=== PATIENT | female | born 1970 | race Caucasian/White ===

== ENCOUNTER 2016-05-24 16:47 | Emergency (ER) | payer MEDICAID ==
[~2016-05-24] VITALS: Ht 167.6 cm; Wt 131.5 kg
[~2016-05-24 16:47] MED LIST: ACHD5005 PO; AMBIEN PO; AMIT25TA9 PO; AMITRIPTYLINE PO; AMLO5TAB5 PO; ANXIETY MED; ATIVAN; AZIT-21 PO; BENZ100C18 PO; CELEXA PO; CEPH-38 PO; CEPH-507 PO; CEPH500C PO; CEPH500T PO; CITA10TA70 PO; CLIN300C3 PO; CLN150C PO; CLON0.5T60 PO; CLON1TAB36 PO; CYCL10TA45 PO; CYCL10TA9 PO; DICY20TA57 PO; DOXY100C2 PO; ESCI20TA2 PO; FLUC200T45 PO; FLUO20CA25 PO; FURO-124 PO; GABA600T2 PO; GNT.3OO351 OS; GUAI100L73; GUAI118L10 PO; HORMONE; HYDR-229 PO; HYDR-2890 PO; HYDR-3061 PO; HYDR-34; HYDR-34 PO; HYDR-3714 PO; HYDR-3720 PO; HYDR-3816 PO; HYDR-757 PO; HYDR118S10 PO; HYDR1CAP2 PO; HYDR1TAB PO; HYDR1TAB8 OP; HYOS0.1283 SL; IBUP-1780; KETO75CA PO; MELO7.5T PO; METR500T PO; MINO50CA2 PO; MIRT15TA6 PO; MPR22T TP; MUSCLE RELAXANT; NAPR-243 PO; NAPR220T66; NAPR550T PO; NF-ESOM40C PO; OLN5T PO; ONDA4TAB8 PO; ONDAN4ODT PO; OXYC-12; OXYC-12 PO; PARO20TA4 PO; POTA-51 PO; PRD20T PO; PROZA; QUET25TA33 PO; SULF-222 PO; SULF1TAB23 PO; SULF1TAB34; SULF1TAB35; SULF1TAB35 PO; SULF1TAB38 PO; SULF1TAB7 PO; TIZA4TAB55 PO; TRAM50TA2; TRAM50TA2 PO; TRAZ-144 PO; TRAZ150T42; TRAZODONE; TRM50T PO; [UNRECOGNIZED DRUG - OTHER]
[2016-05-24] MEDS ORDERED: TRIM/SULFAMETH 160/800 (SEPTRA DS) TAB PO STA (18:07)
[2016-05-24] MEDS ORDERED: RX-MUPIROCIN (BACTROBAN) 2% OINT 22 GM TUBE TOP STA (18:07)
[2016-05-24] MEDS ORDERED: LIDOCAINE/EPI 1%-1:100,000 (XYLOCAINE) 20ML INJ STA (18:12)
--- NOTE | 2016-05-24 18:18 | ED Integumentary General ---
General Chief Complaint: Skin/Wound Problems Stated Complaint: R HAND SPLINTER/REDNESS Nursing Triage Note: Pt reports she was reaching in her garbage disposal to get something and some tiny pieces of metal got stuck in her hand. There is an area on the dorsal side of pts hand that is reddened. She states she believes she still has a piece of metal stuck in it. Source: patient Exam Limitations: no limitations (ARLENE MCDONALD MD) History of Present Illness Time seen by provider: 17:50 Initial Comments Here with complaint of right hand dorsum pain at the webspace between the in the index finger. She was digging something out of the garbage disposal and states that she got metal in her hand. She reports taking 2 pieces of metal out already but the wound is getting worse. This occurred over the last few days. There is local area redness and pain. Timing/Duration: getting worse, other Severity: moderate Location: hands Possible Cause: other (foreign body) Associated Symptoms: change in skin texture edema swelling/mass/lumps ( ARLENE MCDONALD MD) Allergies and Home Medications Allergies Coded Allergies: Penicillins (Unverified Allergy, Mild, 03/26/08) dimenhydrinate (Verified Allergy, Mild, 07/17/12) morphine (Unverified Allergy, Mild, RASH, 08/29/08) prochlorperazine (Unverified Allergy, Mild, 07/23/09) oxycodone (Unverified Allergy, Unknown, 05/14/10) Uncoded Allergies: ANTI-EMETICS (Allergy, Mild, 03/26/08) ANTI-NAUSEA MEDICATIONS EXCEPT DRAMAMINE (Allergy, Mild, MAKE HER HAVE ANXIETY ATTACKS, 08/29/08) ANTIEMETICS (Allergy, Mild, 12/09/08) NAUSEA MEDS (Allergy, Mild, 12/01/08) Home Medications Amlodipine Besylate 5 Mg Tablet 5 MG PO DAILY (Reported) Cephalexin 500 Mg Capsule #15 500 MG PO TID Prescribed by: TAE CUNHA on 09/17/151851 Cephalexin 500 Mg Tablet #20 500 MG PO QID Prescribed by: ARLENE MCDONALD on 02/02/162004 Cephalexin Monohydrate 500 Mg Capsule #21 1 EACH PO TID Prescribed by: TAE CUNHA on 10/20/142012 Clindamycin Hcl 300 Mg Capsule #40 1 EACH PO Q6HR Prescribed by: SOMMER DU on 10/30/142144 Furosemide 40 Mg Tablet #6 40 MG PO BID Prescribed by: SOMMER DU on 08/01/152316 Gabapentin 600 Mg Tablet #90 600 MG PO TID (Reported) Hyoscyamine Sulfate 0.125 Mg Tab.subl #15 1-2 TAB SL Q4H Prescribed by: MARTHA CHASE on 02/25/15 232 Ibuprofen 800 Mg Tablet #90 (Reported) Naproxen Sodium 550 Mg Tablet #10 550 MG PO BID PRN PRN PAIN Prescribed by: WILLIE STEPHENSON on 12/20/141826 Paroxetine Hcl 20 Mg Tablet #30 20 MG PO DAILY (Reported) Potassium Chloride 20 Meq Tablet.er #3 20 MEQ PO DAILY Prescribed by: SOMMER DU on 08/01/152316 Sulfamethoxazole/Trimethoprim 1 Each Tablet #14 1 EACH PO BID Prescribed by: ARLENE MCDONALD on 02/12/161822 Sulfamethoxazole/Trimethoprim 1 Each Tablet #14 1 EACH PO BID Prescribed by: ARLENE MCDONALD on 05/24/16 182 Tizanidine Hcl 4 Mg Tablet #90 4 MG PO TID (Reported) Trazodone Hcl 50 Mg Tablet 50 MG PO HS (Reported) Trazodone Hcl 150 Mg Tablet #30 (Reported) Constitutional: see HPINo chills, No fever Respiratory: no symptoms reported Cardiovascular: no symptoms reported Skin: see HPI change in color lesions (ARLENE MCDONALD MD) Past Xyjskvr-Frqvha-Rbnyhx Hx Patient Social History Alcohol Use: Denies Use Recreational Drug Use: No Smoking Status: Current Everyday Smoker Type Used: Cigarettes Recent Foreign Travel: No Contact w/Someone Who Travel: No Recent Infectious Disease Expo: No Recent Hopitalizations: Yes (SEE PREV SURGERIES) Physical Abuse Screen: No Sexual Abuse: No (ARLENE MCDONALD MD) Immunizations Up To Date Tetanus Booster (TDap): Less than 5yrs Date of Pneumonia Vaccine: Jul 26, 2012 Date of Influenza Vaccine: Feb 13, 2014 (ARLENE MCDONALD MD) Seasonal Allergies Seasonal Allergies: No (ARLENE MCDONALD MD) Surgeries HX Surgeries: Yes (LUNG SURGERY FOR EMPYEMA, LEFT OVARIAN CYST REMOVAL) Surgeries: Appendectomy, Section, Hysterectomy, Oophorectomy, Tonsillectomy (ARLENE MCDONALD MD) Respiratory Hx Respiratory Disorders: Yes Respiratory Disorders: Asthma (ARLENE MCDONALD MD) Cardiovascular Hx Cardiac Disorders: Yes Cardiac Disorders: Hypertension (ARLENE MCDONALD MD) Neurological Hx Neurological Disorders: No (ARLENE MCDONALD MD) Reproductive System Hx Reproductive Disorders: Yes (MULTIPLE OVARIAN CYSTS. 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 (ARLENE MCDONALD MD) Genitourinary Hx Genitourinary Disorders: No (ARLENE MCDONALD MD) Gastrointestinal Hx Gastrointestinal Disorders: Yes Gastrointestinal Disorders: Gastroesophageal Reflux, Irritable Bowel (ARLENE MCDONALD MD) Musculoskeletal Hx Musculoskeletal Disorders: Yes Musculoskeletal Disorders: Degenerate Disk Disease, Chronic Back Pain (ARLENE MCDONALD MD) Endocrine Hx Endocrine Disorders: No (ARLENE MCDONALD MD) HEENT HX ENT Disorders: Yes (WEARS GLASSES) (ARLENE MCDONALD MD) Cancer Hx Cancer: No (ARLENE MCDONALD MD) Psychosocial Hx Psychiatric Problems: Yes Behavioral Health Disorders: Sleep Difficulties, Depression (ARLENE MCDONALD MD) Integumentary HX Skin/Integumentary Disorder: Yes (ABSCESSES, MULTIPLE WOUND INFECTIONS, STAPH) (ARLENE MCDONALD MD) Blood Transfusions Hx Blood Disorders: No (ARLENE MCDONALD MD) Reviewed Nursing Assessment Reviewed/Agree w Nursing PMH: Yes (ARLENE MCDONALD MD) Family Medical History Significant Family History: No Pertinent Family Hx Family Medial History: Diabetes mellitus 19 MOTHER Headache disorder G8 SISTER Myocardial infarction 19 MOTHER STROKE 19 MOTHER (ARLENE MCDONALD MD) Family Medial History: Diabetes mellitus 19 MOTHER Headache disorder G8 SISTER Myocardial infarction 19 MOTHER STROKE 19 MOTHER (SOMMER DU) Physical Exam Vital Signs Vital Sign - Last 12Hours 05/24/16 17:43 Temp 98.9 Pulse 115 Resp 20 B/P 138/76 Pulse Ox 96 O2 Delivery Room Air (SOMMER DU) Vital Signs Capillary Refill : Less Than 3 Seconds (ARLENE MCDONALD MD) General Appearance: WD/WN no apparent distress Cardiovascular: regular rate, rhythm no murmur Respiratory: lungs clear normal breath sounds Extremities: normal range of motion swelling (right hand dorsum at with thumb and first finger) Skin: warm/dry Skin Problem Location: upper extremities (right hand) Skin Problem Character: erythema, lesion, swelling, tenderness, warm (ARLENE MCDONALD MD) I&D : Site: rt hand Blade Size: 11 I & D Procedure: betadine prep sterile drapes applied sterile dressing applied Progress 2x0.5 cm elliptical incision made to completely excise wound and foreign body. Small sharp metallic foreign body removed w/o difficulty. Skin edges reapproximated with 4-0 Ethilon suture. Blood loss minimal. Patient tolerated the procedure well. (SOMMER DU) Laceration Repair : Suture Size: 4-0 (ARLENE MCDONALD MD) Progress/Results/Core Measures Results/Orders My Orders Orders-SOMMER DU Hand, Right, 2 Views (05/24/16 19:42) (SOMMER DU) Vital Signs/I&O Vital Sign - Last 12Hours 05/24/16 05/24/16 05/24/16 17:43 19:28 20:03 Temp 98.9 98.9 98.9 Pulse 115 102 Resp 20 20 B/P 138/76 Pulse Ox 96 96 O2 Delivery Room Air (SOMMER DU) Blood Pressure Mean: 96 Progress Note : Progress Note Seen and evaluated. X-ray right hand. Foreign body noted. Incision and drainage as well as foreign body evaluation by Sommer ROSALES. Bactrim DS one tab by mouth. Mupirocin ointment over wound and Band-Aid. Discharged home with return precautions. Patient verbalize understanding instructions and agreement with plan. (ARLENE MCDONALD MD) Diagnostic Imaging Diagonstic Imaging: Xray Plain Films/CT/US/NM/MRI: hand Comments VIA [facility]. [place], [place] NAME: PAULA SALAZAR MED REC#: [id number] PT STATUS: REG ER : 1970 PHYSICIAN: ARLENE MCDONALD MD ADMIT DATE: 05/24/16/ER Draft Date of Exam:05/24/16 HAND, RIGHT, 3 VIEWS INDICATION: Metallic foreign body COMPARISON: None FINDINGS: Three views of the right hand demonstrate a metallic foreign body adjacent to the first metacarpal. There is no bony involvement. No soft tissue gas. IMPRESSION: Metallic foreign body. Dictated on workstation # [id number] Dict: 05/24/16 1809 Trans: 05/24/16 1816 JACKSON [id number] Interpreted by: STEPHANIE RICK Electronically signed by: (ARLENE MCDONALD MD) Diagonstic Imaging: Xray Plain Films/CT/US/NM/MRI: hand (post FB removal) Comments IMPRESSION: The small foreign body in the soft tissues of the first metacarpal seen previously has been removed. There is no acute abnormality identified. Dictated by: Dictated on workstation # [id number] Reviewed: Reviewed by Me (radiology report reviewed) (SOMMER DU) Departure Communication Progress Notes Diagnostic findings discussed with the patient. Proceed with discharge to home. (SOMMER DU) Impression Impression: Primary Impression: Foreign body of skin of hand Qualified Code: S60.551A - Superficial foreign body of right hand, 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 Additional Impression: Cellulitis of hand, right Disposition: HOME, SELF-CARE Condition: Improved Departure-Patient Inst. Decision time for Depature: 18:20 (ARLENE MCDONALD MD) Referrals: [facility] (PCP/Family) Primary Care Physician Patient Instructions: Cellulitis (Skin Infection), Child (DC) Add. Discharge Instructions: All discharge instructions reviewed with patient and/or family. Voiced understanding. Take medications as directed. Use antibiotic ointment over wound twice daily for the next week. Cover wound with a Band-Aid. Follow-up with your Dr. in a few days for recheck. Return for worse pain, swelling, red streaks up the hand or arm, fever or other concerns as needed. Scripts Sulfamethoxazole/Trimethoprim (Sulfamethoxazole-Tmp Ds Tablet)1 Each Tablet1 Each PO BID #14 TAB Prov:ARLENE MCDONALD MD 05/24/16 Images Extremities-Upper 1 - Erythema and swelling (ARLENE MCDONALD MD) ARELNE MCDONALD MD May 24, 2016 18:18 SOMMER DU May 24, 2016 19:02
[2016-05-24] MEDS ORDERED: SULF-222 PO (18:22)
[2016-05-24 20:03] VITALS: BP 128/72
--- NOTE | 2016-05-24 20:11 | Diagnostic Imaging Report ---
Right hand. INDICATION: Foreign body. 2 views were obtained. FINDINGS: The exam performed earlier today noted a small metallic foreign body in the soft tissues adjacent to the first metacarpal. Reportedly, in the interval since exam, the metallic foreign body has been removed. On this exam, there is no sign of a radiopaque foreign body. There is no fracture or acute bony abnormality identified and the overall appearance of the hand is otherwise unchanged. IMPRESSION: The small foreign body in the soft tissues of the first metacarpal seen previously has been removed. There is no acute abnormality identified. Dictated by: Dictated on workstation # [id number]
[2016-07-22] MEDS ORDERED: SULF1TAB35 PO (20:15)
== END 2016-05-24 20:03 | disposition home or self-care (01) ==
LOC: EDUNIT# 16:47 → ER 16:48
DX: S60.551A Superficial foreign body of right hand, 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 (principal); L03.113 Cellulitis of right upper limb; W22.8XXA Striking against or struck by other objects, 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; Y92.010 Kitchen of single-family (private) house as the place of occurrence of the external cause; Y93.E9 Activity, other interior property and clothing maintenance; Y99.8 Other external cause status
CPT/HCPCS: 73120; 73130

== ENCOUNTER 2016-06-07 22:57 | Observation (INO) | payer MEDICAID ==
[~2016-06-07] VITALS: Ht 167.6 cm; Wt 137.4 kg
[2016-06-07] MEDS ORDERED: LACTATED RINGERS 1,000 ML IV ONE (23:07)
[2016-06-07] MEDS ORDERED: LORazepam INJ 2 MG/ML (ATIVAN) VIAL ONE (23:15)
[2016-06-07 23:19] LABS: BASOPHILS # (AUTO) 0.1 10^3/uL (0.0-0.1); BASOPHILS % (AUTO) 1 % (0-10); EOSINOPHILS # (AUTO) 0.3 10^3/uL (0.0-0.3); EOSINOPHILS % (AUTO) 2 % (0-10); LYMPHOCYTES # (AUTO) 4.2 X 10^3 (1.0-4.0); LYMPHOCYTES % (AUTO) 31 % (12-44); MEAN CORPUSCULAR HEMOGLOBIN 25 PG (25-34); MEAN CORPUSCULAR HGB CONC 31 G/DL (32-36); MEAN CORPUSCULAR VOLUME 81 FL (80-99); MEAN PLATELET VOLUME 10.8 FL (7.4-10.4); MONOCYTES # (AUTO) 1.5 X 10^3 (0.0-1.0); MONOCYTES % (AUTO) 11 % (0-12); NEUTROPHILS # (AUTO) 7.3 X 10^3 (1.8-7.8); NEUTROPHILS % (AUTO) 54 % (42-75); PLATELET COUNT 370 10^3/uL (130-400); RED BLOOD COUNT 5.18 10^6/uL (4.35-5.85); RED CELL DISTRIBUTION WIDTH 18.7 % (10.0-14.5); WHITE BLOOD COUNT 13.5 10^3/uL (4.3-11.0)
[2016-06-07] MEDS ORDERED: LORazepam INJ 2 MG/ML (ATIVAN) VIAL IVP ONE (23:30)
[2016-06-07 23:39] LABS: ALANINE AMINOTRANSFERASE 26 U/L (0-55); ALBUMIN 4.4 G/DL (3.2-4.5); ANION GAP 20 MMOL/L (5-14); ASPARTATE AMINO TRANSFERASE 23 U/L (5-34); BILIRUBIN,TOTAL 0.2 MG/DL (0.1-1.0); BLOOD UREA NITROGEN 12 MG/DL (7-18); BUN/CREATININE RATIO 11; CALCIUM 9.6 MG/DL (8.5-10.1); CARBON DIOXIDE 16 MMOL/L (21-32); CHLORIDE 102 MMOL/L (98-107); CREATINE KINASE 95 U/L (29-168); CREATININE SERUM 1.09 MG/DL (0.60-1.30); GFR ESTIMATED 55; GLUCOSE 110 MG/DL (70-105); MAGNESIUM 2.1 MG/DL (1.8-2.4); POTASSIUM 3.7 MMOL/L (3.6-5.0); SALICYLATE < 5.0 MG/DL (5.0-20.0); SODIUM 138 MMOL/L (135-145); TOTAL PROTEIN 7.7 G/DL (6.4-8.2)
[2016-06-07 23:50] LABS: BILIRUBIN,URINE NEGATIVE (NEGATIVE); KETONES,URINE NEGATIVE (NEGATIVE); LEUKOCYTE ESTERASE ,URINE NEGATIVE (NEGATIVE); NITRITE,URINE NEGATIVE (NEGATIVE); PH,URINE 6 (5-9); PROTEIN,URINE NEGATIVE (NEGATIVE); UROBILINOGEN,URINE NORMAL (NORMAL)
[2016-06-07 23:51] LABS: SQUAMOUS EPITHELIAL CELL,UR RARE /HPF
--- NOTE | 2016-06-07 23:54 | ED General ---
General Chief Complaint: Neuro-Stroke Like Symptoms Stated Complaint: DIZZINESS Nursing Triage Note: PT TO ED ROOM 6 PER EMS AT 2305 WITH C/O DIZZINESS, FALLS. PT HAD APPROX 20 SECOND SEIZURE ONCE ON THE ED BED. VSS. DR CHASE AT BEDSIDE. Nursing Sepsis Screen: No Definite Risk Source of Information: EMS, Old Records (ALL PMH IS FROM OLD RECORDS, PT IS UNABLE TO TALK AT THIS TIME) Exam Limitations: Other (PT UNABLE TO GIVE ANY INFORMATION) History of Present Illness Time Seen by Provider: 22:59 Initial Comments PT ARRIVES VIA EMS FROM HOME PER EMS, PT WENT TO THE KITCHEN AND "BLACKED OUT" ( NOT WITNESSED), THEN GOT UP AND WENT TO THE BATHROOM AND "BLACKED OUT" AGAIN "FOR A COUPLE OF SECONDS" ( AGAIN NOT WITNESSED, BUT THIS IS WHAT PT TOLD EMS STAFF) THEN APPARENTLY PT HAD A POSSIBLE SEIZURE WITNESSED BY DAUGHTER, UNKNOWN DURATION. NO HISTORY OF SYNCOPE OR SEIZURES NO APPARENT INJURIES FROM THESE EPISODES PT HAS BEEN "SHAKING AND STUTTERING" FOR THE LAST 2 DAYS PT WAS STARTED ON A NEW MUSCLE RELAXANT "3 DAYS AGO" PER PT--EMS BRINGS IN A BOTTLE OF ORPHENADRINE 100 MG ER DATED 05/25/16 FOR #56 IS EMPTY ( 30 PILLS UNACCOUNTED FOR) , WHICH IS PT'S NEW MEDICATION FOR CHRONIC BACK PAIN OTHER BOTTLES BROUGHT IN WITH PT SHOW 8 SEROQUEL AND 5 NORTRIPTYLINE UNACCOUNTED FOR WELL PT HAS A BOTTLE OF CLONIDINE FOR #90 TO BE TAKEN TID, WRITTEN ON 06/02/16--ONLY 7 PILLS LEFT IN BOTTLE ( 72 PILLS UNACCOUNTED FOR) EMPTY BOTTLE OF CLONAZEPAM #30 WRITTEN ON 05/05/17--NO NEW BOTTLE HAS BEEN BROUGHT IN WITH PT, SO HAS BEEN OUT OF IT FOR AT LEAST 2 DAYS NO OTHER INFORMATION IS AVAILABLE. 14 Y.O. DAUGHTER ARRIVES WITH PT BUT CANNOT OFFER ANY OTHER RELEVANT INFORMATION 2300--PT HAVING FULL TONIC-CLONIC SEIZURE, LASTING 20 SECONDS PT IS POST ICTAL WITH SNOROUS BREATHING. O2/NC AT 2L PLACED ON PT. NO CYANOSIS OR HYPOXIA NOTED. 2309--PT AWAKE, BUT IS POST ICTAL, IS NOT TALKING OR ANSWERING QUESTIONS, AND IS NOT FOLLOWING COMMANDS, APPEARS CONFUSED. GENERALIZED TREMULOUSNESS RESUMES, BUT PT REMAINS AWAKE. PCP: [facility], FULLERETTE LONNIE MADL Allergies and Home Medications Allergies Coded Allergies: Penicillins (Unverified Allergy, Mild, 03/26/08) dimenhydrinate (Verified Allergy, Mild, 07/17/12) morphine (Unverified Allergy, Mild, RASH, 08/29/08) prochlorperazine (Unverified Allergy, Mild, 07/23/09) oxycodone (Unverified Allergy, Unknown, 05/14/10) Uncoded Allergies: ANTI-EMETICS (Allergy, Mild, 03/26/08) ANTI-NAUSEA MEDICATIONS EXCEPT DRAMAMINE (Allergy, Mild, MAKE HER HAVE ANXIETY ATTACKS, 08/29/08) ANTIEMETICS (Allergy, Mild, 12/09/08) NAUSEA MEDS (Allergy, Mild, 12/01/08) Home Medications Amlodipine Besylate 5 Mg Tablet 5 MG PO DAILY (Reported) Cetirizine HCl 10 Mg Tab.chew 10 MG PO DAILY (Reported) Clonazepam 1 Mg Tablet 1 MG PO DAILY (Reported) Clonidine HCl 0.1 Mg Tablet 0.1 MG PO TID (Reported) Gabapentin 600 Mg Tablet #90 600 MG PO TID (Reported) Hydrochlorothiazide 25 Mg Tablet 25 MG PO DAILY (Reported) Lovastatin 20 Mg Tablet 20 MG PO DAILY (Reported) Meloxicam 15 Mg Tablet 15 MG PO DAILY (Reported) Nortriptyline HCl 50 Mg Capsule 50 MG PO DAILY (Reported) Omeprazole 40 Mg Capsule.dr 40 MG PO DAILY (Reported) Orphenadrine Citrate 100 Mg Tablet.er 100 MG PO BID (Reported) Paroxetine HCl 40 Mg Tablet 40 MG PO DAILY (Reported) Quetiapine Fumarate 100 Mg Tablet 100 MG PO BID (Reported) Quetiapine Fumarate 300 Mg Tablet 300 MG PO HS (Reported) Constitutional: see HPI (PT UNABLE TO GIVE ANY INFORMATION) Psychiatric/Neurological: See HPI Past Roswmqc-Fidvor-Gkrxjf Hx Patient Social History Type Used: Cigarettes Recent Foreign Travel: No Contact w/Someone Who Travel: No Recent Infectious Disease Expo: No Recent Hopitalizations: No Immunizations Up To Date Tetanus Booster (TDap): Less than 5yrs Date of Pneumonia Vaccine: Jul 26, 2012 Date of Influenza Vaccine: Feb 13, 2014 Seasonal Allergies Seasonal Allergies: No Surgeries HX Surgeries: Yes (LUNG SURGERY FOR EMPYEMA, LEFT OVARIAN CYST REMOVAL; HYST/ BSO) Surgeries: Appendectomy, Section, Hysterectomy, Oophorectomy, Tonsillectomy Respiratory Hx Respiratory Disorders: Yes (EMPYEMA--S/P LUNG SURGERY FOR REMOVAL) Respiratory Disorders: Asthma Cardiovascular Hx Cardiac Disorders: Yes Cardiac Disorders: Hypertension Neurological Hx Neurological Disorders: No Reproductive System Hx Reproductive Disorders: Yes (MULTIPLE OVARIAN CYSTS. 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 Genitourinary Hx Genitourinary Disorders: No Gastrointestinal Hx Gastrointestinal Disorders: Yes Gastrointestinal Disorders: Gastroesophageal Reflux, Irritable Bowel Musculoskeletal Hx Musculoskeletal Disorders: Yes Musculoskeletal Disorders: Degenerate Disk Disease, Chronic Back Pain Endocrine Hx Endocrine Disorders: Yes (MORBID OBESTIY) HEENT HX ENT Disorders: Yes (WEARS GLASSES) Cancer Hx Cancer: No Psychosocial Hx Psychiatric Problems: Yes Behavioral Health Disorders: Sleep Difficulties, Anxiety, Depression Integumentary HX Skin/Integumentary Disorder: Yes (ABSCESSES, MULTIPLE WOUND INFECTIONS, STAPH) Blood Transfusions Hx Blood Disorders: No Family Medical History Significant Family History: No Pertinent Family Hx Family Medial History: Diabetes mellitus 19 MOTHER Headache disorder G8 SISTER Myocardial infarction 19 MOTHER STROKE 19 MOTHER Physical Exam Vital Signs Vital Sign - Last 12Hours 06/07/16 06/07/16 23:05 23:35 Pulse 67 Resp 18 Pulse Ox 96 O2 Delivery Nasal Cannula O2 Flow Rate 2 Capillary Refill : Less Than 3 Seconds General Appearance: Obese (MORBIDLY) Other (GENERALIZED TREMORS, BUT PT ABLE TO ASSIST IN TRANSFERRING FROM EMS CART TO ER CART, AND PT ABLE TO ADJUST SELF ON ER CART ON HER OWN. PT'S HEAD IS COMPLETELY SHAVED. ) HEENT: PERRL/EOMI Respiratory: Normal Breath Sounds No Accessory Muscle Use No Respiratory Distress Cardiovascular: Regular Rate, Rhythm No Murmur Gastrointestinal: Soft Extremity: No Pedal Edema Neurologic/Psychiatric: Other (GENERALIZED TONIC-CLONIC SEIZURE SOON PT ARRIVES WITH TYPICAL POST ICTAL SYMPTOMS/COURSE) Skin: Normal Color Warm/Dry Laceration Repair : Suture Size: 4-0 Progress/Results/Core Measures Results/Orders Lab Results Laboratory Tests Test 06/07/16 23:10 06/07/16 23:20 Range/Units Acetaminophen Level < 10 L 10-30 UG/ML Alanine Aminotransferase (ALT/SGPT) 26 0-55 U/L Albumin 4.4 3.2-4.5 G/DL Alkaline Phosphatase 141 H 40-136 U/L Anion Gap 20 H 5-14 MMOL/L Aspartate Amino Transf (AST/SGOT) 23 5-34 U/L BUN/Creatinine Ratio 11 Basophils # (Auto) 0.1 0.0-0.1 10^3/uL Basophils (%) (Auto) 1 0-10 % Blood Urea Nitrogen 12 7-18 MG/DL Calcium Level 9.6 8.5-10.1 MG/DL Carbon Dioxide Level 16 L 21-32 MMOL/L Chloride Level 102 98-107 MMOL/L Creatine Kinase MB 0.7 <6.6 NG/ML Creatinine 1.09 0.60-1.30 MG/DL Eosinophils # (Auto) 0.3 0.0-0.3 10^3/uL Eosinophils (%) (Auto) 2 0-10 % Estimat Glomerular Filtration Rate 55 Glucose Level 110 H 70-105 MG/DL Hematocrit 42 35-52 % Hemoglobin 12.8 11.5-16.0 G/DL Lymphocytes # (Auto) 4.2 H 1.0-4.0 X 10^3 Lymphocytes (%) (Auto) 31 12-44 % Magnesium Level 2.1 1.8-2.4 MG/DL Mean Corpuscular Hemoglobin 25 25-34 PG Mean Corpuscular Hemoglobin Concent 31 L 32-36 G/DL Mean Corpuscular Volume 81 80-99 FL Mean Platelet Volume 10.8 H 7.4-10.4 FL Monocytes # (Auto) 1.5 H 0.0-1.0 X 10^3 Monocytes (%) (Auto) 11 0-12 % Neutrophils # (Auto) 7.3 1.8-7.8 X 10^3 Neutrophils (%) (Auto) 54 42-75 % Platelet Count 370 130-400 10^3/uL Potassium Level 3.7 3.6-5.0 MMOL/L Red Blood Count 5.18 4.35-5.85 10^6/uL Red Cell Distribution Width 18.7 H 10.0-14.5 % Salicylates Level < 5.0 L 5.0-20.0 MG/DL Serum Alcohol < 10 <10 MG/DL Serum Test, Qualitative NEGATIVE NEGATIVE Sodium Level 138 135-145 MMOL/L TSH [place] Testing 3.07 0.35-4.94 UIU/ML Total Bilirubin 0.2 0.1-1.0 MG/DL Total Creatine Kinase 95 29-168 U/L Total Protein 7.7 6.4-8.2 G/DL Troponin I < 0.30 <0.30 NG/ML White Blood Count 13.5 H 4.3-11.0 10^3/uL Ur Tricyclic Antidepressants Screen POSITIVE H NEGATIVE Urine Amphetamines Screen NEGATIVE NEGATIVE Urine Bacteria NEGATIVE /HPF Urine Barbiturates Screen NEGATIVE NEGATIVE Urine Benzodiazepines Screen NEGATIVE NEGATIVE Urine Bilirubin NEGATIVE NEGATIVE Urine Cannabinoids Screen NEGATIVE NEGATIVE Urine Casts NONE /LPF Urine Clarity CLEAR Urine Cocaine Screen NEGATIVE NEGATIVE Urine Color YELLOW Urine Crystals NONE /LPF Urine Culture Indicated NO Urine Glucose (UA) NEGATIVE NEGATIVE Urine Ketones NEGATIVE NEGATIVE Urine Leukocyte Esterase NEGATIVE NEGATIVE Urine Methadone Screen NEGATIVE NEGATIVE Urine Methamphetamines Screen NEGATIVE NEGATIVE Urine Mucus NEGATIVE /LPF Urine Nitrite NEGATIVE NEGATIVE Urine Opiates Screen NEGATIVE NEGATIVE Urine Oxycodone Screen NEGATIVE NEGATIVE Urine Phencyclidine Screen NEGATIVE NEGATIVE Urine Propoxyphene Screen NEGATIVE NEGATIVE Urine Protein NEGATIVE NEGATIVE Urine RBC NONE /HPF Urine RBC (Auto) NEGATIVE NEGATIVE Urine Specific [place] 1.010 L 1.016-1.022 Urine Squamous Epithelial Cells RARE /HPF Urine Urobilinogen NORMAL NORMAL MG/DL Urine WBC NONE /HPF Urine pH 6 5-9 My Orders Orders-MARTHA CHASE DO Saline Lock/Iv-Start (06/07/16 23:07) Ekg Tracing (06/07/16 23:07) Catheter(Urinary) Insert & Ass 03,15 (06/07/16 23:07) O2 (06/07/16 23:07) Monitor-Rhythm Ecg Trace Only (06/07/16 23:07) Ct Head Wo (06/07/16 23:07) Acetaminophen (06/07/16 23:07) Alcohol (06/07/16 23:07) Cbc With Automated Diff (06/07/16 23:07) Comprehensive Metabolic Panel (06/07/16 23:07) Creatine Kinase (06/07/16 23:07) Creatine Kinase Mb (06/07/16 23:07) Drug Screen Stat (Urine) (06/07/16 23:07) Hcg,Qualitative Serum (06/07/16 23:07) Magnesium (06/07/16 23:07) Thyroid Analyzer (06/07/16 23:07) Troponin I (06/07/16 23:07) Ua Culture If Indicated (06/07/16 23:07) Chest 1 View, Ap/Pa Only (06/07/16 23:07) Saline Lock/Iv-Start (06/07/16 23:07) Lactated Ringers (Lr 1000 Ml Iv Solution (06/07/16 23:07) Salicylate (06/07/16 23:07) Lorazepam Injection (Ativan Injection) (06/07/16 23:30) Lorazepam Injection (Ativan Injection) (06/07/16 23:15) Medications Given in ED Current Medications Medications Dose Ordered Sig/Jesus Route Start Time Stop Time Status Last Admin Dose Admin Lactated Ringer's 1,000 ml @ 0 mls/hr Q0M ONCE IV 06/07/16 23:07 06/07/16 23:10 DC 06/07/16 23:27 999 MLS/HR Lorazepam 2 mg ONCE ONCE IVP 06/07/16 23:30 06/07/16 23:31 DC 06/07/16 23:27 2 MG Vital Signs/I&O Vital Sign - Last 12Hours 06/07/16 06/07/16 23:05 23:35 Pulse 67 Resp 18 B/P Pulse Ox 96 96 O2 Delivery Nasal Cannula Nasal Cannula O2 Flow Rate 2 2 Progress Note : Progress Note 2310--PT AWAKE BUT IS POST ICTAL--NOT TALKING OR ANSWERING QUESTIONS, AND NOT FOLLOWING COMMANDS, AND APPEARS TO BE CONFUSED. PT WITH GENERALIZED TREMULOUSNESS--GIVEN ATIVAN 2 MG 2357--PT NOW AWAKE AND TALKING APPROPRIATELY AND FOLLOWING COMMANDS. ONLY C/O CHRONIC LOWER BACK PAIN ECG Initial ECG Impression Time: 23:12 Initial ECG Rate: 110 Initial ECG Rhythm: S.Tach Initial ECG Impression: Nonspecific Changes Initial ECG Comparisson: Unchanged Diagnostic Imaging Comments CXR--NO ACUTE PROCESS, PENDING RADIOLOGIST REVIEW CT HEAD--NO ACUTE PROCESS, PER [facility] VIA FAX @ [phone] Reviewed: Reviewed by Me Departure Communication Progress Notes 0026--SPOKE WITH DR. Basilio SIMONS, ACCEPTS PT FOR ADMIT. Impression Impression: Primary Impression: New onset seizure Additional Impression: SUSPECTED DRUG OVERDOSE Disposition: ADMITTED INPATIENT Condition: Improved Decision to Admit Reason: Admit from ER (General) Decision to Admit/Date: Jun 08, 2016 Time/Decision to Admit Time: 00:30 Departure-Patient Inst. Ref[place]: [facility] [place] Primary Care Physician MARTHA CHASE DO Jun 07, 2016 23:54
[2016-06-07 23:57] LABS: ACETAMINOPHEN < 10 UG/ML (10-30); ALCOHOL < 10 MG/DL (<10)
[2016-06-07 23:59] LABS: TROPONIN I < 0.30 NG/ML (<0.30)
[2016-06-08] VITALS (12 sets, daily range): BP systolic 129–152; BP diastolic 71–92
[2016-06-08] MEDS ORDERED: ORPH100T PO (00:02)
[2016-06-08] MEDS ORDERED: CLON0.1T PO (00:02)
[2016-06-08] MEDS ORDERED: OMEP40CA36 PO (00:02)
[2016-06-08] MEDS ORDERED: HYDR25TA4 PO (00:02)
[2016-06-08] MEDS ORDERED: QUET300T44 PO (00:02)
[2016-06-08] MEDS ORDERED: QUET100T69 PO (00:02)
[2016-06-08] MEDS ORDERED: LOVA20TA2 PO (00:02)
[2016-06-08] MEDS ORDERED: CETI10TA23 PO (00:02)
[2016-06-08] MEDS ORDERED: CLON1TAB3 PO (00:02)
[2016-06-08] MEDS ORDERED: MELO15TA39 PO (00:02)
[2016-06-08] MEDS ORDERED: PARO40TA3 PO (00:02)
[2016-06-08] MEDS ORDERED: NORT50CA PO (00:02)
[2016-06-08] MEDS ORDERED: LORazepam INJ 2 MG/ML (ATIVAN) VIAL IVP PRN (03:15)
[2016-06-08] MEDS: LACTATED RINGERS 1,000 ML IV SCH ×2 (03:15→09:55)
[2016-06-08 04:26] LABS: BASOPHILS # (AUTO) 0.1 10^3/uL (0.0-0.1); BASOPHILS % (AUTO) 1 % (0-10); EOSINOPHILS # (AUTO) 0.2 10^3/uL (0.0-0.3); EOSINOPHILS % (AUTO) 2 % (0-10); LYMPHOCYTES # (AUTO) 2.4 X 10^3 (1.0-4.0); LYMPHOCYTES % (AUTO) 26 % (12-44); MEAN CORPUSCULAR HEMOGLOBIN 25 PG (25-34); MEAN CORPUSCULAR HGB CONC 31 G/DL (32-36); MEAN CORPUSCULAR VOLUME 80 FL (80-99); MEAN PLATELET VOLUME 11.5 FL (7.4-10.4); MONOCYTES # (AUTO) 0.9 X 10^3 (0.0-1.0); MONOCYTES % (AUTO) 9 % (0-12); NEUTROPHILS # (AUTO) 5.7 X 10^3 (1.8-7.8); NEUTROPHILS % (AUTO) 62 % (42-75); PLATELET COUNT 309 10^3/uL (130-400); RED CELL DISTRIBUTION WIDTH 18.7 % (10.0-14.5); WHITE BLOOD COUNT 9.3 10^3/uL (4.3-11.0)
[2016-06-08] MEDS ORDERED: CATHETER FLUSH 10 ML SYR IV PRN (04:45)
[2016-06-08 04:49] LABS: ANION GAP 12 MMOL/L (5-14); BLOOD UREA NITROGEN 11 MG/DL (7-18); BUN/CREATININE RATIO 13; CALCIUM 9.1 MG/DL (8.5-10.1); CARBON DIOXIDE 21 MMOL/L (21-32); CHLORIDE 106 MMOL/L (98-107); CREATININE SERUM 0.86 MG/DL (0.60-1.30); GFR ESTIMATED > 60; GLUCOSE 104 MG/DL (70-105); PHOSPHORUS 3.8 MG/DL (2.3-4.7); POTASSIUM 3.8 MMOL/L (3.6-5.0); SODIUM 139 MMOL/L (135-145)
[2016-06-08] MEDS ORDERED: POTASSIUM CL 10MEQ/50ML IVPB 50 ML IV SCH (06:00)
[2016-06-08] MEDS ORDERED: CATHETER FLUSH 10 ML SYR IV SCH (06:00)
[2016-06-08] MEDS ORDERED: MAGNESIUM 1 GM/100 ML IVPB 100 ML IV SCH (06:00)
[2016-06-08] MEDS ORDERED: KCL 20 MEQ TAB (K-DUR) PO SCH (06:00)
--- NOTE | 2016-06-08 06:36 | Diagnostic Imaging Report ---
PROCEDURE: CT head without contrast. TECHNIQUE: Multiple contiguous axial images were obtained through the brain without the use of intravenous contrast. INDICATION: Seizure. COMPARISON: CT head without contrast 09/17/2015. FINDINGS: No intracranial hemorrhage, mass effect, hydrocephalus or extra-axial fluid collections. No CT evidence of acute infarction. Osseous structures are intact. The orbits and paranasal sinuses are unremarkable. IMPRESSION: No acute intracranial CT findings. Dictated by: Dictated on workstation # [id number]
--- NOTE | 2016-06-08 06:38 | Diagnostic Imaging Report ---
EXAM: CHEST 1 VIEW, AP/PA ONLY INDICATION: Seizure. COMPARISON: Chest radiographs 08/01/2015. FINDINGS: Normal heart size and pulmonary vascularity. Nonspecific small nodular opacities in the right lateral lung have progressed since the prior exam. No pleural effusion or pneumothorax. Osseous structures are unremarkable. IMPRESSION: Mildly increasing nodular opacities in the right lateral lung could represent an acute infectious or inflammatory process. Dictated by: Dictated on workstation # [id number]
[2016-06-08] MEDS ORDERED: CETI10TA17 PO (09:32)
[2016-06-08] MEDS ORDERED: ALBU2.5V4 NEB (09:39)
[2016-06-08] MEDS ORDERED: TIOT18CA2 INH (09:39)
[2016-06-08] MEDS ORDERED: ASPI1TAB22 PO (09:39)
--- NOTE | 2016-06-08 13:12 | Discharge Instructions ---
Discharge [facility] Discharge Medications New, Converted or Re-Newed RX: Other Continued Medications: Albuterol Sulfate (Albuterol Sulfate) 2.5 Mg/3 Ml Vial.neb 2.5 MG NEB TID PRN SHORTNESS OF BREATH EA Amlodipine Besylate (Norvasc) 5 Mg Tablet 5 MG PO HS TAB Cetirizine HCl (Cetirizine HCl) 10 Mg Tablet 10 MG PO DAILY TAB Clonidine HCl (Clonidine HCl) 0.1 Mg Tablet 0.1 MG PO TID TAB Hydrochlorothiazide (Hydrochlorothiazide) 25 Mg Tablet 25 MG PO DAILY PRN SWELLING TAB Lovastatin (Lovastatin) 20 Mg Tablet 20 MG PO HS TAB Meloxicam (Meloxicam) 15 Mg Tablet 15 MG PO HS TAB Omeprazole (Omeprazole) 40 Mg Capsule.dr 40 MG PO HS CAP Paroxetine HCl (Paroxetine HCl) 40 Mg Tablet 40 MG PO HS TAB Quetiapine Fumarate (Quetiapine Fumarate) 300 Mg Tablet 300 MG PO HS TAB Tiotropium [place] (Spiriva) 1 Inh Aerp 1 CAP INH DAILY EA Discontinued Medications: Aspirin/Acetaminophen/Caffeine (Excedrin Migraine Caplet) 1 Each Tablet 2 TAB PO DAILY PRN MIGRAINE TAB Clonazepam (Clonazepam) 1 Mg Tablet 1 MG PO DAILY TAB Gabapentin (Neurontin) 600 Mg Tablet 600 MG PO TID TAB Nortriptyline HCl (Nortriptyline HCl) 50 Mg Capsule 50 MG PO HS CAP Orphenadrine Citrate (Orphenadrine Citrate) 100 Mg Tablet.er 100 MG PO BID TAB Quetiapine Fumarate (Quetiapine Fumarate) 100 Mg Tablet 100 MG PO BID PRN ANXIETY TAB Patient Instructions Goal/Follow Up Appt: DR JOHNSON JUN 09 AT 10AM LONNIE WIGGINS APRN JUN 15 AT 0800 Patient Instructions: PLEASE REVIEW YOUR NEW MEDICATION LIST. YOUR SEIZURES WERE LIKELY CAUSED BY TAKING MEDICATIONS TOO MUCH OR AT THE WRONG TIMES. YOU NEED TO BUY A PILL KEEPER TO HELP KNOW WHEN TO TAKE YOUR MEDS. YOU WILL SEE DR JOHNSON TOMORROW, AND SHE WILL THEN HELP YOU GET TO YOUR REGULAR TELEPSYCH PROVIDER. Return to The Hospital For: INCREASED SEIZURES, LETHARGY Activity & Diet Discharge Diet: Low Sodium Diet Activity as Tolerated: Yes Copy Copies To 1: MARILUZ PARRA APRN, MD Jun 08, 2016 1:12 pm
[2016-06-08] MEDS ORDERED: FLU TRIvalent (5 YOA+) 2016-17 (AFLURIA) 0.5 ML IM ONE (15:30)
--- NOTE | 2016-06-14 19:16 | Short Stay Summary ---
HPI History of Present Illness: Cande was admitted to hospital after presenting with multiple seizures the night of admission. THere is a discrepancy as to whether she is taking too many of her meds or not enough. Her daughter found multiple bottles with missing pills in them. However, this morning, Cande says that maybe a nephew took some of her pills but that otherwise she takes them appropriately. Cande tells me today that she has not had seizures before. She did not hurt herself or hit her head when she had the seizure. She did have tonic clonic movement with them. She did not remember urinating or stooling during molly seizure. No recent illnesses. Follows with [facility] for PCP and psych meds. Of note, she has recently shaved her head, but she attributes that to having recently "fried" her hair while tyring to highlight it. Source: patient Exam Limitations: no limitations Date seen by provider: Jun 08, 2016 Attending Physician Mariluz Armenta MD PCP [facility] [place] Consult Date of Admission Jun 08, 2016 at 02:15 Home Medications Home Medications Reviewed patient Home Medication Reconciliation Form Allergies Coded Allergies: Penicillins (Unverified Allergy, Mild, 03/26/08) dimenhydrinate (Verified Allergy, Mild, 07/17/12) morphine (Unverified Allergy, Mild, RASH, 08/29/08) prochlorperazine (Unverified Allergy, Mild, 07/23/09) oxycodone (Unverified Allergy, Unknown, 05/14/10) Uncoded Allergies: ANTI-EMETICS (Allergy, Mild, 03/26/08) ANTI-NAUSEA MEDICATIONS EXCEPT DRAMAMINE (Allergy, Mild, MAKE HER HAVE ANXIETY ATTACKS, 08/29/08) ANTIEMETICS (Allergy, Mild, 12/09/08) NAUSEA MEDS (Allergy, Mild, 12/01/08) WHD-Suemfh-Tspepo Hx Patient Social History Alcohol Use: Denies Use Recreational Drug Use: No Smoking Status: Current Everyday Smoker Type Used: Cigarettes Recent Foreign Travel: No Contact w/other who traveled: No Recent Hopitalizations: No Recent Infectious Disease Expo: No Physical Abuse Screen: No Sexual Abuse: No Immunizations Up To Date Tetanus Booster (TDap): Less than 5yrs Date of Pneumonia Vaccine: Jul 26, 2012 Date of Influenza Vaccine: Feb 13, 2014 Family Medical History Significant Family History: No Pertinent Family Hx Family History: Diabetes mellitus 19 MOTHER Headache disorder G8 SISTER Myocardial infarction 19 MOTHER STROKE 19 MOTHER Review of Systems ([facility]) Constitutional: no symptoms reported All Other Systems Reviewed Negative Unless Noted: Yes (Negative excepted noted.) Physical Exam-([facility]) Physical Exam Vital Signs Capillary Refill : Less Than 3 Seconds General Appearance: WD/WN no apparent distress obese HEENT: PERRL/EOMI normal ENT inspection pharynx normal Neck: non-tender full range of motion supple normal inspection Respiratory: chest non-tender lungs clear normal breath sounds no respiratory distress no accessory muscle use Cardiovascular: regular rate, rhythm no edema no gallop no JVD no murmur Gastrointestinal: normal bowel sounds non tender soft no organomegaly Back: normal inspection Extremities: normal range of motion non-tender normal inspection no pedal edema no calf tenderness normal capillary refill Neurologic/Psychiatric: physical therapy aide II-XII nml as tested no motor/sensory deficits alert normal mood/affect oriented x 3 Skin: normal color warm/dry Short Stay Diagnosis Discharge Diagnosis-Short Stay Admission Diagnosis SEIZURE ACTIVITY MORBID OBESITY MEDICATION NONCOMPLIANCE (SUSPECTED)) Final Discharge Diagnosis SEE ABOVE Conclusion Plan Simone was loaded on ativan in hospital and had no further seizures while in house. She was discharged the following morning after observation revealed a stable course with normal mentation and no further seizures. I do anticipate that med compliance and/or her psychiatric issues are at play here, so I will have her follow up with Dr Johnson tomorrow. She will follow up with her PCP later this week as well. Cande is agreeable to that as well. Clinical Quality Measures DVT/VTE Risk/Contraindication: Risk Factor Score Per Nursin RFS Level Per Nursing on Admit: 2=Moderate Copy Copies To 1: LEN JOHNSON MD Copies To 2: MARILUZ PARRA APRN, MD Jun 14, 2016 19:16
[2016-07-22] MEDS ORDERED: SULF1TAB35 PO (20:15)
== END 2016-06-08 13:09 | disposition home or self-care (01) ==
LOC: EDUNIT# 22:57 → ER 22:58 → ICU 06-08 00:30 → UNDOADMIN 06-08 00:30 → ICU 06-08 02:15 → INTOOBSV 06-08 02:15 → UNDODISIN 06-08 15:00
PROVIDERS: ADMIT Pediatrics; ATTEND Pediatrics
DX: G40.409 Other generalized epilepsy and epileptic syndromes, not intractable, without status epilepticus (principal); F17.210 Nicotine dependence, cigarettes, uncomplicated; I10 Essential (primary) hypertension; J45.909 Unspecified asthma, uncomplicated; K21.9 Gastro-esophageal reflux disease without esophagitis; F32.9 Major depressive disorder, single episode, unspecified; F41.9 Anxiety disorder, unspecified; M54.5 Low back pain
CPT/HCPCS: 36415; 51702; 70450; 71010; 80048; 80053; 80306; 80320; 80329; 81000; 82550; 82553; 83735; 84100; 84443; 84484; 84703; 85025; 93005; 93041; 96374; G0378

== ENCOUNTER 2016-06-11 18:54 | Emergency (ER) | payer MEDICAID ==
[~2016-06-11] VITALS: Ht 167.6 cm; Wt 139.9 kg
[~2016-06-11 18:54] MED LIST changes: +ALBU2.5V4 NEB; +ASPI1TAB22 PO; +CETI10TA17 PO; +CETI10TA23 PO; +CLON0.1T PO; +CLON1TAB3 PO; +HYDR25TA4 PO; +LOVA20TA2 PO; +MELO15TA39 PO; +NORT50CA PO; +OMEP40CA36 PO; +ORPH100T PO; +PARO40TA3 PO; +QUET100T69 PO; +QUET300T44 PO; +TIOT18CA2 INH
[2016-06-11] MEDS ORDERED: NS IV 1000 ML 1,000 ML IV ONE (19:03)
[2016-06-11 19:14] LABS: BASOPHILS # (AUTO) 0.1 10^3/uL (0.0-0.1); BASOPHILS % (AUTO) 1 % (0-10); EOSINOPHILS # (AUTO) 0.2 10^3/uL (0.0-0.3); EOSINOPHILS % (AUTO) 2 % (0-10); LYMPHOCYTES # (AUTO) 2.2 X 10^3 (1.0-4.0); LYMPHOCYTES % (AUTO) 19 % (12-44); MEAN CORPUSCULAR HEMOGLOBIN 25 PG (25-34); MEAN CORPUSCULAR HGB CONC 31 G/DL (32-36); MEAN CORPUSCULAR VOLUME 81 FL (80-99); MEAN PLATELET VOLUME 10.6 FL (7.4-10.4); MONOCYTES # (AUTO) 1.1 X 10^3 (0.0-1.0); MONOCYTES % (AUTO) 10 % (0-12); NEUTROPHILS # (AUTO) 7.9 X 10^3 (1.8-7.8); NEUTROPHILS % (AUTO) 69 % (42-75); PLATELET COUNT 308 10^3/uL (130-400); RED BLOOD COUNT 4.74 10^6/uL (4.35-5.85); RED CELL DISTRIBUTION WIDTH 18.6 % (10.0-14.5); WHITE BLOOD COUNT 11.5 10^3/uL (4.3-11.0)
[2016-06-11] MEDS ORDERED: KETOROLAC 30 MG/ML VIAL IVP ONE (19:15)
[2016-06-11] MEDS ORDERED: ONDANSETRON 4 MG/2 ML (SDV) Z0FRAN IVP ONE (19:15)
[2016-06-11 19:33] LABS: BILIRUBIN,URINE NEGATIVE (NEGATIVE); KETONES,URINE NEGATIVE (NEGATIVE); LEUKOCYTE ESTERASE ,URINE NEGATIVE (NEGATIVE); NITRITE,URINE NEGATIVE (NEGATIVE); PH,URINE 6 (5-9); PROTEIN,URINE NEGATIVE (NEGATIVE); UROBILINOGEN,URINE NORMAL (NORMAL)
[2016-06-11 19:35] LABS: ALANINE AMINOTRANSFERASE 37 U/L (0-55); ALBUMIN 3.8 G/DL (3.2-4.5); ANION GAP 11 MMOL/L (5-14); ASPARTATE AMINO TRANSFERASE 30 U/L (5-34); BILIRUBIN,TOTAL 0.2 MG/DL (0.1-1.0); BLOOD UREA NITROGEN 8 MG/DL (7-18); BUN/CREATININE RATIO 11; CALCIUM 8.9 MG/DL (8.5-10.1); CARBON DIOXIDE 22 MMOL/L (21-32); CHLORIDE 107 MMOL/L (98-107); CREATININE SERUM 0.76 MG/DL (0.60-1.30); GFR ESTIMATED > 60; GLUCOSE 105 MG/DL (70-105); MAGNESIUM 1.7 MG/DL (1.8-2.4); POTASSIUM 3.8 MMOL/L (3.6-5.0); SODIUM 140 MMOL/L (135-145); TOTAL PROTEIN 6.8 G/DL (6.4-8.2)
[2016-06-11 19:36] LABS: ALCOHOL < 10 MG/DL (<10)
[2016-06-11 19:48] LABS: WBC,URINE RARE /HPF
--- NOTE | 2016-06-11 19:48 | Diagnostic Imaging Report ---
INDICATION: Seizure Portable chest 7:38 PM Heart size and pulmonary vascularity are normal. Lungs are clear. There are no effusions or pneumothoraces. IMPRESSION: Negative chest Dictated by: Dictated on workstation # [id number]
--- NOTE | 2016-06-11 19:56 | ED Neurological Problem ---
General Chief Complaint: Neurological Problems Stated Complaint: SEIZURE Nursing Triage Note: patient reports getting a headache while watching a movie. patient reports having about a 30 second seizure per daughter. patient is a&ox3 on arrival Nursing Sepsis Screen: No Definite Risk Source: patient, EMS, old records Exam Limitations: no limitations History of Present Illness Time seen by provider: 19:00 Initial Comments This patient presents to the emergency room via EMS after having a tonic-clonic seizure at home. She was reportedly watching television on a recliner or sofa when she developed a headache. She then proceeded to have a 30 second seizure as reported to EMS by the patient's 15-year-old daughter. The daughter activated EMS. Patient remained seated the entire time. There was no fall or injury. She continues to have headache. She was briefly postictal for EMS but is now alert and oriented. She was recently discharged from the hospital on June 08 after being observed for new onset seizure. Records were reviewed. This is her third seizure since that time. It is noted that she discontinued benzodiazepines just prior to the first seizure. She refilled her clonazepam today and took one dose shortly before the seizure. Gabapentin was also recently discontinued but she started taking it again a couple days ago. She had recent cough 2 months but it is now resolved. She reports recent increased stress in her life. Allergies and Home Medications Allergies Coded Allergies: Penicillins (Unverified Allergy, Mild, 03/26/08) dimenhydrinate (Verified Allergy, Mild, 07/17/12) morphine (Unverified Allergy, Mild, RASH, 08/29/08) prochlorperazine (Unverified Allergy, Mild, 07/23/09) oxycodone (Unverified Allergy, Unknown, 05/14/10) Uncoded Allergies: ANTI-EMETICS (Allergy, Mild, 03/26/08) ANTI-NAUSEA MEDICATIONS EXCEPT DRAMAMINE (Allergy, Mild, MAKE HER HAVE ANXIETY ATTACKS, 08/29/08) ANTIEMETICS (Allergy, Mild, 12/09/08) NAUSEA MEDS (Allergy, Mild, 12/01/08) Home Medications Albuterol Sulfate 2.5 Mg/3 Ml Vial.neb 2.5 MG NEB TID PRN PRN SHORTNESS OF BREATH (Reported) Amlodipine Besylate 5 Mg Tablet 5 MG PO HS (Reported) Cetirizine HCl 10 Mg Tablet 10 MG PO DAILY (Reported) Clonidine HCl 0.1 Mg Tablet 0.1 MG PO TID (Reported) Hydrochlorothiazide 25 Mg Tablet 25 MG PO DAILY PRN PRN SWELLING (Reported) Lovastatin 20 Mg Tablet 20 MG PO HS (Reported) Meloxicam 15 Mg Tablet 15 MG PO HS (Reported) Omeprazole 40 Mg Capsule.dr 40 MG PO HS (Reported) Paroxetine HCl 40 Mg Tablet 40 MG PO HS (Reported) Quetiapine Fumarate 300 Mg Tablet 300 MG PO HS (Reported) Tiotropium [place] 1 Inh Aerp 1 CAP INH DAILY (Reported) Constitutional: no symptoms reported Eyes: No Symptoms Reported Ears, Nose, Mouth, Throat: no symptoms reported Respiratory: see HPI Cardiovascular: no symptoms reported Gastrointestinal: no symptoms reported Genitourinary: no symptoms reported : No Musculoskeletal: no symptoms reported Skin: no symptoms reported Psychiatric/Neurological: See HPI Endocrine: No Symptoms Reported Hematologic/Lymphatic: No Symptoms Reported Past Oyaqkoe-Ldshwf-Pbygqz Hx Patient Social History Alcohol Use: Denies Use Recreational Drug Use: No Smoking Status: Current Everyday Smoker Type Used: Cigarettes Recent Foreign Travel: No Contact w/Someone Who Travel: No Recent Infectious Disease Expo: No Recent Hopitalizations: No Physical Abuse Screen: No Sexual Abuse: No Immunizations Up To Date Tetanus Booster (TDap): Less than 5yrs Date of Pneumonia Vaccine: Jul 26, 2012 Date of Influenza Vaccine: Feb 13, 2014 Seasonal Allergies Seasonal Allergies: No Surgeries HX Surgeries: Yes (LUNG SURGERY FOR EMPYEMA, LEFT OVARIAN CYST REMOVAL; HYST/ BSO) Surgeries: Appendectomy, Section, Hysterectomy, Oophorectomy, Tonsillectomy Respiratory Hx Respiratory Disorders: Yes (EMPYEMA--S/P LUNG SURGERY FOR REMOVAL) Respiratory Disorders: Asthma Cardiovascular Hx Cardiac Disorders: Yes Cardiac Disorders: Hypertension Neurological Hx Neurological Disorders: No Reproductive System Hx Reproductive Disorders: Yes (MULTIPLE OVARIAN CYSTS. 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 [employer] History: Hysterectomy Genitourinary Hx Genitourinary Disorders: No Gastrointestinal Hx Gastrointestinal Disorders: Yes Gastrointestinal Disorders: Gastroesophageal Reflux, Irritable Bowel Musculoskeletal Hx Musculoskeletal Disorders: Yes Musculoskeletal Disorders: Degenerate Disk Disease, Chronic Back Pain Endocrine Hx Endocrine Disorders: Yes (MORBID OBESTIY) HEENT HX ENT Disorders: Yes (WEARS GLASSES) Cancer Hx Cancer: No Psychosocial Hx Psychiatric Problems: Yes Behavioral Health Disorders: Sleep Difficulties, Anxiety, Depression Integumentary HX Skin/Integumentary Disorder: Yes (ABSCESSES, MULTIPLE WOUND INFECTIONS, STAPH) Blood Transfusions Hx Blood Disorders: No Family Medical History Significant Family History: No Pertinent Family Hx Family Medial History: Diabetes mellitus 19 MOTHER Headache disorder G8 SISTER Myocardial infarction 19 MOTHER STROKE 19 MOTHER Physical Exam Vital Signs Vital Sign - Last 12Hours 06/11/16 18:56 Temp 98.3 Pulse 106 Resp 18 B/P 129/107 Pulse Ox 95 O2 Delivery Room Air Capillary Refill : Less Than 3 Seconds General Appearance: WD/WN moderate distress obese HEENT: PERRL/EOMI normal ENT inspection Neck: normal inspection Respiratory: lungs clear normal breath sounds no respiratory distress no accessory muscle use Cardiovascular: regular rate, rhythm no edema no murmur Gastrointestinal: normal bowel sounds non tender soft Extremities: normal inspection no pedal edema Neurologic/Psychiatric: health aid II-XII nml as tested no motor/sensory deficits alert normal mood/affect oriented x 3 Crainal Nerves: normal hearing normal speech PERRL Motor/Sensory: no motor deficit no sensory deficit Skin: normal color warm/dry Stroke Stroke Thrombolytic Exclusion History of CVA: No Severe Hypertension: No GI or Bleed: No Subarachnoid Hemorrhage: No Intracranial Neoplasm/Aneurysm: No Puncture of Non-Compressible V: No Recent CPR: No Diabetic Hemorrhagic Retinopat: No Organ Biopsy: No Recent Obstetric Delivery: No Significant Hepatic Dysfunctio: No NIH Stoke Scale >22: No Improving Symptoms: No Laceration Repair : Suture Size: 4-0 Progress/Results/Core Measures Results/Orders Lab Results Laboratory Tests Test 06/11/16 19:00 06/11/16 19:15 Range/Units Alanine Aminotransferase (ALT/SGPT) 37 0-55 U/L Albumin 3.8 3.2-4.5 G/DL Alkaline Phosphatase 125 40-136 U/L Anion Gap 11 5-14 MMOL/L Aspartate Amino Transf (AST/SGOT) 30 5-34 U/L BUN/Creatinine Ratio 11 Basophils # (Auto) 0.1 0.0-0.1 10^3/uL Basophils (%) (Auto) 1 0-10 % Blood Urea Nitrogen 8 7-18 MG/DL Calcium Level 8.9 8.5-10.1 MG/DL Carbon Dioxide Level 22 21-32 MMOL/L Chloride Level 107 98-107 MMOL/L Creatinine 0.76 0.60-1.30 MG/DL Eosinophils # (Auto) 0.2 0.0-0.3 10^3/uL Eosinophils (%) (Auto) 2 0-10 % Estimat Glomerular Filtration Rate > 60 Glucose Level 105 70-105 MG/DL Hematocrit 38 35-52 % Hemoglobin 11.7 11.5-16.0 G/DL Lymphocytes # (Auto) 2.2 1.0-4.0 X 10^3 Lymphocytes (%) (Auto) 19 12-44 % Magnesium Level 1.7 L 1.8-2.4 MG/DL Mean Corpuscular Hemoglobin 25 25-34 PG Mean Corpuscular Hemoglobin Concent 31 L 32-36 G/DL Mean Corpuscular Volume 81 80-99 FL Mean Platelet Volume 10.6 H 7.4-10.4 FL Monocytes # (Auto) 1.1 H 0.0-1.0 X 10^3 Monocytes (%) (Auto) 10 0-12 % Neutrophils # (Auto) 7.9 H 1.8-7.8 X 10^3 Neutrophils (%) (Auto) 69 42-75 % Platelet Count 308 130-400 10^3/uL Potassium Level 3.8 3.6-5.0 MMOL/L Red Blood Count 4.74 4.35-5.85 10^6/uL Red Cell Distribution Width 18.6 H 10.0-14.5 % Serum Alcohol < 10 <10 MG/DL Sodium Level 140 135-145 MMOL/L Total Bilirubin 0.2 0.1-1.0 MG/DL Total Protein 6.8 6.4-8.2 G/DL White Blood Count 11.5 H 4.3-11.0 10^3/uL Ur Tricyclic Antidepressants Screen POSITIVE H NEGATIVE Urine Amphetamines Screen NEGATIVE NEGATIVE Urine Bacteria TRACE /HPF Urine Barbiturates Screen NEGATIVE NEGATIVE Urine Benzodiazepines Screen NEGATIVE NEGATIVE Urine Bilirubin NEGATIVE NEGATIVE Urine Cannabinoids Screen NEGATIVE NEGATIVE Urine Casts NONE /LPF Urine Clarity CLEAR Urine Cocaine Screen NEGATIVE NEGATIVE Urine Color YELLOW Urine Crystals NONE /LPF Urine Culture Indicated NO Urine Glucose (UA) NEGATIVE NEGATIVE Urine Ketones NEGATIVE NEGATIVE Urine Leukocyte Esterase NEGATIVE NEGATIVE Urine Methadone Screen NEGATIVE NEGATIVE Urine Methamphetamines Screen NEGATIVE NEGATIVE Urine Mucus NEGATIVE /LPF Urine Nitrite NEGATIVE NEGATIVE Urine Opiates Screen POSITIVE H NEGATIVE Urine Oxycodone Screen NEGATIVE NEGATIVE Urine Phencyclidine Screen NEGATIVE NEGATIVE Urine Propoxyphene Screen NEGATIVE NEGATIVE Urine Protein NEGATIVE NEGATIVE Urine RBC NONE /HPF Urine RBC (Auto) NEGATIVE NEGATIVE Urine Specific [place] 1.015 L 1.016-1.022 Urine Squamous Epithelial Cells 5-10 /HPF Urine Urobilinogen NORMAL NORMAL MG/DL Urine WBC RARE /HPF Urine pH 6 5-9 My Orders Orders-JERROD NUGENT MD Alcohol (06/11/16 19:03) Cbc With Automated Diff (06/11/16 19:03) Comprehensive Metabolic Panel (06/11/16 19:03) Drug Screen Stat (Urine) (06/11/16 19:03) Magnesium (06/11/16 19:03) Ua Culture If Indicated (06/11/16 19:03) Saline Lock/Iv-Start (06/11/16 19:03) Ns Iv 1000 Ml (Sodium Chloride 0.9%) (06/11/16 19:03) Chest 1 View, Ap/Pa Only (06/11/16 19:03) Ketorolac Injection (Toradol Injection) (06/11/16 19:15) Levetiracetam Injection (Keppra Injectio (06/11/16 21:00) Ondansetron Injection (Zofran Injectio (06/11/16 19:15) Monitor-Rhythm Ecg Trace Only (06/11/16 19:06) Fentanyl Injection (Sublimaze Injection (06/11/16 20:15) Medications Given in ED Current Medications Medications Dose Ordered Sig/Jesus Route Start Time Stop Time Status Last Admin Dose Admin Fentanyl Citrate 50 mcg ONCE ONCE IVP 06/11/16 20:15 06/11/16 20:16 DC 06/11/16 20:14 50 MCG Ketorolac Tromethamine 30 mg 30 mg ONCE ONCE IVP 06/11/16 19:15 06/11/16 19:16 DC 06/11/16 19:23 30 MG Levetiracetam/ Sodium Chloride 55 ml @ 220 mls/hr BID ONCE IV 06/11/16 21:00 06/11/16 21:14 DC 06/11/16 19:24 220 MLS/HR Ondansetron HCl 4 mg ONCE ONCE IVP 06/11/16 19:15 06/11/16 19:16 DC 06/11/16 19:23 4 MG Sodium Chloride 1,000 ml @ 0 mls/hr Q0M ONCE IV 06/11/16 19:03 06/11/16 19:06 DC 06/11/16 19:24 0 MLS/HR Vital Signs/I&O Vital Sign - Last 12Hours 06/11/16 06/11/16 18:56 21:37 Temp 98.3 Pulse 106 93 Resp 18 14 B/P 129/107 Pulse Ox 95 99 O2 Delivery Room Air Intake and Output 06/12/16 00:00 Intake Total 1000 ml Balance 1000 ml Blood Pressure Mean: 114 Progress Note : Time: 21:31 Progress Note Workup was relatively unremarkable. Headache was treated effectively with Toradol and fentanyl. IV fluids were also administered along with 500 mg of IV Keppra. Patient was alert and oriented at time of dismissal. I discussed the case with Dr. Ge. Consensus is that her seizures are likely secondary to abrupt withdrawal of benzodiazepines based on timing. She was instructed to continue her clonazepam as prescribed starting with taking her second daily dose upon returning home. She is to follow-up in the clinic. Admission was not felt necessary with resumption of clonazepam. Diagnostic Imaging Diagonstic Imaging: Xray Plain Films/CT/US/NM/MRI: chest Comments Chest x-ray viewed by me and report reviewed. Compared with prior. See report below: NAME: PAULA SALAZAR [facility] REC#: [id number] PT STATUS: REG ER : 1970 PHYSICIAN: JERROD NUGENT MD ADMIT DATE: 06/11/16/ER Signed Date of Exam: 06/11/16 CHEST 1 VIEW, AP/PA ONLY INDICATION: Seizure Portable chest 7:38 PM Heart size and pulmonary vascularity are normal. Lungs are clear. There are no effusions or pneumothoraces. IMPRESSION: Negative chest Dictated by: Dictated on workstation # [id number] Dict: 06/11/161944 Trans: 06/11/161947 JACKSON [id number] Interpreted by: ARLENE SANTIAGO Electronically signed by:ALRENE SANTIAGO 06/11/161950 Departure Impression Impression: Primary Impression: Seizure Additional Impressions: Acute headache Qualified Code: R51 - Headache Benzodiazepine withdrawal with complication Disposition: 01 HOME, SELF-CARE Condition: Improved Departure-Patient Inst. Decision time for Depature: 21:00 Referrals: [facility] (PCP/Family) Primary Care Physician Patient Instructions: Seizures Add. Discharge Instructions: Resume taking clonazepam twice daily as prescribed. Take today's second dose when you return home. You may take ibuprofen up to 800 mg every 8 hours as needed for headache. Add Tylenol (acetaminophen) up to 1000 mg every 6 hours as needed for additional pain relief. Drink plenty of clear liquids. Reduce unnecessary stress. Get plenty of sleep. Contact [facility] tomorrow to schedule follow-up appointment. Continue taking gabapentin (Neurontin) as previously prescribed. You may not drive for at least 6 months after having a seizure. Avoid situations in which you may become injured or injure others should you have another seizure. This includes use of heights such as ladders, operating machinery, swimming, etc. All discharge instructions reviewed with patient and/or family. Voiced understanding. Copy Copies To 1: BEAR GE JOSHUA T MD Jun 11, 2016 19:56
[2016-06-11] MEDS ORDERED: fentaNYL INJECTION 100 MCG/2 ML AMP IVP ONE (20:15)
[2016-06-11] MEDS ORDERED: LEVETIRACETAM INJECTION 500 MG in NORMAL SALINE (BAXTER MINI) 50 ML IV ONE (21:00)
[2016-06-11 21:37] VITALS: BP 147/91
[2016-07-22] MEDS ORDERED: SULF1TAB35 PO (20:15)
== END 2016-06-11 21:39 | disposition home or self-care (01) ==
LOC: EDUNIT# 18:54 → ER 18:55
DX: G40.909 Epilepsy, unspecified, not intractable, without status epilepticus (principal); R51 Headache; F17.210 Nicotine dependence, cigarettes, uncomplicated; Z79.899 Other long term (current) drug therapy
CPT/HCPCS: 36415; 71010; 80053; 80306; 80320; 81000; 83735; 85025; 96361; 96365; 96375

== ENCOUNTER 2016-06-21 17:23 | Emergency (ER) | payer MEDICAID ==
[~2016-06-21] VITALS: Ht 167.6 cm; Wt 136.1 kg
[2016-06-21] MEDS ORDERED: NS IV 1000 ML 1,000 ML IV SCH (17:45)
--- NOTE | 2016-06-21 17:45 | ED Neurological Problem ---
General Chief Complaint: Neurological Problems Stated Complaint: UNRESPONSIVE Source: family, EMS Exam Limitations: no limitations History of Present Illness Time seen by provider: 17:42 Initial Comments Brought to ER by EMS from [facility] accompanied by her daughter. Reportedly, according to the daughter, patient went into the bathroom and had been in there for quite some time. Daughter knocked on the door twice without any response so she asked customer service to unlock the door. Upon opening the door she found her mother to be lying unresponsive on the floor. Patient has reportedly had seizures 2 within the past few week. She states she was told to stop taking her gabapentin and muscle relaxer. Patient is alert and oriented upon arrival to ER with GCS 15. She did not lose control of bowel or bladder or bite her tongue during this period of unresponsiveness. Timing/Duration: 1 week Severity: moderate Associated Symptoms: seizures Allergies and Home Medications Allergies Coded Allergies: Penicillins (Unverified Allergy, Mild, 03/26/08) dimenhydrinate (Verified Allergy, Mild, 07/17/12) morphine (Unverified Allergy, Mild, RASH, 08/29/08) prochlorperazine (Unverified Allergy, Mild, 07/23/09) oxycodone (Unverified Allergy, Unknown, 05/14/10) Uncoded Allergies: ANTI-EMETICS (Allergy, Mild, 03/26/08) ANTI-NAUSEA MEDICATIONS EXCEPT DRAMAMINE (Allergy, Mild, MAKE HER HAVE ANXIETY ATTACKS, 08/29/08) ANTIEMETICS (Allergy, Mild, 12/09/08) NAUSEA MEDS (Allergy, Mild, 12/01/08) Home Medications Albuterol Sulfate 2.5 Mg/3 Ml Vial.neb 2.5 MG NEB TID PRN PRN SHORTNESS OF BREATH (Reported) Amlodipine Besylate 5 Mg Tablet 5 MG PO HS (Reported) Cetirizine HCl 10 Mg Tablet 10 MG PO DAILY (Reported) Clonidine HCl 0.1 Mg Tablet 0.1 MG PO TID (Reported) Hydrochlorothiazide 25 Mg Tablet 25 MG PO DAILY PRN PRN SWELLING (Reported) Lovastatin 20 Mg Tablet 20 MG PO HS (Reported) Meloxicam 15 Mg Tablet 15 MG PO HS (Reported) Omeprazole 40 Mg Capsule.dr 40 MG PO HS (Reported) Paroxetine HCl 40 Mg Tablet 40 MG PO HS (Reported) Quetiapine Fumarate 300 Mg Tablet 300 MG PO HS (Reported) Tiotropium [place] 1 Inh Aerp 1 CAP INH DAILY (Reported) Constitutional: see HPI Eyes: No Symptoms Reported Ears, Nose, Mouth, Throat: no symptoms reported Respiratory: no symptoms reported Cardiovascular: no symptoms reported Genitourinary: no symptoms reported Musculoskeletal: no symptoms reported Skin: no symptoms reported Psychiatric/Neurological: See HPI Endocrine: No Symptoms Reported Hematologic/Lymphatic: No Symptoms Reported Past Qyuvkew-Fkwbgk-Lgxppe Hx Patient Social History Type Used: Cigarettes Recent Hopitalizations: No Immunizations Up To Date Tetanus Booster (TDap): Less than 5yrs Date of Pneumonia Vaccine: Jul 26, 2012 Date of Influenza Vaccine: Feb 13, 2014 Seasonal Allergies Seasonal Allergies: No Surgeries HX Surgeries: Yes (LUNG SURGERY FOR EMPYEMA, LEFT OVARIAN CYST REMOVAL; HYST/ BSO) Surgeries: Appendectomy, Section, Hysterectomy, Oophorectomy, Tonsillectomy Respiratory Hx Respiratory Disorders: Yes (EMPYEMA--S/P LUNG SURGERY FOR REMOVAL) Respiratory Disorders: Asthma Cardiovascular Hx Cardiac Disorders: Yes Cardiac Disorders: Hypertension Neurological Hx Neurological Disorders: No Reproductive System Hx Reproductive Disorders: Yes (MULTIPLE OVARIAN CYSTS. 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 Genitourinary Hx Genitourinary Disorders: No Gastrointestinal Hx Gastrointestinal Disorders: Yes Gastrointestinal Disorders: Gastroesophageal Reflux, Irritable Bowel Musculoskeletal Hx Musculoskeletal Disorders: Yes Musculoskeletal Disorders: Degenerate Disk Disease, Chronic Back Pain Endocrine Hx Endocrine Disorders: Yes (MORBID OBESTIY) HEENT HX ENT Disorders: Yes (WEARS GLASSES) Cancer Hx Cancer: No Psychosocial Hx Psychiatric Problems: Yes Behavioral Health Disorders: Sleep Difficulties, Anxiety, Depression Integumentary HX Skin/Integumentary Disorder: Yes (ABSCESSES, MULTIPLE WOUND INFECTIONS, STAPH) Blood Transfusions Hx Blood Disorders: No Family Medical History Significant Family History: No Pertinent Family Hx Family Medial History: Diabetes mellitus 19 MOTHER Headache disorder G8 SISTER Myocardial infarction 19 MOTHER STROKE 19 MOTHER Physical Exam Vital Signs Vital Sign - Last 12Hours 06/21/16 17:42 Temp 98.9 Pulse 106 Resp 18 B/P 136/81 Pulse Ox 97 O2 Delivery Room Air Capillary Refill : General Appearance: WD/WN no apparent distress obese other (Shaved her head recently since she was last a visitor in ER a few weeks ago) HEENT: PERRL/EOMI normal ENT inspection Neck: non-tender full range of motion Respiratory: no respiratory distress no accessory muscle use Cardiovascular: regular rate, rhythm no murmur Gastrointestinal: normal bowel sounds non tender soft Neurologic/Psychiatric: alert normal mood/affect oriented x 3 Crainal Nerves: normal hearing normal speech Skin: normal color warm/dry Stroke Stroke Thrombolytic Exclusion History of CVA: No Severe Hypertension: No GI or Bleed: No Subarachnoid Hemorrhage: No Intracranial Neoplasm/Aneurysm: No Puncture of Non-Compressible V: No Recent CPR: No Diabetic Hemorrhagic Retinopat: No Organ Biopsy: No Recent Obstetric Delivery: No Significant Hepatic Dysfunctio: No NIH Stoke Scale >22: No Improving Symptoms: No Laceration Repair : Suture Size: 4-0 Progress/Results/Core Measures Results/Orders Lab Results Laboratory Tests Test 06/21/16 17:39 06/21/16 18:16 Range/Units Acetaminophen Level < 10 L 10-30 UG/ML Alanine Aminotransferase (ALT/SGPT) 30 0-55 U/L Albumin 3.8 3.2-4.5 G/DL Alkaline Phosphatase 126 40-136 U/L Anion Gap 11 5-14 MMOL/L Aspartate Amino Transf (AST/SGOT) 19 5-34 U/L BUN/Creatinine Ratio 10 Basophils # (Auto) 0.1 0.0-0.1 10^3/uL Basophils (%) (Auto) 1 0-10 % Blood Urea Nitrogen 8 7-18 MG/DL Calcium Level 9.0 8.5-10.1 MG/DL Carbon Dioxide Level 23 21-32 MMOL/L Chloride Level 105 98-107 MMOL/L Creatinine 0.77 0.60-1.30 MG/DL Eosinophils # (Auto) 0.3 0.0-0.3 10^3/uL Eosinophils (%) (Auto) 3 0-10 % Estimat Glomerular Filtration Rate > 60 Glucose Level 88 70-105 MG/DL Hematocrit 38 35-52 % Hemoglobin 11.4 L 11.5-16.0 G/DL Lymphocytes # (Auto) 2.1 1.0-4.0 X 10^3 Lymphocytes (%) (Auto) 22 12-44 % Mean Corpuscular Hemoglobin 25 25-34 PG Mean Corpuscular Hemoglobin Concent 30 L 32-36 G/DL Mean Corpuscular Volume 81 80-99 FL Mean Platelet Volume 10.6 H 7.4-10.4 FL Monocytes # (Auto) 1.0 0.0-1.0 X 10^3 Monocytes (%) (Auto) 11 0-12 % Neutrophils # (Auto) 6.1 1.8-7.8 X 10^3 Neutrophils (%) (Auto) 63 42-75 % Platelet Count 270 130-400 10^3/uL Potassium Level 3.7 3.6-5.0 MMOL/L Red Blood Count 4.65 4.35-5.85 10^6/uL Red Cell Distribution Width 18.8 H 10.0-14.5 % Salicylates Level < 5.0 L 5.0-20.0 MG/DL Serum Alcohol < 10 <10 MG/DL Sodium Level 139 135-145 MMOL/L Total Bilirubin 0.3 0.1-1.0 MG/DL Total Protein 6.9 6.4-8.2 G/DL White Blood Count 9.7 4.3-11.0 10^3/uL Ur Tricyclic Antidepressants Screen POSITIVE H NEGATIVE Urine Amphetamines Screen NEGATIVE NEGATIVE Urine Bacteria NEGATIVE /HPF Urine Barbiturates Screen NEGATIVE NEGATIVE Urine Benzodiazepines Screen NEGATIVE NEGATIVE Urine Bilirubin NEGATIVE NEGATIVE Urine Cannabinoids Screen NEGATIVE NEGATIVE Urine Casts NONE /LPF Urine Clarity CLEAR Urine Cocaine Screen NEGATIVE NEGATIVE Urine Color YELLOW Urine Crystals NONE /LPF Urine Culture Indicated NO Urine Glucose (UA) NEGATIVE NEGATIVE Urine Ketones NEGATIVE NEGATIVE Urine Leukocyte Esterase NEGATIVE NEGATIVE Urine Methadone Screen NEGATIVE NEGATIVE Urine Methamphetamines Screen NEGATIVE NEGATIVE Urine Mucus NEGATIVE /LPF Urine Nitrite NEGATIVE NEGATIVE Urine Opiates Screen NEGATIVE NEGATIVE Urine Oxycodone Screen NEGATIVE NEGATIVE Urine Phencyclidine Screen NEGATIVE NEGATIVE Urine Propoxyphene Screen NEGATIVE NEGATIVE Urine Protein NEGATIVE NEGATIVE Urine RBC NONE /HPF Urine RBC (Auto) NEGATIVE NEGATIVE Urine Specific [place] 1.010 L 1.016-1.022 Urine Squamous Epithelial Cells 0-2 /HPF Urine Urobilinogen NORMAL NORMAL MG/DL Urine WBC NONE /HPF Urine pH 6.5 5-9 My Orders Orders-TAE CUNHA TYPE INSPECTOR Cbc With Automated Diff (06/21/16 17:31) Comprehensive Metabolic Panel (06/21/16 17:31) Alcohol (06/21/16 17:31) Salicylate (06/21/16 17:31) Acetaminophen (06/21/16 17:31) Chest 1 View, Ap/Pa Only (06/21/16 17:31) Saline Lock/Iv-Start (06/21/16 17:31) Ua Culture If Indicated (06/21/16 17:31) Drug Screen Stat (Urine) (06/21/16 17:31) Ns Iv 1000 Ml (Sodium Chloride 0.9%) (06/21/16 17:45) Ketorolac Injection (Toradol Injection) (06/21/16 19:00) Fentanyl Injection (Sublimaze Injection (06/21/16 19:15) Ct Head Wo (06/21/16 19:24) Medications Given in ED Current Medications Medications Dose Ordered Sig/Jesus Route Start Time Stop Time Status Last Admin Dose Admin Fentanyl Citrate 50 mcg ONCE ONCE IVP 06/21/16 19:15 06/21/16 19:16 DC 06/21/16 19:08 50 MCG Ketorolac Tromethamine 30 mg ONCE ONCE IVP 06/21/16 19:00 06/21/16 19:01 DC 06/21/16 19:09 30 MG Vital Signs/I&O Vital Sign - Last 12Hours 06/21/16 06/21/16 17:42 21:09 Temp 98.9 98.9 Pulse 106 106 Resp 18 18 B/P 136/81 Pulse Ox 97 97 O2 Delivery Room Air Departure Impression Impression: Primary Impression: Transient alteration of awareness Disposition: 01 HOME, SELF-CARE Condition: Stable Departure-Patient Inst. Decision time for Depature: 18:48 Referrals: [facility] (PCP/Family) Primary Care Physician Patient Instructions: NO INSTRUCTIONS GIVEN Add. Discharge Instructions: follow-up with your regular doctor as well as your psychiatrist as soon as possible. All discharge instructions reviewed with patient and/or family. Voiced understanding. TAE CUNHA APRN Jun 21, 2016 17:45
[2016-06-21 18:01] LABS: BASOPHILS # (AUTO) 0.1 10^3/uL (0.0-0.1); BASOPHILS % (AUTO) 1 % (0-10); EOSINOPHILS # (AUTO) 0.3 10^3/uL (0.0-0.3); EOSINOPHILS % (AUTO) 3 % (0-10); LYMPHOCYTES # (AUTO) 2.1 X 10^3 (1.0-4.0); LYMPHOCYTES % (AUTO) 22 % (12-44); MEAN CORPUSCULAR HEMOGLOBIN 25 PG (25-34); MEAN CORPUSCULAR HGB CONC 30 G/DL (32-36); MEAN CORPUSCULAR VOLUME 81 FL (80-99); MEAN PLATELET VOLUME 10.6 FL (7.4-10.4); MONOCYTES % (AUTO) 11 % (0-12); NEUTROPHILS # (AUTO) 6.1 X 10^3 (1.8-7.8); NEUTROPHILS % (AUTO) 63 % (42-75); PLATELET COUNT 270 10^3/uL (130-400); RED BLOOD COUNT 4.65 10^6/uL (4.35-5.85); RED CELL DISTRIBUTION WIDTH 18.8 % (10.0-14.5); WHITE BLOOD COUNT 9.7 10^3/uL (4.3-11.0)
[2016-06-21 18:22] LABS: BILIRUBIN,URINE NEGATIVE (NEGATIVE); KETONES,URINE NEGATIVE (NEGATIVE); LEUKOCYTE ESTERASE ,URINE NEGATIVE (NEGATIVE); NITRITE,URINE NEGATIVE (NEGATIVE); PH,URINE 6.5 (5-9); PROTEIN,URINE NEGATIVE (NEGATIVE); UROBILINOGEN,URINE NORMAL (NORMAL)
[2016-06-21 18:24] LABS: ALANINE AMINOTRANSFERASE 30 U/L (0-55); ALBUMIN 3.8 G/DL (3.2-4.5); ANION GAP 11 MMOL/L (5-14); ASPARTATE AMINO TRANSFERASE 19 U/L (5-34); BILIRUBIN,TOTAL 0.3 MG/DL (0.1-1.0); BLOOD UREA NITROGEN 8 MG/DL (7-18); BUN/CREATININE RATIO 10; CARBON DIOXIDE 23 MMOL/L (21-32); CHLORIDE 105 MMOL/L (98-107); CREATININE SERUM 0.77 MG/DL (0.60-1.30); GFR ESTIMATED > 60; GLUCOSE 88 MG/DL (70-105); POTASSIUM 3.7 MMOL/L (3.6-5.0); SALICYLATE < 5.0 MG/DL (5.0-20.0); SODIUM 139 MMOL/L (135-145); TOTAL PROTEIN 6.9 G/DL (6.4-8.2)
[2016-06-21 18:25] LABS: ACETAMINOPHEN < 10 UG/ML (10-30); ALCOHOL < 10 MG/DL (<10)
[2016-06-21 18:32] LABS: SQUAMOUS EPITHELIAL CELL,UR 0-2 /HPF
[2016-06-21] MEDS ORDERED: KETOROLAC 30 MG/ML VIAL IVP ONE (19:00)
[2016-06-21] MEDS ORDERED: fentaNYL INJECTION 100 MCG/2 ML AMP IVP ONE (19:15)
--- NOTE | 2016-06-21 19:15 | Diagnostic Imaging Report ---
INDICATION: Dizzy. COMPARISON: 06/11/2016. FINDINGS: Single view of the chest demonstrates clear lungs bilaterally. The heart size is normal. There is no pneumothorax. Osseous structures are normal. IMPRESSION: Negative chest. Dictated by: Dictated on workstation # [id number]
--- NOTE | 2016-06-21 19:59 | Diagnostic Imaging Report ---
PROCEDURE: CT head without contrast. TECHNIQUE: Multiple contiguous axial images were obtained through the brain without the use of intravenous contrast. INDICATION: Light sensitivity, history of seizures, headache COMPARISON STUDY: CT of the head from June 07. FINDINGS: Noncontrast CT scan of the head demonstrates no mass effect, midline shift, hemorrhage, or extra-axial fluid collections. The arreola-white matter differentiation is normal. Bone windows appear normal. No fluid is seen in the visualized portions of the paranasal sinuses or mastoid air cells. IMPRESSION: Normal CT scan of the head. Dictated by: Dictated on workstation # [id number]
[2016-06-21 21:09] VITALS: BP 136/81
[2016-07-22] MEDS ORDERED: SULF1TAB35 PO (20:15)
== END 2016-06-21 20:20 | disposition home or self-care (01) ==
LOC: EDUNIT# 17:23 → ER 17:24
DX: R40.4 Transient alteration of awareness (principal); I10 Essential (primary) hypertension; E66.01 Morbid (severe) obesity due to excess calories; Z79.899 Other long term (current) drug therapy
CPT/HCPCS: 36415; 70450; 71010; 80053; 80306; 80320; 80329; 81000; 85025; 96361; 96374; 96375

== ENCOUNTER 2016-07-02 14:31 | Emergency (ER) | payer MEDICAID ==
[~2016-07-02] VITALS: Ht 167.6 cm; Wt 136.2 kg
[2016-07-02] MEDS ORDERED: RX-MUPIROCIN (BACTROBAN) 2% OINT 22 GM TUBE TOP STA (14:46)
[2016-07-02] MEDS ORDERED: HYDROcodone/APAP 7.5 MG/325 MG (LORTAB, LORCET PLUS) TABLET PO STA (14:46)
[2016-07-02] MEDS ORDERED: TRIM/SULFAMETH 160/800 (SEPTRA DS) TAB PO STA (14:46)
--- NOTE | 2016-07-02 14:59 | ED Upper Extremity ---
General Chief Complaint: Upper Extremity Stated Complaint: POSS RIGHT HAND INFECTION Nursing Triage Note: Stated she had a piece of metal in hand and it was dug out. Hit it on wall and now it is draining and hurts. base of rt thumb. Nursing Sepsis Screen: No Definite Risk Source: patient Exam Limitations: no limitations History of Present Illness Time seen by provider: 14:39 Initial Comments Here with report of infection to the area of the hand where she had a piece of metal removed. Complains of new drainage from the wound. She has had this drained previously. Denies nausea or vomiting. Does complain of swelling and pain. Onset: yesterday Severity: moderate Method of Injury: other Modifying Factors: Improves With Immobilization, Worse With Movement Allergies and Home Medications Allergies Coded Allergies: Penicillins (Unverified Allergy, Mild, 07/02/16) dimenhydrinate (Verified Allergy, Mild, 07/17/12) morphine (Unverified Allergy, Mild, RASH, 08/29/08) prochlorperazine (Unverified Allergy, Mild, 07/23/09) oxycodone (Unverified Allergy, Unknown, 05/14/10) Uncoded Allergies: ANTI-EMETICS (Allergy, Mild, 03/26/08) ANTI-NAUSEA MEDICATIONS EXCEPT DRAMAMINE (Allergy, Mild, MAKE HER HAVE ANXIETY ATTACKS, 08/29/08) ANTIEMETICS (Allergy, Mild, 12/09/08) NAUSEA MEDS (Allergy, Mild, 12/01/08) Home Medications Albuterol Sulfate 2.5 Mg/3 Ml Vial.neb 2.5 MG NEB TID PRN PRN SHORTNESS OF BREATH (Reported) Amlodipine Besylate 5 Mg Tablet 5 MG PO HS (Reported) Cetirizine HCl 10 Mg Tablet 10 MG PO DAILY (Reported) Clonidine HCl 0.1 Mg Tablet 0.1 MG PO TID (Reported) Hydrochlorothiazide 25 Mg Tablet 25 MG PO DAILY PRN PRN SWELLING (Reported) Lovastatin 20 Mg Tablet 20 MG PO HS (Reported) Meloxicam 15 Mg Tablet 15 MG PO HS (Reported) Omeprazole 40 Mg Capsule.dr 40 MG PO HS (Reported) Paroxetine HCl 40 Mg Tablet 40 MG PO HS (Reported) Quetiapine Fumarate 300 Mg Tablet 300 MG PO HS (Reported) Tiotropium [place] 1 Inh Aerp 1 CAP INH DAILY (Reported) Constitutional: see HPINo chills, No fever Respiratory: no symptoms reported Cardiovascular: no symptoms reported Gastrointestinal: No abdominal pain, No nausea, No vomiting Skin: see HPI change in color lesions Past Hyzdrqa-Mjipjt-Uijdbq Hx Patient Social History Alcohol Use: Denies Use Recreational Drug Use: No Smoking Status: Current Everyday Smoker Type Used: Cigarettes 2nd Hand Smoke Exposure: No Recent Foreign Travel: No Contact w/Someone Who Travel: No Recent Infectious Disease Expo: No Recent Hopitalizations: No Immunizations Up To Date Tetanus Booster (TDap): Less than 5yrs Date of Pneumonia Vaccine: Jul 26, 2012 Date of Influenza Vaccine: Feb 13, 2014 Seasonal Allergies Seasonal Allergies: No Surgeries HX Surgeries: Yes (LUNG SURGERY FOR EMPYEMA, LEFT OVARIAN CYST REMOVAL; HYST/ BSO) Surgeries: Appendectomy, Section, Hysterectomy, Oophorectomy, Tonsillectomy Respiratory Hx Respiratory Disorders: Yes (EMPYEMA--S/P LUNG SURGERY FOR REMOVAL) Respiratory Disorders: Asthma Cardiovascular Hx Cardiac Disorders: Yes Cardiac Disorders: Hypertension Neurological Hx Neurological Disorders: No Reproductive System Hx Reproductive Disorders: Yes (MULTIPLE OVARIAN CYSTS. 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 Genitourinary Hx Genitourinary Disorders: No Gastrointestinal Hx Gastrointestinal Disorders: Yes Gastrointestinal Disorders: Gastroesophageal Reflux, Irritable Bowel Musculoskeletal Hx Musculoskeletal Disorders: Yes Musculoskeletal Disorders: Degenerate Disk Disease, Chronic Back Pain Endocrine Hx Endocrine Disorders: Yes (MORBID OBESTIY) HEENT HX ENT Disorders: Yes (WEARS GLASSES) Cancer Hx Cancer: No Psychosocial Hx Psychiatric Problems: Yes Behavioral Health Disorders: Sleep Difficulties, Anxiety, Depression Integumentary HX Skin/Integumentary Disorder: Yes (ABSCESSES, MULTIPLE WOUND INFECTIONS, STAPH) Blood Transfusions Hx Blood Disorders: No Reviewed Nursing Assessment Reviewed/Agree w Nursing PMH: Yes Family Medical History Significant Family History: No Pertinent Family Hx Family Medial History: Diabetes mellitus 19 MOTHER Headache disorder G8 SISTER Myocardial infarction 19 MOTHER STROKE 19 MOTHER Physical Exam Vital Signs Vital Sign - Last 12Hours 07/02/16 14:42 Temp 98.0 Pulse 90 Resp 18 B/P 112/74 Pulse Ox 93 Capillary Refill : Less Than 3 Seconds General Appearance: WD/WN no apparent distress HEENT: PERRL/EOMI pharynx normal Neck: full range of motion supple Cardiovascular: regular rate, rhythm no murmur Respiratory: lungs clear normal breath sounds Hand: Right, soft tissue tenderness, stiffness, swelling (all findings to the area of concern surrounding previous I&D site. There is surrounding erythema and induration.) Neurologic/Psychiatric: alert oriented x 3 Skin: warm/dry other (3 x 3 cm area of induration surrounding 1 x 1 cm area of wound to the dorsum of the right hand and the thumb web space. Small amount of purulent drainage expressed from wound.) Laceration Repair : Suture Size: 4-0 Progress/Results/Core Measures Results/Orders My Orders Orders-ARLENE MCDONALD MD Rx-Mupirocin 2% Oint (Rx-Bactroban) (07/02/16 14:46) Hydrocodone/Apap 7.5/325 Tab (Lortab 7. (07/02/16 14:46) Bactrim Ds Po (07/02/16 14:46) Wound Culture (07/02/16 14:46) Vital Signs/I&O Vital Sign - Last 12Hours 07/02/16 14:42 Temp 98.0 Pulse 90 Resp 18 B/P 112/74 Pulse Ox 93 Blood Pressure Mean: 87 Progress Note : Progress Note Seen and evaluated. Mupirocin ointment to wound. Bactrim DS one tab by mouth. Hydrocodone 7.5 mg by mouth given. Discharged home with return precautions. Patient verbalize understanding instructions and agreement with plan. Wound culture taken. Departure Impression Impression: Primary Impression: Cellulitis of right hand Disposition: HOME, SELF-CARE Condition: Improved Departure-Patient Inst. Decision time for Depature: 15:01 Referrals: [facility] (PCP/Family) Primary Care Physician Patient Instructions: Cellulitis (Skin Infection), Adult (DC) Add. Discharge Instructions: All discharge instructions reviewed with patient and/or family. Voiced understanding. Use antibiotic ointment over wound 2 or 3 times a day cover with Band-Aid. Take medications as directed. Follow-up with your DrJanet in 2-3 days for recheck. Return for worse pain, fever, vomiting, weakness, breathing problems, red streaks up the arm or other concerns as needed. Scripts Sulfamethoxazole/Trimethoprim (Sulfamethoxazole-Tmp Ds Tablet)1 Each Tablet1 Each PO BID #20 TAB Prov:ARLENE MCDONALD MD 07/02/16 Hydrocodone/Acetaminophen (Hydrocodon -Acetaminophen 5-325)1 Each Tablet1-2 Each PO Q6H PRN PAIN #12 TAB Prov:ARLENE MCDONALD MD 07/02/16 ARLENE MCDONALD MD Jul 02, 2016 14:59
[2016-07-02] MEDS ORDERED: SULF-222 PO (15:04)
[2016-07-02] MEDS ORDERED: HYDR-3812 PO (15:04)
[2016-07-02 15:22] VITALS: BP 115/70
[2016-07-22] MEDS ORDERED: SULF1TAB35 PO (20:15)
== END 2016-07-02 15:16 | disposition home or self-care (01) ==
LOC: EDUNIT# 14:31 → ER 14:34
DX: L03.114 Cellulitis of left upper limb (principal); E66.01 Morbid (severe) obesity due to excess calories; F17.210 Nicotine dependence, cigarettes, uncomplicated; Z79.899 Other long term (current) drug therapy
CPT/HCPCS: 87070; 87077; 87186; 87205; 99283

== ENCOUNTER 2016-07-07 15:30 | Emergency (ER) | payer MEDICAID ==
[~2016-07-07] VITALS: Ht 167.6 cm; Wt 136.2 kg
[~2016-07-07 15:30] MED LIST changes: +HYDR-3812 PO
[2016-07-07] MEDS ORDERED: HYDROcodone/APAP 7.5 MG/325 MG (LORTAB, LORCET PLUS) TABLET PO STA (16:10)
--- NOTE | 2016-07-07 16:12 | ED Integumentary General ---
General Chief Complaint: Skin/Wound Problems Stated Complaint: INFECTION Nursing Triage Note: PT REPORTS INFECTION TO R HAND. SHE WAS SEEN AND TX IN THIS ED ON 07/02/16. SHE REPORTS TAKING BACTRIM PRESCRIBED. PT REPORTS SHE NOW HAS STREAKING GOING UP HER HAND. Source: patient Exam Limitations: no limitations History of Present Illness Time seen by provider: 16:02 Initial Comments 46-year-old he will patient presents to the emergency department complains of an infection of the right hand. Patient was seen in the emergency department on 07/02/16 and prescribed Bactrim for cellulitis of the right hand. Patient reports she is now having streaking going up the right hand/forearm. Denies fevers. Patient states she has appointment scheduled with Mariel Vazquez APRN tomorrow at [facility] for recheck. Timing/Duration: week, getting worse Location: hands (rt hand) Possible Cause: no cause identified Modifying Factors: worse with other (worse with palpation) Allergies and Home Medications Allergies Coded Allergies: Penicillins (Unverified Allergy, Mild, 07/02/16) dimenhydrinate (Verified Allergy, Mild, 07/17/12) morphine (Unverified Allergy, Mild, RASH, 08/29/08) prochlorperazine (Unverified Allergy, Mild, 07/23/09) oxycodone (Unverified Allergy, Unknown, 05/14/10) Uncoded Allergies: ANTI-EMETICS (Allergy, Mild, 03/26/08) ANTI-NAUSEA MEDICATIONS EXCEPT DRAMAMINE (Allergy, Mild, MAKE HER HAVE ANXIETY ATTACKS, 08/29/08) ANTIEMETICS (Allergy, Mild, 12/09/08) NAUSEA MEDS (Allergy, Mild, 12/01/08) Home Medications Albuterol Sulfate 2.5 Mg/3 Ml Vial.neb 2.5 MG NEB TID PRN PRN SHORTNESS OF BREATH (Reported) Amlodipine Besylate 5 Mg Tablet 5 MG PO HS (Reported) Cetirizine HCl 10 Mg Tablet 10 MG PO DAILY (Reported) Clonidine HCl 0.1 Mg Tablet 0.1 MG PO TID (Reported) Hydrochlorothiazide 25 Mg Tablet 25 MG PO DAILY PRN PRN SWELLING (Reported) Hydrocodone/Acetaminophen 1 Each Tablet #12 1-2 EACH PO Q6H PRN PRN PAIN Prescribed by: ARLENE MCDONALD on 07/02/16 1504 Lovastatin 20 Mg Tablet 20 MG PO HS (Reported) Meloxicam 15 Mg Tablet 15 MG PO HS (Reported) Omeprazole 40 Mg Capsule.dr 40 MG PO HS (Reported) Paroxetine HCl 40 Mg Tablet 40 MG PO HS (Reported) Quetiapine Fumarate 300 Mg Tablet 300 MG PO HS (Reported) Sulfamethoxazole/Trimethoprim 1 Each Tablet #20 1 EACH PO BID Prescribed by: ARLENE MCDONALD on 07/02/16 1504 Tiotropium [place] 1 Inh Aerp 1 CAP INH DAILY (Reported) Constitutional: No chills, No fever, No malaise Respiratory: no symptoms reported Cardiovascular: no symptoms reported Musculoskeletal: see HPI joint pain (rt hand) Skin: see HPI change in color (erythema of the right hand with streaking up the rt forearm) Psychiatric/Neurological: No Symptoms Reported All Other Systems Reviewed Negative Unless Noted: Yes (Negative excepted noted.) Past Kejnqdr-Skefop-Nqfrym Hx Patient Social History Alcohol Use: Denies Use Recreational Drug Use: No Smoking Status: Current Everyday Smoker Type Used: Cigarettes 2nd Hand Smoke Exposure: No Recent Foreign Travel: No Contact w/Someone Who Travel: No Recent Infectious Disease Expo: No Recent Hopitalizations: No Immunizations Up To Date Tetanus Booster (TDap): Less than 5yrs Date of Pneumonia Vaccine: Jul 26, 2012 Date of Influenza Vaccine: Feb 13, 2014 Seasonal Allergies Seasonal Allergies: No Surgeries HX Surgeries: Yes (LUNG SURGERY FOR EMPYEMA, LEFT OVARIAN CYST REMOVAL; HYST/ BSO) Surgeries: Appendectomy, Section, Hysterectomy, Oophorectomy, Tonsillectomy Respiratory Hx Respiratory Disorders: Yes (EMPYEMA--S/P LUNG SURGERY FOR REMOVAL) Respiratory Disorders: Asthma Cardiovascular Hx Cardiac Disorders: Yes Cardiac Disorders: Hypertension Neurological Hx Neurological Disorders: No Reproductive System Hx Reproductive Disorders: Yes (MULTIPLE OVARIAN CYSTS. 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 Genitourinary Hx Genitourinary Disorders: No Gastrointestinal Hx Gastrointestinal Disorders: Yes Gastrointestinal Disorders: Gastroesophageal Reflux, Irritable Bowel Musculoskeletal Hx Musculoskeletal Disorders: Yes Musculoskeletal Disorders: Degenerate Disk Disease, Chronic Back Pain Endocrine Hx Endocrine Disorders: Yes (MORBID OBESTIY) HEENT HX ENT Disorders: Yes (WEARS GLASSES) Cancer Hx Cancer: No Psychosocial Hx Psychiatric Problems: Yes Behavioral Health Disorders: Sleep Difficulties, Anxiety, Depression Integumentary HX Skin/Integumentary Disorder: Yes (ABSCESSES, MULTIPLE WOUND INFECTIONS, STAPH) Blood Transfusions Hx Blood Disorders: No Reviewed Nursing Assessment Reviewed/Agree w Nursing PMH: Yes Family Medical History Significant Family History: No Pertinent Family Hx Family Medial History: Diabetes mellitus 19 MOTHER Headache disorder G8 SISTER Myocardial infarction 19 MOTHER STROKE 19 MOTHER Physical Exam Vital Signs Vital Sign - Last 12Hours 07/07/16 15:35 Temp 99.0 Pulse 85 Resp 16 B/P 120/82 Pulse Ox 97 O2 Delivery Room Air Capillary Refill : Less Than 3 Seconds General Appearance: WD/WN no apparent distress other (patient sitting on the side of the bed playing games on her phone.) Cardiovascular: normal peripheral pulses regular rate, rhythm no murmur Respiratory: lungs clear normal breath sounds no respiratory distress Extremities: normal capillary refill other (erythema, warmth, swelling and tenderness of the right thenar region with streaking up the forearm to the elbow. scab noted over the posterior 1st metacarpal w/o active drainage.) Neurologic/Psychiatric: no motor/sensory deficits alert normal mood/affect oriented x 3 Skin: warm/dryNo cyanosis, No cool, No ecchymosis, No mottled, No pallor, other (erythema, warmth, swelling and tenderness of the right thenar region with streaking up the forearm to the elbow. scab noted over the posterior 1st metacarpal w/o active drainage.) Skin Problem Location: upper extremities (rt hand/forearm) Skin Problem Character: erythema, swelling, tenderness, warm, other Laceration Repair : Suture Size: 4-0 Progress/Results/Core Measures Results/Orders Lab Results Laboratory Tests Test 07/07/16 16:25 Range/Units Basophils # (Auto) 0.1 0.0-0.1 10^3/uL Basophils (%) (Auto) 1 0-10 % Eosinophils # (Auto) 0.4 H 0.0-0.3 10^3/uL Eosinophils (%) (Auto) 4 0-10 % Hematocrit 38 35-52 % Hemoglobin 11.5 11.5-16.0 G/DL Lymphocytes # (Auto) 2.2 1.0-4.0 X 10^3 Lymphocytes (%) (Auto) 25 12-44 % Mean Corpuscular Hemoglobin 25 25-34 PG Mean Corpuscular Hemoglobin Concent 31 L 32-36 G/DL Mean Corpuscular Volume 80 80-99 FL Mean Platelet Volume 10.1 7.4-10.4 FL Monocytes # (Auto) 1.0 0.0-1.0 X 10^3 Monocytes (%) (Auto) 11 0-12 % Neutrophils # (Auto) 5.1 1.8-7.8 X 10^3 Neutrophils (%) (Auto) 58 42-75 % Platelet Count 307 130-400 10^3/uL Red Blood Count 4.70 4.35-5.85 10^6/uL Red Cell Distribution Width 19.1 H 10.0-14.5 % White Blood Count 8.8 4.3-11.0 10^3/uL My Orders Orders-SOMMER DU Cbc With Automated Diff (07/07/16 16:10) Hs C Reactive Protein (07/07/16 16:10) Ceftriaxone Injection (Rocephin Injectio (07/07/16 16:15) Hydrocodone/Apap 7.5/325 Tab (Lortab 7. (07/07/16 16:10) Lidocaine 1% Injection (Xylocaine 1% Inj (07/07/16 16:15) Medications Given in ED Current Medications Medications Dose Ordered Sig/Jesus Route Start Time Stop Time Status Last Admin Dose Admin Ceftriaxone Sodium 1,000 mg ONCE ONCE IM 07/07/16 16:15 07/07/16 16:16 DC 07/07/16 16:42 1,000 MG Lidocaine HCl 2.1 ml ONCE ONCE INJ 07/07/16 16:15 07/07/16 16:16 DC 07/07/16 16:42 2.1 ML Vital Signs/I&O Vital Sign - Last 12Hours 07/07/16 15:35 Temp 99.0 Pulse 85 Resp 16 B/P 120/82 Pulse Ox 97 O2 Delivery Room Air Blood Pressure Mean: 95 Departure Communication Progress Notes Culture results from the ED visit on 07/02/16 reviewed with findings of 4 bacteria including E Coli, leclercia adecarboxylata, enterococcus faecalis, and strep anginosus. All bacteria except leclercia are resistent to bactrim. All laboratory findings as well as microbiology results from the previous culture discussed with the patient. Plan for discharge to home with oral Omnicef and erythromycin. Patient was given 1 dose of Rocephin IM in the emergency department. Patient to follow-up tomorrow as previously scheduled with [facility]. All return precautions were discussed with the patient as described in the discharge instructions of this report. Patient voices understanding and agrees with the treatment plan. Impression Impression: Primary Impression: Cellulitis of right hand Disposition: HOME, SELF-CARE Condition: Improved Departure-Patient Inst. Decision time for Depature: 16:51 Referrals: [facility] (PCP/Family) Primary Care Physician Patient Instructions: Cellulitis (Skin Infection), Adult (DC) Add. Discharge Instructions: All discharge instructions reviewed with patient and/or family. Voiced understanding. Medications as instructed. Ibuprofen 800 mg by mouth every 8 hours as needed for pain. Follow-up with Mariel Vazquez at [facility] tomorrow as previously scheduled. Elevate the right upper extremity above the level of the heart as much as possible. Shower with antibacterial soap. Return to the emergency department for worsened redness, pain, drainage, fever, or any other concerns. Scripts Hydrocodone/Acetaminophen (Hydrocodon -Acetaminophen 5-325)1 Each Tablet1 Each PO Q4H PRN PAIN #10 TAB Ref 0 Prov:SOMMER DU 07/07/16 Erythromycin Base (Erythromycin)500 Mg [id number] Mg PO BID #20 TAB Ref 0 Prov:SOMMER DU 07/07/16 Cefdinir 300 Mg [id number] Mg PO BID #20 CAP Ref 0 Prov:SOMMER DU 07/07/16 SOMMER DU Jul 07, 2016 16:12
[2016-07-07] MEDS ORDERED: cefTRIAXone 1 GM (ROCEPHIN) VIAL IM ONE (16:15)
[2016-07-07] MEDS ORDERED: LIDOCAINE 1% INJ 20 ML (XYLOCAINE) VIAL INJ ONE (16:15)
[2016-07-07 16:31] LABS: BASOPHILS # (AUTO) 0.1 10^3/uL (0.0-0.1); BASOPHILS % (AUTO) 1 % (0-10); EOSINOPHILS # (AUTO) 0.4 10^3/uL (0.0-0.3); EOSINOPHILS % (AUTO) 4 % (0-10); LYMPHOCYTES # (AUTO) 2.2 X 10^3 (1.0-4.0); LYMPHOCYTES % (AUTO) 25 % (12-44); MEAN CORPUSCULAR HEMOGLOBIN 25 PG (25-34); MEAN CORPUSCULAR HGB CONC 31 G/DL (32-36); MEAN CORPUSCULAR VOLUME 80 FL (80-99); MEAN PLATELET VOLUME 10.1 FL (7.4-10.4); MONOCYTES % (AUTO) 11 % (0-12); NEUTROPHILS # (AUTO) 5.1 X 10^3 (1.8-7.8); NEUTROPHILS % (AUTO) 58 % (42-75); PLATELET COUNT 307 10^3/uL (130-400); RED CELL DISTRIBUTION WIDTH 19.1 % (10.0-14.5); WHITE BLOOD COUNT 8.8 10^3/uL (4.3-11.0)
[2016-07-07] MEDS ORDERED: HYDR-3812 PO (16:55)
[2016-07-07] MEDS ORDERED: CEFD300C3 PO (16:55)
[2016-07-07] MEDS ORDERED: ERYT-96 PO (16:55)
[2016-07-07 17:08] VITALS: BP 120/82
[2016-07-22] MEDS ORDERED: SULF1TAB35 PO (20:15)
== END 2016-07-07 17:09 | disposition home or self-care (01) ==
LOC: EDUNIT# 15:30 → ER 15:31
DX: L03.113 Cellulitis of right upper limb (principal); I10 Essential (primary) hypertension; E66.01 Morbid (severe) obesity due to excess calories; F17.210 Nicotine dependence, cigarettes, uncomplicated; Z79.899 Other long term (current) drug therapy
CPT/HCPCS: 36415; 85025; 86141; 96372; 99281

== ENCOUNTER 2016-07-12 10:17 | Day surgery (SDC) | payer MEDICAID ==
[~2016-07-12] VITALS: Ht 167.6 cm; Wt 136.2 kg
[~2016-07-12 10:17] MED LIST changes: +CEFD300C3 PO; +ERYT-96 PO
--- NOTE | 2016-07-12 11:18 | ED Upper Extremity ---
General Chief Complaint: Upper Extremity Stated Complaint: INFECTION IN RIGHT HAND Source: patient Exam Limitations: no limitations (TAE QUINONES APRN) History of Present Illness Time seen by provider: 11:16 Initial Comments Sent to ER from wound care with reports of wound to the dorsal aspect of the base of the thumb on the right. This began a few weeks after she reached into her garbage disposal in her sink and externally got a metal shaving into this location in her hand. She removed 2 of the metal shavings on her own at home and had to come here to have the other removed. She was placed on Bactrim empirically. She returned a few days later with redness and swelling. The wound was cultured and grew several different organisms. She reports chills but no measured fevers. She has pain with active and passive flexion and extension of the thumb. Onset: just prior to arrival Pain/Injury Location: right thumb Method of Injury: other Modifying Factors: Worse With Movement (TAE QUINONES APRN) Allergies and Home Medications Allergies Coded Allergies: Penicillins (Unverified Allergy, Mild, 07/02/16) dimenhydrinate (Verified Allergy, Mild, 07/17/12) morphine (Unverified Allergy, Mild, RASH, 08/29/08) prochlorperazine (Unverified Allergy, Mild, 07/23/09) oxycodone (Unverified Allergy, Unknown, 05/14/10) Uncoded Allergies: ANTI-EMETICS (Allergy, Mild, 03/26/08) ANTI-NAUSEA MEDICATIONS EXCEPT DRAMAMINE (Allergy, Mild, MAKE HER HAVE ANXIETY ATTACKS, 08/29/08) ANTIEMETICS (Allergy, Mild, 12/09/08) NAUSEA MEDS (Allergy, Mild, 12/01/08) Home Medications Albuterol Sulfate 2.5 Mg/3 Ml Vial.neb 2.5 MG NEB TID PRN PRN SHORTNESS OF BREATH (Reported) Amlodipine Besylate 5 Mg Tablet 5 MG PO HS (Reported) Cefdinir 300 Mg Capsule #20 300 MG PO BID Prescribed by: SOMMER DU on 07/07/16 3620 Cetirizine HCl 10 Mg Tablet 10 MG PO DAILY (Reported) Clonidine HCl 0.1 Mg Tablet 0.1 MG PO TID (Reported) Erythromycin Base 500 Mg Tablet #20 500 MG PO BID Prescribed by: SOMMER DU on 07/07/16 1655 Hydrochlorothiazide 25 Mg Tablet 25 MG PO DAILY PRN PRN SWELLING (Reported) Hydrocodone/Acetaminophen 1 Each Tablet #12 1-2 EACH PO Q6H PRN PRN PAIN Prescribed by: ARLENE MCDONALD on 07/02/16 1504 Hydrocodone/Acetaminophen 1 Each Tablet #10 1 EACH PO Q4H PRN PRN PAIN Prescribed by: SOMMER DU on 07/07/16 1655 Lovastatin 20 Mg Tablet 20 MG PO HS (Reported) Meloxicam 15 Mg Tablet 15 MG PO HS (Reported) Omeprazole 40 Mg Capsule.dr 40 MG PO HS (Reported) Paroxetine HCl 40 Mg Tablet 40 MG PO HS (Reported) Quetiapine Fumarate 300 Mg Tablet 300 MG PO HS (Reported) Sulfamethoxazole/Trimethoprim 1 Each Tablet #20 1 EACH PO BID Prescribed by: ARLENE MCDONALD on 07/02/16 1504 Tiotropium [place] 1 Inh Aerp 1 CAP INH DAILY (Reported) Constitutional: see HPI EENTM: see HPI Respiratory: no symptoms reported Cardiovascular: no symptoms reported Genitourinary: no symptoms reported Musculoskeletal: see HPI Skin: no symptoms reported Psychiatric/Neurological: No Symptoms Reported (TAE QUINONES APRN) Past Imyepjk-Gsirmo-Qycroi Hx Patient Social History Type Used: Cigarettes 2nd Hand Smoke Exposure: No Recent Foreign Travel: No Contact w/Someone Who Travel: No Recent Hopitalizations: No (TAE QUINONES APRN) Immunizations Up To Date Tetanus Booster (TDap): Less than 5yrs Date of Pneumonia Vaccine: Jul 26, 2012 Date of Influenza Vaccine: Feb 13, 2014 (TAE QUINONES APRN) Seasonal Allergies Seasonal Allergies: No (TAE QUINONES APRN) Surgeries HX Surgeries: Yes (LUNG SURGERY FOR EMPYEMA, LEFT OVARIAN CYST REMOVAL; HYST/ BSO) Surgeries: Appendectomy, Section, Hysterectomy, Oophorectomy, Tonsillectomy (TAE QUINONES APRN) Respiratory Hx Respiratory Disorders: Yes (EMPYEMA--S/P LUNG SURGERY FOR REMOVAL) Respiratory Disorders: Asthma (TAE QUINONES APRN) Cardiovascular Hx Cardiac Disorders: Yes Cardiac Disorders: Hypertension (TAE QUINONES APRN) Neurological Hx Neurological Disorders: No (TAE QUINONES APRN) Reproductive System Hx Reproductive Disorders: Yes (MULTIPLE OVARIAN CYSTS. 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 (TAE QUINONES APRN) Genitourinary Hx Genitourinary Disorders: No (TAE QUINONES APRN) Gastrointestinal Hx Gastrointestinal Disorders: Yes Gastrointestinal Disorders: Gastroesophageal Reflux, Irritable Bowel (TAE QUINONES APRN) Musculoskeletal Hx Musculoskeletal Disorders: Yes Musculoskeletal Disorders: Degenerate Disk Disease, Chronic Back Pain (TAE QUINONES APRN) Endocrine Hx Endocrine Disorders: Yes (MORBID OBESTIY) (TAE QUINONES APRN) HEENT HX ENT Disorders: Yes (WEARS GLASSES) (TAE QUINONES APRN) Cancer Hx Cancer: No (TAE QUINONES APRN) Psychosocial Hx Psychiatric Problems: Yes Behavioral Health Disorders: Sleep Difficulties, Anxiety, Depression (TAE QUINONES APRN) Integumentary HX Skin/Integumentary Disorder: Yes (ABSCESSES, MULTIPLE WOUND INFECTIONS, STAPH) (TAE QUINONES APRN) Blood Transfusions Hx Blood Disorders: No (TAE QUINONES APRN) Family Medical History Significant Family History: No Pertinent Family Hx Family Medial History: Diabetes mellitus 19 MOTHER Headache disorder G8 SISTER Myocardial infarction 19 MOTHER STROKE 19 MOTHER (TAE QUINONES APRN) Family Medial History: Diabetes mellitus 19 MOTHER Headache disorder G8 SISTER Myocardial infarction 19 MOTHER STROKE 19 MOTHER (ARLENE MCDONALD MD) Physical Exam Vital Signs Vital Sign - Last 12Hours 07/12/16 11:15 Temp 97.7 Pulse 65 Resp 18 B/P 144/69 Pulse Ox 97 O2 Delivery Room Air (ARLENE MCDONALD MD) Vital Signs Capillary Refill : (TAE QUINONES APRN) General Appearance: WD/WN no apparent distress HEENT: PERRL/EOMI normal ENT inspection Neck: non-tender full range of motion Respiratory: no respiratory distress no accessory muscle use Gastrointestinal: non tender soft Shoulder: normal inspection non-tender Elbow/Forearm: normal inspection, Right Wrist: Yes normal inspection, Yes non-tender Hand: Right, infection, limited ROM, soft tissue tenderness, stiffness, swelling Neurologic/Psychiatric: alert normal mood/affect oriented x 3 Skin: normal color warm/dry (TAE QUINONES APRN) Cardiovascular: regular rate, rhythm no murmur (ARLENE MCDONALD MD) Laceration Repair : Suture Size: 4-0 (TAE QUINONES APRN) Progress/Results/Core Measures Results/Orders Lab Results Laboratory Tests Test 07/12/16 11:34 Range/Units Alanine Aminotransferase (ALT/SGPT) 47 0-55 U/L Albumin 3.6 3.2-4.5 G/DL Alkaline Phosphatase 162 H 40-136 U/L Anion Gap 12 5-14 MMOL/L Aspartate Amino Transf (AST/SGOT) 36 H 5-34 U/L BUN/Creatinine Ratio 14 Basophils # (Auto) 0.1 0.0-0.1 10^3/uL Basophils (%) (Auto) 1 0-10 % Blood Urea Nitrogen 12 7-18 MG/DL Calcium Level 8.9 8.5-10.1 MG/DL Carbon Dioxide Level 21 21-32 MMOL/L Chloride Level 104 98-107 MMOL/L Creatinine 0.85 0.60-1.30 MG/DL Eosinophils # (Auto) 0.5 H 0.0-0.3 10^3/uL Eosinophils (%) (Auto) 6 0-10 % Estimat Glomerular Filtration Rate > 60 Glucose Level 112 H 70-105 MG/DL Hematocrit 38 35-52 % Hemoglobin 11.5 11.5-16.0 G/DL Lymphocytes # (Auto) 2.1 1.0-4.0 X 10^3 Lymphocytes (%) (Auto) 26 12-44 % Mean Corpuscular Hemoglobin 24 L 25-34 PG Mean Corpuscular Hemoglobin Concent 30 L 32-36 G/DL Mean Corpuscular Volume 80 80-99 FL Mean Platelet Volume 10.8 H 7.4-10.4 FL Monocytes # (Auto) 0.8 0.0-1.0 X 10^3 Monocytes (%) (Auto) 9 0-12 % Neutrophils # (Auto) 4.7 1.8-7.8 X 10^3 Neutrophils (%) (Auto) 58 42-75 % Platelet Count 326 130-400 10^3/uL Potassium Level 4.1 3.6-5.0 MMOL/L Red Blood Count 4.73 4.35-5.85 10^6/uL Red Cell Distribution Width 19.2 H 10.0-14.5 % Sodium Level 137 135-145 MMOL/L Total Bilirubin 0.2 0.1-1.0 MG/DL Total Protein 7.0 6.4-8.2 G/DL White Blood Count 8.2 4.3-11.0 10^3/uL (ARLENE MCDONALD MD) Medications Given in ED Current Medications Medications Dose Ordered Sig/Jesus Route Start Time Stop Time Status Last Admin Dose Admin Ketorolac Tromethamine 30 mg ONCE ONCE IVP 07/12/16 11:30 07/12/16 11:31 DC 07/12/16 11:49 30 MG (ARLENE MCDONALD MD) Medications Given in ED Current Medications Medications Dose Ordered Sig/Jesus Route Start Time Stop Time Status Last Admin Dose Admin Ketorolac Tromethamine 30 mg ONCE ONCE IVP 07/12/16 11:30 07/12/16 11:31 DC 07/12/16 11:49 30 MG (TAE QUINONES APRN) Vital Signs/I&O Vital Sign - Last 12Hours 07/12/16 11:15 Temp 97.7 Pulse 65 Resp 18 B/P 144/69 Pulse Ox 97 O2 Delivery Room Air (ARLENE MCDONALD MD) Progress Note : Progress Note I have seen and evaluated the patient. I have discussed the case with Tae Quinones APRN. I reviewed reviewed and agree with the plan of care. Patient has increasing wound with purulent drainage from wound and history of red streaks up the arm. She states that is a little bit improved but still has pain radiating from the thumb up the arm to above the level of the elbow. She has pain with active and passive range of motion of the thumb. I have discussed the case with Dr. Evans and she agrees to admission, inpatient status. Patient does require IV antibiotics due to multidrug resistant organisms with one organism only susceptible to IV antibiotics. This is discussed with the patient who agrees with plan. (ARLENE MCDONALD MD) Departure Communication Time/Spoke to Admitting Phy: 12:[address] Evans. We will admit the patient with orthopedics consult Time/Spoke to Consulting Physi: 12:07 Communication/Consulting Discussed with Dr. Fierro. He will consult. Progress Notes Rocephin and vancomycin has been chosen for IV therapy based on culture results obtained on 07/02/16. Patient is not septic. Please see the culture and sensitivity report from 07/02/16. Based on sensitivity with one organism only susceptible to IV antibiotics, failure to improve with oral antibiotics, patient needs admission. (TAE QUINONES APRN) Impression Impression: Primary Impression: Infectious tenosynovitis Additional Impression: Cellulitis of right hand Disposition: ADMITTED INPATIENT Condition: Stable Decision to Admit Reason: Admit from ER (General) Decision to Admit/Date: Jul 12, 2016 Time/Decision to Admit Time: 12:07 (TAE QUINONES APRN) Departure-Patient Inst. Referrals: [facility] (PCP/Family) Primary Care Physician TAE QUINONES APRN Jul 12, 2016 11:18 ARLENE MCDONALD MD Jul 12, 2016 12:16
[2016-07-12] MEDS ORDERED: KETOROLAC 30 MG/ML VIAL IVP ONE (11:30)
[2016-07-12] MEDS ORDERED: VANCOMYCIN INJECTION 1,500 MG in NS IV 500 ML 500 ML IV SCH (11:30)
[2016-07-12 11:41] LABS: BASOPHILS # (AUTO) 0.1 10^3/uL (0.0-0.1); BASOPHILS % (AUTO) 1 % (0-10); EOSINOPHILS # (AUTO) 0.5 10^3/uL (0.0-0.3); EOSINOPHILS % (AUTO) 6 % (0-10); LYMPHOCYTES # (AUTO) 2.1 X 10^3 (1.0-4.0); LYMPHOCYTES % (AUTO) 26 % (12-44); MEAN CORPUSCULAR HEMOGLOBIN 24 PG (25-34); MEAN CORPUSCULAR HGB CONC 30 G/DL (32-36); MEAN CORPUSCULAR VOLUME 80 FL (80-99); MEAN PLATELET VOLUME 10.8 FL (7.4-10.4); MONOCYTES # (AUTO) 0.8 X 10^3 (0.0-1.0); MONOCYTES % (AUTO) 9 % (0-12); NEUTROPHILS # (AUTO) 4.7 X 10^3 (1.8-7.8); NEUTROPHILS % (AUTO) 58 % (42-75); PLATELET COUNT 326 10^3/uL (130-400); RED BLOOD COUNT 4.73 10^6/uL (4.35-5.85); RED CELL DISTRIBUTION WIDTH 19.2 % (10.0-14.5); WHITE BLOOD COUNT 8.2 10^3/uL (4.3-11.0)
[2016-07-12] MEDS ORDERED: ORPHENADRINE 60 MG/2 ML (NORFLEX) AMP IM ONE (12:00)
[2016-07-12 12:03] LABS: ALANINE AMINOTRANSFERASE 47 U/L (0-55); ALBUMIN 3.6 G/DL (3.2-4.5); ANION GAP 12 MMOL/L (5-14); ASPARTATE AMINO TRANSFERASE 36 U/L (5-34); BILIRUBIN,TOTAL 0.2 MG/DL (0.1-1.0); BLOOD UREA NITROGEN 12 MG/DL (7-18); BUN/CREATININE RATIO 14; CALCIUM 8.9 MG/DL (8.5-10.1); CARBON DIOXIDE 21 MMOL/L (21-32); CHLORIDE 104 MMOL/L (98-107); CREATININE SERUM 0.85 MG/DL (0.60-1.30); GFR ESTIMATED > 60; GLUCOSE 112 MG/DL (70-105); POTASSIUM 4.1 MMOL/L (3.6-5.0); SODIUM 137 MMOL/L (135-145)
[2016-07-12] MEDS ORDERED: CATHETER FLUSH 10 ML SYR IV PRN (13:30)
[2016-07-12] MEDS ORDERED: FLU TRIvalent (5 YOA+) 2016-17 (AFLURIA) 0.5 ML IM ONE (13:45)
[2016-07-12] MEDS: CATHETER FLUSH 10 ML SYR IV SCH ×2 (15:36→22:00)
[2016-07-12] MEDS: cefTRIAXone 1 GM/NS 50 ML IVPB IV SCH ×2 (15:37)
[2016-07-12 16:23] VITALS: BP 99/64
[2016-07-12] MEDS ORDERED: ORPH100T PO (17:17)
[2016-07-12] MEDS ORDERED: QUET100T69 PO (17:17)
[2016-07-12] MEDS ORDERED: AMLO5TAB2 PO (17:17)
[2016-07-12] MEDS ORDERED: ACET1TAB43 PO (17:17)
[2016-07-12] MEDS ORDERED: ERYT-96 PO (17:17)
[2016-07-12] MEDS ORDERED: GABA600T2 PO (17:17)
[2016-07-12] MEDS ORDERED: CLON0.5T3 PO (17:17)
[2016-07-12] MEDS ORDERED: CEFD300C3 PO (17:17)
[2016-07-12] MEDS ORDERED: NORT50CA PO (17:18)
[2016-07-12] MEDS ORDERED: ORPHENADRINE 60 MG/2 ML (NORFLEX) AMP IM PRN (18:00)
[2016-07-12] MEDS: KETOROLAC 30 MG/ML VIAL IVP PRN (18:18)
--- NOTE | 2016-07-12 18:20 | Consultation ---
History of Present Illness History of Present Illness Patient Consulted On(alexi/time) 07/12/16 17:42 Date of Admission History of Present Illness History of Present Illness Presents with wound to the dorsal aspect of the base of the thumb on the right. According to her chart, her symptoms began a few weeks after she reached into her garbage disposal in her sink and externally got a metal shaving into this location in her hand. She removed 2 of the metal shavings on her own at home and came to the ED to have the other removed. She was placed on Bactrim empirically. She returned a few days later with redness and swelling. The wound was cultured and grew several different organisms. She reports chills but no fevers. She has pain with active and passive flexion and extension of the thumb. Her active flexion is limited. Onset: just prior to arrival Pain/Injury Location: right thumb Method of Injury: other Modifying Factors: Worse With Movement Allergies and Home Medications Allergies Coded Allergies: Penicillins (Unverified Allergy, Mild, 07/02/16) dimenhydrinate (Verified Allergy, Mild, 07/17/12) morphine (Unverified Allergy, Mild, RASH, 08/29/08) prochlorperazine (Unverified Allergy, Mild, 07/23/09) oxycodone (Unverified Allergy, Unknown, 05/14/10) Uncoded Allergies: ANTI-EMETICS (Allergy, Mild, 03/26/08) ANTI-NAUSEA MEDICATIONS EXCEPT DRAMAMINE (Allergy, Mild, MAKE HER HAVE ANXIETY ATTACKS, 08/29/08) ANTIEMETICS (Allergy, Mild, 12/09/08) NAUSEA MEDS (Allergy, Mild, 12/01/08) Home Medications Acetaminophen with Codeine 1 Each Tablet 1 TAB PO TID PRN PRN PAIN (Reported) Albuterol Sulfate 2.5 Mg/3 Ml Vial.neb 2.5 MG NEB TID PRN PRN SHORTNESS OF BREATH (Reported) Amlodipine Besylate 5 Mg Tablet 5 MG PO HS (Reported) Amlodipine Besylate 5 Mg Tablet 5 MG PO DAILY (Reported) Cefdinir 300 Mg Capsule 300 MG PO BID (Reported) FILLED 07/07/16 #20 FOR A 10 DAY THERAPY Cetirizine HCl 10 Mg Tablet 10 MG PO DAILY (Reported) Clonazepam 0.5 Mg Tablet 0.5 MG PO BID (Reported) Clonidine HCl 0.1 Mg Tablet 0.1 MG PO TID (Reported) Erythromycin Base 500 Mg Tablet 500 MG PO Q12H (Reported) FILLED 07/07/16 #20 FOR A 10 DAY THERAPY Gabapentin 600 Mg Tablet 600 MG PO BID (Reported) Hydrochlorothiazide 25 Mg Tablet 25 MG PO DAILY (Reported) Lovastatin 20 Mg Tablet 20 MG PO HS (Reported) Meloxicam 15 Mg Tablet 15 MG PO HS (Reported) Nortriptyline HCl 50 Mg Capsule 50 MG PO DAILY (Reported) Omeprazole 40 Mg Capsule.dr 40 MG PO HS (Reported) Orphenadrine Citrate 100 Mg Tablet.er 100 MG PO BID PRN PRN MUSCLE SPASMS ( Reported) Paroxetine HCl 40 Mg Tablet 40 MG PO HS (Reported) Quetiapine Fumarate 300 Mg Tablet 300 MG PO HS (Reported) Quetiapine Fumarate 100 Mg Tablet 100 MG PO BID PRN PRN MOOD (Reported) Past Ksayjgc-[id number]-Jnokqm Hx Patient Social History Alcohol Use: Denies Use Recreational Drug Use: No Smoking Status: Current Everyday Smoker Type Used: Cigarettes 2nd Hand Smoke Exposure: No Recent Foreign Travel: No Contact w/Someone Who Travel: No Recent Infectious Disease Expo: No Recent Hopitalizations: No Physical Abuse Screen: No Sexual Abuse: No Immunizations Up To Date Tetanus Booster (TDap): Less than 5yrs Date of Pneumonia Vaccine: Jul 26, 2012 Date of Influenza Vaccine: Feb 13, 2014 Seasonal Allergies Seasonal Allergies: No Surgeries HX Surgeries: Yes (LUNG SURGERY FOR EMPYEMA, LEFT OVARIAN CYST REMOVAL; HYST/ BSO) Surgeries: Appendectomy, Section, Hysterectomy, Oophorectomy, Tonsillectomy Respiratory Hx Respiratory Disorders: Yes (EMPYEMA--S/P LUNG SURGERY FOR REMOVAL) Respiratory Disorders: Asthma Cardiovascular Hx Cardiac Disorders: Yes Cardiac Disorders: Hypertension Neurological Hx Neurological Disorders: No Reproductive System : No Hx Reproductive Disorders: Yes (MULTIPLE OVARIAN CYSTS. 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 [employer] WORK[employer] History: Hysterectomy Genitourinary Hx Genitourinary Disorders: No Gastrointestinal Hx Gastrointestinal Disorders: Yes Gastrointestinal Disorders: Gastroesophageal Reflux, Irritable Bowel Musculoskeletal Hx Musculoskeletal Disorders: Yes Musculoskeletal Disorders: Degenerate Disk Disease, Chronic Back Pain Endocrine Hx Endocrine Disorders: Yes (MORBID OBESTIY) HEENT HX ENT Disorders: Yes (WEARS GLASSES) Hearing Impairment: Denies Cancer Hx Cancer: No Psychosocial Hx Psychiatric Problems: Yes Behavioral Health Disorders: Sleep Difficulties, Anxiety, Depression Integumentary HX Skin/Integumentary Disorder: Yes (ABSCESSES, MULTIPLE WOUND INFECTIONS, STAPH) Blood Transfusions Hx Blood Disorders: No Family Medical History Significant Family History: No Pertinent Family Hx Family Medial History: Diabetes mellitus 19 MOTHER Headache disorder G8 SISTER Myocardial infarction 19 MOTHER STROKE 19 MOTHER Physical Exam-General Problems Physical Exam Vital Signs Vital Sign - Last 12Hours 07/12/16 11:15 Temp 97.7 Pulse 65 Resp 18 B/P 144/69 Pulse Ox 97 O2 Delivery Room Air Capillary Refill : Less Than 3 Seconds Assessment/Plan Assessment/Plan Admission Diagnosis/Plan Plans: I&D Right Thumb Plan discussed with patient. She understands surgical risks and possible outcomes. Dx: Infectious Tenosynovitis Clinical Quality Measures DVT/VTE Risk/Contraindication: Risk Factor Score Per Nursin RFS Level Per Nursing on Admit: 3=High TABATHA COLLINS APRN Jul 12, 2016 18:19
[2016-07-12 19:59] VITALS: BP 122/80
[2016-07-12] MEDS: VANCOMYCIN 1500 MG/NS 500 ML IVPB IV SCH ×2 (20:47)
[2016-07-12] MEDS ORDERED: QUEtiapine 100 MG (SEROquel) TAB IMMEDIATE RELEASE PO SCH (21:00)
[2016-07-12 23:38] LABS: BILIRUBIN,URINE NEGATIVE (NEGATIVE); KETONES,URINE NEGATIVE (NEGATIVE); LEUKOCYTE ESTERASE ,URINE NEGATIVE (NEGATIVE); NITRITE,URINE NEGATIVE (NEGATIVE); PH,URINE 6 (5-9); PROTEIN,URINE NEGATIVE (NEGATIVE); UROBILINOGEN,URINE NORMAL (NORMAL)
[2016-07-12 23:50] LABS: SQUAMOUS EPITHELIAL CELL,UR 0-2 /HPF
[2016-07-13] VITALS (8 sets, daily range): BP systolic 119–143; BP diastolic 58–83
[2016-07-13] MEDS: KETOROLAC 30 MG/ML VIAL IVP PRN ×4 (00:28→18:37)
[2016-07-13] MEDS: VANCOMYCIN 1500 MG/NS 500 ML IVPB IV SCH ×2 (04:23)
[2016-07-13] MEDS: CATHETER FLUSH 10 ML SYR IV SCH ×3 (06:00→17:11)
[2016-07-13] MEDS: clonazePAM 1 MG (KlonoPIN) TAB PO SCH ×2 (08:31→13:58)
[2016-07-13] MEDS: cefTRIAXone 1 GM/NS 50 ML IVPB IV SCH ×2 (08:31)
[2016-07-13] MEDS ORDERED: MIDAZOLAM 2 MG/2 ML (VERSED) VIAL ONE (10:38)
[2016-07-13] MEDS ORDERED: fentaNYL INJECTION 100 MCG/2 ML AMP ONE ×2 (10:38→11:18)
[2016-07-13] MEDS ORDERED: proPOfol 200 MG/20 ML (DIPRIVAN) VIAL IV ONE (10:38)
[2016-07-13] MEDS ORDERED: TROUGH ORDER-PHARMACY XX NR (11:00)
[2016-07-13] MEDS ORDERED: GENTAMICIN 40 MG/ML 2 ML INJ SDV ONE (11:04)
[2016-07-13] MEDS ORDERED: SEVOFLURANE (ULTANE) 15 ML INHAL SOLN ONE (11:35)
[2016-07-13] MEDS ORDERED: LACTATED RINGERS 1,000 ML IV ONE (11:35)
--- NOTE | 2016-07-13 12:06 | Procedure Note ---
Procedure Note Vital Signs Vital Signs Date Time Temp Pulse Resp B/P Pulse Ox O2 Delivery O2 Flow Rate FiO2 07/13/16 23:07 81 20 126/67 96 2.00 07/13/16 21:00 Room Air 07/13/16 20:00 97.5 Procedure Note Post Op note I and D right wrist, no tendon or bone involvement Culture taken Closed loosely over drains May discharge today or tomorrow, or when OK with Dr. Evans If patient still in house on she will need a dressing change and drain removal , if she is discharged she will need She will need to be seen in my office, probably [facility], for drain removal Call me if with any questions MAGALYS HEBERT DO Jul 13, 2016 12:06
[2016-07-13] MEDS ORDERED: HYDROmorphone (DILAUDID) 2 MG/ML VIAL ONE (12:07)
[2016-07-13] MEDS ORDERED: LACTATED RINGERS 1,000 ML IV PRN (12:10)
--- NOTE | 2016-07-13 12:10 | History & Physicial (CHS) ---
HPI History of Present Illness: Ms Callejas 1 month ago was reaching into her garbage disposal when she got several pieces of metal stuck in her hand. She came to ER that day and they removed a piece of metal, cleaned wound and placed the patient on antibiotics. Patient states that since then the wound has got worse. She was seen at [facility] and placed on another round of antibiotics and then was sent to see Dr Valera in wound care. At that time Dr Valera consulted a Ortho hand surgeon and they recommended that that patient be started on IV antibiotics and likely will need surgical clean out. Patient states that the pain has been getting worse over night. The redness in her arm has improved. She is planned for the OR today for I&D. Source: patient, RN/MD Exam Limitations: no limitations Date seen by provider: Jul 13, 2016 Attending Physician Lina Evans MD [place] [facility] [place] Date of Admission Jul 12, 2016 at 12:25 Home Medications Home Medications Reviewed patient Home Medication Reconciliation Form Allergies Coded Allergies: Penicillins (Unverified Allergy, Mild, 07/02/16) dimenhydrinate (Verified Allergy, Mild, 07/17/12) morphine (Unverified Allergy, Mild, RASH, 08/29/08) prochlorperazine (Unverified Allergy, Mild, 07/23/09) oxycodone (Unverified Allergy, Unknown, 05/14/10) Uncoded Allergies: ANTI-EMETICS (Allergy, Mild, 03/26/08) ANTI-NAUSEA MEDICATIONS EXCEPT DRAMAMINE (Allergy, Mild, MAKE HER HAVE ANXIETY ATTACKS, 08/29/08) ANTIEMETICS (Allergy, Mild, 12/09/08) NAUSEA MEDS (Allergy, Mild, 12/01/08) TGB-Qjrmuv-Fhbfsi Hx Patient Social History Alcohol Use: Denies Use Recreational Drug Use: No Smoking Status: Current Everyday Smoker Type Used: Cigarettes 2nd Hand Smoke Exposure: No Recent Foreign Travel: No Contact w/other who traveled: No Recent Hopitalizations: No Recent Infectious Disease Expo: No Physical Abuse Screen: No Sexual Abuse: No Immunizations Up To Date Tetanus Booster (TDap): Less than 5yrs Date of Pneumonia Vaccine: Jul 26, 2012 Date of Influenza Vaccine: Feb 13, 2014 Family Medical History Significant Family History: No Pertinent Family Hx Family History: Diabetes mellitus 19 MOTHER Headache disorder G8 SISTER Myocardial infarction 19 MOTHER STROKE 19 MOTHER Review of Systems (CHC) Constitutional: no symptoms reportedNo chills, No fever EENTM: no symptoms reported Respiratory: no symptoms reportedNo cough, No dyspnea on exertion, No short of breath Cardiovascular: no symptoms reportedNo chest pain, No palpitations Gastrointestinal: no symptoms reportedNo abdominal pain, No nausea, No vomiting Genitourinary: no symptoms reportedNo dysuria, No frequency, No hematuria : No Musculoskeletal: joint pain (Right Wrist) joint swelling Skin: other (Wound on R wrist otherwise no complaints) Psychiatric/Neurological: No Symptoms Reported Numbness (Right hand) Weakness (Right hand) Reviewed Test Results Reviewed Test Results Lab Laboratory Tests Test 07/12/16 11:34 07/12/16 23:30 07/13/16 13:45 Range/Units Alanine Aminotransferase (ALT/SGPT) 47 0-55 U/L Albumin 3.6 3.2-4.5 G/DL Alkaline Phosphatase 162 H 40-136 U/L Anion Gap 12 5-14 MMOL/L Aspartate Amino Transf (AST/SGOT) 36 H 5-34 U/L BUN/Creatinine Ratio 14 Basophils # (Auto) 0.1 0.0-0.1 10^3/uL Basophils (%) (Auto) 1 0-10 % Blood Urea Nitrogen 12 7-18 MG/DL Calcium Level 8.9 8.5-10.1 MG/DL Carbon Dioxide Level 21 21-32 MMOL/L Chloride Level 104 98-107 MMOL/L Creatinine 0.85 0.60-1.30 MG/DL Eosinophils # (Auto) 0.5 H 0.0-0.3 10^3/uL Eosinophils (%) (Auto) 6 0-10 % Estimat Glomerular Filtration Rate > 60 Glucose Level 112 H 70-105 MG/DL Hematocrit 38 35-52 % Hemoglobin 11.5 11.5-16.0 G/DL Lymphocytes # (Auto) 2.1 1.0-4.0 X 10^3 Lymphocytes (%) (Auto) 26 12-44 % Mean Corpuscular Hemoglobin 24 L 25-34 PG Mean Corpuscular Hemoglobin Concent 30 L 32-36 G/DL Mean Corpuscular Volume 80 80-99 FL Mean Platelet Volume 10.8 H 7.4-10.4 FL Monocytes # (Auto) 0.8 0.0-1.0 X 10^3 Monocytes (%) (Auto) 9 0-12 % Neutrophils # (Auto) 4.7 1.8-7.8 X 10^3 Neutrophils (%) (Auto) 58 42-75 % Platelet Count 326 130-400 10^3/uL Potassium Level 4.1 3.6-5.0 MMOL/L Red Blood Count 4.73 4.35-5.85 10^6/uL Red Cell Distribution Width 19.2 H 10.0-14.5 % Sodium Level 137 135-145 MMOL/L Total Bilirubin 0.2 0.1-1.0 MG/DL Total Protein 7.0 6.4-8.2 G/DL White Blood Count 8.2 4.3-11.0 10^3/uL Urine Bacteria NEGATIVE /HPF Urine Bilirubin NEGATIVE NEGATIVE Urine Casts NONE /LPF Urine Clarity CLEAR Urine Color YELLOW Urine Crystals NONE /LPF Urine Culture Indicated NO Urine Glucose (UA) NEGATIVE NEGATIVE Urine Ketones NEGATIVE NEGATIVE Urine Leukocyte Esterase NEGATIVE NEGATIVE Urine Mucus NEGATIVE /LPF Urine Nitrite NEGATIVE NEGATIVE Urine Protein NEGATIVE NEGATIVE Urine RBC NONE /HPF Urine RBC (Auto) NEGATIVE NEGATIVE Urine Specific Crystal 1.015 L 1.016-1.022 Urine Squamous Epithelial Cells 0-2 /HPF Urine Urobilinogen NORMAL NORMAL MG/DL Urine WBC NONE /HPF Urine pH 6 5-9 Vancomycin Level Trough 23.2 H 10.0-20.0 UG/ML Physical Exam-([facility]) Physical Exam Vital Signs VS - Last 72 Hours, by Label 07/12/16 07/12/16 07/12/16 07/12/16 11:15 13:10 14:11 16:23 Temp 97.7 97.8 98.1 Pulse 65 70 66 Resp 18 18 18 B/P 144/69 99/64 Pulse Ox 97 97 90 O2 Delivery Room Air Room Air Room Air 07/12/16 07/12/16 07/13/16 07/13/16 19:59 21:00 00:00 04:00 Temp 97.0 95.9 97.3 Pulse 64 64 63 Resp 20 20 18 B/P 122/80 127/64 136/67 Pulse Ox 98 97 93 O2 Delivery Room Air Room Air Room Air Room Air 07/13/16 07/13/16 07/13/16 07/13/16 08:00 12:55 13:45 16:00 Temp 97.1 97.4 97.0 97.4 Pulse 70 74 69 83 Resp 18 20 20 18 B/P 143/79 126/67 119/83 128/58 Pulse Ox 96 98 96 93 O2 Delivery Room Air Nasal Cannula Room Air Nasal Cannula O2 Flow Rate 2.00 2.00 Capillary Refill : Less Than 3 Seconds General Appearance: WD/WN no apparent distress HEENT: PERRL/EOMI normal ENT inspection TMs normal pharynx normal Neck: non-tender full range of motion supple normal inspection Respiratory: chest non-tender lungs clear normal breath sounds no respiratory distress no accessory muscle use Cardiovascular: regular rate, rhythm no edema no gallop no JVD no murmur Gastrointestinal: normal bowel sounds non tender soft no organomegaly no pulsatile mass Extremities: no pedal edema no calf tenderness other (Swelling present in R wrist and hand, minimal streaking present just above wrist, no palpable LN, + purulent drainage, Pain with active and passive ROM of thumb, cap refill decreased in Right hand compared to left) Neurologic/Psychiatric: fumigator and sterilizer II-XII nml as tested alert normal mood/affect oriented x 3 Lymphatic: no adenopathy Assessment/Plan Assessment/Plan Plan 46 yo that presented to ED after being evaluated in wound care for Purulent Tenosynovitis of Right thumb Plan Tenosynovitis of R thumb - Start patient on IV antibiotics, awaiting sensitivities - Ortho consulted and will likely take patient to OR for cleanout - PO pain control FEN: NPO prior to surgery Dispo: Admit to Med/Surg Diagnosis/Problems: Clinical Quality Measures DVT/VTE Risk/Contraindication: Risk Factor Score Per Nursin RFS Level Per Nursing on Admit: 3=High Copy Copies To 1: George MOLINA HOLLY R MD Jul 13, 2016 12:10
[2016-07-13] MEDS: HYDROmorphone (DILAUDID) 2 MG/ML VIAL IV PRN ×2 (12:12→12:25)
[2016-07-13] MEDS ORDERED: ONDANSETRON 4 MG/2 ML (SDV) Z0FRAN ONE (12:20)
[2016-07-13] MEDS ORDERED: ONDANSETRON 4 MG/2 ML (SDV) Z0FRAN IV ONE (12:30)
[2016-07-13] MEDS ORDERED: APAP 300 MG/CODEINE 30 MG (TYLENOL #3) TAB PO PRN (16:00)
[2016-07-13] MEDS ORDERED: ACETAMINOPHEN 500 MG TAB (TYLENOL) PO PRN (16:15)
[2016-07-13] MEDS ORDERED: VANCOMYCIN 1500 MG/NS 500 ML IVPB IV SCH ×2 (17:00)
--- NOTE | 2016-07-13 18:57 | Discharge Instructions ---
Discharge [facility] Discharge Medications New, Converted or Re-Newed RX: Other (No new scripts) Continued Medications: Acetaminophen with Codeine (Acetaminophen-Cod #3 Tablet) 1 Each Tablet 1 TAB PO TID PRN PAIN Albuterol Sulfate (Albuterol Sulfate) 2.5 Mg/3 Ml Vial.neb 2.5 MG NEB TID PRN SHORTNESS OF BREATH EA Amlodipine Besylate (Norvasc) 5 Mg Tablet 5 MG PO HS TAB Amlodipine Besylate (Amlodipine Besylate) 5 Mg Tablet 5 MG PO DAILY Cefdinir (Cefdinir) 300 Mg Capsule 300 MG PO BID FILLED 07/07/16 #20 FOR A 10 DAY THERAPY CAP Cetirizine HCl (Cetirizine HCl) 10 Mg Tablet 10 MG PO DAILY TAB Clonazepam (Clonazepam) 0.5 Mg Tablet 0.5 MG PO BID Clonidine HCl (Clonidine HCl) 0.1 Mg Tablet 0.1 MG PO TID TAB Erythromycin Base (Erythromycin) 500 Mg Tablet 500 MG PO Q12H FILLED 07/07/16 #20 FOR A 10 DAY THERAPY TAB Gabapentin (Gabapentin) 600 Mg Tablet 600 MG PO BID Hydrochlorothiazide (Hydrochlorothiazide) 25 Mg Tablet 25 MG PO DAILY TAB Lovastatin (Lovastatin) 20 Mg Tablet 20 MG PO HS TAB Meloxicam (Meloxicam) 15 Mg Tablet 15 MG PO HS TAB Nortriptyline HCl (Nortriptyline HCl) 50 Mg Capsule 50 MG PO DAILY Omeprazole (Omeprazole) 40 Mg Capsule.dr 40 MG PO HS CAP Orphenadrine Citrate (Orphenadrine Citrate) 100 Mg Tablet.er 100 MG PO BID PRN MUSCLE SPASMS Paroxetine HCl (Paroxetine HCl) 40 Mg Tablet 40 MG PO HS TAB Quetiapine Fumarate (Quetiapine Fumarate) 300 Mg Tablet 300 MG PO HS TAB Quetiapine Fumarate (Quetiapine Fumarate) 100 Mg Tablet 100 MG PO BID PRN MOOD Patient Instructions Goal/Follow Up Appt: [facility] Marisela will call you tomorrow with your appt Patient Instructions: Please monitor the wound Do not remove drain until you are seen in the surgeons office Return to The Hospital For: Fever or chills Severe increase in pain Increase in drainage Activity & Diet Discharge Diet: Cardiac Diet Activity as Tolerated: Yes Copy Copies To 1: George MOLINA HOLLY R MD Jul 13, 2016 18:57
--- NOTE | 2016-07-13 19:10 | Discharge Summary ---
Diagnosis/Chief Complaint Date of Admission Jul 12, 2016 at 12:25 Date of Discharge 07/13/16 Admission Diagnosis Admission Diagnosis Tenosynovitis of R thumb Uncontrolled right hand pain Discharge Diagnosis See above Chief Complaint/HPI Chief Complaint/HPI Ms Callejas 1 month ago was reaching into her garbage disposal when she got several pieces of metal stuck in her hand. She came to ER that day and they removed a piece of metal, cleaned wound and placed the patient on antibiotics. Patient states that since then the wound has got worse. She was seen at [facility] and placed on another round of antibiotics and then was sent to see Dr Valera in wound care. At that time Dr Valera consulted a Ortho hand surgeon and they recommended that that patient be started on IV antibiotics and likely will need surgical clean out. Patient states that the pain has been getting worse over night. The redness in her arm has improved. She is planned for the OR today for I&D. Discharge Summary-Simple/Stand Procedures I&D by Ortho 07/13/16 Consultations Ortho Discharge Physical Examination Allergies: Coded Allergies: Penicillins (Unverified Allergy, Mild, 07/02/16) dimenhydrinate (Verified Allergy, Mild, 07/17/12) morphine (Unverified Allergy, Mild, RASH, 08/29/08) prochlorperazine (Unverified Allergy, Mild, 07/23/09) oxycodone (Unverified Allergy, Unknown, 05/14/10) Uncoded Allergies: ANTI-EMETICS (Allergy, Mild, 03/26/08) ANTI-NAUSEA MEDICATIONS EXCEPT DRAMAMINE (Allergy, Mild, MAKE HER HAVE ANXIETY ATTACKS, 08/29/08) ANTIEMETICS (Allergy, Mild, 12/09/08) NAUSEA MEDS (Allergy, Mild, 12/01/08) Vitals & I&Os Vital Sign - Last 12Hours Date Time Temp Pulse Resp B/P Pulse Ox O2 Delivery O2 Flow Rate FiO2 07/13/16 16:00 97.4 83 18 128/58 93 Nasal Cannula 2.00 Intake and Output 07/13/16 00:00 Intake Total 2460 ml Output Total 550 ml Balance 1910 ml General Appearance: Alert, Oriented X3, Cooperative, No Acute Distress HEENT: Atraumatic, PERRLA, EOMI, Mucous Memb Moist/[place] Respiratory: Clear to Auscultation, Normal Air Movement Cardiovascular: Regular Rate, Normal S1, Normal S2, No Murmurs Abdominal: Normal Bowel Sounds, Soft, No Tenderness, No Hepatosplenomegaly, No Masses Extremities: Other (Right extremity bandaged with drain in place) Neuro: Normal Gait, Normal Speech, Strength at 5/5 X4 Ext, Cranial Nerves 3-12 NL Psych/Mental Status: Mental Status NL, Mood NL Hospital Course See final discharge diagnosis. Other pending tests - Patient needs to follow up with Ortho for drain removal Discussion & Recommendations 46 yo F that was admitted for tenosynovitis of the right hand and thumb. Patient was placed on IV antibiotics while admitted. She was seen by Ortho and taken to OR for I&D with washout. Drain was placed. Patient placed on PO antibiotics after reviewing sensitivities and will need close followup with Ortho. Discharge Condition at discharge Stable Instructions to patient/family Please see electonic discharge instructions given to patient. Discharge Medications Reviewed and agree with Discharge Medication list on patient's Discharge Instruction sheet Clinical Quality Measures DVT/VTE Risk/Contraindication: Risk Factor Score Per Nursin RFS Level Per Nursing on Admit: 3=High AL JEAN BAPTISTE MD Jul 13, 2016 19:10
[2016-07-14] MEDS ORDERED: TROUGH ORDER-PHARMACY XX NR (16:00)
--- NOTE | 2016-07-15 10:13 | OPERATIVE REPORT ---
PROCEDURE PHYSICIAN: MAGALYS HEBERT DATE OF PROCEDURE: PREOPERATIVE DIAGNOSIS: Infected right hand POSTOPERATIVE DIAGNOSIS: Cellulitis right wrist. PROCEDURE: I&D right wrist TEACHING FELLOW: Anisha Worthington NP The patient suffered an injury to her right hand between the 1st and 2nd metacarpal several weeks ago, when she put her hand in the garbage disposal. She has been on antibiotics and has continued to drain. She was found to have infection and at this point she has been admitted for IV antibiotics. On the date of surgery it was debrided. There was no involvement of the extensor tendons to the thumb. There was a moderate degree of devitalized hypertrophy. Granulation tissue was debrided and cultures were taken. PROCEDURE: The patient was given general anesthetic, tourniquet inflated to 250 mmHg. INDICATIONS The open area was extended both proximally and distally. Dissection was carried down to the soft tissues. Devitalized tissue was sharply debrided. Bleeding was controlled with cautery. The extensor tendon was not involved. New cultures were taken. The area was irrigated with saline and gentamicin. The tourniquet was again deflated prior to closure, bleeding was controlled with cautery. A Rolette drain was placed and incision closed with 4-0 nylon suture. The patient was taken back to her room in stable condition. I will try to get hold of Dr. Evans. From my standpoint, she can be discharged at any time. They will need to continue antibiotics as an outpatient for at least sometime until this resolves and new cultures are returned. If she is still in the hospital, the drains can be removed in 48 hours. If she is discharged, we can do this as an outpatient at either the [facility] or the [facility]. Job ID: [id number] Dictated Date: 07/13/2016 11:55:10 [employer] Date: 07/14/2016 10:58:51 / amrik BRANTLEY
[2016-07-22] MEDS ORDERED: SULF1TAB35 PO (20:15)
== END 2016-07-13 21:38 | disposition home or self-care (01) ==
LOC: EDUNIT# 10:17 → ER 10:18 → 4TH 12:25 → UNDOADMIN 12:25 → SDC 12:25 → UNDODISIN 07-13 21:38 → SDC 07-13 21:38
PROVIDERS: ATTEND Orthopaedic Surgery
DX: M65.141 Other infective (teno)synovitis, right hand (principal); I10 Essential (primary) hypertension; L03.113 Cellulitis of right upper limb; J45.909 Unspecified asthma, uncomplicated; F17.210 Nicotine dependence, cigarettes, uncomplicated; K21.9 Gastro-esophageal reflux disease without esophagitis; F32.9 Major depressive disorder, single episode, unspecified; F41.9 Anxiety disorder, unspecified
CPT/HCPCS: 36415; 80053; 80202; 81000; 85025; 87070; 87075; 87077; 87081; 87186; 87205; 96365; 96372; 96375

== ENCOUNTER 2016-07-17 19:32 | Emergency (ER) | payer MEDICAID ==
[~2016-07-17] VITALS: Ht 167.6 cm; Wt 136.2 kg
[~2016-07-17 19:32] MED LIST changes: +ACET1TAB43 PO; +AMLO5TAB2 PO; +CLON0.5T3 PO
[2016-07-17 20:12] LABS: BASOPHILS # (AUTO) 0.1 10^3/uL (0.0-0.1); BASOPHILS % (AUTO) 1 % (0-10); EOSINOPHILS # (AUTO) 0.4 10^3/uL (0.0-0.3); EOSINOPHILS % (AUTO) 5 % (0-10); LYMPHOCYTES # (AUTO) 2.1 X 10^3 (1.0-4.0); LYMPHOCYTES % (AUTO) 23 % (12-44); MEAN CORPUSCULAR HEMOGLOBIN 24 PG (25-34); MEAN CORPUSCULAR HGB CONC 30 G/DL (32-36); MEAN CORPUSCULAR VOLUME 80 FL (80-99); MEAN PLATELET VOLUME 9.8 FL (7.4-10.4); MONOCYTES # (AUTO) 0.9 X 10^3 (0.0-1.0); MONOCYTES % (AUTO) 10 % (0-12); NEUTROPHILS # (AUTO) 5.8 X 10^3 (1.8-7.8); NEUTROPHILS % (AUTO) 62 % (42-75); PLATELET COUNT 315 10^3/uL (130-400); RED BLOOD COUNT 4.73 10^6/uL (4.35-5.85); RED CELL DISTRIBUTION WIDTH 19.1 % (10.0-14.5); WHITE BLOOD COUNT 9.4 10^3/uL (4.3-11.0)
[2016-07-17 20:34] LABS: ALANINE AMINOTRANSFERASE 25 U/L (0-55); ALBUMIN 3.9 G/DL (3.2-4.5); ANION GAP 12 MMOL/L (5-14); ASPARTATE AMINO TRANSFERASE 22 U/L (5-34); BILIRUBIN,TOTAL 0.3 MG/DL (0.1-1.0); BLOOD UREA NITROGEN 10 MG/DL (7-18); BUN/CREATININE RATIO 11; CALCIUM 9.6 MG/DL (8.5-10.1); CARBON DIOXIDE 21 MMOL/L (21-32); CHLORIDE 110 MMOL/L (98-107); GFR ESTIMATED > 60; GLUCOSE 119 MG/DL (70-105); POTASSIUM 3.9 MMOL/L (3.6-5.0); SALICYLATE < 5.0 MG/DL (5.0-20.0); SODIUM 143 MMOL/L (135-145); TOTAL PROTEIN 7.3 G/DL (6.4-8.2)
[2016-07-17] MEDS ORDERED: IBUPROFEN 800 MG (MOTRIN) TAB PO STA (20:34)
[2016-07-17 20:37] LABS: ACETAMINOPHEN < 10 UG/ML (10-30); ALCOHOL < 10 MG/DL (<10)
[2016-07-17] MEDS ORDERED: LIDOCAINE JELLY 2% (XYLOCAINE) 5 ML TUBE TOP ONE (22:15)
[2016-07-17 22:31] LABS: INR 1.1 (0.8-1.4); PROTHROMBIN TIME PATIENT 13.5 SEC (12.2-14.7)
--- NOTE | 2016-07-17 22:33 | Diagnostic Imaging Report ---
EXAM: Chest pa/lat (2 view). INDICATION: Weakness. Chronic wheezing. Multiple falls. COMPARISON: Chest radiograph from 06/21/2016. FINDINGS: Normal heart size and pulmonary vascularity. Bronchial wall thickening. No focal pulmonary opacity, pleural effusion or pneumothorax. Mild degenerative changes in the thoracic spine. IMPRESSION: Bronchial wall thickening consistent with small airway inflammation. Remainder negative. Dictated by: Dictated on workstation # [id number]
--- NOTE | 2016-07-17 22:49 | ED General ---
General Chief Complaint: Neurological Problems Stated Complaint: OD Nursing Triage Note: Pt to ED via [facility]. Pt reporting she feels as if her lower extremities are weaker than normal and she states she has had several falls recently. Pt also reports feeling as if her "whole body is twitching". Pt reports her daughter initially called EMS because she was concerned that the pt took too much hydrocodone. Pt reports taking #2 7.5mg hydrocodone at noon today. Source of Information: Patient, EMS Exam Limitations: Other (see HPI) History of Present Illness Initial Comments 46-year-old female patient presents to the emergency department with complaints of muscle twitching and drowsiness today. Initially patient's daughter had reported to EMS that the patient possibly overdosed. Patient is alert and oriented at the time of exam and states she did not overdose. Reports taking 2 hydrocodone as prescribed by her physician earlier this evening. Patient had surgery on the right hand by Dr. Hebert on 07/12/16 for abscess and cellulitis. Patient reports feeling lightheaded at times. Denies vertigo, chest pain, shortness of air, seizure, vomiting, abdominal pain. Denies slurred speech, blurry vision, one-sided facial weakness, or one sided limb weakness. Patient reports overall feeling tired. Does c/o cough and congestion. This encounter is patient's second encounter in the emergency department at [facility] since May 24, 2016. Patient has had 106 encounters at [facility] since 04/08/2006 for a multitude of complaints. Timing/Duration: 2-3 Days, Constant Modifying Factors: worse with Other (denies modifying factors) Allergies and Home Medications Allergies Coded Allergies: Penicillins (Unverified Allergy, Mild, 07/02/16) dimenhydrinate (Verified Allergy, Mild, 07/17/12) morphine (Unverified Allergy, Mild, RASH, 08/29/08) prochlorperazine (Unverified Allergy, Mild, 07/23/09) oxycodone (Unverified Allergy, Unknown, 05/14/10) Uncoded Allergies: ANTI-EMETICS (Allergy, Mild, 03/26/08) ANTI-NAUSEA MEDICATIONS EXCEPT DRAMAMINE (Allergy, Mild, MAKE HER HAVE ANXIETY ATTACKS, 08/29/08) ANTIEMETICS (Allergy, Mild, 12/09/08) NAUSEA MEDS (Allergy, Mild, 12/01/08) Home Medications Albuterol Sulfate 6.7 Gm Hfa.aer.ad, 2 PUFF INH Q4H PRN for SHORTNESS OF BREATH, (Reported) Amlodipine Besylate 5 Mg Tablet, 5 MG PO DAILY, (Reported) Baclofen 20 Mg Tablet, 20 MG PO BID, (Reported) Cetirizine HCl 10 Mg Tablet, 10 MG PO DAILY PRN for ALLERGIES, (Reported) Clonazepam 0.5 Mg Tablet, 0.5 MG PO BID PRN for ANXIETY, (Reported) Clonidine HCl 0.1 Mg Tablet, 0.1 MG PO TID, (Reported) Hydrochlorothiazide 25 Mg Tablet, 25 MG PO DAILY PRN for SWELLING, (Reported) Hydrocodone/Acetaminophen 1 Each Tablet, 1 TAB PO TID PRN for PAIN, (Reported) Levofloxacin 750 Mg Tablet, 750 MG PO DAILY, #14 Prescribed by: SHAHNAZ ARAIZA on 07/26/16 1149 Lovastatin 20 Mg Tablet, 20 MG PO DAILY, (Reported) Meloxicam 15 Mg Tablet, 15 MG PO DAILY, (Reported) Metronidazole 500 Mg Tablet, 500 MG PO Q8H, #42 Ref 0 Prescribed by: SHAHNAZ ARAIZA on 07/26/16 1149 Omeprazole 40 Mg Capsule.dr, 40 MG PO DAILY PRN for HEARTBURN, (Reported) Paroxetine HCl 40 Mg Tablet, 40 MG PO HS, (Reported) Constitutional: No chills, No diaphoresis, dizziness, No fever, malaise, weakness EENTM: no symptoms reported Respiratory: cough, No dyspnea on exertion, No hemoptysis, No orthopnea, phlegm , No short of breath, No stridor, No wheezing Cardiovascular: No chest pain, No palpitations, No syncope Gastrointestinal: no symptoms reported Genitourinary: no symptoms reported Musculoskeletal: see HPI, joint pain (right hand at surgical site), muscle twitching Skin: other (right hand surgical site improving erythema) Psychiatric/Neurological: See HPI, Denies Headache, Denies Numbness, Denies Paresthesia, Denies Seizure, Denies Weakness (denies one-sided weakness) All Other Systems Reviewed Negative Unless Noted: Yes (Negative excepted noted.) Past Yhojolr-Mdyryu-Tapzyj Hx Patient Social History Type Used: Cigarettes 2nd Hand Smoke Exposure: No Recent Hopitalizations: No Immunizations Up To Date Tetanus Booster (TDap): Less than 5yrs Date of Pneumonia Vaccine: Jul 26, 2012 Date of Influenza Vaccine: Feb 13, 2014 Seasonal Allergies Seasonal Allergies: No Surgeries HX Surgeries: Yes (LUNG SURGERY FOR EMPYEMA, LEFT OVARIAN CYST REMOVAL; HYST/ BSO) Surgeries: Appendectomy, Section, Hysterectomy, Oophorectomy, Tonsillectomy Respiratory Hx Respiratory Disorders: Yes (EMPYEMA--S/P LUNG SURGERY FOR REMOVAL) Respiratory Disorders: Asthma Cardiovascular Hx Cardiac Disorders: Yes Cardiac Disorders: Hypertension Neurological Hx Neurological Disorders: No Reproductive System Hx Reproductive Disorders: Yes (MULTIPLE OVARIAN CYSTS. 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 Genitourinary Hx Genitourinary Disorders: No Gastrointestinal Hx Gastrointestinal Disorders: Yes Gastrointestinal Disorders: Gastroesophageal Reflux, Irritable Bowel Musculoskeletal Hx Musculoskeletal Disorders: Yes Musculoskeletal Disorders: Degenerate Disk Disease, Chronic Back Pain Endocrine Hx Endocrine Disorders: Yes (MORBID OBESTIY) HEENT HX ENT Disorders: Yes (WEARS GLASSES) Hearing Impairment: Denies Cancer Hx Cancer: No Psychosocial Hx Psychiatric Problems: Yes Behavioral Health Disorders: Sleep Difficulties, Anxiety, Depression Integumentary HX Skin/Integumentary Disorder: Yes (ABSCESSES, MULTIPLE WOUND INFECTIONS, STAPH) Blood Transfusions Hx Blood Disorders: No Reviewed Nursing Assessment Reviewed/Agree w Nursing PMH: Yes Family Medical History Significant Family History: No Pertinent Family Hx Family Medial History: Diabetes mellitus 19 MOTHER Headache disorder G8 SISTER Myocardial infarction 19 MOTHER STROKE 19 MOTHER Physical Exam Vital Signs Capillary Refill : General Appearance: No Apparent Distress, WD/WN Eyes: Bilateral Eye EOMI, Bilateral Eye Normal Inspection, Bilateral Eye PERRL HEENT: PERRL/EOMI, TMs Normal, Normal ENT Inspection, Pharynx Normal Neck: Full Range of Motion, Normal Inspection, Non Tender, Supple Respiratory: Lungs Clear, Normal Breath Sounds, No Respiratory Distress Cardiovascular: Regular Rate, Rhythm, No Murmur, Normal Peripheral Pulses Gastrointestinal: Non Tender, Soft, No Distended Back: Normal Inspection Extremity: Normal Capillary Refill, No Calf Tenderness, No Pedal Edema, Other ( right hand shows improved erythema and swelling. No active drainage noted. Soft tissue tenderness noted surrounding the right hand surgical site.) Neurologic/Psychiatric: Alert, Oriented x3, No Motor/Sensory Deficits, Normal Mood/Affect, armature tester II-XII Norm as Tested, Other (evidence of pronator drift. Negative Romberg. Normal finger to nose. Patient is able to move about the bed without difficulty. Noted to be on her phone multiple times throughout the exam. (Staff reports patient is very groggy when the car in the room with the patient, however patient is noted to be completely alert and oriented when this examiner is in the room).) Skin: Normal Color, Warm/Dry Laceration Repair : Suture Size: 4-0 Progress/Results/Core Measures Results/Orders Lab Results Micro Results My Orders Medications Given in ED ECG Initial ECG Impression Date: Jul 17, 2016 Initial ECG Impression Time: 19:39 Initial ECG Rate: 94 Initial ECG Rhythm: Normal Sinus Initial ECG Intervals: Normal Initial ECG Impression: Normal Initial ECG Comparisson: Unchanged Comment NSR. no STEMI or arrhythmia. ECG reviewed with Dr. Ng. Diagnostic Imaging Diagonstic Imaging: Xray Plain Films/CT/US/NM/MRI: chest Comments FINDINGS: Normal heart size and pulmonary vascularity. Bronchial wall thickening. No focal pulmonary opacity, pleural effusion or pneumothorax. Mild degenerative changes in the thoracic spine. IMPRESSION: Bronchial wall thickening consistent with small airway inflammation. Remainder negative. Dictated by: Dictated on workstation # [id number] Reviewed: Reviewed by Me (radiology report reviewed by me. ) Departure Communication Progress Notes Patient seen and evaluated. Patient throughout the visit and was noted to complain of bruising of the arms and legs, requests lidocaine for her right hand wound, and to complain of multiple areas of joint pain. Patient request Ronnie wrap to be applied to the joints. Ronnie wrap applied to the right hand, bilateral elbows, and bilateral knees at the request of patient. Patient is very manipulative. Patient also noted to have shut the monitor off which resulted in loss of all vital signs taken throughout the visit. Patient has been alert and oriented throughout the entire exam. All laboratory and diagnostic findings were discussed with the patient. Proceed with discharge to home. Patient case discussed with Dr. Poe, he agrees with the plan of care. Impression Impression: Primary Impression: Acute viral bronchitis Additional Impressions: Postoperative state Adverse drug effect Disposition: 01 HOME, SELF-CARE Condition: Improved Departure-Patient Inst. Decision time for Depature: 23:12 Referrals: [facility] (PCP/Family) Primary Care Physician MAGALYS HEBERT DO Patient Instructions: Viral Upper Respiratory Infection, Adult (DC) Add. Discharge Instructions: All discharge instructions reviewed with patient and/or family. Voiced understanding. Medications as instructed. Continue usual home medications. Use inhalers as instructed by your family practitioner. Ibuprofen [id number] as directed for pain. Continue pain medications as prescribed by your physician. Follow-up with Dr. Hebert as an outpatient as previously scheduled. Follow-up with [facility] for recheck this week as previously scheduled. Make sure to discuss medications that may be causing the muscle twitching and being off balance (ex: Gabapentin, Seroquel, clonazepam, nortriptyline, Norflex). Return to the emergency department for fever, erythema of the wound, increased drainage, shortness of air, chest pain, vomiting, decreased urination, changes in behavior, headache, changes in vision, slurred speech, or any other concerns. SOMMER DU Jul 17, 2016 22:49
[2016-07-17] MEDS ORDERED: PRD20T PO (23:12)
[2016-07-17 23:18] LABS: BILIRUBIN,URINE NEGATIVE (NEGATIVE); KETONES,URINE NEGATIVE (NEGATIVE); LEUKOCYTE ESTERASE ,URINE 2+ (NEGATIVE); NITRITE,URINE NEGATIVE (NEGATIVE); PH,URINE 8 (5-9); PROTEIN,URINE 1+ (NEGATIVE); UROBILINOGEN,URINE NORMAL (NORMAL)
[2016-07-17 23:26] LABS: SQUAMOUS EPITHELIAL CELL,UR 25-50 /HPF
[2016-07-17 23:44] VITALS: BP 160/94
[2016-07-22] MEDS ORDERED: SULF1TAB35 PO (20:15)
== END 2016-07-17 23:44 | disposition home or self-care (01) ==
LOC: ER 19:32 → EDUNIT# 19:32 → ER 23:44
DX: R40.0 Somnolence (principal); T40.2X5A Adverse effect of other opioids, 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; J20.8 Acute bronchitis due to other specified organisms; E66.01 Morbid (severe) obesity due to excess calories; Z98.890 Other specified postprocedural states; Z79.899 Other long term (current) drug therapy
CPT/HCPCS: 36415; 71020; 80053; 80306; 80320; 80329; 81000; 84443; 85025; 85610; 85730; 87804; 93005; 93041

== ENCOUNTER 2016-07-23 14:11 | Outpatient (RCR) | payer MEDICAID ==
[2016-07-23] MEDS ORDERED: BACL20TA PO (20:15)
[2016-07-23] MEDS ORDERED: CLON0.5T PO (20:15)
[2016-07-23] MEDS ORDERED: NAPR500T3 PO (20:15)
[2016-07-23] MEDS ORDERED: CETI10CA PO (20:15)
[2016-07-24] MEDS ORDERED: CLON0.1T14 PO (12:35)
[2016-07-26] MEDS ORDERED: MELO15TA39 PO (09:08)
[2016-07-26] MEDS ORDERED: CLON0.5T3 PO (09:08)
[2016-07-26] MEDS ORDERED: OMEP40CA36 PO (09:08)
[2016-07-26] MEDS ORDERED: CETI10TA17 PO (09:08)
[2016-07-26] MEDS ORDERED: HYDR25TA4 PO (09:08)
[2016-07-26] MEDS ORDERED: LOVA20TA2 PO (09:08)
[2016-07-26] MEDS ORDERED: FLUC150T2 PO (09:08)
[2016-07-26] MEDS ORDERED: RT-ALBUINH INH (09:08)
[2016-07-26] MEDS ORDERED: HYDR-3816 PO (09:08)
[2016-07-26] MEDS ORDERED: LEVO750T39 PO (11:49)
[2016-07-26] MEDS ORDERED: METR500T PO (11:49)
== END 2016-07-30 16:00 | disposition home or self-care (01) ==
LOC: WOUNDCARE 14:11
PROVIDERS: ATTEND Surgery
DX: L03.113 Cellulitis of right upper limb (principal); L02.511 Cutaneous abscess of right hand
CPT/HCPCS: 99212; 99213

== ENCOUNTER 2016-07-23 14:51 | Inpatient (IN) | payer MEDICAID ==
[~2016-07-23] VITALS: Ht 167.6 cm; Wt 134.3 kg
[2016-07-23] MEDS ORDERED: NS IV 1000 ML 1,000 ML IV ONE (15:00)
--- NOTE | 2016-07-23 15:58 | ED Integumentary General ---
General Chief Complaint: Skin/Wound Problems Stated Complaint: INFECTION RIGHT HAND Source: patient Exam Limitations: no limitations History of Present Illness Time seen by provider: 15:35 Initial Comments Here with increasing redness, swelling and pain to the right hand where she has a surgical wound after debridement on 07/13/16. She had a drain placed at that time and reports that it was taken out a couple days later. She states that she is not on antibiotics and has not been on antibiotics since leaving the hospital. She states that there was no prescriptions. She states that the doctors never told her that she needed to be on antibiotics. She did not complete the antibiotics that were prescribed on 07/07/16. She also was seen in clinic at [facility] 2 days ago and restarted on Bactrim. Wound is worsened. She saw Dr. Valera at wound care today who recommended further evaluation to the ER. He did call and expressed concerns related to the wound. Patient reports that the wound is weeping purulent drainage. Denies fevers currently. Does report red streaks up the arm to the area of the elbow Timing/Duration: getting worse, other (2 days ago) Severity: moderate Location: hands, extremities Associated Symptoms: edemaNo rash Allergies and Home Medications Allergies Coded Allergies: Penicillins (Unverified Allergy, Mild, 07/02/16) dimenhydrinate (Verified Allergy, Mild, 07/17/12) morphine (Unverified Allergy, Mild, RASH, 08/29/08) prochlorperazine (Unverified Allergy, Mild, 07/23/09) oxycodone (Unverified Allergy, Unknown, 05/14/10) Uncoded Allergies: ANTI-EMETICS (Allergy, Mild, 03/26/08) ANTI-NAUSEA MEDICATIONS EXCEPT DRAMAMINE (Allergy, Mild, MAKE HER HAVE ANXIETY ATTACKS, 08/29/08) ANTIEMETICS (Allergy, Mild, 12/09/08) NAUSEA MEDS (Allergy, Mild, 12/01/08) Home Medications Acetaminophen with Codeine 1 Each Tablet 1 TAB PO TID PRN PRN PAIN (Reported) Albuterol Sulfate 2.5 Mg/3 Ml Vial.neb 2.5 MG NEB TID PRN PRN SHORTNESS OF BREATH (Reported) Amlodipine Besylate 5 Mg Tablet 5 MG PO HS (Reported) Amlodipine Besylate 5 Mg Tablet 5 MG PO DAILY (Reported) Cefdinir 300 Mg Capsule 300 MG PO BID (Reported) FILLED 07/07/16 #20 FOR A 10 DAY THERAPY Cetirizine HCl 10 Mg Tablet 10 MG PO DAILY (Reported) Clonazepam 0.5 Mg Tablet 0.5 MG PO BID (Reported) Clonidine HCl 0.1 Mg Tablet 0.1 MG PO TID (Reported) Erythromycin Base 500 Mg Tablet 500 MG PO Q12H (Reported) FILLED 07/07/16 #20 FOR A 10 DAY THERAPY Gabapentin 600 Mg Tablet 600 MG PO BID (Reported) Hydrochlorothiazide 25 Mg Tablet 25 MG PO DAILY (Reported) Lovastatin 20 Mg Tablet 20 MG PO HS (Reported) Meloxicam 15 Mg Tablet 15 MG PO HS (Reported) Nortriptyline HCl 50 Mg Capsule 50 MG PO DAILY (Reported) Omeprazole 40 Mg Capsule.dr 40 MG PO HS (Reported) Orphenadrine Citrate 100 Mg Tablet.er 100 MG PO BID PRN PRN MUSCLE SPASMS ( Reported) Paroxetine HCl 40 Mg Tablet 40 MG PO HS (Reported) Prednisone 20 Mg Tab #4 40 MG PO DAILY Prescribed by: SOMMER DU on 07/17/162 Quetiapine Fumarate 300 Mg Tablet 300 MG PO HS (Reported) Quetiapine Fumarate 100 Mg Tablet 100 MG PO BID PRN PRN MOOD (Reported) Constitutional: see HPINo fever EENTM: no symptoms reported Respiratory: see HPI cough (mild nonproductive) Cardiovascular: no symptoms reported Gastrointestinal: no symptoms reported Genitourinary: no symptoms reported Musculoskeletal: see HPI Skin: see HPI change in color lesions All Other Systems Reviewed Negative Unless Noted: Yes Past Ewrrwad-Ofnelz-Eocqoz Hx Patient Social History Alcohol Use: Denies Use Recreational Drug Use: No Smoking Status: Current Everyday Smoker Type Used: Cigarettes 2nd Hand Smoke Exposure: No Recent Foreign Travel: No Contact w/Someone Who Travel: No Recent Hopitalizations: No Immunizations Up To Date Tetanus Booster (TDap): Less than 5yrs Date of Pneumonia Vaccine: Jul 26, 2012 Date of Influenza Vaccine: Feb 13, 2014 Seasonal Allergies Seasonal Allergies: No Surgeries HX Surgeries: Yes (LUNG SURGERY FOR EMPYEMA, LEFT OVARIAN CYST REMOVAL; HYST/ BSO) Surgeries: Appendectomy, Section, Hysterectomy, Oophorectomy, Tonsillectomy Respiratory Hx Respiratory Disorders: Yes (EMPYEMA--S/P LUNG SURGERY FOR REMOVAL) Respiratory Disorders: Asthma Cardiovascular Hx Cardiac Disorders: Yes Cardiac Disorders: Hypertension Neurological Hx Neurological Disorders: No Reproductive System Hx Reproductive Disorders: Yes (MULTIPLE OVARIAN CYSTS. 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 Genitourinary Hx Genitourinary Disorders: No Gastrointestinal Hx Gastrointestinal Disorders: Yes Gastrointestinal Disorders: Gastroesophageal Reflux, Irritable Bowel Musculoskeletal Hx Musculoskeletal Disorders: Yes Musculoskeletal Disorders: Degenerate Disk Disease, Chronic Back Pain Endocrine Hx Endocrine Disorders: Yes (MORBID OBESTIY) HEENT HX ENT Disorders: Yes (WEARS GLASSES) Hearing Impairment: Denies Cancer Hx Cancer: No Psychosocial Hx Psychiatric Problems: Yes Behavioral Health Disorders: Sleep Difficulties, Anxiety, Depression Integumentary HX Skin/Integumentary Disorder: Yes (ABSCESSES, MULTIPLE WOUND INFECTIONS, STAPH) Blood Transfusions Hx Blood Disorders: No Reviewed Nursing Assessment Reviewed/Agree w Nursing PMH: Yes Family Medical History Family Medial History: Diabetes mellitus 19 MOTHER Headache disorder G8 SISTER Myocardial infarction 19 MOTHER STROKE 19 MOTHER Physical Exam Vital Signs Vital Sign - Last 12Hours 07/23/16 15:46 Temp 98.6 Pulse 84 Resp 16 B/P 164/86 Pulse Ox 98 Capillary Refill : General Appearance: WD/WN no apparent distress HEENT: PERRL/EOMI pharynx normal Neck: full range of motion supple Cardiovascular: regular rate, rhythm no murmur Respiratory: lungs clear normal breath sounds Gastrointestinal: non tender soft Back: normal inspection no CVA tenderness no vertebral tenderness Extremities: non-tender normal inspection Neurologic/Psychiatric: alert oriented x 3 Skin: normal color warm/dry Laceration Repair : Suture Size: 4-0 Progress/Results/Core Measures Results/Orders Lab Results Laboratory Tests Test 07/23/16 16:35 07/23/16 16:50 Range/Units Alanine Aminotransferase (ALT/SGPT) 19 0-55 U/L Albumin 3.7 3.2-4.5 G/DL Alkaline Phosphatase 116 40-136 U/L Anion Gap 9 5-14 MMOL/L Aspartate Amino Transf (AST/SGOT) 20 5-34 U/L BUN/Creatinine Ratio 16 Basophils # (Auto) 0.1 0.0-0.1 10^3/uL Basophils (%) (Auto) 2 0-10 % Blood Urea Nitrogen 12 7-18 MG/DL C-Reactive Protein High Sensitivity 2.50 H 0.00-0.50 MG/DL Calcium Level 9.4 8.5-10.1 MG/DL Carbon Dioxide Level 23 21-32 MMOL/L Chloride Level 110 H 98-107 MMOL/L Creatinine 0.74 0.60-1.30 MG/DL Eosinophils # (Auto) 0.4 H 0.0-0.3 10^3/uL Eosinophils (%) (Auto) 5 0-10 % Estimat Glomerular Filtration Rate > 60 Glucose Level 122 H 70-105 MG/DL Hematocrit 38 35-52 % Hemoglobin 11.3 L 11.5-16.0 G/DL Lymphocytes # (Auto) 1.7 1.0-4.0 X 10^3 Lymphocytes (%) (Auto) 21 12-44 % Mean Corpuscular Hemoglobin 24 L 25-34 PG Mean Corpuscular Hemoglobin Concent 30 L 32-36 G/DL Mean Corpuscular Volume 80 80-99 FL Mean Platelet Volume 10.2 7.4-10.4 FL Monocytes # (Auto) 0.9 0.0-1.0 X 10^3 Monocytes (%) (Auto) 11 0-12 % Neutrophils # (Auto) 4.8 1.8-7.8 X 10^3 Neutrophils (%) (Auto) 61 42-75 % Platelet Count 317 130-400 10^3/uL Potassium Level 3.6 3.6-5.0 MMOL/L Red Blood Count 4.69 4.35-5.85 10^6/uL Red Cell Distribution Width 19.1 H 10.0-14.5 % Smear Scan YES Sodium Level 142 135-145 MMOL/L Total Bilirubin 0.3 0.1-1.0 MG/DL Total Protein 7.3 6.4-8.2 G/DL White Blood Count 7.9 4.3-11.0 10^3/uL Lactic Acid Level 0.59 0.50-2.00 MMOL/L My Orders Orders-ARLENE MCDONALD MD Cbc With Automated Diff (07/23/16 15:00) Comprehensive Metabolic Panel (07/23/16 15:00) Hs C Reactive Protein (07/23/16 15:00) Blood Culture (07/23/16 15:00) Saline Lock/Iv-Start (07/23/16 15:00) Ns Iv 1000 Ml (Sodium Chloride 0.9%) (07/23/16 15:00) Lactic Acid Analyzer (07/23/16 15:00) Fentanyl Injection (Sublimaze Injection (07/23/16 17:34) Levofloxacin 750 Mg/150 Ml Iv (Levaquin (07/23/16 17:34) Medications Given in ED Current Medications Medications Dose Ordered Sig/Jesus Route Start Time Stop Time Status Last Admin Dose Admin Sodium Chloride 1,000 ml @ 0 mls/hr Q0M ONCE IV 07/23/16 15:00 07/23/16 15:04 DC 07/23/16 16:39 1,000 MLS/HR Vital Signs/I&O Vital Sign - Last 12Hours 07/23/16 15:46 Temp 98.6 Pulse 84 Resp 16 B/P 164/86 Pulse Ox 98 Progress Note : Progress Note Seen and evaluated. IV, labs and normal saline 1 L bolus. Blood cultures and lactic acid ordered. Monitor patient. I did discuss the case with Dr. Estes. She did review the clinic history. Patient has had a variety called to the clinic as well as of visit. She does see that there was a prescription for Bactrim. Patient had no other contact related to wound except for when patient reports that the wound opened and sutures ripped open after she fell out of bed. We will evaluate for severe infection. Monitor patient. 1726: I did discuss the case with Dr. Miles, on-call for [facility]. Patient's labs reviewed. She does have the red streaks up the arm and the wound that is draining purulent material. There is definitely concerns that she is untreated and this is worsening. Due to patient's history of cultures and known pathogens with resistance, we will place patient on IV Levaquin and Flagyl to cover known pathogens. Consult Dr. Carlton for wound care management. Fentanyl 50 g IV given. Wet-to-dry dressing placed after wound flushed. Admit inpatient status. Departure Communication Time/Spoke to Admitting Phy: 17:26 Impression Impression: Primary Impression: Cellulitis of right hand Disposition: ADMITTED INPATIENT Condition: Stable Decision to Admit Reason: Admit from ER (General) Decision to Admit/Date: Jul 23, 2016 Time/Decision to Admit Time: 17:26 Departure-Patient Inst. Referrals: [facility] (PCP/Family) Primary Care Physician ARLENE MCDONALD MD Jul 23, 2016 15:58
[2016-07-23 16:53] LABS: BASOPHILS # (AUTO) 0.1 10^3/uL (0.0-0.1); BASOPHILS % (AUTO) 2 % (0-10); EOSINOPHILS # (AUTO) 0.4 10^3/uL (0.0-0.3); EOSINOPHILS % (AUTO) 5 % (0-10); LYMPHOCYTES # (AUTO) 1.7 X 10^3 (1.0-4.0); LYMPHOCYTES % (AUTO) 21 % (12-44); MEAN CORPUSCULAR HEMOGLOBIN 24 PG (25-34); MEAN CORPUSCULAR HGB CONC 30 G/DL (32-36); MEAN CORPUSCULAR VOLUME 80 FL (80-99); MEAN PLATELET VOLUME 10.2 FL (7.4-10.4); MONOCYTES # (AUTO) 0.9 X 10^3 (0.0-1.0); MONOCYTES % (AUTO) 11 % (0-12); NEUTROPHILS # (AUTO) 4.8 X 10^3 (1.8-7.8); NEUTROPHILS % (AUTO) 61 % (42-75); PLATELET COUNT 317 10^3/uL (130-400); RED BLOOD COUNT 4.69 10^6/uL (4.35-5.85); RED CELL DISTRIBUTION WIDTH 19.1 % (10.0-14.5); WHITE BLOOD COUNT 7.9 10^3/uL (4.3-11.0)
[2016-07-23 17:08] LABS: ALANINE AMINOTRANSFERASE 19 U/L (0-55); ALBUMIN 3.7 G/DL (3.2-4.5); ANION GAP 9 MMOL/L (5-14); ASPARTATE AMINO TRANSFERASE 20 U/L (5-34); BILIRUBIN,TOTAL 0.3 MG/DL (0.1-1.0); BLOOD UREA NITROGEN 12 MG/DL (7-18); BUN/CREATININE RATIO 16; CALCIUM 9.4 MG/DL (8.5-10.1); CARBON DIOXIDE 23 MMOL/L (21-32); CHLORIDE 110 MMOL/L (98-107); CREATININE SERUM 0.74 MG/DL (0.60-1.30); GFR ESTIMATED > 60; GLUCOSE 122 MG/DL (70-105); POTASSIUM 3.6 MMOL/L (3.6-5.0); SODIUM 142 MMOL/L (135-145); TOTAL PROTEIN 7.3 G/DL (6.4-8.2)
[2016-07-23] MEDS ORDERED: fentaNYL INJECTION 100 MCG/2 ML AMP IVP STA (17:34)
[2016-07-23] MEDS ORDERED: LEVOFLOXACIN 750 MG/150 ML IV 150 ML IV STA (17:34)
[2016-07-23 19:15] VITALS: BP 148/97
[2016-07-23] MEDS ORDERED: CATHETER FLUSH 10 ML SYR IV PRN ×2 (20:00)
[2016-07-23] MEDS ORDERED: CLON0.5T PO (20:15)
[2016-07-23] MEDS ORDERED: NAPR500T3 PO (20:15)
[2016-07-23] MEDS ORDERED: BACL20TA PO (20:15)
[2016-07-23] MEDS ORDERED: CETI10CA PO (20:15)
[2016-07-23] MEDS ORDERED: NON-FORMULARY MEDICATION 1 EA EA (Baclofen 20 MG) PO SCH (21:00)
[2016-07-23] MEDS ORDERED: NON-FORMULARY MEDICATION 1 EA EA (Paroxetine HCl 40 MG) PO SCH (21:00)
[2016-07-23] MEDS: BACLOFEN 10 MG (LIORESAL) TAB PO SCH (21:05)
[2016-07-23] MEDS: HYDROcodone/APAP 5 MG/325 MG (LORTAB) TAB PO PRN (21:05)
[2016-07-23] MEDS: clonazePAM 0.5 MG (KlonoPIN) TAB PO SCH (21:05)
[2016-07-23] MEDS: PARoxetine 20 MG (PAXIL) TAB PO SCH (21:05)
[2016-07-23] MEDS ORDERED: CATHETER FLUSH 10 ML SYR IV SCH (22:00)
[2016-07-23] MEDS: CATHETER FLUSH 10 ML SYR IV SCH (22:39)
[2016-07-23] MEDS: metroNIDAZOLE 500MG/100ML IVPB 100 ML IV SCH (22:40)
[2016-07-23] MEDS ORDERED: RT-ALBUTEROL SULF 2.5 MG/3 ML PRE-MIX VIAL INH PRN (23:00)
[2016-07-24] VITALS (7 sets, daily range): BP systolic 139–180; BP diastolic 76–96
[2016-07-24] MEDS: metroNIDAZOLE 500MG/100ML IVPB 100 ML IV SCH ×3 (05:10→20:42)
[2016-07-24] MEDS: CATHETER FLUSH 10 ML SYR IV SCH ×3 (05:11→20:42)
[2016-07-24] MEDS: HYDROcodone/APAP 5 MG/325 MG (LORTAB) TAB PO PRN ×3 (05:11→18:55)
[2016-07-24 05:23] LABS: BASOPHILS # (AUTO) 0.1 10^3/uL (0.0-0.1); BASOPHILS % (AUTO) 2 % (0-10); EOSINOPHILS # (AUTO) 0.4 10^3/uL (0.0-0.3); EOSINOPHILS % (AUTO) 7 % (0-10); LYMPHOCYTES # (AUTO) 2.4 X 10^3 (1.0-4.0); LYMPHOCYTES % (AUTO) 38 % (12-44); MEAN CORPUSCULAR HEMOGLOBIN 24 PG (25-34); MEAN CORPUSCULAR HGB CONC 30 G/DL (32-36); MEAN CORPUSCULAR VOLUME 81 FL (80-99); MEAN PLATELET VOLUME 10.2 FL (7.4-10.4); MONOCYTES # (AUTO) 0.9 X 10^3 (0.0-1.0); MONOCYTES % (AUTO) 15 % (0-12); NEUTROPHILS # (AUTO) 2.5 X 10^3 (1.8-7.8); NEUTROPHILS % (AUTO) 39 % (42-75); PLATELET COUNT 273 10^3/uL (130-400); RED CELL DISTRIBUTION WIDTH 18.8 % (10.0-14.5); WHITE BLOOD COUNT 6.3 10^3/uL (4.3-11.0)
[2016-07-24 05:42] LABS: ANION GAP 12 MMOL/L (5-14); BLOOD UREA NITROGEN 10 MG/DL (7-18); BUN/CREATININE RATIO 15; CARBON DIOXIDE 20 MMOL/L (21-32); CHLORIDE 108 MMOL/L (98-107); CREATININE SERUM 0.67 MG/DL (0.60-1.30); GFR ESTIMATED > 60; GLUCOSE 89 MG/DL (70-105); POTASSIUM 3.5 MMOL/L (3.6-5.0); SODIUM 140 MMOL/L (135-145)
--- NOTE | 2016-07-24 06:23 | History & Physicial (CHS) ---
HPI History of Present Illness: 46-year-old female presents to the emergency department with increasing redness and swelling to the right hand. Patient had undergone surgical wound debridement July 13, 2016 and apparently had a drain placed at that time. She apparently has not been on antibiotics since leaving the hospital. On further history she did not complete antibiotics that were given to her the week prior to her surgical debridement. She was started on Bactrim July 21, 2016 through [facility]. Apparently the wound has been draining and she has noted red streaks up the arm around the elbow. Source: patient Exam Limitations: clinical condition Date seen by provider: Jul 24, 2016 Attending Physician Stephanie Arroyo MD PCP [place] Date of Admission Jul 23, 2016 at 18:29 Home Medications Home Medications Reviewed patient Home Medication Reconciliation Form Allergies Coded Allergies: Penicillins (Unverified Allergy, Mild, 07/02/16) dimenhydrinate (Verified Allergy, Mild, 07/17/12) morphine (Unverified Allergy, Mild, RASH, 08/29/08) prochlorperazine (Unverified Allergy, Mild, 07/23/09) oxycodone (Unverified Allergy, Unknown, 05/14/10) Uncoded Allergies: ANTI-EMETICS (Allergy, Mild, 03/26/08) ANTI-NAUSEA MEDICATIONS EXCEPT DRAMAMINE (Allergy, Mild, MAKE HER HAVE ANXIETY ATTACKS, 08/29/08) ANTIEMETICS (Allergy, Mild, 12/09/08) NAUSEA MEDS (Allergy, Mild, 12/01/08) DLX-Rflceo-Aqfnbu Hx Patient Social History Alcohol Use: Denies Use Recreational Drug Use: No Smoking Status: Current Everyday Smoker Type Used: Cigarettes 2nd Hand Smoke Exposure: No Recent Foreign Travel: No Contact w/other who traveled: No Recent Hopitalizations: No Recent Infectious Disease Expo: No Physical Abuse Screen: No Sexual Abuse: No Immunizations Up To Date Tetanus Booster (TDap): Less than 5yrs Date of Pneumonia Vaccine: Jul 26, 2012 Date of Influenza Vaccine: Feb 13, 2014 Family Medical History Family History: Diabetes mellitus 19 MOTHER Headache disorder G8 SISTER Myocardial infarction 19 MOTHER STROKE 19 MOTHER Review of Systems (CHC) Constitutional: see HPI Physical Exam-(CHC) Physical Exam Vital Signs VS - Last 72 Hours, by Label 3/1007/23/16 07/23/16 07/23/16 15:46 17:58 19:00 19:15 Temp 98.6 98.6 98.6 97.4 Pulse 84 82 89 Resp 16 16 20 B/P 164/86 148/97 Pulse Ox 98 98 96 O2 Delivery Room Air 07/23/16 07/24/16 07/24/16 07/24/16 22:55 00:00 04:00 06:39 Temp 96.2 96.3 Pulse 80 75 Resp 20 18 B/P 162/96 163/96 Pulse Ox 96 94 97 93 O2 Delivery Room Air Room Air Capillary Refill : Less Than 3 Seconds General Appearance: no apparent distress Eyes: Bilateral Eye Normal Inspection HEENT: pharynx normal Neck: non-tender supple Respiratory: lungs clear Cardiovascular: regular rate, rhythm Gastrointestinal: soft Rectal: deferred Extremities: swelling (Noted at the forearm on the right with localized erythema on long the flexor aspect) other (Currently patient has full wraparound the hand.) Assessment/Plan Assessment/Plan Admission Dx 1. Cellulitis of the right hand with lymphangitis Plan 1. Cellulitis of the right hand with lymphangitis -Patient was admitted during the late afternoon of July 23, 2016 -Patient was started on IV Levaquin 750 mg daily as well as Flagyl 500 mg intravenous 3 times a day daily -For pain control she was given Toradol and for breakthrough pain hydrocodone. -Dr. Carlton is also consulted for wound management. Diagnosis/Problems: Clinical Quality Measures DVT/VTE Risk/Contraindication: Risk Factor Score Per Nursin RFS Level Per Nursing on Admit: 3=High STEPHANIE ARROYO MD Jul 24, 2016 06:23
[2016-07-24] MEDS ORDERED: FLU TRIvalent (5 YOA+) 2016-17 (AFLURIA) 0.5 ML IM ONE (07:30)
[2016-07-24] MEDS: amLODIPine 2.5MG (NORVASC) TAB PO SCH (08:28)
[2016-07-24] MEDS: clonazePAM 0.5 MG (KlonoPIN) TAB PO SCH ×2 (08:29→20:42)
[2016-07-24] MEDS: BACLOFEN 10 MG (LIORESAL) TAB PO SCH ×2 (08:29→20:42)
[2016-07-24] MEDS ORDERED: CLON0.1T14 PO (12:35)
[2016-07-24] MEDS: cloNIDine 0.1 MG (CATAPRES) TAB PO SCH ×2 (13:27→20:42)
[2016-07-24] MEDS: KETOROLAC 30 MG/ML VIAL IV PRN ×2 (15:56→22:08)
--- NOTE | 2016-07-24 16:00 | Wound Care Progress Note ---
Subjective Subjective Subjective/Events-last exam 46 year old female with a 2 week history of infectious complications related to R hand infection caused by stool organisms, E. coli, Enterobacter cloacae, and Bacteroides species. Following previous admission and drainage of R hand abscess, the patient failed to to take prescribed antibiotic, and ended up with lymphangitis requiring admission for lymphangitis. The patient is cautioned again about the need for appropriate antibiotics to prevent problems with use of her hand or even loss of the hand if she continues to fail to follow physician recommendations. Indeed at this time she demonstrated limited ROM of R thumb. I have discussed case with Dr. Miles and Dr. Evans. Would recommend continued IV antibiotics until 07/26/16, and then change-over to oral agents at discharge. This plan was also discussed with the patient. PMH: Morbid obesity, chronic bronchitis. SH: Smokes, has a child. FH: History of stroke, diabetes. Review of Systems General: No Chills HEENT: No Head Aches Pulmonary: No Dyspnea Cardiovascular: No: Chest Pain Gastrointestinal: : Nausea Musculoskeletal: : arm pain Objective Exam Last Set of Vital Signs Vital Signs Date Time Temp Pulse Resp B/P Pulse Ox O2 Delivery O2 Flow Rate FiO2 07/24/16 08:00 96.7 76 20 166/95 93 Room Air Capillary Refill : Less Than 3 Seconds I&O Bad tableGeneral: Alert, No Acute Distress HEENT: Atraumatic Lungs: Normal Air Movement Heart: Regular Rate Abdomen: Soft Skin: Other (Marked improvement of cellulitis; resolution of lymphangitis. Wound with slough.) Results Lab Laboratory Tests 07/23/16 16:35: Alanine Aminotransferase (ALT/SGPT) 19, Albumin 3.7, Alkaline Phosphatase 116, Anion Gap 9, Aspartate Amino Transf (AST/SGOT) 20, BUN/Creatinine Ratio 16, Basophils # (Auto) 0.1, Basophils (%) (Auto) 2, Blood Urea Nitrogen 12, C- Reactive Protein High Sensitivity 2.50H, Calcium Level 9.4, Carbon Dioxide Level 23, Chloride Level 110H, Creatinine 0.74, Eosinophils # (Auto) 0.4H, Eosinophils (%) (Auto) 5, Estimat Glomerular Filtration Rate > 60, Glucose Level 122H, Hematocrit 38, Hemoglobin 11.3L, Lymphocytes # (Auto) 1.7, Lymphocytes (%) (Auto) 21, Mean Corpuscular Hemoglobin 24L, Mean Corpuscular Hemoglobin Concent 30L, Mean Corpuscular Volume 80, Mean Platelet Volume 10.2, Monocytes # (Auto) 0.9, Monocytes (%) (Auto) 11, Neutrophils # (Auto) 4.8, Neutrophils (%) (Auto) 61, Platelet Count 317, Potassium Level 3.6, Red Blood Count 4.69, Red Cell Distribution Width 19.1H, Smear Scan YES, Sodium Level 142 , Total Bilirubin 0.3, Total Protein 7.3, White Blood Count 7.9 07/23/16 16:50: Lactic Acid Level 0.59 07/24/16 05:12: Anion Gap 12, BUN/Creatinine Ratio 15, Basophils # (Auto) 0.1, Basophils (%) ( Auto) 2, Blood Urea Nitrogen 10, Calcium Level 9.0, Carbon Dioxide Level 20L, Chloride Level 108H, Creatinine 0.67, Eosinophils # (Auto) 0.4H, Eosinophils (% ) (Auto) 7, Estimat Glomerular Filtration Rate > 60, Glucose Level 89, Hematocrit 37, Hemoglobin 11.0L, Lymphocytes # (Auto) 2.4, Lymphocytes (%) (Auto ) 38, Mean Corpuscular Hemoglobin 24L, Mean Corpuscular Hemoglobin Concent 30L, Mean Corpuscular Volume 81, Mean Platelet Volume 10.2, Monocytes # (Auto) 0.9, Monocytes (%) (Auto) 15H, Neutrophils # (Auto) 2.5, Neutrophils (%) (Auto) 39L, Platelet Count 273, Potassium Level 3.5L, Red Blood Count 4.60, Red Cell Distribution Width 18.8H, Sodium Level 140, White Blood Count 6.3 Assessment/Plan Assessment/Plan Assessment/Plan 1. Lymphangitis, R arm, improved on IV antibiotics. 2. Cellulitis R hand, improved. 3. Infected wound R hand with stool organisms. 4. History of failure to take prescribed antibiotics. Plan: In view of previous failure of patient to take prescribed antibiotics, will continue IV antibiotics for 48 hours. PAPITO JACOBS MD Jul 24, 2016 16:00
[2016-07-24] MEDS: LEVOFLOXACIN 750 MG/150 ML IV 150 ML IV SCH (17:14)
[2016-07-24] MEDS: PARoxetine 20 MG (PAXIL) TAB PO SCH (20:42)
[2016-07-25] VITALS: BP 135/0
[2016-07-25] MEDS: HYDROcodone/APAP 5 MG/325 MG (LORTAB) TAB PO PRN ×3 (03:14→21:30)
[2016-07-25] MEDS: metroNIDAZOLE 500MG/100ML IVPB 100 ML IV SCH ×3 (05:42→21:30)
[2016-07-25] MEDS: CATHETER FLUSH 10 ML SYR IV SCH ×3 (05:42→21:31)
[2016-07-25] MEDS: clonazePAM 0.5 MG (KlonoPIN) TAB PO SCH ×2 (07:32→21:30)
[2016-07-25] MEDS: BACLOFEN 10 MG (LIORESAL) TAB PO SCH ×2 (07:33→21:30)
--- NOTE | 2016-07-25 07:57 | Progress Note (SOAP) ---
Subjective Subjective/Events-last exam patient voices no concerns today. She had questions if she could go home. I informed her that she needs to stay in for antibiotics to get control of her infection. Patient does report the streaking on her right arm has gone down as well as swelling. Objective Exam Last Set of Vital Signs Vital Signs Date Time Temp Pulse Resp B/P Pulse Ox O2 Delivery O2 Flow Rate FiO2 07/25/16 00:00 96.8 96 17 135/0 94 Room Air Capillary Refill : Less Than 3 Seconds I&O Intake and Output 07/25/16 00:00 Intake Total 1800 ml Output Total 2050 ml Balance -250 ml Intake Oral 1600 ml IV Total 200 ml Output Urine Total 2050 ml # Bowel Movements 2 General: No Acute Distress Lungs: Clear to Auscultation Heart: Regular Rate Extremities: Other (patient indeed does have decreased swelling and less erythema to the flexor aspect of the right forearm) Results/Procedures Lab Microbiology 07/23/16 Blood Culture - Preliminary, Resulted No growth Assessment/Plan Assessment/Plan Admission Dx 1. Cellulitis of the right hand with lymphangitis Plan 1. Cellulitis of the right hand with lymphangitis -Patient was admitted during the late afternoon of July 23, 2016 -Patient was started on IV Levaquin 750 mg daily as well as Flagyl 500 mg intravenous 3 times a day daily -For pain control she was given Toradol and for breakthrough pain hydrocodone. -Dr. Carlton is also consulted for wound management. 07/25 patient is day number 2 of IV Levaquin and Flagyl. -continue current management Diagnosis/Problems: Clinical Quality Measures DVT/VTE Risk/Contraindication: Risk Factor Score Per Nursin RFS Level Per Nursing on Admit: 3=High STEPHANIE ARROYO MD Jul 25, 2016 07:57
[2016-07-25 08:00] VITALS: BP 156/94
[2016-07-25] MEDS: amLODIPine 2.5MG (NORVASC) TAB PO SCH (09:08)
[2016-07-25] MEDS: cloNIDine 0.1 MG (CATAPRES) TAB PO SCH ×2 (09:08→21:30)
[2016-07-25] MEDS: KETOROLAC 30 MG/ML VIAL IV PRN ×2 (09:09→18:06)
[2016-07-25] MEDS: LEVOFLOXACIN 750 MG/150 ML IV 150 ML IV SCH (10:31)
[2016-07-25 16:00] VITALS: BP 143/84
[2016-07-25] MEDS: PARoxetine 20 MG (PAXIL) TAB PO SCH (21:30)
[2016-07-26] VITALS: BP 145/89
[2016-07-26] MEDS: CATHETER FLUSH 10 ML SYR IV SCH (05:19)
[2016-07-26] MEDS: metroNIDAZOLE 500MG/100ML IVPB 100 ML IV SCH (05:20)
[2016-07-26] MEDS: HYDROcodone/APAP 5 MG/325 MG (LORTAB) TAB PO PRN ×2 (05:25→12:36)
[2016-07-26 08:00] VITALS: BP 143/78
[2016-07-26] MEDS: BACLOFEN 10 MG (LIORESAL) TAB PO SCH (08:41)
[2016-07-26] MEDS: clonazePAM 0.5 MG (KlonoPIN) TAB PO SCH (08:41)
[2016-07-26] MEDS: amLODIPine 2.5MG (NORVASC) TAB PO SCH (08:41)
[2016-07-26] MEDS: cloNIDine 0.1 MG (CATAPRES) TAB PO SCH (08:41)
[2016-07-26] MEDS: LEVOFLOXACIN 750 MG/150 ML IV 150 ML IV SCH (08:42)
[2016-07-26] MEDS: KETOROLAC 30 MG/ML VIAL IV PRN (08:42)
[2016-07-26] MEDS ORDERED: CLON0.5T3 PO (09:08)
[2016-07-26] MEDS ORDERED: HYDR25TA4 PO (09:08)
[2016-07-26] MEDS ORDERED: LOVA20TA2 PO (09:08)
[2016-07-26] MEDS ORDERED: CETI10TA17 PO (09:08)
[2016-07-26] MEDS ORDERED: FLUC150T2 PO (09:08)
[2016-07-26] MEDS ORDERED: HYDR-3816 PO (09:08)
[2016-07-26] MEDS ORDERED: OMEP40CA36 PO (09:08)
[2016-07-26] MEDS ORDERED: RT-ALBUINH INH (09:08)
[2016-07-26] MEDS ORDERED: MELO15TA39 PO (09:08)
[2016-07-26] MEDS ORDERED: LEVO750T39 PO (11:49)
[2016-07-26] MEDS ORDERED: METR500T PO (11:49)
--- NOTE | 2016-07-26 11:52 | Discharge Instructions ---
Discharge [facility] Discharge Medications New, Converted or Re-Newed RX: Transmitted to Pharmacy New Medications: Levofloxacin (Levofloxacin) 750 Mg Tablet 750 MG PO DAILY #14 TAB Metronidazole (Flagyl) 500 Mg Tablet 500 MG PO Q8H #42 Ref 0 TAB Continued Medications: Albuterol Sulfate (Proventil Hfa) 6.7 Gm Hfa.aer.ad 2 PUFF INH Q4H PRN SHORTNESS OF BREATH INHALER Amlodipine Besylate (Norvasc) 5 Mg Tablet 5 MG PO DAILY TAB Baclofen (Baclofen) 20 Mg Tablet 20 MG PO BID TAB Cetirizine HCl (Cetirizine HCl) 10 Mg Tablet 10 MG PO DAILY PRN ALLERGIES TAB Clonazepam (Clonazepam) 0.5 Mg Tablet 0.5 MG PO BID PRN ANXIETY TAB Clonidine HCl (Catapres) 0.1 Mg Tablet 0.1 MG PO TID TAB Hydrochlorothiazide (Hydrochlorothiazide) 25 Mg Tablet 25 MG PO DAILY PRN SWELLING TAB Hydrocodone/Acetaminophen (Hydrocodon-Acetaminoph 7.5-325) 1 Each Tablet 1 TAB PO TID PRN PAIN TAB Lovastatin (Lovastatin) 20 Mg Tablet 20 MG PO DAILY TAB Meloxicam (Meloxicam) 15 Mg Tablet 15 MG PO DAILY TAB Omeprazole (Omeprazole) 40 Mg Capsule.dr 40 MG PO DAILY PRN HEARTBURN CAP Paroxetine HCl (Paroxetine HCl) 40 Mg Tablet 40 MG PO HS TAB Discontinued Medications: Fluconazole (Fluconazole) 150 Mg Tablet 150 MG PO UD FILLED 2 TABS 07-22-17 1ST DOSE 17 THEN REPEAT IN 72 HOURS TAB Naproxen (Naproxen) 500 Mg Tablet 500 MG PO BID PRN PAIN TAB Sulfamethoxazole/Trimethoprim (Bactrim Ds Tablet) 1 Each Tablet 2 TAB PO BID 10 DAY THERAPY FILLED 07-22-17 Days 10 TAB Patient Instructions Goal/Follow Up Appt: Follow up with Wound care on 07/27 at 10:30 Follow up with Johanna Vazquez on 07/29 at 2:20 pm. Follow up with Orthopedic Surgery as instructed at last visit. Return to The Hospital For: Fever, increasing wound drainage, inability to keep down antibiotics Activity & Diet Activity as Tolerated: No (right hand activity per Orthopedic Surgery recommendations) Copy Copies To 1: FOUZIA Parrish BETHANY N MD Jul 26, 2016 11:52 am
--- NOTE | 2016-07-26 11:53 | Discharge Summary ---
Diagnosis/Chief Complaint Date of Admission Jul 23, 2016 at 6:29 pm Date of Discharge Jul 26, 2016 Admission Diagnosis Admission Diagnosis 1. Cellulitis of the right hand with lymphangitis Discharge Diagnosis 1. Cellulitis of the right hand with lymphangitis- cultures from 07/02 with strep anginosus, enterococcus faecalis, leclercia adecarboxylata- all sensitive to pcn and E coli resistant to pcn and bactrim, but sensitive to cipro; culture ; cultures from 07/12 with E coli two types, one sensitive to pcn the other resistant and enterococcus faecium sensitive to pcn and scan strep group D; cultures from 07/13 with Enterobacter cloacae sensitive to bactrim, cefepime, cipro and E coli resistant to pcn and bactrim, still sensitive to cipro. -Patient was admitted during the late afternoon of July 23, 2016 -Patient was started on IV Levaquin 750 mg daily as well as Flagyl 500 mg intravenous 3 times a day daily -For pain control she was given Toradol and for breakthrough pain hydrocodone. -Dr. Carlton is also consulted for wound management and recommended IV abx through the weekend with d/c on oral 07/26, she has follow-up with Dr. Carlton tomorrow and with Johanna Vazquez on 07/29, she was given levofloxacin and flagyl 14 day supply. She requested pain medication, and it was noted that she had been prescribed 42 tabs of hydrocodone (with instructions to take TID prn) on 07/15, so she should still have enough to get to her next appointment Chief Complaint/HPI Chief Complaint/HPI 46-year-old female presents to the emergency department with increasing redness and swelling to the right hand. Patient had undergone surgical wound debridement July 13, 2016 and apparently had a drain placed at that time. She apparently has not been on antibiotics since leaving the hospital. On further history she did not complete antibiotics that were given to her the week prior to her surgical debridement. She was started on Bactrim July 21, 2016 through [facility]. Apparently the wound has been draining and she has noted red streaks up the arm around the elbow. Discharge Summary-Simple/Stand Consultations Discharge Physical Examination Allergies: Coded Allergies: Penicillins (Unverified Allergy, Mild, 07/02/16) dimenhydrinate (Verified Allergy, Mild, 07/17/12) morphine (Unverified Allergy, Mild, RASH, 08/29/08) prochlorperazine (Unverified Allergy, Mild, 07/23/09) oxycodone (Unverified Allergy, Unknown, 05/14/10) Uncoded Allergies: ANTI-EMETICS (Allergy, Mild, 03/26/08) ANTI-NAUSEA MEDICATIONS EXCEPT DRAMAMINE (Allergy, Mild, MAKE HER HAVE ANXIETY ATTACKS, 08/29/08) ANTIEMETICS (Allergy, Mild, 12/09/08) NAUSEA MEDS (Allergy, Mild, 12/01/08) Vitals & I&Os Vital Sign - Last 12Hours Date Time Temp Pulse Resp B/P Pulse Ox O2 Delivery O2 Flow Rate FiO2 07/26/16 08:00 97.2 81 24 143/78 94 Room Air Intake and Output 07/26/16 00:00 Intake Total 500 ml Balance 500 ml General Appearance: Alert, No Acute Distress Extremities: Other (Hand dressed with no drinage or bleeding noted on bandage) Psych/Mental Status: Mental Status NL Hospital Course See final discharge diagnosis. Discharge Instructions to patient/family Please see electonic discharge instructions given to patient. Discharge Medications Reviewed and agree with Discharge Medication list on patient's Discharge Instruction sheet Clinical Quality Measures DVT/VTE Risk/Contraindication: Risk Factor Score Per Nursin RFS Level Per Nursing on Admit: 3=High Copy Copies To 1: FOUZIA Parrish BETHANY N MD Jul 26, 2016 11:53 am
[2016-07-26 13:59] VITALS: BP 143/78
== END 2016-07-26 14:01 | disposition home or self-care (01) | DRG 603 ==
LOC: EDUNIT# 14:51 → ER 14:52 → 4TH 18:29
PROVIDERS: ADMIT Family Medicine; ATTEND Family Medicine
DX: L03.114 Cellulitis of left upper limb (principal); F17.210 Nicotine dependence, cigarettes, uncomplicated; Z91.14 Patient's other noncompliance with medication regimen; F41.9 Anxiety disorder, unspecified; F32.9 Major depressive disorder, single episode, unspecified
CPT/HCPCS: 36415; 80048; 80053; 83605; 85025; 86141; 87040; 96361; 96365; 96375

== ENCOUNTER 2016-10-05 19:28 | Emergency (ER) | payer MEDICAID ==
[~2016-10-05] VITALS: Ht 167.6 cm; Wt 127.0 kg
[~2016-10-05 19:28] MED LIST changes: +BACL20TA PO; +CETI10CA PO; +CLON0.1T14 PO; +CLON0.5T PO; +FLUC150T2 PO; +LEVO750T39 PO; +NAPR500T3 PO; +RT-ALBUINH INH
[2016-10-05] MEDS ORDERED: HYDR-757 PO (20:40)
--- NOTE | 2016-10-05 20:41 | ED Integumentary General ---
General Chief Complaint: Skin/Wound Problems Stated Complaint: ABSESS ON HIP Nursing Triage Note: PT TO ED W/ C/O POSS ABSCESS TO RT HIP ONSET AFTER HAVING A SHOT OF TORADOL AT [facility] X2 WKS AGO. Source: patient Exam Limitations: no limitations History of Present Illness Time seen by provider: 20:37 Initial Comments To ER with complaints of a possible abscess to the right hip after Toradol injection to this location 2 weeks ago at [facility]. No fevers or chills. Timing/Duration: other (2 weeks ago) Severity: moderate Associated Symptoms: denies symptoms Allergies and Home Medications Allergies Coded Allergies: Penicillins (Unverified Allergy, Mild, 07/02/16) dimenhydrinate (Verified Allergy, Mild, 07/17/12) morphine (Unverified Allergy, Mild, RASH, 08/29/08) prochlorperazine (Unverified Allergy, Mild, 07/23/09) oxycodone (Unverified Allergy, Unknown, 05/14/10) Uncoded Allergies: ANTI-EMETICS (Allergy, Mild, 03/26/08) ANTI-NAUSEA MEDICATIONS EXCEPT DRAMAMINE (Allergy, Mild, MAKE HER HAVE ANXIETY ATTACKS, 08/29/08) ANTIEMETICS (Allergy, Mild, 12/09/08) NAUSEA MEDS (Allergy, Mild, 12/01/08) Home Medications Albuterol Sulfate 6.7 Gm Hfa.aer.ad, 2 PUFF INH Q4H PRN for SHORTNESS OF BREATH, (Reported) Amlodipine Besylate 5 Mg Tablet, 5 MG PO DAILY, (Reported) Baclofen 20 Mg Tablet, 20 MG PO BID, (Reported) Cetirizine HCl 10 Mg Tablet, 10 MG PO DAILY PRN for ALLERGIES, (Reported) Clonazepam 0.5 Mg Tablet, 0.5 MG PO BID PRN for ANXIETY, (Reported) Clonidine HCl 0.1 Mg Tablet, 0.1 MG PO TID, (Reported) Hydrochlorothiazide 25 Mg Tablet, 25 MG PO DAILY PRN for SWELLING, (Reported) Hydrocodone/Acetaminophen 1 Each Tablet, 1 TAB PO TID PRN for PAIN, (Reported) Levofloxacin 750 Mg Tablet, 750 MG PO DAILY, #14 Prescribed by: SHAHNAZ ARAIZA on 07/26/16 1149 Lovastatin 20 Mg Tablet, 20 MG PO DAILY, (Reported) Meloxicam 15 Mg Tablet, 15 MG PO DAILY, (Reported) Metronidazole 500 Mg Tablet, 500 MG PO Q8H, #42 Ref 0 Prescribed by: SHAHNAZ ARAIZA on 07/26/16 1149 Omeprazole 40 Mg Capsule.dr, 40 MG PO DAILY PRN for HEARTBURN, (Reported) Paroxetine HCl 40 Mg Tablet, 40 MG PO HS, (Reported) Constitutional: see HPI EENTM: see HPI Respiratory: no symptoms reported Cardiovascular: no symptoms reported Genitourinary: no symptoms reported Musculoskeletal: no symptoms reported Skin: see HPI Psychiatric/Neurological: No Symptoms Reported Endocrine: No Symptoms Reported Past Xejjinv-Ibjvcv-Hpkrlz Hx Patient Social History Alcohol Use: Denies Use Recreational Drug Use: No Smoking Status: Current Everyday Smoker Type Used: Cigarettes 2nd Hand Smoke Exposure: No Recent Foreign Travel: No Contact w/Someone Who Travel: No Recent Infectious Disease Expo: No Recent Hopitalizations: No Immunizations Up To Date Tetanus Booster (TDap): Less than 5yrs Date of Pneumonia Vaccine: Jul 26, 2012 Date of Influenza Vaccine: Feb 13, 2014 Seasonal Allergies Seasonal Allergies: No Surgeries HX Surgeries: Yes (LUNG SURGERY FOR EMPYEMA, LEFT OVARIAN CYST REMOVAL; HYST/ BSO) Surgeries: Appendectomy, Section, Hysterectomy, Oophorectomy, Tonsillectomy Respiratory Hx Respiratory Disorders: Yes (EMPYEMA--S/P LUNG SURGERY FOR REMOVAL) Respiratory Disorders: Asthma Cardiovascular Hx Cardiac Disorders: Yes Cardiac Disorders: Hypertension Neurological Hx Neurological Disorders: No Reproductive System Hx Reproductive Disorders: Yes (MULTIPLE OVARIAN CYSTS. 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 Genitourinary Hx Genitourinary Disorders: No Gastrointestinal Hx Gastrointestinal Disorders: Yes Gastrointestinal Disorders: Gastroesophageal Reflux, Irritable Bowel Musculoskeletal Hx Musculoskeletal Disorders: Yes Musculoskeletal Disorders: Degenerate Disk Disease, Chronic Back Pain Endocrine Hx Endocrine Disorders: Yes (MORBID OBESTIY) HEENT HX ENT Disorders: Yes (WEARS GLASSES) Hearing Impairment: Denies Cancer Hx Cancer: No Psychosocial Hx Psychiatric Problems: Yes Behavioral Health Disorders: Sleep Difficulties, Anxiety, Depression Integumentary HX Skin/Integumentary Disorder: Yes (ABSCESSES, MULTIPLE WOUND INFECTIONS, STAPH) Blood Transfusions Hx Blood Disorders: No Family Medical History Family Medial History: Diabetes mellitus 19 MOTHER Headache disorder G8 SISTER Myocardial infarction 19 MOTHER STROKE 19 MOTHER Physical Exam Vital Signs Vital Sign - Last 12Hours 10/05/16 19:33 Temp 97.6 Pulse 73 Resp 20 B/P (MAP) 141/76 Pulse Ox 93 O2 Delivery Room Air Capillary Refill : Less Than 3 Seconds General Appearance: WD/WN, no apparent distress HEENT: PERRL/EOMI, normal ENT inspection Neck: non-tender, full range of motion Respiratory: no respiratory distress, no accessory muscle use Gastrointestinal: non tender, soft Neurologic/Psychiatric: alert, normal mood/affect, oriented x 3 Skin: normal color, warm/dry Skin Problem Location: lower extremities Skin Problem Character: erythema, other (quarter sized area of erythema to the right intergluteal region which could be from an injection as it is in the appropriate location. There is no fluctuance to suggest abscess. This is only indurated and a small area and there is no surrounding cellulitis.) Laceration Repair : Suture Size: 4-0 Progress/Results/Core Measures Results/Orders My Orders Orders - TAE CUNHA APRN Prednisone Tablet (Deltasone Tablet) (10/05/16 20:45) Hydrocodone/Apap 5/325 Tablet (Lortab 5 (10/05/16 20:45) Sulfamethoxazole/Trimet Ds Tab (Bactrim (10/05/16 20:45) Vital Signs/I&O Vital Sign - Last 12Hours 10/05/16 19:33 Temp 97.6 Pulse 73 Resp 20 B/P (MAP) 141/76 Pulse Ox 93 O2 Delivery Room Air Blood Pressure Mean: 97 Departure Impression Impression: Primary Impression: induration of soft tissue Disposition: 01 HOME, SELF-CARE Condition: Stable Departure-Patient Inst. Decision time for Depature: 20:38 Referrals: LONNIE WIGGINS (PCP) Primary Care Physician [facility] (Family) Primary Care Physician Patient Instructions: NO INSTRUCTIONS GIVEN Add. Discharge Instructions: 1. Return to ER for any fevers 2. Follow-up with your doctor next week 3. Warm compresses to this area All discharge instructions reviewed with patient and/or family. Voiced understanding. Scripts Hydrocodone/Acetaminophen ([place] 5-325 Tablet) 1 Each Tablet 1 EACH PO Q4H, #10 TAB Prov: TAE CUNHA APRN 10/05/16 TAE CUNHA APRN October 05, 2016 20:41
[2016-10-05] MEDS ORDERED: predniSONE 20 MG TAB PO ONE (20:45)
[2016-10-05] MEDS ORDERED: TRIM/SULFAMETH 160/800 (SEPTRA DS) TAB PO ONE (20:45)
[2016-10-05] MEDS ORDERED: HYDROcodone/APAP 5 MG/325 MG (LORTAB) TAB PO ONE (20:45)
[2016-10-05 20:52] VITALS: BP 141/76
== END 2016-10-05 20:52 | disposition home or self-care (01) ==
LOC: EDUNIT# 19:28 → ER 19:30
DX: M79.9 Soft tissue disorder, unspecified (principal); I10 Essential (primary) hypertension; E66.01 Morbid (severe) obesity due to excess calories; F17.210 Nicotine dependence, cigarettes, uncomplicated; Z79.899 Other long term (current) drug therapy
CPT/HCPCS: 99281

== ENCOUNTER 2016-12-06 17:12 | Inpatient (IN) | payer MEDICAID ==
[~2016-12-06] VITALS: Ht 167.6 cm; Wt 124.7 kg
[~2016-12-06 17:12] MED LIST changes: +ASPI-789 PO; -ASPI1TAB22 PO; +NAPR-1070 PO; -NAPR500T3 PO; +NAPR500T4 PO; -NAPR550T PO
--- NOTE | 2016-12-06 18:32 | ED Upper Extremity ---
General Chief Complaint: Upper Extremity Stated Complaint: R ARM SWELLING/REDNESS Nursing Triage Note: Pt c/o right elbow pain starting yesterday. redness, swelling, tenderness, warmth noted. Nursing Sepsis Screen: No Definite Risk Source: patient Exam Limitations: no limitations History of Present Illness Time seen by provider: 18:26 Initial Comments patient presents to ER by private conveyance with a chief complaint of 3 weeks progressively worsening right elbow swelling. She does not member falling or injuring her right arm or overusing it. She says there is no bite zamora from a bug and she has not had any drainage from her arm. She says it hurts to extend her arm all the way out area this is never happened before. She says she has full use of her hand however.she has not taken anything for the pain and has not gone to see her doctor. She states she's having a little nausea but no vomiting. Allergies and Home Medications Allergies Coded Allergies: Penicillins (Unverified Allergy, Mild, 07/02/16) dimenhydrinate (Verified Allergy, Mild, 07/17/12) morphine (Unverified Allergy, Mild, RASH, 08/29/08) prochlorperazine (Unverified Allergy, Mild, 07/23/09) oxycodone (Unverified Allergy, Unknown, 05/14/10) Uncoded Allergies: ANTI-EMETICS (Allergy, Mild, 03/26/08) ANTI-NAUSEA MEDICATIONS EXCEPT DRAMAMINE (Allergy, Mild, MAKE HER HAVE ANXIETY ATTACKS, 08/29/08) ANTIEMETICS (Allergy, Mild, 12/09/08) NAUSEA MEDS (Allergy, Mild, 12/01/08) Home Medications Albuterol Sulfate 6.7 Gm Hfa.aer.ad, 2 PUFF INH Q4H PRN for SHORTNESS OF BREATH, (Reported) Amlodipine Besylate 5 Mg Tablet, 5 MG PO DAILY, (Reported) Baclofen 20 Mg Tablet, 20 MG PO BID, (Reported) Cetirizine HCl 10 Mg Tablet, 10 MG PO DAILY PRN for ALLERGIES, (Reported) Clonazepam 0.5 Mg Tablet, 0.5 MG PO BID PRN for ANXIETY, (Reported) Clonidine HCl 0.1 Mg Tablet, 0.1 MG PO TID, (Reported) Hydrochlorothiazide 25 Mg Tablet, 25 MG PO DAILY PRN for SWELLING, (Reported) Hydrocodone/Acetaminophen 1 Each Tablet, 1 TAB PO TID PRN for PAIN, (Reported) Lovastatin 20 Mg Tablet, 20 MG PO DAILY, (Reported) Meloxicam 15 Mg Tablet, 15 MG PO DAILY, (Reported) Omeprazole 40 Mg Capsule.dr, 40 MG PO DAILY PRN for HEARTBURN, (Reported) Paroxetine HCl 40 Mg Tablet, 40 MG PO HS, (Reported) Constitutional: No chills, No fever, No malaise Respiratory: No cough, No short of breath Cardiovascular: No chest pain, No palpitations Gastrointestinal: No constipation, No diarrhea, nausea, No vomiting Genitourinary: No discharge, No dysuria : No Musculoskeletal: see HPI, No back pain, joint pain Skin: rash, other (swelling and pain) Psychiatric/Neurological: Denies Headache, Denies Numbness Past Mohlaqg-Gdohec-Khqjla Hx Patient Social History Alcohol Use: Denies Use Recreational Drug Use: No Smoking Status: Current Everyday Smoker Type Used: Cigarettes 2nd Hand Smoke Exposure: No Recent Foreign Travel: No Contact w/Someone Who Travel: No Recent Infectious Disease Expo: No Recent Hopitalizations: No Immunizations Up To Date Tetanus Booster (TDap): Less than 5yrs Date of Pneumonia Vaccine: Jul 26, 2012 Date of Influenza Vaccine: Feb 13, 2014 Seasonal Allergies Seasonal Allergies: No Surgeries HX Surgeries: Yes (LUNG SURGERY FOR EMPYEMA, LEFT OVARIAN CYST REMOVAL; HYST/ BSO) Surgeries: Appendectomy, Section, Hysterectomy, Oophorectomy, Tonsillectomy Respiratory Hx Respiratory Disorders: Yes (EMPYEMA--S/P LUNG SURGERY FOR REMOVAL) Respiratory Disorders: Asthma Cardiovascular Hx Cardiac Disorders: Yes Cardiac Disorders: Hypertension Neurological Hx Neurological Disorders: No Reproductive System Hx Reproductive Disorders: Yes (MULTIPLE OVARIAN CYSTS. 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 Genitourinary Hx Genitourinary Disorders: No Gastrointestinal Hx Gastrointestinal Disorders: Yes Gastrointestinal Disorders: Gastroesophageal Reflux, Irritable Bowel Musculoskeletal Hx Musculoskeletal Disorders: Yes Musculoskeletal Disorders: Degenerate Disk Disease, Chronic Back Pain Endocrine Hx Endocrine Disorders: Yes (MORBID OBESTIY) HEENT HX ENT Disorders: Yes (WEARS GLASSES) Hearing Impairment: Denies Cancer Hx Cancer: No Psychosocial Hx Psychiatric Problems: Yes Behavioral Health Disorders: Sleep Difficulties, Anxiety, Depression Integumentary HX Skin/Integumentary Disorder: Yes (ABSCESSES, MULTIPLE WOUND INFECTIONS, STAPH) Blood Transfusions Hx Blood Disorders: No Family Medical History Family Medial History: Diabetes mellitus 19 MOTHER Headache disorder G8 SISTER Myocardial infarction 19 MOTHER STROKE 19 MOTHER Physical Exam Vital Signs Vital Sign - Last 12Hours 12/06/16 18:10 Temp 98.8 Pulse 82 Resp 18 B/P (MAP) 141/86 Capillary Refill : Less Than 3 Seconds General Appearance: mild distress, No WD/WN HEENT: PERRL/EOMI, pharynx normal Cardiovascular: normal peripheral pulses, regular rate, rhythm Respiratory: lungs clear, normal breath sounds Shoulder: normal inspection, no evidence of injury Elbow/Forearm: Right, limited ROM (difficulty extending secondary to pain), pain, soft tissue tenderness, swelling Wrist: Yes normal inspection, Yes non-tender, Yes no evidence of injury Hand: normal inspection, no evidence of injury, normal ROM Neurologic/Tendon: normal sensation, normal motor functions, normal tendon functions, responds to pain Neurologic/Psychiatric: no motor/sensory deficits, alert, oriented x 3 Skin: other (erythema and edema over right elbow) Laceration Repair : Suture Size: 4-0 Progress/Results/Core Measures Results/Orders Lab Results Laboratory Tests Test 12/06/16 20:05 Range/Units White Blood Count 10.3 4.3-11.0 10^3/uL Red Blood Count 4.56 4.35-5.85 10^6/uL Hemoglobin 10.2 L 11.5-16.0 G/DL Hematocrit 35 35-52 % Mean Corpuscular Volume 77 L 80-99 FL Mean Corpuscular Hemoglobin 22 L 25-34 PG Mean Corpuscular Hemoglobin Concent 29 L 32-36 G/DL Red Cell Distribution Width 18.9 H 10.0-14.5 % Platelet Count 279 130-400 10^3/uL Mean Platelet Volume 10.9 H 7.4-10.4 FL Neutrophils (%) (Auto) 56 42-75 % Lymphocytes (%) (Auto) 26 12-44 % Monocytes (%) (Auto) 13 H 0-12 % Eosinophils (%) (Auto) 4 0-10 % Basophils (%) (Auto) 1 0-10 % Neutrophils # (Auto) 5.8 1.8-7.8 X 10^3 Lymphocytes # (Auto) 2.7 1.0-4.0 X 10^3 Monocytes # (Auto) 1.3 H 0.0-1.0 X 10^3 Eosinophils # (Auto) 0.5 H 0.0-0.3 10^3/uL Basophils # (Auto) 0.1 0.0-0.1 10^3/uL Prothrombin Time 13.9 12.2-14.7 SEC INR Comment 1.1 0.8-1.4 Activated Partial Thromboplast Time 27 24-35 SEC Sodium Level 136 135-145 MMOL/L Potassium Level 3.8 3.6-5.0 MMOL/L Chloride Level 105 98-107 MMOL/L Carbon Dioxide Level 24 21-32 MMOL/L Anion Gap 7 5-14 MMOL/L Blood Urea Nitrogen 8 7-18 MG/DL Creatinine 0.74 0.60-1.30 MG/DL Estimat Glomerular Filtration Rate > 60 BUN/Creatinine Ratio 11 Glucose Level 88 70-105 MG/DL Lactic Acid Level 0.69 0.50-2.00 MMOL/L Calcium Level 8.5 8.5-10.1 MG/DL Magnesium Level 1.5 L 1.8-2.4 MG/DL Total Bilirubin 0.3 0.1-1.0 MG/DL Aspartate Amino Transf (AST/SGOT) 17 5-34 U/L Alanine Aminotransferase (ALT/SGPT) 19 0-55 U/L Alkaline Phosphatase 88 40-136 U/L Total Creatine Kinase 68 29-168 U/L Total Protein 6.0 L 6.4-8.2 GM/DL Albumin 3.3 3.2-4.5 GM/DL My Orders Orders - MARCELLA FARRELL Forearm, Right, 2 Views (12/06/16 18:33) Elbow, Right, 3 Views (12/06/16 18:33) Acetaminophen Tablet (Tylenol Tablet) (12/06/16 18:33) Ketorolac Injection (Toradol Injection) (12/06/16 18:33) Ondansetron Injection (Zofran Injectio (12/06/16 18:45) Fentanyl Injection (Sublimaze Injection (12/06/16 19:34) Cbc With Automated Diff (12/06/16 19:34) Comprehensive Metabolic Panel (12/06/16 19:34) Creatine Kinase (12/06/16 19:34) Magnesium (12/06/16 19:34) Saline Lock/Iv-Start (12/06/16 19:34) Ns Iv 1000 Ml (Sodium Chloride 0.9%) (12/06/16 19:34) Lactic Acid Analyzer (12/06/16 19:34) Blood Culture (12/06/16 19:34) Sputum Culture (12/06/16 19:34) Ua Culture If Indicated (12/06/16 19:34) Protime With Inr (12/06/16 19:34) Partial Thromboplastin Time (12/06/16 19:34) Chest 1 View, Ap/Pa Only (12/06/16 19:34) O2 (12/06/16 19:34) Saline Lock/Iv-Start (12/06/16 19:34) Vital Signs Adult Sepsis Patie Q1HR (12/06/16 19:34) Vancomycin Injection (Vancomycin Injecti (12/06/16 19:45) Remove Rings In Anticipation O (12/06/16 19:34) Ondansetron Injection (Zofran Injectio (12/06/16 20:00) Ceftriaxone Injection (Rocephin Injectio (12/06/16 21:00) Medications Given in ED Current Medications Medications Dose Ordered Sig/Jesus Route Start Time Stop Time Status Last Admin Dose Admin Ondansetron HCl 4 mg ONCE ONCE IM 12/06/16 18:45 12/06/16 18:46 DC 12/06/16 19:04 4 MG Ondansetron HCl 4 mg ONCE ONCE IVP 12/06/16 20:00 12/06/16 20:01 DC 12/06/16 20:10 4 MG Sodium Chloride 1,000 ml @ 0 mls/hr Q0M ONCE IV 12/06/16 19:34 12/06/16 19:42 DC 12/06/16 20:10 1,000 MLS/HR Vital Signs/I&O Vital Sign - Last 12Hours 12/06/16 18:10 Temp 98.8 Pulse 82 Resp 18 B/P (MAP) 141/86 Blood Pressure Mean: 104 Progress Note #1: Time: 18:52 Progress Note bedside ultrasound does not show any loculations or collections of fluid that might be consistent with an abscess. She says she has been having a lot of pictures and her new home. Tennis elbow is possible as well as potential for cellulitis. We will cover with antibiotics and give her a modest amount of pain meds. After consulting the [facility], she receives several small dose opiate prescriptions most of which are from local ER or her PCP. we'll also dose her with NSAIDs and encourage her to continue this practice as well as other conservative care and the off chance this is more an effusion from her joint. Progress Note #2: Time: 19:33 Progress Note Left voicemail for the general surgeon. We'll go ahead and get some labs to include a CK and blood cultures. We'll also initiate her on some antibiotics. The patient states she is adamant against staying here on an inpatient status. We'll try and further characterize whether or not the possibility of necrotizing fasciitis with lab. Patient also denies that she uses IV drugs or had any needles in her arm for blood transfusions donations or lab draws recently. She says she did scrape her arm open at the [facility] about 2-3 weeks ago. Diagnostic Imaging Diagonstic Imaging: Xray Plain Films/CT/US/NM/MRI: forearm (right), elbow (right) Comments VIA [facility]. [place], [place] NAME: PAULA SALAZAR [facility] REC#: [id number] PT STATUS: REG ER : 1970 PHYSICIAN: MARCELLA FARRELL MD ADMIT DATE: 12/06/16/ER Draft Date of Exam:12/06/16 ELBOW, RIGHT, 3 VIEWS INDICATION: Elbow pain, redness and warmth since yesterday. EXAMINATION: Right elbow dated 12/06/2016 FINDINGS: Three views of the elbow There is marked soft tissue abnormality about the elbow both and subcutaneous soft tissues and underlying musculature suspected as well. Foci of air is seen posterior to the proximal ulna on the lateral view. Other tiny punctate foci of air more distally difficult to exclude. No fractures identified, no joint effusion. IMPRESSION: 1. Findings described above most consistent with infectious process about the soft tissues. An underlying small abscess difficult to exclude given the focus of air. Otherwise, if there is no puncture wound and underlying necrotizing fasciitis cannot be excluded and further imaging may be warranted. Dictated on workstation # [id number] Dict: 12/06/161904 Trans: 12/06/161907 [facility] [id number] Interpreted by: DAISY CASANOVA MD Electronically signed by: [facility] [place], [place] NAME: PAULA SALAZAR [facility] REC#: [id number] PT STATUS: REG ER : 1970 PHYSICIAN: MARCELLA FARRELL MD ADMIT DATE: 12/06/16/ER Draft Date of Exam:12/06/16 FOREARM, RIGHT, 2 VIEWS INDICATION: Elbow pain, redness and warmth. EXAMINATION: Right Forearm dated 12/06/2016. FINDINGS: Two views of the forearm demonstrate soft tissue prominence about the proximal forearm with lucencies posterior to the proximal ulna, which could represent a puncture wound. Vague tiny punctate other lucencies extending more distally along the posterior forearm are noted and could represent areas of heterogeneous soft tissue findings versus small amount of foci of air in the soft tissues. No radiopaque foreign bodies are appreciated. An underlying abscess containing air is not excluded on plain films given the history. The underlying osseous structures are intact. There is no significant joint effusion or fractures. IMPRESSION: 1. Lucencies described above with surrounding soft tissue abnormality suspicious for an infectious etiology given history versus a puncture wound and secondary subcutaneous air. Clinical exclusion of a process such as necrotizing fasciitis or underlying abscess is recommended. Dictated on workstation # [id number] Dict: 12/06/161901 Trans: 12/06/161913 [id number] Interpreted by: DAISY CASANOVA MD Electronically signed by: Reviewed: Reviewed by Me Departure Communication Time/Spoke to Admitting Phy: 21:[address] Howard. She be willing to admit the patient and consult Dr. Andrew in the morning. Make sure the patient has Zofran and pain meds. Should get a drug screen. Discussed the case and workup so far. Impression Impression: Primary Impression: Right elbow pain Additional Impressions: Cellulitis Qualified Codes: L03.113 - Cellulitis of right upper limb Necrotizing cellulitis Disposition: ADMITTED INPATIENT (obs) Condition: Improved Decision to Admit Reason: Admit from ER (General) Decision to Admit/Date: Dec 06, 2016 Time/Decision to Admit Time: 21:16 Departure-Patient Inst. Referrals: [facility] [place] (PCP/Family) Primary Care Physician Copy Copies To 1: BEAR YOUNG DO Copies To 2: CHRISTEL ANDREW TITUS J Dec 06, 2016 18:32
[2016-12-06] MEDS ORDERED: KETOROLAC 30 MG/ML VIAL IM STA (18:33)
[2016-12-06] MEDS ORDERED: ACETAMINOPHEN 500 MG TAB (TYLENOL) PO STA (18:33)
[2016-12-06] MEDS ORDERED: ONDANSETRON 4 MG/2 ML (SDV) Z0FRAN IM ONE (18:45)
--- NOTE | 2016-12-06 19:09 | Diagnostic Imaging Report ---
INDICATION: Elbow pain, redness and warmth since yesterday. EXAMINATION: Right elbow dated 12/06/2016 FINDINGS: Three views of the elbow There is marked soft tissue abnormality about the elbow both and subcutaneous soft tissues and underlying musculature suspected as well. Foci of air is seen posterior to the proximal ulna on the lateral view. Other tiny punctate foci of air more distally difficult to exclude. No fractures identified, no joint effusion. IMPRESSION: 1. Findings described above most consistent with infectious process about the soft tissues. An underlying small abscess difficult to exclude given the focus of air. Otherwise, if there is no puncture wound and underlying necrotizing fasciitis cannot be excluded and further imaging may be warranted. Dictated by: Dictated on workstation # [id number]
--- NOTE | 2016-12-06 19:15 | Diagnostic Imaging Report ---
INDICATION: Elbow pain, redness and warmth. EXAMINATION: Right Forearm dated 12/06/2016. FINDINGS: Two views of the forearm demonstrate soft tissue prominence about the proximal forearm with lucencies posterior to the proximal ulna, which could represent a puncture wound. Vague tiny punctate other lucencies extending more distally along the posterior forearm are noted and could represent areas of heterogeneous soft tissue findings versus small amount of foci of air in the soft tissues. No radiopaque foreign bodies are appreciated. An underlying abscess containing air is not excluded on plain films given the history. The underlying osseous structures are intact. There is no significant joint effusion or fractures. IMPRESSION: 1. Lucencies described above with surrounding soft tissue abnormality suspicious for an infectious etiology given history versus a puncture wound and secondary subcutaneous air. Clinical exclusion of a process such as necrotizing fasciitis or underlying abscess is recommended. Dictated by: Dictated on workstation # [id number]
[2016-12-06] MEDS ORDERED: NS IV 1000 ML 1,000 ML IV ONE (19:34)
[2016-12-06] MEDS ORDERED: fentaNYL INJECTION 100 MCG/2 ML AMP IVP STA (19:34)
[2016-12-06] MEDS ORDERED: VANCOMYCIN INJECTION 1,000 MG in NS (IVPB) 250 ML IV ONE (19:45)
[2016-12-06] MEDS ORDERED: ONDANSETRON 4 MG/2 ML (SDV) Z0FRAN IVP ONE (20:00)
--- NOTE | 2016-12-06 20:09 | Diagnostic Imaging Report ---
INDICATION: Sepsis. Compared 07/17/2016 FINDINGS: The heart size upper limits but stable from prior. No overt vascular congestion. Some minimal likely scarring or trace atelectasis right perihilar but no evidence for pneumonia. No convincing evidence for pleural effusion. No failure pattern. IMPRESSION: No acute appearing abnormality Dictated by: Dictated on workstation # [id number]
[2016-12-06 20:22] LABS: BASOPHILS # (AUTO) 0.1 10^3/uL (0.0-0.1); BASOPHILS % (AUTO) 1 % (0-10); EOSINOPHILS # (AUTO) 0.5 10^3/uL (0.0-0.3); EOSINOPHILS % (AUTO) 4 % (0-10); LYMPHOCYTES # (AUTO) 2.7 X 10^3 (1.0-4.0); LYMPHOCYTES % (AUTO) 26 % (12-44); MEAN CORPUSCULAR HEMOGLOBIN 22 PG (25-34); MEAN CORPUSCULAR HGB CONC 29 G/DL (32-36); MEAN CORPUSCULAR VOLUME 77 FL (80-99); MEAN PLATELET VOLUME 10.9 FL (7.4-10.4); MONOCYTES # (AUTO) 1.3 X 10^3 (0.0-1.0); MONOCYTES % (AUTO) 13 % (0-12); NEUTROPHILS # (AUTO) 5.8 X 10^3 (1.8-7.8); NEUTROPHILS % (AUTO) 56 % (42-75); PLATELET COUNT 279 10^3/uL (130-400); RED BLOOD COUNT 4.56 10^6/uL (4.35-5.85); RED CELL DISTRIBUTION WIDTH 18.9 % (10.0-14.5); WHITE BLOOD COUNT 10.3 10^3/uL (4.3-11.0)
[2016-12-06 20:35] LABS: INR 1.1 (0.8-1.4); PROTHROMBIN TIME PATIENT 13.9 SEC (12.2-14.7)
[2016-12-06 20:43] LABS: ALANINE AMINOTRANSFERASE 19 U/L (0-55); ALBUMIN 3.3 GM/DL (3.2-4.5); ANION GAP 7 MMOL/L (5-14); ASPARTATE AMINO TRANSFERASE 17 U/L (5-34); BILIRUBIN,TOTAL 0.3 MG/DL (0.1-1.0); BLOOD UREA NITROGEN 8 MG/DL (7-18); BUN/CREATININE RATIO 11; CALCIUM 8.5 MG/DL (8.5-10.1); CARBON DIOXIDE 24 MMOL/L (21-32); CHLORIDE 105 MMOL/L (98-107); CREATINE KINASE 68 U/L (29-168); CREATININE SERUM 0.74 MG/DL (0.60-1.30); GFR ESTIMATED > 60; GLUCOSE 88 MG/DL (70-105); MAGNESIUM 1.5 MG/DL (1.8-2.4); POTASSIUM 3.8 MMOL/L (3.6-5.0); SODIUM 136 MMOL/L (135-145)
[2016-12-06] MEDS ORDERED: cefTRIAXone INJECTION 2,000 MG in NS (IVPB) 50 ML IV ONE (21:00)
[2016-12-06 21:24] LABS: BILIRUBIN,URINE NEGATIVE (NEGATIVE); KETONES,URINE NEGATIVE (NEGATIVE); LEUKOCYTE ESTERASE ,URINE NEGATIVE (NEGATIVE); NITRITE,URINE NEGATIVE (NEGATIVE); PH,URINE 6 (5-9); PROTEIN,URINE NEGATIVE (NEGATIVE); UROBILINOGEN,URINE NORMAL (NORMAL)
[2016-12-06 21:34] LABS: SQUAMOUS EPITHELIAL CELL,UR 0-2 /HPF; WBC,URINE 0-2 /HPF
[2016-12-06 22:40] VITALS: BP 105/69
[2016-12-06] MEDS ORDERED: CATHETER FLUSH 10 ML SYR IV PRN (23:00)
[2016-12-06] MEDS ORDERED: ACETAMINOPHEN 500 MG TAB (TYLENOL) PO PRN (23:00)
[2016-12-07 00:15] VITALS: BP 153/64
[2016-12-07] MEDS: fentaNYL INJECTION 100 MCG/2 ML AMP IV PRN ×9 (02:47→23:59)
[2016-12-07] MEDS: ONDANSETRON 4 MG/2 ML (SDV) Z0FRAN IV PRN ×4 (02:50→23:59)
[2016-12-07 04:00] VITALS: BP 99/64
[2016-12-07 05:04] LABS: BASOPHILS # (AUTO) 0.1 10^3/uL (0.0-0.1); BASOPHILS % (AUTO) 1 % (0-10); EOSINOPHILS # (AUTO) 0.4 10^3/uL (0.0-0.3); EOSINOPHILS % (AUTO) 4 % (0-10); LYMPHOCYTES # (AUTO) 1.7 X 10^3 (1.0-4.0); LYMPHOCYTES % (AUTO) 19 % (12-44); MEAN CORPUSCULAR HEMOGLOBIN 23 PG (25-34); MEAN CORPUSCULAR HGB CONC 29 G/DL (32-36); MEAN CORPUSCULAR VOLUME 77 FL (80-99); MEAN PLATELET VOLUME 11.7 FL (7.4-10.4); MONOCYTES # (AUTO) 1.1 X 10^3 (0.0-1.0); MONOCYTES % (AUTO) 13 % (0-12); NEUTROPHILS # (AUTO) 5.6 X 10^3 (1.8-7.8); NEUTROPHILS % (AUTO) 63 % (42-75); PLATELET COUNT 278 10^3/uL (130-400); RED BLOOD COUNT 4.39 10^6/uL (4.35-5.85); RED CELL DISTRIBUTION WIDTH 19.3 % (10.0-14.5); WHITE BLOOD COUNT 8.9 10^3/uL (4.3-11.0)
[2016-12-07] MEDS: CATHETER FLUSH 10 ML SYR IV SCH ×3 (05:36→22:10)
[2016-12-07 05:41] LABS: ANION GAP 10 MMOL/L (5-14); BLOOD UREA NITROGEN 8 MG/DL (7-18); BUN/CREATININE RATIO 10; CALCIUM 8.4 MG/DL (8.5-10.1); CARBON DIOXIDE 22 MMOL/L (21-32); CHLORIDE 109 MMOL/L (98-107); CREATININE SERUM 0.77 MG/DL (0.60-1.30); GFR ESTIMATED > 60; GLUCOSE 103 MG/DL (70-105); POTASSIUM 3.6 MMOL/L (3.6-5.0); SODIUM 141 MMOL/L (135-145)
[2016-12-07 08:00] VITALS: BP 107/68
[2016-12-07] MEDS ORDERED: VANCOMYCIN INJECTION 0.1 MG in NS (IVPB) 250 ML IV SCH (08:15)
--- NOTE | 2016-12-07 08:16 | Consultation ---
History of Present Illness History of Present Illness Patient Consulted On(alexi/time) 12/07/16 08:10 Date Seen by Provider: Dec 07, 2016 Time Seen by Provider: 08:10 Reason for Visit: R elbow cellulitis History of Present Illness 46 yr old WF with severe R elbow pain that started two days ago [place]. She denies any trauma to the elbow and she denies any ETOH abuse at the time. she denies fevers or chills and she is hemodynamically sable. she has no obvious breaks in the skin. the pain is worse over a one centimeter raised area over the dorsal ulna, although she is tender diffusely. she has no other sites of pain. she has no history of similar episodes. she is agitated and threatening to leave AMA. she did get broad spectrum abx in the ER. Allergies and Home Medications Allergies Coded Allergies: Penicillins (Unverified Allergy, Mild, 07/02/16) dimenhydrinate (Verified Allergy, Mild, 07/17/12) morphine (Unverified Allergy, Mild, RASH, 08/29/08) prochlorperazine (Unverified Allergy, Mild, 07/23/09) oxycodone (Unverified Allergy, Unknown, 05/14/10) Uncoded Allergies: ANTI-EMETICS (Allergy, Mild, 03/26/08) ANTI-NAUSEA MEDICATIONS EXCEPT DRAMAMINE (Allergy, Mild, MAKE HER HAVE ANXIETY ATTACKS, 08/29/08) ANTIEMETICS (Allergy, Mild, 12/09/08) NAUSEA MEDS (Allergy, Mild, 12/01/08) Home Medications Albuterol Sulfate 6.7 Gm Hfa.aer.ad, 2 PUFF INH Q4H PRN for SHORTNESS OF BREATH, (Reported) Amlodipine Besylate 5 Mg Tablet, 5 MG PO DAILY, (Reported) Baclofen 20 Mg Tablet, 20 MG PO BID, (Reported) Cetirizine HCl 10 Mg Tablet, 10 MG PO DAILY PRN for ALLERGIES, (Reported) Clonazepam 0.5 Mg Tablet, 0.5 MG PO BID PRN for ANXIETY, (Reported) Clonidine HCl 0.1 Mg Tablet, 0.1 MG PO TID, (Reported) Hydrochlorothiazide 25 Mg Tablet, 25 MG PO DAILY PRN for SWELLING, (Reported) Hydrocodone/Acetaminophen 1 Each Tablet, 1 TAB PO TID PRN for PAIN, (Reported) Lovastatin 20 Mg Tablet, 20 MG PO DAILY, (Reported) Meloxicam 15 Mg Tablet, 15 MG PO DAILY, (Reported) Omeprazole 40 Mg Capsule.dr, 40 MG PO DAILY PRN for HEARTBURN, (Reported) Paroxetine HCl 40 Mg Tablet, 40 MG PO HS, (Reported) Past Yhufqim-Ekrmoo-Ywhfbc Hx Patient Social History Alcohol Use: Denies Use Recreational Drug Use: No Smoking Status: Current Everyday Smoker Type Used: Cigarettes 2nd Hand Smoke Exposure: No Recent Foreign Travel: No Contact w/Someone Who Travel: No Recent Infectious Disease Expo: No Recent Hopitalizations: No Physical Abuse Screen: No Sexual Abuse: No Immunizations Up To Date Tetanus Booster (TDap): Less than 5yrs Date of Pneumonia Vaccine: Jul 26, 2012 Date of Influenza Vaccine: Feb 13, 2014 Seasonal Allergies Seasonal Allergies: No Surgeries HX Surgeries: Yes (LUNG SURGERY FOR EMPYEMA, LEFT OVARIAN CYST REMOVAL; HYST/ BSO) Surgeries: Appendectomy, Section, Hysterectomy, Oophorectomy, Tonsillectomy Respiratory Hx Respiratory Disorders: Yes (EMPYEMA--S/P LUNG SURGERY FOR REMOVAL) Respiratory Disorders: Asthma Cardiovascular Hx Cardiac Disorders: Yes Cardiac Disorders: Hypertension Neurological Hx Neurological Disorders: No Reproductive System Hx Reproductive Disorders: Yes (MULTIPLE OVARIAN CYSTS. 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 Genitourinary Hx Genitourinary Disorders: No Gastrointestinal Hx Gastrointestinal Disorders: Yes Gastrointestinal Disorders: Gastroesophageal Reflux, Irritable Bowel Musculoskeletal Hx Musculoskeletal Disorders: Yes Musculoskeletal Disorders: Degenerate Disk Disease, Chronic Back Pain Endocrine Hx Endocrine Disorders: Yes (MORBID OBESTIY) HEENT HX ENT Disorders: Yes (WEARS GLASSES) Hearing Impairment: Denies Cancer Hx Cancer: No Psychosocial Hx Psychiatric Problems: Yes Behavioral Health Disorders: Sleep Difficulties, Anxiety, Depression Integumentary HX Skin/Integumentary Disorder: Yes (ABSCESSES, MULTIPLE WOUND INFECTIONS, STAPH) Blood Transfusions Hx Blood Disorders: No Family Medical History Family Medial History: Diabetes mellitus 19 MOTHER Headache disorder G8 SISTER Myocardial infarction 19 MOTHER STROKE 19 MOTHER Physical Exam-General Problems Physical Exam Vital Signs Vital Sign - Last 12Hours 12/06/16 12/06/16 12/06/16 18:10 22:27 22:40 Temp 98.8 Pulse 82 Resp 18 B/P (MAP) 141/86 Pulse Ox 93 O2 Delivery Room Air Capillary Refill : Less Than 3 Seconds Extremities: other (R elbow: full passive ROM, limited active ROM due to pain, warm to touch, erythematous, small one centimeter PMI over dorsal ulna, no apparent lacertation, no drainage, no subcutanous crackles with palpation appreciated, 2/4 radial/ulnar pulses, NVSI with BCR all digits) Assessment/Plan Assessment/Plan Admission Diagnosis/Plan ASSESSMENT: R elbow cellulitis PLAN: vanco/rocephin monitor for improvement MRI R elbow to r/o fluid collection pain control follow labs, ESR/CRP Clinical Quality Measures DVT/VTE Risk/Contraindication: Risk Factor Score Per Nursin RFS Level Per Nursing on Admit: 4+=Very High CHRISTEL KELLOGG DO Dec 07, 2016 08:15
[2016-12-07] MEDS: cefTRIAXone INJECTION 2,000 MG in NS (IVPB) 50 ML IV SCH (08:55)
[2016-12-07] MEDS: VANCOMYCIN 1250 MG/NS 250 ML IVPB IV SCH ×6 (09:40→22:10)
[2016-12-07] MEDS ORDERED: GABA600T2 PO (09:49)
[2016-12-07] MEDS ORDERED: TRAZ100T92 PO (09:49)
[2016-12-07] MEDS ORDERED: TIZA4TAB3 PO (09:49)
[2016-12-07] MEDS ORDERED: HYDR-3781 PO (09:49)
[2016-12-07] MEDS ORDERED: ASPI-789 PO (09:49)
[2016-12-07] MEDS ORDERED: NAPR500T4 PO (09:49)
[2016-12-07] MEDS ORDERED: PANTOPRAZOLE 40 MG (PROTONIX) TAB PO PRN (10:00)
[2016-12-07] MEDS ORDERED: NON-FORMULARY MEDICATION 1 EA EA (Aspirin/Acetaminophen/Caffeine (Excedrin Migraine Caplet PO PRN (10:00)
[2016-12-07] MEDS ORDERED: LORazepam INJ 2 MG/ML (ATIVAN) VIAL IVP ONE (10:30)
[2016-12-07] MEDS ORDERED: RT-ALBUTEROL SULF 2.5 MG/3 ML PRE-MIX VIAL IH PRN (10:30)
--- NOTE | 2016-12-07 10:33 | History & Physical-Hospitalist ---
HPI History of Present Illness: HPI/Chief Complaint CC: Right elbow cellulitis versus septic joint versus necrotizing fascitis HPI: This is a 46-year-old white female clinic patient a [facility] with a past medical history of seizure disorder and anxiety the presents to the emergency room with right elbow pain. She was assessed and workup included x-rays and labs revealing images consistent with gas in the tissue possible necrotizing fasciitis but she had a normal white count was afebrile and orthopedic surgery was consulted. She was assessed to have cellulitis versus septic joint so MRI be completed an empiric IV antibiotics will be maintained during the workup process. She is not forthcoming with details as she wants to get here as soon as possible because her insurance will not pay for this. Source: patient Exam Limitations: no limitations Date Seen 12/07/16 Time Seen by Provider: 09:45 Attending Physician Bridgette Howard DO PCP [facility] Referring Physician Date of Admission Dec 06, 2016 at 21:53 Home Medications & Allergies Home Medications Reviewed patient Home Medication Reconciliation Form Allergies Allergies Coded Allergies Penicillins (Unverified Allergy, Mild, 07/02/16) dimenhydrinate (Verified Allergy, Mild, 07/17/12) morphine (Unverified Allergy, Mild, RASH, 08/29/08) prochlorperazine (Unverified Allergy, Mild, 07/23/09) oxycodone (Unverified Allergy, Unknown, 05/14/10) Uncoded Allergies ANTI-EMETICS ( Allergy, Mild, 03/26/08) ANTI-NAUSEA MEDICATIONS EXCEPT DRAMAMINE ( Allergy, Mild, MAKE HER HAVE ANXIETY ATTACKS, 08/29/08) ANTIEMETICS ( Allergy, Mild, 12/09/08) NAUSEA MEDS ( Allergy, Mild, 12/01/08) Past [id number]-[id number]-[id number] Hx Patient Social History Marrital Status: single Employed/Student: unemployed Alcohol Use: Denies Use Recreational Drug Use: No Smoking Status: Current Everyday Smoker Type Used: Cigarettes 2nd Hand Smoke Exposure: No Physical Abuse Screen: No Sexual Abuse: No Recent Foreign Travel: No Contact w/other who traveled: No Recent Hopitalizations: No Recent Infectious Disease Expo: No Immunizations Up To Date Tetanus Booster (TDap): Less than 5yrs Date of Pneumonia Vaccine: Jul 26, 2012 Date of Influenza Vaccine: Feb 13, 2014 Seasonal Allergies Seasonal Allergies: No Surgeries HX Surgeries: Yes (LUNG SURGERY FOR EMPYEMA, LEFT OVARIAN CYST REMOVAL; HYST/ BSO) Surgeries: Appendectomy, Section, Hysterectomy, Oophorectomy, Tonsillectomy Respiratory Hx Respiratory Disorders: Yes (EMPYEMA--S/P LUNG SURGERY FOR REMOVAL) Respiratory Disorders: Pneumonia Cardiovascular Hx Cardiovascular Disorders: Yes Cardiac Disorders: Hypertension Neurological Hx Neurological Disorders: Yes Neurological Disorders: Seizure Disorder Reproductive System Hx Reproductive Disorders: Yes (MULTIPLE OVARIAN CYSTS. 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 Genitourinary Hx Genitourinary Disorders: No Gastrointestinal Hx Gastrointestinal Disorders: Yes Gastrointestinal Disorders: Gastroesophageal Reflux, Irritable Bowel Musculoskeletal Hx Musculoskeletal Disorders: Yes Musculoskeletal Disorders: Degenerate Disk Disease, Chronic Back Pain Endocrine Hx Endocrine Disorders: Yes (MORBID OBESTIY) HEENT HX ENT Disorders: Yes (WEARS GLASSES) Hearing Impairment: Denies Cancer Hx Cancer: No Psychosocial Hx Psychiatric Problems: Yes Behavioral Health Disorders: Sleep Difficulties, Anxiety, Depression Integumentary HX Skin/Integumentary Disorder: Yes (ABSCESSES, MULTIPLE WOUND INFECTIONS, STAPH) Blood Transfusions Hx Blood Disorders: No Family Medical History Family Hx: Diabetes mellitus 19 MOTHER Headache disorder G8 SISTER Myocardial infarction 19 MOTHER STROKE 19 MOTHER Review of Systems Constitutional: see HPI, fever EENTM: no symptoms reported Respiratory: no symptoms reported Cardiovascular: no symptoms reported Gastrointestinal: no symptoms reported Genitourinary: no symptoms reported Musculoskeletal: joint pain (right elbow) Skin: no symptoms reported Psychiatric/Neurological: No Symptoms Reported All Other Systems Reviewed Negative Unless Noted: Yes Physical Exam Physical Exam Vital Signs Vital Sign - Last 12Hours 12/06/16 12/06/16 12/06/16 18:10 22:27 22:40 Temp 98.8 Pulse 82 Resp 18 B/P (MAP) 141/86 Pulse Ox 93 O2 Delivery Room Air Capillary Refill : Less Than 3 Seconds General Appearance: No Apparent Distress, WD/WN Eyes: Bilateral Eye Normal Inspection, Bilateral Eye PERRL HEENT: PERRL/EOMI, Normal ENT Inspection, Pharynx Normal Neck: Full Range of Motion, Normal Inspection, Non Tender, Supple, Carotid Bruit Respiratory: Chest Non Tender, Lungs Clear, Normal Breath Sounds, No Accessory Muscle Use, No Respiratory Distress Cardiovascular: Regular Rate, Rhythm, No Edema, No Gallop, No JVD, No Murmur, Normal Peripheral Pulses Gastrointestinal: Normal Bowel Sounds, No Organomegaly, No Pulsatile Mass, Non Tender, Soft Back: Normal Inspection, No CVA Tenderness, No Vertebral Tenderness Extremity: Normal Capillary Refill, Normal Inspection, Normal Range of Motion ( right elbow w/mild erythema and ttp no fluctuance), Non Tender, No Calf Tenderness, No Pedal Edema Neurologic/Psychiatric: Alert, Oriented x3, No Motor/Sensory Deficits, Normal Mood/Affect Skin: Normal Color, Warm/Dry Lymphatic: No Adenopathy Results Results/Procedures Lab Laboratory Tests 12/06/16 20:05 12/07/16 04:36 Assessment/Plan Admission Diagnosis Assessment: Acute right elbow cellulitis versus septic arthritis versus necrotizing fasciitis Seizure disorder Anxiety Assessment and Plan Plan: IV antibiotics empirically Appreciate orthopedic surgery consultation Reconciled all home meds Ativan pre-op for MRI Evaluate MRIs and disposition as soon as possible since she is frightened of the hospital bill if insurance does not pay for this Clinical Quality Measures DVT/VTE Risk/Contraindication: Risk Factor Score Per Nursin RFS Level Per Nursing on Admit: 4+=Very High BRIDGETTE HOWARD DO Dec 07, 2016 10:33
[2016-12-07 12:00] VITALS: BP 131/81
[2016-12-07] MEDS: cloNIDine 0.1 MG (CATAPRES) TAB PO SCH ×2 (13:21→20:45)
--- NOTE | 2016-12-07 15:30 | Progress Note-Standard ---
Standard Progress Note Progress Notes/Assess & Plan Date Seen by Provider: Dec 07, 2016 Time Seen by Provider: 15:27 Progress/Assessment & Plan Patient not evaluated again but I did follow up on ESR/CRP, which are both only minimally elevated. Per nurse, patient is comfortable and seems to be clinically improving. she was unwilling to sit still for the MRI and it was aborted. I would like to observe her overnight and continue the abx to monitor for clinical improvement. A diagnosis of necretizing fasccitis is unlikely. Final Diagnosis R elbow cellulitis CHRISTEL KELLOGG DO Dec 07, 2016 15:30
[2016-12-07 15:40] VITALS: BP 131/78
[2016-12-07 20:00] VITALS: BP 127/74
[2016-12-07] MEDS: hydrOXYzine (VISTARIL) 25 MG CAP PO SCH (20:44)
[2016-12-07] MEDS: traZODone 100 MG (DESYREL) TAB PO SCH (20:44)
[2016-12-07] MEDS: GABAPENTIN 600 MG (NEURONTIN) TAB PO SCH (20:45)
[2016-12-07] MEDS: clonazePAM 0.5 MG (KlonoPIN) TAB PO SCH (20:45)
[2016-12-07] MEDS: PARoxetine 20 MG (PAXIL) TAB PO SCH (20:45)
[2016-12-08] VITALS: BP 136/78
[2016-12-08] MEDS: fentaNYL INJECTION 100 MCG/2 ML AMP IV PRN ×6 (02:08→18:35)
[2016-12-08 04:00] VITALS: BP 110/71
[2016-12-08] MEDS ORDERED: TROUGH ORDER-PHARMACY XX ONE (05:00)
[2016-12-08] MEDS: VANCOMYCIN 1250 MG/NS 250 ML IVPB IV SCH ×2 (06:06)
[2016-12-08] MEDS: CATHETER FLUSH 10 ML SYR IV SCH ×3 (06:06→22:30)
[2016-12-08 08:45] VITALS: BP 131/62
[2016-12-08] MEDS: cloNIDine 0.1 MG (CATAPRES) TAB PO SCH ×3 (08:53→21:37)
[2016-12-08] MEDS: LORATADINE (CLARITIN) 10 MG TAB PO SCH (08:53)
[2016-12-08] MEDS: GABAPENTIN 600 MG (NEURONTIN) TAB PO SCH ×2 (08:53→21:38)
[2016-12-08] MEDS: amLODIPine 5 MG (NORVASC) TAB PO SCH (08:53)
[2016-12-08] MEDS: clonazePAM 0.5 MG (KlonoPIN) TAB PO SCH ×2 (08:53→21:38)
[2016-12-08] MEDS: cefTRIAXone INJECTION 2,000 MG in NS (IVPB) 50 ML IV SCH (08:54)
[2016-12-08] MEDS: hydrOXYzine (VISTARIL) 25 MG CAP PO SCH ×2 (08:59→21:38)
--- NOTE | 2016-12-08 10:38 | Discharge Summary-Hospitalist ---
Diagnosis/Chief Complaint Date of Admission Dec 06, 2016 at 21:53 Date of Discharge Admission Diagnosis Assessment: Acute right elbow cellulitis versus septic arthritis versus necrotizing fasciitis Seizure disorder Anxiety Discharge Diagnosis Plan: IV antibiotics empirically Appreciate orthopedic surgery consultation Reconciled all home meds Ativan pre-op for MRI Evaluate MRIs and disposition as soon as possible since she is frightened of the hospital bill if insurance does not pay for this Reason Hospital Visit/Course CC: Right elbow cellulitis versus septic joint versus necrotizing fascitis HPI: This is a 46-year-old white female clinic patient a [facility] with a past medical history of seizure disorder and anxiety the presents to the emergency room with right elbow pain. She was assessed and workup included x-rays and labs revealing images consistent with gas in the tissue possible necrotizing fasciitis but she had a normal white count was afebrile and orthopedic surgery was consulted. She was assessed to have cellulitis versus septic joint so MRI be completed an empiric IV antibiotics will be maintained during the workup process. She is not forthcoming with details as she wants to get here as soon as possible because her insurance will not pay for this. Notes from 12/08/16 drawing operator: Dr. Andrew does not believe that the pt has necrotizing fasciitis, it is probably a stick joint Icing and compression dressing were tried last night. Pt doesn't tolerate it well Pt is on Rocephin Pt has a hx of medication abuse Patient Interview: Pt was informed that she could DC today on oral abx Pt confirms having pain meds every 2 hours and most of her pain is around right elbow Physical exam stable. Sitting up is labored Pt states that it would be easier for her to do ice/compression dressings at home Pt confirms seeing Mariel at [facility] Pt denies having pain meds at home I informed the pt that I will talk to the orthopedic surgeon prior to DC Pt asked if she still needed MRI. I informed her that I will need to talk to the surgeon first. Plan: Close follow up at [facility] Confer with Dr. Andrew prior to DC Ambulate Scribed by Marisela Cuellar under the direct supervision of Dr. Howard. Discharge Summary Discharge Physical Examination Allergies: Coded Allergies: Penicillins (Unverified Allergy, Mild, 07/02/16) dimenhydrinate (Verified Allergy, Mild, 07/17/12) morphine (Unverified Allergy, Mild, RASH, 08/29/08) prochlorperazine (Unverified Allergy, Mild, 07/23/09) oxycodone (Unverified Allergy, Unknown, 05/14/10) Uncoded Allergies: ANTI-EMETICS (Allergy, Mild, 03/26/08) ANTI-NAUSEA MEDICATIONS EXCEPT DRAMAMINE (Allergy, Mild, MAKE HER HAVE ANXIETY ATTACKS, 08/29/08) ANTIEMETICS (Allergy, Mild, 12/09/08) NAUSEA MEDS (Allergy, Mild, 12/01/08) Vitals & I&Os Vital Signs Date Time Temp Pulse Resp B/P (MAP) Pulse Ox O2 Delivery O2 Flow Rate FiO2 12/08/16 15:44 97.5 81 18 89/59 97 Room Air Hospital Course Labs (last 24 hrs) Laboratory Tests 12/08/16 05:00: White Blood Count 12.2H, Red Blood Count 4.50, Hemoglobin 10.2L, Hematocrit 35, Mean Corpuscular Volume 78L, Mean Corpuscular Hemoglobin 23L, Mean Corpuscular Hemoglobin Concent 29L, Red Cell Distribution Width 19.3H, Platelet Count 287, Mean Platelet Volume 12.4H, Neutrophils (%) (Auto) 65, Lymphocytes (%) (Auto) 21 , Monocytes (%) (Auto) 11, Eosinophils (%) (Auto) 2, Basophils (%) (Auto) 1, Neutrophils # (Auto) 7.9H, Lymphocytes # (Auto) 2.6, Monocytes # (Auto) 1.4H, Eosinophils # (Auto) 0.3, Basophils # (Auto) 0.1, Sodium Level 136, Potassium Level 3.5L, Chloride Level 103, Carbon Dioxide Level 27, Anion Gap 6, Blood Urea Nitrogen 6L, Creatinine 0.80, Estimat Glomerular Filtration Rate > 60, BUN/ Creatinine Ratio 8, Glucose Level 132H, Calcium Level 8.8, Total Bilirubin 0.3, Aspartate Amino Transf (AST/SGOT) 16, Alanine Aminotransferase (ALT/SGPT) 17, Alkaline Phosphatase 103, Total Protein 5.9L, Albumin 3.2, Vancomycin Level Trough 19.7 Microbiology 12/06/16 Blood Culture - Preliminary, Resulted No growth Pending Labs Discharge Home Medications: Active Scripts Active Bactrim Ds Tablet (Sulfamethoxazole/Trimethoprim) 1 Each Tablet 1 Each PO BID Cefdinir 300 Mg Capsule 300 Mg PO BID Hydrocodon-Acetaminophn 10-325 (Hydrocodone/Acetaminophen) 1 Each Tablet 1 Ea PO Q4H PRN Reported Excedrin Migraine Caplet (Aspirin/Acetaminophen/Caffeine) 1 Each Tablet 2 Tab PO DAILY PRN Gabapentin 600 Mg Tablet 600 Mg PO BID Tizanidine HCl 4 Mg Tablet 4 Mg PO TID Naproxen 500 Mg Tablet 500 Mg PO BID PRN Trazodone HCl 100 Mg Tablet 200 Mg PO HS TAKES 2 (100MG) TABLETS Hydroxyzine Pamoate 25 Mg Capsule 25 Mg PO BID Proventil Hfa (Albuterol Sulfate) 6.7 Gm Hfa.aer.ad 2 Puff INH Q4H PRN Omeprazole 40 Mg Capsule.dr 40 Mg PO DAILY PRN Cetirizine HCl 10 Mg Tablet 10 Mg PO DAILY Clonazepam 0.5 Mg Tablet 0.5 Mg PO BID Catapres (Clonidine HCl) 0.1 Mg Tablet 0.1 Mg PO TID Paroxetine HCl 40 Mg Tablet 40 Mg PO HS Norvasc (Amlodipine Besylate) 5 Mg Tablet 5 Mg PO DAILY Instructions to patient/family Please see electonic discharge instructions given to patient. Clinical Quality Measures DVT/VTE Risk/Contraindication: Risk Factor Score Per Nursin RFS Level Per Nursing on Admit: 4+=Very High LEWIS HOWARD DO Dec 08, 2016 10:38
[2016-12-08 11:07] LABS: BASOPHILS # (AUTO) 0.1 10^3/uL (0.0-0.1); BASOPHILS % (AUTO) 1 % (0-10); EOSINOPHILS # (AUTO) 0.3 10^3/uL (0.0-0.3); EOSINOPHILS % (AUTO) 2 % (0-10); LYMPHOCYTES # (AUTO) 2.6 X 10^3 (1.0-4.0); LYMPHOCYTES % (AUTO) 21 % (12-44); MEAN CORPUSCULAR HEMOGLOBIN 23 PG (25-34); MEAN CORPUSCULAR HGB CONC 29 G/DL (32-36); MEAN CORPUSCULAR VOLUME 78 FL (80-99); MEAN PLATELET VOLUME 12.4 FL (7.4-10.4); MONOCYTES # (AUTO) 1.4 X 10^3 (0.0-1.0); MONOCYTES % (AUTO) 11 % (0-12); NEUTROPHILS # (AUTO) 7.9 X 10^3 (1.8-7.8); NEUTROPHILS % (AUTO) 65 % (42-75); PLATELET COUNT 287 10^3/uL (130-400); RED CELL DISTRIBUTION WIDTH 19.3 % (10.0-14.5); WHITE BLOOD COUNT 12.2 10^3/uL (4.3-11.0)
[2016-12-08 11:19] LABS: ALANINE AMINOTRANSFERASE 17 U/L (0-55); ALBUMIN 3.2 GM/DL (3.2-4.5); ANION GAP 6 MMOL/L (5-14); ASPARTATE AMINO TRANSFERASE 16 U/L (5-34); BILIRUBIN,TOTAL 0.3 MG/DL (0.1-1.0); BLOOD UREA NITROGEN 6 MG/DL (7-18); BUN/CREATININE RATIO 8; CALCIUM 8.8 MG/DL (8.5-10.1); CARBON DIOXIDE 27 MMOL/L (21-32); CHLORIDE 103 MMOL/L (98-107); GFR ESTIMATED > 60; GLUCOSE 132 MG/DL (70-105); POTASSIUM 3.5 MMOL/L (3.6-5.0); SODIUM 136 MMOL/L (135-145); TOTAL PROTEIN 5.9 GM/DL (6.4-8.2)
[2016-12-08] MEDS ORDERED: NS 100 ML (IVPB) BAG IV ONE (11:45)
[2016-12-08] MEDS ORDERED: IOHEXOL 350 MG/ML 100 ML (OMNIPAQUE 350) VIAL IV ONE (11:45)
[2016-12-08 12:00] VITALS: BP 131/62
[2016-12-08] MEDS: HYDROcodone/APAP 10 MG/325 MG (LORTAB) TAB PO PRN ×3 (12:52→23:15)
[2016-12-08] MEDS ORDERED: CEFD300C3 PO (12:58)
[2016-12-08] MEDS ORDERED: HYDR-3820 PO (12:58)
[2016-12-08] MEDS ORDERED: SULF1TAB35 PO (12:58)
[2016-12-08] MEDS: VANCOMYCIN 1 GM/NS 250 ML IVPB IV SCH ×4 (14:32→22:30)
[2016-12-08 15:44] VITALS: BP 89/59
--- NOTE | 2016-12-08 15:52 | Diagnostic Imaging Report ---
PROCEDURE: CT right upper extremity with contrast. TECHNIQUE: Axial images were obtained through the right upper extremity after intravenous contrast and reformatted into coronal and sagittal oblique planes. INDICATION: Severe right arm pain. CONTRAST: 100 mL of Omnipaque 350 was administered intravenously. FINDINGS: There is subcutaneous air seen along the dorsal aspect of the forearm proximal aspect. The gas bubbles appear to be near the interface between the muscular layer and the deep subcutaneous fat. Unfortunately, anatomic evaluation in more detail is difficult on this exam due to significant beam hardening artifact secondary to the size of the patient and scanning the arm beside the patient's body. There is no obvious fluid collection; however, there is subcutaneous edema and swelling noted in the mid forearm. No definite evidence of intramuscular abscess. The osseous structures demonstrate no fracture or dislocation. No foreign body is seen. IMPRESSION: There is soft tissue swelling in the mid forearm and significant subcutaneous edema. In the dorsal proximal aspect of the forearm, there are gas bubbles near the interface between the subcutaneous fat and the muscular layer. This is concerning for gas-forming infection or the possibility of necrotizing fasciitis. Correlate clinically. The findings were discussed with Dr. Ivette Howard at the time of dictation. Dictated by: Dictated on workstation # [id number]
--- NOTE | 2016-12-08 16:34 | Progress Note-Hospitalist ---
Progress Note HPI/CC on Admission CC: Right elbow cellulitis versus septic joint versus necrotizing fascitis HPI: This is a 46-year-old white female clinic patient a [facility] with a past medical history of seizure disorder and anxiety the presents to the emergency room with right elbow pain. She was assessed and workup included x-rays and labs revealing images consistent with gas in the tissue possible necrotizing fasciitis but she had a normal white count was afebrile and orthopedic surgery was consulted. She was assessed to have cellulitis versus septic joint so MRI be completed an empiric IV antibiotics will be maintained during the workup process. She is not forthcoming with details as she wants to get here as soon as possible because her insurance will not pay for this. Notes from 12/08/16 director global development: Dr. Andrew does not believe that the pt has necrotizing fasciitis, it is probably a stick joint Icing and compression dressing were tried last night. Pt doesn't tolerate it well Pt is on Rocephin Pt has a hx of medication abuse Patient Interview: Pt was informed that she could DC today on oral abx Pt confirms having pain meds every 2 hours and most of her pain is around right elbow Physical exam stable. Sitting up is labored Pt states that it would be easier for her to do ice/compression dressings at home Pt confirms seeing Mariel at [facility] Pt denies having pain meds at home I informed the pt that I will talk to the orthopedic surgeon prior to DC Pt asked if she still needed MRI. I informed her that I will need to talk to the surgeon first. Plan: Close follow up at [facility] Confer with Dr. Andrew prior to DC Ambulate Scribed by Marisela Cuellar under the direct supervision of Dr. Howard. Progress Notes/Assess & Plan Date Seen 12/08/16 Time Seen by Provider: 10:00 Admission Dx/Process Assessment: Acute right elbow cellulitis versus septic arthritis versus necrotizing fasciitis Seizure disorder Anxiety Diagonsis/Assessment & Plan Notes from 12/08/16 director global development: Dr. Andrew does not believe that the pt has necrotizing fasciitis, it is probably a sick tissue Icing and compression dressing were tried last night. Pt doesn't tolerate it well Pt is on Rocephin Pt has a hx of medication abuse Patient Interview: Pt was informed that she could DC today on oral abx Pt confirms having pain meds every 2 hours and most of her pain is around right elbow Physical exam stable. Sitting up is labored Pt states that it would be easier for her to do ice/compression dressings at home Pt confirms seeing Mariel at [facility] Pt denies having pain meds at home I informed the pt that I will talk to the orthopedic surgeon prior to DC Pt asked if she still needed MRI. I informed her that I will need to talk to the surgeon first. TM 99, VSS, Pleasant flat affect RRR, CTAB Right elbow with edema and erythema and decreased ROM no fluctuance Laboratory Tests 12/08/16 05:00 Assessment: Acute right elbow cellulitis versus septic arthritis versus necrotizing fasciitis with gas on CT scan with IV contrast Seizure disorder Anxiety Smoker Low grade fever and Leukocytosis Plan: Conferred with Dr. Andrew and we have placed NPO and added Clindamycin to abx regimen for anaerobic coverage and will need surgical intervention Ambulate Scribed by Marisela Cuellar under the direct supervision of Dr. Howard. LEWIS HOWARD DO Dec 08, 2016 16:34
[2016-12-08] MEDS: CLINDAMYCIN INJECTION 600 MG in NS (IVPB) 50 ML IV SCH (16:50)
--- NOTE | 2016-12-08 18:37 | Progress Note (SOAP) ---
Subjective Date Seen by Provider: Dec 08, 2016 Time Seen by Provider: 18:31 Subjective/Events-last exam YEMI. Pain is increased and swelling has increased into the proximal forearm. she has had a low grade fever. she has been on vancomycin/rocephin/and clindamycin. Vitals and labs are stable. she was made NPO today. i have spoken with dr hoang about the case. CT does show some gas at along the fascia. Dr. Hoang has recommended an exploration of the soft tissue with tissue biopsy despite the lack of fluid collection. i have discussed this with the patient and she is agreeable. she denies numbness or tingling. she denies any other joint pain. Objective Exam Vital Signs Date Time Temp Pulse Resp B/P (MAP) Pulse Ox O2 Delivery O2 Flow Rate FiO2 12/08/16 15:44 97.5 81 18 89/59 97 Room Air 12/08/16 12:00 101.8 102 20 131/62 93 Room Air 12/08/16 08:45 99.3 102 20 131/62 Room Air 12/08/16 04:00 99.9 84 24 110/71 90 Room Air 12/08/16 00:00 99.3 92 22 136/78 94 Room Air 12/07/16 20:45 Room Air 12/07/16 20:00 99.5 89 20 127/74 93 Room Air I & O 12/08/16 07:00 Intake Total 3585.0 ml Output Total 1100 ml Balance 2485.0 ml Capillary Refill : Less Than 3 Seconds General Appearance: No Apparent Distress Extremity: Other (RUE: warmth and erythema present, significant soft tissue swelling extending into the proximal forearm, painful to light palpation circumfrentially along the elbow, 2/4 radial/ulnar pulses, skin is intact, forearm compartments soft) Results Lab Laboratory Tests 12/08/16 05:00: White Blood Count 12.2H, Red Blood Count 4.50, Hemoglobin 10.2L, Hematocrit 35, Mean Corpuscular Volume 78L, Mean Corpuscular Hemoglobin 23L, Mean Corpuscular Hemoglobin Concent 29L, Red Cell Distribution Width 19.3H, Platelet Count 287, Mean Platelet Volume 12.4H, Neutrophils (%) (Auto) 65, Lymphocytes (%) (Auto) 21 , Monocytes (%) (Auto) 11, Eosinophils (%) (Auto) 2, Basophils (%) (Auto) 1, Neutrophils # (Auto) 7.9H, Lymphocytes # (Auto) 2.6, Monocytes # (Auto) 1.4H, Eosinophils # (Auto) 0.3, Basophils # (Auto) 0.1, Sodium Level 136, Potassium Level 3.5L, Chloride Level 103, Carbon Dioxide Level 27, Anion Gap 6, Blood Urea Nitrogen 6L, Creatinine 0.80, Estimat Glomerular Filtration Rate > 60, BUN/ Creatinine Ratio 8, Glucose Level 132H, Calcium Level 8.8, Total Bilirubin 0.3, Aspartate Amino Transf (AST/SGOT) 16, Alanine Aminotransferase (ALT/SGPT) 17, Alkaline Phosphatase 103, Total Protein 5.9L, Albumin 3.2, Vancomycin Level Trough 19.7 Microbiology 12/06/16 Blood Culture - Preliminary, Resulted No growth Assessment/Plan Assessment/Plan Assess & Plan/Chief Complaint ASSESSMENT: R elbow cellulitis PLAN: to OR this evening for I&D and exploration of wound and culture acquisition vanco/rocephin/clindamycin: per ID monitor closely for improvement pain control follow labs, ESR/CRP Clinical Quality Measures DVT/VTE Risk/Contraindication: Risk Factor Score Per Nursin RFS Level Per Nursing on Admit: 4+=Very High CHRISTEL KELLOGG DO Dec 08, 2016 18:37
[2016-12-08] MEDS ORDERED: SEVOFLURANE (ULTANE) 15 ML INHAL SOLN ONE ×3 (19:55→21:33)
[2016-12-08] MEDS ORDERED: SUCCINYLCHOLINE INJ 100 MG/5 ML SYR ONE (19:55)
[2016-12-08] MEDS ORDERED: ONDANSETRON 4 MG/2 ML (SDV) Z0FRAN ONE (19:55)
[2016-12-08] MEDS ORDERED: LACTATED RINGERS 1,000 ML IV ONE (19:55)
[2016-12-08] MEDS ORDERED: proPOfol 200 MG/20 ML (DIPRIVAN) VIAL IV ONE (19:55)
[2016-12-08] MEDS ORDERED: LIDOCAINE PF 2% 5 ML (XYLOCAINE) VIAL ONE (19:55)
[2016-12-08] MEDS ORDERED: MIDAZOLAM 2 MG/2 ML (VERSED) VIAL ONE (19:56)
[2016-12-08] MEDS ORDERED: fentaNYL INJECTION 100 MCG/2 ML AMP ONE (19:56)
[2016-12-08] MEDS ORDERED: VANCOMYCIN 1000 MG/VIAL ONE (20:00)
[2016-12-08] MEDS: LACTATED RINGERS 1,000 ML IV SCH (20:47)
[2016-12-08] MEDS: traZODone 100 MG (DESYREL) TAB PO SCH (21:37)
[2016-12-08] MEDS: PARoxetine 20 MG (PAXIL) TAB PO SCH (21:38)
[2016-12-09] VITALS: BP 121/57
[2016-12-09] MEDS: CLINDAMYCIN INJECTION 600 MG in NS (IVPB) 50 ML IV SCH ×4 (00:55→23:49)
[2016-12-09] MEDS: fentaNYL INJECTION 100 MCG/2 ML AMP IV PRN ×4 (02:17→21:11)
[2016-12-09 04:40] VITALS: BP 134/72
[2016-12-09] MEDS: HYDROcodone/APAP 10 MG/325 MG (LORTAB) TAB PO PRN ×5 (04:41→23:50)
[2016-12-09] MEDS ORDERED: TROUGH ORDER-PHARMACY XX ONE (05:00)
--- NOTE | 2016-12-09 05:01 | Progress Note (SOAP) ---
Subjective Time Seen by Provider: 04:57 Subjective/Events-last exam POD #1 s/p right elbow abscess I&D Complains of pain at this time Review of Systems Gastrointestinal: No: Nausea Musculoskeletal: arm pain Neurological: No: Numbness, Weakness Objective Exam Vital Signs Date Time Temp Pulse Resp B/P (MAP) Pulse Ox O2 Delivery O2 Flow Rate FiO2 12/09/16 04:40 97.8 105 18 134/72 98 Room Air 12/09/16 00:05 96 Nasal Cannula 2.00 12/09/16 00:00 98.6 99 18 121/57 88 Room Air 12/08/16 20:30 Room Air 12/08/16 15:44 97.5 81 18 89/59 97 Room Air 12/08/16 12:00 101.8 102 20 131/62 93 Room Air 12/08/16 08:45 99.3 102 20 131/62 Room Air I & O 12/09/16 07:00 Intake Total 3070.5 ml Output Total 1200 ml Balance 1870.5 ml Capillary Refill : Less Than 3 Seconds General Appearance: No Apparent Distress Respiratory: No Respiratory Distress Cardiovascular: Normal Peripheral Pulses Peripheral Pulses: 2+ Radial Pulses (R) Extremity: Other (Swelling of right upper extremity. No ascending lymphadenitis. No crepitus. Ronnie wrap in place. RUE motor and sensation intact, NVI) Neurologic/Psychiatric: Alert, Oriented x3 Results Lab Laboratory Tests 12/08/16 05:00: White Blood Count 12.2H, Red Blood Count 4.50, Hemoglobin 10.2L, Hematocrit 35, Mean Corpuscular Volume 78L, Mean Corpuscular Hemoglobin 23L, Mean Corpuscular Hemoglobin Concent 29L, Red Cell Distribution Width 19.3H, Platelet Count 287, Mean Platelet Volume 12.4H, Neutrophils (%) (Auto) 65, Lymphocytes (%) (Auto) 21 , Monocytes (%) (Auto) 11, Eosinophils (%) (Auto) 2, Basophils (%) (Auto) 1, Neutrophils # (Auto) 7.9H, Lymphocytes # (Auto) 2.6, Monocytes # (Auto) 1.4H, Eosinophils # (Auto) 0.3, Basophils # (Auto) 0.1, Sodium Level 136, Potassium Level 3.5L, Chloride Level 103, Carbon Dioxide Level 27, Anion Gap 6, Blood Urea Nitrogen 6L, Creatinine 0.80, Estimat Glomerular Filtration Rate > 60, BUN/ Creatinine Ratio 8, Glucose Level 132H, Calcium Level 8.8, Total Bilirubin 0.3, Aspartate Amino Transf (AST/SGOT) 16, Alanine Aminotransferase (ALT/SGPT) 17, Alkaline Phosphatase 103, Total Protein 5.9L, Albumin 3.2, Vancomycin Level Trough 19.7 Microbiology 12/06/16 Blood Culture - Preliminary, Resulted No growth Assessment/Plan Assessment/Plan Assess & Plan/Chief Complaint Right elbow abscess S/P I&D Await surgical culture results Clinical Quality Measures DVT/VTE Risk/Contraindication: Risk Factor Score Per Nursin RFS Level Per Nursing on Admit: 4+=Very High TOMA YING Dec 09, 2016 05:01
[2016-12-09] MEDS: VANCOMYCIN 1 GM/NS 250 ML IVPB IV SCH ×6 (06:07→21:15)
[2016-12-09] MEDS: CATHETER FLUSH 10 ML SYR IV SCH ×3 (06:07→21:10)
[2016-12-09] MEDS: ONDANSETRON 4 MG/2 ML (SDV) Z0FRAN IV PRN ×3 (06:29→20:24)
[2016-12-09] MEDS: LACTATED RINGERS 1,000 ML IV SCH ×2 (06:46→17:39)
[2016-12-09 08:00] VITALS: BP 137/77
--- NOTE | 2016-12-09 08:25 | Anesthesia-General Post-Op ---
General Patient Condition Mental Status/LOC: Same as Preop Cardiovascular: Satisfactory Nausea/Vomiting: Absent Respiratory: Satisfactory Pain: Controlled Complications: Absent Post Op Complications Complications None Follow Up Care/Instructions Patient Instructions None needed. Anesthesia/Patient Condition Patient Condition Patient is doing well, no complaints, stable vital signs, no apparent adverse anesthesia problems. No complications reported per nursing. JESSE AL CRNA Dec 09, 2016 08:25
[2016-12-09] MEDS: NAPROXEN 250 MG (NAPROSYN) TABLET PO PRN ×2 (08:48→15:05)
[2016-12-09] MEDS: GABAPENTIN 600 MG (NEURONTIN) TAB PO SCH ×2 (08:48→20:24)
[2016-12-09] MEDS: LORATADINE (CLARITIN) 10 MG TAB PO SCH (08:48)
[2016-12-09] MEDS: cloNIDine 0.1 MG (CATAPRES) TAB PO SCH ×3 (08:49→20:26)
[2016-12-09] MEDS: amLODIPine 5 MG (NORVASC) TAB PO SCH (08:49)
[2016-12-09] MEDS: clonazePAM 0.5 MG (KlonoPIN) TAB PO SCH ×2 (08:49→20:25)
[2016-12-09] MEDS: hydrOXYzine (VISTARIL) 25 MG CAP PO SCH ×2 (08:49→20:25)
[2016-12-09] MEDS ORDERED: LOPERAMIDE 2 MG (IMODIUM) CAP PO PRN (10:00)
[2016-12-09] MEDS: cefTRIAXone INJECTION 2,000 MG in NS (IVPB) 50 ML IV SCH (10:05)
[2016-12-09 10:29] LABS: BASOPHILS # (AUTO) 0.1 10^3/uL (0.0-0.1); BASOPHILS % (AUTO) 1 % (0-10); EOSINOPHILS # (AUTO) 0.4 10^3/uL (0.0-0.3); EOSINOPHILS % (AUTO) 3 % (0-10); LYMPHOCYTES # (AUTO) 2.5 X 10^3 (1.0-4.0); LYMPHOCYTES % (AUTO) 20 % (12-44); MEAN CORPUSCULAR HEMOGLOBIN 23 PG (25-34); MEAN CORPUSCULAR HGB CONC 29 G/DL (32-36); MEAN CORPUSCULAR VOLUME 78 FL (80-99); MEAN PLATELET VOLUME 10.1 FL (7.4-10.4); MONOCYTES # (AUTO) 1.6 X 10^3 (0.0-1.0); MONOCYTES % (AUTO) 13 % (0-12); NEUTROPHILS % (AUTO) 63 % (42-75); PLATELET COUNT 286 10^3/uL (130-400); RED BLOOD COUNT 4.05 10^6/uL (4.35-5.85); RED CELL DISTRIBUTION WIDTH 18.7 % (10.0-14.5); WHITE BLOOD COUNT 12.7 10^3/uL (4.3-11.0)
--- NOTE | 2016-12-09 10:33 | Progress Note-Hospitalist ---
Progress Note HPI/CC on Admission CC: Right elbow cellulitis versus septic joint versus necrotizing fascitis HPI: This is a 46-year-old white female clinic patient a [facility] with a past medical history of seizure disorder and anxiety the presents to the emergency room with right elbow pain. She was assessed and workup included x-rays and labs revealing images consistent with gas in the tissue possible necrotizing fasciitis but she had a normal white count was afebrile and orthopedic surgery was consulted. She was assessed to have cellulitis versus septic joint so MRI be completed an empiric IV antibiotics will be maintained during the workup process. She is not forthcoming with details as she wants to get here as soon as possible because her insurance will not pay for this. Notes from 12/08/16 assistant distribution manager: Dr. Andrew does not believe that the pt has necrotizing fasciitis, it is probably a stick joint Icing and compression dressing were tried last night. Pt doesn't tolerate it well Pt is on Rocephin Pt has a hx of medication abuse Patient Interview: Pt was informed that she could DC today on oral abx Pt confirms having pain meds every 2 hours and most of her pain is around right elbow Physical exam stable. Sitting up is labored Pt states that it would be easier for her to do ice/compression dressings at home Pt confirms seeing Mariel at [facility] Pt denies having pain meds at home I informed the pt that I will talk to the orthopedic surgeon prior to DC Pt asked if she still needed MRI. I informed her that I will need to talk to the surgeon first. Plan: Close follow up at [facility] Confer with Dr. Andrew prior to DC Ambulate Scribed by Marisela Cuellar under the direct supervision of Dr. Howard. Progress Notes/Assess & Plan Date Seen 12/09/16 Time Seen by Provider: 09:45 Admission Dx/Process Assessment: Acute right elbow cellulitis versus septic arthritis versus necrotizing fasciitis Seizure disorder Anxiety Diagonsis/Assessment & Plan assistant distribution manager: Surgery yesterday was quick, in and out Pt is on three abx until cultures come back Pt is cooperating today, much better than yesterday Pt is doing well on Fentanyl even though she may not like it since we decreased the dose and frequency Patient Interview: Pt looks much better today and would like to DC, but I informed her that I need the results of the tests back before that. At the latest, she could get out on Tuesday. Pt is worried that she will not be able to order picker her daughter on 12/14. I informed her that gas means there could be an infection and indicates that she would be better off being monitored for a few more days. She may just need to go home on abx pills because she stayed an appropriate amount of time. Physical exam stable Pt has not had a BM. Pt is okay with BM meds, but is worried about having diarrhea due to having 'explosive' BMs the last few weeks TM 101.8 yesterday afternoon VSS, Pleasant flat affect, improved RRR, CTAB Right elbow with dressing intact Laboratory Tests 12/09/16 10:20 Assessment: Acute right elbow cellulitis with gas on CT scan with IV contrast s/p I&D with cultures obtained Seizure disorder Anxiety Smoker Low grade fever and Leukocytosis improved today Plan: Appreciate Dr. Andrew's surgical assistance but maintained Rocephin and Vanc including the added Clindamycin to abx regimen until cultures completed from yesterday Ambulate Prune juice then anti-diarrheal if needed Continue abx and pain meds Scribed by Marisela Cuellar under the direct supervision of Dr. Howard. LEWIS HOWARD DO Dec 09, 2016 10:33
[2016-12-09 10:57] LABS: ALANINE AMINOTRANSFERASE 15 U/L (0-55); ANION GAP 11 MMOL/L (5-14); ASPARTATE AMINO TRANSFERASE 15 U/L (5-34); BILIRUBIN,TOTAL 0.5 MG/DL (0.1-1.0); BLOOD UREA NITROGEN 6 MG/DL (7-18); BUN/CREATININE RATIO 8; CALCIUM 8.3 MG/DL (8.5-10.1); CARBON DIOXIDE 22 MMOL/L (21-32); CHLORIDE 104 MMOL/L (98-107); CREATININE SERUM 0.74 MG/DL (0.60-1.30); GFR ESTIMATED > 60; GLUCOSE 128 MG/DL (70-105); POTASSIUM 3.5 MMOL/L (3.6-5.0); SODIUM 137 MMOL/L (135-145); TOTAL PROTEIN 5.8 GM/DL (6.4-8.2)
[2016-12-09 11:01] LABS: ERYTHROCYTE SEDIMENTATION RATE 38 MM/HR (0-20)
[2016-12-09 12:00] VITALS: BP 136/77
[2016-12-09 16:21] VITALS: BP 99/58
[2016-12-09] MEDS: LACTOBACILLUS Acidoph/Bulgar (LACTINEX/FLORANEX) TAB PO SCH (18:24)
[2016-12-09 20:00] VITALS: BP 93/61
[2016-12-09] MEDS: traZODone 100 MG (DESYREL) TAB PO SCH (20:25)
[2016-12-09] MEDS: PARoxetine 20 MG (PAXIL) TAB PO SCH (20:25)
[2016-12-10] VITALS: BP 107/58
[2016-12-10] MEDS: HYDROcodone/APAP 10 MG/325 MG (LORTAB) TAB PO PRN ×4 (05:54→19:53)
[2016-12-10] MEDS: LACTOBACILLUS Acidoph/Bulgar (LACTINEX/FLORANEX) TAB PO SCH ×3 (05:54→15:38)
[2016-12-10] MEDS: VANCOMYCIN 1 GM/NS 250 ML IVPB IV SCH ×6 (05:54→21:12)
[2016-12-10] MEDS: CATHETER FLUSH 10 ML SYR IV SCH ×3 (05:55→21:11)
[2016-12-10 06:39] LABS: BASOPHILS % (AUTO) 1 % (0-10); EOSINOPHILS # (AUTO) 0.5 10^3/uL (0.0-0.3); EOSINOPHILS % (AUTO) 7 % (0-10); LYMPHOCYTES # (AUTO) 1.3 X 10^3 (1.0-4.0); LYMPHOCYTES % (AUTO) 17 % (12-44); MEAN CORPUSCULAR HEMOGLOBIN 23 PG (25-34); MEAN CORPUSCULAR HGB CONC 29 G/DL (32-36); MEAN CORPUSCULAR VOLUME 78 FL (80-99); MEAN PLATELET VOLUME 9.9 FL (7.4-10.4); MONOCYTES # (AUTO) 1.1 X 10^3 (0.0-1.0); MONOCYTES % (AUTO) 15 % (0-12); NEUTROPHILS # (AUTO) 4.6 X 10^3 (1.8-7.8); NEUTROPHILS % (AUTO) 61 % (42-75); PLATELET COUNT 291 10^3/uL (130-400); RED BLOOD COUNT 4.41 10^6/uL (4.35-5.85); RED CELL DISTRIBUTION WIDTH 19.3 % (10.0-14.5); WHITE BLOOD COUNT 7.6 10^3/uL (4.3-11.0)
[2016-12-10 06:40] LABS: BASOPHILS # (AUTO) 0.1 10^3/uL (0.0-0.1)
[2016-12-10] MEDS: fentaNYL INJECTION 100 MCG/2 ML AMP IV PRN ×2 (06:49→21:09)
--- NOTE | 2016-12-10 06:50 | Progress Note (SOAP) ---
Subjective Date Seen by Provider: Dec 10, 2016 Time Seen by Provider: 06:47 Subjective/Events-last exam YEMI. Awake and seemingly comfortable. Vitals stable. Per patient, pain is unchanged and she now has pain and swelling into the R hand. Denies fevers, numbness or tingling. Denies any other site of pain. Objective Exam Vital Signs Date Time Temp Pulse Resp B/P (MAP) Pulse Ox O2 Delivery O2 Flow Rate FiO2 12/10/16 00:00 95.8 63 14 107/58 95 Nasal Cannula 2.00 12/09/16 20:00 96.1 72 20 93/61 91 Room Air 12/09/16 16:21 96.4 72 16 99/58 90 Room Air 12/09/16 12:00 97.2 86 20 136/77 93 Room Air 12/09/16 08:00 97.5 89 16 137/77 99 Room Air I & O 12/10/16 07:00 Intake Total 2080 ml Output Total 2200 ml Balance -120 ml Capillary Refill : Less Than 3 Seconds General Appearance: No Apparent Distress Extremity: Other (RUE: PAIGE compression wrap in place, R hand swelling, erythema into distal arm, BCR all digits) Results Lab Laboratory Tests 12/09/16 10:20: White Blood Count 12.7H, Red Blood Count 4.05L, Hemoglobin 9.2L, Hematocrit 32L , Mean Corpuscular Volume 78L, Mean Corpuscular Hemoglobin 23L, Mean Corpuscular Hemoglobin Concent 29L, Red Cell Distribution Width 18.7H, Platelet Count 286, Mean Platelet Volume 10.1, Neutrophils (%) (Auto) 63, Lymphocytes (% ) (Auto) 20, Monocytes (%) (Auto) 13H, Eosinophils (%) (Auto) 3, Basophils (%) ( Auto) 1, Neutrophils # (Auto) 8.0H, Lymphocytes # (Auto) 2.5, Monocytes # (Auto ) 1.6H, Eosinophils # (Auto) 0.4H, Basophils # (Auto) 0.1, Erythrocyte Sedimentation Rate 38H, Sodium Level 137, Potassium Level 3.5L, Chloride Level 104, Carbon Dioxide Level 22, Anion Gap 11, Blood Urea Nitrogen 6L, Creatinine 0.74, Estimat Glomerular Filtration Rate > 60, BUN/Creatinine Ratio 8, Glucose Level 128H, Calcium Level 8.3L, Total Bilirubin 0.5, Aspartate Amino Transf (AST /SGOT) 15, Alanine Aminotransferase (ALT/SGPT) 15, Alkaline Phosphatase 103, C- Reactive Protein High Sensitivity 9.80H, Total Protein 5.8L, Albumin 3.0L 12/09/16 23:48: Glucometer 141H 12/10/16 06:33: White Blood Count 7.6, Red Blood Count 4.41, Hemoglobin 10.0L, Hematocrit 35, Mean Corpuscular Volume 78L, Mean Corpuscular Hemoglobin 23L, Mean Corpuscular Hemoglobin Concent 29L, Red Cell Distribution Width 19.3H, Platelet Count 291, Mean Platelet Volume 9.9, Neutrophils (%) (Auto) 61, Lymphocytes (%) (Auto) 17, Monocytes (%) (Auto) 15H, Eosinophils (%) (Auto) 7, Basophils (%) (Auto) 1, Neutrophils # (Auto) 4.6, Lymphocytes # (Auto) 1.3, Monocytes # (Auto) 1.1H, Eosinophils # (Auto) 0.5H, Basophils # (Auto) 0.1 Microbiology 12/06/16 Blood Culture - Preliminary, Resulted No growth 12/08/16 Gram Stain - Final, Resulted 12/08/16 Anaerobic Culture, Resulted Pending 12/08/16 Surgical Culture - Preliminary, Resulted Probable E.coli Probable Enterococcus Species Assessment/Plan Assessment/Plan Assess & Plan/Chief Complaint ASSESSMENT: R elbow cellulitis PLAN: culture indicates e coli as source of infection will d/w ID abx choice monitor closely for improvement pain control follow labs, ESR/CRP Clinical Quality Measures DVT/VTE Risk/Contraindication: Risk Factor Score Per Nursin RFS Level Per Nursing on Admit: 4+=Very High CHRISTEL KELLOGG DO Dec 10, 2016 06:50
[2016-12-10] MEDS: ONDANSETRON 4 MG/2 ML (SDV) Z0FRAN IV PRN ×3 (06:55→19:55)
[2016-12-10 06:57] LABS: ALANINE AMINOTRANSFERASE 16 U/L (0-55); ANION GAP 8 MMOL/L (5-14); ASPARTATE AMINO TRANSFERASE 17 U/L (5-34); BILIRUBIN,TOTAL 0.4 MG/DL (0.1-1.0); BLOOD UREA NITROGEN 8 MG/DL (7-18); BUN/CREATININE RATIO 11; CALCIUM 8.4 MG/DL (8.5-10.1); CARBON DIOXIDE 27 MMOL/L (21-32); CHLORIDE 106 MMOL/L (98-107); CREATININE SERUM 0.72 MG/DL (0.60-1.30); GFR ESTIMATED > 60; GLUCOSE 113 MG/DL (70-105); POTASSIUM 3.5 MMOL/L (3.6-5.0); SODIUM 141 MMOL/L (135-145)
[2016-12-10 07:53] VITALS: BP 142/65
[2016-12-10] MEDS: LORATADINE (CLARITIN) 10 MG TAB PO SCH (08:13)
[2016-12-10] MEDS: amLODIPine 5 MG (NORVASC) TAB PO SCH (08:13)
[2016-12-10] MEDS: hydrOXYzine (VISTARIL) 25 MG CAP PO SCH ×2 (08:13→21:10)
[2016-12-10] MEDS: cloNIDine 0.1 MG (CATAPRES) TAB PO SCH ×3 (08:13→21:11)
[2016-12-10] MEDS: GABAPENTIN 600 MG (NEURONTIN) TAB PO SCH ×2 (08:13→21:10)
[2016-12-10] MEDS: clonazePAM 0.5 MG (KlonoPIN) TAB PO SCH ×2 (08:13→21:10)
[2016-12-10] MEDS: CLINDAMYCIN INJECTION 600 MG in NS (IVPB) 50 ML IV SCH ×2 (08:14→15:37)
[2016-12-10] MEDS: cefTRIAXone INJECTION 2,000 MG in NS (IVPB) 50 ML IV SCH (08:51)
--- NOTE | 2016-12-10 09:20 | Progress Note-Hospitalist ---
Progress Note HPI/CC on Admission CC: Right elbow cellulitis versus septic joint versus necrotizing fascitis HPI: This is a 46-year-old white female clinic patient a [facility] with a past medical history of seizure disorder and anxiety the presents to the emergency room with right elbow pain. She was assessed and workup included x-rays and labs revealing images consistent with gas in the tissue possible necrotizing fasciitis but she had a normal white count was afebrile and orthopedic surgery was consulted. She was assessed to have cellulitis versus septic joint so MRI be completed an empiric IV antibiotics will be maintained during the workup process. She is not forthcoming with details as she wants to get here as soon as possible because her insurance will not pay for this. Notes from 12/08/16 industrial safety and health technician: Dr. Andrew does not believe that the pt has necrotizing fasciitis, it is probably a stick joint Icing and compression dressing were tried last night. Pt doesn't tolerate it well Pt is on Rocephin Pt has a hx of medication abuse Patient Interview: Pt was informed that she could DC today on oral abx Pt confirms having pain meds every 2 hours and most of her pain is around right elbow Physical exam stable. Sitting up is labored Pt states that it would be easier for her to do ice/compression dressings at home Pt confirms seeing Mariel at [facility] Pt denies having pain meds at home I informed the pt that I will talk to the orthopedic surgeon prior to DC Pt asked if she still needed MRI. I informed her that I will need to talk to the surgeon first. Plan: Close follow up at [facility] Confer with Dr. Andrew prior to DC Ambulate Scribed by Marisela Cuellar under the direct supervision of Dr. Howard. Progress Notes/Assess & Plan Date Seen 12/10/16 Time Seen by Provider: 09:00 Admission Dx/Process Assessment: Acute right elbow cellulitis versus septic arthritis versus necrotizing fasciitis Seizure disorder Anxiety Diagonsis/Assessment & Plan Pt now reports right hand pain and swelling but likely this is due to edema from upstream in elbow region from infection and surgery now in the hand Will check xray to be sure there is no gas in that tissue and considering wbc count is nl and no fever I will then consult OT for hand exercises considering she is not moving the hand at all. Still going downstairs every 30 minutes to smoke Has vaginal yeast infection and requesting Diflucan Has had infection in her right hand before so this is a recurrent issue Reviewed Cx and noted Dr Andrew will confer with ID about abx selection TM 99.5 isolated, VSS, Pleasant flat affect, improved RRR, CTAB Right elbow with dressing intact Right hand edema and decreased ROM due to edema Laboratory Tests 12/09/16 10:20 12/10/16 06:33 Assessment: Acute right elbow cellulitis with gas on CT scan with IV contrast s/p I&D with cultures obtained and e coli and enterococcus noted Right hand edema and pain checking xray for gas production Seizure disorder Anxiety Smoker Low grade fever and Leukocytosis improved today Hypokalemia Vaginal yeast infection Plan: Appreciate Dr. Andrew's surgical assistance but maintained Rocephin and Vanc including the added Clindamycin to abx regimen until he confers with ID as planned in his note Ambulate Manuel Continue abx and pain meds Very difficult to manage since she smokes so much going downstairs and the fact that this issue is a very complex soft tissue infection with h/o of similar episode in the past LEWIS HOWARD DO Dec 10, 2016 09:19
[2016-12-10] MEDS ORDERED: KCL 20 MEQ TAB (K-DUR) PO NR (09:30)
[2016-12-10] MEDS: fluCOnazole (DIFLUCAN) 100 MG TAB PO SCH (10:31)
--- NOTE | 2016-12-10 10:51 | Diagnostic Imaging Report ---
Three views of the right hand. INDICATION: Right hand pain. FINDINGS: There is no fracture, dislocation or radiopaque foreign body. Joint alignment is satisfactory. There is a no significant arthritic changes seen. IMPRESSION: Unremarkable exam. Dictated by: Dictated on workstation # [id number]
[2016-12-10] MEDS: LEVOFLOXACIN 750 MG/150 ML IV 150 ML IV SCH (11:14)
[2016-12-10 16:00] VITALS: BP 120/72
--- NOTE | 2016-12-10 16:58 | Occupational Therapy Eval ---
OT Evaluation-General/PLF Medical Diagnosis Admission Date Dec 09, 2016 at 09:07 Medical Diagnosis: cellulitis R elbow Onset Date: Dec 06, 2016 Therapy Diagnosis Therapy Diagnosis: edema, decr functional use R UE Height/Weight Height (Feet): 5 Height (Inches): 6.00 Weight (Pounds): 275 Weight (Ounces): 0.0 Precautions Precautions/Isolations: Standard Precautions Safety Interventions: Reorient-PRN Referral Physician: Anita Referral Reason: Evaluation/Treatment Medical History Pertinent Medical History: GERD, HTN, Smoking (current) Additional Medical History Lung surgery - empyema, asthma, IBS, DJD, chronic back apin, morbid obesity, sleep difficulties, anxiety, depression, seizure disorder Current History Admitted with three week history of swelling in R elbow. I and D on 12-08, with cultures. Developed severe edema of R hand and inability to use arm Reviewed History: Yes Social History Home: Apartment Current Living Status: Alone Entry Into Home: Level Entry ADL-Prior Level of Function ADL PLOF Comments Pt reported that she has been able to care for herself. 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 Unknown OT Current Status Subjective Pt seen in nasreen, up in bed, agreeable to OT. pain not rated but pt had very little tolerance to touching her R arm. Appearance Alert, cooperative Current Glasses/Contacts: Yes Hearing Aids: No Dentures/Partials: No Hand Dominance: Left Upper Extremity ROM Almost no active range in R hand due to significant dorsal and volar edema. Little active elbow range due to pain and suleman wrap/dressings Upper Extremity Coordination Significantly impaired R UE Upper Extremity Strength Not tested Edema: Significant edema R hand and also some above elbow dressing R UE ADL-Treatment Functional [place] Measure 0=Not Assessed/NA 4=Minimal Assistance 1=Total Assistance 5=Supervision or Setup 2=Maximal Assistance 6=Modified [place] 3=Moderate Assistance 7=Complete IndependenceIRFPAI Quality Coding Scale 6 Independent with activity with or without an assistive device 5 Patient requires set up or clean up by helper. Patient completes activity by themselves 4 Supervision or touching assist (CGA). Gary provide cues , steadying assist 3 The helper provides less than half the effort to complete the activity 2 The helper provides more than half the effort to complete the activity 1 Dependent. The helper does all the effort to complete an activity 7 Patient refused to complete or attempt activity 9 The patient did not perform the activity before the current illness or injury 88 Not attempted due to Medical conditions or safety concerns Other Treatments Pt education 4 step approach to decreasing edema - elevation, compression, movement and massage. Pt was fitted with isotoner glove and Tubigrip compression dressing from palm to elbow, then suleman wrap over forearm to above elbow. R UE elevated on three pillows, with pt educ to keep arm at the level of her heart or above. Pt was able to initiate gross grasp of her R hand and also to minimally squeeze yellow foam block (gentle resistance). Before compression was applied, pt education on gentle retrograde self massage of R hand. Return demo. Pt also instructed to continue massage over compression garments, with return demo. Pt instruction that she can discontinue using these devices when her edema is gone. $ steps written on white board in her room and shared with her nurse. pt also encouraged to use R hand as much as she can for self care and other activities. Pt left up in bed, all needs met. Education OT Patient Education: Home exercise program, Modified ADL techniques, Purpose of tx/functional activities, Reviewed precautions, Use of adapted equipment Teaching Recipient: Patient Teaching Methods: Demonstration, Discussion Response to Teaching: Verbalize Understanding, Return Demonstration, Reinforcement Needed OT Short Term Goals Short Term Goals 1=Demonstrate adherence to instructed precautions during ADL tasks. 2=Patient will verbalize/demonstrate understanding of assistive devices/ modifications for ADL. 3=Patient will improve strength/tolerance for activity to enable patient to perform ADL's. OT Mcc Goals Mcc Goals Time Frame: Dec 17, 2016 Pt will have decreased edema in R UE to allow her to manage her basic ADLs 1=Demonstrate adherence to instructed precautions during ADL tasks. 2=Patient will verbalize/demonstrate understanding of assistive devices/ modifications for ADL. 3=Patient will improve strength/tolerance for activity to enable patient to perform ADL's. OT Education/Plan Problem List/Assessment Assessment: Edema, Restricted Funct UE ROM Pt would benefit from skilled OT to decrease edema in R UE and increase functional use of UE, to allow her to safely return home to care for herself Discharge Recommendations Plan/Recommendations: Continue POC Therapy D/C Recommendations: Occupational Therapy Outpatient (if needed) Treatment Plan/Plan of Care Treatment,Training & Education: Yes Patient would benefit from OT for education, treatment and training to promote independence in ADL's, mobility, safety and/or upper extremity function for ADL' s. Plan of Care: OTHER (edema management) Treatment Duration: Dec 17, 2016 Frequency: Daily ([id number] times a week) Estimated Hrs Per Day: .5 hour per day Agreement: Yes Rehab Potential: Good Time/GCodes Start Time: 11:15 Stop Time: 12:05 Total Time Billed (hr/min): 50 Billed Treatment Time visit, 10 minutes evaluation low intensity, 40 minutes ADL JEANA RAI OT Dec 10, 2016 16:58
--- NOTE | 2016-12-10 17:16 | Occ Therapy Progress Note ---
Therapy Progress Note 1330 to 1335 Checked on patient and she was pleased to show how her edema was going down. R UE was elevated on pillows. She could touch her thumb to her index and middle fingers and was able to work to touch her ring finger. Pt encouraged to continue to follow the 4 steps to decrease her edema. JEANA RAI OT Dec 10, 2016 17:16
[2016-12-10] MEDS: PARoxetine 20 MG (PAXIL) TAB PO SCH (21:10)
[2016-12-10] MEDS: traZODone 100 MG (DESYREL) TAB PO SCH (21:11)
[2016-12-11] VITALS: BP 145/70
[2016-12-11] MEDS: CLINDAMYCIN INJECTION 600 MG in NS (IVPB) 50 ML IV SCH ×3 (00:08→15:38)
[2016-12-11] MEDS: HYDROcodone/APAP 10 MG/325 MG (LORTAB) TAB PO PRN ×4 (00:09→19:43)
[2016-12-11] MEDS: NAPROXEN 250 MG (NAPROSYN) TABLET PO PRN ×3 (02:08→23:58)
[2016-12-11] MEDS: LACTOBACILLUS Acidoph/Bulgar (LACTINEX/FLORANEX) TAB PO SCH ×3 (05:38→15:36)
[2016-12-11] MEDS: CATHETER FLUSH 10 ML SYR IV SCH ×3 (05:38→21:05)
[2016-12-11] MEDS: VANCOMYCIN 1 GM/NS 250 ML IVPB IV SCH ×6 (05:40→21:49)
[2016-12-11 05:42] LABS: BASOPHILS # (AUTO) 0.1 10^3/uL (0.0-0.1); BASOPHILS % (AUTO) 1 % (0-10); EOSINOPHILS # (AUTO) 0.5 10^3/uL (0.0-0.3); EOSINOPHILS % (AUTO) 6 % (0-10); LYMPHOCYTES # (AUTO) 1.7 X 10^3 (1.0-4.0); LYMPHOCYTES % (AUTO) 22 % (12-44); MEAN CORPUSCULAR HEMOGLOBIN 22 PG (25-34); MEAN CORPUSCULAR HGB CONC 29 G/DL (32-36); MEAN CORPUSCULAR VOLUME 77 FL (80-99); MEAN PLATELET VOLUME 10.6 FL (7.4-10.4); MONOCYTES # (AUTO) 1.1 X 10^3 (0.0-1.0); MONOCYTES % (AUTO) 15 % (0-12); NEUTROPHILS # (AUTO) 4.3 X 10^3 (1.8-7.8); NEUTROPHILS % (AUTO) 57 % (42-75); PLATELET COUNT 309 10^3/uL (130-400); RED BLOOD COUNT 4.33 10^6/uL (4.35-5.85); RED CELL DISTRIBUTION WIDTH 19.3 % (10.0-14.5); WHITE BLOOD COUNT 7.6 10^3/uL (4.3-11.0)
[2016-12-11 05:59] LABS: ALANINE AMINOTRANSFERASE 16 U/L (0-55); ANION GAP 12 MMOL/L (5-14); ASPARTATE AMINO TRANSFERASE 15 U/L (5-34); BILIRUBIN,TOTAL 0.2 MG/DL (0.1-1.0); BLOOD UREA NITROGEN 7 MG/DL (7-18); BUN/CREATININE RATIO 10; CALCIUM 8.6 MG/DL (8.5-10.1); CARBON DIOXIDE 21 MMOL/L (21-32); CHLORIDE 108 MMOL/L (98-107); CREATININE SERUM 0.71 MG/DL (0.60-1.30); GFR ESTIMATED > 60; GLUCOSE 93 MG/DL (70-105); POTASSIUM 3.8 MMOL/L (3.6-5.0); SODIUM 141 MMOL/L (135-145); TOTAL PROTEIN 6.1 GM/DL (6.4-8.2)
[2016-12-11 08:00] VITALS: BP 109/71
[2016-12-11] MEDS: GABAPENTIN 600 MG (NEURONTIN) TAB PO SCH ×2 (08:11→21:05)
[2016-12-11] MEDS: clonazePAM 0.5 MG (KlonoPIN) TAB PO SCH ×2 (08:11→21:04)
[2016-12-11] MEDS: cloNIDine 0.1 MG (CATAPRES) TAB PO SCH ×3 (08:11→21:05)
[2016-12-11] MEDS: amLODIPine 5 MG (NORVASC) TAB PO SCH (08:11)
[2016-12-11] MEDS: fluCOnazole (DIFLUCAN) 100 MG TAB PO SCH (08:11)
[2016-12-11] MEDS: LORATADINE (CLARITIN) 10 MG TAB PO SCH (08:11)
[2016-12-11] MEDS: fentaNYL INJECTION 100 MCG/2 ML AMP IV PRN ×3 (08:16→21:05)
[2016-12-11] MEDS: hydrOXYzine (VISTARIL) 25 MG CAP PO SCH ×2 (08:16→21:04)
--- NOTE | 2016-12-11 08:28 | Progress Note (SOAP) ---
Subjective Subjective/Events-last exam Patient voices no major concerns today. She would like to go home soon. She still is undergoing occupational therapy. She does report she is having some pain off and on is still requiring hydrocodone. Review of Systems Date Seen by Provider: Dec 11, 2016 Time Seen by Provider: 08:10 Objective Exam Last Set of Vital Signs Vital Signs Date Time Temp Pulse Resp B/P (MAP) Pulse Ox O2 Delivery O2 Flow Rate FiO2 12/11/16 00:00 96.6 83 18 145/70 91 Room Air 12/10/16 00:00 2.00 Capillary Refill : Less Than 3 Seconds I&O Intake and Output 12/11/16 00:00 Intake Total 3542 ml Balance 3542 ml Intake Oral 2888 ml IV Total 654 ml # Voids 15 # Bowel Movements 1 General: No Acute Distress Neck: Supple Lungs: Clear to Auscultation Heart: Regular Rate Extremities: Other (Mild swelling noted of the right upper extremity. The dressing was removed and [place] is in place. There still appears to be some drainage. She is able to wiggle fingers without pain.) Results/Procedures Lab Laboratory Tests 12/11/16 05:26: White Blood Count 7.6, Red Blood Count 4.33L, Hemoglobin 9.6L, Hematocrit 34L, Mean Corpuscular Volume 77L, Mean Corpuscular Hemoglobin 22L, Mean Corpuscular Hemoglobin Concent 29L, Red Cell Distribution Width 19.3H, Platelet Count 309, Mean Platelet Volume 10.6H, Neutrophils (%) (Auto) 57, Lymphocytes (%) (Auto) 22 , Monocytes (%) (Auto) 15H, Eosinophils (%) (Auto) 6, Basophils (%) (Auto) 1, Neutrophils # (Auto) 4.3, Lymphocytes # (Auto) 1.7, Monocytes # (Auto) 1.1H, Eosinophils # (Auto) 0.5H, Basophils # (Auto) 0.1, Sodium Level 141, Potassium Level 3.8, Chloride Level 108H, Carbon Dioxide Level 21, Anion Gap 12, Blood Urea Nitrogen 7, Creatinine 0.71, Estimat Glomerular Filtration Rate > 60, BUN/ Creatinine Ratio 10, Glucose Level 93, Calcium Level 8.6, Total Bilirubin 0.2, Aspartate Amino Transf (AST/SGOT) 15, Alanine Aminotransferase (ALT/SGPT) 16, Alkaline Phosphatase 181H, Total Protein 6.1L, Albumin 3.0L Microbiology 12/06/16 Blood Culture - Preliminary, Resulted No growth 12/08/16 MRSA Screen - Final, Complete MRSA not isolated 12/08/16 Gram Stain - Final, Resulted 12/08/16 Anaerobic Culture - Preliminary, Resulted Prob Anaerobic Gram Neg Bruce 12/08/16 Surgical Culture - Preliminary, Resulted Escherichia Coli Gram Negative Bruce Enterococcus Species See Comments Assessment/Plan Assessment/Plan Admission Dx 1. Cellulitis of left elbow and forearm 2. Seizure disorder--stable 3. Anxiety disorder --stable Plan 1. Cellulitis of the right elbow -Patient currently on clindamycin, levofloxacin, ceftriaxone and vancomycin -The culture results indicate that she had most likely a Bacteroides fragilis, Escherichia coli and enterococcus. -Based upon the sensitivities the clindamycin could be discontinued to narrow her therapy. -Orthopedics also on case and managing her surgery site 2. Seizure disorder stable 3. Anxiety disorder Diagnosis/Problems: Clinical Quality Measures DVT/VTE Risk/Contraindication: Risk Factor Score Per Nursin RFS Level Per Nursing on Admit: 4+=Very High STEPHANIE ARROYO MD Dec 11, 2016 08:28
[2016-12-11] MEDS: cefTRIAXone INJECTION 2,000 MG in NS (IVPB) 50 ML IV SCH (08:44)
--- NOTE | 2016-12-11 08:55 | Occ Therapy Progress Note ---
Therapy Progress Note [id number] Completed follow up visit with pt. Pt in bed with right UE elevated on pillows. Pt states she thinks the swelling has gone down some. Pt is able to make a fist and extend fingers. Pt is also able to touch thumb to index, middle , and ring fingers. Able to initiate movement to touch thumb to small finger, but unable to complete at this time. Pt is able to state four steps to decrease edema. Pt states she has been following the four steps and has been completing gentle hand ROM. Pt states she hopes to go home soon. Has no questions or concerns at this time. Pt in bed with needs met and RN present in room after session. 1, visit LAKIA ZAMAN OT Dec 11, 2016 08:55
[2016-12-11] MEDS: LEVOFLOXACIN 750 MG/150 ML IV 150 ML IV SCH (09:19)
[2016-12-11 16:00] VITALS: BP 120/71
[2016-12-11] MEDS: traZODone 100 MG (DESYREL) TAB PO SCH (21:04)
[2016-12-11] MEDS: PARoxetine 20 MG (PAXIL) TAB PO SCH (21:04)
[2016-12-11] MEDS: ONDANSETRON 4 MG/2 ML (SDV) Z0FRAN IV PRN (22:44)
[2016-12-12] VITALS: BP 106/67
[2016-12-12] MEDS: HYDROcodone/APAP 10 MG/325 MG (LORTAB) TAB PO PRN ×2 (00:59→08:28)
[2016-12-12] MEDS: fentaNYL INJECTION 100 MCG/2 ML AMP IV PRN (04:42)
[2016-12-12] MEDS: CATHETER FLUSH 10 ML SYR IV SCH (05:39)
[2016-12-12] MEDS: LACTOBACILLUS Acidoph/Bulgar (LACTINEX/FLORANEX) TAB PO SCH (05:39)
[2016-12-12] MEDS: VANCOMYCIN 1 GM/NS 250 ML IVPB IV SCH ×2 (05:40)
[2016-12-12] MEDS: CLINDAMYCIN INJECTION 600 MG in NS (IVPB) 50 ML IV SCH ×3 (07:51)
[2016-12-12 08:00] VITALS: BP_SYST 111; BP_SYST 130; BP_DIAS 65; BP_DIAS 77
[2016-12-12] MEDS: GABAPENTIN 600 MG (NEURONTIN) TAB PO SCH (08:15)
[2016-12-12] MEDS: hydrOXYzine (VISTARIL) 25 MG CAP PO SCH (08:15)
[2016-12-12] MEDS: LORATADINE (CLARITIN) 10 MG TAB PO SCH (08:15)
[2016-12-12] MEDS: fluCOnazole (DIFLUCAN) 100 MG TAB PO SCH (08:16)
[2016-12-12] MEDS: amLODIPine 5 MG (NORVASC) TAB PO SCH (08:16)
[2016-12-12] MEDS: cloNIDine 0.1 MG (CATAPRES) TAB PO SCH (08:16)
[2016-12-12] MEDS: clonazePAM 0.5 MG (KlonoPIN) TAB PO SCH (08:16)
[2016-12-12] MEDS: cefTRIAXone INJECTION 2,000 MG in NS (IVPB) 50 ML IV SCH (08:21)
--- NOTE | 2016-12-12 08:47 | Progress Note (SOAP) ---
Subjective Subjective/Events-last exam Patient reports no new complaints. She continues to still have her right forearm wrapped. Yesterday drainage was noted minimal. Review of Systems Date Seen by Provider: Dec 12, 2016 Time Seen by Provider: 08:30 Objective Exam Last Set of Vital Signs Vital Signs Date Time Temp Pulse Resp B/P (MAP) Pulse Ox O2 Delivery O2 Flow Rate FiO2 12/12/16 08:00 98.7 89 20 130/77 98 Room Air 12/10/16 00:00 2.00 Capillary Refill : Less Than 3 Seconds I&O Intake and Output 12/12/16 00:00 Intake Total 3296 ml Balance 3296 ml Intake Oral 2492 ml IV Total 804 ml # Voids 12 General: No Acute Distress Lungs: Clear to Auscultation Heart: Regular Rate Extremities: Other (The dressing was not removed today as it was visualized yesterday.) Results/Procedures Lab Microbiology 12/06/16 Blood Culture - Preliminary, Resulted No growth 12/08/16 MRSA Screen - Final, Complete MRSA not isolated 12/08/16 Gram Stain - Final, Resulted 12/08/16 Anaerobic Culture - Preliminary, Resulted Bacteroides Fragilis Group 12/08/16 Surgical Culture - Preliminary, Resulted Escherichia Coli Enterobacter Cloacae Enterococcus Faecium See Comments Assessment/Plan Assessment/Plan Admission Dx 1. Cellulitis of left elbow and forearm 2. Seizure disorder--stable 3. Anxiety disorder --stable Plan 1. Cellulitis of the right elbow -Patient currently on clindamycin, levofloxacin, ceftriaxone and vancomycin -The culture results indicate that she had most likely a Bacteroides fragilis, Escherichia coli and enterococcus. -Based upon the sensitivities the clindamycin could be discontinued to narrow her therapy. -Orthopedics also on case and managing her surgery site 12/12 continue to narrow antibiotic therapy. -Final culture results revealed B fragilis, Escherichia coli as well as Enterobacter are all covered by Levaquin. The Enterobacter is covered by vancomycin. To narrow therapy the Rocephin and clindamycin were discontinued today. 2. Seizure disorder stable 3. Anxiety disorder Diagnosis/Problems: Clinical Quality Measures DVT/VTE Risk/Contraindication: Risk Factor Score Per Nursin RFS Level Per Nursing on Admit: 4+=Very High STEPHANIE ARROYO MD Dec 12, 2016 08:47
[2016-12-12] MEDS: LEVOFLOXACIN 750 MG/150 ML IV 150 ML IV SCH (08:49)
[2016-12-12] MEDS ORDERED: LEVO750T9 PO (09:34)
[2016-12-12] MEDS ORDERED: HYDR-3820 PO (09:34)
[2016-12-12] MEDS ORDERED: [UNRECOGNIZED DRUG - CODE] PO (09:34)
--- NOTE | 2016-12-12 09:49 | Discharge Summary ---
Diagnosis/Chief Complaint Date of Admission Dec 09, 2016 at 09:07 Date of Discharge 12-12-16 Admission Diagnosis Admission Diagnosis cellulitis left elbow Discharge Diagnosis same Reason Hospital Visit left elbow pain/cellulitis Discharge Summary Hospital Course Hospital Course Cande was admitted to the hospital for cellulits left elbow possibley necrotizing fasciitis. She was treated with broad spectrum antibotics and her elbow was Irrigated and debrided, cultures and sensitivities obtained and antibiotics narrowed. With broad spectrum coverage she clinically improved and her WBC returned to 7. Labs Laboratory Tests 12/09/16 10:20: White Blood Count 12.7H, Red Blood Count 4.05L, Hemoglobin 9.2L, Hematocrit 32L , Mean Corpuscular Volume 78L, Mean Corpuscular Hemoglobin 23L, Mean Corpuscular Hemoglobin Concent 29L, Red Cell Distribution Width 18.7H, Monocytes (%) (Auto) 13H, Neutrophils # (Auto) 8.0H, Monocytes # (Auto) 1.6H, Eosinophils # (Auto) 0.4H, Erythrocyte Sedimentation Rate 38H, Potassium Level 3.5L, Blood Urea Nitrogen 6L, Glucose Level 128H, Calcium Level 8.3L, C- Reactive Protein High Sensitivity 9.80H, Total Protein 5.8L, Albumin 3.0L 12/09/16 23:48: Glucometer 141H 12/10/16 06:33: Hemoglobin 10.0L, Mean Corpuscular Volume 78L, Mean Corpuscular Hemoglobin 23L, Mean Corpuscular Hemoglobin Concent 29L, Red Cell Distribution Width 19.3H, Monocytes (%) (Auto) 15H, Monocytes # (Auto) 1.1H, Eosinophils # (Auto) 0.5H, Erythrocyte Sedimentation Rate 57H, Potassium Level 3.5L, Glucose Level 113H, Calcium Level 8.4L, C-Reactive Protein High Sensitivity 10.84H, Total Protein 6.0L, Albumin 3.0L, Alkaline Phosphatase 149H 12/11/16 05:26: Red Blood Count 4.33L, Hemoglobin 9.6L, Hematocrit 34L, Mean Corpuscular Volume 77L, Mean Corpuscular Hemoglobin 22L, Mean Corpuscular Hemoglobin Concent 29L, Red Cell Distribution Width 19.3H, Monocytes (%) (Auto) 15H, Monocytes # (Auto) 1.1H, Eosinophils # (Auto) 0.5H, Total Protein 6.1L, Albumin 3.0L, Alkaline Phosphatase 181H, Mean Platelet Volume 10.6H, Chloride Level 108H Procedures None. Discharge Physical Examination Allergies: Coded Allergies: Penicillins (Unverified Allergy, Mild, 07/02/16) dimenhydrinate (Verified Allergy, Mild, 07/17/12) morphine (Unverified Allergy, Mild, RASH, 08/29/08) prochlorperazine (Unverified Allergy, Mild, 07/23/09) oxycodone (Unverified Allergy, Unknown, 05/14/10) Uncoded Allergies: ANTI-EMETICS (Allergy, Mild, 03/26/08) ANTI-NAUSEA MEDICATIONS EXCEPT DRAMAMINE (Allergy, Mild, MAKE HER HAVE ANXIETY ATTACKS, 08/29/08) ANTIEMETICS (Allergy, Mild, 12/09/08) NAUSEA MEDS (Allergy, Mild, 12/01/08) Vitals & I&Os Vital Signs Date Time Temp Pulse Resp B/P (MAP) Pulse Ox O2 Delivery O2 Flow Rate FiO2 12/12/16 08:00 98.7 89 20 130/77 98 Room Air 12/10/16 00:00 2.00 General Appearance: Alert, Oriented X3 Cardiovascular: Regular Rate Extremities: Other (left arm somewhat swollen and tender, incision covered, drain in place) Skin: No Rashes, No Breakdown Neuro: Normal Gait, Normal Speech Discussion & Recommendations I spoke with Dr Miles and have reviwed labs, cultures, and sensitives and he is agreeable to her discharge on oral antibiotics. Patient has clinically improved and will be dismissed with oral levaquin and erythromycin. She has been counseled on these medications erythromycin will replace vancomycin due to availability and cost to patient. her drain is in place. She will make appt with PCP SUZANNE and will call our office to make follow up appt she is to keep incision covered clean and dry She is to seek emergent medical care for increased swelling fever chills or drainage Discharge Home Medications Reviewed and agree with Discharge Medication list on patient's Discharge Instruction sheet Condition at Discharge stable Instructions to Patient/Family Please see electonic discharge instructions given to patient. Clinical Quality Measures DVT/VTE Risk/Contraindication: Risk Factor Score Per Nursin RFS Level Per Nursing on Admit: 4+=Very High JERROD RICE 30, 2017 09:49
[2016-12-12 11:00] VITALS: BP 130/77
--- NOTE | 2016-12-15 09:20 | OPERATIVE REPORT ---
DATE OF SERVICE: DATE OF PROCEDURE: 12/08/2016 SURGEON: Elio Andrew DO KILN TRANSFER OPERATOR; BOBBY High This is a medically necessary procedure. An health education assistant is necessary for retraction of vital neurovascular structures. Without an health education assistant, the procedure would not be possible. PREOPERATIVE DIAGNOSES: Right elbow and arm, soft tissue infection. POSTOPERATIVE DIAGNOSES: Right elbow and arm, soft tissue infection. PROCEDURE PERFORMED: Irrigation and debridement of right proximal ulna. COMPLICATIONS: None. SPECIMENS: Aerobic, anaerobic, fungal, AFB culture swabs as well as tissue specimen for tissue pathology. DRAIN PLACED: A Sofie. ANESTHESIA: General endotracheal. HISTORY OF PRESENT ILLNESS: The patient is a very pleasant 46-year-old female who presented 3 days ago with right elbow pain after she went swimming. She denies alcohol use, IV drug abuse, any kind of trauma and she is unsure what started this, however, she began to develop increasing pain with restricted range of motion and she was admitted to Dr. Howard's service with orthopedics consulted to rule out cellulitis versus necrotizing fasciitis versus septic arthritis. The patient was unwilling to sit still long enough for an MRI and a CT scan and x-ray did demonstrate air along the fascial boundary. I did consult with Dr. Jones over the telephone who did not see the patient, but after I reported the case to her, including the labs, she recommended that I do an irrigation and debridement and obtain a tissue sample. She did not recommend going into the joint because her ESR and CRP were not elevated. OPERATION: The patient was identified by name on wrist band in the preoperative hold area. The operative site was signed, consent was signed, SCDs were placed. Antibiotics were held. She was taken to the operating room, placed in general endotracheal anesthesia in the supine position with the arms abducted to ____ degrees. She was prepped and draped in the usual sterile fashion. No tourniquet was used. I did make an approximately 5 cm incision over the proximal dorsal ulna which was where the gas was located on the CT scan. This was also the area of the most pain, according to the patient. I tissue and as I approached the layer of the fascia, I did encounter aminata pus approximately 2 mL. There was not a lot of it and I was able to get cultures and I did take a tissue sample to send to the lab for pathology. I irrigated copiously with 3 liters of antibiotic enhanced irrigation and I did search for any other small areas of purulence. I did find 1 other, so there were a total of 2 small areas of purulent fluid collection. When I was finished, I placed 1 g of vancomycin powder throughout the wound and I closed the wound in my usual layered fashion utilizing 0 Vicryl. Please note that I placed a 1/4 inch Sofie drain deep within the wound and closed around it. I used eusebio to hold the skin edges together due to the tension of this particular wounds. I placed 4 x 4s, ABD and an Ronnie wrap with light compression. I took the patient in a supine position to the PACU where she awoke without incident. She tolerated the procedure well. PLAN: At this time, is to continue IV antibiotics as directed and recommended by Dr. Jones. This included vancomycin, Rocephin and clindamycin. I will follow the results of the biopsy and the culture, we will tailor the antibiotics accordingly and monitor her for clinical response. I will follow her ESR and CRP, inflammatory labs and her white blood cell count. Repeat I and D is not excluded at this point. Job ID: [id number] DocumentID: [id number] Dictated Date: 12/09/2016 13:52:45 Reinsurance Claim Analyst Date: 12/14/2016 13:06:01 Dictated By: ELIO ANDREW DO
== END 2016-12-12 11:00 | disposition home or self-care (01) | DRG 603 ==
LOC: EDUNIT# 17:12 → ER 17:14 → UNDOADMOB 21:53 → 4TH 21:53 → OBSVTOIN 12-09 09:07 → INTOOBSV 12-09 09:07
PROVIDERS: ADMIT Internal Medicine; ATTEND Internal Medicine
PROC: 0JBD0ZX Excision of Right Upper Arm Subcutaneous Tissue and Fascia, Open Approach, Diagnostic (ICD-10-PCS; 2016-12-08)
PROC: 0J9D00Z Drainage of Right Upper Arm Subcutaneous Tissue and Fascia with Drainage Device, Open Approach (ICD-10-PCS; principal; 2016-12-08 20:47)
DX: L03.113 Cellulitis of right upper limb (principal); G40.909 Epilepsy, unspecified, not intractable, without status epilepticus; F41.9 Anxiety disorder, unspecified; I10 Essential (primary) hypertension; K21.9 Gastro-esophageal reflux disease without esophagitis; E66.01 Morbid (severe) obesity due to excess calories; Z68.41 Body mass index [BMI] 40.0-44.9, adult; B37.3 Candidiasis of vulva and vagina; E87.6 Hypokalemia; F17.210 Nicotine dependence, cigarettes, uncomplicated
CPT/HCPCS: 36415; 71010; 73080; 73090; 73130; 73201; 80048; 80053; 80202; 80306; 81000; 82550; 82962; 83605; 83735; 85025; 85610; 85652; 85730; 86141; 87040; 87070; 87075; 87077; 87081; 87116; 87186; 87205; 96361; 96365; 96372; 96375; G0378

== ENCOUNTER 2017-01-24 18:59 | Inpatient (IN) | payer MEDICAID ==
[~2017-01-24] VITALS: Ht 167.6 cm; Wt 116.7 kg
[~2017-01-24 18:59] MED LIST changes: -ASPI-789 PO; +ASPI1TAB22 PO; +HYDR-3781 PO; +HYDR-3820 PO; +LEVO750T9 PO; -NAPR-1070 PO; +NAPR500T3 PO; -NAPR500T4 PO; +NAPR550T PO; +TIZA4TAB3 PO; +TRAZ100T92 PO; +[UNRECOGNIZED DRUG - CODE] PO
[2017-01-24] MEDS ORDERED: NS IV 1000 ML 1,000 ML IV ONE (19:34)
[2017-01-24] MEDS ORDERED: KETOROLAC 30 MG/ML VIAL IVP ONE (19:45)
[2017-01-24] MEDS ORDERED: ONDANSETRON 4 MG/2 ML (SDV) Z0FRAN IVP ONE (19:45)
[2017-01-24] MEDS ORDERED: CLINDAMYCIN INJECTION 900 MG in NS (IVPB) 50 ML IV ONE (19:45)
[2017-01-24] MEDS ORDERED: fentaNYL INJECTION 100 MCG/2 ML AMP IVP ONE ×2 (19:45→21:45)
[2017-01-24] MEDS ORDERED: LEVOFLOXACIN 750 MG/150 ML IV 150 ML IV ONE (20:00)
[2017-01-24 20:08] LABS: BASOPHILS # (AUTO) 0.1 10^3/uL (0.0-0.1); BASOPHILS % (AUTO) 1 % (0-10); EOSINOPHILS # (AUTO) 0.2 10^3/uL (0.0-0.3); EOSINOPHILS % (AUTO) 2 % (0-10); LYMPHOCYTES # (AUTO) 2.2 X 10^3 (1.0-4.0); LYMPHOCYTES % (AUTO) 18 % (12-44); MEAN CORPUSCULAR HEMOGLOBIN 22 PG (25-34); MEAN CORPUSCULAR HGB CONC 30 G/DL (32-36); MEAN CORPUSCULAR VOLUME 73 FL (80-99); MEAN PLATELET VOLUME 10.5 FL (7.4-10.4); MONOCYTES # (AUTO) 1.3 X 10^3 (0.0-1.0); MONOCYTES % (AUTO) 11 % (0-12); NEUTROPHILS # (AUTO) 8.6 X 10^3 (1.8-7.8); NEUTROPHILS % (AUTO) 69 % (42-75); PLATELET COUNT 328 10^3/uL (130-400); WHITE BLOOD COUNT 12.4 10^3/uL (4.3-11.0)
[2017-01-24 20:18] LABS: PROTHROMBIN TIME PATIENT 13.7 SEC (12.2-14.7)
[2017-01-24 20:26] LABS: ALANINE AMINOTRANSFERASE 18 U/L (0-55); ALBUMIN 3.5 GM/DL (3.2-4.5); ANION GAP 9 MMOL/L (5-14); ASPARTATE AMINO TRANSFERASE 18 U/L (5-34); BILIRUBIN,TOTAL 0.5 MG/DL (0.1-1.0); BLOOD UREA NITROGEN 10 MG/DL (7-18); BUN/CREATININE RATIO 12; CALCIUM 9.2 MG/DL (8.5-10.1); CARBON DIOXIDE 24 MMOL/L (21-32); CHLORIDE 102 MMOL/L (98-107); CREATININE SERUM 0.83 MG/DL (0.60-1.30); GFR ESTIMATED > 60; GLUCOSE 97 MG/DL (70-105); POTASSIUM 4.2 MMOL/L (3.6-5.0); SODIUM 135 MMOL/L (135-145); TOTAL PROTEIN 7.1 GM/DL (6.4-8.2)
[2017-01-24] MEDS ORDERED: NS 100 ML (IVPB) BAG IV ONE (20:45)
[2017-01-24] MEDS ORDERED: IOHEXOL 350 MG/ML 100 ML (OMNIPAQUE 350) VIAL IV ONE (20:45)
--- NOTE | 2017-01-24 21:29 | ED General ---
General Chief Complaint: Skin/Wound Problems Stated Complaint: R ARM POSS INFECTION Nursing Triage Note: C/O infection around laceration repair site since yesterday Nursing Sepsis Screen: No Definite Risk Source of Information: Patient, Old Records Exam Limitations: No Limitations History of Present Illness Time Seen by Provider: 19:27 Initial Comments This patient presents with a severely edematous, erythematous, and tender right upper extremity. She has been having problems with these issues since early December. She has had recurrent episodes of cellulitis and tenosynovitis of the right upper extremity requiring multiple surgeries. Her last surgery was performed by Dr. Andrew on December 09 and involved irrigation and debridement of the right ulna. Symptoms have now become severe. Patient has systemic symptoms including nausea, lightheadedness, and anxious feeling. She reports temperature of 102 at home. She is afebrile at present. She reports being on Cipro previously and is currently on Bactrim. Culture sensitivities from her prior surgery were reviewed. She had polymicrobial growth. Allergies and Home Medications Allergies Coded Allergies: Penicillins (Unverified Allergy, Mild, 07/02/16) dimenhydrinate (Verified Allergy, Mild, 07/17/12) morphine (Unverified Allergy, Mild, RASH, 08/29/08) prochlorperazine (Unverified Allergy, Mild, 07/23/09) oxycodone (Unverified Allergy, Unknown, 05/14/10) Uncoded Allergies: ANTI-EMETICS (Allergy, Mild, 03/26/08) ANTI-NAUSEA MEDICATIONS EXCEPT DRAMAMINE (Allergy, Mild, MAKE HER HAVE ANXIETY ATTACKS, 08/29/08) ANTIEMETICS (Allergy, Mild, 12/09/08) NAUSEA MEDS (Allergy, Mild, 12/01/08) Home Medications Albuterol Sulfate 6.7 Gm Hfa.aer.ad, 2 PUFF INH Q4H PRN for SHORTNESS OF BREATH, (Reported) Amlodipine Besylate 5 Mg Tablet, 5 MG PO DAILY, (Reported) Aspirin/Acetaminophen/Caffeine 1 Each Tablet, 2 TAB PO DAILY PRN for MIGRAINE, ( Reported) Cetirizine HCl 10 Mg Tablet, 10 MG PO DAILY, (Reported) Clonazepam 0.5 Mg Tablet, 0.5 MG PO BID, (Reported) Clonidine HCl 0.1 Mg Tablet, 0.1 MG PO TID, (Reported) Erythromycin Base 500 Mg Tablet.dr, 500 MG PO Q6H, #28 Ref 0 Prescribed by: JERROD RICE on 12/12/1634 Gabapentin 600 Mg Tablet, 600 MG PO BID, (Reported) Hydrocodone/Acetaminophen 1 Each Tablet, 1 EA PO Q4H PRN for PAIN-MODERATE, #60 Prescribed by: JERROD RICE on 12/12/1634 Hydroxyzine Pamoate 25 Mg Capsule, 25 MG PO BID, (Reported) Levofloxacin 750 Mg Tablet, 750 MG PO DAILY, #7 Ref 0 Prescribed by: JERROD RICE on 12/12/1634 Naproxen 500 Mg Tablet, 500 MG PO BID PRN for PAIN-MILD, (Reported) Omeprazole 40 Mg Capsule.dr, 40 MG PO DAILY PRN for HEARTBURN, (Reported) Paroxetine HCl 40 Mg Tablet, 40 MG PO HS, (Reported) Tizanidine HCl 4 Mg Tablet, 4 MG PO TID, (Reported) Trazodone HCl 100 Mg Tablet, 200 MG PO HS, (Reported) TAKES 2 (100MG) TABLETS Constitutional: see HPI EENTM: no symptoms reported Respiratory: no symptoms reported Cardiovascular: see HPI Gastrointestinal: see HPI Genitourinary: no symptoms reported : No Musculoskeletal: see HPI Skin: see HPI Psychiatric/Neurological: No Symptoms Reported Hematologic/Lymphatic: No Symptoms Reported Immunological/Allergic: no symptoms reported Past Qsyrzcg-Vsjujo-Htdeyh Hx Patient Social History Alcohol Use: Denies Use Recreational Drug Use: No Type Used: Cigarettes 2nd Hand Smoke Exposure: No Recent Foreign Travel: No Contact w/Someone Who Travel: No Recent Infectious Disease Expo: No Recent Hopitalizations: No Physical Abuse: No Sexual Abuse: No Immunizations Up To Date Tetanus Booster (TDap): Less than 5yrs Date of Pneumonia Vaccine: Jul 26, 2012 Date of Influenza Vaccine: Feb 13, 2014 Seasonal Allergies Seasonal Allergies: No Surgeries History of Surgeries: Yes (LUNG SURGERY FOR EMPYEMA, LEFT OVARIAN CYST REMOVAL ; HYST/BSO) Surgeries: Appendectomy, Section, Hysterectomy, Oophorectomy ( multiple surgeries for debridement of right upper extremity), Tonsillectomy Respiratory History of Respiratory Disorde: Yes (EMPYEMA--S/P LUNG SURGERY FOR REMOVAL) Respiratory Disorders: Asthma Currently Using CPAP: No Currently Using BIPAP: No Cardiovascular History of Cardiac Disorders: Yes Cardiac Disorders: Hypertension Neurological History of Neurological Disord: Yes Neurological Disorders: Seizure Disorder Reproductive System Hx Reproductive Disorders: Yes (MULTIPLE OVARIAN CYSTS. 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 Genitourinary History of Genitourinary Disor: No Gastrointestinal History of Gastrointestinal Di: Yes Gastrointestinal Disorders: Gastroesophageal Reflux, Irritable Bowel Musculoskeletal History of Musculoskeletal Dis: Yes Musculoskeletal Disorders: Degenerate Disk Disease, Chronic Back Pain Endocrine History of Endocrine Disorders: Yes (MORBID OBESTIY) HEENT History of HEENT Disorders: No Hearing Impairment: Denies Cancer History of Cancer: No Psychosocial History of Psychiatric Problem: Yes Behavioral Health Disorders: Sleep Difficulties, Anxiety, Depression Suicide Risk Score: 0 Integumentary History of Skin or Integumenta: Yes (ABSCESSES, MULTIPLE WOUND INFECTIONS, STAPH) Blood Transfusions History of Blood Disorders: No Family Medical History Significant Family History: No Pertinent Family Hx Family Medial History: Diabetes mellitus 19 MOTHER Headache disorder G8 SISTER Myocardial infarction 19 MOTHER STROKE 19 MOTHER Physical Exam-Suspected Sepsis Physical Exam Vital Signs Vital Sign - Last 12Hours 01/24/17 19:17 Temp 98.4 Pulse 80 Resp 18 B/P (MAP) 114/77 Pulse Ox 98 Capillary Refill : Less Than 3 Seconds Blood Pressure Mean: 89 General Appearance: WD/WN, Mild Distress HEENT: PERRL/EOMI, Normal ENT Inspection Neck: Normal Inspection Respiratory: Lungs Clear, Normal Breath Sounds, No Accessory Muscle Use, No Respiratory Distress Cardiovascular: Regular Rate, Rhythm, No Edema, No Murmur, Normal Peripheral Pulses (right radial pulse intact) Gastrointestinal: Normal Bowel Sounds, Non Tender, Soft Extremity: Other (right upper extremity has marketed erythema, swelling, and tenderness particularly on the proximal forearm and distal upper arm. Range of motion is significantly decreased. Sensation and capillary refill intact distally. Radial pulse intact) Neurologic/Psychiatric: Alert, Oriented x3, No Motor/Sensory Deficits, Normal Mood/Affect, seat builder II-XII Norm as Tested Skin: warm/dry, other (erythema and swelling associated with cellulitis of the right upper extremity. See above) Lymphatic: No Adenopathy, No Axilla Node Tender (R) Focused Exam Evaluation Reason for ruling out sepsis: No SIRS criteria Lactate Level Laboratory Tests 01/24/17 19:55: Lactic Acid Level 0.72 Time of Focused Exam: 21:42 Respiratory: Lungs Clear, Normal Breath Sounds, No Accessory Muscle Use, No Respiratory Distress Cardiovascular: Regular Rate, Rhythm, No Murmur, Normal Peripheral Pulses Capillary Refill: Less Than 3 Seconds Skin: warm/dry, other (erythema of the affected areas on the right upper extremity is already improving after initiation of Levaquin) Lactic Acid Level Laboratory Tests Test 01/24/17 19:55 Lactic Acid Level 0.72 MMOL/L (0.50-2.00) Laceration Repair : Suture Size: 4-0 Progress/Results/Core Measures Suspected Sepsis Recent Fever Within 48 Hours: No Infection Criteria Present: None New/Unexplained Altered Menta: No Sepsis Screen: No Definite Risk Sepsis Diagnosis: SIRS Temperature:98.4 Pulse: 80 Respiratory Rate: 18 Laboratory Tests 01/24/17 19:55: White Blood Count 12.4H Blood Pressure 114 /77 Mean: 89 Laboratory Tests 01/24/17 19:55: Lactic Acid Level 0.72 Laboratory Tests 01/24/17 19:55: Creatinine 0.83, INR Comment 1.0, Platelet Count 328, Total Bilirubin 0.5 Results/Orders Lab Results Laboratory Tests Test 01/24/17 19:55 Range/Units White Blood Count 12.4 H 4.3-11.0 10^3/uL Red Blood Count 4.90 4.35-5.85 10^6/uL Hemoglobin 10.7 L 11.5-16.0 G/DL Hematocrit 36 35-52 % Mean Corpuscular Volume 73 L 80-99 FL Mean Corpuscular Hemoglobin 22 L 25-34 PG Mean Corpuscular Hemoglobin Concent 30 L 32-36 G/DL Red Cell Distribution Width 19.0 H 10.0-14.5 % Platelet Count 328 130-400 10^3/uL Mean Platelet Volume 10.5 H 7.4-10.4 FL Neutrophils (%) (Auto) 69 42-75 % Lymphocytes (%) (Auto) 18 12-44 % Monocytes (%) (Auto) 11 0-12 % Eosinophils (%) (Auto) 2 0-10 % Basophils (%) (Auto) 1 0-10 % Neutrophils # (Auto) 8.6 H 1.8-7.8 X 10^3 Lymphocytes # (Auto) 2.2 1.0-4.0 X 10^3 Monocytes # (Auto) 1.3 H 0.0-1.0 X 10^3 Eosinophils # (Auto) 0.2 0.0-0.3 10^3/uL Basophils # (Auto) 0.1 0.0-0.1 10^3/uL Prothrombin Time 13.7 12.2-14.7 SEC INR Comment 1.0 0.8-1.4 Activated Partial Thromboplast Time 28 24-35 SEC Sodium Level 135 135-145 MMOL/L Potassium Level 4.2 3.6-5.0 MMOL/L Chloride Level 102 98-107 MMOL/L Carbon Dioxide Level 24 21-32 MMOL/L Anion Gap 9 5-14 MMOL/L Blood Urea Nitrogen 10 7-18 MG/DL Creatinine 0.83 0.60-1.30 MG/DL Estimat Glomerular Filtration Rate > 60 BUN/Creatinine Ratio 12 Glucose Level 97 70-105 MG/DL Lactic Acid Level 0.72 0.50-2.00 MMOL/L Calcium Level 9.2 8.5-10.1 MG/DL Total Bilirubin 0.5 0.1-1.0 MG/DL Aspartate Amino Transf (AST/SGOT) 18 5-34 U/L Alanine Aminotransferase (ALT/SGPT) 18 0-55 U/L Alkaline Phosphatase 122 40-136 U/L Total Protein 7.1 6.4-8.2 GM/DL Albumin 3.5 3.2-4.5 GM/DL My Orders Orders - JERROD NUGENT MD Cbc With Automated Diff (01/24/17 19:34) Comprehensive Metabolic Panel (01/24/17 19:34) Lactic Acid Analyzer (01/24/17 19:34) Blood Culture (01/24/17:34) Protime With Inr (01/24/17 19:34) Partial Thromboplastin Time (01/24/17:34) Saline Lock/Iv-Start (01/24/17 19:34) Saline Lock/Iv-Start (01/24/17 19:34) Vital Signs Adult Sepsis Patie Q1HR (01/24/17 19:34) Remove Rings In Anticipation O (01/24/17 19:34) Ketorolac Injection (Toradol Injection) (01/24/17 19:45) Ns Iv 1000 Ml (Sodium Chloride 0.9%) (01/24/17 19:34) Fentanyl Injection (Sublimaze Injection (01/24/17 19:45) Ondansetron Injection (Zofran Injectio (01/24/17 19:45) Clindamycin Injection (Cleocin Injection (01/24/17 19:45) Levofloxacin 750 Mg/150 Ml Iv (Levaquin (01/24/17 20:00) Ct Extremity Upper Right W (01/24/17 20:29) Iohexol Injection (Omnipaque 350 Mg/Ml 1 (01/24/17 20:45) Ns (Ivpb) (Sodium Chloride 0.9% Ivpb Bag (01/24/17 20:45) Vancomycin Injection (Vancomycin Injecti (01/24/17 21:30) Fentanyl Injection (Sublimaze Injection (01/24/17 21:45) Lorazepam Injection (Ativan Injection) (01/24/17 21:45) Medications Given in ED Current Medications Medications Dose Ordered Sig/Jesus Route Start Time Stop Time Status Last Admin Dose Admin Fentanyl Citrate 75 mcg ONCE ONCE IVP 01/24/17 19:45 01/24/17 19:46 DC 01/24/17 20:01 75 MCG Iohexol 100 ml ONCE ONCE IV 01/24/17 20:45 01/24/17 21:05 DC 01/24/17 20:50 100 ML Ketorolac Tromethamine 30 mg ONCE ONCE IVP 01/24/17 19:45 01/24/17 19:46 DC 01/24/17 20:01 30 MG Levofloxacin/ Dextrose 150 ml @ 100 mls/hr ONCE ONCE IV 01/24/17 20:00 01/24/17 21:29 DC 01/24/17 20:24 100 MLS/HR Ondansetron HCl 4 mg ONCE ONCE IVP 01/24/17 19:45 01/24/17 19:46 DC 01/24/17 20:00 4 MG Sodium Chloride 100 ml ONCE ONCE IV 01/24/17 20:45 01/24/17 21:05 DC 01/24/17 20:51 100 ML Sodium Chloride 1,000 ml @ 0 mls/hr Q0M ONCE IV 01/24/17 19:34 01/24/17 19:38 DC 01/24/17 20:01 0 MLS/HR Vital Signs/I&O Vital Sign - Last 12Hours 01/24/17 19:17 Temp 98.4 Pulse 80 Resp 18 B/P (MAP) 114/77 Pulse Ox 98 Intake and Output 01/25/17 00:00 Intake Total 1000 ml Balance 1000 ml Capillary Refill : Less Than 3 Seconds Blood Pressure Mean: 89 Progress Note #1: Time: 21:20 Progress Note Septic workup was pursued after initial evaluation. Based on prior cultures, Levaquin was selected as the initial antibiotic. This will be followed by vancomycin. Pain was treated with Toradol and fentanyl. Nausea was treated with Zofran. IV fluids were initiated. CT of the right upper extremity was ordered after creatinine was reviewed. Report is pending but there appears to be gas formation in the right forearm along the ulna. Orthopedics will be consulted after report is available. Progress Note #2: Time: 22:16 Progress Note Case was discussed with Dr. Berry. He agrees with treatment of the cellulitis with antibiotics based on prior culture results. He will see the patient in the morning. Patient complained of rebounding pain and anxiety. She has not had her Klonopin today. Ativan and fentanyl were ordered but patient was asleep when nurse assess the patient. Meds have not yet been given. Levaquin is still running with vancomycin ordered to follow. Diagnostic Imaging Diagonstic Imaging: CT Plain Films/CT/US/NM/MRI: other (right upper extremity) Comments CT of the right upper extremity with contrast viewed by me and report reviewed. See report below: NAME: PAULA SALAZAR [facility] REC#: [id number] PT STATUS: REG ER : 1970 PHYSICIAN: JERROD NUGENT MD ADMIT DATE: 01/24/17/ER Draft Date of Exam:01/24/17 CT EXTREMITY UPPER RIGHT W PROCEDURE: CT right upper extremity with contrast. TECHNIQUE: Axial images were obtained through the right upper extremity after intravenous contrast and reformatted into coronal and sagittal oblique planes. INDICATION: History of recent arm surgery. Infection status post arm surgery. COMPARISON: 12/08/2016 FINDINGS: Again identified is focal soft tissue emphysema involving the dorsum of the proximal forearm, laterally. Soft tissue emphysema is essentially interposed between the subcutaneous soft tissues and underlying musculature. There is associated soft tissue edema and thickening posteriorly as well. There is some image degradation secondary to beam hardening artifact from associated osseous and soft tissue attenuation. This does also result in suboptimal evaluation of the bony structures for underlying erosive lesions. However, no distinct osseous erosive process is identified. No osteoblastic lesion is seen. There is no acute fracture or dislocation. Joint spaces are maintained. No unexpected radiopaque foreign bodies are identified. Right hemithorax is clear. Note is made of few prominent lymph nodes in the right axillary region. IMPRESSION: 1. Persistent versus recurrent soft tissue edema and emphysema of the posterior right forearm. Findings raise concern for cellulitis and potential gas-forming infection. Necrotizing fasciitis cannot be excluded. 2. No osteolytic process is identified. Please note, however, that osteomyelitis cannot be excluded based on CT alone. If there is concern for osteomyelitis, MRI is recommended. 3. Few prominent right axillary lymph nodes; possibly reactive. Dictated on workstation # [id number] Dict: 01/24/172124 Trans: 01/24/172134 [facility] [id number] Interpreted by: KLEBER SINGH MD Departure Communication (Admissions) Time/Spoke to Admitting Phy: 21:55 Communication Case reviewed with Dr. Evans to agrees to admission with IV antibiotic therapy as ordered. Time/Spoke to Consulting Phy: 21:53 Communication/Consulting Case reviewed with Dr. Berry who agrees to consultation. He plans to see her in the morning. He is agreeable with Levaquin and vancomycin based on prior cultures. He requests patient be admitted to the primary care service. Impression Impression: Primary Impression: Cellulitis of right upper extremity Disposition: ADMITTED INPATIENT Condition: Improved Admissions Decision to Admit Reason: Admit from ER (General) Decision to Admit/Date: Jan 24, 2017 Time/Decision to Admit Time: 19:30 Departure-Patient Inst. Referrals: [facility] (PCP/Family) Primary Care Physician JERROD NUGENT MD Jan 24, 2017 21:29
[2017-01-24] MEDS ORDERED: VANCOMYCIN INJECTION 1,000 MG in NS (IVPB) 250 ML IV ONE (21:30)
--- NOTE | 2017-01-24 21:36 | Diagnostic Imaging Report ---
PROCEDURE: CT right upper extremity with contrast. TECHNIQUE: Axial images were obtained through the right upper extremity after intravenous contrast and reformatted into coronal and sagittal oblique planes. INDICATION: History of recent arm surgery. Infection status post arm surgery. COMPARISON: 12/08/2016 FINDINGS: Again identified is focal soft tissue emphysema involving the dorsum of the proximal forearm, laterally. Soft tissue emphysema is essentially interposed between the subcutaneous soft tissues and underlying musculature. There is associated soft tissue edema and thickening posteriorly as well. There is some image degradation secondary to beam hardening artifact from associated osseous and soft tissue attenuation. This does also result in suboptimal evaluation of the bony structures for underlying erosive lesions. However, no distinct osseous erosive process is identified. No osteoblastic lesion is seen. There is no acute fracture or dislocation. Joint spaces are maintained. No unexpected radiopaque foreign bodies are identified. Right hemithorax is clear. Note is made of few prominent lymph nodes in the right axillary region. IMPRESSION: 1. Persistent versus recurrent soft tissue edema and emphysema of the posterior right forearm. Findings raise concern for cellulitis and potential gas-forming infection. Necrotizing fasciitis cannot be excluded. 2. No osteolytic process is identified. Please note, however, that osteomyelitis cannot be excluded based on CT alone. If there is concern for osteomyelitis, MRI is recommended. 3. Few prominent right axillary lymph nodes; possibly reactive. Dictated by: Dictated on workstation # [id number]
[2017-01-24] MEDS ORDERED: LORazepam INJ 2 MG/ML (ATIVAN) VIAL IVP ONE (21:45)
[2017-01-24 23:00] VITALS: BP 113/82
[2017-01-24] MEDS ORDERED: ONDANSETRON 4 MG/2 ML (SDV) Z0FRAN IV PRN (23:00)
[2017-01-24] MEDS: fentaNYL INJECTION 100 MCG/2 ML AMP IV PRN (23:26)
[2017-01-24] MEDS: NS IV 1000 ML 1,000 ML IV SCH (23:27)
[2017-01-25] VITALS (7 sets, daily range): BP systolic 106–120; BP diastolic 63–81
[2017-01-25] MEDS: fentaNYL INJECTION 100 MCG/2 ML AMP IV PRN ×5 (03:13→14:19)
[2017-01-25 05:41] LABS: BASOPHILS # (AUTO) 0.1 10^3/uL (0.0-0.1); BASOPHILS % (AUTO) 1 % (0-10); EOSINOPHILS # (AUTO) 0.2 10^3/uL (0.0-0.3); EOSINOPHILS % (AUTO) 2 % (0-10); LYMPHOCYTES # (AUTO) 1.4 X 10^3 (1.0-4.0); LYMPHOCYTES % (AUTO) 12 % (12-44); MEAN CORPUSCULAR HEMOGLOBIN 22 PG (25-34); MEAN CORPUSCULAR HGB CONC 29 G/DL (32-36); MEAN CORPUSCULAR VOLUME 74 FL (80-99); MEAN PLATELET VOLUME 10.9 FL (7.4-10.4); MONOCYTES # (AUTO) 1.5 X 10^3 (0.0-1.0); MONOCYTES % (AUTO) 13 % (0-12); NEUTROPHILS # (AUTO) 8.9 X 10^3 (1.8-7.8); NEUTROPHILS % (AUTO) 74 % (42-75); PLATELET COUNT 286 10^3/uL (130-400); RED BLOOD COUNT 4.66 10^6/uL (4.35-5.85); RED CELL DISTRIBUTION WIDTH 19.1 % (10.0-14.5); WHITE BLOOD COUNT 12.2 10^3/uL (4.3-11.0)
[2017-01-25 06:01] LABS: ANION GAP 10 MMOL/L (5-14); BLOOD UREA NITROGEN 10 MG/DL (7-18); BUN/CREATININE RATIO 13; CALCIUM 8.5 MG/DL (8.5-10.1); CARBON DIOXIDE 18 MMOL/L (21-32); CHLORIDE 109 MMOL/L (98-107); GFR ESTIMATED > 60; GLUCOSE 98 MG/DL (70-105); POTASSIUM 4.2 MMOL/L (3.6-5.0); SODIUM 137 MMOL/L (135-145)
--- NOTE | 2017-01-25 06:35 | Consultation ---
History of Present Illness History of Present Illness Patient Consulted On(alexi/time) 01/25/17 06:29 Date Seen by Provider: Jan 25, 2017 Time Seen by Provider: 06:30 Reason for Visit: Cellulitis right arm History of Present Illness 47 y/o white female with several month history of cellulitis of right upper extremity, was admitted overnight with a recurrence of her cellulitis. She states her body "rejected the stitches" which is why this has come back. She has a history of cutting herself on that arm. Allergies and Home Medications Allergies Coded Allergies: Penicillins (Unverified Allergy, Mild, 07/02/16) dimenhydrinate (Verified Allergy, Mild, 07/17/12) morphine (Unverified Allergy, Mild, RASH, 08/29/08) prochlorperazine (Unverified Allergy, Mild, 07/23/09) oxycodone (Unverified Allergy, Unknown, 05/14/10) Uncoded Allergies: ANTI-EMETICS (Allergy, Mild, 03/26/08) ANTI-NAUSEA MEDICATIONS EXCEPT DRAMAMINE (Allergy, Mild, MAKE HER HAVE ANXIETY ATTACKS, 08/29/08) ANTIEMETICS (Allergy, Mild, 12/09/08) NAUSEA MEDS (Allergy, Mild, 12/01/08) Home Medications Albuterol Sulfate 6.7 Gm Hfa.aer.ad, 2 PUFF INH Q4H PRN for SHORTNESS OF BREATH, (Reported) Amlodipine Besylate 5 Mg Tablet, 5 MG PO DAILY, (Reported) Aspirin/Acetaminophen/Caffeine 1 Each Tablet, 2 TAB PO DAILY PRN for MIGRAINE, ( Reported) Cetirizine HCl 10 Mg Tablet, 10 MG PO DAILY, (Reported) Clonazepam 0.5 Mg Tablet, 0.5 MG PO BID, (Reported) Clonidine HCl 0.1 Mg Tablet, 0.1 MG PO TID, (Reported) Erythromycin Base 500 Mg Tablet.dr, 500 MG PO Q6H, #28 Ref 0 Prescribed by: JERROD RICE on 12/12/16933 Gabapentin 600 Mg Tablet, 600 MG PO BID, (Reported) Hydrocodone/Acetaminophen 1 Each Tablet, 1 EA PO Q4H PRN for PAIN-MODERATE, #60 Prescribed by: JERROD RICE on 12/12/16933 Hydroxyzine Pamoate 25 Mg Capsule, 25 MG PO BID, (Reported) Levofloxacin 750 Mg Tablet, 750 MG PO DAILY, #7 Ref 0 Prescribed by: JERROD RICE on 12/12/16 0934 Naproxen 500 Mg Tablet, 500 MG PO BID PRN for PAIN-MILD, (Reported) Omeprazole 40 Mg Capsule.dr, 40 MG PO DAILY PRN for HEARTBURN, (Reported) Paroxetine HCl 40 Mg Tablet, 40 MG PO HS, (Reported) Tizanidine HCl 4 Mg Tablet, 4 MG PO TID, (Reported) Trazodone HCl 100 Mg Tablet, 200 MG PO HS, (Reported) TAKES 2 (100MG) TABLETS Past Wpzvydj-Kiiams-Qehvhp Hx Patient Social History Alcohol Use: Denies Use Recreational Drug Use: No Smoking Status: Current Everyday Smoker Type Used: Cigarettes 2nd Hand Smoke Exposure: No Recent Foreign Travel: No Contact w/Someone Who Travel: No Recent Infectious Disease Expo: No Recent Hopitalizations: Yes (the end of december ) Physical Abuse: No Sexual Abuse: No Immunizations Up To Date Tetanus Booster (TDap): Less than 5yrs PED Vaccines UTD: Yes Date of Pneumonia Vaccine: Jul 26, 2012 Date of Influenza Vaccine: Feb 13, 2014 Seasonal Allergies Seasonal Allergies: Yes Surgeries History of Surgeries: Yes (LUNG SURGERY FOR EMPYEMA, LEFT OVARIAN CYST REMOVAL ; HYST/BSO) Surgeries: Appendectomy, Section, Hysterectomy, Oophorectomy ( multiple surgeries for debridement of right upper extremity), Tonsillectomy Respiratory History of Respiratory Disorde: Yes (EMPYEMA--S/P LUNG SURGERY FOR REMOVAL) Respiratory Disorders: Asthma Currently Using CPAP: No Currently Using BIPAP: No Cardiovascular History of Cardiac Disorders: Yes Cardiac Disorders: Hypertension Neurological History of Neurological Disord: Yes Neurological Disorders: Seizure Disorder Reproductive System : No Hx Reproductive Disorders: Yes (MULTIPLE OVARIAN CYSTS. 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 [employer] History: Hysterectomy Genitourinary History of Genitourinary Disor: No Gastrointestinal History of Gastrointestinal Di: Yes Gastrointestinal Disorders: Gastroesophageal Reflux, Irritable Bowel Musculoskeletal History of Musculoskeletal Dis: Yes Musculoskeletal Disorders: Degenerate Disk Disease, Chronic Back Pain Endocrine History of Endocrine Disorders: Yes (MORBID OBESTIY) HEENT History of HEENT Disorders: No Loss of Vision: Denies Hearing Impairment: Denies Cancer History of Cancer: No Psychosocial History of Psychiatric Problem: Yes Behavioral Health Disorders: Sleep Difficulties, Anxiety, Depression Suicide Risk Score: 0 Integumentary History of Skin or Integumenta: Yes (hx of ABSCESSES, MULTIPLE WOUND INFECTIONS , STAPH) Blood Transfusions History of Blood Disorders: No Family Medical History Significant Family History: No Pertinent Family Hx Family Medial History: Diabetes mellitus 19 MOTHER Headache disorder G8 SISTER Myocardial infarction 19 MOTHER STROKE 19 MOTHER Review of Systems-General Constitutional: weakness EENTM: see HPI Respiratory: no symptoms reported Cardiovascular: no symptoms reported Gastrointestinal: no symptoms reported Genitourinary: no symptoms reported Musculoskeletal: joint pain, muscle pain Skin: lesions Psychiatric/Neurological: No Symptoms Reported Physical Exam-General Problems Physical Exam Vital Signs Vital Sign - Last 12Hours 01/24/17 01/24/17 19:17 23:00 Temp 98.4 Pulse 80 Resp 18 B/P (MAP) 114/77 Pulse Ox 98 O2 Delivery Room Air Capillary Refill : Less Than 3 Seconds General Appearance: mild distress Respiratory: normal breath sounds, no respiratory distress, no accessory muscle use Cardiovascular: regular rate, rhythm Peripheral Pulses: 2+ Radial Pulses (R), 2+ Radial Pulses (L) Gastrointestinal: soft Extremities: other (Markedly improved erythema to right arm, relative to where marking were overnight, only minimal edema at this point. well healed incision on posterior aspect, with no drainage.) Assessment/Plan Assessment/Plan Admission Diagnosis/Plan Recurrent Right arm cellulitis, markedly improved overnight, but no go reason for persistent recurrences. She likely needs Infectious disease referral either as transfer or as outpatient if symptoms persists There appears to be no pressing orthopaedic need at this point and will sign off , but why she keeps having cellulitis may need further specialist input like ID Clinical Quality Measures DVT/VTE Risk/Contraindication: Risk Factor Score Per Nursin RFS Level Per Nursing on Admit: 4+=Very High ROSALINA BELLA MD Jan 25, 2017 6:35 am
[2017-01-25] MEDS: KETOROLAC 30 MG/ML VIAL IV PRN ×2 (06:51→15:26)
[2017-01-25] MEDS ORDERED: VANCOMYCIN 1,750 MG/NS 500 ML IVPB IV SCH ×2 (07:00)
[2017-01-25] MEDS: NS IV 1000 ML 1,000 ML IV SCH (08:14)
[2017-01-25] MEDS ORDERED: SULF-222 PO (10:11)
[2017-01-25] MEDS ORDERED: AMLO5TAB2 PO (10:13)
[2017-01-25] MEDS ORDERED: PANTOPRAZOLE 40 MG (PROTONIX) TAB PO PRN (11:00)
[2017-01-25] MEDS ORDERED: RT-ALBUTEROL SULF 2.5 MG/3 ML PRE-MIX VIAL IH PRN (11:00)
--- NOTE | 2017-01-25 11:10 | Short Stay Summary ---
HPI History of Present Illness: Patient presented to ED last night with an extremely edematous, erythematous, tender, painful right upper extremity, mostly from her elbow to her forearm. She has been having issues with this for the last ~5 months, with recurrent episodes of cellulitis and tenosynovitis which has required multiple surgical interventions. Her most recent surgery was performed on 12/09/[address] Andrew when she had I&D of right ulna. Pt reports that her symptoms have become more severe over the last several days; in addition to the symptoms in her right arm, she also has nausea, lightheadedness and increased anxiety. She reports that at home she has had a fever as high as 102 degrees Fahrenheit. She was on a 10 day course of Bactrim DS on presentation to the ED, although there is high suspicion that she was not taking her antibiotics. She has also previously been on Cipro. She has wound culture results from 12/08/16 which show polymycrobial growth including e coli, enterobacter, and enterococcus. Sensitivities were reviewed and it demonstrated that she does NOT have VRE. She was placed on the medical floor and started on IV antibiotics, and a consult to orthopedics was placed. Source: patient, old records Exam Limitations: no limitations Date seen by provider: Jan 25, 2017 Time Seen by Provider: 09:45 Attending Physician Lina Evans MD [place] [facility] [place] Consult Dr. Sherman Berry Date of Admission Jan 24, 2017 at 22:00 Home Medications Home Medications Reviewed patient Home Medication Reconciliation Form Allergies Coded Allergies: Penicillins (Unverified Allergy, Mild, 07/02/16) dimenhydrinate (Verified Allergy, Mild, 07/17/12) morphine (Unverified Allergy, Mild, RASH, 08/29/08) prochlorperazine (Unverified Allergy, Mild, 07/23/09) oxycodone (Unverified Allergy, Unknown, 05/14/10) Uncoded Allergies: ANTI-EMETICS (Allergy, Mild, 03/26/08) ANTI-NAUSEA MEDICATIONS EXCEPT DRAMAMINE (Allergy, Mild, MAKE HER HAVE ANXIETY ATTACKS, 08/29/08) ANTIEMETICS (Allergy, Mild, 12/09/08) NAUSEA MEDS (Allergy, Mild, 12/01/08) PVS-Oylvdx-Nwezao Hx Patient Social History Marrital Status: single Employed/Student: retired Alcohol Use: Denies Use Recreational Drug Use: No Smoking Status: Current Everyday Smoker Type Used: Cigarettes 2nd Hand Smoke Exposure: No Recent Foreign Travel: No Contact w/other who traveled: No Recent Hopitalizations: Yes (the end of december ) Recent Infectious Disease Expo: No Physical Abuse Screen: No Sexual Abuse: No Immunizations Up To Date Tetanus Booster (TDap): Less than 5yrs Date of Pneumonia Vaccine: Jul 26, 2012 Date of Influenza Vaccine: Feb 13, 2014 Past Medical History Anxiety HTN Headaches Chronic, slow healing wounds Constipation Morbid Obesity, BMI 41.5 Tobacco Abuse Chronic Pain Pulmonary Venous Congestion History of Seizures History of TIA Seasonal Allergies GERD Cellulitis Family Medical History Significant Family History: No Pertinent Family Hx Family History: Diabetes mellitus 19 MOTHER Headache disorder G8 SISTER Myocardial infarction 19 MOTHER STROKE 19 MOTHER Review of Systems ([facility]) Constitutional: chills, diaphoresis, dizziness, fever, malaise, weakness EENTM: No ear discharge, No ear pain, No eye pain, No vision loss, No epistaxis Respiratory: No cough, No hemoptysis Cardiovascular: No chest pain, edema Gastrointestinal: constipation, No jaundice, nausea Genitourinary: no symptoms reported : No Musculoskeletal: joint pain, joint swelling, muscle pain Skin: see HPI, change in color Psychiatric/Neurological: Anxiety, Headache Reviewed Test Results Reviewed Test Results Lab Laboratory Tests 01/24/17 19:55: Lactic Acid Level 0.72 Laboratory Tests 01/24/17 19:55 01/25/17 05:13 01/25/17 05:[address] Right UE: IMPRESSION: 1. Persistent versus recurrent soft tissue edema and emphysema of the posterior right forearm. Findings raise concern for cellulitis and potential gas-forming infection. Necrotizing fasciitis cannot be excluded. 2. No osteolytic process is identified. Please note, however, that osteomyelitis cannot be excluded based on CT alone. If there is concern for osteomyelitis, MRI is recommended. 3. Few prominent right axillary lymph nodes; possibly reactive. Final radiology report pending at the time of this documentation Physical Exam-([facility]) Physical Exam Vital Signs VS - Last 72 Hours, by Label 01/24/17 01/24/17 01/24/17 01/25/17 19:17 22:32 23:00 00:00 Temp 98.4 98.9 98.8 97.7 Pulse 80 84 87 91 Resp 18 B/P (MAP) 114/77 113/82 110/68 Pulse Ox 98 99 97 95 O2 Delivery Room Air Room Air 01/25/17 01/25/17 01/25/17 01/25/17 01:00 02:00 04:00 07:47 Temp 97.6 97.4 100.7 99.9 Pulse 84 89 85 81 Resp 18 20 B/P (MAP) 106/63 120/81 109/71 109/67 Pulse Ox 90 93 93 96 O2 Delivery Room Air Room Air Room Air Room Air Capillary Refill : Less Than 3 Seconds General Appearance: mild distress HEENT: No scleral icterus (L), No photophobia Neck: non-tender, supple, normal inspection Respiratory: no respiratory distress, no accessory muscle use, wheezing ( diffuse intermittent wheezes bilaterally) Cardiovascular: normal peripheral pulses, regular rate, rhythm, other (+ murmur ) Gastrointestinal: normal bowel sounds, non tender, soft, no organomegaly, No distended, No guarding Rectal: deferred Extremities: other (right extremity with swelling from elbow to fingers, very tender, mild erythema with no erythema noted outside of marked borders ) Neurologic/Psychiatric: handkerchief cutter II-XII nml as tested, alert, oriented x 3, depressed affect Skin: normal color, warm/dry Short Stay Diagnosis Discharge Diagnosis-Short Stay Admission Diagnosis Cellulitis Final Discharge Diagnosis Cellulitis, Medical non-compliance Conclusion Plan Orthopedics was consulted and they did not feel that there was any bone involvement based on CT scan done 01/24. The patient was admitted to the floor and started on levaquin and vancomycin. Her previous cultures were reviewed for sensitivities. The patient reports that the redness has improved this morning, but she continues to have a burning pain from her elbow down to her fingers on the right side. She also reports that without her home dose of clonazepam, her anxiety is really bothering her, and she would like to restart her home meds. Given that pt has had multiple admissions for RUE cellulitis and appears to be non-compliant with her home antibiotics, now with possible gas under her soft tissue in her forearm per CT, it is felt that the best course of action at this time is to transfer her to a higher level of care with infectious disease available if needed. The patient reports that she is agreeable to this. Dr. Mixon at [facility] was contacted and agrees to accept the patient for transfer. We will transfer her via EMS, as the patient continues to require a high level of care due to her infection and possibility of osteomyelitis. Problem List (1) Cellulitis of right upper extremity Status: Acute (2) Chronic wound of extremity Status: Acute (3) Pain Status: Chronic (4) Anxiety Status: Chronic (5) Nausea Status: Acute (6) Dizziness Status: Acute (7) Constipation Qualifiers: Qualified Codes: K59.00 - Constipation, unspecified Status: Chronic Clinical Quality Measures DVT/VTE Risk/Contraindication: Risk Factor Score Per Nursin RFS Level Per Nursing on Admit: 4+=Very High CHASE RENDON DO Jan 25, 2017 11:09
[2017-01-25] MEDS ORDERED: LEVOFLOXACIN 750 MG/D5W 150 ML PRE-MIX IV SCH (20:00)
[2017-01-25] MEDS ORDERED: clonazePAM 0.5 MG (KlonoPIN) TAB PO SCH (21:00)
[2017-01-25] MEDS ORDERED: hydrOXYzine (VISTARIL) 25 MG CAP PO SCH (21:00)
[2017-01-25] MEDS ORDERED: traZODone 100 MG (DESYREL) TAB PO SCH (21:00)
[2017-01-25] MEDS ORDERED: GABAPENTIN 600 MG (NEURONTIN) TAB PO SCH (21:00)
[2017-01-25] MEDS ORDERED: PARoxetine 20 MG (PAXIL) TAB PO SCH (21:00)
[2017-01-25] MEDS ORDERED: VANCOMYCIN 500 MG/NS 100 ML IVPB IV SCH ×2 (21:30)
[2017-01-26] MEDS ORDERED: TROUGH ORDER-PHARMACY XX NR (06:00)
[2017-01-26] MEDS ORDERED: LORATADINE (CLARITIN) 10 MG TAB PO SCH (09:00)
[2017-01-26] MEDS ORDERED: amLODIPine 5 MG (NORVASC) TAB PO SCH (09:00)
== END 2017-01-25 16:55 | disposition short-term general hospital (02) | DRG 603 ==
LOC: EDUNIT# 18:59 → ER 19:00 → 4TH 22:00
PROVIDERS: ADMIT Family Medicine; ATTEND Family Medicine
DX: L03.113 Cellulitis of right upper limb (principal); G40.909 Epilepsy, unspecified, not intractable, without status epilepticus; F41.9 Anxiety disorder, unspecified; E66.01 Morbid (severe) obesity due to excess calories; Z68.41 Body mass index [BMI] 40.0-44.9, adult; I10 Essential (primary) hypertension; K21.9 Gastro-esophageal reflux disease without esophagitis; F32.9 Major depressive disorder, single episode, unspecified; F17.210 Nicotine dependence, cigarettes, uncomplicated; Z91.19 Patient's noncompliance with other medical treatment and regimen
CPT/HCPCS: 36415; 73201; 80048; 80053; 80306; 83605; 85025; 85610; 85730; 87040

== ENCOUNTER 2017-02-05 13:23 | Emergency (ER) | payer MEDICAID ==
[~2017-02-05] VITALS: Ht 175.3 cm; Wt 113.4 kg
[~2017-02-05 13:23] MED LIST changes: +ASPI-789 PO; -ASPI1TAB22 PO; +NAPR-1070 PO; -NAPR500T3 PO; +NAPR500T4 PO; -NAPR550T PO
--- OUTSIDE RECORDS SUMMARY | 2017-02-05 13:31 | XMS REPORT ---
Author Author LONNIE WIGGINS [facility] Address [address] [place] [address] Care Team Providers Care Draughtsman Name Role Phone LONNIE WIGGINS Unavailable PROBLEMS Type Condition ICD9-CM Code [id number] Code Onset Dates Condition Status SNOMED Code Problem Edema R60.9 Active 776741588 Problem History of abnormal mammogram Z87.898 Active 357408050 Problem Generalized anxiety disorder F41.1 Active 95899584 Problem Violation of controlled substance agreement Z91.14 Active 799485579 Problem Right sided sciatica M54.31 Active 15861848 Problem Post-traumatic stress disorder, unspecified F43.10 Active 59045728 Problem Slow transit constipation K59.01 Active 57744809 Problem New onset seizure R56.9 Active 50291343 Problem 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 Active 219479599 Problem Essential (primary) hypertension I10 Active 42293022 Problem Self mutilating behavior Z72.89 Active 743263485 Problem GERD (gastroesophageal reflux disease) K21.9 Active 411698251 Problem Heartburn R12 Active 41556063 Problem Neuropathy, idiopathic G60.9 Active 39528578 Problem Essential hypertension I10 Active 56052718 ALLERGIES Substance Reaction Event Type Date Status Compazine anger Drug Allergy Jun, Active Rocephin thick tongue Drug Allergy Jun, Active Phenergan shortness of breath Drug Allergy Jun, Active Penicillin V Potassium Unknown Drug Allergy Jun, Active Morphine Sulfate hives Drug Allergy Jun, Active mushrooms Unknown Non Drug Allergy Jun, Active SOCIAL HISTORY No smoking Hx information available PLAN OF CARE Activity Details Follow Up 2 months Reason:fu neurology VITAL SIGNS Height 66 in 2016-06-17 Weight 305.6 lbs 2016-06-17 Temperature 98.0 degrees Fahrenheit 2016-06-17 Heart Rate 90 bpm 2016-06-17 Respiratory Rate 22 2016-06-17 BMI 49.32 kg/m2 2016-06-17 Blood pressure systolic 130 mmHg 2016-06-17 Blood pressure diastolic 88 mmHg 2016-06-17 MEDICATIONS Medication Instructions Dosage Frequency Start Date End Date Duration Status Meloxicam 15 MG TAKE ONE TABLET BY MOUTH ONCE DAILY 30 Active Hydrochlorothiazide 25 MG Orally Once a day 1 tablet 24h 30 Active Norvasc 5 MG Orally Once a day 1 tablet 24h Active Albuterol Sulfate HFA 108 (90 Base) MCG/ACT Inhalation every 4 hrs 2 puffs as needed 4h Active Clonidine HCl 0.1 MG TAKE ONE TABLET BY MOUTH THREE TIMES DAILY 30 Active Seroquel 300 MG Orally Once a day 1 tablet at bedtime 24h 26 Feb, 2016 Active Gabapentin 600 MG oral 2 times a day 1 tablet 12h 30 Active Omeprazole 40 MG Orally Once a day 1 capsule 24h 30 Active Lovastatin 20 mg Orally Once a day 1 tablet with a meal 24h 30 Active Cetirizine HCl 10 mg Orally Once a day 1 tablet 24h 30 Active Spiriva HandiHaler 18 MCG Inhalation Once a day as directed 24h Apr, Active Doxycycline Hyclate 100 mg Orally every 12 hrs 1 capsule 12h Jun, Jun, 07 days Active Albuterol Sulfate (2.5 MG/3ML) 0.083% Inhalation Three times a day 3 ml 8h 1 months Active Paxil 40 mg Orally Once a day 1 tablet in the morning 24h Apr, 30 days Active PredniSONE 20 mg Orally Once a day 1 tablet 24h Jun, Jun, 05 days Active RESULTS No Results PROCEDURES Procedure Date Ordered Related Diagnosis Body Site Office Visit, Est Pt., Level 5 Jun 17, 2016 IMMUNIZATIONS No Known Immunizations
--- OUTSIDE RECORDS SUMMARY | 2017-02-05 13:31 | XMS REPORT ---
Author Author MARILUZ SIMONS [facility] Address [address] [place] [address] Care Team Providers Care Manager Of Recruiting Name Role Phone MARILUZ SIMONS Unavailable PROBLEMS Type Condition ICD9-CM Code [id number] Code Onset Dates Condition Status SNOMED Code Problem Edema R60.9 Active 908799624 Problem History of abnormal mammogram Z87.898 Active 652414837 Problem Generalized anxiety disorder F41.1 Active 54201675 Problem Violation of controlled substance agreement Z91.14 Active 222358448 Problem Right sided sciatica M54.31 Active 81231616 Problem Post-traumatic stress disorder, unspecified F43.10 Active 86397049 Problem Slow transit constipation K59.01 Active 10270765 Problem New onset seizure R56.9 Active 89675474 Problem 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 Active 850243472 Problem Essential (primary) hypertension I10 Active 91164902 Problem Self mutilating behavior Z72.89 Active 811428384 Problem GERD (gastroesophageal reflux disease) K21.9 Active 663136988 Problem Heartburn R12 Active 13689759 Problem Neuropathy, idiopathic G60.9 Active 37309603 Problem Essential hypertension I10 Active 41658744 ALLERGIES Substance Reaction Event Type Date Status Compazine anger Drug Allergy Apr, Active Rocephin thick tongue Drug Allergy Apr, Active Phenergan shortness of breath Drug Allergy Apr, Active Penicillin V Potassium Unknown Drug Allergy Apr, Active Morphine Sulfate hives Drug Allergy Apr, Active mushrooms Unknown Non Drug Allergy Apr, Active SOCIAL HISTORY No smoking Hx information available PLAN OF CARE Activity Details Follow Up with PCP as scheduled Reason: VITAL SIGNS Height 66 in 2016-05-05 Weight 309 lbs 2016-05-05 Temperature 98.2 degrees Fahrenheit 2016-05-05 Heart Rate 92 bpm 2016-05-05 Respiratory Rate 24 2016-05-05 Oximetry on room air:97 % 2016-05-05 BMI 49.87 kg/m2 2016-05-05 Blood pressure systolic 140 mmHg 2016-05-05 Blood pressure diastolic 90 mmHg 2016-05-05 MEDICATIONS Medication Instructions Dosage Frequency Start Date End Date Duration Status Albuterol Sulfate (2.5 MG/3ML) 0.083% Inhalation Three times a day 3 ml 8h 1 months Active Omeprazole 40 MG Orally Once a day 1 capsule 24h 30 Active Gabapentin 600 MG oral three times a day 1 tablet 8h 30 Active Seroquel 300 MG Orally Once a day 1 tablet at bedtime 24h Feb, 30 day(s) Active Lovastatin 20 mg Orally Once a day 1 tablet with a meal 24h 30 Active Nortriptyline HCl 50 MG Orally Once a day 1 capsule 24h 30 days Active Meloxicam 15 MG TAKE ONE TABLET BY MOUTH ONCE DAILY 30 Active Clonazepam 1 MG Orally once a day 1 tablet 24h Feb, 30 days Active Spiriva HandiHaler 18 MCG Inhalation Once a day as directed 24h Apr, Active Cetirizine HCl 10 mg Orally Once a day 1 tablet 24h 30 Active Paxil 40 MG Orally Once a day 1 tablet in the morning 24h Apr, 30 days Active Seroquel 100 MG Orally as needed twice a day 1 tablet 12h Feb, 30 day(s) Active Losartan Potassium 50 MG Orally Once a day 1 tablet 24h 30 Active Clonidine HCl 0.1 MG TAKE ONE TABLET BY MOUTH THREE TIMES DAILY 30 Active Tizanidine HCl 4 MG TAKE ONE TABLET BY MOUTH THREE TIMES DAILY NEEDED 30 Active Symbicort 160-4.5 MCG/ACT Inhalation Twice a day 2 puffs 12h Nov, Active Hydrochlorothiazide 25 MG Orally Once a day 1 tablet 24h 30 Active Albuterol Sulfate HFA 108 (90 Base) MCG/ACT Inhalation every 4 hrs 2 puffs as needed 4h Active Norvasc 5 MG Orally Once a day 1 tablet 24h Active RESULTS No Results PROCEDURES Procedure Date Ordered Related Diagnosis Body Site NEBULIZER TREATMENT 2016-05-05 N/A MEASURE BLOOD OXYGEN LEVEL May 05, 2016 Office Visit, Est Pt., Level 4 May 05, 2016 NEB/MDI RX INITIAL May 05, 2016 IMMUNIZATIONS No Known Immunizations
--- OUTSIDE RECORDS SUMMARY | 2017-02-05 13:32 | XMS REPORT ---
Author Author MARILUZ SIMONS [facility] Address [address] [place] [address] Care Team Providers Care Popped Corn Oven Attendant Name Role Phone MARILUZ SIMONS Unavailable PROBLEMS Type Condition ICD9-CM Code [id number] Code Onset Dates Condition Status SNOMED Code Problem Edema R60.9 Active 767443916 Problem History of abnormal mammogram Z87.898 Active 535552873 Problem Generalized anxiety disorder F41.1 Active 83810647 Problem Violation of controlled substance agreement Z91.14 Active 959147130 Problem Right sided sciatica M54.31 Active 91999552 Problem Post-traumatic stress disorder, unspecified F43.10 Active 83539472 Problem Slow transit constipation K59.01 Active 47571359 Problem New onset seizure R56.9 Active 42611336 Problem 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 Active 917501552 Problem Essential (primary) hypertension I10 Active 45197977 Problem Self mutilating behavior Z72.89 Active 324258015 Problem GERD (gastroesophageal reflux disease) K21.9 Active 385738653 Problem Heartburn R12 Active 60131347 Problem Neuropathy, idiopathic G60.9 Active 41408210 Problem Essential hypertension I10 Active 60811259 ALLERGIES Unknown Allergies SOCIAL HISTORY No smoking Hx information available PLAN OF CARE VITAL SIGNS MEDICATIONS Medication Instructions Dosage Frequency Start Date End Date Duration Status Meloxicam 15 MG TAKE ONE TABLET BY MOUTH ONCE DAILY 30 Active Norvasc 5 MG Orally Once a day 1 tablet 24h Active Albuterol Sulfate HFA 108 (90 Base) MCG/ACT Inhalation every 4 hrs 2 puffs as needed 4h Active Omeprazole 40 MG Orally Once a day 1 capsule 24h 30 Active Albuterol Sulfate (2.5 MG/3ML) 0.083% Inhalation Three times a day 3 ml 8h 1 months Active Paxil 40 mg Orally Once a day 1 tablet in the morning 24h Apr, 30 days Active Lovastatin 20 mg Orally Once a day 1 tablet with a meal 24h 30 Active Clonidine HCl 0.1 MG TAKE ONE TABLET BY MOUTH THREE TIMES DAILY 30 Active Hydrochlorothiazide 25 MG Orally Once a day 1 tablet 24h 30 Active Seroquel 300 MG Orally Once a day 1 tablet at bedtime 24h Feb, Active Spiriva HandiHaler 18 MCG Inhalation Once a day as directed 24h Apr, Active Cetirizine HCl 10 mg Orally Once a day 1 tablet 24h 30 Active RESULTS No Results PROCEDURES No Known procedures IMMUNIZATIONS No Known Immunizations
--- OUTSIDE RECORDS SUMMARY | 2017-02-05 13:33 | XMS REPORT ---
Author Author LONNIE WIGGINS [facility] Address [address] [place] [address] Care Team Providers Care Tso Name Role Phone LONNIE WIGGINS Unavailable PROBLEMS Type Condition ICD9-CM Code [id number] Code Onset Dates Condition Status SNOMED Code Problem Edema R60.9 Active 024033790 Problem History of abnormal mammogram Z87.898 Active 823743963 Problem Generalized anxiety disorder F41.1 Active 03814743 Problem Violation of controlled substance agreement Z91.14 Active 015576863 Problem Right sided sciatica M54.31 Active 22421096 Problem Post-traumatic stress disorder, unspecified F43.10 Active 45423180 Problem Slow transit constipation K59.01 Active 27716369 Problem New onset seizure R56.9 Active 40222674 Problem 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 Active 074920814 Problem Essential (primary) hypertension I10 Active 51187082 Problem Self mutilating behavior Z72.89 Active 574125882 Problem GERD (gastroesophageal reflux disease) K21.9 Active 922256885 Problem Heartburn R12 Active 90721034 Problem Neuropathy, idiopathic G60.9 Active 59994071 Problem Essential hypertension I10 Active 81808089 ALLERGIES No Information SOCIAL HISTORY Never Assessed PLAN OF CARE VITAL SIGNS MEDICATIONS Unknown Medications RESULTS No Results PROCEDURES No Known procedures IMMUNIZATIONS No Known Immunizations MEDICAL (GENERAL) HISTORY Type Description Date Medical History hypertension Medical History Headache syndrome Medical History Depression Medical History borderline personality disorder Medical History dysthymic disorder Medical History gastroesophageal reflux disease (GERD) Medical History Anxiety disorder Medical History polyneuropathy left leg Medical History allergic rhinitis Medical History PTSD Medical History sciatica Medical History degenerative disease lumbosacral spine Medical History herniated disc & buldging disc(s) Medical History osteoarthritis Medical History heart attack Medical History pneumonia Medical History asthma Medical History Major depressive disorder, recurrent episode, moderate Surgical History right lung scraping empyema -lateral aspect 1995 Surgical History appendectomy 1995 Surgical History EGD by Dr Parker, hiatal hernia and duodentitis 11/06/2012 Surgical History hysterectomy 03/2008 Surgical History oopherectomy/salpingectomy 1991 Surgical History Seizures possibly related to overdose/mistaking medications 2016 Surgical History right hand debridment 07/16/2016 Surgical History Right arm cellulitus 11/2016 Hospitalization History staph infection 08/2014 Hospitalization History Rt hand post op infection-[facility] 07/25/16 Hospitalization History cellulitus Right elbow-[facility] 12/09/16
--- OUTSIDE RECORDS SUMMARY | 2017-02-05 13:34 | XMS REPORT ---
Author Author LONNIE WIGGINS [facility] Address [address] [place] [address] Care Team Providers Care Form Setter Name Role Phone LONNIE WIGGINS Unavailable PROBLEMS Type Condition ICD9-CM Code [id number] Code Onset Dates Condition Status SNOMED Code Problem Edema R60.9 Active 091006247 Problem History of abnormal mammogram Z87.898 Active 747418502 Problem Generalized anxiety disorder F41.1 Active 27890848 Problem Violation of controlled substance agreement Z91.14 Active 708787409 Problem Right sided sciatica M54.31 Active 17624346 Problem Post-traumatic stress disorder, unspecified F43.10 Active 71012849 Problem Slow transit constipation K59.01 Active 16153060 Problem New onset seizure R56.9 Active 70148002 Problem 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
--- OUTSIDE RECORDS SUMMARY | 2017-02-05 13:36 | XMS REPORT ---
Author Author LONNIE WIGGINS [facility] Address [address] [place] [address] Care Team Providers Care Shoe Planner Name Role Phone LONNIE WIGGINS Unavailable PROBLEMS Type Condition ICD9-CM Code [id number] Code Onset Dates Condition Status SNOMED Code Problem Edema R60.9 Active 171985814 Problem History of abnormal mammogram Z87.898 Active 495540657 Problem Generalized anxiety disorder F41.1 Active 71654167 Problem Violation of controlled substance agreement Z91.14 Active 360396931 Problem Right sided sciatica M54.31 Active 43371308 Problem Post-traumatic stress disorder, unspecified F43.10 Active 02483603 Problem Slow transit constipation K59.01 Active 14781541 Problem New onset seizure R56.9 Active 79369348 Problem 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
--- OUTSIDE RECORDS SUMMARY | 2017-02-05 13:39 | XMS REPORT ---
Author Author LONNIE WIGGINS [facility] Address [address] [place] [address] Care Team Providers Care Retail Sales Associate Seasonal Name Role Phone LONNIE WIGGINS Unavailable PROBLEMS Type Condition ICD9-CM Code QWF13-ZF Code Onset Dates Condition Status SNOMED Code Problem Edema R60.9 Active 859213994 Problem History of abnormal mammogram Z87.898 Active 376069412 Problem Generalized anxiety disorder F41.1 Active 92404839 Problem Violation of controlled substance agreement Z91.14 Active 643399823 Problem Right sided sciatica M54.31 Active 19275944 Problem Post-traumatic stress disorder, unspecified F43.10 Active 87650427 Problem Slow transit constipation K59.01 Active 86055022 Problem New onset seizure R56.9 Active 04823226 Problem 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
--- OUTSIDE RECORDS SUMMARY | 2017-02-05 13:41 | XMS REPORT ---
Author Author JELLY ELMORE Organization [facility] Address Unknown Care Team Providers Care Acute Care Clinical Nurse Specialist Name Role Phone CATARINAJELLY Unavailable PROBLEMS Type Condition ICD9-CM Code [id number] Code Onset Dates Condition Status SNOMED Code Problem Slow transit constipation K59.01 Active 61066147 Problem Post-traumatic stress disorder, unspecified F43.10 Active 23877132 Problem Acute bronchiolitis due to other specified organisms J21.8 Active 713566890 Problem Right sided sciatica M54.31 Active 71195530 Problem Essential (primary) hypertension I10 Active 42191109 Problem New onset seizure R56.9 Active 89619320 Problem Bilateral low back pain without sciatica M54.5 Active 552663846 Problem Chronic pain G89.29 Active 19551789 Problem Bronchiolitis J21.9 Active 9082145 Problem Low back pain M54.5 Active 912134274 Problem Skin infection L08.9 Active 342254353 Problem 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 Active 065419928 Problem Essential hypertension I10 Active 73929980 Problem Chronic cough R05 Active 70437145 Problem Self mutilating behavior Z72.89 Active 789323549 Problem Heartburn R12 Active 53370540 Problem Other seasonal allergic rhinitis J30.2 Active 929235386 Problem Bronchitis J40 Active 33874831 Problem GERD (gastroesophageal reflux disease) K21.9 Active 189846820 Problem Edema R60.9 Active 233129826 Problem Edema of both legs R60.0 Active 232999781 Problem Neuropathy, idiopathic G60.9 Active 14378219 Problem Generalized anxiety disorder F41.1 Active 70272690 Problem History of abnormal mammogram Z87.898 Active 929330043 ALLERGIES Unknown Allergies SOCIAL HISTORY No smoking Hx information available PLAN OF CARE VITAL SIGNS MEDICATIONS Medication Instructions Dosage Frequency Start Date End Date Duration Status Clonazepam 1 MG Orally once a day 1 tablet 24h Feb, 30 days Active RESULTS No Results PROCEDURES No Known procedures IMMUNIZATIONS No Known Immunizations
--- OUTSIDE RECORDS SUMMARY | 2017-02-05 13:41 | XMS REPORT ---
Author Author JELLY Winn Organization [facility] Address Unknown Care Team Providers Care Brownfield Redevelopment Specialist Name Role Phone JELLY Winn Unavailable PROBLEMS Type Condition ICD9-CM Code CLJ67-EM Code Onset Dates Condition Status SNOMED Code Problem Edema R60.9 Active 650862319 Problem History of abnormal mammogram Z87.898 Active 708378735 Problem Generalized anxiety disorder F41.1 Active 64129947 Problem Violation of controlled substance agreement Z91.14 Active 940870244 Problem Right sided sciatica M54.31 Active 68819370 Problem Post-traumatic stress disorder, unspecified F43.10 Active 15761883 Problem Slow transit constipation K59.01 Active 12634861 Problem New onset seizure R56.9 Active 53786861 Problem 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
--- OUTSIDE RECORDS SUMMARY | 2017-02-05 13:42 | XMS REPORT ---
Author Author LEN JOHNSON Organization [facility] Address [address] [place] [address] Care Team Providers Care Transfer Man Name Role Phone ELIZABETH, LEN Unavailable PROBLEMS Type Condition ICD9-CM Code [id number] Code Onset Dates Condition Status SNOMED Code Problem Edema R60.9 Active 121178151 Problem History of abnormal mammogram Z87.898 Active 555747649 Problem Generalized anxiety disorder F41.1 Active 82782034 Problem Violation of controlled substance agreement Z91.14 Active 821291323 Problem Right sided sciatica M54.31 Active 18173501 Problem Post-traumatic stress disorder, unspecified F43.10 Active 38475740 Problem Slow transit constipation K59.01 Active 69827883 Problem New onset seizure R56.9 Active 56606563 Problem 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 Active 836122658 Problem Essential (primary) hypertension I10 Active 46743093 Problem Self mutilating behavior Z72.89 Active 002782530 Problem GERD (gastroesophageal reflux disease) K21.9 Active 213350044 Problem Heartburn R12 Active 29196588 Problem Neuropathy, idiopathic G60.9 Active 92183568 Problem Essential hypertension I10 Active 41325031 ALLERGIES Substance Reaction Event Type Date Status Compazine anger Drug Allergy May, Active Rocephin thick tongue Drug Allergy May, Active Phenergan shortness of breath Drug Allergy May, Active Penicillin V Potassium Unknown Drug Allergy May, Active Morphine Sulfate hives Drug Allergy May, Active mushrooms Unknown Non Drug Allergy May, Active SOCIAL HISTORY No smoking Hx information available PLAN OF CARE Activity Details Follow Up 4 Weeks Reason: VITAL SIGNS Height 66 in 2016-06-11 Weight 309.3 lbs 2016-06-11 Heart Rate 128 bpm 2016-06-11 Respiratory Rate 30 2016-06-11 BMI 49.92 kg/m2 2016-06-11 Blood pressure systolic 129 mmHg 2016-06-11 Blood pressure diastolic 81 mmHg 2016-06-11 MEDICATIONS Medication Instructions Dosage Frequency Start Date End Date Duration Status Hydrochlorothiazide 25 MG Orally Once a day 1 tablet 24h 30 Active Symbicort 160-4.5 MCG/ACT Inhalation Twice a day 2 puffs 12h Nov, Active Paxil 40 mg Orally Once a day 1 tablet in the morning 24h 16 Apr, 2015 30 days Active Spiriva HandiHaler 18 MCG Inhalation Once a day as directed 24h Apr, Active Clonidine HCl 0.1 MG TAKE ONE TABLET BY MOUTH THREE TIMES DAILY 30 Active Orphenadrine Citrate ER 100 MG Orally twice a day 1 tablet 12h May, 7 Jun, 2016 28 days Active Albuterol Sulfate HFA 108 (90 Base) MCG/ACT Inhalation every 4 hrs 2 puffs as needed 4h Active Clonazepam 0.5 MG Orally Twice a day 1 tablet in the AM and 1 tab in the evening 12h Feb, 30 days Active Gabapentin 600 MG TAKE ONE TABLET BY MOUTH THREE TIMES DAILY 30 Active Sulfamethoxazole-Trimethoprim 800-160 MG 7 Active Seroquel 300 MG Orally Once a day 1 tablet at bedtime 24h Feb, Active Cheratussin AC 100-10 MG/5ML Orally every 8 hrs prn severe cough 5 ml Mar, Active Losartan Potassium 50 MG Orally Once a day 1 tablet 24h 30 Active Lovastatin 20 mg Orally Once a day 1 tablet with a meal 24h 30 Active Cetirizine HCl 10 mg Orally Once a day 1 tablet 24h 30 Active Albuterol Sulfate (2.5 MG/3ML) 0.083% Inhalation Three times a day 3 ml 8h 1 months Active Omeprazole 40 MG Orally Once a day 1 capsule 24h 30 Active Norvasc 5 MG Orally Once a day 1 tablet 24h Active Meloxicam 15 MG TAKE ONE TABLET BY MOUTH ONCE DAILY 30 Active Seroquel 100 mg Orally as needed twice a day 1 tablet 12h Feb, 30 days Active RESULTS No Results PROCEDURES Procedure Date Ordered Related Diagnosis Body Site MH Office Visit, Est Pt., Level 3 Jun 11, 2016 IMMUNIZATIONS No Known Immunizations
--- OUTSIDE RECORDS SUMMARY | 2017-02-05 13:45 | XMS REPORT ---
Author Author LONNIE WIGGINS [facility] Address [address] [place] [address] Care Team Providers Care Development Scientist Name Role Phone LONNIE WIGGINS Unavailable PROBLEMS Type Condition ICD9-CM Code [id number] Code Onset Dates Condition Status SNOMED Code Problem Edema R60.9 Active 088330292 Problem History of abnormal mammogram Z87.898 Active 193187787 Problem Generalized anxiety disorder F41.1 Active 55710534 Problem Violation of controlled substance agreement Z91.14 Active 791475742 Problem Right sided sciatica M54.31 Active 42300432 Problem Post-traumatic stress disorder, unspecified F43.10 Active 35119449 Problem Slow transit constipation K59.01 Active 56424180 Problem New onset seizure R56.9 Active 06170346 Problem 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 Active 896307062 Problem Essential (primary) hypertension I10 Active 31869522 Problem Self mutilating behavior Z72.89 Active 600607731 Problem GERD (gastroesophageal reflux disease) K21.9 Active 912305322 Problem Heartburn R12 Active 74417992 Problem Neuropathy, idiopathic G60.9 Active 66815684 Problem Essential hypertension I10 Active 84314631 ALLERGIES Substance Reaction Event Type Date Status [...] PLAN OF CARE Activity Details Follow Up nurse visit 10 days 4 weeks Reason:back pain VITAL SIGNS Height 66 in 2016-05-25 Weight 313.4 lbs 2016-05-25 Temperature 97.2 degrees Fahrenheit 2016-05-25 Heart Rate 90 bpm 2016-05-25 Respiratory Rate 24 2016-05-25 Oximetry on room air:98 % 2016-05-25 BMI 50.58 kg/m2 2016-05-25 Blood pressure systolic 128 mmHg 2016-05-25 Blood pressure diastolic 74 mmHg 2016-05-25 MEDICATIONS Medication Instructions Dosage Frequency Start Date End Date Duration Status Meloxicam 15 MG TAKE ONE TABLET BY MOUTH ONCE DAILY 30 Active Cheratussin AC 100-10 MG/5ML Orally every 8 hrs prn severe cough 5 ml Mar, Active Seroquel 100 MG Orally as needed twice a day 1 tablet 12h Feb, 30 day(s) Active Seroquel 300 MG Orally Once a day 1 tablet at bedtime 24h Feb, 30 day(s) Active Norvasc 5 MG Orally Once a day 1 tablet 24h Active Albuterol Sulfate (2.5 MG/3ML) 0.083% Inhalation Three times a day 3 ml 8h 1 months Active Hydrochlorothiazide 25 MG Orally Once a day 1 tablet 24h 30 Active Losartan Potassium 50 MG Orally Once a day 1 tablet 24h 30 Active Clonazepam 1 MG Orally once a day 1 tablet 24h Feb, 30 days Active Orphenadrine Citrate ER 100 MG Orally twice a day 1 tablet 12h May, Jun, 28 days Active Gabapentin 600 MG TAKE ONE TABLET BY MOUTH THREE TIMES DAILY 30 Active Clonidine HCl 0.1 MG TAKE ONE TABLET BY MOUTH THREE TIMES DAILY 30 Active Paxil 40 MG Orally Once a day 1 tablet in the morning 24h Apr, 30 days Active Nortriptyline HCl 50 MG Orally Once a day 1 capsule 24h 30 days Active Albuterol Sulfate HFA 108 (90 Base) MCG/ACT Inhalation every 4 hrs 2 puffs as needed 4h Active Sulfamethoxazole-Trimethoprim 800-160 MG 7 Active Cetirizine HCl 10 mg Orally Once a day 1 tablet 24h 30 Active Omeprazole 40 MG Orally Once a day 1 capsule 24h 30 Active Spiriva HandiHaler 18 MCG Inhalation Once a day as directed 24h Apr, Active PredniSONE 20 mg Orally Once a day 2 tab daily x 4 days then 1 daily x 4 days then 1/2 daily x 4 days 24h May, May, 12 days Active Symbicort 160-4.5 MCG/ACT Inhalation Twice a day 2 puffs 12h Nov, Active Lovastatin 20 mg Orally Once a day 1 tablet with a meal 24h 30 Active RESULTS No Results PROCEDURES Procedure Date Ordered Related Diagnosis Body Site MEASURE BLOOD OXYGEN LEVEL May 25, 2016 Office Visit, Est Pt., Level 4 May 25, 2016 THER/PROPH/DIAG INJ, SC/IM May 25, 2016 TORADOL (IM) 60 MG/2ML (UP TO 15 MG) May 25, 2016 IMMUNIZATIONS Vaccine Route Administration Date Status TORADOL (IM) 60 MG/2ML (UP TO 15 MG) ID Intradermal May 25, 2016 Administered
[2017-02-05 15:15] VITALS: BP 108/76
--- NOTE | 2017-03-18 17:39 | ED General ---
General Chief Complaint: General Problems/Pain Stated Complaint: OXYGEN AND BP LOW Nursing Triage Note: PT SENT HERE FROM [facility] DUE TO LOW BP. Nursing Sepsis Screen: No Definite Risk Source of Information: Patient, Other ([facility] infusion nurses) Exam Limitations: No Limitations History of Present Illness Time Seen by Provider: 17:34 Initial Comments [id number] white female presented to the emergency department on 02/05/17 at 1520 hours with a history of having had a hypotensive episode while in infusion therapy. The patient denies any significant symptoms with this episode. On arrival to the emergency department the patient was found to be awake and alert her vital signs temperature blood pressure 110/75, heart rate of 88, her sat was 95 percent on room air with respiratory rate is 16. As the patient was asymptomatic she was returned to infusion therapy. Allergies and Home Medications Allergies Coded Allergies: Penicillins (Unverified Allergy, Mild, 07/02/16) dimenhydrinate (Verified Allergy, Mild, 07/17/12) morphine (Unverified Allergy, Mild, RASH, 08/29/08) prochlorperazine (Unverified Allergy, Mild, 07/23/09) oxycodone (Unverified Allergy, Unknown, 05/14/10) Uncoded Allergies: ANTI-EMETICS (Allergy, Mild, 03/26/08) ANTI-NAUSEA MEDICATIONS EXCEPT DRAMAMINE (Allergy, Mild, MAKE HER HAVE ANXIETY ATTACKS, 08/29/08) ANTIEMETICS (Allergy, Mild, 12/09/08) NAUSEA MEDS (Allergy, Mild, 12/01/08) Home Medications Albuterol Sulfate 6.7 Gm Hfa.aer.ad, 2 PUFF INH Q4H PRN for SHORTNESS OF BREATH, (Reported) Amlodipine Besylate 5 Mg Tablet, 5 MG PO DAILY, (Reported) LAST FILLED #30 11-30-16 Aspirin/Acetaminophen/Caffeine 1 Each Tablet, 2 TAB PO DAILY PRN for MIGRAINE, ( Reported) Cetirizine HCl 10 Mg Tablet, 10 MG PO DAILY, (Reported) Clonazepam 0.5 Mg Tablet, 0.5 MG PO BID, (Reported) Clonidine HCl 0.1 Mg Tablet, 0.1 MG PO TID, (Reported) Gabapentin 600 Mg Tablet, 600 MG PO BID, (Reported) Hydroxyzine Pamoate 25 Mg Capsule, 25 MG PO BID, (Reported) Naproxen 500 Mg Tablet, 500 MG PO BID PRN for PAIN-MILD, (Reported) Omeprazole 40 Mg Capsule.dr, 40 MG PO DAILY PRN for HEARTBURN, (Reported) Ondansetron 8 Mg Tab.rapdis, 8 MG PO Q6H PRN for NAUSEA/VOMITING-1ST LINE, #10 Ref 0 Prescribed by: SOMMER DU on 02/09/17 1332 Paroxetine HCl 40 Mg Tablet, 40 MG PO HS, (Reported) Tizanidine HCl 4 Mg Tablet, 4 MG PO TID, (Reported) Trazodone HCl 100 Mg Tablet, 200 MG PO HS, (Reported) TAKES 2 (100MG) TABLETS Constitutional: No chills, No fever EENTM: no symptoms reported Respiratory: no symptoms reported Cardiovascular: no symptoms reported Gastrointestinal: no symptoms reported Genitourinary: no symptoms reported Musculoskeletal: no symptoms reported Skin: no symptoms reported Psychiatric/Neurological: No Symptoms Reported Hematologic/Lymphatic: No Symptoms Reported Past Onlxufg-Mdzuju-Dlplbe Hx Patient Social History Type Used: Cigarettes 2nd Hand Smoke Exposure: No Recent Foreign Travel: No Contact w/Someone Who Travel: No Recent Infectious Disease Expo: No Recent Hopitalizations: Yes (the end of december ) Immunizations Up To Date Tetanus Booster (TDap): Less than 5yrs PED Vaccines UTD: Yes Date of Pneumonia Vaccine: Jul 26, 2012 Date of Influenza Vaccine: Feb 13, 2014 Seasonal Allergies Seasonal Allergies: Yes Surgeries History of Surgeries: Yes (LUNG SURGERY FOR EMPYEMA, LEFT OVARIAN CYST REMOVAL ; HYST/BSO) Surgeries: Appendectomy, Section, Hysterectomy, Oophorectomy, Tonsillectomy Respiratory History of Respiratory Disorde: Yes (EMPYEMA--S/P LUNG SURGERY FOR REMOVAL) Respiratory Disorders: Asthma Currently Using CPAP: No Currently Using BIPAP: No Cardiovascular History of Cardiac Disorders: Yes Cardiac Disorders: Hypertension Neurological History of Neurological Disord: Yes Neurological Disorders: Seizure Disorder Reproductive System Hx Reproductive Disorders: Yes (MULTIPLE OVARIAN CYSTS. 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 Genitourinary History of Genitourinary Disor: No Gastrointestinal History of Gastrointestinal Di: Yes Gastrointestinal Disorders: Gastroesophageal Reflux, Irritable Bowel Musculoskeletal History of Musculoskeletal Dis: Yes Musculoskeletal Disorders: Degenerate Disk Disease, Chronic Back Pain Endocrine History of Endocrine Disorders: Yes (MORBID OBESTIY) HEENT History of HEENT Disorders: No Loss of Vision: Denies Hearing Impairment: Denies Cancer History of Cancer: No Psychosocial History of Psychiatric Problem: Yes Behavioral Health Disorders: Sleep Difficulties, Anxiety, Depression Integumentary History of Skin or Integumenta: Yes (hx of ABSCESSES, MULTIPLE WOUND INFECTIONS , STAPH) Blood Transfusions History of Blood Disorders: No Reviewed Nursing Assessment Reviewed/Agree w Nursing PMH: Yes Family Medical History Significant Family History: No Pertinent Family Hx Family Medial History: Diabetes mellitus 19 MOTHER Headache disorder G8 SISTER Myocardial infarction 19 MOTHER STROKE 19 MOTHER Physical Exam Vital Signs Capillary Refill : Less Than 3 Seconds General Appearance: No Apparent Distress, WD/WN Eyes: Bilateral Eye Normal Inspection HEENT: Normal ENT Inspection Neck: Normal Inspection Respiratory: Lungs Clear Cardiovascular: Regular Rate, Rhythm Gastrointestinal: Normal Bowel Sounds Extremity: Normal Inspection Neurologic/Psychiatric: Alert, No Motor/Sensory Deficits Skin: Normal Color, Warm/Dry Laceration Repair : Suture Size: 4-0 Progress/Results/Core Measures Results/Orders Blood Pressure Mean: 87 Progress Note : Time: 17:37 Progress Note Patient's vital signs are stable and the patient was awake and alert. She was asymptomatic from her apparent brief episode of hypotension. Patient was returned infusion therapy in stable condition. The dictation and creation this chart was done on 03/18/17 based on information available in the patient's chart from the nurses. Departure Impression Impression: Primary Impression: Hypotension, unspecified Qualified Codes: I95.9 - Hypotension, unspecified Disposition: ER SNF Condition: Stable Departure-Patient Inst. Decision time for Depature: 17:44 Referrals: [facility] (PCP) Primary Care Physician Add. Discharge Instructions: Come back for any problems or questions. All discharge instructions reviewed with patient and/or family. Voiced understanding. JORDAN THACKER MD Mar 18, 2017 17:39
== END 2017-02-05 15:26 ==
LOC: EDUNIT# 13:23 → ER 13:25
DX: R09.02 Hypoxemia (principal); R03.1 Nonspecific low blood-pressure reading
CPT/HCPCS: 99281

== ENCOUNTER 2017-02-09 11:08 | Emergency (ER) | payer MEDICAID ==
[~2017-02-09] VITALS: Ht 160 cm; Wt 90.7 kg
[2017-02-09] MEDS ORDERED: WATER (STERILE) FOR INJECTION 20 ML ONE (11:20)
--- OUTSIDE RECORDS SUMMARY | 2017-02-09 11:22 | XMS REPORT ---
Author Author LONNIE WIGGINS [facility] Address [address] [place] [address] Care Team Providers Care Graphic Design Assistant Name Role Phone LONNIE WIGGINS Unavailable PROBLEMS Type Condition ICD9-CM Code AEH78-QA Code Onset Dates Condition Status SNOMED Code Problem Edema R60.9 Active 575611507 Problem History of abnormal mammogram Z87.898 Active 367357324 Problem Generalized anxiety disorder F41.1 Active 34569376 Problem Violation of controlled substance agreement Z91.14 Active 200793991 Problem Right sided sciatica M54.31 Active 86946691 Problem Post-traumatic stress disorder, unspecified F43.10 Active 33771922 Problem Slow transit constipation K59.01 Active 14679232 Problem New onset seizure R56.9 Active 65597538 Problem 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
--- OUTSIDE RECORDS SUMMARY | 2017-02-09 11:24 | XMS REPORT ---
Author Author LONNIE WIGGINS [facility] Address [address] [place] [address] Care Team Providers Care Sawmill Equipment Operator Name Role Phone LONNIE WIGGINS Unavailable PROBLEMS Type Condition ICD9-CM Code EAD72-QE Code Onset Dates Condition Status SNOMED Code Problem Edema R60.9 Active 055116225 Problem History of abnormal mammogram Z87.898 Active 572218717 Problem Generalized anxiety disorder F41.1 Active 86215796 Problem Violation of controlled substance agreement Z91.14 Active 700431925 Problem Right sided sciatica M54.31 Active 48843336 Problem Post-traumatic stress disorder, unspecified F43.10 Active 66838889 Problem Slow transit constipation K59.01 Active 25027599 Problem New onset seizure R56.9 Active 50988466 Problem 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 Active 081396101 Problem Essential (primary) hypertension I10 Active 10455578 Problem Self mutilating behavior Z72.89 Active 877832696 Problem GERD (gastroesophageal reflux disease) K21.9 Active 431710394 Problem Heartburn R12 Active 28961676 Problem Neuropathy, idiopathic G60.9 Active 50808631 Problem Essential hypertension I10 Active 77574861 ALLERGIES No Information SOCIAL HISTORY Never Assessed PLAN OF CARE VITAL SIGNS MEDICATIONS Medication Instructions Dosage Frequency Start Date End Date Duration Status Gabapentin 600 MG 1 tablet 12h 30 Active RESULTS No Results PROCEDURES No [...] 08/2014 Hospitalization History Rt hand post op infection-[facility] 07/25/16 Hospitalization History cellulitus Right elbow-[facility] 12/09/16
[2017-02-09] MEDS ORDERED: ZIPRASIDONE 20 MG INJ (GEODON) VIAL IM ONE (11:30)
--- NOTE | 2017-02-09 12:12 | ED Psychosocial ---
General Chief Complaint: Psych/Social Disorder Stated Complaint: PANIC ATTACK Nursing Triage Note: ARRIVED VIA EMS FROM HOME. CRYING, HYPERVENTALATING, ET STATES SHE CAN NOT BREATHE. STATES SHE WOKE UP THIS AM. RECIEVES DAILY IV ANTIBIOTICS AT THIS HOSPITAL FOR AN INFECTION IN HER ARM. Source: patient Exam Limitations: no limitations History of Present Illness Time seen by provider: 12:12 Initial Comments 47-year-old female patient presents to the emergency department via [facility] from home. Patient is crying and hysterical. Patient is noted to be hyperventilating. Patient was given 1 dose of Geodon with improvement in symptoms. On this examiner entering the room patient is lying on her left side covered up with a blanket from home. Patient is awake, but initially refuses to answer questions or follow instructions. I asked Cande to roll onto her back so that I could examine her. After repeating the instruction patient sighs and rolls onto her back. When asked if she is feeling better after the medicine, she states "No, not really." Patient is currently receiving IV antibiotics at [facility] for an infection in the right forearm. Patient states she did not take her Klonopin today at home for her anxiety and states "I just didn't feel like it." Patient has had previous ED visits with similar complaints of anxiety and patient reporting not taking her home anxiolytic medications. Patient denies suicidal or homicidal ideation. Now reports 1 wk of yellow watery diarrhea and has had "too may stools today to count." Also c/o N/V with the antibiotic. Timing/Duration: this morning, other (improved with geodon) Associated Symptoms: anxiety Allergies and Home Medications Allergies Coded Allergies: Penicillins (Unverified Allergy, Mild, 07/02/16) dimenhydrinate (Verified Allergy, Mild, 07/17/12) morphine (Unverified Allergy, Mild, RASH, 08/29/08) prochlorperazine (Unverified Allergy, Mild, 07/23/09) oxycodone (Unverified Allergy, Unknown, 05/14/10) Uncoded Allergies: ANTI-EMETICS (Allergy, Mild, 03/26/08) ANTI-NAUSEA MEDICATIONS EXCEPT DRAMAMINE (Allergy, Mild, MAKE HER HAVE ANXIETY ATTACKS, 08/29/08) ANTIEMETICS (Allergy, Mild, 12/09/08) NAUSEA MEDS (Allergy, Mild, 12/01/08) Home Medications Albuterol Sulfate 6.7 Gm Hfa.aer.ad, 2 PUFF INH Q4H PRN for SHORTNESS OF BREATH, (Reported) Amlodipine Besylate 5 Mg Tablet, 5 MG PO DAILY, (Reported) LAST FILLED #30 11-30-16 Aspirin/Acetaminophen/Caffeine 1 Each Tablet, 2 TAB PO DAILY PRN for MIGRAINE, ( Reported) Cetirizine HCl 10 Mg Tablet, 10 MG PO DAILY, (Reported) Clonazepam 0.5 Mg Tablet, 0.5 MG PO BID, (Reported) Clonidine HCl 0.1 Mg Tablet, 0.1 MG PO TID, (Reported) Gabapentin 600 Mg Tablet, 600 MG PO BID, (Reported) Hydroxyzine Pamoate 25 Mg Capsule, 25 MG PO BID, (Reported) Naproxen 500 Mg Tablet, 500 MG PO BID PRN for PAIN-MILD, (Reported) Omeprazole 40 Mg Capsule.dr, 40 MG PO DAILY PRN for HEARTBURN, (Reported) Ondansetron 8 Mg Tab.rapdis, 8 MG PO Q6H PRN for NAUSEA/VOMITING-1ST LINE, #10 Ref 0 Prescribed by: SOMMER DU on 02/09/17 1332 Paroxetine HCl 40 Mg Tablet, 40 MG PO HS, (Reported) Tizanidine HCl 4 Mg Tablet, 4 MG PO TID, (Reported) Trazodone HCl 100 Mg Tablet, 200 MG PO HS, (Reported) TAKES 2 (100MG) TABLETS Constitutional: No chills, No dizziness, No fever, No malaise EENTM: no symptoms reported Respiratory: No cough, No dyspnea on exertion, No orthopnea, No phlegm, short of breath ((pt initially hyperventilating and reporting that she couldn't breath )) Cardiovascular: No chest pain, No palpitations, No syncope Gastrointestinal: see HPI, abdominal pain (generalized abdominal cramping.), No constipation, diarrhea, loss of appetite, nausea, vomiting Genitourinary: No decreased output, No dysuria, No frequency, No hematuria Musculoskeletal: no symptoms reported Skin: no symptoms reported Psychiatric/Neurological: See HPI, Anxiety, Denies Headache, Denies Numbness, Denies Paresthesia, Denies Seizure, Denies Tingling, Denies Weakness All Other Systems Reviewed Negative Unless Noted: Yes (Negative excepted noted.) Past Gykazti-Bqskzr-Dhhxxw Hx Patient Social History Recreational Drug Use: No Type Used: Cigarettes 2nd Hand Smoke Exposure: No Recent Foreign Travel: No Contact w/Someone Who Travel: No Recent Infectious Disease Expo: No Recent Hopitalizations: Yes (january 2017 cellulitis rt arm) Immunizations Up To Date Tetanus Booster (TDap): Less than 5yrs PED Vaccines UTD: Yes Date of Pneumonia Vaccine: Jul 26, 2012 Date of Influenza Vaccine: Feb 13, 2014 Seasonal Allergies Seasonal Allergies: Yes Surgeries History of Surgeries: Yes ( arm surgery x 2 this month, ) Surgeries: Appendectomy, Section, Hysterectomy, Oophorectomy, Tonsillectomy Respiratory History of Respiratory Disorde: Yes (EMPYEMA--S/P LUNG SURGERY FOR REMOVAL) Respiratory Disorders: Asthma Currently Using CPAP: No Currently Using BIPAP: No Cardiovascular History of Cardiac Disorders: Yes Cardiac Disorders: Hypertension Neurological History of Neurological Disord: Yes Neurological Disorders: Seizure Disorder Reproductive System Hx Reproductive Disorders: Yes (MULTIPLE OVARIAN CYSTS. 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 Genitourinary History of Genitourinary Disor: No Gastrointestinal History of Gastrointestinal Di: Yes Gastrointestinal Disorders: Gastroesophageal Reflux, Irritable Bowel Musculoskeletal History of Musculoskeletal Dis: Yes Musculoskeletal Disorders: Degenerate Disk Disease, Chronic Back Pain Endocrine History of Endocrine Disorders: Yes (MORBID OBESTIY) HEENT History of HEENT Disorders: No Loss of Vision: Denies Hearing Impairment: Denies Cancer History of Cancer: No Psychosocial History of Psychiatric Problem: Yes Behavioral Health Disorders: Sleep Difficulties, Anxiety, Depression Integumentary History of Skin or Integumenta: Yes (hx of ABSCESSES, MULTIPLE WOUND INFECTIONS , STAPH) Blood Transfusions History of Blood Disorders: No Reviewed Nursing Assessment Reviewed/Agree w Nursing PMH: Yes Family Medical History Significant Family History: No Pertinent Family Hx Family Medial History: Diabetes mellitus 19 MOTHER Headache disorder G8 SISTER Myocardial infarction 19 MOTHER STROKE 19 MOTHER Physical Exam Vital Signs Vital Sign - Last 12Hours 02/09/17 11:10 Temp 98.0 Pulse 59 Resp 22 B/P (MAP) 130/108 Pulse Ox 99 Capillary Refill : Less Than 3 Seconds General Appearance: WD/WN, no apparent distress, obese HEENT: PERRL/EOMI, pharynx normal Neck: non-tender, supple, normal inspection Respiratory: lungs clear, normal breath sounds, no respiratory distress, no accessory muscle use Cardiovascular: normal peripheral pulses, regular rate, rhythm, no murmur Peripheral Pulses: 2+ Dorsalis Pedis (R), 2+ Left Dors-Pedis (L), 2+ Radial Pulses (R), 2+ Radial Pulses (L) Gastrointestinal: normal bowel sounds, soft, no organomegaly, No distended, No guarding, No rebound, tenderness (mild generalized tenderness.) Extremities: normal capillary refill Neurologic/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: 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 Minimal serous drainage noted on the wound dressing.) Laceration Repair : Suture Size: 4-0 Progress/Results/Core Measures Results/Orders Lab Results Laboratory Tests Test 02/09/17 12:50 02/09/17 12:55 Range/Units White Blood Count 6.5 4.3-11.0 10^3/uL Red Blood Count 4.33 L 4.35-5.85 10^6/uL Hemoglobin 8.9 L 11.5-16.0 G/DL Hematocrit 31 L 35-52 % Mean Corpuscular Volume 72 L 80-99 FL Mean Corpuscular Hemoglobin 21 L 25-34 PG Mean Corpuscular Hemoglobin Concent 29 L 32-36 G/DL Red Cell Distribution Width 18.3 H 10.0-14.5 % Platelet Count 327 130-400 10^3/uL Mean Platelet Volume 10.0 7.4-10.4 FL Neutrophils (%) (Auto) 67 42-75 % Lymphocytes (%) (Auto) 20 12-44 % Monocytes (%) (Auto) 10 0-12 % Eosinophils (%) (Auto) 1 0-10 % Basophils (%) (Auto) 1 0-10 % Neutrophils # (Auto) 4.4 1.8-7.8 X 10^3 Lymphocytes # (Auto) 1.3 1.0-4.0 X 10^3 Monocytes # (Auto) 0.7 0.0-1.0 X 10^3 Eosinophils # (Auto) 0.1 0.0-0.3 10^3/uL Basophils # (Auto) 0.1 0.0-0.1 10^3/uL Sodium Level 141 135-145 MMOL/L Potassium Level 3.5 L 3.6-5.0 MMOL/L Chloride Level 111 H 98-107 MMOL/L Carbon Dioxide Level 22 21-32 MMOL/L Anion Gap 8 5-14 MMOL/L Blood Urea Nitrogen 6 L 7-18 MG/DL Creatinine 0.65 0.60-1.30 MG/DL Estimat Glomerular Filtration Rate > 60 BUN/Creatinine Ratio 9 Glucose Level 112 H 70-105 MG/DL Calcium Level 8.7 8.5-10.1 MG/DL Total Bilirubin 0.5 0.1-1.0 MG/DL Aspartate Amino Transf (AST/SGOT) 13 5-34 U/L Alanine Aminotransferase (ALT/SGPT) 10 0-55 U/L Alkaline Phosphatase 87 40-136 U/L Total Protein 6.4 6.4-8.2 GM/DL Albumin 3.2 3.2-4.5 GM/DL Urine Color YELLOW Urine Clarity CLEAR Urine pH 7 5-9 Urine Specific [place] 1.005 L 1.016-1.022 Urine Protein NEGATIVE NEGATIVE Urine Glucose (UA) NEGATIVE NEGATIVE Urine Ketones NEGATIVE NEGATIVE Urine Nitrite NEGATIVE NEGATIVE Urine Bilirubin NEGATIVE NEGATIVE Urine Urobilinogen NORMAL NORMAL MG/DL Urine Leukocyte Esterase NEGATIVE NEGATIVE Urine RBC (Auto) NEGATIVE NEGATIVE Urine RBC NONE /HPF Urine WBC NONE /HPF Urine Squamous Epithelial Cells RARE /HPF Urine Crystals NONE /LPF Urine Bacteria NEGATIVE /HPF Urine Casts NONE /LPF Urine Mucus NEGATIVE /LPF Urine Culture Indicated NO My Orders Orders - SOMMER DU Cbc With Automated Diff (02/09/17 12:30) Comprehensive Metabolic Panel (02/09/17 12:30) Ua Culture If Indicated (02/09/17 12:30) Ondansetron Injection (Zofran Injectio (02/09/17 12:30) Ns Iv 1000 Ml (Sodium Chloride 0.9%) (02/09/17 12:30) Medications Given in ED Current Medications Medications Dose Ordered Sig/Jesus Route Start Time Stop Time Status Last Admin Dose Admin Ondansetron HCl 4 mg ONCE ONCE IVP 02/09/17 12:30 02/09/17 12:32 DC 02/09/17 12:50 4 MG Sodium Chloride 1,000 ml @ 0 mls/hr Q0M ONCE IV 02/09/17 12:30 02/09/17 12:32 DC 02/09/17 12:50 1,000 MLS/HR Sterile Water 20 ml @ ud STK-MED ONCE .ROUTE 02/09/17 11:20 02/09/17 11:28 DC 02/09/17 11:32 1.2 MLS/HR Ziprasidone 20 mg ONCE ONCE IM 02/09/17 11:30 02/09/17 11:31 DC 02/09/17 11:32 20 MG Vital Signs/I&O Vital Sign - Last 12Hours 02/09/17 11:10 Temp 98.0 Pulse 59 Resp 22 B/P (MAP) 130/108 Pulse Ox 99 Blood Pressure Mean: 115 Departure Communication (Admissions) Progress Notes Patient seen and evaluated. Patient was given 20 mg of Geodon and 4 mg of Zofran in the emergency department with improvement in symptoms. I discussed all laboratory findings with the patient. Plan for discharge to home with follow-up as an outpatient at [facility] in the next 1-2 days. She is to call today for appointment time. Patient was given a order for outpatient stool cultures and she'll follow-up with her PCP for the results. Impression Impression: Primary Impression: Anxiety attack Additional Impression: Nausea, vomiting, and diarrhea Disposition: HOME, SELF-CARE Condition: Improved Departure-Patient Inst. Decision time for Depature: 13:31 Referrals: [facility] [place] ([place]/Family) Primary Care Physician Patient Instructions: Antibiotic-Associated Diarrhea (DC), Anxiety, Adult (DC) Add. Discharge Instructions: All discharge instructions reviewed with patient and/or family. Voiced understanding. Medications as instructed. Take medications as prescribed by your family practitioner including your Klonopin. Clear liquid diet until symptoms improve, then increase diet slowly to a low-fat , bland diet. Follow-up with your family practitioner tomorrow or Michael for recheck and discussion of possibly needing to change IV antibiotics. Call today for appointment time. Return to the emergency department for worsened symptoms or any other concerns. Scripts Ondansetron (Ondansetron Odt) 8 Mg Tab.rapdis 8 MG PO Q6H Y for NAUSEA/VOMITING-1ST LINE, #10 TAB 0 Refills Prov: SOMMER DU 02/09/17 SOMMER DU Feb 09, 2017 12:12
[2017-02-09] MEDS ORDERED: NS IV 1000 ML 1,000 ML IV ONE (12:30)
[2017-02-09] MEDS ORDERED: ONDANSETRON 4 MG/2 ML (SDV) Z0FRAN IVP ONE (12:30)
[2017-02-09 13:00] LABS: BASOPHILS # (AUTO) 0.1 10^3/uL (0.0-0.1); BASOPHILS % (AUTO) 1 % (0-10); EOSINOPHILS # (AUTO) 0.1 10^3/uL (0.0-0.3); EOSINOPHILS % (AUTO) 1 % (0-10); LYMPHOCYTES # (AUTO) 1.3 X 10^3 (1.0-4.0); LYMPHOCYTES % (AUTO) 20 % (12-44); MEAN CORPUSCULAR HEMOGLOBIN 21 PG (25-34); MEAN CORPUSCULAR HGB CONC 29 G/DL (32-36); MEAN CORPUSCULAR VOLUME 72 FL (80-99); MONOCYTES # (AUTO) 0.7 X 10^3 (0.0-1.0); MONOCYTES % (AUTO) 10 % (0-12); NEUTROPHILS # (AUTO) 4.4 X 10^3 (1.8-7.8); NEUTROPHILS % (AUTO) 67 % (42-75); PLATELET COUNT 327 10^3/uL (130-400); RED BLOOD COUNT 4.33 10^6/uL (4.35-5.85); RED CELL DISTRIBUTION WIDTH 18.3 % (10.0-14.5); WHITE BLOOD COUNT 6.5 10^3/uL (4.3-11.0)
[2017-02-09 13:01] LABS: BILIRUBIN,URINE NEGATIVE (NEGATIVE); KETONES,URINE NEGATIVE (NEGATIVE); LEUKOCYTE ESTERASE ,URINE NEGATIVE (NEGATIVE); NITRITE,URINE NEGATIVE (NEGATIVE); PH,URINE 7 (5-9); PROTEIN,URINE NEGATIVE (NEGATIVE); UROBILINOGEN,URINE NORMAL (NORMAL)
[2017-02-09 13:09] LABS: SQUAMOUS EPITHELIAL CELL,UR RARE /HPF
[2017-02-09 13:18] LABS: ALANINE AMINOTRANSFERASE 10 U/L (0-55); ALBUMIN 3.2 GM/DL (3.2-4.5); ANION GAP 8 MMOL/L (5-14); ASPARTATE AMINO TRANSFERASE 13 U/L (5-34); BILIRUBIN,TOTAL 0.5 MG/DL (0.1-1.0); BLOOD UREA NITROGEN 6 MG/DL (7-18); BUN/CREATININE RATIO 9; CALCIUM 8.7 MG/DL (8.5-10.1); CARBON DIOXIDE 22 MMOL/L (21-32); CHLORIDE 111 MMOL/L (98-107); CREATININE SERUM 0.65 MG/DL (0.60-1.30); GFR ESTIMATED > 60; GLUCOSE 112 MG/DL (70-105); POTASSIUM 3.5 MMOL/L (3.6-5.0); SODIUM 141 MMOL/L (135-145); TOTAL PROTEIN 6.4 GM/DL (6.4-8.2)
[2017-02-09] MEDS ORDERED: ONDA8TAB13 PO (13:32)
[2017-02-09 13:51] VITALS: BP 156/76
== END 2017-02-09 13:51 | disposition home or self-care (01) ==
LOC: EDUNIT# 11:08 → ER 11:09
DX: F41.0 Panic disorder [episodic paroxysmal anxiety] (principal); R11.2 Nausea with vomiting, unspecified; R19.7 Diarrhea, unspecified; F32.9 Major depressive disorder, single episode, unspecified; E66.9 Obesity, unspecified; M47.9 Spondylosis, unspecified; K21.9 Gastro-esophageal reflux disease without esophagitis; J45.909 Unspecified asthma, uncomplicated; I10 Essential (primary) hypertension; G40.909 Epilepsy, unspecified, not intractable, without status epilepticus; Z90.710 Acquired absence of both cervix and uterus; Z90.49 Acquired absence of other specified parts of digestive tract; Z87.59 Personal history of other complications of pregnancy, childbirth and the puerperium; Z90.89 Acquired absence of other organs; Z87.42 Personal history of other diseases of the female genital tract; Z68.35 Body mass index [BMI] 35.0-35.9, adult
CPT/HCPCS: 36415; 80053; 81000; 85025; 87045; 87046; 87324; 87449; 96361; 96372; 96374; 99284

== ENCOUNTER 2017-02-11 11:35 | Outpatient (RCR) | payer MEDICAID ==
[2017-02-05 16:06] VITALS: BP 88/60
[2017-02-05] MEDS: DAPTOmycin 500 MG/NS 50 ML IVPB IV SCH ×2 (16:13)
[2017-02-05 16:47] VITALS: BP 88/60
[2017-02-08] MEDS: CATHETER FLUSH 10 ML SYR IV PRN ×2 (11:40→12:07)
[2017-02-08] MEDS: DAPTOmycin 500 MG/NS 50 ML IVPB IV SCH ×2 (11:40)
[2017-02-08 12:36] VITALS: BP 164/85
[2017-02-09] MEDS: DAPTOmycin 500 MG/NS 50 ML IVPB IV SCH ×2 (14:10)
[2017-02-09 14:40] VITALS: BP 158/74
[2017-02-10 11:30] VITALS: BP 161/99
[2017-02-10] MEDS: DAPTOmycin 500 MG/NS 50 ML IVPB IV SCH ×2 (11:45)
[2017-02-10] MEDS: CATHETER FLUSH 10 ML SYR IV PRN (11:46)
[2017-02-10 12:28] VITALS: BP 161/99
[~2017-02-11] VITALS: Ht 167.6 cm; Wt 116.6 kg
[~2017-02-11 11:35] MED LIST changes: -ASPI-789 PO; +ASPI1TAB22 PO; -NAPR-1070 PO; +NAPR500T3 PO; -NAPR500T4 PO; +NAPR550T PO; +ONDA8TAB13 PO
[2017-02-11] MEDS: DAPTOmycin 500 MG/NS 50 ML IVPB IV SCH ×2 (11:51)
[2017-02-11] MEDS: CATHETER FLUSH 10 ML SYR IV PRN ×2 (11:51→12:20)
[2017-02-11 12:21] VITALS: BP 161/84
[2017-02-12 12:00] VITALS: BP 170/88
[2017-02-12] MEDS: CATHETER FLUSH 10 ML SYR IV PRN (12:27)
[2017-02-12] MEDS: DAPTOmycin 500 MG/NS 50 ML IVPB IV SCH ×2 (12:27)
== END 2017-02-12 | disposition home or self-care (01) ==
LOC: 4TH RCR 11:35
PROVIDERS: ATTEND Family Medicine
DX: L03.313 Cellulitis of chest wall (principal)
CPT/HCPCS: 96365; 99211

== ENCOUNTER 2017-02-14 12:19 | Outpatient (RCR) | payer SELFPAY ==
[2017-02-13] MEDS: CATHETER FLUSH 10 ML SYR IV PRN ×2 (09:44→10:18)
[2017-02-13] MEDS: DAPTOmycin 500 MG/NS 50 ML IVPB IV SCH ×2 (09:45)
[2017-02-13 10:20] VITALS: BP 174/87
[~2017-02-14] VITALS: Ht 167.6 cm; Wt 116.6 kg
[~2017-02-14 12:19] MED LIST changes: +ASPI-789 PO; -ASPI1TAB22 PO; -HYDR-3812 PO; +NAPR-1070 PO; -NAPR500T3 PO; +NAPR500T4 PO; -NAPR550T PO
[2017-02-14] MEDS: CATHETER FLUSH 10 ML SYR IV PRN (12:30)
[2017-02-14] MEDS: DAPTOmycin 500 MG/NS 50 ML IVPB IV SCH ×2 (12:30)
[2017-02-14 12:43] VITALS: BP 174/92
== END 2017-05-14 | disposition home or self-care (01) ==
LOC: SDC 12:19
PROVIDERS: ATTEND Family Medicine
DX: L03.313 Cellulitis of chest wall (principal)
CPT/HCPCS: 96365

== ENCOUNTER 2017-06-20 15:55 | Emergency (ER) | payer SELFPAY ==
[~2017-06-20] VITALS: Ht 167.6 cm; Wt 99.8 kg
--- OUTSIDE RECORDS SUMMARY | 2017-06-20 16:08 | XMS REPORT ---
Author Author LONNIE WIGGINS [facility] Address [address] [place] [address] Care Team Providers Care Provider Engagement Executive Name Role Phone LONNIE WIGGINS Unavailable PROBLEMS Type Condition ICD9-CM Code [id number] Code Onset Dates Condition Status SNOMED Code Problem Edema R60.9 Active 899933487 Problem History of abnormal mammogram Z87.898 Active 019759882 Problem Generalized anxiety disorder F41.1 Active 18162275 Problem Violation of controlled substance agreement Z91.14 Active 316032967 Problem Right sided sciatica M54.31 Active 10464494 Problem Post-traumatic stress disorder, unspecified F43.10 Active 92481874 Problem Slow transit constipation K59.01 Active 79611005 Problem New onset seizure R56.9 Active 83485162 Problem 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 Active 756529066 Problem Essential (primary) hypertension I10 Active 67340877 Problem Self mutilating behavior Z72.89 Active 414681810 Problem GERD (gastroesophageal reflux disease) K21.9 Active 547145230 Problem Heartburn R12 Active 30788425 Problem Neuropathy, idiopathic G60.9 Active 75644734 Problem Essential hypertension I10 Active 68866417 ALLERGIES Substance Reaction Event Type Date Status Compazine anger Drug Allergy Jul, Active Rocephin thick tongue Drug Allergy Jul, Active Phenergan shortness of breath Drug Allergy Jul, Active Penicillin V Potassium Unknown Drug Allergy Jul, Active Morphine Sulfate hives Drug Allergy Jul, Active mushrooms Unknown Non Drug Allergy Jul, Active SOCIAL HISTORY Never Assessed PLAN OF CARE Activity Details Follow Up as needed or regular follow up Reason: VITAL SIGNS Height 66 in 2016-07-29 Weight 300.5 lbs 2016-07-29 Temperature 97.6 degrees Fahrenheit 2016-07-29 Heart Rate 90 bpm 2016-07-29 Respiratory Rate 20 2016-07-29 BMI 48.50 kg/m2 2016-07-29 Blood pressure systolic 134 mmHg 2016-07-29 Blood pressure diastolic 89 mmHg 2016-07-29 MEDICATIONS Medication Instructions Dosage Frequency Start Date End Date Duration Status Baclofen 20 mg Orally 2 times a day 1 tablet with food or milk 12h Jul, Jul, 28 days Active Hydrochlorothiazide 25 MG Orally Once a day 1 tablet 24h 30 Active Paxil 40 mg Orally Once a day 1 tablet in the morning 24h Apr, 30 days Active Clonazepam 0.5 MG Orally Twice a day 1 tablet in the AM and 1 tab in the evening 12h 26 Feb, 2016 30 days Active Clonidine HCl 0.1 MG TAKE ONE TABLET BY MOUTH THREE TIMES DAILY 30 Active Amlodipine Besylate 5 MG TAKE ONE TABLET BY MOUTH DAILY 30 Active Naproxen 500 MG Orally every 12 hrs 1 tablet as needed 12h 30 days Active Albuterol Sulfate HFA 108 (90 Base) MCG/ACT Inhalation every 4 hrs 2 puffs as needed 4h Active Flagyl 500 MG Orally every 8 hrs 1 tablet 8h Jul, Jul, Active Omeprazole 40 MG Orally Once a day 1 capsule 24h 30 Active Cetirizine HCl 10 mg Orally Once a day 1 tablet 24h 30 Active Lovastatin 20 mg Orally Once a day 1 tablet with a meal 24h 30 Active Levofloxacin 750 MG Orally Once a day 1 tablet 24h Jul, Jul, Active Naproxen 500 MG Orally every 12 hrs 1 tablet as needed 12h Active RESULTS No Results PROCEDURES No Known [...] 08/2014 Hospitalization History Rt hand post op infection-[facility] 07/25/16 Hospitalization History cellulitus Right elbow-[facility] 12/09/16
--- OUTSIDE RECORDS SUMMARY | 2017-06-20 16:09 | XMS REPORT ---
Author Author LONNIE WIGGINS [facility] Address [address] [place] [address] Care Team Providers Care Traffic Worker Name Role Phone LONNIE WIGGINS Unavailable PROBLEMS Type Condition ICD9-CM Code CXV94-CD Code Onset Dates Condition Status SNOMED Code Problem Edema R60.9 Active 564969618 Problem History of abnormal mammogram Z87.898 Active 233176170 Problem Generalized anxiety disorder F41.1 Active 81609228 Problem Violation of controlled substance agreement Z91.14 Active 433310950 Problem Right sided sciatica M54.31 Active 18751244 Problem Post-traumatic stress disorder, unspecified F43.10 Active 03226127 Problem Slow transit constipation K59.01 Active 87619527 Problem New onset seizure R56.9 Active 65071054 Problem 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 Active 195691887 Problem Essential (primary) hypertension I10 Active 56757340 Problem Self mutilating behavior Z72.89 Active 004855469 Problem GERD (gastroesophageal reflux disease) K21.9 Active 975086086 Problem Heartburn R12 Active 32035994 Problem Neuropathy, idiopathic G60.9 Active 57686269 Problem Essential hypertension I10 Active 10766770 ALLERGIES Substance Reaction Event Type Date Status Compazine anger Drug Allergy Jun, Active Rocephin thick tongue Drug Allergy Jun, Active Phenergan shortness of breath Drug Allergy Jun, Active Penicillin V Potassium Unknown Drug Allergy Jun, Active Morphine Sulfate hives Drug Allergy Jun, Active mushrooms Unknown Non Drug Allergy Jun, Active SOCIAL HISTORY Never Assessed PLAN OF CARE Activity Details Follow Up wound care Reason: VITAL SIGNS Height 66 in 2016-07-08 Weight 310.5 lbs 2016-07-08 Temperature 99.1 degrees Fahrenheit 2016-07-08 Heart Rate 96 bpm 2016-07-08 Respiratory Rate 24 2016-07-08 BMI 50.11 kg/m2 2016-07-08 Blood pressure systolic 130 mmHg 2016-07-08 Blood pressure diastolic 78 mmHg 2016-07-08 MEDICATIONS Medication Instructions Dosage Frequency Start Date End Date Duration Status Norvasc 5 MG Orally Once a day 1 tablet 24h Active Cetirizine HCl 10 mg Orally Once a day 1 tablet 24h 30 Active Albuterol Sulfate (2.5 MG/3ML) 0.083% Inhalation Three times a day 3 ml 8h 1 months Active Meloxicam 15 MG TAKE ONE TABLET BY MOUTH ONCE DAILY 30 Active Clonidine HCl 0.1 MG TAKE ONE TABLET BY MOUTH THREE TIMES DAILY 30 Active Seroquel 300 MG Orally Once a day 1 tablet at bedtime 24h Feb, Active Gabapentin 600 MG 1 tablet 12h 30 Active Omeprazole 40 MG Orally Once a day 1 capsule 24h 30 Active Mobic 15 MG Orally Once a day 1 tablet 24h 30 Active Orphenadrine Citrate ER 100 mg Orally twice a day 1 tablet 12h Jun, Jul, 28 days Active Tylenol/Codeine #3 300-30 MG Orally 3 times a day prn 1 tablet as needed Jun, Jul, 10 days Active Lovastatin 20 mg Orally Once a day 1 tablet with a meal 24h 30 Active Albuterol Sulfate HFA 108 (90 Base) MCG/ACT Inhalation every 4 hrs 2 puffs as needed 4h Active Paxil 40 mg Orally Once a day 1 tablet in the morning 24h Apr, 30 days Active Hydrochlorothiazide 25 MG Orally Once [...] 08/2014 Hospitalization History Rt hand post op infection-[facility] 07/25/16 Hospitalization History cellulitus Right elbow-[facility] 12/09/16
--- OUTSIDE RECORDS SUMMARY | 2017-06-20 16:09 | XMS REPORT ---
Author Author LONNIE WIGGINS [facility] Address [address] [place] [address] Care Team Providers Care Chute Builder Name Role Phone LONNIE WIGGINS Unavailable PROBLEMS Type Condition ICD9-CM Code TTL05-MW Code Onset Dates Condition Status SNOMED Code Problem Edema R60.9 Active 613163917 Problem History of abnormal mammogram Z87.898 Active 931289486 Problem Generalized anxiety disorder F41.1 Active 56405174 Problem Violation of controlled substance agreement Z91.14 Active 619230088 Problem Right sided sciatica M54.31 Active 72687645 Problem Post-traumatic stress disorder, unspecified F43.10 Active 26199339 Problem Slow transit constipation K59.01 Active 60017932 Problem New onset seizure R56.9 Active 86123083 Problem 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
--- OUTSIDE RECORDS SUMMARY | 2017-06-20 16:12 | XMS REPORT ---
Author Author LONNIE WIGGINS [facility] Address [address] [place] [address] Care Team Providers Care Micro Paleontologist Name Role Phone LONNIE WIGGINS Unavailable PROBLEMS Type Condition ICD9-CM Code EMF18-WO Code Onset Dates Condition Status SNOMED Code Problem Edema R60.9 Active 258985718 Problem History of abnormal mammogram Z87.898 Active 417241801 Problem Generalized anxiety disorder F41.1 Active 46291900 Problem Violation of controlled substance agreement Z91.14 Active 056198586 Problem Right sided sciatica M54.31 Active 71203224 Problem Post-traumatic stress disorder, unspecified F43.10 Active 53048644 Problem Slow transit constipation K59.01 Active 88600880 Problem New onset seizure R56.9 Active 12474049 Problem 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 07/25/16 Hospitalization History cellulitus Right elbow-[facility] 12/09/16
--- OUTSIDE RECORDS SUMMARY | 2017-06-20 16:12 | XMS REPORT ---
Author Author LONNIE WIGGINS [facility] Address [address] [place] [address] Care Team Providers Care Elevator Erector Helper Name Role Phone LONNIE WIGGINS Unavailable PROBLEMS Type Condition ICD9-CM Code RWS27-GU Code Onset Dates Condition Status SNOMED Code Problem Edema R60.9 Active 061734993 Problem History of abnormal mammogram Z87.898 Active 295973180 Problem Generalized anxiety disorder F41.1 Active 26716604 Problem Violation of controlled substance agreement Z91.14 Active 284295963 Problem Right sided sciatica M54.31 Active 59816512 Problem Post-traumatic stress disorder, unspecified F43.10 Active 82791453 Problem Slow transit constipation K59.01 Active 85458297 Problem New onset seizure R56.9 Active 40320069 Problem 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 Active 198930961 Problem Essential (primary) hypertension I10 Active 03732881 Problem Self mutilating behavior Z72.89 Active 258363641 Problem GERD (gastroesophageal reflux disease) K21.9 Active 438485324 Problem Heartburn R12 Active 21564217 Problem Neuropathy, idiopathic G60.9 Active 56806535 Problem Essential hypertension I10 Active 45771436 ALLERGIES No Information SOCIAL HISTORY Never Assessed PLAN OF CARE VITAL SIGNS MEDICATIONS No Known Medications RESULTS No Results PROCEDURES No Known [...] 08/2014 Hospitalization History Rt hand post op infection-[facility] 07/25/16 Hospitalization History cellulitus Right elbow-[facility] 12/09/16
--- OUTSIDE RECORDS SUMMARY | 2017-06-20 16:12 | XMS REPORT ---
Author Author LONNIE WIGGINS [facility] Address [address] [place] [address] Care Team Providers Care Air Cargo Specialist Supervisor Name Role Phone LONNIE WIGGINS Unavailable PROBLEMS Type Condition ICD9-CM Code ZQA01-FI Code Onset Dates Condition Status SNOMED Code Problem Edema R60.9 Active 346892665 Problem History of abnormal mammogram Z87.898 Active 574710656 Problem Generalized anxiety disorder F41.1 Active 27228081 Problem Violation of controlled substance agreement Z91.14 Active 980235772 Problem Right sided sciatica M54.31 Active 47710240 Problem Post-traumatic stress disorder, unspecified F43.10 Active 97539757 Problem Slow transit constipation K59.01 Active 57842646 Problem New onset seizure R56.9 Active 57770887 Problem 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 Active 342271606 Problem Essential (primary) hypertension I10 Active 77343922 Problem Self mutilating behavior Z72.89 Active 948254195 Problem GERD (gastroesophageal reflux disease) K21.9 Active 035449669 Problem Heartburn R12 Active 63667898 Problem Neuropathy, idiopathic G60.9 Active 75920656 Problem Essential hypertension I10 Active 43290279 ALLERGIES No Information SOCIAL HISTORY Never Assessed PLAN OF CARE VITAL SIGNS MEDICATIONS Medication Instructions Dosage Frequency Start Date End Date Duration Status Hydrocodone-Acetaminophen 7.5-325 MG Orally 3 times a day 1 tablet as needed 8h Jul, Jul, 14 days Active RESULTS No Results PROCEDURES No [...] 08/2014 Hospitalization History Rt hand post op infection-[facility] 07/25/16 Hospitalization History cellulitus Right elbow-[facility] 12/09/16
--- OUTSIDE RECORDS SUMMARY | 2017-06-20 16:12 | XMS REPORT ---
Author Author LONNIE WIGGINS [facility] Address [address] [place] [address] Care Team Providers Care Heart Doctor Name Role Phone LONNIE WIGGINS Unavailable PROBLEMS Type Condition ICD9-CM Code VYO62-AS Code Onset Dates Condition Status SNOMED Code Problem Edema R60.9 Active 864043702 Problem History of abnormal mammogram Z87.898 Active 535273101 Problem Generalized anxiety disorder F41.1 Active 69871194 Problem Violation of controlled substance agreement Z91.14 Active 848974065 Problem Right sided sciatica M54.31 Active 19026037 Problem Post-traumatic stress disorder, unspecified F43.10 Active 74809681 Problem Slow transit constipation K59.01 Active 16081151 Problem New onset seizure R56.9 Active 95475330 Problem 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
--- OUTSIDE RECORDS SUMMARY | 2017-06-20 16:12 | XMS REPORT ---
Author Author LONNIE WIGGINS [facility] Address [address] [place] [address] Care Team Providers Care Learning Operations Specialist Name Role Phone LONNIE WIGGINS Unavailable PROBLEMS Type Condition ICD9-CM Code YWK56-OU Code Onset Dates Condition Status SNOMED Code Problem Edema R60.9 Active 191829732 Problem History of abnormal mammogram Z87.898 Active 134512711 Problem Generalized anxiety disorder F41.1 Active 70698957 Problem Violation of controlled substance agreement Z91.14 Active 445232694 Problem Right sided sciatica M54.31 Active 52285707 Problem Post-traumatic stress disorder, unspecified F43.10 Active 11805093 Problem Slow transit constipation K59.01 Active 50610431 Problem New onset seizure R56.9 Active 29342571 Problem 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
--- OUTSIDE RECORDS SUMMARY | 2017-06-20 16:14 | XMS REPORT ---
Author Author JOSE G SHAHNAZ [facility] Address [address] [place] [address] Care Team Providers Care Eyeletter Name Role Phone SHAHNAZ ARAIZA Unavailable PROBLEMS Type Condition ICD9-CM Code XWV09-VF Code Onset Dates Condition Status SNOMED Code Problem Edema R60.9 Active 760577891 Problem History of abnormal mammogram Z87.898 Active 905730319 Problem Generalized anxiety disorder F41.1 Active 77301689 Problem Violation of controlled substance agreement Z91.14 Active 208075176 Problem Right sided sciatica M54.31 Active 36820537 Problem Post-traumatic stress disorder, unspecified F43.10 Active 73975866 Problem Slow transit constipation K59.01 Active 76358670 Problem New onset seizure R56.9 Active 30340594 Problem 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 Active 656478132 Problem Essential (primary) hypertension I10 Active 50665562 Problem Self mutilating behavior Z72.89 Active 571757985 Problem GERD (gastroesophageal reflux disease) K21.9 Active 360904265 Problem Heartburn R12 Active 54925193 Problem Neuropathy, idiopathic G60.9 Active 95740581 Problem Essential hypertension I10 Active 16561113 ALLERGIES No Information SOCIAL HISTORY Never Assessed PLAN OF CARE VITAL SIGNS MEDICATIONS Medication Instructions Dosage Frequency Start Date End Date Duration Status Norvasc 5 MG Orally Once a day 1 tablet 24h Active Paxil 40 mg Orally Once a day 1 tablet in the morning 24h 16 Apr, 2015 30 days Active Cetirizine HCl 10 mg Orally Once a day 1 tablet 24h 30 Active Lovastatin 20 mg Orally Once a day 1 tablet with a meal 24h 30 Active Clonazepam 0.5 MG Orally Twice a day 1 tablet in the AM and 1 tab in the evening 12h 26 Feb, 2016 30 days Active Levofloxacin 750 MG Orally Once a day 1 tablet 24h 14 Jul, 2016 Jul, Active Hydrochlorothiazide 25 MG Orally Once a day 1 tablet 24h 30 Active Baclofen 20 mg Orally 2 times a day 1 tablet with food or milk 12h Jul, Jul, 28 days Active Hydrocodone-Acetaminophen 7.5-325 MG Orally 3 times a day 1 tablet as needed 8h Jul, Jul, 14 days Active Mobic 15 MG Orally Once a day 1 tablet 24h 30 Active Flagyl 500 MG Orally every 8 hrs 1 tablet 8h Jul, Jul, Active Albuterol Sulfate HFA 108 (90 Base) MCG/ACT Inhalation every 4 hrs 2 puffs as needed 4h Active Clonidine HCl 0.1 MG TAKE ONE TABLET BY MOUTH THREE TIMES DAILY 30 Active Omeprazole 40 MG Orally Once a day 1 capsule 24h 30 Active RESULTS No Results PROCEDURES [...] 08/2014 Hospitalization History Rt hand post op infection-[facility] 07/25/16 Hospitalization History cellulitus Right elbow-[facility] 12/09/16
--- OUTSIDE RECORDS SUMMARY | 2017-06-20 16:15 | XMS REPORT ---
Author Author MARIA DE JESUS MEDEROS Organization [facility] Address [address] [place] [address] Care Team Providers Care Carpenter Assembler Name Role Phone MARIA DE JESUS MEDEROS Unavailable PROBLEMS Type Condition ICD9-CM Code VWS49-BT Code Onset Dates Condition Status SNOMED Code Problem Edema R60.9 Active 841990112 Problem History of abnormal mammogram Z87.898 Active 503538731 Problem Generalized anxiety disorder F41.1 Active 25163519 Problem Violation of controlled substance agreement Z91.14 Active 401644755 Problem Right sided sciatica M54.31 Active 28049775 Problem Post-traumatic stress disorder, unspecified F43.10 Active 19595985 Problem Slow transit constipation K59.01 Active 94965707 Problem New onset seizure R56.9 Active 97626326 Problem 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 Active 215271278 Problem Essential (primary) hypertension I10 Active 04314183 Problem Self mutilating behavior Z72.89 Active 990151465 Problem GERD (gastroesophageal reflux disease) K21.9 Active 444995973 Problem Heartburn R12 Active 77787667 Problem Neuropathy, idiopathic G60.9 Active 20840317 Problem Essential hypertension I10 Active 26135758 ALLERGIES Substance Reaction Event Type Date Status Compazine anger Drug Allergy Jul, Active Rocephin thick tongue Drug Allergy Jul, Active Phenergan shortness of breath Drug Allergy Jul, Active Penicillin V Potassium Unknown Drug Allergy Jul, Active Morphine Sulfate hives Drug Allergy Jul, Active mushrooms Unknown Non Drug Allergy Jul, Active SOCIAL HISTORY Never Assessed PLAN OF CARE Activity Details Follow Up prn Reason: VITAL SIGNS Height 66 in 2016-07-22 Weight 297.4 lbs 2016-07-22 Temperature 97.4 degrees Fahrenheit 2016-07-22 Heart Rate 94 bpm 2016-07-22 Respiratory Rate 20 2016-07-22 BMI 48.00 kg/m2 2016-07-22 Blood pressure systolic 128 mmHg 2016-07-22 Blood pressure diastolic 76 mmHg 2016-07-22 MEDICATIONS Medication Instructions Dosage Frequency Start Date End Date Duration Status Norvasc 5 MG Orally Once a day 1 tablet 24h Active Gabapentin 600 MG 1 tablet 12h 30 Active Cetirizine HCl 10 mg Orally Once a day 1 tablet 24h 30 Active Albuterol Sulfate HFA 108 (90 Base) MCG/ACT Inhalation every 4 hrs 2 puffs as needed 4h Active Paxil 40 mg Orally Once a day 1 tablet in the morning 24h Apr, 30 days Active Hydrocodone-Acetaminophen 7.5-325 MG Orally 3 times a day 1 tablet as needed 8h Jul, Jul, 14 days Active Naproxen 500 MG Orally every 12 hrs 1 tablet as needed 12h Jul, Aug, 30 days Active Clonidine HCl 0.1 MG TAKE ONE TABLET BY MOUTH THREE TIMES DAILY 30 Active Baclofen 20 mg Orally 2 times a day 1 tablet with food or milk 12h Jul, Jul, 28 days Active Clonazepam 0.5 MG Orally Twice a day 1 tablet in the AM and 1 tab in the evening 12h Feb, 30 days Active Bactrim DS 800-160 MG Orally Twice a day 2 tablet 12h Jul,Jul 10 day(s) Active Lovastatin 20 mg Orally Once a day 1 tablet with a meal 24h 30 Active Albuterol Sulfate (2.5 MG/3ML) 0.083% Inhalation Three times a day 3 ml 8h 1 months Active Mobic 15 MG Orally Once a day 1 tablet 24h 30 Active Meloxicam 15 MG TAKE ONE TABLET BY MOUTH ONCE DAILY 30 Active Diflucan 150 MG Orally Once a day 1 tablet now and repeat in 72 hours 24h Jul, Jul, 3 days Active RESULTS No Results PROCEDURES No [...] Hospitalization History Rt hand post op infection-[facility] 07/25/16 Hospitalization History cellulitus Right elbow-[facility] 12/09/16
--- OUTSIDE RECORDS SUMMARY | 2017-06-20 16:19 | XMS REPORT ---
Author Author LONNIE WIGGINS [facility] Address [address] [place] [address] Care Team Providers Care Volunteer Manager Name Role Phone LONNIE WIGGINS Unavailable PROBLEMS Type Condition ICD9-CM Code UDA54-LJ Code Onset Dates Condition Status SNOMED Code Problem History of abnormal mammogram Z87.898 Active 519950627 Problem Post-traumatic stress disorder, unspecified F43.10 Active 99234295 Problem Slow transit constipation K59.01 Active 77760072 Problem Intractable migraine with aura without status migrainosus G43.119 Active 573471810 Problem Pain of right forearm M79.631 Active 379681660 Problem New onset seizure R56.9 Active 61291777 Problem 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 Active 026923138 Problem Violation of controlled substance agreement Z91.14 Active 432374621 Problem Right sided sciatica M54.31 Active 79022565 Problem GERD (gastroesophageal reflux disease) K21.9 Active 458272882 Problem Neuropathy, idiopathic G60.9 Active 53017662 Problem Heartburn R12 Active 64454957 Problem Essential hypertension I10 Active 43886249 Problem Essential (primary) hypertension I10 Active 47744451 Problem Edema R60.9 Active 974810024 Problem Self mutilating behavior Z72.89 Active 055250652 Problem Generalized anxiety disorder F41.1 Active 35295672 ALLERGIES Substance Reaction Event Type Date Status Compazine anger Drug Allergy September, Active Rocephin thick tongue Drug Allergy September, Active Phenergan shortness of breath Drug Allergy September, Active Penicillin V Potassium Unknown Drug Allergy September, Active Morphine Sulfate hives Drug Allergy September, Active mushrooms Unknown Non Drug Allergy September, Active SOCIAL HISTORY Never Assessed PLAN OF CARE Activity Details Follow Up if not improving Reason: VITAL SIGNS Height 66 in 2016-09-23 Weight 288.5 lbs 2016-09-23 Temperature 97.2 degrees Fahrenheit 2016-09-23 Heart Rate 92 bpm 2016-09-23 Respiratory Rate 20 2016-09-23 BMI 46.56 kg/m2 2016-09-23 Blood pressure systolic 118 mmHg 2016-09-23 Blood pressure diastolic 78 mmHg 2016-09-23 MEDICATIONS Medication Instructions Dosage Frequency Start Date End Date Duration Status Cetirizine HCl 10 mg Orally Once a day 1 tablet 24h 30 Active Paxil 40 mg Orally Once a day 1 tablet in the morning 24h Aug, 30 day(s) Active Hydrochlorothiazide 25 MG Orally Once a day 1 tablet 24h 30 Active Clonazepam 0.5 MG Orally Twice a day 1 tablet in the AM and 1 tab in the evening 12h 26 Feb, 2016 30 days Active PredniSONE 20 mg Orally Once a day 2 tablets 24h September, September, 07 days Active Naproxen 500 MG Orally every 12 hrs 1 tablet as needed 12h 30 Active Gabapentin 600 MG TAKE ONE TABLET BY MOUTH TWICE DAILY Active Albuterol Sulfate HFA 108 (90 Base) MCG/ACT Inhalation every 4 hrs 2 puffs as needed 4h Active HydrOXYzine Pamoate 25 MG Orally as needed twice a day 1 capsule as needed 12h 03 Aug, 2016 30 day(s) Active Zanaflex 4 MG Orally Three times a day 1 tablet as needed 8h 28 Active Tramadol HCl 50 mg Orally 3 times a day prn 1 tablet as needed September, September, 07 days Active Amlodipine Besylate 5 MG TAKE ONE TABLET BY MOUTH DAILY 30 Active Omeprazole 40 MG Orally Once a day 1 capsule 24h 30 Active Clonidine HCl 0.1 MG TAKE ONE TABLET BY MOUTH THREE TIMES DAILY 30 Active RESULTS No Results PROCEDURES Procedure Date Ordered Result Body Site TORADOL (IM) 15 MG/ML (UP TO 15 MG) September 23, 2016 THER/PROPH/DIAG INJ, SC/IM September 23, 2016 IMMUNIZATIONS Vaccine Route Administration Date Status TORADOL (IM) 15 MG/ML (UP TO 15 MG) IM Intramuscular September 23, 2016 Administered MEDICAL (GENERAL) HISTORY Type Description Date Medical [...] 08/2014 Hospitalization History Rt hand post op infection-[facility] 07/25/16 Hospitalization History cellulitus Right elbow-[facility] 12/09/16
--- OUTSIDE RECORDS SUMMARY | 2017-06-20 16:24 | XMS REPORT ---
Author Author JELLY Winn Organization [facility] Address Unknown Care Team Providers Care Outreach Representative Name Role Phone JELLY Winn Unavailable PROBLEMS Type Condition ICD9-CM Code [id number] Code Onset Dates Condition Status SNOMED Code Problem Edema R60.9 Active 118726631 Problem History of abnormal mammogram Z87.898 Active 816558315 Problem Generalized anxiety disorder F41.1 Active 23056394 Problem Violation of controlled substance agreement Z91.14 Active 079364656 Problem Right sided sciatica M54.31 Active 89982996 Problem Post-traumatic stress disorder, unspecified F43.10 Active 21438849 Problem Slow transit constipation K59.01 Active 51427466 Problem New onset seizure R56.9 Active 98857364 Problem 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 Active 899112908 Problem Essential (primary) hypertension I10 Active 57475759 Problem Self mutilating behavior Z72.89 Active 561209353 Problem GERD (gastroesophageal reflux disease) K21.9 Active 584740435 Problem Heartburn R12 Active 83947008 Problem Neuropathy, idiopathic G60.9 Active 76742857 Problem Essential hypertension I10 Active [id number] ALLERGIES No Information SOCIAL HISTORY Never Assessed PLAN OF CARE VITAL SIGNS MEDICATIONS Medication Instructions Dosage Frequency Start Date End Date Duration Status Clonazepam 0.5 MG Orally Twice a day 1 tablet in the AM and 1 tab in the evening 12h 26 Feb, 2016 30 days Active RESULTS No Results PROCEDURES [...] 08/2014 Hospitalization History Rt hand post op infection-[facility] 07/25/16 Hospitalization History cellulitus Right elbow-[facility] 12/09/16
--- OUTSIDE RECORDS SUMMARY | 2017-06-20 16:25 | XMS REPORT ---
Author Author LONNIE WIGGINS [facility] Address [address] [place] [address] Care Team Providers Care Income Tax Adjuster Name Role Phone LONNIE WIGGINS Unavailable PROBLEMS Type Condition ICD9-CM Code EKS67-IP Code Onset Dates Condition Status SNOMED Code Problem History of abnormal mammogram Z87.898 Active 883570635 Problem Post-traumatic stress disorder, unspecified F43.10 Active 73961878 Problem Slow transit constipation K59.01 Active 00624008 Problem Intractable migraine with aura without status migrainosus G43.119 Active 356409723 Problem Pain of right forearm M79.631 Active 671935260 Problem New onset seizure R56.9 Active 62280273 Problem 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 Active 118470766 Problem Violation of controlled substance agreement Z91.14 Active 967033045 Problem Right sided sciatica M54.31 Active 61343762 Problem GERD (gastroesophageal reflux disease) K21.9 Active 841076340 Problem Neuropathy, idiopathic G60.9 Active 29743649 Problem Heartburn R12 Active 05609136 Problem Essential hypertension I10 Active 06138894 Problem Essential (primary) hypertension I10 Active 72745541 Problem Edema R60.9 Active 163669539 Problem Self mutilating behavior Z72.89 Active 104638960 Problem Generalized anxiety disorder F41.1 Active 60696711 ALLERGIES No Information SOCIAL HISTORY Never Assessed PLAN OF CARE VITAL SIGNS MEDICATIONS Medication Instructions Dosage Frequency Start Date End Date Duration Status Gabapentin 600 MG Orally 2 times a day TAKE ONE TABLET BY MOUTH TWICE DAILY 12h 30 days Active Zanaflex 4 MG Orally Three times a day 1 tablet as needed 8h 28 Active RESULTS No Results PROCEDURES No Known [...] 08/2014 Hospitalization History Rt hand post op infection-[facility] 07/25/16 Hospitalization History cellulitus Right elbow-[facility] 12/09/16
--- OUTSIDE RECORDS SUMMARY | 2017-06-20 16:26 | XMS REPORT ---
Author Author LONNIE WIGGINS [facility] Address [address] [place] [address] Care Team Providers Care Housekeeper Child Care Name Role Phone LONNIE WIGGINS Unavailable PROBLEMS Type Condition ICD9-CM Code RZA62-FC Code Onset Dates Condition Status SNOMED Code Problem Edema R60.9 Active 107892641 Problem History of abnormal mammogram Z87.898 Active 108331316 Problem Generalized anxiety disorder F41.1 Active 02459598 Problem Violation of controlled substance agreement Z91.14 Active 276255489 Problem Right sided sciatica M54.31 Active 29802875 Problem Post-traumatic stress disorder, unspecified F43.10 Active 70549192 Problem Slow transit constipation K59.01 Active 13427923 Problem New onset seizure R56.9 Active 26336958 Problem 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 07/25/16 Hospitalization History cellulitus Right elbow-[facility] 12/09/16
--- OUTSIDE RECORDS SUMMARY | 2017-06-20 16:26 | XMS REPORT ---
Author Author LONNIE WIGGINS [facility] Address [address] [place] [address] Care Team Providers Care Oncology Research Rn Name Role Phone LONNIE WIGGINS Unavailable PROBLEMS Type Condition ICD9-CM Code WGZ43-TV Code Onset Dates Condition Status SNOMED Code Problem Edema R60.9 Active 208998655 Problem History of abnormal mammogram Z87.898 Active 119331099 Problem Generalized anxiety disorder F41.1 Active 38274183 Problem Violation of controlled substance agreement Z91.14 Active 217140122 Problem Right sided sciatica M54.31 Active 16885605 Problem Post-traumatic stress disorder, unspecified F43.10 Active 01800536 Problem Slow transit constipation K59.01 Active 95655846 Problem New onset seizure R56.9 Active 79853905 Problem 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 Active 950589035 Problem Essential (primary) hypertension I10 Active 34084588 Problem Self mutilating behavior Z72.89 Active 893274799 Problem GERD (gastroesophageal reflux disease) K21.9 Active 245958653 Problem Heartburn R12 Active 51734283 Problem Neuropathy, idiopathic G60.9 Active 82856083 Problem Essential hypertension I10 Active 75635820 ALLERGIES No Information SOCIAL HISTORY Never Assessed [...] 08/2014 Hospitalization History Rt hand post op infection-[facility] 07/25/16 Hospitalization History cellulitus Right elbow-[facility] 12/09/16
--- OUTSIDE RECORDS SUMMARY | 2017-06-20 16:28 | XMS REPORT ---
Author Author LONNIE WIGGINS [facility] Address [address] [place] [address] Care Team Providers Care Building Construction Ironworker Name Role Phone LONNIE WIGGINS Unavailable PROBLEMS Type Condition ICD9-CM Code JRX11-DM Code Onset Dates Condition Status SNOMED Code Problem Edema R60.9 Active 513746949 Problem History of abnormal mammogram Z87.898 Active 382337879 Problem Generalized anxiety disorder F41.1 Active 45125892 Problem Violation of controlled substance agreement Z91.14 Active 527886530 Problem Right sided sciatica M54.31 Active 28436885 Problem Post-traumatic stress disorder, unspecified F43.10 Active 15324888 Problem Slow transit constipation K59.01 Active 29072740 Problem New onset seizure R56.9 Active 44889832 Problem 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 Active 901143998 Problem Essential (primary) hypertension I10 Active 36516164 Problem Self mutilating behavior Z72.89 Active 504803513 Problem GERD (gastroesophageal reflux disease) K21.9 Active 046501169 Problem Heartburn R12 Active 98842703 Problem Neuropathy, idiopathic G60.9 Active 74727566 Problem Essential hypertension I10 Active 25109419 ALLERGIES No Information SOCIAL HISTORY Never Assessed PLAN OF CARE VITAL SIGNS MEDICATIONS Medication Instructions Dosage Frequency Start Date End Date Duration Status Baclofen 20 mg Orally 2 times a day 1 tablet with food or milk 12h Jul, Jul, 28 days Active RESULTS No Results PROCEDURES No [...] 08/2014 Hospitalization History Rt hand post op infection-[facility] 07/25/16 Hospitalization History cellulitus Right elbow-[facility] 12/09/16
--- OUTSIDE RECORDS SUMMARY | 2017-06-20 16:29 | XMS REPORT ---
Author Author MARIA DE JESUS MEDEROS Organization [facility] Address [address] [place] [address] Care Team Providers Care Graphic Art Designer Name Role Phone MARIA DE JESUS MEDEROS Unavailable PROBLEMS Type Condition ICD9-CM Code MAC17-DK Code Onset Dates Condition Status SNOMED Code Problem Edema R60.9 Active 224712549 Problem History of abnormal mammogram Z87.898 Active 597862516 Problem Generalized anxiety disorder F41.1 Active 61706648 Problem Violation of controlled substance agreement Z91.14 Active 591847587 Problem Right sided sciatica M54.31 Active 83275280 Problem Post-traumatic stress disorder, unspecified F43.10 Active 09382184 Problem Slow transit constipation K59.01 Active 84932273 Problem New onset seizure R56.9 Active 53518086 Problem 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
[2017-06-20] MEDS ORDERED: ACETAMINOPHEN 500 MG TAB (TYLENOL) PO PRN (18:00)
[2017-06-20 18:06] LABS: CLARITY,URINE CLEAR; COLOR,URINE YELLOW; GLUCOSE, URINE (UA) NEGATIVE (NEGATIVE); KETONES,URINE NEGATIVE (NEGATIVE); LEUKOCYTE ESTERASE ,URINE NEGATIVE (NEGATIVE); NITRITE,URINE NEGATIVE (NEGATIVE); PH,URINE 5 (5-9); PROTEIN,URINE 1+ (NEGATIVE); UROBILINOGEN,URINE 1 MG/DL (NORMAL)
[2017-06-20] MEDS ORDERED: KETOROLAC 30 MG/ML VIAL IVP STA (18:08)
[2017-06-20] MEDS ORDERED: NS IV 1000 ML 1,000 ML IV ONE (18:08)
[2017-06-20] MEDS ORDERED: ONDANSETRON 4 MG/2 ML (SDV) Z0FRAN IVP ONE (18:15)
--- NOTE | 2017-06-20 18:17 | Diagnostic Imaging Report ---
INDICATION: Swelling, pain and MRSA infection. Portable AP upright view of the chest is obtained. Comparison is made to study of 12/06/2016. FINDINGS: There is mild cardiomegaly. Pulmonary vascularity is within normal limits. There is no pneumothorax or consolidation. IMPRESSION: No acute abnormality or significant change is detected. Dictated by: Dictated on workstation # [id number]
--- NOTE | 2017-06-20 18:18 | ED General ---
General Chief Complaint: Upper Extremity Stated Complaint: INFECTION IN R ARM Nursing Triage Note: PATIENT STATES THAT SHE HAS MRSA IN HER ARM. SHE HAS HAD 3 PREVIOUS SURGERIES FOR THIS. SWELLING AND PAIN BEGAN ON TUESDAY. Nursing Sepsis Screen: No Definite Risk Source of Information: Patient Exam Limitations: No Limitations History of Present Illness Date Seen by Provider: Jun 20, 2017 Time Seen by Provider: 17:46 Initial Comments 47-year-old female patient presents to the emergency department complaints of possible MRSA infection of the right forearm. Patient has had 3 previous surgeries for similar symptoms. Onset of current symptoms was on 06/24/16. Patient also complains of a white productive cough, congestion, wheezing, chronic nausea, and malaise beginning one week ago. She is not sure if she has had fevers. Timing/Duration: Getting Worse, Other (onset 06/24/16) Modifying Factors: worse with Other (right forearm pain worse with palpation) Allergies and Home Medications Allergies Coded Allergies: Penicillins (Unverified Allergy, Mild, 07/02/16) dimenhydrinate (Verified Allergy, Mild, 07/17/12) morphine (Unverified Allergy, Mild, RASH, 08/29/08) prochlorperazine (Unverified Allergy, Mild, 07/23/09) oxycodone (Unverified Allergy, Unknown, 05/14/10) Uncoded Allergies: ANTI-EMETICS (Allergy, Mild, 03/26/08) ANTI-NAUSEA MEDICATIONS EXCEPT DRAMAMINE (Allergy, Mild, MAKE HER HAVE ANXIETY ATTACKS, 08/29/08) ANTIEMETICS (Allergy, Mild, 12/09/08) NAUSEA MEDS (Allergy, Mild, 12/01/08) Home Medications Albuterol Sulfate 6.7 Gm Hfa.aer.ad, 2 PUFF INH Q4H PRN for SHORTNESS OF BREATH, (Reported) Albuterol Sulfate 6.7 Gm Hfa.aer.ad, 2 PUFF IH Q6H PRN for SHORTNESS OF BREATH, #1 Ref 0 Prescribed by: SOMMER DU on 06/20/172109 Amlodipine Besylate 5 Mg Tablet, 5 MG PO DAILY, (Reported) LAST FILLED #30 11-30-16 Aspirin/Acetaminophen/Caffeine 1 Each Tablet, 2 TAB PO DAILY PRN for MIGRAINE, ( Reported) Azithromycin 250 Mg Tablet, 250 MG PO UD, #6 Ref 0 TAKE 2 TABLETS TODAY, THEN TAKE 1 TABLET DAILY FOR 4 MORE DAYS Prescribed by: SOMMER DU on 06/20/172109 Cetirizine HCl 10 Mg Tablet, 10 MG PO DAILY, (Reported) Clonazepam 0.5 Mg Tablet, 0.5 MG PO BID, (Reported) Clonidine HCl 0.1 Mg Tablet, 0.1 MG PO TID, (Reported) Gabapentin 600 Mg Tablet, 600 MG PO BID, (Reported) Hydroxyzine Pamoate 25 Mg Capsule, 25 MG PO BID, (Reported) Naproxen 500 Mg Tablet, 500 MG PO BID PRN for PAIN-MILD, (Reported) Omeprazole 40 Mg Capsule.dr, 40 MG PO DAILY PRN for HEARTBURN, (Reported) Ondansetron 8 Mg Tab.rapdis, 8 MG PO Q6H PRN for NAUSEA/VOMITING-1ST LINE, #10 Ref 0 Prescribed by: SOMMER DU on 02/09/17 1332 Ondansetron 8 Mg Tab.rapdis, 8 MG PO Q6H PRN for NAUSEA/VOMITING-1ST LINE, #10 Ref 0 Prescribed by: SOMMER DU on 06/20/172109 Paroxetine HCl 40 Mg Tablet, 40 MG PO HS, (Reported) Sulfamethoxazole/Trimethoprim 1 Each Tablet, 1 EACH PO BID, #20 Ref 0 Prescribed by: SOMMER DU on 06/20/172109 Tizanidine HCl 4 Mg Tablet, 4 MG PO TID, (Reported) Tramadol HCl 50 Mg Tablet, 50 MG PO Q6H PRN for pain, #10 Ref 0 Prescribed by: SOMMER DU on 06/20/172109 Trazodone HCl 100 Mg Tablet, 200 MG PO HS, (Reported) TAKES 2 (100MG) TABLETS Constitutional: see HPI, chills, malaise EENTM: no symptoms reported Respiratory: see HPI, cough, No dyspnea on exertion, phlegm, No short of breath , wheezing Cardiovascular: no symptoms reported Gastrointestinal: No abdominal pain, No constipation, No diarrhea, No loss of appetite ((patient states she has been drinking only diet soda)), nausea, No vomiting Genitourinary: no symptoms reported Musculoskeletal: see HPI, joint pain (rt forearm), joint swelling (rt forearm) Skin: change in color (erythema rt forearm) Psychiatric/Neurological: No Symptoms Reported All Other Systems Reviewed Negative Unless Noted: Yes (Negative excepted noted.) Past Astoagk-Cxuzjx-Erfyhp Hx Patient Social History Alcohol Use: Denies Use Recreational Drug Use: No Type Used: Cigarettes 2nd Hand Smoke Exposure: No Recent Foreign Travel: No Contact w/Someone Who Travel: No Recent Infectious Disease Expo: No Recent Hopitalizations: Yes (january 2017 cellulitis rt arm) Immunizations Up To Date Tetanus Booster (TDap): Less than 5yrs PED Vaccines UTD: Yes Date of Pneumonia Vaccine: Jul 26, 2012 Date of Influenza Vaccine: Feb 13, 2014 Seasonal Allergies Seasonal Allergies: Yes Surgeries History of Surgeries: Yes ( arm surgery x 2 this month, ) Surgeries: Appendectomy, Section, Hysterectomy, Oophorectomy, Tonsillectomy Respiratory History of Respiratory Disorde: Yes (EMPYEMA--S/P LUNG SURGERY FOR REMOVAL) Respiratory Disorders: Asthma Currently Using CPAP: No Currently Using BIPAP: No Cardiovascular History of Cardiac Disorders: Yes Cardiac Disorders: Hypertension Neurological History of Neurological Disord: Yes Neurological Disorders: Seizure Disorder Reproductive System Hx Reproductive Disorders: Yes (MULTIPLE OVARIAN CYSTS. 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 History: Hysterectomy Genitourinary History of Genitourinary Disor: No Gastrointestinal History of Gastrointestinal Di: Yes Gastrointestinal Disorders: Gastroesophageal Reflux, Irritable Bowel Musculoskeletal History of Musculoskeletal Dis: Yes Musculoskeletal Disorders: Degenerate Disk Disease, Chronic Back Pain Endocrine History of Endocrine Disorders: Yes (MORBID OBESTIY) HEENT History of HEENT Disorders: No Loss of Vision: Denies Hearing Impairment: Denies Cancer History of Cancer: No Psychosocial History of Psychiatric Problem: Yes Behavioral Health Disorders: Sleep Difficulties, Anxiety, Depression Integumentary History of Skin or Integumenta: Yes (hx of ABSCESSES, MULTIPLE WOUND INFECTIONS , STAPH) Blood Transfusions History of Blood Disorders: No Reviewed Nursing Assessment Reviewed/Agree w Nursing PMH: Yes Family Medical History Significant Family History: No Pertinent Family Hx Family Medial History: Diabetes mellitus 19 MOTHER Headache disorder G8 SISTER Myocardial infarction 19 MOTHER STROKE 19 MOTHER Physical Exam Vital Signs Vital Sign - Last 12Hours 06/20/17 17:26 Temp 99.7 Pulse 102 Resp 20 B/P (MAP) 138/81 (100) Pulse Ox 94 O2 Delivery Room Air Capillary Refill : Less Than 3 Seconds General Appearance: No Apparent Distress, WD/WN HEENT: PERRL/EOMI, Pharynx Normal Neck: Normal Inspection, Non Tender, Supple Respiratory: No Accessory Muscle Use, No Respiratory Distress, Expiration, Wheezing Cardiovascular: No Edema, No Murmur, Normal Peripheral Pulses, Tachycardia Gastrointestinal: Normal Bowel Sounds, No Organomegaly, Non Tender, Soft Back: Normal Inspection Extremity: Normal Capillary Refill, Normal Range of Motion, Other (erythema, swelling, and tenderness of the proximal 2/3 of the rt forearm and rt elbow. no open wound noted. Exaggerated pain response to palpation of the right forearm.) Neurologic/Psychiatric: Alert, Oriented x3, No Motor/Sensory Deficits, Normal Mood/Affect Skin: Normal Color, Warm/Dry, Other (erythema, swelling, and tenderness of the proximal 2/3 of the rt forearm and rt elbow. no open wound noted. Exaggerated pain response to palpation of the right forearm.) Focused Exam Evaluation Lactate Level Laboratory Tests 06/20/17 20:30: Lactic Acid Level 0.52 Lactic Acid Level Laceration Repair : Suture Size: 4-0 Progress/Results/Core Measures Suspected Sepsis Recent Fever Within 48 Hours: No Infection Criteria Present: Suspected New Infection New/Unexplained Altered Menta: No Sepsis Screen: No Definite Risk Sepsis Diagnosis: SIRS Temperature:99.7 Pulse: 102 Respiratory Rate: 20 Laboratory Tests 06/20/17 18:35: White Blood Count 15.4H Blood Pressure 138 /81 Mean: 100 Laboratory Tests 06/20/17 20:30: Lactic Acid Level 0.52 Laboratory Tests 06/20/17 18:35: INR Comment 1.1, Platelet Count 299 06/20/17 20:30: Creatinine 0.63, Total Bilirubin 0.3 Results/Orders Lab Results Laboratory Tests Test 06/20/17 17:59 06/20/17 18:35 06/20/17 20:30 Range/Units Urine Color YELLOW Urine Clarity CLEAR Urine pH 5 5-9 Urine Specific [place] 1.020 1.016-1.022 Urine Protein 1+ H NEGATIVE Urine Glucose (UA) NEGATIVE NEGATIVE Urine Ketones NEGATIVE NEGATIVE Urine Nitrite NEGATIVE NEGATIVE Urine Bilirubin 1+ H NEGATIVE Urine Urobilinogen 1 NORMAL MG/DL Urine Leukocyte Esterase NEGATIVE NEGATIVE Urine RBC (Auto) NEGATIVE NEGATIVE Urine RBC NONE /HPF Urine WBC NONE /HPF Urine Squamous Epithelial Cells 10-25 H /HPF Urine Crystals NONE /LPF Urine Bacteria NEGATIVE /HPF Urine Casts NONE /LPF Urine Mucus NEGATIVE /LPF Urine Culture Indicated NO White Blood Count 15.4 H 4.3-11.0 10^3/uL Red Blood Count 4.97 4.35-5.85 10^6/uL Hemoglobin 10.8 L 11.5-16.0 G/DL Hematocrit 36 35-52 % Mean Corpuscular Volume 72 L 80-99 FL Mean Corpuscular Hemoglobin 22 L 25-34 PG Mean Corpuscular Hemoglobin Concent 30 L 32-36 G/DL Red Cell Distribution Width 18.7 H 10.0-14.5 % Platelet Count 299 130-400 10^3/uL Mean Platelet Volume 10.9 H 7.4-10.4 FL Neutrophils (%) (Auto) 73 42-75 % Lymphocytes (%) (Auto) 13 12-44 % Monocytes (%) (Auto) 12 0-12 % Eosinophils (%) (Auto) 1 0-10 % Basophils (%) (Auto) 1 0-10 % Neutrophils # (Auto) 11.3 H 1.8-7.8 X 10^3 Lymphocytes # (Auto) 1.9 1.0-4.0 X 10^3 Monocytes # (Auto) 1.9 H 0.0-1.0 X 10^3 Eosinophils # (Auto) 0.2 0.0-0.3 10^3/uL Basophils # (Auto) 0.1 0.0-0.1 10^3/uL Neutrophils % (Manual) 78 % Lymphocytes % (Manual) 16 % Monocytes % (Manual) 6 % Eosinophils % (Manual) 0 % Basophils % (Manual) 0 % Band Neutrophils 0 % Microcytosis SLIGHT Prothrombin Time 14.0 12.2-14.7 SEC INR Comment 1.1 0.8-1.4 Activated Partial Thromboplast Time 28 24-35 SEC Sodium Level 139 135-145 MMOL/L Potassium Level 4.1 3.6-5.0 MMOL/L Chloride Level 110 H 98-107 MMOL/L Carbon Dioxide Level 19 L 21-32 MMOL/L Anion Gap 10 5-14 MMOL/L Blood Urea Nitrogen 12 7-18 MG/DL Creatinine 0.63 0.60-1.30 MG/DL Estimat Glomerular Filtration Rate > 60 BUN/Creatinine Ratio 19 Glucose Level 76 70-105 MG/DL Lactic Acid Level 0.52 0.50-2.00 MMOL/L Calcium Level 8.2 L 8.5-10.1 MG/DL Total Bilirubin 0.3 0.1-1.0 MG/DL Aspartate Amino Transf (AST/SGOT) 30 5-34 U/L Alanine Aminotransferase (ALT/SGPT) 19 0-55 U/L Alkaline Phosphatase 117 40-136 U/L Total Protein 6.2 L 6.4-8.2 GM/DL Albumin 3.1 L 3.2-4.5 GM/DL Micro Results Microbiology 06/20/17 Blood Culture - Preliminary, Resulted No growth 06/20/17 Blood Culture - Preliminary, Resulted No growth 06/20/17 Influenza Types A,B Antigen (ELLA) - Final, Complete My Orders Orders - SOMMER DU Cbc With Automated Diff (06/20/17 17:54) Comprehensive Metabolic Panel (06/20/17 17:54) Lactic Acid Analyzer (06/20/17 17:54) Blood Culture (06/20/17 17:54) Ua Culture If Indicated (06/20/17 17:54) Protime With Inr (06/20/17 17:54) Partial Thromboplastin Time (06/20/17 17:54) Chest 1 View, Ap/Pa Only (06/20/17 17:54) Acetaminophen Tablet (Tylenol Tablet) (06/20/17 18:00) Saline Lock/Iv-Start (06/20/17 17:54) Vital Signs Adult Sepsis Patie Q1H (06/20/17 17:54) Remove Rings In Anticipation O (06/20/17 17:54) Influenza A And B Antigens (06/20/17 18:01) Ketorolac Injection (Toradol Injection) (06/20/17 18:08) Ondansetron Injection (Zofran Injectio (06/20/17 18:15) Ns Iv 1000 Ml (Sodium Chloride 0.9%) (06/20/17 18:08) Manual Differential (06/20/17 18:35) Rx-Trimeth/Sulfameth Ds Tab (Rx-Bactrim/ (06/20/17 21:27) Tramadol Tablet (Ultram Tablet) (06/20/17 21:27) Iv Infusion <= First Hr Ed (06/20/17 ) Medications Given in ED Vital Signs/I&O Capillary Refill : Less Than 3 Seconds Blood Pressure Mean: 100 Diagnostic Imaging Diagonstic Imaging: Xray Plain Films/CT/US/NM/MRI: chest Comments FINDINGS: There is mild cardiomegaly. Pulmonary vascularity is within normal limits. There is no pneumothorax or consolidation. IMPRESSION: No acute abnormality or significant change is detected. Dictated by: Dictated on workstation # [id number] Reviewed: Reviewed by Me (radiology report reviewed by me) Departure Communication (Admissions) Progress Notes Patient seen and evaluated. Labs, chest x-ray, and wound culture ordered. This examiner notified by nursing staff the patient was refusing the IV. Patient reports to this examiner that she is wanting a PICC line placed at this time. I discussed with the patient that we do not have the capability nor availability to have a PICC line placed in the emergency department at this time of night. Patient now agreeable to IV placement. Patient case discussed with Dr. Eli Armenta including history, vital signs, laboratory findings, diagnostic study findings, and exam findings. Patient is noted to have a normal lactic acid. Patient demanding to be discharged to home. This was discussed with Dr. Armenta. Dr. Armenta request patient to follow-up in the clinic in next 1-2 days for recheck and have patient call tomorrow for appointment time. Plan for discharge discussed with the patient. Patient verbalizes understanding and agrees with the treatment plan. Impression Impression: Primary Impression: Cellulitis of right forearm Additional Impression: Bronchitis, acute Qualified Codes: J20.9 - Acute bronchitis, unspecified Disposition: 01 HOME, SELF-CARE Condition: Improved Departure-Patient Inst. Decision time for Depature: 21:06 Referrals: [facility] (PCP/Family) Primary Care Physician Patient Instructions: Acute Bronchitis, Adult (DC), Cellulitis (Skin Infection) , Adult (DC) Add. Discharge Instructions: All discharge instructions reviewed with patient and/or family. Voiced understanding. Medications as instructed. Elevate the right arm on pillows above the level of the heart. Shower with antibacterial soap. Follow-up with [facility] tomorrow as an outpatient for recheck, call first thing in the morning for appointment time. Return to the emergency department for worsened pain, redness, fever, drainage, shortness of air, or any other concerns. Scripts Azithromycin (Zithromax) 250 Mg Tablet 250 MG PO UD, #6 TAB 0 Refills TAKE 2 TABLETS TODAY, THEN TAKE 1 TABLET DAILY FOR 4 MORE DAYS Prov: SOMMER DU 06/20/17 Albuterol Sulfate (Proventil Hfa) 6.7 Gm Hfa.aer.ad 2 PUFF IH Q6H Y for SHORTNESS OF BREATH, #1 EACH 0 Refills Prov: SOMMER DU 06/20/17 Ondansetron (Ondansetron Odt) 8 Mg Tab.rapdis 8 MG PO Q6H Y for NAUSEA/VOMITING-1ST LINE, #10 TAB 0 Refills Prov: SOMMER DU 06/20/17 Tramadol HCl (Tramadol HCl) 50 Mg Tablet 50 MG PO Q6H Y for pain, #10 TAB 0 Refills Prov: SOMMER DU 06/20/17 Sulfamethoxazole/Trimethoprim (Bactrim Ds Tablet) 1 Each Tablet 1 EACH PO BID, #20 TAB 0 Refills Prov: SOMMER DU 06/20/17 SOMMER DU Jun 20, 2017 18:18
[2017-06-20 18:21] LABS: BACTERIA,URINE NEGATIVE /HPF; BILIRUBIN,URINE 1+ (NEGATIVE)
[2017-06-20 18:48] LABS: BASOPHILS # (AUTO) 0.1 10^3/uL (0.0-0.1); BASOPHILS % (AUTO) 1 % (0-10); EOSINOPHILS # (AUTO) 0.2 10^3/uL (0.0-0.3); EOSINOPHILS % (AUTO) 1 % (0-10); HEMATOCRIT 36 % (35-52); HEMOGLOBIN 10.8 G/DL (11.5-16.0); LYMPHOCYTES # (AUTO) 1.9 X 10^3 (1.0-4.0); LYMPHOCYTES % (AUTO) 13 % (12-44); MEAN CORPUSCULAR HEMOGLOBIN 22 PG (25-34); MEAN CORPUSCULAR HGB CONC 30 G/DL (32-36); MEAN CORPUSCULAR VOLUME 72 FL (80-99); MEAN PLATELET VOLUME 10.9 FL (7.4-10.4); MONOCYTES # (AUTO) 1.9 X 10^3 (0.0-1.0); MONOCYTES % (AUTO) 12 % (0-12); NEUTROPHILS # (AUTO) 11.3 X 10^3 (1.8-7.8); NEUTROPHILS % (AUTO) 73 % (42-75); PLATELET COUNT 299 10^3/uL (130-400); RED BLOOD COUNT 4.97 10^6/uL (4.35-5.85); RED CELL DISTRIBUTION WIDTH 18.7 % (10.0-14.5); WHITE BLOOD COUNT 15.4 10^3/uL (4.3-11.0)
[2017-06-20 18:59] LABS: INR 1.1 (0.8-1.4)
[2017-06-20 19:05] LABS: BAND NEUTROPHILS 0 %; BASOPHILS % (MANUAL) 0 %; EOSINOPHILS % (MANUAL) 0 %; LYMPHOCYTES % (MANUAL) 16 %; MICROCYTOSIS SLIGHT; MONOCYTES % (MANUAL) 6 %; NEUTROPHILS % (MANUAL) 78 %
[2017-06-20] MEDS ORDERED: cefTRIAXone INJECTION 1,000 MG in NS (IVPB) 50 ML IV ONE (20:30)
[2017-06-20 20:58] LABS: ALANINE AMINOTRANSFERASE 19 U/L (0-55); ALBUMIN 3.1 GM/DL (3.2-4.5); ALKALINE PHOSPHATASE 117 U/L (40-136); BILIRUBIN,TOTAL 0.3 MG/DL (0.1-1.0); BUN/CREATININE RATIO 19; CALCIUM 8.2 MG/DL (8.5-10.1); CARBON DIOXIDE 19 MMOL/L (21-32); CHLORIDE 110 MMOL/L (98-107); CREATININE SERUM 0.63 MG/DL (0.60-1.30); GFR ESTIMATED > 60; GLUCOSE 76 MG/DL (70-105); POTASSIUM 4.1 MMOL/L (3.6-5.0); SODIUM 139 MMOL/L (135-145); TOTAL PROTEIN 6.2 GM/DL (6.4-8.2)
[2017-06-20] MEDS ORDERED: SULF1TAB35 PO (21:10)
[2017-06-20] MEDS ORDERED: RT-ALBUINH IH (21:10)
[2017-06-20] MEDS ORDERED: ONDA8TAB13 PO (21:10)
[2017-06-20] MEDS ORDERED: AZIT250T PO (21:10)
[2017-06-20] MEDS ORDERED: TRAM50TA2 PO (21:10)
[2017-06-20] MEDS ORDERED: RX-TRIMETH/SULFA. 160-800 MG (BACTRIM DS) TAB PPK#2 PO STA (21:27)
[2017-06-20 21:53] VITALS: BP 138/81
== END 2017-06-20 21:52 | disposition home or self-care (01) ==
LOC: EDUNIT# 15:55 → ER 15:57
DX: L03.113 Cellulitis of right upper limb (principal); J20.9 Acute bronchitis, unspecified; J45.909 Unspecified asthma, uncomplicated; K21.9 Gastro-esophageal reflux disease without esophagitis; E66.01 Morbid (severe) obesity due to excess calories; F41.9 Anxiety disorder, unspecified; F32.9 Major depressive disorder, single episode, unspecified; Z82.49 Family history of ischemic heart disease and other diseases of the circulatory system; Z88.0 Allergy status to penicillin; Z88.5 Allergy status to narcotic agent; Z88.8 Allergy status to other drugs, medicaments and biological substances; Z87.19 Personal history of other diseases of the digestive system; Z79.82 Long term (current) use of aspirin; Z90.49 Acquired absence of other specified parts of digestive tract; Z87.59 Personal history of other complications of pregnancy, childbirth and the puerperium; Z90.710 Acquired absence of both cervix and uterus; Z90.89 Acquired absence of other organs
CPT/HCPCS: 36415; 71045; 80053; 81000; 83605; 85007; 85027; 85610; 85730; 87040; 87804; 96361; 96365; 96375

== ENCOUNTER 2017-07-01 21:47 | Emergency (ER) | payer SELFPAY ==
[~2017-07-01] VITALS: Ht 167.6 cm; Wt 99.8 kg
[~2017-07-01 21:47] MED LIST changes: +AZIT250T PO; +RT-ALBUINH IH
--- NOTE | 2017-07-01 22:15 | ED Integumentary General ---
General Chief Complaint: Skin/Wound Problems Stated Complaint: R ARM INFECTION Nursing Triage Note: has had hx of MRSA to rt arm. states that last week has had increased reddness to rt fa and pain. did see and was set up with wound care on tuesday and is on bactrum. moaning and breathing hard. Source: patient, old records History of Present Illness Date Seen by Provider: Jul 01, 2017 Time Seen by Provider: 21:53 Initial Comments PT ARRIVES WITH FEMALE FRIEND WHO IS ALSO BEING SEEN FOR UNRELATED PROBLEM C/O INFECTION IN RIGHT ELBOW/FOREARM--ONGOING PROBLEM FOR MANY MONTHS, WORSE FOR THE LAST WEEK STATES SHE HAS HAD 3 SURGERIES ON IT, THE LAST 2 BEING LAST DECEMBER AND ENDED UP WITH A WOUND VAC. PT STATES SHE HAS HAD FEVER OF 102 SINCE YESTERDAY HAS HAD MULTIPLE EPISODES OF MRSA/ABSCESSES/CELLULITIS PT WAS SEEN IN THIS ER 06/20/17 FOR SAME AND WAS SEEN BY RENU WIGGINS AT [facility] ON 06/22/17. STATES SHE WAS REFERRED TO WOUND CARE CLINIC IN [facility]-- FIRST APPOINTMENT IS Tuesday07/04/17 HAS BEEN ON BACTRIM, WITH HER LAST DOSE TOMORROW TOOK TRAMADOL X 1 TODAY WITHOUT RELIEF, OTHERWISE HAS NOT TAKEN ANYTHING ELSE FOR SYMPTOMS STATES SHE "CAN'T MOVE HER ARM" DUE TO PAIN, BUT DOES NOT ACTUALLY HAVE ANY MOTOR OR SENSORY DEFICITS PT WITH MULTITUDE OF VISITS HERE. AND MANY FOR CELLULITIS/ABSCESSES, ETC, IN ADDITION TO A MULTITUDE OF VARIOUS PAIN COMPLAINTS AND ALWAYS WANTS NARCOTIC PAIN MEDICATIONS PT WANTING PAIN MEDICATION LITERALLY SOON SHE ARRIVES. PT HAS CULTURED OUT MRSA IN WOUNDS IN THE PAST, BUT MOST RECENT CULTURES FROM THIS SAME SITE GREW OUT ONLY FECAL ORGANISMS--E.COLI, ENTEROBACTER, ENTEROCOCCUS HAS BEEN HIGHLY SUSPECTED THAT PT DOES NOT TAKE HER ANTIBIOTICS PT ALWAYS WANTS PAIN MEDICATIONS--SEE LIST OF MULTIPLE "ALLERGIES TO PAIN AND NAUSEA MEDICATIONS" WITH LAST ADMIT 01/2017, PT ENDED UP BEING TRANSFERRED TO [facility] FOR INFECTIOUS DISEASE CO-MANAGEMENT. PT HAS NOT FOLLOWED UP WITH INFECTIOUS DISEASE PCP: [facility] ,RENU WIGGINS Allergies and Home Medications Allergies Coded Allergies: Penicillins (Unverified Allergy, Mild, 07/01/17) dimenhydrinate (Verified Allergy, Mild, 07/01/17) morphine (Unverified Allergy, Mild, RASH, 07/01/17) prochlorperazine (Unverified Allergy, Mild, 07/01/17) oxycodone (Unverified Allergy, Unknown, 07/01/17) Uncoded Allergies: ANTI-EMETICS (Allergy, Mild, 03/26/08) ANTI-NAUSEA MEDICATIONS EXCEPT DRAMAMINE (Allergy, Mild, MAKE HER HAVE ANXIETY ATTACKS, 08/29/08) ANTIEMETICS (Allergy, Mild, 12/09/08) NAUSEA MEDS (Allergy, Mild, 12/01/08) Home Medications Albuterol Sulfate 6.7 Gm Hfa.aer.ad, 2 PUFF INH Q4H PRN for SHORTNESS OF BREATH, (Reported) Albuterol Sulfate 6.7 Gm Hfa.aer.ad, 2 PUFF IH Q6H PRN for SHORTNESS OF BREATH, #1 Ref 0 Prescribed by: SOMMER DU on 06/20/172109 Amlodipine Besylate 5 Mg Tablet, 5 MG PO DAILY, (Reported) LAST FILLED #30 11-30-16 Aspirin/Acetaminophen/Caffeine 1 Each Tablet, 2 TAB PO DAILY PRN for MIGRAINE, ( Reported) Azithromycin 250 Mg Tablet, 250 MG PO UD, #6 Ref 0 TAKE 2 TABLETS TODAY, THEN TAKE 1 TABLET DAILY FOR 4 MORE DAYS Prescribed by: SOMMER DU on 06/20/172109 Cetirizine HCl 10 Mg Tablet, 10 MG PO DAILY, (Reported) Clonazepam 0.5 Mg Tablet, 0.5 MG PO BID, (Reported) Clonidine HCl 0.1 Mg Tablet, 0.1 MG PO TID, (Reported) Gabapentin 600 Mg Tablet, 600 MG PO BID, (Reported) Hydroxyzine Pamoate 25 Mg Capsule, 25 MG PO BID, (Reported) Naproxen 500 Mg Tablet, 500 MG PO BID PRN for PAIN-MILD, (Reported) Omeprazole 40 Mg Capsule.dr, 40 MG PO DAILY PRN for HEARTBURN, (Reported) Ondansetron 8 Mg Tab.rapdis, 8 MG PO Q6H PRN for NAUSEA/VOMITING-1ST LINE, #10 Ref 0 Prescribed by: SOMMER DU on 02/09/17 1332 Ondansetron 8 Mg Tab.rapdis, 8 MG PO Q6H PRN for NAUSEA/VOMITING-1ST LINE, #10 Ref 0 Prescribed by: SOMMER DU on 06/20/172109 Paroxetine HCl 40 Mg Tablet, 40 MG PO HS, (Reported) Sulfamethoxazole/Trimethoprim 1 Each Tablet, 1 EACH PO BID, #20 Ref 0 Prescribed by: SOMMER DU on 06/20/172109 Tizanidine HCl 4 Mg Tablet, 4 MG PO TID, (Reported) Tramadol HCl 50 Mg Tablet, 50 MG PO Q6H PRN for pain, #10 Ref 0 Prescribed by: SOMMER DU on 06/20/172109 Trazodone HCl 100 Mg Tablet, 200 MG PO HS, (Reported) TAKES 2 (100MG) TABLETS Constitutional: see HPI, fever Past Swztfqg-Rabmoj-Eikouq Hx Patient Social History Alcohol Use: Denies Use Recreational Drug Use: No Smoking Status: Current Everyday Smoker Type Used: Cigarettes 2nd Hand Smoke Exposure: No Recent Foreign Travel: No Contact w/Someone Who Travel: No Recent Infectious Disease Expo: No Recent Hopitalizations: No (january 2017 cellulitis rt arm) Physical Abuse: No Sexual Abuse: No Mistreated: No Fear: No Immunizations Up To Date Tetanus Booster (TDap): Less than 5yrs PED Vaccines UTD: Yes Date of Pneumonia Vaccine: Jul 26, 2012 Date of Influenza Vaccine: Feb 13, 2014 Seasonal Allergies Seasonal Allergies: Yes Surgeries History of Surgeries: Yes (MULTIPLE DEBRIDEMENTS, I&D'S FOR ABSCESSES/ CELLULITIS/TENOSYNOVITIS. ) Surgeries: Appendectomy, Section, Hysterectomy, Oophorectomy, Orthopedic, Tonsillectomy Respiratory History of Respiratory Disorde: Yes (EMPYEMA--S/P LUNG SURGERY FOR REMOVAL) Respiratory Disorders: Asthma Currently Using CPAP: No Currently Using BIPAP: No Cardiovascular History of Cardiac Disorders: Yes Cardiac Disorders: Hypertension Neurological History of Neurological Disord: Yes Neurological Disorders: Seizure Disorder Reproductive System Hx Reproductive Disorders: Yes (MULTIPLE OVARIAN CYSTS. 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 DECK HAND History: Hysterectomy Genitourinary History of Genitourinary Disor: No Gastrointestinal History of Gastrointestinal Di: Yes Gastrointestinal Disorders: Gastroesophageal Reflux, Irritable Bowel Musculoskeletal History of Musculoskeletal Dis: Yes Musculoskeletal Disorders: Degenerate Disk Disease, Chronic Back Pain Endocrine History of Endocrine Disorders: Yes (MORBID OBESTIY) HEENT History of HEENT Disorders: No Loss of Vision: Denies Hearing Impairment: Denies Cancer History of Cancer: No Psychosocial History of Psychiatric Problem: Yes Behavioral Health Disorders: Sleep Difficulties, Anxiety, Depression Suicide Risk Score: 0 Integumentary History of Skin or Integumenta: Yes (hx of ABSCESSES, MULTIPLE WOUND INFECTIONS , STAPH) Blood Transfusions History of Blood Disorders: No Family Medical History Significant Family History: No Pertinent Family Hx Family Medial History: Diabetes mellitus 19 MOTHER Headache disorder G8 SISTER Myocardial infarction 19 MOTHER STROKE 19 MOTHER Physical Exam Vital Signs Vital Signs - First Documented 07/01/17 21:55 Temp 99.1 Pulse 83 Resp 18 B/P (MAP) 132/84 (100) Pulse Ox 100 Capillary Refill : Less Than 3 Seconds General Appearance: other (EXTREMELY DRAMATIC, WAILING LOUDLY, "SOBBING"- BUT NO TEARS. "HYPERVENTILATING" ( WHICH IS AT WILL) THIS BEHAVIOR WAS NOT OCCURING WHEN SHE ARRIVED AND WAS IN WAITING ROOM, AND DID NOT START UNTIL SHE WAS IN ROOM WITH STAFF. ALL THIS BEHAVIOR STOPS WHEN DISTRACTED OR TALKING. MARKEDLY EXAGGERATED PAIN RESPONSE. REEKS OF CIGARETTES) Skin: tattoos/piercings (EXTENSIVE TATTOOS AND PIERCINGS. ) Laceration Repair : Suture Size: 4-0 Progress/Results/Core Measures Results/Orders Lab Results Laboratory Tests Test 07/01/17 22:09 07/01/17 22:50 Range/Units White Blood Count 15.0 H 4.3-11.0 10^3/uL Red Blood Count 4.77 4.35-5.85 10^6/uL Hemoglobin 10.2 L 11.5-16.0 G/DL Hematocrit 34 L 35-52 % Mean Corpuscular Volume 71 L 80-99 FL Mean Corpuscular Hemoglobin 21 L 25-34 PG Mean Corpuscular Hemoglobin Concent 30 L 32-36 G/DL Red Cell Distribution Width 18.4 H 10.0-14.5 % Platelet Count 352 130-400 10^3/uL Mean Platelet Volume 9.7 7.4-10.4 FL Neutrophils (%) (Auto) 74 42-75 % Lymphocytes (%) (Auto) 13 12-44 % Monocytes (%) (Auto) 11 0-12 % Eosinophils (%) (Auto) 2 0-10 % Basophils (%) (Auto) 1 0-10 % Neutrophils # (Auto) 11.0 H 1.8-7.8 X 10^3 Lymphocytes # (Auto) 2.0 1.0-4.0 X 10^3 Monocytes # (Auto) 1.7 H 0.0-1.0 X 10^3 Eosinophils # (Auto) 0.3 0.0-0.3 10^3/uL Basophils # (Auto) 0.1 0.0-0.1 10^3/uL Neutrophils % (Manual) 81 % Lymphocytes % (Manual) 15 % Monocytes % (Manual) 4 % Eosinophils % (Manual) 0 % Basophils % (Manual) 0 % Band Neutrophils 0 % Hypochromasia SLIGHT Microcytosis SLIGHT Spherocytes SLIGHT Elliptocytes SLIGHT Erythrocyte Sedimentation Rate 37 H 0-20 MM/HR Urine Color YELLOW Urine Clarity CLEAR Urine pH 6.5 5-9 Urine Specific [place] 1.015 L 1.016-1.022 Urine Protein NEGATIVE NEGATIVE Urine Glucose (UA) NEGATIVE NEGATIVE Urine Ketones NEGATIVE NEGATIVE Urine Nitrite NEGATIVE NEGATIVE Urine Bilirubin NEGATIVE NEGATIVE Urine Urobilinogen NORMAL NORMAL MG/DL Urine Leukocyte Esterase 1+ H NEGATIVE Urine RBC (Auto) NEGATIVE NEGATIVE Urine RBC NONE /HPF Urine WBC RARE /HPF Urine Squamous Epithelial Cells 10-25 H /HPF Urine Crystals NONE /LPF Urine Bacteria TRACE /HPF Urine Casts NONE /LPF Urine Mucus NEGATIVE /LPF Urine Culture Indicated NO Sodium Level 139 135-145 MMOL/L Potassium Level 3.9 3.6-5.0 MMOL/L Chloride Level 106 98-107 MMOL/L Carbon Dioxide Level 22 21-32 MMOL/L Anion Gap 11 5-14 MMOL/L Blood Urea Nitrogen 10 7-18 MG/DL Creatinine 0.74 0.60-1.30 MG/DL Estimat Glomerular Filtration Rate > 60 BUN/Creatinine Ratio 14 Glucose Level 102 70-105 MG/DL Calcium Level 8.8 8.5-10.1 MG/DL Total Bilirubin 0.3 0.1-1.0 MG/DL Aspartate Amino Transf (AST/SGOT) 35 H 5-34 U/L Alanine Aminotransferase (ALT/SGPT) 29 0-55 U/L Alkaline Phosphatase 136 40-136 U/L C-Reactive Protein High Sensitivity 4.43 H 0.00-0.50 MG/DL Total Protein 6.9 6.4-8.2 GM/DL Albumin 3.4 3.2-4.5 GM/DL Urine Opiates Screen NEGATIVE NEGATIVE Urine Oxycodone Screen NEGATIVE NEGATIVE Urine Methadone Screen NEGATIVE NEGATIVE Urine Propoxyphene Screen NEGATIVE NEGATIVE Urine Barbiturates Screen NEGATIVE NEGATIVE Ur Tricyclic Antidepressants Screen NEGATIVE NEGATIVE Urine Phencyclidine Screen NEGATIVE NEGATIVE Urine Amphetamines Screen NEGATIVE NEGATIVE Urine Methamphetamines Screen NEGATIVE NEGATIVE Urine Benzodiazepines Screen NEGATIVE NEGATIVE Urine Cocaine Screen NEGATIVE NEGATIVE Urine Cannabinoids Screen NEGATIVE NEGATIVE Lactic Acid Level 0.73 0.50-2.00 MMOL/L My Orders Orders - MARTHA CHASE DO Saline Lock/Iv-Start (07/01/17 22:01) Cbc With Automated Diff (07/01/17 22:01) Comprehensive Metabolic Panel (07/01/17 22:01) Hs C Reactive Protein (07/01/17 22:01) Erythrocyte Sedimentation Rate (07/01/17 22:01) Drug Screen Stat (Urine) (07/01/17 22:01) Ua Culture If Indicated (07/01/17 22:01) Ct Extremity Upper Right Wo (07/01/17 22:02) Manual Differential (07/01/17 22:09) Ketorolac Injection (Toradol Injection) (07/01/17 22:45) Levofloxacin 750 Mg/150 Ml Iv (Levaquin (07/01/17 22:45) Lactic Acid Analyzer (07/01/17 22:44) Blood Culture (07/01/17 22:44) Lorazepam Injection (Ativan Injection) (07/01/17 23:20) Saline Lock/Iv-Start (07/01/17 23:45) Ns Iv 1000 Ml (Sodium Chloride 0.9%) (07/01/17 23:45) Vancomycin Injection (Vancomycin Injecti (07/01/17 23:45) Wound Culture (07/01/17 23:45) Lorazepam Injection (Ativan Injection) (07/01/17 23:45) Lorazepam Injection (Ativan Injection) (07/02/17 00:15) Fentanyl Injection (Sublimaze Injection (07/02/17 00:15) Lorazepam Injection (Ativan Injection) (07/02/17 00:30) Ns (Ivpb) (Sodium Chloride 0.9%) (07/02/17 00:27) Vancomycin Injection (Vancomycin Injecti (07/02/17 00:27) Medications Given in ED Current Medications Medications Dose Ordered Sig/Jesus Route Start Time Stop Time Status Last Admin Dose Admin Fentanyl Citrate 50 mcg ONCE ONCE IVP 07/02/17 00:15 07/02/17 00:16 UNV 07/02/17 00:15 50 MCG Ketorolac Tromethamine 30 mg ONCE ONCE IVP 07/01/17 22:45 07/01/17 22:46 UNV 07/01/17 23:03 30 MG Levofloxacin/ Dextrose 150 ml @ 100 mls/hr ONCE ONCE IV 07/01/17 22:45 07/02/17 00:14 UNV 07/01/17 23:03 100 MLS/HR Lorazepam 1 mg ONCE ONCE IVP 07/01/17 23:45 07/01/17 23:46 UNV 07/01/17 23:24 1 MG Lorazepam 1 mg ONCE ONCE IVP 07/02/17 00:30 07/02/17 00:31 UNV 07/02/17 00:15 1 MG Sodium Chloride 1,000 ml @ 0 mls/hr Q0M ONCE IV 07/01/17 23:45 07/01/17 23:46 UNV 07/02/17 00:38 1,000 MLS/HR Vancomycin HCl 1000 mg/Sodium Chloride 250 ml @ 250 mls/hr ONCE ONCE IV 07/01/17 23:45 07/02/17 00:44 UNV 07/02/17 00:38 250 MLS/HR Vital Signs/I&O Vital Sign - Last 12Hours 07/01/17 21:55 Temp 99.1 Pulse 83 Resp 18 B/P (MAP) 132/84 (100) Pulse Ox 100 Blood Pressure Mean: 100 Progress Note : Progress Note BECOMING BELLIGERENT AND CONTINUES TO WAIL AND SCREAM VERY LOUDLY THROUGHOUT MOST OF ER STAY --AGAIN ALL THIS BEHAVIOR ABRUPTLY STOPS WHEN DISTRACTED OR WHEN STAFF ARE NOT PRESENT. ALL THIS STOPS IMMEDIATELY SOON SHE IS TOLD SHE WOULD BE GETTING PAIN MEDICATION--PRIOR TO EVEN RECEIVING IT. AND DOES NOT APPEAR TO BE IN ANY DISCOMFORT WHATSOEVER. ALSO GIVEN ATIVAN WHICH CALMED PT WELL PT AMBULATES TO AND FROM BATHROOM WITHOUT ANY DIFFICULTY OR WAILING. NO FURTHER WAILING FOR REMAINDER OF ER STAY,AND SLEPT SOUNDLY. MARKED DELAY IN TRANSPORT DUE TO EMS AVAILABILITY Diagnostic Imaging Comments CT RIGHT UPPER EXTREMITY--CELLULITIS OF PROXIMAL FOREARM WITH INTERFASCIAL AND INTRAMUSCULAR INVOLVEMENT. SMALL POCKET OF INTRAMUSCULAR GAS 7 X 16 MM IN SIZE, SUGGESTIVE OF GAS-FORMING ORGANISM. PER [facility] VIA FAX @ [id number] Reviewed: Reviewed by Me Departure Communication (Admissions) Progress Notes 2324--PT REQUESTS TO BE TRANSFERRED TO [facility]. PAGING DR. GREEN, HOSPITALIST. 2329--SPOKE WITH DR. GREEN, HE WILL ACCEPT IF SURGEON AGREES. PAGING SURGEON POWER TRANSMISSION ENGINEER 2337--SPOKE WITH DR. LYONS, HE WILL SEE PT IN CONSULT. DR. GREEN ACCEPTS PT FOR TRANSFER. Impression Impression: Primary Impression: Cellulitis of right forearm Additional Impressions: CHRONIC/RECURRENT CELLULITIS RIGHT FOREARM. Hx MRSA infection HX OF FECAL ORGANISMS IN WOUND- E.COLI, ENTEROBACTER, ENTEROCOCCUS Disposition: XF [facility]-TRM HOSP Condition: Stable Departure-Patient Inst. Referrals: [facility] (PCP/Family) Primary Care Physician MARTHA CHASE DO Jul 01, 2017 22:14
[2017-07-01 22:20] LABS: BASOPHILS # (AUTO) 0.1 10^3/uL (0.0-0.1); BASOPHILS % (AUTO) 1 % (0-10); BILIRUBIN,URINE NEGATIVE (NEGATIVE); CLARITY,URINE CLEAR; COLOR,URINE YELLOW; EOSINOPHILS # (AUTO) 0.3 10^3/uL (0.0-0.3); EOSINOPHILS % (AUTO) 2 % (0-10); GLUCOSE, URINE (UA) NEGATIVE (NEGATIVE); HEMATOCRIT 34 % (35-52); HEMOGLOBIN 10.2 G/DL (11.5-16.0); KETONES,URINE NEGATIVE (NEGATIVE); LEUKOCYTE ESTERASE ,URINE 1+ (NEGATIVE); LYMPHOCYTES % (AUTO) 13 % (12-44); MEAN CORPUSCULAR HEMOGLOBIN 21 PG (25-34); MEAN CORPUSCULAR HGB CONC 30 G/DL (32-36); MEAN CORPUSCULAR VOLUME 71 FL (80-99); MEAN PLATELET VOLUME 9.7 FL (7.4-10.4); MONOCYTES # (AUTO) 1.7 X 10^3 (0.0-1.0); MONOCYTES % (AUTO) 11 % (0-12); NEUTROPHILS % (AUTO) 74 % (42-75); NITRITE,URINE NEGATIVE (NEGATIVE); PH,URINE 6.5 (5-9); PLATELET COUNT 352 10^3/uL (130-400); PROTEIN,URINE NEGATIVE (NEGATIVE); RED BLOOD COUNT 4.77 10^6/uL (4.35-5.85); RED CELL DISTRIBUTION WIDTH 18.4 % (10.0-14.5); UROBILINOGEN,URINE NORMAL (NORMAL)
[2017-07-01 22:29] LABS: BACTERIA,URINE TRACE /HPF; WBC,URINE RARE /HPF
[2017-07-01 22:32] LABS: AMPHETAMINE SCREEN, URINE NEGATIVE (NEGATIVE); BARBITURATE SCREEN URINE NEGATIVE (NEGATIVE); BENZODIAZEPINES SCREEN URINE NEGATIVE (NEGATIVE); CANNABINOID SCREEN, URINE NEGATIVE (NEGATIVE); COCAINE SCREEN URINE NEGATIVE (NEGATIVE); METHADONE STAT NEGATIVE (NEGATIVE); METHAMPHETAMINE SCREEN URINE S NEGATIVE (NEGATIVE); OPIATE SCREEN URINE NEGATIVE (NEGATIVE); OXYCODONE STAT NEGATIVE (NEGATIVE); PROPOXYPHENE STAT NEGATIVE (NEGATIVE); TRICYCLIC ANTIDEPRESSANTS SCRE NEGATIVE (NEGATIVE)
[2017-07-01 22:36] LABS: BAND NEUTROPHILS 0 %; BASOPHILS % (MANUAL) 0 %; EOSINOPHILS % (MANUAL) 0 %; HYPOCHROMASIA SLIGHT; LYMPHOCYTES % (MANUAL) 15 %; MICROCYTOSIS SLIGHT; MONOCYTES % (MANUAL) 4 %; NEUTROPHILS % (MANUAL) 81 %
[2017-07-01 22:37] LABS: ELLIPT/OVALOCYTES SLIGHT; SPHEROCYTES SLIGHT
[2017-07-01 22:40] LABS: ALANINE AMINOTRANSFERASE 29 U/L (0-55); ALBUMIN 3.4 GM/DL (3.2-4.5); ALKALINE PHOSPHATASE 136 U/L (40-136); BILIRUBIN,TOTAL 0.3 MG/DL (0.1-1.0); BUN/CREATININE RATIO 14; CALCIUM 8.8 MG/DL (8.5-10.1); CARBON DIOXIDE 22 MMOL/L (21-32); CHLORIDE 106 MMOL/L (98-107); CREATININE SERUM 0.74 MG/DL (0.60-1.30); GFR ESTIMATED > 60; GLUCOSE 102 MG/DL (70-105); POTASSIUM 3.9 MMOL/L (3.6-5.0); SODIUM 139 MMOL/L (135-145); TOTAL PROTEIN 6.9 GM/DL (6.4-8.2)
[2017-07-01 22:42] LABS: ERYTHROCYTE SEDIMENTATION RATE 37 MM/HR (0-20)
[2017-07-01] MEDS ORDERED: LEVOFLOXACIN 750 MG/150 ML IV 150 ML IV ONE (22:45)
[2017-07-01] MEDS ORDERED: KETOROLAC 30 MG/ML VIAL IVP ONE (22:45)
[2017-07-01] MEDS ORDERED: LORazepam INJ 2 MG/ML (ATIVAN) VIAL ONE (23:20)
[2017-07-01] MEDS ORDERED: VANCOMYCIN INJECTION 1,000 MG in NS (IVPB) 250 ML IV ONE (23:45)
[2017-07-01] MEDS ORDERED: NS IV 1000 ML 1,000 ML IV ONE (23:45)
[2017-07-01] MEDS ORDERED: LORazepam INJ 2 MG/ML (ATIVAN) VIAL IVP ONE (23:45)
[2017-07-02] MEDS ORDERED: LORazepam INJ 2 MG/ML (ATIVAN) VIAL IVP ONE ×2 (00:15→00:30)
[2017-07-02] MEDS ORDERED: fentaNYL INJECTION 100 MCG/2 ML AMP IVP ONE (00:15)
[2017-07-02] MEDS ORDERED: NS (IVPB) 250 ML ONE (00:27)
[2017-07-02] MEDS ORDERED: VANCOMYCIN 1000 MG/VIAL ONE (00:27)
[2017-07-02] MEDS ORDERED: fentaNYL INJECTION 100 MCG/2 ML AMP IVP STA (02:10)
[2017-07-02 02:45] VITALS: BP 153/78
--- NOTE | 2017-07-02 06:23 | Diagnostic Imaging Report ---
PROCEDURE: CT right upper extremity without contrast. TECHNIQUE: Multiple contiguous axial images were obtained through the right upper extremity without the use of intravenous contrast. Sagittal and coronal reformations were then performed. Indication: Followup right arm pain and swelling. Comparison: 12/08/2016. Discussion: No fracture or dislocation identified. No osseous destruction identified to suggest osteomyelitis by CT. 0.7 x 1.6 cm pocket of intramuscular gas is noted along the extensor musculature of the proximal right forearm. Mild subcutaneous and interfascial and intramuscular edema is also noted within this region. There is no discrete drainable fluid collection identified. The presence of gas suggests a gas-forming organism in the absence of known penetrating trauma or recent debridement. Overall, the inflammatory changes and amount of gas have decreased from the prior exam. Impression: 1. Small focus of intramuscular gas noted within the proximal right forearm, with no osseous destruction identified. Surrounding inflammatory changes are decreased as compared to the prior exam. Findings are consistent with cellulitis with intramuscular and interfascial involvement. Due to the soft tissue gas present, cannot exclude a gas-forming organism. 2. Agree with preliminary report. Dictated by: Dictated on workstation # [id number]
== END 2017-07-02 02:45 | disposition short-term general hospital (02) ==
LOC: EDUNIT# 21:47 → ER 21:48
DX: L03.113 Cellulitis of right upper limb (principal); J43.9 Emphysema, unspecified; I10 Essential (primary) hypertension; G40.909 Epilepsy, unspecified, not intractable, without status epilepticus; K21.9 Gastro-esophageal reflux disease without esophagitis; E66.01 Morbid (severe) obesity due to excess calories; F41.9 Anxiety disorder, unspecified; F32.9 Major depressive disorder, single episode, unspecified; F17.210 Nicotine dependence, cigarettes, uncomplicated; Z90.710 Acquired absence of both cervix and uterus; Z82.49 Family history of ischemic heart disease and other diseases of the circulatory system; Z68.35 Body mass index [BMI] 35.0-35.9, adult; Z90.89 Acquired absence of other organs; Z87.19 Personal history of other diseases of the digestive system; Z87.59 Personal history of other complications of pregnancy, childbirth and the puerperium; Z88.0 Allergy status to penicillin; Z88.5 Allergy status to narcotic agent; Z88.8 Allergy status to other drugs, medicaments and biological substances; Z88.6 Allergy status to analgesic agent; Z79.82 Long term (current) use of aspirin; Z86.14 Personal history of Methicillin resistant Staphylococcus aureus infection
CPT/HCPCS: 36415; 73200; 80053; 80306; 81000; 83605; 85007; 85027; 85652; 86141; 87040; 87070; 87077; 87186; 87205

== ENCOUNTER 2017-07-23 17:57 | Emergency (ER) | payer SELFPAY ==
[~2017-07-23] VITALS: Ht 167.6 cm; Wt 99.8 kg
[~2017-07-23 17:57] MED LIST changes: +NAPR-915 PO; -NAPR500T4 PO
[2017-07-23] MEDS ORDERED: oxyCODONE/APAP 5/325MG (PERCOCET 5) TABLET PO STA (19:34)
[2017-07-23] MEDS ORDERED: OXYC-471 PO (19:47)
[2017-07-23] MEDS ORDERED: DOXY100T2 PO (19:47)
--- NOTE | 2017-07-23 19:47 | ED Upper Extremity ---
General Chief Complaint: Upper Extremity Stated Complaint: R ARM PAIN AFTER SURGERY Nursing Triage Note: Patient advises she was seen at [facility] several weeks ago secondary to an infection in her right arm. She advises yesterday she began experiencing green and yellow drainage as well as bleeding from the site. Nursing Sepsis Screen: No Definite Risk History of Present Illness Date Seen by Provider: Jul 23, 2017 Time Seen by Provider: 19:30 Initial Comments He 7-year-old female Patient has healing wound to her forearm. She had a deep wound that required surgical intervention at [facility] in [place], [place]. She has been doing dressing changes at home and she is noticed more bleeding from the wound site. She has no follow-up that she is aware of with the surgeon. She was unable to continue with wound care at [facility] due to transportation and financial issues. She has been on Bactrim for antibiotic coverage since discharge from the hospital. Onset: other Severity: moderate Pain/Injury Location: right forearm Allergies and Home Medications Allergies Coded Allergies: Penicillins (Unverified Allergy, Mild, 07/01/17) dimenhydrinate (Verified Allergy, Mild, 07/01/17) morphine (Unverified Allergy, Mild, RASH, 07/01/17) prochlorperazine (Unverified Allergy, Mild, 07/01/17) oxycodone (Unverified Allergy, Unknown, 07/01/17) Uncoded Allergies: ANTI-EMETICS (Allergy, Mild, 03/26/08) ANTI-NAUSEA MEDICATIONS EXCEPT DRAMAMINE (Allergy, Mild, MAKE HER HAVE ANXIETY ATTACKS, 08/29/08) ANTIEMETICS (Allergy, Mild, 12/09/08) NAUSEA MEDS (Allergy, Mild, 12/01/08) Home Medications Albuterol Sulfate 6.7 Gm Hfa.aer.ad, 2 PUFF INH Q4H PRN for SHORTNESS OF BREATH, (Reported) Albuterol Sulfate 6.7 Gm Hfa.aer.ad, 2 PUFF IH Q6H PRN for SHORTNESS OF BREATH Prescribed by: SOMMER DU on 06/20/172109 Amlodipine Besylate 5 Mg Tablet, 5 MG PO DAILY, (Reported) LAST FILLED #30 11-30-16 Aspirin/Acetaminophen/Caffeine 1 Each Tablet, 2 TAB PO DAILY PRN for MIGRAINE, ( Reported) Azithromycin 250 Mg Tablet, 250 MG PO UD TAKE 2 TABLETS TODAY, THEN TAKE 1 TABLET DAILY FOR 4 MORE DAYS Prescribed by: SOMMER DU on 06/20/172109 Cetirizine HCl 10 Mg Tablet, 10 MG PO DAILY, (Reported) Clonazepam 0.5 Mg Tablet, 0.5 MG PO BID, (Reported) Clonidine HCl 0.1 Mg Tablet, 0.1 MG PO TID, (Reported) Doxycycline Hyclate 100 Mg Tablet, 100 MG PO BID Prescribed by: BRENNON GUAJARDO on 07/23/171946 Gabapentin 600 Mg Tablet, 600 MG PO BID, (Reported) Hydroxyzine Pamoate 25 Mg Capsule, 25 MG PO BID, (Reported) Naproxen 500 Mg Tablet, 500 MG PO BID PRN for PAIN-MILD, (Reported) Omeprazole 40 Mg Capsule.dr, 40 MG PO DAILY PRN for HEARTBURN, (Reported) Ondansetron 8 Mg Tab.rapdis, 8 MG PO Q6H PRN for NAUSEA/VOMITING-1ST LINE Prescribed by: SOMMER DU on 02/09/17 1332 Ondansetron 8 Mg Tab.rapdis, 8 MG PO Q6H PRN for NAUSEA/VOMITING-1ST LINE Prescribed by: SOMMER DU on 06/20/172109 Oxycodone HCl/Acetaminophen 1 Each Tablet, 1 EACH PO Q6H Prescribed by: BRENNON GUAJARDO on 07/23/171946 Paroxetine HCl 40 Mg Tablet, 40 MG PO HS, (Reported) Sulfamethoxazole/Trimethoprim 1 Each Tablet, 1 EACH PO BID Prescribed by: SOMMER DU on 06/20/172109 Tizanidine HCl 4 Mg Tablet, 4 MG PO TID, (Reported) Tramadol HCl 50 Mg Tablet, 50 MG PO Q6H PRN for pain Prescribed by: SOMMER DU on 06/20/172109 Trazodone HCl 100 Mg Tablet, 200 MG PO HS, (Reported) TAKES 2 (100MG) TABLETS Patient Home Medication List Home Medication List Reviewed: Yes Constitutional: no symptoms reported, see HPI Musculoskeletal: see HPI, other (wound right forearm) Past Memxzlx-Ssbrhx-Kdycro Hx Patient Social History Alcohol Use: Denies Use Recreational Drug Use: No Type Used: Cigarettes 2nd Hand Smoke Exposure: No Recent Foreign Travel: No Contact w/Someone Who Travel: No Recent Infectious Disease Expo: No Recent Hopitalizations: No (january 2017 cellulitis rt arm) Physical Abuse: No Sexual Abuse: No Immunizations Up To Date Tetanus Booster (TDap): Less than 5yrs PED Vaccines UTD: Yes Date of Pneumonia Vaccine: Jul 26, 2012 Date of Influenza Vaccine: Feb 13, 2014 Seasonal Allergies Seasonal Allergies: Yes Surgeries History of Surgeries: Yes (MULTIPLE DEBRIDEMENTS, I&D'S FOR ABSCESSES/ CELLULITIS/TENOSYNOVITIS. ) Surgeries: Appendectomy, Section, Hysterectomy, Oophorectomy, Orthopedic, Tonsillectomy Respiratory History of Respiratory Disorde: Yes (EMPYEMA--S/P LUNG SURGERY FOR REMOVAL) Respiratory Disorders: Asthma Currently Using CPAP: No Currently Using BIPAP: No Cardiovascular History of Cardiac Disorders: Yes Cardiac Disorders: Hypertension Neurological History of Neurological Disord: Yes Neurological Disorders: Seizure Disorder Reproductive System Hx Reproductive Disorders: Yes (MULTIPLE OVARIAN CYSTS. 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 Genitourinary History of Genitourinary Disor: No Gastrointestinal History of Gastrointestinal Di: Yes Gastrointestinal Disorders: Gastroesophageal Reflux, Irritable Bowel Musculoskeletal History of Musculoskeletal Dis: Yes Musculoskeletal Disorders: Degenerate Disk Disease, Chronic Back Pain Endocrine History of Endocrine Disorders: Yes (MORBID OBESTIY) HEENT History of HEENT Disorders: No Loss of Vision: Denies Hearing Impairment: Denies Cancer History of Cancer: No Psychosocial History of Psychiatric Problem: Yes Behavioral Health Disorders: Sleep Difficulties, Anxiety, Depression Suicide Risk Score: 0 Integumentary History of Skin or Integumenta: Yes (hx of ABSCESSES, MULTIPLE WOUND INFECTIONS , STAPH) Blood Transfusions History of Blood Disorders: No Reviewed Nursing Assessment Reviewed/Agree w Nursing PMH: Yes Family Medical History Significant Family History: No Pertinent Family Hx Family Medial History: Diabetes mellitus 19 MOTHER Headache disorder G8 SISTER Myocardial infarction 19 MOTHER STROKE 19 MOTHER Physical Exam Vital Signs Vital Signs - First Documented 07/23/17 18:25 Temp 98.0 Pulse 76 Resp 14 B/P (MAP) 121/86 (98) Pulse Ox 97 O2 Delivery Room Air Capillary Refill : Less Than 3 Seconds General Appearance: WD/WN, no apparent distress Neck: non-tender, full range of motion, supple, normal inspection, No lymphadenopathy (R), No lymphadenopathy (L) Cardiovascular: normal peripheral pulses, regular rate, rhythm, no murmur Respiratory: chest non-tender, lungs clear, normal breath sounds Gastrointestinal: normal bowel sounds, non tender, soft Skin: normal color, warm/dry, other (healing open wound to right forearm, 9.5 cm on ulnar side. No active drainage, erythema, or warmth. Patient reports it's exquisitely tender. Wound base is pink with very early stage of granulation noted) Laceration Repair : Suture Size: 4-0 Progress/Results/Core Measures Results/Orders My Orders Orders - BRENNON GUAJARDO Oxycodone/Apap 5/325mg Tablet (Percocet (07/23/17 19:34) Doxycycline Hyclate Tablet (Vibramycin T (07/23/17 19:50) Medications Given in ED Current Medications Medications Dose Ordered Sig/Jesus Route Start Time Stop Time Status Last Admin Dose Admin Doxycycline Hyclate 100 mg ONCE ONCE PO 07/23/17 19:50 07/23/17 19:51 DC 07/23/17 19:58 100 MG Vital Signs/I&O Vital Sign - Last 12Hours 07/23/17 07/23/17 18:25 19:58 Temp 98.0 98.0 Pulse 76 76 Resp 14 14 B/P (MAP) 121/86 (98) 121/86 (98) Pulse Ox 97 97 O2 Delivery Room Air Blood Pressure Mean: 98 Progress Note : Time: 19:30 Progress Note Initial evaluation completed, patient complaining of pain oxycodone/APAP 5/325 mg one for pain. Wound irrigated with 500 ML's of sterile saline and Hibiclens. Patient tolerated well. Sterile dressing applied. 1944 doxycycline 100 mg orally, discharge instructions and return precautions reviewed with patient. All questions answered. 1999 message left with via [facility] to contact patient for consult, they're to contact her niece Paulina Cleveland, at [phone], patient does not have a phone. Departure Impression Impression: Primary Impression: Open wound of right forearm Qualified Codes: S51.801A - Unspecified open wound of right forearm, 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 Disposition: HOME, SELF-CARE Condition: Improved Departure-Patient Inst. Decision time for Depature: 19:40 Referrals: [facility] [place] Primary Care Physician Patient Instructions: Wound Care (DC) Add. Discharge Instructions: Continue wound care as directed by surgeon at [facility]. Will consult wound care at via [facility] and have them contact you on Tuesday. Take antibiotics as prescribed. Use ibuprofen 600 mg every 8 hours for additional pain. Follow-up with your primary care provider as needed. Return to emergency department for new problems or concerns. All discharge instructions reviewed with patient and/or family. Voiced understanding. Scripts Oxycodone HCl/Acetaminophen (Oxycodone-Acetaminophen 5-325) 1 Each Tablet 1 EACH PO Q6H, #10 TAB 0 Refills Prov: BRENNON GUAJARDO 07/23/17 Doxycycline Hyclate (Doxycycline Hyclate) 100 Mg Tablet 100 MG PO BID, #20 TAB 0 Refills Prov: BRENNON GUAJARDO 07/23/17 Copy Copies To 1: PAPITO JACOBS MD, AMY ARNP Jul 23, 2017 19:47
[2017-07-23] MEDS ORDERED: DOXYCYCLINE 100 MG (VIBRAMYCIN) TABLET PO ONE (19:50)
[2017-07-23 19:58] VITALS: BP 121/86
== END 2017-07-23 19:58 | disposition home or self-care (01) ==
LOC: EDUNIT# 17:57 → ER 17:59
DX: T81.89XA Other complications of procedures, not elsewhere classified, 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 (principal); F41.9 Anxiety disorder, unspecified; F32.9 Major depressive disorder, single episode, unspecified; G47.9 Sleep disorder, unspecified; E66.01 Morbid (severe) obesity due to excess calories; K21.9 Gastro-esophageal reflux disease without esophagitis; I10 Essential (primary) hypertension; G40.909 Epilepsy, unspecified, not intractable, without status epilepticus; J45.909 Unspecified asthma, uncomplicated; Z90.49 Acquired absence of other specified parts of digestive tract; Z90.89 Acquired absence of other organs; Z90.710 Acquired absence of both cervix and uterus; Z79.82 Long term (current) use of aspirin; Z87.42 Personal history of other diseases of the female genital tract; Z86.19 Personal history of other infectious and parasitic diseases; Z88.0 Allergy status to penicillin; Z88.5 Allergy status to narcotic agent; Z88.8 Allergy status to other drugs, medicaments and biological substances; Z68.35 Body mass index [BMI] 35.0-35.9, adult
CPT/HCPCS: 99283

== ENCOUNTER 2018-02-27 01:08 | Emergency (ER) | payer SELFPAY ==
[~2018-02-27] VITALS: Ht 167.6 cm; Wt 104.3 kg
[~2018-02-27 01:08] MED LIST changes: -AMLO5TAB2 PO; +AMLO5TAB7 PO; +CLON0.5T13 PO; -CLON0.5T3 PO; +CLON1TAB13 PO; -CLON1TAB3 PO; +DOXY100T2 PO; +HYDR-4226 PO; +OXYC-471 PO; +TRAZ-190 PO; -TRAZ100T92 PO
[2018-02-27] MEDS ORDERED: FAMOTIDINE 20 MG (PEPCID) TABLET PO STA (01:17)
[2018-02-27] MEDS ORDERED: LIDOCAINE 2% VISCOUS 15 ML UDC PO ONE (01:30)
[2018-02-27] MEDS ORDERED: KETOROLAC 30 MG/ML VIAL IVP ONE (01:30)
[2018-02-27] MEDS ORDERED: ANTACID SUSP 30 ML UDC (MYLANTA) PO ONE (01:30)
--- NOTE | 2018-02-27 01:30 | ED Chest Pain ---
General Stated Complaint: CP Source: patient, EMS Exam Limitations: no limitations History of Present Illness Date Seen by Provider: Feb 27, 2018 Time Seen by Provider: 01:09 Initial Comments Patient presents to ER by EMS. She was sitting in her home doing nothing particularly strenuous when she started having some chest pain within 45 minutes of calling EMS. She feels the pain substernal nonradiating without nausea fever chills but she has had some cough and had several sick contacts around her. The pain is worse when she pushes on her chest, deep inspires or coughs. Her cough has been productive. She does smoke cigarettes. She denies a history of COPD or asthma or wheezing. She does not use inhalers. EMS reports good vital signs. She does not have any primary history of coronary artery disease or family history of early-onset prior to the age of 60 primary and only with coronary artery disease. She does not have any hypertension, diabetes , thyroidism, cholesterolemia. She says in the past she had high blood pressure but it went away when she lost weight. 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 Allergies and Home Medications Allergies Coded Allergies: Penicillins (Unverified Allergy, Mild, 07/01/17) dimenhydrinate (Verified Allergy, Mild, 07/01/17) morphine (Unverified Allergy, Mild, RASH, 07/01/17) prochlorperazine (Unverified Allergy, Mild, 07/01/17) oxycodone (Unverified Allergy, Unknown, 07/01/17) Uncoded Allergies: ANTI-EMETICS (Allergy, Mild, 03/26/08) ANTI-NAUSEA MEDICATIONS EXCEPT DRAMAMINE (Allergy, Mild, MAKE HER HAVE ANXIETY ATTACKS, 08/29/08) ANTIEMETICS (Allergy, Mild, 12/09/08) NAUSEA MEDS (Allergy, Mild, 12/01/08) Home Medications Albuterol Sulfate 6.7 Gm Hfa.aer.ad, 2 PUFF INH Q4H PRN for SHORTNESS OF BREATH, (Reported) Albuterol Sulfate 6.7 Gm Hfa.aer.ad, 2 PUFF IH Q6H PRN for SHORTNESS OF BREATH Prescribed by: SOMMER DU on 06/20/172109 Amlodipine Besylate 5 Mg Tablet, 5 MG PO DAILY, (Reported) LAST FILLED #30 11-30-16 Aspirin/Acetaminophen/Caffeine 1 Each Tablet, 2 TAB PO DAILY PRN for MIGRAINE, ( Reported) Azithromycin 250 Mg Tablet, 250 MG PO UD TAKE 2 TABLETS TODAY, THEN TAKE 1 TABLET DAILY FOR 4 MORE DAYS Prescribed by: SOMMER DU on 06/20/172109 Cetirizine HCl 10 Mg Tablet, 10 MG PO DAILY, (Reported) Clonazepam 0.5 Mg Tablet, 0.5 MG PO BID, (Reported) Clonidine HCl 0.1 Mg Tablet, 0.1 MG PO TID, (Reported) Doxycycline Hyclate 100 Mg Tablet, 100 MG PO BID Prescribed by: BRENNON GUAJARDO on 07/23/171946 Gabapentin 600 Mg Tablet, 600 MG PO BID, (Reported) Hydroxyzine Pamoate 25 Mg Capsule, 25 MG PO BID, (Reported) Naproxen 500 Mg Tablet, 500 MG PO BID PRN for PAIN-MILD, (Reported) Omeprazole 40 Mg Capsule.dr, 40 MG PO DAILY PRN for HEARTBURN, (Reported) Ondansetron 8 Mg Tab.rapdis, 8 MG PO Q6H PRN for NAUSEA/VOMITING-1ST LINE Prescribed by: SOMMER DU on 02/09/17 1332 Ondansetron 8 Mg Tab.rapdis, 8 MG PO Q6H PRN for NAUSEA/VOMITING-1ST LINE Prescribed by: SOMMER DU on 06/20/172109 Oxycodone HCl/Acetaminophen 1 Each Tablet, 1 EACH PO Q6H Prescribed by: BRENNON GUAJARDO on 07/23/171946 Paroxetine HCl 40 Mg Tablet, 40 MG PO HS, (Reported) Sulfamethoxazole/Trimethoprim 1 Each Tablet, 1 EACH PO BID Prescribed by: SOMMER DU on 06/20/172109 Tizanidine HCl 4 Mg Tablet, 4 MG PO TID, (Reported) Tramadol HCl 50 Mg Tablet, 50 MG PO Q6H PRN for pain Prescribed by: SOMMER DU on 06/20/172109 Trazodone HCl 100 Mg Tablet, 200 MG PO HS, (Reported) TAKES 2 (100MG) TABLETS Patient Home Medication List Home Medication List Reviewed: Yes Review of Systems Review of Systems Constitutional: No chills, No diaphoresis, No fever, No malaise EENTM: No Blurred Vision, No Double Vision Respiratory: Cough; Denies Shortness of Air, Denies Wheezing Cardiovascular: See HPI, Chest Pain; Denies Edema, Denies Syncope Gastrointestinal: Denies Abdomen Distended, Denies Abdominal Pain, Denies Constipated, Denies Diarrhea, Denies Nausea Genitourinary: Denies Burning, Denies Discharge Musculoskeletal: No back pain, No joint pain Skin: No pruritus, No rash Past Ajhlxei-Bhdphj-Mofvck Hx Patient Social History Alcohol Use: Denies Use Recreational Drug Use: No Smoking Status: Current Everyday Smoker Type Used: Cigarettes 2nd Hand Smoke Exposure: No Recent Foreign Travel: No Contact w/Someone Who Travel: No Recent Hopitalizations: No (january 2017 cellulitis rt arm) Immunizations Up To Date Tetanus Booster (TDap): Less than 5yrs PED Vaccines UTD: Yes Date of Pneumonia Vaccine: Jul 26, 2012 Date of Influenza Vaccine: Feb 13, 2014 Seasonal Allergies Seasonal Allergies: Yes Past Medical History Surgeries: Yes (MULTIPLE DEBRIDEMENTS, I&D'S FOR ABSCESSES/CELLULITIS/ TENOSYNOVITIS. ) Appendectomy, Section, Hysterectomy, Oophorectomy, Orthopedic, Tonsillectomy Respiratory: Yes (EMPYEMA--S/P LUNG SURGERY FOR REMOVAL) Asthma Currently Using CPAP: No Currently Using BIPAP: No Cardiac: Yes Hypertension Neurological: Yes Seizure Disorder Reproductive Disorders: Yes (MULTIPLE OVARIAN CYSTS. 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 Sexually Transmitted Disease: Yes (HPV, GONORRHEA) HIV/AIDS: No Genitourinary: No Gastrointestinal: Yes Gastroesophageal Reflux, Irritable Bowel Musculoskeletal: Yes Degenerate Disk Disease, Chronic Back Pain Endocrine: Yes (MORBID OBESTIY) HEENT: No Loss of Vision: Denies Hearing Impairment: Denies Cancer: No Psychosocial: Yes Sleep Difficulties, Anxiety, Depression Integumentary: Yes (hx of ABSCESSES, MULTIPLE WOUND INFECTIONS, STAPH) Blood Disorders: No Family Medical History Diabetes mellitus 19 MOTHER Headache disorder G8 SISTER Myocardial infarction 19 MOTHER STROKE 19 MOTHER No Pertinent Family Hx Physical Exam Vital Signs Capillary Refill : Height, Weight, BMI Height: 5'6.00" Weight: 220lbs. 0oz. 99.058713cs; 41.5 BMI Method:Stated General Appearance: Anxious, Obese HEENT: PERRL/EOMI, TMs Normal, Normal ENT Inspection, Pharynx Normal, Moist Mucous Membranes Neck: Full Range of Motion, Normal Inspection, Non Tender, Supple Respiratory: Lungs Clear, Normal Breath Sounds, No Accessory Muscle Use, No Respiratory Distress, Other (chest is exquisitely tender to palpation over the sternum) Cardiovascular: Regular Rate, Rhythm, Normal Peripheral Pulses Gastrointestinal: Normal Bowel Sounds, No Organomegaly, Non Tender, Soft Extremity: Normal Capillary Refill, No Pedal Edema Neurologic/Psychiatric: Alert, Oriented x3, No Motor/Sensory Deficits Skin: Normal Color, Warm/Dry Procedures/Interventions Suture Size: 4-0 Progress/Results/Core Measures Results/Orders Lab Results Laboratory Tests Test 02/27/18 02:34 Range/Units White Blood Count 9.3 4.3-11.0 10^3/uL Red Blood Count 4.46 4.35-5.85 10^6/uL Hemoglobin 9.8 L 11.5-16.0 G/DL Hematocrit 32 L 35-52 % Mean Corpuscular Volume 71 L 80-99 FL Mean Corpuscular Hemoglobin 22 L 25-34 PG Mean Corpuscular Hemoglobin Concent 31 L 32-36 G/DL Red Cell Distribution Width 18.4 H 10.0-14.5 % Platelet Count 318 130-400 10^3/uL Mean Platelet Volume 10.2 7.4-10.4 FL Neutrophils (%) (Auto) 54 42-75 % Lymphocytes (%) (Auto) 31 12-44 % Monocytes (%) (Auto) 10 0-12 % Eosinophils (%) (Auto) 4 0-10 % Basophils (%) (Auto) 2 0-10 % Neutrophils # (Auto) 5.0 1.8-7.8 X 10^3 Lymphocytes # (Auto) 2.9 1.0-4.0 X 10^3 Monocytes # (Auto) 1.0 0.0-1.0 X 10^3 Eosinophils # (Auto) 0.4 H 0.0-0.3 10^3/uL Basophils # (Auto) 0.1 0.0-0.1 10^3/uL Prothrombin Time 13.7 12.2-14.7 SEC INR Comment 1.1 0.8-1.4 Activated Partial Thromboplast Time 26 24-35 SEC Sodium Level 140 135-145 MMOL/L Potassium Level 4.1 3.6-5.0 MMOL/L Chloride Level 108 H 98-107 MMOL/L Carbon Dioxide Level 20 L 21-32 MMOL/L Anion Gap 12 5-14 MMOL/L Blood Urea Nitrogen 9 7-18 MG/DL Creatinine 0.81 0.60-1.30 MG/DL Estimat Glomerular Filtration Rate > 60 BUN/Creatinine Ratio 11 Glucose Level 89 70-105 MG/DL Calcium Level 9.2 8.5-10.1 MG/DL Corrected Calcium 9.4 8.5-10.1 MG/DL Magnesium Level 2.1 1.8-2.4 MG/DL Total Bilirubin 0.3 0.1-1.0 MG/DL Aspartate Amino Transf (AST/SGOT) 19 5-34 U/L Alanine Aminotransferase (ALT/SGPT) 16 0-55 U/L Alkaline Phosphatase 91 40-136 U/L Myoglobin 26.4 10.0-92.0 NG/ML Troponin I < 0.30 <0.30 NG/ML Total Protein 6.7 6.4-8.2 GM/DL Albumin 3.7 3.2-4.5 GM/DL Lipase 35 8-78 U/L Smear Scan YES Micro Results Microbiology 02/27/18 Influenza Types A,B Antigen (ELLA) - Final, Complete My Orders Orders - MARCELLA FARRELL Cbc With Automated Diff (02/27/18:17) Magnesium (02/27/18:17) Ekg Tracing (02/27/18:17) Cardiac Profile 1 (02/27/18:17) Comprehensive Metabolic Panel (02/27/18:17) Myoglobin Serum (02/27/18:17) Protime With Inr (02/27/18:17) Partial Thromboplastin Time (02/27/18:17) O2 (02/27/18:17) Monitor-Rhythm Ecg Trace Only (02/27/18:17) Lipid Panel (02/28/18 06:00) Saline Lock/Iv-Start (02/27/18:17) Lipase (02/27/18:17) Chest Pa/Lat (2 View) (02/27/18:17) Ketorolac Injection (Toradol Injection) (02/27/18 01:30) Lidocaine 2% Viscous 15 Ml (Xylocaine Vi (02/27/18 01:30) Famotidine Tablet (Pepcid Tablet) (02/27/18 01:17) Antacid Suspension (Mylanta Suspension (02/27/18 01:30) Influenza A And B Antigens (02/27/18 01:30) Medications Given in ED Current Medications Medications Dose Ordered Sig/Jesus Route Start Time Stop Time Status Last Admin Dose Admin Al Hydrox/Mg Hydrox/Simethicone 30 ml ONCE ONCE PO 02/27/18 01:30 02/27/18 01:31 DC 02/27/18 01:40 30 ML Ketorolac Tromethamine 30 mg ONCE ONCE IVP 02/27/18 01:30 02/27/18 01:31 DC 02/27/18 01:40 30 MG Lidocaine HCl 15 ml ONCE ONCE PO 02/27/18 01:30 02/27/18 01:31 DC 02/27/18 01:40 15 ML Progress Progress Note #1: Time: 02:31 Progress Note Chest pain appears to be chest wall related. She has no coronary risk factors. We'll get a troponin anyways but she had no response to nitroglycerin. She was already given aspirin by EMS. We are going to give her a GI cocktail and some Toradol see if these things helped her pain. We'll get an influenza swab since she's been using Tylenol possible she's masked a fever. Progress Note #2: Time: 03:21 Progress Note First troponin was lost for the second troponin is collected well after 3 hours from the onset of her pain and is still undetectable. Her symptoms are most consistent with costochondritis and she is responded favorably to the Toradol. We'll go ahead and set her up with some prednisone and NSAIDs outpatient. Initial ECG Impression Date: Feb 27, 2018 Initial ECG Impression Time: 01:18 Initial ECG Rate: 79 Initial ECG Rhythm: Normal Sinus Initial ECG Intervals: QT (477) Initial ECG Impression: Normal, Nonspecific Changes Initial ECG Comparisson: Unchanged Comment Normal sinus rhythm without evidence of ST elevation or depression. Diagnostic Imaging Diagonstic Imaging: Xray Plain Films/CT/US/NM/MRI: chest Comments No acute cardiopulmonary processes noted. Reviewed: Reviewed by Me Departure Impression Primary Impression: Costochondral chest pain Disposition: HOME, SELF-CARE Condition: Improved Departure-Patient Inst. Decision time for Depature: 03:22 Referrals: [facility] (PCP/Family) Primary Care Physician Patient Instructions: Costochondritis (DC) Add. Discharge Instructions: Heating pads, cough medicines, Tylenol 1000 mg every 8 hours and an NSAID such as ibuprofen 800 mg every 8 hours or Aleve 2 capsules twice a day. 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 Stop smoking as this will also make the swelling and pain worse in your chest. If you're not feeling relief by 5-7 days you should follow up with your primary care doctor. Scripts Prednisone (Prednisone) 20 Mg Tab 20 MG PO BID for 5 Days, #10 TAB 0 Refills Prov: MARCELLA FARRELL 02/27/18 MARCELLA FARRELL Feb 27, 2018 01:30
[2018-02-27 02:53] LABS: BASOPHILS # (AUTO) 0.1 10^3/uL (0.0-0.1); BASOPHILS % (AUTO) 2 % (0-10); EOSINOPHILS # (AUTO) 0.4 10^3/uL (0.0-0.3); EOSINOPHILS % (AUTO) 4 % (0-10); HEMATOCRIT 32 % (35-52); HEMOGLOBIN 9.8 G/DL (11.5-16.0); LYMPHOCYTES # (AUTO) 2.9 X 10^3 (1.0-4.0); LYMPHOCYTES % (AUTO) 31 % (12-44); MEAN CORPUSCULAR HEMOGLOBIN 22 PG (25-34); MEAN CORPUSCULAR HGB CONC 31 G/DL (32-36); MEAN CORPUSCULAR VOLUME 71 FL (80-99); MEAN PLATELET VOLUME 10.2 FL (7.4-10.4); MONOCYTES % (AUTO) 10 % (0-12); NEUTROPHILS % (AUTO) 54 % (42-75); PLATELET COUNT 318 10^3/uL (130-400); RED BLOOD COUNT 4.46 10^6/uL (4.35-5.85); RED CELL DISTRIBUTION WIDTH 18.4 % (10.0-14.5); WHITE BLOOD COUNT 9.3 10^3/uL (4.3-11.0)
[2018-02-27 02:54] LABS: SMEAR SCAN COMMENT YES
[2018-02-27 03:01] LABS: INR 1.1 (0.8-1.4); PROTHROMBIN TIME PATIENT 13.7 SEC (12.2-14.7)
[2018-02-27 03:07] LABS: ALANINE AMINOTRANSFERASE 16 U/L (0-55); ALBUMIN 3.7 GM/DL (3.2-4.5); ALKALINE PHOSPHATASE 91 U/L (40-136); BILIRUBIN,TOTAL 0.3 MG/DL (0.1-1.0); BUN/CREATININE RATIO 11; CALCIUM 9.2 MG/DL (8.5-10.1); CARBON DIOXIDE 20 MMOL/L (21-32); CHLORIDE 108 MMOL/L (98-107); CREATININE SERUM 0.81 MG/DL (0.60-1.30); GFR ESTIMATED > 60; GLUCOSE 89 MG/DL (70-105); LIPASE 35 U/L (8-78); MAGNESIUM 2.1 MG/DL (1.8-2.4); POTASSIUM 4.1 MMOL/L (3.6-5.0); SODIUM 140 MMOL/L (135-145); TOTAL PROTEIN 6.7 GM/DL (6.4-8.2)
[2018-02-27 03:14] LABS: MYOGLOBIN SERUM 26.4 NG/ML (10.0-92.0)
[2018-02-27] MEDS ORDERED: PRD20T PO (03:24)
[2018-02-27] MEDS ORDERED: predniSONE 20 MG TAB PO ONE (03:30)
[2018-02-27 03:35] VITALS: BP 118/78
--- NOTE | 2018-02-27 05:54 | Diagnostic Imaging Report ---
INDICATION: Cough and congestion. COMPARISON: None FINDINGS: Frontal and lateral radiographic views of the chest were obtained and show normal cardiac silhouette and pulmonary vasculature. Evaluation of lung bui demonstrates coarse appearance of the interstitium. There are some patchy opacities within the lateral right lung base partially obscuring the right hemidiaphragm. No large effusion or pneumothorax is seen. Bony structures show no acute abnormalities. IMPRESSION: 1. Patchy infiltrate and/or atelectasis within the lateral right lung base. Dictated by: Dictated on workstation # [id number]
== END 2018-02-27 03:35 | disposition home or self-care (01) ==
LOC: EDUNIT# 01:08 → ER 01:09
DX: R07.1 Chest pain on breathing (principal); J45.909 Unspecified asthma, uncomplicated; I10 Essential (primary) hypertension; G40.909 Epilepsy, unspecified, not intractable, without status epilepticus; K21.9 Gastro-esophageal reflux disease without esophagitis; E66.01 Morbid (severe) obesity due to excess calories; F41.9 Anxiety disorder, unspecified; F32.9 Major depressive disorder, single episode, unspecified; F17.210 Nicotine dependence, cigarettes, uncomplicated; Z82.49 Family history of ischemic heart disease and other diseases of the circulatory system; Z88.0 Allergy status to penicillin; Z68.41 Body mass index [BMI] 40.0-44.9, adult; Z87.19 Personal history of other diseases of the digestive system; Z87.448 Personal history of other diseases of urinary system; Z98.890 Other specified postprocedural states; Z90.710 Acquired absence of both cervix and uterus; Z90.89 Acquired absence of other organs; Z88.5 Allergy status to narcotic agent; Z88.8 Allergy status to other drugs, medicaments and biological substances; Z79.51 Long term (current) use of inhaled steroids; Z79.82 Long term (current) use of aspirin
CPT/HCPCS: 36415; 71046; 80053; 83690; 83735; 83874; 84484; 85025; 85610; 85730; 87804; 93005; 93041; 96374

== ENCOUNTER 2018-03-05 16:15 | Emergency (ER) | payer SELFPAY ==
[~2018-03-05] VITALS: Ht 167.6 cm; Wt 113.4 kg
[2018-03-05] MEDS ORDERED: KETOROLAC 60 MG/2 ML VIAL IM STA (16:57)
--- NOTE | 2018-03-05 16:59 | ED Lower Extremity ---
General Chief Complaint: Lower Extremity Stated Complaint: R HIP PAIN Nursing Triage Note: Patient complains of right hip pain x 2 weeks that has gotten progressively worse. EMS advised that the patient was walking home today when she felt like her leg was going to give out so she laid down on the sidewalk. Nursing Sepsis Screen: No Definite Risk History of Present Illness Date Seen by Provider: Mar 05, 2018 Time Seen by Provider: 16:50 Initial Comments 48-year-old female presents via EMS for right hip pain. She states for the last 2 weeks she has been having low back and right sided lateral leg pain. She was shopping today pushing a cart, when her right leg gave out and she lowered herself to the ground. She denies any injury at that time but her leg pain became so severe she was able to ambulate and leave without assistance. She has long-standing history of degenerative disc disease in her lumbar spine. She denies using a walker cane or crutches for ambulation. She was seen here approximately 2 weeks ago for costochondritis and prescribed Tylenol and ibuprofen for her pain, she has not taken either of these due to cost issues. Onset: just prior to arrival Pain/Injury Location: right hip Method of Injury: unknown Modifying Factors: Improves With Rest Allergies and Home Medications Allergies Coded Allergies: Penicillins (Unverified Allergy, Mild, 07/01/17) dimenhydrinate (Verified Allergy, Mild, 07/01/17) morphine (Unverified Allergy, Mild, RASH, 07/01/17) prochlorperazine (Unverified Allergy, Mild, 07/01/17) oxycodone (Unverified Allergy, Unknown, 07/01/17) Uncoded Allergies: ANTI-EMETICS (Allergy, Mild, 03/26/08) ANTI-NAUSEA MEDICATIONS EXCEPT DRAMAMINE (Allergy, Mild, MAKE HER HAVE ANXIETY ATTACKS, 08/29/08) ANTIEMETICS (Allergy, Mild, 12/09/08) NAUSEA MEDS (Allergy, Mild, 12/01/08) Home Medications Albuterol Sulfate 6.7 Gm Hfa.aer.ad, 2 PUFF INH Q4H PRN for SHORTNESS OF BREATH, (Reported) Albuterol Sulfate 6.7 Gm Hfa.aer.ad, 2 PUFF IH Q6H PRN for SHORTNESS OF BREATH Prescribed by: SOMMER DU on 06/20/172109 Amlodipine Besylate 5 Mg Tablet, 5 MG PO DAILY, (Reported) LAST FILLED #30 11-30-16 Aspirin/Acetaminophen/Caffeine 1 Each Tablet, 2 TAB PO DAILY PRN for MIGRAINE, ( Reported) Azithromycin 250 Mg Tablet, 250 MG PO UD TAKE 2 TABLETS TODAY, THEN TAKE 1 TABLET DAILY FOR 4 MORE DAYS Prescribed by: SOMMER DU on 06/20/172109 Cetirizine HCl 10 Mg Tablet, 10 MG PO DAILY, (Reported) Clonazepam 0.5 Mg Tablet, 0.5 MG PO BID, (Reported) Clonidine HCl 0.1 Mg Tablet, 0.1 MG PO TID, (Reported) Cyclobenzaprine HCl 10 Mg Tablet, 10 MG PO Q8H PRN for SPASMS Prescribed by: BRENNON GUAJARDO on 03/05/181911 Doxycycline Hyclate 100 Mg Tablet, 100 MG PO BID Prescribed by: BRENNON GUAJARDO on 07/23/171946 Gabapentin 600 Mg Tablet, 600 MG PO BID, (Reported) Hydrocodone Bit/Acetaminophen 1 Tab Tab, 1-2 EACH PO Q6H PRN for PAIN-MODERATE Prescribed by: BRENNON GUAJARDO on 03/05/181911 Hydroxyzine Pamoate 25 Mg Capsule, 25 MG PO BID, (Reported) Naproxen 500 Mg Tablet, 500 MG PO BID PRN for PAIN-MILD, (Reported) Omeprazole 40 Mg Capsule.dr, 40 MG PO DAILY PRN for HEARTBURN, (Reported) Ondansetron 8 Mg Tab.rapdis, 8 MG PO Q6H PRN for NAUSEA/VOMITING-1ST LINE Prescribed by: SOMMER DU on 02/09/17 1332 Ondansetron 8 Mg Tab.rapdis, 8 MG PO Q6H PRN for NAUSEA/VOMITING-1ST LINE Prescribed by: SOMMER DU on 06/20/172109 Oxycodone HCl/Acetaminophen 1 Each Tablet, 1 EACH PO Q6H Prescribed by: BRENNON GUAJARDO on 07/23/171946 Paroxetine HCl 40 Mg Tablet, 40 MG PO HS, (Reported) Prednisone 20 Mg Tab, 20 MG PO BID Prescribed by: MARCELLA FARRELL on 02/27/18 0324 Sulfamethoxazole/Trimethoprim 1 Each Tablet, 1 EACH PO BID Prescribed by: SOMMER DU on 06/20/172109 Tizanidine HCl 4 Mg Tablet, 4 MG PO TID, (Reported) Tramadol HCl 50 Mg Tablet, 50 MG PO Q6H PRN for pain Prescribed by: SOMMER DU on 06/20/172109 Trazodone HCl 100 Mg Tablet, 200 MG PO HS, (Reported) TAKES 2 (100MG) TABLETS Patient Home Medication List Home Medication List Reviewed: Yes Review of Systems Constitutional: no symptoms reported, see HPI Musculoskeletal: see HPI, back pain, joint pain (right hip) Past Aardugp-Pnnfnw-Bjcnac Hx Past Med/Social Hx: Reviewed Nursing Past Med/Soc Hx Patient Social History Alcohol Use: Denies Use Recreational Drug Use: Yes Drug of Choice: THC Smoking Status: Current Everyday Smoker Type Used: Cigarettes 2nd Hand Smoke Exposure: No Recent Foreign Travel: No Contact w/Someone Who Travel: No Recent Infectious Disease Expo: No Recent Hopitalizations: No (january 2017 cellulitis rt arm) Immunizations Up To Date Tetanus Booster (TDap): Less than 5yrs PED Vaccines UTD: Yes Date of Pneumonia Vaccine: Jul 26, 2012 Date of Influenza Vaccine: Feb 13, 2014 Seasonal Allergies Seasonal Allergies: Yes Past Medical History Surgeries: Yes (MULTIPLE DEBRIDEMENTS, I&D'S FOR ABSCESSES/CELLULITIS/ TENOSYNOVITIS. ) Appendectomy, Section, Hysterectomy, Oophorectomy, Orthopedic, Tonsillectomy Respiratory: Yes (EMPYEMA--S/P LUNG SURGERY FOR REMOVAL) Asthma Currently Using CPAP: No Currently Using BIPAP: No Cardiac: Yes Hypertension Neurological: Yes Seizure Disorder Reproductive Disorders: Yes (MULTIPLE OVARIAN CYSTS. 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 Sexually Transmitted Disease: Yes (HPV, GONORRHEA) HIV/AIDS: No Genitourinary: No Gastrointestinal: Yes Gastroesophageal Reflux, Irritable Bowel Musculoskeletal: Yes Degenerate Disk Disease, Chronic Back Pain Endocrine: Yes (MORBID OBESTIY) HEENT: No Loss of Vision: Denies Hearing Impairment: Denies Cancer: No Psychosocial: Yes Sleep Difficulties, Anxiety, Depression Integumentary: Yes (hx of ABSCESSES, MULTIPLE WOUND INFECTIONS, STAPH) Blood Disorders: No Family Medical History Diabetes mellitus 19 MOTHER Headache disorder G8 SISTER Myocardial infarction 19 MOTHER STROKE 19 MOTHER No Pertinent Family Hx Physical Exam Vital Signs Vital Signs - First Documented 03/05/18 16:22 Temp 98.1 Pulse 86 Resp 12 B/P (MAP) 117/55 (75) Pulse Ox 98 O2 Delivery Room Air Capillary Refill : Less Than 3 Seconds Height, Weight, BMI Height: 5'6.00" Weight: 250lbs. 0oz. 113.564763of; 41.5 BMI Method:Estimated General Appearance: WD/WN, no apparent distress Neck: non-tender, full range of motion, supple, normal inspection Cardiovascular: normal peripheral pulses, regular rate, rhythm Respiratory: chest non-tender, lungs clear Gastrointestinal: normal bowel sounds, non tender, soft Hips: left hip non-tender; bilateral hip normal inspection, bilateral hip normal range of motion, bilateral hip no evidence of injury; right hip pain, right hip soft tissue tenderness (greater trochanter and lateral thigh) Neurologic/Psychiatric: no motor/sensory deficits, alert, normal mood/affect, oriented x 3 Skin: normal color, warm/dry Power V/V L5-S1. Neurovascular status intact bilateral lower extremities. Patient has exquisite tenderness to palpation in the right lower lumbar spine, gluteus and greater trochanter. No ecchymosis, swelling or contusion noted. She has a negative straight leg raising sign. Ambulates with an antalgic gait favoring the right leg. Procedures/Interventions Suture Size: 4-0 Progress/Results/Core Measures Results/Orders My Orders Orders - BRENNON GUAJARDO Pelvis With Right Hip 2-3views (03/05/18 16:30) Ketorolac Injection (Toradol Injection) (03/05/18 16:57) Hydrocodone/Apap 7.5/325 Tab (Lortab 7. (03/05/18 18:10) Cyclobenzaprine Tablet (Flexeril Tablet) (03/05/18 18:11) Rx-Hydrocodone/Apap 5-325 Mg (Rx-Vicodin (03/05/18 19:15) Rx-Cyclobenzaprine Tablet (Rx-Flexeril T (03/05/18 19:09) Medications Given in ED Current Medications Medications Dose Ordered Sig/Jesus Route Start Time Stop Time Status Last Admin Dose Admin Acetaminophen/ Hydrocodone Bitart 1 ea Q6H PRN PO 03/05/18 19:15 03/05/18 19:23 DC 03/05/18 19:19 1 EA Vital Signs/I&O 03/05/18 03/05/18 16:22 19:19 Temp 98.1 Pulse 86 62 Resp 12 14 B/P (MAP) 117/55 (75) 117/55 (75) Pulse Ox 98 98 O2 Delivery Room Air Room Air Blood Pressure Mean: 75 Progress Progress Note : Time: 16:50 Progress Note Initial evaluation completed, recommended x-ray of the pelvis and right hip then reevaluation. 1715 Toradol 60 mg IM for pain. Ice pack to right hip for pain. 174 patient aggressive to staff, throwing ice pack and demanding additional pain medicine. Thrashing in bed and yelling. Calmed patient to discuss her findings, she is still rating her pain at a 10/10. Will try cyclobenzaprine 10 mg and hydrocodone/APAP 5/325 mg for pain and muscle spasms 1829 Patient apologetic for her behavior previously. Pain under control. Waling in room with no complaints. Discharge instructions and return precautions reviewed with the patient. All questions answered. Diagnostic Imaging Diagonstic Imaging: Xray Plain Films/CT/US/NM/MRI: pelvis, hip Comments NAME: PAULA SALAZAR MED REC#: [id number] PHYSICIAN: BRENNON GUAJARDO CC: JERRY YANCEY MD; BRENNON GUAJARDO Page 1 of 1 RADIOLOGY REPORT VIA [facility], [facility]. [place], [place] CC: JERRY YANCEY MD; BRENNON GUAJARDO Page 1 of 1 RADIOLOGY REPORT NAME: PAULA SALAZAR MED REC#: [id number] PT STATUS: REG ER : 1970 PHYSICIAN: BRENNON GUAJARDO ADMIT DATE: 03/05/18/ER Signed Date of Exam: 03/05/18 PELVIS WITH RIGHT HIP 2-3VIEWS INDICATION: Right hip pain. COMPARISON: 03/14/2015. TECHNIQUE: Three radiographs of the pelvis and right hip dated March 05, 2018. FINDINGS: No acute fracture or dislocation. No destructive osseous process. The sacroiliac joints are intact. Pubic symphysis is intact. Minimal degenerative changes of the bilateral hips. The right femoral head maintains its normal shape and contour. Ovoid calcific densities are identified superior to the right greater trochanter. IMPRESSION: 1. No acute osseous abnormality with mild scattered degenerative changes. 2. Ovoid calcification superior to the right greater trochanter. This may relate to a calcified granuloma within the right gluteal region. Given location, loose body is felt unlikely.? Dictated by: Dictated on workstation # [id number] Dict: 03/05/18 1647 Trans: 03/05/181712 Interpreted by: JERRY YANCEY MD Electronically signed by: JERRY YANCEY MD 03/05/181712 Departure Impression Primary Impression: Sciatica, right side Disposition: 01 HOME, SELF-CARE Condition: Improved Departure-Patient Inst. Decision time for Depature: 18:30 Referrals: [facility] [place] Primary Care Physician Patient Instructions: Sciatica (DC) Add. Discharge Instructions: Take Aleve 2 tablets twice daily with food. Use the cyclobenzaprine as directed for muscle spasms. Use the hydrocodone/APAP for severe pain. All up with your primary care provider as needed for symptoms if they are not improving. Return to emergency department for acute, new health care problems. All discharge instructions reviewed with patient and/or family. Voiced understanding. Scripts Cyclobenzaprine HCl (Cyclobenzaprine HCl) 10 Mg Tablet 10 MG PO Q8H PRN for SPASMS, #12 TAB 0 Refills Prov: BRENNON GUAJARDO 03/05/18 Hydrocodone Bit/Acetaminophen (Hydrocodone/Acetaminophen 5/325mg Tablet) 1 Tab Tab 1-2 EACH PO Q6H PRN for PAIN-MODERATE MDD 10, #12 TAB Prov: BRENNON GUAJARDO 03/05/18 BRENNON GUAJARDO Mar 05, 2018 16:59
[2018-03-05] MEDS ORDERED: HYDROcodone/APAP 7.5 MG/325 MG (LORTAB, LORCET PLUS) TABLET PO STA (18:10)
[2018-03-05] MEDS ORDERED: CYCLOBENZAPRINE 10 MG (FLEXERIL) TAB PO STA (18:11)
[2018-03-05] MEDS ORDERED: RX-CYCLOBENZAPRINE 10 MG (FLEXERIL) TAB PPK#3 PO STA (19:09)
[2018-03-05] MEDS ORDERED: CYCL10TA9 PO (19:12)
[2018-03-05] MEDS ORDERED: ACHD5005 PO (19:12)
[2018-03-05] MEDS ORDERED: RX-HYDROCODONE/APAP 5/325 MG #4 TAB PK PO PRN (19:15)
[2018-03-05 19:19] VITALS: BP 117/55
== END 2018-03-05 19:23 | disposition home or self-care (01) ==
LOC: EDUNIT# 16:15 → ER 16:16
DX: M54.41 Lumbago with sciatica, right side (principal); J45.909 Unspecified asthma, uncomplicated; I10 Essential (primary) hypertension; K21.9 Gastro-esophageal reflux disease without esophagitis; E66.01 Morbid (severe) obesity due to excess calories; F41.9 Anxiety disorder, unspecified; F32.9 Major depressive disorder, single episode, unspecified; G40.909 Epilepsy, unspecified, not intractable, without status epilepticus; F12.10 Cannabis abuse, uncomplicated; F17.210 Nicotine dependence, cigarettes, uncomplicated; Z87.448 Personal history of other diseases of urinary system; Z82.49 Family history of ischemic heart disease and other diseases of the circulatory system; Z68.41 Body mass index [BMI] 40.0-44.9, adult; Z87.19 Personal history of other diseases of the digestive system; Z90.710 Acquired absence of both cervix and uterus; Z98.890 Other specified postprocedural states; Z90.89 Acquired absence of other organs; Z88.0 Allergy status to penicillin; Z88.5 Allergy status to narcotic agent; Z88.8 Allergy status to other drugs, medicaments and biological substances; Z79.51 Long term (current) use of inhaled steroids; Z79.82 Long term (current) use of aspirin; Z79.52 Long term (current) use of systemic steroids

== ENCOUNTER 2018-05-08 02:29 | Emergency (ER) | payer SELFPAY ==
[~2018-05-08] VITALS: Ht 167.6 cm; Wt 104.3 kg
--- NOTE | 2018-05-08 02:44 | ED Fall/Injury ---
General Chief Complaint: Trauma-Non Activation Stated Complaint: FALL Source: patient, EMS Exam Limitations: no limitations History of Present Illness Date Seen by Provider: May 08, 2018 Time Seen by Provider: 02:31 Initial Comments Patient presents to ER by EMS with chief complaint that she had a fall just prior to arrival. She has abrasions on her knees and lower extremities and a large hematoma and pain in her left femur. She was able to bear weight on that left leg on the cot for EMS. She's was letting her dog out to the bathroom and it took off running and the leash got bound up in her legs and tripped her down about 6 or 7 stairs. She denies striking her head or upper extremities. She did not lose consciousness or have any nausea vomiting but she has been sick for the past week or 2 with some stomach bug and having some nausea. She was given 100 mcg of fentanyl en route by EMS which she said took her pain down from about a 7 to a 3 out of 10. She is not on blood thinners or aspirin. Patient is status post hysterectomy. Allergies and Home Medications Allergies Coded Allergies: Penicillins (Unverified Allergy, Mild, 07/01/17) dimenhydrinate (Verified Allergy, Mild, 07/01/17) morphine (Unverified Allergy, Mild, RASH, 07/01/17) prochlorperazine (Unverified Allergy, Mild, 07/01/17) oxycodone (Unverified Allergy, Unknown, 07/01/17) Uncoded Allergies: ANTI-EMETICS (Allergy, Mild, 03/26/08) ANTI-NAUSEA MEDICATIONS EXCEPT DRAMAMINE (Allergy, Mild, MAKE HER HAVE ANXIETY ATTACKS, 08/29/08) ANTIEMETICS (Allergy, Mild, 12/09/08) NAUSEA MEDS (Allergy, Mild, 12/01/08) Home Medications Albuterol Sulfate 6.7 Gm Hfa.aer.ad, 2 PUFF INH Q4H PRN for SHORTNESS OF BREATH, (Reported) Albuterol Sulfate 6.7 Gm Hfa.aer.ad, 2 PUFF IH Q6H PRN for SHORTNESS OF BREATH Prescribed by: SOMMER DU on 06/20/172109 Amlodipine Besylate 5 Mg Tablet, 5 MG PO DAILY, (Reported) LAST FILLED #30 11-30-16 Aspirin/Acetaminophen/Caffeine 1 Each Tablet, 2 TAB PO DAILY PRN for MIGRAINE, ( Reported) Azithromycin 250 Mg Tablet, 250 MG PO UD TAKE 2 TABLETS TODAY, THEN TAKE 1 TABLET DAILY FOR 4 MORE DAYS Prescribed by: SOMMER DU on 06/20/172109 Cetirizine HCl 10 Mg Tablet, 10 MG PO DAILY, (Reported) Clonazepam 0.5 Mg Tablet, 0.5 MG PO BID, (Reported) Clonidine HCl 0.1 Mg Tablet, 0.1 MG PO TID, (Reported) Cyclobenzaprine HCl 10 Mg Tablet, 10 MG PO Q8H PRN for SPASMS Prescribed by: BRENNON GUAJARDO on 03/05/181911 Doxycycline Hyclate 100 Mg Tablet, 100 MG PO BID Prescribed by: BRENNON GUAJARDO on 07/23/171946 Gabapentin 600 Mg Tablet, 600 MG PO BID, (Reported) Hydrocodone Bit/Acetaminophen 1 Tab Tab, 1-2 EACH PO Q6H PRN for PAIN-MODERATE Prescribed by: BRENNON GUAJARDO on 03/05/181911 Hydroxyzine Pamoate 25 Mg Capsule, 25 MG PO BID, (Reported) Naproxen 500 Mg Tablet, 500 MG PO BID PRN for PAIN-MILD, (Reported) Omeprazole 40 Mg Capsule.dr, 40 MG PO DAILY PRN for HEARTBURN, (Reported) Ondansetron 8 Mg Tab.rapdis, 8 MG PO Q6H PRN for NAUSEA/VOMITING-1ST LINE Prescribed by: SOMMER DU on 02/09/17 1332 Ondansetron 8 Mg Tab.rapdis, 8 MG PO Q6H PRN for NAUSEA/VOMITING-1ST LINE Prescribed by: SOMMER DU on 06/20/172109 Oxycodone HCl/Acetaminophen 1 Each Tablet, 1 EACH PO Q6H Prescribed by: BRENNON GUAJARDO on 07/23/171946 Paroxetine HCl 40 Mg Tablet, 40 MG PO HS, (Reported) Prednisone 20 Mg Tab, 20 MG PO BID Prescribed by: MARCELLA FARRELL on 02/27/18323 Sulfamethoxazole/Trimethoprim 1 Each Tablet, 1 EACH PO BID Prescribed by: SOMMER DU on 06/20/172109 Tizanidine HCl 4 Mg Tablet, 4 MG PO TID, (Reported) Tramadol HCl 50 Mg Tablet, 50 MG PO Q6H PRN for pain Prescribed by: SOMMER DU on 06/20/172109 Trazodone HCl 100 Mg Tablet, 200 MG PO HS, (Reported) TAKES 2 (100MG) TABLETS Patient Home Medication List Home Medication List Reviewed: Yes Review of Systems Review of Systems Constitutional: No chills, No diaphoresis Eyes: Denies Blindness, Denies Blurred Vision, Denies Pain, Denies Photophobia Ears, Nose, Mouth, Throat: denies ear pain, denies ear discharge Respiratory: No cough, No dyspnea on exertion Cardiovascular: No chest pain, No palpitations Gastrointestinal: No abdominal pain, No constipation, No diarrhea Genitourinary: No discharge, No dysuria Musculoskeletal: No back pain, No joint pain Skin: other (abrasions on lower extremities) Past Vlmsomz-Wpqskd-Kyikvu Hx Patient Social History Alcohol Use: Denies Use Recreational Drug Use: Yes Drug of Choice: THC Smoking Status: Current Everyday Smoker Type Used: Cigarettes 2nd Hand Smoke Exposure: No Recent Foreign Travel: No Contact w/Someone Who Travel: No Recent Hopitalizations: No (january 2017 cellulitis rt arm) Immunizations Up To Date Tetanus Booster (TDap): Less than 5yrs PED Vaccines UTD: Yes Date of Pneumonia Vaccine: Jul 26, 2012 Date of Influenza Vaccine: Feb 13, 2014 Seasonal Allergies Seasonal Allergies: Yes Past Medical History Surgeries: Yes (MULTIPLE DEBRIDEMENTS, I&D'S FOR ABSCESSES/CELLULITIS/ TENOSYNOVITIS. ) Appendectomy, Section, Hysterectomy, Oophorectomy, Orthopedic, Tonsillectomy Respiratory: Yes (EMPYEMA--S/P LUNG SURGERY FOR REMOVAL) Asthma Currently Using CPAP: No Currently Using BIPAP: No Cardiac: Yes Hypertension Neurological: Yes Seizure Disorder Reproductive Disorders: Yes (MULTIPLE OVARIAN CYSTS. 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 Sexually Transmitted Disease: Yes (HPV, GONORRHEA) HIV/AIDS: No Genitourinary: No Gastrointestinal: Yes Gastroesophageal Reflux, Irritable Bowel Musculoskeletal: Yes Degenerate Disk Disease, Chronic Back Pain Endocrine: Yes (MORBID OBESTIY) HEENT: No Loss of Vision: Denies Hearing Impairment: Denies Cancer: No Psychosocial: Yes Sleep Difficulties, Anxiety, Depression Integumentary: Yes (hx of ABSCESSES, MULTIPLE WOUND INFECTIONS, STAPH) Blood Disorders: No Family Medical History Diabetes mellitus 19 MOTHER Headache disorder G8 SISTER Myocardial infarction 19 MOTHER STROKE 19 MOTHER No Pertinent Family Hx Physical Exam Vital Signs Vital Signs - First Documented 05/08/18 02:31 Temp 99.1 Pulse 85 Resp 22 B/P (MAP) 137/75 (95) Pulse Ox 98 O2 Delivery Room Air Capillary Refill : Height, Weight, BMI Height: 5'6.00" Weight: 250lbs. 0oz. 113.429702ux; 41.5 BMI Method:Estimated General Appearance: WD/WN, mild distress HEENT: PERRL/EOMI, normal ENT inspection, TMs normal, pharynx normal, other ( atraumatic head) Neck: non-tender, full range of motion, supple, normal inspection Cardiovascular: normal peripheral pulses, regular rate, rhythm Respiratory: chest non-tender, no respiratory distress, no accessory muscle use Peripheral Pulses: 2+ Dorsalis Pedis (R), 2+ Left Dors-Pedis (L), 2+ Radial Pulses (R), 2+ Radial Pulses (L) Extremities: normal capillary refill, other (a large 10 cm Susana, over the anterior lateral left thigh. Range of motion is intact) Skin: other (superficial abrasions on the knees as well as anterior shins and a few tiny ones on the feet less than once worsening liter each. Hemostatic.) Dulce Coma Score Best Eye Response: (4) Open Spontaneously Best Verbal Response: (5) Oriented Best Motor Response: (6) Obeys Commands Dulce Total: 15 Procedures/Interventions Suture Size: 4-0 Progress/Results/Core Measures Results/Orders Lab Results Laboratory Tests Test 05/08/18 03:20 Range/Units White Blood Count 9.8 4.3-11.0 10^3/uL Red Blood Count 5.00 4.35-5.85 10^6/uL Hemoglobin 10.5 L 11.5-16.0 G/DL Hematocrit 35 35-52 % Mean Corpuscular Volume 70 L 80-99 FL Mean Corpuscular Hemoglobin 21 L 25-34 PG Mean Corpuscular Hemoglobin Concent 30 L 32-36 G/DL Red Cell Distribution Width 19.5 H 10.0-14.5 % Platelet Count 284 130-400 10^3/uL Mean Platelet Volume 10.5 H 7.4-10.4 FL Neutrophils (%) (Auto) 64 42-75 % Lymphocytes (%) (Auto) 23 12-44 % Monocytes (%) (Auto) 11 0-12 % Eosinophils (%) (Auto) 2 0-10 % Basophils (%) (Auto) 1 0-10 % Neutrophils # (Auto) 6.3 1.8-7.8 X 10^3 Lymphocytes # (Auto) 2.3 1.0-4.0 X 10^3 Monocytes # (Auto) 1.1 H 0.0-1.0 X 10^3 Eosinophils # (Auto) 0.2 0.0-0.3 10^3/uL Basophils # (Auto) 0.1 0.0-0.1 10^3/uL Sodium Level 138 135-145 MMOL/L Potassium Level 4.5 3.6-5.0 MMOL/L Chloride Level 108 H 98-107 MMOL/L Carbon Dioxide Level 21 21-32 MMOL/L Anion Gap 9 5-14 MMOL/L Blood Urea Nitrogen 17 7-18 MG/DL Creatinine 0.71 0.60-1.30 MG/DL Estimat Glomerular Filtration Rate > 60 BUN/Creatinine Ratio 24 Glucose Level 94 70-105 MG/DL Calcium Level 8.4 L 8.5-10.1 MG/DL Corrected Calcium 9.0 8.5-10.1 MG/DL Total Bilirubin 0.2 0.1-1.0 MG/DL Aspartate Amino Transf (AST/SGOT) 19 5-34 U/L Alanine Aminotransferase (ALT/SGPT) 19 0-55 U/L Alkaline Phosphatase 82 40-136 U/L Total Protein 5.9 L 6.4-8.2 GM/DL Albumin 3.3 3.2-4.5 GM/DL My Orders Orders - MARCELLA FARRELL Ondansetron Oral Dissolve Tab (Zofran (05/08/18 02:45) Femur, Left, 2 Views (05/08/18 02:36) Knee, Left, 3 Views (05/08/18 02:36) Knee, Right, 3 Views (05/08/18 02:36) Hip, Left, 2 Views (05/08/18 02:36) Fentanyl Injection (Sublimaze Injection (05/08/18 03:00) Fentanyl Injection (Sublimaze Injection (05/08/18 02:51) Cbc With Automated Diff (05/08/18 03:22) Comprehensive Metabolic Panel (05/08/18 03:22) Hydrocodone/Apap 10/325 Tablet (Lortab 1 (05/08/18 04:00) Medications Given in ED Current Medications Medications Dose Ordered Sig/Jesus Route Start Time Stop Time Status Last Admin Dose Admin Fentanyl Citrate 50 mcg ONCE ONCE IVP 05/08/18 03:00 05/08/18 03:01 DC 05/08/18 03:02 50 MCG Ondansetron HCl 4 mg ONCE ONCE PO 05/08/18 02:45 05/08/18 02:46 DC 05/08/18 02:40 4 MG Vital Signs/I&O 05/08/18 02:31 Temp 99.1 Pulse 85 Resp 22 B/P (MAP) 137/75 (95) Pulse Ox 98 O2 Delivery Room Air Progress Progress Note #1: Time: 02:42 Progress Note Wash the hematoma from the list with some ice on it and get some x-rays of her legs. Right now she says her pains under control but she is having a little bit of nausea and wouldn't mind some Zofran. Progress Note #2: Time: 04:03 Progress Note Patient was able to ambulate albeit painfully to the bathroom. She says she has a cane at home she can use. Her hemoglobin is improved from February from 9.8 up to 10.5. We will get her wrapped with a Ronnie bandage and ice pack and have given her some return precautions. She has follow-up on the with her primary care for another reason and he can recheck her leg. Diagnostic Imaging Diagonstic Imaging: Xray Plain Films/CT/US/NM/MRI: femur (left hip) Comments No acute osseous abnormalities of the pelvis, hip or the femur. Reviewed: Reviewed by Me Diagonstic Imaging: Xray Plain Films/CT/US/NM/MRI: knee (bilateral) Comments Bilateral knees without any acute osseous abnormality. Departure Impression Primary Impression: Fall (on) (from) other stairs and steps, 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 Additional Impressions: Multiple abrasions Hematoma and contusion Disposition: HOME, SELF-CARE Condition: Improved Departure-Patient Inst. Decision time for Depature: 04:04 Referrals: [facility] (PCP/Family) Primary Care Physician Patient Instructions: HEMATOMA Add. Discharge Instructions: Put the ice on at least 20 minutes every 4 hours for the next 3 days. You can also alternate this with heat. Wear the Ronnie compression bandage over your thigh and keep your thigh elevated above the level of your heart when possible. Use a cane or walker for ambulation around her house. Use Tylenol and Naprosyn for pain. If you're still cannot stand the pain and maintained function then you may take one tablet of the hydrocodone every 4-6 hours as needed for pain. If you have intractable pain, numbness, loss of sensation in your foot or lower leg or it is cold to the touch and you should immediately return to the nearest ER for reevaluation. Otherwise keep your follow-up appointment with primary care. It will probably take several weeks for this hematoma to resorb on its own. All discharge instructions reviewed with patient and/or family. Voiced understanding. Scripts Hydrocodone Bit/Acetaminophen (Hydrocodone/Acetaminophen 5/325mg Tablet) 1 Tab Tab 1 EACH PO Q4-6HR PRN for PAIN-MODERATE MDD 10 for 7 Days, #16 TAB 0 Refills Prov: MARCELLA FARRELL 05/08/18 Copy Copies To 1: BEAR YOUNG DO MARCELLA FARRELL May 08, 2018 02:44
[2018-05-08] MEDS ORDERED: ONDANSETRON 4 MG (ZOFRAN) ORAL DISSOLVE TAB PO ONE (02:45)
[2018-05-08] MEDS ORDERED: fentaNYL INJECTION 100 MCG/2 ML AMP ONE (02:51)
[2018-05-08] MEDS ORDERED: fentaNYL INJECTION 100 MCG/2 ML AMP IVP ONE (03:00)
[2018-05-08 03:28] LABS: BASOPHILS # (AUTO) 0.1 10^3/uL (0.0-0.1); BASOPHILS % (AUTO) 1 % (0-10); EOSINOPHILS # (AUTO) 0.2 10^3/uL (0.0-0.3); EOSINOPHILS % (AUTO) 2 % (0-10); HEMATOCRIT 35 % (35-52); HEMOGLOBIN 10.5 G/DL (11.5-16.0); LYMPHOCYTES # (AUTO) 2.3 X 10^3 (1.0-4.0); LYMPHOCYTES % (AUTO) 23 % (12-44); MEAN CORPUSCULAR HEMOGLOBIN 21 PG (25-34); MEAN CORPUSCULAR HGB CONC 30 G/DL (32-36); MEAN CORPUSCULAR VOLUME 70 FL (80-99); MEAN PLATELET VOLUME 10.5 FL (7.4-10.4); MONOCYTES # (AUTO) 1.1 X 10^3 (0.0-1.0); MONOCYTES % (AUTO) 11 % (0-12); NEUTROPHILS # (AUTO) 6.3 X 10^3 (1.8-7.8); NEUTROPHILS % (AUTO) 64 % (42-75); PLATELET COUNT 284 10^3/uL (130-400); RED CELL DISTRIBUTION WIDTH 19.5 % (10.0-14.5); WHITE BLOOD COUNT 9.8 10^3/uL (4.3-11.0)
[2018-05-08 03:57] LABS: ALANINE AMINOTRANSFERASE 19 U/L (0-55); ALBUMIN 3.3 GM/DL (3.2-4.5); ALKALINE PHOSPHATASE 82 U/L (40-136); BILIRUBIN,TOTAL 0.2 MG/DL (0.1-1.0); BUN/CREATININE RATIO 24; CALCIUM 8.4 MG/DL (8.5-10.1); CARBON DIOXIDE 21 MMOL/L (21-32); CHLORIDE 108 MMOL/L (98-107); CREATININE SERUM 0.71 MG/DL (0.60-1.30); GFR ESTIMATED > 60; GLUCOSE 94 MG/DL (70-105); POTASSIUM 4.5 MMOL/L (3.6-5.0); SODIUM 138 MMOL/L (135-145); TOTAL PROTEIN 5.9 GM/DL (6.4-8.2)
[2018-05-08] MEDS ORDERED: HYDROcodone/APAP 10 MG/325 MG (LORTAB) TAB PO ONE (04:00)
[2018-05-08] MEDS ORDERED: ACHD5005 PO (04:08)
[2018-05-08 04:17] VITALS: BP 130/79
--- NOTE | 2018-05-08 08:19 | Diagnostic Imaging Report ---
INDICATION: Fall with left hip pain AP, oblique, and lateral views of the left hip are obtained. No fracture or acute bony abnormality is seen. IMPRESSION: Negative left hip. Dictated by: Dictated on workstation # [id number]
--- NOTE | 2018-05-08 08:20 | Diagnostic Imaging Report ---
INDICATION: Fall with right knee pain AP, oblique, and lateral views of the right knee are obtained. No fracture or acute bony abnormality is seen. IMPRESSION: Negative right knee. Dictated by: Dictated on workstation # [id number]
--- NOTE | 2018-05-08 08:21 | Diagnostic Imaging Report ---
INDICATION: Fall with bruising, hematoma. TECHNIQUE: Frontal and Lateral views of the left femur CORRELATION STUDY: None FINDINGS: Examination of the femur demonstrates no evidence for acute bony abnormality or fracture of the femur. No aminata bony destructive change. Imaging of the hip and knee are unremarkable. Increased density over the soft tissues, suggestive of the known hematoma. No abnormal soft tissue gas collections. IMPRESSION: 1. Negative for acute bony abnormality of the femur. Dictated by: Dictated on workstation # [id number]
--- NOTE | 2018-05-08 08:42 | Diagnostic Imaging Report ---
'INDICATION: Status post fall, bruising to the thigh with large hematoma. TECHNIQUE: 3 views of the left knee CORRELATION STUDY: None FINDINGS: Joint spaces are mildly narrowed. No acute bony abnormality. The articular surfaces are smooth. A projection, single lucency through the patella is noted, but not supported on additional views likely artifactual. She had mild soft tissue edema. No evidence for lipohemarthrosis. IMPRESSION: 1. Negative for acute bony abnormality of the knee. Dictated by: Dictated on workstation # [id number]
== END 2018-05-08 04:17 | disposition home or self-care (01) ==
LOC: EDUNIT# 02:29 → ER 02:32
DX: S80.02XA Contusion of left knee, 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 (principal); S80.01XA Contusion of right knee, 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; S70.12XA Contusion of left thigh, 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; J43.9 Emphysema, unspecified; I10 Essential (primary) hypertension; G40.909 Epilepsy, unspecified, not intractable, without status epilepticus; K21.9 Gastro-esophageal reflux disease without esophagitis; E66.01 Morbid (severe) obesity due to excess calories; F41.9 Anxiety disorder, unspecified; R40.2142 Coma scale, eyes open, spontaneous, at arrival to emergency department; R40.2252 Coma scale, best verbal response, oriented, at arrival to emergency department; R40.2362 Coma scale, best motor response, obeys commands, at arrival to emergency department; F32.9 Major depressive disorder, single episode, unspecified; F12.10 Cannabis abuse, uncomplicated; F17.210 Nicotine dependence, cigarettes, uncomplicated; Z98.890 Other specified postprocedural states; Z87.19 Personal history of other diseases of the digestive system; Z86.19 Personal history of other infectious and parasitic diseases; Z82.49 Family history of ischemic heart disease and other diseases of the circulatory system; Z87.448 Personal history of other diseases of urinary system; Z90.89 Acquired absence of other organs; Z90.49 Acquired absence of other specified parts of digestive tract; Z90.710 Acquired absence of both cervix and uterus; Z88.0 Allergy status to penicillin; Z88.5 Allergy status to narcotic agent; Z88.6 Allergy status to analgesic agent; Z79.51 Long term (current) use of inhaled steroids; Z79.82 Long term (current) use of aspirin; Z79.52 Long term (current) use of systemic steroids; W10.8XXA Fall (on) (from) other stairs and steps, 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
CPT/HCPCS: 36415; 73502; 73552; 73562; 80053; 85025

== ENCOUNTER 2018-07-07 19:28 | Emergency (ER) | payer SELFPAY ==
[~2018-07-07] VITALS: Ht 167.6 cm; Wt 113.4 kg
[~2018-07-07 19:28] MED LIST changes: -AMLO5TAB7 PO; +AMLO5TAB9 PO; +GBPN600T PO
--- NOTE | 2018-07-07 19:39 | ED Lower Extremity ---
General Chief Complaint: Lower Extremity Stated Complaint: LT KNEE PAIN Source: patient Exam Limitations: no limitations History of Present Illness Date Seen by Provider: Jul 07, 2018 Time Seen by Provider: 19:38 Initial Comments 48-year-old female who presents to the emergency room with complaints of left knee pain. She reports that this afternoon she was doing laundry when she stepped on a belt changer that was on the ground causing her to slip and fall onto her left knee. She denies other injuries from the fall. Onset: this afternoon Pain/Injury Location: left knee Method of Injury: fell Modifying Factors: Worse With Movement Allergies and Home Medications Allergies Coded Allergies: Penicillins (Unverified Allergy, Mild, 07/01/17) dimenhydrinate (Verified Allergy, Mild, 07/01/17) prochlorperazine (Unverified Allergy, Mild, 07/01/17) Uncoded Allergies: ANTI-EMETICS (Allergy, Mild, 03/26/08) ANTI-NAUSEA MEDICATIONS EXCEPT DRAMAMINE (Allergy, Mild, MAKE HER HAVE ANXIETY ATTACKS, 08/29/08) ANTIEMETICS (Allergy, Mild, 12/09/08) NAUSEA MEDS (Allergy, Mild, 12/01/08) Home Medications Albuterol Sulfate 6.7 Gm Hfa.aer.ad, 2 PUFF INH Q4H PRN for SHORTNESS OF BREATH, (Reported) Albuterol Sulfate 6.7 Gm Hfa.aer.ad, 2 PUFF IH Q6H PRN for SHORTNESS OF BREATH Prescribed by: SOMMER DU on 06/20/172109 Clonidine HCl 0.1 Mg Tablet, 0.1 MG PO TID, (Reported) Gabapentin 600 Mg Tablet, 600 MG PO BID, (Reported) Hydroxyzine Pamoate 25 Mg Capsule, 25 MG PO BID, (Reported) Naproxen 500 Mg Tablet, 500 MG PO BID PRN for PAIN-MILD, (Reported) Omeprazole 40 Mg Capsule.dr, 40 MG PO DAILY PRN for HEARTBURN, (Reported) Paroxetine HCl 10 Mg Tablet, 10 MG PO DAILY, (Reported) Tizanidine HCl 4 Mg Tablet, 4 MG PO TID, (Reported) Trazodone HCl 100 Mg Tablet, 200 MG PO HS, (Reported) TAKES 2 (100MG) TABLETS Patient Home Medication List Home Medication List Reviewed: Yes Review of Systems Constitutional: no symptoms reported, see HPI Musculoskeletal: see HPI, joint pain (left knee pain) All Other Systems Reviewed Negative Unless Noted: Yes Past Haveffb-Wmypiy-Ieqlwj Hx Past Med/Social Hx: Reviewed Nursing Past Med/Soc Hx Patient Social History Drug of Choice: THC Type Used: Cigarettes 2nd Hand Smoke Exposure: No Recent Foreign Travel: No Contact w/Someone Who Travel: No Recent Hopitalizations: No (january 2017 cellulitis rt arm) Immunizations Up To Date Tetanus Booster (TDap): Less than 5yrs PED Vaccines UTD: Yes Date of Pneumonia Vaccine: Jul 26, 2012 Date of Influenza Vaccine: Feb 13, 2014 Seasonal Allergies Seasonal Allergies: Yes Past Medical History Surgeries: Yes (MULTIPLE DEBRIDEMENTS, I&D'S FOR ABSCESSES/CELLULITIS/ TENOSYNOVITIS. ) Appendectomy, Section, Hysterectomy, Oophorectomy, Orthopedic, Tonsillectomy Respiratory: Yes (EMPYEMA--S/P LUNG SURGERY FOR REMOVAL) Asthma Currently Using CPAP: No Currently Using BIPAP: No Cardiac: Yes Hypertension Neurological: Yes Seizure Disorder Reproductive Disorders: Yes (MULTIPLE OVARIAN CYSTS. 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 Sexually Transmitted Disease: Yes (HPV, GONORRHEA) HIV/AIDS: No Genitourinary: No Gastrointestinal: Yes Gastroesophageal Reflux, Irritable Bowel Musculoskeletal: Yes Degenerate Disk Disease, Chronic Back Pain Endocrine: Yes (MORBID OBESTIY) HEENT: No Loss of Vision: Denies Hearing Impairment: Denies Cancer: No Psychosocial: Yes Sleep Difficulties, Anxiety, Depression Integumentary: Yes (hx of ABSCESSES, MULTIPLE WOUND INFECTIONS, STAPH) Blood Disorders: No Family Medical History Reviewed Nursing Family Hx Diabetes mellitus 19 MOTHER Headache disorder G8 SISTER Myocardial infarction 19 MOTHER STROKE 19 MOTHER No Pertinent Family Hx Physical Exam Vital Signs Vital Signs - First Documented 07/07/18 19:35 Temp 98.2 Pulse 85 Resp 14 B/P (MAP) 156/81 (106) Pulse Ox 97 O2 Delivery Room Air Capillary Refill : Height, Weight, BMI Height: 5'6.00" Weight: 230lbs. 0oz. 104.316979ya; 41.5 BMI Method:Stated General Appearance: WD/WN, no apparent distress Cardiovascular: normal peripheral pulses, regular rate, rhythm, no edema, no gallop, no JVD, no murmur Respiratory: chest non-tender, lungs clear, normal breath sounds, no respiratory distress, no accessory muscle use Knees: left knee normal inspection, left knee normal range of motion (patient has full range of motion but has increased pain with range of motion), left knee deformity Neurologic/Tendon: normal sensation, normal motor functions, normal tendon functions, responds to pain, no evidence tendon injury Neurologic/Psychiatric: alert, normal mood/affect, oriented x 3 Skin: normal color, warm/dry Procedures/Interventions Suture Size: 4-0 Progress/Results/Core Measures Results/Orders My Orders Orders - CAIO DENTON Knee, Left, 3 Views (07/07/18 19:37) Rx-Hydrocodone/Apap 5-325 Mg (Rx-Vicodin (07/07/18 20:45) Medications Given in ED Vital Signs/I&O 07/07/18 07/07/18 19:35 21:02 Temp 98.2 98.2 Pulse 85 85 Resp 14 14 B/P (MAP) 156/81 (106) 156/81 (106) Pulse Ox 97 97 O2 Delivery Room Air Progress Progress Note : Time: 21:03 Progress Note I have seen and evaluated the patient. I've informed her of her imaging studies. She was placed in a knee immobilizer and instructed to follow-up with behavior management specialist. She reports that she has a walker at home to ambulate with. She agrees with plan of care, plans for discharge, return precautions were given. Diagnostic Imaging Diagonstic Imaging: Xray Plain Films/CT/US/NM/MRI: chest Comments [facility] [place], [place] NAME: PAULA SALAZAR Angeli [facility] REC#: [id number] PT STATUS: REG ER : 1970 PHYSICIAN: CAIO DENTON ADMIT DATE: 07/07/18/ER Draft Date of Exam:07/07/18 KNEE, LEFT, 3 VIEWS INDICATION: Fall with trauma to the knee. COMPARISON: None. FINDINGS: 3 views of the left knee joint demonstrate no acute fracture or dislocation. No focal osseous lesions are seen. No significant joint effusion is seen. The surrounding soft tissue structures are unremarkable. There are no radiopaque foreign bodies. IMPRESSION: 1. No acute fractures or dislocations of the left knee joint. Dictated on workstation # [id number] Dict: 07/07/181957 Trans: 07/07/181958 [id number] Interpreted by: KLEBER SINGH MD Electronically signed by: Reviewed: Reviewed by Me Departure Impression Primary Impression: Contusion of knee Disposition: HOME, SELF-CARE Condition: Stable/Unchanged Departure-Patient Inst. Decision time for Depature: 20:45 Referrals: [facility] (PCP/Family) Primary Care Physician ROSALINA BELLA MD,PAPITO Sharpe MD Patient Instructions: Contusion (DC) Add. Discharge Instructions: Take medication as directed. Ice to the sore areas at 20 minute intervals. Tylenol Motrin as directed by the bottle for pain relief. Wear the knee immobilizer as needed for comfort. Follow-up with an orthopedic surgeon within 1 week for recheck. Return back to the emergency room for worsening symptoms or concerns as needed. Follow-up with primary care as needed. All discharge instructions reviewed with patient and/or family. Voiced understanding. CAIO DENTON Jul 07, 2018 19:38
[2018-07-07] MEDS ORDERED: PARO10TA81 PO (19:46)
--- NOTE | 2018-07-07 19:59 | Diagnostic Imaging Report ---
INDICATION: Fall with trauma to the knee. COMPARISON: None. FINDINGS: 3 views of the left knee joint demonstrate no acute fracture or dislocation. No focal osseous lesions are seen. No significant joint effusion is seen. The surrounding soft tissue structures are unremarkable. There are no radiopaque foreign bodies. IMPRESSION: 1. No acute fractures or dislocations of the left knee joint. Dictated by: Dictated on workstation # [id number]
[2018-07-07] MEDS ORDERED: RX-HYDROCODONE/APAP 5/325 MG #4 TAB PK PO PRN (20:45)
--- NOTE | 2018-07-07 20:56 | NUR ---
PATIENT SENT HOME WITH HYDROCONE-APAP 5/325 MG X 4 TABLETS TO TAKE 1 TABLET EVERY 6 HOURS PRN FOR SEVERE PAIN. KNEE IMMOBILIZER PLACED ON LEFT KNEE.
[2018-07-07 21:02] VITALS: BP 156/81
== END 2018-07-07 21:11 | disposition home or self-care (01) ==
LOC: EDUNIT# 19:28 → ER 19:30
DX: S80.02XA Contusion of left knee, 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 (principal); J45.909 Unspecified asthma, uncomplicated; I10 Essential (primary) hypertension; G40.909 Epilepsy, unspecified, not intractable, without status epilepticus; K21.9 Gastro-esophageal reflux disease without esophagitis; K58.9 Irritable bowel syndrome, unspecified; E66.01 Morbid (severe) obesity due to excess calories; F41.9 Anxiety disorder, unspecified; F32.9 Major depressive disorder, single episode, unspecified; Z82.49 Family history of ischemic heart disease and other diseases of the circulatory system; Z68.41 Body mass index [BMI] 40.0-44.9, adult; Z86.19 Personal history of other infectious and parasitic diseases; Z87.448 Personal history of other diseases of urinary system; Z88.0 Allergy status to penicillin; Z88.8 Allergy status to other drugs, medicaments and biological substances; Z79.51 Long term (current) use of inhaled steroids; Z90.49 Acquired absence of other specified parts of digestive tract; Z98.890 Other specified postprocedural states; Z90.710 Acquired absence of both cervix and uterus; Z90.89 Acquired absence of other organs; Z90.2 Acquired absence of lung [part of]; W01.0XXA Fall on same level from slipping, tripping and stumbling without subsequent striking against object, 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
CPT/HCPCS: 73562

== ENCOUNTER 2018-12-29 02:22 | Emergency (ER) | payer SELFPAY ==
[~2018-12-29] VITALS: Ht 167.6 cm; Wt 106.6 kg
[~2018-12-29 02:22] MED LIST changes: +PARO10TA81 PO; -TIZA4TAB3 PO; +TIZA4TAB4 PO
[2018-12-29] MEDS ORDERED: LIDOCAINE/EPI 2% 1:100,00 (XYLOCAINE) 20 ML VIAL INJ ONE (02:45)
[2018-12-29] MEDS ORDERED: TETANUS,DIPTH,PERTUSS P/F (BOOSTRIX) 0.5 ML VIAL IM ONE (02:45)
[2018-12-29] MEDS ORDERED: TRIM/SULFAMETH 160/800 (SEPTRA DS) TAB PO ONE (03:15)
[2018-12-29] MEDS ORDERED: IBUPROFEN 800 MG (MOTRIN) TAB PO ONE (03:15)
[2018-12-29] MEDS ORDERED: SULF1TAB35 PO (03:17)
--- NOTE | 2018-12-29 03:17 | ED Upper Extremity ---
General Chief Complaint: Laceration Stated Complaint: RT ARM LAC Nursing Triage Note: c/o lacceration on right distal arm, states was washing dishes and a glass broke. Nursing Sepsis Screen: No Definite Risk Source: patient History of Present Illness Date Seen by Provider: Dec 29, 2018 Time Seen by Provider: 02:32 Initial Comments PT ARRIVES VIA POV -DROVE SELF HERE C/O LACERATION TO RIGHT FOREARM STATES SHE WAS DOING DISHES AND A GLASS BROKE AND CUT HER RIGHT ARM OCCURRED IMMEDIATELY PRIOR TO ARRIVAL NO PARESTHESIAS OR MOTOR DEFICITS PT IS RIGHT HANDED NO PRIOR INJURY TO THIS ARM LAST TETANUS VACCINE IS UNKNOWN MULTITUDE OF VISITS--MOST FOR PAIN / INJURY RELATED COMPLAINTS OR WOUND INFECTIONS. ALWAYS WANTING PAIN MEDICATION SOON SHE ARRIVES, WHICH SHE DOES AGAIN TODAY SOON SHE ARRIVES, ALTHOUGH SHE DID NOT TAKE ANY PRIOR TO ARRIVAL PCP: [facility] Allergies and Home Medications Allergies Coded Allergies: Penicillins (Unverified Allergy, Mild, 07/01/17) dimenhydrinate (Verified Allergy, Mild, 07/01/17) prochlorperazine (Unverified Allergy, Mild, 07/01/17) Uncoded Allergies: ANTI-EMETICS (Allergy, Mild, 03/26/08) ANTI-NAUSEA MEDICATIONS EXCEPT DRAMAMINE (Allergy, Mild, MAKE HER HAVE ANXIETY ATTACKS, 08/29/08) ANTIEMETICS (Allergy, Mild, 12/09/08) NAUSEA MEDS (Allergy, Mild, 12/01/08) Home Medications Albuterol Sulfate 6.7 Gm Hfa.aer.ad, 2 PUFF INH Q4H PRN for SHORTNESS OF BREATH, (Reported) Albuterol Sulfate 6.7 Gm Hfa.aer.ad, 2 PUFF IH Q6H PRN for SHORTNESS OF BREATH Prescribed by: SOMMER DU on 06/20/172109 Clonidine HCl 0.1 Mg Tablet, 0.1 MG PO TID, (Reported) Gabapentin 600 Mg Tablet, 600 MG PO BID, (Reported) Hydroxyzine Pamoate 25 Mg Capsule, 25 MG PO BID, (Reported) Naproxen 500 Mg Tablet, 500 MG PO BID PRN for PAIN-MILD, (Reported) Omeprazole 40 Mg Capsule.dr, 40 MG PO DAILY PRN for HEARTBURN, (Reported) Paroxetine HCl 10 Mg Tablet, 10 MG PO DAILY, (Reported) Sulfamethoxazole/Trimethoprim 1 Each Tablet, 1 EACH PO BID Prescribed by: MARTHA CHASE on 12/29/18 0317 Tizanidine HCl 4 Mg Tablet, 4 MG PO TID, (Reported) Trazodone HCl 100 Mg Tablet, 200 MG PO HS, (Reported) TAKES 2 (100MG) TABLETS Patient Home Medication List Home Medication List Reviewed: Yes Review of Systems Constitutional: no symptoms reported Musculoskeletal: see HPI Skin: see HPI Psychiatric/Neurological: No Symptoms Reported Past Plebkgv-Jivvxz-Whbmle Hx Patient Social History Alcohol Use: Denies Use Recreational Drug Use: Yes (THC) Drug of Choice: THC Smoking Status: Current Everyday Smoker (1 PPD) Type Used: Cigarettes (1 PPD) 2nd Hand Smoke Exposure: No Recent Foreign Travel: No Contact w/Someone Who Travel: No Recent Infectious Disease Expo: No Recent Hopitalizations: No (january 2017 cellulitis rt arm) Physical Abuse: No Sexual Abuse: No Mistreated: No Fear: No Immunizations Up To Date Tetanus Booster (TDap): Unknown PED Vaccines UTD: Yes Date of Pneumonia Vaccine: Jul 26, 2012 Date of Influenza Vaccine: Apr 15, 2018 Seasonal Allergies Seasonal Allergies: Yes Past Medical History Surgeries: Yes (MULTIPLE DEBRIDEMENTS, I&D'S FOR ABSCESSES/CELLULITIS/TENOSYNOVITIS. SURGERY FOR EMPYEMA; LEFT OVARIAN CYST REMOVAL) Appendectomy, Section, Hysterectomy, Oophorectomy, Orthopedic, Tonsillectomy Respiratory: Yes (EMPYEMA--S/P LUNG SURGERY FOR REMOVAL) Asthma Currently Using CPAP: No Currently Using BIPAP: No Cardiac: Yes Hypertension Neurological: Yes Seizure Disorder : No Reproductive Disorders: Yes (MULTIPLE OVARIAN CYSTS. 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 Sexually Transmitted Disease: Yes (HPV, GONORRHEA) HIV/AIDS: No Genitourinary: No Gastrointestinal: Yes Gastroesophageal Reflux, Irritable Bowel Musculoskeletal: Yes Degenerate Disk Disease, Chronic Back Pain Endocrine: Yes (MORBID OBESITY) HEENT: No Loss of Vision: Denies Hearing Impairment: Denies Cancer: No Psychosocial: Yes Sleep Difficulties, Anxiety, Depression Integumentary: Yes (HX OF ABSCESSES, MULTIPLE WOUND INFECTIONS; MRSA, BUT HAS ALSO GROWN OUT MULTIPLE FECAL ORGANISMS FROM HER LAST WOUND OF HER ARM) Blood Disorders: No Family Medical History Diabetes mellitus 19 MOTHER Headache disorder G8 SISTER Myocardial infarction 19 MOTHER STROKE 19 MOTHER No Pertinent Family Hx Physical Exam Vital Signs Vital Signs - First Documented 12/29/18 02:25 Temp 98.0 Pulse 97 Resp 18 B/P (MAP) 125/85 (98) Pulse Ox 98 Capillary Refill : Less Than 3 Seconds Height, Weight, BMI Height: 5'6.00" Weight: 235lbs. 0oz. 106.996991xs; 41.5 BMI Method:Stated General Appearance: obese, other (REEKS OF CIGARETTES; VERY DRAMATIC, WAILING LOUDLY, "HYPERVENTILATING" ( STOPS THIS BEHAVIOR WHEN DISTRACTED, AT WILL ) PT DID NOT HAVE THIS BEHAVIOR IN THE WAITING ROOM, BEHAVIOR BEGAN WHEN SHE WAS BEING WALKED FROM WAITING ROOM TO AN ER ROOM. MARKEDLY EXAGGERATED PAIN RESPONSE ) Shoulder: normal inspection Elbow/Forearm: Right (LACERATION ABOVE. NO FOREIGN BODY IDENTIFIED. NO MUSCLE OR TENDON INVOLVEMENT, MOTOR / SENSORY / VASCULAR INTACT. ) Wrist: Yes normal inspection Hand: normal inspection Neurologic/Tendon: normal sensation, normal motor functions, normal tendon functions Neurologic/Psychiatric: switchman II-XII nml as tested, no motor/sensory deficits, alert, oriented x 3 Skin: normal color, warm/dry, tattoos/piercings (MULTIPLE ), other (LACERATION NOTED ABOVE) Procedures/Interventions Other Wound Location RIGHT ANTERIOR FOREARM Wound Length (cm): 4.5 Wound's Depth, Shape: irregular, flap, sub Q Irrigated w/ Saline (ccs): 1000 Betadine Prep?: No (BETASEPT) Anesthesia: Lidocaine w/ Epi (2%) Staple Repair: Stapler 35W (#8) Suture: Vicryl Suture Size: 4-0 Layer Closure?: 2 Number Deep Layer Sutures: 4 Sterile Dressing Applied?: Yes Progress #4 SUB Q SUTURES WITH 4-0 VICRYL #8 JACK PLACED TO SKIN Progress/Results/Core Measures Results/Orders My Orders Orders - MARTHA CHASE DO Dipht,Pertuss(Acell),Tet Adult (Boostrix (12/29/18 02:45) Lidocaine/Epi 2% 1:100,000 (Xylocaine/Ep (12/29/18 02:45) Wound Dressing-Ed (12/29/18 03:14) Sulfamethoxazole/Trimet Ds Tab (Bactrim (12/29/18 03:15) Ibuprofen Tablet (Motrin Tablet) (12/29/18 03:15) Medications Given in ED Current Medications Medications Dose Ordered Sig/Jesus Route Start Time Stop Time Status Last Admin Dose Admin Diphtheria/ Tetanus/Acell Pertussis 0.5 ml ONCE ONCE IM 12/29/18 02:45 12/29/18 02:46 DC 12/29/18 02:44 0.5 ML Lidocaine/ Epinephrine 20 ml ONCE ONCE INJ 12/29/18 02:45 12/29/18 02:46 DC 12/29/18 02:44 20 ML Vital Signs/I&O 12/29/18 12/29/18 02:25 03:25 Temp 98.0 98.0 Pulse 97 97 Resp 18 18 B/P (MAP) 125/85 (98) 125/85 (98) Pulse Ox 98 98 Blood Pressure Mean: 98 Departure Impression Primary Impression: Laceration of right forearm Additional Impression: Obdowidicv-qrrynvxil-whwrapp (DPT) vaccination administered at current visit Disposition: HOME, SELF-CARE Condition: Improved Departure-Patient Inst. Referrals: [facility] (PCP/Family) Primary Care Physician Patient Instructions: Laceration Repair With [place] (DC), Diphtheria and Tetanus Toxoids, and Acellular Pertussis Vaccine Add. Discharge Instructions: CLEAN WOUND TWICE A DAY WITH ANTIBACTERIAL SOAP AND WATER, AND APPLY FRESH DRESSING TWICE A DAY JACK OUT IN 10-14 DAYS--RETURN TO ER FOR REMOVAL ICE TO AREA AT 20 MINUTE INTERVALS TYLENOL AND MOTRIN NEEDED FOR PAIN FOLLOW UP WITH YOUR DR NEEDED All discharge instructions reviewed with patient and/or family. Voiced understanding. Scripts Sulfamethoxazole/Trimethoprim (Bactrim Ds Tablet) 1 Each Tablet 1 EACH PO BID, #20 TAB Prov: MARTHA CHASE DO 12/29/18 MARTHA CHASE DO Dec 29, 2018 03:17
[2018-12-29 03:25] VITALS: BP 125/85
== END 2018-12-29 03:31 | disposition home or self-care (01) ==
LOC: EDUNIT# 02:22 → ER 02:24
DX: S51.811A Laceration without foreign body of right forearm, 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 (principal); J43.9 Emphysema, unspecified; J45.909 Unspecified asthma, uncomplicated; I10 Essential (primary) hypertension; G40.909 Epilepsy, unspecified, not intractable, without status epilepticus; K21.9 Gastro-esophageal reflux disease without esophagitis; K58.9 Irritable bowel syndrome, unspecified; E66.01 Morbid (severe) obesity due to excess calories; F41.9 Anxiety disorder, unspecified; F32.9 Major depressive disorder, single episode, unspecified; F17.210 Nicotine dependence, cigarettes, uncomplicated; Z90.710 Acquired absence of both cervix and uterus; Z90.89 Acquired absence of other organs; Z90.49 Acquired absence of other specified parts of digestive tract; Z23 Encounter for immunization; Z88.0 Allergy status to penicillin; Z88.6 Allergy status to analgesic agent; W25.XXXA Contact with sharp glass, 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
CPT/HCPCS: 12002; 90715

== ENCOUNTER 2019-05-22 16:55 | Observation (INO) | payer OTHER ==
[~2019-05-22] VITALS: Ht 167 cm; Wt 114.1 kg
[~2019-05-22 16:55] MED LIST changes: -CLON0.5T13 PO; +CLON0.5T4 PO; +OMEP40CA27 PO; -OMEP40CA36 PO
--- NOTE | 2019-05-22 18:00 | NUR ---
PT MOVED TO ROOM 07
--- NOTE | 2019-05-22 18:04 | ED Integumentary General ---
General Chief Complaint: Skin/Wound Problems Stated Complaint: LEFT LEG WOUND Nursing Triage Note: STATES SHE WAS SENT HERE FROM [facility] FOR THE WOUND ON HER LEFT LOWER LEG THAT HAS BEEN THERE FOR X2 DAYS. History of Present Illness Date Seen by Provider: May 22, 2019 Time Seen by Provider: 17:15 Initial Comments 49-year-old female presents for a wound to her left lower extremity. She was started on 05/18/19 with Bactrim, she returned to [facility] today and there were concerns that the wound has worsened and she was referred here. She denies any fevers, but she does report exquisite pain in the left lower extremity. 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 She does not remember a spider bite or any other trauma to the left lower extremity. She is not diabetic. Her last tetanus shot was in the last 5 years. She also reports the wound has become malodorous, describing it as "a animal on the side of the road." She denies any IV drug use or wound issues. Timing/Duration: getting worse Severity: moderate Location: extremities (left lower) Possible Cause: no cause identified Associated Symptoms: No denies symptoms, No blisters; change in skin texture, edema; No fever, No flushing, No headache, No hives, No jaundice, No malaise, No nasal congestion, No numbness, No pallor, No paresthesia, No petechiae, No rash, No sore throat, No swelling/mass/lumps, No tingling, No other Allergies and Home Medications Allergies Coded Allergies: Penicillins (Unverified Allergy, Mild, 07/01/17) dimenhydrinate (Verified Allergy, Mild, 07/01/17) prochlorperazine (Unverified Allergy, Mild, 07/01/17) Uncoded Allergies: ANTI-EMETICS (Allergy, Mild, 03/26/08) ANTI-NAUSEA MEDICATIONS EXCEPT DRAMAMINE (Allergy, Mild, MAKE HER HAVE ANXIETY ATTACKS, 08/29/08) ANTIEMETICS (Allergy, Mild, 12/09/08) NAUSEA MEDS (Allergy, Mild, 12/01/08) Home Medications Albuterol Sulfate 6.7 Gm Hfa.aer.ad, 2 PUFF INH Q4H PRN for SHORTNESS OF BREATH, (Reported) Albuterol Sulfate 6.7 Gm Hfa.aer.ad, 2 PUFF IH Q6H PRN for SHORTNESS OF BREATH Prescribed by: SOMMER DU on 06/20/172109 Clonidine HCl 0.1 Mg Tablet, 0.1 MG PO TID, (Reported) Gabapentin 600 Mg Tablet, 600 MG PO BID, (Reported) Hydroxyzine Pamoate 25 Mg Capsule, 25 MG PO BID, (Reported) Naproxen 500 Mg Tablet, 500 MG PO BID PRN for PAIN-MILD, (Reported) Omeprazole 40 Mg Capsule.dr, 40 MG PO DAILY PRN for HEARTBURN, (Reported) Paroxetine HCl 10 Mg Tablet, 10 MG PO DAILY, (Reported) Sulfamethoxazole/Trimethoprim 1 Each Tablet, 1 EACH PO BID Prescribed by: MARTHA CHASE on 12/29/18316 Tizanidine HCl 4 Mg Tablet, 4 MG PO TID, (Reported) Trazodone HCl 100 Mg Tablet, 200 MG PO HS, (Reported) TAKES 2 (100MG) TABLETS Patient Home Medication List Home Medication List Reviewed: Yes Review of Systems Review of Systems Constitutional: no symptoms reported, see HPI Skin: see HPI, other (abscess left lower extremity.) All Other Systems Reviewed Negative Unless Noted: Yes Past Ltmvqjo-Lgbmdl-Yxziab Hx Past Med/Social Hx: Reviewed Nursing Past Med/Soc Hx Patient Social History Alcohol Use: Denies Use Recreational Drug Use: No Drug of Choice: THC Smoking Status: Current Everyday Smoker Type Used: Cigarettes 2nd Hand Smoke Exposure: No Recent Foreign Travel: No Contact w/Someone Who Travel: No Recent Infectious Disease Expo: No Recent Hopitalizations: No (january 2017 cellulitis rt arm) Immunizations Up To Date Tetanus Booster (TDap): Unknown PED Vaccines UTD: Yes Date of Pneumonia Vaccine: Jul 26, 2012 Date of Influenza Vaccine: Apr 15, 2018 Seasonal Allergies Seasonal Allergies: Yes Past Medical History Surgeries: Yes Appendectomy, Section, Hysterectomy, Oophorectomy, Orthopedic, Tonsil lectomy Respiratory: Yes (EMPYEMA--S/P LUNG SURGERY FOR REMOVAL) Asthma Currently Using CPAP: No Currently Using BIPAP: No Cardiac: Yes Hypertension Neurological: Yes Seizure Disorder Reproductive Disorders: Yes (MULTIPLE OVARIAN CYSTS. 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 Sexually Transmitted Disease: Yes (HPV, GONORRHEA) HIV/AIDS: No Genitourinary: No Gastrointestinal: Yes Gastroesophageal Reflux, Irritable Bowel Musculoskeletal: Yes Degenerate Disk Disease, Chronic Back Pain Endocrine: Yes (MORBID OBESITY) HEENT: No Loss of Vision: Denies Hearing Impairment: Denies Cancer: No Psychosocial: Yes Sleep Difficulties, Anxiety, Depression Integumentary: Yes Blood Disorders: No Family Medical History Diabetes mellitus 19 MOTHER Headache disorder G8 SISTER Myocardial infarction 19 MOTHER STROKE 19 MOTHER No Pertinent Family Hx Physical Exam Vital Signs Vital Signs - First Documented 05/22/19 17:15 Temp 37.1 Pulse 87 Resp 16 B/P (MAP) 150/70 (96) Pulse Ox 97 O2 Delivery Room Air Capillary Refill : Less Than 3 Seconds General Appearance: WD/WN, mild distress (secondary to pain) HEENT: PERRL/EOMI, normal ENT inspection, TMs normal, pharynx normal Neck: non-tender, full range of motion, supple, normal inspection Cardiovascular: normal peripheral pulses, regular rate, rhythm, no edema Respiratory: chest non-tender, lungs clear, normal breath sounds Gastrointestinal: normal bowel sounds, non tender, soft Extremities: normal range of motion, no pedal edema, no calf tenderness, normal capillary refill Neurologic/Psychiatric: no motor/sensory deficits, alert, normal mood/affect, oriented x 3 Skin: normal color, warm/dry Skin Problem Location: lower extremities (left lower extremity, just distal to the knee on the lateral aspect.) Skin Problem Character: abscess, erythema (measuring 10.5 x 8 cm, outlined with a surgical marker), tenderness, other (significant tenderness, inflammation 4X2 cm, eschar noted at center, serosanguineous drainage is actively leaking from wound. Mild fluctuance, moderate induration, warmth. Generalized swelling Left LE below the knee. Pedal pulses 2+ and symetric. ) Lymphatic: no adenopathy Procedures/Interventions Suture Size: 4-0 Progress/Results/Core Measures Results/Orders My Orders Orders - BRENNON GUAJARDO Cbc With Automated Diff (05/22/19 17:44) Comprehensive Metabolic Panel (05/22/19 17:44) Hs C Reactive Protein (05/22/19 17:44) Ua Culture If Indicated (05/22/19 17:44) Blood Culture (05/22/19 17:44) Wound Culture (05/22/19 17:44) Lactic Acid Analyzer (05/22/19 17:44) Vital Signs/I&O 05/22/19 17:15 Temp 37.1 Pulse 87 Resp 16 B/P (MAP) 150/70 (96) Pulse Ox 97 O2 Delivery Room Air Blood Pressure Mean: 96 Progress Progress Note : Time: 17:15 Progress Note Patient seen and evaluated, will obtain labs and a culture of the wound. [address] Sen and Dr. Estes, agreed for admission. Will start vancomycin 1 gm IV every 24 hours and dapsone 100 mg daily. 1830 fentanyl 25 g IV for pain. Departure Impression Primary Impression: Cellulitis of left lower extremity Additional Impression: Abscess of left lower extremity Disposition: ADMITTED INPATIENT Condition: Stable Admissions Decision to Admit Reason: Admit from ER (General) Decision to Admit/Date: May 22, 2019 Time/Decision to Admit Time: 18:00 Departure-Patient Inst. Referrals: [facility] (PCP/Family) Primary Care Physician BRENNON GUAJARDO May 22, 2019 18:04
[2019-05-22 18:26] LABS: BILIRUBIN,URINE NEGATIVE (NEGATIVE); CLARITY,URINE CLEAR; COLOR,URINE YELLOW; GLUCOSE, URINE (UA) NEGATIVE (NEGATIVE); KETONES,URINE NEGATIVE (NEGATIVE); LEUKOCYTE ESTERASE ,URINE NEGATIVE (NEGATIVE); NITRITE,URINE NEGATIVE (NEGATIVE); PH,URINE 6.5 (5-9); PROTEIN,URINE NEGATIVE (NEGATIVE)
[2019-05-22] MEDS ORDERED: fentaNYL INJECTION 100 MCG/2 ML AMP IVP ONE (18:30)
[2019-05-22 18:34] LABS: BACTERIA,URINE TRACE /HPF
[2019-05-22 18:37] LABS: BASOPHILS # (AUTO) 0.1 10^3/uL (0.0-0.1); BASOPHILS % (AUTO) 1 % (0-10); EOSINOPHILS # (AUTO) 0.2 10^3/uL (0.0-0.3); EOSINOPHILS % (AUTO) 3 % (0-10); HEMATOCRIT 37 % (35-52); HEMOGLOBIN 10.8 G/DL (11.5-16.0); LYMPHOCYTES % (AUTO) 27 % (12-44); MEAN CORPUSCULAR HEMOGLOBIN 23 PG (25-34); MEAN CORPUSCULAR HGB CONC 30 G/DL (32-36); MEAN CORPUSCULAR VOLUME 76 FL (80-99); MEAN PLATELET VOLUME 10.5 FL (7.4-10.4); MONOCYTES % (AUTO) 13 % (0-12); NEUTROPHILS # (AUTO) 4.2 X 10^3 (1.8-7.8); NEUTROPHILS % (AUTO) 56 % (42-75); PLATELET COUNT 285 10^3/uL (130-400); RED CELL DISTRIBUTION WIDTH 20.2 % (10.0-14.5); WHITE BLOOD COUNT 7.5 10^3/uL (4.3-11.0)
[2019-05-22 18:41] LABS: AMPHETAMINE SCREEN, URINE NEGATIVE (NEGATIVE); BENZODIAZEPINES SCREEN URINE NEGATIVE (NEGATIVE); CANNABINOID SCREEN, URINE NEGATIVE (NEGATIVE); COCAINE SCREEN URINE NEGATIVE (NEGATIVE); METHAMPHETAMINE SCREEN URINE S NEGATIVE (NEGATIVE)
[2019-05-22 18:42] LABS: BARBITURATE SCREEN URINE NEGATIVE (NEGATIVE); METHADONE STAT NEGATIVE (NEGATIVE); OPIATE SCREEN URINE POSITIVE (NEGATIVE); OXYCODONE STAT NEGATIVE (NEGATIVE); PROPOXYPHENE STAT NEGATIVE (NEGATIVE); TRICYCLIC ANTIDEPRESSANTS SCRE POSITIVE (NEGATIVE)
[2019-05-22 18:43] LABS: ALANINE AMINOTRANSFERASE 13 U/L (0-55); ALBUMIN 3.5 GM/DL (3.2-4.5); ALKALINE PHOSPHATASE 142 U/L (40-136); BILIRUBIN,TOTAL 0.2 MG/DL (0.1-1.0); BUN/CREATININE RATIO 6; CALCIUM 8.8 MG/DL (8.5-10.1); CARBON DIOXIDE 22 MMOL/L (21-32); GFR ESTIMATED > 60; GLUCOSE 102 MG/DL (70-105); TOTAL PROTEIN 7.3 GM/DL (6.4-8.2)
--- NOTE | 2019-05-22 19:00 | NUR ---
PAULA SALAZAR admitted to room 408-1, with an admitting diagnosis of cellulitis of left lower extremity, abscess to left lower extremity, on 05/22/19 from ED via wheelchair, accompanied by staff. PAULA SALAZAR introduced to surroundings, call light, bed controls, phone, TV, temperature control, lights, meal times, smoking policy, visitor policy, side rail policy, bathrooms and showers. Patient Rights given to patient in the handbook. PAULA SALAZAR verbalizes understanding that [facility] is not responsible for the loss or damage to any personal effects or valuables that are kept in the patients posession during their hospitalization.
[2019-05-22 19:02] VITALS: BP 148/82
[2019-05-22 19:07] VITALS: BP 148/82
[2019-05-22 19:13] LABS: CHLORIDE 106 MMOL/L (98-107); POTASSIUM 3.9 MMOL/L (3.6-5.0); SODIUM 140 MMOL/L (135-145)
--- NOTE | 2019-05-22 19:15 | NUR ---
CR 0.7; CR CL > 80; WT 111.3 KG; VANCO 2000 MG IV BOLUS THEN 1500 MG IV Q12H; TROUGH AFTER 3RD DOSE
[2019-05-22] MEDS ORDERED: ACETAMINOPHEN 325 MG TABLET PO PRN (19:30)
[2019-05-22] MEDS ORDERED: VANCOMYCIN 2000 MG/NS 500 ML IVPB IV NR ×2 (19:30)
[2019-05-22] MEDS ORDERED: CATHETER FLUSH 10 ML SYR IV PRN (19:30)
[2019-05-22] MEDS ORDERED: FLU QUADRIvalent (5+ YOA) 2019-2020 (AFLURIA) 0.5 ML IM ONE (20:00)
[2019-05-22] MEDS: NS IV 1000 ML 1,000 ML IV SCH (21:47)
[2019-05-22] MEDS: DAPSONE 100 MG TABLET PO SCH (21:48)
[2019-05-22] MEDS: fentaNYL INJECTION 100 MCG/2 ML AMP IV PRN (21:48)
[2019-05-22] MEDS: ONDANSETRON 4 MG/2 ML (SDV) Z0FRAN IV PRN (22:02)
[2019-05-23] VITALS (15 sets, daily range): BP systolic 109–169; BP diastolic 69–108
[2019-05-23] MEDS: fentaNYL INJECTION 100 MCG/2 ML AMP IV PRN ×5 (02:18→21:19)
[2019-05-23] MEDS: ONDANSETRON 4 MG/2 ML (SDV) Z0FRAN IV PRN (02:19)
[2019-05-23 04:33] LABS: BASOPHILS # (AUTO) 0.1 10^3/uL (0.0-0.1); BASOPHILS % (AUTO) 2 % (0-10); EOSINOPHILS # (AUTO) 0.2 10^3/uL (0.0-0.3); EOSINOPHILS % (AUTO) 3 % (0-10); HEMATOCRIT 36 % (35-52); HEMOGLOBIN 10.6 G/DL (11.5-16.0); LYMPHOCYTES # (AUTO) 2.3 X 10^3 (1.0-4.0); LYMPHOCYTES % (AUTO) 42 % (12-44); MEAN CORPUSCULAR HEMOGLOBIN 23 PG (25-34); MEAN CORPUSCULAR HGB CONC 30 G/DL (32-36); MEAN CORPUSCULAR VOLUME 77 FL (80-99); MEAN PLATELET VOLUME 10.1 FL (7.4-10.4); MONOCYTES # (AUTO) 0.7 X 10^3 (0.0-1.0); MONOCYTES % (AUTO) 12 % (0-12); NEUTROPHILS # (AUTO) 2.2 X 10^3 (1.8-7.8); NEUTROPHILS % (AUTO) 41 % (42-75); PLATELET COUNT 260 10^3/uL (130-400); RED CELL DISTRIBUTION WIDTH 20.2 % (10.0-14.5); WHITE BLOOD COUNT 5.4 10^3/uL (4.3-11.0)
[2019-05-23 05:00] LABS: ALANINE AMINOTRANSFERASE 10 U/L (0-55); ALBUMIN 3.1 GM/DL (3.2-4.5); ALKALINE PHOSPHATASE 126 U/L (40-136); BILIRUBIN,TOTAL 0.2 MG/DL (0.1-1.0); BUN/CREATININE RATIO 5; CALCIUM 8.6 MG/DL (8.5-10.1); CARBON DIOXIDE 25 MMOL/L (21-32); CHLORIDE 109 MMOL/L (98-107); CREATININE SERUM 0.75 MG/DL (0.60-1.30); GFR ESTIMATED > 60; GLUCOSE 91 MG/DL (70-105); SODIUM 144 MMOL/L (135-145); TOTAL PROTEIN 6.4 GM/DL (6.4-8.2)
[2019-05-23] MEDS: NS IV 1000 ML 1,000 ML IV SCH ×2 (06:11→17:41)
--- NOTE | 2019-05-23 07:00 | NUR ---
PT AT [facility] TRYING TO GO DOWN TO SMOKE A CIGARETTE. SPOKE WITH PT AND INFORMED HER SHE IS NOT ALLOWED TO EXIT THE FLOOR TO SMOKE. PT VERY AGITATED STATING SHE IS 49 YEARS OLD AND SHE CAN DO SHE PLEASES. I TOLD HER IF SHE LEAVES THAT SHE WOULD HAVE TO LEAVE AGAINST MEDICAL ADVICE. PT STATES THAT SHE WOULD LEAVE AGAINST MEDICAL ADVICE THEN. I TOLD PT I WOULD BRING THE PAPERWORK BACK TO HER ROOM. WENT IN TO GO OVER PAPERWORK WITH PT. PT STATES "YOU KNOW I CANT LEAVE". I EDUCATED PT THAT HER LEG WAS VERY INFECTED AND SHE NEEDED THE PROPER CARE. PT STATES "I JUST CANT BELIEVE YOU GUYS DONT HAVE ENOUGH COMPASSION TO JUST LET ME GO OUTSIDE AND SMOKE" I EDUCATED PT THAT IT HAD NOTHING TO DO WITH COMPASSION THAT IT WAS JUST AGAINST OUR POLICY. SPOKE WITH DR. MOHAN AND INFORMED HIM OF ABOVE FINDINGS. HE WANTS US TO SEE IF PHARMACY CAN SUBSTITUTE FOR SOMETHING ELSE. SPOKE WITH PHARMACY AND THE ONLY OTHER OPTIONS WERE NICOTINE GUM AND NICOTINE LOZENGES. SPOKE WITH DR. MOHAN TO OKAY. HE SAID NO TO BOTH OPTIONS BC PT MIGHT POSSIBLY BE GOING TO SURGERY TODAY.
--- NOTE | 2019-05-23 07:12 | Consultation - Surgery ---
MAI JOHNSON,MED STUDENT 05/23/19 0712: History of Present Illness History of Present Illness Patient Consulted On(alexi/time) 05/23/19 07:03 Date Seen by Provider: May 23, 2019 Time Seen by Provider: 06:30 Reason for Visit: Cellultis of Left lower extremity History of Present Illness Patient is a 49y/o female that presented to the ED d/t worsening of wound on left lower extremity. Patient was seen at [facility] on 05/18/2019 to have it Left lower extremity examined because it was erythemic, hot, and painful rated as a 7/10. Doctor at [facility] was unsure if the wound was initially a spider bite. She was given Bactrim but it did not help and wound worsened. Today patient, is still having pain in left lower extremity around wound that is rated as a 10/10. She is curious as to what the plan is because she has been NPO since midnight and does not want to stay in the hospital for long because she has a dog to take care of at home. Allergies and Home Medications Allergies Coded Allergies: Penicillins (Unverified Allergy, Mild, 07/01/17) dimenhydrinate (Verified Allergy, Mild, 07/01/17) prochlorperazine (Unverified Allergy, Mild, 07/01/17) Uncoded Allergies: ANTI-EMETICS (Allergy, Mild, 03/26/08) ANTI-NAUSEA MEDICATIONS EXCEPT DRAMAMINE (Allergy, Mild, MAKE HER HAVE ANXIETY ATTACKS, 08/29/08) ANTIEMETICS (Allergy, Mild, 12/09/08) NAUSEA MEDS (Allergy, Mild, 12/01/08) Home Medications Albuterol Sulfate 6.7 Gm Hfa.aer.ad, 2 PUFF INH Q4H PRN for SHORTNESS OF BREATH, (Reported) Albuterol Sulfate 6.7 Gm Hfa.aer.ad, 2 PUFF IH Q6H PRN for SHORTNESS OF BREATH Prescribed by: SOMMER DU on 06/20/172109 Clonidine HCl 0.1 Mg Tablet, 0.1 MG PO TID, (Reported) Gabapentin 600 Mg Tablet, 600 MG PO BID, (Reported) Hydroxyzine Pamoate 25 Mg Capsule, 25 MG PO BID, (Reported) Naproxen 500 Mg Tablet, 500 MG PO BID PRN for PAIN-MILD, (Reported) Omeprazole 40 Mg Capsule.dr, 40 MG PO DAILY PRN for HEARTBURN, (Reported) Paroxetine HCl 10 Mg Tablet, 10 MG PO DAILY, (Reported) Sulfamethoxazole/Trimethoprim 1 Each Tablet, 1 EACH PO BID Prescribed by: MARTHA CHASE on 12/29/187 Tizanidine HCl 4 Mg Tablet, 4 MG PO TID, (Reported) Trazodone HCl 100 Mg Tablet, 200 MG PO HS, (Reported) TAKES 2 (100MG) TABLETS Past Hvpmzlf-Glcfmg-Gogdms Hx Patient Social History Alcohol Use: Denies Use Recreational Drug Use: No Drug of Choice: THC Smoking Status: Current Everyday Smoker (1ppd for 31yrs ) Type Used: Cigarettes 2nd Hand Smoke Exposure: No Recent Foreign Travel: No Contact w/Someone Who Travel: No Recent Infectious Disease Expo: No Recent Hopitalizations: No (january 2017 cellulitis rt arm) Immunizations Up To Date Tetanus Booster (TDap): Unknown PED Vaccines UTD: Yes Date of Pneumonia Vaccine: May 22, 2015 Date of Influenza Vaccine: Apr 15, 2018 Seasonal Allergies Seasonal Allergies: Yes Surgeries History of Surgeries: Yes Surgeries: Appendectomy, Section, Hysterectomy, Oophorectomy, Orthopedic, Tonsillectomy Respiratory History of Respiratory Disorde: Yes (EMPYEMA--S/P LUNG SURGERY FOR REMOVAL) Respiratory Disorders: Asthma, Chronic Bronchitis Cardiovascular History of Cardiac Disorders: Yes Cardiac Disorders: Hypertension Neurological History of Neurological Disord: Yes Neurological Disorders: Seizure Disorder Reproductive System Hx Reproductive Disorders: Yes (MULTIPLE OVARIAN CYSTS. 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 Genitourinary History of Genitourinary Disor: No Gastrointestinal History of Gastrointestinal Di: Yes Gastrointestinal Disorders: Gastroesophageal Reflux, Irritable Bowel Musculoskeletal History of Musculoskeletal Dis: Yes Musculoskeletal Disorders: Degenerate Disk Disease, Chronic Back Pain Endocrine History of Endocrine Disorders: Yes (MORBID OBESITY) HEENT History of HEENT Disorders: No Loss of Vision: Denies Hearing Impairment: Denies Cancer History of Cancer: No Psychosocial History of Psychiatric Problem: Yes Behavioral Health Disorders: Sleep Difficulties, Anxiety, Depression Integumentary History of Skin or Integumenta: Yes Blood Transfusions History of Blood Disorders: No Family Medical History Significant Family History: No Pertinent Family Hx, DVT/PE, Stroke, Other Conditions/Hx (Chronic low back pain ) Family Medial History: Blood clots G8 BROTHER G8 SISTER Diabetes mellitus 19 MOTHER Headache disorder G8 SISTER Myocardial infarction 19 MOTHER STROKE 19 MOTHER G8 BROTHER Review of Systems-General Constitutional: chills, fever EENTM: No hearing loss, No blurred vision, No double vision, No throat pain, No throat swelling Respiratory: cough (Hx of chronic bronchitis ), phlegm; No short of breath; wheezing Cardiovascular: No chest pain; edema (in left lower extremity ); No Hx of Intervention, No palpitations Gastrointestinal: No abdominal pain, No constipation, No diarrhea, No nausea Genitourinary: No dysuria, No frequency Musculoskeletal: back pain (chronic low back pain ), muscle pain (left lower extremity ), muscle stiffness (Left lower extremity ), muscle twitching (left lower extremity ) Skin: lesions (Currently on Left lower extremity; Hx of other infections that have required surgery ) Psychiatric/Neurological: Anxiety, Depressed Physical Exam-General Problems Physical Exam Vital Signs Vital Signs - First Documented 05/22/19 17:15 Temp 37.1 Pulse 87 Resp 16 B/P (MAP) 150/70 (96) Pulse Ox 97 O2 Delivery Room Air Capillary Refill : Less Than 3 Seconds General Appearance: WD/WN, obese HEENT: PERRL/EOMI; No scleral icterus (R), No scleral icterus (L), No pale conjunctivae (R), No pale conjunctivae (L) Neck: non-tender, full range of motion, supple; No lymphadenopathy (R), No lymphadenopathy (L) Respiratory: chest non-tender, lungs clear, no respiratory distress, no accessory muscle use, wheezing, expiration Cardiovascular: regular rate, rhythm, no murmur, other (Scar on lateral right chest wall form previous chest tube. ) Gastrointestinal: normal bowel sounds, non tender, soft, no organomegaly, no pulsatile mass, other (small scars from previous Laproscopic procedures ) Extremities: calf tenderness (on Left side ), inflammation (On left ), pedal edema (On left side only ), swelling (on left side one ), other (Circular lesion about 4-5cm in diameter with a black central area and erythemic surround border. Is malodorous. ) Neurologic/Psychiatric: alert, normal mood/affect, oriented x 3, motor weakness (dorsiflex of Left foot and hip flex on left where 4/5 for strength upon testing ) Skin: normal color, warm/dry, other (nurmous scars on extremities from previous infections. Lesion on Lateral left lower leg just below the knee. ) Data Review Labs Laboratory Tests 05/22/19 18:03: White Blood Count 7.5, Red Blood Count 4.80, Hemoglobin 10.8L, Hematocrit 37, Mean Corpuscular Volume 76L, Mean Corpuscular Hemoglobin 23L, Mean Corpuscular Hemoglobin Concent 30L, Red Cell Distribution Width 20.2H, Platelet Count 285, Mean Platelet Volume 10.5H, Neutrophils (%) (Auto) 56, Lymphocytes (%) (Auto) 27, Monocytes (%) (Auto) 13H, Eosinophils (%) (Auto) 3, Basophils (%) (Auto) 1, Neutrophils # (Auto) 4.2, Lymphocytes # (Auto) 2.0, Monocytes # (Auto) 1.0, Eosinophils # (Auto) 0.2, Basophils # (Auto) 0.1, Sodium Level 140, Potassium Level 3.9, Chloride Level 106, Carbon Dioxide Level 22, Anion Gap 12, Blood Urea Nitrogen 4L, Creatinine 0.70, Estimat Glomerular Filtration Rate > 60, BUN/Creatinine Ratio 6, Glucose Level 102, Lactic Acid Level 1.13, Calcium Level 8.8, Corrected Calcium 9.2, Total Bilirubin 0.2, Aspartate Amino Transf (AST/SGOT) 21, Alanine Aminotransferase (ALT/SGPT) 13, Alkaline Phosphatase 142H , C-Reactive Protein High Sensitivity 1.36H, Total Protein 7.3, Albumin 3.5 05/22/19 18:15: Urine Color YELLOW, Urine Clarity CLEAR, Urine pH 6.5, Urine Specific [place] <=1.005, Urine Protein NEGATIVE, Urine Glucose (UA) NEGATIVE, Urine Ketones NEGATIVE, Urine Nitrite NEGATIVE, Urine Bilirubin NEGATIVE, Urine Urobilinogen 0.2, Urine Leukocyte Esterase NEGATIVE, Urine RBC (Auto) NEGATIVE, Urine RBC NONE, Urine WBC NONE, Urine Squamous Epithelial Cells 2-5, Urine Crystals NONE, Urine Bacteria TRACE, Urine Casts NONE, Urine Mucus NEGATIVE, Urine Culture Indicated NO, Urine Opiates Screen POSITIVEH, Urine Oxycodone Screen NEGATIVE, Urine Methadone Screen NEGATIVE, Urine Propoxyphene Screen NEGATIVE, Urine Barbiturates Screen NEGATIVE, Ur Tricyclic Antidepressants Screen POSITIVEH, Urine Phencyclidine Screen NEGATIVE, Urine Amphetamines Screen NEGATIVE, Urine Methamphetamines Screen NEGATIVE, Urine Benzodiazepines Screen NEGATIVE, Urine Cocaine Screen NEGATIVE, Urine Cannabinoids Screen NEGATIVE 05/23/19 04:15: White Blood Count 5.4, Red Blood Count 4.63, Hemoglobin 10.6L, Hematocrit 36, Mean Corpuscular Volume 77L, Mean Corpuscular Hemoglobin 23L, Mean Corpuscular Hemoglobin Concent 30L, Red Cell Distribution Width 20.2H, Platelet Count 260, Mean Platelet Volume 10.1, Neutrophils (%) (Auto) 41L, Lymphocytes (%) (Auto) 42, Monocytes (%) (Auto) 12, Eosinophils (%) (Auto) 3, Basophils (%) (Auto) 2, Neutrophils # (Auto) 2.2, Lymphocytes # (Auto) 2.3, Monocytes # (Auto) 0.7, Eosinophils # (Auto) 0.2, Basophils # (Auto) 0.1, Sodium Level 144, Potassium Level 4.0, Chloride Level 109H, Carbon Dioxide Level 25, Anion Gap 10, Blood Urea Nitrogen 4L, Creatinine 0.75, Estimat Glomerular Filtration Rate > 60, BUN/Creatinine Ratio 5, Glucose Level 91, Calcium Level 8.6, Corrected Calcium 9.3, Total Bilirubin 0.2, Aspartate Amino Transf (AST/SGOT) 16, Alanine Aminotransferase (ALT/SGPT) 10, Alkaline Phosphatase 126, Total Protein 6.4, Albumin 3.1L Assessment/Plan Assessment/Plan Assessment/Plan Cellulitis of Left lower extremity - continue IV fluids, vancomycin and dapsone - consider I&D of lesion - culture wound Hx of MRSA - consider isolation Hx of Chronic Bronchitis Clinical Quality Measures DVT/VTE Risk/Contraindication: Risk Factor Score Per Nursin RFS Level Per Nursing on Admit: 3=High ONESIMO MOHAN DO 05/23/19 0846: History of Present Illness History of Present Illness History of Present Illness consult requested by Dr. Estes for left lower ext cellulitis/abscess. patient has had approximately 1 week. Was placed on bactrim and has continued to worsen. Patient states pain severe 10/10. No radiation of pain. Nothing makin g better. Touching or moving extremity makes worse. Denies any fever, sweats chills shortness of breath or chest pain. Allergies and Home Medications Allergies Coded Allergies: Penicillins (Unverified Allergy, Mild, 07/01/17) dimenhydrinate (Verified Allergy, Mild, 07/01/17) prochlorperazine (Unverified Allergy, Mild, 07/01/17) Uncoded Allergies: ANTI-EMETICS (Allergy, Mild, 03/26/08) ANTI-NAUSEA MEDICATIONS EXCEPT DRAMAMINE (Allergy, Mild, MAKE HER HAVE ANXIETY ATTACKS, 08/29/08) ANTIEMETICS (Allergy, Mild, 12/09/08) NAUSEA MEDS (Allergy, Mild, 12/01/08) Home Medications Albuterol Sulfate 6.7 Gm Hfa.aer.ad, 2 PUFF INH Q4H PRN for SHORTNESS OF BREATH, (Reported) Albuterol Sulfate 6.7 Gm Hfa.aer.ad, 2 PUFF IH Q6H PRN for SHORTNESS OF BREATH Prescribed by: SOMMER DU on 06/20/172109 Clonidine HCl 0.1 Mg Tablet, 0.1 MG PO TID, (Reported) Gabapentin 600 Mg Tablet, 600 MG PO BID, (Reported) Hydroxyzine Pamoate 25 Mg Capsule, 25 MG PO BID, (Reported) Naproxen 500 Mg Tablet, 500 MG PO BID PRN for PAIN-MILD, (Reported) Omeprazole 40 Mg Capsule.dr, 40 MG PO DAILY PRN for HEARTBURN, (Reported) Paroxetine HCl 10 Mg Tablet, 10 MG PO DAILY, (Reported) Sulfamethoxazole/Trimethoprim 1 Each Tablet, 1 EACH PO BID Prescribed by: MARTHA CHASE on 12/29/18316 Tizanidine HCl 4 Mg Tablet, 4 MG PO TID, (Reported) Trazodone HCl 100 Mg Tablet, 200 MG PO HS, (Reported) TAKES 2 (100MG) TABLETS Patient Home Medication List Home Medication List Reviewed: Yes Past Ttedrij-Dtjzuf-Zmnhjw Hx Patient Social History Smoking Status: Current Everyday Smoker (1ppd for 31yrs ) Respiratory Respiratory Disorders: Asthma, Chronic Bronchitis Family Medical History Significant Family History: DVT/PE, Stroke, Other Conditions/Hx (Chronic low back pain ) Family Medial History: Blood clots G8 BROTHER G8 SISTER Diabetes mellitus 19 MOTHER Headache disorder G8 SISTER Myocardial infarction 19 MOTHER STROKE 19 MOTHER G8 BROTHER Review of Systems-General Constitutional: No chills, No fever EENTM: No blurred vision, No throat pain Respiratory: no symptoms reported, cough (Hx of chronic bronchitis ) Cardiovascular: No chest pain, No palpitations Gastrointestinal: No abdominal pain, No constipation Musculoskeletal: back pain (chronic low back pain ), muscle pain (left lower extremity ), muscle stiffness (Left lower extremity ) Skin: see HPI, change in color Psychiatric/Neurological: Anxiety, Depressed Physical Exam-General Problems Physical Exam General Appearance: WD/WN, no apparent distress HEENT: PERRL/EOMI, normal ENT inspection Neck: non-tender, full range of motion, supple Respiratory: chest non-tender, no respiratory distress, no accessory muscle use, wheezing Cardiovascular: regular rate, rhythm Gastrointestinal: non tender, soft, no organomegaly Back: no CVA tenderness Extremities: calf tenderness (on Left side celluluis necrotic area of skin and fluctuance) Neurologic/Psychiatric: alert, normal mood/affect, oriented x 3 Skin: other (nurmous scars on extremities from previous infections. cellulitis/abscess with necrotic tissue on Lateral left lower leg just below the knee. ) Lymphatic: no adenopathy Assessment/Plan Assessment/Plan Assessment/Plan cellulitis/abscess left lower extremity hx of mrsa npo iv abx discussed risks and benefits of incisions and drainage all other indicated procedures understands and wishes to proceed. to or today Supervisory-Addendum Brief Verification & Attestation Participated in pt care: history, MDM, physical Personally performed: exam, history, MDM, supervision of care Care discussed with: Medical Student Procedures: n/a Results interpretation: Verified all documentation Verification and Attestation of Medical Student E/M Service A medical student performed and documented this service in my presence. I reviewed and verified all information documented by the medical student and made modifications to such information, when appropriate. I personally performed the physical exam and medical decision making. Onesimo Mohan, May 23, 2019,08:50 MAI JOHNSON,MED STUDENT May 23, 2019 07:12 ONESIMO MOHAN DO May 23, 2019 08:46
[2019-05-23] MEDS ORDERED: VANCOMYCIN 1500 MG/NS 500 ML IVPB IV SCH ×2 (07:30)
[2019-05-23] MEDS ORDERED: LACTATED RINGERS 1,000 ML IV PRN (09:16)
[2019-05-23] MEDS ORDERED: MIDAZOLAM 2 MG/2 ML (VERSED) VIAL ONE (09:49)
[2019-05-23] MEDS ORDERED: ONDANSETRON 4 MG/2 ML (SDV) Z0FRAN ONE (09:49)
[2019-05-23] MEDS ORDERED: fentaNYL INJECTION 100 MCG/2 ML AMP ONE (09:49)
[2019-05-23] MEDS ORDERED: LIDOCAINE PF 2% 5 ML (XYLOCAINE) VIAL ONE (09:49)
[2019-05-23] MEDS ORDERED: proPOfol 200 MG/20 ML (DIPRIVAN) VIAL IV ONE ×2 (09:49→10:12)
[2019-05-23] MEDS ORDERED: SEVOFLURANE (ULTANE) 15 ML INHAL SOLN ONE ×2 (09:50→10:11)
[2019-05-23] MEDS ORDERED: DEXAMETHASONE 10 MG/ML (DECADRON) 1 ML VIAL ONE (10:00)
[2019-05-23] MEDS ORDERED: ONDANSETRON 4 MG/2 ML (SDV) Z0FRAN IVP PRN (10:45)
[2019-05-23] MEDS ORDERED: HYDROmorphone 2 MG/ML VIAL (DILAUDID) IV ONE (10:45)
[2019-05-23] MEDS: morphine INJ 10 MG/ML 1ML (SYR OR VIAL) IVP ONE (11:19)
--- NOTE | 2019-05-23 12:46 | Anesthesia-General Post-Op ---
General Patient Condition Mental Status/LOC: Same as Preop Cardiovascular: Satisfactory Nausea/Vomiting: Absent Respiratory: Satisfactory Pain: Controlled Complications: Absent Post Op Complications Complications None Follow Up Care/Instructions Patient Instructions None needed. Anesthesia/Patient Condition Patient Condition Patient is doing well, no complaints, stable vital signs, no apparent adverse anesthesia problems. No complications reported per nursing. NAYELI THORNTON CRNA May 23, 2019 12:45
[2019-05-23] MEDS ORDERED: CYCL10TA9 PO (13:16)
[2019-05-23] MEDS ORDERED: HYDR-3781 PO (13:16)
[2019-05-23] MEDS ORDERED: BUSP15TA60 PO (13:16)
[2019-05-23] MEDS ORDERED: CLON0.1T PO (13:16)
[2019-05-23] MEDS ORDERED: GABA800T10 PO (13:16)
[2019-05-23] MEDS ORDERED: OXYB5TAB13 PO (13:16)
[2019-05-23] MEDS ORDERED: TRAZ-190 PO (13:16)
[2019-05-23] MEDS ORDERED: HYDR-3812 PO (13:16)
[2019-05-23] MEDS ORDERED: SULF1TAB35 PO (13:16)
[2019-05-23] MEDS ORDERED: PREG100C PO (13:23)
--- NOTE | 2019-05-23 14:38 | NUR ---
"RD ASSESSMENT PMHx: HTN; GERD PT INTERACTION: Pt was semi-awake and pleasant during consult for MST score. Pt states current appetite is pretty good and has been for some time. Note PO intake of 100% x1meal, per chart review. Pt states following a regular diet at home and has no recent issues with chewing/swallowing food. Pt states recent episodes of nausea, but not vomiting. Pt states n orecent issues with constipation/diarrhea and that her last BM was 05/22. Note pt not currently on bowel regimen per chart review. Pt states recent 20# wt loss x6mon. Note 17# wt gain x4mon, per chart review. Given pt PO intake and wt hx, pt does not meet criteria for malnutrition per ASPEN guidelines. ABNORMAL NUTRITION-RELATED LAB VALUES LOW: BUN 4; alb 3.1 HIGH: Cl 109 Est. kcal needs: 0748-6035 kcal | 15-18 kcal/kg Est. Pro needs: 114-136 g Pro | 1.0-1.2 g Pro/kg PES STATEMENT: Inadequate protein intake (NI-5.6.1) related to increased protein needs as evidenced by wounds (left lower extremity) INTERVENTION: Note pt is currently NPO. Would recommend advancing diet to regular diet, when medically able and as tolerated. Upon diet advancement, would recommend adding Ensure HP to meals TID. Provides 160 kcal and 16 g Pro per serving for perceived benefit to wound healing. Will continue to follow and reassess as pt needs and status change. MONITOR/EVALUATE: PO Intake; Plan of Care; Hydration Status; Weight Status; Lab Values Sha Curry, MS, RD, LD"
[2019-05-23] MEDS ORDERED: PARO40TA3 PO (14:50)
[2019-05-23] MEDS ORDERED: DIPH25CA79 PO (14:55)
[2019-05-23] MEDS ORDERED: FAMO20TA3 PO (14:55)
--- NOTE | 2019-05-23 14:58 | NUR ---
HAD A LIST FAXED OVER FROM [facility] AT [facility]. I WENT OVER THIS LIST WITH THE PATIENT AND SHE VERIFIED HOW SHE TAKES THEM. [facility] FILLED: 05-18-2019 BACTRIM DS BID X 10 DAYS #20 05-18-2019 HYDROCODONE 5-325MG 1 TAB Q6H PRN #60 05-17-2019 OXYBUTYNIN 5MG BID #60 (NOT PICKED UP YET, NEW RX) 05-17-2019 CLONIDINE 0.1MG TID #90 05-17-2019 BUSPIRONE 15MG BID #60 05-17-2019 HYDROXYZINE ARNOL 25MG TID PRN #90 04-27-19 CYCLOBENZAPRINE 10MG TID PRN #90 04-26-19 GABAPENTIN 800MG TID #90 04-11-19 TRAZODONE 100MG 2 HS #60 04-11-19 PAROXETINE 40MG DAILY #30 02-15-19 LYRICA 100MG TID #90 (NO LONGER TAKING, CHANGED TO GABAPENTIN) THEY HAVE A SCRIPT ON HOLD FOR OMEPRAZOLE BUT IT HAS NEVER BEEN DISPENSED, SHE STATES SHE DOES NOT TAKE IT DAILY BECAUSE IT INTERFERES WITH ANOTHER PRESCRIPTION MED BUT SHE DOES TAKE PEPCID OTC NEEDED. SHE STATES SHE TAKES BENADRYL AND PEPCID OTC PRN. THE LIST FROM MEDICAL RECORDS ALSO INCLUDES LATUDA WHICH SHE STATES SHE RECEIVED SAMPLES OF BUT DID NOT THINK IT WORKED SO SHE QUIT TAKING IT. ALSO LISTED WAS BUSPIRONE 10MG AND HYDROXYZINE HCL 25MG- THESE TWO HAVE NOT BEEN FILLED SHE HAS FILLED OTHER DOSES OR FORMULATIONS, I DID NOT INCLUDE THESE ON THE MED REC. ALSO LISTED WAS PROAIR INHALER, SHE HAS NOT FILLED THIS RECENTLY AND SHE STATES SHE DOES NOT HAVE ONE ON HAND, I REMOVED IT FROM THE MED REC. GABAPENTIN WAS NOT LISTED HOWEVER WAS FILLED RECENTLY AND SHE STATES SHE DOES TAKE SO I ADDED IT TO THE MED REC.
[2019-05-23] MEDS: ceFAZolin 2 GM/50 ML NS 50 ML IV SCH ×2 (15:00→22:21)
--- NOTE | 2019-05-23 17:42 | History & Physical ---
HPI History of Present Illness: 49 yo female came to ER due to worsening redness and foul smell to sore on leg. She was feeling chills and feverish. She is anxious to go home. She had debridement done this morning. Source: patient Date seen by provider: May 23, 2019 Time Seen by Provider: 14:00 Attending Physician Shahnaz Estes MD PCP Center/[facility] [place],Former[facility], [facility] Consult Date of Admission May 22, 2019 at 18:00 Home Medications Home Medications Reviewed patient Home Medication Reconciliation performed by pharmacy medication reconciliations hydroelectric plant technician and/or nursing. Patients Allergies have been reviewed. Allergies Coded Allergies: Penicillins (Unverified Allergy, Mild, 07/01/17) dimenhydrinate (Verified Allergy, Mild, 07/01/17) prochlorperazine (Unverified Allergy, Mild, 07/01/17) Uncoded Allergies: ANTI-EMETICS (Allergy, Mild, 03/26/08) ANTI-NAUSEA MEDICATIONS EXCEPT DRAMAMINE (Allergy, Mild, MAKE HER HAVE ANXIETY ATTACKS, 08/29/08) ANTIEMETICS (Allergy, Mild, 12/09/08) NAUSEA MEDS (Allergy, Mild, 12/01/08) ICV-Lfqhdd-Aaxmst Hx Patient Social History Alcohol Use: Denies Use Recreational Drug Use: No Drug of Choice: THC Smoking Status: Current Everyday Smoker (1ppd for 31yrs ) Type Used: Cigarettes 2nd Hand Smoke Exposure: No Recent Foreign Travel: No Contact w/other who traveled: No Recent Hopitalizations: No (january 2017 cellulitis rt arm) Recent Infectious Disease Expo: No Immunizations Up To Date Tetanus Booster (TDap): Unknown Date of Pneumonia Vaccine: May 22, 2015 Date of Influenza Vaccine: Apr 15, 2018 Past Medical History Anxiety HTN Headaches Chronic, slow healing wounds Constipation Morbid Obesit Tobacco Abuse Chronic Pain Pulmonary Venous Congestion History of Seizures History of TIA Seasonal Allergies GERD Cellulitis SurgHx: Hysterectomy Salpingectomy/oophorectomy Appendectomy Multiple surgical debridements/I&Ds for skin infections Family Medical History Significant Family History: DVT/PE, Stroke, Other Conditions/Hx (Chronic low back pain ) Review of Systems (CHC) Constitutional: chills, fever EENTM: nose congestion, throat pain Respiratory: cough Gastrointestinal: no symptoms reported Genitourinary: no symptoms reported Skin: see HPI Psychiatric/Neurological: Anxiety Reviewed Test Results Reviewed Test Results Lab Laboratory Tests Test 05/22/19 18:03 05/22/19 18:15 05/23/19 04:15 Range/Units White Blood Count 7.5 5.4 4.3-11.0 10^3/uL Red Blood Count 4.80 4.63 4.35-5.85 10^6/uL Hemoglobin 10.8 L 10.6 L 11.5-16.0 G/DL Hematocrit 37 36 35-52 % Mean Corpuscular Volume 76 L 77 L 80-99 FL Mean Corpuscular Hemoglobin 23 L 23 L 25-34 PG Mean Corpuscular Hemoglobin Concent 30 L 30 L 32-36 G/DL Red Cell Distribution Width 20.2 H 20.2 H 10.0-14.5 % Platelet Count 285 260 130-400 10^3/uL Mean Platelet Volume 10.5 H 10.1 7.4-10.4 FL Neutrophils (%) (Auto) 56 41 L 42-75 % Lymphocytes (%) (Auto) 27 42 12-44 % Monocytes (%) (Auto) 13 H 12 0-12 % Eosinophils (%) (Auto) 3 3 0-10 % Basophils (%) (Auto) 1 2 0-10 % Neutrophils # (Auto) 4.2 2.2 1.8-7.8 X 10^3 Lymphocytes # (Auto) 2.0 2.3 1.0-4.0 X 10^3 Monocytes # (Auto) 1.0 0.7 0.0-1.0 X 10^3 Eosinophils # (Auto) 0.2 0.2 0.0-0.3 10^3/uL Basophils # (Auto) 0.1 0.1 0.0-0.1 10^3/uL Sodium Level 140 144 135-145 MMOL/L Potassium Level 3.9 4.0 3.6-5.0 MMOL/L Chloride Level 106 109 H 98-107 MMOL/L Carbon Dioxide Level 22 25 21-32 MMOL/L Anion Gap 12 10 5-14 MMOL/L Blood Urea Nitrogen 4 L 4 L 7-18 MG/DL Creatinine 0.70 0.75 0.60-1.30 MG/DL Estimat Glomerular Filtration Rate > 60 > 60 BUN/Creatinine Ratio 6 5 Glucose Level 102 91 70-105 MG/DL Lactic Acid Level 1.13 0.50-2.00 MMOL/L Calcium Level 8.8 8.6 8.5-10.1 MG/DL Corrected Calcium 9.2 9.3 8.5-10.1 MG/DL Total Bilirubin 0.2 0.2 0.1-1.0 MG/DL Aspartate Amino Transf (AST/SGOT) 21 16 5-34 U/L Alanine Aminotransferase (ALT/SGPT) 13 10 0-55 U/L Alkaline Phosphatase 142 H 126 40-136 U/L C-Reactive Protein High Sensitivity 1.36 H 0.00-0.50 MG/DL Total Protein 7.3 6.4 6.4-8.2 GM/DL Albumin 3.5 3.1 L 3.2-4.5 GM/DL Urine Color YELLOW Urine Clarity CLEAR Urine pH 6.5 5-9 Urine Specific [place] <=1.005 1.016-1.022 Urine Protein NEGATIVE NEGATIVE Urine Glucose (UA) NEGATIVE NEGATIVE Urine Ketones NEGATIVE NEGATIVE Urine Nitrite NEGATIVE NEGATIVE Urine Bilirubin NEGATIVE NEGATIVE Urine Urobilinogen 0.2 < = 1.0 MG/DL Urine Leukocyte Esterase NEGATIVE NEGATIVE Urine RBC (Auto) NEGATIVE NEGATIVE Urine RBC NONE /HPF Urine WBC NONE /HPF Urine Squamous Epithelial Cells 2-5 /HPF Urine Crystals NONE /LPF Urine Bacteria TRACE /HPF Urine Casts NONE /LPF Urine Mucus NEGATIVE /LPF Urine Culture Indicated NO Urine Opiates Screen POSITIVE H NEGATIVE Urine Oxycodone Screen NEGATIVE NEGATIVE Urine Methadone Screen NEGATIVE NEGATIVE Urine Propoxyphene Screen NEGATIVE NEGATIVE Urine Barbiturates Screen NEGATIVE NEGATIVE Ur Tricyclic Antidepressants Screen POSITIVE H NEGATIVE Urine Phencyclidine Screen NEGATIVE NEGATIVE Urine Amphetamines Screen NEGATIVE NEGATIVE Urine Methamphetamines Screen NEGATIVE NEGATIVE Urine Benzodiazepines Screen NEGATIVE NEGATIVE Urine Cocaine Screen NEGATIVE NEGATIVE Urine Cannabinoids Screen NEGATIVE NEGATIVE Physical Exam-(CHC) Physical Exam Vital Signs VS - Last 72 Hours, by Label 05/22/19 05/22/19 05/22/19 05/22/19 17:15 18:50 19:02 19:07 Temp 37.1 37.1 37.1 37.1 Pulse 87 87 79 79 Resp 16 16 20 20 B/P (MAP) 150/70 (96) 138/72 (96) 148/82 148/82 (104) Pulse Ox 97 97 98 98 O2 Delivery Room Air Room Air Room Air 05/22/19 05/23/19 05/23/198/20 19:15 00:24 03:38 08:00 Temp 36.4 36.3 Pulse 84 72 Resp 20 22 B/P (MAP) 117/75 (89) 120/69 (86) Pulse Ox 96 96 98 O2 Delivery Room Air Room Air Room Air Room Air 05/23/19 05/23/19 05/23/19 05/23/19 08:06 10:37 10:37 10:40 Temp 36.8 36.2 Pulse 70 Resp 20 16 16 B/P (MAP) 109/70 (83) 122/77 (92) 125/79 (94) Pulse Ox 98 94 100 O2 Delivery Room Air OxyMask OxyMask OxyMask O2 Flow Rate 10 10 100 05/23/19 05/23/19 05/23/19 05/23/19 10:50 10:50 11:00 11:00 Resp 16 16 B/P (MAP) 131/85 (100) 136/86 (103) Pulse Ox 100 94 O2 Delivery OxyMask OxyMask OxyMask O2 Flow Rate 10 5 10 05/23/19 05/23/19 05/23/19 05/23/19 11:10 11:10 11:20 11:25 Resp 16 6 B/P (MAP) 143/90 (107) 169/108 (128) Pulse Ox 93 93 O2 Delivery OxyMask OxyMask OxyMask OxyMask O2 Flow Rate 5 5 5 10 05/23/19 05/23/19 05/23/19 05/23/19 11:30 11:40 11:40 11:50 Resp 16 16 B/P (MAP) 115/104 (108) 158/100 (119) Pulse Ox 93 95 O2 Delivery OxyMask OxyMask Nasal Cannula Nasal Cannula O2 Flow Rate 5 5 3 3 05/23/19 05/23/19 05/23/19 05/23/19 11:50 12:00 12:44 16:19 Temp 36.1 36.9 36.8 Pulse 76 73 Resp 16 20 20 B/P (MAP) 158/99 (118) 148/92 (110) 153/72 (99) Pulse Ox 95 98 94 O2 Delivery Nasal Cannula Nasal Cannula Room Air Room Air O2 Flow Rate 3 3 Capillary Refill : Less Than 3 SecondsLess Than 3 Seconds General Appearance: no apparent distress Respiratory: lungs clear, normal breath sounds Cardiovascular: regular rate, rhythm, no murmur Neurologic/Psychiatric: alert, normal mood/affect Skin: other (left lower leg with dressing in place with no drainage) Assessment/Plan Assessment/Plan Admission Status: Observation (1) Cellulitis of left lower extremity Status: Acute Assessment & Plan: Started on vancomycin and dapsone from ER. Failed outpatient Bactrim. Surgery consulted for possible debridement. (2) DVT prophylaxis Assessment & Plan: Enoxaparin Clinical Quality Measures DVT/VTE Risk/Contraindication: Risk Factor Score Per Nursin RFS Level Per Nursing on Admit: 3=High SHAHNAZ ESTES MD May 23, 2019 17:42
[2019-05-23] MEDS: DAPSONE 100 MG TABLET PO SCH (18:47)
[2019-05-23] MEDS ORDERED: RX-HYDROCODONE/APAP 5/325 MG #4 TAB PK PO PRN (20:00)
[2019-05-23] MEDS ORDERED: NON-FORMULARY MEDICATION 1 EA EA (Diphenhydramine HCl (Benadryl) 25 MG) PO PRN (20:00)
[2019-05-23] MEDS ORDERED: FAMOTIDINE 20 MG (PEPCID) TABLET PO PRN (20:00)
[2019-05-23] MEDS ORDERED: hydrOXYzine (VISTARIL/ATARAX) 25 MG capsule/tablet PO PRN (20:00)
[2019-05-23] MEDS ORDERED: CYCLOBENZAPRINE 10 MG (FLEXERIL) TAB PO PRN (20:00)
[2019-05-23] MEDS ORDERED: diphenhydrAMINE 25 MG TAB (BENADRYL) PO PRN (20:30)
[2019-05-23] MEDS: cloNIDine 0.1 MG (CATAPRES) TAB PO SCH (20:32)
[2019-05-23] MEDS: busPIRone 15 MG (BUSPAR) TABLET PO SCH (20:32)
[2019-05-23] MEDS: OXYBUTYNIN (DITROPAN) 5 MG TAB PO SCH (20:32)
[2019-05-23] MEDS: ENOXAPARIN 40 MG/0.4 ML (LOVENOX) SYR SQ SCH (20:32)
[2019-05-23] MEDS ORDERED: NON-FORMULARY MEDICATION 1 EA EA (Gabapentin 800 MG) PO SCH (21:00)
[2019-05-23] MEDS ORDERED: traZODone 100 MG (DESYREL) TAB PO SCH (21:00)
[2019-05-23] MEDS: GABAPENTIN 400 MG (NEURONTIN) CAP PO SCH (21:20)
[2019-05-23] MEDS ORDERED: CEFEPIME 2 GM (MAXIPIME) VIAL ONE (22:14)
[2019-05-23] MEDS ORDERED: NS (IVPB) 50 ML ONE (22:15)
--- NOTE | 2019-05-23 22:15 | NUR ---
Pulled wrong medication. Pulled Cefepime instead of Cefazolin. Returned wrong medication and administered the Cefazolin.
[2019-05-23] MEDS ORDERED: ceFAZolin INJECTION 2,000 MG ONE (22:22)
--- NOTE | 2019-05-23 23:29 | OPERATIVE REPORT ---
DATE OF SERVICE: 05/23/2019 PREOPERATIVE DIAGNOSIS: Cellulitis and abscess, left lower extremity. POSTOPERATIVE DIAGNOSIS: Cellulitis and abscess, left lower extremity with necrotic skin and subcutaneous fat. PROCEDURE: Incision and drainage and sharp debridement 4 x 3.5 x 1 cm of skin and subcutaneous necrotic fat, left lower leg. ESTIMATED BLOOD LOSS: Minimal. COMPLICATIONS: None. INDICATIONS: The patient is a 49-year-old female with a left lower extremity cellulitis abscess with necrotic tissue. She understands risks and benefits of procedure and wished to proceed with procedure. Consent was signed in the chart. DESCRIPTION OF PROCEDURE: The patient was taken to the operating suite. She was prepped and draped in sterile fashion. Surgical pause was performed. A 15 blade scalpel was used to sharply remove necrotic skin and subcutaneous fat down to healthy tissue. Overall, dimensions were 4 x 3.5 x 1 cm. Cautery was used to achieve hemostasis. The wound was then irrigated with copious amounts of irrigation and hemostasis was achieved and the wound was then packed with iodoform gauze and sterile bandage was applied. The patient tolerated procedure well without any complications. She was taken to recovery room in stable condition. Job ID: [id number] DocumentID: [id number] Dictated Date: 05/23/2019 13:12:22 Theatrical Trouper Date: 05/23/2019 23:27:58 Dictated By: ONESIMO MOHAN DO
[2019-05-24] VITALS: BP 152/84
[2019-05-24] MEDS: fentaNYL INJECTION 100 MCG/2 ML AMP IV PRN ×3 (01:50→14:26)
[2019-05-24 04:30] VITALS: BP 162/76
[2019-05-24] MEDS: NS IV 1000 ML 1,000 ML IV SCH ×2 (04:41→13:42)
[2019-05-24] MEDS: HYDROcodone/APAP 5 MG/325 MG (LORTAB) TAB PO PRN ×4 (04:45→11:19)
[2019-05-24] MEDS ORDERED: ceFAZolin INJECTION 2,000 MG ONE (05:00)
[2019-05-24] MEDS ORDERED: NS (IVPB) 50 ML ONE (05:01)
[2019-05-24 05:17] LABS: HEMOGLOBIN 10.3 G/DL (11.5-16.0); MEAN PLATELET VOLUME 10.6 FL (7.4-10.4); RED CELL DISTRIBUTION WIDTH 19.6 % (10.0-14.5); WHITE BLOOD COUNT 7.3 10^3/uL (4.3-11.0)
[2019-05-24] MEDS: ceFAZolin 2 GM/50 ML NS 50 ML IV SCH ×2 (05:28→13:42)
[2019-05-24 05:50] LABS: BUN/CREATININE RATIO 10; CALCIUM 8.6 MG/DL (8.5-10.1); CARBON DIOXIDE 23 MMOL/L (21-32); CHLORIDE 108 MMOL/L (98-107); CREATININE SERUM 0.81 MG/DL (0.60-1.30); GFR ESTIMATED > 60; GLUCOSE 107 MG/DL (70-105); POTASSIUM 4.3 MMOL/L (3.6-5.0); SODIUM 140 MMOL/L (135-145)
[2019-05-24] MEDS ORDERED: TROUGH ORDER-PHARMACY XX NR (06:30)
[2019-05-24 08:00] VITALS: BP 118/67
[2019-05-24] MEDS: OXYBUTYNIN (DITROPAN) 5 MG TAB PO SCH (08:17)
[2019-05-24] MEDS: busPIRone 15 MG (BUSPAR) TABLET PO SCH (08:17)
[2019-05-24] MEDS: GABAPENTIN 400 MG (NEURONTIN) CAP PO SCH ×2 (08:18→13:42)
[2019-05-24] MEDS: ENOXAPARIN 40 MG/0.4 ML (LOVENOX) SYR SQ SCH (08:18)
[2019-05-24] MEDS: cloNIDine 0.1 MG (CATAPRES) TAB PO SCH ×2 (08:39→13:42)
[2019-05-24] MEDS ORDERED: NON-FORMULARY MEDICATION 1 EA EA (Paroxetine HCl 40 MG) PO SCH (09:00)
[2019-05-24] MEDS ORDERED: PARoxetine 20 MG (PAXIL) TAB PO SCH (09:00)
--- NOTE | 2019-05-24 11:00 | Progress Note - Surgery ---
MAI JOHNSON,MED STUDENT 05/24/19 1100: Subjective Date Seen by a Provider: May 24, 2019 Time Seen by a Provider: 10:30 Subjective/Events-last exam Patient seen and examined. Patient says that she is feeling better and that her leg is feeling a little better but that is it beer still runner compounder to touch. Patient denies having any other complaints and says that she is ready to go home. She said that if would like to have a PICC line if she needs IV antibiotics that way she can go home and just come back to the hospital once or twice a day to get the antibiotics; patient said she did this in [place]. Review of Systems General: No Chills, No Night Sweats, No Fatigue; Appetite HEENT: No Head Aches, No Visual Changes Pulmonary: No Dyspnea; Cough; No Pleuritic Chest Pain Cardiovascular: No: Chest Pain, Palpitations, Edema Gastrointestinal: No: Nausea, Vomiting, Abdominal Pain, Diarrhea, Constipation Genitourinary: No Dysuria Musculoskeletal: leg pain (around debrided abscess on lateral left lower leg ) Neurological: No: Weakness, Numbness Focused Exam Lactate Level 05/22/19 18:03: Lactic Acid Level 1.13 Objective Exam Vital Signs Date Time Temp Pulse Resp B/P (MAP) Pulse Ox O2 Delivery O2 Flow Rate FiO2 05/24/19 08:00 36.6 94 20 118/67 (84) 94 Room Air 05/24/19 08:00 98 Room Air 05/24/19 04:30 36.5 83 20 162/76 (104) 98 Room Air 05/24/19 00:00 36.4 78 16 152/84 (106) 96 Room Air 05/23/19 20:19 36.5 82 20 141/73 (95) 92 Room Air 05/23/19 20:00 98 Room Air 05/23/19 16:19 36.8 73 20 153/72 (99) 94 Room Air 05/23/19 12:44 36.9 76 20 148/92 (110) 98 Room Air 05/23/19 12:00 Nasal Cannula 3 05/23/19 11:50 36.1 16 158/99 (118) 95 Nasal Cannula 3 05/23/19 11:50 Nasal Cannula 3 05/23/19 11:40 16 158/100 (119) 95 Nasal Cannula 3 05/23/19 11:40 OxyMask 5 05/23/19 11:30 16 115/104 (108) 93 OxyMask 5 05/23/19 11:25 OxyMask 10 05/23/19 11:20 6 169/108 (128) 93 OxyMask 5 05/23/19 11:10 OxyMask 5 05/23/19 11:10 16 143/90 (107) 93 OxyMask 5 05/23/19 11:00 OxyMask 10 05/23/19 11:00 16 136/86 (103) 94 5 I & O 05/24/19 07:00 Intake Total 3155 ml Balance 3155 ml Capillary Refill : Less Than 3 SecondsLess Than 3 Seconds General Appearance: No Apparent Distress, WD/WN, Obese HEENT: PERRL/EOMI, Moist Mucous Membranes; No Pale Conjunctivae (L), No Pale Conjunctivae (R), No Scleral Icterus (L), No Scleral Icterus (R) Neck: Non Tender, Supple Respiratory: Chest Non Tender, Lungs Clear, No Accessory Muscle Use, No Respiratory Distress, Wheezing Cardiovascular: Regular Rate, Rhythm, No Edema, No Murmur, Normal Peripheral Pulses Gastrointestinal: non tender, soft, no organomegaly Extremity: No Calf Tenderness, No Pedal Edema, Calf Tenderness (only on Lateral left lower leg around abscess and posterior thigh. posterior thigh pain worses with straigthing of leg and dorsiflexion of left foot ) Neurologic/Psychiatric: Alert, Oriented x3, No Motor/Sensory Deficits, Normal Mood/Affect (Debrided abscess on left lower leg ) Skin: Normal Color, Warm/Dry, Other Results Lab Laboratory Tests 05/24/19 04:32: White Blood Count 7.3, Red Blood Count 4.61, Hemoglobin 10.3L, Hematocrit 36, Me an Corpuscular Volume 78L, Mean Corpuscular Hemoglobin 22L, Mean Corpuscular Hemoglobin Concent 29L, Red Cell Distribution Width 19.6H, Platelet Count 307, Mean Platelet Volume 10.6H, Sodium Level 140, Potassium Level 4.3, Chloride Level 108H, Carbon Dioxide Level 23, Anion Gap 9, Blood Urea Nitrogen 8, Creatinine 0.81, Estimat Glomerular Filtration Rate > 60, BUN/Creatinine Ratio 10, Glucose Level 107H, Calcium Level 8.6 Microbiology 05/23/19 Gram Stain - Final, Resulted 05/23/19 Anaerobic Culture, Resulted Pending 05/23/19 Surgical Culture - Preliminary, Resulted Escherichia coli Group B Streptococci Strep Species, Alpha Hemolytic 05/22/19 Blood Culture - Preliminary, Resulted No growth Assessment/Plan Assessment/Plan Assessment/Plan cellulitis/abscess left lower extremity hx of mrsa regular diet iv abx Clinical Quality Measures DVT/VTE Risk/Contraindication: Risk Factor Score Per Nursin RFS Level Per Nursing on Admit: 3=High ONESIMO SEN DO 05/24/191919: Subjective Subjective/Events-last exam Left lower extremity feeling better. Pain minimal. Redness has gone away. Denies n/v fever sweats chills shortness of breath or chest pain. Patient states that she wants to go home now and does not want to stay another day. Objective Exam General Appearance: No Apparent Distress HEENT: PERRL/EOMI Neck: Supple Respiratory: Chest Non Tender, No Accessory Muscle Use, No Respiratory Distress Cardiovascular: Regular Rate, Rhythm Gastrointestinal: non tender, soft, no organomegaly Extremity: Calf Tenderness (only on Lateral left lower leg around open wound, erythema improved. wound clean and dry) Neurologic/Psychiatric: Alert, Oriented x3, No Motor/Sensory Deficits, Normal Mood/Affect Skin: Warm/Dry Lymphatic: No Adenopathy Assessment/Plan Assessment/Plan Assessment/Plan cellullitis/abscess left lower extremity s/p incision and drainage debridement left lower extremity of necrotic tissue, possible spider bite patient understands need for daily wound care she is wanting to go home today instructed if any change needs to be seen at that time. otherwise 1 week. will dc on doxycycline, dapsone, vicodin Final Diagnosis cellullitis/abscess left lower extremity s/p incision and drainage debridement left lower extremity of necrotic tissue, possible spider bite Supervisory-Addendum Brief Verification & Attestation Participated in pt care: history, MDM, physical Personally performed: exam, history, MDM, supervision of care Care discussed with: Medical Student Procedures: n/a Results interpretation: Verified all documentation Verification and Attestation of Medical Student E/M Service A medical student performed and documented this service in my presence. I reviewed and verified all information documented by the medical student and made modifications to such information, when appropriate. I personally performed the physical exam and medical decision making. Onesimo Sen, May 24, 2019,19:20 MAI JOHNSON,MED STUDENT May 24, 2019 11:00 ONESIMO SEN DO May 24, 2019 19:20
--- NOTE | 2019-05-24 11:21 | NUR ---
CM/SS visited with patient to assess for needs upon discharge. The patient was just coming back up from the cafeteria to get a pop. The patient stated that she just wants to get home today and get back to her dog. She reports it is making her anxious. The patient does feel like she wants to leave AMA if the physician states that she needs to stay. The patients Nurse was present in the room and discussed patient education about leaving and not getting her IV antibiotics like she needs. The patient verbalized understanding but states that she wants to get a PIC line and just come in if she has too. CM/SS discussed the role of SS for discharge if Home Health is needed. The patient stated she did not have any needs at this time. Will continue to follow.
[2019-05-24 12:00] VITALS: BP 146/85
--- NOTE | 2019-05-24 12:57 | NUR ---
Initial resolution specialist visit: I told her I recognized her from our visit during a previous admission. She engaged warmly and expressed appreciation for being recognized since our last visit was a few years ago. She said she is trying to make it day to day. I offered compassionate presence and safe place for free expression of thoughts and feelings.
[2019-05-24] MEDS: ONDANSETRON 4 MG/2 ML (SDV) Z0FRAN IV PRN (14:25)
[2019-05-24] MEDS ORDERED: DOXY100T31 PO (16:13)
[2019-05-24] MEDS ORDERED: HYDR-3812 PO (16:13)
--- NOTE | 2019-05-24 16:27 | Discharge Inst-Simple/Standard ---
Discharge Inst-Standard Discharge Medications New, Converted or Re-Newed RX: RX on Chart Patient Instructions/Follow Up Plan of Care/Instructions/FU: 1 week [place] 1 week Turner Gomez. Activity as Tolerated: Yes Discharge Diet: Regular Diet Other Inst to Patient Follow up Appt: Make appointment for 1 week [place] 1 week Turner Gomez. Instructions: May shower no tub bath or soaking. Use incentive spirometer at home as directed. No Smoking Skin/Wound Care: Irrigate and pack with iodoform gauze daily and as needed. It will heal in on its own. Any change or concern be seen at that time. Symptoms to Report: Appetite Changes, Extremity Discoloration, Numbness/Tingling, Swelling Increased, Bleeding Excessive, Eyesight Changes, Pain Increased, Urine Color Change, Constipation(Persistent), Fever over 101 degree F, Pain/Pressure in chest, Urinating Difficulty, Cough Up/Vomit Blood, Heart Beat Irreg/Pounding, Pain/Pressure in jaw, Vaginal Bleeding Increase, Cramps in feet or legs, Lightheadedness, Pain/Pressure in shoulder, Diarrhea(Persistent), Memory Changes Suddenly, Questions/Concerns, Weight gain consecutive days, Dizziness/Fainting, Nausea/Vomiting, Shortness of Breath, Weight gain over 2 pounds If questions or concerns contact your physician Or seek help at emergency department. ONESIMO MOHAN DO May 24, 2019 16:26
[2019-05-24] MEDS ORDERED: DAPS100T3 PO (16:29)
[2019-05-24] MEDS ORDERED: FLU QUADRIvalent (5+ YOA) 2019-2020 (AFLURIA) 0.5 ML IM ONE (16:30)
--- NOTE | 2019-05-24 16:51 | Discharge Summary ---
Discharge Summary Hospital Course Problems/Diagnosis: (1) Cellulitis of left lower extremity Status: Acute Assessment & Plan: Started on vancomycin and dapsone from ER. Failed outpatient Bactrim. Surgery consulted an did debridement. Discharged on doxycycline and dapsone. Culture with E coli, Group B strep and other strep possibly viridans. Hospital Course Date of Admission: May 22, 2019 at 18:00 Admission Diagnosis : Family Physician/Provider: [place] [place] Date of Discharge: 05/24/19 Discharge Diagnosis: See problem list Hospital Course: See problem list Labs and Pending Lab Test: Laboratory Tests 05/24/19 04:32: White Blood Count 7.3, Red Blood Count 4.61, Hemoglobin 10.3L, Hematocrit 36, Mean Corpuscular Volume 78L, Mean Corpuscular Hemoglobin 22L, Mean Corpuscular Hemoglobin Concent 29L, Red Cell Distribution Width 19.6H, Platelet Count 307, Mean Platelet Volume 10.6H, Sodium Level 140, Potassium Level 4.3, Chloride Level 108H, Carbon Dioxide Level 23, Anion Gap 9, Blood Urea Nitrogen 8, Creati nine 0.81, Estimat Glomerular Filtration Rate > 60, BUN/Creatinine Ratio 10, Glucose Level 107H, Calcium Level 8.6 Microbiology 05/23/19 Gram Stain - Final, Resulted 05/23/19 Anaerobic Culture, Resulted Pending 05/23/19 Surgical Culture - Preliminary, Resulted Escherichia coli Group B Streptococci Strep Species, Alpha Hemolytic See Comments 05/22/19 Blood Culture - Preliminary, Resulted No growth Home Meds Active Dapsone 100 Mg Tablet 100 Mg PO DAILY Doxycycline Monohydrate 100 Mg Tablet 100 Mg PO BID Hydrocodone-Acetamin 5-325 mg (Hydrocodone/Acetaminophen) 1 Each Tablet 1 Tab PO Q6H PRN Reported Acid Exit Booth Agent (FAMOTIDINE) (Famotidine) 20 Mg Tablet 20 Mg PO DAILY PRN Benadryl (Diphenhydramine HCl) 25 Mg Capsule 25 Mg PO Q8H PRN Paroxetine HCl 40 Mg Tablet 40 Mg PO DAILY LAST FILLED #30 04-11-19 Oxybutynin Chloride 5 Mg Tablet 5 Mg PO BID Trazodone HCl 100 Mg Tablet 200 Mg PO HS LAST FILLED #60 04-11-19 TAKES 2 (100MG) TABLETS Clonidine HCl 0.1 Mg Tablet 0.1 Mg PO TID Gabapentin 800 Mg Tablet 800 Mg PO TID Buspirone HCl 15 Mg Tablet 15 Mg PO BID Cyclobenzaprine HCl 10 Mg Tablet 10 Mg PO TID PRN Hydroxyzine Pamoate 25 Mg Capsule 25 Mg PO TID PRN Assessment/Pt DC Instructions See above/other d/c instructions. Consulations Consultations Dr. Sen Discharge Physical Examination Allergies: Coded Allergies: Penicillins (Unverified Allergy, Mild, 07/01/17) dimenhydrinate (Verified Allergy, Mild, 07/01/17) prochlorperazine (Unverified Allergy, Mild, 07/01/17) Uncoded Allergies: ANTI-EMETICS (Allergy, Mild, 03/26/08) ANTI-NAUSEA MEDICATIONS EXCEPT DRAMAMINE (Allergy, Mild, MAKE HER HAVE ANXIETY ATTACKS, 08/29/08) ANTIEMETICS (Allergy, Mild, 12/09/08) NAUSEA MEDS (Allergy, Mild, 12/01/08) General Appearance: WD/WN Respiratory: Lungs Clear, Normal Breath Sounds Cardiovascular: Regular Rate, Rhythm, No Murmur Extremity: No Pedal Edema, Other (left lateral calf dressing in place with no drainage) Skin: Normal Color, Warm/Dry Neurologic/Psychiatric: Alert Clinical Quality Measures DVT/VTE Risk/Contraindication: Risk Factor Score Per Nursin RFS Level Per Nursing on Admit: 3=High SHAHNAZ ARAIZA MD May 24, 2019 16:51
== END 2019-05-24 22:50 | disposition home or self-care (01) ==
LOC: EDUNIT# 16:55 → ER 16:57 → 4TH 18:00
PROVIDERS: ADMIT Family Medicine; ATTEND Family Medicine
DX: L03.116 Cellulitis of left lower limb (principal); L02.818 Cutaneous abscess of other sites; M79.89 Other specified soft tissue disorders; E66.01 Morbid (severe) obesity due to excess calories; I10 Essential (primary) hypertension; K21.9 Gastro-esophageal reflux disease without esophagitis; G89.29 Other chronic pain; G40.909 Epilepsy, unspecified, not intractable, without status epilepticus; G47.8 Other sleep disorders; M54.9 Dorsalgia, unspecified; J45.909 Unspecified asthma, uncomplicated; F17.210 Nicotine dependence, cigarettes, uncomplicated; F41.9 Anxiety disorder, unspecified; F32.9 Major depressive disorder, single episode, unspecified; Z88.0 Allergy status to penicillin; Z88.8 Allergy status to other drugs, medicaments and biological substances; Z79.899 Other long term (current) drug therapy; Z90.710 Acquired absence of both cervix and uterus; Z86.73 Personal history of transient ischemic attack (TIA), and cerebral infarction without residual deficits; Z68.41 Body mass index [BMI] 40.0-44.9, adult; Z90.89 Acquired absence of other organs; Z83.3 Family history of diabetes mellitus; Z82.49 Family history of ischemic heart disease and other diseases of the circulatory system; Z82.3 Family history of stroke
CPT/HCPCS: 36415; 80048; 80053; 80306; 81000; 83605; 85025; 85027; 86141; 87040; 87070; 87075; 87076; 87077; 87185; 87186; 87205; 96374; G0378

== ENCOUNTER → 2019-05-30 | Outpatient (CLI) | payer OTHER ==
[~2019-05-30] MED LIST changes: +BUSP15TA60 PO; +DAPS100T3 PO; +DIPH25CA79 PO; +DOXY100T31 PO; +FAMO20TA3 PO; +GABA800T10 PO; +HYDR-3812 PO; +OXYB5TAB13 PO; +PREG100C PO
--- NOTE | 2019-05-30 16:08 | Diagnostic Imaging Report ---
PROCEDURE: US left lower extremity venous. TECHNIQUE: Multiple real-time grayscale images were obtained over the left lower extremity in various projections. Additional duplex Doppler and color Doppler images were also obtained. INDICATION: Left calf and popliteal pain. FINDINGS: There is no evidence of left lower extremity DVT. Left lower extremity deep venous system shows normal compressibility with normal response to augmentation and Valsalva. No fluid collection or mass is seen. IMPRESSION: No evidence of left lower extremity DVT. Dictated by: Dictated on workstation # [id number]
== END ==
LOC: RAD 14:45
PROVIDERS: ATTEND Surgery
DX: M79.662 Pain in left lower leg (principal); M25.562 Pain in left knee

== ENCOUNTER 2019-06-18 14:48 | Outpatient (CLI) | payer OTHER ==
[~2019-06-18] VITALS: Ht 172.7 cm; Wt 110.5 kg
[2019-06-19] MEDS ORDERED: CLIN300C11 PO ×2 (11:51)
[2019-06-19] MEDS ORDERED: ACHD5005 PO ×2 (11:51)
== END 2019-06-18 15:00 | disposition home or self-care (01) ==
LOC: PREOP 14:48
PROVIDERS: ATTEND Surgery
DX: Z01.818 Encounter for other preprocedural examination (principal)

== ENCOUNTER 2019-06-19 09:51 | Day surgery (SDC) | payer OTHER ==
[~2019-06-19] VITALS: Ht 172.7 cm; Wt 110.5 kg
[2019-06-19] VITALS (11 sets, daily range): BP systolic 111–167; BP diastolic 65–104
[2019-06-19] MEDS ORDERED: ceFAZolin 2 GM/50 ML NS 50 ML ONE (10:25)
[2019-06-19] MEDS ORDERED: ceFAZolin 2 GM/50 ML NS 50 ML IV ONE (10:30)
[2019-06-19] MEDS ORDERED: LIDOCAINE PF 2% 5 ML (XYLOCAINE) VIAL ONE (10:31)
[2019-06-19] MEDS ORDERED: SEVOFLURANE (ULTANE) 15 ML INHAL SOLN ONE ×2 (10:31→11:32)
[2019-06-19] MEDS ORDERED: MIDAZOLAM 2 MG/2 ML (VERSED) VIAL ONE (10:31)
[2019-06-19] MEDS ORDERED: fentaNYL INJECTION 100 MCG/2 ML AMP ONE ×2 (10:31→11:33)
[2019-06-19] MEDS ORDERED: ONDANSETRON 4 MG/2 ML (SDV) Z0FRAN ONE (10:42)
[2019-06-19] MEDS ORDERED: LACTATED RINGERS 1,000 ML IV PRN (10:46)
[2019-06-19] MEDS ORDERED: CATHETER FLUSH 10 ML SYR IV PRN (11:00)
--- NOTE | 2019-06-19 11:35 | Progress Note-Pre Operative ---
Pre-Operative Progress Note H&P Reviewed The H&P was reviewed, patient examined and no changes noted. Date Seen by Provider: Jun 19, 2019 Time Seen by Provider: 11:15 Date H&P Reviewed: Jun 19, 2019 Time H&P Reviewed: 11:15 Pre-Operative Diagnosis: LLE abscess ONESIMO MOHAN DO Jun 19, 2019 11:35
--- NOTE | 2019-06-19 11:48 | Progress Note-Post Operative ---
Post-Operative Progess Note Surgeon (s)/Hand Carver (s) Surgeon ONESIMO MOHAN DO Hand Carver: na Pre-Operative Diagnosis LLE abscess Post-Operative Diagnosis same Procedure & Operative Findings Date of Procedure 06/19/19 Procedure Performed/Findings i and d debridement c cautery lle abscess 3x2.8x1.5cm Anesthesia Type gen Estimated Blood Loss Estimated blood loss (mL): min Specimens/Packing Specimens Removed culture ONESIMO MOHAN DO Jun 19, 2019 11:48
[2019-06-19] MEDS ORDERED: CLIN300C11 PO ×2 (11:51)
[2019-06-19] MEDS ORDERED: ACHD5005 PO ×2 (11:51)
--- NOTE | 2019-06-19 11:53 | Discharge Inst-Simple/Standard ---
Discharge Inst-Standard Discharge Medications New, Converted or Re-Newed RX: RX on Chart Patient Instructions/Follow Up Plan of Care/Instructions/FU: See Dr. Sen Nurse tomorrow for wound care change. Dr. Sen 1 week. Will need wound irrigated with saline and then packed with iodoform gauze daily. Cover with 4x4 and then tape. Activity as Tolerated: No Discharge Diet: Regular Diet ONESIMO SEN DO Jun 19, 2019 11:53
[2019-06-19] MEDS ORDERED: morphine INJ 10 MG/ML 1ML (SYR OR VIAL) ONE (11:59)
[2019-06-19] MEDS ORDERED: fentaNYL INJECTION 100 MCG/2 ML AMP IVP ONE (12:00)
[2019-06-19] MEDS ORDERED: morphine INJ 10 MG/ML 1ML (SYR OR VIAL) IVP ONE (12:00)
[2019-06-19] MEDS ORDERED: ONDANSETRON 4 MG/2 ML (SDV) Z0FRAN IVP PRN (12:00)
--- NOTE | 2019-06-19 12:50 | NUR ---
TO AMB SURG FROM PAR PER CART. QUITE DROWSY, ON O2 AT 3L PER NC. C/O LEFT CALF SURGICAL SITE PAIN RATED 7 BUT QUICKLY BACK TO SLEEP. KERLIX WRAPPED DRESSING D/I TO LEFT CALF.
--- NOTE | 2019-06-19 14:00 | NUR ---
AWAKE NOW, RATES LEFT CALF SURGICAL SITE PAIN 5. PO FLUIDS PROVIDED. NO CHANGE IN SITE ASSESSMENT. O2 DC'D
[2019-06-19] MEDS ORDERED: HYDROcodone/APAP 5 MG/325 MG (LORTAB) TAB ONE (14:27)
[2019-06-19] MEDS ORDERED: HYDROcodone/APAP 5 MG/325 MG (LORTAB) TAB PO ONE (14:30)
--- NOTE | 2019-06-19 14:45 | NUR ---
LORTAB 5/325 MG, ONE TAB, GIVEN PO FOR C/O LEFT CALF PAIN RATED 5. HAS HAD LORTAB BEFORE WITHOUT PROBLEM. HAS BEEN UP TO BR WITH ASSIST, VOIDED, THEN BACK TO ROOM FOR DISMISSAL. DRESSING REMAINS D/I TO LEFT LEG.
--- NOTE | 2019-06-19 14:58 | Anesthesia-General Post-Op ---
General Patient Condition Mental Status/LOC: Same as Preop Cardiovascular: Satisfactory Nausea/Vomiting: Absent Respiratory: Satisfactory Pain: Controlled Complications: Absent Post Op Complications Complications None Follow Up Care/Instructions Patient Instructions None needed. Anesthesia/Patient Condition Patient Condition Patient was seen after the procedure and she was doing well, no complaints, stable vital signs, no apparent adverse anesthesia problems. ISIDRA LOMBARDO DO Jun 19, 2019 14:58
--- NOTE | 2019-06-19 17:46 | OPERATIVE REPORT ---
DATE OF SERVICE: 06/19/2019 PREOPERATIVE DIAGNOSIS: Left lower extremity abscess. POSTOPERATIVE DIAGNOSIS: Left lower extremity abscess. PROCEDURE: Incision, drainage and debridement of left lower extremity of the abscess 3 x 2.8 x 1.5 cm using cautery. SURGEON: Onesimo Sen DO ANESTHESIA: General. ESTIMATED BLOOD LOSS: Minimal. COMPLICATIONS: None. INDICATIONS: The patient is a 49-year-old female with abscess to left lower extremity. She had previous abscess of spider bite that had been debrided, but had developed another abscess in this area. She understands risks and benefits of procedure and wished to proceed with procedure. Consent was signed in the chart. DESCRIPTION OF PROCEDURE: The patient was taken to the operating suite, was prepped and draped in sterile fashion. Timeout was performed. A 15 blade scalpel was used to make a small skin incision over the area of the abscess. Purulent material erupted, and culture was obtained and cautery was then used to remove the skin and subcutaneous tissue of the scar tissue and purulent necrotic tissue. Overall, dimensions being 3 x 2.8 x 1.5 cm. Once down to good healthy, clean appearing tissue. Hemostasis was achieved. The wound was irrigated with copious amounts of irrigation and suction. The wound was then packed with iodoform gauze and sterile bandage was then applied. The patient tolerated procedure well without any complications. She was taken to recovery room in stable condition. Job ID: [id number] DocumentID: [id number] Dictated Date: 06/19/2019 13:26:28 Lithographic Etcher Date: 06/19/2019 17:44:49 Dictated By: ONESIMO SEN DO
== END 2019-06-19 14:40 | disposition home or self-care (01) ==
LOC: SDC 09:51
PROVIDERS: ATTEND Surgery
DX: L02.818 Cutaneous abscess of other sites (principal); I10 Essential (primary) hypertension; E78.00 Pure hypercholesterolemia, unspecified; J43.9 Emphysema, unspecified; G62.9 Polyneuropathy, unspecified; K21.9 Gastro-esophageal reflux disease without esophagitis; E66.9 Obesity, unspecified; M19.90 Unspecified osteoarthritis, unspecified site; M47.896 Other spondylosis, lumbar region; M51.36 Other intervertebral disc degeneration, lumbar region; M54.32 Sciatica, left side; F41.9 Anxiety disorder, unspecified; F32.9 Major depressive disorder, single episode, unspecified; F17.210 Nicotine dependence, cigarettes, uncomplicated; Z88.8 Allergy status to other drugs, medicaments and biological substances; Z88.0 Allergy status to penicillin; Z88.5 Allergy status to narcotic agent; Z90.89 Acquired absence of other organs; Z90.710 Acquired absence of both cervix and uterus; Z68.37 Body mass index [BMI] 37.0-37.9, adult; Z86.73 Personal history of transient ischemic attack (TIA), and cerebral infarction without residual deficits; Z79.899 Other long term (current) drug therapy; Z80.9 Family history of malignant neoplasm, unspecified; Z83.3 Family history of diabetes mellitus
CPT/HCPCS: 87070; 87075; 87076; 87077; 87081; 87205

== ENCOUNTER 2019-07-22 03:47 | Inpatient (IN) | payer SELFPAY ==
[~2019-07-22] VITALS: Ht 167.7 cm; Wt 120.6 kg
[2019-07-22] VITALS (36 sets, daily range): BP systolic 72–117; BP diastolic 49–83
[~2019-07-22 03:47] MED LIST changes: +ACHYD1T PO; +CLIN300C11 PO; -HYDR-3812 PO; -HYDR-3820 PO; +QUET100T33 PO; -QUET100T69 PO; -TRAZ-190 PO; +TRAZ-227 PO
[2019-07-22] MEDS ORDERED: morphine INJ 10 MG/ML 1ML (SYR OR VIAL) IV STA (03:53)
[2019-07-22] MEDS ORDERED: ONDANSETRON 4 MG/2 ML (SDV) Z0FRAN IVP ONE (04:00)
--- NOTE | 2019-07-22 04:00 | ED Chest Pain ---
General Chief Complaint: Chest Pain Stated Complaint: CP Source: patient Exam Limitations: no limitations History of Present Illness Date Seen by Provider: Jul 22, 2019 Time Seen by Provider: 03:40 Initial Comments Patient arrives the ER by EMS from home with chief complaint she started experiencing some chest pain nausea vomiting around 2:30, an hour and a half prior to arrival. EMS gave her 4 Zofran mention nitroglycerin paste and brought her pain down from a 9 to a 7. She's was sitting there watching of movie at home not exerting herself when it happened. She's not having any shortness of breath. Her pain starts substernal and radiates towards her left chest and through to her back. It is reproducible to direct palpation. EMS gave 325 mg aspirin on route. She does not have a history of coronary disease, diabetes, hyperlipidemia but she does have hypertension. She says her mom had her first heart attack when she was 65. She is a smoker of cigarettes. She denies any recreational drug use. Allergies and Home Medications Allergies Coded Allergies: Penicillins (Unverified Allergy, Mild, Has had Ancef w/o issue, 07/22/19) dimenhydrinate (Verified Allergy, Mild, 07/22/19) prochlorperazine (Unverified Allergy, Mild, 07/22/19) Uncoded Allergies: ANTI-EMETICS (Allergy, Mild, 03/26/08) ANTI-NAUSEA MEDICATIONS EXCEPT DRAMAMINE (Allergy, Mild, MAKE HER HAVE ANXIETY ATTACKS, 08/29/08) ANTIEMETICS (Allergy, Mild, 12/09/08) NAUSEA MEDS (Allergy, Mild, 12/01/08) Home Medications Buspirone HCl 15 Mg Tablet, 15 MG PO BID, (Reported) Clindamycin HCl 300 Mg Capsule, 600 MG PO TID Prescribed by: ONESIMO MOHAN on 06/19/19 1151 Clonidine HCl 0.1 Mg Tablet, 0.1 MG PO TID, (Reported) Cyclobenzaprine HCl 10 Mg Tablet, 10 MG PO TID PRN for MUSCLE SPASMS, (Reported) Diphenhydramine HCl 25 Mg Capsule, 25 MG PO Q8H PRN for ITCHING, (Reported) Famotidine 20 Mg Tablet, 20 MG PO DAILY PRN for HEARTBURN, (Reported) Gabapentin 800 Mg Tablet, 800 MG PO TID, (Reported) Hydrocodone Bit/Acetaminophen 1 Tab Tab, 1 TAB PO Q4-6HR Prescribed by: ONESIMO MOHAN on 06/19/19 1151 Hydroxyzine Pamoate 25 Mg Capsule, 25 MG PO TID PRN for ANXIETY, (Reported) Oxybutynin Chloride 5 Mg Tablet, 5 MG PO BID, (Reported) Paroxetine HCl 40 Mg Tablet, 40 MG PO DAILY, (Reported) LAST FILLED #30 04-11-19 Trazodone HCl 100 Mg Tablet, 200 MG PO HS, (Reported) LAST FILLED #60 04-11-19 TAKES 2 (100MG) TABLETS Patient Home Medication List Home Medication List Reviewed: Yes Review of Systems Review of Systems Constitutional: No chills, No diaphoresis EENTM: No Blurred Vision, No Double Vision Respiratory: Denies Cough, Denies Shortness of Air Cardiovascular: Chest Pain; Denies Edema, Denies Palpitations Gastrointestinal: See HPI; Denies Abdominal Pain, Denies Constipated, Denies Diarrhea; Nausea, Vomiting Genitourinary: Denies Burning, Denies Discharge Musculoskeletal: back pain, gout Skin: No pruritus, No rash Psychiatric/Neurological: Denies Numbness, Denies Paresthesia All Other Systems Reviewed Negative Unless Noted: Yes Past Hezzyuz-Ufhdfe-Xabbnx Hx Patient Social History Alcohol Use: Denies Use Recreational Drug Use: Yes Drug of Choice: cannabis Smoking Status: Current Everyday Smoker Type Used: Cigarettes 2nd Hand Smoke Exposure: No Recent Hopitalizations: No Immunizations Up To Date Tetanus Booster (TDap): Unknown PED Vaccines UTD: Yes Date of Pneumonia Vaccine: May 22, 2015 Date of Influenza Vaccine: Apr 15, 2018 Seasonal Allergies Seasonal Allergies: Yes Past Medical History Surgeries: Yes (I&D) Appendectomy, Section, Hysterectomy, Oophorectomy, Orthopedic, Tonsillectomy Respiratory: Yes (EMPYEMA--S/P LUNG SURGERY FOR REMOVAL) Asthma, Chronic Bronchitis Currently Using CPAP: No Currently Using BIPAP: No Cardiac: Yes Hypertension Neurological: Yes Seizure Disorder Reproductive Disorders: Yes (MULTIPLE OVARIAN CYSTS. 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 Sexually Transmitted Disease: Yes (HPV, GONORRHEA) HIV/AIDS: No Genitourinary: No Gastrointestinal: Yes Gastroesophageal Reflux, Irritable Bowel Musculoskeletal: Yes Degenerate Disk Disease, Chronic Back Pain Endocrine: Yes (MORBID OBESITY) HEENT: No Loss of Vision: Denies Hearing Impairment: Denies Cancer: No Psychosocial: Yes Sleep Difficulties, Anxiety, Depression Integumentary: Yes (spider bite) Blood Disorders: No Family Medical History Blood clots G8 BROTHER G8 SISTER Diabetes mellitus 19 MOTHER Headache disorder G8 SISTER Myocardial infarction 19 MOTHER STROKE 19 MOTHER G8 BROTHER DVT/PE, Stroke, Other Conditions/Hx Physical Exam Vital Signs Vital Signs - First Documented Capillary Refill : Height, Weight, BMI Height: 5'6.00" Weight: 235lbs. 0oz. 106.908418sg; 37.04 BMI Method:Stated General Appearance: WD/WN, Anxious, Mild Distress HEENT: PERRL/EOMI, Pharynx Normal, Moist Mucous Membranes Neck: Full Range of Motion, Normal Inspection Respiratory: Chest Non Tender (substernal pain reproduced by direct palpation), Lungs Clear, Normal Breath Sounds, No Accessory Muscle Use, No Respiratory Distress Cardiovascular: Regular Rate, Rhythm, No Edema, Normal Peripheral Pulses Gastrointestinal: Normal Bowel Sounds, Non Tender, Soft Extremity: Normal Capillary Refill, Normal Inspection, Non Tender, No Pedal Edema Neurologic/Psychiatric: Alert, Oriented x3, No Motor/Sensory Deficits, Normal Mood/Affect Skin: Normal Color, Warm/Dry Procedures/Interventions Suture Size: 4-0 Progress/Results/Core Measures Results/Orders Lab Results Laboratory Tests Test 07/22/19 03:53 Range/Units White Blood Count 2.2 L 4.3-11.0 10^3/uL Red Blood Count 5.33 4.35-5.85 10^6/uL Hemoglobin 11.5 11.5-16.0 G/DL Hematocrit 40 35-52 % Mean Corpuscular Volume 75 L 80-99 FL Mean Corpuscular Hemoglobin 22 L 25-34 PG Mean Corpuscular Hemoglobin Concent 29 L 32-36 G/DL Red Cell Distribution Width 19.2 H 10.0-14.5 % Platelet Count 241 130-400 10^3/uL Mean Platelet Volume 9.7 7.4-10.4 FL Neutrophils (%) (Auto) 77 H 42-75 % Lymphocytes (%) (Auto) 21 12-44 % Monocytes (%) (Auto) 1 0-12 % Eosinophils (%) (Auto) 1 0-10 % Basophils (%) (Auto) 1 0-10 % Neutrophils # (Auto) 1.7 L 1.8-7.8 X 10^3 Lymphocytes # (Auto) 0.5 L 1.0-4.0 X 10^3 Monocytes # (Auto) 0.0 0.0-1.0 X 10^3 Eosinophils # (Auto) 0.0 0.0-0.3 10^3/uL Basophils # (Auto) 0.0 0.0-0.1 10^3/uL Prothrombin Time 16.5 H 12.2-14.7 SEC INR Comment 1.3 0.8-1.4 Activated Partial Thromboplast Time 30 24-35 SEC D-Dimer > 20.00 *H 0.00-0.49 UG/ML Sodium Level 138 135-145 MMOL/L Potassium Level 3.9 3.6-5.0 MMOL/L Chloride Level 102 98-107 MMOL/L Carbon Dioxide Level 21 21-32 MMOL/L Anion Gap 15 H 5-14 MMOL/L Blood Urea Nitrogen 12 7-18 MG/DL Creatinine 1.07 0.60-1.30 MG/DL Estimat Glomerular Filtration Rate 55 BUN/Creatinine Ratio 11 Glucose Level 106 H 70-105 MG/DL Calcium Level 9.4 8.5-10.1 MG/DL Corrected Calcium 9.7 8.5-10.1 MG/DL Magnesium Level 1.4 L 1.6-2.4 MG/DL Total Bilirubin 0.7 0.1-1.0 MG/DL Aspartate Amino Transf (AST/SGOT) 81 H 5-34 U/L Alanine Aminotransferase (ALT/SGPT) 25 0-55 U/L Alkaline Phosphatase 157 H 40-136 U/L Myoglobin 22.4 10.0-92.0 NG/ML Troponin I < 0.028 <0.028 NG/ML B-Type Natriuretic Peptide < 10.0 <100.0 PG/ML Total Protein 7.4 6.4-8.2 GM/DL Albumin 3.6 3.2-4.5 GM/DL Lipase 46 8-78 U/L My Orders Orders - MARCELLA FARRELL Cbc With Automated Diff (07/22/19 03:53) Magnesium (07/22/19 03:53) Chest 1 View, Ap/Pa Only (07/22/19 03:53) Ekg Tracing (07/22/19 03:53) Comprehensive Metabolic Panel (07/22/19 03:53) Myoglobin Serum (07/22/19 03:53) Protime With Inr (07/22/19 03:53) Partial Thromboplastin Time (07/22/19 03:53) O2 (07/22/19 03:53) Monitor-Rhythm Ecg Trace Only (07/22/19 03:53) Lipid Panel (07/23/19 06:00) Ed Iv/Invasive Line Start (07/22/19 03:53) Lipase (07/22/19 03:53) BNP (07/22/19 03:53) Morphine Injection (Morphine Injection (07/22/19 03:53) Ondansetron Injection (Zofran Injectio (07/22/19 04:00) Ua Culture If Indicated (07/22/19 04:04) Drug Screen Stat (Urine) (07/22/19 04:04) Fibrin Degradation Products (07/22/19 03:53) Troponin I (07/22/19 03:53) Ed Iv/Invasive Line Start (07/22/19 04:38) Ns Iv 1000 Ml (Sodium Chloride 0.9%) (07/22/19 04:38) Ct Angio Chest W (07/22/19 04:38) Metoprolol Succinate (Xl) Tab (Toprol Xl (07/22/19 04:45) Iohexol Injection (Omnipaque 350 Mg/Ml 1 (07/22/19 05:30) Received Contrast (Hold Metformin- Contr (07/22/19 05:30) Ns (Ivpb) (Sodium Chloride 0.9% Ivpb Bag (07/22/19 05:30) Medications Given in ED Current Medications Medications Dose Ordered Sig/Jesus Route Start Time Stop Time Status Last Admin Dose Admin Iohexol 100 ml ONCE ONCE IV 07/22/19 05:30 07/22/19 05:31 DC 07/22/19 05:19 100 ML Ondansetron HCl 8 mg ONCE ONCE IVP 07/22/19 04:00 07/22/19 04:01 DC 07/22/19 04:03 8 MG Sodium Chloride 80 ml ONCE ONCE IV 07/22/19 05:30 07/22/19 05:31 DC 07/22/19 05:19 80 ML Vital Signs/I&O 07/22/19 07/22/19 03:48 03:48 Temp 36.6 Pulse 118 Resp 22 B/P (MAP) 131/106 (114) O2 Delivery Room Air Room Air Progress Progress Note : Time: 03:59 Progress Note Reproducible chest pain that was improved significantly from a 9 to a 7 by nitroglycerin. We'll give her 4 mg of morphine and 8 mg of Zofran to help control her symptoms. We'll also check lab work chest x-ray, lipase, urinalysis etc. We'll get a d-dimer. Initial ECG Impression Date: Jul 22, 2019 Initial ECG Impression Time: 04:00 Initial ECG Rate: 122 Initial ECG Rhythm: S.Tach Initial ECG Intervals: Normal Initial ECG Impression: Normal, Nonspecific Changes Initial ECG Comparisson: Unchanged Comment Sinus tachycardia without ST elevation or depression. Diagnostic Imaging Diagonstic Imaging: Xray Plain Films/CT/US/NM/MRI: chest (1 view) Comments No acute cardiopulmonary processes noted one view chest x-ray. Reviewed: Reviewed by Me Diagonstic Imaging: CT (angiogram) Plain Films/CT/US/NM/MRI: chest Comments Negative for pulmonary embolisms or acute cardiopulmonary processes. Reviewed: Reviewed [place] Study, Reviewed by Me Departure Communication (Admissions) Time/Spoke to Admitting Phy: 06:05 Discussed case lab imaging findings with Dr. Howard and she agrees to observe the patient. She would like to consult general surgery, Dr. Garcia for the nausea and vomiting. Time/Spoke to Consulting Phy: 04:40 Discussed observation stay, aspirin and Toprol 50 mg now and daily. Dr. Amaral agrees to consult on the patient. CT angiogram is not back yet. Impression Primary Impression: Chest pain Qualified Codes: R07.9 - Chest pain, unspecified Disposition: ADMITTED INPATIENT Condition: Stable Admissions Decision to Admit Reason: Admit from ER (General) Decision to Admit/Date: Jul 22, 2019 Time/Decision to Admit Time: 05:00 Departure-Patient Inst. Referrals: [facility] (PCP/Family) Primary Care Physician MARCELLA FARRELL Jul 22, 2019 04:00
[2019-07-22 04:02] LABS: BASOPHILS % (AUTO) 1 % (0-10); EOSINOPHILS % (AUTO) 1 % (0-10); HEMATOCRIT 40 % (35-52); HEMOGLOBIN 11.5 G/DL (11.5-16.0); LYMPHOCYTES # (AUTO) 0.5 X 10^3 (1.0-4.0); LYMPHOCYTES % (AUTO) 21 % (12-44); MEAN CORPUSCULAR HEMOGLOBIN 22 PG (25-34); MEAN CORPUSCULAR HGB CONC 29 G/DL (32-36); MEAN CORPUSCULAR VOLUME 75 FL (80-99); MEAN PLATELET VOLUME 9.7 FL (7.4-10.4); MONOCYTES % (AUTO) 1 % (0-12); NEUTROPHILS # (AUTO) 1.7 X 10^3 (1.8-7.8); NEUTROPHILS % (AUTO) 77 % (42-75); PLATELET COUNT 241 10^3/uL (130-400); RED CELL DISTRIBUTION WIDTH 19.2 % (10.0-14.5); WHITE BLOOD COUNT 2.2 10^3/uL (4.3-11.0)
[2019-07-22 04:24] LABS: ALANINE AMINOTRANSFERASE 25 U/L (0-55); ALBUMIN 3.6 GM/DL (3.2-4.5); ALKALINE PHOSPHATASE 157 U/L (40-136); BILIRUBIN,TOTAL 0.7 MG/DL (0.1-1.0); BUN/CREATININE RATIO 11; CALCIUM 9.4 MG/DL (8.5-10.1); CARBON DIOXIDE 21 MMOL/L (21-32); CHLORIDE 102 MMOL/L (98-107); CREATININE SERUM 1.07 MG/DL (0.60-1.30); GFR ESTIMATED 55; GLUCOSE 106 MG/DL (70-105); LIPASE 46 U/L (8-78); MAGNESIUM 1.4 MG/DL (1.6-2.4); POTASSIUM 3.9 MMOL/L (3.6-5.0); SODIUM 138 MMOL/L (135-145); TOTAL PROTEIN 7.4 GM/DL (6.4-8.2)
[2019-07-22 04:35] LABS: INR 1.3 (0.8-1.4); PARTIAL THROMBOPLASTIN TIME 30 SEC (24-35); PROTHROMBIN TIME PATIENT 16.5 SEC (12.2-14.7)
[2019-07-22 04:36] LABS: FIBRIN DEGRADATION PRODUCTS > 20.00 UG/ML (0.00-0.49)
[2019-07-22] MEDS ORDERED: NS IV 1000 ML 1,000 ML IV SCH ×2 (04:38→10:00)
[2019-07-22] MEDS ORDERED: meTOproloL SUCCINATE 50 MG (TOPROL XL) TAB PO SCH (04:45)
[2019-07-22] MEDS ORDERED: IOHEXOL 350 MG/ML 100 ML (OMNIPAQUE 350) VIAL IV ONE (05:30)
[2019-07-22] MEDS ORDERED: HOLD METFORMIN - RECEIVED CONTRAST 20 ML VIAL IV SCH (05:30)
[2019-07-22] MEDS ORDERED: NS 100 ML (IVPB) BAG IV ONE (05:30)
[2019-07-22] MEDS ORDERED: morphine INJ 10 MG/ML 1ML (SYR OR VIAL) IVP STA (06:15)
[2019-07-22] MEDS ORDERED: ONDANSETRON 4 MG/2 ML (SDV) Z0FRAN IV PRN (07:15)
[2019-07-22] MEDS ORDERED: NS W/KCL 20 MEQ/L 1,000 ML IV SCH (07:15)
[2019-07-22] MEDS ORDERED: hydrOXYzine (VISTARIL/ATARAX) 25 MG capsule/tablet PO PRN (07:15)
[2019-07-22] MEDS ORDERED: PROMETHAZINE INJ 25 MG/ML (PHENERGAN) AMP IV PRN (07:15)
[2019-07-22] MEDS ORDERED: NITROGLYCERIN 0.4 MG SL TABS BTL 25'S SL PRN (07:30)
[2019-07-22] MEDS: NITROGLYCERIN 2% OINT 1 GM UNIT DOSE PACKET TOP SCH ×3 (07:32→22:00)
[2019-07-22] MEDS: morphine INJ 4 MG/ML 1 ML (VIAL/SYRINGE) IV PRN (07:32)
--- NOTE | 2019-07-22 07:57 | Pulmonary Consultation ---
History of Present Illness History of Present Illness Date Seen by Provider: Jul 22, 2019 Time Seen by Provider: 07:52 Date of Admission Allergies and Home Medications Allergies Coded Allergies: Penicillins (Unverified Allergy, Mild, Has had Ancef w/o issue, 07/22/19) dimenhydrinate (Verified Allergy, Mild, 07/22/19) prochlorperazine (Unverified Allergy, Mild, 07/22/19) Uncoded Allergies: ANTI-EMETICS (Allergy, Mild, 03/26/08) ANTI-NAUSEA MEDICATIONS EXCEPT DRAMAMINE (Allergy, Mild, MAKE HER HAVE ANXIETY ATTACKS, 08/29/08) ANTIEMETICS (Allergy, Mild, 12/09/08) NAUSEA MEDS (Allergy, Mild, 12/01/08) Home Medications Buspirone HCl 15 Mg Tablet, 15 MG PO BID, (Reported) Clindamycin HCl 300 Mg Capsule, 600 MG PO TID Prescribed by: ONESIMO MOHAN on 06/19/19 1151 Clonidine HCl 0.1 Mg Tablet, 0.1 MG PO TID, (Reported) Cyclobenzaprine HCl 10 Mg Tablet, 10 MG PO TID PRN for MUSCLE SPASMS, (Reported) Diphenhydramine HCl 25 Mg Capsule, 25 MG PO Q8H PRN for ITCHING, (Reported) Famotidine 20 Mg Tablet, 20 MG PO DAILY PRN for HEARTBURN, (Reported) Gabapentin 800 Mg Tablet, 800 MG PO TID, (Reported) Hydrocodone Bit/Acetaminophen 1 Tab Tab, 1 TAB PO Q4-6HR Prescribed by: ONESIMO MOHAN on 06/19/19 1151 Hydroxyzine Pamoate 25 Mg Capsule, 25 MG PO TID PRN for ANXIETY, (Reported) Oxybutynin Chloride 5 Mg Tablet, 5 MG PO BID, (Reported) Paroxetine HCl 40 Mg Tablet, 40 MG PO DAILY, (Reported) LAST FILLED #30 04-11-19 Trazodone HCl 100 Mg Tablet, 200 MG PO HS, (Reported) LAST FILLED #60 04-11-19 TAKES 2 (100MG) TABLETS Past Dkrpywc-Htuqfw-Kselbn Hx Patient Social History Alcohol Use: Denies Use Recreational Drug Use: Yes Drug of Choice: cannabis Smoking Status: Current Everyday Smoker Type Used: Cigarettes 2nd Hand Smoke Exposure: No Recent Foreign Travel: No Contact w/Someone Who Travel: No Recent Infectious Disease Expo: No Recent Hopitalizations: No Immunizations Up To Date Tetanus Booster (TDap): Less than 5yrs PED Vaccines UTD: Yes Date of Pneumonia Vaccine: May 22, 2015 Date of Influenza Vaccine: Apr 15, 2018 Seasonal Allergies Seasonal Allergies: Yes Past Medical History Surgeries: Yes (I&D) Appendectomy, Section, Hysterectomy, Oophorectomy, Orthopedic, Tonsillectomy Respiratory: Yes (EMPYEMA--S/P LUNG SURGERY FOR REMOVAL) Asthma, Chronic Bronchitis Currently Using CPAP: No Currently Using BIPAP: No Cardiac: Yes Hypertension Neurological: Yes Seizure Disorder : No Reproductive Disorders: Yes (MULTIPLE OVARIAN CYSTS. 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 Sexually Transmitted Disease: Yes (HPV, GONORRHEA) HIV/AIDS: No Genitourinary: No Gastrointestinal: Yes Gastroesophageal Reflux, Irritable Bowel Musculoskeletal: Yes Degenerate Disk Disease, Chronic Back Pain Endocrine: Yes (MORBID OBESITY) HEENT: No Loss of Vision: Denies Hearing Impairment: Denies Cancer: No Psychosocial: Yes Sleep Difficulties, Anxiety, Depression Integumentary: Yes (spider bite) Blood Disorders: No Family Medical History Blood clots G8 BROTHER G8 SISTER Diabetes mellitus 19 MOTHER Headache disorder G8 SISTER Myocardial infarction 19 MOTHER STROKE 19 MOTHER G8 BROTHER DVT/PE, Stroke, Other Conditions/Hx Sepsis Event Evaluation Height, Weight, BMI Height: 5'6.00" Weight: 235lbs. 0oz. 106.577889wa; 40.28 BMI Method:Stated Exam Exam Vital Signs Date Time Temp Pulse Resp B/P (MAP) Pulse Ox O2 Delivery O2 Flow Rate FiO2 07/22/19 06:52 92 Room Air 07/22/19 06:46 36.4 101 18 91/61 92 Room Air 07/22/19 06:39 36.4 101 18 91/61 (71) 92 Room Air 07/22/19 06:35 36.8 112 22 93/56 (114) 92 Room Air 07/22/19 03:48 Room Air 07/22/19 03:48 36.6 118 22 131/106 (114) Room Air I & O 07/22/19 07:00 Intake Total 1000 ml Balance 1000 ml Height & Weight Height: 5'6.00" Weight: 235lbs. 0oz. 106.660354kp; 40.28 BMI Method:Stated General Appearance: WD/WN, Anxious, Mild Distress HEENT: PERRL/EOMI, Pharynx Normal, Moist Mucous Membranes Neck: Full Range of Motion, Normal Inspection Respiratory: Chest Non Tender (substernal pain reproduced by direct palpation), Lungs Clear, Normal Breath Sounds, No Accessory Muscle Use, No Respiratory Distress Cardiovascular: Regular Rate, Rhythm, No Edema, Normal Peripheral Pulses Capillary Refill: Less Than 3 Seconds Extremity: Normal Capillary Refill, Normal Inspection, Non Tender, No Pedal Edema Neurologic/Psychiatric: Alert, Oriented x3, No Motor/Sensory Deficits, Normal Mood/Affect Skin: Normal Color, Warm/Dry Results Lab Laboratory Tests 07/22/19 03:53 Assessment/Plan Assessment/Plan Acute CP with elevated DDimer -CTA is negative for PE or acute infiltrate -Check bilateral dopplers -Start Lovenox theraputic dosing until DVT is r/o Nausea and vomiting -Lipase is normal -Check UDS -Anderson culture -Start vanco and cefepime -check LA and PCT leukopenia r/o sepsis Dehydration -IVF change to LR at 150 and give a liter bolus Tobacco use -Education KAYKAY RIVERA DO Jul 22, 2019 07:57
[2019-07-22] MEDS ORDERED: PHARMACY TO DOSE IV SCH (08:30)
[2019-07-22] MEDS ORDERED: LACTATED RINGERS 1,000 ML IV SCH (08:30)
[2019-07-22] MEDS ORDERED: VANCOMYCIN 2000 MG/NS 500 ML IVPB IV NR ×2 (08:33)
--- NOTE | 2019-07-22 08:35 | NUR ---
Vancomycin - Loading dose of 2gm over 2 hours, then 1gm every 8 hours. Trough on 07/22.
[2019-07-22 08:46] LABS: BILIRUBIN,URINE NEGATIVE (NEGATIVE); CLARITY,URINE SL CLOUDY; COLOR,URINE YELLOW; GLUCOSE, URINE (UA) NEGATIVE (NEGATIVE); KETONES,URINE NEGATIVE (NEGATIVE); LEUKOCYTE ESTERASE ,URINE NEGATIVE (NEGATIVE); NITRITE,URINE NEGATIVE (NEGATIVE); PH,URINE 5.5 (5-9); PROTEIN,URINE NEGATIVE (NEGATIVE)
[2019-07-22 09:03] LABS: AMPHETAMINE SCREEN, URINE NEGATIVE (NEGATIVE); BENZODIAZEPINES SCREEN URINE NEGATIVE (NEGATIVE); CANNABINOID SCREEN, URINE NEGATIVE (NEGATIVE); COCAINE SCREEN URINE NEGATIVE (NEGATIVE); METHAMPHETAMINE SCREEN URINE S NEGATIVE (NEGATIVE)
[2019-07-22 09:04] LABS: BACTERIA,URINE MODERATE /HPF; BARBITURATE SCREEN URINE NEGATIVE (NEGATIVE); METHADONE STAT NEGATIVE (NEGATIVE); OPIATE SCREEN URINE POSITIVE (NEGATIVE); OXYCODONE STAT NEGATIVE (NEGATIVE); PROPOXYPHENE STAT NEGATIVE (NEGATIVE); SQUAMOUS EPITHELIAL CELL,UR 0-2 /HPF; TRICYCLIC ANTIDEPRESSANTS SCRE POSITIVE (NEGATIVE)
--- NOTE | 2019-07-22 09:38 | Diagnostic Imaging Report ---
PROCEDURE: CT angiography of the chest with contrast. TECHNIQUE: Multiple contiguous axial images were obtained through the chest after uneventful bolus administration of intravenous contrast. 3D reconstructed CTA MIP acquisitions were also performed. Auto Exposure Controls were utilized during the CT exam to meet ALARA standards for radiation dose reduction. DATE: July 22, 2019. COMPARISON: Chest radiograph July 22, 2019. CT chest January 15, 2009. INDICATION: 49-year-old female, chest pain. FINDINGS: There is respiratory motion artifact. There are predominantly linear opacities in the right lower lobe likely relating to atelectasis. There is minimal dependent atelectasis in the left lower lobe. There is a focal area of linear opacification in the lingula likely relating to atelectasis. There is no identified pulmonary nodule. There is no lung mass. There is no pneumothorax. There is no pleural effusion. The central airways are patent. There is no identified pulmonary embolus. The main pulmonary artery diameter measures 3.2 cm in diameter which is above upper limits of normal and may be seen with pulmonary artery hypertension. The heart is not enlarged. There is no pericardial effusion. There is a right hilar lymph node on axial image 72 measuring 13 mm in short axis. This is new since 2008. There is a subcentimeter short axis new AP window lymph node. There is no identified abnormally enlarged axillary lymph node specifically meeting CT size criteria for adenopathy. There is fluid in the mid to distal esophagus. There is no gross esophageal distention or apparent esophageal wall thickening. There are atherosclerotic calcifications noted. There is no identified acute bony abnormality. IMPRESSION: CT CHEST. 1. No identified pulmonary embolus or other acute cardiopulmonary abnormality. 2. Atelectasis in the right lower lobe with minimal atelectasis in the left lower lobe and lingula. 3. Abnormally enlarged right hilar lymph node of uncertain exact etiology. 4. Abnormally dilated main pulmonary artery diameter suggesting pulmonary artery hypertension. Fluid in the esophagus without clear esophageal wall thickening or abnormal dilation of the esophagus. Esophagitis and/or gastroesophageal reflux are both considered. Dictated by: Dictated on workstation # [id number]
--- NOTE | 2019-07-22 09:38 | Diagnostic Imaging Report ---
EXAMINATION: Chest radiograph, portable AP view. DATE: 07/22/2019 4:31 AM hours. INDICATION: 49-year-old female, chest pain. COMPARISON: February 27, 2018. FINDINGS: Stable overall appearance of the cardiomediastinal silhouette. There is no identified pneumothorax. There is no large pleural effusion. There is no identified interval focal airspace consolidation. IMPRESSION: No identified acute cardiopulmonary abnormality. Dictated by: Dictated on workstation # [id number]
--- NOTE | 2019-07-22 09:42 | History & Physical-Hospitalist ---
History of Present Illness HPI/Chief Complaint CC: Hypotension with AMS HPI: This is a 49yoWF who presented to the ER with chest pain. CT angiogram was obtained and standard w/u and Dr Garcia was consulted for N/V. Patient arrived to cardiac stepdown but within 2 hours she became more unresponsive and hypotensive so I moved her to the ICU after I assessed her at 0930 started IVF NS [address] Groves's orders were placed to cover for possible sepsis. Dr Garcia has been requested to place central line since it appears that she has septic shock currently. Cefepime and Vanc given for abx coverage and aggressive IVF initiated. Patient cannot provide any hx details to me. CT reveals possible ATX in RLL so this is likely due to PNA causing septic shock. Source: patient Date Seen 07/22/19 Time Seen by a Provider: 09:45 Attending Physician Bridgette Howard DO [facility] Referring Physician Date of Admission Jul 22, 2019 at 05:00 Home Medications & Allergies Home Medications Reviewed patient Home Medication Reconciliation performed by pharmacy medication reconciliations manufacturing maintenance technician and/or nursing. Patients Allergies have been reviewed. Allergies Allergies Coded Allergies Penicillins (Unverified Allergy, Mild, Has had Ancef w/o issue, 07/22/19) dimenhydrinate (Verified Allergy, Mild, 07/22/19) prochlorperazine (Unverified Allergy, Mild, 07/22/19) Uncoded Allergies ANTI-EMETICS ( Allergy, Mild, 03/26/08) ANTI-NAUSEA MEDICATIONS EXCEPT DRAMAMINE ( Allergy, Mild, MAKE HER HAVE ANXIETY ATTACKS, 08/29/08) ANTIEMETICS ( Allergy, Mild, 12/09/08) NAUSEA MEDS ( Allergy, Mild, 12/01/08) Past Xkhoxtz-Uptcqh-Zzfyiy Hx Past Med/Social Hx: Reviewed Nursing Past Med/Soc Hx, Reviewed and Corrections made Patient Social History Marrital Status: single Employed/Student: unemployed Alcohol Use: Denies Use Recreational Drug Use: Yes Drug of Choice: cannabis Smoking Status: Current Everyday Smoker Type Used: Cigarettes 2nd Hand Smoke Exposure: No Recent Foreign Travel: No Contact w/other who traveled: No Recent Hopitalizations: No Recent Infectious Disease Expo: No Immunizations Up To Date Tetanus Booster (TDap): Less than 5yrs Pediatric: Yes Date of Pneumonia Vaccine: May 22, 2015 Date of Influenza Vaccine: Apr 15, 2018 Seasonal Allergies Seasonal Allergies: Yes Past Medical History Surgeries: Appendectomy, Section, Hysterectomy, Oophorectomy, Orthopedic, Tonsillectomy Respiratory: Pneumonia Currently Using CPAP: No Currently Using BIPAP: No Cardiac: Hypertension Neurological: Seizure Disorder : No Reproductive: Yes (MULTIPLE OVARIAN CYSTS. 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 Hysterectomy Gastrointestinal: Gastroesophageal Reflux, Irritable Bowel Musculoskeletal: Degenerate Disk Disease, Chronic Back Pain Loss of Vision: Denies Hearing Impairment: Denies Psychosocial: Sleep Difficulties, Anxiety, Depression History of Blood Disorders: No Family History Blood clots G8 BROTHER G8 SISTER Diabetes mellitus 19 MOTHER Headache disorder G8 SISTER Myocardial infarction 19 MOTHER STROKE 19 MOTHER G8 BROTHER DVT/PE, Stroke, Other Conditions/Hx Review of Systems ROS-Unable to Obtain: shock Constitutional: see HPI Physical Exam Physical Exam Vital Signs Vital Signs - First Documented 07/22/19 07/22/19 06:35 10:15 Pulse Ox 92 O2 Flow Rate 3.00 Capillary Refill : Less Than 3 Seconds Height, Weight, BMI Height: 5'6.00" Weight: 235lbs. 0oz. 106.075102lk; 40.28 BMI Method:Stated General Appearance: Anxious, Chronically ill, Obese, Severe Distress Eyes: Right Eye Normal Inspection, Right Eye PERRL HEENT: PERRL/EOMI, Normal ENT Inspection, Pharynx Normal, Moist Mucous Membranes Neck: Full Range of Motion, Normal Inspection, Non Tender Respiratory: Chest Non Tender, No Accessory Muscle Use, No Respiratory Distress , Decreased Breath Sounds Cardiovascular: No Edema, No Gallop, No JVD, No Murmur, Normal Peripheral Pulses, Tachycardia Gastrointestinal: Normal Bowel Sounds, No Organomegaly, No Pulsatile Mass, Non Tender, Soft Back: Normal Inspection, No CVA Tenderness, No Vertebral Tenderness Extremity: Normal Capillary Refill, Normal Inspection, Normal Range of Motion, Non Tender, No Calf Tenderness, No Pedal Edema Neurologic/Psychiatric: Alert, No Motor/Sensory Deficits, Normal Mood/Affect, Disoriented Skin: Normal Color, Warm/Dry Lymphatic: No Adenopathy Results Results/Procedures Labs Laboratory Tests 07/22/19 03:53 Patient resulted labs reviewed. Assessment/Plan Admission Diagnosis Assessment: Septic shock presumed from RLL PNA on CT scan Elevated lactic acid and procalcitonin due to sepsis bacterial in origin covered empirically Obesity Mental illness OAB Neutropenia Plan: ICU transfer IVF aggressive treatment Central line Pressor therapy if needed Abx Admission Status: Inpatient Order (span 2 midnights) Reason for Inpatient Admission: Septic shock Diagnosis/Problems Diagnosis/Problems (1) Septic shock (2) Hypotension (3) Pneumonia of right lower lobe due to infectious organism (4) Leg wound, left (5) Lactic acid acidosis (6) Elevated procalcitonin (7) GERD (gastroesophageal reflux disease) (8) Neuropathy (9) Hypertension (10) Anxiety Status: Chronic (11) Nausea, vomiting, and diarrhea Status: Acute (12) Hx MRSA infection Status: Acute (13) Neutropenic sepsis Clinical Quality Measures AMI/AHF: ASA po Prior to arrival: Yes (324 MG PER EMS) DVT/VTE Risk/Contraindication: Risk Factor Score Per Nursin RFS Level Per Nursing on Admit: 4+=Very High BRIDGETTE HOWARD DO Jul 22, 2019 09:42
[2019-07-22] MEDS: LACTATED RINGERS 1,000 ML IV SCH ×2 (10:09→16:17)
[2019-07-22] MEDS: CEFEPIME INJECTION 1,000 MG in WATER (STERILE) FOR INJECTION 10 ML IV SCH ×3 (10:10→20:49)
[2019-07-22] MEDS: ENOXAPARIN 300 MG/3 ML (LOVENOX) MULTI-DOSE VIAL SQ SCH ×2 (10:10→20:21)
[2019-07-22] MEDS: meTOproloL SUCCINATE 50 MG (TOPROL XL) TAB PO SCH (10:11)
[2019-07-22] MEDS: GABAPENTIN 400 MG (NEURONTIN) CAP PO SCH ×3 (10:11→21:29)
[2019-07-22] MEDS ORDERED: LACTATED RINGERS IV ONE (10:30)
[2019-07-22] MEDS: ASPIRIN E.C. 81 MG (ECOTRIN) TAB PO SCH (10:49)
--- NOTE | 2019-07-22 12:49 | Consultation - Surgery ---
History of Present Illness History of Present Illness Patient Consulted On(alexi/time) 07/22/19 12:44 Time Seen by Provider: 12:03 History of Present Illness Surgery asked to consult regarding N/V, elevated Lactic Acid and hypotension. HPI per ED: Patient arrives the ER by EMS from home with chief complaint she started experiencing some chest pain nausea vomiting around 2:30, an hour and a half prior to arrival. EMS gave her 4 Zofran mention nitroglycerin paste and brought her pain down from a 9 to a 7. She's was sitting there watching of movie at home not exerting herself when it happened. She's not having any shortness of breath. Her pain starts substernal and radiates towards her left chest and through to her back. It is reproducible to direct palpation. EMS gave 325 mg aspirin on route. She does not have a history of coronary disease, diabetes, hyperlipidemia but she does have hypertension. She says her mom had her first heart attack when she was 65. She is a smoker of cigarettes. She denies any recreational drug use. When I saw pt this afternoon she was somnolent and mainly complained chest pain and of leg infection; supposedly from "spider bite". Pt stated she has been trying to get someone to help her take care of it. Cardiac work-up has been negative so far. CTA Chest failed to demonstrate PE, does have high D-Dimer and denies trauma. Allergies and Home Medications Allergies Coded Allergies: Penicillins (Unverified Allergy, Mild, Has had Ancef w/o issue, 07/22/19) dimenhydrinate (Verified Allergy, Mild, 07/22/19) prochlorperazine (Unverified Allergy, Mild, 07/22/19) Uncoded Allergies: ANTI-EMETICS (Allergy, Mild, 03/26/08) ANTI-NAUSEA MEDICATIONS EXCEPT DRAMAMINE (Allergy, Mild, MAKE HER HAVE ANXIETY ATTACKS, 08/29/08) ANTIEMETICS (Allergy, Mild, 12/09/08) NAUSEA MEDS (Allergy, Mild, 12/01/08) Home Medications Buspirone HCl 15 Mg Tablet, 15 MG PO BID, (Reported) Clindamycin HCl 300 Mg Capsule, 600 MG PO TID Prescribed by: ONESIMO MOHAN on 06/19/19 1151 Clonidine HCl 0.1 Mg Tablet, 0.1 MG PO TID, (Reported) Cyclobenzaprine HCl 10 Mg Tablet, 10 MG PO TID PRN for MUSCLE SPASMS, (Reported) Diphenhydramine HCl 25 Mg Capsule, 25 MG PO Q8H PRN for ITCHING, (Reported) Famotidine 20 Mg Tablet, 20 MG PO DAILY PRN for HEARTBURN, (Reported) Gabapentin 800 Mg Tablet, 800 MG PO TID, (Reported) Hydrocodone Bit/Acetaminophen 1 Tab Tab, 1 TAB PO Q4-6HR Prescribed by: ONESIMO MOHAN on 06/19/19 1151 Hydroxyzine Pamoate 25 Mg Capsule, 25 MG PO TID PRN for ANXIETY, (Reported) Oxybutynin Chloride 5 Mg Tablet, 5 MG PO BID, (Reported) Paroxetine HCl 40 Mg Tablet, 40 MG PO DAILY, (Reported) LAST FILLED #30 04-11-19 Trazodone HCl 100 Mg Tablet, 200 MG PO HS, (Reported) LAST FILLED #60 04-11-19 TAKES 2 (100MG) TABLETS Patient Home Medication List Home Medication List Reviewed: Yes Past Fsrclxo-Grsszx-Vcimoz Hx Patient Social History Alcohol Use: Denies Use Recreational Drug Use: Yes Drug of Choice: cannabis Smoking Status: Current Everyday Smoker Type Used: Cigarettes 2nd Hand Smoke Exposure: No Recent Foreign Travel: No Contact w/Someone Who Travel: No Recent Infectious Disease Expo: No Recent Hopitalizations: No Immunizations Up To Date Tetanus Booster (TDap): Less than 5yrs PED Vaccines UTD: Yes Date of Pneumonia Vaccine: May 22, 2015 Date of Influenza Vaccine: Apr 15, 2018 Seasonal Allergies Seasonal Allergies: Yes Surgeries History of Surgeries: Yes (I&D) Surgeries: Appendectomy, Section, Hysterectomy, Oophorectomy, Orthopedic, Tonsillectomy Respiratory History of Respiratory Disorde: Yes (EMPYEMA--S/P LUNG SURGERY FOR REMOVAL) Respiratory Disorders: Asthma, Chronic Bronchitis Cardiovascular History of Cardiac Disorders: Yes Cardiac Disorders: Hypertension Neurological History of Neurological Disord: Yes Neurological Disorders: Seizure Disorder Reproductive System : No Hx Reproductive Disorders: Yes (MULTIPLE OVARIAN CYSTS. 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 History: Hysterectomy Genitourinary History of Genitourinary Disor: No Gastrointestinal History of Gastrointestinal Di: Yes Gastrointestinal Disorders: Gastroesophageal Reflux, Irritable Bowel Musculoskeletal History of Musculoskeletal Dis: Yes Musculoskeletal Disorders: Degenerate Disk Disease, Chronic Back Pain Endocrine History of Endocrine Disorders: Yes (MORBID OBESITY) HEENT History of HEENT Disorders: No Loss of Vision: Denies Hearing Impairment: Denies Cancer History of Cancer: No Psychosocial History of Psychiatric Problem: Yes Behavioral Health Disorders: Sleep Difficulties, Anxiety, Depression Integumentary History of Skin or Integumenta: Yes (spider bite) Blood Transfusions History of Blood Disorders: No Family Medical History Significant Family History: CAD Over 55 Years Old, DVT/PE, Diabetes, Stroke, Other Conditions/Hx Family Medial History: Blood clots G8 BROTHER G8 SISTER Diabetes mellitus 19 MOTHER Headache disorder G8 SISTER Myocardial infarction 19 MOTHER STROKE 19 MOTHER G8 BROTHER Review of Systems-General Constitutional: No chills; malaise, weakness EENTM: No blurred vision, No double vision, No mouth pain, No mouth swelling, No epistaxis Respiratory: cough; No dyspnea on exertion, No hemoptysis; short of breath Cardiovascular: chest pain; No palpitations, No syncope Gastrointestinal: No abdominal pain, No nausea, No vomiting Genitourinary: No dysuria, No frequency, No hematuria Musculoskeletal: back pain, joint pain, joint swelling, muscle pain, muscle stiffness Skin: No change in color, No change in hair/nails; other (healing lesion left leg) Psychiatric/Neurological: Anxiety, Depressed; Denies Seizure, Denies Tremors Other pt denies any hx of abnormal bleeding or bruising Physical Exam-General Problems Physical Exam Vital Signs Vital Signs - First Documented 07/22/19 07/22/19 06:35 10:15 Pulse Ox 92 O2 Flow Rate 3.00 Capillary Refill : Less Than 3 Seconds General Appearance: no apparent distress, obese Eyes: Bilateral Eye PERRL, Bilateral Eye EOMI HEENT: pharynx normal; No scleral icterus (R), No scleral icterus (L) Neck: supple; No thyromegaly Respiratory: lungs clear, normal breath sounds, no respiratory distress, no accessory muscle use, wheezing (inspiratory) Cardiovascular: regular rate, rhythm, no murmur Gastrointestinal: non tender, soft, no organomegaly, no pulsatile mass Back: no CVA tenderness, no vertebral tenderness Extremities: no pedal edema, no calf tenderness, normal capillary refill Neurologic/Psychiatric: machine fitter II-XII nml as tested, alert, oriented x 3 Skin: normal color, warm/dry, other (3cm scab left lateral calf, mainly scab with no surrounding erythema, no fluctuance and no crepitance) Lymphatic: no adenopathy (neck, axilla or groin) Data Review Labs Laboratory Tests 07/22/19 03:53: White Blood Count 2.2L, Red Blood Count 5.33, Hemoglobin 11.5, Hematocrit 40, Mean Corpuscular Volume 75L, Mean Corpuscular Hemoglobin 22L, Mean Corpuscular Hemoglobin Concent 29L, Red Cell Distribution Width 19.2H, Platelet Count 241, Mean Platelet Volume 9.7, Neutrophils (%) (Auto) 77H, Lymphocytes (%) (Auto) 21, Monocytes (%) (Auto) 1, Eosinophils (%) (Auto) 1, Basophils (%) (Auto) 1, Neutrophils # (Auto) 1.7L, Lymphocytes # (Auto) 0.5L, Monocytes # (Auto) 0.0, Eosinophils # (Auto) 0.0, Basophils # (Auto) 0.0, Prothrombin Time 16.5H, INR Co mment 1.3, Activated Partial Thromboplast Time 30, D-Dimer > 20.00*H, Sodium Level 138, Potassium Level 3.9, Chloride Level 102, Carbon Dioxide Level 21, Anion Gap 15H, Blood Urea Nitrogen 12, Creatinine 1.07, Estimat Glomerular Filtration Rate 55, BUN/Creatinine Ratio 11, Glucose Level 106H, Calcium Level 9.4, Corrected Calcium 9.7, Magnesium Level 1.4L, Total Bilirubin 0.7, Aspartate Amino Transf (AST/SGOT) 81H, Alanine Aminotransferase (ALT/SGPT) 25, Alkaline Phosphatase 157H, Myoglobin 22.4, Troponin I < 0.028, B-Type Natriuretic Peptide < 10.0, Total Protein 7.4, Albumin 3.6, Lipase 46 07/22/19 08:32: Urine Color YELLOW, Urine Clarity SL CLOUDY, Urine pH 5.5, Urine Specific Fouke <=1.005, Urine Protein NEGATIVE, Urine Glucose (UA) NEGATIVE, Urine Ketones NEGATIVE, Urine Nitrite NEGATIVE, Urine Bilirubin NEGATIVE, Urine Urobilinogen 0.2, Urine Leukocyte Esterase NEGATIVE, Urine RBC (Auto) NEGATIVE, Urine RBC NONE, Urine WBC NONE, Urine Squamous Epithelial Cells 0-2, Urine Crystals NONE, Urine Bacteria MODERATEH, Urine Casts NONE, Urine Mucus NEGATIVE, Urine Culture Indicated NO, Urine Opiates Screen POSITIVEH, Urine Oxycodone Screen NEGATIVE, Urine Methadone Screen NEGATIVE, Urine Propoxyphene Screen NEGATIVE, Urine Barbiturates Screen NEGATIVE, Ur Tricyclic Antidepressants Screen POSITIVEH, Urine Phencyclidine Screen NEGATIVE, Urine Amphetamines Screen NEGATIVE, Urine Methamphetamines Screen NEGATIVE, Urine Benzodiazepines Screen NEGATIVE, Urine Cocaine Screen NEGATIVE, Urine Cannabinoids Screen NEGATIVE 07/22/19 09:04: Lactic Acid Level 3.81*H, Procalcitonin 56.15H 07/22/19 11:44: Glucometer 114H 07/22/19 11:45: Lactic Acid Level 4.47*H Assessment/Plan Assessment/Plan Assessment/Plan Chest pain Elevated Lactic Acid Hypotension Chronic Bronchitis Leukopenia Pt on labs and vitals appears very ill, but CTA was negative for PE and did not really show more than some mild atelectasis. CTA of chest got upper portion of abdomen and bowel at least in that area appeared normal and no pancreatitis. It is very unlikely the healing left leg wound is causing her problems, but US is ordered. I also ordered blood cultures and will put in a central line for IV access. Discussed procedure with pt; risks and complications not limited to pain, bleeding, infection, scar and even pneumothorax. Will use US to help place catheter. Clinical Quality Measures AMI/AHF: ASA po Prior to arrival: Yes (324 MG PER EMS) DVT/VTE Risk/Contraindication: Risk Factor Score Per Nursin RFS Level Per Nursing on Admit: 4+=Very High NICK ALAN DO Jul 22, 2019 12:49
[2019-07-22] MEDS: inSUlin ASPART (NovoLOG) 1 UNIT/0.01 ML (CHARGE PER UNIT) SQ SCH ×2 (12:56→18:08)
--- NOTE | 2019-07-22 12:57 | Progress Note-Post Operative ---
Post-Operative Progess Note Surgeon (s)/Braille Duplicating Machine Operator (s) Surgeon NICK ALAN DO Braille Duplicating Machine Operator: none Pre-Operative Diagnosis Venous Insufficiency, Hypotension Post-Operative Diagnosis same Procedure & Operative Findings Date of Procedure 07/22/19 Procedure Performed/Findings Triple Lumen Central line with US guidance Anesthesia Type Local lidocaine Estimated Blood Loss Estimated blood loss (mL): scant Specimens/Packing Specimens Removed none NICK ALAN DO Jul 22, 2019 12:57
--- NOTE | 2019-07-22 13:35 | NUR ---
RECEIVED PT AT 0700. PT WAS COMPLAINING OF CHEST PAIN. GAVE 1 DOSE OF MORPHINE 4MG. PT WAS ABLE TO WALK TO BATHROOM AND VOID PRIOR TO MORPHINE. PT STATED THAT AFTER MORPHINE DOES, THE PAIN HAD IMPROVED. SHORTLY AFTER 0900 PT STARTED BECOMING MORE LETHARGIC AND BP BEGAN TO DROP.SENT MESSAGE TO DR RIVERA AND DR FLORES CAME IN RIGHT AFTER. DR FLORES GAVE THE ORDER TO MOVE PT FROM CSD TO ICU AND CHANGE STATUS TO ICU. DR FLORES ALSO GAVE ORDER TO GIVE [address] RIVERA ALSO MESSAGED AND ORDERED LR 30 ML/KG. DR FLORES CALLED LATER TO CHECK UP, AND ORDERED A CENTRAL LINE TO BE PLACED DUE TO HYPOTENSION. CONTACTED DR ALAN ABOUT CENTRAL LINE. DR ALAN CAME IN AND INSERTED CENTRAL LINE. DR ALAN ALSO STATED THAT XRAY WAS NOT NEEDED FOR CONFIRMATION.
--- NOTE | 2019-07-22 14:13 | Consultation-Cardiology ---
HPI-Cardiology Cardiology Consultation: Date of Consultation 07/22/19 Time Seen by a Provider: 13:50 Date of Admission Attending Physician Bridgette Howard DO Admitting Physician [place] Consulting Physician STACIA GOODSON MD, MA, FACP, FACC, [facility] [place] [facility] HPI: Chief Complaint: Reason for Cardiology consultation: Chest pain HPI 49 yo woman admitted to Dr Howard's service this am with chest pain and nausea and vomiting and gen malaise. In the hospital, she has had decreasing responsiveness and decreasing blood pressure. Currently, somnolent/obtunded and responds in monosyllable and tends to drift off into sleep Cannot provide any details of cp at presentation. Denies cp currently Denies shortness of breath or palp or syncope Does report gen weakness and malaise Does not current report nausea or vomiting or abd pain Review of Systems-Cardiology Review of Systems Constitutional: other (Pt is somnolent and has decrease reponsiveness and is unable to answer questions in detail. ROS, to the extent it could be obtained, is described above under HPI) All Other Systems Reviewed Negative Unless Noted: Yes [id number] Hx Patient Social History Alcohol Use: Denies Use Recreational Drug Use: Yes Drug of Choice: cannabis Smoking Status: Current Everyday Smoker Type Used: Cigarettes 2nd Hand Smoke Exposure: No Recent Foreign Travel: No Recent Infectious Disease Expo: No Hospitalization with Isolation: Denies Immunizations Up To Date Tetanus Booster (TDap): Less than 5yrs Date of Pneumonia Vaccine: May 22, 2015 Date of Influenza Vaccine: Apr 15, 2018 Past Medical History PMH As described under Assessment. Family Medical History Family History: Blood clots G8 BROTHER G8 SISTER Diabetes mellitus 19 MOTHER Headache disorder G8 SISTER Myocardial infarction 19 MOTHER STROKE 19 MOTHER G8 BROTHER Allergies and Home Medications Allergies Coded Allergies: Penicillins (Unverified Allergy, Mild, Has had Ancef w/o issue, 07/22/19) dimenhydrinate (Verified Allergy, Mild, 07/22/19) prochlorperazine (Unverified Allergy, Mild, 07/22/19) Uncoded Allergies: ANTI-EMETICS (Allergy, Mild, 03/26/08) ANTI-NAUSEA MEDICATIONS EXCEPT DRAMAMINE (Allergy, Mild, MAKE HER HAVE ANXIETY ATTACKS, 08/29/08) ANTIEMETICS (Allergy, Mild, 12/09/08) NAUSEA MEDS (Allergy, Mild, 12/01/08) Home Medications Buspirone HCl 15 Mg Tablet, 15 MG PO BID, (Reported) Clindamycin HCl 300 Mg Capsule, 600 MG PO TID Prescribed by: ONESIMO MOHAN on 06/19/19 1151 Clonidine HCl 0.1 Mg Tablet, 0.1 MG PO TID, (Reported) Cyclobenzaprine HCl 10 Mg Tablet, 10 MG PO TID PRN for MUSCLE SPASMS, (Reported) Diphenhydramine HCl 25 Mg Capsule, 25 MG PO Q8H PRN for ITCHING, (Reported) Famotidine 20 Mg Tablet, 20 MG PO DAILY PRN for HEARTBURN, (Reported) Gabapentin 800 Mg Tablet, 800 MG PO TID, (Reported) Hydrocodone Bit/Acetaminophen 1 Tab Tab, 1 TAB PO Q4-6HR Prescribed by: ONESIMO MOHAN on 06/19/19 1151 Hydroxyzine Pamoate 25 Mg Capsule, 25 MG PO TID PRN for ANXIETY, (Reported) Oxybutynin Chloride 5 Mg Tablet, 5 MG PO BID, (Reported) Paroxetine HCl 40 Mg Tablet, 40 MG PO DAILY, (Reported) LAST FILLED #30 04-11-19 Trazodone HCl 100 Mg Tablet, 200 MG PO HS, (Reported) LAST FILLED #60 04-11-19 TAKES 2 (100MG) TABLETS Patient Home Medication List Home Medication List Reviewed: Yes Physical Exam-Cardiology Physical Exam Vital Signs/I&O 07/22/19 07/22/19 07/22/19 07/22/19 03:48 03:48 06:35 06:39 Temp 36.6 36.8 36.4 Pulse 118 112 101 Resp 22 22 18 B/P (MAP) 131/106 (114) 93/56 (114) 91/61 (71) Pulse Ox 92 92 O2 Delivery Room Air Room Air Room Air Room Air 07/22/19 07/22/19 07/22/19 07/22/19 06:46 06:52 07:00 10:15 Temp 36.4 36.4 Pulse 101 101 99 Resp 18 18 B/P (MAP) 91/61 81/61 (68) Pulse Ox 92 92 92 O2 Delivery Room Air Room Air Nasal Cannula O2 Flow Rate 3.00 07/22/19 07/22/19 07/22/1920 10:30 10:45 11:00 11:15 Pulse 98 105 96 95 Resp 16 25 17 17 B/P (MAP) 96/57 (70) 72/60 (64) 82/58 (66) 96/59 (71) Pulse Ox 95 90 90 95 O2 Delivery Nasal Cannula Nasal Cannula Nasal Cannula Nasal Cannula O2 Flow Rate 3.00 3.00 3.00 3.00 07/22/19 07/22/19 07/22/19 07/22/19 11:30 12:00 12:15 12:27 Temp 36.8 Pulse 90 91 96 Resp 14 32 13 B/P (MAP) 87/58 (68) 80/61 (67) 82/59 (67) Pulse Ox 95 95 95 O2 Delivery Nasal Cannula Nasal Cannula Nasal Cannula O2 Flow Rate 3.00 3.00 3.00 07/22/19 12:30 Pulse 94 Resp 17 B/P (MAP) 90/63 (72) Pulse Ox 95 O2 Delivery Nasal Cannula O2 Flow Rate 3.00 Capillary Refill : Less Than 3 Seconds Constitutional: AAO x 3 (slow to answer questions, but does appear oriented to person and place and time), well-developed, well-nourished HEENT: EOMI, hearing is well preserved; No xanthelasmas are seen Neck: No carotid pulses are 2 + bilaterally, No with good upstrokes Respiratory: No accessory muscle use; other (fair to good air entry, diminished at the bases, prolonged exp phase) Cardiovascular: regular rate-rhythm, S1 and S2, systolic murmur (soft SERENA at card base) Gastrointestinal: No tender; soft; No guarding, No rebound, No audible bowel sounds Extremities: No clubbing, No cyanosis, No significant edema Neurologic/Psychiatric: other (seems to move all limbs equally) Skin: warm/dry; No diaphoresis, No pallor, No rash on exposed areas, No ulcerations on exposed areas Data Review Labs Laboratory Tests 07/22/19 03:53: White Blood Count 2.2L, Red Blood Count 5.33, Hemoglobin 11.5, Hematocrit 40, Mean Corpuscular Volume 75L, Mean Corpuscular Hemoglobin 22L, Mean Corpuscular Hemoglobin Concent 29L, Red Cell Distribution Width 19.2H, Platelet Count 241, Mean Platelet Volume 9.7, Neutrophils (%) (Auto) 77H, Lymphocytes (%) (Auto) 21, Monocytes (%) (Auto) 1, Eosinophils (%) (Auto) 1, Basophils (%) (Auto) 1, Neutrophils # (Auto) 1.7L, Lymphocytes # (Auto) 0.5L, Monocytes # (Auto) 0.0, Eosinophils # (Auto) 0.0, Basophils # (Auto) 0.0, Prothrombin Time 16.5H, INR Comment 1.3, Activated Partial Thromboplast Time 30, D-Dimer > 20.00*H, Sodium Level 138, Potassium Level 3.9, Chloride Level 102, Carbon Dioxide Level 21, Anion Gap 15H, Blood Urea Nitrogen 12, Creatinine 1.07, Estimat Glomerular Filtration Rate 55, BUN/Creatinine Ratio 11, Glucose Level 106H, Calcium Level 9.4, Corrected Calcium 9.7, Magnesium Level 1.4L, Total Bilirubin 0.7, Aspartate Amino Transf (AST/SGOT) 81H, Alanine Aminotransferase (ALT/SGPT) 25, Alkaline Phosphatase 157H, Myoglobin 22.4, Troponin I < 0.028, B-Type Natriuretic Peptide < 10.0, Total Protein 7.4, Albumin 3.6, Lipase 46 07/22/19 08:32: Urine Color YELLOW, Urine Clarity SL CLOUDY, Urine pH 5.5, Urine Specific Gravit y <=1.005, Urine Protein NEGATIVE, Urine Glucose (UA) NEGATIVE, Urine Ketones NEGATIVE, Urine Nitrite NEGATIVE, Urine Bilirubin NEGATIVE, Urine Urobilinogen 0.2, Urine Leukocyte Esterase NEGATIVE, Urine RBC (Auto) NEGATIVE, Urine RBC NONE, Urine WBC NONE, Urine Squamous Epithelial Cells 0-2, Urine Crystals NONE, Urine Bacteria MODERATEH, Urine Casts NONE, Urine Mucus NEGATIVE, Urine Culture Indicated NO, Urine Opiates Screen POSITIVEH, Urine Oxycodone Screen NEGATIVE, Urine Methadone Screen NEGATIVE, Urine Propoxyphene Screen NEGATIVE, Urine Barbiturates Screen NEGATIVE, Ur Tricyclic Antidepressants Screen POSITIVEH, Urine Phencyclidine Screen NEGATIVE, Urine Amphetamines Screen NEGATIVE, Urine Methamphetamines Screen NEGATIVE, Urine Benzodiazepines Screen NEGATIVE, Urine Cocaine Screen NEGATIVE, Urine Cannabinoids Screen NEGATIVE 07/22/19 09:04: Lactic Acid Level 3.81*H, Procalcitonin 56.15H 07/22/19 11:44: Glucometer 114H 07/22/19 11:45: Lactic Acid Level 4.47*H Laboratory Tests 07/22/19 03:53 A/P-Cardiology Assessment/Admission Diagnosis Septicemia and septic shock Chest pain w/o any evidence of ACS or CHF Chronic tobacco use Discussion and Recomendations * Septicemia and septic shock are being managed by Hospitalist and ICU services * Echo to eval for structural heart disease and pulm htn * Monitor labs * Will educate on smoking cessation after she has regained normal mentation Clinical Quality Measures AMI/AHF: ASA po Prior to arrival: Yes (324 MG PER EMS) DVT/VTE Risk/Contraindication: Risk Factor Score Per Nursin RFS Level Per Nursing on Admit: 4+=Very High STACIA GOODSON MD FACP [facility] Jul 22, 2019 14:13
[2019-07-22] MEDS ORDERED: VANCOMYCIN INJECTION 0.1 MG in NS (IVPB) 250 ML IV SCH (14:15)
[2019-07-22 14:18] LABS: ABG BASE EXCESS -4.8 MMOL/L (-2.5-2.5); ABG OXYGEN SATURATION 83 % (94-100); ABG PCO2 49 MMHG (35-45); ABG PO2 50 MMHG (79-93); ABG TCO2 22.7 MMOL/L (21.0-31.0)
[2019-07-22 14:20] LABS: ABG PH 7.26 (7.37-7.43); ALLENS TEST YES-POS; INSPIRED O2 3; PATIENT TEMP 36.5; VENTILATOR NO
[2019-07-22] MEDS: RT-ALBUTEROL/IPRATROPIUM 3 ML (DUONEB) VIAL INH SCH ×3 (15:14→21:39)
--- NOTE | 2019-07-22 15:25 | OPERATIVE REPORT ---
DATE OF SERVICE: PREOPERATIVE DIAGNOSES: Venous insufficiency, hypotension. POSTOPERATIVE DIAGNOSES: Venous insufficiency, hypotension. PROCEDURE: Insertion of triple lumen catheter with ultrasound guidance. SURGEON: Mayank Garcia DO. EXHIBIT CARPENTER: None. ANESTHESIA: Local lidocaine. BLOOD LOSS: Scant. FLUIDS: None. SPECIMENS: None. INDICATION FOR PROCEDURE: The patient is a 49-year-old female, who came in with chest pain and lactic acid is increasing. She is hypotensive. She has a leukopenia, looking septic and needed IV access for vasopressor if need be. FINDINGS: The patient had a central line placed right IJ with ultrasound guidance. PROCEDURE NOTE: After informed consent was obtained, the patient was in her bed in the ICU. She was sterilely prepped and draped in a normal fashion. Local lidocaine was used to infiltrate the skin over the right neck. Then, using ultrasound found the internal jugular vein and then watched as we advanced the 18-gauge final needle right into the vein, good flash of blood, removed the syringe, placed a guidewire down the needle using Seldinger technique, it went in easily, removed the needle, made a stab incision at the guidewire, checked with ultrasound and the guidewire was in the IJ and then over the guidewire, I placed a dilator using a Seldinger technique and then removed this and then over the guidewire, placed a catheter using Seldinger technique, it went in easily, removed the guidewire and then placed capsule on the central line and then easily aspirated and flushed all three ports. I sutured this in place with a 3-0 silk suture on a Esau needle. Area was then cleaned and dried and a dressing was placed. The patient tolerated the procedure. Sponge, instrument and needle count were correct at the end of the case. Job ID: [id number] DocumentID: [id number] Dictated Date: 07/22/2019 14:09:16 Research Mechanic Date: 07/22/2019 15:24:22 Dictated By: MAYANK GARCIA DO
[2019-07-22] MEDS ORDERED: VANCOMYCIN 1 GM/NS 250 ML IVPB IV SCH ×2 (16:00)
[2019-07-22] MEDS ORDERED: CEFEPIME 1 GM (MAXIPIME) VIAL ONE ×2 (16:07→20:34)
[2019-07-22] MEDS ORDERED: WATER (STERILE) FOR INJECTION 10 ML ONE ×2 (16:08→20:34)
[2019-07-22 18:13] LABS: ABG BASE EXCESS -2.7 MMOL/L (-2.5-2.5); ABG OXYGEN SATURATION 99 % (94-100); ABG PCO2 45 MMHG (35-45); ABG PO2 118 MMHG (79-93); ABG TCO2 23.9 MMOL/L (21.0-31.0)
[2019-07-22 18:15] LABS: ABG PH 7.32 (7.37-7.43)
[2019-07-22 18:16] LABS: INSPIRED O2 35%; PATIENT TEMP 36.7; VENTILATOR NO
[2019-07-22 18:17] LABS: ALLENS TEST POS
[2019-07-22] MEDS: VANCOMYCIN 1 GM/NS 250 ML IVPB IV SCH ×2 (18:24)
--- NOTE | 2019-07-22 18:35 | NUR ---
LAB CALLED WITH CRITICAL LACTIC ACID AND PH. RELAYED TO DR RIVERA. NO ORDERS RECEIVED AT THIS TIME
[2019-07-23] VITALS (15 sets, daily range): BP systolic 94–125; BP diastolic 57–72
[2019-07-23] MEDS: LACTATED RINGERS 1,000 ML IV SCH ×3 (00:19→10:19)
[2019-07-23] MEDS: inSUlin ASPART (NovoLOG) 1 UNIT/0.01 ML (CHARGE PER UNIT) SQ SCH ×2 (00:19→04:11)
[2019-07-23] MEDS: VANCOMYCIN 1 GM/NS 250 ML IVPB IV SCH ×4 (02:28→10:18)
[2019-07-23] MEDS ORDERED: WATER (STERILE) FOR INJECTION 10 ML ONE (03:29)
[2019-07-23] MEDS ORDERED: CEFEPIME 1 GM (MAXIPIME) VIAL ONE (03:29)
[2019-07-23 03:39] LABS: BASOPHILS # (AUTO) 0.1 10^3/uL (0.0-0.1); BASOPHILS % (AUTO) 0 % (0-10); EOSINOPHILS # (AUTO) 0.1 10^3/uL (0.0-0.3); EOSINOPHILS % (AUTO) 1 % (0-10); HEMATOCRIT 31 % (35-52); LYMPHOCYTES # (AUTO) 2.7 X 10^3 (1.0-4.0); LYMPHOCYTES % (AUTO) 14 % (12-44); MEAN CORPUSCULAR HEMOGLOBIN 22 PG (25-34); MEAN CORPUSCULAR HGB CONC 29 G/DL (32-36); MEAN CORPUSCULAR VOLUME 76 FL (80-99); MEAN PLATELET VOLUME 10.6 FL (7.4-10.4); MONOCYTES # (AUTO) 2.1 X 10^3 (0.0-1.0); MONOCYTES % (AUTO) 11 % (0-12); NEUTROPHILS # (AUTO) 14.2 X 10^3 (1.8-7.8); NEUTROPHILS % (AUTO) 74 % (42-75); PLATELET COUNT 140 10^3/uL (130-400); RED CELL DISTRIBUTION WIDTH 18.6 % (10.0-14.5); WHITE BLOOD COUNT 19.2 10^3/uL (4.3-11.0)
[2019-07-23] MEDS: CEFEPIME INJECTION 1,000 MG in WATER (STERILE) FOR INJECTION 10 ML IV SCH (03:46)
[2019-07-23] MEDS: RT-ALBUTEROL/IPRATROPIUM 3 ML (DUONEB) VIAL INH SCH ×4 (03:53→14:45)
--- NOTE | 2019-07-23 04:01 | Pulmonary Progress Note ---
CARRIE REBOLLEDO MEDICAL STUDENT 07/23/19 0401: Subjective Date Seen by a Provider: Jul 23, 2019 Time Seen by a Provider: 03:56 Subjective/Events-last exam Pt has improved. She is alert this morning, sitting up in bed, and says she does not remember much about yesterday aside from "lots of doctors coming to see" her . She still has some CP but says it has decreased. Denies nausea. She asks when she will be able to go home because she has a dog at home and no one who can come to take care of it. Review of Systems General: No Chills, No Malaise HEENT: No Head Aches, No Dysphasia Pulmonary: No Dyspnea, No Pleuritic Chest Pain Cardiovascular: Chest Pain; No: Edema Gastrointestinal: No: Nausea, Vomiting Genitourinary: No Dysuria, No Frequency Neurological: No: Weakness, Confusion Sepsis Event Evaluation Height, Weight, BMI Height: 5'6.00" Weight: 235lbs. 0oz. 106.597930gf; 40.28 BMI Method:Stated Focused Exam Lactate Level 07/22/19 14:40: Lactic Acid Level 3.16*H 07/22/19 16:50: Lactic Acid Level 2.47*H 07/22/19 19:10: Lactic Acid Level 2.00 Exam Exam Vital Signs Date Time Temp Pulse Resp B/P (MAP) Pulse Ox O2 Delivery O2 Flow Rate FiO2 07/23/19 03:00 90 19 112/60 (77) 96 Nasal Cannula 2.00 07/23/19 02:00 94 26 96/57 (70) 95 Nasal Cannula 2.00 07/23/19 01:00 94 07/23/19 01:00 94 23 102/66 (78) 93 Nasal Cannula 2.00 07/23/19 00:40 90 26 94 Nasal Cannula 2.00 07/23/19 00:15 92 21 97 Room Air 07/23/19 00:00 98 NIV Bilevel 35 07/23/19 00:00 98 NIV Bilevel 35 07/23/19 00:00 92 10 107/59 (75) 100 NIV Bilevel 15.00 25.00 07/22/19 23:15 87 15 96/54 (68) 97 NIV Bilevel 15.00 25.00 07/22/19 22:00 88 14 100/50 (67) 96 NIV Bilevel 15.00 25.00 07/22/19 21:41 87 29 97 NIV Bilevel 15.00 25.00 07/22/19 21:09 86 24 98/49 (65) 98 NIV Bilevel 15.00 30.00 07/22/19 20:00 36.4 07/22/19 20:00 84 15 102/64 (77) 98 NIV Bilevel 15.00 30.00 07/22/19 20:00 NIV Bilevel 35 07/22/19 20:00 NIV Bilevel 35 07/22/19 19:12 85 16 97 NIV Bilevel 15.00 30.00 07/22/19 19:00 85 12 108/77 (87) 98 NIV Bilevel 15.00 35.00 07/22/19 19:00 85 07/22/19 18:55 84 18 99 30.00 07/22/19 18:00 87 15 111/56 (74) 98 NIV Bilevel 15.00 35.00 07/22/19 17:00 92 14 106/65 (79) 98 NIV Bilevel 15.00 35.00 07/22/19 16:00 Nasal Cannula 07/22/19 16:00 96 16 115/83 (94) 97 NIV Bilevel 15.00 35.00 07/22/19 16:00 37.0 07/22/19 16:00 Room Air 07/22/19 15:53 96 16 98 35.00 07/22/19 15:45 98 10 115/83 (94) 99 Vapotherm 40.00 50.00 07/22/19 15:30 99 14 117/70 (86) 99 Vapotherm 40.00 50.00 07/22/19 15:16 99 Vapotherm 40.00 50 07/22/19 15:15 93 12 108/66 (80) 99 Vapotherm 40.00 50.00 07/22/19 15:00 97 13 114/73 (87) 96 Nasal Cannula 3.00 07/22/19 14:45 96 13 108/70 (83) 96 Nasal Cannula 3.00 07/22/19 14:30 96 15 92/64 (73) 94 Nasal Cannula 3.00 07/22/19 14:15 97 13 94/72 (79) 95 Nasal Cannula 3.00 07/22/19 14:00 93 15 100/63 (75) 95 Nasal Cannula 3.00 07/22/19 13:45 96 15 98/62 (74) 95 Nasal Cannula 3.00 07/22/19 13:30 96 15 92/64 (73) 94 Nasal Cannula 3.00 07/22/19 13:15 97 13 94/72 (79) 94 Nasal Cannula 3.00 07/22/19 13:00 97 15 91/63 (72) 93 Nasal Cannula 3.00 07/22/19 13:00 98 07/22/19 12:45 20 90/66 (74) 96 Nasal Cannula 3.00 07/22/19 12:30 94 17 90/63 (72) 95 Nasal Cannula 3.00 07/22/19 12:27 36.8 07/22/19 12:15 96 13 82/59 (67) 95 Nasal Cannula 3.00 07/22/19 12:00 Room Air 07/22/19 12:00 Nasal Cannula 07/22/19 12:00 91 32 80/61 (67) 95 Nasal Cannula 3.00 07/22/19 11:30 90 14 87/58 (68) 95 Nasal Cannula 3.00 07/22/19 11:15 95 17 96/59 (71) 95 Nasal Cannula 3.00 07/22/19 11:00 96 17 82/58 (66) 90 Nasal Cannula 3.00 07/22/19 10:45 105 25 72/60 (64) 90 Nasal Cannula 3.00 07/22/19 10:30 98 16 96/57 (70) 95 Nasal Cannula 3.00 07/22/19 10:15 36.4 99 18 81/61 (68) 92 Nasal Cannula 3.00 07/22/19 08:00 Room Air 07/22/19 08:00 37.4 106 16 88/60 (69) 93 Room Air 07/22/19 07:00 101 07/22/19 06:52 92 Room Air 07/22/19 06:46 36.4 101 18 91/61 92 Room Air 07/22/19 06:39 36.4 101 18 91/61 (71) 92 Room Air 07/22/19 06:35 36.8 112 22 93/56 (114) 92 Room Air I & O 07/23/19 07:00 Intake Total 0 ml Output Total 2650 ml Balance -2650 ml Height & Weight Height: 5'6.00" Weight: 235lbs. 0oz. 106.852869mv; 40.28 BMI Method:Stated General Appearance: No Apparent Distress, WD/WN, Obese HEENT: PERRL/EOMI, Normal ENT Inspection, Pharynx Normal, Moist Mucous Membranes Neck: Full Range of Motion, Normal Inspection, Non Tender, Other (central line in place) Respiratory: Chest Non Tender, Lungs Clear, Normal Breath Sounds, No Accessory Muscle Use, No Respiratory Distress Cardiovascular: Regular Rate, Rhythm, No Edema, No Gallop, No JVD, No Murmur, Normal Peripheral Pulses Capillary Refill: Less Than 3 Seconds Gastrointestinal: normal bowel sounds, non tender, soft, no organomegaly Extremity: Normal Capillary Refill, Normal Inspection, Normal Range of Motion, Non Tender, No Calf Tenderness Neurologic/Psychiatric: Alert, Oriented x3, No Motor/Sensory Deficits Skin: Normal Color, Warm/Dry Lymphatic: No Adenopathy Results Lab Laboratory Tests 07/22/19 03:53 07/23/19 03:30 Assessment/Plan Assessment/Plan Severe Sepsis of unknown origin -Pt can be transferred to floor for ongoing IV abx -AMS and lactate improved after aggressive IVF resuscitation, no pressors required -Pt weaned from BiPAP to 2L via NC and saturations 96% -CT Chest shows RLL atelectasis but no infiltrate -Procalcitonin elevated -UA neg for infection -Blood cultures pending -Started empirically on Cefepime and Vancomycin 07/21 -MRSA swab pending (Pt has hx of MRSA infection) -Influenza A/B pending Chest pain w/ elevated troponin -Consulted cardiology, Echo pending -D-dimer elevated, CTA negative for PE -Doppler US bilateral LE pending r/o DVT -Lovenox therapeutic dosing until DVT is r/o Nausea and vomiting -Resolved today -Lipase is normal -UDS positive for tricyclics and opioids Leukocytosis -WBC now 11.2 Anxiety -Resume home meds Tobacco use -Education KAYKAY RIVERA DO 07/23/19 0509: Subjective Time Seen by a Provider: 05:04 Subjective/Events-last exam Pt is doing better now. Exam Exam General Appearance: No Apparent Distress, WD/WN, Obese HEENT: PERRL/EOMI, Normal ENT Inspection, Pharynx Normal, Moist Mucous Membranes Neck: Full Range of Motion, Normal Inspection, Non Tender Respiratory: Chest Non Tender, Lungs Clear, Normal Breath Sounds, No Accessory Muscle Use, No Respiratory Distress Cardiovascular: Regular Rate, Rhythm, No Edema, No Gallop, No JVD, No Murmur, Normal Peripheral Pulses Gastrointestinal: normal bowel sounds, non tender, soft, no organomegaly Extremity: Normal Capillary Refill, Normal Inspection, Non Tender, No Calf Tenderness Neurologic/Psychiatric: Alert, Oriented x3, No Motor/Sensory Deficits Skin: Normal Color, Warm/Dry Lymphatic: No Adenopathy CARRIE REBOLLEDO MEDICAL STUDENT Jul 23, 2019 04:01 KAYKAY RIVERA DO Jul 23, 2019 05:09
[2019-07-23 04:04] LABS: BUN/CREATININE RATIO 18; CALCIUM 8.5 MG/DL (8.5-10.1); CARBON DIOXIDE 22 MMOL/L (21-32); CHLORIDE 108 MMOL/L (98-107); CHOLESTEROL 99 MG/DL (< 200); CREATININE SERUM 0.96 MG/DL (0.60-1.30); GFR ESTIMATED > 60; GLUCOSE 76 MG/DL (70-105); HDL CHOLESTEROL 25 MG/DL (40-60); MAGNESIUM 1.7 MG/DL (1.6-2.4); PHOSPHORUS 3.3 MG/DL (2.3-4.7); POTASSIUM 4.7 MMOL/L (3.6-5.0); SODIUM 139 MMOL/L (135-145); TRIGLYCERIDES 92 MG/DL (<150); VLDL CHOLESTEROL 18 MG/DL (5-40)
[2019-07-23] MEDS: NITROGLYCERIN 2% OINT 1 GM UNIT DOSE PACKET TOP SCH ×2 (04:11→14:00)
[2019-07-23 04:16] LABS: BAND NEUTROPHILS 7 %; EOSINOPHILS % (MANUAL) 1 %; HYPOCHROMASIA MODERATE; LYMPHOCYTES % (MANUAL) 14 %; MONOCYTES % (MANUAL) 3 %; NEUTROPHILS % (MANUAL) 75 %
[2019-07-23] MEDS: MAGNESIUM 1 GM/100 ML IVPB 100 ML IV SCH ×2 (04:26→06:13)
[2019-07-23] MEDS ORDERED: KCL 20 MEQ TAB (K-DUR) PO SCH (06:00)
[2019-07-23] MEDS ORDERED: MAGNESIUM 1 GM/100 ML IVPB 100 ML IV SCH (06:00)
[2019-07-23] MEDS ORDERED: POTASSIUM CL 10MEQ/50ML IVPB 50 ML IV SCH (06:00)
--- NOTE | 2019-07-23 07:15 | Diagnostic Imaging Report ---
INDICATION: Chest pain. Hypotension. COMPARISON: 07/22/2019 FINDINGS: Single frontal radiographic view of the chest was obtained and shows stable cardiac silhouette and pulmonary vasculature. Lungs remain clear. There is no focal consolidation, large effusion, nor pneumothorax. Right internal jugular central venous catheter is now identified with tip in the SVC. Osseous structures show no new acute abnormalities. IMPRESSION: 1. No new acute cardiopulmonary process. 2. New right internal jugular central venous catheter with tip in the mid SVC. Dictated by: Dictated on workstation # [id number]
[2019-07-23] MEDS ORDERED: CEFEPIME INJECTION 1,000 MG in WATER (STERILE) FOR INJECTION 10 ML IV SCH (09:00)
--- NOTE | 2019-07-23 09:36 | Progress Note - Cardiology ---
Cardiology SOAP Progress Note Subjective: No cp or palp or syncope Gen weakness No focal weakness No n/v/d Objective: I&O/Vital Signs 07/22/19 07/22/19 07/22/19 07/22/19 21:39 21:41 22:00 23:15 Pulse 87 87 88 87 Resp 20 29 14 15 B/P (MAP) 100/50 (67) 96/54 (68) Pulse Ox 98 97 96 97 O2 Delivery NIV Bilevel NIV Bilevel NIV Bilevel O2 Flow Rate 25.00 15.00 15.00 15.00 25.00 25.00 25.00 07/23/19 07/23/19 07/23/19 07/23/19 00:00 00:00 00:00 00:00 Temp 37.3 Pulse 92 Resp 10 B/P (MAP) 107/59 (75) Pulse Ox 100 98 98 O2 Delivery NIV Bilevel NIV Bilevel NIV Bilevel O2 Flow Rate 15.00 25.00 FiO2 35 35 07/23/19 07/23/19 07/23/19 07/23/19 00:15 00:40 01:00 01:00 Pulse 92 90 94 94 Resp 21 26 23 B/P (MAP) 102/66 (78) Pulse Ox 97 94 93 O2 Delivery Room Air Nasal Cannula Nasal Cannula O2 Flow Rate 2.00 2.00 07/23/19 07/23/19 07/23/19 07/23/19 02:00 03:00 03:53 04:00 Pulse 94 90 Resp 19 B/P (MAP) 96/57 (70) 112/60 (77) Pulse Ox 95 96 95 94 O2 Delivery Nasal Cannula Nasal Cannula Room Air Nasal Cannula O2 Flow Rate 2.00 2.00 2.00 07/23/19 07/23/19 07/23/19 07/23/19 04:00 04:00 04:00 05:00 Temp 37.6 Pulse 88 94 Resp 21 B/P (MAP) 94/62 (73) 106/59 (75) Pulse Ox 94 94 94 O2 Delivery Nasal Cannula Nasal Cannula Nasal Cannula O2 Flow Rate 2.00 2.00 2.00 07/23/19 07/23/19 07/23/19 07/23/19 06:00 06:43 07:00 07:00 Pulse 93 96 96 Resp 20 23 B/P (MAP) 109/61 (77) 125/68 (87) Pulse Ox 93 95 94 O2 Delivery Nasal Cannula Room Air Nasal Cannula O2 Flow Rate 2.00 2.00 07/23/19 07/23/19 07/23/19 07/23/19 07:01 07:01 08:00 09:00 Temp 37.6 37.6 Pulse 100 100 Resp 21 25 B/P (MAP) 122/61 (81) 123/70 (87) Pulse Ox 93 100 O2 Delivery Nasal Cannula Nasal Cannula O2 Flow Rate 2.00 2.00 07/23/19 00:00 Intake Total 0 ml Output Total 2250 ml Balance -2250 ml Weight (Pounds): 235 Weight (Ounces): 0 Weight (Calculated Kilograms): 106.682753 Constitutional: AAO x 3 (slow to answer questions, but does appear oriented to person and place and time), well-developed, well-nourished Respiratory: No accessory muscle use; other (fair to good air entry, diminished at the bases, prolonged exp phase) Cardiovascular: regular rate-rhythm, S1 and S2, systolic murmur (soft SERENA at card base) Gastrointestional: No tender; soft; No guarding, No rebound, No audible bowel sounds Extremities: No clubbing, No cyanosis, No significant edema Neurologic/Psychiatric: other (seems to move all limbs equally) Skin: warm/dry; No diaphoresis, No pallor, No rash on exposed areas, No ulcerations on exposed areas Results/Procedures: Labs Laboratory Tests 07/22/19 11:44: Glucometer 114H 07/22/19 11:45: Lactic Acid Level 4.47*H 07/22/19 13:55: Blood Gas Puncture Site RIGHT WR, Blood Gas Patient Temperature 36.5, Arterial Blood pH 7.26*L, Arterial Blood Partial Pressure CO2 49H, Arterial Blood Partial Pressure O2 50L, Arterial Blood HCO3 21L, Arterial Blood Total CO2 22.7, Arterial Blood Oxygen Saturation 83L, Arterial Blood Base Excess -4.8L, Wily Test YES-POS, Blood Gas Ventilator Setting NO, Blood Gas Inspired Oxygen 3 07/22/19 14:40: Lactic Acid Level 3.16*H 07/22/19 16:20: Troponin I 0.107H 07/22/19 16:50: Lactic Acid Level 2.47*H 07/22/19 17:35: Glucometer 120H 07/22/19 17:50: Blood Gas Puncture Site RT WRIST, Blood Gas Patient Temperature 36.7, Arterial Blood pH 7.32*L, Arterial Blood Partial Pressure CO2 45, Arterial Blood Partial Pressure O2 118H, Arterial Blood HCO3 23, Arterial Blood Total CO2 23.9, Arterial Blood Oxygen Saturation 99, Arterial Blood Base Excess -2.7L, Wily Test POS, Blood Gas Ventilator Setting NO, Blood Gas Inspired Oxygen 35% 07/22/19 19:10: Lactic Acid Level 2.00 07/22/19 23:28: Glucometer 97 07/23/19 03:30: White Blood Count 19.2H, Red Blood Count 4.05L, Hemoglobin 9.0#L, Hematocrit 31L , Mean Corpuscular Volume 76L, Mean Corpuscular Hemoglobin 22L, Mean Corpuscular Hemoglobin Concent 29L, Red Cell Distribution Width 18.6H, Platelet Count 140, Mean Platelet Volume 10.6H, Neutrophils (%) (Auto) 74, Lymphocytes (%) (Auto) 14, Monocytes (%) (Auto) 11, Eosinophils (%) (Auto) 1, Basophils (%) (Auto) 0, Neutrophils # (Auto) 14.2H, Lymphocytes # (Auto) 2.7, Monocytes # (Auto) 2.1H, Eosinophils # (Auto) 0.1, Basophils # (Auto) 0.1, Neutrophils % (Manual) 75, Lymphocytes % (Manual) 14, Monocytes % (Manual) 3, Eosinophils % (Manual) 1, Band Neutrophils 7, Hypochromasia MODERATE, Sodium Level 139, Potassium Level 4.7, Chloride Level 108H, Carbon Dioxide Level 22, Anion Gap 9, Blood Urea Nitrogen 17, Creatinine 0.96, Estimat Glomerular Filtration Rate > 60, BUN/Creatinine Ratio 18, Glucose Level 76, Calcium Level 8.5, Phosphorus Level 3.3, Magnesium Level 1.7, Triglycerides Level 92, Cholesterol Level 99, LDL Cholesterol Direct 54, VLDL Cholesterol 18, HDL Cholesterol 25L, Procalcitonin 34.38H Microbiology 07/23/19 Influenza Types A,B Antigen (ELLA) - Final, Complete Laboratory Tests 07/22/19 03:53 07/23/19 03:30 A/P: Assessment: Septicemia and septic shock Minimal troponin elevation due to hypotension (type-2 TN) Chest pain w/o any evidence of ACS or CHF Chronic tobacco use Plan: * Continue treatment of septicemia and shock * Echo * We advised immediate and complete smoking cessation * Monitor labs Clinical Quality Measures AMI/AHF: ASA po Prior to arrival: Yes (324 MG PER EMS) STACIA GOODSON MD FACP [facility] Jul 23, 2019 09:36
[2019-07-23] MEDS: ASPIRIN E.C. 81 MG (ECOTRIN) TAB PO SCH (10:14)
[2019-07-23] MEDS: meTOproloL SUCCINATE 50 MG (TOPROL XL) TAB PO SCH (10:14)
[2019-07-23] MEDS: GABAPENTIN 400 MG (NEURONTIN) CAP PO SCH ×2 (10:14→13:00)
[2019-07-23] MEDS: morphine INJ 4 MG/ML 1 ML (VIAL/SYRINGE) IV PRN (10:41)
--- NOTE | 2019-07-23 10:46 | Diagnostic Imaging Report ---
PROCEDURE: US Venous Lower Ext Carlos. TECHNIQUE: Multiple real-time grayscale images were obtained over the lower extremities in various projections, bilaterally. Additional duplex Doppler and color Doppler images were also obtained. INDICATION: Bilateral lower extremity edema and pain. COMPARISON: 05/30/2019 FINDINGS: The bilateral common femoral vein, femoral vein, deep femoral vein, and popliteal vein are normal in appearance. These vessels show normal compressibility, color flow and doppler augmentation. The visualized deep calf veins demonstrate no distinct intraluminal thrombus. IMPRESSION: 1. No sonographic evidence of deep venous thrombosis in the bilateral lower extremities. Dictated by: Dictated on workstation # [id number]
[2019-07-23] MEDS: ENOXAPARIN 300 MG/3 ML (LOVENOX) MULTI-DOSE VIAL SQ SCH (11:02)
--- NOTE | 2019-07-23 11:25 | Progress Note - Hospitalist ---
CHRISTEL PRESTON,MED STUDENT 07/23/19 1125: Subjective HPI/CC On Admission Date Seen by Provider: Jul 23, 2019 Time Seen by Provider: 09:20 CC: Hypotension with AMS HPI: This is a 49yoWF who presented to the ER with chest pain. CT angiogram was obtained and standard w/u and Dr Garcia was consulted for N/V. Patient arrived to cardiac stepdown but within 2 hours she became more unresponsive and hypotensive so I moved her to the ICU after I assessed her at 0930 started IVF NS [address] Groves's orders were placed to cover for possible sepsis. Dr Garcia has been requested to place central line since it appears that she has septic shock currently. Cefepime and Vanc given for abx coverage and aggressive IVF initiated. Patient cannot provide any hx details to me. CT reveals possible ATX in RLL so this is likely due to PNA causing septic shock. Subjective/Events-last exam Patient is resting in bed and had just woken up at time of exam. She states her breathing is improved this am and denies SOB. Her only complaint this morning is L leg pain which she says is worsened from yesterday. She has a wound of the lateral left leg that has been present since May. Denies chest pain, n/v /abdominal pain. Currently on 2L nc. Loja catheter is in place with good output. Focused Exam Lactate Level 07/22/19 14:40: Lactic Acid Level 3.16*H 07/22/19 16:50: Lactic Acid Level 2.47*H 07/22/19 19:10: Lactic Acid Level 2.00 Objective Exam Vital Signs Vital Signs Date Time Temp Pulse Resp B/P (MAP) Pulse Ox O2 Delivery O2 Flow Rate FiO2 07/23/19 10:00 99 21 124/71 (88) 94 Nasal Cannula 2.00 07/23/19 07:01 37.6 07/23/19 00:00 35 Capillary Refill : Less Than 3 Seconds General Appearance: No Apparent Distress, WD/WN HEENT: No Pale Conjunctivae (L), No Pale Conjunctivae (R), No Scleral Icterus (L), No Scleral Icterus (R) Respiratory: Chest Non Tender, Lungs Clear, No Accessory Muscle Use, No Respiratory Distress Cardiovascular: Regular Rate, Rhythm, No Edema, No Murmur, Normal Peripheral Pulses Gastrointestinal: Normal Bowel Sounds, Non Tender, Soft; No Distended, No Guarding Extremity: Normal Capillary Refill, No Pedal Edema, Other (wound lateral left leg) Skin: Normal Color, Warm/Dry Results/Procedures Lab Laboratory Tests 07/23/19 03:30 Patient resulted labs reviewed. Assessment/Plan Assessment and Plan Assess & Plan/Chief Complaint Severe sepsis -lactic acidosis resolved -procalcitonin elevated -leukocytosis - WBC 19.2 -RLL atelectasis on CT, no pleural effusion -SpO2 93-95% on 2L NC -cultures pending -influenza A & B negative -on cefipime and vancomycin Chest pain -cardiology consulted -elevated D-dimer, CT negative for PE -doppler US study - no evidence of DVT bilaterally -troponins mildy elevated -echo pending HTN - hold home meds GERD IBS Degenerative disc disease Chronic wound L leg Anxiety Depression Hx of STI's (HPV, gonorrhea) Hx of ovarian cysts Tobacco use Clinical Quality Measures AMI/AHF: ASA po Prior to arrival: Yes (324 MG PER EMS) DVT/VTE Risk/Contraindication: Risk Factor Score Per Nursin RFS Level Per Nursing on Admit: 4+=Very High BRIDGETTE FLORES DO 07/23/19 1512: Subjective Subjective/Events-last exam Ultrasound of the lower extremity will be performed today Echocardiogram order BP now 109/69 She is not intubated still a bit groggy Left leg still hurts a lot Procalcitonin down to 30 from 59 White count went from 2.2 to 19,000 Broad spectrum antibiotics maintained Review of Systems General: Fatigue Pulmonary: Dyspnea Cardiovascular: Chest Pain Musculoskeletal: leg pain Objective Exam General Appearance: No Apparent Distress, WD/WN, Chronically ill, Obese Respiratory: Chest Non Tender, Lungs Clear, Normal Breath Sounds, No Accessory Muscle Use, No Respiratory Distress Cardiovascular: Regular Rate, Rhythm, No Edema, No Gallop, No JVD, No Murmur, Normal Peripheral Pulses Neurologic/Psychiatric: Alert, Oriented x3, No Motor/Sensory Deficits, Normal Mood/Affect Supervisory-Addendum Brief Verification & Attestation Participated in pt care: history, MDM, physical Personally performed: exam, history, MDM, supervision of care Care discussed with: Medical Student Procedures: n/a Results interpretation: Verified all documentation Verification and Attestation of Medical Student E/M Service A medical student performed and documented this service in my presence. I reviewed and verified all information documented by the medical student and made modifications to such information, when appropriate. I personally performed the physical exam and medical decision making. Bridgette Flores, Jul 23, 2019,20:04 CHRISTEL PRESTON,MED STUDENT Jul 23, 2019 11:25 BRIDGETTE FLORES DO Jul 23, 2019 15:12
[2019-07-23] MEDS ORDERED: HYDROcodone/APAP 5 MG/325 MG (LORTAB) TAB PO PRN (11:45)
--- NOTE | 2019-07-23 14:34 | Progress Note - Surgery ---
[facility] 07/23/19 1434: Subjective Date Seen by a Provider: Jul 23, 2019 Time Seen by a Provider: 14:20 Subjective/Events-last exam Patient was seen and denies any abdominal pain. She is clear from a surgical stand point and does not need to follow up. Patient was expressing desire to leave AMA to take care of her dog. Focused Exam Lactate Level 07/22/19 14:40: Lactic Acid Level 3.16*H 07/22/19 16:50: Lactic Acid Level 2.47*H 07/22/19 19:10: Lactic Acid Level 2.00 Objective Exam Vital Signs Date Time Temp Pulse Resp B/P (MAP) Pulse Ox O2 Delivery O2 Flow Rate FiO2 07/23/19 13:00 96 07/23/19 12:00 Nasal Cannula 2.00 07/23/19 12:00 95 12 120/68 (85) 93 Nasal Cannula 2.00 07/23/19 12:00 94 Nasal Cannula 2.00 07/23/19 11:49 100 Nasal Cannula 2.00 07/23/19 11:12 37.1 07/23/19 11:00 97 25 121/72 (88) 94 Nasal Cannula 2.00 07/23/19 10:00 99 21 124/71 (88) 94 Nasal Cannula 2.00 07/23/19 09:00 100 25 123/70 (87) 100 Nasal Cannula 2.00 07/23/19 08:00 Nasal Cannula 2.00 07/23/19 08:00 100 21 122/61 (81) 93 Nasal Cannula 2.00 07/23/19 08:00 94 Nasal Cannula 2.00 07/23/19 07:01 37.6 07/23/19 07:01 37.6 07/23/19 07:00 96 07/23/19 07:00 96 23 125/68 (87) 94 Nasal Cannula 2.00 07/23/19 06:43 95 Room Air 07/23/19 06:00 93 20 109/61 (77) 93 Nasal Cannula 2.00 07/23/19 05:00 94 21 106/59 (75) 94 Nasal Cannula 2.00 07/23/19 04:00 37.6 07/23/19 04:00 94 Nasal Cannula 2.00 07/23/19 04:00 88 26 94/62 (73) 94 Nasal Cannula 2.00 07/23/19 04:00 94 Nasal Cannula 2.00 07/23/19 03:53 95 Room Air 07/23/19 03:00 90 19 112/60 (77) 96 Nasal Cannula 2.00 07/23/19 02:00 94 26 96/57 (70) 95 Nasal Cannula 2.00 07/23/19 01:00 94 07/23/19 01:00 94 23 102/66 (78) 93 Nasal Cannula 2.00 07/23/19 00:40 90 26 94 Nasal Cannula 2.00 07/23/19 00:15 92 21 97 Room Air 07/23/19 00:00 98 NIV Bilevel 35 07/23/19 00:00 37.3 07/23/19 00:00 98 NIV Bilevel 35 07/23/19 00:00 92 10 107/59 (75) 100 NIV Bilevel 15.00 25.00 07/22/19 23:15 87 15 96/54 (68) 97 NIV Bilevel 15.00 25.00 07/22/19 22:00 88 14 100/50 (67) 96 NIV Bilevel 15.00 25.00 07/22/19 21:41 87 29 97 NIV Bilevel 15.00 25.00 07/22/19 21:39 87 20 98 25.00 07/22/19 21:09 86 24 98/49 (65) 98 NIV Bilevel 15.00 30.00 07/22/19 20:00 36.4 07/22/19 20:00 84 15 102/64 (77) 98 NIV Bilevel 15.00 30.00 07/22/19 20:00 NIV Bilevel 35 07/22/19 20:00 NIV Bilevel 35 07/22/19 19:12 85 16 97 NIV Bilevel 15.00 30.00 07/22/19 19:00 85 12 108/77 (87) 98 NIV Bilevel 15.00 35.00 07/22/19 19:00 85 07/22/19 18:55 84 18 99 30.00 07/22/19 18:00 87 15 111/56 (74) 98 NIV Bilevel 15.00 35.00 07/22/19 17:00 92 14 106/65 (79) 98 NIV Bilevel 15.00 35.00 07/22/19 16:00 Nasal Cannula 07/22/19 16:00 96 16 115/83 (94) 97 NIV Bilevel 15.00 35.00 07/22/19 16:00 37.0 07/22/19 16:00 Room Air 07/22/19 15:53 96 16 98 35.00 07/22/19 15:45 98 10 115/83 (94) 99 Vapotherm 40.00 50.00 07/22/19 15:30 99 14 117/70 (86) 99 Vapotherm 40.00 50.00 07/22/19 15:16 99 Vapotherm 40.00 50 07/22/19 15:15 93 12 108/66 (80) 99 Vapotherm 40.00 50.00 07/22/19 15:00 97 13 114/73 (87) 96 Nasal Cannula 3.00 07/22/19 14:45 96 13 108/70 (83) 96 Nasal Cannula 3.00 I & O 07/23/19 07:00 Intake Total 1270 ml Output Total 4600 ml Balance -3330 ml Capillary Refill : Less Than 3 Seconds General Appearance: No Apparent Distress, WD/WN HEENT: Moist Mucous Membranes; No Pale Conjunctivae (L), No Pale Conjunctivae (R), No Scleral Icterus (L), No Scleral Icterus (R) Neurologic/Psychiatric: Alert, Oriented x3, No Motor/Sensory Deficits, Normal Mood/Affect, shampooer II-XII Norm as Tested Skin: Normal Color, Warm/Dry Results Lab Laboratory Tests 07/22/19 14:40: Lactic Acid Level 3.16*H 07/22/19 16:20: Troponin I 0.107H 07/22/19 16:50: Lactic Acid Level 2.47*H 07/22/19 17:35: Glucometer 120H 07/22/19 17:50: Blood Gas Puncture Site RT WRIST, Blood Gas Patient Temperature 36.7, Arterial Blood pH 7.32*L, Arterial Blood Partial Pressure CO2 45, Arterial Blood Partial Pressure O2 118H, Arterial Blood HCO3 23, Arterial Blood Total CO2 23.9, Arterial Blood Oxygen Saturation 99, Arterial Blood Base Excess -2.7L, Wily Test POS, Blood Gas Ventilator Setting NO, Blood Gas Inspired Oxygen 35% 07/22/19 19:10: Lactic Acid Level 2.00 07/22/19 23:28: Glucometer 97 07/23/19 03:30: White Blood Count 19.2H, Red Blood Count 4.05L, Hemoglobin 9.0#L, Hematocrit 31L , Mean Corpuscular Volume 76L, Mean Corpuscular Hemoglobin 22L, Mean Corpuscular Hemoglobin Concent 29L, Red Cell Distribution Width 18.6H, Platelet Count 140, Mean Platelet Volume 10.6H, Neutrophils (%) (Auto) 74, Lymphocytes (%) (Auto) 14, Monocytes (%) (Auto) 11, Eosinophils (%) (Auto) 1, Basophils (%) (Auto) 0, Neutrophils # (Auto) 14.2H, Lymphocytes # (Auto) 2.7, Monocytes # (Auto) 2.1H, Eosinophils # (Auto) 0.1, Basophils # (Auto) 0.1, Neutrophils % (Manual) 75, Lymphocytes % (Manual) 14, Monocytes % (Manual) 3, Eosinophils % (Manual) 1, Band Neutrophils 7, Hypochromasia MODERATE, Sodium Level 139, Potassium Level 4.7, Chloride Level 108H, Carbon Dioxide Level 22, Anion Gap 9, Blood Urea Nitrogen 17, Creatinine 0.96, Estimat Glomerular Filtration Rate > 60, BUN/Creatinine Ratio 18, Glucose Level 76, Calcium Level 8.5, Phosphorus Level 3.3, Magnesium Level 1.7, Triglycerides Level 92, Cholesterol Level 99, LDL Cholesterol Direct 54, VLDL Cholesterol 18, HDL Cholesterol 25L, Procalcitonin 34.38H Microbiology 07/23/19 Influenza Types A,B Antigen (ELLA) - Final, Complete Assessment/Plan Assessment/Plan Assessment/Plan Lactic Acid back down to baseline. No further evaluation from surgery. Discharge will be up to patient and medicine. Clinical Quality Measures AMI/AHF: ASA po Prior to arrival: Yes (324 MG PER EMS) DVT/VTE Risk/Contraindication: Risk Factor Score Per Nursin RFS Level Per Nursing on Admit: 4+=Very High NICK ALAN DO 07/23/19 1441: Subjective Time Seen by a Provider: 14:20 Subjective/Events-last exam Pt seen and examined, denies abdominal pain. Wants to go home. Review of Systems Pulmonary: No Dyspnea, No Cough Cardiovascular: Chest Pain Gastrointestinal: No: Nausea, Vomiting, Abdominal Pain Objective Exam General Appearance: No Apparent Distress, WD/WN HEENT: Moist Mucous Membranes Respiratory: Chest Non Tender, Lungs Clear, Normal Breath Sounds, No Accessory Muscle Use, No Respiratory Distress Cardiovascular: Regular Rate, Rhythm, No Murmur Gastrointestinal: non tender, soft, no organomegaly Assessment/Plan Assessment/Plan Assessment/Plan Hypotension, N/V, Abd pain Nothing surgical to do, central line site looks good. D/C per Hospitalist. Supervisory-Addendum Brief Verification & Attestation Participated in pt care: history, MDM, physical Personally performed: exam, history, MDM Care discussed with: Medical Student Procedures: n/a Verification and Attestation of Medical Student E/M Service A medical student performed and documented this service. I then reviewed and verified all information documented by the medical student and made modifications to such information, when appropriate. I personally performed a physical exam, medical decision making and then discussed any differences between the notes and made revisions as necessary to create one note. Nick Alan , 07/23/19 , 14:41 [facility] Jul 23, 2019 14:34 NICK ALAN DO Jul 23, 2019 14:41
--- NOTE | 2019-07-23 15:00 | NUR ---
Pt left AMA. This RN educated pt on risks of leaving, pt insisted that she had to go home and take care of her dog.
[2019-07-23] MEDS ORDERED: TROUGH ORDER-PHARMACY XX NR (17:00)
--- NOTE | 2019-07-23 20:08 | Discharge Summary ---
Discharge Summary Hospital Course Was the Problem List Reviewed?: Yes Problems/Dx: (1) Septic shock (2) Hypotension (3) Pneumonia of right lower lobe due to infectious organism (4) Leg wound, left (5) Lactic acid acidosis (6) Elevated procalcitonin (7) GERD (gastroesophageal reflux disease) (8) Neuropathy (9) Hypertension (10) Anxiety Status: Chronic (11) Nausea, vomiting, and diarrhea Status: Acute (12) Hx MRSA infection Status: Acute (13) Neutropenic sepsis Hospital Course Date of Admission: Jul 22, 2019 at 09:53 Admission Diagnosis : Family Physician/Provider: [facility] Date of Discharge: 07/23/19 Discharge Diagnosis: septic shock, left leg chronic wound, left AMA Hospital Course: Patient was admitted for chest pain and quickly changed to septic shock requiring transfer to ICU with aggressive IVF and IV abx administration. Dr Groves and Dr Garcia consulted and patient was managed in ICU with broad spectrum abx and pain meds. Patient left AMA abruptly without warning before definitive treatment completed. Labs and Pending Lab Test: Laboratory Tests 07/22/19 23:28: Glucometer 97 07/23/19 03:30: White Blood Count 19.2H, Red Blood Count 4.05L, Hemoglobin 9.0#L, Hematocrit 31L , Mean Corpuscular Volume 76L, Mean Corpuscular Hemoglobin 22L, Mean Corpuscular Hemoglobin Concent 29L, Red Cell Distribution Width 18.6H, Platelet Count 140, Mean Platelet Volume 10.6H, Neutrophils (%) (Auto) 74, Lymphocytes (%) (Auto) 14, Monocytes (%) (Auto) 11, Eosinophils (%) (Auto) 1, Basophils (%) (Auto) 0, Neutrophils # (Auto) 14.2H, Lymphocytes # (Auto) 2.7, Monocytes # (Auto) 2.1H, Eosinophils # (Auto) 0.1, Basophils # (Auto) 0.1, Neutrophils % (Manual) 75, Lymphocytes % (Manual) 14, Monocytes % (Manual) 3, Eosinophils % (Manual) 1, Band Neutrophils 7, Hypochromasia MODERATE, Sodium Level 139, Potassium Level 4.7, Chloride Level 108H, Carbon Dioxide Level 22, Anion Gap 9, Blood Urea Nitrogen 17, Creatinine 0.96, Estimat Glomerular Filtration Rate > 60, BUN/Creatinine Ratio 18, Glucose Level 76, Calcium Level 8.5, Phosphorus Level 3.3, Magnesium Level 1.7, Triglycerides Level 92, Cholesterol Level 99, LDL Cholesterol Direct 54, VLDL Cholesterol 18, HDL Cholesterol 25L, Procalcitonin 34.38H Microbiology 07/23/19 Influenza Types A,B Antigen (ELLA) - Final, Complete 07/22/19 Blood Culture - Preliminary, Resulted No growth Home Meds Active Clindamycin HCl 300 Mg Capsule 600 Mg PO TID 10 Days Hydrocodone/Acetaminophen 5/325mg Tablet (Acetaminophen/Hydrocodone Bitart) 1 Tab Tab 1 Tab PO Q4-6HR MDD 10 Reported Acid Electronics Production Supervisor (FAMOTIDINE) (Famotidine) 20 Mg Tablet 20 Mg PO DAILY PRN Benadryl (Diphenhydramine HCl) 25 Mg Capsule 25 Mg PO Q8H PRN Paroxetine HCl 40 Mg Tablet 40 Mg PO DAILY LAST FILLED #30 04-11-19 Oxybutynin Chloride 5 Mg Tablet 5 Mg PO BID Trazodone HCl 100 Mg Tablet 200 Mg PO HS LAST FILLED #60 04-11-19 TAKES 2 (100MG) TABLETS Clonidine HCl 0.1 Mg Tablet 0.1 Mg PO TID Gabapentin 800 Mg Tablet 800 Mg PO TID Buspirone HCl 15 Mg Tablet 15 Mg PO BID Cyclobenzaprine HCl 10 Mg Tablet 10 Mg PO TID PRN Hydroxyzine Pamoate 25 Mg Capsule 25 Mg PO TID PRN Assessment/Pt Instructions Left AMA Discharge Planning: <30 minutes discharge planning Discharge Physical Examination Vital Signs Vital Signs Date Time Temp Pulse Resp B/P (MAP) Pulse Ox O2 Delivery O2 Flow Rate FiO2 07/23/19 14:00 92 19 105/69 (81) 90 Nasal Cannula 2.00 07/23/19 11:12 37.1 07/23/19 00:00 35 General Appearance: No Apparent Distress, WD/WN Allergies: Coded Allergies: Penicillins (Unverified Allergy, Mild, Has had Ancef w/o issue, 07/22/19) dimenhydrinate (Verified Allergy, Mild, 07/22/19) prochlorperazine (Unverified Allergy, Mild, 07/22/19) Uncoded Allergies: ANTI-EMETICS (Allergy, Mild, 03/26/08) ANTI-NAUSEA MEDICATIONS EXCEPT DRAMAMINE (Allergy, Mild, MAKE HER HAVE ANXIETY ATTACKS, 08/29/08) ANTIEMETICS (Allergy, Mild, 12/09/08) NAUSEA MEDS (Allergy, Mild, 12/01/08) Discharge Summary Date of Admission Jul 22, 2019 at 09:53 Date of Discharge Jul 23, 2019 at 15:00 Admission Diagnosis Assessment: Septic shock presumed from RLL PNA on CT scan Elevated lactic acid and procalcitonin due to sepsis bacterial in origin covered empirically Obesity Mental illness OAB Neutropenia Plan: ICU transfer IVF aggressive treatment Central line Pressor therapy if needed Abx Discharge Diagnosis (1) Septic shock (2) Hypotension (3) Pneumonia of right lower lobe due to infectious organism (4) Leg wound, left (5) Lactic acid acidosis (6) Elevated procalcitonin (7) GERD (gastroesophageal reflux disease) (8) Neuropathy (9) Hypertension (10) Anxiety Status: Chronic (11) Nausea, vomiting, and diarrhea Status: Acute (12) Hx MRSA infection Status: Acute (13) Neutropenic sepsis Clinical Quality Measures AMI/AHF: ASA po Prior to arrival: Yes (324 MG PER EMS) DVT/VTE Risk/Contraindication: Risk Factor Score Per Nursin RFS Level Per Nursing on Admit: 4+=Very High LEWIS FLORES DO Jul 23, 2019 20:08
--- OUTSIDE RECORDS SUMMARY | 2019-07-25 06:09 | XMS REPORT ---
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 information no name (no phone) no organization name (no phone) 06-22-2017 Patient encounter no information no name (no phone) no organization name (no phone) 06-15-2017 Patient encounter no information no name (no phone) no organization name (no phone) 05-15-2017 Patient encounter no information SHAHNAZ ARAIZA MD (no [facility] phone) [facility] (no phone) [facility] Patient encounter no information no name (no phone) no organization name 02-14-2017 (no phone) - 05-14-2017 02-13-2017 Patient encounter no information no name (no phone) no organization name (no phone) [facility] Patient encounter no information no name (no phone) no organization name 02-11-2017 (no phone) - 02-12-2017 02-10-2017 Patient encounter no information no name (no phone) no organization name (no phone) 02-09-2017 Patient encounter no information no name (no phone) no organization name (no phone) 02-09-2017 Patient encounter no information no name (no phone) no organization name (no phone) NEGATED Patient encounter no information no name (no phone) no organization name 02-08-2017 (no phone) 07-23-2016 Patient encounter no information no name (no phone) no organization name - (no phone) 07-30-2016 07-12-2016 Patient encounter no information no name (no phone) no organization name - (no phone) 07-13-2016 12-10-2014 Patient encounter no information no name (no phone) no organization name - (no phone) 12-10-2014 07-12-2014 Patient encounter no information no name (no phone) no organization name - (no phone) 07-12-2014 06-24-2014 Patient encounter no information no name (no phone) no organization name - (no phone) 06-25-2014 07-03-2013 Patient encounter no information no name (no phone) no organization name - (no phone) 07-25-2013 06-18-2013 Patient encounter no information no name (no phone) no organization name (no phone) 11-06-2012 Patient encounter no information no name (no phone) no organization name - (no phone) 11-06-2012 11-01-2012 Patient encounter no information no name (no phone) no organization name (no phone) 08-30-2012 Patient encounter no information no name (no phone) no organization name (no phone) 06-19-2019 Patient encounter no information ONESIMO MOHAN DO (no [facility] - procedure phone) [facility] 06-19-2019 (no phone) 06-18-2019 Patient encounter no information ONESIMO MOHAN DO (no [facility] - procedure phone) [facility] 06-18-2019 (no phone) 05-30-2019 Patient encounter no information ONESIMO MOHAN DO (no [facility] procedure phone) [facility] (no phone) 05-22-2019 Patient encounter no information SHAHNAZ ARAIZA MD (no [facility] - procedure phone) [facility] 05-24-2019 (no phone) 05-18-2019 Patient encounter no information no name (no phone) no organization name procedure (no phone) 02-16-2019 Patient encounter no information no name (no phone) no organization name procedure (no phone) 02-15-2019 Patient encounter no information no name (no phone) no organization name procedure (no phone) 12-29-2018 Patient encounter no information no name (no phone) no organization name procedure (no phone) 12-07-2018 Patient encounter no information no name (no phone) no organization name procedure (no phone) 12-07-2018 Patient encounter no information no name (no phone) no organization name procedure (no phone) 11-08-2018 Patient encounter no information no name (no phone) no organization name procedure (no phone) 10-04-2018 Patient encounter no information no name (no phone) no organization name procedure (no phone) 10-04-2018 Patient encounter no information no name (no phone) no organization name procedure (no phone) 07-19-2018 Patient encounter no information no name (no phone) no organization name procedure (no phone) 07-07-2018 Patient encounter no information no name (no phone) no organization name procedure (no phone) 05-10-2018 Patient encounter no information no name (no phone) no organization name procedure (no phone) 05-08-2018 Patient encounter no information no name (no phone) no organization name procedure (no phone) 02-14-2017 Patient encounter no information SHAHNAZ ARAIZA MD (no [facility] - procedure phone) [facility] 05-13-2017 (no phone) 02-11-2017 Patient encounter no information SHAHNAZ ARAIZA MD (no [facility] - procedure phone) [facility] 02-11-2017 (no phone) 02-05-2017 Patient encounter no information no name (no phone) no organization name procedure (no phone) 02-05-2017 Patient encounter no information no name (no phone) no organization name procedure (no phone) 01-24-2017 Patient encounter no information no name (no phone) no organization name - procedure (no phone) 01-25-2017 12-09-2016 Patient encounter no information no name (no phone) no organization name - procedure (no phone) 12-12-2016 11-25-2016 Patient encounter no information no name (no phone) no organization name - procedure (no phone) 11-25-2016 07-23-2016 Patient encounter no information no name (no phone) no organization name - procedure (no phone) 07-26-2016 07-23-2016 Patient encounter no information PAPITO JACOBS MD (no [facility] - procedure phone) [facility] 07-30-2016 (no phone) 07-21-2016 Patient encounter no information no name (no phone) no organization name procedure (no phone) 07-17-2016 Patient encounter no information no name (no phone) no organization name procedure (no phone) 07-12-2016 Patient encounter no information no name (no phone) no organization name procedure (no phone) 07-12-2016 Patient encounter no information MAGALYS HEBERT DO (no [facility] - procedure phone) [facility] 07-13-2016 (no phone) 07-07-2016 Patient encounter no information no name (no phone) no organization name procedure (no phone) 07-02-2016 Patient encounter no information no name (no phone) no organization name procedure (no phone) 06-21-2016 Patient encounter no information no name (no phone) no organization name procedure (no phone) 06-11-2016 Patient encounter no information no name (no phone) no organization name procedure (no phone) 06-08-2016 Patient encounter no information no name (no phone) no organization name - procedure (no phone) 06-08-2016 06-08-2016 Patient encounter no information no name (no phone) no organization name - procedure (no phone) 06-08-2016 05-24-2016 Patient encounter no information no name (no phone) no organization name procedure (no phone) 12-10-2014 Patient encounter no information PAPITO JACOBS MD (no [facility] - procedure phone) [facility] 12-10-2014 (no phone) 07-12-2014 Patient encounter no information PAPITO JACOBS MD (no [facility] - procedure phone) [facility] 07-12-2014 (no phone) 06-24-2014 Patient encounter no information PAPITO JACOBS MD (no [facility] - procedure phone) [facility] 06-25-2014 (no phone) Patient encounter no information no name (no phone) no organ ization name procedure (no phone) 06-24-2019 no information Encounter for other no name (no phon e) no organization name preprocedural (no phone) examination 12-06-2013 VISIT no information no name (no phone) n o organization name (no phone) 11-13-2013 VISIT no information no name (no phone) n o organization name (no phone) no information Pre-operative no name (no phone) no organiza tion name examination, (no phone) unspecified Medical Equipment No Information Payers Normalized Payer Value Private Health Insurance no information History general Narrative - Reported Note Type Note Facility History general Narrative - Reported Type Medical hypertension History Medical Headache syndrome History Medical Depression History Medical borderline personality diso rder History Medical gastroesophageal reflux dis ease (GERD) History Medical Anxiety disorder History Medical polyneuropathy left leg History Medical allergic rhinitis History Medical PTSD with Major Depression History Medical degenerative disease lumbos acral spine History Medical herniated disc & buldging d isc(s) History Medical osteoarthritis History Medical heart attack History Medical asthma History Medical enlarged heart History Medical Cataract of both eyes, unsp ecified cataract type History Surgical right lung scraping empyema -lateral as pect 1995 History Surgical appendectomy 1995 History Surgical EGD by Dr Parker, hiatal hernia and du odentitis 11/06/2012 History Surgical hysterectomy 03/2008 History Surgical oopherectomy/salpingectomy 1991 History Surgical Seizures possibly related to overdose/m istaking medications 2016 History Surgical right hand debridment 07/16/2016 History Surgical Right arm cellulitus 11/2016 History Hospitaliz staph infection 08/2014 ation History Hospitaliz Rt hand post op infection-[facility] 07/25/16 ation History Hospitaliz cellulitus Right elbow-[facility] 12/09/16 ation History [facility] ([id number]) Summary Purpose eClinicalWorks SubmissioneClinicalWorks SubmissioneClinicalWorks SubmissioneClinicalWorks SubmissioneClinicalWorks SubmissioneClinicalWorks SubmissioneClinicalWorks SubmissioneClinicalWorks SubmissioneClinicalWorks SubmissioneClinicalWorks SubmissioneClinicalWorks SubmissioneClinicalWorks SubmissioneClinicalWorks SubmissioneClinicalWorks SubmissioneClinicalWorks SubmissioneClinicalWorks SubmissioneClinicalWorks SubmissioneClinicalWorks SubmissioneClinicalWorks SubmissioneClinicalWorks SubmissioneClinicalWorks SubmissioneClinicalWorks SubmissioneClinicalWorks SubmissioneClinicalWorks SubmissioneClinicalWorks SubmissioneClinicalWorks SubmissioneClinicalWorks SubmissioneClinicalWorks Submission Advance Directives Directive Response Recor ded Date/Time Advance Directives No 6:09pm Health Care Power of Puddler Helper No 02/02/16 6:53pm Organ Donor No 02/02/16 6:53pm Resuscitation Status Full Code 02/12/16 6:09pm Directive Response Recor ded Date/Time Advance Directives No 2:28am Health Care Power of Puddler Helper No 06/08/16 2:28am Organ Donor No 06/08/16 2:28am Resuscitation Status Full Code 06/08/16 2:28am Directive Response Recor ded Date/Time Advance Directives No 6:56pm Health Care Power of Puddler Helper No 06/11/16 6:56pm Organ Donor No 06/11/16 6:56pm Resuscitation Status Full Code 06/11/16 6:56pm Directive Response Recor ded Date/Time Advance Directives No 5:51pm Health Care Power of Puddler Helper No 06/21/16 5:51pm Organ Donor No 06/21/16 5:51pm Resuscitation Status Full Code 06/21/16 5:51pm Directive Response Recor ded Date/Time Advance Directives No 3:35pm Health Care Power of Puddler Helper No 07/07/16 3:35pm Organ Donor No 07/07/16 3:35pm Resuscitation Status Full Code 07/07/16 3:35pm Directive Response Recor ded Date/Time Advance Directives No 1:23pm Health Care Power of Puddler Helper No 07/12/16 1:23pm Organ Donor Yes 07/12/16 1:23pm Resuscitation Status Full Code 07/12/16 1:23pm Directive Response Recor ded Date/Time Advance Directives No 5:34pm Health Care Power of Puddler Helper No 06/15/15 5:34pm Organ Donor No 06/15/15 5:34pm Resuscitation Status Full Code 06/15/15 5:34pm Directive Response Recor ded Date/Time Advance Directives No 3:57pm Health Care Power of Puddler Helper No 09/17/15 5:35pm Organ Donor No 09/17/15 5:35pm Directive Response Recor ded Date/Time Advance Directives No 8:28pm Health Care Power of Puddler Helper No 08/01/15 8:28pm Organ Donor No 08/01/15 8:28pm Resuscitation Status Full Code 08/01/15 8:28pm Directive Response Recor ded Date/Time Advance Directives No 5:35pm Health Care Power of Puddler Helper No 09/17/15 5:35pm Organ Donor No 09/17/15 5:35pm Resuscitation Status Full Code 09/17/15 5:35pm Directive Response Recor ded Date/Time Advance Directives No 7:22pm Health Care Power of Puddler Helper No 10/30/14 7:22pm Organ Donor No 10/30/14 7:22pm Directive Response Recor ded Date/Time Advance Directives No 12:30am Health Care Power of Puddler Helper No 09/07/14 12:30am Organ Donor No 09/07/14 12:30am Resuscitation Status Full Code 09/07/14 12:30am Directive Response Recor ded Date/Time Advance Directives No 9:13pm Health Care Power of Puddler Helper No 04/29/14 9:13pm Organ Donor No 04/29/14 9:13pm Resuscitation Status Full Code 04/29/14 9:13pm Directive Response Recor ded Date/Time Advance Directives No 6:13pm Health Care Power of Puddler Helper No 10/12/14 6:13pm Organ Donor No 10/12/14 6:13pm Resuscitation Status Full Code 10/12/14 6:13pm Directive Response Recor ded Date Advance Directives N 6:05pm Health Care Power of Puddler Helper N 12/03/12 6:05pm Organ Donor N 12/03/12 6 :05pm Directive Response Recor ded Date/Time Advance Directives No 10:53am Health Care Power of Puddler Helper No 06/14/14 10:53am Organ Donor No 06/14/14 10:53am Directive Response Recor ded Date/Time Advance Directives No 10:53am Health Care Power of Puddler Helper No 06/14/14 10:53am Organ Donor No 06/14/14 10:53am Resuscitation Status Full Code 06/14/14 10:53am Directive Response Recor ded Date/Time Advance Directives No 7:22pm Health Care Power of Puddler Helper No 10/30/14 7:22pm Organ Donor No 10/30/14 7:22pm Resuscitation Status Full Code 10/30/14 7:22pm Directive Response Recor ded Date/Time Advance Directives No 8:30pm Health Care Power of Puddler Helper No 02/25/15 8:30pm Organ Donor No 02/25/15 8:30pm Resuscitation Status Full Code 02/25/15 8:30pm Directive Response Recor ded Date Advance Directives N 04/27 1:57am Health Care Power of Puddler Helper N 10/25/12 1:57am Organ Donor N 10/25/12 1 :57am Directive Response Recor ded Date/Time Advance Directives No 5:31pm Health Care Power of Puddler Helper No 12/20/14 5:31pm Organ Donor No 12/20/14 5:31pm Resuscitation Status Full Code 12/20/14 5:31pm Directive Response Recor ded Date/Time Advance Directives No 9:01pm Health Care Power of Puddler Helper No 02/14/15 9:01pm Organ Donor No 02/14/15 9:01pm Resuscitation Status Full Code 02/14/15 9:01pm Directive Response Recor ded Date/Time Advance Directives No 8:35am Health Care Power of Puddler Helper No 04/14/14 8:35am Organ Donor No 04/14/14 8:35am Resuscitation Status Full Code 04/14/14 8:35am Directive Response Recor ded Date Advance Directives N 7:07pm Health Care Power of Puddler Helper N 11/01/12 11:50am Organ Donor N 11/01/12 1 1:50am Directive Response Recor ded Date/Time Advance Directives No 7:23pm Health Care Power of Puddler Helper No 02/14/14 7:23pm Organ Donor No 02/14/14 7:23pm Resuscitation Status Full Code 02/14/14 7:23pm Directive Response Recor ded Date/Time Advance Directives No 3:26pm Health Care Power of Puddler Helper No 04/14/14 8:35am Organ Donor No 04/14/14 8:35am Resuscitation Status Full Code 04/24/14 3:26pm Directive Response Recor ded Date/Time Advance Directives No 6:17pm Health Care Power of Puddler Helper No 12/11/13 6:17pm Organ Donor No 12/11/13 6:17pm Resuscitation Status Full Code 12/11/13 6:17pm Directive Response Recor ded Date Advance Directives N 10:16am Health Care Power of Puddler Helper N 11/06/12 10:16am Organ Donor N 11/06/12 1 0:16am Directive Response Recor ded Date/Time Advance Directives No 5:30pm Health Care Power of Puddler Helper No 08/26/14 5:30pm Organ Donor No 08/26/14 5:30pm Resuscitation Status Full Code 08/26/14 5:30pm Directive Response Recor ded Date/Time Advance Directives No 11:00pm Health Care Power of Puddler Helper No 12/06/16 11:00pm Organ Donor Yes 12/06/16 11:00pm Resuscitation Status Full Code 12/06/16 11:00pm Directive Response Recor ded Date/Time Advance Directives No 11:00pm Health Care Power of Puddler Helper No 01/24/17 11:00pm Organ Donor Yes 01/24/17 11:00pm Resuscitation Status Full Code 01/24/17 11:00pm Directive Response Recor ded Date/Time Advance Directives No 11:00pm Health Care Power of Puddler Helper No 01/24/17 11:00pm Organ Donor Yes 01/24/17 11:00pm Directive Response Recor ded Date/Time Advance Directives No 4:06pm Health Care Power of Puddler Helper No 02/05/17 4:06pm Organ Donor No 02/05/17 4:06pm Directive Response Recor ded Date/Time Advance Directives No 6:25pm Health Care Power of Puddler Helper No 07/23/17 6:25pm Organ Donor No 07/23/17 6:25pm Resuscitation Status Full Code 07/23/17 6:25pm Directive Response Recor ded Date/Time Advance Directives No 5:37pm Health Care Power of Puddler Helper No 06/20/17 5:37pm Organ Donor No 06/20/17 5:37pm Resuscitation Status Full Code 06/20/17 5:37pm Directive Response Recor ded Date/Time Advance Directives No 9:55pm Health Care Power of Puddler Helper No 07/01/17 9:55pm Organ Donor No 07/01/17 9:55pm Resuscitation Status Full Code 07/01/17 9:55pm Directive Response Recor ded Date/Time Advance Directives No 4:22pm Health Care Power of Puddler Helper No 03/05/18 4:22pm Organ Donor No 03/05/18 4:22pm Resuscitation Status Full Code 03/05/18 4:22pm Directive Response Recor ded Date/Time Advance Directives No 4:22pm Health Care Power of Puddler Helper No 03/05/18 4:22pm Organ Donor No 03/05/18 4:22pm Directive Response Recor ded Date/Time Advance Directives No 7:30pm Health Care Power of Puddler Helper No 07/07/18 7:30pm Organ Donor No 07/07/18 7:30pm Resuscitation Status Full Code 07/07/18 7:30pm Directive Response Recor ded Date/Time Advance Directives No 2:25am Health Care Power of Puddler Helper No 12/29/18 2:25am Organ Donor No 12/29/18 2:25am Resuscitation Status Full Code 12/29/18 2:25am Discharge Instructions No hospital discharge instructions. Patient Instructions Physician Instructions New, Converted or Re-Newed RX: Other Goal/Follow Up Appt: DR JOHNSON JUN 09 AT [address] JUN 15 AT 0800 Patient Instructions: PLEASE REVIEW YOUR NEW MEDICATION LIST. YOUR SEIZURES WERE LIKELY CAUSED BY TAKING MEDICATIONS TOO MUCH OR AT THE WRONG TIMES. YOU NEED TO BUY A PILL KEEPER TO HELP KNOW WHEN TO TAKE YOUR MEDS. YOU WILL SEE DR JOHNSON TOMORROW, AND SHE WILL THEN HELP YOU GET TO YOUR REGULAR TELEPSYCH PROVIDER. Return to The Hospital For: INCREASED SEIZURES, LETHARGY Discharge Diet: Low Sodium Diet Activity as Tolerated: Yes Care Plan Patient Instructions:: PLEASE REVIEW YOUR NEW MEDICATION LIST. YOUR SEIZURES WERE LIKELY CAUSEDBY TAKING MEDICATIONS TOO MUCH OR AT THE WRONG TIMES. YOU NEED TO BUY APILL KEEPER TO HELP KNOW WHEN TO TAKE YOUR MEDS. YOU WILL SEE DR BAKER, AND SHE WILL THEN HELP YOU GET TO YOUR REGULAR TELEPSYCH PROVIDER. Goal:: DR JOHNSON JUN [address] AT [address] [place] [address] JUN 15 AT 0800 Patient Instructions Physician Instructions New, Converted or Re-Newed RX: Other Goal/Follow Up Appt: DR JOHNSON JUN 09 AT [address] JUN 15 AT 0800 Patient Instructions: PLEASE REVIEW YOUR NEW MEDICATION LIST. YOUR SEIZURES WERE LIKELY CAUSED BY TAKING MEDICATIONS TOO MUCH OR AT THE WRONG TIMES. YOU NEED TO BUY A PILL KEEPER TO HELP KNOW WHEN TO TAKE YOUR MEDS. YOU WILL SEE DR JOHNSON TOMORRCARLOS, AND SHE WILL THEN HELP YOU GET TO YOUR REGULAR TELEPSYCH PROVIDER. Return to The Hospital For: INCREASED SEIZURES, LETHARGY Discharge Diet: Low Sodium Diet Activity as Tolerated: Yes Care Plan Patient Instructions:: PLEASE REVIEW YOUR NEW MEDICATION LIST. YOUR SEIZURES WERE LIKELY CAUSEDBY TAKING MEDICATIONS TOO MUCH OR AT THE WRONG TIMES. YOU NEED TO BUY APILL KEEPER TO HELP KNOW WHEN TO TAKE YOUR MEDS. YOU WILL SEE DR BAKER, AND SHE WILL THEN HELP YOU GET TO YOUR REGULAR TELEPSYCH PROVIDER. [facility] No hospital discharge instructions.No hospital discharge instructions.No hospital discharge instructions. Patient Instructions Physician Instructions New, Converted or Re-Newed RX: Other (No new scripts) Goal/Follow Up Appt: [facility]ela will call you tomorrow with your appt Patient Instructions: Please monitor the wound Do not remove drain until you are seen in the surgeons office Return to The [facility] For: Fever or chills Severe increase in pain Increase in drainage Discharge Diet: Cardiac Diet Activity as Tolerated: Yes Care Plan Patient Instructions:: Please monitor the woundDo not remove drain until you are seen in the surgeons office Goal:: [facility] Marisela will call you tomorrow with your appt No hospital discharge instructions.No hospital discharge instructions.No hospital discharge instructions.No hospital discharge instructions.No hospital discharge instructions.No hospital discharge instructions.No hospital discharge instructions.No hospital discharge instructions.No hospital discharge instructions.No hospital discharge instructions.No hospital discharge instructions.No hospital discharge instructions.No hospital discharge instructions.No hospital discharge ins tructions.No hospital discharge instructions.No hospital discharge instructions. No hospital discharge instructions.No hospital discharge instructions.No hospita l discharge instructions.No hospital discharge instructions.No hospital discharg e instructions.No hospital discharge instruction information available.No hospit al discharge instruction information available.Current inpatient/outpatient. Dis charge instructions are currently unavailable.No hospital discharge instruction information available.No hospital discharge instruction information available.No hospital discharge instruction information available.No hospital discharge inst ruction information available.No hospital discharge instruction information avai lable.No hospital discharge instruction information available.No hospital discha rge instruction information available.No hospital discharge instruction informat ion available.No hospital discharge instruction information available. Chief Complaint and Reason for Visit Chief Complaint Lower Extremity Reason for Visit [id number] Chief Complaint Trauma-Non Activatio n Reason for Visit [id number] Hematoma and contusion Fall (on) (from) other stairs and steps, 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 Chief Complaint Lower Extremity Reason for Visit Contusion of knee Chief Complaint Laceration Reason for Visit Diphtheria-pertussi s-tetanus (DPT) vaccination administeredat current visit Laceration of right forearm Additional Source Comments This clinical document has been generated using [employer] software that has been certified by the Office of the National Coordinator for Health Information Technology (ONC 15.99.04.3023.Diam.[id number]) and the National Committee for [employer] Analyst (NCQA, as an eMeasure certified technology). FOR RECORDS PERTAINING TO PATIENTS WHO ARE OR HAVE BEEN ENROLLED IN A CHEMICAL D EPENDENCY/SUBSTANCE ABUSE PROGRAM, SOME INFORMATION MAY BE OMITTED. This clinica l summary was aggregated from multiple sources. Caution should be exercised in using it in the provision of clinical care. This summary normalizes information from multiple sources, and as a consequence, information in this document may ma terially change the coding, format and clinical context of patient data. In sarah tion, data may be omitted in some cases. CLINICAL DECISIONS SHOULD BE BASED ON T HE PRIMARY CLINICAL RECORDS. [employer] provides no warranty or guara ntee of the accuracy or completeness of information in this document.The followi information is based on time limited clinical information UNRECOGNIZED CONTENT PROVIDED BELOW FOR UNRECOGNIZED SECTION MEDICAL (GENERAL) HISTORY Type Description Date Medical History hypertension Medical History Headache syndrome Medical History Depression Medical History borderline personali ty disorder Medical History dysthymic disorder Medical History gastroesophageal ref lux disease (GERD) Medical History Anxiety disorder Medical History polyneuropathy left leg Medical History allergic rhinitis Medical History PTSD Medical History sciatica Medical History degenerative disease lumbosacral spine Medical History herniated disc & bul dging disc(s) Medical History osteoarthritis Medical History heart attack Medical History pneumonia Medical History asthma Medical History Major depressive dis order, recurrent episode, moderate Surgical History right lung scraping empyema -lateral aspect 1995 Surgical History appendectomy 1995 Surgical History EGD by Dr Parker, hiatal hernia and duodentitis 11/06/2012 Surgical History hysterectomy 03/2008 Surgical History oopherectomy/salpingectom y 1991 Surgical History Seizures possibly r elated to overdose/mistaking medications 2016 Surgical History right hand debridment 07/16/2016 Surgical History Right arm cellulitus 11/2016 Hospitalization History staph infection 08/2014 Hospitalization History Rt hand post op infection-[facility] 07/25/16 Hospitalization History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
--- OUTSIDE RECORDS SUMMARY | 2019-07-25 06:32 | XMS REPORT ---
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 [facility] [address] [id number] [place] [address] Mar, [facility] [place] [facility] [address] [id number] [place] [address] Mar, [facility] [place] [facility] [address] [id number] [place] [address] Feb, [facility] [place] [facility] [address] [id number] [place] [address] 16 Feb, 2014 [facility] [place] [facility] [address] [id number] [place] [address] 18 Jan, 2014 [facility] [place] [facility] [address] [id number] [place] [address] 18 Jan, 2014 [facility] [place] [facility] [address] [id number] [place] [address] 18 Jan, 2014 [facility] [place] [facility] [address] [id number] [place] [address] 18 Jan, 2014 [facility] [place] [facility] [address] [id number] [place] [address] 12 Jan, 2013 [facility] [place] [facility] [address] [id number] [place] [address] 12 Jan, 2013 [facility] [place] [facility] [address] [facility] [id number] [place] [id number] 09 Jan, 2013 [facility] [place] [facility] [address] [id number] [place] [address] 09 Jan, 2013 [facility] [place] [facility] [address] [id number] [place] [address] Jan, [facility] [place] [facility] [address] [id number] [place] [address] Jan, [facility] [place] [facility] [address] [facility] [id number] [place] [address] Dec, [facility] [place] [facility] [address] [facility] [id number] [place] [address] Dec, [facility] [place] [facility] [address] [id number] [place] [address] Dec, [facility] [place] [facility] [address] [id number] [place] [address] Dec, [facility] [place] [facility] [address] [id number] [place] [address] Dec, [facility] [place] [facility] [address] [id number] [place] [address] Dec, [facility] [place] [facility] [address] [id number] [place] [address] Dec, [facility] [place] [facility] [address] [facility] [id number] [place] [address] Dec, [facility] [place] [facility] [address] [facility] [id number] [place] [address] Dec, [facility] [place] [facility] [address] [facility] [id number] [place] [address] Nov, [facility] [place] [facility] [address] [id number] [place] [address] Nov, [facility] [place] [facility] [address] [facility] [id number] [place] [address] Nov, [facility] [place] [facility] [address] [id number] [place] [address] Nov, [facility] [place] [facility] [address] [facility] [id number] [place] [address] Nov, [facility] [place] [facility] [address] [id number] [place] [address] Nov, [facility] [place] [facility] [address] [id number] [place] [address] Nov, 2013 [facility] [place] [facility] [address] [id number] [place] [address] Nov, 2013 [facility] [place] [facility] [address] [id number] [place] [address] Nov, 2013 [facility] [place] [facility] [address] [id number] [place] [address] Nov, 2013 [facility] [place] [facility] [address] [id number] [place] [address] Nov, 2013 [facility] [place] [facility] [address] [facility] [id number] [place] [address] Nov, 2013 [facility] [place] [facility] [address] [id number] [place] [address] Nov, 2013 [facility] [place] [facility] [address] [id number] [place] [address] Nov, [facility] [place] [facility] [address] [id number] [place] [address] Nov, 2013 [facility] [place] [facility] [address] [id number] [place] [address] Oct, [facility] [place] [facility] [address] [id number] [place] [address] Oct, [facility] [place] [facility] [address] [id number] [place] [address] Oct, [facility] [place] [facility] [address] [id number] [place] [address] Oct, [facility] [place] [facility] [address] [id number] [place] [address] Oct, [facility] [place] [facility] [address] [id number] [place] [address] Oct, [facility] [place] [facility] [address] [id number] [place] [address] Oct, [facility] [place] [facility] [address] [id number] [place] [address] Oct, [facility] [place] [facility] [address] [id number] [place] [address] Oct, [facility] [place] [facility] [address] [facility] [id number] [place] [address] Oct, [facility] [place] [facility] [address] [id number] [place] [address] Oct, [facility] [place] [facility] [address] [id number] [place] [address] Oct, [facility] [place] [facility] [address] [facility] [id number] [place] [address] Oct, [facility] [place] [facility] [address] [id number] [place] [address] Oct, [facility] [place] [facility] [address] [id number] [place] [address] September, [facility] [place] [facility] [address] [id number] [place] [address] September, [facility] [place] [facility] [address] [id number] [place] [address] September, [facility] [place] [facility] [address] [id number] [place] [address] September, [facility] [place] [facility] [address] [id number] [place] [address] September, [facility] [place] [facility] [address] [id number] [place] [address] September, [facility] [place] [facility] [address] [id number] [place] [address] September, [facility] [place] [facility] [address] [facility] [id number] [place] [address] September, [facility] [place] [facility] [address] [id number] [place] [address] September, [facility] [place] [facility] [address] [id number] [place] [address] September, [facility] [place] [facility] [address] [id number] [place] [address] September, [facility] [place] [facility] [address] [facility] [id number] [place] [address] September, [facility] [place] [facility] [address] [facility] [id number] [place] [address] September, [facility] [place] [facility] [address] [id number] [place] [address] Aug, [facility] [place] [facility] [address] [facility] [id number] [place] [address] Aug, [facility] [place] [facility] [address] [facility] [id number] [place] [address] Aug, [facility] [place] [facility] [address] [facility] [id number] [place] [address] Aug, [facility] [place] [facility] [address] [id number] [place] [address] Aug, [facility] [place] [facility] [address] [id number] [place] [address] Aug, [facility] [place] [facility] [address] [id number] [place] [address] Aug, [facility] [place] [facility] [address] [id number] [place] [address] Aug, [facility] [place] [facility] [address] [id number] [place] [address] Aug, [facility] [place] [facility] [address] [id number] [place] [address] Aug, [facility] [place] [facility] [address] [facility] [id number] [place] [address] Jul, [facility] [place] [facility] [address] [id number] [place] [address] Jul, [facility] [place] [facility] [address] [id number] [place] [address] Jul, [facility] [place] [facility] [address] [id number] [place] [address] Jul, [facility] [place] [facility] [address] [id number] [place] [address] Jul, [facility] [place] [facility] [address] [facility] [id number] [place] [address] Jul, [facility] [place] [facility] [address] [id number] [place] [address] Jul, [facility] [place] [facility] [address] [id number] [place] [address] Jul, [facility] [address] [id number] [place] [address] Jun, [facility] [address] [id number] [place] [address] Jun, [facility] [address] [id number] [place] [address] 14 Jun, 2013 [facility] [address] [id number] [place] [address] 14 Jun, 2013 [facility] [address] [id number] [place] [address] Jun, [facility] [address] [id number] [place] [address] Jun, [facility] [address] [id number] [place] [address] 06 Jun, 2013 [facility] [address] [id number] [place] [address] Jun, [facility] [address] [id number] [place] [address] Jun, [facility] [address] [id number] [place] [address] Jun, [facility] [address] [id number] [place] [address] Jun, [facility] [address] [id number] [place] [address] Jun, [facility] [address] [id number] [place] [address] Jun, [facility] [address] [id number] [place] [address] Jun, [facility] [address] [id number] [place] [address] May, [facility] [address] [id number] [place] [address] May, [facility] [address] [id number] [place] [address] May, [facility] [address] [id number] [place] [address] May, [facility] [address] [id number] [place] [address] May, [facility] [address] [id number] [place] [address] May, [facility] [address] [id number] [place] [address] May, [facility] [address] [id number] [place] [address] May, [facility] [address] [id number] [place] [address] May, [facility] [address] [id number] [place] [address] May, [facility] [address] [id number] [place] [address] May, [facility] [address] [id number] [place] [address] May, [facility] [address] [id number] [place] [address] May, [facility] [address] [id number] [place] [address] May, [facility] [address] [id number] [place] [address] May, [facility] [address] [id number] [place] [address] May, [facility] [address] [id number] [place] [address] May, [facility] [address] [id number] [place] [address] May, [facility] [address] [id number] [place] [address] May, [facility] [address] [id number] [place] [address] May, [facility] [address] [id number] [place] [address] Apr, [facility] [address] [id number] [place] [address] Apr, [facility] [address] [id number] [place] [address] Apr, [facility] [address] [id number] [place] [address] Apr, [facility] [address] [id number] [place] [address] Apr, [facility] [address] [id number] [place] [address] Apr, [facility] [address] [id number] [place] [address] 18 Apr, 2013 [facility] [address] [id number] [place] [address] 18 Apr, 2013 [facility] [address] [id number] [place] [address] 17 Apr, 2013 [facility] [address] [id number] [place] [address] Apr, [facility] [address] [id number] [place] [address] Apr, [facility] [address] [id number] [place] [address] Apr, [facility] [address] [id number] [place] [address] Apr, [facility] [address] [id number] [place] [address] Apr, [facility] [address] [id number] [place] [address] Apr, [facility] [address] [id number] [place] [address] Apr, [facility] [address] [id number] [place] [address] Apr, [facility] [address] [id number] [place] [address] Apr, [facility] [address] [id number] [place] [address] Mar, [facility] [address] [id number] [place] [address] Mar, [facility] [address] [id number] [place] [address] Mar, [facility] [address] [id number] [place] [address] 14 Mar, 2013 [facility] [address] [id number] [place] [address] Mar, [facility] [address] [id number] [place] [address] Mar, [facility] [address] [id number] [place] [address] Mar, [facility] [address] [id number] [place] [address] Mar, [facility] [address] [id number] [place] [address] Mar, [facility] [address] [id number] [place] [address] Mar, [facility] [address] [id number] [place] [address] Mar, [facility] [address] [facility] [id number] [facility] [address] Feb, [facility] [address] [facility] [id number] [facility] [place] [address] Feb, [facility] [address] [id number] [facility] [address] Feb, [facility] [address] [facility] [id number] [facility] [place] [address] Feb, [facility] [address] [facility] [id number] [facility] [place] [address] Feb, [facility] [address] [id number] [facility] [address] Dec, [facility] [address] [id number] [place] [address] Dec, [facility] [address] [id number] [place] [address] Dec, [facility] [address] [facility] [id number] [facility] [place] [address] Dec, [facility] [address] [id number] [facility] [address] Nov, [facility] [address] [id number] [place] [address] Nov, [facility] [address] [id number] [place] [address] Nov, [facility] [address] [facility] [id number] [facility] [address] Nov, [facility] [address] [id number] [place] [address] Nov, [facility] [address] [facility] [id number] [facility] [place] [address] Nov, [facility] [address] [id number] [facility] [address] Oct, [facility] [address] [facility] [id number] [place] [address] Oct, [facility] [address] [id number] [place] [address] Oct, [facility] [address] [id number] [place] [address] Oct, [facility] [address] [id number] [place] [address] September, [facility] [address] [id number] [place] [address] September, [facility] [address] [id number] [place] [address] September, [facility] [address] [id number] [place] [address] September, [facility] [address] [id number] [place] [address] September, [facility] [address] [id number] [place] [address] September, [facility] [address] [id number] [place] [address] September, [facility] [address] [id number] [place] [address] September, [facility] [address] [id number] [place] [address] Aug, [facility] [address] [id number] [place] [address] Aug, [facility] [address] [id number] [place] [address] Jul, [facility] [address] [id number] [place] [address] Jun, [facility] [address] [id number] [place] [address] May, [facility] [address] [id number] [place] [address] May, [facility] [address] [id number] [place] [address] May, [facility] [address] [id number] [place] [address] May, [facility] [address] [id number] [place] [address] Apr, [facility] [address] [id number] [place] [address] Apr, [facility] [address] [id number] [place] [address] Apr, [facility] [address] [id number] [place] [address] Apr, [facility] [address] [id number] [place] [address] Apr, [facility] [address] [id number] [place] [address] Apr, [facility] [address] [id number] [place] [address] Apr, [facility] [address] [id number] [place] [address] Apr, [facility] [address] [id number] [place] [address] Apr, [facility] [address] [id number] [place] [address] 30 Mar, 2012 [facility] [address] [id number] [place] [address] 30 Mar, 2012 [facility] [address] [id number] [place] [address] Mar, [facility] [address] [id number] [place] [address] 27 Mar, 2012 [facility] [address] [id number] [place] [address] 16 Mar, 2012 [facility] [address] [id number] [place] [address] 16 Mar, 2012 [facility] [address] [id number] [place] [address] 16 Mar, 2012 [facility] [address] [id number] [place] [address] 16 Mar, 2012 [facility] [address] [id number] [place] [address] 16 Mar, 2012 [facility] [address] [id number] [place] [address] 16 Mar, 2012 [facility] [address] [id number] [place] [address] 14 Mar, 2012 [facility] [address] [id number] [place] [address] 14 Mar, 2012 [facility] [address] [id number] [place] [address] 13 Mar, 2012 [facility] [address] [id number] [place] [address] 13 Mar, 2012 [facility] [address] [id number] [place] [address] 06 Mar, 2012 [facility] [address] [id number] [place] [address] Mar, [facility] [address] [id number] [place] [address] Mar, [facility] [address] [id number] [place] [address] Mar, [facility] [address] [id number] [place] [address] Mar, [facility] [address] [id number] [place] [address] Feb, [facility] [address] [id number] [place] [address] Feb, [facility] [address] [id number] [place] [address] Feb, [facility] [id number] [place] [address] Feb, [facility] [address] [id number] [place] [address] Jan, [facility] [address] [id number] [place] [address] Jan, [facility] [address] [id number] [place] [address] Dec, [facility] [address] [id number] [place] [address] Dec, [facility] [address] [id number] [place] [address] Dec, [facility] [address] [id number] [place] [address] Nov, [facility] [address] [id number] [place] [address] Nov, [facility] [address] [id number] [place] [address] Oct, [facility] [address] [id number] [place] [address] Oct, [facility] [address] [id number] [place] [address] September, [facility] [address] [id number] [place] [address] September, [facility] [address] [id number] [place] [address] September, [facility] [address] [id number] [place] [address] September, [facility] [address] [id number] [place] [address] Aug, [facility] [address] [id number] [place] [address] Jul, [facility] [address] [id number] [place] [address] Jul, [facility] [address] [id number] [place] [address] Jun, [facility] [address] [id number] [place] [address] Jun, [facility] [address] [id number] [place] [address] Jun, [facility] [address] [id number] [place] [address] May, [facility] [address] [id number] [place] [address] May, [facility] [address] [id number] [place] [address] May, [facility] [address] [id number] [place] [address] May, [facility] [address] [id number] [place] [address] Apr, [facility] [address] [id number] [place] [address] Apr, [facility] [address] [id number] [place] [address] Apr, [facility] [address] [id number] [place] [address] Mar, [facility] [address] [id number] [place] [address] Mar, [facility] [address] [id number] [place] [address] Mar, [facility] [address] [id number] [place] [address] Mar, [facility] [address] [id number] [place] [address] Mar, [facility] [address] [id number] [place] [address] Feb, [facility] [address] [id number] [place] [address] 25 Feb, 2011 [facility] [address] [id number] [place] [address] 17 Feb, 2011 [facility] [address] [id number] [place] [address] Feb, [facility] [address] [id number] [place] [address] Feb, [facility] [address] [id number] [place] [address] Feb, [facility] [address] [id number] [place] [address] Feb, [facility] [address] [id number] [place] [address] 28 Apr, 2010 [facility] [address] [id number] [place] [address] 23 Apr, 2010 [facility] [address] [id number] [place] [address] 15 Apr, 2010 [facility] [address] [id number] [place] [address] 15 Apr, 2010 [facility] [address] [id number] [place] [address] 02 Apr, 2010 [facility] [address] [id number] [place] [address] 02 Apr, 2010 [facility] [address] [id number] [place] [address] 18 Mar, 2010 [facility] [address] [id number] [place] [address] 18 Mar, 2010 [facility] [address] [id number] [place] [address] 17 Mar, 2010 [facility] [address] [id number] [place] [address] 16 Mar, 2010 [facility] [address] [id number] [place] [address] 10 Mar, 2010 [facility] [address] [id number] [place] [address] Mar, [facility] [address] [id number] [place] [address] Mar, [facility] [address] [id number] [place] [address] Mar, [facility] [address] [id number] [place] [address] Feb, [facility] [address] [id number] [place] [address] Feb, [facility] [address] [id number] [place] [address] Dec, [facility] [address] [id number] [place] [address] Jun, [facility] [address] [id number] [place] [address] Jun, [facility] [address] [id number] [place] [address] May, [facility] [address] [id number] [place] [address] 26 Feb, 2009 [facility] [address] [id number] [place] [address] 19 Feb, 2009 [facility] [address] [id number] [place] [address] 19 Feb, 2009 [facility] [address] [id number] [place] [address] 15 Feb, 2009 [facility] [address] [id number] [place] [address] 15 Feb, 2009 [facility] [address] [id number] [place] [address] 13 Feb, 2009 [facility] [address] [id number] [place] [address] 13 Feb, 2009 [facility] [address] [id number] [place] [address] Jul, [facility] [address] [facility] [id number] [place] [address] Jun, IMMUNIZATIONS No Known Immunizations SOCIAL HISTORY Never Assessed REASON FOR VISIT PLAN OF CARE VITAL SIGNS MEDICATIONS Unknown Medications RESULTS No Results PROCEDURES No Known procedures INSTRUCTIONS MEDICATIONS ADMINISTERED No Known Medications MEDICAL (GENERAL) HISTORY Type Description Date Medical History hypertension Medical History Headache syndrome Medical History Depression Medical History borderline personality disorder Medical History gastroesophageal reflux disease (GERD) Medical History Anxiety disorder Medical History polyneuropathy left leg Medical History allergic rhinitis Medical History PTSD with Major Depression Medical History degenerative disease lumbosacral spine Medical History herniated disc & buldging disc(s) Medical History osteoarthritis Medical History heart attack Medical History asthma Medical History enlarged heart Medical History Cataract of both eyes, unspecified catar act type Surgical History right lung scraping empyema -lateral asp ect 1995 Surgical History appendectomy 1995 Surgical History EGD by Dr Parker, hiatal hernia and duo dentitis 11/06/2012 Surgical History hysterectomy 03/2008 Surgical History oopherectomy/salpingectomy 1991 Surgical History Seizures possibly related to overdose/mi staking medications 2016 Surgical History right hand debridment 07/16/2016 Surgical History Right arm cellulitus 11/2016 Hospitalization History 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
--- OUTSIDE RECORDS SUMMARY | 2019-07-25 06:32 | XMS REPORT ---
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 [facility] [place] [facility] [address] [id number] [place] [address] Mar, [facility] [place] [facility] [address] [id number] [place] [address] Feb, [facility] [place] [facility] [address] [id number] [place] [address] 16 Feb, 2014 [facility] [place] [facility] [address] [id number] [place] [address] 18 Jan, 2014 [facility] [place] [facility] [address] [id number] [place] [address] 18 Jan, 2014 [facility] [place] [facility] [address] [id number] [place] [address] 18 Jan, 2014 [facility] [place] [facility] [address] [id number] [place] [address] 18 Jan, 2014 [facility] [place] [facility] [address] [id number] [place] [address] 12 Jan, 2013 [facility] [place] [facility] [address] [id number] [place] [address] 12 Jan, 2013 [facility] [place] [facility] [address] [facility] [id number] [place] [id number] 09 Jan, 2013 [facility] [place] [facility] [address] [id number] [place] [address] 09 Jan, 2013 [facility] [place] [facility] [address] [id number] [place] [address] Jan, [facility] [place] [facility] [address] [id number] [facility] [place] [address] Jan, [facility] [place] [facility] [address] [facility] [id number] [place] [address] Dec, [facility] [place] [facility] [address] [facility] [id number] [facility] [place] [address] Dec, [facility] [place] [facility] [address] [id number] [place] [address] Dec, [facility] [place] [facility] [address] [id number] [place] [address] Dec, [facility] [place] [facility] [address] [id number] [place] [address] Dec, [facility] [place] [facility] [address] [id number] [facility] [place] [address] Dec, [facility] [place] [facility] [address] [id number] [facility] [place] [address] Dec, [facility] [place] [facility] [address] [facility] [id number] [facility] [place] [address] Dec, [facility] [place] [facility] [address] [facility] [id number] [facility] [place] [address] Dec, [facility] [place] [facility] [address] [facility] [id number] [place] [address] Nov, [facility] [place] [facility] [address] [id number] [place] [address] Nov, [facility] [place] [facility] [address] [facility] [id number] [facility] [place] [address] Nov, [facility] [place] [facility] [address] [id number] [place] [address] Nov, [facility] [place] [facility] [address] [facility] [id number] [place] [address] Nov, [facility] [place] [facility] [address] [id number] [place] [address] Nov, [facility] [place] [facility] [address] [id number] [place] [address] Nov, 2013 [facility] [place] [facility] [address] [id number] [place] [address] Nov, 2013 [facility] [place] [facility] [address] [id number] [place] [address] Nov, 2013 [facility] [place] [facility] [address] [id number] [place] [address] Nov, 2013 [facility] [place] [facility] [address] [id number] [place] [address] Nov, 2013 [facility] [place] [facility] [address] [facility] [id number] [place] [address] Nov, 2013 [facility] [place] [facility] [address] [id number] [place] [address] Nov, 2013 [facility] [place] [facility] [address] [id number] [place] [address] Nov, [facility] [place] [facility] [address] [id number] [place] [address] Nov, 2013 [facility] [place] [facility] [address] [id number] [place] [address] Oct, [facility] [place] [facility] [address] [id number] [place] [address] Oct, [facility] [place] [facility] [address] [id number] [place] [address] Oct, [facility] [place] [facility] [address] [id number] [place] [address] Oct, [facility] [place] [facility] [address] [id number] [place] [address] Oct, [facility] [place] [facility] [address] [id number] [place] [address] Oct, [facility] [place] [facility] [address] [id number] [place] [address] Oct, [facility] [place] [facility] [address] [id number] [place] [address] Oct, [facility] [place] [facility] [address] [id number] [place] [address] Oct, [facility] [place] [facility] [address] [facility] [id number] [place] [address] Oct, [facility] [place] [facility] [address] [id number] [place] [address] Oct, [facility] [place] [facility] [address] [id number] [place] [address] Oct, [facility] [place] [facility] [address] [facility] [id number] [place] [address] Oct, [facility] [place] [facility] [address] [id number] [place] [address] Oct, [facility] [place] [facility] [address] [id number] [place] [address] September, [facility] [place] [facility] [address] [id number] [place] [address] September, [facility] [place] [facility] [address] [id number] [place] [address] September, [facility] [place] [facility] [address] [id number] [place] [address] September, [facility] [place] [facility] [address] [id number] [place] [address] September, [facility] [place] [facility] [address] [id number] [place] [address] September, [facility] [place] [facility] [address] [id number] [place] [address] September, [facility] [place] [facility] [address] [facility] [id number] [place] [address] September, [facility] [place] [facility] [address] [id number] [place] [address] September, [facility] [place] [facility] [address] [id number] [place] [address] September, [facility] [place] [facility] [address] [id number] [place] [address] September, [facility] [place] [facility] [address] [facility] [id number] [facility] [place] [address] September, [facility] [place] [facility] [address] [facility] [id number] [facility] [place] [address] September, [facility] [place] [facility] [address] [id number] [facility] [place] [address] Aug, [facility] [place] [facility] [address] [facility] [id number] [facility] [place] [address] Aug, [facility] [place] [facility] [address] [facility] [id number] [facility] [place] [address] Aug, [facility] [place] [facility] [address] [facility] [id number] [place] [address] Aug, [facility] [place] [facility] [address] [id number] [place] [address] Aug, [facility] [place] [facility] [address] [id number] [place] [address] Aug, [facility] [place] [facility] [address] [id number] [place] [address] Aug, [facility] [place] [facility] [address] [id number] [place] [address] Aug, [facility] [place] [facility] [address] [id number] [place] [address] Aug, [facility] [place] [facility] [address] [id number] [place] [address] Aug, [facility] [place] [facility] [address] [facility] [id number] [place] [address] Jul, [facility] [place] [facility] [address] [id number] [place] [address] Jul, [facility] [place] [facility] [address] [id number] [place] [address] Jul, [facility] [place] [facility] [address] [id number] [place] [address] Jul, [facility] [place] [facility] [address] [id number] [place] [address] Jul, [facility] [place] [facility] [address] [facility] [id number] [place] [address] Jul, [facility] [place] [facility] [address] [id number] [place] [address] Jul, [facility] [place] [facility] [address] [id number] [place] [address] Jul, [facility] [place] [facility] [address] [id number] [place] [address] Jun, [facility] [place] [facility] [address] [id number] [place] [address] Jun, [facility] [place] [facility] [address] [id number] [place] [address] 14 Jun, 2013 [facility] [place] [facility] [address] [id number] [place] [address] 14 Jun, 2013 [facility] [place] [facility] [address] [id number] [place] [address] Jun, [facility] [place] [facility] [address] [id number] [place] [address] Jun, [facility] [place] [facility] [address] [id number] [place] [address] 06 Jun, 2013 [facility] [place] [facility] [address] [id number] [place] [address] Jun, [facility] [place] [facility] [address] [id number] [place] [address] Jun, [facility] [place] [facility] [address] [id number] [place] [address] Jun, [facility] [place] [facility] [address] [id number] [place] [address] Jun, [facility] [place] [facility] [address] [id number] [place] [address] Jun, [facility] [place] [facility] [address] [id number] [place] [address] Jun, [facility] [place] [facility] [address] [id number] [place] [address] Jun, [facility] [place] [facility] [address] [id number] [place] [address] May, [facility] [place] [facility] [address] [id number] [place] [address] May, [facility] [place] [facility] [address] [id number] [place] [address] May, [facility] [place] [facility] [address] [id number] [place] [address] May, [facility] [place] [facility] [address] [id number] [place] [address] May, [facility] [place] [facility] [address] [id number] [place] [address] May, [facility] [place] [facility] [address] [id number] [place] [address] May, [facility] [place] [facility] [address] [id number] [place] [address] May, [facility] [place] [facility] [address] [id number] [place] [address] May, [facility] [place] [facility] [address] [id number] [place] [address] May, [facility] [place] [facility] [address] [id number] [place] [address] May, [facility] [place] [facility] [address] [id number] [place] [address] May, [facility] [place] [facility] [address] [id number] [place] [address] May, [facility] [place] [facility] [address] [id number] [place] [address] May, [facility] [place] [facility] [address] [id number] [place] [address] May, [facility] [place] [facility] [address] [id number] [place] [address] May, [facility] [place] [facility] [address] [id number] [place] [address] May, [facility] [place] [facility] [address] [id number] [place] [address] May, [facility] [place] [facility] [address] [id number] [place] [address] May, [facility] [place] [facility] [address] [id number] [place] [address] May, [facility] [place] [facility] [address] [id number] [place] [address] Apr, [facility] [place] [facility] [address] [id number] [place] [address] Apr, [facility] [place] [facility] [address] [id number] [place] [address] Apr, [facility] [place] [facility] [address] [id number] [place] [address] Apr, [facility] [place] [facility] [address] [id number] [place] [address] Apr, [facility] [place] [facility] [address] [id number] [place] [address] Apr, [facility] [place] [facility] [address] [id number] [place] [address] 18 Apr, 2013 [facility] [address] [id number] [place] [address] 18 Apr, 2013 [facility] [address] [id number] [place] [address] 17 Apr, 2013 [facility] [address] [id number] [place] [address] Apr, [facility] [address] [id number] [place] [address] Apr, [facility] [address] [id number] [place] [address] Apr, [facility] [address] [id number] [place] [address] Apr, [facility] [address] [id number] [place] [address] Apr, [facility] [address] [id number] [place] [address] Apr, [facility] [address] [id number] [place] [address] Apr, [facility] [address] [id number] [place] [address] Apr, [facility] [address] [id number] [place] [address] Apr, [facility] [address] [id number] [place] [address] Mar, [facility] [address] [id number] [place] [address] Mar, [facility] [address] [id number] [place] [address] Mar, [facility] [address] [id number] [place] [address] 14 Mar, 2013 [facility] [address] [id number] [place] [address] Mar, [facility] [address] [id number] [place] [address] Mar, [facility] [address] [id number] [place] [address] Mar, [facility] [address] [id number] [place] [address] Mar, [facility] [address] [id number] [place] [address] Mar, [facility] [address] [id number] [place] [address] Mar, [facility] [address] [id number] [place] [address] Mar, [facility] [address] [facility] [id number] [facility] [place] [address] Feb, [facility] [address] [facility] [id number] [facility] [place] [address] Feb, [facility] [address] [id number] [facility] [place] [address] Feb, [facility] [address] [facility] [id number] [facility] [place] [address] Feb, [facility] [address] [facility] [id number] [facility] [place] [address] Feb, [facility] [address] [id number] [facility] [place] [address] Dec, [facility] [address] [id number] [place] [address] Dec, [facility] [address] [id number] [place] [address] Dec, [facility] [address] [facility] [id number] [facility] [place] [address] Dec, [facility] [address] [id number] [facility] [place] [address] Nov, [facility] [address] [id number] [place] [address] Nov, [facility] [address] [id number] [place] [address] Nov, [facility] [address] [facility] [id number] [facility] [place] [address] Nov, [facility] [address] [id number] [place] [address] Nov, [facility] [address] [facility] [id number] [facility] [place] [address] Nov, [facility] [address] [id number] [facility] [place] [address] Oct, [facility] [address] [facility] [id number] [facility] [place] [address] Oct, [facility] [address] [id number] [place] [address] Oct, [facility] [address] [id number] [place] [address] Oct, [facility] [address] [id number] [place] [address] September, [facility] [address] [id number] [place] [address] September, [facility] [address] [id number] [place] [address] September, [facility] [address] [id number] [place] [address] September, [facility] [address] [id number] [place] [address] September, [facility] [address] [id number] [place] [address] September, [facility] [address] [id number] [place] [address] September, [facility] [address] [id number] [place] [address] September, [facility] [address] [id number] [place] [address] Aug, [facility] [address] [id number] [place] [address] Aug, [facility] [address] [id number] [place] [address] Jul, [facility] [address] [id number] [place] [address] Jun, [facility] [address] [id number] [place] [address] May, [facility] [address] [id number] [place] [address] May, [facility] [address] [id number] [place] [address] May, [facility] [address] [id number] [place] [address] May, [facility] [address] [id number] [place] [address] Apr, [facility] [address] [id number] [place] [address] Apr, [facility] [address] [id number] [place] [address] Apr, [facility] [address] [id number] [place] [address] Apr, [facility] [address] [id number] [place] [address] Apr, [facility] [address] [id number] [place] [address] Apr, [facility] [address] [id number] [place] [address] Apr, [facility] [address] [id number] [place] [address] Apr, [facility] [address] [id number] [place] [address] Apr, [facility] [address] [id number] [place] [address] 30 Mar, 2012 [facility] [address] [id number] [place] [address] 30 Mar, 2012 [facility] [address] [id number] [place] [address] Mar, [facility] [address] [id number] [place] [address] 27 Mar, 2012 [facility] [address] [id number] [place] [address] 16 Mar, 2012 [facility] [address] [id number] [place] [address] 16 Mar, 2012 [facility] [address] [id number] [place] [address] 16 Mar, 2012 [facility] [address] [id number] [place] [address] 16 Mar, 2012 [facility] [address] [id number] [place] [address] 16 Mar, 2012 [facility] [address] [id number] [place] [address] 16 Mar, 2012 [facility] [address] [id number] [place] [address] 14 Mar, 2012 [facility] [address] [id number] [place] [address] 14 Mar, 2012 [facility] [address] [id number] [place] [address] 13 Mar, 2012 [facility] [address] [id number] [place] [address] 13 Mar, 2012 [facility] [address] [id number] [place] [address] 06 Mar, 2012 [facility] [address] [id number] [place] [address] Mar, [facility] [address] [id number] [place] [address] Mar, [facility] [address] [id number] [place] [address] Mar, [facility] [address] [id number] [place] [address] Mar, [facility] [address] [id number] [place] [address] Feb, [facility] [address] [id number] [place] [address] Feb, [facility] [address] [id number] [place] [address] Feb, [facility] [id number] [place] [address] Feb, [facility] [address] [id number] [place] [address] Jan, [facility] [address] [id number] [place] [address] Jan, [facility] [address] [id number] [place] [address] Dec, [facility] [address] [id number] [place] [address] Dec, [facility] [address] [id number] [place] [address] Dec, [facility] [address] [id number] [place] [address] Nov, [facility] [address] [id number] [place] [address] Nov, [facility] [address] [id number] [place] [address] Oct, [facility] [address] [id number] [place] [address] Oct, [facility] [address] [id number] [place] [address] September, [facility] [address] [id number] [place] [address] September, [facility] [address] [id number] [place] [address] September, [facility] [address] [id number] [place] [address] September, [facility] [address] [id number] [place] [address] Aug, [facility] [address] [id number] [place] [address] Jul, [facility] [address] [id number] [place] [address] Jul, [facility] [address] [id number] [place] [address] Jun, [facility] [address] [id number] [place] [address] Jun, [facility] [address] [id number] [place] [address] Jun, [facility] [address] [id number] [place] [address] May, [facility] [address] [id number] [place] [address] May, [facility] [address] [id number] [place] [address] May, [facility] [address] [id number] [place] [address] May, [facility] [address] [id number] [place] [address] Apr, [facility] [address] [id number] [place] [address] Apr, [facility] [address] [id number] [place] [address] Apr, [facility] [address] [id number] [place] [address] Mar, [facility] [address] [id number] [place] [address] Mar, [facility] [address] [id number] [place] [address] Mar, [facility] [address] [id number] [place] [address] Mar, [facility] [address] [id number] [place] [address] Mar, [facility] [address] [id number] [place] [address] Feb, [facility] [address] [id number] [place] [address] 25 Feb, 2011 [facility] [address] [id number] [place] [address] 17 Feb, 2011 [facility] [address] [id number] [place] [address] Feb, [facility] [address] [id number] [place] [address] Feb, [facility] [address] [id number] [place] [address] Feb, [facility] [address] [id number] [place] [address] Feb, [facility] [address] [id number] [place] [address] 28 Apr, 2010 [facility] [address] [id number] [place] [address] 23 Apr, 2010 [facility] [address] [id number] [place] [address] 15 Apr, 2010 [facility] [address] [id number] [place] [address] 15 Apr, 2010 [facility] [address] [id number] [place] [address] 02 Apr, 2010 [facility] [address] [id number] [place] [address] 02 Apr, 2010 [facility] [address] [id number] [place] [address] 18 Mar, 2010 [facility] [address] [id number] [place] [address] 18 Mar, 2010 [facility] [address] [id number] [place] [address] 17 Mar, 2010 [facility] [address] [id number] [place] [address] 16 Mar, 2010 [facility] [address] [id number] [place] [address] 10 Mar, 2010 [facility] [address] [id number] [place] [address] Mar, [facility] [address] [id number] [place] [address] Mar, [facility] [address] [id number] [place] [address] Mar, [facility] [address] [id number] [place] [address] Feb, [facility] [address] [id number] [place] [address] Feb, [facility] [address] [id number] [place] [address] Dec, [facility] [address] [id number] [place] [address] Jun, [facility] [address] [id number] [place] [address] Jun, [facility] [address] [id number] [place] [address] May, [facility] [address] [id number] [place] [address] 26 Feb, 2009 [facility] [address] [id number] [place] [address] 19 Feb, 2009 [facility] [address] [id number] [place] [address] 19 Feb, 2009 [facility] [address] [id number] [place] [address] 15 Feb, 2009 [facility] [address] [id number] [place] [address] 15 Feb, 2009 [facility] [address] [id number] [place] [address] 13 Feb, 2009 [facility] [address] [id number] [place] [address] 13 Feb, 2009 [facility] [address] [id number] [place] [address] Jul, [facility] [address] [facility] [id number] [place] [address] Jun, IMMUNIZATIONS No Known Immunizations SOCIAL HISTORY Never Assessed REASON FOR VISIT PLAN OF CARE VITAL SIGNS Height 66 in 2013-06-14 Weight 288 lbs 2013-06-14 Temperature 97.4 degrees Fahrenheit 2013-06-14 Heart Rate 94 bpm 2013-06-14 Respiratory Rate 20 2013-06-14 Blood pressure systolic 142 mmHg 2013-06-14 Blood pressure diastolic 92 mmHg 2013-06-14 MEDICATIONS Unknown Medications RESULTS No Results PROCEDURES Procedure Date Ordered Result Body Site COMPLETE CBC W/AUTO DIFF WBC Jun 14, 2013 RBC SED RATE, AUTOMATED Jun 14, 2013 GLYCATED HEMOGLOBIN TEST Jun 14, 2013 GLUCOSE TOLERANCE TEST (GTT) Jun 14, 2013 BLOOD FOLIC ACID SERUM Jun 14, 2013 VITAMIN B-12 Jun 14, 2013 COMPREHEN METABOLIC PANEL Jun 14, 2013 VENIPUNCT, ROUTINE* Jun 14, 2013 INSTRUCTIONS MEDICATIONS ADMINISTERED No Known Medications MEDICAL [...] 08/2014 Hospitalization History Rt hand post op infection-[facility] 7 Hospitalization History cellulitus Right elbow-[facility] 12/09/16
--- OUTSIDE RECORDS SUMMARY | 2019-07-25 06:33 | XMS REPORT ---
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 [facility] [address] [id number] [place] [address] Mar, [facility] [place] [facility] [address] [id number] [place] [address] Mar, [facility] [place] [facility] [address] [id number] [place] [address] Mar, [facility] [place] [facility] [address] [id number] [place] [address] Feb, [facility] [place] [facility] [address] [id number] [place] [address] 16 Feb, 2014 [facility] [place] [facility] [address] [id number] [place] [address] 18 Jan, 2014 [facility] [place] [facility] [address] [id number] [place] [address] 18 Jan, 2014 [facility] [place] [facility] [address] [id number] [place] [address] 18 Jan, 2014 [facility] [place] [facility] [address] [id number] [place] [address] 18 Jan, 2014 [facility] [place] [facility] [address] [id number] [place] [address] 12 Jan, 2013 [facility] [place] [facility] [address] [id number] [place] [address] 12 Jan, 2013 [facility] [place] [facility] [address] [facility] [id number] [place] [id number] 09 Jan, 2013 [facility] [place] [facility] [address] [id number] [place] [address] 09 Jan, 2013 [facility] [place] [facility] [address] [id number] [place] [address] Jan, [facility] [place] [facility] [address] [id number] [facility] [address] Jan, [facility] [place] [facility] [address] [facility] [id number] [place] [address] Dec, [facility] [place] [facility] [address] [facility] [id number] [facility] [place] [address] Dec, [facility] [place] [facility] [address] [id number] [place] [address] Dec, [facility] [place] [facility] [address] [id number] [place] [address] Dec, [facility] [place] [facility] [address] [id number] [place] [address] Dec, [facility] [place] [facility] [address] [id number] [facility] [place] [address] Dec, [facility] [place] [facility] [address] [id number] [facility] [address] Dec, [facility] [place] [facility] [address] [facility] [id number] [facility] [place] [address] Dec, [facility] [place] [facility] [address] [facility] [id number] [facility] [address] Dec, [facility] [place] [facility] [address] [facility] [id number] [place] [address] Nov, [facility] [place] [facility] [address] [id number] [place] [address] Nov, [facility] [place] [facility] [address] [facility] [id number] [facility] [place] [address] Nov, [facility] [place] [facility] [address] [id number] [place] [address] Nov, [facility] [place] [facility] [address] [facility] [id number] [place] [address] Nov, [facility] [place] [facility] [address] [id number] [place] [address] Nov, [facility] [place] [facility] [address] [id number] [place] [address] Nov, 2013 [facility] [place] [facility] [address] [id number] [place] [address] Nov, 2013 [facility] [place] [facility] [address] [id number] [place] [address] Nov, 2013 [facility] [place] [facility] [address] [id number] [place] [address] Nov, 2013 [facility] [place] [facility] [address] [id number] [place] [address] Nov, 2013 [facility] [place] [facility] [address] [facility] [id number] [place] [address] Nov, 2013 [facility] [place] [facility] [address] [id number] [place] [address] Nov, 2013 [facility] [place] [facility] [address] [id number] [place] [address] Nov, [facility] [place] [facility] [address] [id number] [place] [address] Nov, 2013 [facility] [place] [facility] [address] [id number] [place] [address] Oct, [facility] [place] [facility] [address] [id number] [place] [address] Oct, [facility] [place] [facility] [address] [id number] [place] [address] Oct, [facility] [place] [facility] [address] [id number] [place] [address] Oct, [facility] [place] [facility] [address] [id number] [place] [address] Oct, [facility] [place] [facility] [address] [id number] [place] [address] Oct, [facility] [place] [facility] [address] [id number] [place] [address] Oct, [facility] [place] [facility] [address] [id number] [place] [address] Oct, [facility] [place] [facility] [address] [id number] [place] [address] Oct, [facility] [place] [facility] [address] [facility] [id number] [place] [address] Oct, [facility] [place] [facility] [address] [id number] [place] [address] Oct, [facility] [place] [facility] [address] [id number] [place] [address] Oct, [facility] [place] [facility] [address] [facility] [id number] [place] [address] Oct, [facility] [place] [facility] [address] [id number] [place] [address] Oct, [facility] [place] [facility] [address] [id number] [place] [address] September, [facility] [place] [facility] [address] [id number] [place] [address] September, [facility] [place] [facility] [address] [id number] [place] [address] September, [facility] [place] [facility] [address] [id number] [place] [address] September, [facility] [place] [facility] [address] [id number] [place] [address] September, [facility] [place] [facility] [address] [id number] [place] [address] September, [facility] [place] [facility] [address] [id number] [place] [address] September, [facility] [place] [facility] [address] [facility] [id number] [place] [address] September, [facility] [place] [facility] [address] [id number] [place] [address] September, [facility] [place] [facility] [address] [id number] [place] [address] September, [facility] [place] [facility] [address] [id number] [place] [address] September, [facility] [place] [facility] [address] [facility] [id number] [facility] [place] [address] September, [facility] [place] [facility] [address] [facility] [id number] [facility] [address] September, [facility] [place] [facility] [address] [id number] [facility] [place] [address] Aug, [facility] [place] [facility] [address] [facility] [id number] [facility] [address] Aug, [facility] [place] [facility] [address] [facility] [id number] [facility] [place] [address] Aug, [facility] [place] [facility] [address] [facility] [id number] [place] [address] Aug, [facility] [place] [facility] [address] [id number] [place] [address] Aug, [facility] [place] [facility] [address] [id number] [place] [address] Aug, [facility] [place] [facility] [address] [id number] [place] [address] Aug, [facility] [place] [facility] [address] [id number] [place] [address] Aug, [facility] [place] [facility] [address] [id number] [place] [address] Aug, [facility] [place] [facility] [address] [id number] [place] [address] Aug, [facility] [place] [facility] [address] [facility] [id number] [place] [address] Jul, [facility] [place] [facility] [address] [id number] [place] [address] Jul, [facility] [place] [facility] [address] [id number] [place] [address] Jul, [facility] [place] [facility] [address] [id number] [place] [address] Jul, [facility] [place] [facility] [address] [id number] [place] [address] Jul, [facility] [place] [facility] [address] [facility] [id number] [place] [address] Jul, [facility] [place] [facility] [address] [id number] [place] [address] Jul, [facility] [place] [facility] [address] [id number] [place] [address] Jul, [facility] [place] [facility] [address] [id number] [place] [address] Jun, [facility] [place] [facility] [address] [id number] [place] [address] Jun, [facility] [place] [facility] [address] [id number] [place] [address] 14 Jun, 2013 [facility] [place] [facility] [address] [id number] [place] [address] 14 Jun, 2013 [facility] [place] [facility] [address] [id number] [place] [address] Jun, [facility] [place] [facility] [address] [id number] [place] [address] Jun, [facility] [place] [facility] [address] [id number] [place] [address] 06 Jun, 2013 [facility] [place] [facility] [address] [id number] [place] [address] Jun, [facility] [place] [facility] [address] [id number] [place] [address] Jun, [facility] [place] [facility] [address] [id number] [place] [address] Jun, [facility] [place] [facility] [address] [id number] [place] [address] Jun, [facility] [address] [id number] [place] [address] Jun, [facility] [address] [id number] [place] [address] Jun, [facility] [address] [id number] [place] [address] Jun, [facility] [address] [id number] [place] [address] May, [facility] [address] [id number] [place] [address] May, [facility] [address] [id number] [place] [address] May, [facility] [address] [id number] [place] [address] May, [facility] [address] [id number] [place] [address] May, [facility] [address] [id number] [place] [address] May, [facility] [address] [id number] [place] [address] May, [facility] [address] [id number] [place] [address] May, [facility] [address] [id number] [place] [address] May, [facility] [address] [id number] [place] [address] May, [facility] [address] [id number] [place] [address] May, [facility] [address] [id number] [place] [address] May, [facility] [address] [id number] [place] [address] May, [facility] [address] [id number] [place] [address] May, [facility] [address] [id number] [place] [address] May, [facility] [address] [id number] [place] [address] May, [facility] [address] [id number] [place] [address] May, [facility] [address] [id number] [place] [address] May, [facility] [address] [id number] [place] [address] May, [facility] [address] [id number] [place] [address] May, [facility] [address] [id number] [place] [address] Apr, [facility] [address] [id number] [place] [address] Apr, [facility] [address] [id number] [place] [address] Apr, [facility] [address] [id number] [place] [address] Apr, [facility] [address] [id number] [place] [address] Apr, [facility] [address] [id number] [place] [address] Apr, [facility] [address] [id number] [place] [address] 18 Apr, 2013 [facility] [address] [id number] [place] [address] 18 Apr, 2013 [facility] [address] [id number] [place] [address] 17 Apr, 2013 [facility] [address] [id number] [place] [address] Apr, [facility] [address] [id number] [place] [address] Apr, [facility] [address] [id number] [place] [address] Apr, [facility] [address] [id number] [place] [address] Apr, [facility] [address] [id number] [place] [address] Apr, [facility] [address] [id number] [place] [address] Apr, [facility] [address] [id number] [place] [address] Apr, [facility] [address] [id number] [place] [address] Apr, [facility] [address] [id number] [place] [address] Apr, [facility] [address] [id number] [place] [address] Mar, [facility] [address] [id number] [place] [address] Mar, [facility] [address] [id number] [place] [address] Mar, [facility] [address] [id number] [place] [address] 14 Mar, 2013 [facility] [address] [id number] [place] [address] Mar, [facility] [address] [id number] [place] [address] Mar, [facility] [address] [id number] [place] [address] Mar, [facility] [address] [id number] [place] [address] Mar, [facility] [address] [id number] [place] [address] Mar, [facility] [address] [id number] [place] [address] Mar, [facility] [address] [id number] [place] [address] Mar, [facility] [facility] [address] [facility] [id number] [facility] [place] [address] Feb, [facility] [address] [facility] [id number] [facility] [place] [address] Feb, [facility] [address] [id number] [facility] [place] [address] Feb, [facility] [address] [facility] [id number] [facility] [place] [address] Feb, [facility] [address] [facility] [id number] [facility] [place] [address] Feb, [facility] [address] [id number] [facility] [address] Dec, [facility] [address] [id number] [place] [address] Dec, [facility] [address] [id number] [place] [address] Dec, [facility] [address] [facility] [id number] [facility] [place] [address] Dec, [facility] [address] [id number] [facility] [place] [address] Nov, [facility] [address] [id number] [place] [address] Nov, [facility] [address] [id number] [place] [address] Nov, [facility] [address] [facility] [id number] [facility] [place] [address] Nov, [facility] [address] [id number] [place] [address] Nov, [facility] [address] [facility] [id number] [facility] [place] [address] Nov, [facility] [address] [id number] [facility] [address] Oct, [facility] [address] [facility] [id number] [facility] [place] [address] Oct, [facility] [address] [id number] [place] [address] Oct, [facility] [address] [id number] [place] [address] Oct, [facility] [address] [id number] [place] [address] September, [facility] [address] [id number] [place] [address] September, [facility] [address] [id number] [place] [address] September, [facility] [address] [id number] [place] [address] September, [facility] [address] [id number] [place] [address] September, [facility] [address] [id number] [place] [address] September, [facility] [address] [id number] [place] [address] September, [facility] [address] [id number] [place] [address] September, [facility] [address] [id number] [place] [address] Aug, [facility] [address] [id number] [place] [address] Aug, [facility] [address] [id number] [place] [address] Jul, [facility] [address] [id number] [place] [address] Jun, [facility] [address] [id number] [place] [address] May, [facility] [address] [id number] [place] [address] May, [facility] [address] [id number] [place] [address] May, [facility] [address] [id number] [place] [address] May, [facility] [address] [id number] [place] [address] Apr, [facility] [address] [id number] [place] [address] Apr, [facility] [address] [id number] [place] [address] Apr, [facility] [address] [id number] [place] [address] Apr, [facility] [address] [id number] [place] [address] Apr, [facility] [address] [id number] [place] [address] Apr, [facility] [address] [id number] [place] [address] Apr, [facility] [address] [id number] [place] [address] Apr, [facility] [address] [id number] [place] [address] Apr, [facility] [address] [id number] [place] [address] 30 Mar, 2012 [facility] [address] [id number] [place] [address] 30 Mar, 2012 [facility] [address] [id number] [place] [address] Mar, [facility] [address] [id number] [place] [address] 27 Mar, 2012 [facility] [address] [id number] [place] [address] 16 Mar, 2012 [facility] [address] [id number] [place] [address] 16 Mar, 2012 [facility] [address] [id number] [place] [address] 16 Mar, 2012 [facility] [address] [id number] [place] [address] 16 Mar, 2012 [facility] [address] [id number] [place] [address] 16 Mar, 2012 [facility] [address] [id number] [place] [address] 16 Mar, 2012 [facility] [address] [id number] [place] [address] 14 Mar, 2012 [facility] [address] [id number] [place] [address] 14 Mar, 2012 [facility] [address] [id number] [place] [address] 13 Mar, 2012 [facility] [address] [id number] [place] [address] 13 Mar, 2012 [facility] [address] [id number] [place] [address] 06 Mar, 2012 [facility] [address] [id number] [place] [address] Mar, [facility] [address] [id number] [place] [address] Mar, [facility] [address] [id number] [place] [address] Mar, [facility] [address] [id number] [place] [address] Mar, [facility] [address] [id number] [place] [address] Feb, [facility] [address] [id number] [place] [address] Feb, [facility] [address] [id number] [place] [address] Feb, [facility] [address] [id number] [place] [address] Feb, [facility] [address] [id number] [place] [address] Jan, [facility] [address] [id number] [place] [address] Jan, [facility] [address] [id number] [place] [address] Dec, [facility] [address] [id number] [place] [address] Dec, [facility] [address] [id number] [place] [address] Dec, [facility] [address] [id number] [place] [address] Nov, [facility] [address] [id number] [place] [address] Nov, [facility] [address] [id number] [place] [address] Oct, [facility] [address] [id number] [place] [address] Oct, [facility] [address] [id number] [place] [address] September, [facility] [address] [id number] [place] [address] September, [facility] [address] [id number] [place] [address] September, [facility] [address] [id number] [place] [address] September, [facility] [address] [id number] [place] [address] Aug, [facility] [address] [id number] [place] [address] Jul, [facility] [address] [id number] [place] [address] Jul, [facility] [address] [id number] [place] [address] Jun, [facility] [address] [id number] [place] [address] Jun, [facility] [address] [id number] [place] [address] Jun, [facility] [address] [id number] [place] [address] May, [facility] [address] [id number] [place] [address] May, [facility] [address] [id number] [place] [address] May, [facility] [address] [id number] [place] [address] May, [facility] [address] [id number] [place] [address] Apr, [facility] [address] [id number] [place] [address] Apr, [facility] [address] [id number] [place] [address] Apr, [facility] [address] [id number] [place] [address] Mar, [facility] [address] [id number] [place] [address] Mar, [facility] [address] [id number] [place] [address] Mar, [facility] [address] [id number] [place] [address] Mar, [facility] [address] [id number] [place] [address] Mar, [facility] [address] [id number] [place] [address] Feb, [facility] [address] [id number] [place] [address] 25 Feb, 2011 [facility] [address] [id number] [place] [address] 17 Feb, 2011 [facility] [address] [id number] [place] [address] Feb, [facility] [address] [id number] [place] [address] Feb, [facility] [address] [id number] [place] [address] Feb, [facility] [address] [id number] [place] [address] Feb, [facility] [address] [id number] [place] [address] 28 Apr, 2010 [facility] [address] [id number] [place] [address] 23 Apr, 2010 [facility] [address] [id number] [place] [address] 15 Apr, 2010 [facility] [address] [id number] [place] [address] 15 Apr, 2010 [facility] [address] [id number] [place] [address] 02 Apr, 2010 [facility] [address] [id number] [place] [address] 02 Apr, 2010 [facility] [address] [id number] [place] [address] 18 Mar, 2010 [facility] [address] [id number] [place] [address] 18 Mar, 2010 [facility] [address] [id number] [place] [address] 17 Mar, 2010 [facility] [address] [id number] [place] [address] 16 Mar, 2010 [facility] [address] [id number] [place] [address] 10 Mar, 2010 [facility] [address] [id number] [place] [address] Mar, [facility] [address] [id number] [place] [address] Mar, [facility] [address] [id number] [place] [address] Mar, [facility] [address] [id number] [place] [address] Feb, [facility] [address] [id number] [place] [address] Feb, [facility] [address] [id number] [place] [address] Dec, [facility] [address] [id number] [place] [address] Jun, [facility] [address] [id number] [place] [address] Jun, [facility] [address] [id number] [place] [address] May, [facility] [address] [id number] [place] [address] 26 Feb, 2009 [facility] [address] [id number] [place] [address] 19 Feb, 2009 [facility] [address] [id number] [place] [address] 19 Feb, 2009 [facility] [address] [id number] [place] [address] 15 Feb, 2009 [facility] [address] [id number] [place] [address] 15 Feb, 2009 [facility] [address] [id number] [place] [address] 13 Feb, 2009 [facility] [address] [id number] [place] [address] 13 Feb, 2009 [facility] [address] [id number] [place] [address] Jul, [facility] [address] [facility] [id number] [place] [address] Jun, IMMUNIZATIONS No Known Immunizations SOCIAL HISTORY [...] History Rt hand post op infection-[facility] 7 Hospitalization History cellulitus Right elbow-[facility] 12/09/16
--- OUTSIDE RECORDS SUMMARY | 2019-07-25 06:34 | XMS REPORT ---
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 [id number] [place] [address] Mar, [facility] [place] [facility] [address] [id number] [place] [address] Mar, [facility] [place] [facility] [address] [id number] [place] [address] Feb, [facility] [place] [facility] [address] [id number] [place] [address] 16 Feb, 2014 [facility] [place] [facility] [address] [id number] [place] [address] 18 Jan, 2014 [facility] [place] [facility] [address] [id number] [place] [address] 18 Jan, 2014 [facility] [place] [facility] [address] [id number] [place] [address] 18 Jan, 2014 [facility] [place] [facility] [address] [id number] [place] [address] 18 Jan, 2014 [facility] [place] [facility] [address] [id number] [place] [address] 12 Jan, 2013 [facility] [place] [facility] [address] [id number] [place] [address] 12 Jan, 2013 [facility] [place] [facility] [address] [facility] [id number] [place] [id number] 09 Jan, 2013 [facility] [place] [facility] [address] [id number] [place] [address] 09 Jan, 2013 [facility] [place] [facility] [address] [id number] [place] [address] Jan, [facility] [place] [facility] [address] [id number] [place] [address] Jan, [facility] [place] [facility] [address] [facility] [id number] [place] [address] Dec, [facility] [place] [facility] [address] [facility] [id number] [place] [address] Dec, [facility] [place] [facility] [address] [id number] [place] [address] Dec, [facility] [place] [facility] [address] [id number] [place] [address] Dec, [facility] [place] [facility] [address] [id number] [place] [address] Dec, [facility] [place] [facility] [address] [id number] [place] [address] Dec, [facility] [place] [facility] [address] [id number] [place] [address] Dec, [facility] [place] [facility] [address] [facility] [id number] [place] [address] Dec, [facility] [place] [facility] [address] [facility] [id number] [place] [address] Dec, [facility] [place] [facility] [address] [facility] [place] [id number] [place] [address] Nov, [facility] [place] [facility] [address] [id number] [place] [address] Nov, [facility] [place] [facility] [address] [facility] [id number] [place] [address] Nov, [facility] [place] [facility] [address] [id number] [place] [address] Nov, [facility] [place] [facility] [address] [facility] [id number] [place] [address] Nov, [facility] [place] [facility] [address] [id number] [place] [address] Nov, [facility] [place] [facility] [address] [id number] [place] [address] Nov, 2013 [facility] [place] [facility] [address] [id number] [place] [address] Nov, 2013 [facility] [place] [facility] [address] [id number] [place] [address] Nov, 2013 [facility] [place] [facility] [address] [id number] [place] [address] Nov, 2013 [facility] [place] [facility] [address] [id number] [place] [address] Nov, 2013 [facility] [place] [facility] [address] [facility] [place] [id number] [place] [address] Nov, 2013 [facility] [place] [facility] [address] [id number] [place] [address] Nov, 2013 [facility] [place] [facility] [address] [id number] [place] [address] Nov, [facility] [place] [facility] [address] [id number] [place] [address] Nov, 2013 [facility] [place] [facility] [address] [id number] [place] [address] Oct, [facility] [place] [facility] [address] [id number] [place] [address] Oct, [facility] [place] [facility] [address] [id number] [place] [address] Oct, [facility] [place] [facility] [address] [id number] [place] [address] Oct, [facility] [place] [facility] [address] [id number] [place] [address] Oct, [facility] [place] [facility] [address] [id number] [place] [address] Oct, [facility] [place] [facility] [address] [id number] [place] [address] Oct, [facility] [place] [facility] [address] [id number] [place] [address] Oct, [facility] [place] [facility] [address] [id number] [place] [address] Oct, [facility] [place] [facility] [address] [facility] [id number] [place] [address] Oct, [facility] [place] [facility] [address] [id number] [place] [address] Oct, [facility] [place] [facility] [address] [id number] [place] [address] Oct, [facility] [place] [facility] [address] [facility] [id number] [place] [address] Oct, [facility] [place] [facility] [address] [id number] [place] [address] Oct, [facility] [place] [facility] [address] [id number] [place] [address] September, [facility] [place] [facility] [address] [id number] [place] [address] September, [facility] [place] [facility] [address] [id number] [place] [address] September, [facility] [place] [facility] [address] [id number] [place] [address] September, [facility] [place] [facility] [address] [id number] [place] [address] September, [facility] [place] [facility] [address] [id number] [place] [address] September, [facility] [place] [facility] [address] [id number] [place] [address] September, [facility] [place] [facility] [address] [facility] [id number] [place] [address] September, [facility] [place] [facility] [address] [id number] [place] [address] September, [facility] [place] [facility] [address] [id number] [place] [address] September, [facility] [place] [facility] [address] [id number] [place] [address] September, [facility] [place] [facility] [address] [facility] [id number] [place] [address] September, [facility] [place] [facility] [address] [facility] [id number] [place] [address] September, [facility] [place] [facility] [address] [id number] [place] [address] Aug, [facility] [place] [facility] [address] [facility] [id number] [place] [address] Aug, [facility] [place] [facility] [address] [facility] [id number] [place] [address] Aug, [facility] [place] [facility] [address] [facility] [id number] [place] [address] Aug, [facility] [place] [facility] [address] [id number] [place] [address] Aug, [facility] [place] [facility] [address] [id number] [place] [address] Aug, [facility] [place] [facility] [address] [id number] [place] [address] Aug, [facility] [place] [facility] [address] [id number] [place] [address] Aug, [facility] [place] [facility] [address] [id number] [place] [address] Aug, [facility] [place] [facility] [address] [id number] [place] [address] Aug, [facility] [place] [facility] [address] [facility] [id number] [place] [address] Jul, [facility] [place] [facility] [address] [id number] [place] [address] Jul, [facility] [place] [facility] [address] [id number] [place] [address] Jul, [facility] [place] [facility] [address] [id number] [place] [address] Jul, [facility] [place] [facility] [address] [id number] [place] [address] Jul, [facility] [place] [facility] [address] [facility] [id number] [place] [address] Jul, [facility] [place] [facility] [address] [id number] [place] [address] Jul, [facility] [place] [facility] [address] [id number] [place] [address] Jul, [facility] [place] [facility] [address] [id number] [place] [address] Jun, [facility] [place] [facility] [address] [id number] [place] [address] Jun, [facility] [place] [facility] [address] [id number] [place] [address] 14 Jun, 2013 [facility] [place] [facility] [address] [id number] [place] [address] 14 Jun, 2013 [facility] [place] [facility] [address] [id number] [place] [address] Jun, [facility] [place] [facility] [address] [id number] [place] [address] Jun, [facility] [place] [facility] [address] [id number] [place] [address] 06 Jun, 2013 [facility] [place] [facility] [address] [id number] [place] [address] Jun, [facility] [place] [facility] [address] [id number] [place] [address] Jun, [facility] [place] [facility] [address] [id number] [place] [address] Jun, [facility] [place] [facility] [address] [id number] [place] [address] Jun, [facility] [place] [facility] [address] [id number] [place] [address] Jun, [facility] [place] [facility] [address] [id number] [place] [address] Jun, [facility] [place] [facility] [address] [id number] [place] [address] Jun, [facility] [place] [facility] [address] [id number] [place] [address] May, [facility] [place] [facility] [address] [id number] [place] [address] May, [facility] [place] [facility] [address] [id number] [place] [address] May, [facility] [place] [facility] [address] [id number] [place] [address] May, [facility] [place] [facility] [address] [id number] [place] [address] May, [facility] [place] [facility] [address] [id number] [place] [address] May, [facility] [place] [facility] [address] [id number] [place] [address] May, [facility] [place] [facility] [address] [id number] [place] [address] May, [facility] [place] [facility] [address] [id number] [place] [address] May, [facility] [place] [facility] [address] [id number] [place] [address] May, [facility] [place] [facility] [address] [id number] [place] [address] May, [facility] [place] [facility] [address] [id number] [place] [address] May, [facility] [place] [facility] [address] [id number] [place] [address] May, [facility] [place] [facility] [address] [id number] [place] [address] May, [facility] [place] [facility] [address] [id number] [place] [address] May, [facility] [place] [facility] [address] [id number] [place] [address] May, [facility] [place] [facility] [address] [id number] [place] [address] May, [facility] [place] [facility] [address] [id number] [place] [address] May, [facility] [place] [facility] [address] [id number] [place] [address] May, [facility] [address] [id number] [place] [address] May, [facility] [address] [id number] [place] [address] Apr, [facility] [address] [id number] [place] [address] Apr, [facility] [address] [id number] [place] [address] Apr, [facility] [address] [id number] [place] [address] Apr, [facility] [address] [id number] [place] [address] Apr, [facility] [address] [id number] [place] [address] Apr, [facility] [address] [id number] [place] [address] 18 Apr, 2013 [facility] [address] [id number] [place] [address] 18 Apr, 2013 [facility] [address] [id number] [place] [address] 17 Apr, 2013 [facility] [address] [id number] [place] [address] Apr, [facility] [address] [id number] [place] [address] Apr, [facility] [address] [id number] [place] [address] Apr, [facility] [address] [id number] [place] [address] Apr, [facility] [address] [id number] [place] [address] Apr, [facility] [address] [id number] [place] [address] Apr, [facility] [address] [id number] [place] [address] Apr, [facility] [address] [id number] [place] [address] Apr, [facility] [address] [id number] [place] [address] Apr, [facility] [address] [id number] [place] [address] Mar, [facility] [address] [id number] [place] [address] Mar, [facility] [address] [id number] [place] [address] Mar, [facility] [address] [id number] [place] [address] 14 Mar, 2013 [facility] [address] [id number] [place] [address] Mar, [facility] [address] [id number] [place] [address] Mar, [facility] [address] [id number] [place] [address] Mar, [facility] [address] [id number] [place] [address] Mar, [facility] [address] [id number] [place] [address] Mar, [facility] [address] [id number] [place] [address] Mar, [facility] [address] [id number] [place] [address] Mar, [facility] [address] [facility] [id number] [place] [address] Feb, [facility] [address] [facility] [id number] [place] [address] Feb, [facility] [address] [id number] [place] [address] Feb, [facility] [address] [facility] [id number] [place] [address] Feb, [facility] [address] [facility] [id number] [place] [address] Feb, [facility] [address] [id number] [place] [address] Dec, [facility] [address] [id number] [place] [address] Dec, [facility] [address] [id number] [place] [address] Dec, [facility] [address] [facility] [id number] [place] [address] Dec, [facility] [address] [id number] [place] [address] Nov, [facility] [address] [id number] [place] [address] Nov, [facility] [address] [id number] [place] [address] Nov, [facility] [address] [facility] [id number] [place] [address] Nov, [facility] [address] [id number] [place] [address] Nov, [facility] [address] [facility] [place] [id number] [place] [address] Nov, [facility] [address] [id number] [place] [address] Oct, [facility] [address] [facility] [id number] [place] [address] Oct, [facility] [address] [id number] [place] [address] Oct, [facility] [address] [id number] [place] [address] Oct, [facility] [address] [id number] [place] [address] September, [facility] [address] [id number] [place] [address] September, [facility] [address] [id number] [place] [address] September, [facility] [address] [id number] [place] [address] September, [facility] [address] [id number] [place] [address] September, [facility] [address] [id number] [place] [address] September, [facility] [address] [id number] [place] [address] September, [facility] [address] [id number] [place] [address] September, [facility] [address] [id number] [place] [address] Aug, [facility] [address] [id number] [place] [address] Aug, [facility] [address] [id number] [place] [address] Jul, [facility] [address] [id number] [place] [address] Jun, [facility] [address] [id number] [place] [address] May, [facility] [address] [id number] [place] [address] May, [facility] [address] [id number] [place] [address] May, [facility] [address] [id number] [place] [address] May, [facility] [address] [id number] [place] [address] Apr, [facility] [address] [id number] [place] [address] Apr, [facility] [address] [id number] [place] [address] Apr, [facility] [address] [id number] [place] [address] Apr, [facility] [address] [id number] [place] [address] Apr, [facility] [address] [id number] [place] [address] Apr, [facility] [address] [id number] [place] [address] Apr, [facility] [address] [id number] [place] [address] Apr, [facility] [address] [id number] [place] [address] Apr, [facility] [address] [id number] [place] [address] 30 Mar, 2012 [facility] [address] [id number] [place] [address] 30 Mar, 2012 [facility] [address] [id number] [place] [address] Mar, [facility] [address] [id number] [place] [address] 27 Mar, 2012 [facility] [address] [id number] [place] [address] 16 Mar, 2012 [facility] [address] [id number] [place] [address] 16 Mar, 2012 [facility] [address] [id number] [place] [address] 16 Mar, 2012 [facility] [address] [id number] [place] [address] 16 Mar, 2012 [facility] [address] [id number] [place] [address] 16 Mar, 2012 [facility] [address] [id number] [place] [address] 16 Mar, 2012 [facility] [address] [id number] [place] [address] 14 Mar, 2012 [facility] [address] [id number] [place] [address] 14 Mar, 2012 [facility] [address] [id number] [place] [address] 13 Mar, 2012 [facility] [address] [id number] [place] [address] 13 Mar, 2012 [facility] [address] [id number] [place] [address] 06 Mar, 2012 [facility] [address] [id number] [place] [address] Mar, [facility] [address] [id number] [place] [address] Mar, [facility] [address] [id number] [place] [address] Mar, [facility] [address] [id number] [place] [address] Mar, [facility] [address] [id number] [place] [address] Feb, [facility] [address] [id number] [place] [address] Feb, [facility] [address] [id number] [place] [address] Feb, [facility] [id number] [place] [address] Feb, [facility] [address] [id number] [place] [address] Jan, [facility] [address] [id number] [place] [address] Jan, [facility] [address] [id number] [place] [address] Dec, [facility] [address] [id number] [place] [address] Dec, [facility] [address] [id number] [place] [address] Dec, [facility] [address] [id number] [place] [address] Nov, [facility] [address] [id number] [place] [address] Nov, [facility] [address] [id number] [place] [address] Oct, [facility] [address] [id number] [place] [address] Oct, [facility] [address] [id number] [place] [address] September, [facility] [address] [id number] [place] [address] September, [facility] [address] [id number] [place] [address] September, [facility] [address] [id number] [place] [address] September, [facility] [address] [id number] [place] [address] Aug, [facility] [address] [id number] [place] [address] Jul, [facility] [address] [id number] [place] [address] Jul, [facility] [address] [id number] [place] [address] Jun, [facility] [address] [id number] [place] [address] Jun, [facility] [address] [id number] [place] [address] Jun, [facility] [address] [id number] [place] [address] May, [facility] [address] [id number] [place] [address] May, [facility] [address] [id number] [place] [address] May, [facility] [address] [id number] [place] [address] May, [facility] [address] [id number] [place] [address] Apr, [facility] [address] [id number] [place] [address] Apr, [facility] [address] [id number] [place] [address] Apr, [facility] [address] [id number] [place] [address] Mar, [facility] [address] [id number] [place] [address] Mar, [facility] [address] [id number] [place] [address] Mar, [facility] [address] [id number] [place] [address] Mar, [facility] [address] [id number] [place] [address] Mar, [facility] [address] [id number] [place] [address] Feb, [facility] [address] [id number] [place] [address] 25 Feb, 2011 [facility] [address] [id number] [place] [address] 17 Feb, 2011 [facility] [address] [id number] [place] [address] Feb, [facility] [address] [id number] [place] [address] Feb, [facility] [address] [id number] [place] [address] Feb, [facility] [address] [id number] [place] [address] Feb, [facility] [address] [id number] [place] [address] 28 Apr, 2010 [facility] [address] [id number] [place] [address] 23 Apr, 2010 [facility] [address] [id number] [place] [address] 15 Apr, 2010 [facility] [address] [id number] [place] [address] 15 Apr, 2010 [facility] [address] [id number] [place] [address] 02 Apr, 2010 [facility] [address] [id number] [place] [address] 02 Apr, 2010 [facility] [address] [id number] [place] [address] 18 Mar, 2010 [facility] [address] [id number] [place] [address] 18 Mar, 2010 [facility] [address] [id number] [place] [address] 17 Mar, 2010 [facility] [address] [id number] [place] [address] 16 Mar, 2010 [facility] [address] [id number] [place] [address] 10 Mar, 2010 [facility] [address] [id number] [place] [address] Mar, [facility] [address] [id number] [place] [address] Mar, [facility] [address] [id number] [place] [address] Mar, [facility] [address] [id number] [place] [address] Feb, [facility] [address] [id number] [place] [address] Feb, [facility] [address] [id number] [place] [address] Dec, [facility] [address] [id number] [place] [address] Jun, [facility] [address] [id number] [place] [address] Jun, [facility] [address] [id number] [place] [address] May, [facility] [address] [id number] [place] [address] 26 Feb, 2009 [facility] [address] [id number] [place] [address] 19 Feb, 2009 [facility] [address] [id number] [place] [address] 19 Feb, 2009 [facility] [address] [id number] [place] [address] 15 Feb, 2009 [facility] [address] [id number] [place] [address] 15 Feb, 2009 [facility] [address] [id number] [place] [address] 13 Feb, 2009 [facility] [address] [id number] [place] [address] 13 Feb, 2009 [facility] [address] [id number] [place] [address] Jul, [facility] [address] [facility] [id number] [place] [address] Jun, IMMUNIZATIONS No Known Immunizations SOCIAL HISTORY [...] Hospitalization History Rt hand post op infection-[facility] 7 Hospitalization History cellulitus Right elbow-[facility] 12/09/16
--- OUTSIDE RECORDS SUMMARY | 2019-07-25 06:34 | XMS REPORT ---
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 [facility] [place] [facility] [address] [id number] [place] [address] Mar, [facility] [place] [facility] [address] [id number] [place] [address] Mar, [facility] [place] [facility] [address] [id number] [place] [address] Mar, [facility] [place] [facility] [address] [id number] [place] [address] Feb, [facility] [place] [facility] [address] [id number] [place] [address] 16 Feb, 2014 [facility] [place] [facility] [address] [id number] [place] [address] 18 Jan, 2014 [facility] [place] [facility] [address] [id number] [place] [address] 18 Jan, 2014 [facility] [place] [facility] [address] [id number] [place] [address] 18 Jan, 2014 [facility] [place] [facility] [address] [id number] [place] [address] 18 Jan, 2014 [facility] [place] [facility] [address] [id number] [place] [address] 12 Jan, 2013 [facility] [place] [facility] [address] [id number] [place] [address] 12 Jan, 2013 [facility] [place] [facility] [address] [facility] [id number] [place] [id number] 09 Jan, 2013 [facility] [place] [facility] [address] [id number] [place] [address] 09 Jan, 2013 [facility] [place] [facility] [address] [id number] [place] [address] Jan, [facility] [place] [facility] [address] [id number] [facility] [address] Jan, [facility] [place] [facility] [address] [facility] [id number] [place] [address] Dec, [facility] [place] [facility] [address] [facility] [id number] [facility] [address] Dec, [facility] [place] [facility] [address] [id number] [place] [address] Dec, [facility] [place] [facility] [address] [id number] [place] [address] Dec, [facility] [place] [facility] [address] [id number] [place] [address] Dec, [facility] [place] [facility] [address] [id number] [facility] [address] Dec, [facility] [place] [facility] [address] [id number] [facility] [address] Dec, [facility] [place] [facility] [address] [facility] [id number] [facility] [address] Dec, [facility] [place] [facility] [address] [facility] [id number] [facility] [address] Dec, [facility] [place] [facility] [address] [facility] [id number] [place] [address] Nov, [facility] [place] [facility] [address] [id number] [place] [address] Nov, [facility] [place] [facility] [address] [facility] [id number] [facility] [address] Nov, [facility] [place] [facility] [address] [id number] [place] [address] Nov, [facility] [place] [facility] [address] [facility] [id number] [place] [address] Nov, [facility] [place] [facility] [address] [id number] [place] [address] Nov, [facility] [place] [facility] [address] [id number] [place] [address] Nov, 2013 [facility] [place] [facility] [address] [id number] [place] [address] Nov, 2013 [facility] [place] [facility] [address] [id number] [place] [address] Nov, 2013 [facility] [place] [facility] [address] [id number] [place] [address] Nov, 2013 [facility] [place] [facility] [address] [id number] [place] [address] Nov, 2013 [facility] [place] [facility] [address] [facility] [id number] [place] [address] Nov, 2013 [facility] [place] [facility] [address] [id number] [place] [address] Nov, 2013 [facility] [place] [facility] [address] [id number] [place] [address] Nov, [facility] [place] [facility] [address] [id number] [place] [address] Nov, 2013 [facility] [place] [facility] [address] [id number] [place] [address] Oct, [facility] [place] [facility] [address] [id number] [place] [address] Oct, [facility] [place] [facility] [address] [id number] [place] [address] Oct, [facility] [place] [facility] [address] [id number] [place] [address] Oct, [facility] [place] [facility] [address] [id number] [place] [address] Oct, [facility] [place] [facility] [address] [id number] [place] [address] Oct, [facility] [place] [facility] [address] [id number] [place] [address] Oct, [facility] [place] [facility] [address] [id number] [place] [address] Oct, [facility] [place] [facility] [address] [id number] [place] [address] Oct, [facility] [place] [facility] [address] [facility] [id number] [place] [address] Oct, [facility] [place] [facility] [address] [id number] [place] [address] Oct, [facility] [place] [facility] [address] [id number] [place] [address] Oct, [facility] [place] [facility] [address] [facility] [id number] [place] [address] Oct, [facility] [place] [facility] [address] [id number] [place] [address] Oct, [facility] [place] [facility] [address] [id number] [place] [address] September, [facility] [place] [facility] [address] [id number] [place] [address] September, [facility] [place] [facility] [address] [id number] [place] [address] September, [facility] [place] [facility] [address] [id number] [place] [address] September, [facility] [place] [facility] [address] [id number] [place] [address] September, [facility] [place] [facility] [address] [id number] [place] [address] September, [facility] [place] [facility] [address] [id number] [place] [address] September, [facility] [place] [facility] [address] [facility] [id number] [place] [address] September, [facility] [place] [facility] [address] [id number] [place] [address] September, [facility] [place] [facility] [address] [id number] [place] [address] September, [facility] [place] [facility] [address] [id number] [place] [address] September, [facility] [place] [facility] [address] [facility] [id number] [facility] [address] September, [facility] [place] [facility] [address] [facility] [id number] [facility] [address] September, [facility] [place] [facility] [address] [id number] [facility] [address] Aug, [facility] [place] [facility] [address] [facility] [id number] [facility] [address] Aug, [facility] [place] [facility] [address] [facility] [id number] [facility] [address] Aug, [facility] [place] [facility] [address] [facility] [id number] [place] [address] Aug, [facility] [place] [facility] [address] [id number] [place] [address] Aug, [facility] [place] [facility] [address] [id number] [place] [address] Aug, [facility] [place] [facility] [address] [id number] [place] [address] Aug, [facility] [place] [facility] [address] [id number] [place] [address] Aug, [facility] [place] [facility] [address] [id number] [place] [address] Aug, [facility] [place] [facility] [address] [id number] [place] [address] Aug, [facility] [place] [facility] [address] [facility] [id number] [place] [address] Jul, [facility] [place] [facility] [address] [id number] [place] [address] Jul, [facility] [place] [facility] [address] [id number] [place] [address] Jul, [facility] [place] [facility] [address] [id number] [place] [address] Jul, [facility] [place] [facility] [address] [id number] [place] [address] Jul, [facility] [place] [facility] [address] [facility] [id number] [place] [address] Jul, [facility] [place] [facility] [address] [id number] [place] [address] Jul, [facility] [place] [facility] [address] [id number] [place] [address] Jul, [facility] [place] [facility] [address] [id number] [place] [address] Jun, [facility] [place] [facility] [address] [id number] [place] [address] Jun, [facility] [place] [facility] [address] [id number] [place] [address] 14 Jun, 2013 [facility] [place] [facility] [address] [id number] [place] [address] 14 Jun, 2013 [facility] [place] [facility] [address] [id number] [place] [address] Jun, [facility] [place] [facility] [address] [id number] [place] [address] Jun, [facility] [place] [facility] [address] [id number] [place] [address] 06 Jun, 2013 [facility] [place] [facility] [address] [id number] [place] [address] Jun, [facility] [place] [facility] [address] [id number] [place] [address] Jun, [facility] [address] [id number] [place] [address] Jun, [facility] [address] [id number] [place] [address] Jun, [facility] [address] [id number] [place] [address] Jun, [facility] [address] [id number] [place] [address] Jun, [facility] [address] [id number] [place] [address] Jun, [facility] [address] [id number] [place] [address] May, [facility] [address] [id number] [place] [address] May, [facility] [address] [id number] [place] [address] May, [facility] [address] [id number] [place] [address] May, [facility] [address] [id number] [place] [address] May, [facility] [address] [id number] [place] [address] May, [facility] [address] [id number] [place] [address] May, [facility] [address] [id number] [place] [address] May, [facility] [address] [id number] [place] [address] May, [facility] [address] [id number] [place] [address] May, [facility] [address] [id number] [place] [address] May, [facility] [address] [id number] [place] [address] May, [facility] [address] [id number] [place] [address] May, [facility] [address] [id number] [place] [address] May, [facility] [address] [id number] [place] [address] May, [facility] [address] [id number] [place] [address] May, [facility] [address] [id number] [place] [address] May, [facility] [address] [id number] [place] [address] May, [facility] [address] [id number] [place] [address] May, [facility] [address] [id number] [place] [address] May, [facility] [address] [id number] [place] [address] Apr, [facility] [address] [id number] [place] [address] Apr, [facility] [address] [id number] [place] [address] Apr, [facility] [address] [id number] [place] [address] Apr, [facility] [address] [id number] [place] [address] Apr, [facility] [address] [id number] [place] [address] Apr, [facility] [address] [id number] [place] [address] 18 Apr, 2013 [facility] [address] [id number] [place] [address] 18 Apr, 2013 [facility] [address] [id number] [place] [address] 17 Apr, 2013 [facility] [address] [id number] [place] [address] Apr, [facility] [address] [id number] [place] [address] Apr, [facility] [address] [id number] [place] [address] Apr, [facility] [address] [id number] [place] [address] Apr, [facility] [address] [id number] [place] [address] Apr, [facility] [address] [id number] [place] [address] Apr, [facility] [address] [id number] [place] [address] Apr, [facility] [address] [id number] [place] [address] Apr, [facility] [address] [id number] [place] [address] Apr, [facility] [address] [id number] [place] [address] Mar, [facility] [address] [facility] [id number] [place] [address] Mar, [facility] [address] [id number] [place] [address] Mar, [facility] [address] [id number] [place] [address] 14 Mar, 2013 [facility] [address] [id number] [place] [address] Mar, [facility] [address] [id number] [place] [address] Mar, [facility] [address] [id number] [place] [address] Mar, [facility] [address] [id number] [place] [address] Mar, [facility] [address] [id number] [place] [address] Mar, [facility] [address] [id number] [place] [address] Mar, [facility] [address] [id number] [place] [address] Mar, [facility] [address] [facility] [id number] [facility] [place] [address] Feb, [facility] [address] [facility] [id number] [facility] [place] [address] Feb, [facility] [address] [id number] [facility] [place] [address] Feb, [facility] [address] [facility] [id number] [facility] [address] Feb, [facility] [address] [facility] [id number] [facility] [place] [address] Feb, [facility] [address] [id number] [facility] [address] Dec, [facility] [address] [id number] [place] [address] Dec, [facility] [address] [id number] [place] [address] Dec, [facility] [address] [facility] [id number] [facility] [address] Dec, [facility] [address] [id number] [facility] [place] [address] Nov, [facility] [address] [id number] [place] [address] Nov, [facility] [address] [id number] [place] [address] Nov, [facility] [address] [facility] [id number] [facility] [place] [address] Nov, [facility] [address] [id number] [place] [address] Nov, [facility] [address] [facility] [id number] [facility] [address] Nov, [facility] [address] [id number] [facility] [place] [address] Oct, [facility] [address] [facility] [id number] [facility] [address] Oct, [facility] [address] [id number] [place] [address] Oct, [facility] [address] [id number] [place] [address] Oct, [facility] [address] [id number] [place] [address] September, [facility] [address] [id number] [place] [address] September, [facility] [address] [id number] [place] [address] September, [facility] [address] [id number] [place] [address] September, [facility] [address] [id number] [place] [address] September, [facility] [address] [id number] [place] [address] September, [facility] [address] [id number] [place] [address] September, [facility] [address] [id number] [place] [address] September, [facility] [address] [id number] [place] [address] Aug, [facility] [address] [id number] [place] [address] Aug, [facility] [address] [id number] [place] [address] Jul, [facility] [address] [id number] [place] [address] Jun, [facility] [address] [id number] [place] [address] May, [facility] [address] [id number] [place] [address] May, [facility] [address] [id number] [place] [address] May, [facility] [address] [id number] [place] [address] May, [facility] [address] [id number] [place] [address] Apr, [facility] [address] [id number] [place] [address] Apr, [facility] [address] [id number] [place] [address] Apr, [facility] [address] [id number] [place] [address] Apr, [facility] [address] [id number] [place] [address] Apr, [facility] [address] [id number] [place] [address] Apr, [facility] [address] [id number] [place] [address] Apr, [facility] [address] [id number] [place] [address] Apr, [facility] [address] [id number] [place] [address] Apr, [facility] [address] [id number] [place] [address] 30 Mar, 2012 [facility] [address] [id number] [place] [address] 30 Mar, 2012 [facility] [address] [id number] [place] [address] Mar, [facility] [address] [id number] [place] [address] 27 Mar, 2012 [facility] [address] [id number] [place] [address] 16 Mar, 2012 [facility] [address] [id number] [place] [address] 16 Mar, 2012 [facility] [address] [id number] [place] [address] 16 Mar, 2012 [facility] [address] [id number] [place] [address] 16 Mar, 2012 [facility] [address] [id number] [place] [address] 16 Mar, 2012 [facility] [address] [id number] [place] [address] 16 Mar, 2012 [facility] [address] [id number] [place] [address] 14 Mar, 2012 [facility] [address] [id number] [place] [address] 14 Mar, 2012 [facility] [address] [id number] [place] [address] 13 Mar, 2012 [facility] [address] [id number] [place] [address] 13 Mar, 2012 [facility] [address] [id number] [place] [address] 06 Mar, 2012 [facility] [address] [id number] [place] [address] Mar, [facility] [address] [id number] [place] [address] Mar, [facility] [address] [id number] [place] [address] Mar, [facility] [address] [id number] [place] [address] Mar, [facility] [address] [id number] [place] [address] Feb, [facility] [address] [id number] [place] [address] Feb, [facility] [address] [id number] [place] [address] Feb, [facility] [address] [id number] [place] [address] Feb, [facility] [address] [id number] [place] [address] Jan, [facility] [address] [id number] [place] [address] Jan, [facility] [address] [id number] [place] [address] Dec, [facility] [address] [id number] [place] [address] Dec, [facility] [address] [id number] [place] [address] Dec, [facility] [address] [id number] [place] [address] Nov, [facility] [address] [id number] [place] [address] Nov, [facility] [address] [id number] [place] [address] Oct, [facility] [address] [id number] [place] [address] Oct, [facility] [address] [id number] [place] [address] September, [facility] [address] [id number] [place] [address] September, [facility] [address] [id number] [place] [address] September, [facility] [address] [id number] [place] [address] September, [facility] [address] [id number] [place] [address] Aug, [facility] [address] [id number] [place] [address] Jul, [facility] [address] [id number] [place] [address] Jul, [facility] [address] [id number] [place] [address] Jun, [facility] [address] [id number] [place] [address] Jun, [facility] [address] [id number] [place] [address] Jun, [facility] [address] [id number] [place] [address] May, [facility] [address] [id number] [place] [address] May, [facility] [address] [id number] [place] [address] May, [facility] [address] [id number] [place] [address] May, [facility] [address] [id number] [place] [address] Apr, [facility] [address] [id number] [place] [address] Apr, [facility] [address] [id number] [place] [address] Apr, [facility] [address] [id number] [place] [address] Mar, [facility] [address] [id number] [place] [address] Mar, [facility] [address] [id number] [place] [address] Mar, [facility] [address] [id number] [place] [address] Mar, [facility] [address] [id number] [place] [address] Mar, [facility] [address] [id number] [place] [address] Feb, [facility] [address] [id number] [place] [address] 25 Feb, 2011 [facility] [address] [id number] [place] [address] 17 Feb, 2011 [facility] [address] [id number] [place] [address] Feb, [facility] [address] [id number] [place] [address] Feb, [facility] [address] [id number] [place] [address] Feb, [facility] [address] [id number] [place] [address] Feb, [facility] [address] [id number] [place] [address] 28 Apr, 2010 [facility] [address] [id number] [place] [address] 23 Apr, 2010 [facility] [address] [id number] [place] [address] 15 Apr, 2010 [facility] [address] [id number] [place] [address] 15 Apr, 2010 [facility] [address] [id number] [place] [address] 02 Apr, 2010 [facility] [address] [id number] [place] [address] 02 Apr, 2010 [facility] [address] [id number] [place] [address] 18 Mar, 2010 [facility] [address] [id number] [place] [address] 18 Mar, 2010 [facility] [address] [id number] [place] [address] 17 Mar, 2010 [facility] [address] [id number] [place] [address] 16 Mar, 2010 [facility] [address] [id number] [place] [address] 10 Mar, 2010 [facility] [address] [id number] [place] [address] Mar, [facility] [address] [id number] [place] [address] Mar, [facility] [address] [id number] [place] [address] Mar, [facility] [address] [id number] [place] [address] Feb, [facility] [address] [id number] [place] [address] Feb, [facility] [address] [id number] [place] [address] Dec, [facility] [address] [id number] [place] [address] Jun, [facility] [address] [id number] [place] [address] Jun, [facility] [address] [id number] [place] [address] May, [facility] [address] [id number] [place] [address] 26 Feb, 2009 [facility] [address] [id number] [place] [address] 19 Feb, 2009 [facility] [address] [id number] [place] [address] 19 Feb, 2009 [facility] [address] [id number] [place] [address] 15 Feb, 2009 [facility] [address] [id number] [place] [address] 15 Feb, 2009 [facility] [address] [id number] [place] [address] 13 Feb, 2009 [facility] [address] [id number] [place] [address] 13 Feb, 2009 [facility] [address] [id number] [place] [address] Jul, [facility] [address] [facility] [id number] [place] [address] Jun, IMMUNIZATIONS No Known Immunizations SOCIAL HISTORY [...] 08/2014 Hospitalization History Rt hand post op infection-[facility] 7 Hospitalization History cellulitus Right elbow-[facility] 12/09/16
--- OUTSIDE RECORDS SUMMARY | 2019-07-25 06:35 | XMS REPORT ---
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 [place] [facility] [address] [id number] [place] [address] Mar, [facility] [place] [facility] [address] [id number] [place] [address] Feb, [facility] [place] [facility] [address] [id number] [place] [address] 16 Feb, 2014 [facility] [place] [facility] [address] [id number] [place] [address] 18 Jan, 2014 [facility] [place] [facility] [address] [id number] [place] [address] 18 Jan, 2014 [facility] [place] [facility] [address] [id number] [place] [address] 18 Jan, 2014 [facility] [place] [facility] [address] [id number] [place] [address] 18 Jan, 2014 [facility] [place] [facility] [address] [id number] [place] [address] 12 Jan, 2013 [facility] [place] [facility] [address] [id number] [place] [address] 12 Jan, 2013 [facility] [place] [facility] [address] [facility] [id number] [place] [id number] 09 Jan, 2013 [facility] [place] [facility] [address] [id number] [place] [address] 09 Jan, 2013 [facility] [place] [facility] [address] [id number] [place] [address] Jan, [facility] [place] [facility] [address] [id number] [place] [address] Jan, [facility] [place] [facility] [address] [facility] [id number] [place] [address] Dec, [facility] [place] [facility] [address] [facility] [id number] [place] [address] Dec, [facility] [place] [facility] [address] [id number] [place] [address] Dec, [facility] [place] [facility] [address] [id number] [place] [address] Dec, [facility] [place] [facility] [address] [id number] [place] [address] Dec, [facility] [place] [facility] [address] [id number] [place] [address] Dec, [facility] [place] [facility] [address] [id number] [place] [address] Dec, [facility] [place] [facility] [address] [facility] [id number] [place] [address] Dec, [facility] [place] [facility] [address] [facility] [id number] [place] [address] Dec, [facility] [place] [facility] [address] [facility] [id number] [place] [address] Nov, [facility] [place] [facility] [address] [id number] [place] [address] Nov, [facility] [place] [facility] [address] [facility] [id number] [place] [address] Nov, [facility] [place] [facility] [address] [id number] [place] [address] Nov, [facility] [place] [facility] [address] [facility] [id number] [place] [address] Nov, [facility] [place] [facility] [address] [id number] [place] [address] Nov, [facility] [place] [facility] [address] [id number] [place] [address] Nov, 2013 [facility] [place] [facility] [address] [id number] [place] [address] Nov, 2013 [facility] [place] [facility] [address] [id number] [place] [address] Nov, 2013 [facility] [place] [facility] [address] [id number] [place] [address] Nov, 2013 [facility] [place] [facility] [address] [id number] [place] [address] Nov, 2013 [facility] [place] [facility] [address] [facility] [id number] [place] [address] Nov, 2013 [facility] [place] [facility] [address] [id number] [place] [address] Nov, 2013 [facility] [place] [facility] [address] [id number] [place] [address] Nov, [facility] [place] [facility] [address] [id number] [place] [address] Nov, 2013 [facility] [place] [facility] [address] [id number] [place] [address] Oct, [facility] [place] [facility] [address] [id number] [place] [address] Oct, [facility] [place] [facility] [address] [id number] [place] [address] Oct, [facility] [place] [facility] [address] [id number] [place] [address] Oct, [facility] [place] [facility] [address] [id number] [place] [address] Oct, [facility] [place] [facility] [address] [id number] [place] [address] Oct, [facility] [place] [facility] [address] [id number] [place] [address] Oct, [facility] [place] [facility] [address] [id number] [place] [address] Oct, [facility] [place] [facility] [address] [id number] [place] [address] Oct, [facility] [place] [facility] [address] [facility] [id number] [place] [address] Oct, [facility] [place] [facility] [address] [id number] [place] [address] Oct, [facility] [place] [facility] [address] [id number] [place] [address] Oct, [facility] [place] [facility] [address] [facility] [id number] [place] [address] Oct, [facility] [place] [facility] [address] [id number] [place] [address] Oct, [facility] [place] [facility] [address] [id number] [place] [address] September, [facility] [place] [facility] [address] [id number] [place] [address] September, [facility] [place] [facility] [address] [id number] [place] [address] September, [facility] [place] [facility] [address] [id number] [place] [address] September, [facility] [place] [facility] [address] [id number] [place] [address] September, [facility] [place] [facility] [address] [id number] [place] [address] September, [facility] [place] [facility] [address] [id number] [place] [address] September, [facility] [place] [facility] [address] [facility] [id number] [place] [address] September, [facility] [place] [facility] [address] [id number] [place] [address] September, [facility] [place] [facility] [address] [id number] [place] [address] September, [facility] [place] [facility] [address] [id number] [place] [address] September, [facility] [place] [facility] [address] [facility] [id number] [place] [address] September, [facility] [place] [facility] [address] [facility] [id number] [place] [address] September, [facility] [place] [facility] [address] [id number] [place] [address] Aug, [facility] [place] [facility] [address] [facility] [id number] [place] [address] Aug, [facility] [place] [facility] [address] [facility] [id number] [place] [address] Aug, [facility] [place] [facility] [address] [facility] [id number] [place] [address] Aug, [facility] [place] [facility] [address] [id number] [place] [address] Aug, [facility] [place] [facility] [address] [id number] [place] [address] Aug, [facility] [place] [facility] [address] [id number] [place] [address] Aug, [facility] [place] [facility] [address] [id number] [place] [address] Aug, [facility] [place] [facility] [address] [id number] [place] [address] Aug, [facility] [place] [facility] [address] [id number] [place] [address] Aug, [facility] [place] [facility] [address] [facility] [id number] [place] [address] Jul, [facility] [place] [facility] [address] [id number] [place] [address] Jul, [facility] [place] [facility] [address] [id number] [place] [address] Jul, [facility] [place] [facility] [address] [id number] [place] [address] Jul, [facility] [place] [facility] [address] [id number] [place] [address] Jul, [facility] [place] [facility] [address] [facility] [id number] [place] [address] Jul, [facility] [place] [facility] [address] [id number] [place] [address] Jul, [facility] [place] [facility] [address] [id number] [place] [address] Jul, [facility] [place] [facility] [address] [id number] [place] [address] Jun, [facility] [place] [facility] [address] [id number] [place] [address] Jun, [facility] [place] [facility] [address] [id number] [place] [address] 14 Jun, 2013 [facility] [place] [facility] [address] [id number] [place] [address] 14 Jun, 2013 [facility] [place] [facility] [address] [id number] [place] [address] Jun, [facility] [place] [facility] [address] [id number] [place] [address] Jun, [facility] [place] [facility] [address] [id number] [place] [address] 06 Jun, 2013 [facility] [place] [facility] [address] [id number] [place] [address] Jun, [facility] [place] [facility] [address] [id number] [place] [address] Jun, [facility] [place] [facility] [address] [id number] [place] [address] Jun, [facility] [place] [facility] [address] [id number] [place] [address] Jun, [facility] [place] [facility] [address] [id number] [place] [address] Jun, [facility] [place] [facility] [address] [id number] [place] [address] Jun, [facility] [place] [facility] [address] [id number] [place] [address] Jun, [facility] [place] [facility] [address] [id number] [place] [address] May, [facility] [place] [facility] [address] [id number] [place] [address] May, [facility] [place] [facility] [address] [id number] [place] [address] May, [facility] [place] [facility] [address] [id number] [place] [address] May, [facility] [place] [facility] [address] [id number] [place] [address] May, [facility] [place] [facility] [address] [id number] [place] [address] May, [facility] [place] [facility] [address] [id number] [place] [address] May, [facility] [place] [facility] [address] [id number] [place] [address] May, [facility] [place] [facility] [address] [id number] [place] [address] May, [facility] [place] [facility] [address] [id number] [place] [address] May, [facility] [place] [facility] [address] [id number] [place] [address] May, [facility] [address] [id number] [place] [address] May, [facility] [address] [id number] [place] [address] May, [facility] [address] [id number] [place] [address] May, [facility] [address] [id number] [place] [address] May, [facility] [address] [id number] [place] [address] May, [facility] [address] [id number] [place] [address] May, [facility] [address] [id number] [place] [address] May, [facility] [address] [id number] [place] [address] May, [facility] [address] [id number] [place] [address] May, [facility] [address] [id number] [place] [address] Apr, [facility] [address] [id number] [place] [address] Apr, [facility] [address] [id number] [place] [address] Apr, [facility] [address] [id number] [place] [address] Apr, [facility] [address] [id number] [place] [address] Apr, [facility] [address] [id number] [place] [address] Apr, [facility] [address] [id number] [place] [address] 18 Apr, 2013 [facility] [address] [id number] [place] [address] 18 Apr, 2013 [facility] [address] [id number] [place] [address] 17 Apr, 2013 [facility] [address] [id number] [place] [address] Apr, [facility] [address] [id number] [place] [address] Apr, [facility] [address] [id number] [place] [address] Apr, [facility] [address] [id number] [place] [address] Apr, [facility] [address] [id number] [place] [address] Apr, [facility] [address] [id number] [place] [address] Apr, [facility] [address] [id number] [place] [address] Apr, [facility] [address] [id number] [place] [address] Apr, [facility] [address] [id number] [place] [address] Apr, [facility] [address] [id number] [place] [address] Mar, [facility] [address] [id number] [place] [address] Mar, [facility] [address] [id number] [place] [address] Mar, [facility] [address] [id number] [place] [address] 14 Mar, 2013 [facility] [address] [id number] [place] [address] Mar, [facility] [address] [id number] [place] [address] Mar, [facility] [address] [id number] [place] [address] Mar, [facility] [address] [id number] [place] [address] Mar, [facility] [address] [id number] [place] [address] Mar, [facility] [address] [id number] [place] [address] Mar, [facility] [address] [id number] [place] [address] Mar, [facility] [address] [facility] [id number] [place] [address] Feb, [facility] [address] [facility] [id number] [place] [address] Feb, [facility] [address] [id number] [place] [address] Feb, [facility] [address] [facility] [id number] [place] [address] Feb, [facility] [address] [facility] [id number] [place] [address] Feb, [facility] [address] [id number] [place] [address] Dec, [facility] [address] [id number] [place] [address] Dec, [facility] [address] [id number] [place] [address] Dec, [facility] [address] [facility] [id number] [place] [address] Dec, [facility] [address] [id number] [place] [address] Nov, [facility] [address] [id number] [place] [address] Nov, [facility] [address] [id number] [place] [address] Nov, [facility] [address] [facility] [id number] [place] [address] Nov, [facility] [address] [id number] [place] [address] Nov, [facility] [address] [facility] [id number] [place] [address] Nov, [facility] [address] [id number] [facility] [place] [address] Oct, [facility] [address] [facility] [id number] [place] [address] Oct, [facility] [address] [id number] [place] [address] Oct, [facility] [address] [id number] [place] [address] Oct, [facility] [address] [id number] [place] [address] September, [facility] [address] [id number] [place] [address] September, [facility] [address] [id number] [place] [address] September, [facility] [address] [id number] [place] [address] September, [facility] [address] [id number] [place] [address] September, [facility] [address] [id number] [place] [address] September, [facility] [address] [id number] [place] [address] September, [facility] [address] [id number] [place] [address] September, [facility] [address] [id number] [place] [address] Aug, [facility] [address] [id number] [place] [address] Aug, [facility] [address] [id number] [place] [address] Jul, [facility] [address] [id number] [place] [address] Jun, [facility] [address] [id number] [place] [address] May, [facility] [address] [id number] [place] [address] May, [facility] [address] [id number] [place] [address] May, [facility] [address] [id number] [place] [address] May, [facility] [address] [id number] [place] [address] Apr, [facility] [address] [id number] [place] [address] Apr, [facility] [address] [id number] [place] [address] Apr, [facility] [address] [id number] [place] [address] Apr, [facility] [address] [id number] [place] [address] Apr, [facility] [address] [id number] [place] [address] Apr, [facility] [address] [id number] [place] [address] Apr, [facility] [address] [id number] [place] [address] Apr, [facility] [address] [id number] [place] [address] Apr, [facility] [address] [id number] [place] [address] 30 Mar, 2012 [facility] [address] [id number] [place] [address] 30 Mar, 2012 [facility] [address] [id number] [place] [address] Mar, [facility] [address] [id number] [place] [address] 27 Mar, 2012 [facility] [address] [id number] [place] [address] 16 Mar, 2012 [facility] [address] [id number] [place] [address] 16 Mar, 2012 [facility] [address] [id number] [place] [address] 16 Mar, 2012 [facility] [address] [id number] [place] [address] 16 Mar, 2012 [facility] [address] [id number] [place] [address] 16 Mar, 2012 [facility] [address] [id number] [place] [address] 16 Mar, 2012 [facility] [address] [id number] [place] [address] 14 Mar, 2012 [facility] [address] [id number] [place] [address] 14 Mar, 2012 [facility] [address] [id number] [place] [address] 13 Mar, 2012 [facility] [address] [id number] [place] [address] 13 Mar, 2012 [facility] [address] [id number] [place] [address] 06 Mar, 2012 [facility] [address] [id number] [place] [address] Mar, [facility] [address] [id number] [place] [address] Mar, [facility] [address] [id number] [place] [address] Mar, [facility] [address] [id number] [place] [address] Mar, [facility] [address] [id number] [place] [address] Feb, [facility] [address] [id number] [place] [address] Feb, [facility] [address] [id number] [place] [address] Feb, [facility] [address] [id number] [place] [address] Feb, [facility] [address] [id number] [place] [address] Jan, [facility] [address] [id number] [place] [address] Jan, [facility] [address] [id number] [place] [address] Dec, [facility] [address] [id number] [place] [address] Dec, [facility] [address] [id number] [place] [address] Dec, [facility] [address] [id number] [place] [address] Nov, [facility] [address] [id number] [place] [address] Nov, [facility] [address] [id number] [place] [address] Oct, [facility] [address] [id number] [place] [address] Oct, [facility] [address] [id number] [place] [address] September, [facility] [address] [id number] [place] [address] September, [facility] [address] [id number] [place] [address] September, [facility] [address] [id number] [place] [address] September, [facility] [address] [id number] [place] [address] Aug, [facility] [address] [id number] [place] [address] Jul, [facility] [address] [id number] [place] [address] Jul, [facility] [address] [id number] [place] [address] Jun, [facility] [address] [id number] [place] [address] Jun, [facility] [address] [id number] [place] [address] Jun, [facility] [address] [id number] [place] [address] May, [facility] [address] [id number] [place] [address] May, [facility] [address] [id number] [place] [address] May, [facility] [address] [id number] [place] [address] May, [facility] [address] [id number] [place] [address] Apr, [facility] [address] [id number] [place] [address] Apr, [facility] [address] [id number] [place] [address] Apr, [facility] [address] [id number] [place] [address] Mar, [facility] [address] [id number] [place] [address] Mar, [facility] [address] [id number] [place] [address] Mar, [facility] [address] [id number] [place] [address] Mar, [facility] [address] [id number] [place] [address] Mar, [facility] [address] [id number] [place] [address] Feb, [facility] [address] [id number] [place] [address] 25 Feb, 2011 [facility] [address] [id number] [place] [address] 17 Feb, 2011 [facility] [address] [id number] [place] [address] Feb, [facility] [address] [id number] [place] [address] Feb, [facility] [address] [id number] [place] [address] Feb, [facility] [address] [id number] [place] [address] Feb, [facility] [address] [id number] [place] [address] 28 Apr, 2010 [facility] [address] [id number] [place] [address] 23 Apr, 2010 [facility] [address] [id number] [place] [address] 15 Apr, 2010 [facility] [address] [id number] [place] [address] 15 Apr, 2010 [facility] [address] [id number] [place] [address] 02 Apr, 2010 [facility] [address] [id number] [place] [address] 02 Apr, 2010 [facility] [address] [id number] [place] [address] 18 Mar, 2010 [facility] [address] [id number] [place] [address] 18 Mar, 2010 [facility] [address] [id number] [place] [address] 17 Mar, 2010 [facility] [address] [id number] [place] [address] 16 Mar, 2010 [facility] [address] [id number] [place] [address] 10 Mar, 2010 [facility] [address] [id number] [place] [address] Mar, [facility] [address] [id number] [place] [address] Mar, [facility] [address] [id number] [place] [address] Mar, [facility] [address] [id number] [place] [address] Feb, [facility] [address] [id number] [place] [address] Feb, [facility] [address] [id number] [place] [address] Dec, [facility] [address] [id number] [place] [address] Jun, [facility] [address] [id number] [place] [address] Jun, [facility] [address] [id number] [place] [address] May, [facility] [address] [id number] [place] [address] 26 Feb, 2009 [facility] [address] [id number] [place] [address] 19 Feb, 2009 [facility] [address] [id number] [place] [address] 19 Feb, 2009 [facility] [address] [id number] [place] [address] 15 Feb, 2009 [facility] [address] [id number] [place] [address] 15 Feb, 2009 [facility] [address] [id number] [place] [address] 13 Feb, 2009 [facility] [address] [id number] [place] [address] 13 Feb, 2009 [facility] [address] [id number] [place] [address] Jul, [facility] [address] [facility] [id number] [place] [address] Jun, IMMUNIZATIONS No Known Immunizations SOCIAL HISTORY [...] Hospitalization History Rt hand post op infection-[facility] [place] 7 Hospitalization History cellulitus Right elbow-[facility] [place] 12[facility]09/16
--- OUTSIDE RECORDS SUMMARY | 2019-07-25 06:36 | XMS REPORT ---
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 [facility] [address] [id number] [place] [address] Mar, [facility] [place] [facility] [address] [id number] [place] [address] Mar, [facility] [place] [facility] [address] [id number] [place] [address] Mar, [facility] [place] [facility] [address] [id number] [place] [address] Feb, [facility] [place] [facility] [address] [id number] [place] [address] 16 Feb, 2014 [facility] [place] [facility] [address] [id number] [place] [address] 18 Jan, 2014 [facility] [place] [facility] [address] [id number] [place] [address] 18 Jan, 2014 [facility] [place] [facility] [address] [id number] [place] [address] 18 Jan, 2014 [facility] [place] [facility] [address] [id number] [place] [address] 18 Jan, 2014 [facility] [place] [facility] [address] [id number] [place] [address] 12 Jan, 2013 [facility] [place] [facility] [address] [id number] [place] [address] 12 Jan, 2013 [facility] [place] [facility] [address] [facility] [id number] [place] [id number] 09 Jan, 2013 [facility] [place] [facility] [address] [id number] [place] [address] 09 Jan, 2013 [facility] [place] [facility] [address] [id number] [place] [address] Jan, [facility] [place] [facility] [address] [id number] [facility] [address] Jan, [facility] [place] [facility] [address] [facility] [id number] [place] [address] Dec, [facility] [place] [facility] [address] [facility] [id number] [facility] [address] Dec, [facility] [place] [facility] [address] [id number] [place] [address] Dec, [facility] [place] [facility] [address] [id number] [place] [address] Dec, [facility] [place] [facility] [address] [id number] [place] [address] Dec, [facility] [place] [facility] [address] [id number] [facility] [address] Dec, [facility] [place] [facility] [address] [id number] [facility] [address] Dec, [facility] [place] [facility] [address] [facility] [id number] [facility] [address] Dec, [facility] [place] [facility] [address] [facility] [id number] [facility] [address] Dec, [facility] [place] [facility] [address] [facility] [id number] [place] [address] Nov, [facility] [place] [facility] [address] [id number] [place] [address] Nov, [facility] [place] [facility] [address] [facility] [id number] [facility] [address] Nov, [facility] [place] [facility] [address] [id number] [place] [address] Nov, [facility] [place] [facility] [address] [facility] [id number] [place] [address] Nov, [facility] [place] [facility] [address] [id number] [place] [address] Nov, [facility] [place] [facility] [address] [id number] [place] [address] Nov, 2013 [facility] [place] [facility] [address] [id number] [place] [address] Nov, 2013 [facility] [place] [facility] [address] [id number] [place] [address] Nov, 2013 [facility] [place] [facility] [address] [id number] [place] [address] Nov, 2013 [facility] [place] [facility] [address] [id number] [place] [address] Nov, 2013 [facility] [place] [facility] [address] [facility] [id number] [place] [address] Nov, 2013 [facility] [place] [facility] [address] [id number] [place] [address] Nov, 2013 [facility] [place] [facility] [address] [id number] [place] [address] Nov, [facility] [place] [facility] [address] [id number] [place] [address] Nov, 2013 [facility] [place] [facility] [address] [id number] [place] [address] Oct, [facility] [place] [facility] [address] [id number] [place] [address] Oct, [facility] [place] [facility] [address] [id number] [place] [address] Oct, [facility] [place] [facility] [address] [id number] [place] [address] Oct, [facility] [place] [facility] [address] [id number] [place] [address] Oct, [facility] [place] [facility] [address] [id number] [place] [address] Oct, [facility] [place] [facility] [address] [id number] [place] [address] Oct, [facility] [place] [facility] [address] [id number] [place] [address] Oct, [facility] [place] [facility] [address] [id number] [place] [address] Oct, [facility] [place] [facility] [address] [facility] [id number] [place] [address] Oct, [facility] [place] [facility] [address] [id number] [place] [address] Oct, [facility] [place] [facility] [address] [id number] [place] [address] Oct, [facility] [place] [facility] [address] [facility] [id number] [place] [address] Oct, [facility] [place] [facility] [address] [id number] [place] [address] Oct, [facility] [place] [facility] [address] [id number] [place] [address] September, [facility] [place] [facility] [address] [id number] [place] [address] September, [facility] [place] [facility] [address] [id number] [place] [address] September, [facility] [place] [facility] [address] [id number] [place] [address] September, [facility] [place] [facility] [address] [id number] [place] [address] September, [facility] [place] [facility] [address] [id number] [place] [address] September, [facility] [place] [facility] [address] [id number] [place] [address] September, [facility] [place] [facility] [address] [facility] [id number] [place] [address] September, [facility] [place] [facility] [address] [id number] [place] [address] September, [facility] [place] [facility] [address] [id number] [place] [address] September, [facility] [place] [facility] [address] [id number] [place] [address] September, [facility] [place] [facility] [address] [facility] [id number] [facility] [address] September, [facility] [place] [facility] [address] [facility] [id number] [facility] [address] September, [facility] [place] [facility] [address] [id number] [facility] [address] Aug, [facility] [place] [facility] [address] [facility] [id number] [facility] [address] Aug, [facility] [place] [facility] [address] [facility] [id number] [facility] [address] Aug, [facility] [place] [facility] [address] [facility] [id number] [place] [address] Aug, [facility] [place] [facility] [address] [id number] [place] [address] Aug, [facility] [place] [facility] [address] [id number] [place] [address] Aug, [facility] [place] [facility] [address] [id number] [place] [address] Aug, [facility] [place] [facility] [address] [id number] [place] [address] Aug, [facility] [place] [facility] [address] [id number] [place] [address] Aug, [facility] [place] [facility] [address] [id number] [place] [address] Aug, [facility] [place] [facility] [address] [facility] [id number] [place] [address] Jul, [facility] [place] [facility] [address] [id number] [place] [address] Jul, [facility] [place] [facility] [address] [id number] [place] [address] Jul, [facility] [place] [facility] [address] [id number] [place] [address] Jul, [facility] [place] [facility] [address] [id number] [place] [address] Jul, [facility] [place] [facility] [address] [facility] [id number] [place] [address] Jul, [facility] [place] [facility] [address] [id number] [place] [address] Jul, [facility] [place] [facility] [address] [id number] [place] [address] Jul, [facility] [place] [facility] [address] [id number] [place] [address] Jun, [facility] [place] [facility] [address] [id number] [place] [address] Jun, [facility] [place] [facility] [address] [id number] [place] [address] 14 Jun, 2013 [facility] [place] [facility] [address] [id number] [place] [address] 14 Jun, 2013 [facility] [place] [facility] [address] [id number] [place] [address] Jun, [facility] [place] [facility] [address] [id number] [place] [address] Jun, [facility] [place] [facility] [address] [id number] [place] [address] 06 Jun, 2013 [facility] [place] [facility] [address] [id number] [place] [address] Jun, [facility] [place] [facility] [address] [id number] [place] [address] Jun, [facility] [place] [facility] [address] [id number] [place] [address] Jun, [facility] [place] [facility] [address] [id number] [place] [address] Jun, [facility] [place] [facility] [address] [id number] [place] [address] Jun, [facility] [place] [facility] [address] [id number] [place] [address] Jun, [facility] [place] [facility] [address] [id number] [place] [address] Jun, [facility] [place] [facility] [address] [id number] [place] [address] May, [facility] [place] [facility] [address] [id number] [place] [address] May, [facility] [place] [facility] [address] [id number] [place] [address] May, [facility] [place] [facility] [address] [id number] [place] [address] May, [facility] [place] [facility] [address] [id number] [place] [address] May, [facility] [place] [facility] [address] [id number] [place] [address] May, [facility] [place] [facility] [address] [id number] [place] [address] May, [facility] [address] [id number] [place] [address] May, [facility] [address] [id number] [place] [address] May, [facility] [address] [id number] [place] [address] May, [facility] [address] [id number] [place] [address] May, [facility] [address] [id number] [place] [address] May, [facility] [address] [id number] [place] [address] May, [facility] [address] [id number] [place] [address] May, [facility] [address] [id number] [place] [address] May, [facility] [address] [id number] [place] [address] May, [facility] [address] [id number] [place] [address] May, [facility] [address] [id number] [place] [address] May, [facility] [address] [id number] [place] [address] May, [facility] [address] [id number] [place] [address] May, [facility] [address] [id number] [place] [address] Apr, [facility] [address] [id number] [place] [address] Apr, [facility] [address] [id number] [place] [address] Apr, [facility] [address] [id number] [place] [address] Apr, [facility] [address] [id number] [place] [address] Apr, [facility] [address] [id number] [place] [address] Apr, [facility] [address] [id number] [place] [address] 18 Apr, 2013 [facility] [address] [id number] [place] [address] 18 Apr, 2013 [facility] [address] [id number] [place] [address] 17 Apr, 2013 [facility] [address] [id number] [place] [address] Apr, [facility] [address] [id number] [place] [address] Apr, [facility] [address] [id number] [place] [address] Apr, [facility] [address] [id number] [place] [address] Apr, [facility] [address] [id number] [place] [address] Apr, [facility] [address] [id number] [place] [address] Apr, [facility] [address] [id number] [place] [address] Apr, [facility] [address] [id number] [place] [address] Apr, [facility] [address] [id number] [place] [address] Apr, [facility] [address] [id number] [place] [address] Mar, [facility] [address] [id number] [place] [address] Mar, [facility] [address] [id number] [place] [address] Mar, [facility] [address] [id number] [place] [address] 14 Mar, 2013 [facility] [address] [id number] [place] [address] Mar, [facility] [address] [id number] [place] [address] Mar, [facility] [address] [id number] [place] [address] Mar, [facility] [address] [id number] [place] [address] Mar, [facility] [address] [id number] [place] [address] Mar, [facility] [address] [id number] [place] [address] Mar, [facility] [address] [id number] [place] [address] Mar, [facility] [address] [facility] [id number] [facility] [place] [address] Feb, [facility] [address] [facility] [id number] [facility] [place] [address] Feb, [facility] [address] [id number] [facility] [place] [address] Feb, [facility] [address] [facility] [id number] [facility] [place] [address] Feb, [facility] [address] [facility] [id number] [facility] [place] [address] Feb, [facility] [address] [id number] [facility] [place] [address] Dec, [facility] [address] [id number] [place] [address] Dec, [facility] [address] [id number] [place] [address] Dec, [facility] [address] [facility] [id number] [facility] [place] [address] Dec, [facility] [address] [id number] [facility] [place] [address] Nov, [facility] [address] [id number] [place] [address] Nov, [facility] [address] [id number] [place] [address] Nov, [facility] [address] [facility] [id number] [facility] [place] [address] Nov, [facility] [address] [id number] [place] [address] Nov, [facility] [address] [facility] [id number] [facility] [place] [address] Nov, [facility] [address] [id number] [facility] [place] [address] Oct, [facility] [address] [facility] [id number] [facility] [place] [address] Oct, [facility] [address] [id number] [place] [address] Oct, [facility] [address] [id number] [place] [address] Oct, [facility] [address] [id number] [place] [address] September, [facility] [address] [id number] [place] [address] September, [facility] [address] [id number] [place] [address] September, [facility] [address] [id number] [place] [address] September, [facility] [facility] [address] [id number] [place] [address] September, [facility] [address] [id number] [place] [address] September, [facility] [address] [id number] [place] [address] September, [facility] [address] [id number] [place] [address] September, [facility] [address] [id number] [place] [address] Aug, [facility] [address] [id number] [place] [address] Aug, [facility] [address] [id number] [place] [address] Jul, [facility] [address] [id number] [place] [address] Jun, [facility] [address] [id number] [place] [address] May, [facility] [address] [id number] [place] [address] May, [facility] [address] [id number] [place] [address] May, [facility] [address] [id number] [place] [address] May, [facility] [address] [id number] [place] [address] Apr, [facility] [address] [id number] [place] [address] Apr, [facility] [address] [id number] [place] [address] Apr, [facility] [address] [id number] [place] [address] Apr, [facility] [address] [id number] [place] [address] Apr, [facility] [address] [id number] [place] [address] Apr, [facility] [address] [id number] [place] [address] Apr, [facility] [address] [id number] [place] [address] Apr, [facility] [address] [id number] [place] [address] Apr, [facility] [address] [id number] [place] [address] 30 Mar, 2012 [facility] [address] [id number] [place] [address] 30 Mar, 2012 [facility] [address] [id number] [place] [address] Mar, [facility] [address] [id number] [place] [address] 27 Mar, 2012 [facility] [address] [id number] [place] [address] 16 Mar, 2012 [facility] [address] [id number] [place] [address] 16 Mar, 2012 [facility] [address] [id number] [place] [address] 16 Mar, 2012 [facility] [address] [id number] [place] [address] 16 Mar, 2012 [facility] [address] [id number] [place] [address] 16 Mar, 2012 [facility] [address] [id number] [place] [address] 16 Mar, 2012 [facility] [address] [id number] [place] [address] 14 Mar, 2012 [facility] [address] [id number] [place] [address] 14 Mar, 2012 [facility] [address] [id number] [place] [address] 13 Mar, 2012 [facility] [address] [id number] [place] [address] 13 Mar, 2012 [facility] [address] [id number] [place] [address] 06 Mar, 2012 [facility] [address] [id number] [place] [address] Mar, [facility] [address] [id number] [place] [address] Mar, [facility] [address] [id number] [place] [address] Mar, [facility] [address] [id number] [place] [address] Mar, [facility] [address] [id number] [place] [address] Feb, [facility] [address] [id number] [place] [address] Feb, [facility] [address] [id number] [place] [address] Feb, [facility] [id number] [place] [address] Feb, [facility] [address] [id number] [place] [address] Jan, [facility] [address] [id number] [place] [address] Jan, [facility] [address] [id number] [place] [address] Dec, [facility] [address] [id number] [place] [address] Dec, [facility] [address] [id number] [place] [address] Dec, [facility] [address] [id number] [place] [address] Nov, [facility] [address] [id number] [place] [address] Nov, [facility] [address] [id number] [place] [address] Oct, [facility] [address] [id number] [place] [address] Oct, [facility] [address] [id number] [place] [address] September, [facility] [address] [id number] [place] [address] September, [facility] [address] [id number] [place] [address] September, [facility] [address] [id number] [place] [address] September, [facility] [address] [id number] [place] [address] Aug, [facility] [address] [id number] [place] [address] Jul, [facility] [address] [id number] [place] [address] Jul, [facility] [address] [id number] [place] [address] Jun, [facility] [address] [id number] [place] [address] Jun, [facility] [address] [id number] [place] [address] Jun, [facility] [address] [id number] [place] [address] May, [facility] [address] [id number] [place] [address] May, [facility] [address] [id number] [place] [address] May, [facility] [address] [id number] [place] [address] May, [facility] [address] [id number] [place] [address] Apr, [facility] [address] [id number] [place] [address] Apr, [facility] [address] [id number] [place] [address] Apr, [facility] [address] [id number] [place] [address] Mar, [facility] [address] [id number] [place] [address] Mar, [facility] [address] [id number] [place] [address] Mar, [facility] [address] [id number] [place] [address] Mar, [facility] [address] [id number] [place] [address] Mar, [facility] [address] [id number] [place] [address] Feb, [facility] [address] [id number] [place] [address] 25 Feb, 2011 [facility] [address] [id number] [place] [address] 17 Feb, 2011 [facility] [address] [id number] [place] [address] Feb, [facility] [address] [id number] [place] [address] Feb, [facility] [address] [id number] [place] [address] Feb, [facility] [address] [id number] [place] [address] Feb, [facility] [address] [id number] [place] [address] 28 Apr, 2010 [facility] [address] [id number] [place] [address] 23 Apr, 2010 [facility] [address] [id number] [place] [address] 15 Apr, 2010 [facility] [address] [id number] [place] [address] 15 Apr, 2010 [facility] [address] [id number] [place] [address] 02 Apr, 2010 [facility] [address] [id number] [place] [address] 02 Apr, 2010 [facility] [address] [id number] [place] [address] 18 Mar, 2010 [facility] [address] [id number] [place] [address] 18 Mar, 2010 [facility] [address] [id number] [place] [address] 17 Mar, 2010 [facility] [address] [id number] [place] [address] 16 Mar, 2010 [facility] [address] [id number] [place] [address] 10 Mar, 2010 [facility] [address] [id number] [place] [address] Mar, [facility] [address] [id number] [place] [address] Mar, [facility] [address] [id number] [place] [address] Mar, [facility] [address] [id number] [place] [address] Feb, [facility] [address] [id number] [place] [address] Feb, [facility] [address] [id number] [place] [address] Dec, [facility] [address] [id number] [place] [address] Jun, [facility] [address] [id number] [place] [address] Jun, [facility] [address] [id number] [place] [address] May, [facility] [address] [id number] [place] [address] 26 Feb, 2009 [facility] [address] [id number] [place] [address] 19 Feb, 2009 [facility] [address] [id number] [place] [address] 19 Feb, 2009 [facility] [address] [id number] [place] [address] 15 Feb, 2009 [facility] [address] [id number] [place] [address] 15 Feb, 2009 [facility] [address] [id number] [place] [address] 13 Feb, 2009 [facility] [address] [id number] [place] [address] 13 Feb, 2009 [facility] [address] [id number] [place] [address] Jul, [facility] [address] [facility] [id number] [place] [address] Jun, IMMUNIZATIONS No Known Immunizations SOCIAL HISTORY Never Assessed REASON FOR VISIT PLAN OF CARE VITAL SIGNS Height 66 in 2013-07-12 Weight 286.31 lbs 2013-07-12 Temperature 98 degrees Fahrenheit 2013-07-12 Heart Rate 84 bpm 2013-07-12 Respiratory Rate 20 2013-07-12 Blood pressure systolic 128 mmHg 2013-07-12 Blood pressure diastolic 83 mmHg 2013-07-12 MEDICATIONS Unknown Medications RESULTS No Results PROCEDURES [...] Hospitalization History Rt hand post op infection-[facility] 7 Hospitalization History cellulitus Right elbow-[facility] 12/09/16
--- OUTSIDE RECORDS SUMMARY | 2019-07-25 06:36 | XMS REPORT ---
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 [place] [address] Mar, [facility] [place] [facility] [address] [id number] [place] [address] Feb, [facility] [place] [facility] [address] [id number] [place] [address] 16 Feb, 2014 [facility] [place] [facility] [address] [id number] [place] [address] 18 Jan, 2014 [facility] [place] [facility] [address] [id number] [place] [address] 18 Jan, 2014 [facility] [place] [facility] [address] [id number] [place] [address] 18 Jan, 2014 [facility] [place] [facility] [address] [id number] [place] [address] 18 Jan, 2014 [facility] [place] [facility] [address] [id number] [place] [address] 12 Jan, 2013 [facility] [place] [facility] [address] [id number] [place] [address] 12 Jan, 2013 [facility] [place] [facility] [address] [facility] [id number] [place] [id number] 09 Jan, 2013 [facility] [place] [facility] [address] [id number] [place] [address] 09 Jan, 2013 [facility] [place] [facility] [address] [id number] [place] [address] Jan, [facility] [place] [facility] [address] [id number] [place] [address] Jan, [facility] [place] [facility] [address] [facility] [id number] [place] [address] Dec, [facility] [place] [facility] [address] [facility] [id number] [place] [address] Dec, [facility] [place] [facility] [address] [id number] [place] [address] Dec, [facility] [place] [facility] [address] [id number] [place] [address] Dec, [facility] [place] [facility] [address] [id number] [place] [address] Dec, [facility] [place] [facility] [address] [id number] [place] [address] Dec, [facility] [place] [facility] [address] [id number] [place] [address] Dec, [facility] [place] [facility] [address] [facility] [id number] [place] [address] Dec, [facility] [place] [facility] [address] [facility] [id number] [place] [address] Dec, [facility] [place] [facility] [address] [facility] [id number] [place] [address] Nov, [facility] [place] [facility] [address] [id number] [place] [address] Nov, [facility] [place] [facility] [address] [facility] [id number] [place] [address] Nov, [facility] [place] [facility] [address] [id number] [place] [address] Nov, [facility] [place] [facility] [address] [facility] [id number] [place] [address] Nov, [facility] [place] [facility] [address] [id number] [place] [address] Nov, [facility] [place] [facility] [address] [id number] [place] [address] Nov, 2013 [facility] [place] [facility] [address] [id number] [place] [address] Nov, 2013 [facility] [place] [facility] [address] [id number] [place] [address] Nov, 2013 [facility] [place] [facility] [address] [id number] [place] [address] Nov, 2013 [facility] [place] [facility] [address] [id number] [place] [address] Nov, 2013 [facility] [place] [facility] [address] [facility] [id number] [place] [address] Nov, 2013 [facility] [place] [facility] [address] [id number] [place] [address] Nov, 2013 [facility] [place] [facility] [address] [id number] [place] [address] Nov, [facility] [place] [facility] [address] [id number] [place] [address] Nov, 2013 [facility] [place] [facility] [address] [id number] [place] [address] Oct, [facility] [place] [facility] [address] [id number] [place] [address] Oct, [facility] [place] [facility] [address] [id number] [place] [address] Oct, [facility] [place] [facility] [address] [id number] [place] [address] Oct, [facility] [place] [facility] [address] [id number] [place] [address] Oct, [facility] [place] [facility] [address] [id number] [place] [address] Oct, [facility] [place] [facility] [address] [id number] [place] [address] Oct, [facility] [place] [facility] [address] [id number] [place] [address] Oct, [facility] [place] [facility] [address] [id number] [place] [address] Oct, [facility] [place] [facility] [address] [facility] [id number] [place] [address] Oct, [facility] [place] [facility] [address] [id number] [place] [address] Oct, [facility] [place] [facility] [address] [id number] [place] [address] Oct, [facility] [place] [facility] [address] [facility] [id number] [place] [address] Oct, [facility] [place] [facility] [address] [id number] [place] [address] Oct, [facility] [place] [facility] [address] [id number] [place] [address] September, [facility] [place] [facility] [address] [id number] [place] [address] September, [facility] [place] [facility] [address] [id number] [place] [address] September, [facility] [place] [facility] [address] [id number] [place] [address] September, [facility] [place] [facility] [address] [id number] [place] [address] September, [facility] [place] [facility] [address] [id number] [place] [address] September, [facility] [place] [facility] [address] [id number] [place] [address] September, [facility] [place] [facility] [address] [facility] [id number] [place] [address] September, [facility] [place] [facility] [address] [id number] [place] [address] September, [facility] [place] [facility] [address] [id number] [place] [address] September, [facility] [place] [facility] [address] [id number] [place] [address] September, [facility] [place] [facility] [address] [facility] [id number] [place] [address] September, [facility] [place] [facility] [address] [facility] [id number] [place] [address] September, [facility] [place] [facility] [address] [id number] [place] [address] Aug, [facility] [place] [facility] [address] [facility] [id number] [place] [address] Aug, [facility] [place] [facility] [address] [facility] [id number] [place] [address] Aug, [facility] [place] [facility] [address] [facility] [id number] [place] [address] Aug, [facility] [place] [facility] [address] [id number] [place] [address] Aug, [facility] [place] [facility] [address] [id number] [place] [address] Aug, [facility] [place] [facility] [address] [id number] [place] [address] Aug, [facility] [place] [facility] [address] [id number] [place] [address] Aug, [facility] [place] [facility] [address] [id number] [place] [address] Aug, [facility] [place] [facility] [address] [id number] [place] [address] Aug, [facility] [place] [facility] [address] [facility] [id number] [place] [address] Jul, [facility] [place] [facility] [address] [id number] [place] [address] Jul, [facility] [place] [facility] [address] [id number] [place] [address] Jul, [facility] [place] [facility] [address] [id number] [place] [address] Jul, [facility] [place] [facility] [address] [id number] [place] [address] Jul, [facility] [place] [facility] [address] [facility] [id number] [place] [address] Jul, [facility] [place] [facility] [address] [id number] [place] [address] Jul, [facility] [place] [facility] [address] [id number] [place] [address] Jul, [facility] [place] [facility] [address] [id number] [place] [address] Jun, [facility] [place] [facility] [address] [id number] [place] [address] Jun, [facility] [place] [facility] [address] [id number] [place] [address] 14 Jun, 2013 [facility] [place] [facility] [address] [id number] [place] [address] 14 Jun, 2013 [facility] [place] [facility] [address] [id number] [place] [address] Jun, [facility] [place] [facility] [address] [id number] [place] [address] Jun, [facility] [place] [facility] [address] [id number] [place] [address] 06 Jun, 2013 [facility] [place] [facility] [address] [id number] [place] [address] Jun, [facility] [place] [facility] [address] [id number] [place] [address] Jun, [facility] [place] [facility] [address] [id number] [place] [address] Jun, [facility] [place] [facility] [address] [id number] [place] [address] Jun, [facility] [place] [facility] [address] [id number] [place] [address] Jun, [facility] [place] [facility] [address] [id number] [place] [address] Jun, [facility] [place] [facility] [address] [id number] [place] [address] Jun, [facility] [place] [facility] [address] [id number] [place] [address] May, [facility] [place] [facility] [address] [id number] [place] [address] May, [facility] [place] [facility] [address] [id number] [place] [address] May, [facility] [place] [facility] [address] [id number] [place] [address] May, [facility] [place] [facility] [address] [id number] [place] [address] May, [facility] [place] [facility] [address] [id number] [place] [address] May, [facility] [place] [facility] [address] [id number] [place] [address] May, [facility] [place] [facility] [address] [id number] [place] [address] May, [facility] [place] [facility] [address] [id number] [place] [address] May, [facility] [place] [facility] [address] [id number] [place] [address] May, [facility] [place] [facility] [address] [id number] [place] [address] May, [facility] [place] [facility] [address] [id number] [place] [address] May, [facility] [place] [facility] [address] [id number] [place] [address] May, [facility] [place] [facility] [address] [id number] [place] [address] May, [facility] [place] [facility] [address] [id number] [place] [address] May, [facility] [address] [id number] [place] [address] May, [facility] [address] [id number] [place] [address] May, [facility] [address] [id number] [place] [address] May, [facility] [address] [id number] [place] [address] May, [facility] [address] [id number] [place] [address] May, [facility] [address] [id number] [place] [address] Apr, [facility] [address] [id number] [place] [address] Apr, [facility] [address] [id number] [place] [address] Apr, [facility] [address] [id number] [place] [address] Apr, [facility] [address] [id number] [place] [address] Apr, [facility] [address] [id number] [place] [address] Apr, [facility] [address] [id number] [place] [address] 18 Apr, 2013 [facility] [address] [id number] [place] [address] 18 Apr, 2013 [facility] [address] [id number] [place] [address] 17 Apr, 2013 [facility] [address] [id number] [place] [address] Apr, [facility] [address] [id number] [place] [address] Apr, [facility] [address] [id number] [place] [address] Apr, [facility] [address] [id number] [place] [address] Apr, [facility] [address] [id number] [place] [address] Apr, [facility] [address] [id number] [place] [address] Apr, [facility] [address] [id number] [place] [address] Apr, [facility] [address] [id number] [place] [address] Apr, [facility] [address] [id number] [place] [address] Apr, [facility] [address] [id number] [place] [address] Mar, [facility] [address] [id number] [place] [address] Mar, [facility] [address] [id number] [place] [address] Mar, [facility] [address] [id number] [place] [address] 14 Mar, 2013 [facility] [address] [id number] [place] [address] Mar, [facility] [address] [id number] [place] [address] Mar, [facility] [address] [id number] [place] [address] Mar, [facility] [address] [id number] [place] [address] Mar, [facility] [address] [id number] [place] [address] Mar, [facility] [address] [id number] [place] [address] Mar, [facility] [place] [address] [id number] [place] [address] Mar, [facility] [place] [address] [facility] [id number] [place] [address] Feb, [facility] [place] [address] [facility] [id number] [place] [address] Feb, [facility] [place] [address] [id number] [place] [address] Feb, [facility] [place] [address] [facility] [id number] [place] [address] Feb, [facility] [place] [address] [facility] [id number] [place] [address] Feb, [facility] [place] [address] [id number] [place] [address] Dec, [facility] [place] [address] [id number] [place] [address] Dec, [facility] [place] [address] [id number] [place] [address] Dec, [facility] [place] [address] [facility] [id number] [place] [address] Dec, [facility] [place] [address] [id number] [place] [address] Nov, [facility] [place] [address] [id number] [place] [address] Nov, [facility] [place] [address] [id number] [place] [address] Nov, [facility] [place] [address] [facility] [id number] [place] [address] Nov, [facility] [place] [address] [id number] [place] [address] Nov, [facility] [place] [address] [facility] [id number] [place] [address] Nov, [facility] [place] [address] [id number] [place] [address] Oct, [facility] [place] [address] [facility] [id number] [place] [address] Oct, [facility] [place] [address] [id number] [place] [address] Oct, [facility] [place] [address] [id number] [place] [address] Oct, [facility] [address] [id number] [place] [address] September, [facility] [address] [id number] [place] [address] September, [facility] [address] [id number] [place] [address] September, [facility] [address] [id number] [place] [address] September, [facility] [address] [id number] [place] [address] September, [facility] [address] [id number] [place] [address] September, [facility] [address] [id number] [place] [address] September, [facility] [address] [id number] [place] [address] September, [facility] [address] [id number] [place] [address] Aug, [facility] [address] [id number] [place] [address] Aug, [facility] [address] [id number] [place] [address] Jul, [facility] [address] [id number] [place] [address] Jun, [facility] [address] [id number] [place] [address] May, [facility] [address] [id number] [place] [address] May, [facility] [address] [id number] [place] [address] May, [facility] [address] [id number] [place] [address] May, [facility] [address] [id number] [place] [address] Apr, [facility] [address] [id number] [place] [address] Apr, [facility] [address] [id number] [place] [address] Apr, [facility] [address] [id number] [place] [address] Apr, [facility] [address] [id number] [place] [address] Apr, [facility] [address] [id number] [place] [address] Apr, [facility] [address] [id number] [place] [address] Apr, [facility] [address] [id number] [place] [address] Apr, [facility] [address] [id number] [place] [address] Apr, [facility] [address] [id number] [place] [address] 30 Mar, 2012 [facility] [address] [id number] [place] [address] 30 Mar, 2012 [facility] [address] [id number] [place] [address] Mar, [facility] [address] [id number] [place] [address] 27 Mar, 2012 [facility] [address] [id number] [place] [address] 16 Mar, 2012 [facility] [address] [id number] [place] [address] 16 Mar, 2012 [facility] [address] [id number] [place] [address] 16 Mar, 2012 [facility] [address] [id number] [place] [address] 16 Mar, 2012 [facility] [address] [id number] [place] [address] 16 Mar, 2012 [facility] [address] [id number] [place] [address] 16 Mar, 2012 [facility] [address] [id number] [place] [address] 14 Mar, 2012 [facility] [address] [id number] [place] [address] 14 Mar, 2012 [facility] [address] [id number] [place] [address] 13 Mar, 2012 [facility] [address] [id number] [place] [address] 13 Mar, 2012 [facility] [address] [id number] [place] [address] 06 Mar, 2012 [facility] [address] [id number] [place] [address] Mar, [facility] [address] [id number] [place] [address] Mar, [facility] [address] [id number] [place] [address] Mar, [facility] [address] [id number] [place] [address] Mar, [facility] [address] [id number] [place] [address] Feb, [facility] [address] [id number] [place] [address] Feb, [facility] [address] [id number] [place] [address] Feb, [facility] [id number] [place] [address] Feb, [facility] [address] [id number] [place] [address] Jan, [facility] [address] [id number] [place] [address] Jan, [facility] [address] [id number] [place] [address] Dec, [facility] [address] [id number] [place] [address] Dec, [facility] [address] [id number] [place] [address] Dec, [facility] [address] [id number] [place] [address] Nov, [facility] [address] [id number] [place] [address] Nov, [facility] [address] [id number] [place] [address] Oct, [facility] [address] [id number] [place] [address] Oct, [facility] [address] [id number] [place] [address] September, [facility] [address] [id number] [place] [address] September, [facility] [address] [id number] [place] [address] September, [facility] [address] [id number] [place] [address] September, [facility] [address] [id number] [place] [address] Aug, [facility] [address] [id number] [place] [address] Jul, [facility] [address] [id number] [place] [address] Jul, [facility] [address] [id number] [place] [address] Jun, [facility] [address] [id number] [place] [address] Jun, [facility] [address] [id number] [place] [address] Jun, [facility] [address] [id number] [place] [address] May, [facility] [address] [id number] [place] [address] May, [facility] [address] [id number] [place] [address] May, [facility] [address] [id number] [place] [address] May, [facility] [address] [id number] [place] [address] Apr, [facility] [address] [id number] [place] [address] Apr, [facility] [address] [id number] [place] [address] Apr, [facility] [address] [id number] [place] [address] Mar, [facility] [address] [id number] [place] [address] Mar, [facility] [address] [id number] [place] [address] Mar, [facility] [address] [id number] [place] [address] Mar, [facility] [address] [id number] [place] [address] Mar, [facility] [address] [id number] [place] [address] Feb, [facility] [address] [id number] [place] [address] 25 Feb, 2011 [facility] [address] [id number] [place] [address] 17 Feb, 2011 [facility] [address] [id number] [place] [address] Feb, [facility] [address] [id number] [place] [address] Feb, [facility] [address] [id number] [place] [address] Feb, [facility] [address] [id number] [place] [address] Feb, [facility] [address] [id number] [place] [address] 28 Apr, 2010 [facility] [address] [id number] [place] [address] 23 Apr, 2010 [facility] [address] [id number] [place] [address] 15 Apr, 2010 [facility] [address] [id number] [place] [address] 15 Apr, 2010 [facility] [address] [id number] [place] [address] 02 Apr, 2010 [facility] [address] [id number] [place] [address] 02 Apr, 2010 [facility] [address] [id number] [place] [address] 18 Mar, 2010 [facility] [address] [id number] [place] [address] 18 Mar, 2010 [facility] [address] [id number] [place] [address] 17 Mar, 2010 [facility] [address] [id number] [place] [address] 16 Mar, 2010 [facility] [address] [id number] [place] [address] 10 Mar, 2010 [facility] [address] [id number] [place] [address] Mar, [facility] [address] [id number] [place] [address] Mar, [facility] [address] [id number] [place] [address] Mar, [facility] [address] [id number] [place] [address] Feb, [facility] [address] [id number] [place] [address] Feb, [facility] [address] [id number] [place] [address] Dec, [facility] [address] [id number] [place] [address] Jun, [facility] [address] [id number] [place] [address] Jun, [facility] [address] [id number] [place] [address] May, [facility] [address] [id number] [place] [address] 26 Feb, 2009 [facility] [address] [id number] [place] [address] 19 Feb, 2009 [facility] [address] [id number] [place] [address] 19 Feb, 2009 [facility] [address] [id number] [place] [address] 15 Feb, 2009 [facility] [address] [id number] [place] [address] 15 Feb, 2009 [facility] [address] [id number] [place] [address] 13 Feb, 2009 [facility] [address] [id number] [place] [address] 13 Feb, 2009 [facility] [address] [id number] [place] [address] Jul, [facility] [address] [facility] [id number] [place] [address] Jun, IMMUNIZATIONS No Known Immunizations SOCIAL HISTORY [...] 08/2014 Hospitalization History Rt hand post op infection-[facility] 7 Hospitalization History cellulitus Right elbow-[facility] 12/09/16
--- OUTSIDE RECORDS SUMMARY | 2019-07-25 06:37 | XMS REPORT ---
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 [address] [id number] [place] [address] Mar, [facility] [place] [facility] [address] [id number] [place] [address] Mar, [facility] [place] [facility] [address] [id number] [place] [address] Mar, [facility] [place] [facility] [address] [id number] [place] [address] Feb, [facility] [place] [facility] [address] [id number] [place] [address] 16 Feb, 2014 [facility] [place] [facility] [address] [id number] [place] [address] 18 Jan, 2014 [facility] [place] [facility] [address] [id number] [place] [address] 18 Jan, 2014 [facility] [place] [facility] [address] [id number] [place] [address] 18 Jan, 2014 [facility] [place] [facility] [address] [id number] [place] [address] 18 Jan, 2014 [facility] [place] [facility] [address] [id number] [place] [address] 12 Jan, 2013 [facility] [place] [facility] [address] [id number] [place] [address] 12 Jan, 2013 [facility] [place] [facility] [address] [facility] [id number] [place] [id number] 09 Jan, 2013 [facility] [place] [facility] [address] [id number] [place] [address] 09 Jan, 2013 [facility] [place] [facility] [address] [id number] [place] [address] Jan, [facility] [place] [facility] [address] [id number] [facility] [place] [address] Jan, [facility] [place] [facility] [address] [facility] [id number] [place] [address] Dec, [facility] [place] [facility] [address] [facility] [id number] [facility] [place] [address] Dec, [facility] [place] [facility] [address] [id number] [place] [address] Dec, [facility] [place] [facility] [address] [id number] [place] [address] Dec, [facility] [place] [facility] [address] [id number] [place] [address] Dec, [facility] [place] [facility] [address] [id number] [facility] [place] [address] Dec, [facility] [place] [facility] [address] [id number] [facility] [place] [address] Dec, [facility] [place] [facility] [address] [facility] [id number] [facility] [place] [address] Dec, [facility] [place] [facility] [address] [facility] [id number] [facility] [place] [address] Dec, [facility] [place] [facility] [address] [facility] [id number] [place] [address] Nov, [facility] [place] [facility] [address] [id number] [place] [address] Nov, [facility] [place] [facility] [address] [facility] [id number] [facility] [place] [address] Nov, [facility] [place] [facility] [address] [id number] [place] [address] Nov, [facility] [place] [facility] [address] [facility] [id number] [place] [address] Nov, [facility] [place] [facility] [address] [id number] [place] [address] Nov, [facility] [place] [facility] [address] [id number] [place] [address] Nov, 2013 [facility] [place] [facility] [address] [id number] [place] [address] Nov, 2013 [facility] [place] [facility] [address] [id number] [place] [address] Nov, 2013 [facility] [place] [facility] [address] [id number] [place] [address] Nov, 2013 [facility] [place] [facility] [address] [id number] [place] [address] Nov, 2013 [facility] [place] [facility] [address] [facility] [id number] [place] [address] Nov, 2013 [facility] [place] [facility] [address] [id number] [place] [address] Nov, 2013 [facility] [place] [facility] [address] [id number] [place] [address] Nov, [facility] [place] [facility] [address] [id number] [place] [address] Nov, 2013 [facility] [place] [facility] [address] [id number] [place] [address] Oct, [facility] [place] [facility] [address] [id number] [place] [address] Oct, [facility] [place] [facility] [address] [id number] [place] [address] Oct, [facility] [place] [facility] [address] [id number] [place] [address] Oct, [facility] [place] [facility] [address] [id number] [place] [address] Oct, [facility] [place] [facility] [address] [id number] [place] [address] Oct, [facility] [place] [facility] [address] [id number] [place] [address] Oct, [facility] [place] [facility] [address] [id number] [place] [address] Oct, [facility] [place] [facility] [address] [id number] [place] [address] Oct, [facility] [place] [facility] [address] [facility] [id number] [place] [address] Oct, [facility] [place] [facility] [address] [id number] [place] [address] Oct, [facility] [place] [facility] [address] [id number] [place] [address] Oct, [facility] [place] [facility] [address] [facility] [id number] [place] [address] Oct, [facility] [place] [facility] [address] [id number] [place] [address] Oct, [facility] [place] [facility] [address] [id number] [place] [address] September, [facility] [place] [facility] [address] [id number] [place] [address] September, [facility] [place] [facility] [address] [id number] [place] [address] September, [facility] [place] [facility] [address] [id number] [place] [address] September, [facility] [place] [facility] [address] [id number] [place] [address] September, [facility] [place] [facility] [address] [id number] [place] [address] September, [facility] [place] [facility] [address] [id number] [place] [address] September, [facility] [place] [facility] [address] [facility] [id number] [place] [address] September, [facility] [place] [facility] [address] [id number] [place] [address] September, [facility] [place] [facility] [address] [id number] [place] [address] September, [facility] [place] [facility] [address] [id number] [place] [address] September, [facility] [place] [facility] [address] [facility] [id number] [facility] [place] [address] September, [facility] [place] [facility] [address] [facility] [id number] [facility] [place] [address] September, [facility] [place] [facility] [address] [id number] [facility] [place] [address] Aug, [facility] [place] [facility] [address] [facility] [id number] [facility] [place] [address] Aug, [facility] [place] [facility] [address] [facility] [id number] [facility] [place] [address] Aug, [facility] [place] [facility] [address] [facility] [id number] [place] [address] Aug, [facility] [place] [facility] [address] [id number] [place] [address] Aug, [facility] [place] [facility] [address] [id number] [place] [address] Aug, [facility] [place] [facility] [address] [id number] [place] [address] Aug, [facility] [place] [facility] [address] [id number] [place] [address] Aug, [facility] [place] [facility] [address] [id number] [place] [address] Aug, [facility] [place] [facility] [address] [id number] [place] [address] Aug, [facility] [place] [facility] [address] [facility] [id number] [place] [address] Jul, [facility] [place] [facility] [address] [id number] [place] [address] Jul, [facility] [place] [facility] [address] [id number] [place] [address] Jul, [facility] [place] [facility] [address] [id number] [place] [address] Jul, [facility] [place] [facility] [address] [id number] [place] [address] Jul, [facility] [place] [facility] [address] [facility] [id number] [place] [address] Jul, [facility] [place] [facility] [address] [id number] [place] [address] Jul, [facility] [place] [facility] [address] [id number] [place] [address] Jul, [facility] [place] [facility] [address] [id number] [place] [address] Jun, [facility] [place] [facility] [address] [id number] [place] [address] Jun, [facility] [place] [facility] [address] [id number] [place] [address] 14 Jun, 2013 [facility] [place] [facility] [address] [id number] [place] [address] 14 Jun, 2013 [facility] [place] [facility] [address] [id number] [place] [address] Jun, [facility] [place] [facility] [address] [id number] [place] [address] Jun, [facility] [place] [facility] [address] [id number] [place] [address] 06 Jun, 2013 [facility] [place] [facility] [address] [id number] [place] [address] Jun, [facility] [place] [facility] [address] [id number] [place] [address] Jun, [facility] [place] [facility] [address] [id number] [place] [address] Jun, [facility] [place] [facility] [address] [id number] [place] [address] Jun, [facility] [place] [facility] [address] [id number] [place] [address] Jun, [facility] [place] [facility] [address] [id number] [place] [address] Jun, [facility] [place] [facility] [address] [id number] [place] [address] Jun, [facility] [place] [facility] [address] [id number] [place] [address] May, [facility] [place] [facility] [address] [id number] [place] [address] May, [facility] [place] [facility] [address] [id number] [place] [address] May, [facility] [place] [facility] [address] [id number] [place] [address] May, [facility] [place] [facility] [address] [id number] [place] [address] May, [facility] [place] [facility] [address] [id number] [place] [address] May, [facility] [place] [facility] [address] [id number] [place] [address] May, [facility] [place] [facility] [address] [id number] [place] [address] May, [facility] [place] [facility] [address] [id number] [place] [address] May, [facility] [place] [facility] [address] [id number] [place] [address] May, [facility] [place] [facility] [address] [id number] [place] [address] May, [facility] [place] [facility] [address] [id number] [place] [address] May, [facility] [place] [facility] [address] [id number] [place] [address] May, [facility] [place] [facility] [address] [id number] [place] [address] May, [facility] [place] [facility] [address] [id number] [place] [address] May, [facility] [place] [facility] [address] [id number] [place] [address] May, [facility] [place] [address] [id number] [place] [address] May, [facility] [address] [id number] [place] [address] May, [facility] [address] [id number] [place] [address] May, [facility] [address] [id number] [place] [address] May, [facility] [address] [id number] [place] [address] Apr, [facility] [address] [id number] [place] [address] Apr, [facility] [address] [id number] [place] [address] Apr, [facility] [address] [id number] [place] [address] Apr, [facility] [address] [id number] [place] [address] Apr, [facility] [address] [id number] [place] [address] Apr, [facility] [address] [id number] [place] [address] 18 Apr, 2013 [facility] [address] [id number] [place] [address] 18 Apr, 2013 [facility] [address] [id number] [place] [address] 17 Apr, 2013 [facility] [address] [id number] [place] [address] Apr, [facility] [address] [id number] [place] [address] Apr, [facility] [address] [id number] [place] [address] Apr, [facility] [address] [id number] [place] [address] Apr, [facility] [address] [id number] [place] [address] Apr, [facility] [address] [id number] [place] [address] Apr, [facility] [address] [id number] [place] [address] Apr, [facility] [address] [id number] [place] [address] Apr, [facility] [address] [id number] [place] [address] Apr, [facility] [address] [id number] [place] [address] Mar, [facility] [address] [id number] [place] [address] Mar, [facility] [address] [id number] [place] [address] Mar, [facility] [address] [id number] [place] [address] 14 Mar, 2013 [facility] [address] [id number] [place] [address] Mar, [facility] [address] [id number] [place] [address] Mar, [facility] [address] [id number] [place] [address] Mar, [facility] [address] [id number] [place] [address] Mar, [facility] [address] [id number] [place] [address] Mar, [facility] [address] [id number] [place] [address] Mar, [facility] [address] [id number] [place] [address] Mar, [facility] [address] [facility] [id number] [facility] [place] [address] Feb, [facility] [address] [facility] [id number] [facility] [place] [address] Feb, [facility] [address] [id number] [facility] [place] [address] Feb, [facility] [address] [facility] [id number] [facility] [place] [address] Feb, [facility] [address] [facility] [id number] [facility] [place] [address] Feb, [facility] [address] [id number] [facility] [place] [address] Dec, [facility] [address] [id number] [place] [address] Dec, [facility] [address] [id number] [place] [address] Dec, [facility] [address] [facility] [id number] [facility] [place] [address] Dec, [facility] [address] [id number] [facility] [place] [address] Nov, [facility] [address] [id number] [place] [address] Nov, [facility] [address] [id number] [place] [address] Nov, [facility] [address] [facility] [id number] [facility] [place] [address] Nov, [facility] [address] [id number] [place] [address] Nov, [facility] [address] [facility] [id number] [facility] [place] [address] Nov, [facility] [address] [id number] [facility] [place] [address] Oct, [facility] [address] [facility] [id number] [facility] [place] [address] Oct, [facility] [address] [id number] [place] [address] Oct, [facility] [address] [id number] [place] [address] Oct, [facility] [address] [id number] [place] [address] September, [facility] [address] [id number] [place] [address] September, [facility] [address] [id number] [place] [address] September, [facility] [address] [id number] [place] [address] September, [facility] [address] [id number] [place] [address] September, [facility] [address] [id number] [place] [address] September, [facility] [address] [id number] [place] [address] September, [facility] [address] [id number] [place] [address] September, [facility] [address] [id number] [place] [address] Aug, [facility] [address] [id number] [place] [address] Aug, [facility] [address] [id number] [place] [address] Jul, [facility] [address] [id number] [place] [address] Jun, [facility] [address] [id number] [place] [address] May, [facility] [address] [id number] [place] [address] May, [facility] [address] [id number] [place] [address] May, [facility] [address] [id number] [place] [address] May, [facility] [address] [id number] [place] [address] Apr, [facility] [address] [id number] [place] [address] Apr, [facility] [address] [id number] [place] [address] Apr, [facility] [address] [id number] [place] [address] Apr, [facility] [address] [id number] [place] [address] Apr, [facility] [address] [id number] [place] [address] Apr, [facility] [address] [id number] [place] [address] Apr, [facility] [address] [id number] [place] [address] Apr, [facility] [address] [id number] [place] [address] Apr, [facility] [address] [id number] [place] [address] 30 Mar, 2012 [facility] [address] [id number] [place] [address] 30 Mar, 2012 [facility] [address] [id number] [place] [address] Mar, [facility] [address] [id number] [place] [address] 27 Mar, 2012 [facility] [address] [id number] [place] [address] 16 Mar, 2012 [facility] [address] [id number] [place] [address] 16 Mar, 2012 [facility] [address] [id number] [place] [address] 16 Mar, 2012 [facility] [address] [id number] [place] [address] 16 Mar, 2012 [facility] [address] [id number] [place] [address] 16 Mar, 2012 [facility] [address] [id number] [place] [address] 16 Mar, 2012 [facility] [address] [id number] [place] [address] 14 Mar, 2012 [facility] [address] [id number] [place] [address] 14 Mar, 2012 [facility] [address] [id number] [place] [address] 13 Mar, 2012 [facility] [address] [id number] [place] [address] 13 Mar, 2012 [facility] [address] [id number] [place] [address] 06 Mar, 2012 [facility] [address] [id number] [place] [address] Mar, [facility] [address] [id number] [place] [address] Mar, [facility] [address] [id number] [place] [address] Mar, [facility] [address] [id number] [place] [address] Mar, [facility] [address] [id number] [place] [address] Feb, [facility] [address] [id number] [place] [address] Feb, [facility] [address] [id number] [place] [address] Feb, [facility] [id number] [place] [address] Feb, [facility] [address] [id number] [place] [address] Jan, [facility] [address] [id number] [place] [address] Jan, [facility] [address] [id number] [place] [address] Dec, [facility] [address] [id number] [place] [address] Dec, [facility] [address] [id number] [place] [address] Dec, [facility] [address] [id number] [place] [address] Nov, [facility] [address] [id number] [place] [address] Nov, [facility] [address] [id number] [place] [address] Oct, [facility] [address] [id number] [place] [address] Oct, [facility] [address] [id number] [place] [address] September, [facility] [address] [id number] [place] [address] September, [facility] [address] [id number] [place] [address] September, [facility] [address] [id number] [place] [address] September, [facility] [address] [id number] [place] [address] Aug, [facility] [address] [id number] [place] [address] Jul, [facility] [address] [id number] [place] [address] Jul, [facility] [address] [id number] [place] [address] Jun, [facility] [address] [id number] [place] [address] Jun, [facility] [address] [id number] [place] [address] Jun, [facility] [address] [id number] [place] [address] May, [facility] [address] [id number] [place] [address] May, [facility] [address] [id number] [place] [address] May, [facility] [address] [id number] [place] [address] May, [facility] [address] [id number] [place] [address] Apr, [facility] [address] [id number] [place] [address] Apr, [facility] [address] [id number] [place] [address] Apr, [facility] [address] [id number] [place] [address] Mar, [facility] [address] [id number] [place] [address] Mar, [facility] [address] [id number] [place] [address] Mar, [facility] [address] [id number] [place] [address] Mar, [facility] [address] [id number] [place] [address] Mar, [facility] [address] [id number] [place] [address] Feb, [facility] [address] [id number] [place] [address] 25 Feb, 2011 [facility] [address] [id number] [place] [address] 17 Feb, 2011 [facility] [address] [id number] [place] [address] Feb, [facility] [address] [id number] [place] [address] Feb, [facility] [address] [id number] [place] [address] Feb, [facility] [address] [id number] [place] [address] Feb, [facility] [address] [id number] [place] [address] 28 Apr, 2010 [facility] [address] [id number] [place] [address] 23 Apr, 2010 [facility] [address] [id number] [place] [address] 15 Apr, 2010 [facility] [address] [id number] [place] [address] 15 Apr, 2010 [facility] [address] [id number] [place] [address] 02 Apr, 2010 [facility] [address] [id number] [place] [address] 02 Apr, 2010 [facility] [address] [id number] [place] [address] 18 Mar, 2010 [facility] [address] [id number] [place] [address] 18 Mar, 2010 [facility] [address] [id number] [place] [address] 17 Mar, 2010 [facility] [address] [id number] [place] [address] 16 Mar, 2010 [facility] [address] [id number] [place] [address] 10 Mar, 2010 [facility] [address] [id number] [place] [address] Mar, [facility] [address] [id number] [place] [address] Mar, [facility] [address] [id number] [place] [address] Mar, [facility] [address] [id number] [place] [address] Feb, [facility] [address] [id number] [place] [address] Feb, [facility] [address] [id number] [place] [address] Dec, [facility] [address] [id number] [place] [address] Jun, [facility] [address] [id number] [place] [address] Jun, [facility] [address] [id number] [place] [address] May, [facility] [address] [id number] [place] [address] 26 Feb, 2009 [facility] [address] [id number] [place] [address] 19 Feb, 2009 [facility] [address] [id number] [place] [address] 19 Feb, 2009 [facility] [address] [id number] [place] [address] 15 Feb, 2009 [facility] [address] [id number] [place] [address] 15 Feb, 2009 [facility] [address] [id number] [place] [address] 13 Feb, 2009 [facility] [address] [id number] [place] [address] 13 Feb, 2009 [facility] [address] [id number] [place] [address] Jul, [facility] [place] [address] [facility] [id number] [place] [address] Jun, IMMUNIZATIONS No Known Immunizations SOCIAL HISTORY [...] appendectomy [address] Dr aPrker, hiatal hernia and duo dentitis 11/06/2012 Surgical History hysterectomy 03/2008 Surgical History oopherectomy/salpingectomy 1991 Surgical History Seizures possibly related to overdose/mi staking medications 2016 Surgical History right hand debridment 07/16/2016 Surgical History Right arm cellulitus 11/2016 Hospitalization History 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
--- OUTSIDE RECORDS SUMMARY | 2019-07-25 06:38 | XMS REPORT ---
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 [facility] [address] [id number] [place] [address] Mar, [facility] [place] [facility] [address] [id number] [place] [address] Mar, [facility] [place] [facility] [address] [id number] [place] [address] Mar, [facility] [place] [facility] [address] [id number] [place] [address] Feb, [facility] [place] [facility] [address] [id number] [place] [address] 16 Feb, 2014 [facility] [place] [facility] [address] [id number] [place] [address] 18 Jan, 2014 [facility] [place] [facility] [address] [id number] [place] [address] 18 Jan, 2014 [facility] [place] [facility] [address] [id number] [place] [address] 18 Jan, 2014 [facility] [place] [facility] [address] [id number] [place] [address] 18 Jan, 2014 [facility] [place] [facility] [address] [id number] [place] [address] 12 Jan, 2013 [facility] [place] [facility] [address] [id number] [place] [address] 12 Jan, 2013 [facility] [place] [facility] [address] [facility] [id number] [place] [address] 09 Jan, 2013 [facility] [place] [facility] [address] [id number] [place] [address] 09 Jan, 2013 [facility] [place] [facility] [address] [id number] [place] [address] Jan, [facility] [place] [facility] [address] [id number] [facility] [place] [address] Jan, [facility] [place] [facility] [address] [facility] [id number] [place] [address] Dec, [facility] [place] [facility] [address] [facility] [id number] [facility] [place] [address] Dec, [facility] [place] [facility] [address] [id number] [place] [address] Dec, [facility] [place] [facility] [address] [id number] [place] [address] Dec, [facility] [place] [facility] [address] [id number] [place] [address] Dec, [facility] [place] [facility] [address] [id number] [facility] [place] [address] Dec, [facility] [place] [facility] [address] [id number] [facility] [place] [address] Dec, [facility] [place] [facility] [address] [facility] [id number] [facility] [place] [address] Dec, [facility] [place] [facility] [address] [facility] [id number] [facility] [place] [address] Dec, [facility] [place] [facility] [address] [facility] [id number] [place] [address] Nov, [facility] [place] [facility] [address] [id number] [place] [address] Nov, [facility] [place] [facility] [address] [facility] [id number] [facility] [place] [address] Nov, [facility] [place] [facility] [address] [id number] [place] [address] Nov, [facility] [place] [facility] [address] [facility] [id number] [place] [address] Nov, [facility] [place] [facility] [address] [id number] [place] [address] Nov, [facility] [place] [facility] [address] [id number] [place] [address] Nov, 2013 [facility] [place] [facility] [address] [id number] [place] [address] Nov, 2013 [facility] [place] [facility] [address] [id number] [place] [address] Nov, 2013 [facility] [place] [facility] [address] [id number] [place] [address] Nov, 2013 [facility] [place] [facility] [address] [id number] [place] [address] Nov, 2013 [facility] [place] [facility] [address] [facility] [id number] [place] [address] Nov, 2013 [facility] [place] [facility] [address] [id number] [place] [address] Nov, 2013 [facility] [place] [facility] [address] [id number] [place] [address] Nov, [facility] [place] [facility] [address] [id number] [place] [address] Nov, 2013 [facility] [place] [facility] [address] [id number] [place] [address] Oct, [facility] [place] [facility] [address] [id number] [place] [address] Oct, [facility] [place] [facility] [address] [id number] [place] [address] Oct, [facility] [place] [facility] [address] [id number] [place] [address] Oct, [facility] [place] [facility] [address] [id number] [place] [address] Oct, [facility] [place] [facility] [address] [id number] [place] [address] Oct, [facility] [place] [facility] [address] [id number] [place] [address] Oct, [facility] [place] [facility] [address] [id number] [place] [address] Oct, [facility] [place] [facility] [address] [id number] [place] [address] Oct, [facility] [place] [facility] [address] [facility] [id number] [place] [address] Oct, [facility] [place] [facility] [address] [id number] [place] [address] Oct, [facility] [place] [facility] [address] [id number] [place] [address] Oct, [facility] [place] [facility] [address] [facility] [id number] [place] [address] Oct, [facility] [place] [facility] [address] [id number] [place] [address] Oct, [facility] [place] [facility] [address] [id number] [place] [address] September, [facility] [place] [facility] [address] [id number] [place] [address] September, [facility] [place] [facility] [address] [id number] [place] [address] September, [facility] [place] [facility] [address] [id number] [place] [address] September, [facility] [place] [facility] [address] [id number] [place] [address] September, [facility] [place] [facility] [address] [id number] [place] [address] September, [facility] [place] [facility] [address] [id number] [place] [address] September, [facility] [place] [facility] [address] [facility] [id number] [place] [address] September, [facility] [place] [facility] [address] [id number] [place] [address] September, [facility] [place] [facility] [address] [id number] [place] [address] September, [facility] [place] [facility] [address] [id number] [place] [address] September, [facility] [place] [facility] [address] [facility] [id number] [facility] [place] [address] September, [facility] [place] [facility] [address] [facility] [id number] [facility] [place] [address] September, [facility] [place] [facility] [address] [id number] [facility] [place] [address] Aug, [facility] [place] [facility] [address] [facility] [id number] [facility] [place] [address] Aug, [facility] [place] [facility] [address] [facility] [id number] [facility] [place] [address] Aug, [facility] [place] [facility] [address] [facility] [id number] [place] [address] Aug, [facility] [place] [facility] [address] [id number] [place] [address] Aug, [facility] [place] [facility] [address] [id number] [place] [address] Aug, [facility] [place] [facility] [address] [id number] [place] [address] Aug, [facility] [place] [facility] [address] [id number] [place] [address] Aug, [facility] [place] [facility] [address] [id number] [place] [address] Aug, [facility] [place] [facility] [address] [id number] [place] [address] Aug, [facility] [place] [facility] [address] [facility] [id number] [place] [address] Jul, [facility] [place] [facility] [address] [id number] [place] [address] Jul, [facility] [place] [facility] [address] [id number] [place] [address] Jul, [facility] [place] [facility] [address] [id number] [place] [address] Jul, [facility] [place] [facility] [address] [id number] [place] [address] Jul, [facility] [place] [facility] [address] [facility] [id number] [place] [address] Jul, [facility] [place] [facility] [address] [id number] [place] [address] Jul, [facility] [place] [facility] [address] [id number] [place] [address] Jul, [facility] [place] [facility] [address] [id number] [place] [address] Jun, [facility] [place] [facility] [address] [id number] [place] [address] Jun, [facility] [place] [facility] [address] [id number] [place] [address] 14 Jun, 2013 [facility] [place] [facility] [address] [id number] [place] [address] 14 Jun, 2013 [facility] [place] [facility] [address] [id number] [place] [address] Jun, [facility] [place] [facility] [address] [id number] [place] [address] Jun, [facility] [place] [facility] [address] [id number] [place] [address] 06 Jun, 2013 [facility] [place] [facility] [address] [id number] [place] [address] Jun, [facility] [place] [facility] [address] [id number] [place] [address] Jun, [facility] [place] [facility] [address] [id number] [place] [address] Jun, [facility] [place] [facility] [address] [id number] [place] [address] Jun, [facility] [place] [facility] [address] [id number] [place] [address] Jun, [facility] [place] [facility] [address] [id number] [place] [address] Jun, [facility] [place] [facility] [address] [id number] [place] [address] Jun, [facility] [place] [facility] [address] [id number] [place] [address] May, [facility] [place] [facility] [address] [id number] [place] [address] May, [facility] [place] [facility] [address] [id number] [place] [address] May, [facility] [place] [facility] [address] [id number] [place] [address] May, [facility] [place] [facility] [address] [id number] [place] [address] May, [facility] [place] [facility] [address] [id number] [place] [address] May, [facility] [place] [facility] [address] [id number] [place] [address] May, [facility] [place] [facility] [address] [id number] [place] [address] May, [facility] [place] [facility] [address] [id number] [place] [address] May, [facility] [place] [facility] [address] [id number] [place] [address] May, [facility] [place] [facility] [address] [id number] [place] [address] May, [facility] [place] [facility] [address] [id number] [place] [address] May, [facility] [place] [facility] [address] [id number] [place] [address] May, [facility] [address] [id number] [place] [address] May, [facility] [address] [id number] [place] [address] May, [facility] [address] [id number] [place] [address] May, [facility] [address] [id number] [place] [address] May, [facility] [address] [id number] [place] [address] May, [facility] [address] [id number] [place] [address] May, [facility] [address] [id number] [place] [address] May, [facility] [address] [id number] [place] [address] Apr, [facility] [address] [id number] [place] [address] Apr, [facility] [address] [id number] [place] [address] Apr, [facility] [address] [id number] [place] [address] Apr, [facility] [address] [id number] [place] [address] Apr, [facility] [address] [id number] [place] [address] Apr, [facility] [address] [id number] [place] [address] 18 Apr, 2013 [facility] [address] [id number] [place] [address] 18 Apr, 2013 [facility] [address] [id number] [place] [address] 17 Apr, 2013 [facility] [address] [id number] [place] [address] Apr, [facility] [address] [id number] [place] [address] Apr, [facility] [address] [id number] [place] [address] Apr, [facility] [address] [id number] [place] [address] Apr, [facility] [address] [id number] [place] [address] Apr, [facility] [address] [id number] [place] [address] Apr, [facility] [address] [id number] [place] [address] Apr, [facility] [address] [id number] [place] [address] Apr, [facility] [address] [id number] [place] [address] Apr, [facility] [address] [id number] [place] [address] Mar, [facility] [address] [id number] [place] [address] Mar, [facility] [address] [id number] [place] [address] Mar, [facility] [address] [id number] [place] [address] 14 Mar, 2013 [facility] [address] [id number] [place] [address] Mar, [facility] [address] [id number] [place] [address] Mar, [facility] [address] [id number] [place] [address] Mar, [facility] [address] [id number] [place] [address] Mar, [facility] [address] [id number] [place] [address] Mar, [facility] [address] [id number] [place] [address] Mar, [facility] [address] [id number] [place] [address] Mar, [facility] [address] [facility] [id number] [facility] [place] [address] Feb, [facility] [address] [facility] [id number] [facility] [place] [address] Feb, [facility] [address] [id number] [facility] [place] [address] Feb, [facility] [address] [facility] [id number] [facility] [place] [address] Feb, [facility] [address] [facility] [id number] [facility] [place] [address] Feb, [facility] [address] [id number] [facility] [place] [address] Dec, [facility] [address] [id number] [place] [address] Dec, [facility] [address] [id number] [place] [address] Dec, [facility] [address] [facility] [id number] [facility] [place] [address] Dec, [facility] [address] [id number] [facility] [place] [address] Nov, [facility] [address] [id number] [place] [address] Nov, [facility] [address] [id number] [place] [address] Nov, [facility] [address] [facility] [id number] [facility] [place] [address] Nov, [facility] [address] [id number] [place] [address] Nov, [facility] [address] [facility] [id number] [facility] [place] [address] Nov, [facility] [address] [id number] [facility] [place] [address] Oct, [facility] [address] [facility] [id number] [facility] [place] [address] Oct, [facility] [address] [id number] [place] [address] Oct, [facility] [address] [id number] [place] [address] Oct, [facility] [address] [id number] [place] [address] September, [facility] [address] [id number] [place] [address] September, [facility] [address] [id number] [place] [address] September, [facility] [address] [id number] [place] [address] September, [facility] [address] [id number] [place] [address] September, [facility] [address] [id number] [place] [address] September, [facility] [address] [id number] [place] [address] September, [facility] [address] [id number] [place] [address] September, [facility] [address] [id number] [place] [address] Aug, [facility] [address] [id number] [place] [address] Aug, [facility] [address] [id number] [place] [address] Jul, [facility] [address] [id number] [place] [address] Jun, [facility] [address] [id number] [place] [address] May, [facility] [address] [id number] [place] [address] May, [facility] [address] [id number] [place] [address] May, [facility] [address] [id number] [place] [address] May, [facility] [address] [id number] [place] [address] Apr, [facility] [address] [id number] [place] [address] Apr, [facility] [address] [id number] [place] [address] Apr, [facility] [address] [id number] [place] [address] Apr, [facility] [address] [id number] [place] [address] Apr, [facility] [address] [id number] [place] [address] Apr, [facility] [address] [id number] [place] [address] Apr, [facility] [address] [id number] [place] [address] Apr, [facility] [address] [id number] [place] [address] Apr, [facility] [address] [id number] [place] [address] 30 Mar, 2012 [facility] [address] [id number] [place] [address] 30 Mar, 2012 [facility] [address] [id number] [place] [address] Mar, [facility] [address] [id number] [place] [address] 27 Mar, 2012 [facility] [address] [id number] [place] [address] 16 Mar, 2012 [facility] [address] [id number] [place] [address] 16 Mar, 2012 [facility] [address] [id number] [place] [address] 16 Mar, 2012 [facility] [address] [id number] [place] [address] 16 Mar, 2012 [facility] [address] [id number] [place] [address] 16 Mar, 2012 [facility] [address] [id number] [place] [address] 16 Mar, 2012 [facility] [address] [id number] [place] [address] 14 Mar, 2012 [facility] [address] [id number] [place] [address] 14 Mar, 2012 [facility] [address] [id number] [place] [address] 13 Mar, 2012 [facility] [address] [id number] [place] [address] 13 Mar, 2012 [facility] [address] [id number] [place] [address] 06 Mar, 2012 [facility] [address] [id number] [place] [address] Mar, [facility] [address] [id number] [place] [address] Mar, [facility] [address] [id number] [place] [address] Mar, [facility] [address] [id number] [place] [address] Mar, [facility] [address] [id number] [place] [address] Feb, [facility] [address] [id number] [place] [address] Feb, [facility] [address] [id number] [place] [address] Feb, [facility] [id number] [place] [address] Feb, [facility] [address] [id number] [place] [address] Jan, [facility] [address] [id number] [place] [address] Jan, [facility] [address] [id number] [place] [address] Dec, [facility] [address] [id number] [place] [address] Dec, [facility] [address] [id number] [place] [address] Dec, [facility] [address] [id number] [place] [address] Nov, [facility] [address] [id number] [place] [address] Nov, [facility] [address] [id number] [place] [address] Oct, [facility] [address] [id number] [place] [address] Oct, [facility] [address] [id number] [place] [address] September, [facility] [address] [id number] [place] [address] September, [facility] [address] [id number] [place] [address] September, [facility] [address] [id number] [place] [address] September, [facility] [address] [id number] [place] [address] Aug, [facility] [address] [id number] [place] [address] Jul, [facility] [address] [id number] [place] [address] Jul, [facility] [address] [id number] [place] [address] Jun, [facility] [address] [id number] [place] [address] Jun, [facility] [address] [id number] [place] [address] Jun, [facility] [address] [id number] [place] [address] May, [facility] [address] [id number] [place] [address] May, [facility] [address] [id number] [place] [address] May, [facility] [address] [id number] [place] [address] May, [facility] [address] [id number] [place] [address] Apr, [facility] [address] [id number] [place] [address] Apr, [facility] [address] [id number] [place] [address] Apr, [facility] [address] [id number] [place] [address] Mar, [facility] [address] [id number] [place] [address] Mar, [facility] [address] [id number] [place] [address] Mar, [facility] [address] [id number] [place] [address] Mar, [facility] [address] [id number] [place] [address] Mar, [facility] [address] [id number] [place] [address] Feb, [facility] [address] [id number] [place] [address] 25 Feb, 2011 [facility] [address] [id number] [place] [address] 17 Feb, 2011 [facility] [address] [id number] [place] [address] Feb, [facility] [address] [id number] [place] [address] Feb, [facility] [address] [id number] [place] [address] Feb, [facility] [address] [id number] [place] [address] Feb, [facility] [address] [id number] [place] [address] 28 Apr, 2010 [facility] [address] [id number] [place] [address] 23 Apr, 2010 [facility] [address] [id number] [place] [address] 15 Apr, 2010 [facility] [address] [id number] [place] [address] 15 Apr, 2010 [facility] [address] [id number] [place] [address] 02 Apr, 2010 [facility] [address] [id number] [place] [address] 02 Apr, 2010 [facility] [address] [id number] [place] [address] 18 Mar, 2010 [facility] [address] [id number] [place] [address] 18 Mar, 2010 [facility] [address] [id number] [place] [address] 17 Mar, 2010 [facility] [address] [id number] [place] [address] 16 Mar, 2010 [facility] [address] [id number] [place] [address] 10 Mar, 2010 [facility] [address] [id number] [place] [address] Mar, [facility] [address] [id number] [place] [address] Mar, [facility] [address] [id number] [place] [address] Mar, [facility] [address] [id number] [place] [address] Feb, [facility] [address] [id number] [place] [address] Feb, [facility] [address] [id number] [place] [address] Dec, [facility] [address] [id number] [place] [address] Jun, [facility] [address] [id number] [place] [address] Jun, [facility] [address] [id number] [place] [address] May, [facility] [address] [id number] [place] [address] 26 Feb, 2009 [facility] [address] [id number] [place] [address] 19 Feb, 2009 [facility] [address] [id number] [place] [address] 19 Feb, 2009 [facility] [address] [id number] [place] [address] 15 Feb, 2009 [facility] [address] [id number] [place] [address] 15 Feb, 2009 [facility] [address] [id number] [place] [address] 13 Feb, 2009 [facility] [address] [id number] [place] [address] 13 Feb, 2009 [facility] [address] [id number] [place] [address] Jul, [facility] [address] [facility] [id number] [place] [address] Jun, IMMUNIZATIONS No Known Immunizations SOCIAL HISTORY [...] 08/2014 Hospitalization History Rt hand post op infection-[facility] 7 Hospitalization History cellulitus Right elbow-[facility] 12/09/16
--- OUTSIDE RECORDS SUMMARY | 2019-07-25 06:38 | XMS REPORT ---
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 [place] [address] Mar, [facility] [place] [facility] [address] [id number] [place] [address] Mar, [facility] [place] [facility] [address] [id number] [place] [address] Feb, [facility] [place] [facility] [address] [id number] [place] [address] 16 Feb, 2014 [facility] [place] [facility] [address] [id number] [place] [address] 18 Jan, 2014 [facility] [place] [facility] [address] [id number] [place] [address] 18 Jan, 2014 [facility] [place] [facility] [address] [id number] [place] [address] 18 Jan, 2014 [facility] [place] [facility] [address] [id number] [place] [address] 18 Jan, 2014 [facility] [place] [facility] [address] [id number] [place] [address] 12 Jan, 2013 [facility] [place] [facility] [address] [id number] [place] [address] 12 Jan, 2013 [facility] [place] [facility] [address] [facility] [id number] [place] [id number] 09 Jan, 2013 [facility] [place] [facility] [address] [id number] [place] [address] 09 Jan, 2013 [facility] [place] [facility] [address] [id number] [place] [address] Jan, [facility] [place] [facility] [address] [id number] [place] [address] Jan, [facility] [place] [facility] [address] [facility] [id number] [place] [address] Dec, [facility] [place] [facility] [address] [facility] [id number] [place] [address] Dec, [facility] [place] [facility] [address] [id number] [place] [address] Dec, [facility] [place] [facility] [address] [id number] [place] [address] Dec, [facility] [place] [facility] [address] [id number] [place] [address] Dec, [facility] [place] [facility] [address] [id number] [place] [address] Dec, [facility] [place] [facility] [address] [id number] [place] [address] Dec, [facility] [place] [facility] [address] [facility] [id number] [place] [address] Dec, [facility] [place] [facility] [address] [facility] [id number] [place] [address] Dec, [facility] [place] [facility] [address] [facility] [id number] [place] [address] Nov, [facility] [place] [facility] [address] [id number] [place] [address] Nov, [facility] [place] [facility] [address] [facility] [id number] [place] [address] Nov, [facility] [place] [facility] [address] [id number] [place] [address] Nov, [facility] [place] [facility] [address] [facility] [id number] [place] [address] Nov, [facility] [place] [facility] [address] [id number] [place] [address] Nov, [facility] [place] [facility] [address] [id number] [place] [address] Nov, 2013 [facility] [place] [facility] [address] [id number] [place] [address] Nov, 2013 [facility] [place] [facility] [address] [id number] [place] [address] Nov, 2013 [facility] [place] [facility] [address] [id number] [place] [address] Nov, 2013 [facility] [place] [facility] [address] [id number] [place] [address] Nov, 2013 [facility] [place] [facility] [address] [facility] [id number] [place] [address] Nov, 2013 [facility] [place] [facility] [address] [id number] [place] [address] Nov, 2013 [facility] [place] [facility] [address] [id number] [place] [address] Nov, [facility] [place] [facility] [address] [id number] [place] [address] Nov, 2013 [facility] [place] [facility] [address] [id number] [place] [address] Oct, [facility] [place] [facility] [address] [id number] [place] [address] Oct, [facility] [place] [facility] [address] [id number] [place] [address] Oct, [facility] [place] [facility] [address] [id number] [place] [address] Oct, [facility] [place] [facility] [address] [id number] [place] [address] Oct, [facility] [place] [facility] [address] [id number] [place] [address] Oct, [facility] [place] [facility] [address] [id number] [place] [address] Oct, [facility] [place] [facility] [address] [id number] [place] [address] Oct, [facility] [place] [facility] [address] [id number] [place] [address] Oct, [facility] [place] [facility] [address] [facility] [id number] [place] [address] Oct, [facility] [place] [facility] [address] [id number] [place] [address] Oct, [facility] [place] [facility] [address] [id number] [place] [address] Oct, [facility] [place] [facility] [address] [facility] [id number] [place] [address] Oct, [facility] [place] [facility] [address] [id number] [place] [address] Oct, [facility] [place] [facility] [address] [id number] [place] [address] September, [facility] [place] [facility] [address] [id number] [place] [address] September, [facility] [place] [facility] [address] [id number] [place] [address] September, [facility] [place] [facility] [address] [id number] [place] [address] September, [facility] [place] [facility] [address] [id number] [place] [address] September, [facility] [place] [facility] [address] [id number] [place] [address] September, [facility] [place] [facility] [address] [id number] [place] [address] September, [facility] [place] [facility] [address] [facility] [id number] [place] [address] September, [facility] [place] [facility] [address] [id number] [place] [address] September, [facility] [place] [facility] [address] [id number] [place] [address] September, [facility] [place] [facility] [address] [id number] [place] [address] September, [facility] [place] [facility] [address] [facility] [id number] [place] [address] September, [facility] [place] [facility] [address] [facility] [id number] [place] [address] September, [facility] [place] [facility] [address] [id number] [place] [address] Aug, [facility] [place] [facility] [address] [facility] [id number] [place] [address] Aug, [facility] [place] [facility] [address] [facility] [id number] [place] [address] Aug, [facility] [place] [facility] [address] [facility] [id number] [place] [address] Aug, [facility] [place] [facility] [address] [id number] [place] [address] Aug, [facility] [place] [facility] [address] [id number] [place] [address] Aug, [facility] [place] [facility] [address] [id number] [place] [address] Aug, [facility] [place] [facility] [address] [id number] [place] [address] Aug, [facility] [place] [facility] [address] [id number] [place] [address] Aug, [facility] [place] [facility] [address] [id number] [place] [address] Aug, [facility] [place] [facility] [address] [facility] [id number] [place] [address] Jul, [facility] [place] [facility] [address] [id number] [place] [address] Jul, [facility] [place] [facility] [address] [id number] [place] [address] Jul, [facility] [place] [facility] [address] [id number] [place] [address] Jul, [facility] [place] [facility] [address] [id number] [place] [address] Jul, [facility] [place] [facility] [address] [facility] [id number] [place] [address] Jul, [facility] [place] [facility] [address] [id number] [place] [address] Jul, [facility] [place] [facility] [address] [id number] [place] [address] Jul, [facility] [place] [facility] [address] [id number] [place] [address] Jun, [facility] [place] [facility] [address] [id number] [place] [address] Jun, [facility] [place] [facility] [address] [id number] [place] [address] 14 Jun, 2013 [facility] [place] [facility] [address] [id number] [place] [address] 14 Jun, 2013 [facility] [place] [facility] [address] [id number] [place] [address] Jun, [facility] [place] [facility] [address] [id number] [place] [address] Jun, [facility] [place] [facility] [address] [id number] [place] [address] 06 Jun, 2013 [facility] [place] [facility] [address] [id number] [place] [address] Jun, [facility] [place] [facility] [address] [id number] [place] [address] Jun, [facility] [place] [facility] [address] [id number] [place] [address] Jun, [facility] [place] [facility] [address] [id number] [place] [address] Jun, [facility] [place] [facility] [address] [id number] [place] [address] Jun, [facility] [place] [facility] [address] [id number] [place] [address] Jun, [facility] [place] [facility] [address] [id number] [place] [address] Jun, [facility] [place] [facility] [address] [id number] [place] [address] May, [facility] [place] [facility] [address] [id number] [place] [address] May, [facility] [place] [facility] [address] [id number] [place] [address] May, [facility] [place] [facility] [address] [id number] [place] [address] May, [facility] [place] [facility] [address] [id number] [place] [address] May, [facility] [place] [facility] [address] [id number] [place] [address] May, [facility] [address] [id number] [place] [address] May, [facility] [address] [id number] [place] [address] May, [facility] [address] [id number] [place] [address] May, [facility] [address] [id number] [place] [address] May, [facility] [address] [id number] [place] [address] May, [facility] [address] [id number] [place] [address] May, [facility] [address] [id number] [place] [address] May, [facility] [address] [id number] [place] [address] May, [facility] [address] [id number] [place] [address] May, [facility] [address] [id number] [place] [address] May, [facility] [address] [id number] [place] [address] May, [facility] [address] [id number] [place] [address] May, [facility] [address] [id number] [place] [address] May, [facility] [address] [id number] [place] [address] May, [facility] [address] [id number] [place] [address] Apr, [facility] [address] [id number] [place] [address] Apr, [facility] [address] [id number] [place] [address] Apr, [facility] [address] [id number] [place] [address] Apr, [facility] [address] [id number] [place] [address] Apr, [facility] [address] [id number] [place] [address] Apr, [facility] [address] [id number] [place] [address] 18 Apr, 2013 [facility] [address] [id number] [place] [address] 18 Apr, 2013 [facility] [address] [id number] [place] [address] 17 Apr, 2013 [facility] [address] [id number] [place] [address] Apr, [facility] [address] [id number] [place] [address] Apr, [facility] [address] [id number] [place] [address] Apr, [facility] [address] [id number] [place] [address] Apr, [facility] [address] [id number] [place] [address] Apr, [facility] [address] [id number] [place] [address] Apr, [facility] [address] [id number] [place] [address] Apr, [facility] [address] [id number] [place] [address] Apr, [facility] [address] [id number] [place] [address] Apr, [facility] [address] [id number] [place] [address] Mar, [facility] [address] [id number] [place] [address] Mar, [facility] [address] [id number] [place] [address] Mar, [facility] [address] [id number] [place] [address] 14 Mar, 2013 [facility] [address] [id number] [place] [address] Mar, [facility] [address] [id number] [place] [address] Mar, [facility] [address] [id number] [place] [address] Mar, [facility] [address] [id number] [place] [address] Mar, [facility] [address] [id number] [place] [address] Mar, [facility] [address] [id number] [place] [address] Mar, [facility] [address] [id number] [place] [address] Mar, [facility] [address] [facility] [id number] [place] [address] Feb, [facility] [address] [facility] [id number] [place] [address] Feb, [facility] [place] [address] [id number] [place] [address] Feb, [facility] [place] [address] [facility] [id number] [place] [address] Feb, [facility] [address] [facility] [id number] [place] [address] Feb, [facility] [place] [address] [id number] [place] [address] Dec, [facility] [address] [id number] [place] [address] Dec, [facility] [address] [id number] [place] [address] Dec, [facility] [address] [facility] [id number] [place] [address] Dec, [facility] [address] [id number] [place] [address] Nov, [facility] [address] [id number] [place] [address] Nov, [facility] [address] [facility] [id number] [place] [address] Nov, [facility] [address] [facility] [id number] [place] [address] Nov, [facility] [address] [facility] [id number] [place] [address] Nov, [facility] [address] [facility] [id number] [place] [address] Nov, [facility] [address] [facility] [id number] [place] [address] Oct, [facility] [address] [facility] [id number] [place] [address] Oct, [facility] [address] [id number] [place] [address] Oct, [facility] [address] [facility] [id number] [place] [address] Oct, [facility] [address] [facility] [id number] [place] [address] September, [facility] [address] [facility] [id number] [place] [address] September, [facility] [address] [facility] [id number] [place] [address] September, [facility] [address] [facility] [id number] [place] [address] September, [facility] [address] [facility] [id number] [place] [address] September, [facility] [address] [facility] [id number] [place] [address] September, [facility] [address] [facility] [id number] [place] [address] September, [facility] [address] [facility] [id number] [place] [address] September, [facility] [address] [facility] [id number] [place] [address] Aug, [facility] [address] [facility] [id number] [place] [address] Aug, [facility] [address] [facility] [id number] [place] [address] Jul, [facility] [address] [facility] [id number] [place] [address] Jun, [facility] [address] [facility] [id number] [place] [address] May, [facility] [address] [facility] [id number] [place] [address] May, [facility] [address] [facility] [id number] [place] [address] May, [facility] [address] [facility] [id number] [place] [address] May, [facility] [address] [facility] [id number] [place] [address] Apr, [facility] [address] [facility] [id number] [place] [address] Apr, [facility] [address] [facility] [id number] [place] [address] Apr, [facility] [address] [facility] [id number] [place] [address] Apr, [facility] [address] [facility] [id number] [place] [address] Apr, [facility] [address] [facility] [id number] [place] [address] Apr, [facility] [address] [facility] [id number] [place] [address] Apr, [facility] [address] [facility] [id number] [place] [address] Apr, [facility] [address] [facility] [id number] [place] [address] Apr, [facility] [address] [facility] [id number] [place] [address] 30 Mar, 2012 [facility] [address] [facility] [id number] [place] [address] 30 Mar, 2012 [facility] [address] [facility] [id number] [place] [address] Mar, [facility] [address] [facility] [id number] [place] [address] 27 Mar, 2012 [facility] [address] [facility] [id number] [place] [address] 16 Mar, 2012 [facility] [address] [facility] [id number] [place] [address] 16 Mar, 2012 [facility] [address] [facility] [id number] [place] [address] 16 Mar, 2012 [facility] [address] [facility] [id number] [place] [address] 16 Mar, 2012 [facility] [address] [facility] [id number] [place] [address] 16 Mar, 2012 [facility] [address] [facility] [id number] [place] [address] 16 Mar, 2012 [facility] [address] [facility] [id number] [place] [address] 14 Mar, 2012 [facility] [address] [facility] [id number] [place] [address] 14 Mar, 2012 [facility] [address] [facility] [id number] [place] [address] 13 Mar, 2012 [facility] [address] [facility] [id number] [place] [address] 13 Mar, 2012 [facility] [address] [facility] [id number] [place] [address] 06 Mar, 2012 [facility] [address] [facility] [id number] [place] [address] Mar, [facility] [address] [facility] [id number] [place] [address] Mar, [facility] [address] [facility] [id number] [place] [address] Mar, [facility] [address] [facility] [id number] [place] [address] Mar, [facility] [address] [facility] [id number] [place] [address] Feb, [facility] [address] [facility] [id number] [place] [address] Feb, [facility] [address] [facility] [id number] [place] [address] Feb, [facility] [address] [id number] [place] [address] Feb, [facility] [address] [facility] [id number] [place] [address] Jan, [facility] [address] [facility] [id number] [place] [address] Jan, [facility] [address] [facility] [id number] [place] [address] Dec, [facility] [address] [facility] [id number] [place] [address] Dec, [facility] [address] [facility] [id number] [place] [address] Dec, [facility] [address] [facility] [id number] [place] [address] Nov, [facility] [address] [facility] [id number] [place] [address] Nov, [facility] [address] [facility] [id number] [place] [address] Oct, [facility] [address] [facility] [id number] [place] [address] Oct, [facility] [address] [facility] [id number] [place] [address] September, [facility] [address] [facility] [id number] [place] [address] September, [facility] [address] [facility] [id number] [place] [address] September, [facility] [address] [facility] [id number] [place] [address] September, [facility] [address] [facility] [id number] [place] [address] Aug, [facility] [address] [facility] [id number] [place] [address] Jul, [facility] [address] [facility] [id number] [place] [address] Jul, [facility] [address] [facility] [id number] [place] [address] Jun, [facility] [address] [facility] [id number] [place] [address] Jun, [facility] [address] [facility] [id number] [place] [address] Jun, [facility] [address] [facility] [id number] [place] [address] May, [facility] [address] [facility] [id number] [place] [address] May, [facility] [address] [facility] [id number] [place] [address] May, [facility] [address] [facility] [id number] [place] [address] May, [facility] [address] [facility] [id number] [place] [address] Apr, [facility] [address] [facility] [id number] [place] [address] Apr, [facility] [address] [facility] [id number] [place] [address] Apr[facility] [address] [facility] [id number] [place] [address] Mar, [facility] [address] [facility] [id number] [place] [address] Mar, [facility] [address] [facility] [id number] [place] [address] Mar, [facility] [address] [facility] [id number] [place] [address] Mar, [facility] [address] [facility] [id number] [place] [address] Mar, [facility] [address] [facility] [id number] [place] [address] Feb, [facility] [address] [facility] [id number] [place] [address] 25 Feb, 2011 [facility] [address] [facility] [id number] [place] [address] 17 Feb, 2011 [facility] [address] [facility] [id number] [place] [address] Feb, [facility] [address] [facility] [id number] [place] [address] Feb, [facility] [address] [facility] [id number] [place] [address] Feb, [facility] [address] [facility] [id number] [place] [address] Feb, [facility] [address] [facility] [id number] [place] [address] 28 Apr, 2010 [facility] [address] [facility] [id number] [place] [address] 23 Apr, 2010 [facility] [address] [facility] [id number] [place] [address] 15 Apr, 2010 [facility] [address] [facility] [id number] [place] [address] 15 Apr, 2010 [facility] [address] [facility] [id number] [place] [address] 02 Apr, 2010 [facility] [address] [facility] [id number] [place] [address] 02 Apr, 2010 [facility] [address] [facility] [id number] [place] [address] 18 Mar, 2010 [facility] [address] [facility] [id number] [place] [address] 18 Mar, 2010 [facility] [address] [facility] [id number] [place] [address] 17 Mar, 2010 [facility] [address] [facility] [id number] [place] [address] 16 Mar, 2010 [facility] [address] [facility] [id number] [place] [address] 10 Mar, 2010 [facility] [address] [facility] [id number] [place] [address] Mar, [facility] [address] [facility] [id number] [place] [address] Mar, [facility] [address] [facility] [id number] [place] [address] Mar, [facility] [address] [facility] [id number] [place] [address] Feb, [facility] [address] [facility] [id number] [place] [address] Feb, [facility] [address] [facility] [id number] [place] [address] Dec, [facility] [address] [facility] [id number] [place] [address] Jun, [facility] [address] [facility] [id number] [place] [address] Jun, [facility] [address] [facility] [id number] [place] [address] May, [facility] [address] [facility] [id number] [place] [address] 26 Feb, 2009 [facility] [address] [facility] [id number] [place] [address] 19 Feb, 2009 [facility] [address] [facility] [id number] [place] [address] 19 Feb, 2009 [facility] [address] [facility] [id number] [place] [address] 15 Feb, 2009 [facility] [address] [facility] [id number] [place] [address] 15 Feb, 2009 [facility] [address] [facility] [id number] [place] [address] 13 Feb, 2009 [facility] [address] [facility] [id number] [place] [address] 13 Feb, 2009 [facility] [address] [facility] [id number] [place] [address] Jul, [facility] [address] [facility] [id number] [place] [address] Jun, IMMUNIZATIONS No Known Immunizations SOCIAL HISTORY [...] 08/2014 Hospitalization History Rt hand post op infection-[facility] 7 Hospitalization History cellulitus Right elbow-[facility] 12/09/16
--- OUTSIDE RECORDS SUMMARY | 2019-07-25 06:39 | XMS REPORT ---
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 [facility] [place] [facility] [address] [facility] [id number] [place] [address] May, [facility] [place] [facility] [address] [facility] [id number] [place] [address] Apr, [facility] [place] [facility] [address] [id number] [place] [address] Apr, [facility] [place] [facility] [address] [facility] [id number] [place] [address] Apr, [facility] [place] [facility] [address] [facility] [id number] [place] [address] Apr, [facility] [place] [facility] [address] [id number] [place] [address] Mar, [facility] [place] [facility] [address] [facility] [id number] [place] [address] Mar, [facility] [place] [facility] [address] [facility] [id number] [place] [address] Mar, [facility] [place] [facility] [address] [id number] [place] [address] Mar, [facility] [place] [facility] [address] [facility] [id number] [place] [address] Mar, [facility] [place] [facility] [address] [id number] [place] [address] Mar, [facility] [place] [facility] [address] [facility] [id number] [place] [address] Feb, [facility] [place] [facility] [address] [facility] [id number] [place] [address] 16 Feb, 2014 [facility] [place] [facility] [address] [id number] [place] [address] 18 Jan, 2013 [facility] [place] [facility] [address] [id number] [place] [address] 18 Jan, 2013 [facility] [place] [facility] [address] [facility] [id number] [place] [address] 18 Jan, 2014 [facility] [place] [facility] [address] [facility] [id number] [place] [address] 18 Jan, 2013 [facility] [place] [facility] [address] [id number] [place] [address] 12 Jan, 2013 [facility] [place] [facility] [address] [facility] [id number] [place] [address] 12 Jan, 2013 [facility] [place] [facility] [address] [facility] [id number] [place] [id number] 09 Jan, 2013 [facility] [place] [facility] [address] [facility] [id number] [place] [address] 09 Jan, 2013 [facility] [place] [facility] [address] [id number] [place] [address] 02 Jan, 2013 [facility] [place] [facility] [address] [facility] [id number] [place] [address] Jan, [facility] [place] [facility] [address] [id number] [place] [address] Dec, [facility] [place] [facility] [address] [facility] [id number] [place] [address] Dec, [facility] [place] [facility] [address] [facility] [id number] [place] [address] Dec, [facility] [place] [facility] [address] [id number] [place] [address] Dec, [facility] [place] [facility] [address] [id number] [place] [address] Dec, [facility] [place] [facility] [address] [id number] [place] [address] Dec, [facility] [place] [facility] [address] [id number] [place] [address] Dec, [facility] [place] [facility] [address] [id number] [place] [address] Dec, [facility] [place] [facility] [address] [facility] [id number] [place] [address] Dec, [facility] [place] [facility] [address] [facility] [id number] [place] [address] Nov, [facility] [place] [facility] [address] [facility] [id number] [place] [address] Nov, [facility] [place] [facility] [address] [id number] [place] [address] Nov, [facility] [place] [facility] [address] [facility] [id number] [place] [address] Nov, [facility] [place] [facility] [address] [id number] [place] [address] Nov, [facility] [place] [facility] [address] [facility] [id number] [place] [address] Nov, [facility] [place] [facility] [address] [facility] [id number] [place] [address] Nov, [facility] [place] [facility] [address] [id number] [place] [address] Nov, 2013 [facility] [place] [facility] [address] [id number] [place] [address] Nov, 2013 [facility] [place] [facility] [address] [facility] [id number] [place] [address] Nov, 2013 [facility] [place] [facility] [address] [facility] [id number] [place] [address] Nov, 2013 [facility] [place] [facility] [address] [facility] [id number] [place] [address] Nov, 2013 [facility] [place] [facility] [address] [facility] [id number] [place] [address] Nov, 2013 [facility] [place] [facility] [address] [facility] [id number] [place] [address] Nov, [facility] [place] [facility] [address] [facility] [id number] [place] [address] Nov, [facility] [place] [facility] [address] [facility] [id number] [place] [address] Oct, [facility] [place] [facility] [address] [id number] [place] [address] Oct, [facility] [place] [facility] [address] [id number] [place] [address] Oct, [facility] [place] [facility] [address] [facility] [id number] [place] [address] Oct, [facility] [place] [facility] [address] [facility] [id number] [place] [address] Oct, [facility] [place] [facility] [address] [facility] [id number] [place] [address] Oct, [facility] [place] [facility] [address] [id number] [place] [address] Oct, [facility] [place] [facility] [address] [facility] [id number] [place] [address] Oct, [facility] [place] [facility] [address] [facility] [id number] [place] [address] Oct, [facility] [place] [facility] [address] [facility] [id number] [place] [address] Oct, [facility] [place] [facility] [address] [facility] [id number] [place] [address] Oct, [facility] [place] [facility] [address] [id number] [place] [address] Oct, [facility] [place] [facility] [address] [facility] [id number] [place] [address] Oct, [facility] [place] [facility] [address] [facility] [id number] [place] [address] Oct, [facility] [place] [facility] [address] [facility] [id number] [place] [address] September, [facility] [place] [facility] [address] [facility] [id number] [place] [address] September, [facility] [place] [facility] [address] [facility] [id number] [place] [address] September, [facility] [place] [facility] [address] [facility] [id number] [place] [address] September, [facility] [place] [facility] [address] [facility] [id number] [place] [address] September, [facility] [place] [facility] [address] [id number] [place] [address] September, [facility] [place] [facility] [address] [facility] [id number] [place] [address] September, [facility] [place] [facility] [address] [facility] [id number] [place] [address] September, [facility] [place] [facility] [address] [id number] [place] [address] September, [facility] [place] [facility] [address] [id number] [place] [address] September, [facility] [place] [facility] [address] [id number] [place] [address] September, [facility] [place] [facility] [address] [id number] [place] [address] September, [facility] [place] [facility] [address] [facility] [id number] [place] [address] September, [facility] [place] [facility] [address] [facility] [id number] [place] [address] Aug, [facility] [place] [facility] [address] [id number] [place] [address] Aug, [facility] [place] [facility] [address] [facility] [id number] [place] [address] Aug, [facility] [place] [facility] [address] [facility] [id number] [place] [address] Aug, [facility] [place] [facility] [address] [id number] [place] [address] Aug, [facility] [place] [facility] [address] [id number] [place] [address] Aug, [facility] [place] [facility] [address] [id number] [place] [address] Aug, [facility] [place] [facility] [address] [facility] [id number] [place] [address] Aug, [facility] [place] [facility] [address] [id number] [place] [address] Aug, [facility] [place] [facility] [address] [id number] [place] [address] Aug, [facility] [place] [facility] [address] [id number] [place] [address] Jul, [facility] [place] [facility] [address] [facility] [id number] [place] [address] Jul, [facility] [place] [facility] [address] [id number] [place] [address] Jul, [facility] [place] [facility] [address] [id number] [place] [address] Jul, [facility] [place] [facility] [address] [id number] [place] [address] Jul, [facility] [place] [facility] [address] [id number] [place] [address] Jul, [facility] [place] [facility] [address] [id number] [place] [address] Jul, [facility] [place] [facility] [address] [id number] [place] [address] Jul, [facility] [place] [facility] [address] [id number] [place] [address] Jun, [facility] [place] [facility] [address] [id number] [place] [address] Jun, [facility] [place] [facility] [address] [id number] [place] [address] 14 Jun, 2013 [facility] [place] [facility] [address] [id number] [place] [address] 14 Jun, 2013 [facility] [place] [facility] [address] [id number] [place] [address] Jun, [facility] [place] [facility] [address] [id number] [place] [address] Jun, [facility] [place] [facility] [address] [id number] [place] [address] Jun, [facility] [place] [facility] [address] [id number] [place] [address] Jun, [facility] [place] [facility] [address] [id number] [place] [address] Jun, [facility] [place] [facility] [address] [id number] [place] [address] Jun, [facility] [place] [facility] [address] [id number] [place] [address] Jun, [facility] [place] [facility] [address] [id number] [place] [address] Jun, [facility] [place] [facility] [address] [id number] [place] [address] 02 Jun, 2013 [facility] [place] [facility] [address] [id number] [place] [address] Jun, [facility] [place] [facility] [address] [id number] [place] [address] May, [facility] [place] [facility] [address] [id number] [place] [address] May, [facility] [place] [facility] [address] [id number] [place] [address] May, [facility] [place] [facility] [address] [id number] [place] [address] May, [facility] [place] [facility] [address] [id number] [place] [address] May, [facility] [place] [facility] [address] [id number] [place] [address] May, [facility] [place] [facility] [address] [id number] [place] [address] May, [facility] [place] [facility] [address] [id number] [place] [address] May, [facility] [place] [facility] [address] [id number] [place] [address] May, [facility] [place] [facility] [address] [id number] [place] [address] May, [facility] [place] [facility] [address] [id number] [place] [address] May, [facility] [place] [facility] [id number] [place] [address] May, [facility] [place] [facility] [id number] [place] [address] May, [facility] [place] [facility] [id number] [place] [address] May, [facility] [place] [facility] [id number] [place] [address] May, [facility] [place] [facility] [id number] [place] [address] May, [facility] [place] [facility] [id number] [place] [address] May, [facility] [place] [facility] [id number] [place] [address] May, [facility] [place] [facility] [id number] [place] [address] May, [facility] [place] [facility] [id number] [place] [address] May, [facility] [place] [facility] [id number] [place] [address] Apr, [facility] [place] [facility] [id number] [place] [address] Apr, [facility] [place] [facility] [id number] [place] [address] Apr, [facility] [place] [facility] [id number] [place] [address] Apr, [facility] [place] [facility] [id number] [place] [address] Apr, [facility] [place] [facility] [id number] [place] [address] Apr, [facility] [place] [facility] [id number] [place] [address] Apr, [facility] [place] [facility] [id number] [place] [address] 18 Apr, 2013 [facility] [place] [facility] [id number] [place] [address] Apr, [facility] [place] [facility] [id number] [place] [address] 17 Apr, 2013 [facility] [place] [facility] [id number] [place] [address] Apr, [facility] [place] [facility] [id number] [place] [address] Apr, [facility] [place] [facility] [id number] [place] [address] Apr, [facility] [place] [facility] [id number] [place] [address] Apr, 2012 [facility] [place] [facility] [id number] [place] [address] Apr, [facility] [place] [facility] [id number] [place] [address] Apr, [facility] [place] [facility] [id number] [place] [address] Apr, [facility] [place] [facility] [id number] [place] [address] Apr, [facility] [place] [facility] [id number] [place] [address] Mar, [facility] [place] [facility] [id number] [place] [address] Mar, [facility] [place] [facility] [id number] [place] [address] Mar, [facility] [place] [facility] [id number] [place] [address] Mar, [facility] [place] [facility] [id number] [place] [address] Mar, [facility] [place] [facility] [id number] [place] [address] Mar, [facility] [place] [facility] [id number] [place] [address] Mar, [facility] [place] [facility] [id number] [place] [address] Mar, [facility] [place] [facility] [id number] [place] [address] Mar, [facility] [place] [facility] [id number] [place] [address] Mar, [facility] [place] [facility] [id number] [place] [address] Mar, [facility] [place] [facility] [id number] [place] [address] Feb, [facility] [place] [facility] [address] [facility] [id number] [place] [address] Feb, [facility] [place] [facility] [address] [facility] [id number] [place] [address] Feb, [facility] [place] [facility] [id number] [place] [address] Feb, [facility] [place] [facility] [address] [facility] [id number] [place] [address] Feb, [facility] [place] [facility] [address] [facility] [id number] [place] [address] Dec, [facility] [place] [facility] [id number] [place] [address] Dec, [facility] [place] [facility] [id number] [place] [address] Dec, [facility] [place] [facility] [id number] [place] [address] Dec, [facility] [place] [facility] [address] [facility] [id number] [place] [address] Nov, [facility] [place] [facility] [id number] [place] [address] Nov, [facility] [place] [facility] [id number] [place] [address] Nov, [facility] [place] [facility] [id number] [place] [address] Nov, [facility] [place] [facility] [address] [facility] [id number] [place] [address] Nov, [facility] [place] [facility] [id number] [place] [address] Nov, [facility] [place] [facility] [address] [facility] [id number] [place] [address] Oct, [facility] [place] [facility] [id number] [place] [address] Oct, [facility] [place] [facility] [address] [facility] [id number] [place] [address] Oct, [facility] [place] [facility] [address] [id number] [place] [address] Oct, [facility] [place] [facility] [id number] [place] [address] September, [facility] [place] [facility] [id number] [place] [address] September, [facility] [place] [facility] [id number] [place] [address] September, [facility] [place] [facility] [id number] [place] [address] September, [facility] [place] [facility] [id number] [place] [address] September, [facility] [place] [facility] [id number] [place] [address] September, [facility] [place] [facility] [id number] [place] [address] September, [facility] [place] [facility] [id number] [place] [address] September, [facility] [place] [facility] [id number] [place] [address] Aug, [facility] [place] [facility] [id number] [place] [address] Aug, [facility] [place] [facility] [id number] [place] [address] Jul, [facility] [place] [facility] [address] [facility] [id number] [place] [address] Jun, [facility] [place] [facility] [id number] [place] [address] May, [facility] [place] [facility] [address] [id number] [place] [address] May, [facility] [id number] [place] [address] May, [facility] [address] [facility] [id number] [place] [address] 14 May, 2012 [facility] [address] [id number] [place] [address] Apr, [facility] [address] [facility] [id number] [place] [address] Apr, [facility] [address] [facility] [id number] [place] [address] Apr, [facility] [address] [facility] [id number] [place] [address] Apr, [facility] [address] [facility] [id number] [place] [address] Apr, [facility] [address] [id number] [place] [address] Apr, [facility] [address] [facility] [id number] [place] [address] Apr, [facility] [address] [id number] [place] [address] Apr, [facility] [address] [facility] [id number] [place] [address] 14 Apr, 2012 [facility] [address] [id number] [place] [address] 30 Mar, 2012 [facility] [address] [id number] [place] [address] 30 Mar, 2012 [facility] [address] [facility] [id number] [place] [address] Mar, [facility] [address] [facility] [id number] [place] [address] 27 Mar, 2012 [facility] [address] [id number] [place] [address] 16 Mar, 2012 [facility] [address] [id number] [place] [address] 16 Mar, 2012 [facility] [address] [id number] [place] [address] 16 Mar, 2012 [facility] [address] [id number] [place] [address] 16 Mar, 2012 [facility] [address] [id number] [place] [address] 16 Mar, 2012 [facility] [address] [id number] [place] [address] 16 Mar, 2012 [facility] [address] [id number] [place] [address] 14 Mar, 2012 [facility] [address] [id number] [place] [address] 14 Mar, 2012 [facility] [address] [id number] [place] [address] Mar, [facility] [address] [facility] [id number] [place] [address] Mar, [facility] [address] [facility] [id number] [place] [address] Mar, [facility] [address] [facility] [id number] [place] [address] Mar, [facility] [address] [facility] [id number] [place] [address] Mar, [facility] [address] [id number] [place] [address] Mar, [facility] [address] [id number] [place] [address] Mar, [facility] [address] [facility] [id number] [place] [address] Feb, [facility] [address] [facility] [id number] [place] [address] Feb, [facility] [address] [facility] [id number] [place] [address] Feb, [facility] [address] [facility] [id number] [place] [address] Feb, [facility] [address] [place] [id number] [place] [address] Jan, [facility] [address] [facility] [id number] [place] [address] Jan, [facility] [address] [id number] [place] [address] Dec, [facility] [address] [facility] [id number] [place] [address] Dec, [facility] [address] [id number] [place] [address] Dec, [facility] [address] [facility] [id number] [place] [address] Nov, [facility] [address] [facility] [id number] [place] [address] Nov, [facility] [address] [id number] [place] [address] Oct, [facility] [address] [id number] [place] [address] Oct, [facility] [address] [facility] [id number] [place] [address] September, [facility] [address] [id number] [place] [address] September, [facility] [address] [facility] [id number] [place] [address] September, [facility] [address] [facility] [id number] [place] [address] September, [facility] [address] [id number] [place] [address] Aug, [facility] [address] [id number] [place] [address] Jul, [facility] [address] [id number] [place] [address] Jul, [facility] [address] [facility] [id number] [place] [address] Jun, [facility] [id number] [place] [address] Jun, [facility] [address] [id number] [place] [address] Jun, [facility] [address] [id number] [place] [address] May, [facility] [address] [id number] [place] [address] May, [facility] [address] [id number] [place] [address] May, [facility] [address] [id number] [place] [address] May, [facility] [address] [id number] [place] [address] Apr, [facility] [address] [id number] [place] [address] Apr, [facility] [address] [id number] [place] [address] Apr, [facility] [address] [id number] [place] [address] Mar, [facility] [address] [id number] [place] [address] Mar, [facility] [address] [id number] [place] [address] Mar, [facility] [address] [id number] [place] [address] Mar, [facility] [address] [id number] [place] [address] Mar, [facility] [address] [id number] [place] [address] Feb, [facility] [address] [id number] [place] [address] Feb, [facility] [address] [id number] [place] [address] 17 Feb, 2011 [facility] [address] [id number] [place] [address] 12 Feb, 2011 [facility] [address] [id number] [place] [address] 12 Feb, 2011 [facility] [address] [id number] [place] [address] 12 Feb, 2011 [facility] [address] [id number] [place] [address] 11 Feb, 2011 [facility] [address] [id number] [place] [address] 28 Apr, 2010 [facility] [address] [id number] [place] [address] 23 Apr, 2010 [facility] [address] [id number] [place] [address] 15 Apr, 2010 [facility] [address] [id number] [place] [address] 15 Apr, 2010 [facility] [address] [id number] [place] [address] Apr, [facility] [address] [id number] [place] [address] 02 Apr, 2010 [facility] [address] [id number] [place] [address] 18 Mar, 2010 [facility] [address] [id number] [place] [address] 18 Mar, 2010 [facility] [address] [id number] [place] [address] 17 Mar, 2010 [facility] [address] [id number] [place] [address] 16 Mar, 2010 [facility] [address] [facility] [id number] [place] [address] 10 Mar, 2010 [facility] [address] [facility] [id number] [place] [address] 10 Mar, 2010 [facility] [address] [facility] [id number] [place] [address] Mar, [facility] [address] [facility] [id number] [place] [address] Mar, [facility] [address] [facility] [id number] [place] [address] Feb, [facility] [address] [facility] [id number] [place] [address] Feb, [facility] [address] [facility] [id number] [place] [address] Dec, [facility] [address] [id number] [place] [address] Jun, [facility] [address] [facility] [id number] [place] [address] Jun, [facility] [address] [id number] [place] [address] May, [facility] [address] [id number] [place] [address] 26 Feb, 2009 [facility] [address] [id number] [place] [address] 19 Feb, 2009 [facility] [address] [id number] [place] [address] 19 Feb, 2009 [facility] [address] [id number] [place] [address] 15 Feb, 2009 [facility] [address] [id number] [place] [address] 15 Feb, 2009 [facility] [address] [id number] [place] [address] 13 Feb, 2009 [facility] [address] [id number] [place] [address] 13 Feb, 2009 [facility] [address] [id number] [place] [address] 17 Jul, 2008 [facility] [address] [id number] [place] [address] Jun, IMMUNIZATIONS No Known Immunizations SOCIAL HISTORY [...] History Rt hand post op infection-[facility] 7 Hospitalization History cellulitus Right elbow-[facility] 12/09/16
--- OUTSIDE RECORDS SUMMARY | 2019-07-25 06:40 | XMS REPORT ---
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 2013 [facility] [place] [facility] [address] [id number] [place] [address] 18 Jan, 2013 [facility] [place] [facility] [address] [id number] [place] [address] 18 Jan, 2013 [facility] [place] [facility] [address] [id number] [place] [address] Jan, [facility] [place] [facility] [address] [id number] [place] [address] Jan, 2013 [facility] [place] [facility] [address] [facility] [id number] [place] [id number] Jan, 2013 [facility] [place] [facility] [address] [id number] [place] [address] 09 Jan, 2013 [facility] [place] [facility] [address] [id number] [place] [address] Jan, 2013 [facility] [place] [facility] [address] [id number] [place] [address] Jan, 2013 [facility] [place] [facility] [address] [id number] [place] [address] Dec, [facility] [place] [facility] [address] [id number] [place] [address] Dec, [facility] [place] [facility] [address] [id number] [facility], [place] [address] Dec, [facility] [place] [facility] [address] [facility] [id number] [place] [address] Dec, [facility] [place] [facility] [address] [id number] [facility], [place] [address] Dec, [facility] [place] [facility] [address] [facility] [id number] [place] [address] Dec, [facility] [place] [facility] [address] [id number] [place] [address] Dec, [facility] [place] [facility] [address] [id number] [place] [address] Dec, [facility] [place] [facility] [address] [id number] [place] [address] Dec, [facility] [place] [facility] [address] [id number] [place] [address] Nov, [facility] [place] [facility] [address] [id number] [place] [address] Nov, [facility] [place] [facility] [address] [id number] [place] [address] Nov, [facility] [place] [facility] [address] [id number] [place] [address] Nov, [facility] [place] [facility] [address] [id number] [place] [address] Nov, [facility] [place] [facility] [address] [id number] [place] [address] Nov, [facility] [place] [facility] [address] [id number] [place] [address] Nov, [facility] [place] [facility] [address] [id number] [place] [address] Nov, [facility] [place] [facility] [address] [id number] [place] [address] Nov, [facility] [place] [facility] [address] [facility] [id number] [place] [address] Nov, 2013 [facility] [place] [facility] [address] [facility] [id number] [place] [address] Nov, 2013 [facility] [place] [facility] [address] [facility] [id number] [place] [address] Nov, 2013 [facility] [place] [facility] [address] [id number] [place] [address] Nov, 2013 [facility] [place] [facility] [address] [facility] [id number] [place] [address] Nov, [facility] [place] [facility] [address] [id number] [place] [address] Nov, [facility] [place] [facility] [address] [id number] [place] [address] Oct, [facility] [place] [facility] [address] [id number] [place] [address] Oct, [facility] [place] [facility] [address] [id number] [place] [address] Oct, [facility] [place] [facility] [address] [id number] [place] [address] Oct, [facility] [place] [facility] [address] [id number] [place] [address] Oct, [facility] [place] [facility] [address] [id number] [place] [address] Oct, [facility] [place] [facility] [address] [id number] [place] [address] Oct, [facility] [place] [facility] [address] [id number] [place] [address] Oct, [facility] [place] [facility] [address] [id number] [place] [address] Oct, [facility] [place] [facility] [address] [id number] [place] [address] Oct, [facility] [place] [facility] [address] [id number] [place] [address] Oct, [facility] [place] [facility] [address] [id number] [place] [address] Oct, [facility] [place] [facility] [address] [facility] [id number] [facility], [place] [address] Oct, [facility] [place] [facility] [address] [facility] [id number] [place] [address] Oct, [facility] [place] [facility] [address] [id number] [place] [address] September, [facility] [place] [facility] [address] [facility] [id number] [facility], [place] [address] September, [facility] [place] [facility] [address] [id number] [place] [address] September, [facility] [place] [facility] [address] [id number] [place] [address] September, [facility] [place] [facility] [address] [id number] [place] [address] September, [facility] [place] [facility] [address] [facility] [id number] [place] [address] September, [facility] [place] [facility] [address] [id number] [place] [address] September, [facility] [place] [facility] [address] [id number] [place] [address] September, [facility] [place] [facility] [address] [id number] [place] [address] September, [facility] [place] [facility] [address] [facility] [id number] [place] [address] September, [facility] [place] [facility] [address] [id number] [place] [address] September, [facility] [place] [facility] [address] [facility] [id number] [place] [address] September, [facility] [place] [facility] [address] [id number] [place] [address] September, [facility] [place] [facility] [address] [facility] [id number] [place] [address] Aug, [facility] [place] [facility] [address] [id number] [facility], [place] [address] Aug, [facility] [place] [facility] [address] [facility] [id number] [place] [address] Aug, [facility] [place] [facility] [address] [id number] [place] [address] Aug, [facility] [place] [facility] [address] [id number] [place] [address] Aug, [facility] [place] [facility] [address] [facility] [id number] [place] [address] Aug, [facility] [place] [facility] [address] [id number] [place] [address] Aug, [facility] [place] [facility] [address] [id number] [place] [address] Aug, [facility] [place] [facility] [address] [id number] [place] [address] Aug, [facility] [place] [facility] [address] [id number] [place] [address] Aug, [facility] [place] [facility] [address] [id number] [place] [address] Jul, [facility] [place] [facility] [address] [id number] [place] [address] Jul, [facility] [place] [facility] [address] [id number] [place] [address] Jul, [facility] [place] [facility] [address] [facility] [id number] [place] [address] Jul, [facility] [place] [facility] [address] [id number] [place] [address] Jul, [facility] [place] [facility] [address] [id number] [place] [address] Jul, [facility] [place] [facility] [address] [id number] [place] [address] Jul, [facility] [place] [facility] [address] [id number] [place] [address] Jul, [facility] [place] [facility] [address] [id number] [place] [address] Jun, [facility] [place] [facility] [address] [id number] [place] [address] Jun, [facility] [place] [facility] [address] [id number] [place] [address] Jun, [facility] [place] [facility] [address] [id number] [place] [address] Jun, [facility] [place] [facility] [address] [id number] [place] [address] Jun, [facility] [place] [facility] [address] [id number] [place] [address] Jun, [facility] [place] [facility] [address] [id number] [place] [address] Jun, [facility] [address] [id number] [place] [address] Jun, [facility] [address] [id number] [place] [address] Jun, [facility] [address] [id number] [place] [address] Jun, [facility] [address] [id number] [place] [address] Jun, [facility] [address] [id number] [place] [address] Jun, [facility] [address] [id number] [place] [address] Jun, [facility] [address] [id number] [place] [address] Jun, [facility] [address] [id number] [place] [address] May, [facility] [address] [facility] [id number] [place] [address] May, [facility] [address] [id number] [place] [address] May, [facility] [address] [id number] [place] [address] May, [facility] [address] [id number] [place] [address] May, [facility] [address] [id number] [place] [address] May, [facility] [address] [id number] [place] [address] May, [facility] [address] [id number] [place] [address] May, [facility] [address] [id number] [place] [address] May, [facility] [address] [id number] [place] [address] May, [facility] [address] [id number] [place] [address] May, [facility] [address] [id number] [place] [address] May, [facility] [address] [id number] [place] [address] May, [facility] [address] [id number] [place] [address] May, [facility] [address] [id number] [place] [address] May, [facility] [address] [id number] [place] [address] May, [facility] [address] [id number] [place] [address] May, [facility] [address] [id number] [place] [address] May, [facility] [address] [id number] [place] [address] May, [facility] [address] [id number] [place] [address] May, [facility] [address] [id number] [place] [address] Apr, [facility] [address] [id number] [place] [address] Apr, [facility] [address] [id number] [place] [address] Apr, [facility] [address] [id number] [place] [address] Apr, [facility] [address] [id number] [place] [address] Apr, [facility] [address] [id number] [place] [address] Apr, [facility] [address] [id number] [place] [address] Apr, [facility] [address] [id number] [place] [address] Apr, [facility] [address] [id number] [place] [address] Apr, [facility] [address] [id number] [place] [address] Apr, [facility] [address] [id number] [place] [address] Apr, [facility] [address] [id number] [place] [address] Apr, [facility] [address] [id number] [place] [address] Apr, [facility] [address] [id number] [place] [address] Apr, [facility] [address] [id number] [place] [address] 05 Apr, 2013 [facility] [address] [id number] [place] [address] 05 Apr, 2013 [facility] [address] [id number] [place] [address] Apr, [facility] [address] [id number] [place] [address] Apr, [facility] [address] [id number] [place] [address] Mar, [facility] [address] [id number] [place] [address] Mar, [facility] [address] [id number] [place] [address] Mar, [facility] [address] [id number] [place] [address] Mar, [facility] [address] [id number] [place] [address] Mar, [facility] [address] [id number] [place] [address] Mar, [facility] [id number] [place] [address] Mar, [facility] [address] [id number] [place] [address] Mar, [facility] [address] [id number] [place] [address] Mar, [facility] [address] [id number] [place] [address] Mar, [facility] [address] [id number] [place] [address] Mar, [facility] [address] [id number] [place] [address] Feb, [facility] [address] [id number] [place] [address] Feb, [facility] [address] [id number] [facility], [place] [address] Feb, [facility] [address] [id number] [facility], [place] [address] Feb, [facility] [address] [facility] [id number] [place] [address] Feb, [facility] [address] [facility] [id number] [place] [address] Dec, [facility] [address] [facility] [id number] [facility], [place] [address] Dec, [facility] [address] [facility] [id number] [facility], [place] [address] Dec, [facility] [address] [id number] [place] [address] Dec, [facility] [address] [id number] [place] [address] Nov, [facility] [address] [id number] [place] [address] Nov, [facility] [address] [facility] [id number] [place] [address] Nov, [facility] [address] [id number] [place] [address] Nov, [facility] [address] [id number] [place] [address] Nov, [facility] [address] [id number] [place] [address] Nov, [facility] [address] [facility] [id number] [place] [address] Oct, [facility] [address] [id number] [place] [address] Oct, [facility] [address] [id number] [place] [address] Oct, [facility] [address] [id number] [place] [address] Oct, [facility] [address] [id number] [place] [address] September, [facility] [address] [id number] [place] [address] September, [facility] [address] [id number] [place] [address] September, [facility] [address] [id number] [place] [address] September, [facility] [address] [id number] [place] [address] September, [facility] [address] [id number] [place] [address] September, [facility] [address] [id number] [place] [address] September, [facility] [address] [id number] [place] [address] September, [facility] [address] [id number] [place] [address] Aug, [facility] [address] [id number] [place] [address] Aug, [facility] [address] [id number] [place] [address] Jul, [facility] [address] [id number] [place] [address] Jun, [facility] [address] [id number] [place] [address] May, [facility] [address] [id number] [place] [address] May, [facility] [address] [id number] [place] [address] May, [facility] [address] [id number] [place] [address] May, [facility] [address] [id number] [place] [address] Apr, [facility] [address] [facility] [id number] [facility], [place] [address] Apr, [facility] [address] [facility] [id number] [place] [address] Apr, [facility] [address] [id number] [place] [address] Apr, [facility] [address] [id number] [place] [address] Apr, [facility] [address] [facility] [id number] [facility], [place] [address] Apr, [facility] [address] [id number] [place] [address] Apr, [facility] [address] [id number] [place] [address] Apr, [facility] [address] [id number] [place] [address] 14 Apr, 2012 [facility] [address] [id number] [place] [address] 30 Mar, 2012 [facility] [address] [id number] [place] [address] 30 Mar, 2012 [facility] [address] [id number] [place] [address] 27 Mar, 2012 [facility] [address] [id number] [place] [address] 27 Mar, 2012 [facility] [address] [id number] [place] [address] 16 Mar, 2012 [facility] [address] [id number] [place] [address] 16 Mar, 2012 [facility] [address] [id number] [place] [address] 16 Mar, 2012 [facility] [address] [id number] [place] [address] 16 Mar, 2012 [facility] [address] [id number] [place] [address] 16 Mar, 2012 [facility] [address] [id number] [place] [address] 16 Mar, 2012 [facility] [address] [id number] [place] [address] 14 Mar, 2012 [facility] [address] [id number] [place] [address] 14 Mar, 2012 [facility] [address] [id number] [place] [address] 13 Mar, 2012 [facility] [address] [id number] [place] [address] 13 Mar, 2012 [facility] [address] [id number] [place] [address] Mar, [facility] [address] [id number] [place] [address] Mar, [facility] [address] [id number] [place] [address] Mar, [facility] [address] [id number] [place] [address] Mar, [facility] [address] [id number] [place] [address] Mar, [facility] [address] [id number] [place] [address] Feb, [facility] [address] [id number] [place] [address] Feb, [facility] [address] [id number] [place] [address] Feb, [facility] [id number] [place] [address] Feb, [facility] [address] [id number] [place] [address] Jan, [facility] [address] [id number] [place] [address] Jan, [facility] [address] [id number] [place] [address] Dec, [facility] [address] [id number] [place] [address] Dec, [facility] [address] [id number] [place] [address] Dec, [facility] [address] [id number] [place] [address] Nov, [facility] [address] [id number] [place] [address] Nov, [facility] [address] [id number] [place] [address] Oct, [facility] [address] [id number] [place] [address] Oct, [facility] [id number] [place] [address] September, [facility] [address] [id number] [place] [address] September, [facility] [id number] [place] [address] September, [facility] [address] [id number] [place] [address] September, [facility] [address] [id number] [place] [address] Aug, [facility] [address] [id number] [place] [address] Jul, [facility] [address] [id number] [place] [address] Jul, [facility] [address] [id number] [place] [address] Jun, [facility] [address] [id number] [place] [address] Jun, [facility] [address] [id number] [place] [address] Jun, [facility] [address] [id number] [place] [address] May, [facility] [address] [id number] [place] [address] May, [facility] [address] [id number] [place] [address] May, [facility] [address] [id number] [place] [address] May, [facility] [address] [id number] [place] [address] Apr, [facility] [address] [id number] [place] [address] Apr, [facility] [address] [id number] [place] [address] Apr, [facility] [address] [id number] [place] [address] Mar, [facility] [address] [id number] [place] [address] Mar, [facility] [address] [id number] [place] [address] Mar, [facility] [address] [id number] [place] [address] Mar, [facility] [address] [id number] [place] [address] Mar, [facility] [address] [id number] [place] [address] Feb, [facility] [address] [id number] [place] [address] Feb, [facility] [address] [id number] [place] [address] Feb, [facility] [address] [id number] [place] [address] Feb, [facility] [address] [id number] [place] [address] 12 Feb, 2011 [facility] [address] [id number] [place] [address] 12 Feb, 2011 [facility] [address] [id number] [place] [address] 11 Feb, 2011 [facility] [address] [id number] [place] [address] 28 Apr, 2010 [facility] [address] [id number] [place] [address] 23 Apr, 2010 [facility] [address] [id number] [place] [address] 15 Apr, 2010 [facility] [address] [id number] [place] [address] 15 Apr, 2010 [facility] [address] [id number] [place] [address] Apr, [facility] [address] [id number] [place] [address] Apr, [facility] [address] [id number] [place] [address] 18 Mar, 2010 [facility] [address] [id number] [place] [address] 18 Mar, 2010 [facility] [address] [id number] [place] [address] 17 Mar, 2010 [facility] [address] [id number] [place] [address] 16 Mar, 2010 [facility] [address] [id number] [place] [address] 10 Mar, 2010 [facility] [address] [id number] [place] [address] 10 Mar, 2010 [facility] [address] [id number] [place] [address] 04 Mar, 2010 [facility] [address] [id number] [place] [address] Mar, [facility] [address] [id number] [place] [address] Feb, [facility] [id number] [place] [address] Feb, [facility] [address] [id number] [place] [address] Dec, [facility] [id number] [place] [address] Jun, [facility] [address] [id number] [place] [address] Jun, [facility] [id number] [place] [address] May, [facility] [id number] [place] [address] Feb, [facility] [id number] [place] [address] Feb, [facility] [address] [id number] [place] [address] Feb, [facility] [id number] [place] [address] Feb, [facility] [id number] [place] [address] Feb, [facility] [id number] [place] [address] Feb, [facility] [id number] [place] [address] Feb, [facility] [id number] [place] [address] Jul, [facility] [id number] [place] [address] Jun, IMMUNIZATIONS No Known Immunizations SOCIAL HISTORY Never Assessed REASON FOR VISIT PLAN OF CARE VITAL SIGNS Height 66 in 2013-09-25 Weight 278.31 lbs 2013-09-25 Temperature 98.2 degrees Fahrenheit 2013-09-25 Heart Rate 82 bpm 2013-09-25 Respiratory Rate 22 2013-09-25 Blood pressure systolic 139 mmHg 2013-09-25 Blood pressure diastolic 86 mmHg 2013-09-25 MEDICATIONS Unknown Medications RESULTS No Results PROCEDURES [...] 08/2014 Hospitalization History Rt hand post op infection-[facility] 7 Hospitalization History cellulitus Right elbow-[facility] 12/09/16
--- OUTSIDE RECORDS SUMMARY | 2019-07-25 07:04 | XMS REPORT | Continuity of Care Document ---
Author Organization Unknown Address Unknown Phone Unavailable Allergies Active Description Code Type Severity Reaction Onset Reported/Identified Relationship to Patient Clinical Status Yes ANTI-EMETICS ANTI-EMETICS Mild N/A 03/26/2008 Yes Compazine Drug Allergy N/A N/A 07/05/2008 Yes morphine Drug Allergy N/A N/A 07/05/2008 Yes mushrooms Food Allergy N/A N/A 07/05/2008 Yes Penicillins Drug Allergy N/A N/A 07/05/2008 Yes Compazine Drug Allergy 07/05/2008 Yes morphine Drug Allergy 07/05/2008 Yes mushrooms Food Allergy 07/05/2008 Yes Penicillins Drug Allergy 07/05/2008 Yes ANTI-NAUSEA MEDICATIONS EXCEPT DRAMAMINE ANTI-NAUSEA MEDICATIONS EXCEPT DRAMAMINE Mild M RENATO HER HAVE A 08/29/2008 Yes NAUSEA MEDS NAUSEA MEDS Mild N/A 12/01/2008 Yes ANTIEMETICS ANTIEMETICS Mild N/A 12/09/2008 Yes Rocephin Drug Allergy N/A N/A 12/12/2008 Yes Rocephin Drug Allergy 12/12/2008 Yes Percocet Drug Allergy N/A N/A 02/27/2009 Yes Percocet Drug Allergy 02/27/2009 Yes tramadol Drug Allergy N/A N/A 01/22/2014 Yes morphine [id number] Drug Allergy Mild RASH 07/01/2017 Yes Penicillins [id number] Drug Aller gy Mild N/A 07/01/2017 Yes oxycodone [id number] Drug Allergy Unknown N/A 07/01/[id number] ug Allergy Mild N/A 07/22/2019 Yes Penicillins [id number] Drug Aller gy Mild Has had Ancef w 07/22/2019 Yes prochlorperazine [id number] Drug Allergy Mild N/A 07/22/2019 Medications There is no data. 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 12/15/2007 YOUNG DO, BEAR K 309.9 Ad Adj D/o Nos 12/15/2007 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 12/15/2007 309.9 Ad A dj D/o Nos 12/15/2007 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 12/15/2007 309.9 Ad A dj D/o Nos 12/15/2007 YOUNG , BEAR K 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 12/15/2007 YOUNG DO, BEAR K 309.9 Ad Adj D/o Nos 12/15/2007 GARCIA INSPECTOR PACKAGER, PAU R 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 12/15/2007 JOSE INSPECTOR PACKAGER, PAU R 309.9 Ad Adj D/o Nos 12/15/2007 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 12/15/2007 309.9 Ad A dj D/o Nos 12/15/2007 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 12/15/2007 309.9 Ad A dj D/o Nos 12/15/2007 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 12/15/2007 309.9 Ad A dj D/o Nos 12/15/2007 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 12/15/2007 309.9 Ad A dj D/o Nos 12/15/2007 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 12/15/2007 309.9 Ad A dj D/o Nos 12/15/2007 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 12/15/2007 309.9 Ad A dj D/o Nos 12/15/2007 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 12/15/2007 309.9 Ad A dj D/o Nos 12/15/2007 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 12/15/2007 309.9 Ad A dj D/o Nos 12/15/2007 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 12/15/2007 309.9 Ad A dj D/o Nos 12/15/2007 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 12/15/2007 309.9 Ad A dj D/o Nos 12/15/2007 NENO WOODRUFF APRN 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 12/15/2007 RANJAN INSPECTOR PACKAGER, NENO S 309.9 Ad Adj D/o Nos 12/15/2007 DOUGLAS LEAL MD 307.4 7 Si Dyssomnia Nos 12/15/2007 DOUGLAS LEAL MD 309.9 Ad Adj D/o Nos 12/15/2007 OMAR ADORNO APRN T 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 12/15/2007 OMAR ADORNO APRN T 30 9.9 Ad Adj D/o Nos 12/15/2007 RANJAN INSPECTOR PACKAGER, NENO S 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 12/15/2007 RANJAN INSPECTOR PACKAGER, NENO S 309.9 Ad Adj D/o Nos 12/15/2007 OMAR ADORNO APRN T 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 12/15/2007 OMAR ADORNO APRN T 30 9.9 Ad Adj D/o Nos 12/15/2007 DOUGLAS LEAL MD 307.4 7 Si Dyssomnia Nos 12/15/2007 DOUGLAS LEAL MD 309.9 Ad Adj D/o Nos 12/15/2007 BENI LYNCH, AREN B 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 12/15/2007 BENI LYNCH, AREN B 30 9.9 Ad Adj D/o Nos 12/15/2007 RANJAN INSPECTOR PACKAGER, NENO S 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 12/15/2007 RANJAN INSPECTOR PACKAGER, NENO S 309.9 Ad Adj D/o Nos 12/15/2007 BRENDA PHD, KAREN Quinn 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 12/15/2007 BRENDA PHD, KAREN Quinn 309.9 Ad Adj D/o Nos 12/15/2007 BRENDA PHD, KAREN Quinn 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 12/15/2007 BRENDA PHD, KAREN Quinn 309.9 Ad Adj D/o Nos 12/15/2007 RANJAN INSPECTOR PACKAGER, NENO S 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 12/15/2007 RANJAN INSPECTOR PACKAGER, NENO S 309.9 Ad Adj D/o Nos 12/15/2007 RANJAN INSPECTOR PACKAGER, NENO S 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 12/15/2007 RANJAN INSPECTOR PACKAGER, NENO S 309.9 Ad Adj D/o Nos 12/15/2007 DALY CASHERO INSPECTOR PACKAGER, ROBERTO N 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 12/15/2007 MALIKA NUNNERO INSPECTOR PACKAGER, ROBERTO N 309.9 Ad Adj D/o Nos 12/15/2007 RANJAN INSPECTOR PACKAGER, NENO S 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 12/15/2007 RANJAN INSPECTOR PACKAGER, NENO S 309.9 Ad Adj D/o Nos 12/15/2007 BRENDA PABLO, KAREN Quinn 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 12/15/2007 BRENDA PABLO, KAREN Quinn 309.9 Ad Adj D/o Nos 12/15/2007 MARIAN INSPECTOR PACKAGER, PRIETO R 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 12/15/2007 MARIAN INSPECTOR PACKAGER, PRIETO R 309.9 Ad Adj D/o Nos 12/15/2007 DOUGLAS LEAL MD 307.4 7 Si Dyssomnia Nos 12/15/2007 DOUGLAS LEAL MD 309.9 Ad Adj D/o Nos 12/15/2007 BRENDA PABLO, KAREN Quinn 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 12/15/2007 BRENDA PABLO, KAREN Quinn 309.9 Ad Adj D/o Nos 12/15/2007 DIONNA INSPECTOR PACKAGER, LAURIE 307 .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 12/15/2007 DIONNA INSPECTOR PACKAGER, LAURIE 309 .9 Ad Adj D/o Nos 12/15/2007 RANJAN INSPECTOR PACKAGER, NENO S 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 12/15/2007 RANJAN INSPECTOR PACKAGER, NENO S 309.9 Ad Adj D/o Nos 12/15/2007 DIONNA INSPECTOR PACKAGER, LAURIE 307 .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 12/15/2007 DIONNA INSPECTOR PACKAGER, LAURIE 309 .9 Ad Adj D/o Nos 12/15/2007 DIONNA INSPECTOR PACKAGER, LAURIE 307 .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 12/15/2007 DIONNA INSPECTOR PACKAGER, LAURIE 309 .9 Ad Adj D/o Nos 12/15/2007 DIONNA INSPECTOR PACKAGER, LAURIE 307 .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 12/15/2007 DIONNA INSPECTOR PACKAGER, LAURIE 309 .9 Ad Adj D/o Nos 12/15/2007 OMAR ADORNO APRN 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 12/15/2007 OMAR ADORNO APRN 30 9.9 Ad Adj D/o Nos 12/15/2007 DIONNA INSPECTOR PACKAGER, LAURIE 307 .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 12/15/2007 DIONNA INSPECTOR PACKAGER, LAURIE 309 .9 Ad Adj D/o Nos 12/15/2007 WHITE DDS, KAITLIN J 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 12/15/2007 WHITE DDS, KAITLIN J 30 9.9 Ad Adj D/o Nos 12/15/2007 ESPINOZA DDS, JULI 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 12/15/2007 ESPINOZA DDS, JULI 30 9.9 Ad Adj D/o Nos 12/15/2007 ESPINOZA DDS, JULI 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 12/15/2007 ESPINOZA DDS, JULI 30 9.9 Ad Adj D/o Nos 12/15/2007 DIONNA INSPECTOR PACKAGER, LAURIE 307 .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 12/15/2007 DIONNA INSPECTOR PACKAGER, LAURIE 309 .9 Ad Adj D/o Nos 12/15/2007 BEAR YOUNG DO K 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 12/15/2007 BEAR YOUNG DO K 309.9 Ad Adj D/o Nos 12/15/2007 MARIAN INSPECTOR PACKAGER, PRIETO R 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 12/15/2007 MARIAN INSPECTOR PACKAGER, PRIETO R 309.9 Ad Adj D/o Nos 12/15/2007 DIONNA INSPECTOR PACKAGER, LAURIE 307 .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 12/15/2007 DIONNA INSPECTOR PACKAGER, LAURIE 309 .9 Ad Adj D/o Nos 12/15/2007 MARIAN INSPECTOR PACKAGER, PRIETO R 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 12/15/2007 MARIAN INSPECTOR PACKAGER, PRIETO R 309.9 Ad Adj D/o Nos 12/15/2007 MARIAN INSPECTOR PACKAGER, PRIETO R 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 12/15/2007 MARIAN INSPECTOR PACKAGER, PRIETO R 309.9 Ad Adj D/o Nos 12/15/2007 DOUGLAS LEAL MD 307.4 7 Si Dyssomnia Nos 12/15/2007 DOUGLAS LEAL MD 309.9 Ad Adj D/o Nos 12/15/2007 BEAR YOUNG DO K 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 12/15/2007 YOUNG DO, BEAR K 309.9 Ad Adj D/o Nos 01/02/2008 BEAR YOUNG DO K 682.9 Cellulitis 01/02/2008 682.9 Cell ulitis 01/02/2008 682.9 Cell ulitis 01/02/2008 BEAR YOUNG DO K 682.9 Cellulitis 01/02/2008 PAU GARCIA APRN 682.9 Cellulitis 01/02/2008 682.9 Cell ulitis 01/02/2008 682.9 Cell ulitis 01/02/2008 682.9 Cell ulitis 01/02/2008 682.9 Cell ulitis 01/02/2008 682.9 Cell ulitis 01/02/2008 682.9 Cell ulitis 01/02/2008 682.9 Cell ulitis 01/02/2008 682.9 Cell ulitis 01/02/2008 682.9 Cell ulitis 01/02/2008 682.9 Cell ulitis 01/02/2008 YUKI WOODRUFF APRNA S 682.9 Cellulitis 01/02/2008 DOUGLAS LEAL MD 682.9 Cellulitis 01/02/2008 OMAR ADORNO APRN 68 2.9 Cellulitis 01/02/2008 YUKI WOODRUFF APRNA S 682.9 Cellulitis 01/02/2008 OMAR ADORNO APRN 68 2.9 Cellulitis 01/02/2008 DOUGLAS LEAL MD 682.9 Cellulitis 01/02/2008 BENI INSULATION NOZZLEMAN, AREN B 68 2.9 Cellulitis 01/02/2008 YUKI WOODRUFF APRNA S 682.9 Cellulitis 01/02/2008 BRENDA PHD, KAREN Quinn 682.9 Cellulitis 01/02/2008 BRENDA PHD, KAREN Quinn 682.9 Cellulitis 01/02/2008 YUKI WOODRUFF APRNA S 682.9 Cellulitis 01/02/2008 KATIE WOODRUFF APRNNDA S 682.9 Cellulitis 01/02/2008 ROBERTO YATES APRN 682.9 Cellulitis 01/02/2008 KATIE WOODRUFF APRNNDA S 682.9 Cellulitis 01/02/2008 BRENDA PHD, KAREN Quinn 682.9 Cellulitis 01/02/2008 MARIAN INSPECTOR PACKAGER, PRIETO R 682.9 Cellulitis 01/02/2008 DOUGLAS LEAL MD 682.9 Cellulitis 01/02/2008 BRENDA PHD, KAREN Quinn 682.9 Cellulitis 01/02/2008 DIONNA INSPECTOR PACKAGER, LAURIE 682 .9 Cellulitis 01/02/2008 RANJAN INSPECTOR PACKAGER, NENO S 682.9 Cellulitis 01/02/2008 DIONNA INSPECTOR PACKAGER, LAURIE 682 .9 Cellulitis 01/02/2008 DIONNA INSPECTOR PACKAGER, LAURIE 682 .9 Cellulitis 01/02/2008 DIONNA INSPECTOR PACKAGER, LAURIE 682 .9 Cellulitis 01/02/2008 OMAR ADORNO APRN 68 2.9 Cellulitis 01/02/2008 DIONNA INSPECTOR PACKAGER, LAURIE 682 .9 Cellulitis 01/02/2008 ROSHAN LUCERO, KAITLIN Cortez 68 2.9 Cellulitis 01/02/2008 ESPINOZAJULI JAEGER DDS 68 2.9 Cellulitis 01/02/2008 ESPINOZAJULI CROSS DDS 68 2.9 Cellulitis 01/02/2008 DIONNA INSPECTOR PACKAGER, LAURIE 682 .9 Cellulitis 01/02/2008 BEAR YOUNG DO K 682.9 Cellulitis 01/02/2008 MARIAN INSPECTOR PACKAGER, PRIETO R 682.9 Cellulitis 01/02/2008 DIONNA INSPECTOR PACKAGER, LAURIE 682 .9 Cellulitis 01/02/2008 MARIAN INSPECTOR PACKAGER, PRIETO R 682.9 Cellulitis 01/02/2008 MARIAN INSPECTOR PACKAGER, PRIETO R 682.9 Cellulitis 01/02/2008 DOUGLAS LEAL MD 682.9 Cellulitis 01/02/2008 BEAR YOUNG DO K 682.9 Cellulitis 01/03/2008 BEAR YOUNG DO 300.00 An Anxiety Unspec 01/03/2008 BEAR YOUNG DO 301.83 PD BORDERLINE 01/03/2008 BEAR YOUNG DO 309.0 Ad Adj D/o W Depressed 01/03/2008 300.00 An Anxiety Unspec 01/03/2008 301.83 PD BORDERLINE 01/03/2008 309.0 Ad A dj D/o W Depressed 01/03/2008 300.00 An Anxiety Unspec 01/03/2008 301.83 PD BORDERLINE 01/03/2008 309.0 Ad A dj D/o W Depressed 01/03/2008 HANNAH COFFMAN BEAR K 300.00 An Anxiety Unspec 01/03/2008 BEAR YOUNG DO K 301.83 PD BORDERLINE 01/03/2008 BEAR YOUNG DO K 309.0 Ad Adj D/o W Depressed 01/03/2008 PAU GARCIA APRN R 300.00 An Anxiety Unspec 01/03/2008 PAU GARCIA APRN R 301.83 PD BORDERLINE 01/03/2008 APU GARCIA APRN R 309.0 Ad Adj D/o W Depressed 01/03/2008 300.00 An Anxiety Unspec 01/03/2008 301.83 PD BORDERLINE 01/03/2008 309.0 Ad A dj D/o W Depressed 01/03/2008 300.00 An Anxiety Unspec 01/03/2008 301.83 PD BORDERLINE 01/03/2008 309.0 Ad A dj D/o W Depressed 01/03/2008 300.00 An Anxiety Unspec 01/03/2008 301.83 PD BORDERLINE 01/03/2008 309.0 Ad A dj D/o W Depressed 01/03/2008 300.00 An Anxiety Unspec 01/03/2008 301.83 PD BORDERLINE 01/03/2008 309.0 Ad A dj D/o W Depressed 01/03/2008 300.00 An Anxiety Unspec 01/03/2008 301.83 PD BORDERLINE 01/03/2008 309.0 Ad A dj D/o W Depressed 01/03/2008 300.00 An Anxiety Unspec 01/03/2008 301.83 PD BORDERLINE 01/03/2008 309.0 Ad A dj D/o W Depressed 01/03/2008 300.00 An Anxiety Unspec 01/03/2008 301.83 PD BORDERLINE 01/03/2008 309.0 Ad A dj D/o W Depressed 01/03/2008 300.00 An Anxiety Unspec 01/03/2008 301.83 PD BORDERLINE 01/03/2008 309.0 Ad A dj D/o W Depressed 01/03/2008 300.00 An Anxiety Unspec 01/03/2008 301.83 PD BORDERLINE 01/03/2008 309.0 Ad A dj D/o W Depressed 01/03/2008 300.00 An Anxiety Unspec 01/03/2008 301.83 PD BORDERLINE 01/03/2008 309.0 Ad A dj D/o W Depressed 01/03/2008 RANJAN INSPECTOR PACKAGER, NENO S 300.00 An Anxiety Unspec 01/03/2008 KATIE WOODRUFF APRNNDA S 301.83 PD BORDERLINE 01/03/2008 YUKI WOODRUFF APRNA S 309.0 Ad Adj D/o W Depressed 01/03/2008 DOUGLAS LEAL MD 300.0 0 An Anxiety Unspec 01/03/2008 DOUGLAS LEAL MD 301.8 3 PD BORDERLINE 01/03/2008 DOUGLAS LEAL MD 309.0 Ad Adj D/o W Depressed 01/03/2008 OMAR ADORNO APRN T 300.00 An Anxiety Unspec 01/03/2008 OMAR ADORNO APRN 301.83 PD BORDERLINE 01/03/2008 OMAR ADORNO APRN 30 9.0 Ad Adj D/o W Depressed 01/03/2008 NENO WOODRUFF APRN S 300.00 An Anxiety Unspec 01/03/2008 NENO WOODRUFF APRN S 301.83 PD BORDERLINE 01/03/2008 NENO WOODRUFF APRN S 309.0 Ad Adj D/o W Depressed 01/03/2008 OMAR ADORNO APRN 300.00 An Anxiety Unspec 01/03/2008 OMAR ADORNO APRN T 301.83 PD BORDERLINE 01/03/2008 OMAR ADORNO APRN T 30 9.0 Ad Adj D/o W Depressed 01/03/2008 DOUGLAS LEAL MD 300.0 0 An Anxiety Unspec 01/03/2008 DOUGLAS LEAL MD 301.8 3 PD BORDERLINE 01/03/2008 DOUGLAS LEAL MD 309.0 Ad Adj D/o W Depressed 01/03/2008 AREN BAZAN LCPC 300.00 An Anxiety Unspec 01/03/2008 AREN BAZAN LCPC 301.83 PD BORDERLINE 01/03/2008 AREN BAZAN LCPC 30 9.0 Ad Adj D/o W Depressed 01/03/2008 YUKI WOODRUFF APRNA S 300.00 An Anxiety Unspec 01/03/2008 YUKI WOODRUFF APRNA S 301.83 PD BORDERLINE 01/03/2008 NENO WOODRUFF APRN S 309.0 Ad Adj D/o W Depressed 01/03/2008 BRENDA PABLO, KAREN Quinn 300.00 An Anxiety Unspec 01/03/2008 KAREN GUTIERREZ PHD 301.83 PD BORDERLINE 01/03/2008 KAREN GUTIERREZ PHD 309.0 Ad Adj D/o W Depressed 01/03/2008 BRENDA PABLO, KAREN Quinn 300.00 An Anxiety Unspec 01/03/2008 BRENDA PABLO, KAREN Quinn 301.83 PD BORDERLINE 01/03/2008 BRENDA PABLO, KAREN Quinn 309.0 Ad Adj D/o W Depressed 01/03/2008 RANJAN FRAGOSO, NENO S 300.00 An Anxiety Unspec 01/03/2008 KATIE WOODRUFF APRNNDA S 301.83 PD BORDERLINE 01/03/2008 RANJAN FRAGOSO, NENO S 309.0 Ad Adj D/o W Depressed 01/03/2008 RANJAN FRAGOSO, NENO S 300.00 An Anxiety Unspec 01/03/2008 RANJAN FRAGOSO, NENO S 301.83 PD BORDERLINE 01/03/2008 RANJAN FRAGOSO, NENO S 309.0 Ad Adj D/o W Depressed 01/03/2008 ALONDRA YATES APRNCY N 300.00 An Anxiety Unspec 01/03/2008 DALY EDOUARDDIAMOND FRAGOSO, ROBERTO N 301.83 PD BORDERLINE 01/03/2008 DALY EDOUARDDIAMOND INSPECTOR PACKAGER, ROBERTO N 309.0 Ad Adj D/o W Depressed 01/03/2008 RANJAN FRAGOSO, ENNO S 300.00 An Anxiety Unspec 01/03/2008 RANJAN FRAGOSO, NENO S 301.83 PD BORDERLINE 01/03/2008 RANJAN FRAGOSO, NENO S 309.0 Ad Adj D/o W Depressed 01/03/2008 KAREN GUTIERREZ PHD 300.00 An Anxiety Unspec 01/03/2008 BRENDA PABLO, KAREN Quinn 301.83 PD BORDERLINE 01/03/2008 BRENDA PABLO, KAREN Quinn 309.0 Ad Adj D/o W Depressed 01/03/2008 MARIAN FRAGOSO, PRIETO R 300.00 An Anxiety Unspec 01/03/2008 MARIAN FRAGOSO, PRIETO R 301.83 PD BORDERLINE 01/03/2008 MARIAN FRAGOSO, PRIETO R 309.0 Ad Adj D/o W Depressed 01/03/2008 DOUGLAS LEAL MD 300.0 0 An Anxiety Unspec 01/03/2008 DOUGLAS LEAL MD 301.8 3 PD BORDERLINE 01/03/2008 DOUGLAS LEAL MD 309.0 Ad Adj D/o W Depressed 01/03/2008 BRENDA PABLO, KAREN Quinn 300.00 An Anxiety Unspec 01/03/2008 BRENDA PABLO, KAREN Quinn 301.83 PD BORDERLINE 01/03/2008 BRENDA PABLO, KAREN Quinn 309.0 Ad Adj D/o W Depressed 01/03/2008 DIONNA FRAGOSO LAURIE 300 .00 An Anxiety Unspec 01/03/2008 DIONNA FRAGOSO LAURIE 301 .83 PD BORDERLINE 01/03/2008 DIONNA FRAGOSO LAURIE 309 .0 Ad Adj D/o W Depressed 01/03/2008 YUKI WOODRUFF APRNA S 300.00 An Anxiety Unspec 01/03/2008 YUKI WOODRUFF APRNA S 301.83 PD BORDERLINE 01/03/2008 YUKI WOODRUFF APRNA S 309.0 Ad Adj D/o W Depressed 01/03/2008 DIONNA FRAGOSO LAURIE 300 .00 An Anxiety Unspec 01/03/2008 DIONNA FRAGOSO LAURIE 301 .83 PD BORDERLINE 01/03/2008 DIONNA FRAGOSO LAURIE 309 .0 Ad Adj D/o W Depressed 01/03/2008 DIONNA FRAGOSO LAURIE 300 .00 An Anxiety Unspec 01/03/2008 DIONNA FRAGOSO LAURIE 301 .83 PD BORDERLINE 01/03/2008 DIONNA FRAGOSO LAURIE 309 .0 Ad Adj D/o W Depressed 01/03/2008 DIONNA FRAGOSO LAURIE 300 .00 An Anxiety Unspec 01/03/2008 DIONNA FRAGOSO LAURIE 301 .83 PD BORDERLINE 01/03/2008 DIONNA FRAGOSO LAURIE 309 .0 Ad Adj D/o W Depressed 01/03/2008 OMAR ADORNO APRN 300.00 An Anxiety Unspec 01/03/2008 OMAR ADORNO APRN 301.83 PD BORDERLINE 01/03/2008 OMAR ADORNO APRN 30 9.0 Ad Adj D/o W Depressed 01/03/2008 DIONNA FRAGOSO LAURIE 300 .00 An Anxiety Unspec 01/03/2008 DIONNA FRAGOSO LAURIE 301 .83 PD BORDERLINE 01/03/2008 DIONNA FRAGOSO LAURIE 309 .0 Ad Adj D/o W Depressed 01/03/2008 WHITE DDSKAITLIN J 300.00 An Anxiety Unspec 01/03/2008 WHITE DDS, KAITLIN J 301.83 PD BORDERLINE 01/03/2008 WHITE DDS, KAITLIN J 30 9.0 Ad Adj D/o W Depressed 01/03/2008 OLGA DDS, JULI 300.00 An Anxiety Unspec 01/03/2008 ESPINOZA DDS, JULI 301.83 PD BORDERLINE 01/03/2008 ESPINOZA DDS, JULI 30 9.0 Ad Adj D/o W Depressed 01/03/2008 ESPINOZA DDS, JULI 300.00 An Anxiety Unspec 01/03/2008 ESPINOZA DDS, JULI 301.83 PD BORDERLINE 01/03/2008 ESPINOZA DDS, JULI 30 9.0 Ad Adj D/o W Depressed 01/03/2008 LAURIE VILLAREAL APRN 300 .00 An Anxiety Unspec 01/03/2008 LAURIE VILLAREAL APRN 301 .83 PD BORDERLINE 01/03/2008 LAURIE VILLAREAL APRN 309 .0 Ad Adj D/o W Depressed 01/03/2008 BEAR YOUNG DO K 300.00 An Anxiety Unspec 01/03/2008 BEAR YOUNG DO K 301.83 PD BORDERLINE 01/03/2008 BEAR YOUNG DO K 309.0 Ad Adj D/o W Depressed 01/03/2008 MARIAN FRAGOSO, PRIETO R 300.00 An Anxiety Unspec 01/03/2008 MARIAN FRAGOSO PRIETO R 301.83 PD BORDERLINE 01/03/2008 MARIAN FRAGOSO, PRIETO R 309.0 Ad Adj D/o W Depressed 01/03/2008 DIONNA FRAGOSO LAURIE 300 .00 An Anxiety Unspec 01/03/2008 LAURIE VILLAREAL APRN 301 .83 PD BORDERLINE 01/03/2008 DIONNA FRAGOSO LAURIE 309 .0 Ad Adj D/o W Depressed 01/03/2008 MARIAN FRAGOSO, PRIETO R 300.00 An Anxiety Unspec 01/03/2008 MARIAN MURILLON, PRIETO R 301.83 PD BORDERLINE 01/03/2008 MARIAN FRAGOSO, PRIETO R 309.0 Ad Adj D/o W Depressed 01/03/2008 MARIAN FRAGOSO, PRIETO R 300.00 An Anxiety Unspec 01/03/2008 MARIAN FRAGOSO, PRIETO R 301.83 PD BORDERLINE 01/03/2008 MARIAN FRAGOSO PRIETO R 309.0 Ad Adj D/o W Depressed 01/03/2008 DOUGLAS LEAL MD 300.0 0 An Anxiety Unspec 01/03/2008 DOUGLAS LEAL MD 301.8 3 PD BORDERLINE 01/03/2008 DOUGLAS LEAL MD 309.0 Ad Adj D/o W Depressed 01/03/2008 BEAR YOUNG DO K 300.00 An Anxiety Unspec 01/03/2008 BEAR YOUNG DO K 301.83 PD BORDERLINE 01/03/2008 BEAR YOUNG DO K 309.0 Ad Adj D/o W Depressed 02/22/2008 BEAR YOUNG DO K 620.0 Follicular Cyst Of Ovary 02/22/2008 620.0 Foll icular Cyst Of Ovary 02/22/2008 620.0 Foll icular Cyst Of Ovary 02/22/2008 BEAR YOUNG DO K 620.0 Follicular Cyst Of Ovary 02/22/2008 PAU GARCIA APRN 620.0 Follicular Cyst Of Ovary 02/22/2008 620.0 Foll icular Cyst Of Ovary 02/22/2008 620.0 Foll icular Cyst Of Ovary 02/22/2008 620.0 Foll icular Cyst Of Ovary 02/22/2008 620.0 Foll icular Cyst Of Ovary 02/22/2008 620.0 Foll icular Cyst Of Ovary 02/22/2008 620.0 Foll icular Cyst Of Ovary 02/22/2008 620.0 Foll icular Cyst Of Ovary 02/22/2008 620.0 Foll icular Cyst Of Ovary 02/22/2008 620.0 Foll icular Cyst Of Ovary 02/22/2008 620.0 Foll icular Cyst Of Ovary 02/22/2008 NENO WOODRUFF APRN 620.0 Follicular Cyst Of Ovary 02/22/2008 DOUGLAS LEAL MD 620.0 Follicular Cyst Of Ovary 02/22/2008 OMAR ADORNO APRN 62 0.0 Follicular Cyst Of Ovary 02/22/2008 NENO WOODRUFF APRN 620.0 Follicular Cyst Of Ovary 02/22/2008 OMAR ADORNO APRN 62 0.0 Follicular Cyst Of Ovary 02/22/2008 DOUGLAS LEAL MD 620.0 Follicular Cyst Of Ovary 02/22/2008 BENI LYNCH, AREN [place] 62 0.0 Follicular Cyst Of Ovary 02/22/2008 NENO WOODRUFF APRN S 620.0 Follicular Cyst Of Ovary 02/22/2008 BRENDA PABLO, KAREN Quinn 620.0 Follicular Cyst Of Ovary 02/22/2008 BRENDA PHD, KAREN Quinn 620.0 Follicular Cyst Of Ovary 02/22/2008 RANJAN INSPECTOR PACKAGER, NENO S 620.0 Follicular Cyst Of Ovary 02/22/2008 RANJANELOISA MURILLON, NENO S 620.0 Follicular Cyst Of Ovary 02/22/2008 MALIKA GUILLEN INSPECTOR PACKAGER, ROBERTO N 620.0 Follicular Cyst Of Ovary 02/22/2008 RANJAN MURILLON, NENO S 620.0 Follicular Cyst Of Ovary 02/22/2008 BRENDA PHD, KAREN Quinn 620.0 Follicular Cyst Of Ovary 02/22/2008 MARIAN INSPECTOR PACKAGER, PRIETO R 620.0 Follicular Cyst Of Ovary 02/22/2008 DOUGLAS LEAL MD 620.0 Follicular Cyst Of Ovary 02/22/2008 BRENDA PHD, KAREN Quinn 620.0 Follicular Cyst Of Ovary 02/22/2008 DIONNA INSPECTOR PACKAGER, LAURIE 620 .0 Follicular Cyst Of Ovary 02/22/2008 RANJAN FRAGOSO, NENO S 620.0 Follicular Cyst Of Ovary 02/22/2008 DIONNA INSPECTOR PACKAGER, LAURIE 620 .0 Follicular Cyst Of Ovary 02/22/2008 DIONNA INSPECTOR PACKAGER, LAURIE 620 .0 Follicular Cyst Of Ovary 02/22/2008 DIONNA INSPECTOR PACKAGER, LAURIE 620 .0 Follicular Cyst Of Ovary 02/22/2008 OMAR ADORNO APRN 62 0.0 Follicular Cyst Of Ovary 02/22/2008 DIONNA INSPECTOR PACKAGER, LAURIE 620 .0 Follicular Cyst Of Ovary 02/22/2008 ROSHAN GILLESPIES, KAITLIN Cortez 62 0.0 Follicular Cyst Of Ovary 02/22/2008 JULI ESPINOZA DDS 62 0.0 Follicular Cyst Of Ovary 02/22/2008 OLGA GILLESPIESJULI 62 0.0 Follicular Cyst Of Ovary 02/22/2008 DIONNA INSPECTOR PACKAGER, LAURIE 620 .0 Follicular Cyst Of Ovary 02/22/2008 BEAR YOUNG DO 620.0 Follicular Cyst Of Ovary 02/22/2008 MARIAN INSPECTOR PACKAGER, PRIETO R 620.0 Follicular Cyst Of Ovary 02/22/2008 DIONNA INSPECTOR PACKAGER, LAURIE 620 .0 Follicular Cyst Of Ovary 02/22/2008 MARIAN INSPECTOR PACKAGER, PRIETO R 620.0 Follicular Cyst Of Ovary 02/22/2008 MARIAN INSPECTOR PACKAGER, PRIETO R 620.0 Follicular Cyst Of Ovary 02/22/2008 DOUGLAS LEAL MD 620.0 Follicular Cyst Of Ovary 02/22/2008 KENDY YOUNG DOAsia Meredith 620.0 Follicular Cyst Of Ovary 07/05/2008 BEAR YOUNG DO K 462 Acute Pharyngitis 07/05/2008 BEAR YOUNG DO K 466.0 Acute Bronchitis 07/05/2008 462 Acute Pharyngitis 07/05/2008 466.0 Acut e Bronchitis 07/05/2008 462 Acute Pharyngitis 07/05/2008 466.0 Acut e Bronchitis 07/05/2008 BEAR YOUNG DO K 462 Acute Pharyngitis 07/05/2008 HANNAH COFFMAN BEAR K 466.0 Acute Bronchitis 07/05/2008 APU GARCIA APRN R 462 Acute Pharyngitis 07/05/2008 PAU GARCIA APRN 466.0 Acute Bronchitis 07/05/2008 462 Acute Pharyngitis 07/05/2008 466.0 Acut e Bronchitis 07/05/2008 462 Acute Pharyngitis 07/05/2008 466.0 Acut e Bronchitis 07/05/2008 462 Acute Pharyngitis 07/05/2008 466.0 Acut e Bronchitis 07/05/2008 462 Acute Pharyngitis 07/05/2008 466.0 Acut e Bronchitis 07/05/2008 462 Acute Pharyngitis 07/05/2008 466.0 Acut e Bronchitis 07/05/2008 462 Acute Pharyngitis 07/05/2008 466.0 Acut e Bronchitis 07/05/2008 462 Acute Pharyngitis 07/05/2008 466.0 Acut e Bronchitis 07/05/2008 462 Acute Pharyngitis 07/05/2008 466.0 Acut e Bronchitis 07/05/2008 462 Acute Pharyngitis 07/05/2008 466.0 Acut e Bronchitis 07/05/2008 462 Acute Pharyngitis 07/05/2008 466.0 Acut e Bronchitis 07/05/2008 NENO WOODRUFF APRN 462 Acute Pharyngitis 07/05/2008 NENO WOODRUFF APRN 466.0 Acute Bronchitis 07/05/2008 DOUGLAS LEAL MD 462 Acute Pharyngitis 07/05/2008 MEL JOYCE, DOUGLAS 466.0 Acute Bronchitis 07/05/2008 TILA INSPECTOR PACKAGER, OMAR T 46 2 Acute Pharyngitis 07/05/2008 TILA INSPECTOR PACKAGER, OMAR T 46 6.0 Acute Bronchitis 07/05/2008 RANJAN INSPECTOR PACKAGER, NENO S 462 Acute Pharyngitis 07/05/2008 RANJAN INSPECTOR PACKAGER, NENO S 466.0 Acute Bronchitis 07/05/2008 TILA INSPECTOR PACKAGER, OMAR T 46 2 Acute Pharyngitis 07/05/2008 TILA INSPECTOR PACKAGER, OMAR T 46 6.0 Acute Bronchitis 07/05/2008 DOUGLAS LEAL MD 462 Acute Pharyngitis 07/05/2008 DOUGLAS LEAL MD 466.0 Acute Bronchitis 07/05/2008 BENI INSULATION NOZZLEMAN, AREN B 46 2 Acute Pharyngitis 07/05/2008 BENI INSULATION NOZZLEMAN, AREN B 46 6.0 Acute Bronchitis 07/05/2008 RANJAN INSPECTOR PACKAGER, NENO S 462 Acute Pharyngitis 07/05/2008 RANJAN INSPECTOR PACKAGER, NENO S 466.0 Acute Bronchitis 07/05/2008 BRENDA PHD, KAREN Quinn 462 Acute Pharyngitis 07/05/2008 BRENDA PHD, KAREN Quinn 466.0 Acute Bronchitis 07/05/2008 BRENDA PHD, KAREN Quinn 462 Acute Pharyngitis 07/05/2008 BRENDA PHD, KAREN Quinn 466.0 Acute Bronchitis 07/05/2008 RANJAN INSPECTOR PACKAGER, NENO S 462 Acute Pharyngitis 07/05/2008 RANJAN INSPECTOR PACKAGER, NENO S 466.0 Acute Bronchitis 07/05/2008 RANJAN INSPECTOR PACKAGER, NENO S 462 Acute Pharyngitis 07/05/2008 RANJAN INSPECTOR PACKAGER, NENO S 466.0 Acute Bronchitis 07/05/2008 DALY CASHERO INSPECTOR PACKAGER, ROBERTO N 462 Acute Pharyngitis 07/05/2008 DALY CASHERO INSPECTOR PACKAGER, ROBERTO N 466.0 Acute Bronchitis 07/05/2008 RANJAN INSPECTOR PACKAGER, NENO S 462 Acute Pharyngitis 07/05/2008 RANJAN INSPECTOR PACKAGER, NENO S 466.0 Acute Bronchitis 07/05/2008 BRENDA PABLO, KAREN Quinn 462 Acute Pharyngitis 07/05/2008 BRENDA PABLO, KAREN Quinn 466.0 Acute Bronchitis 07/05/2008 MARIAN INSPECTOR PACKAGER, PRIETO R 4 62 Acute Pharyngitis 07/05/2008 MARIAN INSPECTOR PACKAGER, PRIETO R 466.0 Acute Bronchitis 07/05/2008 DOUGLAS LEAL MD 462 Acute Pharyngitis 07/05/2008 DOUGLAS LEAL MD 466.0 Acute Bronchitis 07/05/2008 BRENDA PHD, KAREN Quinn 462 Acute Pharyngitis 07/05/2008 BRENDA PABLO, KAREN Quinn 466.0 Acute Bronchitis 07/05/2008 DIONNA INSPECTOR PACKAGER, LAURIE 462 Acute Pharyngitis 07/05/2008 DIONNA INSPECTOR PACKAGER, LAURIE 466 .0 Acute Bronchitis 07/05/2008 RANJAN INSPECTOR PACKAGER, NENO S 462 Acute Pharyngitis 07/05/2008 RANJAN INSPECTOR PACKAGER, NENO S 466.0 Acute Bronchitis 07/05/2008 DIONNA INSPECTOR PACKAGER, LAURIE 462 Acute Pharyngitis 07/05/2008 DIONNA INSPECTOR PACKAGER, LAURIE 466 .0 Acute Bronchitis 07/05/2008 DIONNA INSPECTOR PACKAGER, LAURIE 462 Acute Pharyngitis 07/05/2008 DIONNA INSPECTOR PACKAGER, LAURIE 466 .0 Acute Bronchitis 07/05/2008 DIONNA INSPECTOR PACKAGER, LAURIE 462 Acute Pharyngitis 07/05/2008 DIONNA INSPECTOR PACKAGER, LAURIE 466 .0 Acute Bronchitis 07/05/2008 OMAR ADORNO APRN 46 2 Acute Pharyngitis 07/05/2008 OMAR ADORNO APRN 46 6.0 Acute Bronchitis 07/05/2008 DIONNA INSPECTOR PACKAGER, LAURIE 462 Acute Pharyngitis 07/05/2008 DIONNA INSPECTOR PACKAGER, LAURIE 466 .0 Acute Bronchitis 07/05/2008 ROSHAN GILLESPIESKAITLIN J 46 2 Acute Pharyngitis 07/05/2008 WHITE DDS, KAITLIN J 46 6.0 Acute Bronchitis 07/05/2008 ESPINOZAJULI CROSS DDS 46 2 Acute Pharyngitis 07/05/2008 JULI ESPINOZA DDS 46 6.0 Acute Bronchitis 07/05/2008 ESPINOZAJULI JAEGER DDS 46 2 Acute Pharyngitis 07/05/2008 ESPINOZAJULI JAEGER DDS 46 6.0 Acute Bronchitis 07/05/2008 DIONNA INSPECTOR PACKAGER, LAURIE 462 Acute Pharyngitis 07/05/2008 DIONNA INSPECTOR PACKAGER, LAURIE 466 .0 Acute Bronchitis 07/05/2008 YOUNG DO BEAR K 462 Acute Pharyngitis 07/05/2008 YOUNG DO, BEAR K 466.0 Acute Bronchitis 07/05/2008 MARIAN INSPECTOR PACKAGER, PRIETO R 4 62 Acute Pharyngitis 07/05/2008 MARIAN INSPECTOR PACKAGER, PRIETO R 466.0 Acute Bronchitis 07/05/2008 DIONNA INSPECTOR PACKAGER, LAURIE 462 Acute Pharyngitis 07/05/2008 DIONNA INSPECTOR PACKAGER, LAURIE 466 .0 Acute Bronchitis 07/05/2008 MARIAN INSPECTOR PACKAGER, PRIETO R 4 62 Acute Pharyngitis 07/05/2008 MARIAN INSPECTOR PACKAGER, PRIETO R 466.0 Acute Bronchitis 07/05/2008 MARIAN INSPECTOR PACKAGER, PRIETO R 4 62 Acute Pharyngitis 07/05/2008 MARIAN INSPECTOR PACKAGER, PRIETO R 466.0 Acute Bronchitis 07/05/2008 DOUGLAS LEAL MD 462 Acute Pharyngitis 07/05/2008 DOUGLAS LEAL MD 466.0 Acute Bronchitis 07/05/2008 YOUNG DO BEAR K 462 Acute Pharyngitis 07/05/2008 YOUNG DO BEAR K 466.0 Acute Bronchitis 07/30/2008 YOUNG DO BEAR K 29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 07/30/2008 YOUNG DO, BEAR K 511.0 Pleurisy 07/30/2008 YOUNG DO BEAR K 786.2 Cough 07/30/2008 292.9 Unsp ecified Drug- induced Mental Disorder 07/30/2008 511.0 Pleurisy 07/30/2008 786.2 Cough 07/30/2008 292.9 Unsp ecified Drug- induced Mental Disorder 07/30/2008 511.0 Pleurisy 07/30/2008 786.2 Cough 07/30/2008 YOUNG DO BEAR K 29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 07/30/2008 YOUNG DO BEAR K 511.0 Pleurisy 07/30/2008 YOUNG DO, BEAR K 786.2 Cough 07/30/2008 PAU GARCIA APRN R 29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 07/30/2008 PAU GARCIA APRN R 511.0 Pleurisy 07/30/2008 ALICJA GARCIA APRNOXANA Betancourt 786.2 Cough 07/30/2008 292.9 Unsp ecified Drug- induced Mental Disorder 07/30/2008 511.0 Pleurisy 07/30/2008 786.2 Cough 07/30/2008 292.9 Unsp ecified Drug- induced Mental Disorder 07/30/2008 511.0 Pleurisy 07/30/2008 786.2 Cough 07/30/2008 292.9 Unsp ecified Drug- induced Mental Disorder 07/30/2008 511.0 Pleurisy 07/30/2008 786.2 cough 07/30/2008 292.9 Unsp ecified Drug- induced Mental Disorder 07/30/2008 511.0 Pleurisy 07/30/2008 786.2 cough 07/30/2008 292.9 Unsp ecified Drug- induced Mental Disorder 07/30/2008 511.0 Pleurisy 07/30/2008 786.2 cough 07/30/2008 292.9 Unsp ecified Drug- induced Mental Disorder 07/30/2008 511.0 Pleurisy 07/30/2008 786.2 cough 07/30/2008 292.9 Unsp ecified Drug- induced Mental Disorder 07/30/2008 511.0 Pleurisy 07/30/2008 786.2 cough 07/30/2008 292.9 Unsp ecified Drug- induced Mental Disorder 07/30/2008 511.0 Pleurisy 07/30/2008 786.2 cough 07/30/2008 292.9 Unsp ecified Drug- induced Mental Disorder 07/30/2008 511.0 Pleurisy 07/30/2008 786.2 cough 07/30/2008 292.9 Unsp ecified Drug- induced Mental Disorder 07/30/2008 511.0 Pleurisy 07/30/2008 786.2 cough 07/30/2008 RANJAN FRAGOSO, NENO S 29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 07/30/2008 YUKI WOODRUFF APRNA S 511.0 Pleurisy 07/30/2008 YUKI WOODRUFF APRNA S 786.2 cough 07/30/2008 DOUGLAS LEAL MD 29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 07/30/2008 DOUGLAS LEAL MD 511.0 Pleurisy 07/30/2008 DOUGLAS LEAL MD 786.2 cough 07/30/2008 TILA MURILLON, OMAR T 29 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 07/30/2008 TILA MURILLON, OMAR T 51 1.0 Pleurisy 07/30/2008 TILA MURILLON, OMAR T 78 6.2 cough 07/30/2008 RANJAN FRAGOSO NENO S 29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 07/30/2008 RANJAN FRAGOSO, NENO S 511.0 Pleurisy 07/30/2008 RANJAN FRAGOSO, NENO S 786.2 cough 07/30/2008 TILA MURILLOTate OMAR T 29 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 07/30/2008 TILA MURILLON, OMAR T 51 1.0 Pleurisy 07/30/2008 TILA MURILLON, OMAR T 78 6.2 COUGH 07/30/2008 DOUGLAS LEAL MD 29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 07/30/2008 DOUGLAS LEAL MD 511.0 Pleurisy 07/30/2008 DOUGLAS LEAL MD 786.2 COUGH 07/30/2008 BENI INSULATION NOZZLEMAN, AREN B 29 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 07/30/2008 BENI INSULATION NOZZLEMAN, AREN B 51 1.0 Pleurisy 07/30/2008 BENI INSULATION NOZZLEMAN, AREN B 78 6.2 COUGH 07/30/2008 KATIE WOODRUFF APRNNDA S 29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 07/30/2008 RANJAN FRAGOSO NENO S 511.0 Pleurisy 07/30/2008 RANJAN FRAGOSO NENO S 786.2 COUGH 07/30/2008 BRENDA PHD, KAREN Quinn 29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 07/30/2008 BRENDA PHD, KAREN Quinn 511.0 Pleurisy 07/30/2008 BRENDA PHD, KAREN Quinn 786.2 COUGH 07/30/2008 BRENDA PHD, KAREN Quinn 29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 07/30/2008 BRENDA PHD, KAREN Quinn 511.0 Pleurisy 07/30/2008 BRENDA PABLO, KAREN Quinn 786.2 COUGH 07/30/2008 RANJAN FRAGOSO NENO S 29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 07/30/2008 RANJAN INSPECTOR PACKAGER, NENO S 511.0 Pleurisy 07/30/2008 RANJAN INSPECTOR PACKAGER, NENO S 786.2 COUGH 07/30/2008 RANJAN INSPECTOR PACKAGER, NENO S 29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 07/30/2008 RANJAN INSPECTOR PACKAGER, NENO S 511.0 Pleurisy 07/30/2008 RANJAN INSPECTOR PACKAGER, NENO S 786.2 COUGH 07/30/2008 DALY CASHERO INSPECTOR PACKAGER, ROBERTO N 29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 07/30/2008 DALY CASHERO INSPECTOR PACKAGER, ROBERTO N 511.0 Pleurisy 07/30/2008 DALY CASHERO INSPECTOR PACKAGER, ROBERTO N 786.2 COUGH 07/30/2008 RANJAN INSPECTOR PACKAGER, NENO S 29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 07/30/2008 RANJAN INSPECTOR PACKAGER, NENO S 511.0 Pleurisy 07/30/2008 RANJAN INSPECTOR PACKAGER, NENO S 786.2 COUGH 07/30/2008 BRENDA PHD, KAREN Quinn 29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 07/30/2008 BRENDA PHD, KAREN Quinn 511.0 Pleurisy 07/30/2008 BRENDA PHD, KAREN Quinn 786.2 COUGH 07/30/2008 MARIAN INSPECTOR PACKAGER, PRIETO R 29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 07/30/2008 MARIAN INSPECTOR PACKAGER, PRIETO R 511.0 Pleurisy 07/30/2008 MARIAN INSPECTOR PACKAGER, PIRETO R 786.2 COUGH 07/30/2008 DOUGLAS LEAL MD 29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 07/30/2008 DOUGLAS LEAL MD 511.0 Pleurisy 07/30/2008 DOUGLAS LEAL MD 786.2 COUGH 07/30/2008 BRENDA PHD, KAREN Quinn 29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 07/30/2008 BRENDA PHD, KAREN Quinn 511.0 Pleurisy 07/30/2008 BRENDA PHD, KAREN Quinn 786.2 COUGH 07/30/2008 DIONNA INSPECTOR PACKAGER, LAURIE 292 .9 Unspecified Drug-induced Mental Disorder 07/30/2008 DIONNA INSPECTOR PACKAGER, LAURIE 511 .0 Pleurisy 07/30/2008 DIONNA INSPECTOR PACKAGER, LAURIE 786 .2 COUGH 07/30/2008 RANJAN INSPECTOR PACKAGER, NENO S 29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 07/30/2008 RANJAN INSPECTOR PACKAGER, NENO S 511.0 Pleurisy 07/30/2008 RANJAN MURILLON, NENO S 786.2 COUGH 07/30/2008 DIONNA INSPECTOR PACKAGER, LAURIE 292 .9 Unspecified Drug-induced Mental Disorder 07/30/2008 DIONNA INSPECTOR PACKAGER, LAURIE 511 .0 Pleurisy 07/30/2008 DIONNA INSPECTOR PACKAGER, LAURIE 786 .2 COUGH 07/30/2008 DIONNA INSPECTOR PACKAGER, LAURIE 292 .9 Unspecified Drug-induced Mental Disorder 07/30/2008 DIONNA INSPECTOR PACKAGER, LAURIE 511 .0 Pleurisy 07/30/2008 DIONNA INSPECTOR PACKAGER, LAURIE 786 .2 COUGH 07/30/2008 DIONNA INSPECTOR PACKAGER, LAURIE 292 .9 Unspecified Drug-induced Mental Disorder 07/30/2008 DIONNA INSPECTOR PACKAGER, LAURIE 511 .0 Pleurisy 07/30/2008 DIONNA INSPECTOR PACKAGER, LAURIE 786 .2 COUGH 07/30/2008 OMAR ADORNO APRN 29 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 07/30/2008 OMAR ADORNO APRN 51 1.0 Pleurisy 07/30/2008 OMAR ADORNO APRN T 78 6.2 COUGH 07/30/2008 DIONNA INSPECTOR PACKAGER, LAURIE 292 .9 Unspecified Drug-induced Mental Disorder 07/30/2008 DIONNA INSPECTOR PACKAGER, LAURIE 511 .0 Pleurisy 07/30/2008 DIONNA INSPECTOR PACKAGER, LAURIE 786 .2 COUGH 07/30/2008 WHITE DDS, KAITLIN J 29 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 07/30/2008 WHITE DDS, KAITLIN J 51 1.0 Pleurisy 07/30/2008 WHITE DDS, KAITLIN J 78 6.2 COUGH 07/30/2008 ESPINOZA DDSJULI 29 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 07/30/2008 ESPINOZA DDS, JULI 51 1.0 Pleurisy 07/30/2008 ESPINOZA DDS, JULI 78 6.2 COUGH 07/30/2008 ESPINOZA DDSJULI 29 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 07/30/2008 ESPINOZA DDS, JULI 51 1.0 Pleurisy 07/30/2008 ESPINOZA DDS, JULI 78 6.2 COUGH 07/30/2008 DIONNA INSPECTOR PACKAGER, LAURIE 292 .9 Unspecified Drug-induced Mental Disorder 07/30/2008 DIONNA INSPECTOR PACKAGER, LAURIE 511 .0 Pleurisy 07/30/2008 DIONNA INSPECTOR PACKAGER, LAURIE 786 .2 COUGH 07/30/2008 YOUNG DO, BEAR K 29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 07/30/2008 YOUNG DO, BEAR K 511.0 Pleurisy 07/30/2008 YOUNG DO, BEAR K 786.2 COUGH 07/30/2008 MARIAN INSPECTOR PACKAGER, PRIETO R 29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 07/30/2008 MARIAN INSPECTOR PACKAGER, PRIETO R 511.0 Pleurisy 07/30/2008 MARIAN INSPECTOR PACKAGER, PRIETO R 786.2 COUGH 07/30/2008 DIONNA INSPECTOR PACKAGER, LAURIE 292 .9 Unspecified Drug-induced Mental Disorder 07/30/2008 DIONNA INSPECTOR PACKAGER, LAURIE 511 .0 Pleurisy 07/30/2008 DIONNA INSPECTOR PACKAGER, LAURIE 786 .2 COUGH 07/30/2008 MARIAN INSPECTOR PACKAGER, PRIETO R 29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 07/30/2008 MARIAN INSPECTOR PACKAGER, PRIETO R 511.0 Pleurisy 07/30/2008 MARIAN INSPECTOR PACKAGER, PRIETO R 786.2 COUGH 07/30/2008 MARIAN INSPECTOR PACKAGER, PRIETO R 29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 07/30/2008 MARIAN INSPECTOR PACKAGER, PRIETO R 511.0 Pleurisy 07/30/2008 MARIAN INSPECTOR PACKAGER, PRIETO R 786.2 COUGH 07/30/2008 DOUGLAS LEAL MD 29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 07/30/2008 DOUGLAS LEAL MD 511.0 Pleurisy 07/30/2008 DOUGLAS LEAL MD 786.2 COUGH 07/30/2008 YOUNG DO, BEAR K 29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 07/30/2008 YOUNG DO, BEAR K 511.0 Pleurisy 07/30/2008 YOUNG DO, BEAR K 786.2 COUGH 12/12/2008 YOUNG DO, BEAR K 682.4 Cellulitis And Abscess Of Hand Except Fingers And Thumb 12/12/2008 682.4 Cell ulitis And Abscess Of Hand Except Fingers And Thumb 12/12/2008 682.4 Cell ulitis And Abscess Of Hand Except Fingers And Thumb 12/12/2008 BEAR YOUNG DO 682.4 Cellulitis And Abscess Of Hand Except Fingers And Thumb 12/12/2008 PAU GARCIA APRN 682.4 Cellulitis And Abscess Of Hand Except Fingers And Thum b 12/12/2008 682.4 Cell ulitis And Abscess Of Hand Except Fingers And Thumb 12/12/2008 682.4 Cell ulitis And Abscess Of Hand Except Fingers And Thumb 12/12/2008 682.4 Cell ulitis And Abscess Of Hand Except Fingers And Thumb 12/12/2008 682.4 Cell ulitis And Abscess Of Hand Except Fingers And Thumb 12/12/2008 682.4 Cell ulitis And Abscess Of Hand Except Fingers And Thumb 12/12/2008 682.4 Cell ulitis And Abscess Of Hand Except Fingers And Thumb 12/12/2008 682.4 Cell ulitis And Abscess Of Hand Except Fingers And Thumb 12/12/2008 682.4 Cell ulitis And Abscess Of Hand Except Fingers And Thumb 12/12/2008 682.4 Cell ulitis And Abscess Of Hand Except Fingers And Thumb 12/12/2008 682.4 Cell ulitis And Abscess Of Hand Except Fingers And Thumb 12/12/2008 NENO WOODRUFF APRN S 682.4 Cellulitis And Abscess Of Hand Except Fingers And Thum b 12/12/2008 DOUGLAS LEAL MD 682.4 Cellulitis And Abscess Of Hand Except Fingers And Thumb 12/12/2008 OMAR ADORNO APRN 68 2.4 Cellulitis And Abscess Of Hand Except Fingers And Thumb 12/12/2008 NENO WOODRUFF APRN S 682.4 Cellulitis And Abscess Of Hand Except Fingers And Thum b 12/12/2008 OMAR ADORNO APRN 68 2.4 Cellulitis And Abscess Of Hand Except Fingers And Thumb 12/12/2008 DOUGLAS LEAL MD 682.4 Cellulitis And Abscess Of Hand Except Fingers And Thumb 12/12/2008 AREN BAZAN LCPC 68 2.4 Cellulitis And Abscess Of Hand Except Fingers And Thumb 12/12/2008 NENO WOODRUFF APRN S 682.4 Cellulitis And Abscess Of Hand Except Fingers And Thum b 12/12/2008 BRENDA PHD, KAREN Quinn 682.4 Cellulitis And Abscess Of Hand Except Fingers And Thum b 12/12/2008 BRENDA PABLO, KAREN Quinn 682.4 Cellulitis And Abscess Of Hand Except Fingers And Thum b 12/12/2008 RANJANELOISA MURILLON, NENO S 682.4 Cellulitis And Abscess Of Hand Except Fingers And Thum b 12/12/2008 RANJANELOISA MURILLON, NENO S 682.4 Cellulitis And Abscess Of Hand Except Fingers And Thum b 12/12/2008 MALIKA GUILLEN INSPECTOR PACKAGER, ROBERTO N 682.4 Cellulitis And Abscess Of Hand Except Fingers And Thum b 12/12/2008 RANJAN MURILLON, NENO S 682.4 Cellulitis And Abscess Of Hand Except Fingers And Thum b 12/12/2008 BRENDA PHD, KAREN Quinn 682.4 Cellulitis And Abscess Of Hand Except Fingers And Thum b 12/12/2008 MARIAN FRAGOSO, PRIETO Betancourt 682.4 Cellulitis And Abscess Of Hand Except Fingers And Thum b 12/12/2008 DOUGLAS LEAL MD 682.4 Cellulitis And Abscess Of Hand Except Fingers And Thumb 12/12/2008 BRENDA PHD, KAREN Quinn 682.4 Cellulitis And Abscess Of Hand Except Fingers And Thum b 12/12/2008 DIONNA INSPECTOR PACKAGER, LAURIE 682 .4 Cellulitis And Abscess Of Hand Except Fingers And Thumb 12/12/2008 RANJAN MURILLON, NENO S 682.4 Cellulitis And Abscess Of Hand Except Fingers And Thum b 12/12/2008 DIONNA INSPECTOR PACKAGER, LAURIE 682 .4 Cellulitis And Abscess Of Hand Except Fingers And Thumb 12/12/2008 DIONNA INSPECTOR PACKAGER, LAURIE 682 .4 Cellulitis And Abscess Of Hand Except Fingers And Thumb 12/12/2008 DIONNA INSPECTOR PACKAGER, LAURIE 682 .4 Cellulitis And Abscess Of Hand Except Fingers And Thumb 12/12/2008 OMAR ADORNO APRN 68 2.4 Cellulitis And Abscess Of Hand Except Fingers And Thumb 12/12/2008 DIONNA INSPECTOR PACKAGER, LAURIE 682 .4 Cellulitis And Abscess Of Hand Except Fingers And Thumb 12/12/2008 KAITLIN ISLAS DDS 68 2.4 Cellulitis And Abscess Of Hand Except Fingers And Thumb 12/12/2008 JULI ESPINOZA DDS 68 2.4 Cellulitis And Abscess Of Hand Except Fingers And Thumb 12/12/2008 JULI ESPINOZA DDS 68 2.4 Cellulitis And Abscess Of Hand Except Fingers And Thumb 12/12/2008 DIONNA INSPECTOR PACKAGER, LAURIE 682 .4 Cellulitis And Abscess Of Hand Except Fingers And Thumb 12/12/2008 BEAR YOUNG DO 682.4 Cellulitis And Abscess Of Hand Except Fingers And Thumb 12/12/2008 MARIAN FRAGOSO, PRIETO R 682.4 Cellulitis And Abscess Of Hand Except Fingers And Thum b 12/12/2008 DIONNA FOUZIA LAURIE 682 .4 Cellulitis And Abscess Of Hand Except Fingers And Thumb 12/12/2008 MARIAN FRAGOSO, PRIETO R 682.4 Cellulitis And Abscess Of Hand Except Fingers And Thum b 12/12/2008 MARIAN FOUZIA, PRIETO R 682.4 Cellulitis And Abscess Of Hand Except Fingers And Thum b 12/12/2008 DOUGLAS LEAL MD 682.4 Cellulitis And Abscess Of Hand Except Fingers And Thumb 12/12/2008 BEAR YOUNG DO 682.4 Cellulitis And Abscess Of Hand Except Fingers And Thumb 01/17/2009 BEAR YOUNG DO 786.50 Chest Pain 01/17/[address] Pain 01/17/[address] Pain 01/17/2009 BEAR YOUNG DO 786.50 Chest Pain 01/17/2009 PAU GARCIA APRN 786.50 Chest Pain 01/17/[address] Pain 01/17/[address] Pain 01/17/[address] Pain 01/17/[address] Pain 01/17/[address] Pain 01/17/[address] Pain 01/17/[address] Pain 01/17/[address] Pain 01/17/[address] Pain 01/17/[address] Pain 01/17/2009 NENO WOODRUFF APRN 786.50 Chest Pain 01/17/2009 DOUGLAS LEAL MD 786.5 0 Chest Pain 01/17/2009 OMAR ADORNO APRN 786.50 Chest Pain 01/17/2009 RANJAN INSPECTOR PACKAGER, NENO S 786.50 Chest Pain 01/17/2009 OMAR ADORNO APRN 786.50 Chest Pain 01/17/2009 DOUGLAS LEAL MD 786.5 0 Chest Pain 01/17/2009 BENI INSULATION NOZZLEMAN, AREN B 786.50 Chest Pain 01/17/2009 RANJAN INSPECTOR PACKAGER, NENO S 786.50 Chest Pain 01/17/2009 BRENDA PHD, KAREN Quinn 786.50 Chest Pain 01/17/2009 BRENDA PHD, KAREN Quinn 786.50 Chest Pain 01/17/2009 RANAJN INSPECTOR PACKAGER, NENO S 786.50 Chest Pain 01/17/2009 RANJAN INSPECTOR PACKAGER, NENO S 786.50 Chest Pain 01/17/2009 MALIKA GUILLEN INSPECTOR PACKAGER, ROBERTO N 786.50 Chest Pain 01/17/2009 RANJAN INSPECTOR PACKAGER, NENO S 786.50 Chest Pain 01/17/2009 BRENDA PHD, KAREN Quinn 786.50 Chest Pain 01/17/2009 MARIAN INSPECTOR PACKAGER, PRIETO R 786.50 Chest Pain 01/17/2009 DOUGLAS LEAL MD 786.5 0 Chest Pain 01/17/2009 BRENDA PHD, KAREN Quinn 786.50 Chest Pain 01/17/2009 DIONNA INSPECTOR PACKAGER, LAURIE 786 .50 Chest Pain 01/17/2009 RANJAN INSPECTOR PACKAGER, NENO S 786.50 Chest Pain 01/17/2009 DIONNA INSPECTOR PACKAGER, LAURIE 786 .50 Chest Pain 01/17/2009 DIONNA INSPECTOR PACKAGER, LAURIE 786 .50 Chest Pain 01/17/2009 DIONNA INSPECTOR PACKAGER, LAURIE 786 .50 Chest Pain 01/17/2009 OMAR ADORNO APRN 786.50 Chest Pain 01/17/2009 DIONNA INSPECTOR PACKAGER, LAURIE 786 .50 Chest Pain 01/17/2009 ROSHAN DDS, KAITLIN Cortez 786.50 Chest Pain 01/17/2009 ESPINOZA DDJULI Trejo 786.50 Chest Pain 01/17/2009 ESPINOZA DDS, JULI 786.50 Chest Pain 01/17/2009 DIONNA INSPECTOR PACKAGER, LAURIE 786 .50 Chest Pain 01/17/2009 HANNAH COFFMAN, BEAR K 786.50 Chest Pain 01/17/2009 MARIAN INSPECTOR PACKAGER, PRIETO R 786.50 Chest Pain 01/17/2009 DIONNA INSPECTOR PACKAGER, LAURIE 786 .50 Chest Pain 01/17/2009 MARIAN INSPECTOR PACKAGER, PRIETO R 786.50 Chest Pain 01/17/2009 MARIAN INSPECTOR PACKAGER, PRIETO R 786.50 Chest Pain 01/17/2009 MEL JOYCE, DOUGLAS 786.5 0 Chest Pain 01/17/2009 YOUNG DO, BEAR K 786.50 Chest Pain 02/25/2009 YOUNG DO, BEAR K 724.5 Backache, Unspecified 02/25/2009 724.5 Back ache, Unspecified 02/25/2009 724.5 Back ache, Unspecified 02/25/2009 YOUNG DO, BEAR K 724.5 Backache, Unspecified 02/25/2009 JOSE INSPECTOR PACKAGER, PAU R 724.5 Backache, Unspecified 02/25/2009 724.5 Back ache, Unspecified 02/25/2009 724.5 Back ache, Unspecified 02/25/2009 724.5 Back ache, Unspecified 02/25/2009 724.5 Back ache, Unspecified 02/25/2009 724.5 Back ache, Unspecified 02/25/2009 724.5 Back ache, Unspecified 02/25/2009 724.5 Back ache, Unspecified 02/25/2009 724.5 Back ache, Unspecified 02/25/2009 724.5 Back ache, Unspecified 02/25/2009 724.5 Back ache, Unspecified 02/25/2009 RANJAN FRAGOSO, NENO S 724.5 Backache, Unspecified 02/25/2009 DOUGLAS LEAL MD 724.5 Backache, Unspecified 02/25/2009 OMAR ADORNO APRN 72 4.5 Backache, Unspecified 02/25/2009 RANJAN FRAGOSO, NENO S 724.5 Backache, Unspecified 02/25/2009 OMAR ADORNO APRN 72 4.5 Backache, Unspecified 02/25/2009 DOUGLAS LEAL MD 724.5 Backache, Unspecified 02/25/2009 BENI LYNCH, AREN Merida 72 4.5 Backache, Unspecified 02/25/2009 RANJAN FRAGOSO, NENO S 724.5 Backache, Unspecified 02/25/2009 BRENDA PHD, KAREN Quinn 724.5 Backache, Unspecified 02/25/2009 BRENDA PHD, KAREN Quinn 724.5 Backache, Unspecified 02/25/2009 RANJAN INSPECTOR PACKAGER, NENO S 724.5 Backache, Unspecified 02/25/2009 RANJAN INSPECTOR PACKAGER, NENO S 724.5 Backache, Unspecified 02/25/2009 MALIKA GUILLEN INSPECTOR PACKAGER, ROBERTO Ybarra 724.5 Backache, Unspecified 02/25/2009 RANJAN INSPECTOR PACKAGER, NENO S 724.5 Backache, Unspecified 02/25/2009 BRENDA PHD, KAREN Quinn 724.5 Backache, Unspecified 02/25/2009 MARIAN INSPECTOR PACKAGER, PRIETO R 724.5 Backache, Unspecified 02/25/2009 MEL JOYCE, DOUGLAS 724.5 Backache, Unspecified 02/25/2009 BRENDA PHD, KAREN Quinn 724.5 Backache, Unspecified 02/25/2009 DIONNA INSPECTOR PACKAGER, LAURIE 724 .5 Backache, Unspecified 02/25/2009 RANJAN INSPECTOR PACKAGER, NENO S 724.5 Backache, Unspecified 02/25/2009 DIONNA INSPECTOR PACKAGER, LAURIE 724 .5 Backache, Unspecified 02/25/2009 DIONNA INSPECTOR PACKAGER, LAURIE 724 .5 Backache, Unspecified 02/25/2009 DIONNA INSPECTOR PACKAGER, LAURIE 724 .5 Backache, Unspecified 02/25/2009 OMAR ADORNO APRN 72 4.5 Backache, Unspecified 02/25/2009 DIONNA INSPECTOR PACKAGER, LAURIE 724 .5 Backache, Unspecified 02/25/2009 KAITLIN ISLAS DDS 72 4.5 Backache, Unspecified 02/25/2009 ESPINOZA DDSJULI 72 4.5 Backache, Unspecified 02/25/2009 ESPINOZA DDSJULI 72 4.5 Backache, Unspecified 02/25/2009 DIONNA INSPECTOR PACKAGER, LAURIE 724 .5 Backache, Unspecified 02/25/2009 BEAR YOUNG DO 724.5 Backache, Unspecified 02/25/2009 MARIAN INSPECTOR PACKAGER, PRIETO R 724.5 Backache, Unspecified 02/25/2009 DIONNA INSPECTOR PACKAGER, LAURIE 724 .5 Backache, Unspecified 02/25/2009 MARIAN FRAGOSO, PRIETO R 724.5 Backache, Unspecified 02/25/2009 MARIAN FRAGOSO, PRIETO R 724.5 Backache, Unspecified 02/25/2009 DOUGLAS LEAL MD 724.5 Backache, Unspecified 02/25/2009 YOUNG DO, BEAR K 724.5 Backache, Unspecified 02/27/2009 YOUNG DO, BEAR K 698.9 Unspecified Pruritic Disorder 02/27/2009 698.9 Unsp ecified Pruritic Disorder 02/27/2009 698.9 Unsp ecified Pruritic Disorder 02/27/2009 YOUNG DO, BEAR K 698.9 Unspecified Pruritic Disorder 02/27/2009 PAU GARCIA APRN R 698.9 Unspecified Pruritic Disorder 02/27/2009 698.9 Unsp ecified Pruritic Disorder 02/27/2009 698.9 Unsp ecified Pruritic Disorder 02/27/2009 698.9 Unsp ecified Pruritic Disorder 02/27/2009 698.9 Unsp ecified Pruritic Disorder 02/27/2009 698.9 Unsp ecified Pruritic Disorder 02/27/2009 698.9 Unsp ecified Pruritic Disorder 02/27/2009 698.9 Unsp ecified Pruritic Disorder 02/27/2009 698.9 Unsp ecified Pruritic Disorder 02/27/2009 698.9 Unsp ecified Pruritic Disorder 02/27/2009 698.9 Unsp ecified Pruritic Disorder 02/27/2009 NENO WOODRUFF APRN S 698.9 Unspecified Pruritic Disorder 02/27/2009 DOUGLAS LEAL MD 698.9 Unspecified Pruritic Disorder 02/27/2009 OMAR ADORNO APRN T 69 8.9 Unspecified Pruritic Disorder 02/27/2009 NENO WOODRUFF APRN S 698.9 Unspecified Pruritic Disorder 02/27/2009 OMAR ADORNO APRN 69 8.9 Unspecified Pruritic Disorder 02/27/2009 DOUGLAS LEAL MD 698.9 Unspecified Pruritic Disorder 02/27/2009 BENI LYNCH, AREN B 69 8.9 Unspecified Pruritic Disorder 02/27/2009 RANJAN INSPECTOR PACKAGER, NENO S 698.9 Unspecified Pruritic Disorder 02/27/2009 BRENDA PHD, KAREN Quinn 698.9 Unspecified Pruritic Disorder 02/27/2009 BRENDA PHD, KAREN Quinn 698.9 Unspecified Pruritic Disorder 02/27/2009 RANJAN INSPECTOR PACKAGER, NENO S 698.9 Unspecified Pruritic Disorder 02/27/2009 RANJAN INSPECTOR PACKAGER, NENO S 698.9 Unspecified Pruritic Disorder 02/27/2009 MALIKA GUILLEN INSPECTOR PACKAGER, ROBERTO N 698.9 Unspecified Pruritic Disorder 02/27/2009 RANJANELOISA MURILLON, NENO S 698.9 Unspecified Pruritic Disorder 02/27/2009 BRENDA PHD, KAREN Quinn 698.9 Unspecified Pruritic Disorder 02/27/2009 MARIAN MURILLON, PRIETO R 698.9 Unspecified Pruritic Disorder 02/27/2009 MEL JOYCE, DOUGLAS 698.9 Unspecified Pruritic Disorder 02/27/2009 BRENDA PHD, KAREN Quinn 698.9 Unspecified Pruritic Disorder 02/27/2009 DIONNA INSPECTOR PACKAGER, LAURIE 698 .9 Unspecified Pruritic Disorder 02/27/2009 RANJAN INSPECTOR PACKAGER, NENO S 698.9 Unspecified Pruritic Disorder 02/27/2009 DIONNA INSPECTOR PACKAGER, LAURIE 698 .9 Unspecified Pruritic Disorder 02/27/2009 DIONNA INSPECTOR PACKAGER, LAURIE 698 .9 Unspecified Pruritic Disorder 02/27/2009 DIONNA INSPECTOR PACKAGER, LAURIE 698 .9 Unspecified Pruritic Disorder 02/27/2009 OMAR ADORNO APRN 69 8.9 Unspecified Pruritic Disorder 02/27/2009 DIONNA INSPECTOR PACKAGER, LAURIE 698 .9 Unspecified Pruritic Disorder 02/27/2009 ROSHAN GILLESPIESKAITLIN 69 8.9 Unspecified Pruritic Disorder 02/27/2009 JULI ESPINOZA DDS 69 8.9 Unspecified Pruritic Disorder 02/27/2009 ESPINOZA DDSJULI 69 8.9 Unspecified Pruritic Disorder 02/27/2009 DIONNA INSPECTOR PACKAGER, LAURIE 698 .9 Unspecified Pruritic Disorder 02/27/2009 BEAR YOUNG DO 698.9 Unspecified Pruritic Disorder 02/27/2009 MARIAN INSPECTOR PACKAGER, PRIETO R 698.9 Unspecified Pruritic Disorder 02/27/2009 DIONNA INSPECTOR PACKAGER, LAURIE 698 .9 Unspecified Pruritic Disorder 02/27/2009 MARIAN INSPECTOR PACKAGER, PRIETO R 698.9 Unspecified Pruritic Disorder 02/27/2009 MARIAN INSPECTOR PACKAGER, PRIETO R 698.9 Unspecified Pruritic Disorder 02/27/2009 DOUGLAS LEAL MD 698.9 Unspecified Pruritic Disorder 02/27/2009 YOUNG DO, BEAR K 698.9 Unspecified Pruritic Disorder 03/10/2009 YOUNG DO, BEAR K 785.6 Lymph Nodes Enlargement 03/10/2009 785.6 Lymp h Nodes Enlargement 03/10/2009 785.6 Lymp h Nodes Enlargement 03/10/2009 YOUNG DO, BEAR K 785.6 Lymph Nodes Enlargement 03/10/2009 JOSE INSPECTOR PACKAGER, PAU R 785.6 Lymph Nodes Enlargement 03/10/2009 785.6 Lymp h Nodes Enlargement 03/10/2009 785.6 Lymp h Nodes Enlargement 03/10/2009 785.6 Lymp h Nodes Enlargement 03/10/2009 785.6 Lymp h Nodes Enlargement 03/10/2009 785.6 Lymp h Nodes Enlargement 03/10/2009 785.6 Lymp h Nodes Enlargement 03/10/2009 785.6 Lymp h Nodes Enlargement 03/10/2009 785.6 Lymp h Nodes Enlargement 03/10/2009 785.6 Lymp h Nodes Enlargement 03/10/2009 785.6 Lymp h Nodes Enlargement 03/10/2009 YUKI WOODRUFF APRNA S 785.6 Lymph Nodes Enlargement 03/10/2009 DOUGLAS LEAL MD 785.6 Lymph Nodes Enlargement 03/10/2009 OMAR ADORNO APRN 78 5.6 Lymph Nodes Enlargement 03/10/2009 RANJAN FRAGOSO, NENO S 785.6 Lymph Nodes Enlargement 03/10/2009 OMAR ADORNO APRN 78 5.6 Lymph Nodes Enlargement 03/10/2009 DOUGLAS LEAL MD 785.6 Lymph Nodes Enlargement 03/10/2009 BENI LYNCH, AREN B 78 5.6 Lymph Nodes Enlargement 03/10/2009 KATIE WOODRUFF APRNNDA S 785.6 Lymph Nodes Enlargement 03/10/2009 BRENDA PHD, KAREN Quinn 785.6 Lymph Nodes Enlargement 03/10/2009 BRENDA PHD, KAREN Quinn 785.6 Lymph Nodes Enlargement 03/10/2009 RANJAN INSPECTOR PACKAGER, NENO S 785.6 Lymph Nodes Enlargement 03/10/2009 RANJAN INSPECTOR PACKAGER, NENO S 785.6 Lymph Nodes Enlargement 03/10/2009 MALIKA GUILLEN INSPECTOR PACKAGER, ROBERTO N 785.6 Lymph Nodes Enlargement 03/10/2009 RANJAN INSPECTOR PACKAGER, NENO S 785.6 Lymph Nodes Enlargement 03/10/2009 BRENDA PHD, KAREN Quinn 785.6 Lymph Nodes Enlargement 03/10/2009 MARIAN INSPECTOR PACKAGER, PRIETO R 785.6 Lymph Nodes Enlargement 03/10/2009 DOUGLAS LEAL MD 785.6 Lymph Nodes Enlargement 03/10/2009 BRENDA PHD, KAREN Quinn 785.6 Lymph Nodes Enlargement 03/10/2009 DIONNA INSPECTOR PACKAGER, LAURIE 785 .6 Lymph Nodes Enlargement 03/10/2009 RANJAN INSPECTOR PACKAGER, NENO S 785.6 Lymph Nodes Enlargement 03/10/2009 DIONNA INSPECTOR PACKAGER, LAURIE 785 .6 Lymph Nodes Enlargement 03/10/2009 DIONNA INSPECTOR PACKAGER, LAURIE 785 .6 Lymph Nodes Enlargement 03/10/2009 DIONNA INSPECTOR PACKAGER, LAURIE 785 .6 Lymph Nodes Enlargement 03/10/2009 OMAR ADORNO APRN 78 5.6 Lymph Nodes Enlargement 03/10/2009 DIONNA INSPECTOR PACKAGER, LAURIE 785 .6 Lymph Nodes Enlargement 03/10/2009 KAITLIN ISLAS DDS 78 5.6 Lymph Nodes Enlargement 03/10/2009 ESPINOZAJULI PLUMMER DDS 78 5.6 Lymph Nodes Enlargement 03/10/2009 ESPINOZAJULI CROSS DDS 78 5.6 Lymph Nodes Enlargement 03/10/2009 DIONNA INSPECTOR PACKAGER, LAURIE 785 .6 Lymph Nodes Enlargement 03/10/2009 BEAR YOUNG DO 785.6 Lymph Nodes Enlargement 03/10/2009 MARIAN INSPECTOR PACKAGER, PRIETO R 785.6 Lymph Nodes Enlargement 03/10/2009 DIONNA INSPECTOR PACKAGER, LAURIE 785 .6 Lymph Nodes Enlargement 03/10/2009 MARIAN INSPECTOR PACKAGER, PRIETO R 785.6 Lymph Nodes Enlargement 03/10/2009 MARIAN INSPECTOR PACKAGER, PRIETO R 785.6 Lymph Nodes Enlargement 03/10/2009 MEL JOYCE, DOUGLAS 785.6 Lymph Nodes Enlargement 03/10/2009 BEAR YOUNG DO 785.6 Lymph Nodes Enlargement 05/27/2009 BEAR YOUNG DO K 724.2 lower back pain 05/27/2009 BEAR YOUNG DO K 724.3 Neuritis Sciatic 05/27/2009 BAER YOUNG DO K 785.1 Palpitations 05/27/2009 724.2 lowe r back pain 05/27/2009 724.3 Neur itis Sciatic 05/27/2009 785.1 Palp itations 05/27/2009 724.2 lowe r back pain 05/27/2009 724.3 Neur itis Sciatic 05/27/2009 785.1 Palp itations 05/27/2009 BEAR YOUNG DO K 724.2 lower back pain 05/27/2009 BEAR YOUNG DO K 724.3 Neuritis Sciatic 05/27/2009 BEAR YOUNG DO K 785.1 Palpitations 05/27/2009 JOSE INSPECTOR PACKAGER, PAU R 724.2 lower back pain 05/27/2009 JOSE INSPECTOR PACKAGER, PAU R 724.3 Neuritis Sciatic 05/27/2009 JOSE INSPECTOR PACKAGER, PAU R 785.1 Palpitations 05/27/2009 724.2 lowe r back pain 05/27/2009 724.3 Neur itis Sciatic 05/27/2009 785.1 Palp itations 05/27/2009 724.2 lowe r back pain 05/27/2009 724.3 Neur itis Sciatic 05/27/2009 785.1 Palp itations 05/27/2009 724.2 lowe r back pain 05/27/2009 724.3 Neur itis Sciatic 05/27/2009 785.1 Palp itations 05/27/2009 724.2 lowe r back pain 05/27/2009 724.3 Neur itis Sciatic 05/27/2009 785.1 Palp itations 05/27/2009 724.2 lowe r back pain 05/27/2009 724.3 Neur itis Sciatic 05/27/2009 785.1 Palp itations 05/27/2009 724.2 lowe r back pain 05/27/2009 724.3 Neur itis Sciatic 05/27/2009 785.1 Palp itations 05/27/2009 724.2 lowe r back pain 05/27/2009 724.3 Neur itis Sciatic 05/27/2009 785.1 Palp itations 05/27/2009 724.2 lowe r back pain 05/27/2009 724.3 Neur itis Sciatic 05/27/2009 785.1 Palp itations 05/27/2009 724.2 lowe r back pain 05/27/2009 724.3 Neur itis Sciatic 05/27/2009 785.1 Palp itations 05/27/2009 724.2 lowe r back pain 05/27/2009 724.3 Neur itis Sciatic 05/27/2009 785.1 Palp itations 05/27/2009 NENO WOODRUFF APRN S 724.2 lower back pain 05/27/2009 NENO WOODRUFF APRN S 724.3 Neuritis Sciatic 05/27/2009 NENO WOODRUFF APRN S 785.1 Palpitations 05/27/2009 DOUGLAS LEAL MD 724.2 lower back pain 05/27/2009 DOUGLAS LEAL MD 724.3 Neuritis Sciatic 05/27/2009 DOUGLAS LEAL MD 785.1 Palpitations 05/27/2009 OMAR ADORNO APRN T 72 4.2 lower back pain 05/27/2009 OMAR ADORNO APRN T 72 4.3 Neuritis Sciatic 05/27/2009 OMAR ADORNO APRN T 78 5.1 Palpitations 05/27/2009 NENO WOODRUFF APRN S 724.2 lower back pain 05/27/2009 KATIE WOODRUFF APRNNDA S 724.3 Neuritis Sciatic 05/27/2009 NENO WOODRUFF APRN S 785.1 Palpitations 05/27/2009 OMAR ADORNO APRN T 72 4.2 lower back pain 05/27/2009 OMAR ADORNO APRN T 72 4.3 Neuritis Sciatic 05/27/2009 OMAR ADORNO APRN T 78 5.1 Palpitations 05/27/2009 DOUGLAS LEAL MD 724.2 lower back pain 05/27/2009 DOUGLAS LEAL MD 724.3 Neuritis Sciatic 05/27/2009 DOUGLAS LEAL MD 785.1 Palpitations 05/27/2009 BENI INSULATION NOZZLEMAN, AREN B 72 4.2 lower back pain 05/27/2009 BENI INSULATION NOZZLEMAN, AREN B 72 4.3 Neuritis Sciatic 05/27/2009 BENI INSULATION NOZZLEMAN, AREN B 78 5.1 Palpitations 05/27/2009 RANJAN INSPECTOR PACKAGER, NENO S 724.2 lower back pain 05/27/2009 RANJAN INSPECTOR PACKAGER, NENO S 724.3 Neuritis Sciatic 05/27/2009 RANJAN INSPECTOR PACKAGER, NENO S 785.1 Palpitations 05/27/2009 BRENDA PHD, KAREN Quinn 724.2 lower back pain 05/27/2009 BRENDA PHD, KAREN Quinn 724.3 Neuritis Sciatic 05/27/2009 BRENDA PABLO, KAREN Quinn 785.1 Palpitations 05/27/2009 BRENDA PABLO, KAREN Quinn 724.2 lower back pain 05/27/2009 BRENDA PHD, KAREN Quinn 724.3 Neuritis Sciatic 05/27/2009 BRENDA PHD, KAREN Quinn 785.1 Palpitations 05/27/2009 RANJAN INSPECTOR PACKAGER, NENO S 724.2 lower back pain 05/27/2009 RANJAN INSPECTOR PACKAGER, NENO S 724.3 Neuritis Sciatic 05/27/2009 RANJAN INSPECTOR PACKAGER, NENO S 785.1 Palpitations 05/27/2009 RANJAN INSPECTOR PACKAGER, NENO S 724.2 lower back pain 05/27/2009 RANJAN INSPECTOR PACKAGER, NENO S 724.3 Neuritis Sciatic 05/27/2009 RANJAN INSPECTOR PACKAGER, NENO S 785.1 Palpitations 05/27/2009 DALY CASHERO INSPECTOR PACKAGER, ROBERTO N 724.2 lower back pain 05/27/2009 DALY CASHERO INSPECTOR PACKAGER, ROBERTO N 724.3 Neuritis Sciatic 05/27/2009 DALY CASHERO INSPECTOR PACKAGER, ROBERTO N 785.1 Palpitations 05/27/2009 RANJAN INSPECTOR PACKAGER, NENO S 724.2 lower back pain 05/27/2009 ARNJAN INSPECTOR PACKAGER, NENO S 724.3 Neuritis Sciatic 05/27/2009 RANJAN INSPECTOR PACKAGER, NENO S 785.1 Palpitations 05/27/2009 BRENDA PHD, KAREN Quinn 724.2 lower back pain 05/27/2009 BRENDA PHD, KAREN Quinn 724.3 Neuritis Sciatic 05/27/2009 BRENDA PHD, KAREN Quinn 785.1 Palpitations 05/27/2009 MARIAN INSPECTOR PACKAGER, PRIETO R 724.2 lower back pain 05/27/2009 MARIAN INSPECTOR PACKAGER, PRIETO R 724.3 Neuritis Sciatic 05/27/2009 MARIAN INSPECTOR PACKAGER, PRIETO R 785.1 Palpitations 05/27/2009 MEL JOYCE, DOUGLAS 724.2 lower back pain 05/27/2009 MEL JOYCE, DOUGLAS 724.3 Neuritis Sciatic 05/27/2009 MEL JOYCE, DOUGLAS 785.1 Palpitations 05/27/2009 BRENDA PHD, KAREN Quinn 724.2 lower back pain 05/27/2009 BRENDA PHD, KAREN Quinn 724.3 Neuritis Sciatic 05/27/2009 BRENDA PHD, KAREN Quinn 785.1 Palpitations 05/27/2009 DIONNA INSPECTOR PACKAGER, LAURIE 724 .2 lower back pain 05/27/2009 DIONNA INSPECTOR PACKAGER, LAURIE 724 .3 Neuritis Sciatic 05/27/2009 DIONNA INSPECTOR PACKAGER, LAURIE 785 .1 Palpitations 05/27/2009 RANJAN INSPECTOR PACKAGER, NENO S 724.2 lower back pain 05/27/2009 RANJAN INSPECTOR PACKAGER, NENO S 724.3 Neuritis Sciatic 05/27/2009 RANJAN INSPECTOR PACKAGER, NENO S 785.1 Palpitations 05/27/2009 DIONNA INSPECTOR PACKAGER, LAURIE 724 .2 lower back pain 05/27/2009 DIONNA INSPECTOR PACKAGER, LAURIE 724 .3 Neuritis Sciatic 05/27/2009 DIONNA INSPECTOR PACKAGER, LAURIE 785 .1 Palpitations 05/27/2009 DIONNA INSPECTOR PACKAGER, LAURIE 724 .2 lower back pain 05/27/2009 DIONNA INSPECTOR PACKAGER, LAURIE 724 .3 Neuritis Sciatic 05/27/2009 DIONNA INSPECTOR PACKAGER, LAURIE 785 .1 Palpitations 05/27/2009 DIONNA INSPECTOR PACKAGER, LAURIE 724 .2 lower back pain 05/27/2009 DIONNA INSPECTOR PACKAGER, LAURIE 724 .3 Neuritis Sciatic 05/27/2009 DIONNA INSPECTOR PACKAGER, LAURIE 785 .1 Palpitations 05/27/2009 TILA INSPECTOR PACKAGER, OMAR T 72 4.2 lower back pain 05/27/2009 TILA INSPECTOR PACKAGER, OMAR T 72 4.3 Neuritis Sciatic 05/27/2009 TILA INSPECTOR PACKAGER, OMAR T 78 5.1 Palpitations 05/27/2009 DIONNA INSPECTOR PACKAGER, LAURIE 724 .2 lower back pain 05/27/2009 DIONNA INSPECTOR PACKAGER, LAURIE 724 .3 Neuritis Sciatic 05/27/2009 DIONNA INSPECTOR PACKAGER, LAURIE 785 .1 Palpitations 05/27/2009 WHITE DDS, KAITLIN J 72 4.2 lower back pain 05/27/2009 WHITE DDS, KAITLIN J 72 4.3 Neuritis Sciatic 05/27/2009 WHITE DDS, KAITLIN J 78 5.1 Palpitations 05/27/2009 ESPINOZA DDS, JULI 72 4.2 lower back pain 05/27/2009 ESPINOZA DDS, JULI 72 4.3 Neuritis Sciatic 05/27/2009 ESPINOZA DDS, JULI 78 5.1 Palpitations 05/27/2009 ESPINOZA DDS, JULI 72 4.2 lower back pain 05/27/2009 ESPINOZA DDS, JULI 72 4.3 Neuritis Sciatic 05/27/2009 ESPINOZA DDS, JULI 78 5.1 Palpitations 05/27/2009 DIONNA INSPECTOR PACKAGER, LAURIE 724 .2 lower back pain 05/27/2009 DIONNA INSPECTOR PACKAGER, LAURIE 724 .3 Neuritis Sciatic 05/27/2009 DIONNA INSPECTOR PACKAGER, LAURIE 785 .1 Palpitations 05/27/2009 YOUNG DO, BEAR K 724.2 lower back pain 05/27/2009 YOUNG DO, BEAR K 724.3 Neuritis Sciatic 05/27/2009 YOUNG DO, BEAR K 785.1 Palpitations 05/27/2009 MARIAN INSPECTOR PACKAGER, PRIETO R 724.2 lower back pain 05/27/2009 MARIAN INSPECTOR PACKAGER, PRIETO R 724.3 Neuritis Sciatic 05/27/2009 MARIAN INSPECTOR PACKAGER, PRIETO R 785.1 Palpitations 05/27/2009 DIONNA INSPECTOR PACKAGER, LAURIE 724 .2 lower back pain 05/27/2009 DIONNA INSPECTOR PACKAGER, LAURIE 724 .3 Neuritis Sciatic 05/27/2009 LAURIE VILLAREAL APRN 785 .1 Palpitations 05/27/2009 MARIAN MURILLON, PRIETO R 724.2 lower back pain 05/27/2009 MARIAN MURILLON, PRIETO R 724.3 Neuritis Sciatic 05/27/2009 MARIAN MURILLON, PRIETO R 785.1 Palpitations 05/27/2009 MARIAN MURILLON, PRIETO R 724.2 lower back pain 05/27/2009 MARIAN MURILLON, PRIETO R 724.3 Neuritis Sciatic 05/27/2009 MARIAN FRAGOSO, PRIETO R 785.1 Palpitations 05/27/2009 DOUGLAS LEAL MD 724.2 lower back pain 05/27/2009 DOUGLAS LEAL MD 724.3 Neuritis Sciatic 05/27/2009 DOUGLAS LEAL MD 785.1 Palpitations 05/27/2009 BEAR YOUNG DO 724.2 lower back pain 05/27/2009 BEAR YOUNG DO 724.3 Neuritis Sciatic 05/27/2009 BEAR YOUNG DO 785.1 Palpitations 06/26/2009 BEAR YOUNG DO 278.01 MORBID OBESITY 06/26/2009 BEAR YOUNG DO 460 Acute Nasopharyngitis [common Cold] 06/26/2009 278.01 MOR BID OBESITY 06/26/2009 460 Acute Nasopharyngitis [common Cold] 06/26/2009 278.01 MOR BID OBESITY 06/26/2009 460 Acute Nasopharyngitis [common Cold] 06/26/2009 BEAR YOUNG DO 278.01 MORBID OBESITY 06/26/2009 BEAR YOUNG DO 460 Acute Nasopharyngitis [common Cold] 06/26/2009 PAU GARCIA APRN 278.01 MORBID OBESITY 06/26/2009 PAU GARCIA APRN 460 Acute Nasopharyngitis [common Cold] 06/26/2009 278.01 MOR BID OBESITY 06/26/2009 460 Acute Nasopharyngitis [common Cold] 06/26/2009 278.01 MOR BID OBESITY 06/26/2009 460 Acute Nasopharyngitis [common Cold] 06/26/2009 278.01 MOR BID OBESITY 06/26/2009 460 Acute Nasopharyngitis [common Cold] 06/26/2009 278.01 MOR BID OBESITY 06/26/2009 460 Acute Nasopharyngitis [common Cold] 06/26/2009 278.01 MOR BID OBESITY 06/26/2009 460 Acute Nasopharyngitis [common Cold] 06/26/2009 278.01 MOR BID OBESITY 06/26/2009 460 Acute Nasopharyngitis [common Cold] 06/26/2009 278.01 MOR BID OBESITY 06/26/2009 460 Acute Nasopharyngitis [common Cold] 06/26/2009 278.01 MOR BID OBESITY 06/26/2009 460 Acute Nasopharyngitis [common Cold] 06/26/2009 278.01 MOR BID OBESITY 06/26/2009 460 Acute Nasopharyngitis [common Cold] 06/26/2009 278.01 MOR BID OBESITY 06/26/2009 460 Acute Nasopharyngitis [common Cold] 06/26/2009 NENO WOODRUFF APRN 278.01 MORBID OBESITY 06/26/2009 NENO WOODRUFF APRN 460 Acute Nasopharyngitis [common Cold] 06/26/2009 DOUGLAS LEAL MD 278.0 1 MORBID OBESITY 06/26/2009 DOUGLAS LEAL MD 460 Acute Nasopharyngitis [common Cold] 06/26/2009 OMAR ADORNO APRN 278.01 MORBID OBESITY 06/26/2009 OMAR ADORNO APRN 46 0 Acute Nasopharyngitis [common Cold] 06/26/2009 NENO WOODRUFF APRN 278.01 MORBID OBESITY 06/26/2009 NENO WOODRUFF APRN 460 Acute Nasopharyngitis [common Cold] 06/26/2009 OMAR ADORNO APRN 278.01 MORBID OBESITY 06/26/2009 OMAR ADORNO APRN 46 0 Acute Nasopharyngitis [common Cold] 06/26/2009 DOUGLAS LEAL MD 278.0 1 MORBID OBESITY 06/26/2009 DOUGLAS LEAL MD 460 Acute Nasopharyngitis [common Cold] 06/26/2009 AREN BAZAN LCPC 278.01 MORBID OBESITY 06/26/2009 AREN BAZAN LCPC 46 0 Acute Nasopharyngitis [common Cold] 06/26/2009 NENO WOODRUFF APRN S 278.01 MORBID OBESITY 06/26/2009 NENO WOODRUFF APRN S 460 Acute Nasopharyngitis [common Cold] 06/26/2009 BRENDA PABLO, KAREN Quinn 278.01 MORBID OBESITY 06/26/2009 KAREN GUTIERREZ PHD 460 Acute Nasopharyngitis [common Cold] 06/26/2009 KAREN GUTIERREZ PHD 278.01 MORBID OBESITY 06/26/2009 KAREN GUTIERREZ PHD 460 Acute Nasopharyngitis [common Cold] 06/26/2009 RANJAN FRAGOSO, NENO S 278.01 MORBID OBESITY 06/26/2009 RANJAN FRAGOSO, NENO S 460 Acute Nasopharyngitis [common Cold] 06/26/2009 RANJAN FRAGOSO, NENO S 278.01 MORBID OBESITY 06/26/2009 RANJAN FRAGOSO, NENO S 460 Acute Nasopharyngitis [common Cold] 06/26/2009 DALY CASHERO INSPECTOR PACKAGER, ROBERTO N 278.01 MORBID OBESITY 06/26/2009 DALY CASHERO INSPECTOR PACKAGER, ROBERTO N 460 Acute Nasopharyngitis [common Cold] 06/26/2009 RANJAN FRAGOSO, NENO S 278.01 MORBID OBESITY 06/26/2009 RANJAN FRAGOSO, NENO S 460 Acute Nasopharyngitis [common Cold] 06/26/2009 BRENDA PABLO, KAREN Quinn 278.01 MORBID OBESITY 06/26/2009 KAREN GUTIERREZ PHD 460 Acute Nasopharyngitis [common Cold] 06/26/2009 MARIAN FRAGOSO, PRIETO R 278.01 MORBID OBESITY 06/26/2009 MARIAN FRAGOSO PRIETO R 4 60 Acute Nasopharyngitis [common Cold] 06/26/2009 DOUGLAS LEAL MD 278.0 1 MORBID OBESITY 06/26/2009 DOUGLAS LEAL MD 460 Acute Nasopharyngitis [common Cold] 06/26/2009 KAREN GUTIERREZ PHD 278.01 MORBID OBESITY 06/26/2009 KAREN GUTIERREZ PHD 460 Acute Nasopharyngitis [common Cold] 06/26/2009 LAURIE VILLAREAL APRN 278 .01 MORBID OBESITY 06/26/2009 LAURIE VILLAREAL APRN 460 Acute Nasopharyngitis [common Cold] 06/26/2009 RANJAN FRAGOSO, NENO S 278.01 MORBID OBESITY 06/26/2009 RANJAN FRAGOSO, NENO S 460 Acute Nasopharyngitis [common Cold] 06/26/2009 DIONNA FRAGOSO LAURIE 278 .01 MORBID OBESITY 06/26/2009 LAURIE VILLAREAL APRN 460 Acute Nasopharyngitis [common Cold] 06/26/2009 LAURIE VILLAREAL APRN 278 .01 MORBID OBESITY 06/26/2009 LAURIE VILLAREAL APRN 460 Acute Nasopharyngitis [common Cold] 06/26/2009 LAURIE VILLAREAL APRN 278 .01 MORBID OBESITY 06/26/2009 LAURIE VILLAREAL APRN 460 Acute Nasopharyngitis [common Cold] 06/26/2009 OMAR ADORNO APRN 278.01 MORBID OBESITY 06/26/2009 OMAR ADORNO APRN 46 0 Acute Nasopharyngitis [common Cold] 06/26/2009 LAURIE VILLAREAL APRN 278 .01 MORBID OBESITY 06/26/2009 LAURIE VILLAREAL APRN 460 Acute Nasopharyngitis [common Cold] 06/26/2009 ROSHAN GILLESPIESKAITLIN J 278.01 MORBID OBESITY 06/26/2009 ROSHAN GILLESPIESKAITLIN 46 0 Acute Nasopharyngitis [common Cold] 06/26/2009 JULI ESPINOZA DDS 278.01 MORBID OBESITY 06/26/2009 OLGA GILLESPIESJULI 46 0 Acute Nasopharyngitis [common Cold] 06/26/2009 ESPINOZA DDSJULI 278.01 MORBID OBESITY 06/26/2009 OLGA GILLESPIESJULI 46 0 Acute Nasopharyngitis [common Cold] 06/26/2009 LAURIE VILLAREAL APRN 278 .01 MORBID OBESITY 06/26/2009 RAMEZ VILLAREAL APRNETTE 460 Acute Nasopharyngitis [common Cold] 06/26/2009 BEAR YOUNG DO K 278.01 MORBID OBESITY 06/26/2009 BEAR YOUNG DO K 460 Acute Nasopharyngitis [common Cold] 06/26/2009 MARIAN FRAGOSO PRIETO R 278.01 MORBID OBESITY 06/26/2009 MARIAN FRAGOSO PRIETO R 4 60 Acute Nasopharyngitis [common Cold] 06/26/2009 RAMEZ VILLAREAL APRNETTE 278 .01 MORBID OBESITY 06/26/2009 RAMEZ VILLAREAL APRNETTE 460 Acute Nasopharyngitis [common Cold] 06/26/2009 MARIAN FRAGOSO PRIETO R 278.01 MORBID OBESITY 06/26/2009 MARIAN FRAGOSO PRIETO R 4 60 Acute Nasopharyngitis [common Cold] 06/26/2009 PRIETO FONSECA APRN R 278.01 MORBID OBESITY 06/26/2009 PRIETO FONSECA APRN R 4 60 Acute Nasopharyngitis [common Cold] 06/26/2009 DOUGLAS LEAL MD 278.0 1 MORBID OBESITY 06/26/2009 DOUGLAS LEAL MD 460 Acute Nasopharyngitis [common Cold] 06/26/2009 YOUNG KENDY COFFMANA K 278.01 MORBID OBESITY 06/26/2009 YOUNG BEAR COFFMAN K 460 Acute Nasopharyngitis [common Cold] 07/04/2009 HANNAH COFFMAN BEAR K 682.6 Cellulitis Of The Left Thigh 07/04/2009 682.6 Cell ulitis Of The Left Thigh 07/04/2009 682.6 Cell ulitis Of The Left Thigh 07/04/2009 BEAR YOUNG DO K 682.6 Cellulitis Of The Left Thigh 07/04/2009 PAU GARCIA APRN 682.6 Cellulitis Of The Left Thigh 07/04/2009 682.6 Cell ulitis Of The Left Thigh 07/04/2009 682.6 Cell ulitis Of The Left Thigh 07/04/2009 682.6 Cell ulitis Of The Left Thigh 07/04/2009 682.6 Cell ulitis Of The Left Thigh 07/04/2009 682.6 Cell ulitis Of The Left Thigh 07/04/2009 682.6 Cell ulitis Of The Left Thigh 07/04/2009 682.6 Cell ulitis Of The Left Thigh 07/04/2009 682.6 Cell ulitis Of The Left Thigh 07/04/2009 682.6 Cell ulitis Of The Left Thigh 07/04/2009 682.6 Cell ulitis Of The Left Thigh 07/04/2009 NENO WOODRUFF APRN 682.6 Cellulitis Of The Left Thigh 07/04/2009 DOUGLAS LEAL MD 682.6 Cellulitis Of The Left Thigh 07/04/2009 OMAR ADORNO APRN 68 2.6 Cellulitis Of The Left Thigh 07/04/2009 NENO WOODRUFF APRN 682.6 Cellulitis Of The Left Thigh 07/04/2009 OMAR ADORNO APRN 68 2.6 Cellulitis Of The Left Thigh 07/04/2009 DOUGLAS LEAL MD 682.6 Cellulitis Of The Left Thigh 07/04/2009 AREN BAZAN LCPC 68 2.6 Cellulitis Of The Left Thigh 07/04/2009 RANJAN INSPECTOR PACKAGER, NENO S 682.6 Cellulitis Of The Left Thigh 07/04/2009 BRENDA PHD, KAREN Quinn 682.6 Cellulitis Of The Left Thigh 07/04/2009 BRENDA PHD, KAREN Quinn 682.6 Cellulitis Of The Left Thigh 07/04/2009 RANJAN INSPECTOR PACKAGER, NENO S 682.6 Cellulitis Of The Left Thigh 07/04/2009 RANJAN INSPECTOR PACKAGER, NENO S 682.6 Cellulitis Of The Left Thigh 07/04/2009 MALIKA GUILLEN INSPECTOR PACKAGER, ROBERTO Ybarra 682.6 Cellulitis Of The Left Thigh 07/04/2009 RANJAN INSPECTOR PACKAGER, NENO S 682.6 Cellulitis Of The Left Thigh 07/04/2009 BRENDA PHD, KAREN Quinn 682.6 Cellulitis Of The Left Thigh 07/04/2009 MARIAN FRAGOSO, PRIETO Betancourt 682.6 Cellulitis Of The Left Thigh 07/04/2009 DOUGLAS LEAL MD 682.6 Cellulitis Of The Left Thigh 07/04/2009 BRENDA PHD, KAREN Quinn 682.6 Cellulitis Of The Left Thigh 07/04/2009 DIONNA INSPECTOR PACKAGER, LAURIE 682 .6 Cellulitis Of The Left Thigh 07/04/2009 RANJAN INSPECTOR PACKAGER, NENO S 682.6 Cellulitis Of The Left Thigh 07/04/2009 DIONNA INSPECTOR PACKAGER, LAURIE 682 .6 Cellulitis Of The Left Thigh 07/04/2009 DIONNA INSPECTOR PACKAGER, LAURIE 682 .6 Cellulitis Of The Left Thigh 07/04/2009 DIONNA INSPECTOR PACKAGER, LAURIE 682 .6 Cellulitis Of The Left Thigh 07/04/2009 OMAR ADORNO APRN 68 2.6 Cellulitis Of The Left Thigh 07/04/2009 DIONNA INSPECTOR PACKAGER, LAURIE 682 .6 Cellulitis Of The Left Thigh 07/04/2009 KAITLIN ISLAS DDS 68 2.6 Cellulitis Of The Left Thigh 07/04/2009 JULI ESPINOZA DDS 68 2.6 Cellulitis Of The Left Thigh 07/04/2009 JULI ESPINOZA DDS 68 2.6 Cellulitis Of The Left Thigh 07/04/2009 DIONNA FRAGOSO, LAURIE 682 .6 Cellulitis Of The Left Thigh 07/04/2009 BEAR YOUNG DO K 682.6 Cellulitis Of The Left Thigh 07/04/2009 MARIAN FRAGOSO, PRIETO R 682.6 Cellulitis Of The Left Thigh 07/04/2009 DIONNA FRAGOSO, LAURIE 682 .6 Cellulitis Of The Left Thigh 07/04/2009 MARIAN MURILLON, PRIETO R 682.6 Cellulitis Of The Left Thigh 07/04/2009 MARIAN INSPECTOR PACKAGER, PRIETO R 682.6 Cellulitis Of The Left Thigh 07/04/2009 DOUGLAS LEAL MD 682.6 Cellulitis Of The Left Thigh 07/04/2009 BEAR YOUNG DO K 682.6 Cellulitis Of The Left Thigh 08/07/2009 BEAR YOUNG DO 787.91 Diarrhea 08/07/2009 787.91 Valentina rrhea 08/07/2009 787.91 Valentina rrhea 08/07/2009 BEAR YOUNG DO 787.91 Diarrhea 08/07/2009 PAU GARCIA APRN 787.91 Diarrhea 08/07/2009 787.91 Valentina rrhea 08/07/2009 787.91 Valentina rrhea 08/07/2009 787.91 Valentina rrhea 08/07/2009 787.91 Valentina rrhea 08/07/2009 787.91 Valentina rrhea 08/07/2009 787.91 Valentina rrhea 08/07/2009 787.91 Valentina rrhea 08/07/2009 787.91 Valentina rrhea 08/07/2009 787.91 Valentina rrhea 08/07/2009 787.91 Valentina rrhea 08/07/2009 NENO WOODRUFF APRN 787.91 Diarrhea 08/07/2009 DOUGLAS LEAL MD 787.9 1 Diarrhea 08/07/2009 OMAR ADORNO APRN 787.91 Diarrhea 08/07/2009 NENO WOODRUFF APRN 787.91 Diarrhea 08/07/2009 OMAR ADORNO APRN 787.91 Diarrhea 08/07/2009 DOUGLAS LEAL MD 787.9 1 Diarrhea 08/07/2009 AREN BAZAN LCPC 787.91 Diarrhea 08/07/2009 RANJAN INSPECTOR PACKAGER, NENO S 787.91 Diarrhea 08/07/2009 BRENDA PHD, KAREN Quinn 787.91 Diarrhea 08/07/2009 BRENDA PHD, KAREN Quinn 787.91 Diarrhea 08/07/2009 RANJAN INSPECTOR PACKAGER, NENO S 787.91 Diarrhea 08/07/2009 RANJAN INSPECTOR PACKAGER, NENO S 787.91 Diarrhea 08/07/2009 MALIKA GUILLEN INSPECTOR PACKAGERROBERTO N 787.91 Diarrhea 08/07/2009 RANJAN INSPECTOR PACKAGER, NENO S 787.91 Diarrhea 08/07/2009 BRENDA PHD, KAREN Quinn 787.91 Diarrhea 08/07/2009 MARIAN INSPECTOR PACKAGER, PRIETO R 787.91 Diarrhea 08/07/2009 DOUGLAS LEAL MD 787.9 1 Diarrhea 08/07/2009 BRENDA PHD, KAREN Quinn 787.91 Diarrhea 08/07/2009 DIONNA INSPECTOR PACKAGER, LAURIE 787 .91 Diarrhea 08/07/2009 RANJAN INSPECTOR PACKAGER, NENO S 787.91 Diarrhea 08/07/2009 DIONNA INSPECTOR PACKAGER, LAURIE 787 .91 Diarrhea 08/07/2009 DIONNA INSPECTOR PACKAGER, LAURIE 787 .91 Diarrhea 08/07/2009 DIONNA INSPECTOR PACKAGER, LAURIE 787 .91 Diarrhea 08/07/2009 OMAR ADORNO APRN 787.91 Diarrhea 08/07/2009 DIONNA INSPECTOR PACKAGER, LAURIE 787 .91 Diarrhea 08/07/2009 ROSHAN DDS, KAITLIN Cortez 787.91 Diarrhea 08/07/2009 ESPINOZA DDS, JULI 787.91 Diarrhea 08/07/2009 ESPINOZA DDS, JULI 787.91 Diarrhea 08/07/2009 DIONNA INSPECTOR PACKAGER, LAURIE 787 .91 Diarrhea 08/07/2009 YOUNG DOKENDYA K 787.91 Diarrhea 08/07/2009 MARIAN INSPECTOR PACKAGER, PRIETO R 787.91 Diarrhea 08/07/2009 DIONNA INSPECTOR PACKAGER, LAURIE 787 .91 Diarrhea 08/07/2009 MARIAN INSPECTOR PACKAGER, PRIETO R 787.91 Diarrhea 08/07/2009 MARIAN INSPECTOR PACKAGER, PRIETO R 787.91 Diarrhea 08/07/2009 DOUGLAS LEAL MD 787.9 1 Diarrhea 08/07/2009 YOUNG DO BEAR K 787.91 Diarrhea 09/18/2009 YOUNG DO, BEAR K 692.6 Contact Dermatitis And Other Eczema, Due To Plants [except Food] 09/18/2009 692.6 Cont act Dermatitis And Other Eczema, Due To Plants [except Food] 09/18/2009 692.6 Cont act Dermatitis And Other Eczema, Due To Plants [except Food] 09/18/2009 YOUNG DO, BEAR K 692.6 Contact Dermatitis And Other Eczema, Due To Plants [except Food] 09/18/2009 PAU GARCIA APRN 692.6 Contact Dermatitis And Other Eczema, Due To Plants [ex cept Food] 09/18/2009 692.6 Cont act Dermatitis And Other Eczema, Due To Plants [except Food] 09/18/2009 692.6 Cont act Dermatitis And Other Eczema, Due To Plants [except Food] 09/18/2009 692.6 Cont act Dermatitis And Other Eczema, Due To Plants [except Food] 09/18/2009 692.6 Cont act Dermatitis And Other Eczema, Due To Plants [except Food] 09/18/2009 692.6 Cont act Dermatitis And Other Eczema, Due To Plants [except Food] 09/18/2009 692.6 Cont act Dermatitis And Other Eczema, Due To Plants [except Food] 09/18/2009 692.6 Cont act Dermatitis And Other Eczema, Due To Plants [except Food] 09/18/2009 692.6 Cont act Dermatitis And Other Eczema, Due To Plants [except Food] 09/18/2009 692.6 Cont act Dermatitis And Other Eczema, Due To Plants [except Food] 09/18/2009 692.6 Cont act Dermatitis And Other Eczema, Due To Plants [except Food] 09/18/2009 NENO WOODRUFF APRN S 692.6 Contact Dermatitis And Other Eczema, Due To Plants [ex cept Food] 09/18/2009 DOUGLAS LEAL MD 692.6 Contact Dermatitis And Other Eczema, Due To Plants [except Food] 09/18/2009 OMAR ADORNO APRN 69 2.6 Contact Dermatitis And Other Eczema, Due To Plants [except Food] 09/18/2009 NENO WOODRUFF APRN S 692.6 Contact Dermatitis And Other Eczema, Due To Plants [ex cept Food] 09/18/2009 TILA INSPECTOR PACKAGER, OMAR T 69 2.6 Contact Dermatitis And Other Eczema, Due To Plants [except Food] 09/18/2009 DOUGLAS LEAL MD 692.6 Contact Dermatitis And Other Eczema, Due To Plants [except Food] 09/18/2009 BENI LYNCH, AREN B 69 2.6 Contact Dermatitis And Other Eczema, Due To Plants [except Food] 09/18/2009 RANJAN FRAGOSO, NENO S 692.6 Contact Dermatitis And Other Eczema, Due To Plants [ex cept Food] 09/18/2009 KAREN GUTIERREZ PHD 692.6 Contact Dermatitis And Other Eczema, Due To Plants [ex cept Food] 09/18/2009 KAREN GUTIERREZ PHD 692.6 Contact Dermatitis And Other Eczema, Due To Plants [ex cept Food] 09/18/2009 NENO WOODRUFF APRN S 692.6 Contact Dermatitis And Other Eczema, Due To Plants [ex cept Food] 09/18/2009 NENO WOODRUFF APRN S 692.6 Contact Dermatitis And Other Eczema, Due To Plants [ex cept Food] 09/18/2009 ROBERTO YATES APRN N 692.6 Contact Dermatitis And Other Eczema, Due To Plants [except Food] 09/18/2009 NENO WOODRUFF APRN S 692.6 Contact Dermatitis And Other Eczema, Due To Plants [ex cept Food] 09/18/2009 KAREN GUTIERREZ PHD 692.6 Contact Dermatitis And Other Eczema, Due To Plants [ex cept Food] 09/18/2009 PRIETO FONSECA APRN R 692.6 Contact Dermatitis And Other Eczema, Due To Plants [ex cept Food] 09/18/2009 DOUGLAS LEAL MD 692.6 Contact Dermatitis And Other Eczema, Due To Plants [except Food] 09/18/2009 KAREN GUTIERREZ PHD 692.6 Contact Dermatitis And Other Eczema, Due To Plants [ex cept Food] 09/18/2009 LAURIE VILLAREAL APRN 692 .6 Contact Dermatitis And Other Eczema, Due To Plants [except Food] 09/18/2009 NENO WOODRUFF APRN S 692.6 Contact Dermatitis And Other Eczema, Due To Plants [ex cept Food] 09/18/2009 DIONNA INSPECTOR PACKAGER, LAURIE 692 .6 Contact Dermatitis And Other Eczema, Due To Plants [except Food] 09/18/2009 DIONNA INSPECTOR PACKAGER, LAURIE 692 .6 Contact Dermatitis And Other Eczema, Due To Plants [except Food] 09/18/2009 DIONNA INSPECTOR PACKAGER, LAURIE 692 .6 Contact Dermatitis And Other Eczema, Due To Plants [except Food] 09/18/2009 OMAR ADORNO APRN 69 2.6 Contact Dermatitis And Other Eczema, Due To Plants [except Food] 09/18/2009 RAMZE VILLAREAL APRNETTE 692 .6 Contact Dermatitis And Other Eczema, Due To Plants [except Food] 09/18/2009 WHITE DDS, KAITLIN J 69 2.6 Contact Dermatitis And Other Eczema, Due To Plants [except Food] 09/18/2009 ESPINOZA DDS, JULI 69 2.6 Contact Dermatitis And Other Eczema, Due To Plants [except Food] 09/18/2009 ESPINOZA DDS, JULI 69 2.6 Contact Dermatitis And Other Eczema, Due To Plants [except Food] 09/18/2009 LAURIE VILLAREAL APRN 692 .6 Contact Dermatitis And Other Eczema, Due To Plants [except Food] 09/18/2009 YOUNG DO, BEAR K 692.6 Contact Dermatitis And Other Eczema, Due To Plants [except Food] 09/18/2009 ENOCH FONSECA APRNINA R 692.6 Contact Dermatitis And Other Eczema, Due To Plants [ex cept Food] 09/18/2009 RAMEZ VILLAREAL APRNETTE 692 .6 Contact Dermatitis And Other Eczema, Due To Plants [except Food] 09/18/2009 MARIAN FRAGOSO PRIETO R 692.6 Contact Dermatitis And Other Eczema, Due To Plants [ex cept Food] 09/18/2009 MARIAN FRAGOSO PRIETO R 692.6 Contact Dermatitis And Other Eczema, Due To Plants [ex cept Food] 09/18/2009 DOUGLAS LELA MD 692.6 Contact Dermatitis And Other Eczema, Due To Plants [except Food] 09/18/2009 YOUNG DO, BEAR K 692.6 Contact Dermatitis And Other Eczema, Due To Plants [except Food] 10/04/2009 Ot 924.11 10/04/2009 Ot 959.7 10/04/2009 Ot E000.8 10/04/2009 Ot E030 10/04/2009 Ot E849.0 10/04/2009 Ot E880.9 12/01/2009 Ot 724.1 12/01/2009 Ot 786.2 12/01/2009 Ot 786.50 02/26/2010 Ot 724.3 02/26/2010 Ot V57.1 03/25/2010 HANNAH COFFMAN BEAR K 354.0 Carpal Tunnel Syndrome 03/25/2010 HANNAH COFFMAN BEAR K 727.41 Ganglion Of Joint 03/25/2010 YOUNG DO, BEAR K 782.62 Flushing 03/25/2010 354.0 Carp al Tunnel Syndrome 03/25/2010 727.41 Arthur glion Of Joint 03/25/2010 782.62 Flu shing 03/25/2010 354.0 Carp al Tunnel Syndrome 03/25/2010 727.41 Arthur glion Of Joint 03/25/2010 782.62 Flu shing 03/25/2010 HANNAH COFFMAN BEAR K 354.0 Carpal Tunnel Syndrome 03/25/2010 HANNAH COFFMAN BEAR K 727.41 Ganglion Of Joint 03/25/2010 YOUNG , BEAR K 782.62 Flushing 03/25/2010 JOSE INSPECTOR PACKAGER, PAU R 354.0 Carpal Tunnel Syndrome 03/25/2010 JOSE INSPECTOR PACKAGER, PAU R 727.41 Ganglion Of Joint 03/25/2010 JOSE INSPECTOR PACKAGER, PAU R 782.62 Flushing 03/25/2010 354.0 Carp al Tunnel Syndrome 03/25/2010 727.41 Arthur glion Of Joint 03/25/2010 782.62 Flu shing 03/25/2010 354.0 Carp al Tunnel Syndrome 03/25/2010 727.41 Arthur glion Of Joint 03/25/2010 782.62 Flu shing 03/25/2010 354.0 Carp al Tunnel Syndrome 03/25/2010 727.41 Arthur glion Of Joint 03/25/2010 782.62 Flu shing 03/25/2010 354.0 Carp al Tunnel Syndrome 03/25/2010 727.41 Arthur glion Of Joint 03/25/2010 782.62 Flu shing 03/25/2010 354.0 Carp al Tunnel Syndrome 03/25/2010 727.41 Arthur glion Of Joint 03/25/2010 782.62 Flu shing 03/25/2010 354.0 Carp al Tunnel Syndrome 03/25/2010 727.41 Arthur glion Of Joint 03/25/2010 782.62 Flu shing 03/25/2010 354.0 Carp al Tunnel Syndrome 03/25/2010 727.41 Arthur glion Of Joint 03/25/2010 782.62 Flu shing 03/25/2010 354.0 Carp al Tunnel Syndrome 03/25/2010 727.41 Arthur glion Of Joint 03/25/2010 782.62 Flu shing 03/25/2010 354.0 Carp al Tunnel Syndrome 03/25/2010 727.41 Arthur glion Of Joint 03/25/2010 782.62 Flu shing 03/25/2010 354.0 Carp al Tunnel Syndrome 03/25/2010 727.41 Arthur glion Of Joint 03/25/2010 782.62 Flu shing 03/25/2010 KATIE WOODRUFF APRNNDA S 354.0 Carpal Tunnel Syndrome 03/25/2010 YUKI WOODRUFF APRNA S 727.41 Ganglion Of Joint 03/25/2010 RANJAN FRAGOSO NENO S 782.62 Flushing 03/25/2010 DOUGLAS LEAL MD 354.0 Carpal Tunnel Syndrome 03/25/2010 DOUGLAS LEAL MD 727.4 1 Ganglion Of Joint 03/25/2010 DOUGLAS LEAL MD 782.6 2 Flushing 03/25/2010 OMAR ADORNO APRN T 35 4.0 Carpal Tunnel Syndrome 03/25/2010 OMAR ADORNO APRN T 727.41 Ganglion Of Joint 03/25/2010 OMAR ADORNO APRN T 782.62 Flushing 03/25/2010 KATIE WOODRUFF APRNNDA S 354.0 Carpal Tunnel Syndrome 03/25/2010 RANJAN FRAGOSO NENO S 727.41 Ganglion Of Joint 03/25/2010 RANJAN FRAGOSO NENO S 782.62 Flushing 03/25/2010 OMAR ADORNO APRN T 35 4.0 Carpal Tunnel Syndrome 03/25/2010 OMAR ADORNO APRN T 727.41 Ganglion Of Joint 03/25/2010 OMAR ADORNO APRN T 782.62 Flushing 03/25/2010 DOUGLAS LEAL MD 354.0 Carpal Tunnel Syndrome 03/25/2010 DOUGLAS LEAL MD 727.4 1 Ganglion Of Joint 03/25/2010 DOUGLAS LEAL MD 782.6 2 Flushing 03/25/2010 BENI LYNCH, AREN B 35 4.0 Carpal Tunnel Syndrome 03/25/2010 BENI INSULATION NOZZLEMAN, AREN B 727.41 Ganglion Of Joint 03/25/2010 BENI INSULATION NOZZLEMAN, AREN B 782.62 Flushing 03/25/2010 RANJAN INSPECTOR PACKAGER, NENO S 354.0 Carpal Tunnel Syndrome 03/25/2010 RANJAN INSPECTOR PACKAGER, NENO S 727.41 Ganglion Of Joint 03/25/2010 RANJAN MURILLON, NENO S 782.62 Flushing 03/25/2010 KAREN GUTIERREZ PHD 354.0 Carpal Tunnel Syndrome 03/25/2010 BRENDA PABLO, KAREN Quinn 727.41 Ganglion Of Joint 03/25/2010 BRENDA PABLO, KAREN Quinn 782.62 Flushing 03/25/2010 BRENDA PABLO, KAREN Quinn 354.0 Carpal Tunnel Syndrome 03/25/2010 BRENDA PABLO, KAREN Quinn 727.41 Ganglion Of Joint 03/25/2010 BRENDA PABLO, KAREN Quinn 782.62 Flushing 03/25/2010 RANJAN MURILLON, NENO S 354.0 Carpal Tunnel Syndrome 03/25/2010 RANJAN INSPECTOR PACKAGER, NENO S 727.41 Ganglion Of Joint 03/25/2010 RANJAN INSPECTOR PACKAGER, NENO S 782.62 Flushing 03/25/2010 RANJAN INSPECTOR PACKAGER, NENO S 354.0 Carpal Tunnel Syndrome 03/25/2010 RANJAN INSPECTOR PACKAGER, NENO S 727.41 Ganglion Of Joint 03/25/2010 RANJAN INSPECTOR PACKAGER, NENO S 782.62 Flushing 03/25/2010 MALIKA GUILLEN INSPECTOR PACKAGER ROBERTO N 354.0 Carpal Tunnel Syndrome 03/25/2010 DALY CASHERO INSPECTOR PACKAGER, ROBERTO N 727.41 Ganglion Of Joint 03/25/2010 DALY CASHERO INSPECTOR PACKAGER, ROBERTO N 782.62 Flushing 03/25/2010 RANJAN INSPECTOR PACKAGER, NENO S 354.0 Carpal Tunnel Syndrome 03/25/2010 RANJAN INSPECTOR PACKAGER, NENO S 727.41 Ganglion Of Joint 03/25/2010 RANJAN INSPECTOR PACKAGER, NENO S 782.62 Flushing 03/25/2010 KAREN GUTIERREZ PHD 354.0 Carpal Tunnel Syndrome 03/25/2010 KAREN GUTIERREZ PHD 727.41 Ganglion Of Joint 03/25/2010 KAREN GUTIERREZ PHD 782.62 Flushing 03/25/2010 MARIAN INSPECTOR PACKAGER, PRIETO R 354.0 Carpal Tunnel Syndrome 03/25/2010 MARIAN INSPECTOR PACKAGER, PRIETO R 727.41 Ganglion Of Joint 03/25/2010 MARIAN INSPECTOR PACKAGER, PRIETO R 782.62 Flushing 03/25/2010 DOUGLAS LEAL MD 354.0 Carpal Tunnel Syndrome 03/25/2010 DOUGLAS LEAL MD 727.4 1 Ganglion Of Joint 03/25/2010 DOUGLAS LEAL MD 782.6 2 Flushing 03/25/2010 KAREN GUTIERREZ PHD 354.0 Carpal Tunnel Syndrome 03/25/2010 KAREN GUTIERREZ PHD 727.41 Ganglion Of Joint 03/25/2010 KAREN GUTIERREZ PHD 782.62 Flushing 03/25/2010 DIONNA INSPECTOR PACKAGER, LAURIE 354 .0 Carpal Tunnel Syndrome 03/25/2010 DIONNA INSPECTOR PACKAGER, LAURIE 727 .41 Ganglion Of Joint 03/25/2010 DIONNA INSPECTOR PACKAGER, LAURIE 782 .62 Flushing 03/25/2010 RANJAN INSPECTOR PACKAGER, NENO S 354.0 Carpal Tunnel Syndrome 03/25/2010 RANJAN INSPECTOR PACKAGER, NENO S 727.41 Ganglion Of Joint 03/25/2010 RANJAN INSPECTOR PACKAGER, NENO S 782.62 Flushing 03/25/2010 DIONNA INSPECTOR PACKAGER, LAURIE 354 .0 Carpal Tunnel Syndrome 03/25/2010 DIONNA INSPECTOR PACKAGER, LAURIE 727 .41 Ganglion Of Joint 03/25/2010 DIONNA INSPECTOR PACKAGER, LAURIE 782 .62 Flushing 03/25/2010 DIONNA INSPECTOR PACKAGER, LAURIE 354 .0 Carpal Tunnel Syndrome 03/25/2010 DIONNA INSPECTOR PACKAGER, LAURIE 727 .41 Ganglion Of Joint 03/25/2010 DIONNA INSPECTOR PACKAGER, LAURIE 782 .62 Flushing 03/25/2010 DIONNA INSPECTOR PACKAGER, LAURIE 354 .0 Carpal Tunnel Syndrome 03/25/2010 DIONNA INSPECTOR PACKAGER, LAURIE 727 .41 Ganglion Of Joint 03/25/2010 DIONNA INSPECTOR PACKAGER, LAURIE 782 .62 Flushing 03/25/2010 OMAR ADORNO APRN T 35 4.0 Carpal Tunnel Syndrome 03/25/2010 TILA INSPECTOR PACKAGEROMAR 727.41 Ganglion Of Joint 03/25/2010 OMAR ADORNO APRN T 782.62 Flushing 03/25/2010 DIONNA INSPECTOR PACKAGER, LAURIE 354 .0 Carpal Tunnel Syndrome 03/25/2010 DIONNA INSPECTOR PACKAGER, LAURIE 727 .41 Ganglion Of Joint 03/25/2010 DIONNA INSPECTOR PACKAGER, LAURIE 782 .62 Flushing 03/25/2010 ROSHAN DDS, KAITLIN J 35 4.0 Carpal Tunnel Syndrome 03/25/2010 WHITE DDS, KAITLIN J 727.41 Ganglion Of Joint 03/25/2010 ROSHAN DDS, KAITLIN J 782.62 Flushing 03/25/2010 ESPINOZA DDS, JULI 35 4.0 Carpal Tunnel Syndrome 03/25/2010 ESPINOZA DDS, JULI 727.41 Ganglion Of Joint 03/25/2010 ESPINOZA DDS, JULI 782.62 Flushing 03/25/2010 ESPINOZA DDS, JULI 35 4.0 Carpal Tunnel Syndrome 03/25/2010 ESPINOZA DDS, JULI 727.41 Ganglion Of Joint 03/25/2010 ESPINOZA DDS, JULI 782.62 Flushing 03/25/2010 DIONNA INSPECTOR PACKAGER, LAURIE 354 .0 Carpal Tunnel Syndrome 03/25/2010 DIONNA INSPECTOR PACKAGER, LAURIE 727 .41 Ganglion Of Joint 03/25/2010 DIONNA INSPECTOR PACKAGER, LAURIE 782 .62 Flushing 03/25/2010 YOUNG DO, BEAR K 354.0 Carpal Tunnel Syndrome 03/25/2010 YOUNG DO, BEAR K 727.41 Ganglion Of Joint 03/25/2010 YOUNG DO, BEAR K 782.62 Flushing 03/25/2010 MARIAN INSPECTOR PACKAGER, PRIETO R 354.0 Carpal Tunnel Syndrome 03/25/2010 MARIAN INSPECTOR PACKAGER, PRIETO R 727.41 Ganglion Of Joint 03/25/2010 MARIAN INSPECTOR PACKAGER, PRIETO R 782.62 Flushing 03/25/2010 DIONNA INSPECTOR PACKAGER, LAURIE 354 .0 Carpal Tunnel Syndrome 03/25/2010 DIONNA INSPECTOR PACKAGER, LAURIE 727 .41 Ganglion Of Joint 03/25/2010 DIONNA INSPECTOR PACKAGER, LAURIE 782 .62 Flushing 03/25/2010 MARIAN INSPECTOR PACKAGER, PRIETO R 354.0 Carpal Tunnel Syndrome 03/25/2010 MARIAN INSPECTOR PACKAGER, PRIETO R 727.41 Ganglion Of Joint 03/25/2010 MARIAN INSPECTOR PACKAGER, PRIETO R 782.62 Flushing 03/25/2010 MARIAN INSPECTOR PACKAGER, PRIETO R 354.0 Carpal Tunnel Syndrome 03/25/2010 MARIAN INSPECTOR PACKAGER, PRIETO R 727.41 Ganglion Of Joint 03/25/2010 MARIAN INSPECTOR PACKAGER, PRIETO R 782.62 Flushing 03/25/2010 DOUGLAS LEAL MD 354.0 Carpal Tunnel Syndrome 03/25/2010 DOUGLAS LEAL MD 727.4 1 Ganglion Of Joint 03/25/2010 DOUGLAS LEAL MD 782.6 2 Flushing 03/25/2010 BEAR YOUNG DO K 354.0 Carpal Tunnel Syndrome 03/25/2010 BEAR YOUNG DO K 727.41 Ganglion Of Joint 03/25/2010 KENDY YOUNG DOA K 782.62 Flushing 03/30/2010 Ot 729.5 04/16/2010 BEAR YOUNG DO K 305.1 Nondependent Tobacco Use Disorder 04/16/2010 BEAR YOUNG DO K 465.9 Acute Upper Respiratory Infections Of Unspecified Site 04/16/2010 305.1 Nond ependent Tobacco Use Disorder 04/16/2010 465.9 Acut e Upper Respiratory Infections Of Unspecified Site 04/16/2010 305.1 Nond ependent Tobacco Use Disorder 04/16/2010 465.9 Acut e Upper Respiratory Infections Of Unspecified Site 04/16/2010 BEAR YOUNG DO K 305.1 Nondependent Tobacco Use Disorder 04/16/2010 BEAR YOUNG DO K 465.9 Acute Upper Respiratory Infections Of Unspecified Site 04/16/2010 PAU GARCIA APRN R 305.1 Nondependent Tobacco Use Disorder 04/16/2010 PAU GARCIA APRN 465.9 Acute Upper Respiratory Infections Of Unspecified Site 04/16/2010 305.1 Nond ependent Tobacco Use Disorder 04/16/2010 465.9 Acut e Upper Respiratory Infections Of Unspecified Site 04/16/2010 305.1 Nond ependent Tobacco Use Disorder 04/16/2010 465.9 Acut e Upper Respiratory Infections Of Unspecified Site 04/16/2010 305.1 Nond ependent Tobacco Use Disorder 04/16/2010 465.9 Acut e Upper Respiratory Infections Of Unspecified Site 04/16/2010 305.1 Nond ependent Tobacco Use Disorder 04/16/2010 465.9 Acut e Upper Respiratory Infections Of Unspecified Site 04/16/2010 305.1 Nond ependent Tobacco Use Disorder 04/16/2010 465.9 Acut e Upper Respiratory Infections Of Unspecified Site 04/16/2010 305.1 Nond ependent Tobacco Use Disorder 04/16/2010 465.9 Acut e Upper Respiratory Infections Of Unspecified Site 04/16/2010 305.1 Nond ependent Tobacco Use Disorder 04/16/2010 465.9 Acut e Upper Respiratory Infections Of Unspecified Site 04/16/2010 305.1 Nond ependent Tobacco Use Disorder 04/16/2010 465.9 Acut e Upper Respiratory Infections Of Unspecified Site 04/16/2010 305.1 Nond ependent Tobacco Use Disorder 04/16/2010 465.9 Acut e Upper Respiratory Infections Of Unspecified Site 04/16/2010 305.1 Nond ependent Tobacco Use Disorder 04/16/2010 465.9 Acut e Upper Respiratory Infections Of Unspecified Site 04/16/2010 NENO WOODRUFF APRN S 305.1 Nondependent Tobacco Use Disorder 04/16/2010 NENO WOODRUFF APRN S 465.9 Acute Upper Respiratory Infections Of Unspecified Site 04/16/2010 DOUGLAS LEAL MD 305.1 Nondependent Tobacco Use Disorder 04/16/2010 DOUGLAS LEAL MD 465.9 Acute Upper Respiratory Infections Of Unspecified Site 04/16/2010 OMAR ADORNO APRN 30 5.1 Nondependent Tobacco Use Disorder 04/16/2010 OMAR ADORNO APRN 46 5.9 Acute Upper Respiratory Infections Of Unspecified Site 04/16/2010 NENO WOODRUFF APRN S 305.1 Nondependent Tobacco Use Disorder 04/16/2010 RANJAN INSPECTOR PACKAGER, NENO S 465.9 Acute Upper Respiratory Infections Of Unspecified Site 04/16/2010 TILA FRAGOSO OMAR T 30 5.1 Nondependent Tobacco Use Disorder 04/16/2010 OMAR ADORNO APRN T 46 5.9 Acute Upper Respiratory Infections Of Unspecified Site 04/16/2010 DOUGLAS LEAL MD 305.1 Nondependent Tobacco Use Disorder 04/16/2010 DOUGLAS LEAL MD 465.9 Acute Upper Respiratory Infections Of Unspecified Site 04/16/2010 BENI INSULATION NOZZLEMAN, AREN B 30 5.1 Nondependent Tobacco Use Disorder 04/16/2010 BENI INSULATION NOZZLEMAN, AREN B 46 5.9 Acute Upper Respiratory Infections Of Unspecified Site 04/16/2010 RANJAN FRAGOSO NENO S 305.1 Nondependent Tobacco Use Disorder 04/16/2010 RANJAN FRAGOSO NENO S 465.9 Acute Upper Respiratory Infections Of Unspecified Site 04/16/2010 BRENDA PABLO, KAREN Quinn 305.1 Nondependent Tobacco Use Disorder 04/16/2010 KAREN GUTIERREZ PHD 465.9 Acute Upper Respiratory Infections Of Unspecified Site 04/16/2010 BRENDA PABLO, KAREN Quinn 305.1 Nondependent Tobacco Use Disorder 04/16/2010 BRENDA PABLO, KAREN Quinn 465.9 Acute Upper Respiratory Infections Of Unspecified Site 04/16/2010 RANJAN FRAGOSO NENO S 305.1 Nondependent Tobacco Use Disorder 04/16/2010 RANJAN FRAGOSO NENO S 465.9 Acute Upper Respiratory Infections Of Unspecified Site 04/16/2010 KATIE WOODRUFF APRNNDA S 305.1 Nondependent Tobacco Use Disorder 04/16/2010 RANJAN FRAGOSO NENO S 465.9 Acute Upper Respiratory Infections Of Unspecified Site 04/16/2010 DALY CASHERO INSPECTOR PACKAGER, ROBERTO N 305.1 Nondependent Tobacco Use Disorder 04/16/2010 DALY CASHERO INSPECTOR PACKAGER, ROBERTO N 465.9 Acute Upper Respiratory Infections Of Unspecified Site 04/16/2010 RANJAN FRAGOSO NENO S 305.1 Nondependent Tobacco Use Disorder 04/16/2010 RANJAN FRAGOSO NENO S 465.9 Acute Upper Respiratory Infections Of Unspecified Site 04/16/2010 BRENDA PABLO, KAREN Quinn 305.1 Nondependent Tobacco Use Disorder 04/16/2010 KAREN GUTIERREZ PHD 465.9 Acute Upper Respiratory Infections Of Unspecified Site 04/16/2010 MARIAN INSPECTOR PACKAGER, PRIETO R 305.1 Nondependent Tobacco Use Disorder 04/16/2010 MARIAN FRAGOSO, PRIETO R 465.9 Acute Upper Respiratory Infections Of Unspecified Site 04/16/2010 DOUGLAS LEAL MD 305.1 Nondependent Tobacco Use Disorder 04/16/2010 DOUGLAS LEAL MD 465.9 Acute Upper Respiratory Infections Of Unspecified Site 04/16/2010 KAREN GUITERREZ PHD 305.1 Nondependent Tobacco Use Disorder 04/16/2010 KAREN GUTIERREZ PHD 465.9 Acute Upper Respiratory Infections Of Unspecified Site 04/16/2010 DIONNA FRAGOSO LAURIE 305 .1 Nondependent Tobacco Use Disorder 04/16/2010 DIONNA FRAGOSO LAURIE 465 .9 Acute Upper Respiratory Infections Of Unspecified Site 04/16/2010 RANJAN FRAGOSO NENO S 305.1 Nondependent Tobacco Use Disorder 04/16/2010 RANJAN FRAGOSO NENO S 465.9 Acute Upper Respiratory Infections Of Unspecified Site 04/16/2010 DIONNA FRAGOSO LAURIE 305 .1 Nondependent Tobacco Use Disorder 04/16/2010 DIONNA FRAGOSO, LAURIE 465 .9 Acute Upper Respiratory Infections Of Unspecified Site 04/16/2010 DIONNA FRAGOSO LAURIE 305 .1 Nondependent Tobacco Use Disorder 04/16/2010 DIONNA FRAGOSO LAURIE 465 .9 Acute Upper Respiratory Infections Of Unspecified Site 04/16/2010 DIONNA FRAGOSO LAURIE 305 .1 Nondependent Tobacco Use Disorder 04/16/2010 DIONNA FRAGOSO LAURIE 465 .9 Acute Upper Respiratory Infections Of Unspecified Site 04/16/2010 OMAR ADORNO APRN T 30 5.1 Nondependent Tobacco Use Disorder 04/16/2010 OMAR ADORNO APRN T 46 5.9 Acute Upper Respiratory Infections Of Unspecified Site 04/16/2010 DIONNA FRAGOSO LAURIE 305 .1 Nondependent Tobacco Use Disorder 04/16/2010 DIONNA FRAGOSO LAURIE 465 .9 Acute Upper Respiratory Infections Of Unspecified Site 04/16/2010 KAITLIN ISLAS DDS J 30 5.1 Nondependent Tobacco Use Disorder 04/16/2010 WHITE DDS, KAITLIN J 46 5.9 Acute Upper Respiratory Infections Of Unspecified Site 04/16/2010 ESPINOZA DDS, JULI 30 5.1 Nondependent Tobacco Use Disorder 04/16/2010 ESPINOZA DDS, JULI 46 5.9 Acute Upper Respiratory Infections Of Unspecified Site 04/16/2010 ESPINOZA DDS, JULI 30 5.1 Nondependent Tobacco Use Disorder 04/16/2010 ESPINOZA DDS, JULI 46 5.9 Acute Upper Respiratory Infections Of Unspecified Site 04/16/2010 DIONNA INSPECTOR PACKAGER, LAURIE 305 .1 Nondependent Tobacco Use Disorder 04/16/2010 DIONNA MURILLON LAURIE 465 .9 Acute Upper Respiratory Infections Of Unspecified Site 04/16/2010 BEAR YOUNG DO K 305.1 Nondependent Tobacco Use Disorder 04/16/2010 BEAR YOUNG DO K 465.9 Acute Upper Respiratory Infections Of Unspecified Site 04/16/2010 ENOCH FONSECA APRNINA R 305.1 Nondependent Tobacco Use Disorder 04/16/2010 MARIAN FRAGOSO PRIETO R 465.9 Acute Upper Respiratory Infections Of Unspecified Site 04/16/2010 DIONNA FRAGOSO LAURIE 305 .1 Nondependent Tobacco Use Disorder 04/16/2010 DIONNA FRAGOSO LAURIE 465 .9 Acute Upper Respiratory Infections Of Unspecified Site 04/16/2010 MARIAN FRAGOSO PRIETO R 305.1 Nondependent Tobacco Use Disorder 04/16/2010 MARIAN FRAGOSO PRIETO R 465.9 Acute Upper Respiratory Infections Of Unspecified Site 04/16/2010 MARIAN FRAGOSO PRIETO R 305.1 Nondependent Tobacco Use Disorder 04/16/2010 MARIAN FRAGOSO PRIETO R 465.9 Acute Upper Respiratory Infections Of Unspecified Site 04/16/2010 DOUGLAS LEAL MD 305.1 Nondependent Tobacco Use Disorder 04/16/2010 DOUGLAS LEAL MD 465.9 Acute Upper Respiratory Infections Of Unspecified Site 04/16/2010 BEAR YOUNG DO 305.1 Nondependent Tobacco Use Disorder 04/16/2010 BEAR YOUNG DO K 465.9 Acute Upper Respiratory Infections Of Unspecified Site 04/21/2010 Ot 882.0 04/21/2010 Ot E000.8 04/21/2010 Ot E849.0 04/21/2010 Ot E920.8 05/14/2010 Ot 682.6 06/11/2010 Ot 891.0 06/11/2010 Ot E000.8 06/11/2010 Ot E849.0 06/11/2010 Ot E888.1 06/18/2010 BEAR YOUNG DO 959.7 Other And Unspecified Injury To Knee Leg Ankle And Foot 06/18/2010 959.7 Othe r And Unspecified Injury To Knee Leg Ankle And Foot 06/18/2010 959.7 Othe r And Unspecified Injury To Knee Leg Ankle And Foot 06/18/2010 BEAR YOUNG DO 959.7 Other And Unspecified Injury To Knee Leg Ankle And Foot 06/18/2010 PAU GARCIA APRN 959.7 Other And Unspecified Injury To Knee Leg Ankle And Kika t 06/18/2010 959.7 Othe r And Unspecified Injury To Knee Leg Ankle And Foot 06/18/2010 959.7 Othe r And Unspecified Injury To Knee Leg Ankle And Foot 06/18/2010 959.7 Othe r And Unspecified Injury To Knee Leg Ankle And Foot 06/18/2010 959.7 Othe r And Unspecified Injury To Knee Leg Ankle And Foot 06/18/2010 959.7 Othe r And Unspecified Injury To Knee Leg Ankle And Foot 06/18/2010 959.7 Othe r And Unspecified Injury To Knee Leg Ankle And Foot 06/18/2010 959.7 Othe r And Unspecified Injury To Knee Leg Ankle And Foot 06/18/2010 959.7 Othe r And Unspecified Injury To Knee Leg Ankle And Foot 06/18/2010 959.7 Othe r And Unspecified Injury To Knee Leg Ankle And Foot 06/18/2010 959.7 Othe r And Unspecified Injury To Knee Leg Ankle And Foot 06/18/2010 NENO WOODRUFF APRN 959.7 Other And Unspecified Injury To Knee Leg Ankle And Kika t 06/18/2010 DOUGLAS LEAL MD 959.7 Other And Unspecified Injury To Knee Leg Ankle And Foot 06/18/2010 OMAR ADORNO APRN 95 9.7 Other And Unspecified Injury To Knee Leg Ankle And Foot 06/18/2010 NENO WOODRUFF APRN 959.7 Other And Unspecified Injury To Knee Leg Ankle And Kika t 06/18/2010 TILA INSPECTOR PACKAGER, OMAR T 95 9.7 Other And Unspecified Injury To Knee Leg Ankle And Foot 06/18/2010 DOUGLAS LEAL MD 959.7 Other And Unspecified Injury To Knee Leg Ankle And Foot 06/18/2010 BENI LYNCH, AREN B 95 9.7 Other And Unspecified Injury To Knee Leg Ankle And Foot 06/18/2010 RANJAN MURILLON, NENO S 959.7 Other And Unspecified Injury To Knee Leg Ankle And Kika t 06/18/2010 BRENDA PABLO, KAREN Quinn 959.7 Other And Unspecified Injury To Knee Leg Ankle And Kika t 06/18/2010 BRENDA PABLO, KAREN Quinn 959.7 Other And Unspecified Injury To Knee Leg Ankle And Kika t 06/18/2010 RANJAN MURILLON, NENO S 959.7 Other And Unspecified Injury To Knee Leg Ankle And Kika t 06/18/2010 RANJAN MURILLON, NENO S 959.7 Other And Unspecified Injury To Knee Leg Ankle And Kika t 06/18/2010 MALIKA GUILLEN INSPECTOR PACKAGER, ROBERTO N 959.7 Other And Unspecified Injury To Knee Leg Ankle And Kika t 06/18/2010 RANJAN MURILLON, NENO S 959.7 Other And Unspecified Injury To Knee Leg Ankle And Kika t 06/18/2010 BRENDA PABLO, KAREN Quinn 959.7 Other And Unspecified Injury To Knee Leg Ankle And Kika t 06/18/2010 MARIAN INSPECTOR PACKAGER, PRIETO R 959.7 Other And Unspecified Injury To Knee Leg Ankle And Kika t 06/18/2010 DOUGLAS LEAL MD 959.7 Other And Unspecified Injury To Knee Leg Ankle And Foot 06/18/2010 BRENDA PABLO, KAREN Quinn 959.7 Other And Unspecified Injury To Knee Leg Ankle And Kika t 06/18/2010 LAURIE VILLAREAL APRN 959 .7 Other And Unspecified Injury To Knee Leg Ankle And Foot 06/18/2010 NENO WOODRUFF APRN S 959.7 Other And Unspecified Injury To Knee Leg Ankle And Kika t 06/18/2010 LAURIE VILLAREAL APRN 959 .7 Other And Unspecified Injury To Knee Leg Ankle And Foot 06/18/2010 DIONNA INSPECTOR PACKAGER, LAURIE 959 .7 Other And Unspecified Injury To Knee Leg Ankle And Foot 06/18/2010 DIONNA INSPECTOR PACKAGER, LAURIE 959 .7 Other And Unspecified Injury To Knee Leg Ankle And Foot 06/18/2010 TILA INSPECTOR PACKAGER OMAR T 95 9.7 Other And Unspecified Injury To Knee Leg Ankle And Foot 06/18/2010 DIONNA INSPECTOR PACKAGER, LAURIE 959 .7 Other And Unspecified Injury To Knee Leg Ankle And Foot 06/18/2010 WHITE DDS, KAITLIN J 95 9.7 Other And Unspecified Injury To Knee Leg Ankle And Foot 06/18/2010 ESPINOZA DDS, JULI 95 9.7 Other And Unspecified Injury To Knee Leg Ankle And Foot 06/18/2010 ESPINOZA DDS, JULI 95 9.7 Other And Unspecified Injury To Knee Leg Ankle And Foot 06/18/2010 DIONNA INSPECTOR PACKAGER, LAURIE 959 .7 Other And Unspecified Injury To Knee Leg Ankle And Foot 06/18/2010 BEAR YOUNG DO 959.7 Other And Unspecified Injury To Knee Leg Ankle And Foot 06/18/2010 MARIAN INSPECTOR PACKAGER, PRIETO R 959.7 Other And Unspecified Injury To Knee Leg Ankle And Kika t 06/18/2010 DIONNA INSPECTOR PACKAGER, LAURIE 959 .7 Other And Unspecified Injury To Knee Leg Ankle And Foot 06/18/2010 MARIAN INSPECTOR PACKAGER, PRIETO R 959.7 Other And Unspecified Injury To Knee Leg Ankle And Kika t 06/18/2010 MARIAN MURILLON, PRIETO R 959.7 Other And Unspecified Injury To Knee Leg Ankle And Kika t 06/18/2010 DOUGLAS LEAL MD 959.7 Other And Unspecified Injury To Knee Leg Ankle And Foot 06/18/2010 BEAR YOUNG DO 959.7 Other And Unspecified Injury To Knee Leg Ankle And Foot 08/11/2010 BEAR YOUNG DO 300.4 DYSTHYMIC DISORDER 08/11/2010 BEAR YOUNG DO 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 08/11/2010 BEAR YOUNG DO 401.9 UNSPECIFIED ESSENTIAL HYPERTENSION 08/11/2010 BEAR YOUNG DO 788.1 Dysuria 08/11/2010 YOUNG DO, BEAR K V17.49 FAM HX ASCVD (DISEASE) 08/11/2010 YOUNG BEAR COFFMAN K V18.0 FAM HX DIABETES MELLITUS 08/11/2010 300.4 DYST HYMIC DISORDER 08/11/2010 307.42 Per sistent Disorder Of Initiating Or Maintaining Sleep 08/11/2010 401.9 UNSP ECIFIED ESSENTIAL HYPERTENSION 08/11/2010 788.1 Dysuria 08/11/2010 V17.49 FAM HX ASCVD (DISEASE) 08/11/2010 V18.0 FAM HX DIABETES MELLITUS 08/11/2010 300.4 DYST HYMIC DISORDER 08/11/2010 307.42 Per sistent Disorder Of Initiating Or Maintaining Sleep 08/11/2010 401.9 UNSP ECIFIED ESSENTIAL HYPERTENSION 08/11/2010 788.1 Dysuria 08/11/2010 V17.49 FAM HX ASCVD (DISEASE) 08/11/2010 V18.0 FAM HX DIABETES MELLITUS 08/11/2010 YOUNG BEAR COFFMAN K 300.4 DYSTHYMIC DISORDER 08/11/2010 YOUNG BEAR COFFMAN K 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 08/11/2010 BEAR YOUNG DO K 401.9 UNSPECIFIED ESSENTIAL HYPERTENSION 08/11/2010 BEAR YOUNG DO K 788.1 Dysuria 08/11/2010 YOUNG BEAR CFOFMAN V17.49 FAM HX ASCVD (DISEASE) 08/11/2010 YOUNG BEAR COFFMAN K V18.0 FAM HX DIABETES MELLITUS 08/11/2010 PAU GARCIA APRN R 300.4 DYSTHYMIC DISORDER 08/11/2010 PAU GARCIA APRN R 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 08/11/2010 PAU GARCIA APRN R 401.9 UNSPECIFIED ESSENTIAL HYPERTENSION 08/11/2010 PAU GARCIA APRN R 788.1 Dysuria 08/11/2010 KIRAN GARCIA APRNIA R V17.49 FAM HX ASCVD (DISEASE) 08/11/2010 KIRAN GARCIA APRNIA R V18.0 FAM HX DIABETES MELLITUS 08/11/2010 300.4 DYST HYMIC DISORDER 08/11/2010 307.42 Per sistent Disorder Of Initiating Or Maintaining Sleep 08/11/2010 401.9 UNSP ECIFIED ESSENTIAL HYPERTENSION 08/11/2010 788.1 Dysuria 08/11/2010 V17.49 FAM HX ASCVD (DISEASE) 08/11/2010 V18.0 FAM HX DIABETES MELLITUS 08/11/2010 300.4 DYST HYMIC DISORDER 08/11/2010 307.42 Per sistent Disorder Of Initiating Or Maintaining Sleep 08/11/2010 401.9 Unsp ecified Essential Hypertension 08/11/2010 788.1 Dysuria 08/11/2010 V17.49 FAM HX ASCVD (DISEASE) 08/11/2010 V18.0 FAM HX DIABETES MELLITUS 08/11/2010 300.4 DYST HYMIC DISORDER 08/11/2010 307.42 Per sistent Disorder Of Initiating Or Maintaining Sleep 08/11/2010 401.9 Unsp ecified Essential Hypertension 08/11/2010 788.1 Dysuria 08/11/2010 V17.49 FAM HX ASCVD (DISEASE) 08/11/2010 V18.0 FAM HX DIABETES MELLITUS 08/11/2010 300.4 DYST HYMIC DISORDER 08/11/2010 307.42 Per sistent Disorder Of Initiating Or Maintaining Sleep 08/11/2010 401.9 Unsp ecified Essential Hypertension 08/11/2010 788.1 Dysuria 08/11/2010 V17.49 FAM HX ASCVD (DISEASE) 08/11/2010 V18.0 FAM HX DIABETES MELLITUS 08/11/2010 300.4 DYST HYMIC DISORDER 08/11/2010 307.42 Per sistent Disorder Of Initiating Or Maintaining Sleep 08/11/2010 401.9 Unsp ecified Essential Hypertension 08/11/2010 788.1 Dysuria 08/11/2010 V17.49 FAM HX ASCVD (DISEASE) 08/11/2010 V18.0 FAM HX DIABETES MELLITUS 08/11/2010 300.4 DYST HYMIC DISORDER 08/11/2010 307.42 Per sistent Disorder Of Initiating Or Maintaining Sleep 08/11/2010 401.9 Unsp ecified Essential Hypertension 08/11/2010 788.1 Dysuria 08/11/2010 V17.49 FAM HX ASCVD (DISEASE) 08/11/2010 V18.0 FAM HX DIABETES MELLITUS 08/11/2010 300.4 DYST HYMIC DISORDER 08/11/2010 307.42 Per sistent Disorder Of Initiating Or Maintaining Sleep 08/11/2010 401.9 Unsp ecified Essential Hypertension 08/11/2010 788.1 Dysuria 08/11/2010 V17.49 FAM HX ASCVD (DISEASE) 08/11/2010 V18.0 FAM HX DIABETES MELLITUS 08/11/2010 300.4 DYST HYMIC DISORDER 08/11/2010 307.42 Per sistent Disorder Of Initiating Or Maintaining Sleep 08/11/2010 401.9 Unsp ecified Essential Hypertension 08/11/2010 788.1 Dysuria 08/11/2010 V17.49 FAM HX ASCVD (DISEASE) 08/11/2010 V18.0 FAM HX DIABETES MELLITUS 08/11/2010 300.4 DYST HYMIC DISORDER 08/11/2010 307.42 Per sistent Disorder Of Initiating Or Maintaining Sleep 08/11/2010 401.9 Unsp ecified Essential Hypertension 08/11/2010 788.1 Dysuria 08/11/2010 V17.49 FAM HX ASCVD (DISEASE) 08/11/2010 V18.0 FAM HX DIABETES MELLITUS 08/11/2010 300.4 DYST HYMIC DISORDER 08/11/2010 307.42 Per sistent Disorder Of Initiating Or Maintaining Sleep 08/11/2010 401.9 Unsp ecified Essential Hypertension 08/11/2010 788.1 Dysuria 08/11/2010 V17.49 FAM HX ASCVD (DISEASE) 08/11/2010 V18.0 FAM HX DIABETES MELLITUS 08/11/2010 YUKI WOODRUFF APRNA S 300.4 DYSTHYMIC DISORDER 08/11/2010 KATIE WOODRUFF APRNNDA S 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 08/11/2010 KATIE WOODRUFF APRNNDA S 401.9 Unspecified Essential Hypertension 08/11/2010 KATIE WOODRUFF APRNNDA S 788.1 Dysuria 08/11/2010 KATIE WOODRUFF APRNNDA S V17.49 FAM HX ASCVD (DISEASE) 08/11/2010 RANJAN FRAGOSO NENO S V18.0 FAM HX DIABETES MELLITUS 08/11/2010 DOUGLAS LEAL MD 300.4 DYSTHYMIC DISORDER 08/11/2010 DOUGLAS LEAL MD 307.4 2 Persistent Disorder Of Initiating Or Maintaining Sleep 08/11/2010 DOUGLAS LEAL MD 401.9 Unspecified Essential Hypertension 08/11/2010 DOUGLAS LEAL MD 788.1 Dysuria 08/11/2010 DOUGLAS LEAL MD V17.4 9 FAM HX ASCVD (DISEASE) 08/11/2010 DOUGLAS LEAL MD V18.0 FAM HX DIABETES MELLITUS 08/11/2010 OMAR ADORNO APRN 30 0.4 DYSTHYMIC DISORDER 08/11/2010 OMAR ADORNO APRN 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 08/11/2010 OMAR ADORNO APRN 40 1.9 Unspecified Essential Hypertension 08/11/2010 OMAR ADORNO APRN 78 8.1 Dysuria 08/11/2010 OMAR ADORNO APRN V17.49 FAM HX ASCVD (DISEASE) 08/11/2010 OMAR ADORNO APRN V1 8.0 FAM HX DIABETES MELLITUS 08/11/2010 NENO WOODRUFF APRN S 300.4 DYSTHYMIC DISORDER 08/11/2010 NENO WOODRUFF APRN S 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 08/11/2010 KATIE WOODRUFF APRNNDA S 401.9 Unspecified Essential Hypertension 08/11/2010 YUKI WOODRUFF APRNA S 788.1 Dysuria 08/11/2010 NENO WOODRUFF APRN S V17.49 FAM HX ASCVD (DISEASE) 08/11/2010 YUKI WOODRUFF APRNA S V18.0 FAM HX DIABETES MELLITUS 08/11/2010 OMAR ADORNO APRN 30 0.4 DYSTHYMIC DISORDER 08/11/2010 OMAR ADORNO APRN 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 08/11/2010 OMAR ADORNO APRN 40 1.9 Unspecified Essential Hypertension 08/11/2010 OMAR ADORNO APRN 78 8.1 Dysuria 08/11/2010 OMAR ADORNO APRN V17.49 FAM HX ASCVD (DISEASE) 08/11/2010 OMAR ADORNO APRN V1 8.0 FAM HX DIABETES MELLITUS 08/11/2010 DOUGLAS LEAL MD 300.4 DYSTHYMIC DISORDER 08/11/2010 DOUGLAS LEAL MD 307.4 2 Persistent Disorder Of Initiating Or Maintaining Sleep 08/11/2010 DOUGLAS LEAL MD 401.9 Unspecified Essential Hypertension 08/11/2010 DOUGLAS LEAL MD 788.1 Dysuria 08/11/2010 DOUGLAS LEAL MD V17.4 9 FAM HX ASCVD (DISEASE) 08/11/2010 DOUGLAS LEAL MD V18.0 FAM HX DIABETES MELLITUS 08/11/2010 AREN BAZAN LCPC B 30 0.4 DYSTHYMIC DISORDER 08/11/2010 AREN BAZAN LCPC B 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 08/11/2010 AREN BAZAN LCPC B 40 1.9 Unspecified Essential Hypertension 08/11/2010 AREN BAZAN LCPC B 78 8.1 Dysuria 08/11/2010 AREN BAZAN LCPC B V17.49 FAM HX ASCVD (DISEASE) 08/11/2010 AREN BAZAN LCPC B V1 8.0 FAM HX DIABETES MELLITUS 08/11/2010 YUKI WOODRUFF APRNA S 300.4 DYSTHYMIC DISORDER 08/11/2010 KATIE WOODRUFF APRNNDA S 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 08/11/2010 YUKI WOODRUFF APRNA S 401.9 Unspecified Essential Hypertension 08/11/2010 YUKI WOODRUFF APRNA S 788.1 Dysuria 08/11/2010 NENO WOODRUFF APRN S V17.49 FAM HX ASCVD (DISEASE) 08/11/2010 YUKI WOODRUFF APRNA S V18.0 FAM HX DIABETES MELLITUS 08/11/2010 KAREN GUTIERREZ PHD 300.4 DYSTHYMIC DISORDER 08/11/2010 KAREN GUTIERREZ PHD 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 08/11/2010 KAREN GUTIERREZ PHD 401.9 Unspecified Essential Hypertension 08/11/2010 KAREN GUTIERREZ PHD 788.1 Dysuria 08/11/2010 KAREN GUTIERREZ PHD V17.49 FAM HX ASCVD (DISEASE) 08/11/2010 KAREN GUTIERREZ PHD V18.0 FAM HX DIABETES MELLITUS 08/11/2010 KAREN GUTIERREZ PHD 300.4 DYSTHYMIC DISORDER 08/11/2010 KAREN GUTIERREZ PHD 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 08/11/2010 KAREN GUTIERREZ PHD 401.9 Unspecified Essential Hypertension 08/11/2010 KAREN GUTIERREZ PHD 788.1 Dysuria 08/11/2010 KAREN GUTIERREZ PHD V17.49 FAM HX ASCVD (DISEASE) 08/11/2010 BRENDA PABLO, KAREN Quinn V18.0 FAM HX DIABETES MELLITUS 08/11/2010 RANJAN FRAGOSO NENO S 300.4 DYSTHYMIC DISORDER 08/11/2010 RANJAN FRAGOSO NENO S 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 08/11/2010 RANJAN FRAGOSO, NENO S 401.9 Unspecified Essential Hypertension 08/11/2010 RANJAN FRAGOSO NENO S 788.1 Dysuria 08/11/2010 RANJAN FRAGOSO NENO S V17.49 FAM HX ASCVD (DISEASE) 08/11/2010 RANJAN FRAGOSO NENO S V18.0 FAM HX DIABETES MELLITUS 08/11/2010 RANJAN FRAGOSO NENO S 300.4 DYSTHYMIC DISORDER 08/11/2010 RANJAN FRAGSOO NENO S 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 08/11/2010 KATIE WOODRUFF APRNNDA S 401.9 Unspecified Essential Hypertension 08/11/2010 RANJAN FRAGOSO NENO S 788.1 Dysuria 08/11/2010 KATIE WOODRUFF APRNNDA S V17.49 FAM HX ASCVD (DISEASE) 08/11/2010 KATIE WOODRUFF APRNNDA S V18.0 FAM HX DIABETES MELLITUS 08/11/2010 MALIKA GUILLEN APRTate ROBERTO N 300.4 DYSTHYMIC DISORDER 08/11/2010 DALY WILMER MURILLON, ROBERTO N 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 08/11/2010 DALY WILMER MURILLOALONDRA YbarraCY N 401.9 Unspecified Essential Hypertension 08/11/2010 DALY EDOUARDERO INSPECTOR PACKAGER, ROBERTO N 788.1 Dysuria 08/11/2010 DALY CASHERO INSPECTOR PACKAGER, ROBERTO N V17.49 FAM HX ASCVD (DISEASE) 08/11/2010 DALY CASHERO INSPECTOR PACKAGER, ROBERTO N V18.0 FAM HX DIABETES MELLITUS 08/11/2010 RANJAN FRAGOSO NENO S 300.4 DYSTHYMIC DISORDER 08/11/2010 RANJAN FRAGOSO NENO S 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 08/11/2010 RANJAN INSPECTOR PACKAGER, NENO S 401.9 Unspecified Essential Hypertension 08/11/2010 RANJAN FRAGOSO NENO S 788.1 Dysuria 08/11/2010 YUKI WOODRUFF APRNA S V17.49 FAM HX ASCVD (DISEASE) 08/11/2010 RANJAN INSPECTOR PACKAGER, NENO S V18.0 FAM HX DIABETES MELLITUS 08/11/2010 KAREN GUTIERREZ PHD 300.4 DYSTHYMIC DISORDER 08/11/2010 KAREN GUTIERREZ PHD 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 08/11/2010 KAREN GUTIERREZ PHD 401.9 Unspecified Essential Hypertension 08/11/2010 KAREN GUTIERREZ PHD 788.1 Dysuria 08/11/2010 KAREN GUTIERREZ PHD V17.49 FAM HX ASCVD (DISEASE) 08/11/2010 KAREN GUTIERREZ PHD V18.0 FAM HX DIABETES MELLITUS 08/11/2010 MARIAN FRAGOSO PRIETO R 300.4 DYSTHYMIC DISORDER 08/11/2010 MARIAN FRAGOSO PRIETO R 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 08/11/2010 MARIAN FRAGOSO PRIETO R 401.9 Unspecified Essential Hypertension 08/11/2010 MARIAN FRAGOSO, PRIETO R 788.1 Dysuria 08/11/2010 MARIAN FRAGOSO PRIETO R V17.49 FAM HX ASCVD (DISEASE) 08/11/2010 MARIAN FRAGOSO, PRIETO R V18.0 FAM HX DIABETES MELLITUS 08/11/2010 DOUGLAS LEAL MD 300.4 DYSTHYMIC DISORDER 08/11/2010 DOUGLAS LEAL MD 307.4 2 Persistent Disorder Of Initiating Or Maintaining Sleep 08/11/2010 DOUGLAS LEAL MD 401.9 Unspecified Essential Hypertension 08/11/2010 DOUGLAS LEAL MD 788.1 Dysuria 08/11/2010 DOUGLAS LEAL MD V17.4 9 FAM HX ASCVD (DISEASE) 08/11/2010 DOUGLAS LEAL MD V18.0 FAM HX DIABETES MELLITUS 08/11/2010 KAREN GUTIERREZ PHD 300.4 DYSTHYMIC DISORDER 08/11/2010 KAREN GUTIERREZ PHD 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 08/11/2010 KAREN GUTIERREZ PHD 401.9 Unspecified Essential Hypertension 08/11/2010 KAREN GUTIERREZ PHD 788.1 Dysuria 08/11/2010 BRENDA PHD, KAREN Quinn V17.49 FAM HX ASCVD (DISEASE) 08/11/2010 BRENDA PABLO, KAREN Quinn V18.0 FAM HX DIABETES MELLITUS 08/11/2010 DIONNA INSPECTOR PACKAGER, LAURIE 300 .4 DYSTHYMIC DISORDER 08/11/2010 DIONNA INSPECTOR PACKAGER, LAURIE 307 .42 Persistent Disorder Of Initiating Or Maintaining Sleep 08/11/2010 DIONNA INSPECTOR PACKAGER, LAURIE 401 .9 Unspecified Essential Hypertension 08/11/2010 DIONNA INSPECTOR PACKAGER, LAURIE 788 .1 Dysuria 08/11/2010 DIONNA INSPECTOR PACKAGER, LAURIE V17 .49 FAM HX ASCVD (DISEASE) 08/11/2010 DIONNA INSPECTOR PACKAGER, LAURIE V18 .0 FAM HX DIABETES MELLITUS 08/11/2010 RANJAN FRAGOSO NENO S 300.4 DYSTHYMIC DISORDER 08/11/2010 RANJAN FRAGOSO NENO S 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 08/11/2010 RANJAN FRAGOSO NENO S 401.9 Unspecified Essential Hypertension 08/11/2010 RANJAN FRAGOSO, NENO S 788.1 Dysuria 08/11/2010 RANJAN FRAGOSO, NENO S V17.49 FAM HX ASCVD (DISEASE) 08/11/2010 RANJAN FRAGOSO NENO S V18.0 FAM HX DIABETES MELLITUS 08/11/2010 DIONNA INSPECTOR PACKAGER, LAURIE 300 .4 DYSTHYMIC DISORDER 08/11/2010 DIONNA INSPECTOR PACKAGER, LAURIE 307 .42 Persistent Disorder Of Initiating Or Maintaining Sleep 08/11/2010 DIONNA INSPECTOR PACKAGER, LAURIE 401 .9 Unspecified Essential Hypertension 08/11/2010 DIONNA INSPECTOR PACKAGER, LAURIE 788 .1 Dysuria 08/11/2010 DIONNA INSPECTOR PACKAGER, LAURIE V17 .49 FAM HX ASCVD (DISEASE) 08/11/2010 DIONNA INSPECTOR PACKAGER, LAURIE V18 .0 FAM HX DIABETES MELLITUS 08/11/2010 DIONNA INSPECTOR PACKAGER, LAURIE 300 .4 DYSTHYMIC DISORDER 08/11/2010 DIONNA INSPECTOR PACKAGER, LAURIE 307 .42 Persistent Disorder Of Initiating Or Maintaining Sleep 08/11/2010 DIONNA INSPECTOR PACKAGER, LAURIE 401 .9 Unspecified Essential Hypertension 08/11/2010 DIONNA INSPECTOR PACKAGER, LAURIE 788 .1 Dysuria 08/11/2010 DIONNA INSPECTOR PACKAGER, LAURIE V17 .49 FAM HX ASCVD (DISEASE) 08/11/2010 DIONNA INSPECTOR PACKAGER, LAURIE V18 .0 FAM HX DIABETES MELLITUS 08/11/2010 DIONNA INSPECTOR PACKAGER, LAURIE 300 .4 DYSTHYMIC DISORDER 08/11/2010 DIONNA INSPECTOR PACKAGER, LAURIE 307 .42 Persistent Disorder Of Initiating Or Maintaining Sleep 08/11/2010 DIONNA INSPECTOR PACKAGER, LAURIE 401 .9 Unspecified Essential Hypertension 08/11/2010 DIONNA MURILLON, LAURIE 788 .1 Dysuria 08/11/2010 DIONNA MURILLON, LAURIE V17 .49 FAM HX ASCVD (DISEASE) 08/11/2010 DIONNA MURILLON, LAURIE V18 .0 FAM HX DIABETES MELLITUS 08/11/2010 OMAR ADORNO APRN 30 0.4 DYSTHYMIC DISORDER 08/11/2010 OMAR ADORNO APRN 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 08/11/2010 OMAR ADORNO APRN 40 1.9 Unspecified Essential Hypertension 08/11/2010 OMAR ADORNO APRN 78 8.1 Dysuria 08/11/2010 OMAR ADORNO APRN V17.49 FAM HX ASCVD (DISEASE) 08/11/2010 OMAR ADORNO APRN V1 8.0 FAM HX DIABETES MELLITUS 08/11/2010 DIONNA MURILLOTate LAURIE 300 .4 DYSTHYMIC DISORDER 08/11/2010 DIONNA MURILLON, LAURIE 307 .42 Persistent Disorder Of Initiating Or Maintaining Sleep 08/11/2010 DIONNA INSPECTOR PACKAGER, LAURIE 401 .9 Unspecified Essential Hypertension 08/11/2010 DIONNA MURILLOTate LAURIE 788 .1 Dysuria 08/11/2010 DIONNA MURILLOTate LAURIE V17 .49 FAM HX ASCVD (DISEASE) 08/11/2010 DIONNA INSPECTOR PACKAGER, LAURIE V18 .0 FAM HX DIABETES MELLITUS 08/11/2010 WHITE DDS, KAITLIN J 30 0.4 DYSTHYMIC DISORDER 08/11/2010 WHITE DDS, KAITLIN J 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 08/11/2010 WHITE DDS, KAITLIN J 40 1.9 Unspecified Essential Hypertension 08/11/2010 WHITE DDS, KAITLIN J 78 8.1 Dysuria 08/11/2010 WHITE DDS, KAITLIN J V17.49 FAM HX ASCVD (DISEASE) 08/11/2010 WHITE DDS, KAITLIN J V1 8.0 FAM HX DIABETES MELLITUS 08/11/2010 ESPINOZA DDS, JULI 30 0.4 DYSTHYMIC DISORDER 08/11/2010 ESPINOZA DDS, JULI 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 08/11/2010 ESPINOZA DDS, JULI 40 1.9 Unspecified Essential Hypertension 08/11/2010 ESPINOZA DDS, JULI 78 8.1 Dysuria 08/11/2010 ESPINOZA DDS, JULI V17.49 FAM HX ASCVD (DISEASE) 08/11/2010 ESPINOZA DDS, JULI V1 8.0 FAM HX DIABETES MELLITUS 08/11/2010 ESPINOZA DDS, JULI 30 0.4 DYSTHYMIC DISORDER 08/11/2010 ESPINOZA DDS, JULI 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 08/11/2010 ESPINOZA DDS, JULI 40 1.9 Unspecified Essential Hypertension 08/11/2010 ESPINOZA DDS, JULI 78 8.1 Dysuria 08/11/2010 ESPINOZA DDS, JULI V17.49 FAM HX ASCVD (DISEASE) 08/11/2010 ESPINOZA DDS, JULI V1 8.0 FAM HX DIABETES MELLITUS 08/11/2010 DIONNA FRAGOSO LAURIE 300 .4 DYSTHYMIC DISORDER 08/11/2010 DIONNA FRAGOSO LAURIE 307 .42 Persistent Disorder Of Initiating Or Maintaining Sleep 08/11/2010 DIONNA FRAGOSO LAURIE 401 .9 Unspecified Essential Hypertension 08/11/2010 DIONNAMYESHA FRAGOSO, LAURIE 788 .1 Dysuria 08/11/2010 DIONNA FRAGOSO LAURIE V17 .49 FAM HX ASCVD (DISEASE) 08/11/2010 DIONNA INSPECTOR PACKAGER, LAURIE V18 .0 FAM HX DIABETES MELLITUS 08/11/2010 BEAR YOUNG DO K 300.4 DYSTHYMIC DISORDER 08/11/2010 HANNAH COFFMAN BEAR K 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 08/11/2010 KENDY YOUNG DOA K 401.9 Unspecified Essential Hypertension 08/11/2010 KENDY YOUNG DOA K 788.1 Dysuria 08/11/2010 YOUNG DO, BEAR K V17.49 FAM HX ASCVD (DISEASE) 08/11/2010 YOUNG DO, BEAR K V18.0 FAM HX DIABETES MELLITUS 08/11/2010 MARIAN FRAGOSO PRIETO R 300.4 DYSTHYMIC DISORDER 08/11/2010 MARIAN FRAGOSO PRIETO R 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 08/11/2010 MARIAN FRAGOSO PRIETO R 401.9 Unspecified Essential Hypertension 08/11/2010 MARIAN FRAGOSO PRIETO R 788.1 Dysuria 08/11/2010 MARIAN FRAGOSO PRIETO R V17.49 FAM HX ASCVD (DISEASE) 08/11/2010 MARIAN FRAGOSO PRIETO R V18.0 FAM HX DIABETES MELLITUS 08/11/2010 DIONNA FRAGOSO LAURIE 300 .4 DYSTHYMIC DISORDER 08/11/2010 DIONNA FRAGOSO LAURIE 307 .42 Persistent Disorder Of Initiating Or Maintaining Sleep 08/11/2010 RAMEZ VILLAREAL APRNETTE 401 .9 Unspecified Essential Hypertension 08/11/2010 DIONNA FRAGOSO LAURIE 788 .1 Dysuria 08/11/2010 DIONNA FRAGOSO LAURIE V17 .49 FAM HX ASCVD (DISEASE) 08/11/2010 DIONNA FRAGOSO LAURIE V18 .0 FAM HX DIABETES MELLITUS 08/11/2010 ENOCH FONSECA APRNINA R 300.4 DYSTHYMIC DISORDER 08/11/2010 MARIAN FRAGOSO PRIETO R 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 08/11/2010 MARIAN FRAGOSO PRIETO R 401.9 Unspecified Essential Hypertension 08/11/2010 MARIAN FRAGOSO PRIETO R 788.1 Dysuria 08/11/2010 MARIAN FRAGOSO PRIETO R V17.49 FAM HX ASCVD (DISEASE) 08/11/2010 MARIAN FRAGOSO PRIETO R V18.0 FAM HX DIABETES MELLITUS 08/11/2010 MARIAN FRAGOSO PRIETO R 300.4 DYSTHYMIC DISORDER 08/11/2010 MARIAN FRAGOSO PRIETO R 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 08/11/2010 MARIAN FRAGOSO PRIETO R 401.9 Unspecified Essential Hypertension 08/11/2010 MARIAN FRAGOSO PRIETO R 788.1 Dysuria 08/11/2010 MARIAN FRAGOSO PRIETO R V17.49 FAM HX ASCVD (DISEASE) 08/11/2010 PRIETO FONSECA APRN R V18.0 FAM HX DIABETES MELLITUS 08/11/2010 DOUGLAS LEAL MD 300.4 DYSTHYMIC DISORDER 08/11/2010 DOUGLAS LEAL MD 307.4 2 Persistent Disorder Of Initiating Or Maintaining Sleep 08/11/2010 DOUGLAS LEAL MD 401.9 Unspecified Essential Hypertension 08/11/2010 DOUGLAS LEAL MD 788.1 Dysuria 08/11/2010 DOUGLAS LEAL MD V17.4 9 FAM HX ASCVD (DISEASE) 08/11/2010 DOUGLAS LEAL MD V18.0 FAM HX DIABETES MELLITUS 08/11/2010 BEAR YOUNG DO 300.4 DYSTHYMIC DISORDER 08/11/2010 BEAR YOUNG DO 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 08/11/2010 BEAR YOUNG DO 401.9 Unspecified Essential Hypertension 08/11/2010 BEAR YOUNG DO 788.1 Dysuria 08/11/2010 BEAR YOUNG DO V17.49 FAM HX ASCVD (DISEASE) 08/11/2010 BEAR YOUNG DO V18.0 FAM HX DIABETES MELLITUS 08/19/2010 Ot 845.00 08/19/2010 Ot 959.7 08/19/2010 Ot E000.8 08/19/2010 Ot E849.0 08/19/2010 Ot E927.0 09/29/2010 Ot 873.42 09/29/2010 Ot E000.8 09/29/2010 Ot E849.6 09/29/2010 Ot E917.9 09/29/2010 Ot V03.7 09/30/2010 Ot 721.0 09/30/2010 Ot 847.0 09/30/2010 Ot 920 09/30/2010 Ot 959.01 09/30/2010 Ot E000.8 09/30/2010 Ot E849.6 09/30/2010 Ot E917.9 12/21/2010 Ot 845.00 12/21/2010 Ot 959.7 12/21/2010 Ot E000.8 12/21/2010 Ot E001.0 12/21/2010 Ot E849.4 12/21/2010 Ot E927.8 01/06/2011 Ot 682.6 01/06/2011 Ot 729.5 02/13/2011 BEAR YOUNG DO K 522.5 Periapical Abscess Without Sinus 02/13/2011 BEAR YOUNG DO K V65.42 Counseling - Smoking Cessation 02/13/2011 522.5 Leidy apical Abscess Without Sinus 02/13/2011 V65.42 Cou nseling - Smoking Cessation 02/13/2011 522.5 Liedy apical Abscess Without Sinus 02/13/2011 V65.42 Cou nseling - Smoking Cessation 02/13/2011 BEAR YOUNG DO K 522.5 Periapical Abscess Without Sinus 02/13/2011 BEAR YOUNG DO K V65.42 Counseling - Smoking Cessation 02/13/2011 PAU GARCIA APRN R 522.5 Periapical Abscess Without Sinus 02/13/2011 PAU GARCIA APRN R V65.42 Counseling - Smoking Cessation 02/13/2011 522.5 Leidy apical Abscess Without Sinus 02/13/2011 V65.42 Cou nseling - Smoking Cessation 02/13/2011 522.5 Leidy apical Abscess Without Sinus 02/13/2011 V65.42 Cou nseling - Smoking Cessation 02/13/2011 522.5 Leidy apical Abscess Without Sinus 02/13/2011 V65.42 Cou nseling - Smoking Cessation 02/13/2011 522.5 Leidy apical Abscess Without Sinus 02/13/2011 V65.42 Cou nseling - Smoking Cessation 02/13/2011 522.5 Leidy apical Abscess Without Sinus 02/13/2011 V65.42 Cou nseling - Smoking Cessation 02/13/2011 522.5 Leidy apical Abscess Without Sinus 02/13/2011 V65.42 Cou nseling - Smoking Cessation 02/13/2011 522.5 Leidy apical Abscess Without Sinus 02/13/2011 V65.42 Cou nseling - Smoking Cessation 02/13/2011 522.5 Leidy apical Abscess Without Sinus 02/13/2011 V65.42 Cou nseling - Smoking Cessation 02/13/2011 522.5 Leidy apical Abscess Without Sinus 02/13/2011 V65.42 Cou nseling - Smoking Cessation 02/13/2011 522.5 Leidy apical Abscess Without Sinus 02/13/2011 V65.42 Cou nseling - Smoking Cessation 02/13/2011 NENO WOODRUFF APRN 522.5 Periapical Abscess Without Sinus 02/13/2011 RANJAN [employer], NENO S V65.42 Counseling - Smoking Cessation 02/13/2011 DOUGLAS LEAL MD 522.5 Periapical Abscess Without Sinus 02/13/2011 DOUGLAS LEAL MD V65.4 2 Counseling - Smoking Cessation 02/13/2011 OMAR ADORNO APRN 52 2.5 Periapical Abscess Without Sinus 02/13/2011 OMAR ADORNO APRN V65.42 Counseling - Smoking Cessation 02/13/2011 RANJAN FRAGOSO, NENO S 522.5 Periapical Abscess Without Sinus 02/13/2011 RANJAN FRAGOSO, NENO S V65.42 Counseling - Smoking Cessation 02/13/2011 OMAR ADORNO APRN 52 2.5 Periapical Abscess Without Sinus 02/13/2011 OMAR ADORNO APRN V65.42 Counseling - Smoking Cessation 02/13/2011 DOUGLAS LEAL MD 522.5 Periapical Abscess Without Sinus 02/13/2011 DOUGLAS LEAL MD V65.4 2 Counseling - Smoking Cessation 02/13/2011 AREN BAZAN LCPC B 52 2.5 Periapical Abscess Without Sinus 02/13/2011 AREN BAZAN LCPC B V65.42 Counseling - Smoking Cessation 02/13/2011 RANJAN FRAGOSO, NENO S 522.5 Periapical Abscess Without Sinus 02/13/2011 RANJAN FRAGOSO, NENO S V65.42 Counseling - Smoking Cessation 02/13/2011 KAREN GUTIERREZ PHD 522.5 Periapical Abscess Without Sinus 02/13/2011 KAREN GUTIERREZ PHD V65.42 Counseling - Smoking Cessation 02/13/2011 KAREN GUTIERREZ PHD 522.5 Periapical Abscess Without Sinus 02/13/2011 KAREN GUTIERREZ PHD V65.42 Counseling - Smoking Cessation 02/13/2011 RANJAN FRAGOSO, NENO S 522.5 Periapical Abscess Without Sinus 02/13/2011 RANJAN FRAGOSO, NENO S V65.42 Counseling - Smoking Cessation 02/13/2011 RANJAN INSPECTOR PACKAGER, NENO S 522.5 Periapical Abscess Without Sinus 02/13/2011 RANJAN FRAGOSO, NENO S V65.42 Counseling - Smoking Cessation 02/13/2011 DALY CASHERO INSPECTOR PACKAGER, ROBERTO N 522.5 Periapical Abscess Without Sinus 02/13/2011 MALIKA GUILLEN APRN, ROBERTO N V65.42 Counseling - Smoking Cessation 02/13/2011 RANJAN FRAGOSO NENO S 522.5 Periapical Abscess Without Sinus 02/13/2011 RANJAN FRAGOSO, NENO S V65.42 Counseling - Smoking Cessation 02/13/2011 BRENDA PABLO, KAREN Quinn 522.5 Periapical Abscess Without Sinus 02/13/2011 BRENDA PABLO, KAREN Quinn V65.42 Counseling - Smoking Cessation 02/13/2011 MARIAN INSPECTOR PACKAGER, PRIETO R 522.5 Periapical Abscess Without Sinus 02/13/2011 MARIAN INSPECTOR PACKAGER, PRIETO R V65.42 Counseling - Smoking Cessation 02/13/2011 DOUGLAS LEAL MD 522.5 Periapical Abscess Without Sinus 02/13/2011 DOUGLAS LEAL MD V65.4 2 Counseling - Smoking Cessation 02/13/2011 BRENDA PABLO, KAREN Quinn 522.5 Periapical Abscess Without Sinus 02/13/2011 BRENDA PABLO, KAREN Quinn V65.42 Counseling - Smoking Cessation 02/13/2011 DIONNA INSPECTOR PACKAGER, LAURIE 522 .5 Periapical Abscess Without Sinus 02/13/2011 DIONNA INSPECTOR PACKAGER, LAURIE V65 .42 Counseling - Smoking Cessation 02/13/2011 YUKI WOODRUFF APRNA S 522.5 Periapical Abscess Without Sinus 02/13/2011 RANJAN FRAGOSO, NENO S V65.42 Counseling - Smoking Cessation 02/13/2011 DIONNA INSPECTOR PACKAGER, LAURIE 522 .5 Periapical Abscess Without Sinus 02/13/2011 DIONNA INSPECTOR PACKAGER, LAURIE V65 .42 Counseling - Smoking Cessation 02/13/2011 DIONNA INSPECTOR PACKAGER, LAURIE 522 .5 Periapical Abscess Without Sinus 02/13/2011 DIONNA INSPECTOR PACKAGER, LAURIE V65 .42 Counseling - Smoking Cessation 02/13/2011 DIONNA INSPECTOR PACKAGER, LAURIE 522 .5 Periapical Abscess Without Sinus 02/13/2011 DIONNA INSPECTOR PACKAGER, LAURIE V65 .42 Counseling - Smoking Cessation 02/13/2011 OMAR ADORNO APRN 52 2.5 Periapical Abscess Without Sinus 02/13/2011 OMAR ADORNO APRN V65.42 Counseling - Smoking Cessation 02/13/2011 DIONNA INSPECTOR PACKAGER, LAURIE 522 .5 Periapical Abscess Without Sinus 02/13/2011 DIONNA INSPECTOR PACKAGER, LAURIE V65 .42 Counseling - Smoking Cessation 02/13/2011 WHITE DDS, KAITLIN J 52 2.5 Periapical Abscess Without Sinus 02/13/2011 WHITE DDS, KAITLIN J V65.42 Counseling - Smoking Cessation 02/13/2011 ESPINOZA DDS, JULI 52 2.5 Periapical Abscess Without Sinus 02/13/2011 ESPINOZA DDS, JULI V65.42 Counseling - Smoking Cessation 02/13/2011 ESPINOZA DDS, JULI 52 2.5 Periapical Abscess Without Sinus 02/13/2011 ESPINOZA DDS, JULI V65.42 Counseling - Smoking Cessation 02/13/2011 RAMEZ VILLAREAL APRNETTE 522 .5 Periapical Abscess Without Sinus 02/13/2011 DIONNA FRAGOSO LAURIE V65 .42 Counseling - Smoking Cessation 02/13/2011 BEAR YOUNG DO 522.5 Periapical Abscess Without Sinus 02/13/2011 BEAR YOUNG DO V65.42 Counseling - Smoking Cessation 02/13/2011 MARIAN FRAGOSO PRIETO R 522.5 Periapical Abscess Without Sinus 02/13/2011 MARIAN FRAGOSO PRIETO R V65.42 Counseling - Smoking Cessation 02/13/2011 RAMEZ VILLAREAL APRNETTE 522 .5 Periapical Abscess Without Sinus 02/13/2011 DIONNA FRAGOSO LAURIE V65 .42 Counseling - Smoking Cessation 02/13/2011 MARIAN FRAGOSO PRIETO R 522.5 Periapical Abscess Without Sinus 02/13/2011 MARIAN FRAGOSO PRIETO R V65.42 Counseling - Smoking Cessation 02/13/2011 MARIAN FRAGOSO PRIETO R 522.5 Periapical Abscess Without Sinus 02/13/2011 MARIAN FRAGOSO PRIETO R V65.42 Counseling - Smoking Cessation 02/13/2011 DOUGLAS LEAL MD 522.5 Periapical Abscess Without Sinus 02/13/2011 DOUGLAS LEAL MD V65.4 2 Counseling - Smoking Cessation 02/13/2011 BEAR YOUNG DO 522.5 Periapical Abscess Without Sinus 02/13/2011 BEAR YOUNG DO V65.42 Counseling - Smoking Cessation 02/24/2011 BEAR YOUNG DO V04.81 Flu Dx (3 Yrs And Above, Im) 02/24/2011 V04.81 Flu Dx (3 Yrs And Above, Im) 02/24/2011 V04.81 Flu Dx (3 Yrs And Above, Im) 02/24/2011 BEAR YOUNG DO V04.81 Flu Dx (3 Yrs And Above, Im) 02/24/2011 PAU GARCIA APRN V04.81 Flu Dx (3 Yrs And Above, Im) 02/24/2011 V04.81 Flu Dx (3 Yrs And Above, Im) 02/24/2011 V04.81 Flu Dx (3 Yrs And Above, Im) 02/24/2011 V04.81 Flu Dx (3 Yrs And Above, Im) 02/24/2011 V04.81 Flu Dx (3 Yrs And Above, Im) 02/24/2011 V04.81 Flu Dx (3 Yrs And Above, Im) 02/24/2011 V04.81 Flu Dx (3 Yrs And Above, Im) 02/24/2011 V04.81 Flu Dx (3 Yrs And Above, Im) 02/24/2011 V04.81 Flu Dx (3 Yrs And Above, Im) 02/24/2011 V04.81 Flu Dx (3 Yrs And Above, Im) 02/24/2011 V04.81 Flu Dx (3 Yrs And Above, Im) 02/24/2011 NENO WOODRUFF APRN V04.81 Flu Dx (3 Yrs And Above, Im) 02/24/2011 DOUGLAS LEAL MD V04.8 1 Flu Dx (3 Yrs And Above, Im) 02/24/2011 OAMR ADORNO APRN V04.81 Flu Dx (3 Yrs And Above, Im) 02/24/2011 NENO WOODRUFF APRN V04.81 Flu Dx (3 Yrs And Above, Im) 02/24/2011 OMAR ADORNO APRN V04.81 Flu Dx (3 Yrs And Above, Im) 02/24/2011 DOUGLAS LEAL MD V04.8 1 Flu Dx (3 Yrs And Above, Im) 02/24/2011 AREN BAZAN LCPC V04.81 Flu Dx (3 Yrs And Above, Im) 02/24/2011 NENO WOODRUFF APRN S V04.81 Flu Dx (3 Yrs And Above, Im) 02/24/2011 BRENDA PHD, KAREN Quinn V04.81 Flu Dx (3 Yrs And Above, Im) 02/24/2011 BRENDA PABLO, KAREN Quinn V04.81 Flu Dx (3 Yrs And Above, Im) 02/24/2011 RANJAN FRAGOSO, NENO S V04.81 Flu Dx (3 Yrs And Above, Im) 02/24/2011 RANJAN FRAGOSO, NENO S V04.81 Flu Dx (3 Yrs And Above, Im) 02/24/2011 MALIKA GUILLEN APRN, ROBERTO N V04.81 Flu Dx (3 Yrs And Above, Im) 02/24/2011 RANJAN FRAGOSO, NENO S V04.81 Flu Dx (3 Yrs And Above, Im) 02/24/2011 BRENDA PHD, KAREN Quinn V04.81 Flu Dx (3 Yrs And Above, Im) 02/24/2011 MARIAN FRAGOSO, PRIETO R V04.81 Flu Dx (3 Yrs And Above, Im) 02/24/2011 MEL JOYCE, DOUGLAS V04.8 1 Flu Dx (3 Yrs And Above, Im) 02/24/2011 BRENDA PHD, KAREN Quinn V04.81 Flu Dx (3 Yrs And Above, Im) 02/24/2011 DIONNA INSPECTOR PACKAGER, LAURIE V04 .81 Flu Dx (3 Yrs And Above, Im) 02/24/2011 RANJAN FRAGOSO, NENO S V04.81 Flu Dx (3 Yrs And Above, Im) 02/24/2011 DIONNA INSPECTOR PACKAGER, LAURIE V04 .81 Flu Dx (3 Yrs And Above, Im) 02/24/2011 DIONNA INSPECTOR PACKAGER, LAURIE V04 .81 Flu Dx (3 Yrs And Above, Im) 02/24/2011 DIONNA MURILLON, LAURIE V04 .81 Flu Dx (3 Yrs And Above, Im) 02/24/2011 OMAR ADORNO APRN V04.81 Flu Dx (3 Yrs And Above, Im) 02/24/2011 DIONNA INSPECTOR PACKAGER, LAURIE V04 .81 Flu Dx (3 Yrs And Above, Im) 02/24/2011 KAITLIN ISLAS DDS V04.81 Flu Dx (3 Yrs And Above, Im) 02/24/2011 JULI ESPINOZA DDS V04.81 Flu Dx (3 Yrs And Above, Im) 02/24/2011 OLGA LUCERO, JULI V04.81 Flu Dx (3 Yrs And Above, Im) 02/24/2011 LAURIE VILLAREAL APRN V04 .81 Flu Dx (3 Yrs And Above, Im) 02/24/2011 BEAR YOUNG DO V04.81 Flu Dx (3 Yrs And Above, Im) 02/24/2011 PRIETO FONSECA APRN V04.81 Flu Dx (3 Yrs And Above, Im) 02/24/2011 LAURIE VILLAREAL APRN V04 .81 Flu Dx (3 Yrs And Above, Im) 02/24/2011 PRIETO FONSECA APRN R V04.81 Flu Dx (3 Yrs And Above, Im) 02/24/2011 PRIETO FONSECA APRN V04.81 Flu Dx (3 Yrs And Above, Im) 02/24/2011 MEL JOYCE, DOUGLAS V04.8 1 Flu Dx (3 Yrs And Above, Im) 02/24/2011 BEAR YOUNG DO V04.81 Flu Dx (3 Yrs And Above, Im) 03/07/2011 Ot 845.00 03/07/2011 Ot 959.7 03/07/2011 Ot E000.8 03/07/2011 Ot E006.4 03/07/2011 Ot E826.1 03/09/2011 BEAR YOUNG DO 461.9 Sinusitis Acute 03/09/2011 461.9 Sinu sitis Acute 03/09/2011 461.9 Sinu sitis Acute 03/09/2011 BEAR YOUNG DO 461.9 Sinusitis Acute 03/09/2011 PAU GARCIA APRN 461.9 Sinusitis Acute 03/09/2011 461.9 Sinu sitis Acute 03/09/2011 461.9 Sinu sitis Acute 03/09/2011 461.9 Sinu sitis Acute 03/09/2011 461.9 Sinu sitis Acute 03/09/2011 461.9 Sinu sitis Acute 03/09/2011 461.9 Sinu sitis Acute 03/09/2011 461.9 Sinu sitis Acute 03/09/2011 461.9 Sinu sitis Acute 03/09/2011 461.9 Sinu sitis Acute 03/09/2011 461.9 Sinu sitis Acute 03/09/2011 RANJANELOISA MURILLON, NENO S 461.9 Sinusitis Acute 03/09/2011 DOUGLAS LEAL MD 461.9 Sinusitis Acute 03/09/2011 TILA FRAGOSO, OMAR T 46 1.9 Sinusitis Acute 03/09/2011 RANJAN INSPECTOR PACKAGER, NENO S 461.9 Sinusitis Acute 03/09/2011 TILA FRAGOSO, OMAR T 46 1.9 Sinusitis Acute 03/09/2011 DOUGLAS LEAL MD 461.9 Sinusitis Acute 03/09/2011 BENI LYNCH, AREN [place]ida 46 1.9 Sinusitis Acute 03/09/2011 RANJAN INSPECTOR PACKAGER, NENO S 461.9 Sinusitis Acute 03/09/2011 BRENDA PHD, KAREN Quinn 461.9 Sinusitis Acute 03/09/2011 BRENDA PHD, KAREN Quinn 461.9 Sinusitis Acute 03/09/2011 RANJAN INSPECTOR PACKAGER, NENO S 461.9 Sinusitis Acute 03/09/2011 RANJAN INSPECTOR PACKAGER, NENO S 461.9 Sinusitis Acute 03/09/2011 MALIKA GUILLEN INSPECTOR PACKAGER, ROBERTO N 461.9 Sinusitis Acute 03/09/2011 RANJAN INSPECTOR PACKAGER, NENO S 461.9 Sinusitis Acute 03/09/2011 BRENDA PHD, KAREN Quinn 461.9 Sinusitis Acute 03/09/2011 MARIAN INSPECTOR PACKAGER, PRIETO R 461.9 Sinusitis Acute 03/09/2011 DOUGLAS LEAL MD 461.9 Sinusitis Acute 03/09/2011 BRENDA PABLO, KAREN Quinn 461.9 Sinusitis Acute 03/09/2011 DIONNA INSPECTOR PACKAGER, LAURIE 461 .9 Sinusitis Acute 03/09/2011 RANJAN INSPECTOR PACKAGER, NENO S 461.9 Sinusitis Acute 03/09/2011 DIONNA INSPECTOR PACKAGER, LAURIE 461 .9 Sinusitis Acute 03/09/2011 DIONNA INSPECTOR PACKAGER, LAURIE 461 .9 Sinusitis Acute 03/09/2011 DIONNA INSPECTOR PACKAGER, LAURIE 461 .9 Sinusitis Acute 03/09/2011 OMAR ADORNO APRN T 46 1.9 Sinusitis Acute 03/09/2011 DIONNA INSPECTOR PACKAGER, LAURIE 461 .9 Sinusitis Acute 03/09/2011 WHITE DDS, KAITLIN J 46 1.9 Sinusitis Acute 03/09/2011 ESPINOZA DDS, JULI 46 1.9 Sinusitis Acute 03/09/2011 ESPINOZA DDS, JULI 46 1.9 Sinusitis Acute 03/09/2011 DIONNA INSPECTOR PACKAGER, LAURIE 461 .9 Sinusitis Acute 03/09/2011 BEAR YOUNG DO K 461.9 Sinusitis Acute 03/09/2011 MARIAN INSPECTOR PACKAGER, PRIETO R 461.9 Sinusitis Acute 03/09/2011 DIONNA INSPECTOR PACKAGER, LAURIE 461 .9 Sinusitis Acute 03/09/2011 MARIAN INSPECTOR PACKAGER, PRIETO R 461.9 Sinusitis Acute 03/09/2011 MARIAN INSPECTOR PACKAGER, PRIETO R 461.9 Sinusitis Acute 03/09/2011 DOUGLAS LEAL MD 461.9 Sinusitis Acute 03/09/2011 BEAR YOUNG DO K 461.9 Sinusitis Acute 03/16/2011 BEAR YOUNG DO 729.5 PAIN IN LIMB 03/16/2011 729.5 PAIN IN LIMB 03/16/2011 729.5 PAIN IN LIMB 03/16/2011 BEAR YOUNG DO 729.5 PAIN IN LIMB 03/16/2011 PAU GARCIA APRN 729.5 pain in the leg (below the knee) 03/16/2011 729.5 pain in the leg (below the knee) 03/16/2011 729.5 Pain In The Leg (below The Knee) 03/16/2011 729.5 Pain In The Leg (below The Knee) 03/16/2011 729.5 Pain In The Leg (below The Knee) 03/16/2011 729.5 Pain In The Leg (below The Knee) 03/16/2011 729.5 Pain In The Leg (below The Knee) 03/16/2011 729.5 Pain In The Leg (below The Knee) 03/16/2011 729.5 Pain In The Leg (below The Knee) 03/16/2011 729.5 Pain In The Leg (below The Knee) 03/16/2011 729.5 Pain In The Leg (below The Knee) 03/16/2011 NENO WOODRUFF APRN 729.5 Pain In The Leg (below The Knee) 03/16/2011 DOUGLAS LEAL MD 729.5 Pain In The Leg (below The Knee) 03/16/2011 OMAR ADORNO APRN 72 9.5 Pain In The Leg (below The Knee) 03/16/2011 RANJAN MURILLON, NENO S 729.5 Pain In The Leg (below The Knee) 03/16/2011 OMAR ADORNO APRN 72 9.5 Pain In The Leg (below The Knee) 03/16/2011 DOUGLAS LEAL MD 729.5 Pain In The Leg (below The Knee) 03/16/2011 BENI LYNCH, AREN B 72 9.5 Pain In The Leg (below The Knee) 03/16/2011 RANJAN MURILLON, NENO S 729.5 Pain In The Leg (below The Knee) 03/16/2011 KAREN GUTIERREZ PHD 729.5 Pain In The Leg (below The Knee) 03/16/2011 KAREN GUTIERREZ PHD 729.5 Pain In The Leg (below The Knee) 03/16/2011 RANJAN MURILLON, NENO S 729.5 Pain In The Leg (below The Knee) 03/16/2011 RANJAN MURILLON, NENO S 729.5 Pain In The Leg (below The Knee) 03/16/2011 ROBERTO YATES APRN N 729.5 Pain In The Leg (below The Knee) 03/16/2011 RANJAN MURILLON, NENO S 729.5 Pain In The Leg (below The Knee) 03/16/2011 KAREN GTUIERREZ PHD 729.5 Pain In The Leg (below The Knee) 03/16/2011 PRIETO FONSECA APRN 729.5 Pain In The Leg (below The Knee) 03/16/2011 DOUGLAS LEAL MD 729.5 Pain In The Leg (below The Knee) 03/16/2011 KAREN GUTIERREZ PHD 729.5 Pain In The Leg (below The Knee) 03/16/2011 LAURIE VILLAREAL APRN 729 .5 Pain In The Leg (below The Knee) 03/16/2011 RANJAN FRAGOSO, NENO S 729.5 Pain In The Leg (below The Knee) 03/16/2011 DIONNA INSPECTOR PACKAGER, LAURIE 729 .5 Pain In The Leg (below The Knee) 03/16/2011 DIONNA INSPECTOR PACKAGER, LAURIE 729 .5 Pain In The Leg (below The Knee) 03/16/2011 DIONNA INSPECTOR PACKAGER, LAURIE 729 .5 Pain In The Leg (below The Knee) 03/16/2011 OMAR ADORNO APRN 72 9.5 Pain In The Leg (below The Knee) 03/16/2011 DINONA INSPECTOR PACKAGER, LAURIE 729 .5 Pain In The Leg (below The Knee) 03/16/2011 ROSHAN DDSKAITLIN 72 9.5 Pain In The Leg (below The Knee) 03/16/2011 OLGA DDSJULI 72 9.5 Pain In The Leg (below The Knee) 03/16/2011 OLGA GILLESPIESJULI 72 9.5 Pain In The Leg (below The Knee) 03/16/2011 DIONNA INSPECTOR PACKAGER, LAURIE 729 .5 Pain In The Leg (below The Knee) 03/16/2011 BEAR YOUNG DO 729.5 Pain In The Leg (below The Knee) 03/16/2011 MARIAN FRAGOSO, PRIETO R 729.5 Pain In The Leg (below The Knee) 03/16/2011 DIONNA INSPECTOR PACKAGER, LAURIE 729 .5 Pain In The Leg (below The Knee) 03/16/2011 MARIAN FRAGOSO, PRIETO R 729.5 Pain In The Leg (below The Knee) 03/16/2011 MARIAN FRAGOSO, PRIETO R 729.5 Pain In The Leg (below The Knee) 03/16/2011 DOUGLAS LEAL MD 729.5 Pain In The Leg (below The Knee) 03/16/2011 BEAR YOUNG DO K 729.5 Pain In The Leg (below The Knee) 05/05/2011 BEAR YOUNG DO K 289.3 LYMPHADENITIS UNSPECIFIED EXCEPT MESENTERIC 05/05/2011 289.3 LYMP HADENITIS UNSPECIFIED EXCEPT MESENTERIC 05/05/2011 289.3 LYMP HADENITIS UNSPECIFIED EXCEPT MESENTERIC 05/05/2011 HANNAH COFFMAN BEAR K 289.3 LYMPHADENITIS UNSPECIFIED EXCEPT MESENTERIC 05/05/2011 PAU GARCIA APRN 289.3 LYMPHADENITIS UNSPECIFIED EXCEPT MESENTERIC 05/05/2011 289.3 LYMP HADENITIS UNSPECIFIED EXCEPT MESENTERIC 05/05/2011 289.3 Lymp hadenitis Unspecified Except Mesenteric 05/05/2011 289.3 Lymp hadenitis Unspecified Except Mesenteric 05/05/2011 289.3 Lymp hadenitis Unspecified Except Mesenteric 05/05/2011 289.3 Lymp hadenitis Unspecified Except Mesenteric 05/05/2011 289.3 Lymp hadenitis Unspecified Except Mesenteric 05/05/2011 289.3 Lymp hadenitis Unspecified Except Mesenteric 05/05/2011 289.3 Lymp hadenitis Unspecified Except Mesenteric 05/05/2011 289.3 Lymp hadenitis Unspecified Except Mesenteric 05/05/2011 289.3 Lymp hadenitis Unspecified Except Mesenteric 05/05/2011 RANJAN INSPECTOR PACKAGER, NENO S 289.3 Lymphadenitis Unspecified Except Mesenteric 05/05/2011 DOUGLAS LEAL MD 289.3 Lymphadenitis Unspecified Except Mesenteric 05/05/2011 OMAR ADORNO APRN 28 9.3 Lymphadenitis Unspecified Except Mesenteric 05/05/2011 RANJAN INSPECTOR PACKAGER, NENO S 289.3 Lymphadenitis Unspecified Except Mesenteric 05/05/2011 OMAR ADORNO APRN 28 9.3 Lymphadenitis Unspecified Except Mesenteric 05/05/2011 DOUGLAS LEAL MD 289.3 Lymphadenitis Unspecified Except Mesenteric 05/05/2011 BENI LYNCH, AREN B 28 9.3 Lymphadenitis Unspecified Except Mesenteric 05/05/2011 RANJAN INSPECTOR PACKAGER, NENO S 289.3 Lymphadenitis Unspecified Except Mesenteric 05/05/2011 BRENDA PABLO, KAREN Quinn 289.3 Lymphadenitis Unspecified Except Mesenteric 05/05/2011 BRENDA PABLO, KAREN Quinn 289.3 Lymphadenitis Unspecified Except Mesenteric 05/05/2011 RANJAN INSPECTOR PACKAGER, NENO S 289.3 Lymphadenitis Unspecified Except Mesenteric 05/05/2011 RANJAN INSPECTOR PACKAGER, NENO S 289.3 Lymphadenitis Unspecified Except Mesenteric 05/05/2011 MALIKA GUILLEN INSPECTOR PACKAGER, ROBERTO N 289.3 Lymphadenitis Unspecified Except Mesenteric 05/05/2011 RANJAN INSPECTOR PACKAGER, NENO S 289.3 Lymphadenitis Unspecified Except Mesenteric 05/05/2011 BRENDA PABLO, KAREN Quinn 289.3 Lymphadenitis Unspecified Except Mesenteric 05/05/2011 MARIAN INSPECTOR PACKAGER, PRIETO R 289.3 Lymphadenitis Unspecified Except Mesenteric 05/05/2011 DOUGLAS LEAL MD 289.3 Lymphadenitis Unspecified Except Mesenteric 05/05/2011 BRENDA PHD, KAREN Quinn 289.3 Lymphadenitis Unspecified Except Mesenteric 05/05/2011 DIONNA INSPECTOR PACKAGER, LAURIE 289 .3 Lymphadenitis Unspecified Except Mesenteric 05/05/2011 RANJAN INSPECTOR PACKAGER, NENO S 289.3 Lymphadenitis Unspecified Except Mesenteric 05/05/2011 DIONNA INSPECTOR PACKAGER, LAURIE 289 .3 Lymphadenitis Unspecified Except Mesenteric 05/05/2011 DIONNA INSPECTOR PACKAGER, LAURIE 289 .3 Lymphadenitis Unspecified Except Mesenteric 05/05/2011 DIONNA INSPECTOR PACKAGER, LAURIE 289 .3 Lymphadenitis Unspecified Except Mesenteric 05/05/2011 TILA INSPECTOR PACKAGER, OMAR T 28 9.3 Lymphadenitis Unspecified Except Mesenteric 05/05/2011 DIONNA INSPECTOR PACKAGER, LAURIE 289 .3 Lymphadenitis Unspecified Except Mesenteric 05/05/2011 WHITE DDS, KAITLIN J 28 9.3 Lymphadenitis Unspecified Except Mesenteric 05/05/2011 ESPINOZA DDS, JULI 28 9.3 Lymphadenitis Unspecified Except Mesenteric 05/05/2011 ESPINOZA DDS, JULI 28 9.3 Lymphadenitis Unspecified Except Mesenteric 05/05/2011 DIONNA INSPECTOR PACKAGER, LAURIE 289 .3 Lymphadenitis Unspecified Except Mesenteric 05/05/2011 BEAR YOUNG DO K 289.3 Lymphadenitis Unspecified Except Mesenteric 05/05/2011 MARIAN INSPECTOR PACKAGER, PRIETO R 289.3 Lymphadenitis Unspecified Except Mesenteric 05/05/2011 DIONNA INSPECTOR PACKAGER, LAURIE 289 .3 Lymphadenitis Unspecified Except Mesenteric 05/05/2011 MARIAN INSPECTOR PACKAGER, PRIETO R 289.3 Lymphadenitis Unspecified Except Mesenteric 05/05/2011 MARIAN INSPECTOR PACKAGER, PRIETO R 289.3 Lymphadenitis Unspecified Except Mesenteric 05/05/2011 DOUGLAS LEAL MD 289.3 Lymphadenitis Unspecified Except Mesenteric 05/05/2011 BEAR YOUNG DO K 289.3 Lymphadenitis Unspecified Except Mesenteric 05/12/2011 KENDY YOUNG DOA K 307.42 PERSISTENT DISORDER OF INITIATING OR MAINTAINING SLEEP 05/12/2011 307.42 PER SISTENT DISORDER OF INITIATING OR MAINTAINING SLEEP 05/12/2011 307.42 PER SISTENT DISORDER OF INITIATING OR MAINTAINING SLEEP 05/12/2011 BEAR YOUNG DO 307.42 PERSISTENT DISORDER OF INITIATING OR MAINTAINING SLEEP 05/12/2011 PAU GARCIA APRN 307.42 PERSISTENT DISORDER OF INITIATING OR MAINTAINING SLEEP 05/12/2011 307.42 PER SISTENT DISORDER OF INITIATING OR MAINTAINING SLEEP 05/12/2011 307.42 Per sistent Disorder Of Initiating Or Maintaining Sleep 05/12/2011 307.42 Per sistent Disorder Of Initiating Or Maintaining Sleep 05/12/2011 307.42 Per sistent Disorder Of Initiating Or Maintaining Sleep 05/12/2011 307.42 Per sistent Disorder Of Initiating Or Maintaining Sleep 05/12/2011 307.42 Per sistent Disorder Of Initiating Or Maintaining Sleep 05/12/2011 307.42 Per sistent Disorder Of Initiating Or Maintaining Sleep 05/12/2011 307.42 Per sistent Disorder Of Initiating Or Maintaining Sleep 05/12/2011 307.42 Per sistent Disorder Of Initiating Or Maintaining Sleep 05/12/2011 307.42 Per sistent Disorder Of Initiating Or Maintaining Sleep 05/12/2011 NENO WOODRUFF APRN S 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 05/12/2011 DOUGLAS LEAL MD 307.4 2 Persistent Disorder Of Initiating Or Maintaining Sleep 05/12/2011 OMAR ADORNO APRN 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 05/12/2011 NENO WOODRUFF APRN S 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 05/12/2011 OMAR ADORNO APRN 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 05/12/2011 DOUGLAS LEAL MD 307.4 2 Persistent Disorder Of Initiating Or Maintaining Sleep 05/12/2011 BENI LYNCH, AREN [place] 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 05/12/2011 NENO WOODRUFF APRN S 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 05/12/2011 BRENDA PHD, KAREN Quinn 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 05/12/2011 BRENDA PHD, KAREN Quinn 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 05/12/2011 NENO WOODRUFF APRN S 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 05/12/2011 NENO WODORUFF APRN S 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 05/12/2011 ROBERTO YATES APRN 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 05/12/2011 NENO WOODRUFF APRN S 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 05/12/2011 BRENDA PABLO, KAREN Quinn 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 05/12/2011 MARIAN FRAGOSO, PRIETO R 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 05/12/2011 DOUGLAS LEAL MD 307.4 2 Persistent Disorder Of Initiating Or Maintaining Sleep 05/12/2011 BRENDA PABLO, KAREN Quinn 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 05/12/2011 DIONNA INSPECTOR PACKAGER, LAURIE 307 .42 Persistent Disorder Of Initiating Or Maintaining Sleep 05/12/2011 NENO WOODRUFF APRN S 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 05/12/2011 DIONNA FRAGOSO LAURIE 307 .42 Persistent Disorder Of Initiating Or Maintaining Sleep 05/12/2011 DIONNA FRAGOSO LAURIE 307 .42 Persistent Disorder Of Initiating Or Maintaining Sleep 05/12/2011 DIONNA FRAGOSO LAURIE 307 .42 Persistent Disorder Of Initiating Or Maintaining Sleep 05/12/2011 OMAR ADORNO APRN 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 05/12/2011 DIONNA FRAGOSO LAURIE 307 .42 Persistent Disorder Of Initiating Or Maintaining Sleep 05/12/2011 KAITLIN ISLAS DDS 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 05/12/2011 JULI ESPINOZA DDS 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 05/12/2011 JULI ESPINOZA DDS 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 05/12/2011 DIONNA INSPECTOR PACKAGER, LAURIE 307 .42 Persistent Disorder Of Initiating Or Maintaining Sleep 05/12/2011 BEAR YOUNG DO 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 05/12/2011 MARIAN INSPECTOR PACKAGER, PRIETO R 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 05/12/2011 DIONNA INSPECTOR PACKAGER LAURIE 307 .42 Persistent Disorder Of Initiating Or Maintaining Sleep 05/12/2011 MARIAN INSPECTOR PACKAGER, PRIETO R 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 05/12/2011 MARIAN INSPECTOR PACKAGER, PRIETO R 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 05/12/2011 DOUGLAS LEAL MD 307.4 2 Persistent Disorder Of Initiating Or Maintaining Sleep 05/12/2011 BEAR YOUNG DO 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 05/25/2011 BEAR YOUNG DO 535.00 ACUTE GASTRITIS (WITHOUT HEMORRHAGE) 05/25/2011 535.00 ACU TE GASTRITIS (WITHOUT HEMORRHAGE) 05/25/2011 535.00 ACU TE GASTRITIS (WITHOUT HEMORRHAGE) 05/25/2011 BEAR YOUNG DO 535.00 ACUTE GASTRITIS (WITHOUT HEMORRHAGE) 05/25/2011 PAU GARCIA APRN 535.00 ACUTE GASTRITIS (WITHOUT HEMORRHAGE) 05/25/2011 535.00 ACU TE GASTRITIS (WITHOUT HEMORRHAGE) 05/25/2011 535.00 Acu te Gastritis (without Hemorrhage) 05/25/2011 535.00 Acu te Gastritis (without Hemorrhage) 05/25/2011 535.00 Acu te Gastritis (without Hemorrhage) 05/25/2011 535.00 Acu te Gastritis (without Hemorrhage) 05/25/2011 535.00 Acu te Gastritis (without Hemorrhage) 05/25/2011 535.00 Acu te Gastritis (without Hemorrhage) 05/25/2011 535.00 Acu te Gastritis (without Hemorrhage) 05/25/2011 535.00 Acu te Gastritis (without Hemorrhage) 05/25/2011 535.00 Acu te Gastritis (without Hemorrhage) 05/25/2011 NENO WOODRUFF APRN S 535.00 Acute Gastritis (without Hemorrhage) 05/25/2011 DOUGLAS LEAL MD 535.0 0 Acute Gastritis (without Hemorrhage) 05/25/2011 OMAR ADORNO APRN 535.00 Acute Gastritis (without Hemorrhage) 05/25/2011 NENO WOODRUFF APRN S 535.00 Acute Gastritis (without Hemorrhage) 05/25/2011 OMAR ADORNO APRN 535.00 Acute Gastritis (without Hemorrhage) 05/25/2011 DOUGLAS LEAL MD 535.0 0 Acute Gastritis (without Hemorrhage) 05/25/2011 AREN BAZAN LCPC 535.00 Acute Gastritis (without Hemorrhage) 05/25/2011 NENO WOODRUFF APRN S 535.00 Acute Gastritis (without Hemorrhage) 05/25/2011 KAREN GUTIERREZ PHD 535.00 Acute Gastritis (without Hemorrhage) 05/25/2011 KAREN GUTIERREZ PHD 535.00 Acute Gastritis (without Hemorrhage) 05/25/2011 RANJAN MURILLON, NENO S 535.00 Acute Gastritis (without Hemorrhage) 05/25/2011 RANJAN FRAGOSO, NENO S 535.00 Acute Gastritis (without Hemorrhage) 05/25/2011 ROBERTO YATES APRN 535.00 Acute Gastritis (without Hemorrhage) 05/25/2011 RANJAN FRAGOSO, NENO S 535.00 Acute Gastritis (without Hemorrhage) 05/25/2011 KAREN GUTIERREZ PHD 535.00 Acute Gastritis (without Hemorrhage) 05/25/2011 PRIETO FONSECA APRN R 535.00 Acute Gastritis (without Hemorrhage) 05/25/2011 DOUGLAS LEAL MD 535.0 0 Acute Gastritis (without Hemorrhage) 05/25/2011 BRENDA PABLO, KAREN Quinn 535.00 Acute Gastritis (without Hemorrhage) 05/25/2011 DIONNA INSPECTOR PACKAGER, LAURIE 535 .00 Acute Gastritis (without Hemorrhage) 05/25/2011 RANJAN FRAGOSO, NENO S 535.00 Acute Gastritis (without Hemorrhage) 05/25/2011 DIONNA FRAGOSO, LAURIE 535 .00 Acute Gastritis (without Hemorrhage) 05/25/2011 DIONNA FRAGOSO, LAURIE 535 .00 Acute Gastritis (without Hemorrhage) 05/25/2011 DIONNA FRAGOSO LAURIE 535 .00 Acute Gastritis (without Hemorrhage) 05/25/2011 OMAR ADORNO APRN 535.00 Acute Gastritis (without Hemorrhage) 05/25/2011 DIONNA FRAGOSO, LAURIE 535 .00 Acute Gastritis (without Hemorrhage) 05/25/2011 KAITLIN ISLAS DDS 535.00 Acute Gastritis (without Hemorrhage) 05/25/2011 JULI ESPINOZA DDS 535.00 Acute Gastritis (without Hemorrhage) 05/25/2011 JULI ESPINOZA DDS 535.00 Acute Gastritis (without Hemorrhage) 05/25/2011 DIONNA FRAGOSO LAURIE 535 .00 Acute Gastritis (without Hemorrhage) 05/25/2011 BEAR YOUNG DO 535.00 Acute Gastritis (without Hemorrhage) 05/25/2011 ENOCH FONSECA APRNINA R 535.00 Acute Gastritis (without Hemorrhage) 05/25/2011 DIONNA FRAGOSO LAURIE 535 .00 Acute Gastritis (without Hemorrhage) 05/25/2011 PRIETO FONSECA APRN R 535.00 Acute Gastritis (without Hemorrhage) 05/25/2011 PRIETO FONSECA APRN 535.00 Acute Gastritis (without Hemorrhage) 05/25/2011 MEL JOYCE, DOUGLAS 535.0 0 Acute Gastritis (without Hemorrhage) 05/25/2011 BEAR YOUNG DO 535.00 Acute Gastritis (without Hemorrhage) 05/29/2011 Ot 789.00 ABD OMINAL PAIN, UNSPECIFIED SITE 05/29/2011 Ot 790.6 ABN BLOOD CHEMISTRY NEC 06/29/2011 Ot 923.20 CON TUSION OF HAND(S) 06/29/2011 Ot 959.4 HAND INJURY NOS 06/29/2011 Ot E000.8 OTH ER EXTERNAL CAUSE STATUS 06/29/2011 Ot E849.0 ACC IDENT IN HOME 06/29/2011 Ot 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 07/05/2011 BEAR YOUNG DO 466.0 BRONCHITIS, ACUTE 07/05/2011 BEAR YOUNG DO V65.42 COUNSELING - SMOKING CESSATION 07/05/2011 466.0 BRON CHITIS, ACUTE 07/05/2011 V65.42 COU NSELING - SMOKING CESSATION 07/05/2011 466.0 BRON CHITIS, ACUTE 07/05/2011 V65.42 COU NSELING - SMOKING CESSATION 07/05/2011 BEAR YOUNG DO 466.0 BRONCHITIS, ACUTE 07/05/2011 BEAR YOUNG DO V65.42 COUNSELING - SMOKING CESSATION 07/05/2011 PAU GARCIA APRN 466.0 BRONCHITIS, ACUTE 07/05/2011 PAU GARCIA APRN V65.42 COUNSELING - SMOKING CESSATION 07/05/2011 466.0 BRON CHITIS, ACUTE 07/05/2011 V65.42 COU NSELING - SMOKING CESSATION 07/05/2011 466.0 Bron chitis, Acute 07/05/2011 V65.42 Cou nseling - Smoking Cessation 07/05/2011 466.0 Bron chitis, Acute 07/05/2011 V65.42 Cou nseling - Smoking Cessation 07/05/2011 466.0 Bron chitis, Acute 07/05/2011 V65.42 Cou nseling - Smoking Cessation 07/05/2011 466.0 Bron chitis, Acute 07/05/2011 V65.42 Cou nseling - Smoking Cessation 07/05/2011 466.0 Bron chitis, Acute 07/05/2011 V65.42 Cou nseling - Smoking Cessation 07/05/2011 466.0 Bron chitis, Acute 07/05/2011 V65.42 Cou nseling - Smoking Cessation 07/05/2011 466.0 Bron chitis, Acute 07/05/2011 V65.42 Cou nseling - Smoking Cessation 07/05/2011 466.0 Bron chitis, Acute 07/05/2011 V65.42 Cou nseling - Smoking Cessation 07/05/2011 466.0 Bron chitis, Acute 07/05/2011 V65.42 Cou nseling - Smoking Cessation 07/05/2011 RANJAN FRAGOSO NENO S 466.0 Bronchitis, Acute 07/05/2011 RANJAN FRAGOSO NENO S V65.42 Counseling - Smoking Cessation 07/05/2011 DOUGLAS LEAL MD 466.0 Bronchitis, Acute 07/05/2011 DOUGLAS LEAL MD V65.4 2 Counseling - Smoking Cessation 07/05/2011 OMAR ADORNO APRN 46 6.0 Bronchitis, Acute 07/05/2011 OMAR ADORNO APRN V65.42 Counseling - Smoking Cessation 07/05/2011 YUKI WOODRUFF APRNA S 466.0 Bronchitis, Acute 07/05/2011 KATIE WOODRUFF APRNNDA S V65.42 Counseling - Smoking Cessation 07/05/2011 OMAR ADORNO APRN 46 6.0 Bronchitis, Acute 07/05/2011 OMAR ADORNO APRN V65.42 Counseling - Smoking Cessation 07/05/2011 DOUGLAS LEAL MD 466.0 Bronchitis, Acute 07/05/2011 DOUGLAS LEAL MD V65.4 2 Counseling - Smoking Cessation 07/05/2011 CARMEN BAZAN LCPCLEY B 46 6.0 Bronchitis, Acute 07/05/2011 BENI LYNCH, AREN B V65.42 Counseling - Smoking Cessation 07/05/2011 RANJAN FRAGOSO NENO S 466.0 Bronchitis, Acute 07/05/2011 RANJAN FRAGOSO NENO S V65.42 Counseling - Smoking Cessation 07/05/2011 BRENDA PABLO, KAREN Quinn 466.0 Bronchitis, Acute 07/05/2011 BRENDA PABLO, KAREN Quinn V65.42 Counseling - Smoking Cessation 07/05/2011 BRENDA PABLO, KAREN Quinn 466.0 Bronchitis, Acute 07/05/2011 BRENDA PABLO, KAREN Quinn V65.42 Counseling - Smoking Cessation 07/05/2011 RANJAN INSPECTOR PACKAGER, NENO S 466.0 Bronchitis, Acute 07/05/2011 RANJAN INSPECTOR PACKAGER, NENO S V65.42 Counseling - Smoking Cessation 07/05/2011 RANJAN INSPECTOR PACKAGER, NENO S 466.0 Bronchitis, Acute 07/05/2011 RANJAN INSPECTOR PACKAGER, NENO S V65.42 Counseling - Smoking Cessation 07/05/2011 DALY CASHERO INSPECTOR PACKAGER, ROBERTO N 466.0 Bronchitis, Acute 07/05/2011 DALY CASHERO INSPECTOR PACKAGER, ROBERTO N V65.42 Counseling - Smoking Cessation 07/05/2011 RANJAN INSPECTOR PACKAGER, NENO S 466.0 Bronchitis, Acute 07/05/2011 RANJAN INSPECTOR PACKAGER, NENO S V65.42 Counseling - Smoking Cessation 07/05/2011 BRENDA PABLO, KAERN Quinn 466.0 Bronchitis, Acute 07/05/2011 BRENDA PABLO, KAREN Quinn V65.42 Counseling - Smoking Cessation 07/05/2011 MARIAN INSPECTOR PACKAGER, PRIETO R 466.0 Bronchitis, Acute 07/05/2011 MARIAN INSPECTOR PACKAGER, PRIETO R V65.42 Counseling - Smoking Cessation 07/05/2011 MEL JOYCE, DOUGLAS 466.0 Bronchitis, Acute 07/05/2011 DOUGLAS LEAL MD V65.4 2 Counseling - Smoking Cessation 07/05/2011 BRENDA PABLO, KAREN Quinn 466.0 Bronchitis, Acute 07/05/2011 BRENDA PABLO, KAREN Quinn V65.42 Counseling - Smoking Cessation 07/05/2011 DIONNA INSPECTOR PACKAGER, LAURIE 466 .0 Bronchitis, Acute 07/05/2011 DIONNA INSPECTOR PACKAGER, LAURIE V65 .42 Counseling - Smoking Cessation 07/05/2011 RANJAN INSPECTOR PACKAGER, NENO S 466.0 Bronchitis, Acute 07/05/2011 RANJAN INSPECTOR PACKAGER, NENO S V65.42 Counseling - Smoking Cessation 07/05/2011 DIONNA INSPECTOR PACKAGER, LAURIE 466 .0 Bronchitis, Acute 07/05/2011 DIONNA INSPECTOR PACKAGER, LAURIE V65 .42 Counseling - Smoking Cessation 07/05/2011 DIONNA INSPECTOR PACKAGER, LAURIE 466 .0 Bronchitis, Acute 07/05/2011 DIONNA INSPECTOR PACKAGER, LAURIE V65 .42 Counseling - Smoking Cessation 07/05/2011 DIONNA INSPECTOR PACKAGER, LAURIE 466 .0 Bronchitis, Acute 07/05/2011 DIONNA INSPECTOR PACKAGER, LAURIE V65 .42 Counseling - Smoking Cessation 07/05/2011 TILA FRAGOSO, OMAR T 46 6.0 Bronchitis, Acute 07/05/2011 TILA INSPECTOR PACKAGER, OMAR T V65.42 Counseling - Smoking Cessation 07/05/2011 DIONNA INSPECTOR PACKAGER, LAURIE 466 .0 Bronchitis, Acute 07/05/2011 DIONNA INSPECTOR PACKAGER, LAURIE V65 .42 Counseling - Smoking Cessation 07/05/2011 WHITE DDS, KAITLIN J 46 6.0 Bronchitis, Acute 07/05/2011 WHITE DDS, KAITLIN J V65.42 Counseling - Smoking Cessation 07/05/2011 ESPINOZA DDS, JULI 46 6.0 Bronchitis, Acute 07/05/2011 ESPINOZA DDS, JULI V65.42 Counseling - Smoking Cessation 07/05/2011 ESPINOZA DDS, JULI 46 6.0 Bronchitis, Acute 07/05/2011 ESPINOZA DDS, JULI V65.42 Counseling - Smoking Cessation 07/05/2011 DIONNA INSPECTOR PACKAGER, LAURIE 466 .0 Bronchitis, Acute 07/05/2011 DIONNA INSPECTOR PACKAGER, LAURIE V65 .42 Counseling - Smoking Cessation 07/05/2011 YOUNG DO, BEAR K 466.0 Bronchitis, Acute 07/05/2011 YOUNG DO, BEAR K V65.42 Counseling - Smoking Cessation 07/05/2011 MARIAN INSPECTOR PACKAGER, PRIETO R 466.0 Bronchitis, Acute 07/05/2011 MARIAN FRAGOSO, PRIETO R V65.42 Counseling - Smoking Cessation 07/05/2011 DIONNA INSPECTOR PACKAGER, LAURIE 466 .0 Bronchitis, Acute 07/05/2011 DIONNA INSPECTOR PACKAGER, LAURIE V65 .42 Counseling - Smoking Cessation 07/05/2011 MARIAN INSPECTOR PACKAGER, PRIETO R 466.0 Bronchitis, Acute 07/05/2011 MARIAN INSPECTOR PACKAGER, PRIETO R V65.42 Counseling - Smoking Cessation 07/05/2011 MARIAN INSPECTOR PACKAGER, PRIETO R 466.0 Bronchitis, Acute 07/05/2011 MARIAN INSPECTOR PACKAGER, PRIETO R V65.42 Counseling - Smoking Cessation 07/05/2011 DOUGLAS LEAL MD 466.0 Bronchitis, Acute 07/05/2011 DOUGLAS LEAL MD V65.4 2 Counseling - Smoking Cessation 07/05/2011 HANNAH COFFMANBEAR K 466.0 Bronchitis, Acute 07/05/2011 HANNAH COFFMAN BEAR K V65.42 Counseling - Smoking Cessation 10/05/2011 HANNAH COFFMAN BEAR K 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 10/05/2011 726.32 LAT ERAL EPICONDYLITIS [place]ION 10/05/2011 726.32 LAT ERAL EPICONDYLITIS [place] REGION 10/05/2011 HANNAH COFFMAN BEAR K 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 10/05/2011 PAU GARCIA APRN 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 10/05/2011 726.32 LAT ERAL EPICONDYLITIS ELB[place] REGION 10/05/2011 726.32 Lat eral Epicondylitis [place] Region 10/05/2011 726.32 Lat eral Epicondylitis [place] Region 10/05/2011 726.32 Lat eral Epicondylitis [place] Region 10/05/2011 726.32 Lat eral Epicondylitis [place] Region 10/05/2011 726.32 Lat eral Epicondylitis [place] Region 10/05/2011 726.32 Lat eral Epicondylitis [place] Region 10/05/2011 726.32 Lat eral Epicondylitis [place] Region 10/05/2011 726.32 Lat eral Epicondylitis [place] Region 10/05/2011 726.32 Lat eral Epicondylitis [place] Region 10/05/2011 NENO WOODRUFF APRN S 726.32 Lateral Epicondylitis [place]bow Region 10/05/2011 DOUGLAS LEAL MD 726.3 2 Lateral Epicondylitis [place] Region 10/05/2011 OMAR ADORNO APRN 726.32 Lateral Epicondylitis [place] Region 10/05/2011 NENO WOODRUFF APRN S 726.32 Lateral Epicondylitis [place] Region 10/05/2011 OMAR ADORNO APRN 726.32 Lateral Epicondylitis [place] Region 10/05/2011 DOUGLAS LEAL MD 726.3 2 Lateral Epicondylitis [place] Region 10/05/2011 AREN BAZAN LCPC 726.32 Lateral Epicondylitis [place] Region 10/05/2011 NENO WOODRUFF APRN S 726.32 Lateral Epicondylitis [place] Region 10/05/2011 BRENDA PABLO, KAREN Quinn 726.32 Lateral Epicondylitis [place] Region 10/05/2011 BRENDA PHD, KAREN Quinn 726.32 Lateral Epicondylitis [place] 10/05/2011 RANJAN FRAGOSO, NENO S 726.32 Lateral Epicondylitis [place] Region 10/05/2011 RANJAN FRAGOSO, NENO S 726.32 Lateral Epicondylitis [place] Region 10/05/2011 ROBERTO YATES APRN 726.32 Lateral Epicondylitis [place] Region 10/05/2011 RANJAN FRAGOSO, NENO S 726.32 Lateral Epicondylitis [place] Region 10/05/2011 BRENDA PHD, KAREN Quinn 726.32 Lateral Epicondylitis [place] Region 10/05/2011 PRIETO FONSECA APRN R 726.32 Lateral Epicondylitis [place] Region 10/05/2011 MEL JOYCE, DOULGAS 726.3 2 Lateral Epicondylitis [place] Region 10/05/2011 BRENDA PABLO, KAREN Quinn 726.32 Lateral Epicondylitis [place] Region 10/05/2011 DIONNA FRAGOSO, LAURIE 726 .32 Lateral Epicondylitis [place] Region 10/05/2011 RANJAN FRAGOSO, NENO S 726.32 Lateral Epicondylitis [place] Region 10/05/2011 DIONNA FRAGOSO LAURIE 726 .32 Lateral Epicondylitis [place] Region 10/05/2011 DIONNA FRAGOSO LAURIE 726 .32 Lateral Epicondylitis [place] Region 10/05/2011 DIONNA FRAGOSO, LAURIE 726 .32 Lateral Epicondylitis [place] Region 10/05/2011 OMAR ADORNO APRN 726.32 Lateral Epicondylitis [place] Region 10/05/2011 DIONNA FRAGOSO LAURIE 726 .32 Lateral Epicondylitis [place] Region 10/05/2011 KAITLIN ISLAS DDS 726.32 Lateral Epicondylitis [place] Region 10/05/2011 JULI ESPINOZA DDS 726.32 Lateral Epicondylitis [place] Region 10/05/2011 JULI ESPINOZA DDS 726.32 Lateral Epicondylitis [place] Region 10/05/2011 DIONNA FRAGOSO LAURIE 726 .32 Lateral Epicondylitis [place] Region 10/05/2011 BEAR YOUNG DO 726.32 Lateral Epicondylitis [place] 10/05/2011 MARIAN FRAGOSO, PRIETO R 726.32 Lateral Epicondylitis [place] Region 10/05/2011 LAURIE VILLAREAL APRN 726 .32 Lateral Epicondylitis [place] Region 10/05/2011 MARIAN FRAGOSO, PRIETO R 726.32 Lateral Epicondylitis [place] Region 10/05/2011 MARIAN FRAGOSO, PRIETO R 726.32 Lateral Epicondylitis [place] Region 10/05/2011 DOUGLAS LEAL MD 726.3 2 Lateral Epicondylitis [place] Region 10/05/2011 BEAR YOUNG DO K 726.32 Lateral Epicondylitis [place] Region 12/16/2011 BEAR YOUNG DO K 782.1 RASH 12/16/2011 782.1 RASH 12/16/2011 782.1 RASH 12/16/2011 BEAR YOUNG DO K 782.1 RASH 12/16/2011 PAU GARCIA APRN R 782.1 RASH 12/16/2011 782.1 RASH 12/16/2011 782.1 Rash 12/16/2011 782.1 Rash 12/16/2011 782.1 Rash 12/16/2011 782.1 Rash 12/16/2011 782.1 Rash 12/16/2011 782.1 Rash 12/16/2011 782.1 Rash 12/16/2011 782.1 Rash 12/16/2011 782.1 Rash 12/16/2011 NENO WOODRUFF APRN S 782.1 Rash 12/16/2011 DOUGLAS LEAL MD 782.1 Rash 12/16/2011 OMAR ADORNO APRN 78 2.1 Rash 12/16/2011 NENO WOODRUFF APRN S 782.1 Rash 12/16/2011 OMAR ADORNO APRN 78 2.1 Rash 12/16/2011 DOUGLAS LEAL MD 782.1 Rash 12/16/2011 BENI INSULATION NOZZLEMANAREN GOEL 78 2.1 Rash 12/16/2011 NENO WOODRUFF APRN S 782.1 Rash 12/16/2011 BRENDA PHD, KAREN Quinn 782.1 Rash 12/16/2011 BRENDA PHD, KAREN Quinn 782.1 Rash 12/16/2011 YUKI WOODRUFF APRNA S 782.1 Rash 12/16/2011 YUKI WOODRUFF APRNA S 782.1 Rash 12/16/2011 MALIKA GUILLEN INSPECTOR PACKAGER, ROBERTO N 782.1 Rash 12/16/2011 RANJAN FRAGOSO, NENO S 782.1 Rash 12/16/2011 BRENDA PHD, KAREN Quinn 782.1 Rash 12/16/2011 MARIAN INSPECTOR PACKAGER, PRIETO R 782.1 Rash 12/16/2011 DOUGLAS LEAL MD 782.1 Rash 12/16/2011 BRENDA PHD, KAREN Quinn 782.1 Rash 12/16/2011 DIONNA INSPECTOR PACKAGER, LAURIE 782 .1 Rash 12/16/2011 RANJAN FRAGOSO, NENO S 782.1 Rash 12/16/2011 DIONNA INSPECTOR PACKAGER, LAURIE 782 .1 Rash 12/16/2011 DIONNA INSPECTOR PACKAGER, LAURIE 782 .1 Rash 12/16/2011 DIONNA INSPECTOR PACKAGER, LAURIE 782 .1 Rash 12/16/2011 OMAR ADORNO APRN 78 2.1 Rash 12/16/2011 DIONNA INSPECTOR PACKAGER, LAURIE 782 .1 Rash 12/16/2011 WHITE DDS, KAITLIN J 78 2.1 Rash 12/16/2011 ESPINOZA DDS, JULI 78 2.1 Rash 12/16/2011 ESPINOZA DDS, JULI 78 2.1 Rash 12/16/2011 DIONNA INSPECTOR PACKAGER, LAURIE 782 .1 Rash 12/16/2011 HANNAH COFFMAN BEAR K 782.1 Rash 12/16/2011 MARIAN INSPECTOR PACKAGER, PRIETO R 782.1 Rash 12/16/2011 DIONNA INSPECTOR PACKAGER, LAURIE 782 .1 Rash 12/16/2011 MARIAN FRAGOSO, PRIETO R 782.1 Rash 12/16/2011 MARIAN INSPECTOR PACKAGER, PRIETO R 782.1 Rash 12/16/2011 DOUGLAS LEAL MD 782.1 Rash 12/16/2011 HANNAH COFFMAN BEAR K 782.1 Rash 03/03/2012 BEAR YOUNG DO K 462 PHARYNGITIS 03/03/2012 KENDY YOUNG DOA K 784.49 HOARSENESS 03/03/2012 KENDY YOUNG DOA K 786.2 cough 03/03/2012 KENDY YOUNG DOA K 788.41 URINARY FREQUENCY 03/03/2012 462 PHARYN GITIS 03/03/2012 784.49 EPHRAIM RSENESS 03/03/2012 786.2 cough 03/03/2012 788.41 URI NARY FREQUENCY 03/03/2012 462 PHARYN GITIS 03/03/2012 784.49 EPHRAIM RSENESS 03/03/2012 786.2 cough 03/03/2012 788.41 URI NARY FREQUENCY 03/03/2012 YOUNG DO, BEAR K 462 PHARYNGITIS 03/03/2012 YOUNG DO, BEAR K 784.49 HOARSENESS 03/03/2012 YOUNG DO, BEAR K 786.2 cough 03/03/2012 YOUNG DO, BEAR K 788.41 URINARY FREQUENCY 03/03/2012 JOSE INSPECTOR PACKAGER, PAU R 462 PHARYNGITIS 03/03/2012 JOSE INSPECTOR PACKAGER, PAU R 784.49 HOARSENESS 03/03/2012 JOSE INSPECTOR PACKAGER, PAU R 786.2 cough 03/03/2012 JOSE INSPECTOR PACKAGER, PAU R 788.41 URINARY FREQUENCY 03/03/2012 462 PHARYN GITIS 03/03/2012 784.49 EPHRAIM RSENESS 03/03/2012 786.2 cough 03/03/2012 788.41 URI NARY FREQUENCY 03/03/2012 462 Pharyn gitis 03/03/2012 784.49 Ephraim rseness 03/03/2012 786.2 Cough 03/03/2012 788.41 Uri nary Frequency 03/03/2012 462 Pharyn gitis 03/03/2012 784.49 Ephraim rseness 03/03/2012 786.2 Cough 03/03/2012 788.41 Uri nary Frequency 03/03/2012 462 Pharyn gitis 03/03/2012 784.49 Ephraim rseness 03/03/2012 786.2 Cough 03/03/2012 788.41 Uri nary Frequency 03/03/2012 462 Pharyn gitis 03/03/2012 784.49 Ephraim rseness 03/03/2012 786.2 Cough 03/03/2012 788.41 Uri nary Frequency 03/03/2012 462 Pharyn gitis 03/03/2012 784.49 Ephraim rseness 03/03/2012 786.2 Cough 03/03/2012 788.41 Uri nary Frequency 03/03/2012 462 Pharyn gitis 03/03/2012 784.49 Ephraim rseness 03/03/2012 786.2 Cough 03/03/2012 788.41 Uri nary Frequency 03/03/2012 462 Pharyn gitis 03/03/2012 784.49 Ephraim rseness 03/03/2012 786.2 Cough 03/03/2012 788.41 Uri nary Frequency 03/03/2012 462 Pharyn gitis 03/03/2012 784.49 Ephraim rseness 03/03/2012 786.2 Cough 03/03/2012 788.41 Uri nary Frequency 03/03/2012 462 Pharyn gitis 03/03/2012 784.49 Ephraim rseness 03/03/2012 786.2 Cough 03/03/2012 788.41 Uri nary Frequency 03/03/2012 KATIE WOODRUFF APRNNDA S 462 Pharyngitis 03/03/2012 KATIE WOODRUFF APRNNDA S 784.49 Hoarseness 03/03/2012 KATIE WOODRUFF APRNNDA S 786.2 Cough 03/03/2012 KATIE WOODRUFF APRNNDA S 788.41 Urinary Frequency 03/03/2012 DOUGLAS LEAL MD 462 Pharyngitis 03/03/2012 DOUGLAS LEAL MD 784.4 9 Hoarseness 03/03/2012 DOUGLAS LEAL MD 786.2 Cough 03/03/2012 DOUGLAS LEAL MD 788.4 1 Urinary Frequency 03/03/2012 OMAR ADORNO APRN 46 2 Pharyngitis 03/03/2012 OMAR ADORNO APRN 784.49 Hoarseness 03/03/2012 MOAR ADORNO APRN T 78 6.2 Cough 03/03/2012 OMAR ADORNO APRN 788.41 Urinary Frequency 03/03/2012 KATIE WOODRUFF APRNNDA S 462 Pharyngitis 03/03/2012 RANJAN FRAGOSO NENO S 784.49 Hoarseness 03/03/2012 KATIE WOODRUFF APRNNDA S 786.2 Cough 03/03/2012 RANJAN FRAGOSO NENO S 788.41 Urinary Frequency 03/03/2012 OMAR ADORNO APRN T 46 2 Pharyngitis 03/03/2012 OMAR ADORNO APRN T 784.49 Hoarseness 03/03/2012 ITLA FRAGOSO, OMAR T 78 6.2 Cough 03/03/2012 TILA FOUZIA, OMAR T 788.41 Urinary Frequency 03/03/2012 DOUGLAS LEAL MD 462 Pharyngitis 03/03/2012 DOUGLAS LEAL MD 784.4 9 Hoarseness 03/03/2012 DOUGLAS LEAL MD 786.2 Cough 03/03/2012 DOUGLAS LEAL MD 788.4 1 Urinary Frequency 03/03/2012 BENI INSULATION NOZZLEMAN, AREN B 46 2 Pharyngitis 03/03/2012 BENI INSULATION NOZZLEMAN, AREN B 784.49 Hoarseness 03/03/2012 BENI INSULATION NOZZLEMAN, AREN B 78 6.2 Cough 03/03/2012 BENI INSULATION NOZZLEMAN, AREN B 788.41 Urinary Frequency 03/03/2012 RANJAN FRAGOSO, NENO S 462 Pharyngitis 03/03/2012 RANJAN FRAGOSO, NENO S 784.49 Hoarseness 03/03/2012 RANJAN FRAGOSO, NENO S 786.2 Cough 03/03/2012 RANJAN FRAGOSO, NENO S 788.41 Urinary Frequency 03/03/2012 KAREN GUTIERREZ PHD 462 Pharyngitis 03/03/2012 BRENDA PABLO, KAREN Quinn 784.49 Hoarseness 03/03/2012 BRENDA PABLO, KAREN Quinn 786.2 Cough 03/03/2012 KAREN GUTIERREZ PHD 788.41 Urinary Frequency 03/03/2012 KAREN GUTIERREZ PHD 462 Pharyngitis 03/03/2012 BRENDA PABLO, KAREN Quinn 784.49 Hoarseness 03/03/2012 BRENDA PHD, KAREN Quinn 786.2 Cough 03/03/2012 BRENDA PABLO, KAREN Quinn 788.41 Urinary Frequency 03/03/2012 RANJAN FRAGOSO, NENO S 462 Pharyngitis 03/03/2012 RANJAN FRAGOSO, NENO S 784.49 Hoarseness 03/03/2012 RANJAN FRAGOSO, NENO S 786.2 Cough 03/03/2012 RANJAN INSPECTOR PACKAGER, NENO S 788.41 Urinary Frequency 03/03/2012 RANJAN INSPECTOR PACKAGER, NENO S 462 Pharyngitis 03/03/2012 RANJAN INSPECTOR PACKAGER, NENO S 784.49 Hoarseness 03/03/2012 RANJAN INSPECTOR PACKAGER, NENO S 786.2 Cough 03/03/2012 RANJAN INSPECTOR PACKAGER, NENO S 788.41 Urinary Frequency 03/03/2012 DALY CASHERO INSPECTOR PACKAGER, ROBERTO N 462 Pharyngitis 03/03/2012 DALY CASHERO INSPECTOR PACKAGER, ROBERTO N 784.49 Hoarseness 03/03/2012 DALY CASHERO INSPECTOR PACKAGER, ROBERTO N 786.2 Cough 03/03/2012 DALY CASHERO INSPECTOR PACKAGER, ROBERTO N 788.41 Urinary Frequency 03/03/2012 RANJAN INSPECTOR PACKAGER, NENO S 462 Pharyngitis 03/03/2012 RANJAN INSPECTOR PACKAGER, NENO S 784.49 Hoarseness 03/03/2012 RANJAN INSPECTOR PACKAGER, NENO S 786.2 Cough 03/03/2012 RANJAN INSPECTOR PACKAGER, NENO S 788.41 Urinary Frequency 03/03/2012 BRENDA PHD, KAREN Quinn 462 Pharyngitis 03/03/2012 BRENDA PABLO, KAREN Quinn 784.49 Hoarseness 03/03/2012 BRENDA PABLO, KAREN Quinn 786.2 Cough 03/03/2012 BRENDA PABLO, KAREN Quinn 788.41 Urinary Frequency 03/03/2012 MARIAN INSPECTOR PACKAGER, PRIETO R 4 62 Pharyngitis 03/03/2012 MARIAN INSPECTOR PACKAGER, PRIETO R 784.49 Hoarseness 03/03/2012 MARIAN INSPECTOR PACKAGER, PRIETO R 786.2 Cough 03/03/2012 MARIAN INSPECTOR PACKAGER, PRIETO R 788.41 Urinary Frequency 03/03/2012 DOUGLAS LEAL MD 462 Pharyngitis 03/03/2012 DOUGLAS LEAL MD 784.4 9 Hoarseness 03/03/2012 DOUGLAS LEAL MD 786.2 Cough 03/03/2012 DOUGLAS LEAL MD 788.4 1 Urinary Frequency 03/03/2012 BRENDA PABLO, KAREN Quinn 462 Pharyngitis 03/03/2012 BRENDA PABLO, KAREN Quinn 784.49 Hoarseness 03/03/2012 BRENDA PHD, KAREN Quinn 786.2 Cough 03/03/2012 BRENDA PHD, KAREN Quinn 788.41 Urinary Frequency 03/03/2012 DIONNA INSPECTOR PACKAGER, LAURIE 462 Pharyngitis 03/03/2012 DIONNA INSPECTOR PACKAGER, LAURIE 784 .49 Hoarseness 03/03/2012 DIONNA INSPECTOR PACKAGER, LAURIE 786 .2 Cough 03/03/2012 DIONNA INSPECTOR PACKAGER, LAURIE 788 .41 Urinary Frequency 03/03/2012 RANJAN INSPECTOR PACKAGER, NENO S 462 Pharyngitis 03/03/2012 RANJAN INSPECTOR PACKAGER, NENO S 784.49 Hoarseness 03/03/2012 RANJAN INSPECTOR PACKAGER, NENO S 786.2 Cough 03/03/2012 RANJAN INSPECTOR PACKAGER, NENO S 788.41 Urinary Frequency 03/03/2012 DIONNA INSPECTOR PACKAGER, LAURIE 462 Pharyngitis 03/03/2012 DIONNA INSPECTOR PACKAGER, LAURIE 784 .49 Hoarseness 03/03/2012 DIONNA INSPECTOR PACKAGER, LAURIE 786 .2 Cough 03/03/2012 DIONNA INSPECTOR PACKAGER, LAURIE 788 .41 Urinary Frequency 03/03/2012 DIONNA INSPECTOR PACKAGER, LAURIE 462 Pharyngitis 03/03/2012 DIONNA INSPECTOR PACKAGER, LAURIE 784 .49 Hoarseness 03/03/2012 DIONNA INSPECTOR PACKAGER, LAURIE 786 .2 Cough 03/03/2012 DIONNA INSPECTOR PACKAGER, LAURIE 788 .41 Urinary Frequency 03/03/2012 DIONNA INSPECTOR PACKAGER, LAURIE 462 Pharyngitis 03/03/2012 DIONNA INSPECTOR PACKAGER, LAURIE 784 .49 Hoarseness 03/03/2012 DIONNA INSPECTOR PACKAGER, LAURIE 786 .2 Cough 03/03/2012 DIONNA INSPECTOR PACKAGER, LAURIE 788 .41 Urinary Frequency 03/03/2012 OMAR ADORNO APRN 46 2 Pharyngitis 03/03/2012 OMAR ADORNO APRN 784.49 Hoarseness 03/03/2012 OMAR ADORNO APRN 78 6.2 Cough 03/03/2012 OMAR ADORNO APRN 788.41 Urinary Frequency 03/03/2012 DIONNA INSPECTOR PACKAGER, LAURIE 462 Pharyngitis 03/03/2012 DIONNA INSPECTOR PACKAGER, LAURIE 784 .49 Hoarseness 03/03/2012 DIONNA INSPECTOR PACKAGER, LAURIE 786 .2 Cough 03/03/2012 DIONNA INSPECTOR PACKAGER, LAURIE 788 .41 Urinary Frequency 03/03/2012 WHITE DDS, KAITLIN J 46 2 Pharyngitis 03/03/2012 WHITE DDS, KAITLIN J 784.49 Hoarseness 03/03/2012 WHITE DDS, KAITLIN J 78 6.2 Cough 03/03/2012 WHITE DDS, KAITLIN J 788.41 Urinary Frequency 03/03/2012 ESPINOZA DDS, JULI 46 2 Pharyngitis 03/03/2012 ESPINOZA DDS, JULI 784.49 Hoarseness 03/03/2012 ESPINOZA DDS, JULI 78 6.2 Cough 03/03/2012 ESPINOZA DDS, JULI 788.41 Urinary Frequency 03/03/2012 ESPINOZA DDS, JULI 46 2 Pharyngitis 03/03/2012 ESPINOZA DDS, JULI 784.49 Hoarseness 03/03/2012 ESPINOZA DDS, JULI 78 6.2 Cough 03/03/2012 ESPINOZA DDS, JULI 788.41 Urinary Frequency 03/03/2012 DIONNA INSPECTOR PACKAGER, LAURIE 462 Pharyngitis 03/03/2012 DIONNA INSPECTOR PACKAGER, LAURIE 784 .49 Hoarseness 03/03/2012 DIONNA INSPECTOR PACKAGER, LAURIE 786 .2 Cough 03/03/2012 DIONNA INSPECTOR PACKAGER, LAURIE 788 .41 Urinary Frequency 03/03/2012 YOUNG DO, BEAR K 462 Pharyngitis 03/03/2012 YOUNG DO, BEAR K 784.49 Hoarseness 03/03/2012 YOUNG DO, BEAR K 786.2 Cough 03/03/2012 YOUNG DO, BEAR K 788.41 Urinary Frequency 03/03/2012 MARIAN MURILLON, PRIETO R 4 62 Pharyngitis 03/03/2012 MARIAN INSPECTOR PACKAGER, PRIETO R 784.49 Hoarseness 03/03/2012 MARIAN INSPECTOR PACKAGER, PRIETO R 786.2 Cough 03/03/2012 MARIAN FRAGOSO, PRIETO R 788.41 Urinary Frequency 03/03/2012 DIONNA INSPECTOR PACKAGER, LAURIE 462 Pharyngitis 03/03/2012 DIONNA INSPECTOR PACKAGER, LAURIE 784 .49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 04/11/2013 AREN BAZAN LCPC 787.01 NAUSEA WITH VOMITING 04/11/2013 NENO WOODRUFF APRN S 787.01 NAUSEA WITH VOMITING 04/11/2013 BRENDA PABLO, KAREN Quinn 787.01 NAUSEA WITH VOMITING 04/11/2013 KRAEN GUTIERREZ PHD 787.01 NAUSEA WITH VOMITING 04/11/2013 NENO WOODRUFF APRN S 787.01 NAUSEA WITH VOMITING 04/11/2013 NENO WOODRUFF APRN S 787.01 NAUSEA WITH VOMITING 04/11/2013 ROBERTO YATES APRN 787.01 NAUSEA WITH VOMITING 04/11/2013 NENO WOODRUFF APRN S 787.01 NAUSEA WITH VOMITING 04/11/2013 BRENDA PABLO, KAREN Quinn 787.01 NAUSEA WITH VOMITING 04/11/2013 ENOCH FONSECA APRNINA R 787.01 NAUSEA WITH VOMITING 04/11/2013 DOUGLAS LEAL MD 787.0 1 NAUSEA WITH VOMITING 04/11/2013 KAREN GUTIERREZ PHD 787.01 NAUSEA WITH VOMITING 04/11/2013 LAURIE VILLAREAL APRN 787 .01 NAUSEA WITH VOMITING 04/11/2013 NENO WOODRUFF APRN S 787.01 NAUSEA WITH VOMITING 04/11/2013 LAURIE VILLAREAL APRN 787 .01 NAUSEA WITH VOMITING 04/11/2013 DIONNA INSPECTOR PACKAGER, LAURIE 787 .01 NAUSEA WITH VOMITING 04/11/2013 DIONNA FRAGOSO, LAURIE 787 .01 NAUSEA WITH VOMITING 04/11/2013 OMAR ADORNO APRN 787.01 NAUSEA WITH VOMITING 04/11/2013 DIONNA FRAGOSO LAURIE 787 .01 NAUSEA WITH VOMITING 04/11/2013 ROSHAN GILLESPIES, KAITLIN Cortez 787.01 NAUSEA WITH VOMITING 04/11/2013 OLGA GILLESPIESJULI 787.01 NAUSEA WITH VOMITING 04/11/2013 ESPINOZA DDS, JULI 787.01 NAUSEA WITH VOMITING 04/11/2013 DIONNA FRAGOSO LAURIE 787 .01 NAUSEA WITH VOMITING 04/11/2013 YOUNG DOBEAR K 787.01 NAUSEA WITH VOMITING 04/11/2013 MARIAN FRAGOSO, PRIETO R 787.01 NAUSEA WITH VOMITING 04/11/2013 DIONNA FRAGOSO LAURIE 787 .01 NAUSEA WITH VOMITING 04/11/2013 MARIAN FRAGOSO, PRIETO R 787.01 NAUSEA WITH VOMITING 04/11/2013 MARIAN FRAGOSO PRIETO R 787.01 NAUSEA WITH VOMITING 04/11/2013 DOUGLAS LEAL MD 787.0 1 NAUSEA WITH VOMITING 04/11/2013 BEAR YOUNG DO K 787.01 NAUSEA WITH VOMITING 04/23/2013 AREN BAZAN LCPC 296.32 MO DEPRESSIVE RECURRENT MODERATE 04/23/2013 AREN BAZAN LCPC 300.02 AN GEN ANXIETY 04/23/2013 NENO WOODRUFF APRN S 296.32 MO DEPRESSIVE RECURRENT MODERATE 04/23/2013 NENO WOODRUFF APRN S 300.02 AN GEN ANXIETY 04/23/2013 BRENDA PABLO, KAREN Quinn 296.32 MO DEPRESSIVE RECURRENT MODERATE 04/23/2013 BRENDA PABLO, KAREN Quinn 300.02 AN GEN ANXIETY 04/23/2013 BRENDA PABLO, KAREN Quinn 296.32 MO DEPRESSIVE RECURRENT MODERATE 04/23/2013 BRENDA PABLO, KAREN Quinn 300.02 AN GEN ANXIETY 04/23/2013 NENO WOODRUFF APRN S 296.32 MO DEPRESSIVE RECURRENT MODERATE 04/23/2013 NENO WOODRUFF APRN S 300.02 AN GEN ANXIETY 04/23/2013 NENO WOODRUFF APRN S 296.32 MO DEPRESSIVE RECURRENT MODERATE 04/23/2013 KATIE WOODRUFF APRNNDA S 300.02 AN GEN ANXIETY 04/23/2013 MALIKA GUILLEN FOUZIA, ROBERTO N 296.32 MO DEPRESSIVE RECURRENT MODERATE 04/23/2013 MALIKA GUILLEN FOUZIA, ROBERTO N 300.02 AN GEN ANXIETY 04/23/2013 KATIE WOODRUFF APRNNDA S 296.32 MO DEPRESSIVE RECURRENT MODERATE 04/23/2013 KATIE WOODRUFF APRNNDA S 300.02 AN GEN ANXIETY 04/23/2013 BRENDA PABLO, KAREN Quinn 296.32 MO DEPRESSIVE RECURRENT MODERATE 04/23/2013 BRENDA PABLO, KAREN Quinn 300.02 AN GEN ANXIETY 04/23/2013 MARIAN FRAGOSO, PRIETO R 296.32 MO DEPRESSIVE RECURRENT MODERATE 04/23/2013 MARIAN FRAGOSO, PRIETO R 300.02 AN GEN ANXIETY 04/23/2013 DOUGLAS LEAL MD 296.3 2 MO DEPRESSIVE RECURRENT MODERATE 04/23/2013 DOUGLAS LEAL MD 300.0 2 AN GEN ANXIETY 04/23/2013 KAREN GUTIERREZ PHD 296.32 MO DEPRESSIVE RECURRENT MODERATE 04/23/2013 KAREN GUTIERREZ PHD 300.02 AN GEN ANXIETY 04/23/2013 DIONNA INSPECTOR PACKAGER, LAURIE 296 .32 MO DEPRESSIVE RECURRENT MODERATE 04/23/2013 DIONNA INSPECTOR PACKAGER, LAURIE 300 .02 AN GEN ANXIETY 04/23/2013 KATIE WOODRUFF APRNNDA S 296.32 MO DEPRESSIVE RECURRENT MODERATE 04/23/2013 KATIE WOODRUFF APRNNDA S 300.02 AN GEN ANXIETY 04/23/2013 DIONNA INSPECTOR PACKAGER, LAURIE 296 .32 MO DEPRESSIVE RECURRENT MODERATE 04/23/2013 DIONNA INSPECTOR PACKAGER, LAURIE 300 .02 AN GEN ANXIETY 04/23/2013 DIONNA INSPECTOR PACKAGER, LAURIE 296 .32 MO DEPRESSIVE RECURRENT MODERATE 04/23/2013 DIONNA INSPECTOR PACKAGER, LAURIE 300 .02 AN GEN ANXIETY 04/23/2013 DIONNA INSPECTOR PACKAGER, LAURIE 296 .32 MO DEPRESSIVE RECURRENT MODERATE 04/23/2013 DIONNA INSPECTOR PACKAGER, LAURIE 300 .02 AN GEN ANXIETY 04/23/2013 TILA FRAGOSO OMAR T 296.32 MO DEPRESSIVE RECURRENT MODERATE 04/23/2013 TILA FRAGOSO OMAR T 300.02 AN GEN ANXIETY 04/23/2013 DIONNA INSPECTOR PACKAGER, LAURIE 296 .32 MO DEPRESSIVE RECURRENT MODERATE 04/23/2013 DIONNA INSPECTOR PACKAGER, LAURIE 300 .02 AN GEN ANXIETY 04/23/2013 WHITE DDS, KAITLIN J 296.32 MO DEPRESSIVE RECURRENT MODERATE 04/23/2013 WHITE DDS, KAITLIN J 300.02 AN GEN ANXIETY 04/23/2013 ESPINOZA DDS, JULI 296.32 MO DEPRESSIVE RECURRENT MODERATE 04/23/2013 ESPINOZA DDS, JULI 300.02 AN GEN ANXIETY 04/23/2013 ESPINOZA DDS, JULI 296.32 MO DEPRESSIVE RECURRENT MODERATE 04/23/2013 ESPINOZA DDS, JULI 300.02 AN GEN ANXIETY 04/23/2013 DIONNA INSPECTOR PACKAGER, LAURIE 296 .32 MO DEPRESSIVE RECURRENT MODERATE 04/23/2013 DIONNA INSPECTOR PACKAGER, LAURIE 300 .02 AN GEN ANXIETY 04/23/2013 YOUNG DO BEAR K 296.32 MO DEPRESSIVE RECURRENT MODERATE 04/23/2013 YOUNG DO BEAR K 300.02 AN GEN ANXIETY 04/23/2013 MARIAN FRAGOSO PRIETO R 296.32 MO DEPRESSIVE RECURRENT MODERATE 04/23/2013 MARIAN FRAGOSO PRIETO R 300.02 AN GEN ANXIETY 04/23/2013 DIONNA INSPECTOR PACKAGER, LAURIE 296 .32 MO DEPRESSIVE RECURRENT MODERATE 04/23/2013 DIONNA INSPECTOR PACKAGER, LAURIE 300 .02 AN GEN ANXIETY 04/23/2013 MARIAN FRAGOSO PRIETO R 296.32 MO DEPRESSIVE RECURRENT MODERATE 04/23/2013 MARIAN FRAGOSO PRIETO R 300.02 AN GEN ANXIETY 04/23/2013 MARIAN FRAGOSO PRIETO R 296.32 MO DEPRESSIVE RECURRENT MODERATE 04/23/2013 MARIAN FRAGOSO PRIETO R 300.02 AN GEN ANXIETY 04/23/2013 DOUGLAS LEAL MD 296.3 2 MO DEPRESSIVE RECURRENT MODERATE 04/23/2013 DOUGLAS LEAL MD 300.0 2 AN GEN ANXIETY 04/23/2013 YOUNG DO BEAR K 296.32 MO DEPRESSIVE RECURRENT MODERATE 04/23/2013 YOUNG DO BEAR K 300.02 AN GEN ANXIETY 05/01/2013 NENO WOODRUFF APRN S 736.79 FOOT DROP 05/01/2013 BRENDA PABLO, KAREN Quinn 736.79 FOOT DROP 05/01/2013 BRENDA PHD, KAREN Quinn 736.79 FOOT DROP 05/01/2013 NENO WOODRUFF APRN S 736.79 FOOT DROP 05/01/2013 RANJAN INSPECTOR PACKAGER, NENO S 736.79 FOOT DROP 05/01/2013 MALIKA GUILLEN FOUZIAROBERTO N 736.79 FOOT DROP 05/01/2013 RANJAN FRAGOSO NEON S 736.79 FOOT DROP 05/01/2013 BRENDA PHD, KAREN Quinn 736.79 FOOT DROP 05/01/2013 MARIAN INSPECTOR PACKAGER, PRIETO R 736.79 FOOT DROP 05/01/2013 DOUGLAS LEAL MD 736.7 9 FOOT DROP 05/01/2013 BRENDA PHD, KAREN Quinn 736.79 FOOT DROP 05/01/2013 DIONNA INSPECTOR PACKAGER, LAURIE 736 .79 FOOT DROP 05/01/2013 KATIE WOODRUFF APRNNDA S 736.79 FOOT DROP 05/01/2013 DIONNA INSPECTOR PACKAGER, LAURIE 736 .79 FOOT DROP 05/01/2013 DIONNA INSPECTOR PACKAGER, LAURIE 736 .79 FOOT DROP 05/01/2013 DIONNA INSPECTOR PACKAGER, LAURIE 736 .79 FOOT DROP 05/01/2013 OMAR ADORNO APRN 736.79 FOOT DROP 05/01/2013 DIONNA INSPECTOR PACKAGER, LAURIE 736 .79 FOOT DROP 05/01/2013 ROSHAN DDS, KAITLIN J 736.79 FOOT DROP 05/01/2013 ESPINOZA DDS, JULI 736.79 FOOT DROP 05/01/2013 ESPINOZA DDS, JULI 736.79 FOOT DROP 05/01/2013 DIONNA INSPECTOR PACKAGER, LAURIE 736 .79 FOOT DROP 05/01/2013 YOUNG DO, BEAR K 736.79 FOOT DROP 05/01/2013 MARIAN INSPECTOR PACKAGER, PRIETO R 736.79 FOOT DROP 05/01/2013 DIONNA INSPECTOR PACKAGER, LAURIE 736 .79 FOOT DROP 05/01/2013 MARIAN INSPECTOR PACKAGER, PRIETO R 736.79 FOOT DROP 05/01/2013 MARIAN INSPECTOR PACKAGER, PRIETO R 736.79 FOOT DROP 05/01/2013 DOUGLAS LEAL MD 736.7 9 FOOT DROP 05/01/2013 YOUNG DO, BEAR K 736.79 FOOT DROP 06/04/2013 TAE CUNHA APRN Ot 490 BRONCHITIS NOS 06/04/2013 TAE CUNHA APRN Ot 786 .2 COUGH 06/13/2013 RANJAN INSPECTOR PACKAGER, NENO S 356.4 IDIOPATHIC PROGRESSIVE POLYNEUROPATHY 06/13/2013 YUKI WOODRUFF APRNA S 356.4 IDIOPATHIC PROGRESSIVE POLYNEUROPATHY 06/13/2013 ROBERTO YATES APRN 356.4 IDIOPATHIC PROGRESSIVE POLYNEUROPATHY 06/13/2013 NENO WOODRUFF APRN S 356.4 IDIOPATHIC PROGRESSIVE POLYNEUROPATHY 06/13/2013 BRENDA PABLO, KAREN Quinn 356.4 IDIOPATHIC PROGRESSIVE POLYNEUROPATHY 06/13/2013 ENOCH FONSECA APRNINA R 356.4 IDIOPATHIC PROGRESSIVE POLYNEUROPATHY 06/13/2013 DOUGLAS LEAL MD 356.4 IDIOPATHIC PROGRESSIVE POLYNEUROPATHY 06/13/2013 BRENDA PABLO, KAREN Quinn 356.4 IDIOPATHIC PROGRESSIVE POLYNEUROPATHY 06/13/2013 LAURIE VILLAREAL APRN 356 .4 IDIOPATHIC PROGRESSIVE POLYNEUROPATHY 06/13/2013 NENO WOODRUFF APRN S 356.4 IDIOPATHIC PROGRESSIVE POLYNEUROPATHY 06/13/2013 LAURIE VILLAREAL APRN 356 .4 IDIOPATHIC PROGRESSIVE POLYNEUROPATHY 06/13/2013 LAURIE VILLAREAL APRN 356 .4 IDIOPATHIC PROGRESSIVE POLYNEUROPATHY 06/13/2013 LAURIE VILLAREAL APRN 356 .4 IDIOPATHIC PROGRESSIVE POLYNEUROPATHY 06/13/2013 OMAR ADORNO APRN 35 6.4 IDIOPATHIC PROGRESSIVE POLYNEUROPATHY 06/13/2013 LAURIE VILLAREAL APRN 356 .4 IDIOPATHIC PROGRESSIVE POLYNEUROPATHY 06/13/2013 KAITLIN ISLAS DDS 35 6.4 IDIOPATHIC PROGRESSIVE POLYNEUROPATHY 06/13/2013 JULI ESPINOZA DDS 35 6.4 IDIOPATHIC PROGRESSIVE POLYNEUROPATHY 06/13/2013 JULI ESPINOZA DDS 35 6.4 IDIOPATHIC PROGRESSIVE POLYNEUROPATHY 06/13/2013 LAURIE VILLAREAL APRN 356 .4 IDIOPATHIC PROGRESSIVE POLYNEUROPATHY 06/13/2013 BEAR YOUNG DO 356.4 IDIOPATHIC PROGRESSIVE POLYNEUROPATHY 06/13/2013 PRIETO FONSECA APRN R 356.4 IDIOPATHIC PROGRESSIVE POLYNEUROPATHY 06/13/2013 DIONNA FRAGOSO LAURIE 356 .4 IDIOPATHIC PROGRESSIVE POLYNEUROPATHY 06/13/2013 ENOCH FONSECA APRNINA R 356.4 IDIOPATHIC PROGRESSIVE POLYNEUROPATHY 06/13/2013 ENOCH FONSECA APRNINA R 356.4 IDIOPATHIC PROGRESSIVE POLYNEUROPATHY 06/13/2013 DOUGLAS LEAL MD 356.4 IDIOPATHIC PROGRESSIVE POLYNEUROPATHY 06/13/2013 HANNAH BEAR COFFMAN Masoud 356.4 IDIOPATHIC PROGRESSIVE POLYNEUROPATHY 06/29/2013 DALY CASHERO INSPECTOR PACKAGER, ROBERTO N 486 PNEUMONIA ORGANISM UNSPECIFIED 06/29/2013 DALY CASHERO INSPECTOR PACKAGER, ROBERTO N 786.2 COUGH 06/29/2013 RANJAN INSPECTOR PACKAGER, NENO S 486 PNEUMONIA ORGANISM UNSPECIFIED 06/29/2013 RANJAN INSPECTOR PACKAGER, NENO S 786.2 COUGH 06/29/2013 BRENDA PABLO, KAREN Quinn 486 PNEUMONIA ORGANISM UNSPECIFIED 06/29/2013 BRENDA PHD, KAREN Quinn 786.2 COUGH 06/29/2013 MARIAN INSPECTOR PACKAGER, PRIETO R 4 86 PNEUMONIA ORGANISM UNSPECIFIED 06/29/2013 MARIAN INSPECTOR PACKAGER, PRIETO R 786.2 COUGH 06/29/2013 DOUGLAS LEAL MD 486 PNEUMONIA ORGANISM UNSPECIFIED 06/29/2013 DOUGLAS LEAL MD 786.2 COUGH 06/29/2013 BRENDA PABLO, KAREN Quinn 486 PNEUMONIA ORGANISM UNSPECIFIED 06/29/2013 BRENDA PABLO, KAREN Quinn 786.2 COUGH 06/29/2013 DIONNA INSPECTOR PACKAGER, LAURIE 486 PNEUMONIA ORGANISM UNSPECIFIED 06/29/2013 DIONNA INSPECTOR PACKAGER, LAURIE 786 .2 COUGH 06/29/2013 RANJAN INSPECTOR PACKAGER, NENO S 486 PNEUMONIA ORGANISM UNSPECIFIED 06/29/2013 RANJAN INSPECTOR PACKAGER, NENO S 786.2 COUGH 06/29/2013 DIONNA INSPECTOR PACKAGER, LAURIE 486 PNEUMONIA ORGANISM UNSPECIFIED 06/29/2013 DIONNA INSPECTOR PACKAGER, LAURIE 786 .2 COUGH 06/29/2013 DIONNA INSPECTOR PACKAGER, LAURIE 486 PNEUMONIA ORGANISM UNSPECIFIED 06/29/2013 DIONNA INSPECTOR PACKAGER, LAURIE 786 .2 COUGH 06/29/2013 DIONNA INSPECTOR PACKAGER, LAURIE 486 PNEUMONIA ORGANISM UNSPECIFIED 06/29/2013 DIONNA INSPECTOR PACKAGER, LAURIE 786 .2 COUGH 06/29/2013 OMAR ADORNO APRN 48 6 PNEUMONIA ORGANISM UNSPECIFIED 06/29/2013 OMAR ADORNO APRN 78 6.2 COUGH 06/29/2013 DIONNA INSPECTOR PACKAGER, LAURIE 486 PNEUMONIA ORGANISM UNSPECIFIED 06/29/2013 DIONNA INSPECTOR PACKAGER, LAURIE 786 .2 COUGH 06/29/2013 KAITLIN ISLAS DDS 48 6 PNEUMONIA ORGANISM UNSPECIFIED 06/29/2013 KAITLIN ISLAS DDS 78 6.2 COUGH 06/29/2013 ESPINOZA DDS, JULI 48 6 PNEUMONIA ORGANISM UNSPECIFIED 06/29/2013 ESPINOZA DDS, JULI 78 6.2 COUGH 06/29/2013 ESPINOZA DDS, JULI 48 6 PNEUMONIA ORGANISM UNSPECIFIED 06/29/2013 ESPINOZA DDS, JULI 78 6.2 COUGH 06/29/2013 DIONNA INSPECTOR PACKAGER, LAURIE 486 PNEUMONIA ORGANISM UNSPECIFIED 06/29/2013 DIONNA INSPECTOR PACKAGER, LAURIE 786 .2 COUGH 06/29/2013 YOUNG DO, BEAR K 486 PNEUMONIA ORGANISM UNSPECIFIED 06/29/2013 YOUNG DO, BEAR K 786.2 COUGH 06/29/2013 MARIAN INSPECTOR PACKAGER, PRIETO R 4 86 PNEUMONIA ORGANISM UNSPECIFIED 06/29/2013 MARIAN INSPECTOR PACKAGER, PRIETO R 786.2 COUGH 06/29/2013 DIONNA INSPECTOR PACKAGER, LAURIE 486 PNEUMONIA ORGANISM UNSPECIFIED 06/29/2013 DIONNA INSPECTOR PACKAGER, LAURIE 786 .2 COUGH 06/29/2013 MARIAN INSPECTOR PACKAGER, PRIETO R 4 86 PNEUMONIA ORGANISM UNSPECIFIED 06/29/2013 MARIAN INSPECTOR PACKAGER, PRIETO R 786.2 COUGH 06/29/2013 MARIAN INSPECTOR PACKAGER, PRIETO R 4 86 PNEUMONIA ORGANISM UNSPECIFIED 06/29/2013 MARIAN INSPECTOR PACKAGER, PRIETO R 786.2 COUGH 06/29/2013 DOUGLAS LEAL MD 486 PNEUMONIA ORGANISM UNSPECIFIED 06/29/2013 DOUGLAS LEAL MD 786.2 COUGH 06/29/2013 YOUNG DO, BEAR K 486 PNEUMONIA ORGANISM UNSPECIFIED 06/29/2013 YOUNG DO, BEAR K 786.2 COUGH 07/12/2013 RAJNAN FRAGOSO, NENO S 784.0 HEADACHE 07/12/2013 BRENDA PABLO, KAREN Quinn 784.0 HEADACHE 07/12/2013 MARIAN INSPECTOR PACKAGER, PRIETO R 784.0 HEADACHE 07/12/2013 DOUGLAS LEAL MD 784.0 HEADACHE 07/12/2013 BRENDA PHD, KAREN Quinn 784.0 HEADACHE 07/12/2013 DIONNA INSPECTOR PACKAGER, LAURIE 784 .0 HEADACHE 07/12/2013 RANJAN FRAGOSO, NENO S 784.0 HEADACHE 07/12/2013 DIONNA INSPECTOR PACKAGER, LAURIE 784 .0 HEADACHE 07/12/2013 DIONNA INSPECTOR PACKAGER, LAURIE 784 .0 HEADACHE 07/12/2013 DIONNA INSPECTOR PACKAGER, LAURIE 784 .0 HEADACHE 07/12/2013 TILA INSPECTOR PACKAGEROMAR 78 4.0 HEADACHE 07/12/2013 DIONNA INSPECTOR PACKAGER, LAURIE 784 .0 HEADACHE 07/12/2013 ROSHAN DDS, KAITLIN Cortez 78 4.0 HEADACHE 07/12/2013 ESPINOZA DDS, JULI 78 4.0 HEADACHE 07/12/2013 ESPINOZA DDS, JULI 78 4.0 HEADACHE 07/12/2013 DIONNA INSPECTOR PACKAGER, LAURIE 784 .0 HEADACHE 07/12/2013 YOUNG DO, BEAR K 784.0 HEADACHE 07/12/2013 MARIAN INSPECTOR PACKAGER, PRIETO R 784.0 HEADACHE 07/12/2013 DIONNA INSPECTOR PACKAGER, LAURIE 784 .0 HEADACHE 07/12/2013 MARIAN FRAGOSO, PRIETO R 784.0 HEADACHE 07/12/2013 ENOCH FONSECA APRNINA R 784.0 HEADACHE 07/12/2013 DOUGLAS LEAL MD 784.0 HEADACHE 07/12/2013 YOUNG DO, BEAR K 784.0 HEADACHE 07/13/2013 TAE CUNHA APRN Ot 923.20 CONTUSION OF HAND(S) 07/13/2013 TAE CUNHA APRN Ot 959 .4 HAND INJURY NOS 07/13/2013 TAE CUNHA APRN Ot E000.8 OTHER EXTERNAL CAUSE STATUS 07/13/2013 TAE CUNHA APRN Ot E849.0 ACCIDENT IN HOME 07/13/2013 TAE CUNHA APRN Ot E91 8 CAUGHT BETWEEN OBJECTS 07/25/2013 NENO WOODRUFFP Ot 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 07/25/2013 NENO WOODRUFFP Ot V57.1 PHYSICAL THERAPY NEC 09/05/2013 BRENDA PHD, KAREN Quinn 300.01 AN PANIC DIS W/O AGORA 09/05/2013 PRIETO FONSECA APRN R 300.01 AN PANIC DIS W/O AGORA 09/05/2013 DOUGLAS LEAL MD 300.0 1 AN PANIC DIS W/O AGORA 09/05/2013 BRENDA PABLO, KAREN Quinn 300.01 AN PANIC DIS W/O AGORA 09/05/2013 LAURIE VILLAREAL APRN 300 .01 AN PANIC DIS W/O AGORA 09/05/2013 NENO WOODRUFF APRN 300.01 AN PANIC DIS W/O AGORA 09/05/2013 LAURIE VILLAREAL APRN 300 .01 AN PANIC DIS W/O AGORA 09/05/2013 LAURIE VILLAREAL APRN 300 .01 AN PANIC DIS W/O AGORA 09/05/2013 LAURIE VILLAREAL APRN 300 .01 AN PANIC DIS W/O AGORA 09/05/2013 OMAR ADORNO APRN 300.01 AN PANIC DIS W/O AGORA 09/05/2013 LAURIE VILLAREAL APRN 300 .01 AN PANIC DIS W/O AGORA 09/05/2013 WHITE DDS, KAITLIN J 300.01 AN PANIC DIS W/O AGORA 09/05/2013 ESPINOZA DDSJULI 300.01 AN PANIC DIS W/O AGORA 09/05/2013 ESPINOZA DDS, JULI 300.01 AN PANIC DIS W/O AGORA 09/05/2013 LAURIE VILLAREAL APRN 300 .01 AN PANIC DIS W/O AGORA 09/05/2013 BEAR YOUNG DO 300.01 AN PANIC DIS W/O AGORA 09/05/2013 PRIETO FONSECA APRN R 300.01 AN PANIC DIS W/O AGORA 09/05/2013 LAURIE VILLAREAL APRN 300 .01 AN PANIC DIS W/O AGORA 09/05/2013 PRIETO FONSECA APRN R 300.01 AN PANIC DIS W/O AGORA 09/05/2013 PRIETO FONSECA APRN R 300.01 AN PANIC DIS W/O AGORA 09/05/2013 DOUGLAS LEAL MD 300.0 1 AN PANIC DIS W/O AGORA 09/05/2013 BEAR YOUNG DO 300.01 AN PANIC DIS W/O AGORA 09/13/2013 TAE CUNHA APRN Ot 682 .3 CELLULITIS OF ARM 09/20/2013 PRIETO FONSECA APRN R 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 09/20/2013 PRIETO FONSECA APRN R 477.0 ALLERGIC RHINITIS DUE TO POLLEN 09/20/2013 RPIETO FONSECA APRN R 698.9 UNSPECIFIED PRURITIC DISORDER 09/20/2013 DOUGLAS LEAL MD 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 09/20/2013 DOUGLAS LEAL MD 477.0 ALLERGIC RHINITIS DUE TO POLLEN 09/20/2013 DOUGLAS LEAL MD 698.9 UNSPECIFIED PRURITIC DISORDER 09/20/2013 BRENDA PHD, KAREN Quinn 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 09/20/2013 BRENDA PABLO, KAREN Quinn 477.0 ALLERGIC RHINITIS DUE TO POLLEN 09/20/2013 BRENDA PABLO, KAREN Quinn 698.9 UNSPECIFIED PRURITIC DISORDER 09/20/2013 DIONNA INSPECTOR PACKAGER, LUARIE 216 .6 BENIGN NEOPLASM OF SKIN OF UPPER LIMB INCLUDING SHOULDER 09/20/2013 DIONNA INSPECTOR PACKAGER, LAURIE 477 .0 ALLERGIC RHINITIS DUE TO POLLEN 09/20/2013 DIONNA INSPECTOR PACKAGER, LAURIE 698 .9 UNSPECIFIED PRURITIC DISORDER 09/20/2013 RNAJAN INSPECTOR PACKAGER, NENO S 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 09/20/2013 RANJAN INSPECTOR PACKAGER NENO S 477.0 ALLERGIC RHINITIS DUE TO POLLEN 09/20/2013 RANJAN INSPECTOR PACKAGER, NENO S 698.9 UNSPECIFIED PRURITIC DISORDER 09/20/2013 DIONNA INSPECTOR PACKAGER, LAURIE 216 .6 BENIGN NEOPLASM OF SKIN OF UPPER LIMB INCLUDING SHOULDER 09/20/2013 DIONNA INSPECTOR PACKAGER, LAURIE 477 .0 ALLERGIC RHINITIS DUE TO POLLEN 09/20/2013 DIONNA INSPECTOR PACKAGER, LAURIE 698 .9 UNSPECIFIED PRURITIC DISORDER 09/20/2013 DIONNA INSPECTOR PACKAGER, LAURIE 216 .6 BENIGN NEOPLASM OF SKIN OF UPPER LIMB INCLUDING SHOULDER 09/20/2013 DIONNA INSPECTOR PACKAGER, LAURIE 477 .0 ALLERGIC RHINITIS DUE TO POLLEN 09/20/2013 DIONNA INSPECTOR PACKAGER, LAURIE 698 .9 UNSPECIFIED PRURITIC DISORDER 09/20/2013 DIONNA INSPECTOR PACKAGER, LAURIE 216 .6 BENIGN NEOPLASM OF SKIN OF UPPER LIMB INCLUDING SHOULDER 09/20/2013 DIONNA INSPECTOR PACKAGER, LAURIE 477 .0 ALLERGIC RHINITIS DUE TO POLLEN 09/20/2013 DIONNA INSPECTOR PACKAGER, LAURIE 698 .9 UNSPECIFIED PRURITIC DISORDER 09/20/2013 OMAR ADORNO APRN 21 6.6 BENIGN NEOPLASM OF SKIN OF UPPER LIMB INCLUDING SHOULDER 09/20/2013 OMAR ADORNO APRN 47 7.0 ALLERGIC RHINITIS DUE TO POLLEN 09/20/2013 OMAR ADORNO APRN 69 8.9 UNSPECIFIED PRURITIC DISORDER 09/20/2013 DIONNA FRAGOSO LAURIE 216 .6 BENIGN NEOPLASM OF SKIN OF UPPER LIMB INCLUDING SHOULDER 09/20/2013 RAMEZ VILLAREAL APRNETTE 477 .0 ALLERGIC RHINITIS DUE TO POLLEN 09/20/2013 DIONNA MURILLON LAURIE 698 .9 UNSPECIFIED PRURITIC DISORDER 09/20/2013 WHITE DDS, KAITLIN J 21 6.6 BENIGN NEOPLASM OF SKIN OF UPPER LIMB INCLUDING SHOULDER 09/20/2013 WHITE DDS, KAITLIN J 47 7.0 ALLERGIC RHINITIS DUE TO POLLEN 09/20/2013 WHITE DDS, KAITLIN J 69 8.9 UNSPECIFIED PRURITIC DISORDER 09/20/2013 ESPINOZA DDS, JULI 21 6.6 BENIGN NEOPLASM OF SKIN OF UPPER LIMB INCLUDING SHOULDER 09/20/2013 ESPINOZA DDS, JULI 47 7.0 ALLERGIC RHINITIS DUE TO POLLEN 09/20/2013 ESPINOZA DDS, JULI 69 8.9 UNSPECIFIED PRURITIC DISORDER 09/20/2013 ESPINOZA DDS, JULI 21 6.6 BENIGN NEOPLASM OF SKIN OF UPPER LIMB INCLUDING SHOULDER 09/20/2013 ESPINOZA DDS, JULI 47 7.0 ALLERGIC RHINITIS DUE TO POLLEN 09/20/2013 ESPINOZA DDS, JULI 69 8.9 UNSPECIFIED PRURITIC DISORDER 09/20/2013 DIONNA FRAGOSO LAURIE 216 .6 BENIGN NEOPLASM OF SKIN OF UPPER LIMB INCLUDING SHOULDER 09/20/2013 RAMEZ VILLAREAL APRNETTE 477 .0 ALLERGIC RHINITIS DUE TO POLLEN 09/20/2013 DIONNA FRAGOSO LAURIE 698 .9 UNSPECIFIED PRURITIC DISORDER 09/20/2013 YOUNG DO BEAR K 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 09/20/2013 YOUNG DO, BEAR K 477.0 ALLERGIC RHINITIS DUE TO POLLEN 09/20/2013 YOUNG DO, BEAR K 698.9 UNSPECIFIED PRURITIC DISORDER 09/20/2013 ENOCH FONSECA APRNINA R 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 09/20/2013 PRIETO FONSECA APRN R 477.0 ALLERGIC RHINITIS DUE TO POLLEN 09/20/2013 ENOCH FONSECA APRNINA R 698.9 UNSPECIFIED PRURITIC DISORDER 09/20/2013 DIONNA FRAGOSO LAURIE 216 .6 BENIGN NEOPLASM OF SKIN OF UPPER LIMB INCLUDING SHOULDER 09/20/2013 RAMEZ VILLAREAL APRNETTE 477 .0 ALLERGIC RHINITIS DUE TO POLLEN 09/20/2013 RAMEZ VILLAREAL APRNETTE 698 .9 UNSPECIFIED PRURITIC DISORDER 09/20/2013 MARIAN INSPECTOR PACKAGER, PRIETO R 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 09/20/2013 MARIAN INSPECTOR PACKAGER, PRIETO R 477.0 ALLERGIC RHINITIS DUE TO POLLEN 09/20/2013 MARIAN INSPECTOR PACKAGER, PRIETO R 698.9 UNSPECIFIED PRURITIC DISORDER 09/20/2013 MARIAN INSPECTOR PACKAGER, PRIETO R 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 09/20/2013 MARIAN INSPECTOR PACKAGER, PRIETO R 477.0 ALLERGIC RHINITIS DUE TO POLLEN 09/20/2013 MARIAN MURILLON, PRIETO R 698.9 UNSPECIFIED PRURITIC DISORDER 09/20/2013 DOUGLAS LEAL MD 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 09/20/2013 DOUGLAS LEAL MD 477.0 ALLERGIC RHINITIS DUE TO POLLEN 09/20/2013 DOUGLAS LEAL MD 698.9 UNSPECIFIED PRURITIC DISORDER 09/20/2013 HANNAH COFFMAN BEAR K 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 09/20/2013 HANNAH COFFMAN BEAR K 477.0 ALLERGIC RHINITIS DUE TO POLLEN 09/20/2013 HANNAH COFFMAN BEAR K 698.9 UNSPECIFIED PRURITIC DISORDER 09/21/2013 SOMMER EVANS Ot 216.9 BENIGN NEOPLASM SKIN NOS 09/21/2013 SOMMER EVANS Ot 682.3 CELLULITIS OF ARM 09/21/2013 SOMMER EVANS Ot 782.2 LOCAL SUPRFICIAL SWELLNG 09/22/2013 DOUGLAS LEAL MD 709.9 UNSPECIFIED DISORDER OF SKIN AND SUBCUTANEOUS TISSUE 09/22/2013 BRENDA PHD, KAREN Quinn 709.9 UNSPECIFIED DISORDER OF SKIN AND SUBCUTANEOUS TISSUE 09/22/2013 DIONNA FRAGOSO, LAURIE 709 .9 UNSPECIFIED DISORDER OF SKIN AND SUBCUTANEOUS TISSUE 09/22/2013 NENO WOODRUFF APRN 709.9 UNSPECIFIED DISORDER OF SKIN AND SUBCUTANEOUS TISSUE 09/22/2013 DIONNA FRAGOSO, LAURIE 709 .9 UNSPECIFIED DISORDER OF SKIN AND SUBCUTANEOUS TISSUE 09/22/2013 DIONNA INSPECTOR PACKAGER, LAURIE 709 .9 UNSPECIFIED DISORDER OF SKIN AND SUBCUTANEOUS TISSUE 09/22/2013 DIONNA INSPECTOR PACKAGER, LAURIE 709 .9 UNSPECIFIED DISORDER OF SKIN AND SUBCUTANEOUS TISSUE 09/22/2013 OMAR ADORNO APRN 70 9.9 UNSPECIFIED DISORDER OF SKIN AND SUBCUTANEOUS TISSUE 09/22/2013 DIONNA INSPECTOR PACKAGER, LAURIE 709 .9 UNSPECIFIED DISORDER OF SKIN AND SUBCUTANEOUS TISSUE 09/22/2013 ROSHAN DDS, KAITLIN Cortez 70 9.9 UNSPECIFIED DISORDER OF SKIN AND SUBCUTANEOUS TISSUE 09/22/2013 ESPINOZA DDSJULI 70 9.9 UNSPECIFIED DISORDER OF SKIN AND SUBCUTANEOUS TISSUE 09/22/2013 ESPINOZA DDS, JULI 70 9.9 UNSPECIFIED DISORDER OF SKIN AND SUBCUTANEOUS TISSUE 09/22/2013 DIONNA INSPECTOR PACKAGER, LAURIE 709 .9 UNSPECIFIED DISORDER OF SKIN AND SUBCUTANEOUS TISSUE 09/22/2013 BEAR YOUNG DO 709.9 UNSPECIFIED DISORDER OF SKIN AND SUBCUTANEOUS TISSUE 09/22/2013 MARIAN FRAGOSO PRIETO R 709.9 UNSPECIFIED DISORDER OF SKIN AND SUBCUTANEOUS TISSUE 09/22/2013 DIONNA INSPECTOR PACKAGER, LAURIE 709 .9 UNSPECIFIED DISORDER OF SKIN AND SUBCUTANEOUS TISSUE 09/22/2013 MARIAN FRAGOSO PRIETO R 709.9 UNSPECIFIED DISORDER OF SKIN AND SUBCUTANEOUS TISSUE 09/22/2013 MARIAN FRAGOSO PRIETO R 709.9 UNSPECIFIED DISORDER OF SKIN AND SUBCUTANEOUS TISSUE 09/22/2013 DOUGLAS LEAL MD 709.9 UNSPECIFIED DISORDER OF SKIN AND SUBCUTANEOUS TISSUE 09/22/2013 BEAR YOUNG DO 709.9 UNSPECIFIED DISORDER OF SKIN AND SUBCUTANEOUS TISSUE 09/25/2013 DOUGLAS LEAL MD 102.2 OTHER EARLY SKIN LESIONS OF YAWS 09/25/2013 BRENDA PHD, KAREN Quinn 102.2 OTHER EARLY SKIN LESIONS OF YAWS 09/25/2013 DIONNA INSPECTOR PACKAGER, LAURIE 102 .2 OTHER EARLY SKIN LESIONS OF YAWS 09/25/2013 NENO WOODRUFF APRN 102.2 OTHER EARLY SKIN LESIONS OF YAWS 09/25/2013 DIONNA FRAGOSO, LAURIE 102 .2 OTHER EARLY SKIN LESIONS OF YAWS 09/25/2013 DIONNA FRAGOSO, LAURIE 102 .2 OTHER EARLY SKIN LESIONS OF YAWS 09/25/2013 DIONNA FRAGOSO, LAURIE 102 .2 OTHER EARLY SKIN LESIONS OF YAWS 09/25/2013 OMAR ADORNO APRN T 10 2.2 OTHER EARLY SKIN LESIONS OF YAWS 09/25/2013 DIONNA FRAGOSO, LAURIE 102 .2 OTHER EARLY SKIN LESIONS OF YAWS 09/25/2013 WHITE DDS, KAITLIN J 10 2.2 OTHER EARLY SKIN LESIONS OF YAWS 09/25/2013 ESPINOZA DDS, JULI 10 2.2 OTHER EARLY SKIN LESIONS OF YAWS 09/25/2013 ESPINOZA DDS, JULI 10 2.2 OTHER EARLY SKIN LESIONS OF YAWS 09/25/2013 DIONNA FRAGOSO, LAURIE 102 .2 OTHER EARLY SKIN LESIONS OF YAWS 09/25/2013 BAER YOUNG DO K 102.2 OTHER EARLY SKIN LESIONS OF YAWS 09/25/2013 MARIAN FRAGOSO PRIETO R 102.2 OTHER EARLY SKIN LESIONS OF YAWS 09/25/2013 DIONNA FRAGOSO LAURIE 102 .2 OTHER EARLY SKIN LESIONS OF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 INTRACTABLE, WITHOUT 06/14/2016 LAKSHMI NUGENT MDUA T Ot R51 HEADACHE 06/14/2016 JERROD NUGENT MD T Ot Z79.899 OTHER NURSING HOME (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 THERAPY 06/18/2016 JERROD NUGENT MD T Ot F17.210 NICOTINE DEPENDENCE, CIGARETTES, UNCOMPL 06/18/2016 JERROD NUGENT MD T Ot G40.909 EPILEPSY, UNSP, NOT INTRACTABLE, WITHOUT 06/18/2016 JERROD NUGENT MD T Ot R51 HEADACHE 06/18/2016 JERROD NUGENT MD T Ot 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 06/21/2016 TAE CUNHA APRN Ot E66.01 MORBID (SEVERE) OBESITY DUE TO EXCESS CA 06/21/2016 TAE CUNHA APRN Ot I10 ESSENTIAL (PRIMARY) HYPERTENSION 06/21/2016 TAE CUNHA APRN Ot R40 .4 TRANSIENT ALTERATION OF AWARENESS 06/21/2016 TAE CUNHA APRN Ot Z79.899 OTHER NURSING HOME (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 THERAPY 06/22/2016 TAE CUNHA APRN Ot E66.01 MORBID (SEVERE) OBESITY DUE TO EXCESS CA 06/22/2016 TAE CUNHA INSPECTOR PACKAGER Ot I10 ESSENTIAL (PRIMARY) HYPERTENSION 06/22/2016 TAE CUNHA APRN Ot R40 .4 TRANSIENT ALTERATION OF AWARENESS 06/22/2016 TAE CUNHA INSPECTOR PACKAGER Ot 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 06/30/2016 TAE CUNHA APRN Ot E66.01 MORBID (SEVERE) OBESITY DUE TO EXCESS CA 06/30/2016 TAE CUNHA APRN Ot I10 ESSENTIAL (PRIMARY) HYPERTENSION 06/30/2016 TAE CUNHA APRN Ot R40 .4 TRANSIENT ALTERATION OF AWARENESS 06/30/2016 TAE CUNHA APRN Ot 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899 OTHER NURSING HOME (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 THERAPY 07/05/2016 ARLENE MCDONALD MD Ot E66.01 MORBID (SEVERE) OBESITY DUE TO EXCESS CA 07/05/2016 ARLENE MCDONALD MD Ot F17.210 NICOTINE DEPENDENCE, CIGARETTES, UNCOMPL 07/05/2016 ARLENE MCDONALD MD Ot L03.114 CELLULITIS OF LEFT UPPER LIMB 07/05/2016 ARLENE MCDONALD MD Ot 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 07/07/2016 SOMMER EVANS Ot E66.01 MORBID (SEVERE) OBESITY DUE TO EXCESS CA 07/07/2016 SOMMER EVANS Ot F17.210 NICOTINE DEPENDENCE, CIGARETTES, UNCOMPL 07/07/2016 SOMMER EVANS Ot I 10 ESSENTIAL (PRIMARY) HYPERTENSION 07/07/2016 SOMMER EVANS Ot L03.113 CELLULITIS OF RIGHT UPPER LIMB 07/07/2016 SOMMER EVANS Ot 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 07/08/2016 ARLENE MCDONALD MD Ot E66.01 MORBID (SEVERE) OBESITY DUE TO EXCESS CA 07/08/2016 CHEMEHUEVI MD, ARLENE D Ot F17.210 NICOTINE DEPENDENCE, CIGARETTES, UNCOMPL 07/08/2016 ARLENE MCDONALD MD Ot L03.114 CELLULITIS OF LEFT UPPER LIMB 07/08/2016 ARLENE MCDONALD MD Ot 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 07/08/2016 SOMMER EVANS Ot E66.01 MORBID (SEVERE) OBESITY DUE TO EXCESS CA 07/08/2016 SMOMER EVANS Ot F17.210 NICOTINE DEPENDENCE, CIGARETTES, UNCOMPL 07/08/2016 SOMMER EVANS Ot I 10 ESSENTIAL (PRIMARY) HYPERTENSION 07/08/2016 SOMMER EVANS Ot L03.113 CELLULITIS OF RIGHT UPPER LIMB 07/08/2016 SOMMER EVANS Ot Z79.899 OTHER NURSING HOME (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 THERAPY 07/13/2016 MAGALYS HEBERT DO Ot F17.210 NICOTINE DEPENDENCE, CIGARETTES, UNCOMPL 07/13/2016 MAGALYS HEBERT DO Ot F32.9 MAJOR DEPRESSIVE DISORDER, SINGLE EPISOD 07/13/2016 MAGALYS HEBERT DO Ot F41.9 ANXIETY DISORDER, UNSPECIFIED 07/13/2016 MAGALYS HEBERT DO Ot I10 ESSENTIAL (PRIMARY) HYPERTENSION 07/13/2016 MAGALYS HEBERT DO Ot J45.909 UNSPECIFIED ASTHMA, UNCOMPLICATED 07/13/2016 MAGALYS HEBERT DO Ot K21.9 GASTRO-ESOPHAGEAL REFLUX DISEASE WITHOUT 07/13/2016 MAGALYS HEBERT DO Ot L03.113 CELLULITIS OF RIGHT UPPER LIMB 07/13/2016 MAGALYS HEBERT DO Ot M65.141 OTHER INFECTIVE (TENO)SYNOVITIS, RIGHT H 07/15/2016 SOMMER EVANS Ot E66.01 MORBID (SEVERE) OBESITY DUE TO EXCESS CA 07/15/2016 SOMMER EVANS Ot F17.210 NICOTINE DEPENDENCE, CIGARETTES, UNCOMPL 07/15/2016 SOMMER EVANS Ot I 10 ESSENTIAL (PRIMARY) HYPERTENSION 07/15/2016 SOMMER EVANS Ot L03.113 CELLULITIS OF RIGHT UPPER LIMB 07/15/2016 SOMMER EVANS Ot Z79.899 OTHER NURSING HOME (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 THERAPY 07/16/2016 MAGALSY HEBERT DO Ot F17.210 NICOTINE DEPENDENCE, CIGARETTES, UNCOMPL 07/16/2016 MAGALYS HEBERT DO Ot F32.9 MAJOR DEPRESSIVE DISORDER, SINGLE EPISOD 07/16/2016 MAGALYS HEBERT DO Ot F41.9 ANXIETY DISORDER, UNSPECIFIED 07/16/2016 MAGALYS HEBERT DO Ot I10 ESSENTIAL (PRIMARY) HYPERTENSION 07/16/2016 MAGALYS HEBERT DO Ot J45.909 UNSPECIFIED ASTHMA, UNCOMPLICATED 07/16/2016 MAGALYS HEBERT DO Ot K21.9 GASTRO-ESOPHAGEAL REFLUX DISEASE WITHOUT 07/16/2016 MAGALYS HEBERT DO Ot L03.113 CELLULITIS OF RIGHT UPPER LIMB 07/16/2016 MAGALYS HEBERT DO Ot M65.141 OTHER INFECTIVE (TENO)SYNOVITIS, RIGHT H 07/17/2016 SOMMER EVANS Ot E66.01 MORBID (SEVERE) OBESITY DUE TO EXCESS CA 07/17/2016 SOMMER EVANS Ot J20.8 ACUTE BRONCHITIS DUE TO OTHER SPECIFIED 07/17/2016 SOMMER EVANS Ot R40.0 SOMNOLENCE 07/17/2016 SOMMER EVANS Ot T40.2X5A ADVERSE EFFECT OF OTHER OPIOIDS, INITIAL 07/17/2016 SOMMER EVANS Ot 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 07/17/2016 SOMMER EVANS Ot Z98.890 OTHER SPECIFIED POSTPROCEDURAL STATES 07/19/2016 MAGALYS HEBERT DO Ot F17.210 NICOTINE DEPENDENCE, CIGARETTES, UNCOMPL 07/19/2016 MAGALYS HEBERT DO Ot F32.9 MAJOR DEPRESSIVE DISORDER, SINGLE EPISOD 07/19/2016 MAGALYS HEBERT DO Ot F41.9 ANXIETY DISORDER, UNSPECIFIED 07/19/2016 MAGALYS HEBERT DO Ot I10 ESSENTIAL (PRIMARY) HYPERTENSION 07/19/2016 MAGALYS HEBERT DO Ot J45.909 UNSPECIFIED ASTHMA, UNCOMPLICATED 07/19/2016 MAGALYS HEBERT DO Ot K21.9 GASTRO-ESOPHAGEAL REFLUX DISEASE WITHOUT 07/19/2016 MAGALYS HEBERT DO Ot L03.113 CELLULITIS OF RIGHT UPPER LIMB 07/19/2016 MAGALYS HEBERT DO Ot M65.141 OTHER INFECTIVE (TENO)SYNOVITIS, RIGHT H 07/19/2016 MAGALYS HEBERT DO Ot F17.210 NICOTINE DEPENDENCE, CIGARETTES, UNCOMPL 07/19/2016 EMILEE COFFMANMAGALYS Ot F32.9 MAJOR DEPRESSIVE DISORDER, SINGLE EPISOD 07/19/2016 EMILEE COFFMANMAGALYS Ot F41.9 ANXIETY DISORDER, UNSPECIFIED 07/19/2016 EMILEE COFFMANMAGALYS Ot I10 ESSENTIAL (PRIMARY) HYPERTENSION 07/19/2016 EMILEE COFFMANMAGALYS Ot J45.909 UNSPECIFIED ASTHMA, UNCOMPLICATED 07/19/2016 EMILEE MAGALYS COFFMAN Ot K21.9 GASTRO-ESOPHAGEAL REFLUX DISEASE WITHOUT 07/19/2016 EMILEE MAGALYS COFFMAN Ot L03.113 CELLULITIS OF RIGHT UPPER LIMB 07/19/2016 EMILEE MAGALYS COFFMAN Ot M65.141 OTHER INFECTIVE (TENO)SYNOVITIS, RIGHT H 07/19/2016 SOMMER EVANS Ot E66.01 MORBID (SEVERE) OBESITY DUE TO EXCESS CA 07/19/2016 SOMMER EVANS Ot J20.8 ACUTE BRONCHITIS DUE TO OTHER SPECIFIED 07/19/2016 SOMMER EVANS Ot R40.0 SOMNOLENCE 07/19/2016 SOMMER EVANS Ot T40.2X5A ADVERSE EFFECT OF OTHER OPIOIDS, INITIAL 07/19/2016 SOMMER EVANS Ot 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 9 MAJOR DEPRESSIVE DISORDER, SINGLE EPISOD 07/26/2016 STEPHANIE ARROYO MD, Ot F41. 9 ANXIETY DISORDER, UNSPECIFIED 07/26/2016 STEPHANIE ARROYO MD, Ot L03.114 CELLULITIS OF LEFT UPPER LIMB 07/26/2016 STEPHANIE ARROYO MD, Ot Z91. 14 PATIENT'S OTHER NONCOMPLIANCE WITH MEDIC 07/30/2016 PAPITO JACOBS MD, Ot L02.511 CUTANEOUS ABSCESS OF RIGHT HAND 07/30/2016 PAPITO JACOBS MD Ot L03.113 CELLULITIS OF RIGHT UPPER LIMB 07/30/2016 PAPITO JACOBS MD, Ot L02.511 CUTANEOUS ABSCESS OF RIGHT HAND 07/30/2016 PAPITO JACOBS MD Ot L03.113 CELLULITIS OF RIGHT UPPER LIMB 09/24/2016 Ot 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 09/24/2016 ADAN JOYCE, RAN M Ot V72.84 EXAM PRE-OPERATIVE NOS 09/24/2016 NENO WOODRUFF WAITER AND CASHIER Ot 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 09/24/2016 MARIAN, PRIETO R INSPECTOR PACKAGER Ot 724.2 LUMBAGO 09/24/2016 MARIAN PRIETO R INSPECTOR PACKAGER Ot 724.3 SCIATICA 09/24/2016 PAPITO JACOBS MD Ot 790.29 OTHER ABNORMAL GLUCOSE 09/24/2016 PAPITO JACOBS MD Ot 443 .9 PERIPH VASCULAR DIS NOS 09/24/2016 PAPITO JACOBS MD Ot 707.15 ULCER OF OTHER PART OF FOOT 09/24/2016 NENO WOODRUFF WAITER AND CASHIER Ot 611.72 LUMP OR MASS IN BREAST 09/24/2016 NENO WOODRUFF Ot 611.79 SYMPTOMS IN BREAST NEC 10/05/2016 Ot 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 10/05/2016 ADAN JOYCE, RAN M Ot V72.84 EXAM PRE-OPERATIVE NOS 10/05/2016 NENO WOODRUFFP Ot 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 10/05/2016 PRIETO FONSECA R INSPECTOR PACKAGER Ot 724.2 LUMBAGO 10/05/2016 PRIETO FONSECA R INSPECTOR PACKAGER Ot 724.3 SCIATICA 10/05/2016 PAPITO JACOBS MD Ot 790.29 OTHER ABNORMAL GLUCOSE 10/05/2016 PAPITO JACOBS MD Ot 443 .9 PERIPH VASCULAR DIS NOS 10/05/2016 PAPITO JACOBS MD Ot 707.15 ULCER OF OTHER PART OF FOOT 10/05/2016 NENO WOODRUFF Ot 611.72 LUMP OR MASS IN BREAST 10/05/2016 NENO WOODRUFF Ot 611.79 SYMPTOMS IN BREAST NEC 10/05/2016 TAE CUNHA APRN Ot E66.01 MORBID (SEVERE) OBESITY DUE TO EXCESS CA 10/05/2016 TAE CUNHA APRN Ot F17.210 NICOTINE DEPENDENCE, CIGARETTES, UNCOMPL 10/05/2016 TAE CUNHA INSPECTOR PACKAGER Ot I10 ESSENTIAL (PRIMARY) HYPERTENSION 10/05/2016 TAE CUNHA INSPECTOR PACKAGER Ot L02.31 CUTANEOUS ABSCESS OF BUTTOCK 10/05/2016 TAE CUNHA INSPECTOR PACKAGER Ot M79 .9 SOFT TISSUE DISORDER, UNSPECIFIED 10/05/2016 TAE CUNHA INSPECTOR PACKAGER Ot 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 12/06/2016 Ot 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 12/06/2016 ADAN JOYCE, RAN Hughes Ot V72.84 EXAM PRE-OPERATIVE NOS 12/06/2016 NENO WOODRUFF WAITER AND CASHIER Ot 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 12/06/2016 PRIETO FONSECA INSPECTOR PACKAGER Ot 724.2 LUMBAGO 12/06/2016 PRIETO FONSECA INSPECTOR PACKAGER Ot 724.3 SCIATICA 12/06/2016 REYNALDO JOYCE, PAPITO Hector Ot 790.29 OTHER ABNORMAL GLUCOSE 12/06/2016 REYNALDO JOYCE, PAPITO Hector Ot 443 .9 PERIPH VASCULAR DIS NOS 12/06/2016 REYNALDO JOYCE, PAPITO Hector Ot 707.15 ULCER OF OTHER PART OF FOOT 12/06/2016 NENO WOODRUFF WAITER AND CASHIER Ot 611.72 LUMP OR MASS IN BREAST 12/06/2016 NENO WOODRUFF WAITER AND CASHIER Ot 611.79 SYMPTOMS IN BREAST NEC 12/12/2016 LEWIS FLORES DO Ot B37.3 CANDIDIASIS OF VULVA AND VAGINA 12/12/2016 SUMIT FLORES DOI Ot E66.01 MORBID (SEVERE) OBESITY DUE TO EXCESS CA 12/12/2016 MARK COFFMAN LEWIS Ot E87.6 HYPOKALEMIA 12/12/2016 MARK COFFMAN LEWIS Ot F17.21 0 NICOTINE DEPENDENCE, CIGARETTES, UNCOMPL 12/12/2016 MARK COFFMAN LEWIS Ot F41.9 ANXIETY DISORDER, UNSPECIFIED 12/12/2016 MARK COFFMAN LEWIS Ot 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, UNSP, NOT INTRACTABLE, WITHOUT 12/12/2016 MARK COFFMAN LEWIS Ot I10 ESSENTIAL (PRIMARY) HYPERTENSION 12/12/2016 MARK COFFMAN LEWIS Ot K21.9 GASTRO-ESOPHAGEAL REFLUX DISEASE WITHOUT 12/12/2016 SUMIT FLORES DOI Ot L03.11 3 CELLULITIS OF RIGHT UPPER LIMB 12/12/2016 LEWIS FLORES DO Ot Z68.41 BODY MASS INDEX (BMI) 40.0-44.9, ADULT 01/25/2017 AL JEAN BAPTISTE MD Ot E66.0 1 MORBID (SEVERE) OBESITY DUE TO EXCESS CA 01/25/2017 AL JEAN BAPTISTE MD Ot F17.2 10 NICOTINE DEPENDENCE, CIGARETTES, UNCOMPL 01/25/2017 AL JEAN BAPTISTE MD Ot F32.9 MAJOR DEPRESSIVE DISORDER, SINGLE EPISOD 01/25/2017 AL JEAN BAPTISTE MD Ot F41.9 ANXIETY DISORDER, UNSPECIFIED 01/25/2017 AL JEAN BAPTISTE MD, Ot G40.9 09 EPILEPSY, UNSP, NOT INTRACTABLE, WITHOUT 01/25/2017 AL JEAN BAPTISTE MD Ot I10 ESSENTIAL (PRIMARY) HYPERTENSION 01/25/2017 AL JEAN BAPTISTE MD, Ot K21.9 GASTRO-ESOPHAGEAL REFLUX DISEASE WITHOUT 01/25/2017 AL JEAN BAPTISTE MD Ot L03.1 13 CELLULITIS OF RIGHT UPPER LIMB 01/25/2017 AL JEAN BAPTISTE MD Ot Z68.4 1 BODY MASS INDEX (BMI) 40.0-44.9, ADULT 01/25/2017 AL JEAN BAPTISTE MD Ot Z91.1 9 PATIENT'S NONCOMPLIANCE W [facility] 02/05/2017 JORDAN THACKER MD Ot R03. 1 NONSPECIFIC LOW BLOOD-PRESSURE READING 02/05/2017 JORDAN THACKER MD Ot R09. 02 HYPOXEMIA 02/07/2017 JORDAN THACKER MD Ot R03. 1 NONSPECIFIC LOW BLOOD-PRESSURE READING 02/07/2017 JORDAN THACKER MD Ot R09. 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 02/09/2017 FLORIAN PA, SOMMER L Ot G40.909 EPILEPSY, UNSP, NOT INTRACTABLE, WITHOUT 02/09/2017 SOMMER EVANS Ot I 10 ESSENTIAL (PRIMARY) HYPERTENSION 02/09/2017 SOMMER EVANS Ot J45.909 UNSPECIFIED ASTHMA, UNCOMPLICATED 02/09/2017 SOMMER EVANS Ot K21.9 GASTRO-ESOPHAGEAL REFLUX DISEASE WITHOUT 02/09/2017 SOMMER EVANS Ot M47.9 SPONDYLOSIS, UNSPECIFIED 02/09/2017 SOMMER EVANS Ot R06.4 HYPERVENTILATION 02/09/2017 SOMMER EVANS Ot R11.2 NAUSEA WITH VOMITING, UNSPECIFIED 02/09/2017 SOMMER EVANS Ot R19.7 DIARRHEA, UNSPECIFIED 02/09/2017 SOMMER EVANS Ot Z68.35 BODY MASS INDEX (BMI) 35.0-35.9, ADULT 02/09/2017 SOMMER EVANS Ot Z87.42 PERSONAL HISTORY OF OTH DISEASES OF THE 02/09/2017 SOMMER EVANS Ot Z87.59 PERSONAL HISTORY OF COMP OF PREG, CHLDBR 02/09/2017 SOMMER EVANS Ot Z90.49 ACQUIRED ABSENCE OF OTHER SPECIFIED PART 02/09/2017 SOMMER EVANS Ot Z90.710 ACQUIRED ABSENCE OF BOTH CERVIX AND UTER 02/09/2017 SOMMER EVANS Ot 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 OTHER ORGANS 02/09/2017 SHAHNAZ ARAIZA MD Ot L03.313 CELLULITIS OF CHEST WALL 02/10/2017 SHAHNAZ ARAIZA MD Ot L03.313 CELLULITIS OF CHEST WALL 02/10/2017 SHAHNAZ ARAIZA MD Ot L03.313 CELLULITIS OF CHEST WALL 02/10/2017 SOMMER EVANS Ot E66.9 OBESITY, UNSPECIFIED 02/10/2017 SOMMER EVANS Ot F32.9 MAJOR DEPRESSIVE DISORDER, SINGLE EPISOD 02/10/2017 SOMMER EVANS Ot 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 02/10/2017 SOMMER EVANS Ot G40.909 EPILEPSY, UNSP, NOT INTRACTABLE, WITHOUT 02/10/2017 SOMMER EVANS Ot I 10 ESSENTIAL (PRIMARY) HYPERTENSION 02/10/2017 SOMMER EVANS Ot J45.909 UNSPECIFIED ASTHMA, UNCOMPLICATED 02/10/2017 SOMMER EVANS Ot K21.9 GASTRO-ESOPHAGEAL REFLUX DISEASE WITHOUT 02/10/2017 SOMMER EVANS Ot M47.9 SPONDYLOSIS, UNSPECIFIED 02/10/2017 SOMMER EVANS Ot R06.4 HYPERVENTILATION 02/10/2017 SOMMER EVANS Ot R11.2 NAUSEA WITH VOMITING, UNSPECIFIED 02/10/2017 SOMMER EVANS Ot R19.7 DIARRHEA, UNSPECIFIED 02/10/2017 SOMMER EVANS Ot Z68.35 BODY MASS INDEX (BMI) 35.0-35.9, ADULT 02/10/2017 SOMMER EVANS Ot Z87.42 PERSONAL HISTORY OF OTH DISEASES OF THE 02/10/2017 SOMMER EVANS Ot Z87.59 PERSONAL HISTORY OF COMP OF PREG, CHLDBR 02/10/2017 SOMMER EVANS Ot Z90.49 ACQUIRED ABSENCE OF OTHER SPECIFIED PART 02/10/2017 SOMMER EVANS Ot Z90.710 ACQUIRED ABSENCE OF BOTH CERVIX AND UTER 02/10/2017 SOMMER EVANS Ot 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 OTHER ORGANS 02/11/2017 SOMMER EVANS Ot E66.9 OBESITY, UNSPECIFIED 02/11/2017 SOMMER EVANS Ot F32.9 MAJOR DEPRESSIVE DISORDER, SINGLE EPISOD 02/11/2017 SOMMER EVANS Ot 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 02/11/2017 SOMMER EVANS Ot G40.909 EPILEPSY, UNSP, NOT INTRACTABLE, WITHOUT 02/11/2017 SOMMER EVANS Ot I 10 ESSENTIAL (PRIMARY) HYPERTENSION 02/11/2017 SOMMER EVANS Ot J45.909 UNSPECIFIED ASTHMA, UNCOMPLICATED 02/11/2017 SOMMER EVANS Ot K21.9 GASTRO-ESOPHAGEAL REFLUX DISEASE WITHOUT 02/11/2017 SOMMER EVANS Ot M47.9 SPONDYLOSIS, UNSPECIFIED 02/11/2017 SOMMER EVANS Ot R06.4 HYPERVENTILATION 02/11/2017 FLORIAN PA, SOMMER L Ot R11.2 NAUSEA WITH VOMITING, UNSPECIFIED 02/11/2017 SOMMER EVANS Ot R19.7 DIARRHEA, UNSPECIFIED 02/11/2017 SOMMER EVANS Ot Z68.35 BODY MASS INDEX (BMI) 35.0-35.9, ADULT 02/11/2017 SOMMER EVANS Ot Z87.42 PERSONAL HISTORY OF OTH DISEASES OF THE 02/11/2017 SOMMER EVANS Ot Z87.59 PERSONAL HISTORY OF COMP OF PREG, CHLDBR 02/11/2017 SOMMER EVANS Ot Z90.49 ACQUIRED ABSENCE OF OTHER SPECIFIED PART 02/11/2017 SOMMER EVANS Ot Z90.710 ACQUIRED ABSENCE OF BOTH CERVIX AND UTER 02/11/2017 SOMMER EVANS Ot 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 OTHER ORGANS 02/11/2017 SHAHNAZ ARAIZA MD Ot L03.313 CELLULITIS OF CHEST WALL 02/12/2017 SHAHNAZ ARAIZA MD Ot L03.313 CELLULITIS OF CHEST WALL 02/12/2017 SHAHNAZ ARAIZA MD Ot L03.313 CELLULITIS OF CHEST WALL 02/13/2017 SHAHNAZ ARAIZA MD Ot L03.313 CELLULITIS OF CHEST WALL 02/13/2017 Ot 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 02/13/2017 ADAN JOYCE, RAN Hughes Ot V72.84 EXAM PRE-OPERATIVE NOS 02/13/2017 NENO WOODRUFF Ot 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 02/13/2017 PRIETO FONSECA INSPECTOR PACKAGER Ot 724.2 LUMBAGO 02/13/2017 PRIETO FONSECA INSPECTOR PACKAGER Ot 724.3 SCIATICA 02/13/2017 PAPITO JACOBS MD Ot 790.29 OTHER ABNORMAL GLUCOSE 02/13/2017 PAPITO JACOBS MD Ot 443 .9 PERIPH VASCULAR DIS NOS 02/13/2017 PAPITO JACOBS MD Ot 707.15 ULCER OF OTHER PART OF FOOT 02/13/2017 NENO WOODRUFF Ot 611.72 LUMP OR MASS IN BREAST 02/13/2017 NENO WOODRUFF Ot 611.79 SYMPTOMS IN BREAST NEC 02/13/2017 SHAHNAZ ARAIZA MD Ot L03.313 CELLULITIS OF CHEST WALL 02/13/2017 SHAHNAZ ARAIZA MD Ot L03.313 CELLULITIS OF CHEST WALL 02/14/2017 SHAHNAZ ARAIZA MD Ot L03.313 CELLULITIS OF CHEST WALL 02/14/2017 SHAHNAZ ARAIZA MD Ot L03.313 CELLULITIS OF CHEST WALL 02/14/2017 SHAHNAZ ARAIZA MD Ot L03.313 CELLULITIS OF CHEST WALL 02/14/2017 SHAHNAZ ARAIZA MD Ot L03.313 CELLULITIS OF CHEST WALL 02/19/2017 SHAHNAZ ARAIZA MD Ot L03.313 CELLULITIS OF CHEST WALL 02/21/2017 SHAHNAZ ARAIZA MD Ot L03.313 CELLULITIS OF CHEST WALL 05/14/2017 SHAHNAZ ARAIZA MD Ot L03.313 CELLULITIS OF CHEST WALL 05/17/2017 SHAHNAZ ARAIZA MD Ot L03.313 CELLULITIS OF CHEST WALL 06/20/2017 SOMMER EVANS Ot E66.01 MORBID (SEVERE) OBESITY DUE TO EXCESS CA 06/20/2017 SOMMER EVANS Ot F32.9 MAJOR DEPRESSIVE DISORDER, SINGLE EPISOD 06/20/2017 SOMMER EVANS Ot F41.9 ANXIETY DISORDER, UNSPECIFIED 06/20/2017 SOMMER EVANS Ot J20.9 ACUTE BRONCHITIS, UNSPECIFIED 06/20/2017 SOMMER EVANS Ot J45.909 UNSPECIFIED ASTHMA, UNCOMPLICATED 06/20/2017 SOMMER EVANS Ot K21.9 GASTRO-ESOPHAGEAL REFLUX DISEASE WITHOUT 06/20/2017 SOMMER EVANS Ot L03.113 CELLULITIS OF RIGHT UPPER LIMB 06/20/2017 SOMMER EVANS Ot R 05 COUGH 06/20/2017 SOMMER EVANS Ot Z79.82 NURSING HOME (CURRENT) USE OF ASPIRIN 06/20/2017 SOMMER EVANS Ot Z82.49 FAMILY HX OF ISCHEM HEART DIS AND OTH DI 06/20/2017 SOMMER EVANS Ot Z87.19 PERSONAL HISTORY OF OTHER DISEASES OF TH 06/20/2017 SOMMER EVANS Ot Z87.59 PERSONAL HISTORY OF COMP OF PREG, CHLDBR 06/20/2017 SOMMER EVANS Ot Z88.0 ALLERGY STATUS TO PENICILLIN 06/20/2017 SOMMER EVANS Ot Z88.5 ALLERGY STATUS TO NARCOTIC AGENT STATUS 06/20/2017 SOMMER EVANS Ot Z88.8 ALLERGY STATUS TO OTH DRUG/MEDS/BIOL SUB 06/20/2017 SOMMER EVANS Ot Z90.49 ACQUIRED ABSENCE OF OTHER SPECIFIED PART 06/20/2017 SOMMER EVANS Ot Z90.710 ACQUIRED ABSENCE OF BOTH CERVIX AND UTER 06/20/2017 SOMMER EVANS Ot 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 OTHER ORGANS 06/21/2017 Ot 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 06/21/2017 ADAN JOYCE, RAN Hughes Ot V72.84 EXAM PRE-OPERATIVE NOS 06/21/2017 NENO WOODRUFF WAITER AND CASHIER Ot 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 06/21/2017 PRIETO FONSECA R INSPECTOR PACKAGER Ot 724.2 LUMBAGO 06/21/2017 MARIAN PRIETO R INSPECTOR PACKAGER Ot 724.3 SCIATICA 06/21/2017 PAPITO JACOBS MD Ot 790.29 OTHER ABNORMAL GLUCOSE 06/21/2017 PAPITO JACOBS MD Ot 443 .9 PERIPH VASCULAR DIS NOS 06/21/2017 PAPITO JACOBS MD Ot 707.15 ULCER OF OTHER PART OF FOOT 06/21/2017 NENO WOODRUFF WAITER AND CASHIER Ot 611.72 LUMP OR MASS IN BREAST 06/21/2017 NENO WOODRUFF WAITER AND CASHIER Ot 611.79 SYMPTOMS IN BREAST NEC 06/21/2017 JOSE G JOYCE, SHAHNAZ Ybarra Ot L03.313 CELLULITIS OF CHEST WALL 07/02/2017 Ot 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 07/02/2017 RAN ARELLANO MD Ot V72.84 EXAM PRE-OPERATIVE NOS 07/02/2017 NENO WOODRUFF WAITER AND CASHIER Ot 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 07/02/2017 PRIETO FONSECA R INSPECTOR PACKAGER Ot 724.2 LUMBAGO 07/02/2017 MARIAN PRIETO R INSPECTOR PACKAGER Ot 724.3 SCIATICA 07/02/2017 PAPITO JACOBS MD Ot 790.29 OTHER ABNORMAL GLUCOSE 07/02/2017 PAPITO JACOBS MD Ot 443 .9 PERIPH VASCULAR DIS NOS 07/02/2017 PAPITO JACOBS MD Ot 707.15 ULCER OF OTHER PART OF FOOT 07/02/2017 NENO WOODRUFF Ot 611.72 LUMP OR MASS IN BREAST 07/02/2017 NENO WOODRUFF Ot 611.79 SYMPTOMS IN BREAST NEC 07/02/2017 SHAHNAZ ARAIZA MD Ot L03.313 CELLULITIS OF CHEST WALL 07/02/2017 Ot 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 07/02/2017 ADAN JOYCE, RAN Hughes Ot V72.84 EXAM PRE-OPERATIVE NOS 07/02/2017 NENO WOODRUFF Ot 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 07/02/2017 PRIETO FONSECA INSPECTOR PACKAGER Ot 724.2 LUMBAGO 07/02/2017 PRIETO FONSECA INSPECTOR PACKAGER Ot 724.3 SCIATICA 07/02/2017 PAPITO JACOBS MD Ot 790.29 OTHER ABNORMAL GLUCOSE 07/02/2017 PAPITO JACOBS MD Ot 443 .9 PERIPH VASCULAR DIS NOS 07/02/2017 PAPITO JACOBS MD Ot 707.15 ULCER OF OTHER PART OF FOOT 07/02/2017 NENO WOODRUFF Ot 611.72 LUMP OR MASS IN BREAST 07/02/2017 NENO WOODRUFF Ot 611.79 SYMPTOMS IN BREAST NEC 07/02/2017 SHAHNAZ ARAIZA MD Ot L03.313 CELLULITIS OF CHEST WALL 07/02/2017 SHAHNAZ ARAIZA MD Ot L03.313 CELLULITIS OF CHEST WALL 07/02/2017 MARTHA CHASE DO Ot E66.01 MORBID (SEVERE) OBESITY DUE TO EXCESS CA 07/02/2017 MARTHA CHASE DO Ot F17.210 NICOTINE DEPENDENCE, CIGARETTES, UNCOMPL 07/02/2017 MARTHA CHASE DO Ot F32.9 MAJOR DEPRESSIVE DISORDER, SINGLE EPISOD 07/02/2017 MARTHA CHASE DO Ot F41.9 ANXIETY DISORDER, UNSPECIFIED 07/02/2017 MARTHA CHASE DO, Ot G40.909 EPILEPSY, UNSP, NOT INTRACTABLE, WITHOUT 07/02/2017 MARTHA CHASE DO Ot I10 ESSENTIAL (PRIMARY) HYPERTENSION 07/02/2017 MARTHA CHASE DO Ot J43.9 EMPHYSEMA, UNSPECIFIED 07/02/2017 MARTHA CHASE DO Ot K21.9 GASTRO-ESOPHAGEAL REFLUX DISEASE WITHOUT 07/02/2017 MARTHA CHASE DO Ot L03.113 CELLULITIS OF RIGHT UPPER LIMB 07/02/2017 MARTHA CHASE DO Ot Z68.35 BODY MASS INDEX (BMI) 35.0-35.9, ADULT 07/02/2017 MARTHA CHASE DO Ot Z79.82 NURSING HOME (CURRENT) USE OF ASPIRIN 07/02/2017 MARTHA CHASE DO, Ot Z82.49 FAMILY HX OF ISCHEM HEART DIS AND OTH DI 07/02/2017 MARTHA CHASE DO Ot Z86.14 PERSONAL HISTORY OF METHICILLIN RESIS ST 07/02/2017 MARTHA CHASE DO Ot Z87.19 PERSONAL HISTORY OF OTHER DISEASES OF TH 07/02/2017 MARTHA CHASE DO Ot Z87.59 PERSONAL HISTORY OF COMP OF PREG, CHLDBR 07/02/2017 MARTHA CHASE DO Ot Z88.0 ALLERGY STATUS TO PENICILLIN 07/02/2017 MARTHA CHASE DO Ot Z88.5 ALLERGY STATUS TO NARCOTIC AGENT STATUS 07/02/2017 MARTHA CHASE DO Ot Z88.6 ALLERGY STATUS TO ANALGESIC AGENT STATUS 07/02/2017 MARTHA CHASE DO, Ot Z88.8 ALLERGY STATUS TO OT DRUG/MEDS/BIOL SUB 07/02/2017 MARTHA CHASE DO Ot Z90.710 ACQUIRED ABSENCE OF BOTH CERVIX AND UTER 07/02/2017 MARTHA CHASE DO Ot 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 OTHER ORGANS 07/04/2017 MARTHA CHASE DO Ot E66.01 MORBID (SEVERE) OBESITY DUE TO EXCESS CA 07/04/2017 MARTHA CHASE DO Ot F17.210 NICOTINE DEPENDENCE, CIGARETTES, UNCOMPL 07/04/2017 MARTHA CHASE DO Ot F32.9 MAJOR DEPRESSIVE DISORDER, SINGLE EPISOD 07/04/2017 MARTHA CHASE DO Ot F41.9 ANXIETY DISORDER, UNSPECIFIED 07/04/2017 SALVATORE COFFMAN MARTHA Meredith Ot G40.909 EPILEPSY, UNSP, NOT INTRACTABLE, WITHOUT 07/04/2017 SALVATORE COFFMAN MARTHA Meredith Ot I10 ESSENTIAL (PRIMARY) HYPERTENSION 07/04/2017 SALVATORE COFFMAN MARTHA Masoud Ot J43.9 EMPHYSEMA, UNSPECIFIED 07/04/2017 SALVATORE COFFMAN MARTHA Masoud Ot K21.9 GASTRO-ESOPHAGEAL REFLUX DISEASE WITHOUT 07/04/2017 SALVATORE COFFMAN MARTHA Meredith Ot L03.113 CELLULITIS OF RIGHT UPPER LIMB 07/04/2017 SALVATORE COFFMAN MARTHA Masoud Ot Z68.35 BODY MASS INDEX (BMI) 35.0-35.9, ADULT 07/04/2017 SALVATORE COFFMAN MARTHA Meredith Ot 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 07/04/2017 SALVATORE MARTHA Masoud Ot Z82.49 FAMILY HX OF ISCHEM HEART DIS AND OTH DI 07/04/2017 SALVATORE COFFMAN MARTHA Masoud Ot Z86.14 PERSONAL HISTORY OF METHICILLIN RESIS ST 07/04/2017 SALVATORE DOMARTHA Ot Z87.19 PERSONAL HISTORY OF OTHER DISEASES OF TH 07/04/2017 SALVATORE COFFMANMAYRAA Masoud Ot Z87.59 PERSONAL HISTORY OF COMP OF PREG, CHLDBR 07/04/2017 SALVATORE COFFMAN MARTHA Masoud Ot Z88.0 ALLERGY STATUS TO PENICILLIN 07/04/2017 SALVATORE MARTHA Masoud Ot Z88.5 ALLERGY STATUS TO NARCOTIC AGENT STATUS 07/04/2017 SALVATORE COFFMAN MARTHA Masoud Ot Z88.6 ALLERGY STATUS TO ANALGESIC AGENT STATUS 07/04/2017 SALVATORE MARTHA Masoud Ot Z88.8 ALLERGY STATUS TO OT DRUG/MEDS/BIOL SUB 07/04/2017 SALVATORE COFFMAN MARTHA Masoud Ot Z90.710 ACQUIRED ABSENCE OF BOTH CERVIX AND UTER 07/04/2017 SALVATORE DO MARTHA K Ot 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 OTHER ORGANS 07/23/2017 Ot 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 07/23/2017 ADAN JOYCE, RAN Hughes Ot V72.84 EXAM PRE-OPERATIVE NOS 07/23/2017 NENO WOODRUFF WAITER AND CASHIER Ot 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 07/23/2017 PRIETO FONSECA INSPECTOR PACKAGER Ot 724.2 LUMBAGO 07/23/2017 PRIETO FONSECA INSPECTOR PACKAGER Ot 724.3 SCIATICA 07/23/2017 REYNALDO JOYCE, PAPITO Hector Ot 790.29 OTHER ABNORMAL GLUCOSE 07/23/2017 REYNALDO JOYCE, PAPITO Hector Ot 443 .9 PERIPH VASCULAR DIS NOS 07/23/2017 REYNALDO JOYCE, PAPITO Hector Ot 707.15 ULCER OF OTHER PART OF FOOT 07/23/2017 NENO WOODRUFF WAITER AND CASHIER Ot 611.72 LUMP OR MASS IN BREAST 07/23/2017 NENO WOODRUFF WAITER AND CASHIER Ot 611.79 SYMPTOMS IN BREAST NEC 07/23/2017 JOSE G JOYCE, SHAHNAZ Ybarra Ot L03.313 CELLULITIS OF CHEST WALL 07/23/2017 BRENNON GUAJARDO WAITER AND CASHIER Ot E66.01 MORBID (SEVERE) OBESITY DUE TO EXCESS CA 07/23/2017 CASANDRA BRENNON WAITER AND CASHIER Ot F32.9 MAJOR DEPRESSIVE DISORDER, SINGLE EPISOD 07/23/2017 CASANDRA, BRENNON WAITER AND CASHIER Ot F41.9 ANXIETY DISORDER, UNSPECIFIED 07/23/2017 CASANDRA BRENNON WAITER AND CASHIER Ot G40.909 EPILEPSY, UNSP, NOT INTRACTABLE, WITHOUT 07/23/2017 CASANDRA, BRENNON WAITER AND CASHIER Ot G47.9 SLEEP DISORDER, UNSPECIFIED 07/23/2017 CASANDRA, BRENNON WAITER AND CASHIER Ot I10 ESSENTIAL (PRIMARY) HYPERTENSION 07/23/2017 CASANDRA BRENNON WAITER AND CASHIER Ot J45.909 UNSPECIFIED ASTHMA, UNCOMPLICATED 07/23/2017 CASANDRA, BRENNON WAITER AND CASHIER Ot K21.9 GASTRO-ESOPHAGEAL REFLUX DISEASE WITHOUT 07/23/2017 CASANDRA, BRENNON WAITER AND CASHIER Ot T81.89XA OTH COMPLICATIONS OF PROCEDURES, NEC, IN 07/23/2017 CASANDRA BRENNON WAITER AND CASHIER Ot Z68.35 BODY MASS INDEX (BMI) 35.0-35.9, ADULT 07/23/2017 CASANDRA, BRENNON WAITER AND CASHIER Ot 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 07/23/2017 CASANDRA BRENNON WAITER AND CASHIER Ot Z86.19 PERSONAL HISTORY OF OTHER INFECTIOUS AND 07/23/2017 CASANDRA BRENNON WAITER AND CASHIER Ot Z87.42 PERSONAL HISTORY OF OTH DISEASES OF THE 07/23/2017 CASANDRA BRENNON WAITER AND CASHIER Ot Z88.0 ALLERGY STATUS TO PENICILLIN 07/23/2017 CASANDRA BRENNON WAITER AND CASHIER Ot Z88.5 ALLERGY STATUS TO NARCOTIC AGENT STATUS 07/23/2017 CASANDRABRENNON RiggsP Ot Z88.8 ALLERGY STATUS TO OTH DRUG/MEDS/BIOL SUB 07/23/2017 CASANDRABRENNON Riggs WAITER AND CASHIER Ot Z90.49 ACQUIRED ABSENCE OF OTHER SPECIFIED PART 07/23/2017 CASANDRABRENNON Riggs WAITER AND CASHIER Ot Z90.710 ACQUIRED ABSENCE OF BOTH CERVIX AND UTER 07/23/2017 CASANDRABRENNON Riggs WAITER AND CASHIER Ot 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 OTHER ORGANS 07/29/2017 CASANDRABRENNON RiggsP Ot E66.01 MORBID (SEVERE) OBESITY DUE TO EXCESS CA 07/29/2017 CASANDRABRENNON Riggs WAITER AND CASHIER Ot F32.9 MAJOR DEPRESSIVE DISORDER, SINGLE EPISOD 07/29/2017 BRENNON GUAJARDO WAITER AND CASHIER Ot F41.9 ANXIETY DISORDER, UNSPECIFIED 07/29/2017 BRENNON GUAJARDOP Ot G40.909 EPILEPSY, UNSP, NOT INTRACTABLE, WITHOUT 07/29/2017 CASANDRABRENNON RiggsP Ot G47.9 SLEEP DISORDER, UNSPECIFIED 07/29/2017 BRENNON GUAJARDOP Ot I10 ESSENTIAL (PRIMARY) HYPERTENSION 07/29/2017 BRENNON GUAJARDOP Ot J45.909 UNSPECIFIED ASTHMA, UNCOMPLICATED 07/29/2017 CASANDRABRENNON Riggs WAITER AND CASHIER Ot K21.9 GASTRO-ESOPHAGEAL REFLUX DISEASE WITHOUT 07/29/2017 BRENNON GUAJARDO WAITER AND CASHIER Ot T81.89XA OTH COMPLICATIONS OF PROCEDURES, NEC, IN 07/29/2017 BRENNON GUAJARDO WAITER AND CASHIER Ot Z68.35 BODY MASS INDEX (BMI) 35.0-35.9, ADULT 07/29/2017 BRENNON GUAJARDO WAITER AND CASHIER Ot Z79.82 NURSING HOME (CURRENT) USE OF ASPIRIN 07/29/2017 BRENNON GUAJARDO WAITER AND CASHIER Ot Z86.19 PERSONAL HISTORY OF OTHER INFECTIOUS AND 07/29/2017 CASANDRABRENNON Riggs WAITER AND CASHIER Ot Z87.42 PERSONAL HISTORY OF OTH DISEASES OF THE 07/29/2017 BRENNON GUAJARDOP Ot Z88.0 ALLERGY STATUS TO PENICILLIN 07/29/2017 BRENNON GUAJARDO WAITER AND CASHIER Ot Z88.5 ALLERGY STATUS TO NARCOTIC AGENT STATUS 07/29/2017 BRENNON GUAJARDO WAITER AND CASHIER Ot Z88.8 ALLERGY STATUS TO OTH DRUG/MEDS/BIOL SUB 07/29/2017 BRENNON GUAJARDO WAITER AND CASHIER Ot Z90.49 ACQUIRED ABSENCE OF OTHER SPECIFIED PART 07/29/2017 BRENNON GUAJARDOP Ot Z90.710 ACQUIRED ABSENCE OF BOTH CERVIX AND UTER 07/29/2017 BRENNON GUAJARDOP Ot 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 OTHER ORGANS 02/27/2018 MARCELLA FARRELL MD Ot E66. 01 MORBID (SEVERE) OBESITY DUE TO EXCESS CA 02/27/2018 MARCELLA FARRELL MD Ot F17.210 NICOTINE DEPENDENCE, CIGARETTES, UNCOMPL 02/27/2018 MARCELLA FARRELL MD Ot F32. 9 MAJOR DEPRESSIVE DISORDER, SINGLE EPISOD 02/27/2018 MARCELLA FARRELL MD Ot F41. 9 ANXIETY DISORDER, UNSPECIFIED 02/27/2018 MARCELLA FARRELL MD Ot G40.909 EPILEPSY, UNSP, NOT INTRACTABLE, WITHOUT 02/27/2018 MARCELLA FARRELL MD Ot I10 ESSENTIAL (PRIMARY) HYPERTENSION 02/27/2018 MARCELLA FARRELL MD, Ot J45.909 UNSPECIFIED ASTHMA, UNCOMPLICATED 02/27/2018 MARCELLA FARRELL MD Ot K21. 9 GASTRO-ESOPHAGEAL REFLUX DISEASE WITHOUT 02/27/2018 MARCELLA FARRELL MD Ot R07. 1 CHEST PAIN ON BREATHING 02/27/2018 MARCELLA FARRELL MD Ot R07. 81 PLEURODYNIA 02/27/2018 MARCELLA FARRELL MD Ot Z68. 41 BODY MASS INDEX (BMI) 40.0-44.9, ADULT 02/27/2018 MARCELLA FARRELL MD Ot Z79. 51 NURSING HOME (CURRENT) USE OF INHALED STERO 02/27/2018 MARCELLA FARRELL MD Ot Z79. 82 NURSING HOME (CURRENT) USE OF ASPIRIN 02/27/2018 MARCELLA FARRELL MD Ot Z82. 49 FAMILY HX OF ISCHEM HEART DIS AND OTH DI 02/27/2018 MARCELLA FARRELL MD Ot Z87. 19 PERSONAL HISTORY OF OTHER DISEASES OF TH 02/27/2018 MARCELLA FARRELL MD Ot Z87.448 PERSONAL HISTORY OF OTHER DISEASES OF UR 02/27/2018 MARCELLA FARRELL MD Ot Z88. 0 ALLERGY STATUS TO PENICILLIN 02/27/2018 MARCELLA FARRELL MD Ot Z88. 5 ALLERGY STATUS TO NARCOTIC AGENT STATUS 02/27/2018 MARCELLA FARRELL MD Ot Z88. 8 ALLERGY STATUS TO OTH DRUG/MEDS/BIOL SUB 02/27/2018 MARCELLA FARRELL MD Ot Z90.710 ACQUIRED ABSENCE OF BOTH CERVIX AND UTER 02/27/2018 MARCELLA FARRELL MD Ot Z90. 89 ACQUIRED ABSENCE OF OTHER ORGANS 02/27/2018 MARCELLA FARRELL MD Ot Z98.890 OTHER SPECIFIED POSTPROCEDURAL STATES 03/01/2018 MARCELLA FARRELL MD Ot E66. 01 MORBID (SEVERE) OBESITY DUE TO EXCESS CA 03/01/2018 MARCELLA FARRELL MD Ot F17.210 NICOTINE DEPENDENCE, CIGARETTES, UNCOMPL 03/01/2018 MARCELLA FARRELL MD Ot F32. 9 MAJOR DEPRESSIVE DISORDER, SINGLE EPISOD 03/01/2018 MARCELLA FARRELL MD Ot F41. 9 ANXIETY DISORDER, UNSPECIFIED 03/01/2018 MARCELLA FRARELL MD Ot G40.909 EPILEPSY, UNSP, NOT INTRACTABLE, WITHOUT 03/01/2018 MARCELLA FARRELL MD Ot I10 ESSENTIAL (PRIMARY) HYPERTENSION 03/01/2018 MARCELLA FARRELL MD Ot J45.909 UNSPECIFIED ASTHMA, UNCOMPLICATED 03/01/2018 MARCELLA FARRELL MD Ot K21. 9 GASTRO-ESOPHAGEAL REFLUX DISEASE WITHOUT 03/01/2018 MARCELLA FARRELL MD Ot R07. 1 CHEST PAIN ON BREATHING 03/01/2018 MARCELLA FARRELL MD Ot R07. 81 PLEURODYNIA 03/01/2018 MARCELLA FARRELL MD Ot Z68. 41 BODY MASS INDEX (BMI) 40.0-44.9, ADULT 03/01/2018 MARCELLA FARRELL MD Ot Z79. 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 49 FAMILY HX OF ISCHEM HEART DIS AND OTH DI 03/01/2018 MARCELLA FARRELL MD Ot Z87. 19 PERSONAL HISTORY OF OTHER DISEASES OF TH 03/01/2018 MARCELLA FARRELL MD Ot Z87.448 PERSONAL HISTORY OF OTHER DISEASES OF UR 03/01/2018 MARCELLA FARRELL MD Ot Z88. 0 ALLERGY STATUS TO PENICILLIN 03/01/2018 MARCELLA FARRELL MD Ot Z88. 5 ALLERGY STATUS TO NARCOTIC AGENT STATUS 03/01/2018 MARCELLA FARERLL MD Ot Z88. 8 ALLERGY STATUS TO OTH DRUG/MEDS/BIOL SUB 03/01/2018 MARCELLA FARRELL MD Ot Z90.710 ACQUIRED ABSENCE OF BOTH CERVIX AND UTER 03/01/2018 MARCELLA FARRELL MD Ot Z90. 89 ACQUIRED ABSENCE OF OTHER ORGANS 03/01/2018 MARCELLA FARRELL MD Ot Z98.890 OTHER SPECIFIED POSTPROCEDURAL STATES 03/05/2018 MARCELLA FARRELL MD Ot E66. 01 MORBID (SEVERE) OBESITY DUE TO EXCESS CA 03/05/2018 MARCELLA FARRELL MD Ot F17.210 NICOTINE DEPENDENCE, CIGARETTES, UNCOMPL 03/05/2018 MARCELLA FARRELL MD Ot F32. 9 MAJOR DEPRESSIVE DISORDER, SINGLE EPISOD 03/05/2018 MARCELLA FARRELL MD Ot F41. 9 ANXIETY DISORDER, UNSPECIFIED 03/05/2018 MARCELLA FARRELL MD Ot G40.909 EPILEPSY, UNSP, NOT INTRACTABLE, WITHOUT 03/05/2018 MARCELLA FARRELL MD Ot I10 ESSENTIAL (PRIMARY) HYPERTENSION 03/05/2018 MARCELLA FARRELL MD Ot J45.909 UNSPECIFIED ASTHMA, UNCOMPLICATED 03/05/2018 MARCELLA FARRELL MD Ot K21. 9 GASTRO-ESOPHAGEAL REFLUX DISEASE WITHOUT 03/05/2018 MARCELLA FARRELL MD Ot R07. 1 CHEST PAIN ON BREATHING 03/05/2018 MARCELLA FARRELL MD Ot R07. 81 PLEURODYNIA 03/05/2018 MARCELLA FARRELL MD Ot Z68. 41 BODY MASS INDEX (BMI) 40.0-44.9, ADULT 03/05/2018 MARCELLA FARRELL MD Ot Z79. 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 49 FAMILY HX OF ISCHEM HEART DIS AND OTH DI 03/05/2018 MARCELLA FARRELL MD Ot Z87. 19 PERSONAL HISTORY OF OTHER DISEASES OF TH 03/05/2018 MARCELLA FARRELL MD Ot Z87.448 PERSONAL HISTORY OF OTHER DISEASES OF UR 03/05/2018 MARCELLA FARRELL MD Ot Z88. 0 ALLERGY STATUS TO PENICILLIN 03/05/2018 MARCELLA FARRELL MD Ot Z88. 5 ALLERGY STATUS TO NARCOTIC AGENT STATUS 03/05/2018 MARCELLA FARRELL MD Ot Z88. 8 ALLERGY STATUS TO OTH DRUG/MEDS/BIOL SUB 03/05/2018 MARCELLA FARRELL MD Ot Z90.710 ACQUIRED ABSENCE OF BOTH CERVIX AND UTER 03/05/2018 MARCELLA FARRELL MD Ot Z90. 89 ACQUIRED ABSENCE OF OTHER ORGANS 03/05/2018 MARCELLA FARRELL MD Ot Z98.890 OTHER SPECIFIED POSTPROCEDURAL STATES 03/05/2018 BRENNON GUAJARDOP Ot E66.01 MORBID (SEVERE) OBESITY DUE TO EXCESS CA 03/05/2018 BRENNON GUAJARDO WAITER AND CASHIER Ot F12.10 CANNABIS ABUSE, UNCOMPLICATED 03/05/2018 CASANDRA BRENNON WAITER AND CASHIER Ot F17.210 NICOTINE DEPENDENCE, CIGARETTES, UNCOMPL 03/05/2018 BRENNON GUAJARDO WAITER AND CASHIER Ot F32.9 MAJOR DEPRESSIVE DISORDER, SINGLE EPISOD 03/05/2018 CASANDRA BRENNON WAITER AND CASHIER Ot F41.9 ANXIETY DISORDER, UNSPECIFIED 03/05/2018 CASANDRA BRENNON WAITER AND CASHIER Ot G40.909 EPILEPSY, UNSP, NOT INTRACTABLE, WITHOUT 03/05/2018 CASANDRA BRENNON WAITER AND CASHIER Ot I10 ESSENTIAL (PRIMARY) HYPERTENSION 03/05/2018 CASANDRA BRENNON WAITER AND CASHIER Ot J45.909 UNSPECIFIED ASTHMA, UNCOMPLICATED 03/05/2018 CASANDRA BRENNON WAITER AND CASHIER Ot K21.9 GASTRO-ESOPHAGEAL REFLUX DISEASE WITHOUT 03/05/2018 CASANDRA BRENNON WAITER AND CASHIER Ot M25.551 PAIN IN RIGHT HIP 03/05/2018 CASANDRA BRENNON WAITER AND CASHIER Ot M54.41 LUMBAGO WITH SCIATICA, RIGHT SIDE 03/05/2018 BRENNON GUAJARDO WAITER AND CASHIER Ot Z68.41 BODY MASS INDEX (BMI) 40.0-44.9, ADULT 03/05/2018 BRENNON GUAJARDO WAITER AND CASHIER Ot 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 03/05/2018 BRENNON GUAJARDO WAITER AND CASHIER Ot Z79.52 BURGLAR 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 (CURRENT) USE OF SYSTEMIC STER 03/05/2018 BRENNON GUAJARDO WAITER AND CASHIER Ot 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 03/05/2018 BRENNON GUAJARDOP Ot Z82.49 FAMILY HX OF ISCHEM HEART DIS AND OTH DI 03/05/2018 BRENNON GUAJARDOP Ot Z87.19 PERSONAL HISTORY OF OTHER DISEASES OF TH 03/05/2018 BRENNON GUAJARDO Ot Z87.448 PERSONAL HISTORY OF OTHER DISEASES OF UR 03/05/2018 BRENNON GUAJARDOP Ot Z88.0 ALLERGY STATUS TO PENICILLIN 03/05/2018 BRENNON GUAJARDO WAITER AND CASHIER Ot Z88.5 ALLERGY STATUS TO NARCOTIC AGENT STATUS 03/05/2018 BRENNON GUAJARDO WAITER AND CASHIER Ot Z88.8 ALLERGY STATUS TO OTH DRUG/MEDS/BIOL SUB 03/05/2018 BRENNON GUAJARDO WAITER AND CASHIER Ot Z90.710 ACQUIRED ABSENCE OF BOTH CERVIX AND UTER 03/05/2018 BRENNON GUAJARDOP Ot 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 OTHER ORGANS 03/05/2018 BRENNON GUAJARDO WAITER AND CASHIER Ot Z98.890 OTHER SPECIFIED POSTPROCEDURAL STATES 03/08/2018 BRENNON GUAJARDOP Ot E66.01 MORBID (SEVERE) OBESITY DUE TO EXCESS CA 03/08/2018 CASANDRA BRENNON WAITER AND CASHIER Ot F12.10 CANNABIS ABUSE, UNCOMPLICATED 03/08/2018 CASANDRA BRENNON WAITER AND CASHIER Ot F17.210 NICOTINE DEPENDENCE, CIGARETTES, UNCOMPL 03/08/2018 BRENNON GUAJARDO WAITER AND CASHIER Ot F32.9 MAJOR DEPRESSIVE DISORDER, SINGLE EPISOD 03/08/2018 CASANDRA BRENNON WAITER AND CASHIER Ot F41.9 ANXIETY DISORDER, UNSPECIFIED 03/08/2018 BRENNON GUAJARDO WAITER AND CASHIER Ot G40.909 EPILEPSY, UNSP, NOT INTRACTABLE, WITHOUT 03/08/2018 BRENNON GUAJARDO WAITER AND CASHIER Ot I10 ESSENTIAL (PRIMARY) HYPERTENSION 03/08/2018 BRENNON GUAJARDO WAITER AND CASHIER Ot J45.909 UNSPECIFIED ASTHMA, UNCOMPLICATED 03/08/2018 CASANDRA BRENNON WAITER AND CASHIER Ot K21.9 GASTRO-ESOPHAGEAL REFLUX DISEASE WITHOUT 03/08/2018 CASANDRA BRENNON WAITER AND CASHIER Ot M25.551 PAIN IN RIGHT HIP 03/08/2018 CASANDRA BRENNON WAITER AND CASHIER Ot M54.41 LUMBAGO WITH SCIATICA, RIGHT SIDE 03/08/2018 BRENNON GUAJARDO WAITER AND CASHIER Ot Z68.41 BODY MASS INDEX (BMI) 40.0-44.9, ADULT 03/08/2018 BRENNON GUAJARDO WAITER AND CASHIER Ot Z79.51 NURSING HOME (CURRENT) USE OF INHALED STERO 03/08/2018 BRENNON GUAJARDOP Ot Z79.52 BURGLAR 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 (CURRENT) USE OF SYSTEMIC STER 03/08/2018 BRENNON GUAJARDOP Ot 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 03/08/2018 BRENNON GUAJARDO WAITER AND CASHIER Ot Z82.49 FAMILY HX OF ISCHEM HEART DIS AND OTH DI 03/08/2018 BRENNON GUAJARDOP Ot Z87.19 PERSONAL HISTORY OF OTHER DISEASES OF TH 03/08/2018 BRENNON GUAJARDOP Ot Z87.448 PERSONAL HISTORY OF OTHER DISEASES OF UR 03/08/2018 BRENNON GUAJARDO WAITER AND CASHIER Ot Z88.0 ALLERGY STATUS TO PENICILLIN 03/08/2018 CASANDRA BRENNON WAITER AND CASHIER Ot Z88.5 ALLERGY STATUS TO NARCOTIC AGENT STATUS 03/08/2018 CASANDRA BRENNON WAITER AND CASHIER Ot Z88.8 ALLERGY STATUS TO OTH DRUG/MEDS/BIOL SUB 03/08/2018 BRENNON GUAJARDO WAITER AND CASHIER Ot Z90.710 ACQUIRED ABSENCE OF BOTH CERVIX AND UTER 03/08/2018 BRENNON GUAJARDO WAITER AND CASHIER Ot 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 OTHER ORGANS 03/08/2018 BRENNON GUAJARDO WAITER AND CASHIER Ot Z98.890 OTHER SPECIFIED POSTPROCEDURAL STATES 03/12/2018 BRENNON GUAJARDO WAITER AND CASHIER Ot E66.01 MORBID (SEVERE) OBESITY DUE TO EXCESS CA 03/12/2018 CASANDRA BRENNON WAITER AND CASHIER Ot F12.10 CANNABIS ABUSE, UNCOMPLICATED 03/12/2018 CASANDRA BRENNON WAITER AND CASHIER Ot F17.210 NICOTINE DEPENDENCE, CIGARETTES, UNCOMPL 03/12/2018 BRENNON GUAJARDO WAITER AND CASHIER Ot F32.9 MAJOR DEPRESSIVE DISORDER, SINGLE EPISOD 03/12/2018 CASANDRA BRENNON WAITER AND CASHIER Ot F41.9 ANXIETY DISORDER, UNSPECIFIED 03/12/2018 BRENNON GUAJARDO WAITER AND CASHIER Ot G40.909 EPILEPSY, UNSP, NOT INTRACTABLE, WITHOUT 03/12/2018 CASANDRA BRENNON WAITER AND CASHIER Ot I10 ESSENTIAL (PRIMARY) HYPERTENSION 03/12/2018 CASANDRA BRENNON WAITER AND CASHIER Ot J45.909 UNSPECIFIED ASTHMA, UNCOMPLICATED 03/12/2018 CASANDRA BRENNON WAITER AND CASHIER Ot K21.9 GASTRO-ESOPHAGEAL REFLUX DISEASE WITHOUT 03/12/2018 BRENNON GUAJARDO WAITER AND CASHIER Ot M25.551 PAIN IN RIGHT HIP 03/12/2018 BRENNON GUAJARDOP Ot M54.41 LUMBAGO WITH SCIATICA, RIGHT SIDE 03/12/2018 BRENNON GUAJARDOP Ot Z68.41 BODY MASS INDEX (BMI) 40.0-44.9, ADULT 03/12/2018 CASANDRABRENNON RiggsP Ot Z79.51 NURSING HOME (CURRENT) USE OF INHALED STERO 03/12/2018 BRENNON GUAJARDOP Ot Z79.52 NURSING HOME (CURRENT) USE OF SYSTEMIC STER 03/12/2018 BRENNON GUAJARDOP Ot Z79.82 NURSING HOME (CURRENT) USE OF ASPIRIN 03/12/2018 BRENNON GUAJARDO WAITER AND CASHIER Ot Z82.49 FAMILY HX OF ISCHEM HEART DIS AND OTH DI 03/12/2018 BRENNON GUAJARDOP Ot Z87.19 PERSONAL HISTORY OF OTHER DISEASES OF TH 03/12/2018 BRENNON GUAJARDOP Ot Z87.448 PERSONAL HISTORY OF OTHER DISEASES OF UR 03/12/2018 BRENNON GUAJARDO WAITER AND CASHIER Ot Z88.0 ALLERGY STATUS TO PENICILLIN 03/12/2018 BRENNON GUAJARDO WAITER AND CASHIER Ot Z88.5 ALLERGY STATUS TO NARCOTIC AGENT STATUS 03/12/2018 BRENNON GUAJARDO WAITER AND CASHIER Ot Z88.8 ALLERGY STATUS TO OTH DRUG/MEDS/BIOL SUB 03/12/2018 BRENNON GUAJARDO WAITER AND CASHIER Ot Z90.710 ACQUIRED ABSENCE OF BOTH CERVIX AND UTER 03/12/2018 BRENNON GUAJARDO WAITER AND CASHIER Ot 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 OTHER ORGANS 03/12/2018 BRENNON GUAJARDO WAITER AND CASHIER Ot Z98.890 OTHER SPECIFIED POSTPROCEDURAL STATES 03/17/2018 BRENNON GUAJARDO WAITER AND CASHIER Ot E66.01 MORBID (SEVERE) OBESITY DUE TO EXCESS CA 03/17/2018 BRENNON GUAJARDO WAITER AND CASHIER Ot F32.9 MAJOR DEPRESSIVE DISORDER, SINGLE EPISOD 03/17/2018 CASANDRA BRENNON WAITER AND CASHIER Ot F41.9 ANXIETY DISORDER, UNSPECIFIED 03/17/2018 BRENNON GUAJARDO WAITER AND CASHIER Ot G40.909 EPILEPSY, UNSP, NOT INTRACTABLE, WITHOUT 03/17/2018 BRENNON GUAJARDO WAITER AND CASHIER Ot G47.9 SLEEP DISORDER, UNSPECIFIED 03/17/2018 CASANDRA BRENNON WAITER AND CASHIER Ot I10 ESSENTIAL (PRIMARY) HYPERTENSION 03/17/2018 BRENNON GUAJARDO WAITER AND CASHIER Ot J45.909 UNSPECIFIED ASTHMA, UNCOMPLICATED 03/17/2018 BRENNON GUAJARDOP Ot K21.9 GASTRO-ESOPHAGEAL REFLUX DISEASE WITHOUT 03/17/2018 BRENNON GUAJARDOP Ot T81.89XA OTH COMPLICATIONS OF PROCEDURES, NEC, IN 03/17/2018 BRENNON GUAJARDO Ot Z68.35 BODY MASS INDEX (BMI) 35.0-35.9, ADULT 03/17/2018 BRENNON GUAJARDOP Ot Z79.82 NURSING HOME (CURRENT) USE OF ASPIRIN 03/17/2018 BRENNON GUAJARDOP Ot Z86.19 PERSONAL HISTORY OF OTHER INFECTIOUS AND 03/17/2018 BRENNON GUAJARDO Ot Z87.42 PERSONAL HISTORY OF OTH DISEASES OF THE 03/17/2018 BRENNON GUAJARDO Ot Z88.0 ALLERGY STATUS TO PENICILLIN 03/17/2018 CASANDRABRENNON WAITER AND CASHIER Ot Z88.5 ALLERGY STATUS TO NARCOTIC AGENT STATUS 03/17/2018 CASANDRABRENNON WAITER AND CASHIER Ot Z88.8 ALLERGY STATUS TO OTH DRUG/MEDS/BIOL SUB 03/17/2018 BRENNON GUAJARDOP Ot Z90.49 ACQUIRED ABSENCE OF OTHER SPECIFIED PART 03/17/2018 CASANDRA BRENNON LEEP Ot Z90.710 ACQUIRED ABSENCE OF BOTH CERVIX AND UTER 03/17/2018 CASANDRA BRENNON LEEP Ot 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 OTHER ORGANS 05/08/2018 MARCELLA FARRELL MD Ot E66. 01 MORBID (SEVERE) OBESITY DUE TO EXCESS CA 05/08/2018 MARCELLA FARRELL MD Ot F12. 10 CANNABIS ABUSE, UNCOMPLICATED 05/08/2018 MARCELLA FARRELL MD Ot F17.210 NICOTINE DEPENDENCE, CIGARETTES, UNCOMPL 05/08/2018 MARCELLA FARRELL MD Ot F32. 9 MAJOR DEPRESSIVE DISORDER, SINGLE EPISOD 05/08/2018 MARCELLA FARRELL MD Ot F41. 9 ANXIETY DISORDER, UNSPECIFIED 05/08/2018 MARCELLA FARRELL MD Ot G40.909 EPILEPSY, UNSP, NOT INTRACTABLE, WITHOUT 05/08/2018 MARCELLA FARRELL MD Ot I10 ESSENTIAL (PRIMARY) HYPERTENSION 05/08/2018 MARCELLA FARRELL MD Ot J43. 9 EMPHYSEMA, UNSPECIFIED 05/08/2018 MARCELLA FARRELL MD Ot K21. 9 GASTRO-ESOPHAGEAL REFLUX DISEASE WITHOUT 05/08/2018 MARCELLA FARRELL MD Ot R40.2142 COMA SCALE, EYES OPEN, SPONTANEOUS, EMR 05/08/2018 MARCELLA FARRELL MD, Ot R40.2252 COMA SCALE, BEST VERBAL RESPONSE, ORIENT 05/08/2018 MARCELLA FARRELL MD, Ot R40.2362 COMA SCALE, BEST MOTOR RESPONSE, OBEYS C 05/08/2018 MARCELLA FARRELL MD Ot S70.12XA CONTUSION OF LEFT THIGH, INITIAL ENCOUNT 05/08/2018 MARCELLA FARRELL MD Ot S80.01XA CONTUSION OF RIGHT KNEE, INITIAL ENCOUNT 05/08/2018 MARCELLA FARRELL MD Ot S80.02XA CONTUSION OF LEFT KNEE, INITIAL ENCOUNTE 05/08/2018 MARCELLA FARRELL MD Ot W10.8XXA FALL (ON) (FROM) OTHER STAIRS AND STEPS, 05/08/2018 MARCELLA FARRELL MD, Ot Z79. 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 52 BURGLAR 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 (CURRENT) USE OF SYSTEMIC STER 05/08/2018 MARCELLA FARRELL MD, Ot Z79. 82 NURSING HOME (CURRENT) USE OF ASPIRIN 05/08/2018 MARCELLA FARRELL MD, Ot Z82. 49 FAMILY HX OF ISCHEM HEART DIS AND OTH DI 05/08/2018 MARCELLA FARRELL MD, Ot Z86. 19 PERSONAL HISTORY OF OTHER INFECTIOUS AND 05/08/2018 MARCELLA FARRELL MD Ot Z87. 19 PERSONAL HISTORY OF OTHER DISEASES OF TH 05/08/2018 MARCELLA FARRELL MD Ot Z87.448 PERSONAL HISTORY OF OTHER DISEASES OF UR 05/08/2018 MARCELLA FARRELL MD, Ot Z88. 0 ALLERGY STATUS TO PENICILLIN 05/08/2018 MARCELLA FARRELL MD Ot Z88. 5 ALLERGY STATUS TO NARCOTIC AGENT STATUS 05/08/2018 MARCELLA FARRELL MD, Ot Z88. 6 ALLERGY STATUS TO ANALGESIC AGENT STATUS 05/08/2018 MARCELLA FARRELL MD Ot Z90. 49 ACQUIRED ABSENCE OF OTHER SPECIFIED PART 05/08/2018 MARCELLA FARRELL MD Ot Z90.710 ACQUIRED ABSENCE OF BOTH CERVIX AND UTER 05/08/2018 MARCELLA FARRELL MD Ot Z90. 89 ACQUIRED ABSENCE OF OTHER ORGANS 05/08/2018 MARCELLA FARRELL MD Ot Z98.890 OTHER SPECIFIED POSTPROCEDURAL STATES 05/11/2018 MARCELLA FARRELL MD Ot E66. 01 MORBID (SEVERE) OBESITY DUE TO EXCESS CA 05/11/2018 MARCELLA FARRELL MD Ot F12. 10 CANNABIS ABUSE, UNCOMPLICATED 05/11/2018 MARCELLA FARRELL MD Ot F17.210 NICOTINE DEPENDENCE, CIGARETTES, UNCOMPL 05/11/2018 MARCELLA FARRELL MD Ot F32. 9 MAJOR DEPRESSIVE DISORDER, SINGLE EPISOD 05/11/2018 MARCELLA FARRELL MD Ot F41. 9 ANXIETY DISORDER, UNSPECIFIED 05/11/2018 MARCELLA FARRELL MD Ot G40.909 EPILEPSY, UNSP, NOT INTRACTABLE, WITHOUT 05/11/2018 MARCELLA FARRELL MD Ot I10 ESSENTIAL (PRIMARY) HYPERTENSION 05/11/2018 MARCELLA FARRELL MD Ot J43. 9 EMPHYSEMA, UNSPECIFIED 05/11/2018 MARCELLA FARRELL MD Ot K21. 9 GASTRO-ESOPHAGEAL REFLUX DISEASE WITHOUT 05/11/2018 MARCELLA FARRELL MD Ot R40.2142 COMA SCALE, EYES OPEN, SPONTANEOUS, EMR 05/11/2018 MARCELLA FARRELL MD Ot R40.2252 COMA SCALE, BEST VERBAL RESPONSE, ORIENT 05/11/2018 MARCELLA FARRELL MD Ot R40.2362 COMA SCALE, BEST MOTOR RESPONSE, OBEYS C 05/11/2018 MARCELLA FARRELL MD Ot S70.12XA CONTUSION OF LEFT THIGH, INITIAL ENCOUNT 05/11/2018 MARCELLA FARRELL MD Ot S80.01XA CONTUSION OF RIGHT KNEE, INITIAL ENCOUNT 05/11/2018 MARCELLA FARRELL MD Ot S80.02XA CONTUSION OF LEFT KNEE, INITIAL ENCOUNTE 05/11/2018 MARCELLA FARRELL MD Ot W10.8XXA FALL (ON) (FROM) OTHER STAIRS AND STEPS, 05/11/2018 MARCELLA FARRELL MD Ot Z79. 51 NURSING HOME (CURRENT) USE OF INHALED STERO 05/11/2018 MARCELLA FARRELL MD Ot Z79. 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 49 FAMILY HX OF ISCHEM HEART DIS AND OTH DI 05/11/2018 MARCELLA FARRELL MD Ot Z86. 19 PERSONAL HISTORY OF OTHER INFECTIOUS AND 05/11/2018 MARCELLA FARRELL MD Ot Z87. 19 PERSONAL HISTORY OF OTHER DISEASES OF TH 05/11/2018 MARCELLA FARRELL MD Ot Z87.448 PERSONAL HISTORY OF OTHER DISEASES OF UR 05/11/2018 MARCELLA FARRELL MD Ot Z88. 0 ALLERGY STATUS TO PENICILLIN 05/11/2018 MARCELLA FARRELL MD Ot Z88. 5 ALLERGY STATUS TO NARCOTIC AGENT STATUS 05/11/2018 MARCELLA FARRELL MD Ot Z88. 6 ALLERGY STATUS TO ANALGESIC AGENT STATUS 05/11/2018 MARCELLA FARRELL MD Ot Z90. 49 ACQUIRED ABSENCE OF OTHER SPECIFIED PART 05/11/2018 MARCELLA FARRELL MD Ot Z90.710 ACQUIRED ABSENCE OF BOTH CERVIX AND UTER 05/11/2018 MARCELLA FARRELL MD Ot Z90. 89 ACQUIRED ABSENCE OF OTHER ORGANS 05/11/2018 MARCELLA FARRELL MD Ot Z98.890 OTHER SPECIFIED POSTPROCEDURAL STATES 07/05/2018 BRENNON GUAJARDOP Ot E66.01 MORBID (SEVERE) OBESITY DUE TO EXCESS CA 07/05/2018 BRENNON GUAJARDOP Ot F12.10 CANNABIS ABUSE, UNCOMPLICATED 07/05/2018 BRENNON GUAJARDOP Ot F17.210 NICOTINE DEPENDENCE, CIGARETTES, UNCOMPL 07/05/2018 BRENNON GUAJARDOP Ot F32.9 MAJOR DEPRESSIVE DISORDER, SINGLE EPISOD 07/05/2018 BRENNON GUAJARDOP Ot F41.9 ANXIETY DISORDER, UNSPECIFIED 07/05/2018 BRENNON GUAJARDOP Ot G40.909 EPILEPSY, UNSP, NOT INTRACTABLE, WITHOUT 07/05/2018 CASANDRABRENNON RiggsP Ot I10 ESSENTIAL (PRIMARY) HYPERTENSION 07/05/2018 BRENNON GUAJARDOP Ot J45.909 UNSPECIFIED ASTHMA, UNCOMPLICATED 07/05/2018 BRENNON GUAJARDOP Ot K21.9 GASTRO-ESOPHAGEAL REFLUX DISEASE WITHOUT 07/05/2018 BRENNON GUAJARDO WAITER AND CASHIER Ot M25.551 PAIN IN RIGHT HIP 07/05/2018 BRENNON GUAJARDOP Ot M54.41 LUMBAGO WITH SCIATICA, RIGHT SIDE 07/05/2018 CASANDRABRENNON Riggs WAITER AND CASHIER Ot Z68.41 BODY MASS INDEX (BMI) 40.0-44.9, ADULT 07/05/2018 CASANDRABRENNON Riggs Ot Z79.51 NURSING HOME (CURRENT) USE OF INHALED STERO 07/05/2018 CASANDRABRENNON Riggs Ot Z79.52 BURGLAR 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 (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) USE OF SYSTEMIC STER 07/05/2018 CASANDRABRENNON Riggs Ot Z79.82 NURSING HOME (CURRENT) USE OF ASPIRIN 07/05/2018 CASANDRABRENNON RiggsP Ot Z82.49 FAMILY HX OF ISCHEM HEART DIS AND OTH DI 07/05/2018 CASANDRABRENNON RiggsP Ot Z87.19 PERSONAL HISTORY OF OTHER DISEASES OF TH 07/05/2018 BRENNON GUAJARDO Ot Z87.448 PERSONAL HISTORY OF OTHER DISEASES OF UR 07/05/2018 CASANDRABRENNON RiggsP Ot Z88.0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 [employer] 12/06/2013 01648 [employer] 12/06/2013 58539 [employer] 12/06/2013 67764 PSYT X PT&/FAMILY 30 MINUTES 12/07/2013 67954 SKIN TAG REM 1-15 01/01/2014 26119 EXCI RIO BENIGN LESION 0.6-1 cm (spcify location in [facility] description) 01/01/2014 90258 [employer]ITOX 01/17/2014 56503 MAMM OGRAM, SCREENING 01/22/2014 23627 THER APUTIC INJ SQ/IM 04/26/2014 J0696 ROCE PHIN INJ 1 g 04/26/2014 83490 MRI SPINE (LUMBAR) W/O CONTRAST 05/17/2014 94075 A1C (IN-HOUSE) 05/31/2014 75729 ROUT INE VENIPUNCTURE 06/18/2014 01886 CBC 06/18/2014 99936 CMP 06/18/2014 21300 LIPI D PANEL 06/18/2014 [id number] GF R CALC (RESULT ONLY) 06/18/2014 93628 TSH 06/18/2014 67474 MAMM OGRAM DX, ANNA 06/20/2014 76702 EKG, TRACING (IN-HOUSE) 08/02/[id number] MANSFIELD OF RIGHT HAND, OPEN APPROACH 07/13/[id number] ELIZALDE OF R UP ARM SUBCU/FASCIA WITH LESLIE 12/08/2016 [id number] EX CISION OF R UP ARM SUBCU/FASCIA, OPEN 12/08/2016 Results Test Result Range Complete blood count (CBC) with automate d white blood cell (WBC) differential - 06/07/16 23:10 Blood leukocytes automated count (number/volume) 13.5 10*3/uL 4.3-11.0 Blood erythrocytes automated count (number/volume) 5.18 10*6/uL 4.35-5.85 Venous blood hemoglobin measurement (mass/volume) 12.8 g/dL 11.5-16.0 Blood hematocrit (volume fraction) 42 % 35-52 Automated erythrocyte mean corpuscular volume 81 [ foz_us] 80-99 Automated erythrocyte mean corpuscular h emoglobin (mass per erythrocyte) 25 pg 25-34 Automated erythrocyte mean corpuscular h emoglobin concentration measurement (mass/volume) 31 g/dL 32-36 Automated erythrocyte distribution width ratio 18. 7 % 10.0- 14.5 Automated blood platelet count (count/volume) 370 10*3/uL 130-400 Automated blood platelet mean volume measurement 10.8 [foz_us] 7.4-10.4 Automated blood neutrophils/100 leukocytes 54 % 42-75 Automated blood lymphocytes/100 leukocytes 31 % 12-44 Blood monocytes/100 leukocytes 11 % 0-12 Automated blood eosinophils/100 leukocytes 2 % 0-10 Automated blood basophils/100 leukocytes 1 % 0-10 Blood neutrophils automated count (number/volume) 7.3 10*3 1.8-7.8 Blood lymphocytes automated count (number/volume) 4.2 10*3 1.0-4.0 Blood monocytes automated count (number/volume) 1. 5 10*3 0.0-1.0 Automated eosinophil count 0.3 10*3/uL 0 .0-0.3 Automated blood basophil count (count/volume) 0.1 10*3/uL 0.0-0.1 Serum or plasma choriogonadotropin (preg roberto test) detection - 06/07/16 23:10 Serum or plasma choriogonadotropin ( test) de tection NEGATIVE NEGATIVE Comprehensive metabolic panel - 06/07/16 23:10 Serum or plasma sodium measurement (moles/volume) 138 mmol/L 135-145 Serum or plasma potassium measurement (moles/volume) 3.7 mmol/L 3.6-5.0 Serum or plasma chloride measurement (moles/volume) 102 mmol/L 98-107 Carbon dioxide 16 mmol/L 21-32 Serum or plasma anion gap determination (moles/volume) 20 mmol/L 5-14 Serum or plasma urea nitrogen measurement (mass/volume ) 12 mg/dL 7-18 Serum or plasma creatinine measurement (mass/volume) 1.09 mg/dL 0.60-1.30 Serum or plasma urea nitrogen/creatinine mass ratio 11 NRG Serum or plasma creatinine measurement w ith calculation of estimated glomerular filtration rate 55 NRG Serum or plasma glucose measurement (mass/volume) 110 mg/dL 70-105 Serum or plasma calcium measurement (mass/volume) 9.6 mg/dL 8.5-10.1 Serum or plasma total bilirubin measurement (mass/volu me) 0.2 mg/dL 0.1-1.0 Serum or plasma alkaline phosphatase talon surement (enzymatic activity/volume) 141 U/L 40-136 Serum or plasma aspartate aminotransfera se measurement (enzymatic activity/volume) 23 U/L 5-34 Serum or plasma alanine aminotransferase measurement (enzymatic activity/volume) 26 U/L 0-55 Serum or plasma protein measurement (mass/volume) 7.7 g/dL 6.4-8.2 Serum or plasma albumin measurement (mass/volume) 4.4 g/dL 3.2-4.5 Magnesium - 06/07/16 23:10 Magnesium 2.1 mg/dL 1.8-2.4 Serum or plasma creatine kinase measurem ent (enzymatic activity/volume) - 06/07/16 23:10 Serum or plasma creatine kinase measurem ent (enzymatic activity/volume) 95 U/L 29-168 Serum or plasma creatine kinase MB measu rement (enzymatic activity/volume) - 06/07/16 23:10 Serum or plasma creatine kinase MB measu rement (enzymatic activity/volume) 0.7 ng/mL <6.6 Serum or plasma troponin i.cardiac measu rement (mass/volume) - 06/07/16 23:10 Serum or plasma troponin i.cardiac measurement (mass/v olume) < ng/mL <0.30 Serum or plasma thyrotropin measurement by detection limit <=0.05 miu/l (units/volume) - 06/07/16 23:10 Serum or plasma thyrotropin measurement by detection limit <=0.05 miu/l (units/volume) 3.07 u[iU]/mL 0.35-4.94 Serum or plasma salicylates measurement (mass/volume) - 06/07/16 23:10 Serum or plasma salicylates measurement (mass/volume) < mg/dL 5.0-20.0 Serum or plasma acetaminophen measuremen t (mass/volume) - 06/07/16 23:10 Serum or plasma acetaminophen measurement (mass/volume ) < ug/mL 10-30 Serum or plasma ethanol measurement (mas s/volume) - 06/07/16 23:10 Serum or plasma ethanol measurement (mass/volume) < mg/dL <10 Urine drug screening test - 06/07/16 23: 20 Urine phencyclidine detection by screening method NEGATIVE NEGATIVE Urine benzodiazepines detection by screening method NEGATIVE NEGATIVE Urine cocaine detection NEGATIVE NEGATI VE Urine amphetamines detection by screening method N EGATIVE NEGATIVE Urine methamphetamine detection by screening method NEGATIVE NEGATIVE Urine cannabinoids detection by screening method N EGATIVE NEGATIVE Urine opiates detection by screening method NEGATI VE NEGATIVE Urine barbiturates detection NEGATIVE N EGATIVE Screening urine tricyclic antidepressants detection POSITIVE NEGATIVE Urine methadone detection by screening method NEGA TIVE NEGATIVE Urine oxycodone detection NEGATIVE NEGA TIVE Urine propoxyphene detection NEGATIVE N EGATIVE Complete urinalysis with reflex to cultu re - 06/07/16 23:20 Urine color determination YELLOW NRG Urine clarity determination CLEAR NR G Urine pH measurement by test strip 6 5-9 Specific gravity of urine by test strip 1.010 1.016-1.022 Urine protein assay by test strip, semi-quantitative NEGATIVE NEGATIVE Urine glucose detection by automated test strip NE GATIVE NEGATIVE Erythrocytes detection in urine sediment by light micr oscopy NEGATIVE NEGATIVE Urine ketones detection by automated test strip NE GATIVE NEGATIVE Urine nitrite detection by test strip NEGATIVE NEGATIVE Urine total bilirubin detection by test strip NEGA TIVE NEGATIVE Urine urobilinogen measurement by automated test strip (mass/volume) NORMAL NORMAL Urine leukocyte esterase detection by dipstick NEG ATIVE NEGATIVE Automated urine sediment erythrocyte cou nt by microscopy (number/high power field) NONE NRG Automated urine sediment leukocyte count by microscopy (number/high power field) NONE NRG Bacteria detection in urine sediment by light microsco py NEGATIVE NRG Squamous epithelial cells detection in u rine sediment by light microscopy RARE NRG Crystals detection in urine sediment by light microsco py NONE NRG Casts detection in urine sediment by light microscopy NONE NRG Mucus detection in urine sediment by light microscopy NEGATIVE NRG Complete urinalysis with reflex to culture NO NRG Complete blood count (CBC) with automate d white blood cell (WBC) differential - 06/08/16 04:00 Blood leukocytes automated count (number/volume) 9.3 10*3/uL 4.3-11.0 Blood erythrocytes automated count (number/volume) 4.90 10*6/uL 4.35-5.85 Venous blood hemoglobin measurement (mass/volume) 12.0 g/dL 11.5-16.0 Blood hematocrit (volume fraction) 39 % 35-52 Automated erythrocyte mean corpuscular volume 80 [ foz_us] 80-99 Automated erythrocyte mean corpuscular h emoglobin (mass per erythrocyte) 25 pg 25-34 Automated erythrocyte mean corpuscular h emoglobin concentration measurement (mass/volume) 31 g/dL 32-36 Automated erythrocyte distribution width ratio 18. 7 % 10.0- 14.5 Automated blood platelet count (count/volume) 309 10*3/uL 130-400 Automated blood platelet mean volume measurement 11.5 [foz_us] 7.4-10.4 Automated blood neutrophils/100 leukocytes 62 % 42-75 Automated blood lymphocytes/100 leukocytes 26 % 12-44 Blood monocytes/100 leukocytes 9 % 0-12 Automated blood eosinophils/100 leukocytes 2 % 0-10 Automated blood basophils/100 leukocytes 1 % 0-10 Blood neutrophils automated count (number/volume) 5.7 10*3 1.8-7.8 Blood lymphocytes automated count (number/volume) 2.4 10*3 1.0-4.0 Blood monocytes automated count (number/volume) 0. 9 10*3 0.0-1.0 Automated eosinophil count 0.2 10*3/uL 0 .0-0.3 Automated blood basophil count (count/volume) 0.1 10*3/uL 0.0-0.1 Whole blood basic metabolic panel - 05/17 08/30 04:00 Serum or plasma sodium measurement (moles/volume) 139 mmol/L 135-145 Serum or plasma potassium measurement (moles/volume) 3.8 mmol/L 3.6-5.0 Serum or plasma chloride measurement (moles/volume) 106 mmol/L 98-107 Carbon dioxide 21 mmol/L 21-32 Serum or plasma anion gap determination (moles/volume) 12 mmol/L 5-14 Serum or plasma urea nitrogen measurement (mass/volume ) 11 mg/dL 7-18 Serum or plasma creatinine measurement (mass/volume) 0.86 mg/dL 0.60-1.30 Serum or plasma urea nitrogen/creatinine mass ratio 13 NRG Serum or plasma creatinine measurement w ith calculation of estimated glomerular filtration rate > NRG Serum or plasma glucose measurement (mass/volume) 104 mg/dL 70-105 Serum or plasma calcium measurement (mass/volume) 9.1 mg/dL 8.5-10.1 Serum or plasma phosphate measurement (m ass/volume) - 06/08/16 04:00 Serum or plasma phosphate measurement (mass/volume) 3.8 mg/dL 2.3-4.7 Magnesium - 06/08/16 04:00 Magnesium 2.0 mg/dL 1.8-2.4 Complete blood count (CBC) with automate d white blood cell (WBC) differential - 06/11/16 19:00 Blood leukocytes automated count (number/volume) 11.5 10*3/uL 4.3-11.0 Blood erythrocytes automated count (number/volume) 4.74 10*6/uL 4.35-5.85 Venous blood hemoglobin measurement (mass/volume) 11.7 g/dL 11.5-16.0 Blood hematocrit (volume fraction) 38 % 35-52 Automated erythrocyte mean corpuscular volume 81 [ foz_us] 80-99 Automated erythrocyte mean corpuscular h emoglobin (mass per erythrocyte) 25 pg 25-34 Automated erythrocyte mean corpuscular h emoglobin concentration measurement (mass/volume) 31 g/dL 32-36 Automated erythrocyte distribution width ratio 18. 6 % 10.0- 14.5 Automated blood platelet count (count/volume) 308 10*3/uL 130-400 Automated blood platelet mean volume measurement 10.6 [foz_us] 7.4-10.4 Automated blood neutrophils/100 leukocytes 69 % 42-75 Automated blood lymphocytes/100 leukocytes 19 % 12-44 Blood monocytes/100 leukocytes 10 % 0-12 Automated blood eosinophils/100 leukocytes 2 % 0-10 Automated blood basophils/100 leukocytes 1 % 0-10 Blood neutrophils automated count (number/volume) 7.9 10*3 1.8-7.8 Blood lymphocytes automated count (number/volume) 2.2 10*3 1.0-4.0 Blood monocytes automated count (number/volume) 1. 1 10*3 0.0-1.0 Automated eosinophil count 0.2 10*3/uL 0 .0-0.3 Automated blood basophil count (count/volume) 0.1 10*3/uL 0.0-0.1 Comprehensive metabolic panel - 06/11/16 19:00 Serum or plasma sodium measurement (moles/volume) 140 mmol/L 135-145 Serum or plasma potassium measurement (moles/volume) 3.8 mmol/L 3.6-5.0 Serum or plasma chloride measurement (moles/volume) 107 mmol/L 98-107 Carbon dioxide 22 mmol/L 21-32 Serum or plasma anion gap determination (moles/volume) 11 mmol/L 5-14 Serum or plasma urea nitrogen measurement (mass/volume ) 8 mg/dL 7-18 Serum or plasma creatinine measurement (mass/volume) 0.76 mg/dL 0.60-1.30 Serum or plasma urea nitrogen/creatinine mass ratio 11 NRG Serum or plasma creatinine measurement w ith calculation of estimated glomerular filtration rate > NRG Serum or plasma glucose measurement (mass/volume) 105 mg/dL 70-105 Serum or plasma calcium measurement (mass/volume) 8.9 mg/dL 8.5-10.1 Serum or plasma total bilirubin measurement (mass/volu me) 0.2 mg/dL 0.1-1.0 Serum or plasma alkaline phosphatase talon surement (enzymatic activity/volume) 125 U/L 40-136 Serum or plasma aspartate aminotransfera se measurement (enzymatic activity/volume) 30 U/L 5-34 Serum or plasma alanine aminotransferase measurement (enzymatic activity/volume) 37 U/L 0-55 Serum or plasma protein measurement (mass/volume) 6.8 g/dL 6.4-8.2 Serum or plasma albumin measurement (mass/volume) 3.8 g/dL 3.2-4.5 Magnesium - 06/11/16 19:00 Magnesium 1.7 mg/dL 1.8-2.4 Serum or plasma ethanol measurement (mas s/volume) - 06/11/16 19:00 Serum or plasma ethanol measurement (mass/volume) < mg/dL <10 Urine drug screening test - 06/11/16 19: 15 Urine phencyclidine detection by screening method NEGATIVE NEGATIVE Urine benzodiazepines detection by screening method NEGATIVE NEGATIVE Urine cocaine detection NEGATIVE NEGATI VE Urine amphetamines detection by screening method N EGATIVE NEGATIVE Urine methamphetamine detection by screening method NEGATIVE NEGATIVE Urine cannabinoids detection by screening method N EGATIVE NEGATIVE Urine opiates detection by screening method POSITI VE NEGATIVE Urine barbiturates detection NEGATIVE N EGATIVE Screening urine tricyclic antidepressants detection POSITIVE NEGATIVE Urine methadone detection by screening method NEGA TIVE NEGATIVE Urine oxycodone detection NEGATIVE NEGA TIVE Urine propoxyphene detection NEGATIVE N EGATIVE Complete urinalysis with reflex to cultu re - 06/11/16 19:15 Urine color determination YELLOW NRG Urine clarity determination CLEAR NR G Urine pH measurement by test strip 6 5-9 Specific gravity of urine by test strip 1.015 1.016-1.022 Urine protein assay by test strip, semi-quantitative NEGATIVE NEGATIVE Urine glucose detection by automated test strip NE GATIVE NEGATIVE Erythrocytes detection in urine sediment by light micr oscopy NEGATIVE NEGATIVE Urine ketones detection by automated test strip NE GATIVE NEGATIVE Urine nitrite detection by test strip NEGATIVE NEGATIVE Urine total bilirubin detection by test strip NEGA TIVE NEGATIVE Urine urobilinogen measurement by automated test strip (mass/volume) NORMAL NORMAL Urine leukocyte esterase detection by dipstick NEG ATIVE NEGATIVE Automated urine sediment erythrocyte cou nt by microscopy (number/high power field) NONE NRG Automated urine sediment leukocyte count by microscopy (number/high power field) RARE NRG Bacteria detection in urine sediment by light microsco py TRACE NRG Squamous epithelial cells detection in u rine sediment by light microscopy 5-10 NRG Crystals detection in urine sediment by light microsco py NONE NRG Casts detection in urine sediment by light microscopy NONE NRG Mucus detection in urine sediment by light microscopy NEGATIVE NRG Complete urinalysis with reflex to culture NO NRG Complete blood count (CBC) with automate d white blood cell (WBC) differential - 06/21/16 17:39 Blood leukocytes automated count (number/volume) 9.7 10*3/uL 4.3-11.0 Blood erythrocytes automated count (number/volume) 4.65 10*6/uL 4.35-5.85 Venous blood hemoglobin measurement (mass/volume) 11.4 g/dL 11.5-16.0 Blood hematocrit (volume fraction) 38 % 35-52 Automated erythrocyte mean corpuscular volume 81 [ foz_us] 80-99 Automated erythrocyte mean corpuscular h emoglobin (mass per erythrocyte) 25 pg 25-34 Automated erythrocyte mean corpuscular h emoglobin concentration measurement (mass/volume) 30 g/dL 32-36 Automated erythrocyte distribution width ratio 18. 8 % 10.0- 14.5 Automated blood platelet count (count/volume) 270 10*3/uL 130-400 Automated blood platelet mean volume measurement 10.6 [foz_us] 7.4-10.4 Automated blood neutrophils/100 leukocytes 63 % 42-75 Automated blood lymphocytes/100 leukocytes 22 % 12-44 Blood monocytes/100 leukocytes 11 % 0-12 Automated blood eosinophils/100 leukocytes 3 % 0-10 Automated blood basophils/100 leukocytes 1 % 0-10 Blood neutrophils automated count (number/volume) 6.1 10*3 1.8-7.8 Blood lymphocytes automated count (number/volume) 2.1 10*3 1.0-4.0 Blood monocytes automated count (number/volume) 1. 0 10*3 0.0-1.0 Automated eosinophil count 0.3 10*3/uL 0 .0-0.3 Automated blood basophil count (count/volume) 0.1 10*3/uL 0.0-0.1 Comprehensive metabolic panel - 06/21/16 17:39 Serum or plasma sodium measurement (moles/volume) 139 mmol/L 135-145 Serum or plasma potassium measurement (moles/volume) 3.7 mmol/L 3.6-5.0 Serum or plasma chloride measurement (moles/volume) 105 mmol/L 98-107 Carbon dioxide 23 mmol/L 21-32 Serum or plasma anion gap determination (moles/volume) 11 mmol/L 5-14 Serum or plasma urea nitrogen measurement (mass/volume ) 8 mg/dL 7-18 Serum or plasma creatinine measurement (mass/volume) 0.77 mg/dL 0.60-1.30 Serum or plasma urea nitrogen/creatinine mass ratio 10 NRG Serum or plasma creatinine measurement w ith calculation of estimated glomerular filtration rate > NRG Serum or plasma glucose measurement (mass/volume) 88 mg/dL 70-105 Serum or plasma calcium measurement (mass/volume) 9.0 mg/dL 8.5-10.1 Serum or plasma total bilirubin measurement (mass/volu me) 0.3 mg/dL 0.1-1.0 Serum or plasma alkaline phosphatase talon surement (enzymatic activity/volume) 126 U/L 40-136 Serum or plasma aspartate aminotransfera se measurement (enzymatic activity/volume) 19 U/L 5-34 Serum or plasma alanine aminotransferase measurement (enzymatic activity/volume) 30 U/L 0-55 Serum or plasma protein measurement (mass/volume) 6.9 g/dL 6.4-8.2 Serum or plasma albumin measurement (mass/volume) 3.8 g/dL 3.2-4.5 Serum or plasma salicylates measurement (mass/volume) - 06/21/16 17:39 Serum or plasma salicylates measurement (mass/volume) < mg/dL 5.0-20.0 Serum or plasma acetaminophen measuremen t (mass/volume) - 06/21/16 17:39 Serum or plasma acetaminophen measurement (mass/volume ) < ug/mL 10-30 Serum or plasma ethanol measurement (mas s/volume) - 06/21/16 17:39 Serum or plasma ethanol measurement (mass/volume) < mg/dL <10 Complete urinalysis with reflex to cultu re - 06/21/16 18:16 Urine color determination YELLOW NRG Urine clarity determination CLEAR NR G Urine pH measurement by test strip 6.5 5-9 Specific gravity of urine by test strip 1.010 1.016-1.022 Urine protein assay by test strip, semi-quantitative NEGATIVE NEGATIVE Urine glucose detection by automated test strip NE GATIVE NEGATIVE Erythrocytes detection in urine sediment by light micr oscopy NEGATIVE NEGATIVE Urine ketones detection by automated test strip NE GATIVE NEGATIVE Urine nitrite detection by test strip NEGATIVE NEGATIVE Urine total bilirubin detection by test strip NEGA TIVE NEGATIVE Urine urobilinogen measurement by automated test strip (mass/volume) NORMAL NORMAL Urine leukocyte esterase detection by dipstick NEG ATIVE NEGATIVE Automated urine sediment erythrocyte cou nt by microscopy (number/high power field) NONE NRG Automated urine sediment leukocyte count by microscopy (number/high power field) NONE NRG Bacteria detection in urine sediment by light microsco py NEGATIVE NRG Squamous epithelial cells detection in u rine sediment by light microscopy 0-2 NRG Crystals detection in urine sediment by light microsco py NONE NRG Casts detection in urine sediment by light microscopy NONE NRG Mucus detection in urine sediment by light microscopy NEGATIVE NRG Complete urinalysis with reflex to culture NO NRG Urine drug screening test - 06/21/16 18: 16 Urine phencyclidine detection by screening method NEGATIVE NEGATIVE Urine benzodiazepines detection by screening method NEGATIVE NEGATIVE Urine cocaine detection NEGATIVE NEGATI VE Urine amphetamines detection by screening method N EGATIVE NEGATIVE Urine methamphetamine detection by screening method NEGATIVE NEGATIVE Urine cannabinoids detection by screening method N EGATIVE NEGATIVE Urine opiates detection by screening method NEGATI VE NEGATIVE Urine barbiturates detection NEGATIVE N EGATIVE Screening urine tricyclic antidepressants detection POSITIVE NEGATIVE Urine methadone detection by screening method NEGA TIVE NEGATIVE Urine oxycodone detection NEGATIVE NEGA TIVE Urine propoxyphene detection NEGATIVE N EGATIVE Gram stain microscopy - 07/02/16 14:45 GRAM STAIN RESULT AND GRAM POSITIVE COCCI NR Bacteria identification in wound by cult ure - 07/02/16 14:45 Bacteria identification in wound by culture [id number] [facility] FREE TEXT EXTERNAL SENSITIVITY REPORTED AT 1045, 2 NRG QUANTITY OF GROWTH Abundant Growth [facility] Bacterial susceptibility panel - 7 14:45 Gentamicin susceptibility test by minimum inhibitory c oncentration >= NRG Trimethoprim/sulfamethoxazole susceptibi lity test by minimum inhibitoryconcentration >= NRG Ampicillin susceptibility test by minimum inhibitory c oncentration >= NRG Tobramycin susceptibility test by minimum inhibitory c oncentration 8 NRG Cefazolin susceptibility test by minimum inhibitory co ncentration <= NRG Ceftriaxone susceptibility test by minimum inhibitory concentration <= NRG Ampicillin/sulbactam susceptibility test by minimum inhibitory concentration 16 NRG Piperacillin/tazobactam susceptibility t est by minimum inhibitory concentration <= NRG Ciprofloxacin susceptibility test by minimum inhibitor y concentration <= NRG Meropenem susceptibility test by minimum inhibitory co ncentration <= NRG Aztreonam susceptibility test by minimum inhibitory co ncentration <= NRG Extended spectrum beta lactamase (ESBL) producing bacteria susceptibility test by minimum inhibitory concentration - NRG Amikacin susceptibility test by minimum inhibitory con centration S [facility] Bacterial susceptibility panel - 7 14:45 Gentamicin susceptibility test by minimum inhibitory c oncentration <= NRG Trimethoprim/sulfamethoxazole susceptibi lity test by minimum inhibitoryconcentration <= NRG Ampicillin susceptibility test by minimum inhibitory c oncentration <= NRG Tobramycin susceptibility test by minimum inhibitory c oncentration <= NRG Cefazolin susceptibility test by minimum inhibitory co ncentration <= NRG Ceftriaxone susceptibility test by minimum inhibitory concentration <= NRG Ampicillin/sulbactam susceptibility test by minimum inhibitory concentration <= NRG Ciprofloxacin susceptibility test by minimum inhibitor y concentration <= NRG Meropenem susceptibility test by minimum inhibitory co ncentration <= NRG Aztreonam susceptibility test by minimum inhibitory co ncentration <= NRG Amikacin susceptibility test by minimum inhibitory con centration S [facility] Bacterial susceptibility panel - 7 14:45 Gentamicin susceptibility test by minimum inhibitory c oncentration S NRG Erythromycin susceptibility test by minimum inhibitory concentration 2 NRG Vancomycin susceptibility test by minimum inhibitory c oncentration 1 NRG Ampicillin susceptibility test by minimum inhibitory c oncentration <= NRG Linezolid susceptibility test by minimum inhibitory co ncentration 2 NRG Complete blood count (CBC) with automate d white blood cell (WBC) differential - 07/07/16 16:25 Blood leukocytes automated count (number/volume) 8.8 10*3/uL 4.3-11.0 Blood erythrocytes automated count (number/volume) 4.70 10*6/uL 4.35-5.85 Venous blood hemoglobin measurement (mass/volume) 11.5 g/dL 11.5-16.0 Blood hematocrit (volume fraction) 38 % 35-52 Automated erythrocyte mean corpuscular volume 80 [ foz_us] 80-99 Automated erythrocyte mean corpuscular h emoglobin (mass per erythrocyte) 25 pg 25-34 Automated erythrocyte mean corpuscular h emoglobin concentration measurement (mass/volume) 31 g/dL 32-36 Automated erythrocyte distribution width ratio 19. 1 % 10.0- 14.5 Automated blood platelet count (count/volume) 307 10*3/uL 130-400 Automated blood platelet mean volume measurement 10.1 [foz_us] 7.4-10.4 Automated blood neutrophils/100 leukocytes 58 % 42-75 Automated blood lymphocytes/100 leukocytes 25 % 12-44 Blood monocytes/100 leukocytes 11 % 0-12 Automated blood eosinophils/100 leukocytes 4 % 0-10 Automated blood basophils/100 leukocytes 1 % 0-10 Blood neutrophils automated count (number/volume) 5.1 10*3 1.8-7.8 Blood lymphocytes automated count (number/volume) 2.2 10*3 1.0-4.0 Blood monocytes automated count (number/volume) 1. 0 10*3 0.0-1.0 Automated eosinophil count 0.4 10*3/uL 0 .0-0.3 Automated blood basophil count (count/volume) 0.1 10*3/uL 0.0-0.1 Serum or plasma C reactive protein measu rement (mass/volume) - 07/07/16 16:25 Serum or plasma C reactive protein measurement (mass/v olume) 1.03 mg/dL 0.00-0.50 Complete blood count (CBC) with automate d white blood cell (WBC) differential - 07/12/16 11:34 Blood leukocytes automated count (number/volume) 8.2 10*3/uL 4.3-11.0 Blood erythrocytes automated count (number/volume) 4.73 10*6/uL 4.35-5.85 Venous blood hemoglobin measurement (mass/volume) 11.5 g/dL 11.5-16.0 Blood hematocrit (volume fraction) 38 % 35-52 Automated erythrocyte mean corpuscular volume 80 [ foz_us] 80-99 Automated erythrocyte mean corpuscular h emoglobin (mass per erythrocyte) 24 pg 25-34 Automated erythrocyte mean corpuscular h emoglobin concentration measurement (mass/volume) 30 g/dL 32-36 Automated erythrocyte distribution width ratio 19. 2 % 10.0- 14.5 Automated blood platelet count (count/volume) 326 10*3/uL 130-400 Automated blood platelet mean volume measurement 10.8 [foz_us] 7.4-10.4 Automated blood neutrophils/100 leukocytes 58 % 42-75 Automated blood lymphocytes/100 leukocytes 26 % 12-44 Blood monocytes/100 leukocytes 9 % 0-12 Automated blood eosinophils/100 leukocytes 6 % 0-10 Automated blood basophils/100 leukocytes 1 % 0-10 Blood neutrophils automated count (number/volume) 4.7 10*3 1.8-7.8 Blood lymphocytes automated count (number/volume) 2.1 10*3 1.0-4.0 Blood monocytes automated count (number/volume) 0. 8 10*3 0.0-1.0 Automated eosinophil count 0.5 10*3/uL 0 .0-0.3 Automated blood basophil count (count/volume) 0.1 10*3/uL 0.0-0.1 Comprehensive metabolic panel - 07/12/16 11:34 Serum or plasma sodium measurement (moles/volume) 137 mmol/L 135-145 Serum or plasma potassium measurement (moles/volume) 4.1 mmol/L 3.6-5.0 Serum or plasma chloride measurement (moles/volume) 104 mmol/L 98-107 Carbon dioxide 21 mmol/L 21-32 Serum or plasma anion gap determination (moles/volume) 12 mmol/L 5-14 Serum or plasma urea nitrogen measurement (mass/volume ) 12 mg/dL 7-18 Serum or plasma creatinine measurement (mass/volume) 0.85 mg/dL 0.60-1.30 Serum or plasma urea nitrogen/creatinine mass ratio 14 NRG Serum or plasma creatinine measurement w ith calculation of estimated glomerular filtration rate > NRG Serum or plasma glucose measurement (mass/volume) 112 mg/dL 70-105 Serum or plasma calcium measurement (mass/volume) 8.9 mg/dL 8.5-10.1 Serum or plasma total bilirubin measurement (mass/volu me) 0.2 mg/dL 0.1-1.0 Serum or plasma alkaline phosphatase talon surement (enzymatic activity/volume) 162 U/L 40-136 Serum or plasma aspartate aminotransfera se measurement (enzymatic activity/volume) 36 U/L 5-34 Serum or plasma alanine aminotransferase measurement (enzymatic activity/volume) 47 U/L 0-55 Serum or plasma protein measurement (mass/volume) 7.0 g/dL 6.4-8.2 Serum or plasma albumin measurement (mass/volume) 3.6 g/dL 3.2-4.5 Gram stain microscopy - 07/12/16 11:49 GRAM STAIN RESULT FEW GRAM POSITIVE COCCI NR Bacteria identification in wound by cult ure - 07/12/16 11:49 Bacteria identification in wound by culture [id number] [facility] FREE TEXT EXTERNAL NONENTEROCOCCUS NR QUANTITY OF GROWTH Scant Growth [facility] Bacterial susceptibility panel - 7 11:49 Gentamicin susceptibility test by minimum inhibitory c oncentration <= NRG Trimethoprim/sulfamethoxazole susceptibi lity test by minimum inhibitoryconcentration <= NRG Ampicillin susceptibility test by minimum inhibitory c oncentration <= NRG Tobramycin susceptibility test by minimum inhibitory c oncentration <= NRG Cefazolin susceptibility test by minimum inhibitory co ncentration <= NRG Ceftriaxone susceptibility test by minimum inhibitory concentration <= NRG Ampicillin/sulbactam susceptibility test by minimum inhibitory concentration <= NRG Piperacillin/tazobactam susceptibility t est by minimum inhibitory concentration <= NRG Ciprofloxacin susceptibility test by minimum inhibitor y concentration <= NRG Meropenem susceptibility test by minimum inhibitory co ncentration <= NRG Aztreonam susceptibility test by minimum inhibitory co ncentration <= NRG Extended spectrum beta lactamase (ESBL) producing bacteria susceptibility test by minimum inhibitory concentration - [facility] Bacterial susceptibility panel - 7 11:49 Gentamicin susceptibility test by minimum inhibitory c oncentration >= NRG Trimethoprim/sulfamethoxazole susceptibi lity test by minimum inhibitoryconcentration >= NRG Ampicillin susceptibility test by minimum inhibitory c oncentration >= NRG Tobramycin susceptibility test by minimum inhibitory c oncentration 8 NRG Cefazolin susceptibility test by minimum inhibitory co ncentration <= NRG Ceftriaxone susceptibility test by minimum inhibitory concentration <= NRG Ampicillin/sulbactam susceptibility test by minimum inhibitory concentration 16 NRG Piperacillin/tazobactam susceptibility t est by minimum inhibitory concentration <= NRG Ciprofloxacin susceptibility test by minimum inhibitor y concentration <= NRG Meropenem susceptibility test by minimum inhibitory co ncentration <= NRG Aztreonam susceptibility test by minimum inhibitory co ncentration <= NRG Extended spectrum beta lactamase (ESBL) producing bacteria susceptibility test by minimum inhibitory concentration - [facility] Bacterial susceptibility panel - 7 11:49 Gentamicin susceptibility test by minimum inhibitory c oncentration S NRG Erythromycin susceptibility test by minimum inhibitory concentration 1 NRG Vancomycin susceptibility test by minimum inhibitory c oncentration 1 NRG Ampicillin susceptibility test by minimum inhibitory c oncentration <= NRG Linezolid susceptibility test by minimum inhibitory co ncentration 2 NRG Complete urinalysis with reflex to cultu re - 07/12/16 23:30 Urine color determination YELLOW NRG Urine clarity determination CLEAR NR G Urine pH measurement by test strip 6 5-9 Specific gravity of urine by test strip 1.015 1.016-1.022 Urine protein assay by test strip, semi-quantitative NEGATIVE NEGATIVE Urine glucose detection by automated test strip NE GATIVE NEGATIVE Erythrocytes detection in urine sediment by light micr oscopy NEGATIVE NEGATIVE Urine ketones detection by automated test strip NE GATIVE NEGATIVE Urine nitrite detection by test strip NEGATIVE NEGATIVE Urine total bilirubin detection by test strip NEGA TIVE NEGATIVE Urine urobilinogen measurement by automated test strip (mass/volume) NORMAL NORMAL Urine leukocyte esterase detection by dipstick NEG ATIVE NEGATIVE Automated urine sediment erythrocyte cou nt by microscopy (number/high power field) NONE NRG Automated urine sediment leukocyte count by microscopy (number/high power field) NONE NRG Bacteria detection in urine sediment by light microsco py NEGATIVE NRG Squamous epithelial cells detection in u rine sediment by light microscopy 0-2 NRG Crystals detection in urine sediment by light microsco py NONE NRG Casts detection in urine sediment by light microscopy NONE NRG Mucus detection in urine sediment by light microscopy NEGATIVE NRG Complete urinalysis with reflex to culture NO NRG Methicillin resistant Staphylococcus aur eus (MRSA) screening culture - 07/12/16 23:40 Methicillin resistant Staphylococcus aureus (MRSA) scr eening culture NEG NRG Bacteria identification in isolate by an aerobe culture - 07/13/16 11:24 FREE TEXT EXTERNAL (NOT BACTEROIDES FRAGILIS GROUP ) NRG QUANTITY OF GROWTH Isolated NRG Bacteria identification in isolate by anaerobe culture [id number] NRG Gram stain microscopy - 07/13/16 11:24 GRAM STAIN RESULT NO WBC'S OR BACTERIA OBSERVED NRG Bacteria identification in wound by cult ure - 07/13/16 11:24 Bacteria identification in wound by culture [id number] NRG FREE TEXT EXTERNAL SENSITIVITIES REPORTED 07/15/16 7 :35 NRG QUANTITY OF GROWTH Scant Growth NRG Bacterial susceptibility panel - 7 11:24 Gentamicin susceptibility test by minimum inhibitory c oncentration <= NRG Trimethoprim/sulfamethoxazole susceptibi lity test by minimum inhibitoryconcentration <= NRG Tobramycin susceptibility test by minimum inhibitory c oncentration <= NRG Cefazolin susceptibility test by minimum inhibitory co ncentration R NRG Piperacillin/tazobactam susceptibility t est by minimum inhibitory concentration <= NRG Ciprofloxacin susceptibility test by minimum inhibitor y concentration <= NRG Meropenem susceptibility test by minimum inhibitory co ncentration <= NRG Aztreonam susceptibility test by minimum inhibitory co ncentration <= NRG Cefepime susceptibility test by minimum inhibitory con centration <= NRG Bacterial susceptibility panel - 7 11:24 Gentamicin susceptibility test by minimum inhibitory c oncentration >= NRG Trimethoprim/sulfamethoxazole susceptibi lity test by minimum inhibitoryconcentration >= NRG Ampicillin susceptibility test by minimum inhibitory c oncentration >= NRG Tobramycin susceptibility test by minimum inhibitory c oncentration 8 NRG Cefazolin susceptibility test by minimum inhibitory co ncentration <= NRG Ceftriaxone susceptibility test by minimum inhibitory concentration <= NRG Ampicillin/sulbactam susceptibility test by minimum inhibitory concentration 16 NRG Piperacillin/tazobactam susceptibility t est by minimum inhibitory concentration <= NRG Ciprofloxacin susceptibility test by minimum inhibitor y concentration <= NRG Meropenem susceptibility test by minimum inhibitory co ncentration <= NRG Aztreonam susceptibility test by minimum inhibitory co ncentration <= NRG Extended spectrum beta lactamase (ESBL) producing bacteria susceptibility test by minimum inhibitory concentration - NRG Amikacin susceptibility test by minimum inhibitory con centration S NRG Vancomycin trough - 07/13/16 13:45 Vancomycin trough 23.2 ug/mL 10.0-20.0 Complete blood count (CBC) with automate d white blood cell (WBC) differential - 07/17/16 20:05 Blood leukocytes automated count (number/volume) 9.4 10*3/uL 4.3-11.0 Blood erythrocytes automated count (number/volume) 4.73 10*6/uL 4.35-5.85 Venous blood hemoglobin measurement (mass/volume) 11.4 g/dL 11.5-16.0 Blood hematocrit (volume fraction) 38 % 35-52 Automated erythrocyte mean corpuscular volume 80 [ foz_us] 80-99 Automated erythrocyte mean corpuscular h emoglobin (mass per erythrocyte) 24 pg 25-34 Automated erythrocyte mean corpuscular h emoglobin concentration measurement (mass/volume) 30 g/dL 32-36 Automated erythrocyte distribution width ratio 19. 1 % 10.0- 14.5 Automated blood platelet count (count/volume) 315 10*3/uL 130-400 Automated blood platelet mean volume measurement 9.8 [foz_us] 7.4-10.4 Automated blood neutrophils/100 leukocytes 62 % 42-75 Automated blood lymphocytes/100 leukocytes 23 % 12-44 Blood monocytes/100 leukocytes 10 % 0-12 Automated blood eosinophils/100 leukocytes 5 % 0-10 Automated blood basophils/100 leukocytes 1 % 0-10 Blood neutrophils automated count (number/volume) 5.8 10*3 1.8-7.8 Blood lymphocytes automated count (number/volume) 2.1 10*3 1.0-4.0 Blood monocytes automated count (number/volume) 0. 9 10*3 0.0-1.0 Automated eosinophil count 0.4 10*3/uL 0 .0-0.3 Automated blood basophil count (count/volume) 0.1 10*3/uL 0.0-0.1 Comprehensive metabolic panel - 07/17/16 20:05 Serum or plasma sodium measurement (moles/volume) 143 mmol/L 135-145 Serum or plasma potassium measurement (moles/volume) 3.9 mmol/L 3.6-5.0 Serum or plasma chloride measurement (moles/volume) 110 mmol/L 98-107 Carbon dioxide 21 mmol/L 21-32 Serum or plasma anion gap determination (moles/volume) 12 mmol/L 5-14 Serum or plasma urea nitrogen measurement (mass/volume ) 10 mg/dL 7-18 Serum or plasma creatinine measurement (mass/volume) 0.90 mg/dL 0.60-1.30 Serum or plasma urea nitrogen/creatinine mass ratio 11 NRG Serum or plasma creatinine measurement w ith calculation of estimated glomerular filtration rate > NRG Serum or plasma glucose measurement (mass/volume) 119 mg/dL 70-105 Serum or plasma calcium measurement (mass/volume) 9.6 mg/dL 8.5-10.1 Serum or plasma total bilirubin measurement (mass/volu me) 0.3 mg/dL 0.1-1.0 Serum or plasma alkaline phosphatase talon surement (enzymatic activity/volume) 129 U/L 40-136 Serum or plasma aspartate aminotransfera se measurement (enzymatic activity/volume) 22 U/L 5-34 Serum or plasma alanine aminotransferase measurement (enzymatic activity/volume) 25 U/L 0-55 Serum or plasma protein measurement (mass/volume) 7.3 g/dL 6.4-8.2 Serum or plasma albumin measurement (mass/volume) 3.9 g/dL 3.2-4.5 Serum or plasma salicylates measurement (mass/volume) - 07/17/16 20:05 Serum or plasma salicylates measurement (mass/volume) < mg/dL 5.0-20.0 Serum or plasma acetaminophen measuremen t (mass/volume) - 07/17/16 20:05 Serum or plasma acetaminophen measurement (mass/volume ) < ug/mL 10-30 Serum or plasma ethanol measurement (mas s/volume) - 07/17/16 20:05 Serum or plasma ethanol measurement (mass/volume) < mg/dL <10 Serum or plasma thyrotropin measurement by detection limit <=0.05 miu/l (units/volume) - 07/17/16 20:05 Serum or plasma thyrotropin measurement by detection limit <=0.05 miu/l (units/volume) 0.65 u[iU]/mL 0.35-4.94 PT panel in platelet poor plasma by coag ulation assay - 07/17/16 20:05 Prothrombin time (PT) in platelet poor plasma by coagu lation assay 13.5 s 12.2-14.7 INR in platelet poor plasma or blood by coagulation as say 1.1 0.8-1.4 Activated partial thromboplastin time (a PTT) in platelet poor plasma bycoagulation assay - 07/17/16 20:05 Activated partial thromboplastin time (a PTT) in platelet poor plasma bycoagulation assay 27 s 24-35 Influenza virus A and B antigen detectio n - 07/17/16 20:20 FLU RESULT NEGATIVE FOR INFLUENZA A AND B ANTIGENS BY IA NRG Complete urinalysis with reflex to cultu re - 07/17/16 22:35 Urine color determination YELLOW NRG Urine clarity determination CLEAR NR G Urine pH measurement by test strip 8 5-9 Specific gravity of urine by test strip 1.015 1.016-1.022 Urine protein assay by test strip, semi-quantitative 1+ NEGATIVE Urine glucose detection by automated test strip NE GATIVE NEGATIVE Erythrocytes detection in urine sediment by light micr oscopy NEGATIVE NEGATIVE Urine ketones detection by automated test strip NE GATIVE NEGATIVE Urine nitrite detection by test strip NEGATIVE NEGATIVE Urine total bilirubin detection by test strip NEGA TIVE NEGATIVE Urine urobilinogen measurement by automated test strip (mass/volume) NORMAL NORMAL Urine leukocyte esterase detection by dipstick 2+ NEGATIVE Automated urine sediment erythrocyte cou nt by microscopy (number/high power field) NONE NRG Automated urine sediment leukocyte count by microscopy (number/high power field) [HPF] NRG Bacteria detection in urine sediment by light microsco py TRACE NRG Squamous epithelial cells detection in u rine sediment by light microscopy 25-50 NRG Crystals detection in urine sediment by light microsco py NONE NRG Casts detection in urine sediment by light microscopy NONE NRG Mucus detection in urine sediment by light microscopy SMALL NRG Complete urinalysis with reflex to culture NO NRG Urine drug screening test - 07/17/16 22: 38 Urine phencyclidine detection by screening method NEGATIVE NEGATIVE Urine benzodiazepines detection by screening method NEGATIVE NEGATIVE Urine cocaine detection NEGATIVE NEGATI VE Urine amphetamines detection by screening method N EGATIVE NEGATIVE Urine methamphetamine detection by screening method NEGATIVE NEGATIVE Urine cannabinoids detection by screening method N EGATIVE NEGATIVE Urine opiates detection by screening method POSITI VE NEGATIVE Urine barbiturates detection NEGATIVE N EGATIVE Screening urine tricyclic antidepressants detection POSITIVE NEGATIVE Urine methadone detection by screening method NEGA TIVE NEGATIVE Urine oxycodone detection NEGATIVE NEGA TIVE Urine propoxyphene detection NEGATIVE N EGATIVE Complete blood count (CBC) with automate d white blood cell (WBC) differential - 07/23/16 16:35 Blood leukocytes automated count (number/volume) 7.9 10*3/uL 4.3-11.0 Blood erythrocytes automated count (number/volume) 4.69 10*6/uL 4.35-5.85 Venous blood hemoglobin measurement (mass/volume) 11.3 g/dL 11.5-16.0 Blood hematocrit (volume fraction) 38 % 35-52 Automated erythrocyte mean corpuscular volume 80 [ foz_us] 80-99 Automated erythrocyte mean corpuscular h emoglobin (mass per erythrocyte) 24 pg 25-34 Automated erythrocyte mean corpuscular h emoglobin concentration measurement (mass/volume) 30 g/dL 32-36 Automated erythrocyte distribution width ratio 19. 1 % 10.0- 14.5 Automated blood platelet count (count/volume) 317 10*3/uL 130-400 Automated blood platelet mean volume measurement 10.2 [foz_us] 7.4-10.4 Automated blood neutrophils/100 leukocytes 61 % 42-75 Automated blood lymphocytes/100 leukocytes 21 % 12-44 Blood monocytes/100 leukocytes 11 % 0-12 Automated blood eosinophils/100 leukocytes 5 % 0-10 Automated blood basophils/100 leukocytes 2 % 0-10 Blood neutrophils automated count (number/volume) 4.8 10*3 1.8-7.8 Blood lymphocytes automated count (number/volume) 1.7 10*3 1.0-4.0 Blood monocytes automated count (number/volume) 0. 9 10*3 0.0-1.0 Automated eosinophil count 0.4 10*3/uL 0 .0-0.3 Automated blood basophil count (count/volume) 0.1 10*3/uL 0.0-0.1 Blood blood smear finding identification by light micr oscopy YES NR Comprehensive metabolic panel - 07/23/16 16:35 Serum or plasma sodium measurement (moles/volume) 142 mmol/L 135-145 Serum or plasma potassium measurement (moles/volume) 3.6 mmol/L 3.6-5.0 Serum or plasma chloride measurement (moles/volume) 110 mmol/L 98-107 Carbon dioxide 23 mmol/L 21-32 Serum or plasma anion gap determination (moles/volume) 9 mmol/L 5-14 Serum or plasma urea nitrogen measurement (mass/volume ) 12 mg/dL 7-18 Serum or plasma creatinine measurement (mass/volume) 0.74 mg/dL 0.60-1.30 Serum or plasma urea nitrogen/creatinine mass ratio 16 NRG Serum or plasma creatinine measurement w ith calculation of estimated glomerular filtration rate > NRG Serum or plasma glucose measurement (mass/volume) 122 mg/dL 70-105 Serum or plasma calcium measurement (mass/volume) 9.4 mg/dL 8.5-10.1 Serum or plasma total bilirubin measurement (mass/volu me) 0.3 mg/dL 0.1-1.0 Serum or plasma alkaline phosphatase talon surement (enzymatic activity/volume) 116 U/L 40-136 Serum or plasma aspartate aminotransfera se measurement (enzymatic activity/volume) 20 U/L 5-34 Serum or plasma alanine aminotransferase measurement (enzymatic activity/volume) 19 U/L 0-55 Serum or plasma protein measurement (mass/volume) 7.3 g/dL 6.4-8.2 Serum or plasma albumin measurement (mass/volume) 3.7 g/dL 3.2-4.5 Serum or plasma C reactive protein measu rement (mass/volume) - 07/23/16 16:35 Serum or plasma C reactive protein measurement (mass/v olume) 2.50 mg/dL 0.00-0.50 Bacterial blood culture - 07/23/16 16:35 Bacterial blood culture NG NRG Bacterial blood culture - 07/23/16 16:35 Bacterial blood culture NG NRG Blood lactic acid measurement (moles/vol ume) - 07/23/16 16:50 Blood lactic acid measurement (moles/volume) 0.59 mmol/L 0.50-2.00 Complete blood count (CBC) with automate d white blood cell (WBC) differential - 07/24/16 05:12 Blood leukocytes automated count (number/volume) 6.3 10*3/uL 4.3-11.0 Blood erythrocytes automated count (number/volume) 4.60 10*6/uL 4.35-5.85 Venous blood hemoglobin measurement (mass/volume) 11.0 g/dL 11.5-16.0 Blood hematocrit (volume fraction) 37 % 35-52 Automated erythrocyte mean corpuscular volume 81 [ foz_us] 80-99 Automated erythrocyte mean corpuscular h emoglobin (mass per erythrocyte) 24 pg 25-34 Automated erythrocyte mean corpuscular h emoglobin concentration measurement (mass/volume) 30 g/dL 32-36 Automated erythrocyte distribution width ratio 18. 8 % 10.0- 14.5 Automated blood platelet count (count/volume) 273 10*3/uL 130-400 Automated blood platelet mean volume measurement 10.2 [foz_us] 7.4-10.4 Automated blood neutrophils/100 leukocytes 39 % 42-75 Automated blood lymphocytes/100 leukocytes 38 % 12-44 Blood monocytes/100 leukocytes 15 % 0-12 Automated blood eosinophils/100 leukocytes 7 % 0-10 Automated blood basophils/100 leukocytes 2 % 0-10 Blood neutrophils automated count (number/volume) 2.5 10*3 1.8-7.8 Blood lymphocytes automated count (number/volume) 2.4 10*3 1.0-4.0 Blood monocytes automated count (number/volume) 0. 9 10*3 0.0-1.0 Automated eosinophil count 0.4 10*3/uL 0 .0-0.3 Automated blood basophil count (count/volume) 0.1 10*3/uL 0.0-0.1 Whole blood basic metabolic panel - 07/14 06/01 05:12 Serum or plasma sodium measurement (moles/volume) 140 mmol/L 135-145 Serum or plasma potassium measurement (moles/volume) 3.5 mmol/L 3.6-5.0 Serum or plasma chloride measurement (moles/volume) 108 mmol/L 98-107 Carbon dioxide 20 mmol/L 21-32 Serum or plasma anion gap determination (moles/volume) 12 mmol/L 5-14 Serum or plasma urea nitrogen measurement (mass/volume ) 10 mg/dL 7-18 Serum or plasma creatinine measurement (mass/volume) 0.67 mg/dL 0.60-1.30 Serum or plasma urea nitrogen/creatinine mass ratio 15 NRG Serum or plasma creatinine measurement w ith calculation of estimated glomerular filtration rate > NRG Serum or plasma glucose measurement (mass/volume) 89 mg/dL 70-105 Serum or plasma calcium measurement (mass/volume) 9.0 mg/dL 8.5-10.1 Complete blood count (CBC) with automate d white blood cell (WBC) differential - 12/06/16 20:05 Blood leukocytes automated count (number/volume) 10.3 10*3/uL 4.3-11.0 Blood erythrocytes automated count (number/volume) 4.56 10*6/uL 4.35-5.85 Venous blood hemoglobin measurement (mass/volume) 10.2 g/dL 11.5-16.0 Blood hematocrit (volume fraction) 35 % 35-52 Automated erythrocyte mean corpuscular volume 77 [ foz_us] 80-99 Automated erythrocyte mean corpuscular h emoglobin (mass per erythrocyte) 22 pg 25-34 Automated erythrocyte mean corpuscular h emoglobin concentration measurement (mass/volume) 29 g/dL 32-36 Automated erythrocyte distribution width ratio 18. 9 % 10.0- 14.5 Automated blood platelet count (count/volume) 279 10*3/uL 130-400 Automated blood platelet mean volume measurement 10.9 [foz_us] 7.4-10.4 Automated blood neutrophils/100 leukocytes 56 % 42-75 Automated blood lymphocytes/100 leukocytes 26 % 12-44 Blood monocytes/100 leukocytes 13 % 0-12 Automated blood eosinophils/100 leukocytes 4 % 0-10 Automated blood basophils/100 leukocytes 1 % 0-10 Blood neutrophils automated count (number/volume) 5.8 10*3 1.8-7.8 Blood lymphocytes automated count (number/volume) 2.7 10*3 1.0-4.0 Blood monocytes automated count (number/volume) 1. 3 10*3 0.0-1.0 Automated eosinophil count 0.5 10*3/uL 0 .0-0.3 Automated blood basophil count (count/volume) 0.1 10*3/uL 0.0-0.1 PT panel in platelet poor plasma by coag ulation assay - 12/06/16 20:05 Prothrombin time (PT) in platelet poor plasma by coagu lation assay 13.9 s 12.2-14.7 INR in platelet poor plasma or blood by coagulation as say 1.1 0.8-1.4 Activated partial thromboplastin time (a PTT) in platelet poor plasma bycoagulation assay - 12/06/16 20:05 Activated partial thromboplastin time (a PTT) in platelet poor plasma bycoagulation assay 27 s 24-35 Blood lactic acid measurement (moles/vol ume) - 12/06/16 20:05 Blood lactic acid measurement (moles/volume) 0.69 mmol/L 0.50-2.00 Comprehensive metabolic panel - 12/06/16 20:05 Serum or plasma sodium measurement (moles/volume) 136 mmol/L 135-145 Serum or plasma potassium measurement (moles/volume) 3.8 mmol/L 3.6-5.0 Serum or plasma chloride measurement (moles/volume) 105 mmol/L 98-107 Carbon dioxide 24 mmol/L 21-32 Serum or plasma anion gap determination (moles/volume) 7 mmol/L 5-14 Serum or plasma urea nitrogen measurement (mass/volume ) 8 mg/dL 7-18 Serum or plasma creatinine measurement (mass/volume) 0.74 mg/dL 0.60-1.30 Serum or plasma urea nitrogen/creatinine mass ratio 11 NRG Serum or plasma creatinine measurement w ith calculation of estimated glomerular filtration rate > NRG Serum or plasma glucose measurement (mass/volume) 88 mg/dL 70-105 Serum or plasma calcium measurement (mass/volume) 8.5 mg/dL 8.5-10.1 Serum or plasma total bilirubin measurement (mass/volu me) 0.3 mg/dL 0.1-1.0 Serum or plasma alkaline phosphatase talon surement (enzymatic activity/volume) 88 U/L 40-136 Serum or plasma aspartate aminotransfera se measurement (enzymatic activity/volume) 17 U/L 5-34 Serum or plasma alanine aminotransferase measurement (enzymatic activity/volume) 19 U/L 0-55 Serum or plasma protein measurement (mass/volume) 6.0 g/dL 6.4-8.2 Serum or plasma albumin measurement (mass/volume) 3.3 g/dL 3.2-4.5 Magnesium - 12/06/16 20:05 Magnesium 1.5 mg/dL 1.8-2.4 Serum or plasma creatine kinase measurem ent (enzymatic activity/volume) - 12/06/16 20:05 Serum or plasma creatine kinase measurem ent (enzymatic activity/volume) 68 U/L 29-168 Bacterial blood culture - 12/06/16 20:05 Bacterial blood culture NG NRG Bacterial blood culture - 12/06/16 20:50 Bacterial blood culture NG NRG Complete urinalysis with reflex to cultu re - 12/06/16 21:17 Urine color determination YELLOW NRG Urine clarity determination CLEAR NR G Urine pH measurement by test strip 6 5-9 Specific gravity of urine by test strip 1.010 1.016-1.022 Urine protein assay by test strip, semi-quantitative NEGATIVE NEGATIVE Urine glucose detection by automated test strip NE GATIVE NEGATIVE Erythrocytes detection in urine sediment by light micr oscopy NEGATIVE NEGATIVE Urine ketones detection by automated test strip NE GATIVE NEGATIVE Urine nitrite detection by test strip NEGATIVE NEGATIVE Urine total bilirubin detection by test strip NEGA TIVE NEGATIVE Urine urobilinogen measurement by automated test strip (mass/volume) NORMAL NORMAL Urine leukocyte esterase detection by dipstick NEG ATIVE NEGATIVE Automated urine sediment erythrocyte cou nt by microscopy (number/high power field) NONE NRG Automated urine sediment leukocyte count by microscopy (number/high power field) [HPF] NRG Bacteria detection in urine sediment by light microsco py NEGATIVE NRG Squamous epithelial cells detection in u rine sediment by light microscopy 0-2 NRG Crystals detection in urine sediment by light microsco py NONE NRG Casts detection in urine sediment by light microscopy NONE NRG Mucus detection in urine sediment by light microscopy NEGATIVE NRG Complete urinalysis with reflex to culture NO NRG Urine drug screening test - 12/06/16 21: 17 Urine phencyclidine detection by screening method NEGATIVE NEGATIVE Urine benzodiazepines detection by screening method NEGATIVE NEGATIVE Urine cocaine detection NEGATIVE NEGATI VE Urine amphetamines detection by screening method N EGATIVE NEGATIVE Urine methamphetamine detection by screening method NEGATIVE NEGATIVE Urine cannabinoids detection by screening method N EGATIVE NEGATIVE Urine opiates detection by screening method NEGATI VE NEGATIVE Urine barbiturates detection NEGATIVE N EGATIVE Screening urine tricyclic antidepressants detection NEGATIVE NEGATIVE Urine methadone detection by screening method NEGA TIVE NEGATIVE Urine oxycodone detection NEGATIVE NEGA TIVE Urine propoxyphene detection NEGATIVE N EGATIVE Complete blood count (CBC) with automate d white blood cell (WBC) differential - 12/07/16 04:36 Blood leukocytes automated count (number/volume) 8.9 10*3/uL 4.3-11.0 Blood erythrocytes automated count (number/volume) 4.39 10*6/uL 4.35-5.85 Venous blood hemoglobin measurement (mass/volume) 9.9 g/dL 11.5-16.0 Blood hematocrit (volume fraction) 34 % 35-52 Automated erythrocyte mean corpuscular volume 77 [ foz_us] 80-99 Automated erythrocyte mean corpuscular h emoglobin (mass per erythrocyte) 23 pg 25-34 Automated erythrocyte mean corpuscular h emoglobin concentration measurement (mass/volume) 29 g/dL 32-36 Automated erythrocyte distribution width ratio 19. 3 % 10.0- 14.5 Automated blood platelet count (count/volume) 278 10*3/uL 130-400 Automated blood platelet mean volume measurement 11.7 [foz_us] 7.4-10.4 Automated blood neutrophils/100 leukocytes 63 % 42-75 Automated blood lymphocytes/100 leukocytes 19 % 12-44 Blood monocytes/100 leukocytes 13 % 0-12 Automated blood eosinophils/100 leukocytes 4 % 0-10 Automated blood basophils/100 leukocytes 1 % 0-10 Blood neutrophils automated count (number/volume) 5.6 10*3 1.8-7.8 Blood lymphocytes automated count (number/volume) 1.7 10*3 1.0-4.0 Blood monocytes automated count (number/volume) 1. 1 10*3 0.0-1.0 Automated eosinophil count 0.4 10*3/uL 0 .0-0.3 Automated blood basophil count (count/volume) 0.1 10*3/uL 0.0-0.1 Whole blood basic metabolic panel - 11/14 09/29 04:36 Serum or plasma sodium measurement (moles/volume) 141 mmol/L 135-145 Serum or plasma potassium measurement (moles/volume) 3.6 mmol/L 3.6-5.0 Serum or plasma chloride measurement (moles/volume) 109 mmol/L 98-107 Carbon dioxide 22 mmol/L 21-32 Serum or plasma anion gap determination (moles/volume) 10 mmol/L 5-14 Serum or plasma urea nitrogen measurement (mass/volume ) 8 mg/dL 7-18 Serum or plasma creatinine measurement (mass/volume) 0.77 mg/dL 0.60-1.30 Serum or plasma urea nitrogen/creatinine mass ratio 10 NRG Serum or plasma creatinine measurement w ith calculation of estimated glomerular filtration rate > NRG Serum or plasma glucose measurement (mass/volume) 103 mg/dL 70-105 Serum or plasma calcium measurement (mass/volume) 8.4 mg/dL 8.5-10.1 Serum or plasma C reactive protein measu rement (mass/volume) - 12/07/16 04:36 Serum or plasma C reactive protein measurement (mass/v olume) 3.25 mg/dL 0.00-0.50 Erythrocyte sedimentation rate by onel gren method - 12/07/16 04:36 Erythrocyte sedimentation rate by westergren method 19 mm 0- 20 Vancomycin trough - 12/08/16 05:00 Vancomycin trough 19.7 ug/mL 10.0-20.0 Complete blood count (CBC) with automate d white blood cell (WBC) differential - 12/08/16 05:00 Blood leukocytes automated count (number/volume) 12.2 10*3/uL 4.3-11.0 Blood erythrocytes automated count (number/volume) 4.50 10*6/uL 4.35-5.85 Venous blood hemoglobin measurement (mass/volume) 10.2 g/dL 11.5-16.0 Blood hematocrit (volume fraction) 35 % 35-52 Automated erythrocyte mean corpuscular volume 78 [ foz_us] 80-99 Automated erythrocyte mean corpuscular h emoglobin (mass per erythrocyte) 23 pg 25-34 Automated erythrocyte mean corpuscular h emoglobin concentration measurement (mass/volume) 29 g/dL 32-36 Automated erythrocyte distribution width ratio 19. 3 % 10.0- 14.5 Automated blood platelet count (count/volume) 287 10*3/uL 130-400 Automated blood platelet mean volume measurement 12.4 [foz_us] 7.4-10.4 Automated blood neutrophils/100 leukocytes 65 % 42-75 Automated blood lymphocytes/100 leukocytes 21 % 12-44 Blood monocytes/100 leukocytes 11 % 0-12 Automated blood eosinophils/100 leukocytes 2 % 0-10 Automated blood basophils/100 leukocytes 1 % 0-10 Blood neutrophils automated count (number/volume) 7.9 10*3 1.8-7.8 Blood lymphocytes automated count (number/volume) 2.6 10*3 1.0-4.0 Blood monocytes automated count (number/volume) 1. 4 10*3 0.0-1.0 Automated eosinophil count 0.3 10*3/uL 0 .0-0.3 Automated blood basophil count (count/volume) 0.1 10*3/uL 0.0-0.1 Comprehensive metabolic panel - 12/08/16 05:00 Serum or plasma sodium measurement (moles/volume) 136 mmol/L 135-145 Serum or plasma potassium measurement (moles/volume) 3.5 mmol/L 3.6-5.0 Serum or plasma chloride measurement (moles/volume) 103 mmol/L 98-107 Carbon dioxide 27 mmol/L 21-32 Serum or plasma anion gap determination (moles/volume) 6 mmol/L 5-14 Serum or plasma urea nitrogen measurement (mass/volume ) 6 mg/dL 7-18 Serum or plasma creatinine measurement (mass/volume) 0.80 mg/dL 0.60-1.30 Serum or plasma urea nitrogen/creatinine mass ratio 8 NRG Serum or plasma creatinine measurement w ith calculation of estimated glomerular filtration rate > NRG Serum or plasma glucose measurement (mass/volume) 132 mg/dL 70-105 Serum or plasma calcium measurement (mass/volume) 8.8 mg/dL 8.5-10.1 Serum or plasma total bilirubin measurement (mass/volu me) 0.3 mg/dL 0.1-1.0 Serum or plasma alkaline phosphatase talon surement (enzymatic activity/volume) 103 U/L 40-136 Serum or plasma aspartate aminotransfera se measurement (enzymatic activity/volume) 16 U/L 5-34 Serum or plasma alanine aminotransferase measurement (enzymatic activity/volume) 17 U/L 0-55 Serum or plasma protein measurement (mass/volume) 5.9 g/dL 6.4-8.2 Serum or plasma albumin measurement (mass/volume) 3.2 g/dL 3.2-4.5 Methicillin resistant Staphylococcus aur eus (MRSA) screening culture - 12/08/16 18:36 Methicillin resistant Staphylococcus aureus (MRSA) scr eening culture NEG NRG Bacteria identification in isolate by an aerobe culture - 12/08/16 21:00 QUANTITY OF GROWTH Isolated NRG Bacteria identification in isolate by anaerobe culture [id number] NRG Gram stain microscopy - 12/08/16 21:00 Gram stain microscopy negative rodri NRG Bacteria identification in wound by cult ure - 12/08/16 21:00 Bacteria identification in wound by culture [id number] NRG FREE TEXT EXTERNAL SENSITIVITY REPORTED 12/11/16 8: 05 NRG QUANTITY OF GROWTH Scant Growth NRG Bacteria identification in isolate by an aerobe culture - 12/08/16 21:00 QUANTITY OF GROWTH Isolated NRG Bacteria identification in isolate by anaerobe culture [id number] NRG Gram stain microscopy - 12/08/16 21:00 GRAM STAIN RESULT COCCI WITH CHAINS NRG Bacteria identification in wound by cult ure - 12/08/16 21:00 Bacteria identification in wound by culture SEE CO MMEN NRG QUANTITY OF GROWTH . NR Bacterial susceptibility panel - 7 21:00 Gentamicin susceptibility test by minimum inhibitory c oncentration <= NRG Trimethoprim/sulfamethoxazole susceptibi lity test by minimum inhibitoryconcentration <= NRG Ampicillin susceptibility test by minimum inhibitory c oncentration <= NRG Tobramycin susceptibility test by minimum inhibitory c oncentration <= NRG Cefazolin susceptibility test by minimum inhibitory co ncentration <= NRG Ceftriaxone susceptibility test by minimum inhibitory concentration <= NRG Ampicillin/sulbactam susceptibility test by minimum inhibitory concentration <= NRG Piperacillin/tazobactam susceptibility t est by minimum inhibitory concentration <= NRG Ciprofloxacin susceptibility test by minimum inhibitor y concentration <= NRG Meropenem susceptibility test by minimum inhibitory co ncentration <= NRG Aztreonam susceptibility test by minimum inhibitory co ncentration <= NRG Extended spectrum beta lactamase (ESBL) producing bacteria susceptibility test by minimum inhibitory concentration - NRG Mycobacterium species detection by organ ism specific culture - 12/08/16 21:00 Mycobacterium species detection by organism specific c ulture FOOTNOTE NRG Mycobacterium species detection by organ ism specific culture - 12/08/16 21:00 Mycobacterium species detection by organism specific c ulture FOOTNOTE NRG Bacterial susceptibility panel - 7 21:00 Gentamicin susceptibility test by minimum inhibitory c oncentration <= NRG Trimethoprim/sulfamethoxazole susceptibi lity test by minimum inhibitoryconcentration <= NRG Tobramycin susceptibility test by minimum inhibitory c oncentration <= NRG Cefazolin susceptibility test by minimum inhibitory co ncentration >= NRG Ceftriaxone susceptibility test by minimum inhibitory concentration <= NRG Piperacillin/tazobactam susceptibility t est by minimum inhibitory concentration <= NRG Ciprofloxacin susceptibility test by minimum inhibitor y concentration <= NRG Meropenem susceptibility test by minimum inhibitory co ncentration <= NRG Aztreonam susceptibility test by minimum inhibitory co ncentration <= NRG Cefepime susceptibility test by minimum inhibitory con centration <= NRG Bacterial susceptibility panel - 7 21:00 Gentamicin susceptibility test by minimum inhibitory c oncentration S NRG Erythromycin susceptibility test by minimum inhibitory concentration <= NRG Vancomycin susceptibility test by minimum inhibitory c oncentration <= NRG Ampicillin susceptibility test by minimum inhibitory c oncentration <= NRG Linezolid susceptibility test by minimum inhibitory co ncentration 2 NRG Vancomycin trough - 12/09/16 04:53 Vancomycin trough 17.3 ug/mL 10.0-20.0 Complete blood count (CBC) with automate d white blood cell (WBC) differential - 12/09/16 10:20 Blood leukocytes automated count (number/volume) 12.7 10*3/uL 4.3-11.0 Blood erythrocytes automated count (number/volume) 4.05 10*6/uL 4.35-5.85 Venous blood hemoglobin measurement (mass/volume) 9.2 g/dL 11.5-16.0 Blood hematocrit (volume fraction) 32 % 35-52 Automated erythrocyte mean corpuscular volume 78 [ foz_us] 80-99 Automated erythrocyte mean corpuscular h emoglobin (mass per erythrocyte) 23 pg 25-34 Automated erythrocyte mean corpuscular h emoglobin concentration measurement (mass/volume) 29 g/dL 32-36 Automated erythrocyte distribution width ratio 18. 7 % 10.0- 14.5 Automated blood platelet count (count/volume) 286 10*3/uL 130-400 Automated blood platelet mean volume measurement 10.1 [foz_us] 7.4-10.4 Automated blood neutrophils/100 leukocytes 63 % 42-75 Automated blood lymphocytes/100 leukocytes 20 % 12-44 Blood monocytes/100 leukocytes 13 % 0-12 Automated blood eosinophils/100 leukocytes 3 % 0-10 Automated blood basophils/100 leukocytes 1 % 0-10 Blood neutrophils automated count (number/volume) 8.0 10*3 1.8-7.8 Blood lymphocytes automated count (number/volume) 2.5 10*3 1.0-4.0 Blood monocytes automated count (number/volume) 1. 6 10*3 0.0-1.0 Automated eosinophil count 0.4 10*3/uL 0 .0-0.3 Automated blood basophil count (count/volume) 0.1 10*3/uL 0.0-0.1 Comprehensive metabolic panel - 12/09/16 10:20 Serum or plasma sodium measurement (moles/volume) 137 mmol/L 135-145 Serum or plasma potassium measurement (moles/volume) 3.5 mmol/L 3.6-5.0 Serum or plasma chloride measurement (moles/volume) 104 mmol/L 98-107 Carbon dioxide 22 mmol/L 21-32 Serum or plasma anion gap determination (moles/volume) 11 mmol/L 5-14 Serum or plasma urea nitrogen measurement (mass/volume ) 6 mg/dL 7-18 Serum or plasma creatinine measurement (mass/volume) 0.74 mg/dL 0.60-1.30 Serum or plasma urea nitrogen/creatinine mass ratio 8 NRG Serum or plasma creatinine measurement w ith calculation of estimated glomerular filtration rate > NRG Serum or plasma glucose measurement (mass/volume) 128 mg/dL 70-105 Serum or plasma calcium measurement (mass/volume) 8.3 mg/dL 8.5-10.1 Serum or plasma total bilirubin measurement (mass/volu me) 0.5 mg/dL 0.1-1.0 Serum or plasma alkaline phosphatase talon surement (enzymatic activity/volume) 103 U/L 40-136 Serum or plasma aspartate aminotransfera se measurement (enzymatic activity/volume) 15 U/L 5-34 Serum or plasma alanine aminotransferase measurement (enzymatic activity/volume) 15 U/L 0-55 Serum or plasma protein measurement (mass/volume) 5.8 g/dL 6.4-8.2 Serum or plasma albumin measurement (mass/volume) 3.0 g/dL 3.2-4.5 Serum or plasma C reactive protein measu rement (mass/volume) - 12/09/16 10:20 Serum or plasma C reactive protein measurement (mass/v olume) 9.80 mg/dL 0.00-0.50 Erythrocyte sedimentation rate by onel gren method - 12/09/16 10:20 Erythrocyte sedimentation rate by westergren method 38 mm 0- 20 Capillary blood glucose measurement by g lucometer (mass/volume) - 12/09/16 23:48 Capillary blood glucose measurement by glucometer (mas s/volume) 141 mg/dL 70-110 Complete blood count (CBC) with automate d white blood cell (WBC) differential - 12/10/16 06:33 Blood leukocytes automated count (number/volume) 7.6 10*3/uL 4.3-11.0 Blood erythrocytes automated count (number/volume) 4.41 10*6/uL 4.35-5.85 Venous blood hemoglobin measurement (mass/volume) 10.0 g/dL 11.5-16.0 Blood hematocrit (volume fraction) 35 % 35-52 Automated erythrocyte mean corpuscular volume 78 [ foz_us] 80-99 Automated erythrocyte mean corpuscular h emoglobin (mass per erythrocyte) 23 pg 25-34 Automated erythrocyte mean corpuscular h emoglobin concentration measurement (mass/volume) 29 g/dL 32-36 Automated erythrocyte distribution width ratio 19. 3 % 10.0- 14.5 Automated blood platelet count (count/volume) 291 10*3/uL 130-400 Automated blood platelet mean volume measurement 9.9 [foz_us] 7.4-10.4 Automated blood neutrophils/100 leukocytes 61 % 42-75 Automated blood lymphocytes/100 leukocytes 17 % 12-44 Blood monocytes/100 leukocytes 15 % 0-12 Automated blood eosinophils/100 leukocytes 7 % 0-10 Automated blood basophils/100 leukocytes 1 % 0-10 Blood neutrophils automated count (number/volume) 4.6 10*3 1.8-7.8 Blood lymphocytes automated count (number/volume) 1.3 10*3 1.0-4.0 Blood monocytes automated count (number/volume) 1. 1 10*3 0.0-1.0 Automated eosinophil count 0.5 10*3/uL 0 .0-0.3 Automated blood basophil count (count/volume) 0.1 10*3/uL 0.0-0.1 Comprehensive metabolic panel - 12/10/16 06:33 Serum or plasma sodium measurement (moles/volume) 141 mmol/L 135-145 Serum or plasma potassium measurement (moles/volume) 3.5 mmol/L 3.6-5.0 Serum or plasma chloride measurement (moles/volume) 106 mmol/L 98-107 Carbon dioxide 27 mmol/L 21-32 Serum or plasma anion gap determination (moles/volume) 8 mmol/L 5-14 Serum or plasma urea nitrogen measurement (mass/volume ) 8 mg/dL 7-18 Serum or plasma creatinine measurement (mass/volume) 0.72 mg/dL 0.60-1.30 Serum or plasma urea nitrogen/creatinine mass ratio 11 NRG Serum or plasma creatinine measurement w ith calculation of estimated glomerular filtration rate > NRG Serum or plasma glucose measurement (mass/volume) 113 mg/dL 70-105 Serum or plasma calcium measurement (mass/volume) 8.4 mg/dL 8.5-10.1 Serum or plasma total bilirubin measurement (mass/volu me) 0.4 mg/dL 0.1-1.0 Serum or plasma alkaline phosphatase talon surement (enzymatic activity/volume) 149 U/L 40-136 Serum or plasma aspartate aminotransfera se measurement (enzymatic activity/volume) 17 U/L 5-34 Serum or plasma alanine aminotransferase measurement (enzymatic activity/volume) 16 U/L 0-55 Serum or plasma protein measurement (mass/volume) 6.0 g/dL 6.4-8.2 Serum or plasma albumin measurement (mass/volume) 3.0 g/dL 3.2-4.5 Serum or plasma C reactive protein measu rement (mass/volume) - 12/10/16 06:33 Serum or plasma C reactive protein measurement (mass/v olume) 10.84 mg/dL 0.00-0.50 Erythrocyte sedimentation rate by onel gren method - 12/10/16 06:33 Erythrocyte sedimentation rate by westergren method 57 mm 0- 20 Complete blood count (CBC) with automate d white blood cell (WBC) differential - 12/11/16 05:26 Blood leukocytes automated count (number/volume) 7.6 10*3/uL 4.3-11.0 Blood erythrocytes automated count (number/volume) 4.33 10*6/uL 4.35-5.85 Venous blood hemoglobin measurement (mass/volume) 9.6 g/dL 11.5-16.0 Blood hematocrit (volume fraction) 34 % 35-52 Automated erythrocyte mean corpuscular volume 77 [ foz_us] 80-99 Automated erythrocyte mean corpuscular h emoglobin (mass per erythrocyte) 22 pg 25-34 Automated erythrocyte mean corpuscular h emoglobin concentration measurement (mass/volume) 29 g/dL 32-36 Automated erythrocyte distribution width ratio 19. 3 % 10.0- 14.5 Automated blood platelet count (count/volume) 309 10*3/uL 130-400 Automated blood platelet mean volume measurement 10.6 [foz_us] 7.4-10.4 Automated blood neutrophils/100 leukocytes 57 % 42-75 Automated blood lymphocytes/100 leukocytes 22 % 12-44 Blood monocytes/100 leukocytes 15 % 0-12 Automated blood eosinophils/100 leukocytes 6 % 0-10 Automated blood basophils/100 leukocytes 1 % 0-10 Blood neutrophils automated count (number/volume) 4.3 10*3 1.8-7.8 Blood lymphocytes automated count (number/volume) 1.7 10*3 1.0-4.0 Blood monocytes automated count (number/volume) 1. 1 10*3 0.0-1.0 Automated eosinophil count 0.5 10*3/uL 0 .0-0.3 Automated blood basophil count (count/volume) 0.1 10*3/uL 0.0-0.1 Comprehensive metabolic panel - 12/11/16 05:26 Serum or plasma sodium measurement (moles/volume) 141 mmol/L 135-145 Serum or plasma potassium measurement (moles/volume) 3.8 mmol/L 3.6-5.0 Serum or plasma chloride measurement (moles/volume) 108 mmol/L 98-107 Carbon dioxide 21 mmol/L 21-32 Serum or plasma anion gap determination (moles/volume) 12 mmol/L 5-14 Serum or plasma urea nitrogen measurement (mass/volume ) 7 mg/dL 7-18 Serum or plasma creatinine measurement (mass/volume) 0.71 mg/dL 0.60-1.30 Serum or plasma urea nitrogen/creatinine mass ratio 10 NRG Serum or plasma creatinine measurement w ith calculation of estimated glomerular filtration rate > NRG Serum or plasma glucose measurement (mass/volume) 93 mg/dL 70-105 Serum or plasma calcium measurement (mass/volume) 8.6 mg/dL 8.5-10.1 Serum or plasma total bilirubin measurement (mass/volu me) 0.2 mg/dL 0.1-1.0 Serum or plasma alkaline phosphatase talon surement (enzymatic activity/volume) 181 U/L 40-136 Serum or plasma aspartate aminotransfera se measurement (enzymatic activity/volume) 15 U/L 5-34 Serum or plasma alanine aminotransferase measurement (enzymatic activity/volume) 16 U/L 0-55 Serum or plasma protein measurement (mass/volume) 6.1 g/dL 6.4-8.2 Serum or plasma albumin measurement (mass/volume) 3.0 g/dL 3.2-4.5 CULTURE, AEROBIC - 01/11/17 19:48 Aerobic Bacterial Culture Final report NRG Result 1 Citrobacter freundii NRG Antimicrobial Susceptibility N RG CULTURE, AEROBIC - 01/20/17 00:00 Aerobic Bacterial Culture Final report NRG Result 1 Escherichia hermannii NRG Antimicrobial Susceptibility N RG Complete blood count (CBC) with automate d white blood cell (WBC) differential - 01/24/17 19:55 Blood leukocytes automated count (number/volume) 12.4 10*3/uL 4.3-11.0 Blood erythrocytes automated count (number/volume) 4.90 10*6/uL 4.35-5.85 Venous blood hemoglobin measurement (mass/volume) 10.7 g/dL 11.5-16.0 Blood hematocrit (volume fraction) 36 % 35-52 Automated erythrocyte mean corpuscular volume 73 [ foz_us] 80-99 Automated erythrocyte mean corpuscular h emoglobin (mass per erythrocyte) 22 pg 25-34 Automated erythrocyte mean corpuscular h emoglobin concentration measurement (mass/volume) 30 g/dL 32-36 Automated erythrocyte distribution width ratio 19. 0 % 10.0- 14.5 Automated blood platelet count (count/volume) 328 10*3/uL 130-400 Automated blood platelet mean volume measurement 10.5 [foz_us] 7.4-10.4 Automated blood neutrophils/100 leukocytes 69 % 42-75 Automated blood lymphocytes/100 leukocytes 18 % 12-44 Blood monocytes/100 leukocytes 11 % 0-12 Automated blood eosinophils/100 leukocytes 2 % 0-10 Automated blood basophils/100 leukocytes 1 % 0-10 Blood neutrophils automated count (number/volume) 8.6 10*3 1.8-7.8 Blood lymphocytes automated count (number/volume) 2.2 10*3 1.0-4.0 Blood monocytes automated count (number/volume) 1. 3 10*3 0.0-1.0 Automated eosinophil count 0.2 10*3/uL 0 .0-0.3 Automated blood basophil count (count/volume) 0.1 10*3/uL 0.0-0.1 Blood lactic acid measurement (moles/vol ume) - 01/24/17 19:55 Blood lactic acid measurement (moles/volume) 0.72 mmol/L 0.50-2.00 PT panel in platelet poor plasma by coag ulation assay - 01/24/17 19:55 Prothrombin time (PT) in platelet poor plasma by coagu lation assay 13.7 s 12.2-14.7 INR in platelet poor plasma or blood by coagulation as say 1.0 0.8-1.4 Activated partial thromboplastin time (a PTT) in platelet poor plasma bycoagulation assay - 01/24/17 19:55 Activated partial thromboplastin time (a PTT) in platelet poor plasma bycoagulation assay 28 s 24-35 Comprehensive metabolic panel - 01/24/17 19:55 Serum or plasma sodium measurement (moles/volume) 135 mmol/L 135-145 Serum or plasma potassium measurement (moles/volume) 4.2 mmol/L 3.6-5.0 Serum or plasma chloride measurement (moles/volume) 102 mmol/L 98-107 Carbon dioxide 24 mmol/L 21-32 Serum or plasma anion gap determination (moles/volume) 9 mmol/L 5-14 Serum or plasma urea nitrogen measurement (mass/volume ) 10 mg/dL 7-18 Serum or plasma creatinine measurement (mass/volume) 0.83 mg/dL 0.60-1.30 Serum or plasma urea nitrogen/creatinine mass ratio 12 NRG Serum or plasma creatinine measurement w ith calculation of estimated glomerular filtration rate > NRG Serum or plasma glucose measurement (mass/volume) 97 mg/dL 70-105 Serum or plasma calcium measurement (mass/volume) 9.2 mg/dL 8.5-10.1 Serum or plasma total bilirubin measurement (mass/volu me) 0.5 mg/dL 0.1-1.0 Serum or plasma alkaline phosphatase talon surement (enzymatic activity/volume) 122 U/L 40-136 Serum or plasma aspartate aminotransfera se measurement (enzymatic activity/volume) 18 U/L 5-34 Serum or plasma alanine aminotransferase measurement (enzymatic activity/volume) 18 U/L 0-55 Serum or plasma protein measurement (mass/volume) 7.1 g/dL 6.4-8.2 Serum or plasma albumin measurement (mass/volume) 3.5 g/dL 3.2-4.5 Bacterial blood culture - 01/24/17 19:55 Bacterial blood culture NG NRG Bacterial blood culture - 01/24/17 20:00 Bacterial blood culture NG NRG Urine drug screening test - 01/25/17 03: 40 Urine phencyclidine detection by screening method NEGATIVE NEGATIVE Urine benzodiazepines detection by screening method NEGATIVE NEGATIVE Urine cocaine detection NEGATIVE NEGATI VE Urine amphetamines detection by screening method N EGATIVE NEGATIVE Urine methamphetamine detection by screening method NEGATIVE NEGATIVE Urine cannabinoids detection by screening method N EGATIVE NEGATIVE Urine opiates detection by screening method NEGATI VE NEGATIVE Urine barbiturates detection NEGATIVE N EGATIVE Screening urine tricyclic antidepressants detection NEGATIVE NEGATIVE Urine methadone detection by screening method NEGA TIVE NEGATIVE Urine oxycodone detection NEGATIVE NEGA TIVE Urine propoxyphene detection NEGATIVE N EGATIVE Whole blood basic metabolic panel - 01/14 07/02 05:13 Serum or plasma sodium measurement (moles/volume) 137 mmol/L 135-145 Serum or plasma potassium measurement (moles/volume) 4.2 mmol/L 3.6-5.0 Serum or plasma chloride measurement (moles/volume) 109 mmol/L 98-107 Carbon dioxide 18 mmol/L 21-32 Serum or plasma anion gap determination (moles/volume) 10 mmol/L 5-14 Serum or plasma urea nitrogen measurement (mass/volume ) 10 mg/dL 7-18 Serum or plasma creatinine measurement (mass/volume) 0.80 mg/dL 0.60-1.30 Serum or plasma urea nitrogen/creatinine mass ratio 13 NRG Serum or plasma creatinine measurement w ith calculation of estimated glomerular filtration rate > NRG Serum or plasma glucose measurement (mass/volume) 98 mg/dL 70-105 Serum or plasma calcium measurement (mass/volume) 8.5 mg/dL 8.5-10.1 Complete blood count (CBC) with automate d white blood cell (WBC) differential - 01/25/17 05:20 Blood leukocytes automated count (number/volume) 12.2 10*3/uL 4.3-11.0 Blood erythrocytes automated count (number/volume) 4.66 10*6/uL 4.35-5.85 Venous blood hemoglobin measurement (mass/volume) 10.0 g/dL 11.5-16.0 Blood hematocrit (volume fraction) 34 % 35-52 Automated erythrocyte mean corpuscular volume 74 [ foz_us] 80-99 Automated erythrocyte mean corpuscular h emoglobin (mass per erythrocyte) 22 pg 25-34 Automated erythrocyte mean corpuscular h emoglobin concentration measurement (mass/volume) 29 g/dL 32-36 Automated erythrocyte distribution width ratio 19. 1 % 10.0- 14.5 Automated blood platelet count (count/volume) 286 10*3/uL 130-400 Automated blood platelet mean volume measurement 10.9 [foz_us] 7.4-10.4 Automated blood neutrophils/100 leukocytes 74 % 42-75 Automated blood lymphocytes/100 leukocytes 12 % 12-44 Blood monocytes/100 leukocytes 13 % 0-12 Automated blood eosinophils/100 leukocytes 2 % 0-10 Automated blood basophils/100 leukocytes 1 % 0-10 Blood neutrophils automated count (number/volume) 8.9 10*3 1.8-7.8 Blood lymphocytes automated count (number/volume) 1.4 10*3 1.0-4.0 Blood monocytes automated count (number/volume) 1. 5 10*3 0.0-1.0 Automated eosinophil count 0.2 10*3/uL 0 .0-0.3 Automated blood basophil count (count/volume) 0.1 10*3/uL 0.0-0.1 Complete blood count (CBC) with automate d white blood cell (WBC) differential - 02/09/17 12:50 Blood leukocytes automated count (number/volume) 6.5 10*3/uL 4.3-11.0 Blood erythrocytes automated count (number/volume) 4.33 10*6/uL 4.35-5.85 Venous blood hemoglobin measurement (mass/volume) 8.9 g/dL 11.5-16.0 Blood hematocrit (volume fraction) 31 % 35-52 Automated erythrocyte mean corpuscular volume 72 [ foz_us] 80-99 Automated erythrocyte mean corpuscular h emoglobin (mass per erythrocyte) 21 pg 25-34 Automated erythrocyte mean corpuscular h emoglobin concentration measurement (mass/volume) 29 g/dL 32-36 Automated erythrocyte distribution width ratio 18. 3 % 10.0- 14.5 Automated blood platelet count (count/volume) 327 10*3/uL 130-400 Automated blood platelet mean volume measurement 10.0 [foz_us] 7.4-10.4 Automated blood neutrophils/100 leukocytes 67 % 42-75 Automated blood lymphocytes/100 leukocytes 20 % 12-44 Blood monocytes/100 leukocytes 10 % 0-12 Automated blood eosinophils/100 leukocytes 1 % 0-10 Automated blood basophils/100 leukocytes 1 % 0-10 Blood neutrophils automated count (number/volume) 4.4 10*3 1.8-7.8 Blood lymphocytes automated count (number/volume) 1.3 10*3 1.0-4.0 Blood monocytes automated count (number/volume) 0. 7 10*3 0.0-1.0 Automated eosinophil count 0.1 10*3/uL 0 .0-0.3 Automated blood basophil count (count/volume) 0.1 10*3/uL 0.0-0.1 Comprehensive metabolic panel - 02/09/17 12:50 Serum or plasma sodium measurement (moles/volume) 141 mmol/L 135-145 Serum or plasma potassium measurement (moles/volume) 3.5 mmol/L 3.6-5.0 Serum or plasma chloride measurement (moles/volume) 111 mmol/L 98-107 Carbon dioxide 22 mmol/L 21-32 Serum or plasma anion gap determination (moles/volume) 8 mmol/L 5-14 Serum or plasma urea nitrogen measurement (mass/volume ) 6 mg/dL 7-18 Serum or plasma creatinine measurement (mass/volume) 0.65 mg/dL 0.60-1.30 Serum or plasma urea nitrogen/creatinine mass ratio 9 NRG Serum or plasma creatinine measurement w ith calculation of estimated glomerular filtration rate > NRG Serum or plasma glucose measurement (mass/volume) 112 mg/dL 70-105 Serum or plasma calcium measurement (mass/volume) 8.7 mg/dL 8.5-10.1 Serum or plasma total bilirubin measurement (mass/volu me) 0.5 mg/dL 0.1-1.0 Serum or plasma alkaline phosphatase talon surement (enzymatic activity/volume) 87 U/L 40-136 Serum or plasma aspartate aminotransfera se measurement (enzymatic activity/volume) 13 U/L 5-34 Serum or plasma alanine aminotransferase measurement (enzymatic activity/volume) 10 U/L 0-55 Serum or plasma protein measurement (mass/volume) 6.4 g/dL 6.4-8.2 Serum or plasma albumin measurement (mass/volume) 3.2 g/dL 3.2-4.5 Complete urinalysis with reflex to cultu re - 02/09/17 12:55 Urine color determination YELLOW NRG Urine clarity determination CLEAR NR G Urine pH measurement by test strip 7 5-9 Specific gravity of urine by test strip 1.005 1.016-1.022 Urine protein assay by test strip, semi-quantitative NEGATIVE NEGATIVE Urine glucose detection by automated test strip NE GATIVE NEGATIVE Erythrocytes detection in urine sediment by light micr oscopy NEGATIVE NEGATIVE Urine ketones detection by automated test strip NE GATIVE NEGATIVE Urine nitrite detection by test strip NEGATIVE NEGATIVE Urine total bilirubin detection by test strip NEGA TIVE NEGATIVE Urine urobilinogen measurement by automated test strip (mass/volume) NORMAL NORMAL Urine leukocyte esterase detection by dipstick NEG ATIVE NEGATIVE Automated urine sediment erythrocyte cou nt by microscopy (number/high power field) NONE NRG Automated urine sediment leukocyte count by microscopy (number/high power field) NONE NRG Bacteria detection in urine sediment by light microsco py NEGATIVE NRG Squamous epithelial cells detection in u rine sediment by light microscopy RARE NRG Crystals detection in urine sediment by light microsco py NONE NRG Casts detection in urine sediment by light microscopy NONE NRG Mucus detection in urine sediment by light microscopy NEGATIVE NRG Complete urinalysis with reflex to culture NO NRG C DIFFICILE AG + TOXIN A/B. - 02/09/17 1 4:00 RESULTS NEGATIVE FOR ANTIGEN AND TOXIN A/B NRG Stool bacteria identification by culture - 02/09/17 14:00 NEGATIVE FOR 0157 NEGATIVE FOR E COLI 0157 NRG NEGATIVE FOR CAMPY NEGATIVE FOR CAMPYLOBACTER NRG NEGATIVE FOR SHIGELLA NEGATIVE FOR SHIGELLA NRG NEGATIVE FOR SALMONELLA NEGATIVE FOR SALMONELLA NRG Complete urinalysis with reflex to cultu re - 06/20/17 17:59 Urine color determination YELLOW NRG Urine clarity determination CLEAR NR G Urine pH measurement by test strip 5 5-9 Specific gravity of urine by test strip 1.020 1.016-1.022 Urine protein assay by test strip, semi-quantitative 1+ NEGATIVE Urine glucose detection by automated test strip NE GATIVE NEGATIVE Erythrocytes detection in urine sediment by light micr oscopy NEGATIVE NEGATIVE Urine ketones detection by automated test strip NE GATIVE NEGATIVE Urine nitrite detection by test strip NEGATIVE NEGATIVE Urine total bilirubin detection by test strip 1+ NEGATIVE Urine urobilinogen measurement by automated test strip (mass/volume) 1 mg/dL NORMAL Urine leukocyte esterase detection by dipstick NEG ATIVE NEGATIVE Automated urine sediment erythrocyte cou nt by microscopy (number/high power field) NONE NRG Automated urine sediment leukocyte count by microscopy (number/high power field) NONE NRG Bacteria detection in urine sediment by light microsco py NEGATIVE NRG Squamous epithelial cells detection in u rine sediment by light microscopy 10-25 NRG Crystals detection in urine sediment by light microsco py NONE NRG Casts detection in urine sediment by light microscopy NONE NRG Mucus detection in urine sediment by light microscopy NEGATIVE NRG Complete urinalysis with reflex to culture NO NRG Influenza virus A and B antigen detectio n - 06/20/17 18:05 FLU RESULT NEGATIVE FOR INFLUENZA A AND B ANTIGENS BY IA NRG Complete blood count (CBC) with automate d white blood cell (WBC) differential - 06/20/17 18:35 Blood leukocytes automated count (number/volume) 15.4 10*3/uL 4.3-11.0 Blood erythrocytes automated count (number/volume) 4.97 10*6/uL 4.35-5.85 Venous blood hemoglobin measurement (mass/volume) 10.8 g/dL 11.5-16.0 Blood hematocrit (volume fraction) 36 % 35-52 Automated erythrocyte mean corpuscular volume 72 [ foz_us] 80-99 Automated erythrocyte mean corpuscular h emoglobin (mass per erythrocyte) 22 pg 25-34 Automated erythrocyte mean corpuscular h emoglobin concentration measurement (mass/volume) 30 g/dL 32-36 Automated erythrocyte distribution width ratio 18. 7 % 10.0- 14.5 Automated blood platelet count (count/volume) 299 10*3/uL 130-400 Automated blood platelet mean volume measurement 10.9 [foz_us] 7.4-10.4 Automated blood neutrophils/100 leukocytes 73 % 42-75 Automated blood lymphocytes/100 leukocytes 13 % 12-44 Blood monocytes/100 leukocytes 12 % 0-12 Automated blood eosinophils/100 leukocytes 1 % 0-10 Automated blood basophils/100 leukocytes 1 % 0-10 Blood neutrophils automated count (number/volume) 11.3 10*3 1.8-7.8 Blood lymphocytes automated count (number/volume) 1.9 10*3 1.0-4.0 Blood monocytes automated count (number/volume) 1. 9 10*3 0.0-1.0 Automated eosinophil count 0.2 10*3/uL 0 .0-0.3 Automated blood basophil count (count/volume) 0.1 10*3/uL 0.0-0.1 PT panel in platelet poor plasma by coag ulation assay - 06/20/17 18:35 Prothrombin time (PT) in platelet poor plasma by coagu lation assay 14.0 s 12.2-14.7 INR in platelet poor plasma or blood by coagulation as say 1.1 0.8-1.4 Activated partial thromboplastin time (a PTT) in platelet poor plasma bycoagulation assay - 06/20/17 18:35 Activated partial thromboplastin time (a PTT) in platelet poor plasma bycoagulation assay 28 s 24-35 Blood manual differential performed dete ction - 06/20/17 18:35 Blood monocytes/100 leukocytes 6 % NRG Manual blood segmented neutrophils/100 leukocytes 78 % NRG Blood band neutrophils/100 leukocytes 0 % NRG Manual blood lymphocytes/100 leukocytes 16 % NRG Manual eosinophils/100 leukocytes in nose 0 % NRG Manual blood basophils/100 leukocytes 0 % NRG Blood microcytes detection by light microscopy I T [facility] Bacterial blood culture - 06/20/17 18:35 Bacterial blood culture NG NRG Bacterial blood culture - 06/20/17 19:06 Bacterial blood culture NG [facility] Blood lactic acid measurement (moles/vol ume) - 06/20/17 20:30 Blood lactic acid measurement (moles/volume) 0.52 mmol/L 0.50-2.00 Comprehensive metabolic panel - 06/20/17 20:30 Serum or plasma sodium measurement (moles/volume) 139 mmol/L 135-145 Serum or plasma potassium measurement (moles/volume) 4.1 mmol/L 3.6-5.0 Serum or plasma chloride measurement (moles/volume) 110 mmol/L 98-107 Carbon dioxide 19 mmol/L 21-32 Serum or plasma anion gap determination (moles/volume) 10 mmol/L 5-14 Serum or plasma urea nitrogen measurement (mass/volume ) 12 mg/dL 7-18 Serum or plasma creatinine measurement (mass/volume) 0.63 mg/dL 0.60-1.30 Serum or plasma urea nitrogen/creatinine mass ratio 19 NRG Serum or plasma creatinine measurement w ith calculation of estimated glomerular filtration rate > NRG Serum or plasma glucose measurement (mass/volume) 76 mg/dL 70-105 Serum or plasma calcium measurement (mass/volume) 8.2 mg/dL 8.5-10.1 Serum or plasma total bilirubin measurement (mass/volu me) 0.3 mg/dL 0.1-1.0 Serum or plasma alkaline phosphatase talon surement (enzymatic activity/volume) 117 U/L 40-136 Serum or plasma aspartate aminotransfera se measurement (enzymatic activity/volume) 30 U/L 5-34 Serum or plasma alanine aminotransferase measurement (enzymatic activity/volume) 19 U/L 0-55 Serum or plasma protein measurement (mass/volume) 6.2 g/dL 6.4-8.2 Serum or plasma albumin measurement (mass/volume) 3.1 g/dL 3.2-4.5 CULTURE, AEROBIC - 06/22/17 14:47 CULTURE, AEROBIC BACTERIA SEE NOTE NRG Complete blood count (CBC) with automate d white blood cell (WBC) differential - 07/01/17 22:09 Blood leukocytes automated count (number/volume) 15.0 10*3/uL 4.3-11.0 Blood erythrocytes automated count (number/volume) 4.77 10*6/uL 4.35-5.85 Venous blood hemoglobin measurement (mass/volume) 10.2 g/dL 11.5-16.0 Blood hematocrit (volume fraction) 34 % 35-52 Automated erythrocyte mean corpuscular volume 71 [ foz_us] 80-99 Automated erythrocyte mean corpuscular h emoglobin (mass per erythrocyte) 21 pg 25-34 Automated erythrocyte mean corpuscular h emoglobin concentration measurement (mass/volume) 30 g/dL 32-36 Automated erythrocyte distribution width ratio 18. 4 % 10.0- 14.5 Automated blood platelet count (count/volume) 352 10*3/uL 130-400 Automated blood platelet mean volume measurement 9.7 [foz_us] 7.4-10.4 Automated blood neutrophils/100 leukocytes 74 % 42-75 Automated blood lymphocytes/100 leukocytes 13 % 12-44 Blood monocytes/100 leukocytes 11 % 0-12 Automated blood eosinophils/100 leukocytes 2 % 0-10 Automated blood basophils/100 leukocytes 1 % 0-10 Blood neutrophils automated count (number/volume) 11.0 10*3 1.8-7.8 Blood lymphocytes automated count (number/volume) 2.0 10*3 1.0-4.0 Blood monocytes automated count (number/volume) 1. 7 10*3 0.0-1.0 Automated eosinophil count 0.3 10*3/uL 0 .0-0.3 Automated blood basophil count (count/volume) 0.1 10*3/uL 0.0-0.1 Complete urinalysis with reflex to cultu re - 07/01/17 22:09 Urine color determination YELLOW NRG Urine clarity determination CLEAR NR G Urine pH measurement by test strip 6.5 5-9 Specific gravity of urine by test strip 1.015 1.016-1.022 Urine protein assay by test strip, semi-quantitative NEGATIVE NEGATIVE Urine glucose detection by automated test strip NE GATIVE NEGATIVE Erythrocytes detection in urine sediment by light micr oscopy NEGATIVE NEGATIVE Urine ketones detection by automated test strip NE GATIVE NEGATIVE Urine nitrite detection by test strip NEGATIVE NEGATIVE Urine total bilirubin detection by test strip NEGA TIVE NEGATIVE Urine urobilinogen measurement by automated test strip (mass/volume) NORMAL NORMAL Urine leukocyte esterase detection by dipstick 1+ NEGATIVE Automated urine sediment erythrocyte cou nt by microscopy (number/high power field) NONE NRG Automated urine sediment leukocyte count by microscopy (number/high power field) RARE NRG Bacteria detection in urine sediment by light microsco py TRACE NRG Squamous epithelial cells detection in u rine sediment by light microscopy 10-25 NRG Crystals detection in urine sediment by light microsco py NONE NRG Casts detection in urine sediment by light microscopy NONE NRG Mucus detection in urine sediment by light microscopy NEGATIVE NRG Complete urinalysis with reflex to culture NO NRG Urine drug screening test - 07/01/17 22: 09 Urine phencyclidine detection by screening method NEGATIVE NEGATIVE Urine benzodiazepines detection by screening method NEGATIVE NEGATIVE Urine cocaine detection NEGATIVE NEGATI VE Urine amphetamines detection by screening method N EGATIVE NEGATIVE Urine methamphetamine detection by screening method NEGATIVE NEGATIVE Urine cannabinoids detection by screening method N EGATIVE NEGATIVE Urine opiates detection by screening method NEGATI VE NEGATIVE Urine barbiturates detection NEGATIVE N EGATIVE Screening urine tricyclic antidepressants detection NEGATIVE NEGATIVE Urine methadone detection by screening method NEGA TIVE NEGATIVE Urine oxycodone detection NEGATIVE NEGA TIVE Urine propoxyphene detection NEGATIVE N EGATIVE Blood manual differential performed dete ction - 07/01/17 22:09 Blood monocytes/100 leukocytes 4 % NRG Manual blood segmented neutrophils/100 leukocytes 81 % NRG Blood band neutrophils/100 leukocytes 0 % NRG Manual blood lymphocytes/100 leukocytes 15 % NRG Manual eosinophils/100 leukocytes in nose 0 % NRG Manual blood basophils/100 leukocytes 0 % NRG Blood ovalocytes detection by light microscopy I T NRG Blood hypochromia detection by light microscopy [facility] Blood microcytes detection by light microscopy [facility] Blood spherocytes detection by light microscopy [facility] Comprehensive metabolic panel - 07/01/17 22:09 Serum or plasma sodium measurement (moles/volume) 139 mmol/L 135-145 Serum or plasma potassium measurement (moles/volume) 3.9 mmol/L 3.6-5.0 Serum or plasma chloride measurement (moles/volume) 106 mmol/L 98-107 Carbon dioxide 22 mmol/L 21-32 Serum or plasma anion gap determination (moles/volume) 11 mmol/L 5-14 Serum or plasma urea nitrogen measurement (mass/volume ) 10 mg/dL 7-18 Serum or plasma creatinine measurement (mass/volume) 0.74 mg/dL 0.60-1.30 Serum or plasma urea nitrogen/creatinine mass ratio 14 NRG Serum or plasma creatinine measurement w ith calculation of estimated glomerular filtration rate > NRG Serum or plasma glucose measurement (mass/volume) 102 mg/dL 70-105 Serum or plasma calcium measurement (mass/volume) 8.8 mg/dL 8.5-10.1 Serum or plasma total bilirubin measurement (mass/volu me) 0.3 mg/dL 0.1-1.0 Serum or plasma alkaline phosphatase talon surement (enzymatic activity/volume) 136 U/L 40-136 Serum or plasma aspartate aminotransfera se measurement (enzymatic activity/volume) 35 U/L 5-34 Serum or plasma alanine aminotransferase measurement (enzymatic activity/volume) 29 U/L 0-55 Serum or plasma protein measurement (mass/volume) 6.9 g/dL 6.4-8.2 Serum or plasma albumin measurement (mass/volume) 3.4 g/dL 3.2-4.5 Serum or plasma C reactive protein measu rement (mass/volume) - 07/01/17 22:09 Serum or plasma C reactive protein measurement (mass/v olume) 4.43 mg/dL 0.00-0.50 Erythrocyte sedimentation rate by onel gren method - 07/01/17 22:09 Erythrocyte sedimentation rate by westergren method 37 mm 0- 20 Blood lactic acid measurement (moles/vol ume) - 07/01/17 22:50 Blood lactic acid measurement (moles/volume) 0.73 mmol/L 0.50-2.00 Bacterial blood culture - 07/01/17 22:50 Bacterial blood culture NG NRG Gram stain microscopy - 07/01/17 23:00 GRAM STAIN RESULT FEW WBC'S, NO BACTERIA OBSERVED NRG Bacteria identification in wound by cult ure - 07/01/17 23:00 Bacteria identification in wound by culture [id number] NRG FREE TEXT EXTERNAL SENSITIVITY REPORTED AT 0742, 2 18 NRG QUANTITY OF GROWTH Scant Growth NRG FREE TEXT ENTRY 2 VANCOMYCIN RESISTANT ENTEROCOCCU S [facility] Bacterial susceptibility panel - 8 23:00 Gentamicin susceptibility test by minimum inhibitory c oncentration S NRG Erythromycin susceptibility test by minimum inhibitory concentration >= NRG Vancomycin susceptibility test by minimum inhibitory c oncentration >= NRG Ampicillin susceptibility test by minimum inhibitory c oncentration >= NRG Linezolid susceptibility test by minimum inhibitory co ncentration 2 NRG Bacterial blood culture - 07/01/17 23:17 Bacterial blood culture NG NRG CULTURE, ANAEROBIC AND AEROBIC - 8 15:39 CULTURE, ANAEROBIC BACTERIA W/GRAM STAIN SEE NOTE NRG CULTURE, AEROBIC BACTERIA SEE NOTE NRG Influenza virus A and B antigen detectio n - 02/27/18 02:12 FLU RESULT NEGATIVE FOR INFLUENZA A AND B ANTIGENS BY IA NRG Complete blood count (CBC) with automate d white blood cell (WBC) differential - 02/27/18 02:34 Blood leukocytes automated count (number/volume) 9.3 10*3/uL 4.3-11.0 Blood erythrocytes automated count (number/volume) 4.46 10*6/uL 4.35-5.85 Venous blood hemoglobin measurement (mass/volume) 9.8 g/dL 11.5-16.0 Blood hematocrit (volume fraction) 32 % 35-52 Automated erythrocyte mean corpuscular volume 71 [ foz_us] 80-99 Automated erythrocyte mean corpuscular h emoglobin (mass per erythrocyte) 22 pg 25-34 Automated erythrocyte mean corpuscular h emoglobin concentration measurement (mass/volume) 31 g/dL 32-36 Automated erythrocyte distribution width ratio 18. 4 % 10.0- 14.5 Automated blood platelet count (count/volume) 318 10*3/uL 130-400 Automated blood platelet mean volume measurement 10.2 [foz_us] 7.4-10.4 Automated blood neutrophils/100 leukocytes 54 % 42-75 Automated blood lymphocytes/100 leukocytes 31 % 12-44 Blood monocytes/100 leukocytes 10 % 0-12 Automated blood eosinophils/100 leukocytes 4 % 0-10 Automated blood basophils/100 leukocytes 2 % 0-10 Blood neutrophils automated count (number/volume) 5.0 10*3 1.8-7.8 Blood lymphocytes automated count (number/volume) 2.9 10*3 1.0-4.0 Blood monocytes automated count (number/volume) 1. 0 10*3 0.0-1.0 Automated eosinophil count 0.4 10*3/uL 0 .0-0.3 Automated blood basophil count (count/volume) 0.1 10*3/uL 0.0-0.1 Blood blood smear finding identification by light micr oscopy YES [facility] Comprehensive metabolic panel - 02/27/18 02:34 Serum or plasma sodium measurement (moles/volume) 140 mmol/L 135-145 Serum or plasma potassium measurement (moles/volume) 4.1 mmol/L 3.6-5.0 Serum or plasma chloride measurement (moles/volume) 108 mmol/L 98-107 Carbon dioxide 20 mmol/L 21-32 Serum or plasma anion gap determination (moles/volume) 12 mmol/L 5-14 Serum or plasma urea nitrogen measurement (mass/volume ) 9 mg/dL 7-18 Serum or plasma creatinine measurement (mass/volume) 0.81 mg/dL 0.60-1.30 Serum or plasma urea nitrogen/creatinine mass ratio 11 NRG Serum or plasma creatinine measurement w ith calculation of estimated glomerular filtration rate > NRG Serum or plasma glucose measurement (mass/volume) 89 mg/dL 70-105 Serum or plasma calcium measurement (mass/volume) 9.2 mg/dL 8.5-10.1 Serum or plasma total bilirubin measurement (mass/volu me) 0.3 mg/dL 0.1-1.0 Serum or plasma alkaline phosphatase talon surement (enzymatic activity/volume) 91 U/L 40-136 Serum or plasma aspartate aminotransfera se measurement (enzymatic activity/volume) 19 U/L 5-34 Serum or plasma alanine aminotransferase measurement (enzymatic activity/volume) 16 U/L 0-55 Serum or plasma protein measurement (mass/volume) 6.7 g/dL 6.4-8.2 Serum or plasma albumin measurement (mass/volume) 3.7 g/dL 3.2-4.5 CALCIUM CORRECTED 9.4 mg/dL 8.5-10.1 Magnesium - 02/27/18 02:34 Magnesium 2.1 mg/dL 1.8-2.4 Serum or plasma troponin i.cardiac measu rement (mass/volume) - 02/27/18 02:34 Serum or plasma troponin i.cardiac measurement (mass/v olume) < ng/mL <0.30 PT panel in platelet poor plasma by coag ulation assay - 02/27/18 02:34 Prothrombin time (PT) in platelet poor plasma by coagu lation assay 13.7 s 12.2-14.7 INR in platelet poor plasma or blood by coagulation as say 1.1 0.8-1.4 Activated partial thromboplastin time (a PTT) in platelet poor plasma bycoagulation assay - 02/27/18 02:34 Activated partial thromboplastin time (a PTT) in platelet poor plasma bycoagulation assay 26 s 24-35 Myoglobin, serum - 02/27/18 02:34 Myoglobin, serum 26.4 ng/mL 10.0-92.0 Lipase - 02/27/18 02:34 Lipase 35 U/L 8-78 Complete blood count (CBC) with automate d white blood cell (WBC) differential - 05/08/18 03:20 Blood leukocytes automated count (number/volume) 9.8 10*3/uL 4.3-11.0 Blood erythrocytes automated count (number/volume) 5.00 10*6/uL 4.35-5.85 Venous blood hemoglobin measurement (mass/volume) 10.5 g/dL 11.5-16.0 Blood hematocrit (volume fraction) 35 % 35-52 Automated erythrocyte mean corpuscular volume 70 [ foz_us] 80-99 Automated erythrocyte mean corpuscular h emoglobin (mass per erythrocyte) 21 pg 25-34 Automated erythrocyte mean corpuscular h emoglobin concentration measurement (mass/volume) 30 g/dL 32-36 Automated erythrocyte distribution width ratio 19. 5 % 10.0- 14.5 Automated blood platelet count (count/volume) 284 10*3/uL 130-400 Automated blood platelet mean volume measurement 10.5 [foz_us] 7.4-10.4 Automated blood neutrophils/100 leukocytes 64 % 42-75 Automated blood lymphocytes/100 leukocytes 23 % 12-44 Blood monocytes/100 leukocytes 11 % 0-12 Automated blood eosinophils/100 leukocytes 2 % 0-10 Automated blood basophils/100 leukocytes 1 % 0-10 Blood neutrophils automated count (number/volume) 6.3 10*3 1.8-7.8 Blood lymphocytes automated count (number/volume) 2.3 10*3 1.0-4.0 Blood monocytes automated count (number/volume) 1. 1 10*3 0.0-1.0 Automated eosinophil count 0.2 10*3/uL 0 .0-0.3 Automated blood basophil count (count/volume) 0.1 10*3/uL 0.0-0.1 Comprehensive metabolic panel - 05/08/18 03:20 Serum or plasma sodium measurement (moles/volume) 138 mmol/L 135-145 Serum or plasma potassium measurement (moles/volume) 4.5 mmol/L 3.6-5.0 Serum or plasma chloride measurement (moles/volume) 108 mmol/L 98-107 Carbon dioxide 21 mmol/L 21-32 Serum or plasma anion gap determination (moles/volume) 9 mmol/L 5-14 Serum or plasma urea nitrogen measurement (mass/volume ) 17 mg/dL 7-18 Serum or plasma creatinine measurement (mass/volume) 0.71 mg/dL 0.60-1.30 Serum or plasma urea nitrogen/creatinine mass ratio 24 NRG Serum or plasma creatinine measurement w ith calculation of estimated glomerular filtration rate > NRG Serum or plasma glucose measurement (mass/volume) 94 mg/dL 70-105 Serum or plasma calcium measurement (mass/volume) 8.4 mg/dL 8.5-10.1 Serum or plasma total bilirubin measurement (mass/volu me) 0.2 mg/dL 0.1-1.0 Serum or plasma alkaline phosphatase talon surement (enzymatic activity/volume) 82 U/L 40-136 Serum or plasma aspartate aminotransfera se measurement (enzymatic activity/volume) 19 U/L 5-34 Serum or plasma alanine aminotransferase measurement (enzymatic activity/volume) 19 U/L 0-55 Serum or plasma protein measurement (mass/volume) 5.9 g/dL 6.4-8.2 Serum or plasma albumin measurement (mass/volume) 3.3 g/dL 3.2-4.5 CALCIUM CORRECTED 9.0 mg/dL 8.5-10.1 CMP - 10/04/18 09:49 GLUCOSE 86 mg/dL 65-99 UREA NITROGEN (BUN) 9 mg/dL 7-25 CREATININE 0.80 mg/dL 0.50-1.10 eGFR NON-AFR. [place] 88 mL/min/1.73m2 > OR = 60 eGFR 102 mL/min/1.73m2 > OR = 60 BUN/CREATININE RATIO NOT APPLICABLE (calc) 6-22 SODIUM 140 mmol/L 135-146 POTASSIUM 3.9 mmol/L 3.5-5.3 CHLORIDE 104 mmol/L 98-110 CARBON DIOXIDE 27 mmol/L 20-32 CALCIUM 9.8 mg/dL 8.6-10.2 PROTEIN, TOTAL 7.3 g/dL 6.1-8.1 ALBUMIN 4.2 g/dL 3.6-5.1 GLOBULIN 3.1 g/dL (calc) 1.9-3.7 ALBUMIN/GLOBULIN RATIO 1.4 (calc) 1.0-2. 5 BILIRUBIN, TOTAL 0.3 mg/dL 0.2-1.2 ALKALINE PHOSPHATASE 104 U/L 33-115 AST 19 U/L 10-35 ALT 14 U/L 6-29 CBC - 10/04/18 09:49 WHITE BLOOD CELL COUNT 8.4 Thousand/uL 3 .8-10.8 RED BLOOD CELL COUNT 5.28 Million/uL 3.8 0-5.10 HEMOGLOBIN 10.6 g/dL 11.7-15.5 HEMATOCRIT 38.0 % 35.0-45.0 MCV 72.0 fL 80.0-100.0 MCH 20.1 pg 27.0-33.0 MCHC 27.9 g/dL 32.0-36.0 RDW 18.3 % 11.0-15.0 PLATELET COUNT 353 Thousand/uL 140-400 MPV 11.1 fL 7.5-12.5 ABSOLUTE NEUTROPHILS 4570 cells/uL 1500- 7800 ABSOLUTE LYMPHOCYTES 2663 cells/uL 850-3 900 ABSOLUTE MONOCYTES 798 cells/uL 200-950 ABSOLUTE EOSINOPHILS 252 cells/uL 15-500 ABSOLUTE BASOPHILS 118 cells/uL 0-200 NEUTROPHILS 54.4 % NRG LYMPHOCYTES 31.7 % NRG MONOCYTES 9.5 % NRG EOSINOPHILS 3.0 % NRG BASOPHILS 1.4 % NRG CULTURE, ANAEROBIC AND AEROBIC - 0 16:09 CULTURE, ANAEROBIC BACTERIA W/GRAM STAIN SEE NOTE NRG CULTURE, AEROBIC BACTERIA SEE NOTE NRG Gram stain microscopy - 05/22/19 17:42 Gram stain microscopy Many Gram Negative Bacilli NRG Bacteria identification in wound by cult ure - 05/22/19 17:42 Bacteria identification in wound by culture [id number] NRG FREE TEXT EXTERNAL SEE COMMENT NRG QUANTITY OF GROWTH FEW NRG FREE TEXT ENTRY 2 PRELIM RAPID ID TEST AT [facility] 05/23 08:06 NRG FREE TEXT ENTRY 3 RML CONFIRMED ID 16:05 NRG Blood lactic acid measurement (moles/vol ume) - 05/22/19 18:03 Blood lactic acid measurement (moles/volume) 1.13 mmol/L 0.50-2.00 Complete blood count (CBC) with automate d white blood cell (WBC) differential - 05/22/19 18:03 Blood leukocytes automated count (number/volume) 7.5 10*3/uL 4.3-11.0 Blood erythrocytes automated count (number/volume) 4.80 10*6/uL 4.35-5.85 Venous blood hemoglobin measurement (mass/volume) 10.8 g/dL 11.5-16.0 Blood hematocrit (volume fraction) 37 % 35-52 Automated erythrocyte mean corpuscular volume 76 [ foz_us] 80-99 Automated erythrocyte mean corpuscular h emoglobin (mass per erythrocyte) 23 pg 25-34 Automated erythrocyte mean corpuscular h emoglobin concentration measurement (mass/volume) 30 g/dL 32-36 Automated erythrocyte distribution width ratio 20. 2 % 10.0- 14.5 Automated blood platelet count (count/volume) 285 10*3/uL 130-400 Automated blood platelet mean volume measurement 10.5 [foz_us] 7.4-10.4 Automated blood neutrophils/100 leukocytes 56 % 42-75 Automated blood lymphocytes/100 leukocytes 27 % 12-44 Blood monocytes/100 leukocytes 13 % 0-12 Automated blood eosinophils/100 leukocytes 3 % 0-10 Automated blood basophils/100 leukocytes 1 % 0-10 Blood neutrophils automated count (number/volume) 4.2 10*3 1.8-7.8 Blood lymphocytes automated count (number/volume) 2.0 10*3 1.0-4.0 Blood monocytes automated count (number/volume) 1. 0 10*3 0.0-1.0 Automated eosinophil count 0.2 10*3/uL 0 .0-0.3 Automated blood basophil count (count/volume) 0.1 10*3/uL 0.0-0.1 Comprehensive metabolic panel - 05/22/19 18:03 Serum or plasma sodium measurement (moles/volume) 140 mmol/L 135-145 Serum or plasma potassium measurement (moles/volume) 3.9 mmol/L 3.6-5.0 Serum or plasma chloride measurement (moles/volume) 106 mmol/L 98-107 Carbon dioxide 22 mmol/L 21-32 Serum or plasma anion gap determination (moles/volume) 12 mmol/L 5-14 Serum or plasma urea nitrogen measurement (mass/volume ) 4 mg/dL 7-18 Serum or plasma creatinine measurement (mass/volume) 0.70 mg/dL 0.60-1.30 Serum or plasma urea nitrogen/creatinine mass ratio 6 NRG Serum or plasma creatinine measurement w ith calculation of estimated glomerular filtration rate > NRG Serum or plasma glucose measurement (mass/volume) 102 mg/dL 70-105 Serum or plasma calcium measurement (mass/volume) 8.8 mg/dL 8.5-10.1 Serum or plasma total bilirubin measurement (mass/volu me) 0.2 mg/dL 0.1-1.0 Serum or plasma alkaline phosphatase talon surement (enzymatic activity/volume) 142 U/L 40-136 Serum or plasma aspartate aminotransfera se measurement (enzymatic activity/volume) 21 U/L 5-34 Serum or plasma alanine aminotransferase measurement (enzymatic activity/volume) 13 U/L 0-55 Serum or plasma protein measurement (mass/volume) 7.3 g/dL 6.4-8.2 Serum or plasma albumin measurement (mass/volume) 3.5 g/dL 3.2-4.5 CALCIUM CORRECTED 9.2 mg/dL 8.5-10.1 Serum or plasma C reactive protein measu rement (mass/volume) - 05/22/19 18:03 Serum or plasma C reactive protein measurement (mass/v olume) 1.36 mg/dL 0.00-0.50 Bacterial blood culture - 05/22/19 18:03 Bacterial blood culture NG NRG Complete urinalysis with reflex to cultu re - 05/22/19 18:15 Urine color determination YELLOW NRG Urine clarity determination CLEAR NR G Urine pH measurement by test strip 6.5 5-9 Specific gravity of urine by test strip <= 1.016-1.022 Urine protein assay by test strip, semi-quantitative NEGATIVE NEGATIVE Urine glucose detection by automated test strip NE GATIVE NEGATIVE Erythrocytes detection in urine sediment by light micr oscopy NEGATIVE NEGATIVE Urine ketones detection by automated test strip NE GATIVE NEGATIVE Urine nitrite detection by test strip NEGATIVE NEGATIVE Urine total bilirubin detection by test strip NEGA TIVE NEGATIVE Urine urobilinogen measurement by automated test strip (mass/volume) 0.2 mg/dL < = 1.0 Urine leukocyte esterase detection by dipstick NEG ATIVE NEGATIVE Automated urine sediment erythrocyte cou nt by microscopy (number/high power field) NONE NRG Automated urine sediment leukocyte count by microscopy (number/high power field) NONE NRG Bacteria detection in urine sediment by light microsco py TRACE NRG Squamous epithelial cells detection in u rine sediment by light microscopy 2-5 NRG Crystals detection in urine sediment by light microsco py NONE NRG Casts detection in urine sediment by light microscopy NONE NRG Mucus detection in urine sediment by light microscopy NEGATIVE NRG Complete urinalysis with reflex to culture NO NRG Urine drug screening test - 05/22/19 18: 15 Urine phencyclidine detection by screening method NEGATIVE NEGATIVE Urine benzodiazepines detection by screening method NEGATIVE NEGATIVE Urine cocaine detection NEGATIVE NEGATI VE Urine amphetamines detection by screening method N EGATIVE NEGATIVE Urine methamphetamine detection by screening method NEGATIVE NEGATIVE Urine cannabinoids detection by screening method N EGATIVE NEGATIVE Urine opiates detection by screening method POSITI VE NEGATIVE Urine barbiturates detection NEGATIVE N EGATIVE Screening urine tricyclic antidepressants detection POSITIVE NEGATIVE Urine methadone detection by screening method NEGA TIVE NEGATIVE Urine oxycodone detection NEGATIVE NEGA TIVE Urine propoxyphene detection NEGATIVE N EGATIVE Bacterial blood culture - 05/22/19 18:30 Bacterial blood culture NG NRG Complete blood count (CBC) with automate d white blood cell (WBC) differential - 05/23/19 04:15 Blood leukocytes automated count (number/volume) 5.4 10*3/uL 4.3-11.0 Blood erythrocytes automated count (number/volume) 4.63 10*6/uL 4.35-5.85 Venous blood hemoglobin measurement (mass/volume) 10.6 g/dL 11.5-16.0 Blood hematocrit (volume fraction) 36 % 35-52 Automated erythrocyte mean corpuscular volume 77 [ foz_us] 80-99 Automated erythrocyte mean corpuscular h emoglobin (mass per erythrocyte) 23 pg 25-34 Automated erythrocyte mean corpuscular h emoglobin concentration measurement (mass/volume) 30 g/dL 32-36 Automated erythrocyte distribution width ratio 20. 2 % 10.0- 14.5 Automated blood platelet count (count/volume) 260 10*3/uL 130-400 Automated blood platelet mean volume measurement 10.1 [foz_us] 7.4-10.4 Automated blood neutrophils/100 leukocytes 41 % 42-75 Automated blood lymphocytes/100 leukocytes 42 % 12-44 Blood monocytes/100 leukocytes 12 % 0-12 Automated blood eosinophils/100 leukocytes 3 % 0-10 Automated blood basophils/100 leukocytes 2 % 0-10 Blood neutrophils automated count (number/volume) 2.2 10*3 1.8-7.8 Blood lymphocytes automated count (number/volume) 2.3 10*3 1.0-4.0 Blood monocytes automated count (number/volume) 0. 7 10*3 0.0-1.0 Automated eosinophil count 0.2 10*3/uL 0 .0-0.3 Automated blood basophil count (count/volume) 0.1 10*3/uL 0.0-0.1 Comprehensive metabolic panel - 05/23/19 04:15 Serum or plasma sodium measurement (moles/volume) 144 mmol/L 135-145 Serum or plasma potassium measurement (moles/volume) 4.0 mmol/L 3.6-5.0 Serum or plasma chloride measurement (moles/volume) 109 mmol/L 98-107 Carbon dioxide 25 mmol/L 21-32 Serum or plasma anion gap determination (moles/volume) 10 mmol/L 5-14 Serum or plasma urea nitrogen measurement (mass/volume ) 4 mg/dL 7-18 Serum or plasma creatinine measurement (mass/volume) 0.75 mg/dL 0.60-1.30 Serum or plasma urea nitrogen/creatinine mass ratio 5 NRG Serum or plasma creatinine measurement w ith calculation of estimated glomerular filtration rate > NRG Serum or plasma glucose measurement (mass/volume) 91 mg/dL 70-105 Serum or plasma calcium measurement (mass/volume) 8.6 mg/dL 8.5-10.1 Serum or plasma total bilirubin measurement (mass/volu me) 0.2 mg/dL 0.1-1.0 Serum or plasma alkaline phosphatase talon surement (enzymatic activity/volume) 126 U/L 40-136 Serum or plasma aspartate aminotransfera se measurement (enzymatic activity/volume) 16 U/L 5-34 Serum or plasma alanine aminotransferase measurement (enzymatic activity/volume) 10 U/L 0-55 Serum or plasma protein measurement (mass/volume) 6.4 g/dL 6.4-8.2 Serum or plasma albumin measurement (mass/volume) 3.1 g/dL 3.2-4.5 CALCIUM CORRECTED 9.3 mg/dL 8.5-10.1 Bacteria identification in isolate by an aerobe culture - 05/23/19 10:14 FREE TEXT EXTERNAL WITH MIXED ANAEROBIC MIKE NRG QUANTITY OF GROWTH Many NRG Bacteria identification in isolate by anaerobe culture [id number] NRG FREE TEXT EXTERNAL 2 BETA LACTAMASE POSITIVE NRG FREE TEXT EXTERNAL 3 SEE COMMENTS NRG Gram stain microscopy - 05/23/19 10:14 Gram stain microscopy MIXED BACTERIAL MIKE NRG Bacteria identification in wound by cult ure - 05/23/19 10:14 Bacteria identification in wound by culture [id number] NRG FREE TEXT EXTERNAL SEE COMMENT NRG QUANTITY OF GROWTH Moderate Growth NRG FREE TEXT ENTRY 2 PRELIM RAPID ID TEST AT [facility] 05/24 10:20 NRG FREE TEXT ENTRY 3 ID CONFIRMED BY RML 05/25 15:05 NRG Dirithromycin susceptibility test by dis k diffusion - 05/23/19 10:14 Gentamicin susceptibility test by minimum inhibitory c oncentration <= NRG Trimethoprim/sulfamethoxazole susceptibi lity test by minimum inhibitoryconcentration <= NRG Levofloxacin susceptibility test by minimum inhibitory concentration <= NRG Ampicillin susceptibility test by minimum inhibitory c oncentration <= NRG Cefazolin susceptibility test by minimum inhibitory co ncentration 2 NRG Ceftriaxone susceptibility test by minimum inhibitory concentration <= NRG Piperacillin/tazobactam susceptibility t est by minimum inhibitory concentration <= NRG Ciprofloxacin susceptibility test by minimum inhibitor y concentration <= NRG Meropenem susceptibility test by minimum inhibitory co ncentration <= NRG Amoxicillin and clavulanate potassium susc ELLA <= NRG Imipenem susceptibility test by minimum inhibitory con centration <= NRG Automated blood complete blood count (he mogram) panel - 05/24/19 04:32 Blood leukocytes automated count (number/volume) 7.3 10*3/uL 4.3-11.0 Blood erythrocytes automated count (number/volume) 4.61 10*6/uL 4.35-5.85 Venous blood hemoglobin measurement (mass/volume) 10.3 g/dL 11.5-16.0 Blood hematocrit (volume fraction) 36 % 35-52 Automated erythrocyte mean corpuscular volume 78 [ foz_us] 80-99 Automated erythrocyte mean corpuscular h emoglobin (mass per erythrocyte) 22 pg 25-34 Automated erythrocyte mean corpuscular h emoglobin concentration measurement (mass/volume) 29 g/dL 32-36 Automated erythrocyte distribution width ratio 19. 6 % 10.0- 14.5 Automated blood platelet count (count/volume) 307 10*3/uL 130-400 Automated blood platelet mean volume measurement 10.6 [foz_us] 7.4-10.4 Whole blood basic metabolic panel - 02/02 04:32 Serum or plasma sodium measurement (moles/volume) 140 mmol/L 135-145 Serum or plasma potassium measurement (moles/volume) 4.3 mmol/L 3.6-5.0 Serum or plasma chloride measurement (moles/volume) 108 mmol/L 98-107 Carbon dioxide 23 mmol/L 21-32 Serum or plasma anion gap determination (moles/volume) 9 mmol/L 5-14 Serum or plasma urea nitrogen measurement (mass/volume ) 8 mg/dL 7-18 Serum or plasma creatinine measurement (mass/volume) 0.81 mg/dL 0.60-1.30 Serum or plasma urea nitrogen/creatinine mass ratio 10 NRG Serum or plasma creatinine measurement w ith calculation of estimated glomerular filtration rate > NRG Serum or plasma glucose measurement (mass/volume) 107 mg/dL 70-105 Serum or plasma calcium measurement (mass/volume) 8.6 mg/dL 8.5-10.1 Methicillin resistant Staphylococcus aur eus (MRSA) screening culture - 06/19/19 10:15 Methicillin resistant Staphylococcus aureus (MRSA) scr eening culture NEG NRG Bacteria identification in isolate by an aerobe culture - 06/19/19 11:35 FREE TEXT EXTERNAL RML REPORTED ID 06/23 06:05 NRG QUANTITY OF GROWTH Many NRG Bacteria identification in isolate by anaerobe culture [id number] NRG FREE TEXT EXTERNAL 2 SEE COMMENT NRG Gram stain microscopy - 06/19/19 11:35 Gram stain microscopy Mixed Bacterial mike NRG Bacteria identification in wound by cult ure - 06/19/19 11:35 Bacteria identification in wound by culture SEE CO MMEN NRG FREE TEXT EXTERNAL ENTEROCOCCUS SPECIES REPORTED F ROM NRG QUANTITY OF GROWTH . NRG FREE TEXT ENTRY 2 PRELIM RAPID ID TEST AT [facility] 06/21 10:00 NRG FREE TEXT ENTRY 3 RML CONFIRMED ID 06/21 12:05 NRG CALL POSITIVES (F1 HELP) (MARTHA/BEBO) 06/20/19 11 :45 BY Maya GATICA NRG PBP2 CALLED AND FAXED TO DR MOHAN'S OFFICE NRG Complete blood count (CBC) with automate d white blood cell (WBC) differential - 07/22/19 03:53 Blood leukocytes automated count (number/volume) 2.2 10*3/uL 4.3-11.0 Blood erythrocytes automated count (number/volume) 5.33 10*6/uL 4.35-5.85 Venous blood hemoglobin measurement (mass/volume) 11.5 g/dL 11.5-16.0 Blood hematocrit (volume fraction) 40 % 35-52 Automated erythrocyte mean corpuscular volume 75 [ foz_us] 80-99 Automated erythrocyte mean corpuscular h emoglobin (mass per erythrocyte) 22 pg 25-34 Automated erythrocyte mean corpuscular h emoglobin concentration measurement (mass/volume) 29 g/dL 32-36 Automated erythrocyte distribution width ratio 19. 2 % 10.0- 14.5 Automated blood platelet count (count/volume) 241 10*3/uL 130-400 Automated blood platelet mean volume measurement 9.7 [foz_us] 7.4-10.4 Automated blood neutrophils/100 leukocytes 77 % 42-75 Automated blood lymphocytes/100 leukocytes 21 % 12-44 Blood monocytes/100 leukocytes 1 % 0-12 Automated blood eosinophils/100 leukocytes 1 % 0-10 Automated blood basophils/100 leukocytes 1 % 0-10 Blood neutrophils automated count (number/volume) 1.7 10*3 1.8-7.8 Blood lymphocytes automated count (number/volume) 0.5 10*3 1.0-4.0 Blood monocytes automated count (number/volume) 0. 0 10*3 0.0-1.0 Automated eosinophil count 0.0 10*3/uL 0 .0-0.3 Automated blood basophil count (count/volume) 0.0 10*3/uL 0.0-0.1 Comprehensive metabolic panel - 07/22/19 03:53 Serum or plasma sodium measurement (moles/volume) 138 mmol/L 135-145 Serum or plasma potassium measurement (moles/volume) 3.9 mmol/L 3.6-5.0 Serum or plasma chloride measurement (moles/volume) 102 mmol/L 98-107 Carbon dioxide 21 mmol/L 21-32 Serum or plasma anion gap determination (moles/volume) 15 mmol/L 5-14 Serum or plasma urea nitrogen measurement (mass/volume ) 12 mg/dL 7-18 Serum or plasma creatinine measurement (mass/volume) 1.07 mg/dL 0.60-1.30 Serum or plasma urea nitrogen/creatinine mass ratio 11 NRG Serum or plasma creatinine measurement w ith calculation of estimated glomerular filtration rate 55 NRG Serum or plasma glucose measurement (mass/volume) 106 mg/dL 70-105 Serum or plasma calcium measurement (mass/volume) 9.4 mg/dL 8.5-10.1 Serum or plasma total bilirubin measurement (mass/volu me) 0.7 mg/dL 0.1-1.0 Serum or plasma alkaline phosphatase talon surement (enzymatic activity/volume) 157 U/L 40-136 Serum or plasma aspartate aminotransfera se measurement (enzymatic activity/volume) 81 U/L 5-34 Serum or plasma alanine aminotransferase measurement (enzymatic activity/volume) 25 U/L 0-55 Serum or plasma protein measurement (mass/volume) 7.4 g/dL 6.4-8.2 Serum or plasma albumin measurement (mass/volume) 3.6 g/dL 3.2-4.5 CALCIUM CORRECTED 9.7 mg/dL 8.5-10.1 Magnesium - 07/22/19 03:53 Magnesium 1.4 mg/dL 1.6-2.4 Serum or plasma troponin i.cardiac measu rement (mass/volume) - 07/22/19 03:53 Serum or plasma troponin i.cardiac measurement (mass/v olume) < ng/mL <0.028 Serum or plasma lithium measurement (mol es/volume) - 07/22/19 03:53 BNP PT < 10.0 <100.0 Myoglobin, serum - 07/22/19 03:53 Myoglobin, serum 22.4 ng/mL 10.0-92.0 Lipase - 07/22/19 03:53 Lipase 46 U/L 8-78 PT panel in platelet poor plasma by coag ulation assay - 07/22/19 03:53 Prothrombin time (PT) in platelet poor plasma by coagu lation assay 16.5 s 12.2-14.7 INR in platelet poor plasma or blood by coagulation as say 1.3 0.8-1.4 Activated partial thromboplastin time (a PTT) in platelet poor plasma bycoagulation assay - 07/22/19 03:53 Activated partial thromboplastin time (a PTT) in platelet poor plasma bycoagulation assay 30 s 24-35 Fibrin D-dimer FEU measurement in platel et poor plasma (mass/volume) - 07/22/19 03:53 Fibrin D-dimer FEU measurement in platelet poor plasma (mass/volume) > ug/mL 0.00-0.49 Urine drug screening test - 07/22/19 08: 32 Urine phencyclidine detection by screening method NEGATIVE NEGATIVE Urine benzodiazepines detection by screening method NEGATIVE NEGATIVE Urine cocaine detection NEGATIVE NEGATI VE Urine amphetamines detection by screening method N EGATIVE NEGATIVE Urine methamphetamine detection by screening method NEGATIVE NEGATIVE Urine cannabinoids detection by screening method N EGATIVE NEGATIVE Urine opiates detection by screening method POSITI VE NEGATIVE Urine barbiturates detection NEGATIVE N EGATIVE Screening urine tricyclic antidepressants detection POSITIVE NEGATIVE Urine methadone detection by screening method NEGA TIVE NEGATIVE Urine oxycodone detection NEGATIVE NEGA TIVE Urine propoxyphene detection NEGATIVE N EGATIVE Complete urinalysis with reflex to cultu re - 07/22/19 08:32 Urine color determination YELLOW NRG Urine clarity determination SL CLOUDY N RG Urine pH measurement by test strip 5.5 5-9 Specific gravity of urine by test strip <= 1.016-1.022 Urine protein assay by test strip, semi-quantitative NEGATIVE NEGATIVE Urine glucose detection by automated test strip NE GATIVE NEGATIVE Erythrocytes detection in urine sediment by light micr oscopy NEGATIVE NEGATIVE Urine ketones detection by automated test strip NE GATIVE NEGATIVE Urine nitrite detection by test strip NEGATIVE NEGATIVE Urine total bilirubin detection by test strip NEGA TIVE NEGATIVE Urine urobilinogen measurement by automated test strip (mass/volume) 0.2 mg/dL < = 1.0 Urine leukocyte esterase detection by dipstick NEG ATIVE NEGATIVE Automated urine sediment erythrocyte cou nt by microscopy (number/high power field) NONE NRG Automated urine sediment leukocyte count by microscopy (number/high power field) NONE NRG Bacteria detection in urine sediment by light microsco py MODERATE NRG Squamous epithelial cells detection in u rine sediment by light microscopy 0-2 NRG Crystals detection in urine sediment by light microsco py NONE NRG Casts detection in urine sediment by light microscopy NONE NRG Mucus detection in urine sediment by light microscopy NEGATIVE NRG Complete urinalysis with reflex to culture NO NRG Blood lactic acid measurement (moles/vol ume) - 07/22/19 09:04 Blood lactic acid measurement (moles/volume) 3.81 mmol/L 0.50-2.00 PROCALCITONIN (PCT) - 07/22/19 09:04 PROCALCITONIN (PCT) 56.15 ng/mL <0.10 Serum or plasma troponin i.cardiac measu rement (mass/volume) - 07/22/19 09:04 Serum or plasma troponin i.cardiac measurement (mass/v olume) < ng/mL <0.028 Capillary blood glucose measurement by g lucometer (mass/volume) - 07/22/19 11:44 Capillary blood glucose measurement by glucometer (mas s/volume) 114 mg/dL 70-110 Serum or plasma lactate measurement (mol es/volume) - 07/22/19 11:45 Serum or plasma lactate measurement (moles/volume) 4.47 mmol/L 0.50-2.00 Arterial blood gas measurement - 0 13:55 Blood pCO2 49 mm[Hg] 35-45 Blood pO2 50 mm[Hg] 79-93 Arterial blood bicarbonate measurement (moles/volume) 21 mmol/L 23-27 Arterial blood base excess by calculation -4.8 mmo l/L -2.5-2.5 Arterial blood oxygen saturation measurement 83 % 94-100 * Inhaled oxygen flow rate 3 NRG Arterial blood pH measurement with patient temperature correction 7.26 7.37-7.43 Arterial blood carbon dioxide, total measurement (mole s/volume) 22.7 mmol/L 21.0-31.0 Body site RIGHT WR NRG Assessment of wrist artery patency prior to arterial p uncture YES-POS NRG Setting of ventilation mode NO NR G Measurement of body temperature 36.5 NRG Bacterial blood culture - 07/22/19 14:15 Bacterial blood culture NG NRG Serum or plasma lactate measurement (mol es/volume) - 07/22/19 14:40 Serum or plasma lactate measurement (moles/volume) 3.16 mmol/L 0.50-2.00 Bacterial blood culture - 07/22/19 14:40 Bacterial blood culture NG NRG Serum or plasma troponin i.cardiac measu rement (mass/volume) - 07/22/19 16:20 Serum or plasma troponin i.cardiac measurement (mass/v olume) 0.107 ng/mL <0.028 Serum or plasma lactate measurement (mol es/volume) - 07/22/19 16:50 Serum or plasma lactate measurement (moles/volume) 2.47 mmol/L 0.50-2.00 Capillary blood glucose measurement by g lucometer (mass/volume) - 07/22/19 17:35 Capillary blood glucose measurement by glucometer (mas s/volume) 120 mg/dL 70-110 Arterial blood gas measurement - 0 17:50 Blood pCO2 45 mm[Hg] 35-45 Blood pO2 118 mm[Hg] 79-93 Arterial blood

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
--- OUTSIDE RECORDS SUMMARY | 2019-07-25 07:58 | XMS REPORT | Continuity of Care Document ---
[...] Drug Allergy N/A N/A 01/22/2014 Yes morphine [id number] Drug Allergy Mild RASH 07/01/2017 Yes Penicillins [id number] Drug Aller gy Mild N/A 07/01/2017 Yes oxycodone [id number] Drug Allergy Unknown N/A 07/01/[id number] ug Allergy Mild N/A 07/22/2019 Yes Penicillins [id number] Drug Aller gy Mild Has had Ancef w 07/22/2019 Yes prochlorperazine [id number] Drug Allergy Mild N/A 07/22/2019 Medications There [...] A dj D/o Nos 12/15/2007 YOUNG , BAER K 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 12/15/2007 YOUNG DO, BAER K 309.9 Ad Adj D/o Nos 12/15/2007 GARCIA ELECTRICAL SIGN WIRER HELPER, PAU R 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 12/15/2007 JOSE ELECTRICAL SIGN WIRER HELPER, PAU R 309.9 Ad Adj D/o Nos [...] APRN 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 12/15/2007 RANJAN ELECTRICAL SIGN WIRER HELPER, NENO S 309.9 Ad Adj D/o Nos 12/15/2007 DOUGLAS LEAL MD 307.4 7 Si Dyssomnia Nos 12/15/2007 DOUGLAS LEAL MD 309.9 Ad Adj D/o Nos 12/15/2007 OMAR ADORNO APRN T 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 12/15/2007 OMAR ADORNO APRN T 30 9.9 Ad Adj D/o Nos 12/15/2007 RANJAN ELECTRICAL SIGN WIRER HELPER, NENO S 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 12/15/2007 RANJAN ELECTRICAL SIGN WIRER HELPER, NENO S 309.9 Ad Adj D/o Nos 12/15/2007 OMAR ADORNO APRN T 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 12/15/2007 OMAR ADORNO APRN T 30 9.9 Ad Adj D/o Nos 12/15/2007 DOUGLAS LEAL MD 307.4 7 Si Dyssomnia Nos 12/15/2007 DOUGLAS LEAL MD 309.9 Ad Adj D/o Nos 12/15/2007 BENI YLNCH, AREN B 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 12/15/2007 BENI LYNCH, AREN B 30 9.9 Ad Adj D/o Nos 12/15/2007 RANJAN ELECTRICAL SIGN WIRER HELPER, NENO S 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 12/15/2007 RANJAN ELECTRICAL SIGN WIRER HELPER, NENO S 309.9 Ad Adj D/o Nos 12/15/2007 BRENDA PHD, KAREN Quinn 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 12/15/2007 BRENDA PHD, KAREN Quinn 309.9 Ad Adj D/o Nos 12/15/2007 BRENDA PHD, KAREN Quinn 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 12/15/2007 BRENDA PHD, KAREN Quinn 309.9 Ad Adj D/o Nos 12/15/2007 RANJAN ELECTRICAL SIGN WIRER HELPER, NENO S 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 12/15/2007 RANJAN ELECTRICAL SIGN WIRER HELPER, NENO S 309.9 Ad Adj D/o Nos 12/15/2007 RANJAN ELECTRICAL SIGN WIRER HELPER, NENO S 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 12/15/2007 RANJAN ELECTRICAL SIGN WIRER HELPER, NENO S 309.9 Ad Adj D/o Nos 12/15/2007 DALY CASHERO ELECTRICAL SIGN WIRER HELPER, ROBERTO N 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 12/15/2007 MALIKA NUNNERO ELECTRICAL SIGN WIRER HELPER, ROBERTO N 309.9 Ad Adj D/o Nos 12/15/2007 RANJAN ELECTRICAL SIGN WIRER HELPER, NENO S 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 12/15/2007 RANJAN ELECTRICAL SIGN WIRER HELPER, NENO S 309.9 Ad Adj D/o Nos 12/15/2007 BRENDA PABLO, KAREN Quinn 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 12/15/2007 BRENDA PABLO, KAREN Quinn 309.9 Ad Adj D/o Nos 12/15/2007 MARIAN ELECTRICAL SIGN WIRER HELPER, PRIETO R 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 12/15/2007 MARIAN ELECTRICAL SIGN WIRER HELPER, PRIETO R 309.9 Ad Adj D/o Nos 12/15/2007 DOUGLAS LEAL MD 307.4 7 Si Dyssomnia Nos 12/15/2007 DOUGLAS LEAL MD 309.9 Ad Adj D/o Nos 12/15/2007 BRENDA PABLO, KAREN Quinn 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 12/15/2007 BRENDA PABLO, KAREN Quinn 309.9 Ad Adj D/o Nos 12/15/2007 DIONNA ELECTRICAL SIGN WIRER HELPER, LAURIE 307 .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 12/15/2007 DIONNA ELECTRICAL SIGN WIRER HELPER, LAURIE 309 .9 Ad Adj D/o Nos 12/15/2007 RANJAN ELECTRICAL SIGN WIRER HELPER, NENO S 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 12/15/2007 RANJAN ELECTRICAL SIGN WIRER HELPER, NENO S 309.9 Ad Adj D/o Nos 12/15/2007 DIONNA ELECTRICAL SIGN WIRER HELPER, LAURIE 307 .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 12/15/2007 DIONNA ELECTRICAL SIGN WIRER HELPER, LAURIE 309 .9 Ad Adj D/o Nos 12/15/2007 DIONNA ELECTRICAL SIGN WIRER HELPER, LAURIE 307 .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 12/15/2007 DIONNA ELECTRICAL SIGN WIRER HELPER, LAURIE 309 .9 Ad Adj D/o Nos 12/15/2007 DIONNA ELECTRICAL SIGN WIRER HELPER, LAURIE 307 .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 12/15/2007 DIONNA ELECTRICAL SIGN WIRER HELPER, LAURIE 309 .9 Ad Adj D/o Nos 12/15/2007 OMAR ADORNO APRN 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 12/15/2007 OMAR ADORNO APRN 30 9.9 Ad Adj D/o Nos 12/15/2007 DIONNA ELECTRICAL SIGN WIRER HELPER, LAURIE 307 .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 12/15/2007 DIONNA ELECTRICAL SIGN WIRER HELPER, LAURIE 309 .9 Ad Adj D/o Nos [...] 9.9 Ad Adj D/o Nos 12/15/2007 DIONNA ELECTRICAL SIGN WIRER HELPER, LAURIE 307 .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 12/15/2007 DIONNA ELECTRICAL SIGN WIRER HELPER, LAURIE 309 .9 Ad Adj D/o Nos 12/15/2007 BEAR YOUNG DO K 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 12/15/2007 BEAR YOUNG DO K 309.9 Ad Adj D/o Nos 12/15/2007 MARIAN ELECTRICAL SIGN WIRER HELPER, PRIETO R 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 12/15/2007 MARIAN ELECTRICAL SIGN WIRER HELPER, PRIETO R 309.9 Ad Adj D/o Nos 12/15/2007 DIONNA ELECTRICAL SIGN WIRER HELPER, LAURIE 307 .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 12/15/2007 DIONNA ELECTRICAL SIGN WIRER HELPER, LAURIE 309 .9 Ad Adj D/o Nos 12/15/2007 MARIAN ELECTRICAL SIGN WIRER HELPER, PRIETO R 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 12/15/2007 MARIAN ELECTRICAL SIGN WIRER HELPER, PRIETO R 309.9 Ad Adj D/o Nos 12/15/2007 MARIAN ELECTRICAL SIGN WIRER HELPER, PRIETO R 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 12/15/2007 MARIAN ELECTRICAL SIGN WIRER HELPER, PRIETO R 309.9 Ad Adj D/o Nos [...] DOUGLAS LEAL MD 682.9 Cellulitis 01/02/2008 BENI GEOTHERMAL POWERPLANT MECHANIC HELPER, AREN B 68 2.9 Cellulitis 01/02/2008 YUKI WOODRUFF APRNA S 682.9 Cellulitis 01/02/2008 BRENDA PHD, KAREN Quinn 682.9 Cellulitis 01/02/2008 BRENDA PHD, KAREN Quinn 682.9 Cellulitis 01/02/2008 YUKI WOODRUFF APRNA S 682.9 Cellulitis 01/02/2008 KATIE WOODRUFF APRNNDA S 682.9 Cellulitis 01/02/2008 ROBERTO YATES APRN 682.9 Cellulitis 01/02/2008 KATIE WOODRUFF APRNNDA S 682.9 Cellulitis 01/02/2008 BRENDA PHD, KAREN Quinn 682.9 Cellulitis 01/02/2008 MARIAN ELECTRICAL SIGN WIRER HELPER, PRIETO R 682.9 Cellulitis 01/02/2008 DOUGLAS LEAL MD 682.9 Cellulitis 01/02/2008 BRENDA PHD, KAREN Quinn 682.9 Cellulitis 01/02/2008 DIONNA ELECTRICAL SIGN WIRER HELPER, LAURIE 682 .9 Cellulitis 01/02/2008 RANJAN ELECTRICAL SIGN WIRER HELPER, NENO S 682.9 Cellulitis 01/02/2008 DIONNA ELECTRICAL SIGN WIRER HELPER, LAURIE 682 .9 Cellulitis 01/02/2008 DIONNA ELECTRICAL SIGN WIRER HELPER, LAURIE 682 .9 Cellulitis 01/02/2008 DIONNA ELECTRICAL SIGN WIRER HELPER, LAURIE 682 .9 Cellulitis 01/02/2008 OMAR ADORNO APRN 68 2.9 Cellulitis 01/02/2008 DIONNA ELECTRICAL SIGN WIRER HELPER, LAURIE 682 .9 Cellulitis 01/02/2008 ROSHAN LUCERO, KAITLIN Cortez 68 2.9 Cellulitis 01/02/2008 ESPINOZAJULI JAEGER DDS 68 2.9 Cellulitis 01/02/2008 ESPINOZAJULI CROSS DDS 68 2.9 Cellulitis 01/02/2008 DIONNA ELECTRICAL SIGN WIRER HELPER, LAURIE 682 .9 Cellulitis 01/02/2008 BEAR YOUNG DO K 682.9 Cellulitis 01/02/2008 MARIAN ELECTRICAL SIGN WIRER HELPER, PRIETO R 682.9 Cellulitis 01/02/2008 DIONNA ELECTRICAL SIGN WIRER HELPER, LAURIE 682 .9 Cellulitis 01/02/2008 MARIAN ELECTRICAL SIGN WIRER HELPER, PRIETO R 682.9 Cellulitis 01/02/2008 MARIAN ELECTRICAL SIGN WIRER HELPER, PRIETO R 682.9 Cellulitis 01/02/2008 DOUGLAS LEAL [...] GARCIA APRN R 301.83 PD BORDERLINE 01/03/2008 PAU GARCIA APRN R 309.0 Ad Adj D/o [...] A dj D/o W Depressed 01/03/2008 RANJAN ELECTRICAL SIGN WIRER HELPER, NENO S 300.00 An Anxiety Unspec 01/03/2008 [...] Ad Adj D/o W Depressed 01/03/2008 OMAR AODRNO APRN 300.00 An Anxiety Unspec 01/03/2008 OMAR [...] N 301.83 PD BORDERLINE 01/03/2008 DALY EDOUARDDIAMOND ELECTRICAL SIGN WIRER HELPER, ROBERTO N 309.0 Ad Adj D/o W [...] JULI 301.83 PD BORDERLINE 01/03/2008 ESPINOZA DDS, JUIL 30 9.0 Ad Adj D/o W Depressed [...] 620.0 Follicular Cyst Of Ovary 02/22/2008 RANJAN ELECTRICAL SIGN WIRER HELPER, NENO S 620.0 Follicular Cyst Of Ovary 02/22/2008 RANJANELOISA MURILLON, NENO S 620.0 Follicular Cyst Of Ovary 02/22/2008 MALIKA GUILLEN ELECTRICAL SIGN WIRER HELPER, ROBERTO N 620.0 Follicular Cyst Of Ovary 02/22/2008 RANJAN MURILLON, NENO S 620.0 Follicular Cyst Of Ovary 02/22/2008 BRENDA PHD, KAREN Quinn 620.0 Follicular Cyst Of Ovary 02/22/2008 MARIAN ELECTRICAL SIGN WIRER HELPER, PRIETO R 620.0 Follicular Cyst Of Ovary 02/22/2008 DOUGLAS LEAL MD 620.0 Follicular Cyst Of Ovary 02/22/2008 BRENDA PHD, KAREN Quinn 620.0 Follicular Cyst Of Ovary 02/22/2008 DIONNA ELECTRICAL SIGN WIRER HELPER, LAURIE 620 .0 Follicular Cyst Of Ovary 02/22/2008 RANJAN FRAGOSO, NENO S 620.0 Follicular Cyst Of Ovary 02/22/2008 DIONNA ELECTRICAL SIGN WIRER HELPER, LAURIE 620 .0 Follicular Cyst Of Ovary 02/22/2008 DIONNA ELECTRICAL SIGN WIRER HELPER, LAURIE 620 .0 Follicular Cyst Of Ovary 02/22/2008 DIONNA ELECTRICAL SIGN WIRER HELPER, LAURIE 620 .0 Follicular Cyst Of Ovary 02/22/2008 OMAR ADORNO APRN 62 0.0 Follicular Cyst Of Ovary 02/22/2008 DIONNA ELECTRICAL SIGN WIRER HELPER, LAURIE 620 .0 Follicular Cyst Of Ovary 02/22/2008 ROSHAN GILLESPIES, KAITLIN Cortez 62 0.0 Follicular Cyst Of Ovary 02/22/2008 JULI ESPINOZA DDS 62 0.0 Follicular Cyst Of Ovary 02/22/2008 OLGA GILLESPIESJULI 62 0.0 Follicular Cyst Of Ovary 02/22/2008 DIONNA ELECTRICAL SIGN WIRER HELPER, LAURIE 620 .0 Follicular Cyst Of Ovary 02/22/2008 BEAR YOUNG DO 620.0 Follicular Cyst Of Ovary 02/22/2008 MARIAN ELECTRICAL SIGN WIRER HELPER, PRIETO R 620.0 Follicular Cyst Of Ovary 02/22/2008 DIONNA ELECTRICAL SIGN WIRER HELPER, LAURIE 620 .0 Follicular Cyst Of Ovary 02/22/2008 MARIAN ELECTRICAL SIGN WIRER HELPER, PRIETO R 620.0 Follicular Cyst Of Ovary 02/22/2008 MARIAN ELECTRICAL SIGN WIRER HELPER, PRIETO R 620.0 Follicular Cyst Of Ovary [...] COFFMAN BEAR K 466.0 Acute Bronchitis 07/05/2008 PAU GARCIA APRN R 462 Acute Pharyngitis 07/05/2008 [...] JOYCE, DOUGLAS 466.0 Acute Bronchitis 07/05/2008 TILA ELECTRICAL SIGN WIRER HELPER, OMAR T 46 2 Acute Pharyngitis 07/05/2008 TILA ELECTRICAL SIGN WIRER HELPER, OMAR T 46 6.0 Acute Bronchitis 07/05/2008 RANJAN ELECTRICAL SIGN WIRER HELPER, NENO S 462 Acute Pharyngitis 07/05/2008 RANJAN ELECTRICAL SIGN WIRER HELPER, NENO S 466.0 Acute Bronchitis 07/05/2008 TILA ELECTRICAL SIGN WIRER HELPER, OMAR T 46 2 Acute Pharyngitis 07/05/2008 TILA ELECTRICAL SIGN WIRER HELPER, OMAR T 46 6.0 Acute Bronchitis 07/05/2008 DOUGLAS LEAL MD 462 Acute Pharyngitis 07/05/2008 DOUGLAS LEAL MD 466.0 Acute Bronchitis 07/05/2008 BENI GEOTHERMAL POWERPLANT MECHANIC HELPER, AREN B 46 2 Acute Pharyngitis 07/05/2008 BENI GEOTHERMAL POWERPLANT MECHANIC HELPER, AREN B 46 6.0 Acute Bronchitis 07/05/2008 RANJAN ELECTRICAL SIGN WIRER HELPER, NENO S 462 Acute Pharyngitis 07/05/2008 RANJAN ELECTRICAL SIGN WIRER HELPER, NENO S 466.0 Acute Bronchitis 07/05/2008 BRENDA PHD, KAREN Quinn 462 Acute Pharyngitis 07/05/2008 BRENDA PHD, KAREN Quinn 466.0 Acute Bronchitis 07/05/2008 BRENDA PHD, KAREN Quinn 462 Acute Pharyngitis 07/05/2008 BRENDA PHD, KAREN Quinn 466.0 Acute Bronchitis 07/05/2008 RANJAN ELECTRICAL SIGN WIRER HELPER, NENO S 462 Acute Pharyngitis 07/05/2008 RANJAN ELECTRICAL SIGN WIRER HELPER, NENO S 466.0 Acute Bronchitis 07/05/2008 RANJAN ELECTRICAL SIGN WIRER HELPER, NENO S 462 Acute Pharyngitis 07/05/2008 RANJAN ELECTRICAL SIGN WIRER HELPER, NENO S 466.0 Acute Bronchitis 07/05/2008 DALY CASHERO ELECTRICAL SIGN WIRER HELPER, ROBERTO N 462 Acute Pharyngitis 07/05/2008 DALY CASHERO ELECTRICAL SIGN WIRER HELPER, ROBERTO N 466.0 Acute Bronchitis 07/05/2008 RANJAN ELECTRICAL SIGN WIRER HELPER, NENO S 462 Acute Pharyngitis 07/05/2008 RANJAN ELECTRICAL SIGN WIRER HELPER, NENO S 466.0 Acute Bronchitis 07/05/2008 BRENDA PABLO, KAREN Quinn 462 Acute Pharyngitis 07/05/2008 BRENDA PABLO, KAREN Quinn 466.0 Acute Bronchitis 07/05/2008 MARIAN ELECTRICAL SIGN WIRER HELPER, PRIETO R 4 62 Acute Pharyngitis 07/05/2008 MARIAN ELECTRICAL SIGN WIRER HELPER, PRIETO R 466.0 Acute Bronchitis 07/05/2008 DOUGLAS LEAL MD 462 Acute Pharyngitis 07/05/2008 DOUGLAS LEAL MD 466.0 Acute Bronchitis 07/05/2008 BRENDA PHD, KAREN Quinn 462 Acute Pharyngitis 07/05/2008 BRENDA PABLO, KAREN Quinn 466.0 Acute Bronchitis 07/05/2008 DIONNA ELECTRICAL SIGN WIRER HELPER, LAURIE 462 Acute Pharyngitis 07/05/2008 DIONNA ELECTRICAL SIGN WIRER HELPER, LAURIE 466 .0 Acute Bronchitis 07/05/2008 RANJAN ELECTRICAL SIGN WIRER HELPER, NENO S 462 Acute Pharyngitis 07/05/2008 RANJAN ELECTRICAL SIGN WIRER HELPER, NENO S 466.0 Acute Bronchitis 07/05/2008 DIONNA ELECTRICAL SIGN WIRER HELPER, LAURIE 462 Acute Pharyngitis 07/05/2008 DIONNA ELECTRICAL SIGN WIRER HELPER, LAURIE 466 .0 Acute Bronchitis 07/05/2008 DIONNA ELECTRICAL SIGN WIRER HELPER, LAURIE 462 Acute Pharyngitis 07/05/2008 DIONNA ELECTRICAL SIGN WIRER HELPER, LAURIE 466 .0 Acute Bronchitis 07/05/2008 DIONNA ELECTRICAL SIGN WIRER HELPER, LAURIE 462 Acute Pharyngitis 07/05/2008 DIONNA ELECTRICAL SIGN WIRER HELPER, LAURIE 466 .0 Acute Bronchitis 07/05/2008 OMAR ADORNO APRN 46 2 Acute Pharyngitis 07/05/2008 OMAR ADORNO APRN 46 6.0 Acute Bronchitis 07/05/2008 DIONNA ELECTRICAL SIGN WIRER HELPER, LAURIE 462 Acute Pharyngitis 07/05/2008 DIONNA ELECTRICAL SIGN WIRER HELPER, LAURIE 466 .0 Acute Bronchitis 07/05/2008 ROSHAN GILLESPIESKAITLIN J 46 2 Acute Pharyngitis 07/05/2008 WHITE DDS, KAITLIN J 46 6.0 Acute Bronchitis 07/05/2008 ESPINOZAJULI CROSS DDS 46 2 Acute Pharyngitis 07/05/2008 JULI ESPINOZA DDS 46 6.0 Acute Bronchitis 07/05/2008 ESPINOZAJULI JAEGER DDS 46 2 Acute Pharyngitis 07/05/2008 ESPINOZAJULI JAEGER DDS 46 6.0 Acute Bronchitis 07/05/2008 DIONNA ELECTRICAL SIGN WIRER HELPER, LAURIE 462 Acute Pharyngitis 07/05/2008 DIONNA ELECTRICAL SIGN WIRER HELPER, LAURIE 466 .0 Acute Bronchitis 07/05/2008 YOUNG DO BEAR K 462 Acute Pharyngitis 07/05/2008 YOUNG DO, BEAR K 466.0 Acute Bronchitis 07/05/2008 MARIAN ELECTRICAL SIGN WIRER HELPER, PRIETO R 4 62 Acute Pharyngitis 07/05/2008 MARIAN ELECTRICAL SIGN WIRER HELPER, PRIETO R 466.0 Acute Bronchitis 07/05/2008 DIONNA ELECTRICAL SIGN WIRER HELPER, LAURIE 462 Acute Pharyngitis 07/05/2008 DIONNA ELECTRICAL SIGN WIRER HELPER, LAURIE 466 .0 Acute Bronchitis 07/05/2008 MARIAN ELECTRICAL SIGN WIRER HELPER, PRIETO R 4 62 Acute Pharyngitis 07/05/2008 MARIAN ELECTRICAL SIGN WIRER HELPER, PRIETO R 466.0 Acute Bronchitis 07/05/2008 MARIAN ELECTRICAL SIGN WIRER HELPER, PRIETO R 4 62 Acute Pharyngitis 07/05/2008 MARIAN ELECTRICAL SIGN WIRER HELPER, PRIETO R 466.0 Acute Bronchitis 07/05/2008 DOUGLAS [...] DOUGLAS LEAL MD 786.2 COUGH 07/30/2008 BENI GEOTHERMAL POWERPLANT MECHANIC HELPER, AREN B 29 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 07/30/2008 BENI GEOTHERMAL POWERPLANT MECHANIC HELPER, AREN B 51 1.0 Pleurisy 07/30/2008 BENI GEOTHERMAL POWERPLANT MECHANIC HELPER, AREN B 78 6.2 COUGH 07/30/2008 KATIE [...] 29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 07/30/2008 RANJAN ELECTRICAL SIGN WIRER HELPER, NENO S 511.0 Pleurisy 07/30/2008 RANJAN ELECTRICAL SIGN WIRER HELPER, NENO S 786.2 COUGH 07/30/2008 RANJAN ELECTRICAL SIGN WIRER HELPER, NENO S 29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 07/30/2008 RANJAN ELECTRICAL SIGN WIRER HELPER, NENO S 511.0 Pleurisy 07/30/2008 RANJAN ELECTRICAL SIGN WIRER HELPER, NENO S 786.2 COUGH 07/30/2008 DALY CASHERO ELECTRICAL SIGN WIRER HELPER, ROBERTO N 29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 07/30/2008 DALY CASHERO ELECTRICAL SIGN WIRER HELPER, ROBERTO N 511.0 Pleurisy 07/30/2008 DALY CASHERO ELECTRICAL SIGN WIRER HELPER, ROBERTO N 786.2 COUGH 07/30/2008 RANJAN ELECTRICAL SIGN WIRER HELPER, NENO S 29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 07/30/2008 RANJAN ELECTRICAL SIGN WIRER HELPER, NENO S 511.0 Pleurisy 07/30/2008 RANJAN ELECTRICAL SIGN WIRER HELPER, NENO S 786.2 COUGH 07/30/2008 BRENDA PHD, KAREN Quinn 29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 07/30/2008 BRENDA PHD, KAREN Quinn 511.0 Pleurisy 07/30/2008 BRENDA PHD, KAREN Quinn 786.2 COUGH 07/30/2008 MARIAN ELECTRICAL SIGN WIRER HELPER, PRIETO R 29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 07/30/2008 MARIAN ELECTRICAL SIGN WIRER HELPER, PRIETO R 511.0 Pleurisy 07/30/2008 MARIAN ELECTRICAL SIGN WIRER HELPER, PRIETO R 786.2 COUGH 07/30/2008 DOUGLAS LEAL MD 29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 07/30/2008 DOUGLAS LEAL MD 511.0 Pleurisy 07/30/2008 DOUGLAS LEAL MD 786.2 COUGH 07/30/2008 BRENDA PHD, KAREN Quinn 29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 07/30/2008 BRENDA PHD, KAREN Quinn 511.0 Pleurisy 07/30/2008 BRENDA PHD, KAREN Quinn 786.2 COUGH 07/30/2008 DIONNA ELECTRICAL SIGN WIRER HELPER, LAURIE 292 .9 Unspecified Drug-induced Mental Disorder 07/30/2008 DIONNA ELECTRICAL SIGN WIRER HELPER, LAURIE 511 .0 Pleurisy 07/30/2008 DIONNA ELECTRICAL SIGN WIRER HELPER, LAURIE 786 .2 COUGH 07/30/2008 RANJAN ELECTRICAL SIGN WIRER HELPER, NENO S 29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 07/30/2008 RANJAN ELECTRICAL SIGN WIRER HELPER, NENO S 511.0 Pleurisy 07/30/2008 RANJAN MURILLON, NENO S 786.2 COUGH 07/30/2008 DIONNA ELECTRICAL SIGN WIRER HELPER, LAURIE 292 .9 Unspecified Drug-induced Mental Disorder 07/30/2008 DIONNA ELECTRICAL SIGN WIRER HELPER, LAURIE 511 .0 Pleurisy 07/30/2008 DIONNA ELECTRICAL SIGN WIRER HELPER, LAURIE 786 .2 COUGH 07/30/2008 DIONNA ELECTRICAL SIGN WIRER HELPER, LAURIE 292 .9 Unspecified Drug-induced Mental Disorder 07/30/2008 DIONNA ELECTRICAL SIGN WIRER HELPER, LAURIE 511 .0 Pleurisy 07/30/2008 DIONNA ELECTRICAL SIGN WIRER HELPER, LAURIE 786 .2 COUGH 07/30/2008 DIONNA ELECTRICAL SIGN WIRER HELPER, LAURIE 292 .9 Unspecified Drug-induced Mental Disorder 07/30/2008 DIONNA ELECTRICAL SIGN WIRER HELPER, LAURIE 511 .0 Pleurisy 07/30/2008 DIONNA ELECTRICAL SIGN WIRER HELPER, LAURIE 786 .2 COUGH 07/30/2008 OMAR ADORNO APRN 29 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 07/30/2008 OMAR ADORNO APRN 51 1.0 Pleurisy 07/30/2008 OMAR ADORNO APRN T 78 6.2 COUGH 07/30/2008 DIONNA ELECTRICAL SIGN WIRER HELPER, LAURIE 292 .9 Unspecified Drug-induced Mental Disorder 07/30/2008 DIONNA ELECTRICAL SIGN WIRER HELPER, LAURIE 511 .0 Pleurisy 07/30/2008 DIONNA ELECTRICAL SIGN WIRER HELPER, LAURIE 786 .2 COUGH 07/30/2008 WHITE DDS, [...] DDS, JULI 78 6.2 COUGH 07/30/2008 DIONNA ELECTRICAL SIGN WIRER HELPER, LAURIE 292 .9 Unspecified Drug-induced Mental Disorder 07/30/2008 DIONNA ELECTRICAL SIGN WIRER HELPER, LAURIE 511 .0 Pleurisy 07/30/2008 DIONNA ELECTRICAL SIGN WIRER HELPER, LAURIE 786 .2 COUGH 07/30/2008 YOUNG DO, BEAR K 29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 07/30/2008 YOUNG DO, BEAR K 511.0 Pleurisy 07/30/2008 YOUNG DO, BEAR K 786.2 COUGH 07/30/2008 MARIAN ELECTRICAL SIGN WIRER HELPER, PRIETO R 29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 07/30/2008 MARIAN ELECTRICAL SIGN WIRER HELPER, PRIETO R 511.0 Pleurisy 07/30/2008 MARIAN ELECTRICAL SIGN WIRER HELPER, PRIETO R 786.2 COUGH 07/30/2008 DIONNA ELECTRICAL SIGN WIRER HELPER, LAURIE 292 .9 Unspecified Drug-induced Mental Disorder 07/30/2008 DIONNA ELECTRICAL SIGN WIRER HELPER, LAURIE 511 .0 Pleurisy 07/30/2008 DIONNA ELECTRICAL SIGN WIRER HELPER, LAURIE 786 .2 COUGH 07/30/2008 MARIAN ELECTRICAL SIGN WIRER HELPER, PRIETO R 29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 07/30/2008 MARIAN ELECTRICAL SIGN WIRER HELPER, PRIETO R 511.0 Pleurisy 07/30/2008 MARIAN ELECTRICAL SIGN WIRER HELPER, PRIEOT R 786.2 COUGH 07/30/2008 MARIAN ELECTRICAL SIGN WIRER HELPER, PRIETO R 29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 07/30/2008 MARIAN ELECTRICAL SIGN WIRER HELPER, PRIETO R 511.0 Pleurisy 07/30/2008 MARIAN ELECTRICAL SIGN WIRER HELPER, PRIETO R 786.2 COUGH 07/30/2008 DOUGLAS LEAL [...] Fingers And Thum b 12/12/2008 MALIKA GUILLEN ELECTRICAL SIGN WIRER HELPER, ROBERTO N 682.4 Cellulitis And Abscess Of [...] Except Fingers And Thum b 12/12/2008 DIONNA ELECTRICAL SIGN WIRER HELPER, LAURIE 682 .4 Cellulitis And Abscess Of Hand Except Fingers And Thumb 12/12/2008 RANJAN MURILLON, NENO S 682.4 Cellulitis And Abscess Of Hand Except Fingers And Thum b 12/12/2008 DIONNA ELECTRICAL SIGN WIRER HELPER, LAURIE 682 .4 Cellulitis And Abscess Of Hand Except Fingers And Thumb 12/12/2008 DIONNA ELECTRICAL SIGN WIRER HELPER, LAURIE 682 .4 Cellulitis And Abscess Of Hand Except Fingers And Thumb 12/12/2008 DIONNA ELECTRICAL SIGN WIRER HELPER, LAURIE 682 .4 Cellulitis And Abscess Of Hand Except Fingers And Thumb 12/12/2008 OMAR ADORNO APRN 68 2.4 Cellulitis And Abscess Of Hand Except Fingers And Thumb 12/12/2008 DIONNA ELECTRICAL SIGN WIRER HELPER, LAURIE 682 .4 Cellulitis And Abscess Of Hand Except Fingers And Thumb 12/12/2008 KAITLIN ISLAS DDS 68 2.4 Cellulitis And Abscess Of Hand Except Fingers And Thumb 12/12/2008 JULI ESPINOZA DDS 68 2.4 Cellulitis And Abscess Of Hand Except Fingers And Thumb 12/12/2008 JULI ESPINOZA DDS 68 2.4 Cellulitis And Abscess Of Hand Except Fingers And Thumb 12/12/2008 DIONNA ELECTRICAL SIGN WIRER HELPER, LAURIE 682 .4 Cellulitis And Abscess Of [...] ADORNO APRN 786.50 Chest Pain 01/17/2009 RANJAN ELECTRICAL SIGN WIRER HELPER, NENO S 786.50 Chest Pain 01/17/2009 OMAR ADORNO APRN 786.50 Chest Pain 01/17/2009 DOUGLAS LEAL MD 786.5 0 Chest Pain 01/17/2009 BENI GEOTHERMAL POWERPLANT MECHANIC HELPER, AREN B 786.50 Chest Pain 01/17/2009 RANJAN ELECTRICAL SIGN WIRER HELPER, NENO S 786.50 Chest Pain 01/17/2009 BRENDA PHD, KAREN Quinn 786.50 Chest Pain 01/17/2009 BRENDA PHD, KAREN Quinn 786.50 Chest Pain 01/17/2009 RANJAN ELECTRICAL SIGN WIRER HELPER, NENO S 786.50 Chest Pain 01/17/2009 RANJAN ELECTRICAL SIGN WIRER HELPER, NENO S 786.50 Chest Pain 01/17/2009 MALIKA GUILLEN ELECTRICAL SIGN WIRER HELPER, ROBERTO N 786.50 Chest Pain 01/17/2009 RANJAN ELECTRICAL SIGN WIRER HELPER, NENO S 786.50 Chest Pain 01/17/2009 BRENDA PHD, KAREN Quinn 786.50 Chest Pain 01/17/2009 MARIAN ELECTRICAL SIGN WIRER HELPER, PRIETO R 786.50 Chest Pain 01/17/2009 DOUGLAS LEAL MD 786.5 0 Chest Pain 01/17/2009 BERNDA PHD, KAREN Quinn 786.50 Chest Pain 01/17/2009 DIONNA ELECTRICAL SIGN WIRER HELPER, LAURIE 786 .50 Chest Pain 01/17/2009 RANJAN ELECTRICAL SIGN WIRER HELPER, NENO S 786.50 Chest Pain 01/17/2009 DIONNA ELECTRICAL SIGN WIRER HELPER, LAURIE 786 .50 Chest Pain 01/17/2009 DIONNA ELECTRICAL SIGN WIRER HELPER, LAURIE 786 .50 Chest Pain 01/17/2009 DIONNA ELECTRICAL SIGN WIRER HELPER, LAURIE 786 .50 Chest Pain 01/17/2009 OMAR ADORNO APRN 786.50 Chest Pain 01/17/2009 DIONNA ELECTRICAL SIGN WIRER HELPER, LAURIE 786 .50 Chest Pain 01/17/2009 ROSHAN DDS, KAITLIN Cortez 786.50 Chest Pain 01/17/2009 ESPINOZA DDJULI Trejo 786.50 Chest Pain 01/17/2009 ESPINOZA DDS, JULI 786.50 Chest Pain 01/17/2009 DIONNA ELECTRICAL SIGN WIRER HELPER, LAURIE 786 .50 Chest Pain 01/17/2009 HANNAH COFFMAN, BEAR K 786.50 Chest Pain 01/17/2009 MARIAN ELECTRICAL SIGN WIRER HELPER, PRIETO R 786.50 Chest Pain 01/17/2009 DIONNA ELECTRICAL SIGN WIRER HELPER, LAURIE 786 .50 Chest Pain 01/17/2009 MARIAN ELECTRICAL SIGN WIRER HELPER, PRIETO R 786.50 Chest Pain 01/17/2009 MARIAN ELECTRICAL SIGN WIRER HELPER, PRIETO R 786.50 Chest Pain 01/17/2009 MEL JOYCE, DOUGLAS 786.5 0 Chest Pain 01/17/2009 YOUNG DO, BEAR K 786.50 Chest Pain 02/25/2009 YOUNG DO, BEAR K 724.5 Backache, Unspecified 02/25/2009 724.5 Back ache, Unspecified 02/25/2009 724.5 Back ache, Unspecified 02/25/2009 YOUNG DO, BEAR K 724.5 Backache, Unspecified 02/25/2009 JOSE ELECTRICAL SIGN WIRER HELPER, PAU R 724.5 Backache, Unspecified 02/25/2009 724.5 [...] KAREN Quinn 724.5 Backache, Unspecified 02/25/2009 RANJAN ELECTRICAL SIGN WIRER HELPER, NENO S 724.5 Backache, Unspecified 02/25/2009 RANJAN ELECTRICAL SIGN WIRER HELPER, NENO S 724.5 Backache, Unspecified 02/25/2009 MALIKA GUILLEN ELECTRICAL SIGN WIRER HELPER, ROBERTO Ybarra 724.5 Backache, Unspecified 02/25/2009 RANJAN ELECTRICAL SIGN WIRER HELPER, NENO S 724.5 Backache, Unspecified 02/25/2009 BRENDA PHD, KAREN Quinn 724.5 Backache, Unspecified 02/25/2009 MARIAN ELECTRICAL SIGN WIRER HELPER, PRIETO R 724.5 Backache, Unspecified 02/25/2009 MEL JOYCE, DOUGLAS 724.5 Backache, Unspecified 02/25/2009 BRENDA PHD, KAREN Quinn 724.5 Backache, Unspecified 02/25/2009 DIONNA ELECTRICAL SIGN WIRER HELPER, LAURIE 724 .5 Backache, Unspecified 02/25/2009 RANJAN ELECTRICAL SIGN WIRER HELPER, NENO S 724.5 Backache, Unspecified 02/25/2009 DIONNA ELECTRICAL SIGN WIRER HELPER, LAURIE 724 .5 Backache, Unspecified 02/25/2009 DIONNA ELECTRICAL SIGN WIRER HELPER, LAURIE 724 .5 Backache, Unspecified 02/25/2009 DIONNA ELECTRICAL SIGN WIRER HELPER, LAURIE 724 .5 Backache, Unspecified 02/25/2009 OMAR ADORNO APRN 72 4.5 Backache, Unspecified 02/25/2009 DIONNA ELECTRICAL SIGN WIRER HELPER, LAURIE 724 .5 Backache, Unspecified 02/25/2009 KAITLIN ISLAS DDS 72 4.5 Backache, Unspecified 02/25/2009 ESPINOZA DDSJULI 72 4.5 Backache, Unspecified 02/25/2009 ESPINOZA DDSJULI 72 4.5 Backache, Unspecified 02/25/2009 DIONNA ELECTRICAL SIGN WIRER HELPER, LAURIE 724 .5 Backache, Unspecified 02/25/2009 BEAR YOUNG DO 724.5 Backache, Unspecified 02/25/2009 MARIAN ELECTRICAL SIGN WIRER HELPER, PRIETO R 724.5 Backache, Unspecified 02/25/2009 DIONNA ELECTRICAL SIGN WIRER HELPER, ALURIE 724 .5 Backache, Unspecified 02/25/2009 MARIAN FRAGOSO, [...] 69 8.9 Unspecified Pruritic Disorder 02/27/2009 RANJAN ELECTRICAL SIGN WIRER HELPER, NENO S 698.9 Unspecified Pruritic Disorder 02/27/2009 BRENDA PHD, KAREN Quinn 698.9 Unspecified Pruritic Disorder 02/27/2009 BRENDA PHD, KAREN Quinn 698.9 Unspecified Pruritic Disorder 02/27/2009 RANJAN ELECTRICAL SIGN WIRER HELPER, NENO S 698.9 Unspecified Pruritic Disorder 02/27/2009 RANJAN ELECTRICAL SIGN WIRER HELPER, NENO S 698.9 Unspecified Pruritic Disorder 02/27/2009 MALIKA GUILLEN ELECTRICAL SIGN WIRER HELPER, ROBERTO N 698.9 Unspecified Pruritic Disorder 02/27/2009 RANJANELOISA MURILLON, NENO S 698.9 Unspecified Pruritic Disorder 02/27/2009 BRENDA PHD, KAREN Quinn 698.9 Unspecified Pruritic Disorder 02/27/2009 MARIAN MURILLON, PRIETO R 698.9 Unspecified Pruritic Disorder 02/27/2009 MEL JOYCE, DOUGLAS 698.9 Unspecified Pruritic Disorder 02/27/2009 BRENDA PHD, KAREN Quinn 698.9 Unspecified Pruritic Disorder 02/27/2009 DIONNA ELECTRICAL SIGN WIRER HELPER, LAURIE 698 .9 Unspecified Pruritic Disorder 02/27/2009 RANJAN ELECTRICAL SIGN WIRER HELPER, NENO S 698.9 Unspecified Pruritic Disorder 02/27/2009 DIONNA ELECTRICAL SIGN WIRER HELPER, LAURIE 698 .9 Unspecified Pruritic Disorder 02/27/2009 DIONNA ELECTRICAL SIGN WIRER HELPER, LAURIE 698 .9 Unspecified Pruritic Disorder 02/27/2009 DIONNA ELECTRICAL SIGN WIRER HELPER, LAURIE 698 .9 Unspecified Pruritic Disorder 02/27/2009 OMAR ADORNO APRN 69 8.9 Unspecified Pruritic Disorder 02/27/2009 DIONNA ELECTRICAL SIGN WIRER HELPER, LAURIE 698 .9 Unspecified Pruritic Disorder 02/27/2009 ROSHAN GILLESPIESKAITLIN 69 8.9 Unspecified Pruritic Disorder 02/27/2009 JULI ESPINOZA DDS 69 8.9 Unspecified Pruritic Disorder 02/27/2009 ESPINOZA DDSJULI 69 8.9 Unspecified Pruritic Disorder 02/27/2009 DIONNA ELECTRICAL SIGN WIRER HELPER, LAURIE 698 .9 Unspecified Pruritic Disorder 02/27/2009 BEAR YOUNG DO 698.9 Unspecified Pruritic Disorder 02/27/2009 MARIAN ELECTRICAL SIGN WIRER HELPER, PRIETO R 698.9 Unspecified Pruritic Disorder 02/27/2009 DIONNA ELECTRICAL SIGN WIRER HELPER, LAURIE 698 .9 Unspecified Pruritic Disorder 02/27/2009 MARIAN ELECTRICAL SIGN WIRER HELPER, PRIETO R 698.9 Unspecified Pruritic Disorder 02/27/2009 MARIAN ELECTRICAL SIGN WIRER HELPER, PRIETO R 698.9 Unspecified Pruritic Disorder 02/27/2009 DOUGLAS LEAL MD 698.9 Unspecified Pruritic Disorder 02/27/2009 YOUNG DO, BEAR K 698.9 Unspecified Pruritic Disorder 03/10/2009 YOUNG DO, BEAR K 785.6 Lymph Nodes Enlargement 03/10/2009 785.6 Lymp h Nodes Enlargement 03/10/2009 785.6 Lymp h Nodes Enlargement 03/10/2009 YOUNG DO, BEAR K 785.6 Lymph Nodes Enlargement 03/10/2009 JOSE ELECTRICAL SIGN WIRER HELPER, PAU R 785.6 Lymph Nodes Enlargement 03/10/2009 [...] Quinn 785.6 Lymph Nodes Enlargement 03/10/2009 RANJAN ELECTRICAL SIGN WIRER HELPER, NENO S 785.6 Lymph Nodes Enlargement 03/10/2009 RANJAN ELECTRICAL SIGN WIRER HELPER, NENO S 785.6 Lymph Nodes Enlargement 03/10/2009 MALIKA GUILLEN ELECTRICAL SIGN WIRER HELPER, ROBERTO N 785.6 Lymph Nodes Enlargement 03/10/2009 RANJAN ELECTRICAL SIGN WIRER HELPER, NENO S 785.6 Lymph Nodes Enlargement 03/10/2009 BRENDA PHD, KAREN Quinn 785.6 Lymph Nodes Enlargement 03/10/2009 MARIAN ELECTRICAL SIGN WIRER HELPER, PRIETO R 785.6 Lymph Nodes Enlargement 03/10/2009 DOUGLAS LEAL MD 785.6 Lymph Nodes Enlargement 03/10/2009 BRENDA PHD, KAREN Quinn 785.6 Lymph Nodes Enlargement 03/10/2009 DIONNA ELECTRICAL SIGN WIRER HELPER, LAURIE 785 .6 Lymph Nodes Enlargement 03/10/2009 RANJAN ELECTRICAL SIGN WIRER HELPER, NENO S 785.6 Lymph Nodes Enlargement 03/10/2009 DIONNA ELECTRICAL SIGN WIRER HELPER, LAURIE 785 .6 Lymph Nodes Enlargement 03/10/2009 DIONNA ELECTRICAL SIGN WIRER HELPER, LAURIE 785 .6 Lymph Nodes Enlargement 03/10/2009 DIONNA ELECTRICAL SIGN WIRER HELPER, LAURIE 785 .6 Lymph Nodes Enlargement 03/10/2009 OMAR ADORNO APRN 78 5.6 Lymph Nodes Enlargement 03/10/2009 DIONNA ELECTRICAL SIGN WIRER HELPER, LAURIE 785 .6 Lymph Nodes Enlargement 03/10/2009 KAITLIN ISLAS DDS 78 5.6 Lymph Nodes Enlargement 03/10/2009 ESPINOZAJULI PLUMMER DDS 78 5.6 Lymph Nodes Enlargement 03/10/2009 ESPINOZAJULI CROSS DDS 78 5.6 Lymph Nodes Enlargement 03/10/2009 DIONNA ELECTRICAL SIGN WIRER HELPER, LAURIE 785 .6 Lymph Nodes Enlargement 03/10/2009 BEAR YOUNG DO 785.6 Lymph Nodes Enlargement 03/10/2009 MARIAN ELECTRICAL SIGN WIRER HELPER, PRIETO R 785.6 Lymph Nodes Enlargement 03/10/2009 DIONNA ELECTRICAL SIGN WIRER HELPER, LAURIE 785 .6 Lymph Nodes Enlargement 03/10/2009 MARIAN ELECTRICAL SIGN WIRER HELPER, PRIETO R 785.6 Lymph Nodes Enlargement 03/10/2009 MARIAN ELECTRICAL SIGN WIRER HELPER, PRIETO R 785.6 Lymph Nodes Enlargement 03/10/2009 MEL JOYCE, DOUGLAS 785.6 Lymph Nodes Enlargement 03/10/2009 BEAR YOUNG DO 785.6 Lymph Nodes Enlargement 05/27/2009 BEAR YOUNG DO K 724.2 lower back pain 05/27/2009 BEAR YOUNG DO K 724.3 Neuritis Sciatic 05/27/2009 BEAR YOUNG DO K 785.1 Palpitations 05/27/2009 724.2 lowe r back pain 05/27/2009 724.3 Neur itis Sciatic 05/27/2009 785.1 Palp itations 05/27/2009 724.2 lowe r back pain 05/27/2009 724.3 Neur itis Sciatic 05/27/2009 785.1 Palp itations 05/27/2009 BEAR YOUNG DO K 724.2 lower back pain 05/27/2009 BEAR YOUNG DO K 724.3 Neuritis Sciatic 05/27/2009 BEAR YOUNG DO K 785.1 Palpitations 05/27/2009 JOSE ELECTRICAL SIGN WIRER HELPER, PAU R 724.2 lower back pain 05/27/2009 JOSE ELECTRICAL SIGN WIRER HELPER, PAU R 724.3 Neuritis Sciatic 05/27/2009 JOSE ELECTRICAL SIGN WIRER HELPER, PAU R 785.1 Palpitations 05/27/2009 724.2 lowe [...] DOUGLAS LEAL MD 785.1 Palpitations 05/27/2009 BENI GEOTHERMAL POWERPLANT MECHANIC HELPER, AREN B 72 4.2 lower back pain 05/27/2009 BENI GEOTHERMAL POWERPLANT MECHANIC HELPER, AREN B 72 4.3 Neuritis Sciatic 05/27/2009 BENI GEOTHERMAL POWERPLANT MECHANIC HELPER, AREN B 78 5.1 Palpitations 05/27/2009 RANJAN ELECTRICAL SIGN WIRER HELPER, NENO S 724.2 lower back pain 05/27/2009 RANJAN ELECTRICAL SIGN WIRER HELPER, NENO S 724.3 Neuritis Sciatic 05/27/2009 RANJAN ELECTRICAL SIGN WIRER HELPER, NENO S 785.1 Palpitations 05/27/2009 BRENDA PHD, KAREN Quinn 724.2 lower back pain 05/27/2009 BRENDA PHD, KAREN Quinn 724.3 Neuritis Sciatic 05/27/2009 BRENDA PABLO, KAREN Quinn 785.1 Palpitations 05/27/2009 BRENDA PABLO, KAREN Quinn 724.2 lower back pain 05/27/2009 BRENDA PHD, KAREN Quinn 724.3 Neuritis Sciatic 05/27/2009 BRENDA PHD, KAREN Quinn 785.1 Palpitations 05/27/2009 RANJAN ELECTRICAL SIGN WIRER HELPER, NENO S 724.2 lower back pain 05/27/2009 RANJAN ELECTRICAL SIGN WIRER HELPER, NENO S 724.3 Neuritis Sciatic 05/27/2009 RANJAN ELECTRICAL SIGN WIRER HELPER, NENO S 785.1 Palpitations 05/27/2009 RANJAN ELECTRICAL SIGN WIRER HELPER, NENO S 724.2 lower back pain 05/27/2009 RANJAN ELECTRICAL SIGN WIRER HELPER, NENO S 724.3 Neuritis Sciatic 05/27/2009 RANJAN ELECTRICAL SIGN WIRER HELPER, NEON S 785.1 Palpitations 05/27/2009 DALY CASHERO ELECTRICAL SIGN WIRER HELPER, ROBERTO N 724.2 lower back pain 05/27/2009 DALY CASHERO ELECTRICAL SIGN WIRER HELPER, ROBERTO N 724.3 Neuritis Sciatic 05/27/2009 DALY CASHERO ELECTRICAL SIGN WIRER HELPER, ROBERTO N 785.1 Palpitations 05/27/2009 RANJAN ELECTRICAL SIGN WIRER HELPER, NENO S 724.2 lower back pain 05/27/2009 RANJAN ELECTRICAL SIGN WIRER HELPER, NENO S 724.3 Neuritis Sciatic 05/27/2009 RANJAN ELECTRICAL SIGN WIRER HELPER, NENO S 785.1 Palpitations 05/27/2009 BRENDA PHD, KAREN Quinn 724.2 lower back pain 05/27/2009 BRENDA PHD, KAREN Quinn 724.3 Neuritis Sciatic 05/27/2009 BRENDA PHD, KAREN Quinn 785.1 Palpitations 05/27/2009 MARIAN ELECTRICAL SIGN WIRER HELPER, PRIETO R 724.2 lower back pain 05/27/2009 MARIAN ELECTRICAL SIGN WIRER HELPER, PRIETO R 724.3 Neuritis Sciatic 05/27/2009 MARIAN ELECTRICAL SIGN WIRER HELPER, PRIETO R 785.1 Palpitations 05/27/2009 MEL JOYCE, DOUGLAS 724.2 lower back pain 05/27/2009 MEL JOYCE, DOUGLAS 724.3 Neuritis Sciatic 05/27/2009 MEL JOYCE, DOUGLAS 785.1 Palpitations 05/27/2009 BRENDA PHD, KAREN Quinn 724.2 lower back pain 05/27/2009 BRENDA PHD, KAREN Quinn 724.3 Neuritis Sciatic 05/27/2009 BRENDA PHD, KAREN Qiunn 785.1 Palpitations 05/27/2009 DIONNA ELECTRICAL SIGN WIRER HELPER, LAURIE 724 .2 lower back pain 05/27/2009 DIONNA ELECTRICAL SIGN WIRER HELPER, LAURIE 724 .3 Neuritis Sciatic 05/27/2009 DIONNA ELECTRICAL SIGN WIRER HELPER, LAURIE 785 .1 Palpitations 05/27/2009 RANJAN ELECTRICAL SIGN WIRER HELPER, NENO S 724.2 lower back pain 05/27/2009 RANJAN ELECTRICAL SIGN WIRER HELPER, NENO S 724.3 Neuritis Sciatic 05/27/2009 RANJAN ELECTRICAL SIGN WIRER HELPER, NENO S 785.1 Palpitations 05/27/2009 DIONNA ELECTRICAL SIGN WIRER HELPER, LAURIE 724 .2 lower back pain 05/27/2009 DIONNA ELECTRICAL SIGN WIRER HELPER, LAURIE 724 .3 Neuritis Sciatic 05/27/2009 DIONNA ELECTRICAL SIGN WIRER HELPER, LAURIE 785 .1 Palpitations 05/27/2009 DIONNA ELECTRICAL SIGN WIRER HELPER, LAURIE 724 .2 lower back pain 05/27/2009 DIONNA ELECTRICAL SIGN WIRER HELPER, LAURIE 724 .3 Neuritis Sciatic 05/27/2009 DIONNA ELECTRICAL SIGN WIRER HELPER, LAURIE 785 .1 Palpitations 05/27/2009 DIONNA ELECTRICAL SIGN WIRER HELPER, LAURIE 724 .2 lower back pain 05/27/2009 DIONNA ELECTRICAL SIGN WIRER HELPER, LAURIE 724 .3 Neuritis Sciatic 05/27/2009 DIONNA ELECTRICAL SIGN WIRER HELPER, LAURIE 785 .1 Palpitations 05/27/2009 TILA ELECTRICAL SIGN WIRER HELPER, OMAR T 72 4.2 lower back pain 05/27/2009 TILA ELECTRICAL SIGN WIRER HELPER, OMAR T 72 4.3 Neuritis Sciatic 05/27/2009 TILA ELECTRICAL SIGN WIRER HELPER, OMAR T 78 5.1 Palpitations 05/27/2009 DIONNA ELECTRICAL SIGN WIRER HELPER, LAURIE 724 .2 lower back pain 05/27/2009 DIONNA ELECTRICAL SIGN WIRER HELPER, LAURIE 724 .3 Neuritis Sciatic 05/27/2009 DIONNA ELECTRICAL SIGN WIRER HELPER, LAURIE 785 .1 Palpitations 05/27/2009 WHITE DDS, [...] DDS, JULI 78 5.1 Palpitations 05/27/2009 DIONNA ELECTRICAL SIGN WIRER HELPER, LAURIE 724 .2 lower back pain 05/27/2009 DIONNA ELECTRICAL SIGN WIRER HELPER, LAURIE 724 .3 Neuritis Sciatic 05/27/2009 DIONNA ELECTRICAL SIGN WIRER HELPER, LAURIE 785 .1 Palpitations 05/27/2009 YOUNG DO, BEAR K 724.2 lower back pain 05/27/2009 YOUNG DO, BEAR K 724.3 Neuritis Sciatic 05/27/2009 YOUNG DO, BEAR K 785.1 Palpitations 05/27/2009 MARIAN ELECTRICAL SIGN WIRER HELPER, PRIETO R 724.2 lower back pain 05/27/2009 MARIAN ELECTRICAL SIGN WIRER HELPER, PRIETO R 724.3 Neuritis Sciatic 05/27/2009 MARIAN ELECTRICAL SIGN WIRER HELPER, PRIETO R 785.1 Palpitations 05/27/2009 DIONNA ELECTRICAL SIGN WIRER HELPER, LAURIE 724 .2 lower back pain 05/27/2009 DIONNA ELECTRICAL SIGN WIRER HELPER, LAURIE 724 .3 Neuritis Sciatic 05/27/2009 LAURIE [...] Acute Nasopharyngitis [common Cold] 06/26/2009 DALY CASHERO ELECTRICAL SIGN WIRER HELPER, ROBERTO N 278.01 MORBID OBESITY 06/26/2009 DALY CASHERO ELECTRICAL SIGN WIRER HELPER, ROBERTO N 460 Acute Nasopharyngitis [common Cold] [...] 460 Acute Nasopharyngitis [common Cold] 07/04/2009 HANNAH COFFAMN BEAR K 682.6 Cellulitis Of The Left [...] Cellulitis Of The Left Thigh 07/04/2009 RANJAN ELECTRICAL SIGN WIRER HELPER, NENO S 682.6 Cellulitis Of The Left Thigh 07/04/2009 BRENDA PHD, KAREN Quinn 682.6 Cellulitis Of The Left Thigh 07/04/2009 BRENDA PHD, KAREN Quinn 682.6 Cellulitis Of The Left Thigh 07/04/2009 RANJAN ELECTRICAL SIGN WIRER HELPER, NENO S 682.6 Cellulitis Of The Left Thigh 07/04/2009 RANJAN ELECTRICAL SIGN WIRER HELPER, NENO S 682.6 Cellulitis Of The Left Thigh 07/04/2009 MALIKA GUILLEN ELECTRICAL SIGN WIRER HELPER, ROBERTO Ybarra 682.6 Cellulitis Of The Left Thigh 07/04/2009 RANJAN ELECTRICAL SIGN WIRER HELPER, NENO S 682.6 Cellulitis Of The Left Thigh 07/04/2009 BRENDA PHD, KAREN Quinn 682.6 Cellulitis Of The Left Thigh 07/04/2009 MARIAN FRAGOSO, PRIETO Betancourt 682.6 Cellulitis Of The Left Thigh 07/04/2009 DOUGLAS LEAL MD 682.6 Cellulitis Of The Left Thigh 07/04/2009 BRENDA PHD, KAREN Quinn 682.6 Cellulitis Of The Left Thigh 07/04/2009 DIONNA ELECTRICAL SIGN WIRER HELPER, LAURIE 682 .6 Cellulitis Of The Left Thigh 07/04/2009 RANJAN ELECTRICAL SIGN WIRER HELPER, NENO S 682.6 Cellulitis Of The Left Thigh 07/04/2009 DIONNA ELECTRICAL SIGN WIRER HELPER, LAURIE 682 .6 Cellulitis Of The Left Thigh 07/04/2009 DIONNA ELECTRICAL SIGN WIRER HELPER, LAURIE 682 .6 Cellulitis Of The Left Thigh 07/04/2009 DIONNA ELECTRICAL SIGN WIRER HELPER, LAURIE 682 .6 Cellulitis Of The Left Thigh 07/04/2009 OMAR ADORNO APRN 68 2.6 Cellulitis Of The Left Thigh 07/04/2009 DIONNA ELECTRICAL SIGN WIRER HELPER, LAURIE 682 .6 Cellulitis Of The Left [...] Cellulitis Of The Left Thigh 07/04/2009 MARIAN ELECTRICAL SIGN WIRER HELPER, PRIETO R 682.6 Cellulitis Of The Left [...] AREN BAZAN LCPC 787.91 Diarrhea 08/07/2009 RANJAN ELECTRICAL SIGN WIRER HELPER, NENO S 787.91 Diarrhea 08/07/2009 BRENDA PHD, KAREN Quinn 787.91 Diarrhea 08/07/2009 BRENDA PHD, KAREN Quinn 787.91 Diarrhea 08/07/2009 RANJAN ELECTRICAL SIGN WIRER HELPER, NENO S 787.91 Diarrhea 08/07/2009 RANJAN ELECTRICAL SIGN WIRER HELPER, NENO S 787.91 Diarrhea 08/07/2009 MALIKA GUILLEN ELECTRICAL SIGN WIRER HELPERROBERTO N 787.91 Diarrhea 08/07/2009 RANJAN ELECTRICAL SIGN WIRER HELPER, NENO S 787.91 Diarrhea 08/07/2009 BRENDA PHD, KAREN Quinn 787.91 Diarrhea 08/07/2009 MARIAN ELECTRICAL SIGN WIRER HELPER, PRIETO R 787.91 Diarrhea 08/07/2009 DOUGLAS LEAL MD 787.9 1 Diarrhea 08/07/2009 BRENDA PHD, KAREN Quinn 787.91 Diarrhea 08/07/2009 DIONNA ELECTRICAL SIGN WIRER HELPER, LAURIE 787 .91 Diarrhea 08/07/2009 RANJAN ELECTRICAL SIGN WIRER HELPER, NENO S 787.91 Diarrhea 08/07/2009 DINONA ELECTRICAL SIGN WIRER HELPER, LAURIE 787 .91 Diarrhea 08/07/2009 DIONNA ELECTRICAL SIGN WIRER HELPER, LAURIE 787 .91 Diarrhea 08/07/2009 DIONNA ELECTRICAL SIGN WIRER HELPER, LAURIE 787 .91 Diarrhea 08/07/2009 OMAR ADORNO APRN 787.91 Diarrhea 08/07/2009 DIONNA ELECTRICAL SIGN WIRER HELPER, LAURIE 787 .91 Diarrhea 08/07/2009 ROSHAN DDS, KAITLIN Cortez 787.91 Diarrhea 08/07/2009 ESPINOZA DDS, JULI 787.91 Diarrhea 08/07/2009 ESPINOZA DDS, JULI 787.91 Diarrhea 08/07/2009 DIONNA ELECTRICAL SIGN WIRER HELPER, LAURIE 787 .91 Diarrhea 08/07/2009 YOUNG DOKENDYA K 787.91 Diarrhea 08/07/2009 MARIAN ELECTRICAL SIGN WIRER HELPER, PRIETO R 787.91 Diarrhea 08/07/2009 DIONNA ELECTRICAL SIGN WIRER HELPER, LAURIE 787 .91 Diarrhea 08/07/2009 MARIAN ELECTRICAL SIGN WIRER HELPER, PRIETO R 787.91 Diarrhea 08/07/2009 MARIAN ELECTRICAL SIGN WIRER HELPER, PRIETO R 787.91 Diarrhea 08/07/2009 DOUGLAS LEAL [...] To Plants [ex cept Food] 09/18/2009 TILA ELECTRICAL SIGN WIRER HELPER, OMAR T 69 2.6 Contact Dermatitis And [...] To Plants [ex cept Food] 09/18/2009 DIONNA ELECTRICAL SIGN WIRER HELPER, LAURIE 692 .6 Contact Dermatitis And Other Eczema, Due To Plants [except Food] 09/18/2009 DIONNA ELECTRICAL SIGN WIRER HELPER, LAURIE 692 .6 Contact Dermatitis And Other Eczema, Due To Plants [except Food] 09/18/2009 DIONNA ELECTRICAL SIGN WIRER HELPER, LAURIE 692 .6 Contact Dermatitis And Other Eczema, Due To Plants [except Food] 09/18/2009 OMAR ADORNO APRN 69 2.6 Contact Dermatitis And Other Eczema, Due To Plants [except Food] 09/18/2009 RAMEZ VILLAREAL APRNETTE 692 .6 [...] , BEAR K 782.62 Flushing 03/25/2010 JOSE ELECTRICAL SIGN WIRER HELPER, PAU R 354.0 Carpal Tunnel Syndrome 03/25/2010 JOSE ELECTRICAL SIGN WIRER HELPER, PAU R 727.41 Ganglion Of Joint 03/25/2010 JOSE ELECTRICAL SIGN WIRER HELPER, PAU R 782.62 Flushing 03/25/2010 354.0 Carp [...] 35 4.0 Carpal Tunnel Syndrome 03/25/2010 BENI GEOTHERMAL POWERPLANT MECHANIC HELPER, AREN B 727.41 Ganglion Of Joint 03/25/2010 BENI GEOTHERMAL POWERPLANT MECHANIC HELPER, AREN B 782.62 Flushing 03/25/2010 RANJAN ELECTRICAL SIGN WIRER HELPER, NENO S 354.0 Carpal Tunnel Syndrome 03/25/2010 RANJAN ELECTRICAL SIGN WIRER HELPER, NENO S 727.41 Ganglion Of Joint 03/25/2010 RANJAN MURILLON, NENO S 782.62 Flushing 03/25/2010 KAREN GUTIERREZ PHD 354.0 Carpal Tunnel Syndrome 03/25/2010 BRENDA PABLO, KAREN Quinn 727.41 Ganglion Of Joint 03/25/2010 BRENDA PABLO, KAREN Quinn 782.62 Flushing 03/25/2010 BRENDA PBALO, KAREN Quinn 354.0 Carpal Tunnel Syndrome 03/25/2010 BRENDA PABLO, KAREN Quinn 727.41 Ganglion Of Joint 03/25/2010 BRENDA PABLO, KRAEN Quinn 782.62 Flushing 03/25/2010 RANJAN MURILLON, NENO S 354.0 Carpal Tunnel Syndrome 03/25/2010 RANJAN ELECTRICAL SIGN WIRER HELPER, NENO S 727.41 Ganglion Of Joint 03/25/2010 RANJAN ELECTRICAL SIGN WIRER HELPER, NENO S 782.62 Flushing 03/25/2010 RANJAN ELECTRICAL SIGN WIRER HELPER, NENO S 354.0 Carpal Tunnel Syndrome 03/25/2010 RANJAN ELECTRICAL SIGN WIRER HELPER, NENO S 727.41 Ganglion Of Joint 03/25/2010 RANJAN ELECTRICAL SIGN WIRER HELPER, NENO S 782.62 Flushing 03/25/2010 MALIKA GUILLEN ELECTRICAL SIGN WIRER HELPER ROBERTO N 354.0 Carpal Tunnel Syndrome 03/25/2010 DALY CASHERO ELECTRICAL SIGN WIRER HELPER, ROBERTO N 727.41 Ganglion Of Joint 03/25/2010 DALY CASHERO ELECTRICAL SIGN WIRER HELPER, ROBERTO N 782.62 Flushing 03/25/2010 RANJAN ELECTRICAL SIGN WIRER HELPER, NENO S 354.0 Carpal Tunnel Syndrome 03/25/2010 RANJAN ELECTRICAL SIGN WIRER HELPER, NENO S 727.41 Ganglion Of Joint 03/25/2010 RANJAN ELECTRICAL SIGN WIRER HELPER, NENO S 782.62 Flushing 03/25/2010 KAREN GUTIERREZ PHD 354.0 Carpal Tunnel Syndrome 03/25/2010 KAREN GUTIERREZ PHD 727.41 Ganglion Of Joint 03/25/2010 KAREN GUTIERREZ PHD 782.62 Flushing 03/25/2010 MARIAN ELECTRICAL SIGN WIRER HELPER, PRIETO R 354.0 Carpal Tunnel Syndrome 03/25/2010 MARIAN ELECTRICAL SIGN WIRER HELPER, PRIETO R 727.41 Ganglion Of Joint 03/25/2010 MARIAN ELECTRICAL SIGN WIRER HELPER, PRIETO R 782.62 Flushing 03/25/2010 DOUGLAS LEAL MD 354.0 Carpal Tunnel Syndrome 03/25/2010 DOUGLAS LEAL MD 727.4 1 Ganglion Of Joint 03/25/2010 DOUGLAS LEAL MD 782.6 2 Flushing 03/25/2010 KAREN GUTIERREZ PHD 354.0 Carpal Tunnel Syndrome 03/25/2010 KAREN GUTIERREZ PHD 727.41 Ganglion Of Joint 03/25/2010 KAREN GUTIERREZ PHD 782.62 Flushing 03/25/2010 DIONNA ELECTRICAL SIGN WIRER HELPER, LAURIE 354 .0 Carpal Tunnel Syndrome 03/25/2010 DIONNA ELECTRICAL SIGN WIRER HELPER, LAURIE 727 .41 Ganglion Of Joint 03/25/2010 DIONNA ELECTRICAL SIGN WIRER HELPER, LAURIE 782 .62 Flushing 03/25/2010 RANJAN ELECTRICAL SIGN WIRER HELPER, NENO S 354.0 Carpal Tunnel Syndrome 03/25/2010 RANJAN ELECTRICAL SIGN WIRER HELPER, NENO S 727.41 Ganglion Of Joint 03/25/2010 RANJAN ELECTRICAL SIGN WIRER HELPER, NENO S 782.62 Flushing 03/25/2010 DIONNA ELECTRICAL SIGN WIRER HELPER, LAURIE 354 .0 Carpal Tunnel Syndrome 03/25/2010 DIONNA ELECTRICAL SIGN WIRER HELPER, LAURIE 727 .41 Ganglion Of Joint 03/25/2010 DIONNA ELECTRICAL SIGN WIRER HELPER, LAURIE 782 .62 Flushing 03/25/2010 DIONNA ELECTRICAL SIGN WIRER HELPER, LAURIE 354 .0 Carpal Tunnel Syndrome 03/25/2010 DIONNA ELECTRICAL SIGN WIRER HELPER, LAURIE 727 .41 Ganglion Of Joint 03/25/2010 DIONNA ELECTRICAL SIGN WIRER HELPER, LAURIE 782 .62 Flushing 03/25/2010 DIONNA ELECTRICAL SIGN WIRER HELPER, LAURIE 354 .0 Carpal Tunnel Syndrome 03/25/2010 DIONNA ELECTRICAL SIGN WIRER HELPER, LAURIE 727 .41 Ganglion Of Joint 03/25/2010 DIONNA ELECTRICAL SIGN WIRER HELPER, LAURIE 782 .62 Flushing 03/25/2010 OMAR ADORNO APRN T 35 4.0 Carpal Tunnel Syndrome 03/25/2010 TILA ELECTRICAL SIGN WIRER HELPEROMAR 727.41 Ganglion Of Joint 03/25/2010 OMAR ADORNO APRN T 782.62 Flushing 03/25/2010 DIONNA ELECTRICAL SIGN WIRER HELPER, LAURIE 354 .0 Carpal Tunnel Syndrome 03/25/2010 DIONNA ELECTRICAL SIGN WIRER HELPER, LAURIE 727 .41 Ganglion Of Joint 03/25/2010 DIONNA ELECTRICAL SIGN WIRER HELPER, LAURIE 782 .62 Flushing 03/25/2010 ROSHAN DDS, [...] ESPINOZA DDS, JULI 782.62 Flushing 03/25/2010 DIONNA ELECTRICAL SIGN WIRER HELPER, LAURIE 354 .0 Carpal Tunnel Syndrome 03/25/2010 DIONNA ELECTRICAL SIGN WIRER HELPER, LAURIE 727 .41 Ganglion Of Joint 03/25/2010 DIONNA ELECTRICAL SIGN WIRER HELPER, LAURIE 782 .62 Flushing 03/25/2010 YOUNG DO, BEAR K 354.0 Carpal Tunnel Syndrome 03/25/2010 YOUNG DO, BEAR K 727.41 Ganglion Of Joint 03/25/2010 YOUNG DO, BEAR K 782.62 Flushing 03/25/2010 MARIAN ELECTRICAL SIGN WIRER HELPER, PRIETO R 354.0 Carpal Tunnel Syndrome 03/25/2010 MARIAN ELECTRICAL SIGN WIRER HELPER, PRIETO R 727.41 Ganglion Of Joint 03/25/2010 MARIAN ELECTRICAL SIGN WIRER HELPER, PRIETO R 782.62 Flushing 03/25/2010 DIONNA ELECTRICAL SIGN WIRER HELPER, LAURIE 354 .0 Carpal Tunnel Syndrome 03/25/2010 DIONNA ELECTRICAL SIGN WIRER HELPER, LAURIE 727 .41 Ganglion Of Joint 03/25/2010 DIONNA ELECTRICAL SIGN WIRER HELPER, LAURIE 782 .62 Flushing 03/25/2010 MARIAN ELECTRICAL SIGN WIRER HELPER, PRIETO R 354.0 Carpal Tunnel Syndrome 03/25/2010 MARIAN ELECTRICAL SIGN WIRER HELPER, PRIETO R 727.41 Ganglion Of Joint 03/25/2010 MARIAN ELECTRICAL SIGN WIRER HELPER, PRIETO R 782.62 Flushing 03/25/2010 MARIAN ELECTRICAL SIGN WIRER HELPER, PRIETO R 354.0 Carpal Tunnel Syndrome 03/25/2010 MARIAN ELECTRICAL SIGN WIRER HELPER, PRIETO R 727.41 Ganglion Of Joint 03/25/2010 MARIAN ELECTRICAL SIGN WIRER HELPER, PRIETO R 782.62 Flushing 03/25/2010 DOUGLAS LEAL [...] 305.1 Nondependent Tobacco Use Disorder 04/16/2010 RANJAN ELECTRICAL SIGN WIRER HELPER, NENO S 465.9 Acute Upper Respiratory Infections Of Unspecified Site 04/16/2010 TILA FRAGOSO OMAR T 30 5.1 Nondependent Tobacco Use Disorder 04/16/2010 OMAR ADORNO APRN T 46 5.9 Acute Upper Respiratory Infections Of Unspecified Site 04/16/2010 DOUGLAS LEAL MD 305.1 Nondependent Tobacco Use Disorder 04/16/2010 DOUGLAS LEAL MD 465.9 Acute Upper Respiratory Infections Of Unspecified Site 04/16/2010 BENI GEOTHERMAL POWERPLANT MECHANIC HELPER, AREN B 30 5.1 Nondependent Tobacco Use Disorder 04/16/2010 BENI GEOTHERMAL POWERPLANT MECHANIC HELPER, AREN B 46 5.9 Acute Upper Respiratory [...] Infections Of Unspecified Site 04/16/2010 DALY CASHERO ELECTRICAL SIGN WIRER HELPER, ROBERTO N 305.1 Nondependent Tobacco Use Disorder 04/16/2010 DALY CASHERO ELECTRICAL SIGN WIRER HELPER, ROBERTO N 465.9 Acute Upper Respiratory Infections Of Unspecified Site 04/16/2010 RANJAN FRAGOSO NENO S 305.1 Nondependent Tobacco Use Disorder 04/16/2010 RANJAN FRAGOSO NENO S 465.9 Acute Upper Respiratory Infections Of Unspecified Site 04/16/2010 BRENDA PABLO, KAREN Quinn 305.1 Nondependent Tobacco Use Disorder 04/16/2010 KAREN GUTIERREZ PHD 465.9 Acute Upper Respiratory Infections Of Unspecified Site 04/16/2010 MARIAN ELECTRICAL SIGN WIRER HELPER, PRIETO R 305.1 Nondependent Tobacco Use Disorder 04/16/2010 MARIAN FRAGOSO, PRIETO R 465.9 Acute Upper Respiratory Infections Of Unspecified Site 04/16/2010 DOUGLAS LEAL MD 305.1 Nondependent Tobacco Use Disorder 04/16/2010 DOUGLAS LEAL MD 465.9 Acute Upper Respiratory Infections Of Unspecified Site 04/16/2010 KAREN GUTIERREZ PHD 305.1 Nondependent Tobacco Use Disorder 04/16/2010 [...] Respiratory Infections Of Unspecified Site 04/16/2010 DIONNA ELECTRICAL SIGN WIRER HELPER, LAURIE 305 .1 Nondependent Tobacco Use Disorder [...] Leg Ankle And Kika t 06/18/2010 TILA ELECTRICAL SIGN WIRER HELPER, OMAR T 95 9.7 Other And Unspecified [...] Ankle And Kika t 06/18/2010 MALIKA GUILLEN ELECTRICAL SIGN WIRER HELPER, ROBERTO N 959.7 Other And Unspecified Injury To Knee Leg Ankle And Kika t 06/18/2010 RANJAN MURILLON, NENO S 959.7 Other And Unspecified Injury To Knee Leg Ankle And Kika t 06/18/2010 BRENDA PABLO, KAREN Quinn 959.7 Other And Unspecified Injury To Knee Leg Ankle And Kika t 06/18/2010 MARIAN ELECTRICAL SIGN WIRER HELPER, PRIETO R 959.7 Other And Unspecified Injury [...] Knee Leg Ankle And Foot 06/18/2010 DIONNA ELECTRICAL SIGN WIRER HELPER, LAURIE 959 .7 Other And Unspecified Injury To Knee Leg Ankle And Foot 06/18/2010 DIONNA ELECTRICAL SIGN WIRER HELPER, LAURIE 959 .7 Other And Unspecified Injury To Knee Leg Ankle And Foot 06/18/2010 TILA ELECTRICAL SIGN WIRER HELPER OMAR T 95 9.7 Other And Unspecified Injury To Knee Leg Ankle And Foot 06/18/2010 DIONNA ELECTRICAL SIGN WIRER HELPER, LAURIE 959 .7 Other And Unspecified Injury [...] Knee Leg Ankle And Foot 06/18/2010 DIONNA ELECTRICAL SIGN WIRER HELPER, LAURIE 959 .7 Other And Unspecified Injury To Knee Leg Ankle And Foot 06/18/2010 BEAR YOUNG DO 959.7 Other And Unspecified Injury To Knee Leg Ankle And Foot 06/18/2010 MARIAN ELECTRICAL SIGN WIRER HELPER, PRIETO R 959.7 Other And Unspecified Injury To Knee Leg Ankle And Kika t 06/18/2010 DIONNA ELECTRICAL SIGN WIRER HELPER, LAURIE 959 .7 Other And Unspecified Injury To Knee Leg Ankle And Foot 06/18/2010 MARIAN ELECTRICAL SIGN WIRER HELPER, PRIETO R 959.7 Other And Unspecified Injury [...] DO K 788.1 Dysuria 08/11/2010 YOUNG BEAR COFFMAN V17.49 FAM HX ASCVD (DISEASE) 08/11/2010 YOUNG [...] 401.9 Unspecified Essential Hypertension 08/11/2010 DALY EDOUARDERO ELECTRICAL SIGN WIRER HELPER, ROBERTO N 788.1 Dysuria 08/11/2010 DALY CASHERO ELECTRICAL SIGN WIRER HELPER, ROBERTO N V17.49 FAM HX ASCVD (DISEASE) 08/11/2010 DALY CASHERO ELECTRICAL SIGN WIRER HELPER, ROBERTO N V18.0 FAM HX DIABETES MELLITUS 08/11/2010 RANJAN FRAGOSO NENO S 300.4 DYSTHYMIC DISORDER 08/11/2010 RANJAN FRAGOSO NENO S 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 08/11/2010 RANJAN ELECTRICAL SIGN WIRER HELPER, NENO S 401.9 Unspecified Essential Hypertension 08/11/2010 RANJAN FRAGOSO NENO S 788.1 Dysuria 08/11/2010 YUKI WOODRUFF APRNA S V17.49 FAM HX ASCVD (DISEASE) 08/11/2010 RANJAN ELECTRICAL SIGN WIRER HELPER, NENO S V18.0 FAM HX DIABETES MELLITUS [...] PRIETO R 788.1 Dysuria 08/11/2010 MARIAN FRAGOSO PIRETO R V17.49 FAM HX ASCVD (DISEASE) 08/11/2010 [...] V18.0 FAM HX DIABETES MELLITUS 08/11/2010 DIONNA ELECTRICAL SIGN WIRER HELPER, LAURIE 300 .4 DYSTHYMIC DISORDER 08/11/2010 DIONNA ELECTRICAL SIGN WIRER HELPER, LAURIE 307 .42 Persistent Disorder Of Initiating Or Maintaining Sleep 08/11/2010 DIONNA ELECTRICAL SIGN WIRER HELPER, LAURIE 401 .9 Unspecified Essential Hypertension 08/11/2010 DIONNA ELECTRICAL SIGN WIRER HELPER, LAURIE 788 .1 Dysuria 08/11/2010 DIONNA ELECTRICAL SIGN WIRER HELPER, LAURIE V17 .49 FAM HX ASCVD (DISEASE) 08/11/2010 DIONNA ELECTRICAL SIGN WIRER HELPER, LAURIE V18 .0 FAM HX DIABETES MELLITUS 08/11/2010 RANJAN FRAGOSO NENO S 300.4 DYSTHYMIC DISORDER 08/11/2010 RANJAN FRAGOSO NENO S 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 08/11/2010 RANJAN FRAGOSO NENO S 401.9 Unspecified Essential Hypertension 08/11/2010 RANJAN FRAGOSO, NENO S 788.1 Dysuria 08/11/2010 RANJAN FRAGOSO, NENO S V17.49 FAM HX ASCVD (DISEASE) 08/11/2010 RANJAN FRAGOSO ENNO S V18.0 FAM HX DIABETES MELLITUS 08/11/2010 DIONNA ELECTRICAL SIGN WIRER HELPER, LAURIE 300 .4 DYSTHYMIC DISORDER 08/11/2010 DIONNA ELECTRICAL SIGN WIRER HELPER, LAURIE 307 .42 Persistent Disorder Of Initiating Or Maintaining Sleep 08/11/2010 DIONNA ELECTRICAL SIGN WIRER HELPER, LAURIE 401 .9 Unspecified Essential Hypertension 08/11/2010 DIONNA ELECTRICAL SIGN WIRER HELPER, LAURIE 788 .1 Dysuria 08/11/2010 DIONNA ELECTRICAL SIGN WIRER HELPER, LAURIE V17 .49 FAM HX ASCVD (DISEASE) 08/11/2010 DIONNA ELECTRICAL SIGN WIRER HELPER, LAURIE V18 .0 FAM HX DIABETES MELLITUS 08/11/2010 DIONNA ELECTRICAL SIGN WIRER HELPER, LAURIE 300 .4 DYSTHYMIC DISORDER 08/11/2010 DIONNA ELECTRICAL SIGN WIRER HELPER, LAURIE 307 .42 Persistent Disorder Of Initiating Or Maintaining Sleep 08/11/2010 DIONNA ELECTRICAL SIGN WIRER HELPER, LAURIE 401 .9 Unspecified Essential Hypertension 08/11/2010 DIONNA ELECTRICAL SIGN WIRER HELPER, LAURIE 788 .1 Dysuria 08/11/2010 DIONNA ELECTRICAL SIGN WIRER HELPER, LAURIE V17 .49 FAM HX ASCVD (DISEASE) 08/11/2010 DIONNA ELECTRICAL SIGN WIRER HELPER, LAURIE V18 .0 FAM HX DIABETES MELLITUS 08/11/2010 DIONNA ELECTRICAL SIGN WIRER HELPER, LAURIE 300 .4 DYSTHYMIC DISORDER 08/11/2010 DIONNA ELECTRICAL SIGN WIRER HELPER, LAURIE 307 .42 Persistent Disorder Of Initiating Or Maintaining Sleep 08/11/2010 DIONNA ELECTRICAL SIGN WIRER HELPER, LAURIE 401 .9 Unspecified Essential Hypertension 08/11/2010 [...] APRN V17.49 FAM HX ASCVD (DISEASE) 08/11/2010 MOAR ADORNO APRN V1 8.0 FAM HX DIABETES MELLITUS 08/11/2010 DIONNA MURILLOTate LAURIE 300 .4 DYSTHYMIC DISORDER 08/11/2010 DIONNA MURILLON, LAURIE 307 .42 Persistent Disorder Of Initiating Or Maintaining Sleep 08/11/2010 DIONNA ELECTRICAL SIGN WIRER HELPER, LAURIE 401 .9 Unspecified Essential Hypertension 08/11/2010 DIONNA MURILLOTate LAURIE 788 .1 Dysuria 08/11/2010 DIONNA MURILLOTate LAURIE V17 .49 FAM HX ASCVD (DISEASE) 08/11/2010 DIONNA ELECTRICAL SIGN WIRER HELPER, LAURIE V18 .0 FAM HX DIABETES MELLITUS [...] .49 FAM HX ASCVD (DISEASE) 08/11/2010 DIONNA ELECTRICAL SIGN WIRER HELPER, LAURIE V18 .0 FAM HX DIABETES MELLITUS [...] 522.5 Periapical Abscess Without Sinus 02/13/2011 RANJAN ELECTRICAL SIGN WIRER HELPER, NENO S V65.42 Counseling - Smoking Cessation [...] V65.4 2 Counseling - Smoking Cessation 02/13/2011 ARNE BAZAN LCPC B 52 2.5 Periapical Abscess [...] V65.42 Counseling - Smoking Cessation 02/13/2011 RANJAN ELECTRICAL SIGN WIRER HELPER, NENO S 522.5 Periapical Abscess Without Sinus 02/13/2011 RANJAN FRAGOSO, NENO S V65.42 Counseling - Smoking Cessation 02/13/2011 DALY CASHERO ELECTRICAL SIGN WIRER HELPER, ROBERTO N 522.5 Periapical Abscess Without Sinus 02/13/2011 MALIKA GUILLEN APRN, ROBERTO N V65.42 Counseling - Smoking Cessation 02/13/2011 RANJAN FRAGOSO NENO S 522.5 Periapical Abscess Without Sinus 02/13/2011 RANJAN FRAGOSO, NENO S V65.42 Counseling - Smoking Cessation 02/13/2011 BRENDA PABLO, KAREN Quinn 522.5 Periapical Abscess Without Sinus 02/13/2011 BRENDA PBALO, KAREN Quinn V65.42 Counseling - Smoking Cessation 02/13/2011 MARIAN ELECTRICAL SIGN WIRER HELPER, PRIETO R 522.5 Periapical Abscess Without Sinus 02/13/2011 MARIAN ELECTRICAL SIGN WIRER HELPER, PRIETO R V65.42 Counseling - Smoking Cessation 02/13/2011 DOUGLAS LEAL MD 522.5 Periapical Abscess Without Sinus 02/13/2011 DOUGLAS LEAL MD V65.4 2 Counseling - Smoking Cessation 02/13/2011 BRENDA PABLO, KAREN Quinn 522.5 Periapical Abscess Without Sinus 02/13/2011 BRENDA PABLO, KAREN Quinn V65.42 Counseling - Smoking Cessation 02/13/2011 DIONNA ELECTRICAL SIGN WIRER HELPER, LAURIE 522 .5 Periapical Abscess Without Sinus 02/13/2011 DIONNA ELECTRICAL SIGN WIRER HELPER, LAURIE V65 .42 Counseling - Smoking Cessation 02/13/2011 YUKI WOODRUFF APRNA S 522.5 Periapical Abscess Without Sinus 02/13/2011 RANJAN FRAGOSO, NENO S V65.42 Counseling - Smoking Cessation 02/13/2011 DIONNA ELECTRICAL SIGN WIRER HELPER, LAURIE 522 .5 Periapical Abscess Without Sinus 02/13/2011 DIONNA ELECTRICAL SIGN WIRER HELPER, LAURIE V65 .42 Counseling - Smoking Cessation 02/13/2011 DIONNA ELECTRICAL SIGN WIRER HELPER, LAURIE 522 .5 Periapical Abscess Without Sinus 02/13/2011 DIONNA ELECTRICAL SIGN WIRER HELPER, LAURIE V65 .42 Counseling - Smoking Cessation 02/13/2011 DIONNA ELECTRICAL SIGN WIRER HELPER, LAURIE 522 .5 Periapical Abscess Without Sinus 02/13/2011 DIONNA ELECTRICAL SIGN WIRER HELPER, LAURIE V65 .42 Counseling - Smoking Cessation 02/13/2011 OMAR ADORNO APRN 52 2.5 Periapical Abscess Without Sinus 02/13/2011 OMAR ADORNO APRN V65.42 Counseling - Smoking Cessation 02/13/2011 DIONNA ELECTRICAL SIGN WIRER HELPER, LAURIE 522 .5 Periapical Abscess Without Sinus 02/13/2011 DIONNA ELECTRICAL SIGN WIRER HELPER, LAURIE V65 .42 Counseling - Smoking Cessation [...] .5 Periapical Abscess Without Sinus 02/13/2011 DIONNA FRGAOSO LAURIE V65 .42 Counseling - Smoking Cessation [...] (3 Yrs And Above, Im) 02/24/2011 DIONNA ELECTRICAL SIGN WIRER HELPER, LAURIE V04 .81 Flu Dx (3 Yrs And Above, Im) 02/24/2011 RANJAN FRAGOSO, NENO S V04.81 Flu Dx (3 Yrs And Above, Im) 02/24/2011 DIONNA ELECTRICAL SIGN WIRER HELPER, LAURIE V04 .81 Flu Dx (3 Yrs And Above, Im) 02/24/2011 DIONNA ELECTRICAL SIGN WIRER HELPER, LAURIE V04 .81 Flu Dx (3 Yrs And Above, Im) 02/24/2011 DIONNA MURILLON, LAURIE V04 .81 Flu Dx (3 Yrs And Above, Im) 02/24/2011 OMAR ADORNO APRN V04.81 Flu Dx (3 Yrs And Above, Im) 02/24/2011 DIONNA ELECTRICAL SIGN WIRER HELPER, LAURIE V04 .81 Flu Dx (3 Yrs [...] T 46 1.9 Sinusitis Acute 03/09/2011 RANJAN ELECTRICAL SIGN WIRER HELPER, NENO S 461.9 Sinusitis Acute 03/09/2011 TILA FRAGOSO, OMAR T 46 1.9 Sinusitis Acute 03/09/2011 DOUGLAS LEAL MD 461.9 Sinusitis Acute 03/09/2011 BENI LYNCH, AREN Merida 46 1.9 Sinusitis Acute 03/09/2011 RANJAN ELECTRICAL SIGN WIRER HELPER, NENO S 461.9 Sinusitis Acute 03/09/2011 BRENDA PHD, KAREN Quinn 461.9 Sinusitis Acute 03/09/2011 BRENDA PHD, KAREN Quinn 461.9 Sinusitis Acute 03/09/2011 RANJAN ELECTRICAL SIGN WIRER HELPER, NENO S 461.9 Sinusitis Acute 03/09/2011 RANJAN ELECTRICAL SIGN WIRER HELPER, NENO S 461.9 Sinusitis Acute 03/09/2011 MALIKA GUILLEN ELECTRICAL SIGN WIRER HELPER, ROBERTO N 461.9 Sinusitis Acute 03/09/2011 RANJAN ELECTRICAL SIGN WIRER HELPER, NENO S 461.9 Sinusitis Acute 03/09/2011 BRENDA PHD, KAREN Quinn 461.9 Sinusitis Acute 03/09/2011 MARIAN ELECTRICAL SIGN WIRER HELPER, PRIETO R 461.9 Sinusitis Acute 03/09/2011 DOUGLAS LEAL MD 461.9 Sinusitis Acute 03/09/2011 BRENDA PABLO, KAREN Quinn 461.9 Sinusitis Acute 03/09/2011 DIONNA ELECTRICAL SIGN WIRER HELPER, LAURIE 461 .9 Sinusitis Acute 03/09/2011 RANJAN ELECTRICAL SIGN WIRER HELPER, NENO S 461.9 Sinusitis Acute 03/09/2011 DIONNA ELECTRICAL SIGN WIRER HELPER, LAURIE 461 .9 Sinusitis Acute 03/09/2011 DIONNA ELECTRICAL SIGN WIRER HELPER, LAURIE 461 .9 Sinusitis Acute 03/09/2011 DIONNA ELECTRICAL SIGN WIRER HELPER, LAURIE 461 .9 Sinusitis Acute 03/09/2011 OMAR ADORNO APRN T 46 1.9 Sinusitis Acute 03/09/2011 DIONNA ELECTRICAL SIGN WIRER HELPER, LAURIE 461 .9 Sinusitis Acute 03/09/2011 WHITE DDS, KAITLIN J 46 1.9 Sinusitis Acute 03/09/2011 ESPINOZA DDS, JULI 46 1.9 Sinusitis Acute 03/09/2011 ESPINOZA DDS, JULI 46 1.9 Sinusitis Acute 03/09/2011 DIONNA ELECTRICAL SIGN WIRER HELPER, LAURIE 461 .9 Sinusitis Acute 03/09/2011 BEAR YOUNG DO K 461.9 Sinusitis Acute 03/09/2011 MARIAN ELECTRICAL SIGN WIRER HELPER, PRIETO R 461.9 Sinusitis Acute 03/09/2011 DIONNA ELECTRICAL SIGN WIRER HELPER, LAURIE 461 .9 Sinusitis Acute 03/09/2011 MARIAN ELECTRICAL SIGN WIRER HELPER, PRIETO R 461.9 Sinusitis Acute 03/09/2011 MARIAN ELECTRICAL SIGN WIRER HELPER, PRIETO R 461.9 Sinusitis Acute 03/09/2011 DOUGLAS [...] The Leg (below The Knee) 03/16/2011 DIONNA ELECTRICAL SIGN WIRER HELPER, LAURIE 729 .5 Pain In The Leg (below The Knee) 03/16/2011 DIONNA ELECTRICAL SIGN WIRER HELPER, LAURIE 729 .5 Pain In The Leg (below The Knee) 03/16/2011 DIONNA ELECTRICAL SIGN WIRER HELPER, LAURIE 729 .5 Pain In The Leg (below The Knee) 03/16/2011 OMAR ADORNO APRN 72 9.5 Pain In The Leg (below The Knee) 03/16/2011 DIONNA ELECTRICAL SIGN WIRER HELPER, LAURIE 729 .5 Pain In The Leg (below The Knee) 03/16/2011 ROSHAN DDSKAITLIN 72 9.5 Pain In The Leg (below The Knee) 03/16/2011 OLGA DDSJULI 72 9.5 Pain In The Leg (below The Knee) 03/16/2011 OLGA GILLESPIESJULI 72 9.5 Pain In The Leg (below The Knee) 03/16/2011 DIONNA ELECTRICAL SIGN WIRER HELPER, LAURIE 729 .5 Pain In The Leg (below The Knee) 03/16/2011 BEAR YOUNG DO 729.5 Pain In The Leg (below The Knee) 03/16/2011 MARIAN FRAGOSO, PRIETO R 729.5 Pain In The Leg (below The Knee) 03/16/2011 DIONNA ELECTRICAL SIGN WIRER HELPER, LAURIE 729 .5 Pain In The Leg [...] Lymp hadenitis Unspecified Except Mesenteric 05/05/2011 RANJAN ELECTRICAL SIGN WIRER HELPER, NENO S 289.3 Lymphadenitis Unspecified Except Mesenteric 05/05/2011 DOUGLAS LEAL MD 289.3 Lymphadenitis Unspecified Except Mesenteric 05/05/2011 OMAR ADORNO APRN 28 9.3 Lymphadenitis Unspecified Except Mesenteric 05/05/2011 RANJAN ELECTRICAL SIGN WIRER HELPER, NENO S 289.3 Lymphadenitis Unspecified Except Mesenteric 05/05/2011 OMAR ADORNO APRN 28 9.3 Lymphadenitis Unspecified Except Mesenteric 05/05/2011 DOUGLAS LEAL MD 289.3 Lymphadenitis Unspecified Except Mesenteric 05/05/2011 BENI LYNCH, AREN B 28 9.3 Lymphadenitis Unspecified Except Mesenteric 05/05/2011 RANJAN ELECTRICAL SIGN WIRER HELPER, NENO S 289.3 Lymphadenitis Unspecified Except Mesenteric 05/05/2011 BRENDA PABLO, KAREN Quinn 289.3 Lymphadenitis Unspecified Except Mesenteric 05/05/2011 BRENDA PABLO, KAREN Quinn 289.3 Lymphadenitis Unspecified Except Mesenteric 05/05/2011 RANJAN ELECTRICAL SIGN WIRER HELPER, NENO S 289.3 Lymphadenitis Unspecified Except Mesenteric 05/05/2011 RANJAN ELECTRICAL SIGN WIRER HELPER, NENO S 289.3 Lymphadenitis Unspecified Except Mesenteric 05/05/2011 MALIKA GUILLEN ELECTRICAL SIGN WIRER HELPER, ROBERTO N 289.3 Lymphadenitis Unspecified Except Mesenteric 05/05/2011 RANJAN ELECTRICAL SIGN WIRER HELPER, NENO S 289.3 Lymphadenitis Unspecified Except Mesenteric 05/05/2011 BRENDA PABLO, KAREN Quinn 289.3 Lymphadenitis Unspecified Except Mesenteric 05/05/2011 MARIAN ELECTRICAL SIGN WIRER HELPER, PRIETO R 289.3 Lymphadenitis Unspecified Except Mesenteric 05/05/2011 DOUGLAS LEAL MD 289.3 Lymphadenitis Unspecified Except Mesenteric 05/05/2011 BRENDA PHD, KAREN Quinn 289.3 Lymphadenitis Unspecified Except Mesenteric 05/05/2011 DIONNA ELECTRICAL SIGN WIRER HELPER, LAURIE 289 .3 Lymphadenitis Unspecified Except Mesenteric 05/05/2011 RANJAN ELECTRICAL SIGN WIRER HELPER, NENO S 289.3 Lymphadenitis Unspecified Except Mesenteric 05/05/2011 DIONNA ELECTRICAL SIGN WIRER HELPER, LAURIE 289 .3 Lymphadenitis Unspecified Except Mesenteric 05/05/2011 DIONNA ELECTRICAL SIGN WIRER HELPER, LAURIE 289 .3 Lymphadenitis Unspecified Except Mesenteric 05/05/2011 DIONNA ELECTRICAL SIGN WIRER HELPER, LAURIE 289 .3 Lymphadenitis Unspecified Except Mesenteric 05/05/2011 TILA ELECTRICAL SIGN WIRER HELPER, OMAR T 28 9.3 Lymphadenitis Unspecified Except Mesenteric 05/05/2011 DIONNA ELECTRICAL SIGN WIRER HELPER, LAURIE 289 .3 Lymphadenitis Unspecified Except Mesenteric 05/05/2011 WHITE DDS, KAITLIN J 28 9.3 Lymphadenitis Unspecified Except Mesenteric 05/05/2011 ESPINOZA DDS, JULI 28 9.3 Lymphadenitis Unspecified Except Mesenteric 05/05/2011 ESPINOZA DDS, JULI 28 9.3 Lymphadenitis Unspecified Except Mesenteric 05/05/2011 DIONNA ELECTRICAL SIGN WIRER HELPER, LAURIE 289 .3 Lymphadenitis Unspecified Except Mesenteric 05/05/2011 BAER YOUNG DO K 289.3 Lymphadenitis Unspecified Except Mesenteric 05/05/2011 MARIAN ELECTRICAL SIGN WIRER HELPER, PRIETO R 289.3 Lymphadenitis Unspecified Except Mesenteric 05/05/2011 DIONNA ELECTRICAL SIGN WIRER HELPER, LAURIE 289 .3 Lymphadenitis Unspecified Except Mesenteric 05/05/2011 MARIAN ELECTRICAL SIGN WIRER HELPER, PRIETO R 289.3 Lymphadenitis Unspecified Except Mesenteric 05/05/2011 MARIAN ELECTRICAL SIGN WIRER HELPER, PRIETO R 289.3 Lymphadenitis Unspecified Except Mesenteric [...] Of Initiating Or Maintaining Sleep 05/12/2011 DIONNA ELECTRICAL SIGN WIRER HELPER, LAURIE 307 .42 Persistent Disorder Of Initiating [...] Of Initiating Or Maintaining Sleep 05/12/2011 DIONNA ELECTRICAL SIGN WIRER HELPER, LAURIE 307 .42 Persistent Disorder Of Initiating Or Maintaining Sleep 05/12/2011 BEAR YOUNG DO 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 05/12/2011 MARIAN ELECTRICAL SIGN WIRER HELPER, PRIETO R 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 05/12/2011 DIONNA ELECTRICAL SIGN WIRER HELPER LAURIE 307 .42 Persistent Disorder Of Initiating Or Maintaining Sleep 05/12/2011 MARIAN ELECTRICAL SIGN WIRER HELPER, PRIETO R 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 05/12/2011 MARIAN ELECTRICAL SIGN WIRER HELPER, PRIETO R 307.42 Persistent Disorder Of Initiating [...] 535.00 Acute Gastritis (without Hemorrhage) 05/25/2011 DIONNA ELECTRICAL SIGN WIRER HELPER, LAURIE 535 .00 Acute Gastritis (without Hemorrhage) 05/25/2011 RANJAN FRAGOSO, NENO S 535.00 Acute Gastritis (without Hemorrhage) 05/25/2011 DIONNA FRAGOSO, LAURIE 535 .00 Acute Gastritis (without Hemorrhage) 05/25/2011 DIONNA FRAGOSO, LAURIE 535 .00 Acute Gastritis (without Hemorrhage) 05/25/2011 DIONNA FRAGOSO LAURIE 535 .00 Acute Gastritis (without Hemorrhage) 05/25/2011 OMAR ADORNO APRN 535.00 Acute Gastritis (without Hemorrhage) 05/25/2011 DIONNA FRAGOSO, ALURIE 535 .00 Acute Gastritis (without Hemorrhage) 05/25/2011 [...] 46 6.0 Bronchitis, Acute 07/05/2011 BENI LYNCH, AERN B V65.42 Counseling - Smoking Cessation 07/05/2011 RANJAN FRAGOSO NENO S 466.0 Bronchitis, Acute 07/05/2011 RANJAN FRAGOSO NENO S V65.42 Counseling - Smoking Cessation 07/05/2011 BRENDA PABLO, KAREN Quinn 466.0 Bronchitis, Acute 07/05/2011 BRENDA PABLO, KAREN Quinn V65.42 Counseling - Smoking Cessation 07/05/2011 BRENDA PABLO, KAREN Quinn 466.0 Bronchitis, Acute 07/05/2011 BRENDA PABLO, KAREN Quinn V65.42 Counseling - Smoking Cessation 07/05/2011 RANJAN ELECTRICAL SIGN WIRER HELPER, NENO S 466.0 Bronchitis, Acute 07/05/2011 RANJAN ELECTRICAL SIGN WIRER HELPER, NENO S V65.42 Counseling - Smoking Cessation 07/05/2011 RANJAN ELECTRICAL SIGN WIRER HELPER, NENO S 466.0 Bronchitis, Acute 07/05/2011 RANJAN ELECTRICAL SIGN WIRER HELPER, NENO S V65.42 Counseling - Smoking Cessation 07/05/2011 DALY CASHERO ELECTRICAL SIGN WIRER HELPER, ROBERTO N 466.0 Bronchitis, Acute 07/05/2011 DALY CASHERO ELECTRICAL SIGN WIRER HELPER, ROBERTO N V65.42 Counseling - Smoking Cessation 07/05/2011 RANJAN ELECTRICAL SIGN WIRER HELPER, NENO S 466.0 Bronchitis, Acute 07/05/2011 RANJAN ELECTRICAL SIGN WIRER HELPER, NENO S V65.42 Counseling - Smoking Cessation 07/05/2011 BRENDA PABLO, KAREN Quinn 466.0 Bronchitis, Acute 07/05/2011 BRENDA PABLO, KAREN Quinn V65.42 Counseling - Smoking Cessation 07/05/2011 MARIAN ELECTRICAL SIGN WIRER HELPER, PRIETO R 466.0 Bronchitis, Acute 07/05/2011 MARIAN ELECTRICAL SIGN WIRER HELPER, PRIETO R V65.42 Counseling - Smoking Cessation 07/05/2011 MEL JOYCE, DOUGLAS 466.0 Bronchitis, Acute 07/05/2011 DOUGLAS LEAL MD V65.4 2 Counseling - Smoking Cessation 07/05/2011 BRENDA PABLO, KAREN Quinn 466.0 Bronchitis, Acute 07/05/2011 BRENDA PABLO, KAREN Quinn V65.42 Counseling - Smoking Cessation 07/05/2011 DIONNA ELECTRICAL SIGN WIRER HELPER, LAURIE 466 .0 Bronchitis, Acute 07/05/2011 DIONNA ELECTRICAL SIGN WIRER HELPER, LAURIE V65 .42 Counseling - Smoking Cessation 07/05/2011 RANJAN ELECTRICAL SIGN WIRER HELPER, NENO S 466.0 Bronchitis, Acute 07/05/2011 RANJAN ELECTRICAL SIGN WIRER HELPER, NENO S V65.42 Counseling - Smoking Cessation 07/05/2011 DIONNA ELECTRICAL SIGN WIRER HELPER, LAURIE 466 .0 Bronchitis, Acute 07/05/2011 DIONNA ELECTRICAL SIGN WIRER HELPER, LAURIE V65 .42 Counseling - Smoking Cessation 07/05/2011 DIONNA ELECTRICAL SIGN WIRER HELPER, LAURIE 466 .0 Bronchitis, Acute 07/05/2011 DIONNA ELECTRICAL SIGN WIRER HELPER, LAURIE V65 .42 Counseling - Smoking Cessation 07/05/2011 DIONNA ELECTRICAL SIGN WIRER HELPER, LAURIE 466 .0 Bronchitis, Acute 07/05/2011 DIONNA ELECTRICAL SIGN WIRER HELPER, LAURIE V65 .42 Counseling - Smoking Cessation 07/05/2011 TILA FRAGOSO, OMAR T 46 6.0 Bronchitis, Acute 07/05/2011 TILA ELECTRICAL SIGN WIRER HELPER, OMAR T V65.42 Counseling - Smoking Cessation 07/05/2011 DIONNA ELECTRICAL SIGN WIRER HELPER, LAURIE 466 .0 Bronchitis, Acute 07/05/2011 DIONNA ELECTRICAL SIGN WIRER HELPER, LAURIE V65 .42 Counseling - Smoking Cessation 07/05/2011 WHITE DDS, KAITLIN J 46 6.0 Bronchitis, Acute 07/05/2011 WHITE DDS, KAITLIN J V65.42 Counseling - Smoking Cessation 07/05/2011 ESPINOZA DDS, JULI 46 6.0 Bronchitis, Acute 07/05/2011 ESPINOZA DDS, JULI V65.42 Counseling - Smoking Cessation 07/05/2011 ESPINOZA DDS, JULI 46 6.0 Bronchitis, Acute 07/05/2011 ESPINOZA DDS, JULI V65.42 Counseling - Smoking Cessation 07/05/2011 DIONNA ELECTRICAL SIGN WIRER HELPER, LAURIE 466 .0 Bronchitis, Acute 07/05/2011 DIONNA ELECTRICAL SIGN WIRER HELPER, LAURIE V65 .42 Counseling - Smoking Cessation 07/05/2011 YOUNG DO, BEAR K 466.0 Bronchitis, Acute 07/05/2011 YOUNG DO, BEAR K V65.42 Counseling - Smoking Cessation 07/05/2011 MARIAN ELECTRICAL SIGN WIRER HELPER, PRIETO R 466.0 Bronchitis, Acute 07/05/2011 MARIAN FRAGOSO, PRIETO R V65.42 Counseling - Smoking Cessation 07/05/2011 DIONNA ELECTRICAL SIGN WIRER HELPER, LAURIE 466 .0 Bronchitis, Acute 07/05/2011 DIONNA ELECTRICAL SIGN WIRER HELPER, LAURIE V65 .42 Counseling - Smoking Cessation 07/05/2011 MARIAN ELECTRICAL SIGN WIRER HELPER, PRIETO R 466.0 Bronchitis, Acute 07/05/2011 MARIAN ELECTRICAL SIGN WIRER HELPER, PRIETO R V65.42 Counseling - Smoking Cessation 07/05/2011 MARIAN ELECTRICAL SIGN WIRER HELPER, PRIETO R 466.0 Bronchitis, Acute 07/05/2011 MARIAN ELECTRICAL SIGN WIRER HELPER, PRIETO R V65.42 Counseling - Smoking Cessation [...] Lateral Epicondylitis Elbow Region 10/05/2011 MEL JOYCE, DOUGLAS 726.3 2 Lateral Epicondylitis Elbow Region 10/05/2011 [...] DOUGLAS LEAL MD 782.1 Rash 12/16/2011 BENI GEOTHERMAL POWERPLANT MECHANIC HELPERAREN GOEL 78 2.1 Rash 12/16/2011 NENO WOODRUFF APRN S 782.1 Rash 12/16/2011 BRENDA PHD, KAREN Quinn 782.1 Rash 12/16/2011 BRENDA PHD, KAREN Quinn 782.1 Rash 12/16/2011 YUKI WOODRUFF APRNA S 782.1 Rash 12/16/2011 YUKI WOODRUFF APRNA S 782.1 Rash 12/16/2011 MALIKA GUILLEN ELECTRICAL SIGN WIRER HELPER, ROBERTO N 782.1 Rash 12/16/2011 RANJAN FRAGOSO, NENO S 782.1 Rash 12/16/2011 BRENDA PHD, KAREN Quinn 782.1 Rash 12/16/2011 MARIAN ELECTRICAL SIGN WIRER HELPER, PRIETO R 782.1 Rash 12/16/2011 DOUGLAS LEAL MD 782.1 Rash 12/16/2011 BRENDA PHD, KAREN Quinn 782.1 Rash 12/16/2011 DIONNA ELECTRICAL SIGN WIRER HELPER, LAURIE 782 .1 Rash 12/16/2011 RANJAN FRAGOSO, NENO S 782.1 Rash 12/16/2011 DIONNA ELECTRICAL SIGN WIRER HELPER, LAURIE 782 .1 Rash 12/16/2011 DIONNA ELECTRICAL SIGN WIRER HELPER, LAURIE 782 .1 Rash 12/16/2011 DIONNA ELECTRICAL SIGN WIRER HELPER, LARUIE 782 .1 Rash 12/16/2011 OMAR ADORNO APRN 78 2.1 Rash 12/16/2011 DIONNA ELECTRICAL SIGN WIRER HELPER, LAURIE 782 .1 Rash 12/16/2011 WHITE DDS, KAITLIN J 78 2.1 Rash 12/16/2011 ESPINOZA DDS, JULI 78 2.1 Rash 12/16/2011 ESPINOZA DDS, JULI 78 2.1 Rash 12/16/2011 DIONNA ELECTRICAL SIGN WIRER HELPER, LAURIE 782 .1 Rash 12/16/2011 HANNAH COFFMAN BEAR K 782.1 Rash 12/16/2011 MARIAN ELECTRICAL SIGN WIRER HELPER, PRIETO R 782.1 Rash 12/16/2011 DIONNA ELECTRICAL SIGN WIRER HELPER, LAURIE 782 .1 Rash 12/16/2011 MARIAN FRAGOSO, PRIETO R 782.1 Rash 12/16/2011 MARIAN ELECTRICAL SIGN WIRER HELPER, PRIETO R 782.1 Rash 12/16/2011 DOUGLAS LEAL [...] BEAR K 788.41 URINARY FREQUENCY 03/03/2012 JOSE ELECTRICAL SIGN WIRER HELPER, PAU R 462 PHARYNGITIS 03/03/2012 JOSE ELECTRICAL SIGN WIRER HELPER, PAU R 784.49 HOARSENESS 03/03/2012 JOSE ELECTRICAL SIGN WIRER HELPER, PAU R 786.2 cough 03/03/2012 JOSE ELECTRICAL SIGN WIRER HELPER, PAU R 788.41 URINARY FREQUENCY 03/03/2012 462 [...] APRN 784.49 Hoarseness 03/03/2012 OMAR ADORNO APRN T 78 6.2 Cough 03/03/2012 OMAR ADORNO APRN 788.41 Urinary Frequency 03/03/2012 KATIE WOODRUFF APRNNDA S 462 Pharyngitis 03/03/2012 RANJAN FRAGOSO NENO S 784.49 Hoarseness 03/03/2012 KATIE WOODRUFF APRNNDA S 786.2 Cough 03/03/2012 RANJAN FRAGOSO NENO S 788.41 Urinary Frequency 03/03/2012 OMAR ADORNO APRN T 46 2 Pharyngitis 03/03/2012 OMAR ADORNO APRN T 784.49 Hoarseness 03/03/2012 TILA FRAGOSO, OMAR T 78 6.2 Cough 03/03/2012 TILA FOUZIA, OMAR T 788.41 Urinary Frequency 03/03/2012 DOUGLAS LEAL MD 462 Pharyngitis 03/03/2012 DOUGLAS LEAL MD 784.4 9 Hoarseness 03/03/2012 DOUGLAS LEAL MD 786.2 Cough 03/03/2012 DOUGLAS LEAL MD 788.4 1 Urinary Frequency 03/03/2012 BENI GEOTHERMAL POWERPLANT MECHANIC HELPER, AREN B 46 2 Pharyngitis 03/03/2012 BENI GEOTHERMAL POWERPLANT MECHANIC HELPER, AREN B 784.49 Hoarseness 03/03/2012 BENI GEOTHERMAL POWERPLANT MECHANIC HELPER, AREN B 78 6.2 Cough 03/03/2012 BENI GEOTHERMAL POWERPLANT MECHANIC HELPER, AREN B 788.41 Urinary Frequency 03/03/2012 RANJAN [...] FRAGOSO, NENO S 786.2 Cough 03/03/2012 RANJAN ELECTRICAL SIGN WIRER HELPER, NENO S 788.41 Urinary Frequency 03/03/2012 RANJAN ELECTRICAL SIGN WIRER HELPER, NENO S 462 Pharyngitis 03/03/2012 RANJAN ELECTRICAL SIGN WIRER HELPER, NENO S 784.49 Hoarseness 03/03/2012 RANJAN ELECTRICAL SIGN WIRER HELPER, NENO S 786.2 Cough 03/03/2012 RANJAN ELECTRICAL SIGN WIRER HELPER, NENO S 788.41 Urinary Frequency 03/03/2012 DALY CASHERO ELECTRICAL SIGN WIRER HELPER, ROBERTO N 462 Pharyngitis 03/03/2012 DALY CASHERO ELECTRICAL SIGN WIRER HELPER, ROBERTO N 784.49 Hoarseness 03/03/2012 DALY CASHERO ELECTRICAL SIGN WIRER HELPER, ROBERTO N 786.2 Cough 03/03/2012 DALY CASHERO ELECTRICAL SIGN WIRER HELPER, ROBERTO N 788.41 Urinary Frequency 03/03/2012 RANJAN ELECTRICAL SIGN WIRER HELPER, NENO S 462 Pharyngitis 03/03/2012 RANJAN ELECTRICAL SIGN WIRER HELPER, NENO S 784.49 Hoarseness 03/03/2012 RANJAN ELECTRICAL SIGN WIRER HELPER, NENO S 786.2 Cough 03/03/2012 RANJAN ELECTRICAL SIGN WIRER HELPER, NENO S 788.41 Urinary Frequency 03/03/2012 BRENDA PHD, KAREN Quinn 462 Pharyngitis 03/03/2012 BRENDA PABLO, KAREN Quinn 784.49 Hoarseness 03/03/2012 BRENDA PABLO, KAREN Quinn 786.2 Cough 03/03/2012 BRENDA PABLO, KAREN Quinn 788.41 Urinary Frequency 03/03/2012 MARIAN ELECTRICAL SIGN WIRER HELPER, PRIETO R 4 62 Pharyngitis 03/03/2012 MARIAN ELECTRICAL SIGN WIRER HELPER, PRIETO R 784.49 Hoarseness 03/03/2012 MARIAN ELECTRICAL SIGN WIRER HELPER, PRIETO R 786.2 Cough 03/03/2012 MRAIAN ELECTRICAL SIGN WIRER HELPER, PRIETO R 788.41 Urinary Frequency 03/03/2012 DOUGLAS LEAL MD 462 Pharyngitis 03/03/2012 DOUGLAS LEAL MD 784.4 9 Hoarseness 03/03/2012 DOUGLAS LEAL MD 786.2 Cough 03/03/2012 DOUGLAS LEAL MD 788.4 1 Urinary Frequency 03/03/2012 BRENDA PABLO, KAREN Quinn 462 Pharyngitis 03/03/2012 BRENDA PABLO, KAREN Quinn 784.49 Hoarseness 03/03/2012 BRENDA PHD, KAREN Quinn 786.2 Cough 03/03/2012 BRENDA PHD, KAREN Quinn 788.41 Urinary Frequency 03/03/2012 DIONNA ELECTRICAL SIGN WIRER HELPER, LAURIE 462 Pharyngitis 03/03/2012 DIONNA ELECTRICAL SIGN WIRER HELPER, LAURIE 784 .49 Hoarseness 03/03/2012 DIONNA ELECTRICAL SIGN WIRER HELPER, LAURIE 786 .2 Cough 03/03/2012 DIONNA ELECTRICAL SIGN WIRER HELPER, LAURIE 788 .41 Urinary Frequency 03/03/2012 RANJAN ELECTRICAL SIGN WIRER HELPER, NENO S 462 Pharyngitis 03/03/2012 RANJAN ELECTRICAL SIGN WIRER HELPER, NENO S 784.49 Hoarseness 03/03/2012 RANJAN ELECTRICAL SIGN WIRER HELPER, NENO S 786.2 Cough 03/03/2012 RANJAN ELECTRICAL SIGN WIRER HELPER, NENO S 788.41 Urinary Frequency 03/03/2012 DIONNA ELECTRICAL SIGN WIRER HELPER, LAURIE 462 Pharyngitis 03/03/2012 DIONNA ELECTRICAL SIGN WIRER HELPER, LAURIE 784 .49 Hoarseness 03/03/2012 DIONNA ELECTRICAL SIGN WIRER HELPER, LAURIE 786 .2 Cough 03/03/2012 DIONNA ELECTRICAL SIGN WIRER HELPER, LAURIE 788 .41 Urinary Frequency 03/03/2012 DIONNA ELECTRICAL SIGN WIRER HELPER, LAURIE 462 Pharyngitis 03/03/2012 DIONNA ELECTRICAL SIGN WIRER HELPER, LAURIE 784 .49 Hoarseness 03/03/2012 DIONNA ELECTRICAL SIGN WIRER HELPER, LAURIE 786 .2 Cough 03/03/2012 DIONNA ELECTRICAL SIGN WIRER HELPER, LAURIE 788 .41 Urinary Frequency 03/03/2012 DIONNA ELECTRICAL SIGN WIRER HELPER, LAURIE 462 Pharyngitis 03/03/2012 DIONNA ELECTRICAL SIGN WIRER HELPER, LAURIE 784 .49 Hoarseness 03/03/2012 DIONNA ELECTRICAL SIGN WIRER HELPER, LAURIE 786 .2 Cough 03/03/2012 DIONNA ELECTRICAL SIGN WIRER HELPER, LAURIE 788 .41 Urinary Frequency 03/03/2012 OMAR ADORNO APRN 46 2 Pharyngitis 03/03/2012 OMAR ADORNO APRN 784.49 Hoarseness 03/03/2012 OMAR ADORNO APRN 78 6.2 Cough 03/03/2012 OMAR ADORNO APRN 788.41 Urinary Frequency 03/03/2012 DIONNA ELECTRICAL SIGN WIRER HELPER, LAURIE 462 Pharyngitis 03/03/2012 DIONNA ELECTRICAL SIGN WIRER HELPER, LAURIE 784 .49 Hoarseness 03/03/2012 DIONNA ELECTRICAL SIGN WIRER HELPER, LAURIE 786 .2 Cough 03/03/2012 DIONNA ELECTRICAL SIGN WIRER HELPER, LAURIE 788 .41 Urinary Frequency 03/03/2012 WHITE [...] DDS, JULI 788.41 Urinary Frequency 03/03/2012 DIONNA ELECTRICAL SIGN WIRER HELPER, LAURIE 462 Pharyngitis 03/03/2012 DIONNA ELECTRICAL SIGN WIRER HELPER, LAURIE 784 .49 Hoarseness 03/03/2012 DIONNA ELECTRICAL SIGN WIRER HELPER, LAURIE 786 .2 Cough 03/03/2012 DIONNA ELECTRICAL SIGN WIRER HELPER, LAURIE 788 .41 Urinary Frequency 03/03/2012 YOUNG DO, BEAR K 462 Pharyngitis 03/03/2012 YOUNG DO, BEAR K 784.49 Hoarseness 03/03/2012 YOUNG DO, BEAR K 786.2 Cough 03/03/2012 YOUNG DO, BEAR K 788.41 Urinary Frequency 03/03/2012 MARIAN MURILLON, PRIETO R 4 62 Pharyngitis 03/03/2012 MARIAN ELECTRICAL SIGN WIRER HELPER, PRIETO R 784.49 Hoarseness 03/03/2012 MARIAN ELECTRICAL SIGN WIRER HELPER, PRIETO R 786.2 Cough 03/03/2012 MARIAN FRAGOSO, PRIETO R 788.41 Urinary Frequency 03/03/2012 DIONNA ELECTRICAL SIGN WIRER HELPER, LAURIE 462 Pharyngitis 03/03/2012 DIONNA ELECTRICAL SIGN WIRER HELPER, LAURIE 784 .49 Hoarseness 03/03/2012 DIONNA ELECTRICAL SIGN WIRER HELPER, LAURIE 786 .2 Cough 03/03/2012 DIONNA ELECTRICAL SIGN WIRER HELPER, LAURIE 788 .41 Urinary Frequency 03/03/2012 MARIAN ELECTRICAL SIGN WIRER HELPER, PRIETO R 4 62 Pharyngitis 03/03/2012 MARIAN ELECTRICAL SIGN WIRER HELPER, PRIETO R 784.49 Hoarseness 03/03/2012 MARIAN ELECTRICAL SIGN WIRER HELPER, PRIETO R 786.2 Cough 03/03/2012 MARIAN ELECTRICAL SIGN WIRER HELPER, PRIETO R 788.41 Urinary Frequency 03/03/2012 MARIAN ELECTRICAL SIGN WIRER HELPER, PRIETO R 4 62 Pharyngitis 03/03/2012 MARIAN ELECTRICAL SIGN WIRER HELPER, PRIETO R 784.49 Hoarseness 03/03/2012 MARIAN ELECTRICAL SIGN WIRER HELPER, PRIETO R 786.2 Cough 03/03/2012 MARIAN ELECTRICAL SIGN WIRER HELPER, PRIETO R 788.41 Urinary Frequency 03/03/2012 DOUGLAS [...] 0 Laryngitis Acute W/o Obstruction 03/17/2012 BENI LYNCH, AREN [place] 464.00 Laryngitis Acute W/o Obstruction [...] S 527.5 Calculus, Anuja Gland/duct 03/31/2012 RANJAN ELECTRICAL SIGN WIRER HELPER, NENO S 530.81 GERD 03/31/2012 OMAR ADORNO APRN T 52 7.5 Calculus, Anuja Gland/duct 03/31/2012 TILA FRAGOSO, OMAR T 530.81 GERD 03/31/2012 DOUGLAS LEAL MD 527.5 Calculus, Anuja Gland/duct 03/31/2012 DOUGLAS LEAL MD 530.8 1 GERD 03/31/2012 BENI LYNCH, AREN B 52 7.5 Calculus, Anuja Gland/duct 03/31/2012 BENI GEOTHERMAL POWERPLANT MECHANIC HELPER, AREN B 530.81 GERD 03/31/2012 RANJAN FRAGOSO, NENO S 527.5 Calculus, Anuja Gland/duct 03/31/2012 RANJAN MURILLON, NENO S 530.81 GERD 03/31/2012 BRENDA PHD, KAREN Quinn 527.5 Calculus, Anuja Gland/duct 03/31/2012 BRENDA PHD, KAREN Quinn 530.81 GERD 03/31/2012 BRENDA PHD, KAREN Quinn 527.5 Calculus, Anuja Gland/duct 03/31/2012 BRENDA PHD, KAREN Quinn 530.81 GERD 03/31/2012 RANAJN ELECTRICAL SIGN WIRER HELPER, NENO S 527.5 Calculus, Anuja Gland/duct 03/31/2012 RANJAN ELECTRICAL SIGN WIRER HELPER, NENO S 530.81 GERD 03/31/2012 RANJAN ELECTRICAL SIGN WIRER HELPER, NENO S 527.5 Calculus, Anuja Gland/duct 03/31/2012 RANJAN ELECTRICAL SIGN WIRER HELPER, NENO S 530.81 GERD 03/31/2012 ROBERTO YATES [...] PHD, KAREN Quinn 530.81 GERD 03/31/2012 DIONNA ELECTRICAL SIGN WIRER HELPER, LAURIE 527 .5 Calculus, Anuja Gland/duct 03/31/2012 DIONNA ELECTRICAL SIGN WIRER HELPER, LAURIE 530 .81 GERD 03/31/2012 YUKI WOODRUFF APRNA S 527.5 Calculus, Anuja Gland/duct 03/31/2012 KATIE WOODRUFF APRNNDA S 530.81 GERD 03/31/2012 DIONNA ELECTRICAL SIGN WIRER HELPER, LAURIE 527 .5 Calculus, Anuja Gland/duct 03/31/2012 DIONNA ELECTRICAL SIGN WIRER HELPER, LAURIE 530 .81 GERD 03/31/2012 DIONNA ELECTRICAL SIGN WIRER HELPER, LAURIE 527 .5 Calculus, Anuja Gland/duct 03/31/2012 DIONNA ELECTRICAL SIGN WIRER HELPER, LAURIE 530 .81 GERD 03/31/2012 DIONNA ELECTRICAL SIGN WIRER HELPER, LAURIE 527 .5 Calculus, Anuja Gland/duct 03/31/2012 DIONNA ELECTRICAL SIGN WIRER HELPER, LAURIE 530 .81 GERD 03/31/2012 OMAR ADORNO APRN 52 7.5 Calculus, Anuja Gland/duct 03/31/2012 OMAR ADORNO APRN 530.81 GERD 03/31/2012 DIONNA ELECTRICAL SIGN WIRER HELPER, LAURIE 527 .5 Calculus, Anuja Gland/duct 03/31/2012 DIONNA ELECTRICAL SIGN WIRER HELPER, LAURIE 530 .81 GERD 03/31/2012 KAITLIN ISLAS DDS 52 7.5 Calculus, Anuja Gland/duct 03/31/2012 KAITLIN ISLAS DDS 530.81 GERD 03/31/2012 ESPINOZA DDS, JULI 52 7.5 Calculus, Anuja Gland/duct 03/31/2012 ESPINOZA DDS, JULI 530.81 GERD 03/31/2012 ESPINOZA DDS, JULI 52 7.5 Calculus, Anuja Gland/duct 03/31/2012 ESPINOZA DDS, JULI 530.81 GERD 03/31/2012 DIONNA ELECTRICAL SIGN WIRER HELPER, LAURIE 527 .5 Calculus, Anuja Gland/duct 03/31/2012 DIONNA ELECTRICAL SIGN WIRER HELPER, LAURIE 530 .81 GERD 03/31/2012 YOUNG DO BEAR K 527.5 Calculus, Anuja Gland/duct 03/31/2012 YOUNG DO BEAR K 530.81 GERD 03/31/2012 MARIAN ELECTRICAL SIGN WIRER HELPER, PRIETO R 527.5 Calculus, Anuja Gland/duct 03/31/2012 MARIAN ELECTRICAL SIGN WIRER HELPER, PRIETO R 530.81 GERD 03/31/2012 DIONNA ELECTRICAL SIGN WIRER HELPER, LAURIE 527 .5 Calculus, Anuja Gland/duct 03/31/2012 DIONNA ELECTRICAL SIGN WIRER HELPER, LAURIE 530 .81 GERD 03/31/2012 MARIAN ELECTRICAL SIGN WIRER HELPER, PRIETO R 527.5 Calculus, Anuja Gland/duct 03/31/2012 MARIAN ELECTRICAL SIGN WIRER HELPER, PRIETO R 530.81 GERD 03/31/2012 MARIAN ELECTRICAL SIGN WIRER HELPER, PRIETO R 527.5 Calculus, Anuja Gland/duct 03/31/2012 MARIAN ELECTRICAL SIGN WIRER HELPER, PRIETO R 530.81 GERD 03/31/2012 DOUGLAS LEAL [...] MURILLONPAU R 719.47 FOOT PAIN 04/11/2012 JOSE ELECTRICAL SIGN WIRER HELPER, PAU R 917.6 SUPERFICIAL FOREIGN BODY (SPLINTER) [...] Open Wound And Without Infection 04/11/2012 DIONNA FARGOSO LAURIE 719 .47 Foot Pain 04/11/2012 DIONNA [...] KAREN Quinn V70.5 Preemployment/preschool Exam 05/06/2012 DIONNA ELECTRICAL SIGN WIRER HELPER, LAURIE V70 .5 Preemployment/preschool Exam 05/06/2012 RANJAN FRAGOSO, NENO S V70.5 Preemployment/preschool Exam 05/06/2012 DIONNA ELECTRICAL SIGN WIRER HELPER, LAURIE V70 .5 Preemployment/preschool Exam 05/06/2012 DIONNA ELECTRICAL SIGN WIRER HELPER, LAURIE V70 .5 Preemployment/preschool Exam 05/06/2012 DIONNA ELECTRICAL SIGN WIRER HELPER, LAURIE V70 .5 Preemployment/preschool Exam 05/06/2012 OMAR [...] APRN V7 4.1 Tb Screening 05/12/2012 RANJAN ELECTRICAL SIGN WIRER HELPER, NENO S V74.1 Tb Screening 05/12/2012 OMAR [...] KAREN Quinn V74.1 Tb Screening 05/12/2012 DIONNA ELECTRICAL SIGN WIRER HELPER, LAURIE V74 .1 Tb Screening 05/12/2012 RANJAN FRAGOSO, NENO S V74.1 Tb Screening 05/12/2012 DIONNA ELECTRICAL SIGN WIRER HELPER, LAURIE V74 .1 Tb Screening 05/12/2012 DIONNA ELECTRICAL SIGN WIRER HELPER, LAURIE V74 .1 Tb Screening 05/12/2012 DIONNA ELECTRICAL SIGN WIRER HELPER, LAURIE V74 .1 Tb Screening 05/12/2012 OMAR ADORNO APRN V7 4.1 Tb Screening 05/12/2012 DIONNA ELECTRICAL SIGN WIRER HELPER, LAURIE V74 .1 Tb Screening 05/12/2012 ROSHAN DDS, KAITLIN Cortez V7 4.1 Tb Screening 05/12/2012 ESPINOZA DDJULI Trejo V7 4.1 Tb Screening 05/12/2012 ESPINOZA DDS, JULI V7 4.1 Tb Screening 05/12/2012 DIONNA ELECTRICAL SIGN WIRER HELPER, LAURIE V74 .1 Tb Screening 05/12/2012 BEAR YOUNG DO V74.1 Tb Screening 05/12/2012 MARIAN ELECTRICAL SIGN WIRER HELPER, PRIETO R V74.1 Tb Screening 05/12/2012 DIONNA ELECTRICAL SIGN WIRER HELPER, LAURIE V74 .1 Tb Screening 05/12/2012 MARIAN ELECTRICAL SIGN WIRER HELPER, PRIETO R V74.1 Tb Screening 05/12/2012 MARIAN ELECTRICAL SIGN WIRER HELPER, PRIETO R V74.1 Tb Screening 05/12/2012 DOUGLAS [...] ADORNO APRN 300.00 ANXIETY STATE UNSPECIFIED 07/04/2012 RANJAN FRAGOSO, [...] Quinn 300.00 ANXIETY STATE UNSPECIFIED 07/04/2012 DIONNA ELECTRICAL SIGN WIRER HELPER, LAURIE 300 .00 ANXIETY STATE UNSPECIFIED 07/04/2012 NENO WOODRUFF APRN S 300.00 ANXIETY STATE UNSPECIFIED 07/04/2012 DIONNA ELECTRICAL SIGN WIRER HELPER, LAURIE 300 .00 ANXIETY STATE UNSPECIFIED 07/04/2012 [...] 726.60 ENTHESOPATHY OF KNEE UNSPECIFIED 08/21/2012 RANJAN ELECTRICAL SIGN WIRER HELPER, NENO S 726.60 ENTHESOPATHY OF KNEE UNSPECIFIED 08/21/2012 BRENDA PABLO, KAREN Quinn 726.60 ENTHESOPATHY OF KNEE UNSPECIFIED 08/21/2012 MARIAN FRAGOSO, PRIETO R 726.60 ENTHESOPATHY OF KNEE UNSPECIFIED 08/21/2012 DOUGLAS LEAL MD 726.6 0 ENTHESOPATHY OF KNEE UNSPECIFIED 08/21/2012 BRENDA PABLO, KAREN Quinn 726.60 ENTHESOPATHY OF KNEE UNSPECIFIED 08/21/2012 DIONNA ELECTRICAL SIGN WIRER HELPER, LAURIE 726 .60 ENTHESOPATHY OF KNEE UNSPECIFIED 08/21/2012 RANJAN FRAGOSO, NENO S 726.60 ENTHESOPATHY OF KNEE UNSPECIFIED 08/21/2012 DIONNA ELECTRICAL SIGN WIRER HELPER, LAURIE 726 .60 ENTHESOPATHY OF KNEE UNSPECIFIED 08/21/2012 DIONNA ELECTRICAL SIGN WIRER HELPER, LAURIE 726 .60 ENTHESOPATHY OF KNEE UNSPECIFIED 08/21/2012 DIONNA ELECTRICAL SIGN WIRER HELPER, LAURIE 726 .60 ENTHESOPATHY OF KNEE UNSPECIFIED 08/21/2012 OMAR ADORNO APRN 726.60 ENTHESOPATHY OF KNEE UNSPECIFIED 08/21/2012 DIONNA ELECTRICAL SIGN WIRER HELPER, LAURIE 726 .60 ENTHESOPATHY OF KNEE UNSPECIFIED 08/21/2012 ROSHAN GILLESPIES, KAITLIN Cortez 726.60 ENTHESOPATHY OF KNEE UNSPECIFIED 08/21/2012 JULI ESPINOZA DDS 726.60 ENTHESOPATHY OF KNEE UNSPECIFIED 08/21/2012 OLGA GILLESPIES, JULI 726.60 ENTHESOPATHY OF KNEE UNSPECIFIED 08/21/2012 DIONNA ELECTRICAL SIGN WIRER HELPER, LAURIE 726 .60 ENTHESOPATHY OF KNEE UNSPECIFIED 08/21/2012 BEAR YOUNG DO 726.60 ENTHESOPATHY OF KNEE UNSPECIFIED 08/21/2012 MARIAN FRAGOSO, PRIETO R 726.60 ENTHESOPATHY OF KNEE UNSPECIFIED 08/21/2012 DIONNA ELECTRICAL SIGN WIRER HELPER, LAURIE 726 .60 ENTHESOPATHY OF KNEE UNSPECIFIED [...] S 682.0 CELLULITIS, FACE 10/12/2012 MALIKA GUILLEN ELECTRICAL SIGN WIRER HELPER, ROBERTO N 682.0 CELLULITIS, FACE 10/12/2012 RANJAN ELECTRICAL SIGN WIRER HELPER, NENO S 682.0 CELLULITIS, FACE 10/12/2012 BRENDA PHD, KAREN Quinn 682.0 CELLULITIS, FACE 10/12/2012 MARIAN MURILLON, PRIETO Betancourt 682.0 CELLULITIS, FACE 10/12/2012 DOUGLAS LEAL MD 682.0 CELLULITIS, FACE 10/12/2012 BRENDA PHD, KAREN Quinn 682.0 CELLULITIS, FACE 10/12/2012 DIONNA ELECTRICAL SIGN WIRER HELPER, LAURIE 682 .0 CELLULITIS, FACE 10/12/2012 RANJAN MURILLON, NENO S 682.0 CELLULITIS, FACE 10/12/2012 DIONNA ELECTRICAL SIGN WIRER HELPER, LAURIE 682 .0 CELLULITIS, FACE 10/12/2012 DIONNA ELECTRICAL SIGN WIRER HELPER, LAURIE 682 .0 CELLULITIS, FACE 10/12/2012 DIONNA ELECTRICAL SIGN WIRER HELPER, LAURIE 682 .0 CELLULITIS, FACE 10/12/2012 TILA ELECTRICAL SIGN WIRER HELPER, OMAR T 68 2.0 CELLULITIS, FACE 10/12/2012 DIONNA ELECTRICAL SIGN WIRER HELPER, LAURIE 682 .0 CELLULITIS, FACE 10/12/2012 WHITE DDS, KAITLIN J 68 2.0 CELLULITIS, FACE 10/12/2012 ESPINOZA DDS, JULI 68 2.0 CELLULITIS, FACE 10/12/2012 ESPINOZA DDS, JULI 68 2.0 CELLULITIS, FACE 10/12/2012 DIONNA ELECTRICAL SIGN WIRER HELPER, LAURIE 682 .0 CELLULITIS, FACE 10/12/2012 HANNAH DO, BEAR Meredith 682.0 CELLULITIS, FACE 10/12/2012 MARIAN ELECTRICAL SIGN WIRER HELPER, PRIETO R 682.0 CELLULITIS, FACE 10/12/2012 DIONNA ELECTRICAL SIGN WIRER HELPER, LAURIE 682 .0 CELLULITIS, FACE 10/12/2012 MARIAN ELECTRICAL SIGN WIRER HELPER, PRIETO R 682.0 CELLULITIS, FACE 10/12/2012 MARIAN ELECTRICAL SIGN WIRER HELPER, PRIETO R 682.0 CELLULITIS, FACE 10/12/2012 MEL [...] WOUND OF FINGERS WITHOUT COMPLICATION 11/03/2012 RANJAN ELECTRICAL SIGN WIRER HELPER, NENO S 883.0 OPEN WOUND OF FINGERS WITHOUT COMPLICATION 11/03/2012 DOUGLAS LEAL MD 883.0 OPEN WOUND OF FINGERS WITHOUT COMPLICATION 11/03/2012 TILA ELECTRICAL SIGN WIRER HELPER, OMAR T 88 3.0 OPEN WOUND OF FINGERS WITHOUT COMPLICATION 11/03/2012 RANJAN ELECTRICAL SIGN WIRER HELPER, NENO S 883.0 OPEN WOUND OF FINGERS WITHOUT COMPLICATION 11/03/2012 TILA ELECTRICAL SIGN WIRER HELPER, OMAR T 88 3.0 OPEN WOUND OF FINGERS WITHOUT COMPLICATION 11/03/2012 DOUGLAS LEAL MD 883.0 OPEN WOUND OF FINGERS WITHOUT COMPLICATION 11/03/2012 BENI LYNCH, AREN B 88 3.0 OPEN WOUND OF FINGERS WITHOUT COMPLICATION 11/03/2012 RANJAN ELECTRICAL SIGN WIRER HELPER, NENO S 883.0 OPEN WOUND OF FINGERS WITHOUT COMPLICATION 11/03/2012 KAREN GUTIERREZ PHD 883.0 OPEN WOUND OF FINGERS WITHOUT COMPLICATION 11/03/2012 KAREN GUTIERREZ PHD 883.0 OPEN WOUND OF FINGERS WITHOUT COMPLICATION 11/03/2012 RANJAN ELECTRICAL SIGN WIRER HELPER, NENO S 883.0 OPEN WOUND OF FINGERS WITHOUT COMPLICATION 11/03/2012 RANJAN ELECTRICAL SIGN WIRER HELPER, NENO S 883.0 OPEN WOUND OF FINGERS WITHOUT COMPLICATION 11/03/2012 MALIKA GUILLEN ELECTRICAL SIGN WIRER HELPER, ROBERTO N 883.0 OPEN WOUND OF FINGERS WITHOUT COMPLICATION 11/03/2012 RANJAN ELECTRICAL SIGN WIRER HELPER, NENO S 883.0 OPEN WOUND OF FINGERS WITHOUT COMPLICATION 11/03/2012 KAREN GUTIERREZ PHD 883.0 OPEN WOUND OF FINGERS WITHOUT COMPLICATION 11/03/2012 MARIAN ELECTRICAL SIGN WIRER HELPER, PRIETO R 883.0 OPEN WOUND OF FINGERS WITHOUT COMPLICATION 11/03/2012 DOUGLAS LEAL MD 883.0 OPEN WOUND OF FINGERS WITHOUT COMPLICATION 11/03/2012 KAREN GUTIERREZ PHD 883.0 OPEN WOUND OF FINGERS WITHOUT COMPLICATION 11/03/2012 DIONNA ELECTRICAL SIGN WIRER HELPER, LAURIE 883 .0 OPEN WOUND OF FINGERS WITHOUT COMPLICATION 11/03/2012 RANJAN ELECTRICAL SIGN WIRER HELPER, NENO S 883.0 OPEN WOUND OF FINGERS WITHOUT COMPLICATION 11/03/2012 DIONNA ELECTRICAL SIGN WIRER HELPER, LAURIE 883 .0 OPEN WOUND OF FINGERS WITHOUT COMPLICATION 11/03/2012 DIONNA ELECTRICAL SIGN WIRER HELPER, LAURIE 883 .0 OPEN WOUND OF FINGERS WITHOUT COMPLICATION 11/03/2012 DIONNA ELECTRICAL SIGN WIRER HELPER, LAURIE 883 .0 OPEN WOUND OF FINGERS WITHOUT COMPLICATION 11/03/2012 TILA MURILLON, OMAR Mcgowan 88 3.0 OPEN WOUND OF FINGERS WITHOUT COMPLICATION 11/03/2012 DIONNA ELECTRICAL SIGN WIRER HELPER, LAURIE 883 .0 OPEN WOUND OF FINGERS WITHOUT COMPLICATION 11/03/2012 WHITE DDS, KAITLIN Cortez 88 3.0 OPEN WOUND OF FINGERS WITHOUT COMPLICATION 11/03/2012 ESPINOZA DDS, JULI 88 3.0 OPEN WOUND OF FINGERS WITHOUT COMPLICATION 11/03/2012 OLGA DDS, JULI 88 3.0 OPEN WOUND OF FINGERS WITHOUT COMPLICATION 11/03/2012 DIONNA ELECTRICAL SIGN WIRER HELPER, LAURIE 883 .0 OPEN WOUND OF FINGERS WITHOUT COMPLICATION 11/03/2012 BEAR YOUNG DO 883.0 OPEN WOUND OF FINGERS WITHOUT COMPLICATION 11/03/2012 MARIAN ELECTRICAL SIGN WIRER HELPER, PRIETO R 883.0 OPEN WOUND OF FINGERS WITHOUT COMPLICATION 11/03/2012 DIONNA ELECTRICAL SIGN WIRER HELPER, LAURIE 883 .0 OPEN WOUND OF FINGERS WITHOUT COMPLICATION 11/03/2012 MARIAN ELECTRICAL SIGN WIRER HELPER, PRIETO R 883.0 OPEN WOUND OF FINGERS WITHOUT COMPLICATION 11/03/2012 MARIAN ELECTRICAL SIGN WIRER HELPER, PRIETO R 883.0 OPEN WOUND OF FINGERS [...] PHD, KAREN Quinn V15.82 Nicotine abuse 01/10/2013 MARIAN FRAGOSO PRIETO R V15.82 Nicotine abuse 01/10/2013 DOUGLAS LEAL MD V15.8 2 Nicotine abuse 01/10/2013 BRENDA PHD, KAREN Quinn V15.82 Nicotine abuse 01/10/2013 LAURIE VILLAREAL APRN V15 .82 Nicotine abuse 01/10/2013 KATIE WOODRUFF APRNNDA S V15.82 Nicotine abuse 01/10/2013 LAURIE VILLAREAL APRN V15 .82 Nicotine abuse 01/10/2013 DIONNA ELECTRICAL SIGN WIRER HELPER, LAURIE V15 .82 Nicotine abuse 01/10/2013 DIONNAMYESHA FRAGOSO, LAURIE V15 .82 Nicotine abuse 01/10/2013 OMAR ADORNO APRN V15.82 Nicotine abuse 01/10/2013 DIONNAMYESHA MURILLON, LAURIE V15 .82 Nicotine abuse 01/10/2013 WHITE DDS, KAITLIN J V15.82 Nicotine abuse 01/10/2013 ESPINOZA DDS, JULI V15.82 Nicotine abuse 01/10/2013 ESPINOZA DDS, JULI V15.82 Nicotine abuse 01/10/2013 DIONNA ELECTRICAL SIGN WIRER HELPER, LAURIE V15 .82 Nicotine abuse 01/10/2013 YOUNG DO, BEAR K V15.82 Nicotine abuse 01/10/2013 MARIAN FRGAOSO, PRIETO R V15.82 Nicotine abuse 01/10/2013 DIONNA ELECTRICAL SIGN WIRER HELPER, LAURIE V15 .82 Nicotine abuse 01/10/2013 MARIAN [...] OF BURN OF OTHER EXTREMITIES 03/20/2013 RANJAN ELECTRICAL SIGN WIRER HELPER, NENO S 906.7 LATE EFFECT OF BURN OF OTHER EXTREMITIES 03/20/2013 BRENDA PABLO, KAREN Quinn 906.7 LATE EFFECT OF BURN OF OTHER EXTREMITIES 03/20/2013 BRENDA PABLO, KAREN Quinn 906.7 LATE EFFECT OF BURN OF OTHER EXTREMITIES 03/20/2013 RANJAN ELECTRICAL SIGN WIRER HELPER, NENO S 906.7 LATE EFFECT OF BURN OF OTHER EXTREMITIES 03/20/2013 RANJAN ELECTRICAL SIGN WIRER HELPER, NENO S 906.7 LATE EFFECT OF BURN OF OTHER EXTREMITIES 03/20/2013 MALIKA GUILLEN ELECTRICAL SIGN WIRER HELPER, ROBERTO N 906.7 LATE EFFECT OF BURN OF OTHER EXTREMITIES 03/20/2013 RANJAN ELECTRICAL SIGN WIRER HELPER, NENO S 906.7 LATE EFFECT OF BURN OF OTHER EXTREMITIES 03/20/2013 BRENDA PABLO, KAREN Quinn 906.7 LATE EFFECT OF BURN OF OTHER EXTREMITIES 03/20/2013 MARIAN ELECTRICAL SIGN WIRER HELPER, PRIETO R 906.7 LATE EFFECT OF BURN OF OTHER EXTREMITIES 03/20/2013 DOUGLAS LEAL MD 906.7 LATE EFFECT OF BURN OF OTHER EXTREMITIES 03/20/2013 BRENDA PABLO, KAREN Quinn 906.7 LATE EFFECT OF BURN OF OTHER EXTREMITIES 03/20/2013 DIONNA ELECTRICAL SIGN WIRER HELPER, LAURIE 906 .7 LATE EFFECT OF BURN OF OTHER EXTREMITIES 03/20/2013 RANJAN ELECTRICAL SIGN WIRER HELPER, NENO S 906.7 LATE EFFECT OF BURN OF OTHER EXTREMITIES 03/20/2013 DIONNA ELECTRICAL SIGN WIRER HELPER, LAURIE 906 .7 LATE EFFECT OF BURN OF OTHER EXTREMITIES 03/20/2013 DIONNA ELECTRICAL SIGN WIRER HELPER, LAURIE 906 .7 LATE EFFECT OF BURN OF OTHER EXTREMITIES 03/20/2013 DIONNA ELECTRICAL SIGN WIRER HELPER, LAURIE 906 .7 LATE EFFECT OF BURN OF OTHER EXTREMITIES 03/20/2013 OMAR ADORNO APRN 90 6.7 LATE EFFECT OF BURN OF OTHER EXTREMITIES 03/20/2013 DIONNA ELECTR[employer] SIGN WIRER HELPER, LAURIE 906 .7 LATE EFFECT OF BURN OF OTHER EXTREMITIES 03/20/2013 KAITLIN ISLAS DDS 90 6.7 LATE EFFECT OF BURN OF OTHER EXTREMITIES 03/20/2013 JULI ESPINOZA DDS 90 6.7 LATE EFFECT OF BURN OF OTHER EXTREMITIES 03/20/2013 JULI ESPINOZA DDS 90 6.7 LATE EFFECT OF BURN OF OTHER EXTREMITIES 03/20/2013 DIONNA ELECTRICAL SIGN WIRER HELPER, LAURIE 906 .7 LATE EFFECT OF BURN OF OTHER EXTREMITIES 03/20/2013 YOUNG DO, BEAR K 906.7 LATE EFFECT OF BURN OF OTHER EXTREMITIES 03/20/2013 MARIAN ELECTRICAL SIGN WIRER HELPER, PRIETO R 906.7 LATE EFFECT OF BURN OF OTHER EXTREMITIES 03/20/2013 DIONNA ELECTRICAL SIGN WIRER HELPER, LAURIE 906 .7 LATE EFFECT OF BURN OF OTHER EXTREMITIES 03/20/2013 MARIAN ELECTRICAL SIGN WIRER HELPER, PRIETO R 906.7 LATE EFFECT OF BURN OF OTHER EXTREMITIES 03/20/2013 MARIAN ELECTRICAL SIGN WIRER HELPER, PRIETO R 906.7 LATE EFFECT OF BURN [...] BRENDA PABLO, KAREN Quinn E013.1 LAUNDRY 03/26/2013 RANJAN ELECTRICAL SIGN WIRER HELPER, NENO S 943.01 BURN OF UNSPECIFIED DEGREE OF FOREARM 03/26/2013 RANJAN ELECTRICAL SIGN WIRER HELPER, NENO S E013.1 LAUNDRY 03/26/2013 RANJAN ELECTRICAL SIGN WIRER HELPER, NENO S 943.01 BURN OF UNSPECIFIED DEGREE OF FOREARM 03/26/2013 RANJAN ELECTRICAL SIGN WIRER HELPER, NENO S E013.1 LAUNDRY 03/26/2013 DALY CASHERO ELECTRICAL SIGN WIRER HELPER, ROBERTO N 943.01 BURN OF UNSPECIFIED DEGREE OF FOREARM 03/26/2013 DALY CASHERO ELECTRICAL SIGN WIRER HELPER, ROBERTO N E013.1 LAUNDRY 03/26/2013 RANJAN ELECTRICAL SIGN WIRER HELPER, NENO S 943.01 BURN OF UNSPECIFIED DEGREE OF FOREARM 03/26/2013 RANJAN MURILLON, NENO S E013.1 LAUNDRY 03/26/2013 BRENDA PABLO, KAREN Quinn 943.01 BURN OF UNSPECIFIED DEGREE OF FOREARM 03/26/2013 KAREN GUTIERREZ PHD E013.1 LAUNDRY 03/26/2013 MARIAN ELECTRICAL SIGN WIRER HELPER, PRIETO R 943.01 BURN OF UNSPECIFIED DEGREE OF FOREARM 03/26/2013 MARIAN FRAGOSO, PRIETO R E013.1 LAUNDRY 03/26/2013 DOUGLAS LEAL MD 943.0 1 BURN OF UNSPECIFIED DEGREE OF FOREARM 03/26/2013 DOUGLAS LEAL MD E013. 1 LAUNDRY 03/26/2013 KAREN GUTIERREZ PHD 943.01 BURN OF UNSPECIFIED DEGREE OF FOREARM 03/26/2013 KAREN GUTIERREZ PHD E013.1 LAUNDRY 03/26/2013 DIONNA ELECTRICAL SIGN WIRER HELPER, LAURIE 943 .01 BURN OF UNSPECIFIED DEGREE OF FOREARM 03/26/2013 DIONNA ELECTRICAL SIGN WIRER HELPER, LAURIE E01 3.1 LAUNDRY 03/26/2013 RANJAN MURILLON, NENO S 943.01 BURN OF UNSPECIFIED DEGREE OF FOREARM 03/26/2013 RANJAN MURILLON, NEON S E013.1 LAUNDRY 03/26/2013 DIONNA ELECTRICAL SIGN WIRER HELPER, LAURIE 943 .01 BURN OF UNSPECIFIED DEGREE OF FOREARM 03/26/2013 DIONNA ELECTRICAL SIGN WIRER HELPER, LAURIE E01 3.1 LAUNDRY 03/26/2013 DIONNA ELECTRICAL SIGN WIRER HELPER, LAURIE 943 .01 BURN OF UNSPECIFIED DEGREE OF FOREARM 03/26/2013 DIONNA ELECTRICAL SIGN WIRER HELPER, LAURIE E01 3.1 LAUNDRY 03/26/2013 DIONNA ELECTRICAL SIGN WIRER HELPER, LAURIE 943 .01 BURN OF UNSPECIFIED DEGREE OF FOREARM 03/26/2013 DIONNA ELECTRICAL SIGN WIRER HELPER, LAURIE E01 3.1 LAUNDRY 03/26/2013 OMAR ADORNO APRN 943.01 BURN OF UNSPECIFIED DEGREE OF FOREARM 03/26/2013 OMAR ADORNO APRN E013.1 LAUNDRY 03/26/2013 DIONNA ELECTRICAL SIGN WIRER HELPER, LAURIE 943 .01 BURN OF UNSPECIFIED DEGREE OF FOREARM 03/26/2013 DIONNA ELECTRICAL SIGN WIRER HELPER, LAURIE E01 3.1 LAUNDRY 03/26/2013 ROSHAN DDS, KAITLIN Cortez 943.01 BURN OF UNSPECIFIED DEGREE OF FOREARM 03/26/2013 ROSHAN DDS, KAITLIN J E013.1 LAUNDRY 03/26/2013 ESPINOZA DDS, JULI 943.01 BURN OF UNSPECIFIED DEGREE OF FOREARM 03/26/2013 ESPINOZA DDS, JULI E013.1 LAUNDRY 03/26/2013 ESPINOZA DDS, JULI 943.01 BURN OF UNSPECIFIED DEGREE OF FOREARM 03/26/2013 ESPINOZA DDS, JULI E013.1 LAUNDRY 03/26/2013 DIONNA ELECTRICAL SIGN WIRER HELPER, LAURIE 943 .01 BURN OF UNSPECIFIED DEGREE OF FOREARM 03/26/2013 DIONNA ELECTRICAL SIGN WIRER HELPER, LAURIE E01 3.1 LAUNDRY 03/26/2013 YOUNG DO, BEAR K 943.01 BURN OF UNSPECIFIED DEGREE OF FOREARM 03/26/2013 YOUNG DO, BEAR K E013.1 LAUNDRY 03/26/2013 MARIAN ELECTRICAL SIGN WIRER HELPER, PRIETO R 943.01 BURN OF UNSPECIFIED DEGREE OF FOREARM 03/26/2013 MARIAN ELECTRICAL SIGN WIRER HELPER, PRIETO R E013.1 LAUNDRY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 RESIDENTIAL (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 THERAPY 07/16/2016 MAGALYS HEBERT DO Ot F17.210 NICOTINE DEPENDENCE, [...] INITIAL 07/17/2016 SOMMER EVANS Ot 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 07/17/2016 SOMMER EVANS Ot [...] INITIAL 07/19/2016 SOMMER EVANS Ot 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 07/19/2016 SOMMER EVANS Ot [...] V72.84 EXAM PRE-OPERATIVE NOS 09/24/2016 NENO WOODRUFF SODA FOUNTAIN OPERATOR Ot 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 09/24/2016 MARIAN, PRIETO R ELECTRICAL SIGN WIRER HELPER Ot 724.2 LUMBAGO 09/24/2016 MARIAN PRIETO R ELECTRICAL SIGN WIRER HELPER Ot 724.3 SCIATICA 09/24/2016 PAPITO JACOBS MD Ot 790.29 OTHER ABNORMAL GLUCOSE 09/24/2016 PAPITO JACOBS MD Ot 443 .9 PERIPH VASCULAR DIS NOS 09/24/2016 PAPITO JACOBS MD Ot 707.15 ULCER OF OTHER PART OF FOOT 09/24/2016 NENO WOODRUFF SODA FOUNTAIN OPERATOR Ot 611.72 LUMP OR MASS IN BREAST 09/24/2016 NENO WOODRUFF Ot 611.79 SYMPTOMS IN BREAST NEC 10/05/2016 Ot 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 10/05/2016 ADAN JOYCE, RAN M Ot V72.84 EXAM PRE-OPERATIVE NOS 10/05/2016 NENO WOODRUFFP Ot 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 10/05/2016 PRIETO FONSECA R ELECTRICAL SIGN WIRER HELPER Ot 724.2 LUMBAGO 10/05/2016 PRIETO FONSECA R ELECTRICAL SIGN WIRER HELPER Ot 724.3 SCIATICA 10/05/2016 PAPITO JACOBS MD [...] NICOTINE DEPENDENCE, CIGARETTES, UNCOMPL 10/05/2016 TAE CUNHA ELECTRICAL SIGN WIRER HELPER Ot I10 ESSENTIAL (PRIMARY) HYPERTENSION 10/05/2016 TAE CUNHA ELECTRICAL SIGN WIRER HELPER Ot L02.31 CUTANEOUS ABSCESS OF BUTTOCK 10/05/2016 TAE CUNHA ELECTRICAL SIGN WIRER HELPER Ot M79 .9 SOFT TISSUE DISORDER, UNSPECIFIED 10/05/2016 TAE CUNHA ELECTRICAL SIGN WIRER HELPER Ot 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 12/06/2016 Ot 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 12/06/2016 ADAN JOYCE, RAN Hughes Ot V72.84 EXAM PRE-OPERATIVE NOS 12/06/2016 NENO WOODRUFF SODA FOUNTAIN OPERATOR Ot 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 12/06/2016 PRIETO FONSECA ELECTRICAL SIGN WIRER HELPER Ot 724.2 LUMBAGO 12/06/2016 PRIETO FONSECA ELECTRICAL SIGN WIRER HELPER Ot 724.3 SCIATICA 12/06/2016 REYNALDO JOYCE, PAPITO Hector Ot 790.29 OTHER ABNORMAL GLUCOSE 12/06/2016 REYNALDO JOYCE, PAPITO Hector Ot 443 .9 PERIPH VASCULAR DIS NOS 12/06/2016 REYNALDO JOYCE, PAPITO Hector Ot 707.15 ULCER OF OTHER PART OF FOOT 12/06/2016 NENO WOODRUFF SODA FOUNTAIN OPERATOR Ot 611.72 LUMP OR MASS IN BREAST 12/06/2016 NENO WOODRUFF SODA FOUNTAIN OPERATOR Ot 611.79 SYMPTOMS IN BREAST NEC 12/12/2016 [...] MD Ot Z91.1 9 PATIENT'S NONCOMPLIANCE W [facility] 02/05/2017 JORDAN THACKER MD Ot [...] ACQ ANKLE-FOOT DEF NEC 02/13/2017 PRIETO FONSECA ELECTRICAL SIGN WIRER HELPER Ot 724.2 LUMBAGO 02/13/2017 PRIETO FONSECA ELECTRICAL SIGN WIRER HELPER Ot 724.3 SCIATICA 02/13/2017 PAPITO JACOBS MD Ot 790.29 OTHER ABNORMAL GLUCOSE 02/13/2017 PAPITO JACOBS MD Ot 443 .9 PERIPH VASCULAR DIS NOS 02/13/2017 PAPITO JACOBS MD Ot 707.15 ULCER OF OTHER PART OF FOOT 02/13/2017 NENO WOODRUFF Ot 611.72 LUMP OR MASS IN BREAST 02/13/2017 ENNO WOODRUFF Ot 611.79 SYMPTOMS IN BREAST NEC [...] 05 COUGH 06/20/2017 SOMMER EVANS Ot Z79.82 RESIDENTIAL (CURRENT) USE OF ASPIRIN 06/20/2017 SOMMER EVANS [...] V72.84 EXAM PRE-OPERATIVE NOS 06/21/2017 NENO WOODRUFF SODA FOUNTAIN OPERATOR Ot 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 06/21/2017 PRIETO FONSECA R ELECTRICAL SIGN WIRER HELPER Ot 724.2 LUMBAGO 06/21/2017 MARIAN PRIETO R ELECTRICAL SIGN WIRER HELPER Ot 724.3 SCIATICA 06/21/2017 PAPITO JACOBS MD Ot 790.29 OTHER ABNORMAL GLUCOSE 06/21/2017 PAPITO JACOBS MD Ot 443 .9 PERIPH VASCULAR DIS NOS 06/21/2017 PAPITO JACOBS MD Ot 707.15 ULCER OF OTHER PART OF FOOT 06/21/2017 NENO WOODRUFF SODA FOUNTAIN OPERATOR Ot 611.72 LUMP OR MASS IN BREAST 06/21/2017 NENO WOODRUFF SODA FOUNTAIN OPERATOR Ot 611.79 SYMPTOMS IN BREAST NEC 06/21/2017 JOSE G JOYCE, SHAHNAZ Ybarra Ot L03.313 CELLULITIS OF CHEST WALL 07/02/2017 Ot 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 07/02/2017 RAN ARELLANO MD Ot V72.84 EXAM PRE-OPERATIVE NOS 07/02/2017 NENO WOODRUFF SODA FOUNTAIN OPERATOR Ot 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 07/02/2017 PRIETO FONSECA R ELECTRICAL SIGN WIRER HELPER Ot 724.2 LUMBAGO 07/02/2017 MARIAN PRIETO R ELECTRICAL SIGN WIRER HELPER Ot 724.3 SCIATICA 07/02/2017 PAPITO JACOBS MD [...] ACQ ANKLE-FOOT DEF NEC 07/02/2017 PRIETO FONSECA ELECTRICAL SIGN WIRER HELPER Ot 724.2 LUMBAGO 07/02/2017 PRIETO FONSECA ELECTRICAL SIGN WIRER HELPER Ot 724.3 SCIATICA 07/02/2017 PAPITO JACOBS MD [...] ADULT 07/02/2017 MARTHA CHASE DO Ot Z79.82 RESIDENTIAL (CURRENT) USE OF ASPIRIN 07/02/2017 MARTHA CHASE [...] 07/04/2017 SALVATORE COFFMAN MARTHA Meredith Ot Z79.82 AIRPORT SHUTTLE DRIVER (CURRENT) USE OF ASPIRIN 07/04/2017 SALVATORE MARTHA [...] V72.84 EXAM PRE-OPERATIVE NOS 07/23/2017 NENO WOODRUFF SODA FOUNTAIN OPERATOR Ot 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 07/23/2017 PRIETO FONSECA ELECTRICAL SIGN WIRER HELPER Ot 724.2 LUMBAGO 07/23/2017 PRIETO FONSECA ELECTRICAL SIGN WIRER HELPER Ot 724.3 SCIATICA 07/23/2017 REYNALDO JOYCE, PAPITO Hector Ot 790.29 OTHER ABNORMAL GLUCOSE 07/23/2017 REYNALDO JOYCE, PAPITO Hector Ot 443 .9 PERIPH VASCULAR DIS NOS 07/23/2017 REYNALDO JOYCE, PAPITO Hector Ot 707.15 ULCER OF OTHER PART OF FOOT 07/23/2017 NENO WOODRUFF SODA FOUNTAIN OPERATOR Ot 611.72 LUMP OR MASS IN BREAST 07/23/2017 NENO WOODRUFF SODA FOUNTAIN OPERATOR Ot 611.79 SYMPTOMS IN BREAST NEC 07/23/2017 JOSE G JOYCE, SHAHNAZ Ybarra Ot L03.313 CELLULITIS OF CHEST WALL 07/23/2017 BRENNON GUAJARDO SODA FOUNTAIN OPERATOR Ot E66.01 MORBID (SEVERE) OBESITY DUE TO EXCESS CA 07/23/2017 CASANDRA BRENNON SODA FOUNTAIN OPERATOR Ot F32.9 MAJOR DEPRESSIVE DISORDER, SINGLE EPISOD 07/23/2017 CASANDRA, BRENNON SODA FOUNTAIN OPERATOR Ot F41.9 ANXIETY DISORDER, UNSPECIFIED 07/23/2017 CASANDRA BRENNON SODA FOUNTAIN OPERATOR Ot G40.909 EPILEPSY, UNSP, NOT INTRACTABLE, WITHOUT 07/23/2017 CASANDRA, BRENNON SODA FOUNTAIN OPERATOR Ot G47.9 SLEEP DISORDER, UNSPECIFIED 07/23/2017 CASANDRA, BRENNON SODA FOUNTAIN OPERATOR Ot I10 ESSENTIAL (PRIMARY) HYPERTENSION 07/23/2017 CASANDRA BRENNON SODA FOUNTAIN OPERATOR Ot J45.909 UNSPECIFIED ASTHMA, UNCOMPLICATED 07/23/2017 CASANDRA, BRENNON SODA FOUNTAIN OPERATOR Ot K21.9 GASTRO-ESOPHAGEAL REFLUX DISEASE WITHOUT 07/23/2017 CASANDRA, BRENNON SODA FOUNTAIN OPERATOR Ot T81.89XA OTH COMPLICATIONS OF PROCEDURES, NEC, IN 07/23/2017 CASANDRA BRENNON SODA FOUNTAIN OPERATOR Ot Z68.35 BODY MASS INDEX (BMI) 35.0-35.9, ADULT 07/23/2017 CASANDRA, BRENNON SODA FOUNTAIN OPERATOR Ot Z79.82 AIRPORT SHUTTLE DRIVER (CURRENT) USE OF ASPIRIN 07/23/2017 CASANDRA BRENNON SODA FOUNTAIN OPERATOR Ot Z86.19 PERSONAL HISTORY OF OTHER INFECTIOUS AND 07/23/2017 CASANDRA BRENNON SODA FOUNTAIN OPERATOR Ot Z87.42 PERSONAL HISTORY OF OTH DISEASES OF THE 07/23/2017 CASANDRA BRENNON SODA FOUNTAIN OPERATOR Ot Z88.0 ALLERGY STATUS TO PENICILLIN 07/23/2017 CASANDRA BRENNON SODA FOUNTAIN OPERATOR Ot Z88.5 ALLERGY STATUS TO NARCOTIC AGENT STATUS 07/23/2017 CASANDRABRENNON RiggsP Ot Z88.8 ALLERGY STATUS TO OTH DRUG/MEDS/BIOL SUB 07/23/2017 CASANDRABRENNON Riggs SODA FOUNTAIN OPERATOR Ot Z90.49 ACQUIRED ABSENCE OF OTHER SPECIFIED PART 07/23/2017 CASANDRABRENNON Riggs SODA FOUNTAIN OPERATOR Ot Z90.710 ACQUIRED ABSENCE OF BOTH CERVIX AND UTER 07/23/2017 CASANDRABRENNON Riggs SODA FOUNTAIN OPERATOR Ot 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 OTHER ORGANS 07/29/2017 CASANDRABRENNON RiggsP Ot E66.01 MORBID (SEVERE) OBESITY DUE TO EXCESS CA 07/29/2017 CASANDRABRENNON Riggs SODA FOUNTAIN OPERATOR Ot F32.9 MAJOR DEPRESSIVE DISORDER, SINGLE EPISOD 07/29/2017 BRENNON GUAJARDO SODA FOUNTAIN OPERATOR Ot F41.9 ANXIETY DISORDER, UNSPECIFIED 07/29/2017 BRENNON GUAJARDOP Ot G40.909 EPILEPSY, UNSP, NOT INTRACTABLE, WITHOUT 07/29/2017 CASANDRABRENNON RiggsP Ot G47.9 SLEEP DISORDER, UNSPECIFIED 07/29/2017 BRENNON GUAJARDOP Ot I10 ESSENTIAL (PRIMARY) HYPERTENSION 07/29/2017 BRENNON GUAJARDOP Ot J45.909 UNSPECIFIED ASTHMA, UNCOMPLICATED 07/29/2017 CASANDRABRENNON Riggs SODA FOUNTAIN OPERATOR Ot K21.9 GASTRO-ESOPHAGEAL REFLUX DISEASE WITHOUT 07/29/2017 BRENNON GUAJARDO SODA FOUNTAIN OPERATOR Ot T81.89XA OTH COMPLICATIONS OF PROCEDURES, NEC, IN 07/29/2017 BRENNON GUAJARDO SODA FOUNTAIN OPERATOR Ot Z68.35 BODY MASS INDEX (BMI) 35.0-35.9, ADULT 07/29/2017 BRENNON GUAJARDO SODA FOUNTAIN OPERATOR Ot Z79.82 RESIDENTIAL (CURRENT) USE OF ASPIRIN 07/29/2017 BRENNON GUAJARDO SODA FOUNTAIN OPERATOR Ot Z86.19 PERSONAL HISTORY OF OTHER INFECTIOUS AND 07/29/2017 CASANDRABRENNON Riggs SODA FOUNTAIN OPERATOR Ot Z87.42 PERSONAL HISTORY OF OTH DISEASES OF THE 07/29/2017 BRENNON GUAJARDOP Ot Z88.0 ALLERGY STATUS TO PENICILLIN 07/29/2017 BRENNON GUAJARDO SODA FOUNTAIN OPERATOR Ot Z88.5 ALLERGY STATUS TO NARCOTIC AGENT STATUS 07/29/2017 BRENNON GUAJARDO SODA FOUNTAIN OPERATOR Ot Z88.8 ALLERGY STATUS TO OTH DRUG/MEDS/BIOL SUB 07/29/2017 BRENNON GUAJARDO SODA FOUNTAIN OPERATOR Ot Z90.49 ACQUIRED ABSENCE OF OTHER SPECIFIED [...] 02/27/2018 MARCELLA FARRELL MD Ot Z79. 51 RESIDENTIAL (CURRENT) USE OF INHALED STERO 02/27/2018 MARCELLA FARRELL MD Ot Z79. 82 RESIDENTIAL (CURRENT) USE OF ASPIRIN 02/27/2018 MARCELLA FARRELL [...] F41. 9 ANXIETY DISORDER, UNSPECIFIED 03/01/2018 MARCELLA FARRELL MD Ot G40.909 EPILEPSY, UNSP, [...] 03/01/2018 MARCELLA FARRELL MD Ot Z79. 51 RESIDENTIAL (CURRENT) USE OF INHALED STERO 03/01/2018 MARCELLA FARRELL MD Ot Z79. 82 AIRPORT SHUTTLE DRIVER (CURRENT) USE OF ASPIRIN 03/01/2018 MARCELLA FARRELL [...] STATUS TO NARCOTIC AGENT STATUS 03/01/2018 MARCELLA FARRELL MD Ot Z88. 8 ALLERGY [...] 03/05/2018 MARCELLA FARRELL MD Ot Z79. 51 RESIDENTIAL (CURRENT) USE OF INHALED STERO 03/05/2018 MARCELLA FARRELL MD Ot Z79. 82 AIRPORT SHUTTLE DRIVER (CURRENT) USE OF ASPIRIN 03/05/2018 MARCELLA FARRELL [...] DUE TO EXCESS CA 03/05/2018 BRENNON GUAJARDO SODA FOUNTAIN OPERATOR Ot F12.10 CANNABIS ABUSE, UNCOMPLICATED 03/05/2018 CASANDRA BRENNON SODA FOUNTAIN OPERATOR Ot F17.210 NICOTINE DEPENDENCE, CIGARETTES, UNCOMPL 03/05/2018 BRENNON GUAJARDO SODA FOUNTAIN OPERATOR Ot F32.9 MAJOR DEPRESSIVE DISORDER, SINGLE EPISOD 03/05/2018 CASANDRA BRENNON SODA FOUNTAIN OPERATOR Ot F41.9 ANXIETY DISORDER, UNSPECIFIED 03/05/2018 CASANDRA BRENNON SODA FOUNTAIN OPERATOR Ot G40.909 EPILEPSY, UNSP, NOT INTRACTABLE, WITHOUT 03/05/2018 CASANDRA BRENNON SODA FOUNTAIN OPERATOR Ot I10 ESSENTIAL (PRIMARY) HYPERTENSION 03/05/2018 CASANDRA BRENNON SODA FOUNTAIN OPERATOR Ot J45.909 UNSPECIFIED ASTHMA, UNCOMPLICATED 03/05/2018 CASANDRA BRENNON SODA FOUNTAIN OPERATOR Ot K21.9 GASTRO-ESOPHAGEAL REFLUX DISEASE WITHOUT 03/05/2018 CASANDRA BRENNON SODA FOUNTAIN OPERATOR Ot M25.551 PAIN IN RIGHT HIP 03/05/2018 CASANDRA BRENNON SODA FOUNTAIN OPERATOR Ot M54.41 LUMBAGO WITH SCIATICA, RIGHT SIDE 03/05/2018 BRENNON GUAJARDO SODA FOUNTAIN OPERATOR Ot Z68.41 BODY MASS INDEX (BMI) 40.0-44.9, ADULT 03/05/2018 BRENNON GUAJARDO SODA FOUNTAIN OPERATOR Ot Z79.51 AIRPORT SHUTTLE DRIVER (CURRENT) USE OF INHALED STERO 03/05/2018 BRENNON GUAJARDO SODA FOUNTAIN OPERATOR Ot Z79.52 AIRPORT SHUTTLE DRIVER (CURRENT) USE OF SYSTEMIC STER 03/05/2018 BRENNON GUAJARDO SODA FOUNTAIN OPERATOR Ot Z79.82 AIRPORT SHUTTLE DRIVER (CURRENT) USE OF ASPIRIN 03/05/2018 BRENNON GUAJARDOP Ot Z82.49 FAMILY HX OF ISCHEM HEART DIS AND OTH DI 03/05/2018 BRENNON GUAJARDOP Ot Z87.19 PERSONAL HISTORY OF OTHER DISEASES OF TH 03/05/2018 BRENNON GUAJARDO Ot Z87.448 PERSONAL HISTORY OF OTHER DISEASES OF UR 03/05/2018 BRENNON GUAJARDOP Ot Z88.0 ALLERGY STATUS TO PENICILLIN 03/05/2018 BRENNON GUAJARDO SODA FOUNTAIN OPERATOR Ot Z88.5 ALLERGY STATUS TO NARCOTIC AGENT STATUS 03/05/2018 BRENNON GUAJARDO SODA FOUNTAIN OPERATOR Ot Z88.8 ALLERGY STATUS TO OTH DRUG/MEDS/BIOL SUB 03/05/2018 BRENNON GUAJARDO SODA FOUNTAIN OPERATOR Ot Z90.710 ACQUIRED ABSENCE OF BOTH CERVIX AND UTER 03/05/2018 BRENNON GUAJARDOP Ot 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 OTHER ORGANS 03/05/2018 BRENNON GUAJARDO SODA FOUNTAIN OPERATOR Ot Z98.890 OTHER SPECIFIED POSTPROCEDURAL STATES 03/08/2018 BRENNON GUAJARDOP Ot E66.01 MORBID (SEVERE) OBESITY DUE TO EXCESS CA 03/08/2018 CASANDRA BRENNON SODA FOUNTAIN OPERATOR Ot F12.10 CANNABIS ABUSE, UNCOMPLICATED 03/08/2018 CASANDRA BRENNON SODA FOUNTAIN OPERATOR Ot F17.210 NICOTINE DEPENDENCE, CIGARETTES, UNCOMPL 03/08/2018 BRENNON GUAJARDO SODA FOUNTAIN OPERATOR Ot F32.9 MAJOR DEPRESSIVE DISORDER, SINGLE EPISOD 03/08/2018 CASANDRA BRENNON SODA FOUNTAIN OPERATOR Ot F41.9 ANXIETY DISORDER, UNSPECIFIED 03/08/2018 BRENNON GUAJARDO SODA FOUNTAIN OPERATOR Ot G40.909 EPILEPSY, UNSP, NOT INTRACTABLE, WITHOUT 03/08/2018 BRENNON GUAJARDO SODA FOUNTAIN OPERATOR Ot I10 ESSENTIAL (PRIMARY) HYPERTENSION 03/08/2018 BRENNON GUAJARDO SODA FOUNTAIN OPERATOR Ot J45.909 UNSPECIFIED ASTHMA, UNCOMPLICATED 03/08/2018 CASANDRA BRNENON SODA FOUNTAIN OPERATOR Ot K21.9 GASTRO-ESOPHAGEAL REFLUX DISEASE WITHOUT 03/08/2018 CASANDRA BRENNON SODA FOUNTAIN OPERATOR Ot M25.551 PAIN IN RIGHT HIP 03/08/2018 CASANDRA BRENNON SODA FOUNTAIN OPERATOR Ot M54.41 LUMBAGO WITH SCIATICA, RIGHT SIDE 03/08/2018 BRENNON GUAJARDO SODA FOUNTAIN OPERATOR Ot Z68.41 BODY MASS INDEX (BMI) 40.0-44.9, ADULT 03/08/2018 BRENNON GUAJARDO SODA FOUNTAIN OPERATOR Ot Z79.51 RESIDENTIAL (CURRENT) USE OF INHALED STERO 03/08/2018 BRENNON GUAJARDOP Ot Z79.52 AIRPORT SHUTTLE DRIVER (CURRENT) USE OF SYSTEMIC STER 03/08/2018 BRENNON GUAJARDOP Ot Z79.82 AIRPORT SHUTTLE DRIVER (CURRENT) USE OF ASPIRIN 03/08/2018 BRENNON GUAJARDO SODA FOUNTAIN OPERATOR Ot Z82.49 FAMILY HX OF ISCHEM HEART DIS AND OTH DI 03/08/2018 BRENNON GUAJARDOP Ot Z87.19 PERSONAL HISTORY OF OTHER DISEASES OF TH 03/08/2018 BRENNON GUAJARDOP Ot Z87.448 PERSONAL HISTORY OF OTHER DISEASES OF UR 03/08/2018 BRENNON GUAJARDO SODA FOUNTAIN OPERATOR Ot Z88.0 ALLERGY STATUS TO PENICILLIN 03/08/2018 CASANDRA BRENNON SODA FOUNTAIN OPERATOR Ot Z88.5 ALLERGY STATUS TO NARCOTIC AGENT STATUS 03/08/2018 CAASNDRA BRENNON SODA FOUNTAIN OPERATOR Ot Z88.8 ALLERGY STATUS TO OTH DRUG/MEDS/BIOL SUB 03/08/2018 BRENNON GUAJARDO SODA FOUNTAIN OPERATOR Ot Z90.710 ACQUIRED ABSENCE OF BOTH CERVIX AND UTER 03/08/2018 BRENNON GUAJARDO SODA FOUNTAIN OPERATOR Ot 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 OTHER ORGANS 03/08/2018 BRENNON GUAJARDO SODA FOUNTAIN OPERATOR Ot Z98.890 OTHER SPECIFIED POSTPROCEDURAL STATES 03/12/2018 BRENNON GUAJARDO SODA FOUNTAIN OPERATOR Ot E66.01 MORBID (SEVERE) OBESITY DUE TO EXCESS CA 03/12/2018 CASANDRA BRENNON SODA FOUNTAIN OPERATOR Ot F12.10 CANNABIS ABUSE, UNCOMPLICATED 03/12/2018 CASANDRA BRENNON SODA FOUNTAIN OPERATOR Ot F17.210 NICOTINE DEPENDENCE, CIGARETTES, UNCOMPL 03/12/2018 BRENNON GUAJARDO SODA FOUNTAIN OPERATOR Ot F32.9 MAJOR DEPRESSIVE DISORDER, SINGLE EPISOD 03/12/2018 CASANDRA BRENNON SODA FOUNTAIN OPERATOR Ot F41.9 ANXIETY DISORDER, UNSPECIFIED 03/12/2018 BRENNON GUAJARDO SODA FOUNTAIN OPERATOR Ot G40.909 EPILEPSY, UNSP, NOT INTRACTABLE, WITHOUT 03/12/2018 CASANDRA BRENNON SODA FOUNTAIN OPERATOR Ot I10 ESSENTIAL (PRIMARY) HYPERTENSION 03/12/2018 CASANDRA BRENNON SODA FOUNTAIN OPERATOR Ot J45.909 UNSPECIFIED ASTHMA, UNCOMPLICATED 03/12/2018 CASANDRA BRENNON SODA FOUNTAIN OPERATOR Ot K21.9 GASTRO-ESOPHAGEAL REFLUX DISEASE WITHOUT 03/12/2018 BRENNON GUAJARDO SODA FOUNTAIN OPERATOR Ot M25.551 PAIN IN RIGHT HIP 03/12/2018 BRENNON GUAJARDOP Ot M54.41 LUMBAGO WITH SCIATICA, RIGHT SIDE 03/12/2018 BRENNON GUAJARDOP Ot Z68.41 BODY MASS INDEX (BMI) 40.0-44.9, ADULT 03/12/2018 CASANDRABRENNON RiggsP Ot Z79.51 RESIDENTIAL (CURRENT) USE OF INHALED STERO 03/12/2018 BRENNON GUAJARDOP Ot Z79.52 RESIDENTIAL (CURRENT) USE OF SYSTEMIC STER 03/12/2018 BRENNON GUAJARDOP Ot Z79.82 RESIDENTIAL (CURRENT) USE OF ASPIRIN 03/12/2018 BRENNON GUAJARDO SODA FOUNTAIN OPERATOR Ot Z82.49 FAMILY HX OF ISCHEM HEART DIS AND OTH DI 03/12/2018 BRENNON GUAJARDOP Ot Z87.19 PERSONAL HISTORY OF OTHER DISEASES OF TH 03/12/2018 BRENNON GUAJARDOP Ot Z87.448 PERSONAL HISTORY OF OTHER DISEASES OF UR 03/12/2018 BRENNON GUAJARDO SODA FOUNTAIN OPERATOR Ot Z88.0 ALLERGY STATUS TO PENICILLIN 03/12/2018 BRENNON GUAJARDO SODA FOUNTAIN OPERATOR Ot Z88.5 ALLERGY STATUS TO NARCOTIC AGENT STATUS 03/12/2018 BRENNON GUAJARDO SODA FOUNTAIN OPERATOR Ot Z88.8 ALLERGY STATUS TO OTH DRUG/MEDS/BIOL SUB 03/12/2018 BRENNON GUAJARDO SODA FOUNTAIN OPERATOR Ot Z90.710 ACQUIRED ABSENCE OF BOTH CERVIX AND UTER 03/12/2018 BRENNON GUAJARDO SODA FOUNTAIN OPERATOR Ot 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 OTHER ORGANS 03/12/2018 BRENNON GUAJARDO SODA FOUNTAIN OPERATOR Ot Z98.890 OTHER SPECIFIED POSTPROCEDURAL STATES 03/17/2018 BRENNON GUAJARDO SODA FOUNTAIN OPERATOR Ot E66.01 MORBID (SEVERE) OBESITY DUE TO EXCESS CA 03/17/2018 BRENNON GUAJARDO SODA FOUNTAIN OPERATOR Ot F32.9 MAJOR DEPRESSIVE DISORDER, SINGLE EPISOD 03/17/2018 CASANDRA BRENNON SODA FOUNTAIN OPERATOR Ot F41.9 ANXIETY DISORDER, UNSPECIFIED 03/17/2018 BRENNON GUAJARDO SODA FOUNTAIN OPERATOR Ot G40.909 EPILEPSY, UNSP, NOT INTRACTABLE, WITHOUT 03/17/2018 BRENNON GUAJARDO SODA FOUNTAIN OPERATOR Ot G47.9 SLEEP DISORDER, UNSPECIFIED 03/17/2018 CASANDRA BRENNON SODA FOUNTAIN OPERATOR Ot I10 ESSENTIAL (PRIMARY) HYPERTENSION 03/17/2018 BRENNON GUAJARDO SODA FOUNTAIN OPERATOR Ot J45.909 UNSPECIFIED ASTHMA, UNCOMPLICATED 03/17/2018 BRENNON GUAJARDOP Ot K21.9 GASTRO-ESOPHAGEAL REFLUX DISEASE WITHOUT 03/17/2018 BRENNON GUAJARDOP Ot T81.89XA OTH COMPLICATIONS OF PROCEDURES, NEC, IN 03/17/2018 BRENNON GUAJARDO Ot Z68.35 BODY MASS INDEX (BMI) 35.0-35.9, ADULT 03/17/2018 BRENNON GUAJARDOP Ot Z79.82 RESIDENTIAL (CURRENT) USE OF ASPIRIN 03/17/2018 BRENNON GUAJARDOP Ot Z86.19 PERSONAL HISTORY OF OTHER INFECTIOUS AND 03/17/2018 BRENNON GUAJARDO Ot Z87.42 PERSONAL HISTORY OF OTH DISEASES OF THE 03/17/2018 BRENNON GUAJARDO Ot Z88.0 ALLERGY STATUS TO PENICILLIN 03/17/2018 CASANDRABRENNON SODA FOUNTAIN OPERATOR Ot Z88.5 ALLERGY STATUS TO NARCOTIC AGENT STATUS 03/17/2018 CASANDRABRENNON SODA FOUNTAIN OPERATOR Ot Z88.8 ALLERGY STATUS TO OTH DRUG/MEDS/BIOL [...] 05/08/2018 MARCELLA FARRELL MD, Ot Z79. 51 AIRPORT SHUTTLE DRIVER (CURRENT) USE OF INHALED STERO 05/08/2018 MARCELLA FARRELL MD, Ot Z79. 52 AIRPORT SHUTTLE DRIVER (CURRENT) USE OF SYSTEMIC STER 05/08/2018 MARCELLA FARRELL MD, Ot Z79. 82 RESIDENTIAL (CURRENT) USE OF ASPIRIN 05/08/2018 MARCELLA FARRELL [...] OF RIGHT KNEE, INITIAL ENCOUNT 05/11/2018 MARCELLA FARRLEL MD Ot S80.02XA CONTUSION OF LEFT KNEE, INITIAL ENCOUNTE 05/11/2018 MARCELLA FARRELL MD Ot W10.8XXA FALL (ON) (FROM) OTHER STAIRS AND STEPS, 05/11/2018 MARCELLA FARRELL MD Ot Z79. 51 RESIDENTIAL (CURRENT) USE OF INHALED STERO 05/11/2018 MARCELLA FARRELL MD Ot Z79. 52 RESIDENTIAL (CURRENT) USE OF SYSTEMIC STER 05/11/2018 MARCELLA FARRELL MD, Ot Z79. 82 AIRPORT SHUTTLE DRIVER (CURRENT) USE OF ASPIRIN 05/11/2018 MARCELLA FARRELL [...] GASTRO-ESOPHAGEAL REFLUX DISEASE WITHOUT 07/05/2018 BRENNON GUAJARDO SODA FOUNTAIN OPERATOR Ot M25.551 PAIN IN RIGHT HIP 07/05/2018 BRENNON GUAJARDOP Ot M54.41 LUMBAGO WITH SCIATICA, RIGHT SIDE 07/05/2018 CASANDRABRENNON Riggs SODA FOUNTAIN OPERATOR Ot Z68.41 BODY MASS INDEX (BMI) 40.0-44.9, ADULT 07/05/2018 CASANDRABRENNON Riggs Ot Z79.51 RESIDENTIAL (CURRENT) USE OF INHALED STERO 07/05/2018 CASANDRABRENNON Riggs Ot Z79.52 AIRPORT SHUTTLE DRIVER (CURRENT) USE OF SYSTEMIC STER 07/05/2018 CASANDRABRENNON Riggs Ot Z79.82 RESIDENTIAL (CURRENT) USE OF ASPIRIN 07/05/2018 CASANDRABRENNON RiggsP Ot Z82.49 FAMILY HX OF ISCHEM HEART DIS AND OTH DI 07/05/2018 CASANDRABRENNON RiggsP Ot Z87.19 PERSONAL HISTORY OF OTHER DISEASES OF TH 07/05/2018 BRENNON GUAJARDO Ot Z87.448 PERSONAL HISTORY OF OTHER DISEASES OF UR 07/05/2018 CASANDRABRENNON RiggsP Ot Z88.0 ALLERGY STATUS TO PENICILLIN 07/05/2018 BRENNON GUAJARDO SODA FOUNTAIN OPERATOR Ot Z88.5 ALLERGY STATUS TO NARCOTIC AGENT STATUS 07/05/2018 BRENNON GUAJARDOP Ot Z88.8 ALLERGY STATUS TO [facility] DRUG/MEDS/BIOL SUB 07/05/2018 CASANDRA, BRENNON SODA FOUNTAIN OPERATOR Ot Z90.710 ACQUIRED ABSENCE OF BOTH CERVIX AND UTER 07/05/2018 BRENNON GUAJARDOP Ot 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 OTHER ORGANS 07/05/2018 BRENNON GUAJARDO SODA FOUNTAIN OPERATOR Ot Z98.890 OTHER SPECIFIED POSTPROCEDURAL STATES 07/07/2018 JOSE G JOYCE, SHAHNAZ Ybarra Ot L03.313 CELLULITIS OF CHEST WALL 07/07/2018 CAIO DENTON Ot E66.01 MORBID (SEVERE) OBESITY DUE TO EXCESS CA 07/07/2018 CAIO DENTON Ot F32.9 MAJOR DEPRESSIVE DISORDER, SINGLE EPISOD 07/07/2018 CAIO DETNON Ot F41.9 ANXIETY DISORDER, UNSPECIFIED 07/07/2018 CAIO [...] 40.0-44.9, ADULT 07/07/2018 CAIO DENTON Ot Z79.51 RESIDENTIAL (CURRENT) USE OF INHALED STERO 07/07/2018 CAIO [...] 40.0-44.9, ADULT 07/10/2018 CAIO DENTON Ot Z79.51 RESIDENTIAL (CURRENT) USE OF INHALED STERO 07/10/2018 CAIO [...] MARTHA COFFMAN Ot J43.9 EMPHYSEMA, UNSPECIFIED 12/29/2018 [place] MARTHA COFFMAN Ot J45.909 UNSPECIFIED ASTHMA, UNCOMPLICATED [...] Ot Z88.0 ALLERGY STATUS TO PENICILLIN 12/29/2018 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 05/24/2019 SHAHNAZ ARAIZA MD, [...] ABSENCE OF OTHER ORGANS 05/30/2019 PRIETO FONSECA ELECTRICAL SIGN WIRER HELPER Ot 724.2 LUMBAGO 05/30/2019 PRIETO FONSECA ELECTRICAL SIGN WIRER HELPER Ot 724.3 SCIATICA 05/30/2019 REYNALDO JOYCE, PAPITO [...] 06/07/2019 SHAHNAZ ARAIZA MD, Ot 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 ALLERGY STATUS TO OTH DRUG/MEDS/BIOL SUB 06/21/2019 [place] ONESIMO COFFMAN Ot Z90.710 ACQUIRED ABSENCE OF BOTH CERVIX AND UTER 06/21/2019 [place]OH[place] ONESIMO COFFAMN Ot Z90. 89 ACQUIRED ABSENCE OF OTHER [...] 06/22/2019 ONESIMO MOHAN DO Ot Z79.899 OTHER RESIDENTIAL (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 THERAPY 06/22/2019 ONESIMO MOHAN DO Ot Z80. 9 FAMILY HISTORY OF MALIGNANT NEOPLASM, UN 06/22/2019 [facility] Z83. 3 FAMILY HISTORY OF DIABETES MELLITUS 06/22/2019 [facility] Ot Z86. 73 PRSNL HX OF TIA (TIA), AND CEREB INFRC W 06/22/2019 [facility] Z88. 0 ALLERGY STATUS TO PENICILLIN 06/22/2019 [facility] Z88. 5 ALLERGY STATUS TO NARCOTIC AGENT STATUS 06/22/2019 [facility] Z88. 8 ALLERGY STATUS TO OTH DRUG/MEDS/BIOL SUB 06/22/2019 [facility] Z90.710 ACQUIRED ABSENCE OF BOTH CERVIX AND UTER 06/22/2019 [facility] Z90. 89 ACQUIRED ABSENCE OF OTHER ORGANS 06/24/2019 [facility] Z01.818 ENCOUNTER FOR OTHER PREPROCEDURAL EXAMIN 06/27/2019 PRIETO FONSECA ELECTRICAL SIGN WIRER HELPER Ot 724.2 LUMBAGO 06/27/2019 PRIETO FONSECA ELECTRICAL SIGN WIRER HELPER Ot 724.3 SCIATICA 06/27/2019 REYNALDO JOYCE, PAPITO [...] Ot L03.313 CELLULITIS OF CHEST WALL 06/27/2019 [facility] Ot M25.562 PAIN IN LEFT KNEE 06/27/2019 [facility] Ot M79.662 PAIN IN LEFT LOWER LEG 06/27/2019 [facility] M25.562 PAIN IN LEFT KNEE 06/27/2019 [facility] Ot M79.662 PAIN IN LEFT LOWER [...] MD, Ot M54 .9 DORSALGIA, UNSPECIFIED 06/28/2019 SHAHNAZ ARAIZA MD Ot M79.89 OTHER SPECIFIED SOFT TISSUE DISORDERS 06/28/2019 SHAHNAZ ARAIZA MD, Ot Z68.41 BODY MASS INDEX (BMI) 40.0-44.9, ADULT 06/28/2019 SHAHNAZ ARAIZA MD, Ot Z79.899 OTHER RESIDENTIAL (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 THERAPY 06/28/2019 SHAHNAZ ARAIZA MD, [...] Code Description [place] [id number] STRE P A (IN-HOUSE) 03/15/2012 [id number] FORE IGN BODY REMOVAL/SIMPLE 04/11/2012 30236 TB T EST INTRADERMAL 05/06/2012 62006 TB T EST INTRADERMAL 05/12/2012 94217 TB T EST INTRADERMAL 05/29/2012 GENERAL S RAN ARELLANO 08/23/2012 86268 US R ENAL ULTRASOUND, COMP 09/01/2012 47313 OXIMETRY 09/18/2012 21171 XRAY CHEST 2 VIEW 09/28/2012 50252 URIN E DRUG SCREEN (IN-HOUSE) 01/10/2013 62772 PSYC H DIAGNOSTIC EVALUATION 04/25/2013 40518 PSYT X PT&/FAMILY 45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
== END 2019-07-23 15:00 | disposition left against medical advice (07) | DRG 871 ==
LOC: EDUNIT# 03:47 → ER 03:49 → CSD 05:00 → OBSVTOIN 09:53 → ICU 09:54
PROVIDERS: ADMIT Internal Medicine; ATTEND Internal Medicine
PROC: 02HV33Z Insertion of Infusion Device into Superior Vena Cava, Percutaneous Approach (ICD-10-PCS; principal; 2019-07-22)
DX: A41.89 Other specified sepsis (principal); D70.3 Neutropenia due to infection; R65.21 Severe sepsis with septic shock; J18.9 Pneumonia, unspecified organism; I21.A1 Myocardial infarction type 2; E86.0 Dehydration; I10 Essential (primary) hypertension; K58.9 Irritable bowel syndrome, unspecified; G40.909 Epilepsy, unspecified, not intractable, without status epilepticus; K21.9 Gastro-esophageal reflux disease without esophagitis; E66.01 Morbid (severe) obesity due to excess calories; Z68.41 Body mass index [BMI] 40.0-44.9, adult; F41.9 Anxiety disorder, unspecified; F32.9 Major depressive disorder, single episode, unspecified; N32.81 Overactive bladder; F17.210 Nicotine dependence, cigarettes, uncomplicated; F12.90 Cannabis use, unspecified, uncomplicated; Z90.710 Acquired absence of both cervix and uterus; Z90.722 Acquired absence of ovaries, bilateral; Z90.89 Acquired absence of other organs
CPT/HCPCS: 36415; 71045; 71275; 80048; 80053; 80061; 80306; 81000; 82805; 82962; 83605; 83690; 83735; 83874; 83880; 84100; 84145; 84484; 85007; 85025; 85027; 85379; 85610; 85730; 87040; 87081; 87804; 93005; 93041; 93306; 93970; 94640; 94660

== ENCOUNTER 2019-10-27 21:36 | Emergency (ER) | payer OTHER ==
[2019-10-27] MEDS ORDERED: LORazepam INJ 2 MG/ML (ATIVAN) VIAL IVP ONE (21:45)
[2019-10-27] MEDS ORDERED: fentaNYL INJECTION 100 MCG/2 ML AMP IVP ONE (21:45)
[2019-10-27 21:55] LABS: BASOPHILS # (AUTO) 0.1 10^3/uL (0.0-0.1); BASOPHILS % (AUTO) 1 % (0-10); EOSINOPHILS # (AUTO) 0.1 10^3/uL (0.0-0.3); EOSINOPHILS % (AUTO) 1 % (0-10); HEMATOCRIT 37 % (35-52); HEMOGLOBIN 11.2 G/DL (11.5-16.0); LYMPHOCYTES # (AUTO) 1.9 X 10^3 (1.0-4.0); LYMPHOCYTES % (AUTO) 23 % (12-44); MEAN CORPUSCULAR HEMOGLOBIN 22 PG (25-34); MEAN CORPUSCULAR HGB CONC 31 G/DL (32-36); MEAN CORPUSCULAR VOLUME 73 FL (80-99); MEAN PLATELET VOLUME 10.1 FL (7.4-10.4); MONOCYTES # (AUTO) 1.1 X 10^3 (0.0-1.0); MONOCYTES % (AUTO) 13 % (0-12); NEUTROPHILS # (AUTO) 5.1 X 10^3 (1.8-7.8); NEUTROPHILS % (AUTO) 62 % (42-75); PLATELET COUNT 334 10^3/uL (130-400); RED CELL DISTRIBUTION WIDTH 20.8 % (10.0-14.5); WHITE BLOOD COUNT 8.3 10^3/uL (4.3-11.0)
[2019-10-27 22:03] LABS: ALBUMIN 3.9 GM/DL (3.2-4.5); CHLORIDE 106 MMOL/L (98-107); POTASSIUM 4.1 MMOL/L (3.6-5.0); SODIUM 138 MMOL/L (135-145)
--- OUTSIDE RECORDS SUMMARY | 2019-10-27 22:03 | XMS REPORT ---
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 [id number] [place] [address] Feb, [place] [address] [place] [id number] [place] [address] Feb, Essential (primary) hyperten danny I10 and Spider bite T63.301A [place] [address] [place] [id number] [place] [address] Jan, [place] [address] [address] Jan, 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 [place] [address] [address] Dec, 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 [place] [address] [address] Dec, Chronic pain disorder 338.4 [place] [address] [address] Dec, Toenail avulsion 893.0 [place] [address] [address] Dec, Generalized anxiety disorder 300.02 and Posttraumatic stress disorder 309.81 [place] [address] [place] [id number] [address] [place] [address] 07 Dec, 2014 Foot pain, right 729.5 ; Hyp ertension 401.9 and Chronic pain 338.29 [place] [address] [place] [id number] [place] [address] Nov, [facility] [address] [facility] [id number] [address] [place] [address] Nov, [facility] [address] [facility] [id number] [address] [place] [address] Oct, [facility] [address] [place] [id number] [address] [place] [address] Oct, [facility] [address] [place] [id number] [address] [place] [address] Oct, [facility] [address] [place] [id number] [address] [place] [address] Oct, [facility] [address] [place] [id number] [address] [place] [address] Oct, [facility] [address] [place] [id number] [address] [place] [address] Oct, Major depressive disorder, r ecurrent episode, unspecified 296.30 and Anxiety state 300.00 [facility] [address] [place] [id number] [address] [place] [address] Oct, Spider bite 989.5 [facility] [address] [place] [id number] [address] [place] [address] Oct, [facility] [address] [place] [id number] [address] [place] [address] September, Contact dermatitis 692.9 and Sciatica 724.3 [facility] [address] [place] [id number] [address] [place] [address] September, [facility] [address] [place] [id number] [address] [place] [address] September, Generalized anxiety disorder 300.02 ; Posttraumatic stress disorder 309.81 and Depression, major, recurrent, in partial remission 296.35 [facility] [address] [place] [id number] [address] [place] [address] September, Cellulitis 682.9 [facility] [address] [id number] [address] [place] [address], [place] [address] September, [facility] [address] [id number] [address] [place] [address], [place] [address] September, [facility] [address] [id number] [address] [place] [address], [place] [address] Aug, [facility] [address] [id number] [address] [place] [address], [place] [address] 29 Aug, 2014 [facility] [address] [id number] [address] [place] [address], [place] [address] Aug, [facility] [address] [id number] [address] [place] [address], [place] [address] Aug, [facility] [address] [id number] [address] [place] [address], [place] [address] Jul, [facility] [address] [id number] [address] [place] [address], [place] [address] Jul, [facility] [address] [id number] [address] [place] [address], [place] [address] Jul, [facility] [address] [id number] [address] [place] [address], [place] [address] Jul, [facility] [address] [id number] [address] [place] [address], [place] [address] Jul, [facility] [address] [id number] [address] [place] [address] Jul, [facility] [address] [id number] [address] [place] [address], [place] [address] Jul, [facility] [address] [id number] [address] [place] [address], [place] [address] Jul, [facility] [address] [id number] [address] [place] [address], [place] [address] Jul, [facility] [address] [id number] [address] [place] [address], [place] [id number] 05 Jul, 2014 [facility] [address] [id number] [address] [place] [address], [place] [address] Jul, 2014 [facility] [address] [id number] [address] [place] [address], [place] [address] Jul, 2014 [facility] [address] [id number] [address] [place] [address], [place] [address] Jul, [facility] [address] [id number] [address] [place] [address], [place] [address] Jul, [facility] [address] [id number] [address] [place] [address], [place] [address] Jul, [facility] [address] [id number] [address] [place] [address], [place] [address] Jun, [facility] [address] [id number] [address] [place] [address], [place] [address] Jun, [facility] [address] [id number] [address] [place] [address], [place] [address] Jun, [facility] [address] [id number] [address] [place] [address], [place] [address] Jun, [facility] [address] [id number] [address] [place] [address], [place] [address] Jun, [facility] [address] [id number] [address] [place] [address], [place] [address] Jun, [facility] [address] [id number] [address] [place] [address], [place] [address] Jun, [facility] [address] [id number] [address] [place] [address], [place] [address] Jun, [facility] [address] [id number] [address] [place] [address], [place] [address] Jun, 2014 [facility] [address] [id number] [address] [place] [address], [place] [address] Jun, 2014 [facility] [address] [id number] [address] [place] [address], [place] [address] Jun, 2014 [facility] [address] [id number] [address] [place] [address], [place] [address] Jun, 2014 [facility] [address] [id number] [address] [place] [address], [place] [address] Jun, 2014 [facility] [address] [id number] [address] [place] [address], [place] [address] Jun, 2014 [facility] [address] [id number] [address] [place] [address], [place] [address] Jun, 2014 [facility] [address] [id number] [address] [place] [address], [place] [address] 10 Jun, 2014 [facility] [address] [id number] [address] [place] [address], [place] [address] Jun, 2014 [facility] [address] [id number] [address] [place] [address], [place] [address] Jun, 2014 [facility] [address] [id number] [address] [place] [address], [place] [address] Jun, 2014 [facility] [address] [id number] [address] [place] [address], [place] [address] Jun, 2014 [facility] [address] [id number] [address] [place] [address], [place] [address] Jun, 2014 [facility] [address] [id number] [address] [place] [address], [place] [address] Jun, 2014 [facility] [address] [id number] [address] [place] [address], [place] [address] Jun, 2014 [facility] [address] [id number] [address] [place] [address], [place] [address] Jun, 2014 [facility] [address] [id number] [address] [place] [address], [place] [address] Jun, [facility] [address] [id number] [address] [place] [address], [place] [address] May, [facility] [address] [id number] [address] [place] [address], [place] [address] May, [facility] [address] [id number] [address] [place] [address], [place] [address] May, [facility] [address] [id number] [address] [place] [address], [place] [address] May, [facility] [address] [id number] [address] [place] [address], [place] [address] May, [facility] [address] [id number] [address] [place] [address], [place] [address] May, [facility] [address] [id number] [address] [place] [address], [place] [address] May, [facility] [address] [id number] [address] [place] [address], [place] [address] May, [facility] [address] [id number] [address] [place] [address], [place] [address] May, [facility] [address] [id number] [address] [place] [address], [place] [address] May, [facility] [address] [id number] [address] [place] [address], [place] [address] May, [facility] [address] [id number] [address] [place] [address] May, [facility] [address] [id number] [address] [place] [address], [place] [address] May, [facility] [address] [id number] [address] [place] [address] May, [facility] [address] [id number] [address] [place] [address], [place] [address] May, [facility] [address] [id number] [address] [place] [address], [place] [address] May, [facility] [address] [id number] [address] [place] [address], [place] [address] May, [facility] [address] [id number] [address] [place] [address], [place] [address] Apr, [facility] [address] [id number] [address] [place] [address], [place] [address] Apr, [facility] [address] [id number] [address] [place] [address], [place] [address] Apr, [facility] [address] [id number] [address] [place] [address], [place] [address] Apr, [facility] [address] [id number] [address] [place] [address], [place] [address] Mar, [facility] [address] [id number] [address] [place] [address], [place] [address] Mar, [facility] [address] [id number] [address] [place] [address], [place] [address] Mar, [facility] [address] [id number] [address] [place] [address], [place] [address] Mar, [facility] [address] [id number] [address] [place] [address], [place] [address] Mar, [facility] [address] [id number] [address] [place] [address], [place] [address] Mar, [facility] [address] [id number] [address] [place] [address], [place] [address] 16 Feb, 2014 [facility] [address] [id number] [address] [place] [address], [place] [address] Feb, [facility] [address] [id number] [address] [place] [address], [place] [address] 18 Jan, 2014 [facility] [address] [id number] [address] [place] [address], [place] [address] 18 Jan, 2014 [facility] [address] [id number] [address] [place] [address], [place] [address] Jan, [facility] [address] [id number] [address] [place] [address], [place] [id number] Jan, [facility] [address] [id number] [address] [place] [address], [place] [id number] Jan, [facility] [address] [id number] [address] [place] [address], [place] [id number] Jan, [facility] [address] [id number] [address] [place] [address], [place] [id number] Jan, [facility] [address] [id number] [address] [place] [address], [place] [id number] Jan, [facility] [address] [id number] [address] [place] [address], [place] [id number] Jan, [facility] [address] [id number] [address] [place] [address], [place] [id number] Jan, [facility] [address] [id number] [address] [place] [address], [place] [id number] Dec, [facility] [address] [id number] [address] [place] [address], [place] [id number] Dec, [facility] [address] [id number] [address] [place] [address], [place] [id number] Dec, [facility] [address] [id number] [address] [place] [address], [place] [id number] Dec, [facility] [address] [id number] [address] [place] [address], [place] [id number] Dec, [facility] [address] [id number] [address] [place] [address], [place] [id number] Dec, [facility] [address] [id number] [address] [place] [address], [place] [address] Dec, [facility] [address] [id number] [address] [place] [address], [place] [id number] Dec, [facility] [address] [id number] [address] [place] [address], [place] [id number] Dec, [facility] [address] [id number] [address] [place] [address], [place] [address] Nov, [facility] [address] [id number] [address] [place] [address], [place] [address] Nov, [facility] [address] [id number] [address] [place] [address], [place] [id number] Nov, [facility] [address] [id number] [address] [place] [address], [place] [id number] Nov, [facility] [address] [id number] [address] [place] [address], [place] [address] Nov, [facility] [address] [id number] [address] [place] [address], [place] [address] Nov, [facility] [address] [id number] [address] [place] [address], [place] [id number] Nov, [facility] [address] [id number] [address] [place] [address], [place] [id number] Nov, [facility] [address] [id number] [address] [place] [address], [place] [id number] Nov, [facility] [address] [id number] [address] [place] [address], [place] [address] Nov, [facility] [address] [id number] [address] [place] [address], [place] [address] Nov, [facility] [address] [id number] [address] [place] [address], [place] [id number] Nov, [facility] [address] [id number] [address] [place] [address], [place] [id number] Nov, [facility] [address] [id number] [address] [place] [address], [place] [address] Nov, [facility] [address] [id number] [address] [place] [address] Nov, [facility] [address] [id number] [address] [place] [address] Oct, [facility] [address] [id number] [address] [place] [address] Oct, [facility] [address] [id number] [address] [place] [address], [place] [id number] Oct, [facility] [address] [id number] [address] [place] [address], [place] [address] Oct, [facility] [address] [id number] [address] [place] [place] [address], [place] [address] Oct, [facility] [address] [id number] [address] [place] [address], [place] [address] Oct, [facility] [address] [id number] [address] [place] [address], [place] [address] Oct, [facility] [address] [id number] [address] [place] [address], [place] [address] Oct, [facility] [address] [id number] [address] [place] [address], [place] [address] Oct, [facility] [address] [id number] [address] [place] [address], [place] [address] Oct, [facility] [place] [facility] [address] [id number] [address] [place] [address], [place] [address] Oct, [facility] [address] [id number] [address] [place] [address], [place] [address] Oct, [facility] [place] [facility] [address] [id number] [address] [place] [address], [place] [address] Oct, [facility] [place] [facility] [address] [id number] [address] [place] [address], [place] [address] Oct, [facility] [address] [id number] [address] [place] [address], [place] [address] September, [facility] [address] [id number] [address] [place] [address], [place] [address] September, [facility] [address] [id number] [address] [place] [address], [place] [address] September, [facility] [address] [id number] [address] [place] [address], [place] [address] September, [facility] [address] [id number] [address] [place] [address], [place] [address] September, [facility] [address] [id number] [address] [place] [address], [place] [address] September, [facility] [address] [id number] [address] [place] [address], [place] [address] September, [facility] [address] [id number] [address] [place] [address], [place] [address] September, [facility] [address] [id number] [address] [place] [address], [place] [address] September, [facility] [address] [id number] [address] [place] [address], [place] [address] September, [facility] [address] [id number] [address] [place] [address], [place] [address] September, [facility] [address] [id number] [address] [place] [address], [place] [address] September, [facility] [address] [id number] [address] [place] [address], [place] [address] September, [facility] [address] [id number] [address] [place] [address], [place] [address] Aug, [facility] [place] [address] [id number] [address] [place] [address], [place] [address] Aug, [facility] [address] [id number] [address] [place] [address], [place] [address] Aug, [facility] [address] [id number] [address] [place] [address], [place] [address] Aug, [facility] [address] [id number] [address] [place] [address] Aug, [facility] [address] [id number] [address] [place] [address], [place] [address] Aug, [facility] [address] [id number] [address] [place] [address], [place] [address] Aug, [facility] [address] [id number] [address] [place] [address], [place] [address] Aug, [facility] [address] [id number] [address] [place] [address], [place] [address] Aug, [facility] [address] [id number] [address] [place] [address], [place] [address] Aug, [facility] [address] [id number] [address] [place] [address], [place] [address] Jul, [facility] [address] [id number] [address] [place] [address], [place] [address] Jul, [facility] [address] [id number] [address] [place] [address], [place] [address] Jul, [facility] [address] [id number] [address] [place] [address], [place] [address] Jul, [facility] [address] [id number] [address] [place] [address], [place] [address] Jul, [facility] [address] [id number] [address] [place] [address], [place] [address] Jul, [facility] [place] [address] [id number] [address] [place] [address], [place] [address] Jul, [facility] [place] [facility] [address] [id number] [address] [place] [address], [place] [address] Jul, [facility] [address] [id number] [address] [place] [address], [place] [address] Jun, [facility] [place] [facility] [address] [id number] [address] [place] [address] 27 Jun, 2013 [facility] [place] [facility] [address] [id number] [address] [place] [address], [place] [address] 14 Jun, 2013 [facility] [place] [facility] [address] [id number] [address] [place] [address], [place] [address] 14 Jun, 2013 [facility] [place] [facility] [address] [id number] [address] [place] [address], [place] [address] Jun, 2013 [facility] [place] [facility] [address] [id number] [address] [place] [address], [place] [address] Jun, 2013 [facility] [place] [facility] [address] [id number] [address] [place] [address], [place] [address] 06 Jun, 2013 [facility] [place] [facility] [address] [id number] [address] [place] [address], [place] [address] 06 Jun, 2013 [facility] [place] [facility] [address] [id number] [address] [place] [address], [place] [address] 04 Jun, 2013 [facility] [place] [facility] [address] [id number] [address] [place] [address], [place] [address] 04 Jun, 2013 [facility] [place] [facility] [address] [id number] [address] [place] [address], [place] [address] 03 Jun, 2013 [facility] [place] [facility] [address] [id number] [address] [place] [address], [place] [address] Jun, [facility] [place] [facility] [address] [id number] [address] [place] [address], [place] [address] Jun, [facility] [place] [facility] [address] [id number] [address] [place] [address], [place] [address] Jun, [facility] [place] [facility] [address] [id number] [address] [place] [address], [place] [address] May, [facility] [place] [facility] [address] [id number] [address] [place] [address], [place] [address] May, [facility] [place] [facility] [address] [id number] [address] [place] [address] May, [facility] [place] [address] [id number] [address] [place] [address], [place] [address] May, [facility] [address] [id number] [address] [place] [address], [place] [address] May, [facility] [address] [id number] [address] [place] [address], [place] [address] May, [facility] [address] [id number] [address] [place] [address], [place] [address] May, [facility] [address] [id number] [address] [place] [address], [place] [address] May, [facility] [address] [id number] [address] [place] [address], [place] [address] May, [facility] [address] [id number] [address] [place] [address], [place] [address] May, [facility] [place] [address] [id number] [address] [place] [address], [place] [address] May, [facility] [address] [id number] [address] [place] [address], [place] [address] May, [facility] [address] [id number] [address] [place] [address], [place] [address] May, [facility] [address] [id number] [address] [place] [address], [place] [address] May, [facility] [address] [id number] [address] [place] [address], [place] [address] May, [facility] [address] [id number] [address] [place] [address], [place] [address] May, [facility] [address] [id number] [address] [place] [address], [place] [address] May, [facility] [address] [id number] [address] [place] [address], [place] [address] May, [facility] [address] [id number] [address] [place] [address], [place] [address] May, [facility] [place] [address] [id number] [address] [place] [address], [place] [address] May, [facility] [address] [id number] [address] [place] [address], [place] [address] Apr, [facility] [place] [address] [id number] [address] [place] [address], [place] [address] Apr, [facility] [address] [id number] [address] [place] [address], [place] [address] Apr, [facility] [place] [address] [id number] [address] [place] [address], [place] [address] Apr, [facility] [address] [id number] [address] [place] [address], [place] [address] Apr, [facility] [address] [id number] [address] [place] [address], [place] [address] Apr, [facility] [address] [id number] [address] [place] [address], [place] [address] Apr, [facility] [address] [id number] [address] [place] [address], [place] [address] Apr, [facility] [address] [id number] [address] [place] [address], [place] [address] Apr, [facility] [address] [id number] [address] [place] [address], [place] [address] Apr, [facility] [address] [id number] [address] [place] [address], [place] [address] Apr, [facility] [address] [id number] [address] [place] [address], [place] [address] Apr, [facility] [address] [id number] [address] [place] [address], [place] [address] Apr, [facility] [place] [address] [id number] [address] [place] [id number] Apr, [facility] [address] [id number] [address] [place] [address], [place] [address] Apr, [facility] [address] [id number] [address] [place] [address] Apr, [facility] [address] [id number] [address] [place] [address], [place] [address] Apr, [facility] [address] [id number] [address] [place] [address] Apr, [facility] [address] [id number] [address] [place] [address], [place] [address] Mar, [facility] [address] [id number] [address] [place] [address], [place] [address] Mar, [facility] [address] [id number] [address] [place] [address] Mar, [facility] [address] [id number] [address] [place] [address], [place] [address] Mar, [facility] [address] [id number] [address] [place] [address] Mar, [facility] [address] [id number] [address] [place] [address], [place] [address] Mar, [facility] [address] [id number] [address] [place] [address] Mar, [facility] [address] [id number] [address] [place] [address] Mar, [facility] [address] [id number] [address] [place] [id number] Mar, [facility] [address] [id number] [address] [place] [id number] Mar, [facility] [address] [id number] [address] [place] [address], [place] [address] Mar, [facility] [place] [facility] [address] [id number] [address] [place] [address], [place] [address] Feb, [facility] [address] [id number] [address] [place] [address], [place] [address] Feb, [facility] [address] [id number] [address] [place] [address], [place] [address] Feb, [facility] [address] [id number] [address] [place] [address], [place] [address] Feb, [facility] [address] [id number] [address] [place] [address], [place] [address] Feb, [facility] [address] [id number] [address] [place] [address], [place] [address] Dec, [facility] [address] [id number] [address] [place] [address], [place] [address] Dec, [facility] [address] [id number] [address] [place] [address], [place] [address] Dec, [facility] [place] [address] [id number] [address] [place] [address], [place] [address] Dec, [facility] [address] [id number] [address] [place] [address], [place] [address] Nov, [facility] [address] [id number] [address] [place] [address], [place] [address] Nov, [facility] [address] [id number] [address] [place] [address], [place] [address] Nov, [facility] [address] [id number] [address] [place] [address], [place] [address] Nov, [facility] [address] [id number] [address] [place] [address], [place] [address] Nov, [facility] [address] [id number] [address] [place] [address], [place] [address] Nov, [facility] [address] [id number] [address] [place] [address], [place] [address] Oct, [facility] [place] [address] [id number] [address] [place] [address], [place] [address] Oct, [facility] [address] [id number] [address] [place] [address], [place] [address] Oct, [facility] [address] [id number] [address] [place] [address], [place] [address] Oct, [facility] [address] [id number] [address] [place] [address], [place] [address] September, [facility] [address] [id number] [address] [place] [address], [place] [address] September, [facility] [address] [id number] [address] [place] [address], [place] [address] September, [facility] [address] [id number] [address] [place] [address], [place] [address] September, [facility] [address] [id number] [address] [place] [address], [place] [address] September, [facility] [address] [id number] [address] [place] [address], [place] [address] September, [facility] [address] [id number] [address] [place] [address], [place] [address] September, [facility] [address] [id number] [address] [place] [address], [place] [address] September, [facility] [address] [id number] [address] [place] [address], [place] [address] Aug, [facility] [address] [id number] [address] [place] [address], [place] [address] Aug, [facility] [address] [id number] [address] [place] [address], [place] [address] Jul, [facility] [address] [id number] [address] [place] [address], [place] [address] Jun, [facility] [address] [id number] [address] [place] [address], [place] [address] 24 May, 2012 [facility] [address] [id number] [address] [place] [address], [place] [address] May, [facility] [address] [id number] [address] [place] [address], [place] [address] May, [facility] [address] [id number] [address] [place] [address], [place] [address] May, [facility] [address] [id number] [address] [place] [address], [place] [address] 28 Apr, 2012 [facility] [address] [id number] [address] [place] [address], [place] [address] Apr, [facility] [address] [id number] [address] [place] [address], [place] [address] Apr, [facility] [address] [id number] [address] [place] [address], [place] [address] Apr, [facility] [address] [id number] [address] [place] [address], [place] [address] Apr, [facility] [address] [id number] [address] [place] [address], [place] [address] Apr, [facility] [address] [id number] [address] [place] [address], [place] [address] 17 Apr, 2012 [facility] [address] [id number] [address] [place] [address], [place] [address] 14 Apr, 2012 [facility] [address] [id number] [address] [place] [address], [place] [address] Apr, [facility] [address] [id number] [address] [place] [address], [place] [address] 30 Mar, 2012 [facility] [address] [id number] [address] [place] [address], [place] [address] 30 Mar, 2012 [facility] [address] [id number] [address] [place] [address], [place] [id number] Mar, [facility] [address] [id number] [address] [place] [address], [place] [id number] 27 Mar, 2012 [facility] [address] [id number] [address] [place] [address], [place] [id number] 16 Mar, 2012 [facility] [address] [id number] [address] [place] [address], [place] [id number] 16 Mar, 2012 [facility] [address] [id number] [address] [place] [address], [place] [id number] 16 Mar, 2012 [facility] [address] [id number] [address] [place] [address], [place] [id number] 16 Mar, 2012 [facility] [address] [id number] [address] [place] [address], [place] [id number] 16 Mar, 2012 [facility] [address] [id number] [address] [place] [address], [place] [id number] 16 Mar, 2012 [facility] [address] [id number] [address] [place] [address], [place] [id number] 14 Mar, 2012 [facility] [address] [id number] [address] [place] [address], [place] [id number] 14 Mar, 2012 [facility] [address] [id number] [address] [place] [address], [place] [id number] 13 Mar, 2012 [facility] [address] [id number] [address] [place] [address], [place] [id number] 13 Mar, 2012 [facility] [address] [id number] [address] [place] [address], [place] [id number] 06 Mar, 2012 [facility] [address] [id number] [address] [place] [address], [place] [address] Mar, [facility] [address] [id number] [address] [place] [address], [place] [id number] 02 Mar, 2012 [facility] [address] [id number] [address] [place] [address], [place] [id number] 02 Mar, 2012 [facility] [address] [id number] [address] [place] [address], [place] [id number] Mar, [facility] [address] [id number] [address] [place] [address], [place] [address] Feb, [facility] [address] [id number] [address] [place] [address], [place] [id number] Feb, [facility] [address] [id number] [address] [place] [address], [place] [address] Feb, [facility] [address] [id number] [address] [place] [address], [place] [id number] Feb, [facility] [address] [id number] [address] [place] [address], [place] [id number] Jan, [facility] [address] [id number] [address] [place] [address], [place] [id number] Jan, [facility] [address] [id number] [address] [place] [address], [place] [id number] Dec, [facility] [address] [id number] [address] [place] [address], [place] [address] Dec, [facility] [address] [id number] [address] [place] [address], [place] [id number] Dec, [facility] [address] [id number] [address] [place] [address], [place] [id number] Nov, [facility] [address] [id number] [address] [place] [address], [place] [address] Nov, [facility] [address] [id number] [address] [place] [address], [place] [id number] Oct, [facility] [address] [id number] [address] [place] [address], [place] [id number] Oct, [facility] [address] [id number] [address] [place] [address], [place] [address] September, [facility] [address] [id number] [address] [place] [address], [place] [id number] September, [facility] [address] [id number] [address] [place] [address], [place] [address] September, [facility] [place] [address] [id number] [address] [place] [address], [place] [id number] September, [facility] [address] [id number] [address] [place] [address], [place] [address] Aug, [facility] [place] [address] [id number] [address] [place] [address], [place] [id number] Jul, [facility] [address] [id number] [address] [place] [address], [place] [address] Jul, [facility] [address] [id number] [address] [place] [address], [place] [address] Jun, [facility] [address] [id number] [address] [place] [address], [place] [address] Jun, [facility] [place] [address] [id number] [address] [place] [address], [place] [id number] Jun, [facility] [place] [address] [id number] [address] [place] [address], [place] [id number] May, [facility] [place] [address] [id number] [address] [place] [address], [place] [id number] May, [facility] [address] [id number] [address] [place] [address], [place] [id number] May, [facility] [place] [address] [id number] [address] [place] [address], [place] [id number] May, [facility] [place] [address] [id number] [address] [place] [address], [place] [id number] Apr, [facility] [address] [id number] [address] [place] [address], [place] [id number] Apr, [facility] [address] [id number] [address] [place] [address], [place] [id number] Apr, [facility] [address] [id number] [address] [place] [address], [place] [id number] Mar, [facility] [address] [id number] [address] [place] [address], [place] [id number] Mar, [facility] [address] [id number] [address] [place] [address], [place] [id number] Mar, [facility] [address] [id number] [address] [place] [address], [place] [id number] Mar, [facility] [address] [id number] [address] [place] [address], [place] [id number] Mar, [facility] [address] [id number] [address] [place] [address], [place] [id number] Feb, [facility] [address] [id number] [address] [place] [address], [place] [id number] Feb, [facility] [address] [id number] [address] [place] [address], [place] [id number] Feb, [facility] [address] [id number] [address] [place] [address], [place] [id number] Feb, [facility] [address] [id number] [address] [place] [address], [place] [id number] Feb, [facility] [address] [id number] [address] [place] [address], [place] [id number] Feb, [facility] [address] [id number] [address] [place] [address], [place] [id number] Feb, [facility] [address] [id number] [address] [place] [address], [place] [id number] 28 Apr, 2010 [facility] [address] [id number] [address] [place] [address], [place] [id number] 23 Apr, 2010 [facility] [address] [id number] [address] [place] [address], [place] [id number] 15 Apr, 2010 [facility] [address] [id number] [address] [place] [address], [place] [id number] 15 Apr, 2010 [facility] [address] [id number] [address] [place] [address] [place] [id number] 02 Apr, 2010 [facility] [address] [id number] [address] [place] [address], [place] [id number] Apr, [facility] [address] [id number] [address] [place] [address], [place] [address] Mar, [facility] [address] [id number] [address] [place] [address], [place] [id number] 18 Mar, 2010 [facility] [address] [id number] [address] [place] [address], [place] [id number] 17 Mar, 2010 [facility] [address] [id number] [address] [place] [address], [place] [id number] 16 Mar, 2010 [facility] [address] [id number] [address] [place] [address], [place] [id number] Mar, [facility] [address] [id number] [address] [place] [address], [place] [id number] Mar, [facility] [address] [id number] [address] [place] [address], [place] [address] Mar, [facility] [address] [id number] [address] [place] [address], [place] [id number] Mar, [facility] [address] [id number] [address] [place] [address], [place] [id number] Feb, [facility] [place] [address] [id number] [address] [place] [address], [place] [address] Feb, [facility] [address] [id number] [address] [place] [id number] Dec, [facility] [address] [id number] [address] [place] [address], [place] [address] Jun, [facility] [address] [id number] [address] [place] [address], [place] [id number] Jun, [facility] [address] [id number] [address] [place] [id number] May, [facility] [address] [id number] [address] [place] [id number] Feb, [facility] [address] [id number] [address] [place] [id number] Feb, [facility] [address] [id number] [address] [place] [id number] Feb, [facility] [address] [id number] [address] [place] [id number] Feb, [facility] [address] [id number] [address] [place] [id number] Feb, [facility] [address] [id number] [address] [place] [id number] Feb, [facility] [address] [facility] [id number] [address] [place] [id number] Feb, [facility] [address] [facility] [id number] [address] [place] [id number] Jul, [facility] [address] [facility] [id number] [address] [place] [id number] Jun, IMMUNIZATIONS No Known Immunizations SOCIAL HISTORY Never Assessed REASON FOR VISIT PLAN OF CARE VITAL SIGNS MEDICATIONS Unknown Medications RESULTS No Results PROCEDURES Procedure Date Ordered Result Body Site PSYTX PT&/FAMILY 45 MINUTES May 10, 2013 INSTRUCTIONS MEDICATIONS ADMINISTERED No Known Medications [...] Surgical History hysterectomy 03/2008 Surgical History oopherectomy/salpingectomy 1992 Surgical History Seizures possibly related to overdose/mi staking medications 2016 Surgical History right hand debridment 07/16/2016 Surgical History Right arm cellulitus 11/2016 Hospitalization History 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 7 Hospitalization History cellulitus Right elbow-[facility] 12/09/16
[2019-10-27 22:04] LABS: CALCIUM 9.4 MG/DL (8.5-10.1)
--- OUTSIDE RECORDS SUMMARY | 2019-10-27 22:04 | XMS REPORT ---
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 and Headache R51 [place] [id number] [place] [address] Feb, [address] [place] [address] Feb, [place] [id number] [place] [address] Feb, Essential (primary) hyperten danny I10 and Spider bite T63.301A [address] [place] [id number] [place] [address] Jan, [address] [address] Jan, 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 [address] [address] Dec, 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 [address] [address] Dec, Chronic pain disorder 338.4 [address] [address] 14 Dec, 2014 Toenail avulsion 893.0 [address] [address] 11 Dec, 2014 Generalized anxiety disorder 300.02 and Posttraumatic stress disorder 309.81 [address] [place] [id number] [place] [address] 07 Dec, 2014 Foot pain, right 729.5 ; Hyp ertension 401.9 and Chronic pain 338.29 [address] [facility] [id number] [address] [place] [address] Nov, [facility] [address] [facility] [id number] [address] [place] [address] Nov, [facility] [address] [facility] [id number] [address] [place] [address] Oct, [facility] [address] [facility] [id number] [address] [place] [address] Oct, [facility] [address] [facility] [id number] [address] [place] [address] Oct, [facility] [address] [facility] [id number] [address] [place] [address] Oct, [facility] [address] [id number] [address] [place] [address] Oct, [facility] [address] [id number] [address] [place] [address] Oct, Major depressive disorder, r ecurrent episode, unspecified 296.30 and Anxiety state 300.00 [facility] [address] [id number] [address] [place] [address] Oct, Spider bite 989.5 [facility] [address] [id number] [address] [place] [address] Oct, [facility] [id number] [address] [place] [address] September, Contact dermatitis 692.9 and Sciatica 724.3 [facility] [id number] [address] [place] [address] September, [facility] [id number] [address] [place] [address] September, Generalized anxiety disorder 300.02 ; Posttraumatic stress disorder 309.81 and Depression, major, recurrent, in partial remission 296.35 [facility] [id number] [address] [place] [address] September, Cellulitis 682.9 [facility] [address] [id number] [address] [place] [address], [place] [address] September, [facility] [address] [id number] [address] [place] [address] September, [facility] [address] [id number] [address] [place] [address], [place] [address] Aug, [facility] [address] [id number] [address] [place] [address], [place] [address] 29 Aug, 2014 [facility] [address] [id number] [address] [place] [address], [place] [address] 14 Aug, 2014 [facility] [address] [id number] [address] [place] [address], [place] [address] Aug, [facility] [address] [id number] [address] [place] [address] Jul, [facility] [address] [id number] [address] [place] [address] Jul, [facility] [address] [id number] [address] [place] [address], [place] [address] Jul, [facility] [address] [id number] [address] [place] [address] Jul, [facility] [address] [id number] [address] [place] [address], [place] [address] 24 Jul, 2014 [facility] [address] [id number] [address] [place] [address] Jul, [facility] [address] [id number] [address] [place] [address] Jul, [facility] [address] [id number] [address] [place] [address] 19 Jul, 2014 [facility] [address] [id number] [address] [place] [address] Jul, [facility] [address] [id number] [address] [place] [address], [place] [address] 05 Jul, 2014 [facility] [address] [id number] [address] [place] [address], [place] [address] 05 Jul, 2014 [facility] [address] [id number] [address] [place] [address], [place] [address] 04 Jul, 2014 [facility] [address] [id number] [address] [place] [address], [place] [address] 04 Jul, 2014 [facility] [address] [id number] [address] [place] [address], [place] [address] Jul, 2014 [facility] [address] [id number] [address] [place] [address], [place] [address] Jul, 2014 [facility] [address] [id number] [address] [place] [address], [place] [address] Jun, [facility] [address] [id number] [address] [place] [address], [place] [address] Jun, [facility] [address] [id number] [address] [place] [address], [place] [address] Jun, [facility] [address] [id number] [address] [place] [address], [place] [address] Jun, [facility] [address] [id number] [address] [place] [address], [place] [address] Jun, [facility] [address] [id number] [address] [place] [address], [place] [address] Jun, [facility] [address] [id number] [address] [place] [address], [place] [address] Jun, [facility] [address] [id number] [address] [place] [address], [place] [address] Jun, [facility] [address] [id number] [address] [place] [address], [place] [address] Jun, [facility] [address] [id number] [address] [place] [address], [place] [address] Jun, 2014 [facility] [address] [id number] [address] [place] [address], [place] [address] Jun, 2014 [facility] [address] [id number] [address] [place] [address], [place] [address] 17 Jun, 2014 [facility] [address] [id number] [address] [place] [address], [place] [address] Jun, 2014 [facility] [address] [id number] [address] [place] [address], [place] [address] Jun, 2014 [facility] [address] [id number] [address] [place] [address], [place] [address] Jun, 2014 [facility] [address] [id number] [address] [place] [address], [place] [address] Jun, 2014 [facility] [address] [id number] [address] [place] [address], [place] [address] Jun, 2014 [facility] [address] [id number] [address] [place] [address], [place] [address] Jun, 2014 [facility] [address] [id number] [address] [place] [address], [place] [address] Jun, 2014 [facility] [address] [id number] [address] [place] [address] Jun, 2014 [facility] [address] [id number] [address] [place] [address] Jun, 2014 [facility] [address] [id number] [address] [place] [address], [place] [address] Jun, 2014 [facility] [address] [id number] [address] [place] [address], [place] [address] Jun, 2014 [facility] [address] [id number] [address] [place] [address] Jun, 2014 [facility] [address] [id number] [address] [place] [address] Jun, [facility] [address] [id number] [address] [place] [address], [place] [address] May, [facility] [address] [id number] [address] [place] [address] May, [facility] [address] [id number] [address] [place] [address], [place] [address] May, [facility] [address] [id number] [address] [place] [address] May, [facility] [address] [id number] [address] [place] [address], [place] [address] May, [facility] [address] [id number] [address] [place] [address], [place] [address] May, [facility] [address] [id number] [address] [place] [address] May, [facility] [address] [id number] [address] [place] [address], [place] [address] May, [facility] [address] [id number] [address] [place] [address] May, [facility] [address] [id number] [address] [place] [address] May, [facility] [address] [id number] [address] [place] [address] May, [facility] [address] [id number] [address] [place] [address] May, [facility] [address] [id number] [address] [place] [address] May, [facility] [address] [id number] [address] [place] [address] May, [facility] [address] [id number] [address] [place] [address], [place] [address] May, [facility] [address] [id number] [address] [place] [address], [place] [address] May, [facility] [address] [id number] [address] [place] [address], [place] [address] May, [facility] [address] [id number] [address] [place] [address], [place] [address] Apr, [facility] [address] [id number] [address] [place] [address], [place] [address] Apr, [facility] [address] [id number] [address] [place] [address], [place] [address] Apr, [facility] [address] [id number] [address] [place] [address], [place] [address] Apr, [facility] [address] [id number] [address] [place] [address], [place] [address] Mar, [facility] [address] [id number] [address] [place] [address], [place] [address] Mar, [facility] [address] [id number] [address] [place] [address], [place] [address] Mar, [facility] [address] [id number] [address] [place] [address], [place] [address] Mar, [facility] [address] [id number] [address] [place] [address], [place] [address] Mar, [facility] [address] [id number] [address] [place] [address], [place] [address] Mar, [facility] [address] [id number] [address] [place] [address], [place] [address] Feb, [facility] [address] [id number] [address] [place] [address], [place] [address] Feb, [facility] [address] [id number] [address] [place] [address], [place] [address] 18 Jan, 2014 [facility] [address] [id number] [address] [place] [address], [place] [address] Jan, [facility] [address] [id number] [address] [place] [address], [place] [address] Jan, [facility] [address] [id number] [address] [place] [address], [place] [address] Jan, [facility] [address] [id number] [address] [place] [address], [place] [address] Jan, [facility] [address] [id number] [address] [place] [address], [place] [address] Jan, [facility] [address] [id number] [address] [place] [address], [place] [id number] Jan, [facility] [address] [id number] [address] [place] [address], [place] [address] Jan, [facility] [address] [id number] [address] [place] [address], [place] [address] Jan, [facility] [address] [id number] [address] [place] [address], [place] [address] Jan, [facility] [address] [id number] [address] [place] [address], [place] [address] Dec, [facility] [address] [id number] [address] [place] [address], [place] [address] Dec, [facility] [address] [id number] [address] [place] [address], [place] [address] Dec, [facility] [address] [id number] [address] [place] [address], [place] [address] Dec, [facility] [address] [id number] [address] [place] [address], [place] [address] Dec, [facility] [address] [id number] [address] [place] [address], [place] [address] Dec, [facility] [address] [id number] [address] [place] [address], [place] [address] Dec, [facility] [address] [id number] [address] [place] [address], [place] [address] Dec, [facility] [address] [id number] [address] [place] [address], [place] [address] Dec, [facility] [address] [id number] [address] [place] [address], [place] [address] Nov, [facility] [address] [id number] [address] [place] [address], [place] [address] Nov, [facility] [address] [id number] [address] [place] [address], [place] [address] Nov, [facility] [address] [id number] [address] [place] [address], [place] [address] Nov, [facility] [address] [id number] [address] [place] [address], [place] [address] Nov, [facility] [address] [id number] [address] [place] [address], [place] [address] Nov, [facility] [address] [id number] [address] [place] [address], [place] [address] Nov, [facility] [address] [id number] [address] [place] [address], [place] [address] Nov, [facility] [address] [id number] [address] [place] [address], [place] [address] Nov, [facility] [address] [id number] [address] [place] [address], [place] [address] Nov, [facility] [address] [id number] [address] [place] [address], [place] [address] Nov, [facility] [address] [id number] [address] [place] [address], [place] [address] Nov, [facility] [address] [id number] [address] [place] [address], [place] [address] Nov, [facility] [address] [id number] [address] [place] [address], [place] [address] Nov, [facility] [address] [id number] [facility] [place] [address] Nov, [facility] [address] [id number] [address] [place] [address] Oct, [facility] [address] [id number] [address] [place] [address] Oct, [facility] [address] [id number] [address] [place] [address], [place] [address] Oct, [facility] [address] [id number] [address] [place] [address], [place] [address] Oct, [facility] [address] [id number] [address] [place] [address], [place] [address] Oct, [facility] [address] [id number] [address] [place] [address], [place] [address] Oct, [facility] [address] [id number] [address] [place] [address], [place] [address] Oct, [facility] [address] [id number] [address] [place] [address], [place] [address] Oct, [facility] [address] [id number] [address] [place] [address], [place] [address] Oct, [facility] [address] [id number] [address] [place] [address], [place] [address] Oct, [facility] [address] [id number] [address] [place] [address], [place] [address] Oct, [facility] [address] [id number] [address] [place] [address], [place] [address] Oct, [facility] [address] [id number] [address] [place] [address], [place] [address] Oct, [facility] [address] [id number] [address] [place] [address], [place] [address] 04 Oct, 2013 [facility] [address] [id number] [address] [place] [address], [place] [address] September, [facility] [address] [id number] [facility] [place] [address] September, [facility] [address] [id number] [address] [place] [address], [place] [address] September, [facility] [address] [id number] [address] [place] [address], [place] [address] September, [facility] [address] [id number] [address] [place] [address], [place] [address] September, [facility] [address] [id number] [address] [place] [address], [place] [address] September, [facility] [address] [id number] [address] [place] [address], [place] [address] September, [facility] [address] [id number] [address] [place] [address], [place] [address] September, [facility] [address] [id number] [address] [place] [address], [place] [address] September, [facility] [address] [id number] [address] [place] [address], [place] [address] September, [facility] [address] [id number] [address] [place] [address], [place] [address] September, [facility] [address] [id number] [address] [place] [address], [place] [address] September, [facility] [address] [id number] [address] [place] [address], [place] [address] September, [facility] [address] [id number] [address] [place] [address], [place] [address] Aug, [facility] [address] [id number] [address] [place] [address], [place] [address] Aug, [facility] [address] [id number] [address] [place] [address], [place] [address] Aug, [facility] [address] [id number] [facility] [place] [address] Aug, [facility] [address] [id number] [facility] [place] [address] Aug, [facility] [address] [id number] [facility] [place] [address] Aug, [facility] [address] [id number] [address] [place] [address], [place] [address] Aug, [facility] [address] [id number] [address] [place] [address], [place] [address] Aug, [facility] [address] [id number] [address] [place] [address], [place] [address] Aug, [facility] [address] [id number] [address] [place] [address], [place] [address] Aug, [facility] [address] [id number] [address] [place] [address], [place] [address] Jul, [facility] [address] [id number] [address] [place] [address], [place] [address] Jul, [facility] [address] [id number] [address] [place] [address], [place] [address] Jul, [facility] [address] [id number] [address] [place] [address], [place] [address] Jul, [facility] [address] [id number] [address] [place] [address], [place] [address] Jul, [facility] [address] [id number] [address] [place] [address], [place] [address] Jul, [facility] [address] [id number] [address] [place] [address], [place] [address] Jul, [facility] [address] [id number] [address] [place] [address], [place] [address] Jul, [facility] [address] [id number] [address] [place] [address], [place] [address] Jun, [facility] [address] [id number] [facility] [place] [address] Jun, [facility] [address] [id number] [address] [place] [address], [place] [address] 14 Jun, 2013 [facility] [address] [id number] [address] [place] [address], [place] [address] 14 Jun, 2013 [facility] [address] [id number] [address] [place] [address], [place] [address] Jun, [facility] [address] [id number] [address] [place] [address], [place] [address] Jun, [facility] [address] [id number] [address] [place] [address], [place] [address] 06 Jun, 2013 [facility] [address] [id number] [address] [place] [address], [place] [address] 06 Jun, 2013 [facility] [address] [id number] [address] [place] [address], [place] [address] 04 Jun, 2013 [facility] [address] [id number] [address] [place] [address], [place] [address] 04 Jun, 2013 [facility] [address] [id number] [address] [place] [address], [place] [address] Jun, [facility] [address] [id number] [address] [place] [address], [place] [address] Jun, [facility] [address] [id number] [address] [place] [address], [place] [address] Jun, [facility] [address] [id number] [address] [place] [address], [place] [address] Jun, [facility] [address] [id number] [address] [place] [address], [place] [address] May, [facility] [address] [id number] [address] [place] [address], [place] [address] May, [facility] [address] [id number] [address] [place] [address], [place] [address] May, [facility] [address] [id number] [address] [place] [address], [place] [address] May, [facility] [address] [id number] [address] [place] [address], [place] [address] May, [facility] [address] [id number] [address] [place] [address], [place] [address] May, [facility] [address] [id number] [address] [place] [address], [place] [address] May, [facility] [address] [id number] [address] [place] [address], [place] [address] May, [facility] [address] [id number] [address] [place] [address], [place] [address] May, [facility] [address] [id number] [address] [place] [address], [place] [address] May, [facility] [address] [id number] [address] [place] [address], [place] [address] May, [facility] [address] [id number] [address] [place] [address], [place] [address] May, [facility] [address] [id number] [address] [place] [address], [place] [address] May, [facility] [address] [id number] [address] [place] [address], [place] [address] May, [facility] [address] [id number] [address] [place] [address], [place] [address] May, [facility] [address] [id number] [address] [place] [address], [place] [address] May, [facility] [address] [id number] [address] [place] [address], [place] [address] May, [facility] [address] [id number] [address] [place] [address], [place] [address] May, [facility] [address] [id number] [address] [place] [address], [place] [address] May, [facility] [address] [id number] [address] [place] [address], [place] [address] May, [facility] [address] [id number] [address] [place] [address], [place] [address] Apr, [facility] [address] [id number] [address] [place] [address], [place] [address] Apr, [facility] [address] [id number] [address] [place] [address], [place] [address] Apr, [facility] [address] [id number] [address] [place] [address], [place] [address] Apr, [facility] [address] [id number] [address] [place] [address], [place] [address] Apr, [facility] [address] [id number] [address] [place] [address], [place] [address] Apr, [facility] [address] [id number] [address] [place] [address], [place] [address] Apr, [facility] [address] [id number] [address] [place] [address], [place] [address] Apr, [facility] [address] [id number] [address] [place] [address], [place] [address] Apr, [facility] [address] [id number] [address] [place] [address], [place] [address] Apr, [facility] [address] [id number] [address] [place] [address], [place] [address] Apr, [facility] [address] [id number] [address] [place] [address], [place] [address] Apr, [facility] [address] [id number] [address] [place] [address], [place] [address] Apr, [facility] [address] [id number] [address] [place] [address], [place] [address] Apr, [facility] [address] [id number] [address] [place] [address], [place] [address] 05 Apr, 2013 [facility] [address] [id number] [address] [place] [address], [place] [address] Apr, [facility] [address] [id number] [address] [place] [address], [place] [address] Apr, [facility] [address] [id number] [address] [place] [address], [place] [address] Apr, [facility] [address] [id number] [address] [place] [address], [place] [address] Mar, [facility] [address] [id number] [address] [place] [address], [place] [address] Mar, [facility] [address] [id number] [address] [place] [address], [place] [address] Mar, [facility] [address] [id number] [address] [place] [address], [place] [address] Mar, [facility] [address] [id number] [address] [place] [address], [place] [address] Mar, [facility] [address] [id number] [address] [place] [address], [place] [address] Mar, [facility] [address] [id number] [address] [place] [address], [place] [address] Mar, [facility] [address] [id number] [address] [place] [address], [place] [address] Mar, [facility] [address] [id number] [address] [place] [address], [place] [address] Mar, [facility] [address] [id number] [address] [place] [address], [place] [address] Mar, [facility] [address] [id number] [address] [place] [address] Mar, [facility] [address] [id number] [address] [place] [address], [place] [address] Feb, [facility] [address] [id number] [address] [place] [address], [place] [address] Feb, [facility] [address] [id number] [address] [place] [address], [place] [address] Feb, [facility] [address] [id number] [address] [place] [address], [place] [address] Feb, [facility] [address] [id number] [address] [place] [address], [place] [address] Feb, [facility] [address] [id number] [address] [place] [address], [place] [address] Dec, [facility] [address] [id number] [address] [place] [address], [place] [address] Dec, [facility] [address] [id number] [address] [place] [address], [place] [address] Dec, [facility] [address] [id number] [address] [place] [address], [place] [address] Dec, [facility] [address] [id number] [address] [place] [address], [place] [address] Nov, [facility] [address] [id number] [address] [place] [address], [place] [address] Nov, [facility] [address] [id number] [address] [place] [address], [place] [address] Nov, [facility] [address] [id number] [address] [place] [address], [place] [address] Nov, [facility] [address] [id number] [address] [place] [address], [place] [address] Nov, [facility] [address] [id number] [address] [place] [address], [place] [address] Nov, [facility] [address] [id number] [address] [place] [address], [place] [address] 30 Oct, 2012 [facility] [address] [id number] [address] [place] [address], [place] [address] Oct, [facility] [address] [id number] [address] [place] [address], [place] [address] Oct, [facility] [address] [id number] [address] [place] [address], [place] [address] Oct, [facility] [address] [id number] [address] [place] [address], [place] [address] September, [facility] [address] [id number] [address] [place] [address], [place] [address] September, [facility] [address] [id number] [address] [place] [address], [place] [address] September, [facility] [address] [id number] [address] [place] [address], [place] [address] September, [facility] [address] [id number] [address] [place] [address], [place] [address] September, [facility] [address] [id number] [address] [place] [address], [place] [address] September, [facility] [address] [id number] [address] [place] [address], [place] [address] September, [facility] [address] [id number] [address] [place] [address], [place] [address] September, [facility] [address] [id number] [address] [place] [address], [place] [address] Aug, [facility] [address] [id number] [address] [place] [address], [place] [address] Aug, [facility] [address] [id number] [address] [place] [address], [place] [address] Jul, [facility] [address] [id number] [address] [place] [address], [place] [address] Jun, [facility] [address] [id number] [address] [place] [address], [place] [address] 24 May, 2012 [facility] [address] [id number] [address] [place] [address], [place] [address] May, [facility] [address] [id number] [address] [place] [address], [place] [address] May, [facility] [address] [id number] [address] [place] [address], [place] [address] May, [facility] [address] [id number] [address] [place] [address], [place] [address] Apr, [facility] [address] [id number] [address] [place] [address], [place] [address] Apr, [facility] [address] [id number] [address] [place] [address], [place] [address] Apr, [facility] [address] [id number] [address] [place] [address], [place] [address] Apr, [facility] [address] [id number] [address] [place] [address], [place] [address] Apr, [facility] [address] [id number] [address] [place] [address], [place] [address] Apr, [facility] [address] [id number] [address] [place] [address], [place] [address] 17 Apr, 2012 [facility] [address] [id number] [address] [place] [address], [place] [address] 14 Apr, 2012 [facility] [address] [id number] [address] [place] [address], [place] [address] Apr, [facility] [address] [id number] [address] [place] [address], [place] [address] 30 Mar, 2012 [facility] [address] [id number] [address] [place] [address], [place] [address] 30 Mar, 2012 [facility] [address] [id number] [address] [place] [address], [place] [address] Mar, [facility] [address] [id number] [address] [place] [address], [place] [address] 27 Mar, 2012 [facility] [address] [id number] [address] [place] [address], [place] [address] 16 Mar, 2012 [facility] [address] [id number] [address] [place] [address], [place] [address] 16 Mar, 2012 [facility] [address] [id number] [address] [place] [address], [place] [address] 16 Mar, 2012 [facility] [address] [id number] [address] [place] [address], [place] [address] 16 Mar, 2012 [facility] [address] [id number] [address] [place] [address], [place] [address] 16 Mar, 2012 [facility] [address] [id number] [address] [place] [address], [place] [address] 16 Mar, 2012 [facility] [address] [id number] [address] [place] [address], [place] [address] 14 Mar, 2012 [facility] [address] [id number] [address] [place] [address], [place] [address] 14 Mar, 2012 [facility] [address] [id number] [address] [place] [id number] 13 Mar, 2012 [facility] [address] [id number] [address] [place] [address], [place] [address] 13 Mar, 2012 [facility] [address] [id number] [address] [place] [id number] 06 Mar, 2012 [facility] [address] [id number] [address] [place] [address], [place] [address] Mar, [facility] [address] [id number] [address] [place] [address], [place] [address] 02 Mar, 2012 [facility] [address] [id number] [address] [place] [address], [place] [address] 02 Mar, 2012 [facility] [address] [id number] [address] [place] [address] Mar, [facility] [address] [id number] [address] [place] [address], [place] [address] Feb, [facility] [address] [id number] [address] [place] [address], [place] [address] Feb, [facility] [address] [id number] [address] [place] [address], [place] [address] Feb, [facility] [address] [id number] [address] [place] [address], [place] [address] Feb, [facility] [address] [id number] [address] [place] [address], [place] [address] Jan, [facility] [address] [id number] [address] [place] [address], [place] [address] Jan, [facility] [address] [id number] [address] [place] [address], [place] [address] Dec, [facility] [address] [id number] [address] [place] [address], [place] [address] Dec, [facility] [address] [id number] [address] [place] [address], [place] [address] Dec, [facility] [address] [id number] [address] [place] [address], [place] [address] Nov, [facility] [address] [id number] [address] [place] [address], [place] [address] Nov, [facility] [address] [id number] [address] [place] [address], [place] [address] Oct, [facility] [address] [id number] [address] [place] [address], [place] [address] Oct, [facility] [address] [id number] [address] [place] [address], [place] [address] September, [facility] [address] [id number] [address] [place] [address], [place] [address] September, [facility] [address] [id number] [address] [place] [address], [place] [address] September, [facility] [address] [id number] [address] [place] [address], [place] [address] September, [facility] [address] [id number] [address] [place] [address], [place] [address] Aug, [facility] [address] [id number] [address] [place] [address], [place] [address] Jul, [facility] [address] [id number] [address] [place] [address], [place] [address] Jul, [facility] [address] [id number] [address] [place] [address], [place] [address] Jun, [facility] [address] [id number] [address] [place] [address], [place] [address] Jun, [facility] [address] [id number] [address] [place] [address], [place] [address] Jun, [facility] [address] [id number] [address] [place] [address], [place] [address] May, [facility] [address] [id number] [address] [place] [address], [place] [address] May, [facility] [address] [id number] [address] [place] [address], [place] [address] May, [facility] [address] [id number] [address] [place] [address], [place] [address] May, [facility] [address] [id number] [address] [place] [address], [place] [address] Apr, [facility] [address] [id number] [address] [place] [address], [place] [address] Apr, [facility] [address] [id number] [address] [place] [address], [place] [address] Apr, [facility] [address] [id number] [place] [address] Mar, [facility] [address] [id number] [address] [place] [address], [place] [address] Mar, [facility] [address] [id number] [address] [place] [address], [place] [address] Mar, [facility] [address] [id number] [address] [place] [address], [place] [address] Mar, [facility] [address] [id number] [address] [place] [address] Mar, [facility] [address] [id number] [address] [place] [address], [place] [address] Feb, [facility] [address] [id number] [address] [place] [address] Feb, [facility] [address] [id number] [address] [place] [address], [place] [address] Feb, [facility] [address] [id number] [address] [place] [address] Feb, [facility] [address] [id number] [address] [place] [address] Feb, [facility] [address] [id number] [address] [place] [address] Feb, [facility] [address] [id number] [address] [place] [address] Feb, [facility] [address] [id number] [address] [place] [id number] 28 Apr, 2010 [facility] [address] [id number] [address] [place] [address], [place] [phone] Apr, [facility] [address] [id number] [address] [place] [address], [place] [phone] 15 Apr, 2010 [facility] [address] [id number] [address] [place] [address], [place] [id number] 15 Apr, 2010 [facility] [address] [id number] [address] [place] [address], [place] [id number] 02 Apr, 2010 [facility] [address] [id number] [address] [place] [address], [place] [id number] Apr, [facility] [address] [id number] [address] [place] [address], [place] [phone] 18 Mar, 2010 [facility] [address] [id number] [address] [place] [address], [place] [id number] 18 Mar, 2010 [facility] [address] [id number] [address] [place] [address], [place] [phone] 17 Mar, 2010 [facility] [address] [id number] [address] [place] [address], [place] [id number] 16 Mar, 2010 [facility] [address] [id number] [address] [place] [address], [place] [phone] Mar, [facility] [address] [id number] [address] [place] [address], [place] [id number] Mar, [facility] [address] [id number] [address] [place] [address], [place] [phone] Mar, [facility] [address] [id number] [address] [place] [address], [place] [phone] Mar, [facility] [address] [id number] [address] [place] [address], [place] [address] Feb, [facility] [address] [id number] [address] [place] [address], [place] [id number] Feb, [facility] [address] [id number] [address] [place] [address], [place] [id number] Dec, [facility] [address] [id number] [address] [place] [address], [place] [address] Jun, [facility] [address] [id number] [address] [place] [address], [place] [address] Jun, [facility] [address] [id number] [address] [place] [address], [place] [address] May, [facility] [address] [id number] [address] [place] [phone] Feb, [facility] [address] [id number] [address] [place] [phone] Feb, [facility] [address] [id number] [address] [place] [phone] Feb, [facility] [address] [id number] [address] [place] [phone] Feb, [facility] [address] [id number] [address] [place] [phone] Feb, [facility] [address] [id number] [address] [place] [phone] Feb, [facility] [address] [id number] [address] [place] [phone] Feb, [facility] [address] [id number] [address] [place] [phone] Jul, [facility] [address] [id number] [address] [place] [phone] Jun, IMMUNIZATIONS No Known Immunizations SOCIAL HISTORY Never Assessed REASON FOR VISIT PLAN OF CARE VITAL SIGNS Height 66 in 2013-04-18 Weight 276.44 lbs 2013-04-18 Temperature 98.4 degrees Fahrenheit 2013-04-18 Heart Rate 84 bpm 2013-04-18 Respiratory Rate 22 2013-04-18 Blood pressure systolic 164 mmHg 2013-04-18 Blood pressure diastolic 92 mmHg 2013-04-18 MEDICATIONS Unknown Medications RESULTS No Results PROCEDURES [...] 08/2014 Hospitalization History Rt hand post op infection-H 7 Hospitalization History cellulitus Right elbow-[facility] 12/09/16
--- OUTSIDE RECORDS SUMMARY | 2019-10-27 22:04 | XMS REPORT ---
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 Feb, Essential (primary) hyperten danny I10 and Spider bite T63.301A [place] [address] [address] Jan, [place] [address] [address] Jan, 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 [place] [address] [address] Dec, 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 [place] [address] [address] Dec, Chronic pain disorder 338.4 [place] [address] [address] 14 Dec, 2014 Toenail avulsion 893.0 [place] [address] [address] Dec, Generalized anxiety disorder 300.02 and Posttraumatic stress disorder 309.81 [place] [address] [address] 07 Dec, 2014 Foot pain, right 729.5 ; Hyp ertension 401.9 and Chronic pain 338.29 [facility] [address] [facility] [id number] [address] [place] [address] Nov, [facility] [address] [facility] [id number] [address] [place] [address] Nov, [facility] [address] [facility] [id number] [address] [place] [address] Oct, [facility] [address] [facility] [id number] [address] [place] [address] Oct, [facility] [address] [facility] [id number] [address] [place] [address] Oct, [facility] [address] [facility] [id number] [address] [place] [address] Oct, [facility] [address] [place] [id number] [address] [place] [address] Oct, [facility] [address] [place] [id number] [address] [place] [address] Oct, Major depressive disorder, r ecurrent episode, unspecified 296.30 and Anxiety state 300.00 [facility] [address] [place] [id number] [address] [place] [address] Oct, Spider bite 989.5 [facility] [address] [place] [id number] [address] [place] [address] Oct, [facility] [address] [place] [id number] [address] [place] [address] September, Contact dermatitis 692.9 and Sciatica 724.3 [facility] [address] [place] [id number] [address] [place] [address] September, [facility] [address] [place] [id number] [address] [place] [address] September, Generalized anxiety disorder 300.02 ; Posttraumatic stress disorder 309.81 and Depression, major, recurrent, in partial remission 296.35 [facility] [address] [place] [id number] [address] [place] [address] September, Cellulitis 682.9 [facility] [address] [id number] [address] [place] [address], [place] [address] September, [facility] [address] [id number] [address] [place] [address], [place] [address] September, [facility] [address] [id number] [address] [place] [address], [place] [address] 30 Aug, 2014 [facility] [address] [id number] [address] [place] [address], [place] [address] 29 Aug, 2014 [facility] [address] [id number] [address] [place] [address], [place] [address] Aug, [facility] [address] [id number] [address] [place] [address], [place] [address] Aug, [facility] [address] [id number] [address] [place] [address], [place] [address] Jul, [facility] [address] [id number] [address] [place] [address], [place] [address] Jul, [facility] [address] [id number] [address] [place] [address], [place] [address] Jul, [facility] [address] [id number] [address] [place] [address], [place] [address] Jul, [facility] [address] [id number] [address] [place] [address], [place] [address] 24 Jul, 2014 [facility] [address] [id number] [address] [place] [address], [place] [address] Jul, [facility] [address] [id number] [address] [place] [address], [place] [address] Jul, [facility] [address] [id number] [address] [place] [address], [place] [address] 19 Jul, 2014 [facility] [address] [id number] [address] [place] [address], [place] [address] Jul, [facility] [address] [id number] [address] [place] [address], [place] [address] Jul, 2014 [facility] [address] [id number] [address] [place] [address], [place] [address] Jul, 2014 [facility] [address] [id number] [address] [place] [address], [place] [address] Jul, [facility] [address] [id number] [address] [place] [address], [place] [address] Jul, 2014 [facility] [address] [id number] [address] [place] [address], [place] [address] Jul, [facility] [address] [id number] [address] [place] [address], [place] [address] Jul, [facility] [address] [id number] [address] [place] [address], [place] [address] Jun, [facility] [address] [id number] [address] [place] [address], [place] [address] Jun, 2014 [facility] [address] [id number] [address] [place] [address], [place] [address] Jun, [facility] [address] [id number] [address] [place] [address], [place] [address] Jun, [facility] [address] [id number] [address] [place] [address], [place] [address] Jun, [facility] [address] [id number] [address] [place] [address], [place] [address] Jun, [facility] [address] [id number] [address] [place] [address], [place] [address] Jun, [facility] [address] [id number] [address] [place] [address], [place] [address] Jun, 2014 [facility] [address] [id number] [address] [place] [address], [place] [address] Jun, [facility] [address] [id number] [address] [place] [address], [place] [address] Jun, 2014 [facility] [address] [id number] [address] [place] [address], [place] [address] Jun, 2014 [facility] [address] [id number] [address] [place] [address], [place] [address] 17 Jun, 2014 [facility] [address] [id number] [address] [place] [address], [place] [address] Jun, 2014 [facility] [address] [id number] [address] [place] [address], [place] [address] Jun, 2014 [facility] [address] [id number] [address] [place] [address], [place] [address] Jun, 2014 [facility] [address] [id number] [address] [place] [address], [place] [address] Jun, 2014 [facility] [address] [id number] [address] [place] [address], [place] [address] Jun, 2014 [facility] [address] [id number] [address] [place] [address], [place] [address] Jun, 2014 [facility] [address] [id number] [address] [place] [address], [place] [address] Jun, 2014 [facility] [address] [id number] [address] [place] [address], [place] [address] Jun, 2014 [facility] [address] [id number] [address] [place] [address] Jun, 2014 [facility] [address] [id number] [address] [place] [address], [place] [address] Jun, 2014 [facility] [address] [id number] [address] [place] [address], [place] [address] Jun, 2014 [facility] [address] [id number] [address] [place] [address], [place] [address] Jun, 2014 [facility] [address] [id number] [address] [place] [address] [place] [address] Jun, [facility] [address] [id number] [address] [place] [address], [place] [address] May, [facility] [address] [id number] [address] [place] [address], [place] [address] May, [facility] [address] [id number] [address] [place] [address], [place] [address] May, [facility] [address] [id number] [address] [place] [address], [place] [address] May, [facility] [address] [id number] [address] [place] [address], [place] [address] May, [facility] [address] [id number] [address] [place] [address], [place] [address] May, [facility] [address] [id number] [address] [place] [address], [place] [address] May, [facility] [address] [id number] [address] [place] [address], [place] [address] May, [facility] [address] [id number] [address] [place] [address], [place] [address] May, [facility] [address] [id number] [address] [place] [address], [place] [address] May, [facility] [address] [id number] [address] [place] [address], [place] [address] May, [facility] [address] [id number] [address] [place] [address] May, [facility] [address] [id number] [address] [place] [address], [place] [address] May, [facility] [address] [id number] [address] [place] [address], [place] [address] May, [facility] [address] [id number] [address] [place] [id number] May, [facility] [address] [id number] [address] [place] [address], [place] [id number] May, [facility] [address] [id number] [address] [place] [address], [place] [id number] May, [facility] [address] [id number] [address] [place] [address], [place] [address] Apr, [facility] [address] [id number] [address] [place] [address], [place] [address] Apr, [facility] [address] [id number] [address] [place] [address], [place] [address] Apr, [facility] [address] [id number] [address] [place] [address], [place] [address] Apr, [facility] [address] [id number] [address] [place] [address], [place] [address] Mar, [facility] [address] [id number] [address] [place] [address], [place] [address] Mar, [facility] [address] [id number] [address] [place] [address], [place] [address] Mar, [facility] [address] [id number] [address] [place] [address], [place] [id number] Mar, [facility] [address] [id number] [address] [place] [address], [place] [id number] Mar, [facility] [address] [id number] [address] [place] [address], [place] [address] Mar, [facility] [address] [id number] [address] [place] [address], [place] [address] Feb, [facility] [address] [id number] [address] [place] [address], [place] [address] Feb, [facility] [address] [id number] [address] [place] [address], [place] [id number] 18 Jan, 2014 [facility] [address] [id number] [address] [place] [address], [place] [address] Jan, 2013 [facility] [address] [id number] [address] [place] [address], [place] [address] Jan, [facility] [address] [id number] [address] [place] [address], [place] [address] Jan, [facility] [address] [id number] [address] [place] [address], [place] [address] Jan, 2013 [facility] [address] [id number] [address] [place] [address], [place] [address] Jan, 2013 [facility] [address] [id number] [address] [place] [address], [place] [id number] Jan, [facility] [address] [id number] [address] [place] [address], [place] [address] Jan, [facility] [address] [id number] [address] [place] [address], [place] [address] Jan, [facility] [address] [id number] [address] [place] [address], [place] [address] Jan, [facility] [address] [id number] [address] [place] [address], [place] [address] Dec, [facility] [address] [id number] [address] [place] [address], [place] [address] Dec, [facility] [address] [id number] [address] [place] [address], [place] [id number] Dec, [facility] [address] [id number] [address] [place] [address], [place] [address] Dec, [facility] [address] [id number] [address] [place] [address], [place] [address] Dec, [facility] [address] [id number] [address] [place] [address], [place] [address] Dec, [facility] [address] [id number] [address] [place] [address], [place] [address] Dec, [facility] [address] [id number] [facility] [address] Dec, [facility] [address] [id number] [address] [place] [address], [place] [address] Dec, [facility] [address] [id number] [address] [place] [address], [place] [address] Nov, [facility] [address] [id number] [address] [place] [address], [place] [address] Nov, [facility] [address] [id number] [address] [place] [address], [place] [address] Nov, [facility] [address] [id number] [address] [place] [address], [place] [address] Nov, [facility] [address] [id number] [address] [place] [address], [place] [address] Nov, [facility] [address] [id number] [address] [place] [address], [place] [address] Nov, [facility] [address] [id number] [address] [place] [address], [place] [address] Nov, [facility] [address] [id number] [address] [place] [address], [place] [address] Nov, [facility] [address] [id number] [address] [place] [address], [place] [address] Nov, [facility] [address] [id number] [address] [place] [address], [place] [address] Nov, [facility] [address] [id number] [address] [place] [address], [place] [address] Nov, [facility] [address] [id number] [address] [place] [address], [place] [address] Nov, [facility] [address] [id number] [address] [place] [address], [place] [address] Nov, [facility] [address] [id number] [address] [place] [address], [place] [address] Nov, [facility] [address] [id number] [address] [place] [address], [place] [address] Nov, [facility] [address] [id number] [address] [place] [address], [place] [address] Oct, [facility] [address] [id number] [address] [place] [address], [place] [address] Oct, [facility] [address] [id number] [address] [place] [address], [place] [address] Oct, [facility] [address] [id number] [address] [place] [address], [place] [address] Oct, [facility] [address] [id number] [address] [place] [address], [place] [address] Oct, [facility] [address] [id number] [address] [place] [address], [place] [address] Oct, [facility] [address] [id number] [address] [place] [address], [place] [address] Oct, [facility] [address] [id number] [address] [place] [address], [place] [address] Oct, [facility] [address] [id number] [address] [place] [address], [place] [address] Oct, [facility] [address] [id number] [address] [place] [address], [place] [address] Oct, [facility] [address] [id number] [address] [place] [address], [place] [address] Oct, [facility] [address] [id number] [address] [place] [address], [place] [address] Oct, [facility] [address] [id number] [address] [place] [address], [place] [address] Oct, [facility] [address] [id number] [address] [place] [address], [place] [address] Oct, [facility] [address] [id number] [address] [place] [address], [place] [address] September, [facility] [address] [id number] [address] [place] [address], [place] [address] September, [facility] [address] [id number] [address] [place] [address], [place] [address] September, [facility] [address] [id number] [address] [place] [address], [place] [address] September, [facility] [address] [id number] [address] [place] [address], [place] [address] September, [facility] [address] [id number] [address] [place] [address], [place] [address] September, [facility] [address] [id number] [address] [place] [address], [place] [address] September, [facility] [address] [id number] [address] [place] [address], [place] [address] September, [facility] [address] [id number] [address] [place] [address], [place] [address] September, [facility] [address] [id number] [address] [place] [address], [place] [address] September, [facility] [address] [id number] [address] [place] [address], [place] [address] September, [facility] [address] [id number] [address] [place] [address], [place] [address] September, [facility] [address] [id number] [address] [place] [address], [place] [address] September, [facility] [address] [id number] [address] [place] [address], [place] [address] Aug, [facility] [address] [id number] [address] [place] [address], [place] [address] Aug, [facility] [address] [id number] [address] [place] [address], [place] [address] Aug, [facility] [address] [id number] [facility] [place] [address] Aug, [facility] [address] [id number] [facility] [place] [address] Aug, [facility] [address] [id number] [facility] [place] [address] Aug, [facility] [address] [id number] [address] [place] [address], [place] [address] Aug, [facility] [address] [id number] [address] [place] [address], [place] [address] Aug, [facility] [address] [id number] [address] [place] [address], [place] [address] Aug, [facility] [address] [id number] [address] [place] [address], [place] [address] Aug, [facility] [address] [id number] [address] [place] [address], [place] [address] Jul, [facility] [address] [id number] [address] [place] [address], [place] [address] Jul, [facility] [address] [id number] [address] [place] [address], [place] [address] Jul, [facility] [address] [id number] [address] [place] [address], [place] [address] Jul, [facility] [address] [id number] [address] [place] [address], [place] [address] Jul, [facility] [address] [id number] [address] [place] [address], [place] [address] Jul, [facility] [address] [id number] [address] [place] [address], [place] [address] Jul, [facility] [address] [id number] [address] [place] [address], [place] [address] Jul, [facility] [address] [id number] [address] [place] [address], [place] [address] Jun, [facility] [address] [id number] [facility] [place] [address] Jun, [facility] [address] [id number] [address] [place] [address], [place] [address] 14 Jun, 2013 [facility] [address] [id number] [address] [place] [address], [place] [address] 14 Jun, 2013 [facility] [address] [id number] [address] [place] [address], [place] [address] Jun, 2013 [facility] [address] [id number] [address] [place] [address], [place] [address] Jun, [facility] [address] [id number] [address] [place] [address], [place] [address] 06 Jun, 2013 [facility] [address] [id number] [address] [place] [address], [place] [address] 06 Jun, 2013 [facility] [address] [id number] [address] [place] [address], [place] [address] 04 Jun, 2013 [facility] [address] [id number] [address] [place] [address], [place] [address] 04 Jun, 2013 [facility] [address] [id number] [address] [place] [address], [place] [address] 03 Jun, 2013 [facility] [address] [id number] [address] [place] [address], [place] [address] Jun, [facility] [address] [id number] [address] [place] [address], [place] [address] Jun, [facility] [address] [id number] [address] [place] [address], [place] [address] Jun, [facility] [address] [id number] [address] [place] [address], [place] [address] May, [facility] [address] [id number] [address] [place] [address], [place] [address] May, [facility] [address] [id number] [address] [place] [address], [place] [address] May, [facility] [address] [id number] [address] [place] [address], [place] [address] May, [facility] [address] [id number] [address] [place] [address], [place] [address] May, [facility] [address] [id number] [address] [place] [address], [place] [address] May, [facility] [address] [id number] [address] [place] [address], [place] [address] May, [facility] [address] [id number] [address] [place] [address], [place] [address] May, [facility] [address] [id number] [address] [place] [address], [place] [address] May, [facility] [address] [id number] [address] [place] [address], [place] [address] May, [facility] [address] [id number] [address] [place] [address], [place] [address] May, [facility] [address] [id number] [address] [place] [address], [place] [address] May, [facility] [address] [id number] [address] [place] [address], [place] [address] May, [facility] [address] [id number] [address] [place] [address], [place] [address] May, [facility] [address] [id number] [address] [place] [address], [place] [address] May, [facility] [address] [id number] [address] [place] [address], [place] [address] May, [facility] [address] [id number] [address] [place] [address], [place] [address] May, [facility] [address] [id number] [address] [place] [address], [place] [address] May, [facility] [address] [id number] [address] [place] [address], [place] [address] May, [facility] [address] [id number] [address] [place] [address], [place] [address] May, [facility] [address] [id number] [address] [place] [address], [place] [address] Apr, [facility] [address] [id number] [address] [place] [address], [place] [address] Apr, [facility] [address] [id number] [address] [place] [address], [place] [address] Apr, [facility] [address] [id number] [address] [place] [address], [place] [address] Apr, [facility] [address] [id number] [address] [place] [address], [place] [address] Apr, [facility] [address] [id number] [address] [place] [address], [place] [address] Apr, [facility] [address] [id number] [address] [place] [address], [place] [address] Apr, [facility] [address] [id number] [address] [place] [address], [place] [address] Apr, [facility] [address] [id number] [address] [place] [address], [place] [address] Apr, [facility] [address] [id number] [address] [place] [address], [place] [address] Apr, [facility] [address] [id number] [address] [place] [address], [place] [address] Apr, [facility] [address] [id number] [address] [place] [address], [place] [address] Apr, [facility] [address] [id number] [address] [place] [address], [place] [address] Apr, [facility] [address] [id number] [address] [place] [address], [place] [address] Apr, [facility] [address] [id number] [address] [place] [address], [place] [address] Apr, [facility] [address] [id number] [address] [place] [address], [place] [address] Apr, [facility] [address] [id number] [address] [place] [address], [place] [address] Apr, [facility] [address] [id number] [address] [place] [address], [place] [address] Apr, [facility] [address] [id number] [address] [place] [address], [place] [address] Mar, [facility] [address] [id number] [address] [place] [address], [place] [address] Mar, [facility] [address] [id number] [address] [place] [address], [place] [address] Mar, [facility] [address] [id number] [address] [place] [address], [place] [address] Mar, [facility] [address] [id number] [address] [place] [address], [place] [address] Mar, [facility] [address] [id number] [address] [place] [address], [place] [address] Mar, [facility] [address] [id number] [address] [place] [address], [place] [address] Mar, [facility] [address] [id number] [address] [place] [address], [place] [address] Mar, [facility] [address] [id number] [address] [place] [address], [place] [address] Mar, [facility] [address] [id number] [address] [place] [address], [place] [address] Mar, [facility] [address] [id number] [address] [place] [address], [place] [address] Mar, [facility] [address] [id number] [address] [place] [address], [place] [address] Feb, [facility] [address] [id number] [address] [place] [address], [place] [address] Feb, [facility] [address] [id number] [address] [place] [address], [place] [address] Feb, [facility] [address] [id number] [address] [place] [address], [place] [address] Feb, [facility] [address] [id number] [address] [place] [address], [place] [address] Feb, [facility] [address] [id number] [address] [place] [address], [place] [address] Dec, [facility] [address] [id number] [address] [place] [address], [place] [address] Dec, [facility] [address] [id number] [address] [place] [address], [place] [address] Dec, [facility] [address] [id number] [address] [place] [address], [place] [address] Dec, [facility] [address] [id number] [address] [place] [address], [place] [address] Nov, [facility] [address] [id number] [address] [place] [address], [place] [address] Nov, [facility] [address] [id number] [address] [place] [address], [place] [address] Nov, [facility] [address] [id number] [address] [place] [address], [place] [address] Nov, [facility] [address] [id number] [address] [place] [address], [place] [address] Nov, [facility] [address] [id number] [address] [place] [address], [place] [address] Nov, [facility] [address] [id number] [address] [place] [address], [place] [address] 30 Oct, 2012 [facility] [address] [id number] [address] [place] [address], [place] [address] Oct, [facility] [address] [id number] [address] [place] [address], [place] [address] Oct, [facility] [address] [id number] [address] [place] [address], [place] [address] Oct, [facility] [address] [id number] [address] [place] [address], [place] [address] September, [facility] [address] [id number] [address] [place] [address], [place] [address] September, [facility] [address] [id number] [address] [place] [address], [place] [address] September, [facility] [address] [id number] [address] [place] [address], [place] [address] September, [facility] [address] [id number] [address] [place] [address], [place] [address] September, [facility] [address] [id number] [address] [place] [address], [place] [address] September, [facility] [address] [id number] [address] [place] [address], [place] [address] September, [facility] [address] [id number] [address] [place] [address], [place] [address] September, [facility] [address] [id number] [address] [place] [address], [place] [address] Aug, [facility] [address] [id number] [address] [place] [address], [place] [address] Aug, [facility] [address] [id number] [address] [place] [address], [place] [address] Jul, [facility] [address] [id number] [address] [place] [address], [place] [address] Jun, [facility] [address] [id number] [address] [place] [address], [place] [address] 24 May, 2012 [facility] [address] [id number] [address] [place] [address], [place] [address] May, [facility] [address] [id number] [address] [place] [address], [place] [address] 14 May, 2012 [facility] [address] [id number] [address] [place] [address], [place] [address] May, [facility] [address] [id number] [address] [place] [address], [place] [address] Apr, [facility] [address] [id number] [address] [place] [address], [place] [address] Apr, [facility] [address] [id number] [address] [place] [address], [place] [address] Apr, [facility] [address] [id number] [address] [place] [address], [place] [address] Apr, [facility] [address] [id number] [address] [place] [address], [place] [address] Apr, [facility] [address] [id number] [address] [place] [address], [place] [address] Apr, [facility] [address] [id number] [address] [place] [address], [place] [address] 17 Apr, 2012 [facility] [address] [id number] [address] [place] [address], [place] [address] 14 Apr, 2012 [facility] [address] [id number] [address] [place] [address], [place] [address] 14 Apr, 2012 [facility] [address] [id number] [address] [place] [address], [place] [address] 30 Mar, 2012 [facility] [address] [id number] [address] [place] [address], [place] [address] 30 Mar, 2012 [facility] [address] [id number] [address] [place] [address] [address] 27 Mar, 2012 [facility] [address] [id number] [address] [place] [address], [place] [address] 27 Mar, 2012 [facility] [address] [id number] [address] [place] [address], [place] [address] 16 Mar, 2012 [facility] [address] [id number] [address] [place] [address], [place] [address] 16 Mar, 2012 [facility] [address] [id number] [address] [place] [address], [place] [address] 16 Mar, 2012 [facility] [address] [id number] [address] [place] [address], [place] [address] 16 Mar, 2012 [facility] [address] [id number] [address] [place] [address], [place] [address] 16 Mar, 2012 [facility] [address] [id number] [address] [place] [address], [place] [address] 16 Mar, 2012 [facility] [address] [id number] [address] [place] [address], [place] [address] 14 Mar, 2012 [facility] [address] [id number] [address] [place] [address], [place] [address] 14 Mar, 2012 [facility] [address] [id number] [address] [place] [address], [place] [address] 13 Mar, 2012 [facility] [address] [id number] [address] [place] [address], [place] [address] 13 Mar, 2012 [facility] [address] [id number] [address] [place] [address], [place] [address] 06 Mar, 2012 [facility] [address] [id number] [address] [place] [address], [place] [address] 02 Mar, 2012 [facility] [address] [id number] [address] [place] [address], [place] [address] 02 Mar, 2012 [facility] [address] [id number] [address] [place] [address], [place] [address] 02 Mar, 2012 [facility] [address] [id number] [address] [place] [address], [place] [address] Mar, [facility] [address] [id number] [address] [place] [address], [place] [address] Feb, [facility] [address] [id number] [address] [place] [address], [place] [address] Feb, [facility] [address] [id number] [address] [place] [address], [place] [address] Feb, [facility] [address] [id number] [address] [place] [address], [place] [address] Feb, [facility] [address] [id number] [address] [place] [address], [place] [address] Jan, [facility] [address] [id number] [address] [place] [address], [place] [address] Jan, [facility] [address] [id number] [address] [place] [address], [place] [address] Dec, [facility] [address] [id number] [address] [place] [address], [place] [address] Dec, [facility] [address] [id number] [address] [place] [address], [place] [address] Dec, [facility] [address] [id number] [address] [place] [address], [place] [address] Nov, [facility] [address] [id number] [address] [place] [address], [place] [address] Nov, [facility] [address] [id number] [address] [place] [address], [place] [address] Oct, [facility] [address] [id number] [address] [place] [address], [place] [address] Oct, [facility] [address] [id number] [address] [place] [address], [place] [address] September, [facility] [address] [id number] [address] [place] [address], [place] [address] September, [facility] [address] [id number] [address] [place] [address], [place] [address] September, [facility] [address] [id number] [address] [place] [address], [place] [address] September, [facility] [address] [id number] [address] [place] [address], [place] [address] Aug, [facility] [address] [id number] [address] [place] [address], [place] [address] Jul, [facility] [address] [id number] [address] [place] [address], [place] [address] Jul, [facility] [address] [id number] [address] [place] [address], [place] [address] Jun, [facility] [address] [id number] [address] [place] [address], [place] [address] Jun, [facility] [address] [id number] [address] [place] [address], [place] [address] Jun, [facility] [address] [id number] [address] [place] [address], [place] [address] May, [facility] [address] [id number] [address] [place] [address], [place] [address] May, [facility] [address] [id number] [address] [place] [address], [place] [address] May, [facility] [address] [id number] [address] [place] [address], [place] [address] May, [facility] [address] [id number] [address] [place] [address], [place] [address] Apr, [facility] [address] [id number] [address] [place] [address], [place] [address] Apr, [facility] [address] [id number] [address] [place] [address], [place] [address] Apr, [facility] [address] [id number] [address] [place] [id number] Mar, [facility] [address] [id number] [address] [place] [address], [place] [address] Mar, [facility] [address] [id number] [address] [place] [address], [place] [address] Mar, [facility] [address] [id number] [address] [place] [address], [place] [address] Mar, [facility] [address] [id number] [address] [place] [address], [place] [address] Mar, [facility] [address] [id number] [address] [place] [address], [place] [address] Feb, [facility] [address] [id number] [address] [place] [address], [place] [address] Feb, [facility] [address] [id number] [address] [place] [address], [place] [address] Feb, [facility] [address] [id number] [address] [place] [address], [place] [address] Feb, [facility] [address] [id number] [address] [place] [address], [place] [address] Feb, [facility] [address] [id number] [address] [place] [address], [place] [address] Feb, [facility] [address] [id number] [address] [place] [address] Feb, [facility] [address] [id number] [address] [place] [address], [place] [address] Apr, [facility] [address] [id number] [address] [place] [address], [place] [address] Apr, [facility] [address] [id number] [address] [place] [address], [place] [address] 15 Apr, 2010 [facility] [address] [id number] [address] [place] [address], [place] [address] 15 Apr, 2010 [facility] [address] [id number] [address] [place] [address], [place] [address] 02 Apr, 2010 [facility] [address] [id number] [address] [place] [address], [place] [address] Apr, [facility] [address] [id number] [address] [place] [address], [place] [address] Mar, [facility] [address] [id number] [address] [place] [address], [place] [address] 18 Mar, 2010 [facility] [address] [id number] [address] [place] [address], [place] [address] 17 Mar, 2010 [facility] [address] [id number] [address] [place] [address], [place] [address] 16 Mar, 2010 [facility] [address] [id number] [address] [place] [address], [place] [address] Mar, [facility] [address] [id number] [address] [place] [address], [place] [address] Mar, [facility] [address] [id number] [address] [place] [address], [place] [address] Mar, [facility] [address] [id number] [address] [place] [address], [place] [address] Mar, [facility] [address] [id number] [address] [place] [address], [place] [address] Feb, [facility] [address] [id number] [address] [place] [address], [place] [address] Feb, [facility] [address] [id number] [address] [place] [address], [place] [address] Dec, [facility] [address] [id number] [address] [place] [address], [place] [address] Jun, [facility] [address] [id number] [address] [place] [address] Jun, [facility] [address] [id number] [address] [place] [address] May, [facility] [address] [id number] [address] [place] [address] Feb, [facility] [address] [id number] [address] [place] [address] Feb, [facility] [address] [id number] [address] [place] [address] Feb, [facility] [address] [id number] [address] [place] [address] Feb, [facility] [address] [id number] [address] [place] [id number] Feb, [facility] [address] [id number] [address] [place] [address] Feb, [facility] [address] [id number] [address] [place] [address] Feb, [facility] [address] [id number] [address] [place] [address] Jul, [facility] [address] [id number] [address] [place] [address] Jun, IMMUNIZATIONS No Known Immunizations SOCIAL HISTORY Never Assessed REASON FOR VISIT PLAN OF CARE VITAL SIGNS Height 66 in 2013-03-15 Weight 284.55 lbs 2013-03-15 Temperature 98.8 degrees Fahrenheit 2013-03-15 Heart Rate 84 bpm 2013-03-15 Respiratory Rate 18 2013-03-15 Blood pressure systolic 130 mmHg 2013-03-15 Blood pressure diastolic 82 mmHg 2013-03-15 MEDICATIONS Unknown Medications RESULTS No Results PROCEDURES Procedure Date Ordered Result Body Site COMPLETE CBC W/AUTO DIFF WBC Mar 15, 2013 ASSAY OF BLOOD/URIC ACID Mar 15, 2013 VENIPUNCT, ROUTINE* Mar 15, 2013 INSTRUCTIONS MEDICATIONS ADMINISTERED No Known Medications [...] 08/2014 Hospitalization History Rt hand post op infection-[facility] 7 Hospitalization History cellulitus Right elbow-[facility] 12/09/16
[2019-10-27 22:05] LABS: GLUCOSE 120 MG/DL (70-105); TOTAL PROTEIN 7.5 GM/DL (6.4-8.2)
--- OUTSIDE RECORDS SUMMARY | 2019-10-27 22:05 | XMS REPORT ---
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 and Bilateral low back pain without sciatica M54.5 [place] [address] [facility] [id number] [address] [place] [phone] Feb, Essential (primary) hyperten danny I10 ; Spider bite T63.301A and Headache R51 [place] [address] [facility] [id number] [address] [place] [phone] Feb, [place] [address] [facility] [id number] [address] [place] [phone] Feb, [facility] [address] [facility] [id number] [address] [place] [id number] Feb, Essential (primary) hyperten danny I10 and Spider bite T63.301A [facility] [address] [facility] [id number] [address] [place] [phone] Jan, [facility] [address] 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 [id number] [address] [place] [phone] Dec, Chronic pain disorder 338.4 [facility] [address] [facility] [id number] [address] [place] [phone] Dec, Toenail avulsion 893.0 [facility] [address] [facility] [id number] [address] [place] [phone] Dec, Generalized anxiety disorder 300.02 and Posttraumatic stress disorder 309.81 [facility] [address] [facility] [id number] [address] [place] [phone] Dec, Foot pain, right 729.5 ; Hyp ertension 401.9 and Chronic pain 338.29 [facility] [address] [facility] [id number] [address] [place] [phone] Nov, [facility] [address] [facility] [id number] [address] [place] [phone] Nov, [facility] [address] [facility] [id number] [address] [place] [phone] Oct, [facility] [address] [facility] [id number] [address] [place] [phone] Oct, [facility] [address] [facility] [id number] [address] [place] [id number] Oct, [facility] [address] [facility] [id number] [address] [place] [phone] Oct, [facility] [address] [place] [id number] [address] [place] [phone] Oct, [facility] [address] [place] [id number] [address] [place] [phone] Oct, Major depressive disorder, r ecurrent episode, unspecified 296.30 and Anxiety state 300.00 [facility] [address] [place] [id number] [address] [place] [phone] Oct, Spider bite 989.5 [facility] [address] [place] [id number] [address] [place] [phone] Oct, [facility] [address] [address] September, Contact dermatitis 692.9 and Sciatica 724.3 [facility] [address] [place] [id number] [address] [place] [phone] September, [facility] [address] [place] [id number] [address] [place] [phone] September, Generalized anxiety disorder 300.02 ; Posttraumatic stress disorder 309.81 and Depression, major, recurrent, in partial remission 296.35 [facility] [address] [place] [id number] [address] [place] [phone] September, Cellulitis 682.9 [facility] [address] [place] [id number] [address] [place] [phone] September, [facility] [address] [place] [id number] [address] [place] [phone] September, [facility] [address] [place] [id number] [address] [place] [id number] Aug, [facility] [address] [place] [id number] [address] [place] [phone] Aug, [facility] [address] [place] [id number] [address] [place] [phone] Aug, [facility] [address] [id number] [facility] [place] [address] 13 Aug, 2014 [facility] [address] [id number] [facility] [place] [address] 27 Jul, 2014 [facility] [address] [id number] [address] [place] [address], [place] [address] 27 Jul, 2014 [facility] [address] [id number] [address] [place] [address], [place] [address] 27 Jul, 2014 [facility] [address] [id number] [address] [place] [address], [place] [address] 27 Jul, 2014 [facility] [address] [id number] [address] [place] [address], [place] [address] 24 Jul, 2014 [facility] [address] [id number] [address] [place] [address], [place] [id number] 20 Jul, 2014 [facility] [address] [id number] [address] [place] [address], [place] [address] 20 Jul, 2014 [facility] [address] [id number] [address] [place] [address], [place] [address] 19 Jul, 2014 [facility] [address] [id number] [address] [place] [address], [place] [id number] 19 Jul, 2014 [facility] [address] [id number] [address] [place] [address], [place] [address] 05 Jul, 2014 [facility] [address] [id number] [address] [place] [address], [place] [id number] 05 Jul, 2014 [facility] [address] [id number] [address] [place] [address], [place] [address] 04 Jul, 2014 [facility] [address] [id number] [address] [place] [address], [place] [address] 04 Jul, 2014 [facility] [address] [id number] [address] [place] [address], [place] [address] 03 Jul, 2014 [facility] [address] [id number] [address] [place] [address], [place] [address] Jul, [facility] [address] [id number] [address] [place] [address], [place] [address] Jun, 2014 [facility] [address] [id number] [address] [place] [address], [place] [address] Jun, 2014 [facility] [address] [id number] [address] [place] [address], [place] [address] Jun, 2014 [facility] [address] [id number] [address] [place] [address], [place] [id number] Jun, 2014 [facility] [address] [id number] [address] [place] [address], [place] [address] Jun, 2014 [facility] [address] [id number] [address] [place] [address], [place] [address] Jun, 2014 [facility] [address] [id number] [address] [place] [address], [place] [address] Jun, 2014 [facility] [address] [id number] [address] [place] [address], [place] [address] Jun, 2014 [facility] [address] [id number] [address] [place] [address], [place] [address] Jun, 2014 [facility] [address] [id number] [address] [place] [address], [place] [address] Jun, 2014 [facility] [address] [id number] [address] [place] [address], [place] [address] Jun, 2014 [facility] [address] [id number] [address] [place] [address], [place] [address] Jun, 2014 [facility] [address] [id number] [address] [place] [address], [place] [address] Jun, 2014 [facility] [address] [id number] [address] [place] [address], [place] [address] Jun, 2014 [facility] [address] [id number] [address] [place] [address], [place] [address] Jun, 2014 [facility] [address] [id number] [address] [place] [address], [place] [address] Jun, 2014 [facility] [address] [id number] [address] [place] [address], [place] [address] Jun, 2014 [facility] [address] [id number] [address] [place] [address], [place] [address] Jun, 2014 [facility] [address] [id number] [address] [place] [address], [place] [address] Jun, 2014 [facility] [address] [id number] [address] [place] [address], [place] [address] Jun, 2014 [facility] [address] [id number] [address] [place] [address], [place] [address] Jun, 2014 [facility] [address] [id number] [address] [place] [address], [place] [address] Jun, 2014 [facility] [address] [id number] [address] [place] [address], [place] [address] Jun, 2014 [facility] [address] [id number] [address] [place] [address], [place] [address] Jun, 2014 [facility] [address] [id number] [address] [place] [address], [place] [address] Jun, [facility] [address] [id number] [address] [place] [address], [place] [address] May, [facility] [address] [id number] [address] [place] [address], [place] [address] May, [facility] [address] [id number] [address] [place] [address], [place] [address] May, [facility] [address] [id number] [address] [place] [address], [place] [address] May, [facility] [address] [id number] [address] [place] [address], [place] [address] May, [facility] [address] [id number] [address] [place] [address], [place] [address] May, [facility] [address] [id number] [address] [place] [address], [place] [address] May, [facility] [address] [id number] [address] [place] [address], [place] [address] May, [facility] [address] [id number] [address] [place] [address], [place] [address] May, [facility] [address] [id number] [address] [place] [address], [place] [address] May, [facility] [address] [id number] [address] [place] [address], [place] [address] May, [facility] [address] [id number] [address] [place] [address], [place] [address] May, [facility] [address] [id number] [address] [place] [address], [place] [address] May, [facility] [address] [id number] [address] [place] [address], [place] [address] May, [facility] [address] [id number] [address] [place] [address], [place] [address] May, [facility] [address] [id number] [address] [place] [address], [place] [address] May, [facility] [address] [id number] [address] [place] [address], [place] [address] May, [facility] [address] [id number] [address] [place] [address], [place] [address] Apr, [facility] [address] [id number] [address] [place] [address], [place] [address] Apr, [facility] [address] [id number] [address] [place] [address], [place] [address] Apr, [facility] [address] [id number] [address] [place] [address], [place] [address] Apr, [facility] [address] [id number] [address] [place] [address], [place] [address] Mar, [facility] [address] [id number] [address] [place] [address], [place] [address] Mar, [facility] [address] [id number] [address] [place] [address], [place] [address] Mar, [facility] [address] [id number] [address] [place] [address], [place] [address] Mar, [facility] [address] [id number] [address] [place] [address], [place] [address] Mar, [facility] [address] [id number] [address] [place] [address], [place] [address] Mar, [facility] [address] [id number] [address] [place] [address], [place] [address] 16 Feb, 2014 [facility] [address] [id number] [address] [place] [address], [place] [address] 16 Feb, 2014 [facility] [address] [id number] [address] [place] [address], [place] [address] 18 Jan, 2014 [facility] [address] [id number] [address] [place] [address], [place] [address] 18 Jan, 2014 [facility] [address] [id number] [address] [place] [address], [place] [address] 18 Jan, 2014 [facility] [address] [id number] [address] [place] [address] 18 Jan, 2014 [facility] [address] [id number] [address] [place] [address], [place] [address] 12 Jan, 2014 [facility] [address] [id number] [address] [place] [address], [place] [address] 12 Jan, 2014 [facility] [address] [id number] [address] [place] [id number] 09 Jan, 2014 [facility] [place] [address] [id number] [address] [place] [address] [place] [address] Jan, [facility] [address] [id number] [address] [place] [address], [place] [address] Jan, [facility] [place] [address] [id number] [address] [place] [address], [place] [address] Jan, [facility] [address] [id number] [address] [place] [address], [place] [address] Dec, [facility] [address] [id number] [address] [place] [address], [place] [address] Dec, [facility] [address] [id number] [address] [place] [address], [place] [address] Dec, [facility] [address] [id number] [address] [place] [address], [place] [address] Dec, [facility] [address] [id number] [address] [place] [address], [place] [address] Dec, [facility] [address] [id number] [address] [place] [address], [place] [address] Dec, [facility] [address] [id number] [address] [place] [address], [place] [address] Dec, [facility] [address] [id number] [address] [place] [address], [place] [address] Dec, [facility] [place] [address] [id number] [address] [place] [address], [place] [address] Dec, [facility] [place] [address] [id number] [address] [place] [address], [place] [address] Nov, [facility] [place] [address] [id number] [address] [place] [address], [place] [address] Nov, [facility] [place] [address] [id number] [address] [place] [address], [place] [address] Nov, [facility] [place] [address] [id number] [address] [place] [address], [place] [address] Nov, [facility] [place] [address] [id number] [facility] [place] [address] Nov, 2013 [facility] [place] [address] [id number] [facility] [place] [address] Nov, [facility] [place] [address] [id number] [address] [place] [address], [place] [address] Nov, 2013 [facility] [place] [address] [id number] [address] [place] [address], [place] [address] Nov, 2013 [facility] [place] [address] [id number] [address] [place] [address], [place] [address] Nov, 2013 [facility] [place] [address] [id number] [address] [place] [address], [place] [address] Nov, [facility] [place] [address] [id number] [address] [place] [address], [place] [address] Nov, 2013 [facility] [place] [address] [id number] [address] [place] [address], [place] [address] Nov, [facility] [place] [address] [id number] [address] [place] [address], [place] [address] Nov, [facility] [place] [address] [id number] [address] [place] [address], [place] [address] Nov, [facility] [place] [address] [id number] [address] [place] [address], [place] [address] Nov, [facility] [place] [address] [id number] [address] [place] [address], [place] [address] Oct, [facility] [place] [address] [id number] [address] [place] [address], [place] [address] Oct, [facility] [place] [address] [id number] [address] [place] [address], [place] [address] Oct, [facility] [address] [id number] [address] [place] [address], [place] [address] Oct, [facility] [place] [address] [id number] [address] [place] [address], [place] [address] Oct, [facility] [address] [id number] [facility] [place] [address] Oct, [facility] [place] [address] [id number] [facility] [place] [address] Oct, [facility] [address] [id number] [facility] [place] [address] Oct, [facility] [place] [address] [id number] [address] [place] [address], [place] [address] Oct, [facility] [address] [id number] [facility] [place] [address] Oct, [facility] [address] [id number] [address] [place] [address], [place] [address] Oct, [facility] [address] [id number] [address] [place] [address], [place] [address] Oct, [facility] [address] [id number] [address] [place] [address], [place] [address] Oct, [facility] [address] [id number] [address] [place] [address], [place] [address] Oct, [facility] [address] [id number] [address] [place] [address], [place] [address] September, [facility] [address] [id number] [address] [place] [address], [place] [address] September, [facility] [address] [id number] [address] [place] [address], [place] [address] September, [facility] [address] [id number] [address] [place] [address], [place] [address] September, [facility] [place] [address] [id number] [address] [place] [address], [place] [address] September, [facility] [address] [id number] [address] [place] [address], [place] [address] September, [facility] [place] [address] [id number] [address] [place] [address] September, [facility] [address] [id number] [address] [place] [address], [place] [address] September, [facility] [address] [id number] [address] [place] [address], [place] [address] September, [facility] [address] [id number] [address] [place] [address], [place] [address] September, [facility] [address] [id number] [address] [place] [address], [place] [address] September, [facility] [address] [id number] [address] [place] [address], [place] [address] September, [facility] [address] [id number] [address] [place] [address], [place] [address] September, [facility] [address] [id number] [address] [place] [address], [place] [address] Aug, [facility] [address] [id number] [address] [place] [address], [place] [address] Aug, [facility] [address] [id number] [address] [place] [address], [place] [address] Aug, [facility] [address] [id number] [address] [place] [address], [place] [address] Aug, [facility] [address] [id number] [address] [place] [address], [place] [address] Aug, [facility] [address] [id number] [address] [place] [address], [place] [address] Aug, [facility] [address] [id number] [address] [place] [address], [place] [address] Aug, [facility] [address] [id number] [address] [place] [address], [place] [address] Aug, [facility] [address] [id number] [address] [place] [address], [place] [address] Aug, [facility] [address] [id number] [address] [place] [address], [place] [address] Aug, [facility] [address] [id number] [address] [place] [address], [place] [address] Jul, [facility] [address] [id number] [facility] [place] [address] Jul, [facility] [address] [id number] [address] [place] [address], [place] [address] Jul, [facility] [address] [id number] [address] [place] [address], [place] [address] Jul, [facility] [address] [id number] [address] [place] [address], [place] [address] Jul, [facility] [address] [id number] [address] [place] [address], [place] [address] Jul, [facility] [address] [id number] [address] [place] [address], [place] [address] Jul, [facility] [address] [id number] [address] [place] [address], [place] [address] Jul, [facility] [address] [id number] [address] [place] [address], [place] [address] Jun, [facility] [address] [id number] [address] [place] [address], [place] [address] Jun, [facility] [address] [id number] [address] [place] [address], [place] [address] Jun, [facility] [address] [id number] [address] [place] [address], [place] [address] Jun, [facility] [address] [id number] [address] [place] [address], [place] [address] Jun, [facility] [address] [id number] [address] [place] [address], [place] [address] Jun, [facility] [address] [id number] [address] [place] [address], [place] [address] 06 Jun, 2013 [facility] [address] [id number] [address] [place] [address], [place] [address] Jun, [facility] [address] [id number] [address] [place] [address], [place] [address] Jun, [facility] [address] [id number] [address] [place] [address], [place] [address] Jun, [facility] [address] [id number] [address] [place] [address], [place] [address] Jun, [facility] [address] [id number] [address] [place] [address], [place] [address] Jun, [facility] [address] [id number] [address] [place] [address], [place] [address] Jun, [facility] [address] [id number] [address] [place] [address], [place] [address] Jun, [facility] [address] [id number] [address] [place] [address], [place] [address] May, [facility] [address] [id number] [address] [place] [address], [place] [address] May, [facility] [address] [id number] [address] [place] [address], [place] [address] May, [facility] [address] [id number] [address] [place] [address], [place] [address] May, [facility] [address] [id number] [address] [place] [address], [place] [address] May, [facility] [place] [address] [id number] [address] [place] [address], [place] [address] May, [facility] [facility] [address] [id number] [address] [place] [address], [place] [address] May, [facility] [address] [id number] [address] [place] [address], [place] [address] May, [facility] [address] [id number] [address] [place] [address], [place] [address] May, [facility] [address] [id number] [address] [place] [address], [place] [address] May, [facility] [address] [id number] [address] [place] [address], [place] [address] May, [facility] [address] [id number] [address] [place] [address], [place] [address] May, [facility] [address] [id number] [address] [place] [address], [place] [address] May, [facility] [address] [id number] [address] [place] [address], [place] [address] May, [facility] [address] [id number] [address] [place] [address], [place] [address] May, [facility] [address] [id number] [address] [place] [address], [place] [address] May, [facility] [address] [id number] [address] [place] [address], [place] [address] May, [facility] [address] [id number] [address] [place] [address], [place] [address] May, [facility] [address] [id number] [address] [place] [address], [place] [address] May, [facility] [address] [id number] [address] [place] [address], [place] [address] May, [facility] [address] [id number] [address] [place] [address], [place] [address] Apr, [facility] [address] [id number] [address] [place] [address], [place] [address] Apr, [facility] [address] [id number] [address] [place] [address], [place] [address] Apr, [facility] [address] [id number] [address] [place] [address], [place] [address] 26 Apr, 2013 [facility] [address] [id number] [address] [place] [address], [place] [address] Apr, [facility] [address] [id number] [address] [place] [address], [place] [address] Apr, [facility] [address] [id number] [address] [place] [address], [place] [address] 18 Apr, 2013 [facility] [address] [id number] [address] [place] [address], [place] [address] 18 Apr, 2013 [facility] [address] [id number] [address] [place] [address], [place] [address] Apr, [facility] [address] [id number] [address] [place] [address], [place] [address] Apr, [facility] [address] [id number] [address] [place] [address], [place] [address] Apr, [facility] [address] [id number] [address] [place] [address], [place] [address] Apr, [facility] [address] [id number] [address] [place] [address], [place] [address] Apr, [facility] [address] [id number] [address] [place] [address], [place] [address] Apr, [facility] [address] [id number] [address] [place] [address], [place] [address] 05 Apr, 2013 [facility] [address] [id number] [address] [place] [address], [place] [address] 05 Apr, 2013 [facility] [address] [id number] [address] [place] [address], [place] [address] 04 Apr, 2013 [facility] [address] [id number] [address] [place] [address], [place] [address] 04 Apr, 2013 [facility] [address] [id number] [address] [place] [address], [place] [address] Mar, [facility] [place] [address] [id number] [address] [place] [address], [place] [address] Mar, [facility] [address] [id number] [address] [place] [address], [place] [address] Mar, [facility] [place] [address] [id number] [address] [place] [address], [place] [address] Mar, [facility] [address] [id number] [address] [place] [address], [place] [address] Mar, [facility] [address] [id number] [address] [place] [address], [place] [address] Mar, [facility] [address] [id number] [address] [place] [address], [place] [address] Mar, [facility] [address] [id number] [address] [place] [address], [place] [address] Mar, [facility] [address] [id number] [address] [place] [address], [place] [address] Mar, [facility] [address] [id number] [address] [place] [address], [place] [address] Mar, [facility] [address] [id number] [address] [place] [address], [place] [address] Mar, [facility] [address] [id number] [address] [place] [address], [place] [address] Feb, [facility] [address] [id number] [address] [place] [address], [place] [address] Feb, [facility] [address] [id number] [address] [place] [address], [place] [address] Feb, [facility] [address] [id number] [address] [place] [address], [place] [address] Feb, [facility] [address] [id number] [address] [place] [address], [place] [address] Feb, [facility] [address] [id number] [address] [place] [address], [place] [address] Dec, [facility] [address] [id number] [address] [place] [address], [place] [address] Dec, [facility] [address] [id number] [address] [place] [address], [place] [address] Dec, [facility] [address] [id number] [address] [place] [address], [place] [address] Dec, [facility] [address] [id number] [address] [place] [address], [place] [address] Nov, [facility] [address] [id number] [address] [place] [address], [place] [address] Nov, [facility] [address] [id number] [address] [place] [address], [place] [address] Nov, [facility] [address] [id number] [address] [place] [address], [place] [address] Nov, [facility] [address] [id number] [address] [place] [address], [place] [address] Nov, [facility] [address] [id number] [address] [place] [address], [place] [address] Nov, [facility] [address] [id number] [address] [place] [address], [place] [address] Oct, [facility] [address] [id number] [address] [place] [address], [place] [address] Oct, [facility] [address] [id number] [address] [place] [address], [place] [address] Oct, [facility] [address] [id number] [address] [place] [address], [place] [address] Oct, [facility] [address] [id number] [address] [place] [address], [place] [address] September, [facility] [address] [id number] [address] [place] [address], [place] [address] September, [facility] [address] [id number] [address] [place] [address], [place] [address] September, [facility] [address] [id number] [address] [place] [address], [place] [address] September, [facility] [address] [id number] [address] [place] [address], [place] [address] September, [facility] [address] [id number] [address] [place] [address], [place] [address] September, [facility] [address] [id number] [address] [place] [address], [place] [address] September, [facility] [address] [id number] [address] [place] [address], [place] [address] September, [facility] [address] [id number] [address] [place] [address], [place] [address] Aug, [facility] [address] [id number] [address] [place] [address], [place] [address] Aug, [facility] [address] [id number] [address] [place] [address], [place] [address] Jul, [facility] [address] [id number] [address] [place] [address], [place] [address] Jun, [facility] [address] [id number] [address] [place] [address], [place] [address] May, [facility] [address] [id number] [address] [place] [address], [place] [address] May, [facility] [address] [id number] [address] [place] [address], [place] [address] May, [facility] [address] [id number] [address] [place] [address], [place] [address] May, [facility] [address] [id number] [address] [place] [address], [place] [address] Apr, [facility] [address] [id number] [address] [place] [address], [place] [address] Apr, [facility] [address] [id number] [address] [place] [address], [place] [address] 28 Apr, 2012 [facility] [address] [id number] [address] [place] [address], [place] [address] Apr, [facility] [address] [id number] [address] [place] [address], [place] [address] Apr, [facility] [address] [id number] [address] [place] [address], [place] [address] Apr, [facility] [address] [id number] [address] [place] [address], [place] [address] 17 Apr, 2012 [facility] [address] [id number] [address] [place] [address], [place] [address] 14 Apr, 2012 [facility] [address] [id number] [address] [place] [address], [place] [address] 14 Apr, 2012 [facility] [address] [id number] [address] [place] [address], [place] [address] 30 Mar, 2012 [facility] [address] [id number] [address] [place] [address], [place] [address] 30 Mar, 2012 [facility] [address] [id number] [address] [place] [address], [place] [address] 27 Mar, 2012 [facility] [address] [id number] [address] [place] [address], [place] [address] 27 Mar, 2012 [facility] [address] [id number] [address] [place] [address], [place] [address] 16 Mar, 2012 [facility] [address] [id number] [address] [place] [address], [place] [address] 16 Mar, 2012 [facility] [address] [id number] [address] [place] [address], [place] [address] 16 Mar, 2012 [facility] [address] [id number] [address] [place] [address], [place] [address] 16 Mar, 2012 [facility] [address] [id number] [address] [place] [address] 16 Mar, 2012 [facility] [address] [id number] [address] [place] [address], [place] [address] 16 Mar, 2012 [facility] [address] [id number] [address] [place] [address] 14 Mar, 2012 [facility] [address] [id number] [address] [place] [address], [place] [address] 14 Mar, 2012 [facility] [address] [id number] [address] [place] [address], [place] [address] 13 Mar, 2012 [facility] [address] [id number] [address] [place] [address], [place] [address] 13 Mar, 2012 [facility] [address] [id number] [address] [place] [address], [place] [address] 06 Mar, 2012 [facility] [address] [id number] [address] [place] [address] Mar, [facility] [address] [id number] [address] [place] [address], [place] [address] Mar, [facility] [address] [address] [id number] [address] [place] [address], [place] [address] Mar, [facility] [address] [id number] [address] [place] [id number] Mar, [facility] [address] [id number] [address] [place] [address], [place] [address] Feb, [facility] [address] [id number] [address] [place] [id number] Feb, [facility] [address] [id number] [address] [place] [phone] Feb, [facility] [address] [id number] [address] [place] [id number] Feb, [facility] [address] [id number] [address] [place] [id number] 20 Jan, 2012 [facility] [address] [id number] [address] [place] [address], [place] [address] Jan, [facility] [address] [id number] [address] [place] [address], [place] [address] Dec, [facility] [address] [id number] [address] [place] [address], [place] [address] Dec, [facility] [address] [id number] [address] [place] [address], [place] [address] Dec, [facility] [address] [id number] [address] [place] [address], [place] [address] Nov, [facility] [address] [id number] [address] [place] [address], [place] [address] Nov, [facility] [address] [id number] [address] [place] [address], [place] [address] Oct, [facility] [address] [id number] [address] [place] [address], [place] [address] Oct, [facility] [address] [id number] [address] [place] [address], [place] [address] September, [facility] [address] [id number] [address] [place] [address], [place] [address] September, [facility] [address] [id number] [address] [place] [address], [place] [address] September, [facility] [address] [id number] [address] [place] [address], [place] [address] September, [facility] [address] [id number] [address] [place] [address], [place] [address] Aug, [facility] [address] [id number] [address] [place] [address], [place] [address] Jul, [facility] [address] [id number] [address] [place] [address], [place] [address] Jul, [facility] [address] [id number] [address] [place] [address], [place] [address] Jun, [facility] [address] [id number] [address] [place] [address], [place] [address] Jun, [facility] [address] [id number] [address] [place] [address], [place] [address] Jun, [facility] [address] [id number] [address] [place] [address], [place] [address] May, [facility] [address] [id number] [address] [place] [address], [place] [address] May, [facility] [address] [id number] [address] [place] [address], [place] [address] May, [facility] [address] [id number] [address] [place] [address], [place] [address] May, [facility] [address] [id number] [address] [place] [address], [place] [address] Apr, [facility] [address] [id number] [address] [place] [address], [place] [address] Apr, [facility] [address] [id number] [address] [place] [address], [place] [address] Apr, [facility] [address] [id number] [address] [place] [address], [place] [address] Mar, [facility] [address] [id number] [address] [place] [address], [place] [address] Mar, [facility] [address] [id number] [address] [place] [address], [place] [address] Mar, [facility] [address] [id number] [address] [place] [address], [place] [address] Mar, [facility] [address] [id number] [address] [place] [address], [place] [address] Mar, [facility] [address] [id number] [address] [place] [address], [place] [address] Feb, [facility] [address] [id number] [address] [place] [address], [place] [address] 25 Feb, 2011 [facility] [address] [id number] [address] [place] [address], [place] [address] 17 Feb, 2011 [facility] [address] [id number] [address] [place] [address], [place] [address] Feb, [facility] [address] [id number] [address] [place] [address], [place] [address] Feb, [facility] [address] [id number] [address] [place] [address], [place] [address] Feb, [facility] [address] [id number] [address] [place] [address], [place] [address] Feb, [facility] [address] [id number] [address] [place] [address], [place] [address] 28 Apr, 2010 [facility] [address] [id number] [address] [place] [address], [place] [address] 23 Apr, 2010 [facility] [address] [id number] [address] [place] [address], [place] [address] 15 Apr, 2010 [facility] [address] [id number] [address] [place] [address], [place] [address] 15 Apr, 2010 [facility] [address] [id number] [address] [place] [address], [place] [address] 02 Apr, 2010 [facility] [address] [id number] [address] [place] [address], [place] [address] 02 Apr, 2010 [facility] [address] [id number] [address] [place] [address], [place] [address] 18 Mar, 2010 [facility] [address] [id number] [address] [place] [address], [place] [address] 18 Mar, 2010 [facility] [address] [id number] [address] [place] [address], [place] [address] 17 Mar, 2010 [facility] [address] [id number] [address] [place] [address], [place] [address] 16 Mar, 2010 [facility] [address] [id number] [address] [place] [address], [place] [address] 10 Mar, 2010 [facility] [address] [id number] [address] [place] [address], [place] [address] Mar, [facility] [address] [id number] [address] [place] [address], [place] [address] Mar, [facility] [address] [id number] [address] [place] [address], [place] [address] Mar, [facility] [address] [id number] [address] [place] [address], [place] [address] Feb, [facility] [address] [id number] [address] [place] [address], [place] [address] Feb, [facility] [address] [id number] [address] [place] [address], [place] [address] Dec, [facility] [address] [id number] [address] [place] [id number] Jun, [facility] [address] [id number] [address] [place] [address], [place] [address] Jun, [facility] [address] [id number] [address] [place] [id number] May, [facility] [address] [id number] [address] [place] [id number] Feb, [facility] [address] [id number] [address] [place] [phone] Feb, [facility] [address] [id number] [address] [place] [address], [place] [address] Feb, [facility] [address] [id number] [address] [place] [id number] 15 Feb, 2009 [facility] [address] [id number] [address] [place] [id number] 15 Feb, 2009 [facility] [address] [id number] [address] [place] [id number] Feb, [facility] [address] [facility] [id number] [address] [place] [id number] Feb, [facility] [address] [facility] [id number] [address] [place] [id number] Jul, [facility] [address] [facility] [id number] [address] [place] [id number] Jun, IMMUNIZATIONS No Known Immunizations SOCIAL HISTORY [...] 08/2014 Hospitalization History Rt hand post op infection-[facility] 7 Hospitalization History cellulitus Right elbow-[facility] 12/09/16
[2019-10-27 22:06] LABS: CARBON DIOXIDE 20 MMOL/L (21-32); INR 1.1 (0.8-1.4); PROTHROMBIN TIME PATIENT 14.6 SEC (12.2-14.7)
--- OUTSIDE RECORDS SUMMARY | 2019-10-27 22:06 | XMS REPORT ---
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 [address] [facility] [id number] [address] [place] [address] Mar, Generalized anxiety disorder F41.1 ; Post-traumatic stress disorder, acute F43.11 ; Self mutilating behavior Z72.89 and 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 [place] [address] [place] [id number] [address] [place] [address] Mar, Unspecified mood [affective] disorder F39 and Anxiety disorder, unspecified F41.9 [place] [address] [place] [id number] [address] [place] [id number] Mar, [place] [address] [place] [id number] [address] [place] [address] Feb, Essential (primary) hyperten danny I10 and Bilateral low back pain without sciatica M54.5 [place] [address] [place] [id number] [address] [place] [id number] Feb, Essential (primary) hyperten danny I10 ; Spider bite T63.301A and Headache R51 [place] [address] [facility] [id number] [address] [place] [address] Feb, [place] [address] [facility] [id number] [address] [place] [address] Feb, [facility], [place] [address] [facility] [id number] [address] [place] [address] Feb, Essential (primary) hyperten danny I10 and Spider bite T63.301A [place] [address] [facility] [id number] [address] [place] [address] Jan, [place] [address] [place] [id number] [address] [place] [address] Jan, 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 [facility], [place] [address] [id number] [address] [place] [address] Dec, 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 [facility], [place] [address] [facility] [id number] [address] [place] [address] Dec, Chronic pain disorder 338.4 [facility], [place] [address] [facility] [id number] [address] [place] [id number] 14 Dec, 2014 Toenail avulsion 893.0 [facility], [place] [address] [facility] [id number] [address] [place] [address] Dec, Generalized anxiety disorder 300.02 and Posttraumatic stress disorder 309.81 [facility], [place] [address] [facility] [id number] [address] [place] [address] Dec, Foot pain, right 729.5 ; Hyp ertension 401.9 and Chronic pain 338.29 [facility], [place] [address] [facility] [id number] [address] [place] [id number] Nov, [facility], [place] [address] [id number] [address] [place] [address] Nov, [facility], [place] [address] [facility] [id number] [address] [place] [address] Oct, [facility], [place] [address] [id number] [address] [place] [id number] Oct, [facility], [place] [address] [facility] [id number] [address] [place] [id number] Oct, [facility], [place] [address] [id number] [address] [place] [id number] Oct, [facility], [place] [address] [facility] [id number] [address] [place] [id number] Oct, [facility], [place] [address] [facility] [id number] [address] [place] [address] Oct, Major depressive disorder, r ecurrent episode, unspecified 296.30 and Anxiety state 300.00 [facility], [place] [address] [place] [id number] [address] [place] [address] Oct, Spider bite 989.5 [facility], [place] [address] [place] [id number] [address] [place] [id number] Oct, [facility], [place] [address] [address] September, Contact dermatitis 692.9 and Sciatica 724.3 [facility], [place] [address] [place] [id number] [address] [place] [address] September, [facility], [place] [address] [address] September, Generalized anxiety disorder 300.02 ; Posttraumatic stress disorder 309.81 and Depression, major, recurrent, in partial remission 296.35 [facility], [place] [address] [place] [id number] [address] [place] [address] September, Cellulitis 682.9 [facility], [place] [address] [address] September, [facility], [place] [address] [place] [id number] [address] [place] [address] September, [facility], [place] [address] [place] [id number] [address] [place] [address] Aug, [facility], [place] [address] [place] [id number] [address] [place] [address] Aug, [facility], [place] [address] [place] [id number] [address] [place] [id number] Aug, [facility], [place] [address] [place] [id number] [address] [place] [id number] Aug, [facility], [place] [address] [place] [id number] [address] [place] [id number] Jul, [facility] [address] [id number] [facility] [address] 27 Jul, 2014 [facility] [address] [id number] [facility] [address] 27 Jul, 2014 [facility] [address] [id number] [facility] [address] Jul, [facility] [address] [id number] [address] [place] [address], [place] [address] 24 Jul, 2014 [facility] [address] [id number] [address] [place] [address], [place] [address] Jul, [facility] [address] [id number] [address] [place] [address], [place] [address] Jul, [facility] [address] [id number] [address] [place] [address], [place] [address] Jul, [facility] [address] [id number] [address] [place] [address], [place] [address] Jul, [facility] [address] [id number] [address] [place] [address], [place] [address] 05 Jul, 2014 [facility] [address] [id number] [address] [place] [address], [place] [address] 05 Jul, 2014 [facility] [address] [id number] [address] [place] [address], [place] [address] Jul, [facility] [address] [id number] [address] [place] [address], [place] [address] 04 Jul, 2014 [facility] [address] [id number] [address] [place] [address], [place] [address] Jul, [facility] [address] [id number] [address] [place] [address], [place] [address] Jul, [facility] [address] [id number] [address] [place] [address], [place] [address] Jun, [facility] [address] [id number] [address] [place] [address], [place] [address] Jun, 2014 [facility] [address] [id number] [address] [place] [address], [place] [address] Jun, 2014 [facility] [address] [id number] [address] [place] [address], [place] [address] Jun, 2014 [facility] [address] [id number] [address] [place] [address], [place] [address] Jun, 2014 [facility] [address] [id number] [address] [place] [address], [place] [address] Jun, 2014 [facility] [address] [id number] [address] [place] [address], [place] [address] Jun, 2014 [facility] [address] [id number] [address] [place] [address], [place] [address] Jun, 2014 [facility] [address] [id number] [address] [place] [address], [place] [address] Jun, 2014 [facility] [address] [id number] [address] [place] [address], [place] [address] Jun, 2014 [facility] [address] [id number] [address] [place] [address], [place] [address] Jun, 2014 [facility] [address] [id number] [address] [place] [address], [place] [address] 17 Jun, 2014 [facility] [address] [id number] [address] [place] [address], [place] [address] 17 Jun, 2014 [facility] [address] [id number] [address] [place] [address], [place] [address] 12 Jun, 2014 [facility] [address] [id number] [address] [place] [address], [place] [address] 12 Jun, 2014 [facility] [address] [id number] [address] [place] [address], [place] [address] 10 Jun, 2014 [facility] [address] [id number] [address] [place] [address], [place] [address] Jun, 2014 [facility] [address] [id number] [address] [place] [address], [place] [address] Jun, 2014 [facility] [address] [id number] [address] [place] [address], [place] [address] Jun, 2014 [facility] [address] [id number] [address] [place] [address], [place] [address] Jun, 2014 [facility] [address] [id number] [address] [place] [address], [place] [address] Jun, 2014 [facility] [address] [id number] [address] [place] [address], [place] [address] Jun, 2014 [facility] [address] [id number] [address] [place] [address], [place] [address] Jun, 2014 [facility] [address] [id number] [address] [place] [address], [place] [address] Jun, 2014 [facility] [address] [id number] [address] [place] [address], [place] [address] Jun, [facility] [address] [id number] [address] [place] [address], [place] [address] May, [facility] [address] [id number] [address] [place] [address], [place] [address] May, [facility] [address] [id number] [address] [place] [address], [place] [address] May, [facility] [address] [id number] [address] [place] [address], [place] [address] May, [facility] [address] [id number] [address] [place] [address], [place] [address] May, [facility] [address] [id number] [address] [place] [address], [place] [address] May, [facility] [address] [id number] [address] [place] [address], [place] [address] May, [facility] [address] [id number] [address] [place] [address], [place] [address] 16 May, 2014 [facility] [address] [id number] [address] [place] [address], [place] [address] May, [facility] [address] [id number] [address] [place] [address], [place] [address] 15 May, 2014 [facility] [address] [id number] [address] [place] [address], [place] [address] May, [facility] [address] [id number] [address] [place] [address], [place] [address] May, [facility] [address] [id number] [address] [place] [address], [place] [address] May, [facility] [address] [id number] [address] [place] [address], [place] [address] May, [facility] [address] [id number] [address] [place] [address], [place] [address] May, [facility] [address] [id number] [address] [place] [address], [place] [address] May, [facility] [address] [id number] [address] [place] [address], [place] [address] May, [facility] [address] [id number] [address] [place] [address], [place] [address] Apr, [facility] [address] [id number] [address] [place] [address], [place] [address] Apr, [facility] [address] [id number] [address] [place] [address], [place] [address] Apr, [facility] [address] [id number] [address] [place] [address], [place] [address] Apr, [facility] [address] [id number] [address] [place] [address], [place] [address] Mar, [facility] [address] [id number] [address] [place] [address], [place] [address] Mar, [facility] [address] [id number] [address] [place] [address], [place] [address] Mar, [facility] [address] [id number] [address] [place] [address], [place] [address] Mar, [facility] [address] [id number] [address] [place] [address], [place] [address] Mar, [facility] [address] [id number] [address] [place] [address], [place] [address] Mar, [facility] [address] [address] [id number] [address] [place] [address], [place] [address] Feb, [facility] [address] [id number] [address] [place] [address], [place] [address] 16 Feb, 2014 [facility] [address] [id number] [address] [place] [address], [place] [address] 18 Jan, 2014 [facility] [address] [id number] [address] [place] [address], [place] [address] 18 Jan, 2014 [facility] [address] [id number] [address] [place] [address], [place] [address] 18 Jan, 2014 [facility] [address] [id number] [address] [place] [address] 18 Jan, 2014 [facility] [address] [id number] [address] [place] [address] 12 Jan, 2014 [facility] [address] [id number] [address] [place] [address] 12 Jan, 2013 [facility] [address] [id number] [address] [place] [id number] 09 Jan, 2014 [facility] [address] [id number] [address] [place] [address] 09 Jan, 2013 [facility] [address] [id number] [address] [place] [address] 02 Jan, 2013 [facility] [address] [id number] [address] [place] [address], [place] [address] Jan, [facility] [address] [id number] [address] [place] [address], [place] [address] Dec, [facility] [address] [id number] [address] [place] [address], [place] [address] Dec, [facility] [address] [id number] [address] [place] [address], [place] [address] Dec, [facility] [address] [id number] [address] [place] [address], [place] [address] Dec, [facility] [address] [id number] [address] [place] [address], [place] [address] Dec, [facility] [address] [id number] [address] [place] [address], [place] [address] Dec, [facility] [address] [id number] [address] [place] [address], [place] [address] Dec, [facility] [address] [id number] [address] [place] [address], [place] [address] Dec, [facility] [address] [id number] [address] [place] [address], [place] [address] Dec, [facility] [address] [id number] [address] [place] [address], [place] [address] Nov, [facility] [address] [id number] [address] [place] [address], [place] [address] Nov, [facility] [address] [id number] [address] [place] [address], [place] [address] Nov, [facility] [address] [id number] [address] [place] [address], [place] [address] Nov, [facility] [address] [id number] [address] [place] [address], [place] [address] Nov, [facility] [address] [id number] [address] [place] [address], [place] [address] Nov, [facility] [address] [id number] [address] [address] Nov, 2013 [facility] [address] [id number] [address] [address] Nov, 2013 [facility] [address] [id number] [address] [address] Nov, 2013 [facility] [address] [id number] [address] [address] Nov, 2013 [facility] [address] [id number] [address] [place] [address], [place] [address] Nov, 2013 [facility] [address] [id number] [address] [place] [address], [place] [address] Nov, 2013 [facility] [address] [id number] [address] [place] [address], [place] [address] Nov, 2013 [facility] [address] [id number] [address] [place] [address], [place] [address] Nov, [facility] [address] [id number] [address] [place] [address], [place] [address] Nov, [facility] [address] [id number] [address] [place] [address], [place] [address] Oct, [facility] [address] [id number] [address] [place] [address], [place] [address] Oct, [facility] [address] [id number] [address] [place] [address], [place] [address] Oct, [facility] [address] [id number] [address] [place] [address], [place] [address] Oct, [facility] [address] [id number] [address] [place] [address], [place] [address] Oct, [facility] [address] [id number] [address] [place] [address], [place] [address] Oct, [facility] [address] [id number] [address] [place] [address], [place] [address] Oct, [facility] [address] [id number] [address] [address] Oct, [facility] [address] [id number] [address] [address] Oct, [facility] [address] [id number] [address] [address] Oct, [facility] [address] [id number] [address] [place] [address], [place] [address] Oct, [facility] [address] [id number] [address] [address] Oct, [facility] [address] [id number] [address] [place] [address], [place] [address] Oct, [facility] [address] [id number] [address] [place] [address], [place] [address] Oct, [facility] [address] [id number] [address] [place] [address], [place] [address] September, [facility] [address] [id number] [address] [place] [address], [place] [address] September, [facility] [address] [id number] [address] [place] [address], [place] [address] September, [facility] [address] [id number] [address] [place] [address], [place] [address] September, [facility] [address] [id number] [address] [place] [address], [place] [address] September, [facility] [address] [id number] [address] [place] [address], [place] [address] September, [facility] [address] [id number] [address] [place] [address], [place] [address] September, [facility] [address] [id number] [address] [address] September, [facility] [address] [id number] [address] [place] [address], [place] [address] September, [facility] [address] [id number] [address] [place] [address], [place] [address] September, [facility] [address] [id number] [address] [place] [address], [place] [address] September, [facility] [address] [id number] [address] [place] [address], [place] [address] September, [facility] [address] [id number] [address] [place] [address], [place] [address] September, [facility] [address] [id number] [address] [place] [address], [place] [address] Aug, [facility] [address] [id number] [address] [place] [address], [place] [address] Aug, [facility] [address] [id number] [address] [place] [address], [place] [address] Aug, [facility] [address] [id number] [address] [place] [address], [place] [address] Aug, [facility] [address] [id number] [address] [place] [address], [place] [address] Aug, [facility] [address] [id number] [address] [place] [address], [place] [address] Aug, [facility] [address] [id number] [address] [place] [address], [place] [address] Aug, [facility] [address] [id number] [address] [place] [address], [place] [address] Aug, [facility] [address] [id number] [address] [place] [address], [place] [address] Aug, [facility] [address] [id number] [address] [place] [address], [place] [address] Aug, [facility] [address] [id number] [address] [place] [address], [place] [address] Jul, [facility] [address] [id number] [address] [address] Jul, [facility] [address] [id number] [address] [address] Jul, [facility] [address] [id number] [address] [address] Jul, [facility] [address] [id number] [address] [place] [address], [place] [address] Jul, [facility] [address] [id number] [address] [place] [address], [place] [address] Jul, [facility] [address] [id number] [address] [place] [address], [place] [address] Jul, [facility] [address] [id number] [address] [place] [address], [place] [address] Jul, [facility] [address] [id number] [address] [place] [address], [place] [address] Jun, [facility] [address] [id number] [address] [place] [address], [place] [address] Jun, [facility] [address] [id number] [address] [place] [address], [place] [address] 14 Jun, 2013 [facility] [address] [id number] [address] [place] [address], [place] [address] 14 Jun, 2013 [facility] [address] [id number] [address] [place] [address], [place] [address] Jun, [facility] [address] [id number] [address] [place] [address], [place] [address] Jun, [facility] [address] [id number] [address] [place] [address], [place] [address] 06 Jun, 2013 [facility] [address] [id number] [address] [place] [address], [place] [address] Jun, [facility] [address] [id number] [address] [place] [address], [place] [address] 04 Jun, 2013 [facility] [address] [id number] [address] [place] [address], [place] [address] Jun, [facility] [address] [id number] [address] [place] [address], [place] [address] Jun, [facility] [address] [id number] [address] [place] [address], [place] [address] Jun, [facility] [address] [id number] [address] [place] [address], [place] [address] Jun, [facility] [address] [id number] [address] [place] [address], [place] [address] Jun, [facility] [address] [id number] [address] [place] [address], [place] [address] May, [facility] [address] [id number] [address] [place] [address], [place] [address] May, [facility] [address] [id number] [address] [place] [address], [place] [address] May, [facility] [address] [id number] [address] [place] [address], [place] [address] May, [facility] [address] [id number] [address] [place] [address], [place] [address] May, [facility] [address] [id number] [address] [place] [address], [place] [address] May, [facility] [address] [id number] [address] [place] [address], [place] [address] May, [facility] [address] [id number] [address] [place] [address], [place] [address] May, [facility] [address] [id number] [address] [place] [address], [place] [address] May, [facility] [address] [id number] [address] [place] [address], [place] [address] May, [facility] [address] [id number] [address] [place] [address], [place] [address] May, [facility] [address] [id number] [address] [place] [address], [place] [address] May, [facility] [address] [id number] [address] [place] [address], [place] [address] May, [facility] [address] [id number] [address] [place] [address], [place] [address] May, [facility] [address] [id number] [address] [place] [address], [place] [address] May, [facility] [address] [id number] [address] [place] [address], [place] [address] May, [facility] [address] [id number] [address] [place] [address], [place] [address] May, [facility] [address] [id number] [address] [place] [address], [place] [address] May, [facility] [address] [id number] [address] [place] [address], [place] [address] May, [facility] [address] [id number] [address] [place] [address], [place] [address] May, [facility] [address] [id number] [address] [place] [address], [place] [address] Apr, [facility] [address] [id number] [address] [place] [address], [place] [address] Apr, [facility] [address] [id number] [address] [place] [address], [place] [address] Apr, [facility] [address] [id number] [address] [place] [address], [place] [address] Apr, [facility] [address] [id number] [address] [place] [address], [place] [address] Apr, [facility] [address] [id number] [address] [place] [address] [place] [address] 19 Apr, 2013 [facility] [address] [id number] [address] [place] [address], [place] [address] 18 Apr, 2013 [facility] [address] [id number] [address] [place] [address], [place] [address] 18 Apr, 2013 [facility] [address] [id number] [address] [place] [address], [place] [address] 17 Apr, 2013 [facility] [address] [id number] [address] [place] [address], [place] [address] 17 Apr, 2013 [facility] [address] [id number] [address] [place] [address], [place] [address] Apr, [facility] [address] [id number] [address] [place] [address], [place] [address] Apr, [facility] [address] [id number] [address] [place] [address], [place] [address] Apr, [facility] [address] [id number] [address] [place] [address], [place] [address] Apr, [facility] [address] [id number] [address] [place] [address], [place] [address] [address], [address] [facility] [address] [id number] [address] [place] [address], [place] [address] 05 Apr, 2013 [facility] [address] [id number] [address] [place] [address], [place] [address] 04 Apr, 2013 [facility] [address] [id number] [address] [place] [address], [place] [address] 04 Apr, 2013 [facility] [address] [id number] [address] [place] [address], [place] [address] 27 Mar, 2013 [facility] [address] [id number] [address] [place] [address], [place] [address] 27 Mar, 2013 [facility] [address] [id number] [address] [place] [address], [place] [address] 14 Mar, 2013 [facility] [address] [id number] [address] [place] [address], [place] [address] Mar, [facility] [address] [id number] [address] [place] [address], [place] [address] Mar, [facility] [address] [id number] [address] [place] [address], [place] [address] Mar, [facility] [address] [id number] [address] [place] [address], [place] [address] Mar, [facility] [address] [id number] [address] [place] [address], [place] [address] Mar, [facility] [address] [id number] [address] [place] [address], [place] [address] Mar, [facility] [address] [id number] [address] [place] [address], [place] [address] Mar, [facility] [address] [id number] [address] [place] [address], [place] [address] Mar, [facility] [address] [id number] [address] [place] [address], [place] [address] Feb, [facility] [address] [id number] [address] [place] [address], [place] [address] Feb, [facility] [address] [id number] [address] [place] [address], [place] [address] Feb, [facility] [address] [id number] [address] [place] [address], [place] [address] Feb, [facility] [address] [id number] [address] [place] [address], [place] [address] Feb, [facility] [address] [id number] [address] [place] [address], [place] [address] Dec, [facility] [address] [id number] [address] [place] [address], [place] [address] Dec, [facility] [address] [id number] [address] [place] [address], [place] [address] Dec, [facility] [address] [id number] [address] [place] [address], [place] [address] Dec, [facility] [address] [id number] [address] [place] [address], [place] [address] Nov, [facility] [address] [id number] [address] [place] [address], [place] [address] Nov, [facility] [address] [id number] [address] [place] [address], [place] [address] Nov, [facility] [address] [id number] [address] [place] [address], [place] [address] Nov, [facility] [address] [id number] [address] [place] [address], [place] [address] Nov, [facility] [address] [id number] [address] [place] [address], [place] [address] Nov, [facility] [address] [id number] [address] [place] [address], [place] [address] Oct, [facility] [address] [id number] [address] [place] [address], [place] [address] Oct, [facility] [address] [id number] [address] [place] [address], [place] [address] Oct, [facility] [address] [id number] [address] [place] [address], [place] [address] Oct, [facility] [address] [id number] [address] [place] [address], [place] [address] September, [facility] [address] [id number] [address] [place] [address], [place] [address] September, [facility] [address] [id number] [address] [place] [address], [place] [address] September, [facility] [address] [id number] [address] [place] [address], [place] [address] September, [facility] [address] [id number] [address] [place] [address], [place] [address] September, [facility] [address] [id number] [address] [place] [address], [place] [address] September, [facility] [address] [id number] [address] [place] [address], [place] [address] September, [facility] [address] [id number] [address] [place] [address], [place] [address] September, [facility] [address] [id number] [address] [place] [address], [place] [address] Aug, [facility] [address] [id number] [address] [place] [address], [place] [address] Aug, [facility] [address] [id number] [address] [place] [address], [place] [address] Jul, [facility] [address] [id number] [address] [place] [address], [place] [address] Jun, [facility] [address] [id number] [address] [place] [address], [place] [address] May, [facility] [address] [id number] [address] [place] [address], [place] [address] May, [facility] [place] [address] [id number] [address] [place] [address], [place] [address] May, [facility] [address] [id number] [address] [place] [address], [place] [address] May, [facility] [address] [id number] [address] [place] [address], [place] [address] Apr, [facility] [address] [id number] [address] [place] [address], [place] [address] Apr, [facility] [address] [id number] [address] [place] [address], [place] [address] Apr, [facility] [address] [id number] [address] [place] [address], [place] [address] Apr, [facility] [address] [id number] [address] [place] [address], [place] [address] 22 Apr, 2012 [facility] [address] [id number] [address] [place] [address], [place] [address] 22 Apr, 2012 [facility] [address] [id number] [address] [place] [address], [place] [address] 17 Apr, 2012 [facility] [address] [id number] [address] [place] [address], [place] [address] 14 Apr, 2012 [facility] [address] [id number] [address] [place] [address], [place] [address] 14 Apr, 2012 [facility] [address] [id number] [address] [place] [address], [place] [address] 30 Mar, 2012 [facility] [address] [id number] [address] [place] [address], [place] [address] 30 Mar, 2012 [facility] [address] [id number] [address] [place] [address], [place] [address] 27 Mar, 2012 [facility] [address] [id number] [address] [place] [address], [place] [address] 27 Mar, 2012 [facility] [address] [id number] [address] [place] [address], [place] [address] 16 Mar, 2012 [facility] [address] [id number] [address] [place] [address], [place] [address] 16 Mar, 2012 [facility] [address] [id number] [address] [place] [address], [place] [address] 16 Mar, 2012 [facility] [address] [id number] [address] [place] [address], [place] [address] 16 Mar, 2012 [facility] [address] [id number] [address] [place] [address], [place] [address] 16 Mar, 2012 [facility] [address] [id number] [address] [place] [address], [place] [address] 16 Mar, 2012 [facility] [address] [id number] [address] [place] [address] 14 Mar, 2012 [facility] [address] [id number] [address] [place] [address], [place] [address] 14 Mar, 2012 [facility] [address] [id number] [address] [place] [address] Mar, [facility] [address] [id number] [address] [place] [address], [place] [address] Mar, [facility] [address] [id number] [address] [place] [id number] 06 Mar, 2012 [facility] [address] [id number] [address] [place] [address], [place] [address] Mar, [facility] [address] [id number] [address] [place] [address], [place] [address] Mar, [facility] [address] [id number] [address] [place] [address], [place] [address] Mar, [facility] [address] [id number] [address] [place] [address], [place] [address] Mar, [facility] [address] [id number] [address] [place] [address] Feb, [facility] [address] [id number] [address] [place] [address], [place] [address] Feb, [facility] [address] [id number] [address] [place] [address] Feb, [facility] [address] [id number] [address] [place] [address] Feb, [facility] [address] [id number] [address] [place] [address] Jan, [facility] [address] [id number] [address] [place] [id number] 06 Jan, 2012 [facility] [address] [id number] [address] [place] [address], [place] [address] Dec, [facility] [address] [id number] [address] [place] [address], [place] [address] Dec, [facility] [address] [id number] [address] [place] [address], [place] [address] Dec, [facility] [address] [id number] [address] [place] [address], [place] [address] Nov, [facility] [address] [id number] [address] [place] [address], [place] [address] Nov, [facility] [address] [id number] [address] [place] [address], [place] [address] Oct, [facility] [address] [id number] [address] [place] [address], [place] [address] Oct, [facility] [address] [id number] [address] [place] [address], [place] [address] September, [facility] [address] [id number] [address] [place] [address], [place] [address] September, [facility] [address] [id number] [address] [place] [address], [place] [address] September, [facility] [address] [id number] [address] [place] [address], [place] [address] September, [facility] [address] [id number] [address] [place] [address], [place] [address] Aug, [facility] [address] [id number] [address] [place] [address], [place] [address] Jul, [facility] [address] [id number] [address] [place] [address], [place] [address] Jul, [facility] [address] [id number] [address] [place] [address], [place] [address] Jun, [facility] [address] [id number] [address] [place] [address], [place] [address] Jun, [facility] [address] [id number] [address] [place] [address] [address] Jun, [facility] [address] [id number] [address] [place] [address], [place] [address] May, [facility] [address] [id number] [address] [place] [address], [place] [address] May, [facility] [address] [id number] [address] [place] [address], [place] [address] May, [facility] [address] [id number] [address] [place] [address], [place] [address] May, [facility] [address] [id number] [address] [place] [address], [place] [address] Apr, [facility] [address] [id number] [address] [place] [address], [place] [address] Apr, [facility] [address] [id number] [address] [place] [address], [place] [address] Apr, [facility] [address] [id number] [address] [place] [address], [place] [address] Mar, [facility] [address] [id number] [address] [place] [address], [place] [address] Mar, [facility] [address] [id number] [address] [place] [address], [place] [address] Mar, [facility] [address] [id number] [address] [place] [address] Mar, [facility] [address] [id number] [address] [place] [address] Mar, [facility] [address] [id number] [address] [place] [address], [place] [address] Feb, [facility] [address] [id number] [address] [place] [address], [place] [address] Feb, [facility] [address] [id number] [address] [place] [address] Feb, [facility] [address] [id number] [address] [place] [address], [place] [address] 12 Feb, 2011 [facility] [address] [id number] [address] [place] [address], [place] [address] 12 Feb, 2011 [facility] [address] [id number] [address] [place] [address], [place] [address] 12 Feb, 2011 [facility] [address] [id number] [address] [place] [address], [place] [address] 11 Feb, 2011 [facility] [address] [id number] [address] [place] [address], [place] [address] 28 Apr, 2010 [facility] [address] [id number] [address] [place] [address], [place] [address] 23 Apr, 2010 [facility] [address] [id number] [address] [place] [address], [place] [address] 15 Apr, 2010 [facility] [address] [id number] [address] [place] [address], [place] [address] 15 Apr, 2010 [facility] [address] [id number] [address] [place] [address], [place] [address] 02 Apr, 2010 [facility] [address] [id number] [address] [place] [address], [place] [address] 02 Apr, 2010 [facility] [address] [id number] [address] [place] [address], [place] [address] 18 Mar, 2010 [facility] [address] [id number] [address] [place] [address], [place] [address] 18 Mar, 2010 [facility] [address] [id number] [address] [place] [address], [place] [address] 17 Mar, 2010 [facility] [address] [id number] [address] [place] [address], [place] [address] 16 Mar, 2010 [facility] [address] [id number] [address] [place] [address], [place] [address] 10 Mar, 2010 [facility] [address] [id number] [address] [place] [address], [place] [address] Mar, [facility] [address] [id number] [address] [place] [address], [place] [address] Mar, [facility] [address] [id number] [address] [place] [address] Mar, [facility] [address] [id number] [address] [place] [address], [place] [address] Feb, [facility] [address] [id number] [address] [place] [address], [place] [address] Feb, [facility] [address] [id number] [address] [place] [address], [place] [address] Dec, [facility] [address] [id number] [address] [place] [address], [place] [address] Jun, [facility] [address] [id number] [address] [place] [address] Jun, [facility] [address] [id number] [address] [place] [address] May, [facility] [address] [id number] [address] [place] [address] Feb, [facility] [address] [id number] [address] [place] [address] Feb, [facility] [address] [id number] [address] [place] [address] 19 Feb, 2009 [facility] [address] [id number] [address] [place] [address] 15 Feb, 2009 [facility] [address] [id number] [address] [place] [address] 15 Feb, 2009 [facility] [address] [id number] [address] [place] [address] 13 Feb, 2009 [facility] [address] [id number] [address] [place] [address] 13 Feb, 2009 [facility] [address] [id number] [address] [place] [address] Jul, [facility] [place] [address] [facility] [id number] [address] [place] [address] Jun, IMMUNIZATIONS No Known Immunizations SOCIAL HISTORY Never Assessed REASON FOR VISIT PLAN OF CARE VITAL SIGNS Height 66 in 2012-11-09 Weight 299.3 lbs 2012-11-09 Temperature 98.6 degrees Fahrenheit 2012-11-09 Heart Rate 96 bpm 2012-11-09 Respiratory Rate 18 2012-11-09 Blood pressure systolic 140 mmHg 2012-11-09 Blood pressure diastolic 80 mmHg 2012-11-09 MEDICATIONS Unknown Medications RESULTS No Results PROCEDURES [...] 08/2014 Hospitalization History Rt hand post op infection-[facility] 7 Hospitalization History cellulitus Right elbow-[facility] 12/09/16
--- OUTSIDE RECORDS SUMMARY | 2019-10-27 22:06 | XMS REPORT ---
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 [address] [facility] [id number] [address] [place] [id number] Feb, Essential (primary) hyperten danny I10 and Spider bite T63.301A [place] [address] [facility] [id number] [address] [place] [phone] Jan, [facility] [address] [facility] [id number] [address] [place] [id number] Jan, 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 [facility] [address] [facility] [id number] [address] [place] [phone] Dec, 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 [facility] [address] [facility] [id number] [address] [place] [phone] Dec, Chronic pain disorder 338.4 [facility] [address] [facility] [id number] [address] [place] [id number] 14 Dec, 2014 Toenail avulsion 893.0 [facility] [address] [facility] [id number] [address] [place] [id number] Dec, Generalized anxiety disorder 300.02 and Posttraumatic stress disorder 309.81 [facility] [address] [facility] [id number] [address] [place] [phone] Dec, Foot pain, right 729.5 ; Hyp ertension 401.9 and Chronic pain 338.29 [facility] [address] [facility] [id number] [address] [place] [phone] Nov, [facility] [address] [facility] [id number] [address] [place] [id number] Nov, [facility] [address] [facility] [id number] [address] [place] [phone] Oct, [facility] [address] [facility] [id number] [address] [place] [phone] Oct, [facility] [address] [facility] [id number] [address] [place] [id number] Oct, [facility] [address] [facility] [id number] [address] [place] [id number] Oct, [facility] [address] [facility] [id number] [address] [place] [id number] Oct, [facility] [address] [place] [id number] [address] [place] [id number] Oct, Major depressive disorder, r ecurrent episode, unspecified 296.30 and Anxiety state 300.00 [facility] [address] [facility] [id number] [address] [place] [id number] Oct, Spider bite 989.5 [facility] [address] [place] [id number] [address] [place] [phone] Oct, [facility] [address] [place] [id number] [address] [place] [id number] September, Contact dermatitis 692.9 and Sciatica 724.3 [facility] [address] [place] [id number] [address] [place] [id number] September, [facility] [address] [place] [id number] [address] [place] [id number] September, Generalized anxiety disorder 300.02 ; Posttraumatic stress disorder 309.81 and Depression, major, recurrent, in partial remission 296.35 [facility] [address] [place] [id number] [address] [place] [phone] September, Cellulitis 682.9 [facility] [address] [place] [id number] [address] [place] [id number] September, [facility] [address] [place] [id number] [address] [place] [phone] September, [facility] [address] [place] [id number] [address] [place] [phone] Aug, [facility] [address] [place] [id number] [address] [place] [phone] Aug, [facility] [address] [place] [id number] [address] [place] [phone] Aug, [facility] [address] [place] [id number] [address] [place] [id number] 13 Aug, 2014 [facility] [address] [id number] [address] [place] [address], [place] [id number] Jul, [facility] [address] [id number] [address] [place] [address], [place] [id number] 27 Jul, 2014 [facility] [address] [id number] [address] [place] [address], [place] [id number] Jul, [facility] [address] [id number] [address] [place] [address], [place] [id number] 27 Jul, 2014 [facility] [address] [id number] [address] [place] [address], [place] [id number] 24 Jul, 2014 [facility] [address] [id number] [address] [place] [address], [place] [id number] Jul, [facility] [address] [id number] [address] [place] [address], [place] [id number] Jul, [facility] [address] [id number] [address] [place] [address], [place] [id number] Jul, [facility] [address] [id number] [address] [place] [address], [place] [id number] Jul, [facility] [address] [id number] [address] [place] [address], [place] [id number] 05 Jul, 2014 [facility] [address] [id number] [address] [place] [address], [place] [id number] 05 Jul, 2014 [facility] [address] [id number] [address] [place] [address], [place] [id number] 04 Jul, 2014 [facility] [address] [id number] [address] [place] [address], [place] [id number] 04 Jul, 2014 [facility] [address] [id number] [address] [place] [address], [place] [address] Jul, [facility] [address] [id number] [address] [place] [address], [place] [address] Jul, [facility] [address] [id number] [address] [place] [address], [place] [id number] Jun, 2014 [facility] [address] [id number] [address] [place] [address], [place] [address] Jun, 2014 [facility] [address] [id number] [address] [place] [address], [place] [address] Jun, 2014 [facility] [address] [id number] [address] [place] [address], [place] [address] Jun, 2014 [facility] [address] [id number] [address] [place] [address], [place] [address] Jun, 2014 [facility] [address] [id number] [address] [place] [address], [place] [address] Jun, 2014 [facility] [address] [id number] [address] [place] [address], [place] [address] Jun, 2014 [facility] [address] [id number] [address] [place] [address], [place] [address] Jun, 2014 [facility] [address] [id number] [address] [place] [address], [place] [address] Jun, 2014 [facility] [address] [id number] [address] [place] [address], [place] [address] Jun, 2014 [facility] [address] [id number] [address] [place] [address], [place] [address] Jun, 2014 [facility] [address] [id number] [address] [place] [address], [place] [address] Jun, 2014 [facility] [address] [id number] [address] [place] [address], [place] [address] Jun, 2014 [facility] [address] [id number] [address] [place] [address], [place] [address] Jun, 2014 [facility] [address] [id number] [address] [place] [address], [place] [id number] Jun, 2014 [facility] [address] [id number] [address] [place] [address], [place] [address] Jun, 2014 [facility] [address] [id number] [address] [place] [address], [place] [address] Jun, 2014 [facility] [address] [id number] [address] [place] [address], [place] [address] Jun, 2014 [facility] [address] [id number] [address] [place] [address], [place] [address] Jun, 2014 [facility] [address] [id number] [address] [place] [address], [place] [address] Jun, 2014 [facility] [address] [id number] [address] [place] [address], [place] [address] Jun, 2014 [facility] [address] [id number] [address] [place] [address], [place] [address] Jun, 2014 [facility] [address] [id number] [address] [place] [address], [place] [address] Jun, 2014 [facility] [address] [id number] [address] [place] [address], [place] [address] Jun, [facility] [address] [id number] [address] [place] [address], [place] [address] Jun, [facility] [address] [id number] [address] [place] [address], [place] [address] May, [facility] [address] [id number] [address] [place] [address], [place] [address] May, [facility] [address] [id number] [address] [place] [address], [place] [address] May, [facility] [address] [id number] [address] [place] [address], [place] [address] May, [facility] [address] [id number] [address] [place] [address], [place] [address] May, [facility] [address] [id number] [address] [place] [address], [place] [address] May, [facility] [address] [id number] [address] [place] [address], [place] [address] May, [facility] [address] [id number] [address] [place] [address], [place] [address] May, [facility] [address] [id number] [address] [place] [address], [place] [address] May, [facility] [address] [id number] [address] [place] [address], [place] [address] May, [facility] [address] [id number] [address] [place] [address], [place] [address] May, [facility] [address] [id number] [address] [place] [address], [place] [address] May, [facility] [address] [id number] [address] [place] [address], [place] [address] May, [facility] [address] [id number] [address] [place] [address], [place] [address] May, [facility] [address] [id number] [address] [place] [address], [place] [address] May, [facility] [address] [id number] [address] [place] [address], [place] [address] May, [facility] [address] [id number] [address] [place] [address], [place] [address] May, [facility] [address] [id number] [address] [place] [address], [place] [address] Apr, [facility] [address] [id number] [address] [place] [address], [place] [address] Apr, [facility] [address] [id number] [address] [place] [address], [place] [address] Apr, [facility] [address] [id number] [address] [place] [address], [place] [address] Apr, [facility] [address] [id number] [address] [place] [address], [place] [address] Mar, [facility] [address] [id number] [address] [place] [address], [place] [address] Mar, [facility] [address] [id number] [address] [place] [address], [place] [address] Mar, [facility] [address] [id number] [address] [place] [address], [place] [address] Mar, [facility] [address] [id number] [address] [place] [address], [place] [address] Mar, [facility] [address] [id number] [address] [place] [address], [place] [address] Mar, [facility] [address] [id number] [address] [place] [address], [place] [address] 16 Feb, 2014 [facility] [address] [id number] [address] [place] [address], [place] [address] 16 Feb, 2014 [facility] [address] [id number] [address] [place] [address], [place] [address] 18 Jan, 2014 [facility] [address] [id number] [address] [place] [address], [place] [address] 18 Jan, 2014 [facility] [address] [id number] [address] [place] [address], [place] [address] 18 Jan, 2014 [facility] [address] [id number] [address] [place] [address], [place] [address] 18 Jan, 2014 [facility] [address] [id number] [address] [place] [address], [place] [address] 12 Jan, 2014 [facility] [address] [id number] [address] [place] [address], [place] [address] 12 Jan, 2014 [facility] [address] [id number] [address] [place] [address], [place] [id number] Jan, 2014 [facility] [address] [id number] [address] [place] [id number] Jan, [facility] [address] [id number] [address] [place] [address], [place] [address] Jan, [facility] [address] [id number] [address] [place] [address], [place] [address] Jan, [facility] [address] [id number] [address] [place] [address], [place] [address] Dec, [facility] [address] [id number] [address] [place] [address], [place] [address] Dec, [facility] [address] [id number] [address] [place] [address], [place] [address] Dec, [facility] [address] [id number] [address] [place] [address], [place] [address] Dec, [facility] [address] [id number] [address] [place] [address], [place] [address] Dec, [facility] [address] [id number] [address] [place] [address], [place] [address] Dec, [facility] [address] [id number] [address] [place] [address], [place] [address] Dec, [facility] [address] [id number] [address] [place] [address], [place] [address] Dec, [facility] [address] [id number] [address] [place] [address], [place] [address] Dec, [facility] [address] [id number] [address] [place] [address], [place] [address] Nov, [facility] [address] [id number] [address] [place] [address], [place] [address] Nov, [facility] [address] [id number] [address] [place] [address], [place] [address] Nov, [facility] [address] [id number] [address] [place] [address], [place] [address] Nov, [facility] [address] [id number] [address] [place] [address], [place] [address] Nov, 2013 [facility] [address] [id number] [address] [place] [address], [place] [address] Nov, 2013 [facility] [address] [id number] [address] [place] [address], [place] [address] Nov, [facility] [address] [id number] [address] [place] [address], [place] [address] Nov, 2013 [facility] [address] [id number] [address] [place] [address], [place] [address] Nov, 2013 [facility] [address] [id number] [address] [place] [address], [place] [address] Nov, [facility] [address] [id number] [address] [place] [address], [place] [address] Nov, 2013 [facility] [address] [id number] [address] [place] [address], [place] [address] Nov, [facility] [address] [id number] [address] [place] [address], [place] [address] Nov, [facility] [address] [id number] [address] [place] [address], [place] [address] Nov, [facility] [address] [id number] [address] [place] [address], [place] [address] Nov, [facility] [address] [id number] [address] [place] [address], [place] [address] Oct, [facility] [address] [id number] [address] [place] [address], [place] [address] Oct, [facility] [address] [id number] [address] [place] [address], [place] [address] Oct, [facility] [address] [id number] [address] [place] [address], [place] [address] Oct, [facility] [address] [id number] [address] [place] [address], [place] [address] Oct, [facility] [address] [id number] [facility] [place] [address] Oct, [facility] [address] [id number] [facility] [place] [address] Oct, [facility] [address] [id number] [facility] [place] [address] Oct, [facility] [address] [id number] [facility] [place] [address] Oct, [facility] [address] [id number] [facility] [place] [address] Oct, [facility] [address] [id number] [address] [place] [address], [place] [address] Oct, [facility] [address] [id number] [address] [place] [address], [place] [address] Oct, [facility] [address] [id number] [address] [place] [address], [place] [address] Oct, [facility] [address] [id number] [address] [place] [address], [place] [address] Oct, [facility] [address] [id number] [address] [place] [address], [place] [address] September, [facility] [address] [id number] [address] [place] [address], [place] [address] September, [facility] [address] [id number] [address] [place] [address], [place] [address] September, [facility] [address] [id number] [address] [place] [address], [place] [address] September, [facility] [address] [id number] [address] [place] [address], [place] [address] September, [facility] [address] [id number] [address] [place] [address], [place] [address] September, [facility] [address] [id number] [address] [place] [address], [place] [address] September, [facility] [address] [id number] [facility] [place] [address] September, [facility] [address] [id number] [address] [place] [address], [place] [address] September, [facility] [address] [id number] [address] [place] [address], [place] [address] September, [facility] [address] [id number] [address] [place] [address], [place] [address] September, [facility] [address] [id number] [address] [place] [address], [place] [address] September, [facility] [address] [id number] [address] [place] [address], [place] [address] September, [facility] [address] [id number] [address] [place] [address], [place] [address] Aug, [facility] [address] [id number] [address] [place] [address], [place] [address] Aug, [facility] [address] [id number] [address] [place] [address], [place] [address] Aug, [facility] [address] [id number] [address] [place] [address], [place] [address] Aug, [facility] [address] [id number] [address] [place] [address], [place] [address] Aug, [facility] [address] [id number] [address] [place] [address], [place] [address] Aug, [facility] [address] [id number] [address] [place] [address], [place] [address] Aug, [facility] [address] [id number] [address] [place] [address], [place] [address] Aug, [facility] [address] [id number] [address] [place] [address], [place] [address] Aug, [facility] [address] [id number] [address] [place] [address], [place] [address] 09 Aug, 2013 [facility] [address] [id number] [facility] [place] [address] Jul, [facility] [address] [id number] [facility] [place] [address] Jul, [facility] [address] [id number] [facility] [place] [address] Jul, [facility] [address] [id number] [address] [place] [address], [place] [address] Jul, [facility] [address] [id number] [address] [place] [address], [place] [address] Jul, [facility] [address] [id number] [address] [place] [address], [place] [address] Jul, [facility] [address] [id number] [address] [place] [address], [place] [address] Jul, [facility] [address] [id number] [address] [place] [address], [place] [address] Jul, [facility] [address] [id number] [address] [place] [address], [place] [address] Jun, [facility] [address] [id number] [address] [place] [address], [place] [address] 27 Jun, 2013 [facility] [address] [id number] [address] [place] [address], [place] [address] 14 Jun, 2013 [facility] [address] [id number] [address] [place] [address], [place] [address] 14 Jun, 2013 [facility] [address] [id number] [address] [place] [address], [place] [address] Jun, [facility] [address] [id number] [address] [place] [address], [place] [address] Jun, [facility] [address] [id number] [address] [place] [address], [place] [address] Jun, [facility] [address] [id number] [facility] [place] [address] Jun, [facility] [address] [id number] [address] [place] [address], [place] [address] Jun, [facility] [address] [id number] [address] [place] [address], [place] [address] Jun, [facility] [address] [id number] [address] [place] [address], [place] [address] Jun, [facility] [address] [id number] [address] [place] [address], [place] [address] Jun, [facility] [address] [id number] [address] [place] [address], [place] [address] Jun, [facility] [address] [id number] [address] [place] [address], [place] [address] Jun, [facility] [address] [id number] [address] [place] [address], [place] [address] May, [facility] [address] [id number] [address] [place] [address], [place] [address] May, [facility] [address] [id number] [address] [place] [address], [place] [address] May, [facility] [address] [id number] [address] [place] [address], [place] [address] May, [facility] [address] [id number] [address] [place] [address], [place] [address] May, [facility] [address] [id number] [address] [place] [address], [place] [address] May, [facility] [address] [id number] [address] [place] [address], [place] [address] May, [facility] [address] [id number] [address] [place] [address], [place] [address] May, [facility] [address] [id number] [address] [place] [address], [place] [address] May, [facility] [address] [id number] [address] [place] [address], [place] [address] May, [facility] [address] [id number] [address] [place] [address], [place] [address] May, [facility] [address] [id number] [address] [place] [address], [place] [address] May, [facility] [address] [id number] [address] [place] [address], [place] [address] May, [facility] [address] [id number] [address] [place] [address], [place] [address] May, [facility] [address] [id number] [address] [place] [address], [place] [address] May, [facility] [address] [id number] [address] [place] [address], [place] [address] May, [facility] [address] [id number] [address] [place] [address], [place] [address] May, [facility] [address] [id number] [address] [place] [address], [place] [address] May, [facility] [address] [id number] [address] [place] [address], [place] [address] May, [facility] [address] [id number] [address] [place] [address], [place] [address] May, [facility] [address] [id number] [address] [place] [address], [place] [address] Apr, [facility] [address] [id number] [address] [place] [address], [place] [address] Apr, [facility] [address] [id number] [address] [place] [address], [place] [address] Apr, [facility] [address] [id number] [address] [place] [address], [place] [address] Apr, [facility] [address] [id number] [address] [place] [address], [place] [address] Apr, [facility] [address] [id number] [address] [place] [address], [place] [address] Apr, [facility] [address] [id number] [address] [place] [address], [place] [address] Apr, [facility] [address] [id number] [address] [place] [address], [place] [address] Apr, [facility] [address] [id number] [address] [place] [address], [place] [address] Apr, [facility] [address] [id number] [address] [place] [address], [place] [address] Apr, [facility] [address] [id number] [address] [place] [address], [place] [address] Apr, [facility] [address] [id number] [address] [place] [address], [place] [address] Apr, [facility] [address] [id number] [address] [place] [address], [place] [address] Apr, [facility] [address] [id number] [address] [place] [address], [place] [address] Apr, [facility] [address] [id number] [address] [place] [address], [place] [address] Apr, [facility] [address] [id number] [address] [place] [address] 05 Apr, 2013 [facility] [address] [id number] [address] [place] [address], [place] [address] Apr, [facility] [address] [id number] [address] [place] [address], [place] [address] Apr, [facility] [address] [id number] [address] [place] [address], [place] [address] Mar, [facility] [address] [id number] [address] [place] [address] Mar, [facility] [address] [id number] [address] [place] [address], [place] [address] Mar, [facility] [address] [id number] [address] [place] [address] Mar, [facility] [address] [id number] [address] [place] [address], [place] [address] Mar, [facility] [address] [id number] [address] [place] [address], [place] [address] Mar, [facility] [address] [id number] [address] [place] [address], [place] [address] Mar, [facility] [address] [id number] [address] [place] [address], [place] [address] Mar, [facility] [address] [id number] [address] [place] [address] Mar, [facility] [address] [id number] [address] [place] [address], [place] [address] Mar, [facility] [address] [id number] [address] [place] [address] Mar, [facility] [address] [id number] [address] [place] [address] Feb, [facility] [address] [id number] [address] [place] [address], [place] [address] Feb, [facility] [address] [id number] [address] [place] [address] Feb, [facility] [address] [id number] [address] [place] [address] Feb, [facility] [address] [id number] [address] [place] [address] Feb, [facility] [address] [id number] [address] [place] [id number] Dec, [facility] [address] [id number] [facility] [place] [address] Dec, [facility] [address] [id number] [address] [place] [address], [place] [address] Dec, [facility] [address] [id number] [address] [place] [address], [place] [address] Dec, [facility] [address] [id number] [address] [place] [address], [place] [address] Nov, [facility] [address] [id number] [address] [place] [address], [place] [address] Nov, [facility] [address] [id number] [address] [place] [address], [place] [address] Nov, [facility] [address] [id number] [address] [place] [address], [place] [address] Nov, [facility] [address] [id number] [address] [place] [address], [place] [address] Nov, [facility] [address] [id number] [address] [place] [address], [place] [address] Nov, [facility] [address] [id number] [address] [place] [address], [place] [address] Oct, [facility] [address] [id number] [address] [place] [address], [place] [address] Oct, [facility] [address] [id number] [address] [place] [address], [place] [address] Oct, [facility] [address] [id number] [address] [place] [address], [place] [address] Oct, [facility] [address] [id number] [address] [place] [address], [place] [address] September, [facility] [address] [id number] [address] [place] [address], [place] [address] September, [facility] [address] [id number] [address] [place] [address] [address] September, [facility] [address] [id number] [address] [place] [address], [place] [address] September, [facility] [address] [id number] [address] [place] [address], [place] [address] September, [facility] [address] [id number] [address] [place] [address], [place] [address] September, [facility] [address] [id number] [address] [place] [address], [place] [address] September, [facility] [address] [id number] [address] [place] [address], [place] [address] September, [facility] [address] [id number] [address] [place] [address], [place] [address] Aug, [facility] [address] [id number] [address] [place] [address], [place] [address] Aug, [facility] [address] [id number] [address] [place] [address], [place] [address] Jul, [facility] [address] [id number] [address] [place] [address], [place] [address] Jun, [facility] [address] [id number] [address] [place] [address], [place] [address] May, [facility] [address] [id number] [address] [place] [address], [place] [address] May, [facility] [address] [id number] [address] [place] [address], [place] [address] May, [facility] [address] [id number] [address] [place] [address], [place] [address] May, [facility] [address] [id number] [address] [place] [address], [place] [address] Apr, [facility] [address] [id number] [address] [place] [address], [place] [address] Apr, [facility] [address] [id number] [address] [place] [address], [place] [address] 28 Apr, 2012 [facility] [address] [id number] [address] [place] [address], [place] [address] 28 Apr, 2012 [facility] [address] [id number] [address] [place] [address], [place] [address] 22 Apr, 2012 [facility] [address] [id number] [address] [place] [address], [place] [address] 22 Apr, 2012 [facility] [address] [id number] [address] [place] [address], [place] [address] 17 Apr, 2012 [facility] [address] [id number] [address] [place] [address], [place] [address] 14 Apr, 2012 [facility] [address] [id number] [address] [place] [address], [place] [address] 14 Apr, 2012 [facility] [address] [id number] [address] [place] [address], [place] [id number] 30 Mar, 2012 [facility] [address] [id number] [address] [place] [address], [place] [address] 30 Mar, 2012 [facility] [address] [id number] [address] [place] [address], [place] [address] 27 Mar, 2012 [facility] [address] [id number] [address] [place] [address], [place] [address] 27 Mar, 2012 [facility] [address] [id number] [address] [place] [address], [place] [address] 16 Mar, 2012 [facility] [address] [id number] [address] [place] [address], [place] [id number] 16 Mar, 2012 [facility] [address] [id number] [address] [place] [address], [place] [address] 16 Mar, 2012 [facility] [address] [id number] [address] [place] [address], [place] [address] 16 Mar, 2012 [facility] [address] [id number] [address] [place] [address], [place] [address] 16 Mar, 2012 [facility] [address] [id number] [address] [place] [address], [place] [address] 16 Mar, 2012 [facility] [address] [id number] [address] [place] [address], [place] [address] 14 Mar, 2012 [facility] [address] [id number] [address] [place] [address], [place] [address] 14 Mar, 2012 [facility] [address] [id number] [address] [place] [address], [place] [address] 13 Mar, 2012 [facility] [address] [id number] [address] [place] [address], [place] [address] 13 Mar, 2012 [facility] [address] [id number] [address] [place] [address], [place] [address] 06 Mar, 2012 [facility] [address] [id number] [address] [place] [address], [place] [address] Mar, [facility] [address] [id number] [address] [place] [address], [place] [address] Mar, [facility] [address] [id number] [address] [place] [address], [place] [address] Mar, [facility] [address] [id number] [address] [place] [address], [place] [address] Mar, [facility] [address] [id number] [address] [place] [address], [place] [address] Feb, [facility] [address] [id number] [address] [place] [id number] Feb, [facility] [address] [id number] [address] [place] [address], [place] [address] Feb, [facility] [address] [id number] [address] [place] [address], [place] [address] Feb, [facility] [address] [id number] [address] [place] [address], [place] [address] Jan, [facility] [address] [id number] [address] [place] [id number] Jan, [facility] [address] [id number] [address] [place] [address], [place] [address] Dec, [facility] [address] [id number] [address] [place] [address], [place] [address] Dec, [facility] [address] [id number] [address] [place] [address], [place] [address] Dec, [facility] [address] [id number] [address] [place] [address], [place] [address] Nov, [facility] [address] [id number] [address] [place] [address], [place] [address] Nov, [facility] [address] [id number] [address] [place] [address], [place] [address] Oct, [facility] [address] [id number] [address] [place] [place] [address], [place] [address] Oct, [facility] [address] [id number] [address] [place] [address], [place] [address] September, [facility] [address] [id number] [address] [place] [address], [place] [address] September, [facility] [address] [id number] [address] [place] [address], [place] [address] September, [facility] [address] [id number] [address] [place] [address], [place] [address] September, [facility] [address] [id number] [address] [place] [address], [place] [address] Aug, [facility] [address] [id number] [address] [place] [address], [place] [address] Jul, [facility] [address] [id number] [address] [place] [address], [place] [address] Jul, [facility] [address] [id number] [address] [place] [address], [place] [address] Jun, [facility] [address] [id number] [address] [place] [address], [place] [address] 20 Jun, 2011 [facility] [address] [id number] [address] [place] [address], [place] [address] Jun, [facility] [address] [id number] [address] [place] [address], [place] [address] May, [facility] [address] [id number] [address] [place] [address], [place] [address] May, [facility] [address] [id number] [address] [place] [address], [place] [address] May, [facility] [address] [id number] [address] [place] [address], [place] [address] May, [facility] [address] [id number] [address] [place] [address], [place] [address] Apr, [facility] [address] [id number] [address] [place] [address], [place] [address] Apr, [facility] [address] [id number] [address] [place] [address], [place] [address] Apr, [facility] [address] [id number] [address] [place] [address], [place] [address] Mar, [facility] [address] [id number] [address] [place] [address], [place] [address] Mar, [facility] [address] [id number] [address] [place] [address], [place] [address] Mar, [facility] [address] [id number] [address] [place] [address], [place] [address] Mar, [facility] [address] [id number] [address] [place] [address], [place] [address] Mar, [facility] [address] [id number] [address] [place] [address], [place] [address] Feb, [facility] [address] [id number] [address] [place] [address] [address] 25 Feb, 2011 [facility] [address] [id number] [address] [place] [address], [place] [address] 17 Feb, 2011 [facility] [address] [id number] [address] [place] [address], [place] [address] 12 Feb, 2011 [facility] [address] [id number] [address] [place] [address], [place] [address] Feb, [facility] [address] [id number] [address] [place] [address], [place] [address] 12 Feb, 2011 [facility] [address] [id number] [address] [place] [address], [place] [address] Feb, [facility] [address] [id number] [address] [place] [address], [place] [address] 28 Apr, 2010 [facility] [address] [id number] [address] [place] [address], [place] [address] 23 Apr, 2010 [facility] [address] [id number] [address] [place] [address], [place] [address] 15 Apr, 2010 [facility] [address] [id number] [address] [place] [address], [place] [address] 15 Apr, 2010 [facility] [address] [id number] [address] [place] [address], [place] [address] 02 Apr, 2010 [facility] [address] [id number] [address] [place] [address], [place] [address] 02 Apr, 2010 [facility] [address] [id number] [address] [place] [address], [place] [address] 18 Mar, 2010 [facility] [address] [id number] [address] [place] [address], [place] [address] 18 Mar, 2010 [facility] [address] [id number] [address] [place] [address], [place] [id number] 17 Mar, 2010 [facility] [address] [id number] [address] [place] [address], [place] [address] 16 Mar, 2010 [facility] [address] [id number] [address] [place] [id number] 10 Mar, 2010 [facility] [address] [id number] [address] [place] [address], [place] [address] 10 Mar, 2010 [facility] [address] [id number] [address] [place] [address], [place] [address] Mar, [facility] [address] [id number] [address] [place] [address], [place] [address] Mar, [facility] [address] [id number] [address] [place] [address], [place] [address] Feb, [facility] [address] [id number] [address] [place] [address], [place] [address] Feb, [facility] [address] [id number] [address] [place] [address], [place] [address] Dec, [facility] [address] [id number] [address] [place] [address], [place] [address] Jun, [facility] [address] [id number] [address] [place] [address], [place] [address] Jun, [facility] [address] [id number] [address] [place] [address], [place] [address] May, [facility] [address] [id number] [address] [place] [address], [place] [address] 26 Feb, 2009 [facility] [address] [id number] [address] [place] [address], [place] [address] 19 Feb, 2009 [facility] [address] [id number] [address] [place] [id number] 19 Feb, 2009 [facility] [address] [id number] [address] [place] [address], [place] [address] 15 Feb, 2009 [facility] [address] [id number] [address] [place] [id number] 15 Feb, 2009 [facility] [address] [id number] [address] [place] [id number] Feb, [facility] [address] [facility] [id number] [address] [place] [id number] Feb, [facility] [address] [facility] [id number] [address] [place] [id number] Jul, [facility] [address] [facility] [id number] [address] [place] [id number] Jun, IMMUNIZATIONS No Known Immunizations SOCIAL HISTORY [...] 08/2014 Hospitalization History Rt hand post op infection-[facility] 7 Hospitalization History cellulitus Right elbow-[facility] 12/09/16
[2019-10-27 22:07] LABS: BILIRUBIN,TOTAL 0.4 MG/DL (0.1-1.0)
--- OUTSIDE RECORDS SUMMARY | 2019-10-27 22:07 | XMS REPORT ---
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 [place] [id number] 17 Dec, 2014 Chronic pain disorder 338.4 [facility] [address] [place] [id number] [place] [address] 14 Dec, 2014 Toenail avulsion 893.0 [facility] [address] [place] [id number] [address] [place] [address] Dec, Generalized anxiety disorder 300.02 and Posttraumatic stress disorder 309.81 [facility] [address] [place] [id number] [address] [place] [id number] 07 Dec, 2014 Foot pain, right 729.5 ; Hyp ertension 401.9 and Chronic pain 338.29 [facility] [id number] [place] [address] Nov, [facility] [address] [place] [id number] [address] [place] [phone] Nov, [facility] [address] [place] [id number] [address] [place] [phone] Oct, [facility] [address] [place] [id number] [address] [place] [phone] Oct, [facility] [address] [place] [id number] [address] [place] [phone] Oct, [facility] [address] [place] [id number] [address] [place] [address] Oct, [facility] [address] [place] [id number] [address] [place] [address] Oct, [facility] [address] [place] [id number] [address] [place] [address] 10 Oct, 2014 Major depressive disorder, r ecurrent episode, unspecified 296.30 and Anxiety state 300.00 [facility] [address] [facility] [id number] [address] [place] [address] 10 Oct, 2014 Spider bite 989.5 [facility] [address] [facility] [id number] [address] [place] [phone] Oct, [facility] [address] [place] [id number] [address] [place] [address] September, Contact dermatitis 692.9 and Sciatica 724.3 [facility] [address] [facility] [id number] [address] [place] [address] September, [facility] [address] [place] [id number] [address] [place] [address] September, Generalized anxiety disorder 300.02 ; Posttraumatic stress disorder 309.81 and Depression, major, recurrent, in partial remission 296.35 [facility] [address] [place] [id number] [address] [place] [address] September, Cellulitis 682.9 [facility] [address] [facility] [id number] [address] [place] [address] September, [facility] [address] [place] [id number] [address] [place] [phone] September, [facility] [address] [place] [id number] [address] [place] [phone] Aug, [facility] [address] [place] [id number] [address] [place] [phone] Aug, [facility] [address] [facility] [id number] [address] [place] [phone] Aug, [facility] [address] [facility] [id number] [address] [place] [phone] Aug, [facility] [address] [facility] [id number] [address] [place] [id number] Jul, [facility] [address] [facility] [id number] [address] [place] [id number] Jul, [facility] [address] [id number] [facility] [place] [address] Jul, [facility] [address] [id number] [address] [place] [address], [place] [address] Jul, [facility] [address] [id number] [address] [place] [address], [place] [address] Jul, [facility] [address] [id number] [address] [place] [address], [place] [address] Jul, [facility] [address] [id number] [address] [place] [address], [place] [address] Jul, [facility] [address] [id number] [address] [place] [address], [place] [phone] Jul, [facility] [address] [id number] [address] [place] [address], [place] [address] Jul, [facility] [address] [id number] [address] [place] [address], [place] [address] Jul, [facility] [address] [id number] [address] [place] [address], [place] [address] Jul, [facility] [address] [id number] [address] [place] [address], [place] [address] Jul, [facility] [address] [id number] [address] [place] [address], [place] [address] Jul, [facility] [address] [id number] [address] [place] [address], [place] [address] Jul, [facility] [address] [id number] [address] [place] [address], [place] [address] Jul, [facility] [address] [id number] [address] [place] [address], [place] [address] Jun, [facility] [address] [id number] [address] [place] [address], [place] [address] Jun, [facility] [address] [id number] [address] [place] [address], [place] [address] Jun, 2014 [facility] [address] [id number] [address] [place] [address], [place] [address] Jun, 2014 [facility] [address] [id number] [address] [place] [address], [place] [address] Jun, 2014 [facility] [address] [id number] [address] [place] [address], [place] [address] 24 Jun, 2014 [facility] [address] [id number] [address] [place] [address], [place] [address] Jun, 2014 [facility] [address] [id number] [address] [place] [address], [place] [address] Jun, 2014 [facility] [address] [id number] [address] [place] [address], [place] [address] Jun, 2014 [facility] [address] [id number] [address] [place] [address], [place] [address] 20 Jun, 2014 [facility] [address] [id number] [address] [place] [address], [place] [address] 20 Jun, 2014 [facility] [address] [id number] [address] [place] [address], [place] [address] 17 Jun, 2014 [facility] [address] [id number] [address] [place] [phone] 17 Jun, 2014 [facility] [address] [id number] [address] [place] [address], [place] [address] 12 Jun, 2014 [facility] [address] [id number] [address] [place] [phone] 12 Jun, 2014 [facility] [address] [id number] [address] [place] [address], [place] [address] 10 Jun, 2014 [facility] [address] [id number] [address] [place] [id number] 10 Jun, 2014 [facility] [address] [id number] [address] [place] [phone] Jun, 2014 [facility] [address] [id number] [address] [place] [address], [place] [address] Jun, 2014 [facility] [address] [id number] [address] [place] [address], [place] [address] Jun, 2014 [facility] [address] [id number] [address] [place] [address], [place] [address] Jun, 2014 [facility] [address] [id number] [address] [place] [phone] Jun, 2014 [facility] [address] [id number] [address] [place] [address], [place] [address] Jun, 2014 [facility] [address] [id number] [address] [place] [address], [place] [address] Jun, [facility] [address] [id number] [address] [place] [phone] Jun, [facility] [address] [id number] [address] [place] [phone] May, [facility] [address] [id number] [address] [place] [phone] May, [facility] [address] [id number] [address] [place] [phone] May, [facility] [address] [id number] [address] [place] [phone] May, [facility] [address] [id number] [address] [place] [phone] May, [facility] [address] [id number] [address] [place] [id number] May, [facility] [address] [id number] [address] [place] [phone] May, [facility] [address] [id number] [address] [place] [phone] May, [facility] [address] [id number] [address] [place] [address], [place] [address] May, [facility] [address] [id number] [address] [place] [address], [place] [address] May, [facility] [address] [id number] [address] [place] [address], [place] [address] May, [facility] [address] [id number] [address] [place] [address], [place] [address] May, [facility] [address] [id number] [address] [place] [address], [place] [address] May, [facility] [address] [id number] [address] [place] [address], [place] [address] May, [facility] [address] [id number] [address] [place] [address], [place] [address] May, [facility] [address] [id number] [address] [place] [address], [place] [address] May, [facility] [address] [id number] [address] [place] [address], [place] [address] May, [facility] [address] [id number] [address] [place] [address], [place] [address] Apr, [facility] [address] [id number] [address] [place] [address], [place] [address] Apr, [facility] [address] [id number] [address] [place] [address], [place] [address] Apr, [facility] [address] [id number] [address] [place] [address], [place] [address] Apr, [facility] [address] [id number] [address] [place] [address], [place] [address] Mar, [facility] [address] [id number] [address] [place] [address], [place] [address] Mar, [facility] [address] [id number] [address] [place] [address], [place] [address] 17 Mar, 2014 [facility] [address] [id number] [address] [place] [address], [place] [address] 17 Mar, 2014 [facility] [address] [id number] [address] [place] [address], [place] [address] Mar, [facility] [address] [id number] [address] [place] [address], [place] [address] Mar, [facility] [address] [id number] [address] [place] [address], [place] [address] 16 Feb, 2014 [facility] [address] [id number] [address] [place] [address], [place] [address] 16 Feb, 2014 [facility] [address] [id number] [address] [place] [address], [place] [address] 18 Jan, 2014 [facility] [address] [id number] [address] [place] [address], [place] [address] 18 Jan, 2014 [facility] [address] [id number] [address] [place] [id number] 18 Jan, 2013 [facility] [address] [id number] [address] [place] [phone] 18 Jan, 2014 [facility] [address] [id number] [address] [place] [phone] 12 Jan, 2014 [facility] [address] [id number] [address] [place] [phone] 12 Jan, 2013 [facility] [address] [id number] [address] [place] [id number] 09 Jan, 2013 [facility] [address] [id number] [address] [place] [address], [place] [address] 09 Jan, 2013 [facility] [address] [id number] [address] [place] [phone] 02 Jan, 2013 [facility] [address] [id number] [address] [place] [id number] 02 Jan, 2013 [facility] [address] [id number] [facility] [place] [address] Dec, [facility] [address] [id number] [address] [place] [address], [place] [address] Dec, [facility] [address] [id number] [address] [place] [address], [place] [address] Dec, [facility] [address] [id number] [address] [place] [address], [place] [address] Dec, [facility] [address] [id number] [address] [place] [address], [place] [address] Dec, [facility] [address] [id number] [address] [place] [address], [place] [address] Dec, [facility] [address] [id number] [address] [place] [address], [place] [address] Dec, [facility] [address] [id number] [address] [place] [address], [place] [address] Dec, [facility] [address] [id number] [address] [place] [address], [place] [address] Dec, [facility] [address] [id number] [address] [place] [address], [place] [address] Nov, [facility] [address] [id number] [address] [place] [address], [place] [address] Nov, [facility] [address] [id number] [address] [place] [address], [place] [address] Nov, [facility] [address] [id number] [address] [place] [address], [place] [id number] Nov, [facility] [address] [id number] [address] [place] [address], [place] [address] Nov, [facility] [address] [id number] [address] [place] [address], [place] [address] Nov, [facility] [address] [id number] [address] [place] [address], [place] [address] Nov, [facility] [address] [id number] [address] [place] [address], [place] [address] Nov, 2013 [facility] [address] [id number] [address] [place] [address], [place] [address] Nov, 2013 [facility] [address] [id number] [address] [place] [address], [place] [address] Nov, 2013 [facility] [address] [id number] [address] [place] [address], [place] [address] Nov, 2013 [facility] [address] [id number] [address] [place] [address], [place] [address] Nov, [facility] [address] [id number] [address] [place] [address], [place] [address] Nov, [facility] [address] [id number] [address] [place] [address], [place] [address] Nov, [facility] [address] [id number] [address] [place] [address], [place] [address] Nov, [facility] [address] [id number] [address] [place] [address], [place] [address] Oct, [facility] [address] [id number] [address] [place] [address], [place] [address] Oct, [facility] [address] [id number] [address] [place] [address], [place] [address] Oct, [facility] [address] [id number] [address] [place] [address], [place] [address] Oct, [facility] [address] [id number] [address] [place] [address], [place] [address] Oct, [facility] [address] [id number] [address] [place] [address], [place] [address] Oct, [facility] [address] [id number] [address] [place] [address], [place] [address] Oct, [facility] [address] [id number] [address] [place] [address], [place] [address] Oct, [facility] [address] [id number] [facility] [place] [address] Oct, [facility] [address] [id number] [address] [place] [address], [place] [address] Oct, [facility] [address] [id number] [address] [place] [address], [place] [address] Oct, [facility] [address] [id number] [address] [place] [address], [place] [address] Oct, [facility] [address] [id number] [address] [place] [address], [place] [address] Oct, [facility] [address] [id number] [address] [place] [address], [place] [address] Oct, [facility] [address] [id number] [address] [place] [address], [place] [address] September, [facility] [address] [id number] [address] [place] [address], [place] [address] September, [facility] [address] [id number] [address] [place] [address], [place] [address] September, [facility] [address] [id number] [address] [place] [address], [place] [address] September, [facility] [address] [id number] [address] [place] [address], [place] [address] September, [facility] [address] [id number] [address] [place] [address], [place] [address] September, [facility] [address] [id number] [address] [place] [address], [place] [address] September, [facility] [address] [id number] [address] [place] [address], [place] [address] September, [facility] [address] [id number] [address] [place] [address], [place] [address] September, [facility] [address] [id number] [address] [place] [address], [place] [address] September, [facility] [address] [id number] [address] [place] [address], [place] [address] September, [facility] [address] [id number] [address] [place] [address], [place] [address] September, [facility] [address] [id number] [address] [place] [address], [place] [address] September, [facility] [address] [id number] [address] [place] [address], [place] [address] Aug, [facility] [address] [id number] [address] [place] [address], [place] [address] Aug, [facility] [address] [id number] [address] [place] [address], [place] [address] Aug, [facility] [address] [id number] [address] [place] [address], [place] [address] Aug, [facility] [address] [id number] [address] [place] [address], [place] [address] Aug, [facility] [address] [id number] [address] [place] [address], [place] [address] Aug, [facility] [address] [id number] [address] [place] [address], [place] [address] Aug, [facility] [address] [id number] [address] [place] [address], [place] [address] Aug, [facility] [address] [id number] [address] [place] [address], [place] [address] Aug, [facility] [address] [id number] [address] [place] [address], [place] [address] Aug, [facility] [address] [id number] [address] [place] [address], [place] [address] Jul, [facility] [address] [id number] [address] [place] [address], [place] [address] Jul, [facility] [address] [id number] [facility] [place] [address] Jul, [facility] [address] [id number] [address] [place] [address], [place] [address] Jul, [facility] [address] [id number] [address] [place] [address], [place] [address] Jul, [facility] [address] [id number] [address] [place] [address], [place] [address] Jul, [facility] [address] [id number] [address] [place] [address], [place] [address] Jul, [facility] [address] [id number] [address] [place] [address], [place] [address] Jul, [facility] [address] [id number] [address] [place] [address], [place] [address] Jun, [facility] [address] [id number] [address] [place] [address], [place] [address] 27 Jun, 2013 [facility] [address] [id number] [address] [place] [address], [place] [address] 14 Jun, 2013 [facility] [address] [id number] [address] [place] [address], [place] [address] 14 Jun, 2013 [facility] [address] [id number] [address] [place] [address], [place] [address] Jun, [facility] [address] [id number] [address] [place] [address], [place] [address] Jun, [facility] [address] [id number] [address] [place] [address], [place] [address] 06 Jun, 2013 [facility] [address] [id number] [address] [place] [address], [place] [address] 06 Jun, 2013 [facility] [address] [id number] [address] [place] [address], [place] [address] 04 Jun, 2013 [facility] [address] [id number] [address] [place] [address], [place] [address] 04 Jun, 2013 [facility] [address] [id number] [address] [place] [address], [place] [address] Jun, [facility] [address] [id number] [address] [place] [address], [place] [address] Jun, [facility] [address] [id number] [address] [place] [address], [place] [address] Jun, [facility] [address] [id number] [address] [place] [address], [place] [address] Jun, [facility] [address] [id number] [address] [place] [address], [place] [address] May, [facility] [address] [id number] [address] [place] [address], [place] [address] May, [facility] [address] [id number] [address] [place] [address], [place] [address] May, [facility] [address] [id number] [address] [place] [address], [place] [address] May, [facility] [address] [id number] [address] [place] [address], [place] [address] May, [facility] [address] [id number] [address] [place] [address], [place] [address] May, [facility] [address] [id number] [address] [place] [address], [place] [address] May, [facility] [address] [id number] [address] [place] [address], [place] [address] May, [facility] [address] [id number] [address] [place] [address], [place] [address] May, [facility] [address] [id number] [address] [place] [address], [place] [address] May, [facility] [address] [id number] [address] [place] [address], [place] [address] May, [facility] [address] [id number] [address] [place] [address], [place] [address] May, [facility] [address] [id number] [address] [place] [address], [place] [address] May, [facility] [address] [id number] [address] [place] [address], [place] [address] May, [facility] [address] [id number] [address] [place] [address], [place] [address] May, [facility] [address] [id number] [address] [place] [address], [place] [address] May, [facility] [address] [id number] [address] [place] [address], [place] [address] May, [facility] [address] [id number] [address] [place] [address], [place] [address] May, [facility] [address] [id number] [address] [place] [address], [place] [address] May, [facility] [address] [id number] [address] [place] [address], [place] [address] May, [facility] [address] [id number] [address] [place] [address], [place] [address] Apr, [facility] [address] [id number] [address] [place] [address], [place] [address] Apr, [facility] [address] [id number] [address] [place] [address], [place] [address] Apr, [facility] [address] [id number] [address] [place] [address], [place] [address] Apr, [facility] [address] [id number] [address] [place] [address], [place] [address] Apr, [facility] [address] [id number] [address] [place] [address], [place] [address] Apr, [facility] [address] [id number] [address] [place] [address], [place] [address] 18 Apr, 2013 [facility] [address] [id number] [address] [place] [address], [place] [address] 18 Apr, 2013 [facility] [address] [id number] [address] [place] [address], [place] [address] 17 Apr, 2013 [facility] [address] [id number] [address] [place] [address], [place] [address] 17 Apr, 2013 [facility] [address] [id number] [address] [place] [address], [place] [address] 12 Apr, 2013 [facility] [address] [id number] [address] [place] [address], [place] [address] 12 Apr, 2013 [facility] [address] [id number] [address] [place] [address], [place] [address] Apr, [facility] [address] [id number] [address] [place] [address], [place] [address] Apr, [facility] [address] [id number] [address] [place] [address], [place] [address] 05 Apr, 2013 [facility] [address] [id number] [address] [place] [address], [place] [address] 05 Apr, 2013 [facility] [address] [id number] [address] [place] [address], [place] [address] 04 Apr, 2013 [facility] [address] [id number] [address] [place] [address], [place] [address] 04 Apr, 2013 [facility] [address] [id number] [address] [place] [address], [place] [address] 27 Mar, 2013 [facility] [address] [id number] [address] [place] [address], [place] [address] 27 Mar, 2013 [facility] [address] [id number] [address] [place] [address], [place] [address] 14 Mar, 2013 [facility] [address] [id number] [address] [place] [address], [place] [address] Mar, [facility] [address] [id number] [address] [place] [address], [place] [address] Mar, [facility] [address] [id number] [address] [place] [address], [place] [address] Mar, [facility] [address] [id number] [address] [place] [address], [place] [address] Mar, [facility] [address] [id number] [address] [place] [address], [place] [address] Mar, [facility] [address] [id number] [address] [place] [address], [place] [address] Mar, [facility] [address] [id number] [address] [place] [address], [place] [address] Mar, [facility] [address] [id number] [address] [place] [address], [place] [address] Mar, [facility] [address] [id number] [address] [place] [address], [place] [address] Feb, [facility] [address] [id number] [address] [place] [address], [place] [address] Feb, [facility] [address] [id number] [address] [place] [address], [place] [address] Feb, [facility] [address] [id number] [address] [place] [address] Feb, [facility] [address] [id number] [address] [place] [address] Feb, [facility] [address] [id number] [address] [place] [address], [place] [address] Dec, [facility] [address] [id number] [address] [place] [address], [place] [address] Dec, [facility] [address] [id number] [address] [place] [address] Dec, [facility] [address] [id number] [address] [place] [address] Dec, [facility] [address] [id number] [address] [place] [address], [place] [address] Nov, [facility] [address] [id number] [address] [place] [address], [place] [address] Nov, [facility] [address] [id number] [address] [place] [address], [place] [address] Nov, [facility] [address] [id number] [address] [place] [address], [place] [address] Nov, [facility] [address] [id number] [address] [place] [address], [place] [address] Nov, [facility] [address] [id number] [address] [place] [address], [place] [address] Nov, [facility] [address] [id number] [address] [place] [address], [place] [address] Oct, [facility] [address] [id number] [address] [place] [address], [place] [address] Oct, [facility] [address] [id number] [address] [place] [address], [place] [address] Oct, [facility] [address] [id number] [address] [place] [address], [place] [address] Oct, [facility] [address] [id number] [address] [place] [address], [place] [address] September, [facility] [address] [id number] [address] [place] [address], [place] [address] September, [facility] [address] [id number] [address] [place] [address], [place] [address] September, [facility] [address] [id number] [address] [place] [address], [place] [address] September, [facility] [address] [id number] [address] [place] [address], [place] [address] September, [facility] [address] [id number] [address] [place] [address], [place] [address] September, [facility] [address] [id number] [address] [place] [address], [place] [address] September, [facility] [address] [id number] [address] [place] [address], [place] [address] September, [facility] [address] [id number] [address] [place] [address], [place] [address] Aug, [facility] [address] [id number] [address] [place] [address], [place] [address] Aug, [facility] [address] [id number] [address] [place] [address], [place] [address] Jul, [facility] [address] [id number] [address] [place] [address], [place] [address] Jun, [facility] [address] [id number] [address] [place] [address], [place] [address] May, [facility] [address] [id number] [address] [place] [address], [place] [address] May, [facility] [address] [id number] [address] [place] [address], [place] [address] May, [facility] [address] [id number] [address] [place] [address], [place] [address] May, [facility] [address] [id number] [address] [place] [address], [place] [address] Apr, [facility] [address] [id number] [address] [place] [address], [place] [address] Apr, [facility] [address] [id number] [address] [place] [address], [place] [address] Apr, [facility] [address] [id number] [address] [place] [address], [place] [address] Apr, [facility] [address] [id number] [address] [place] [address], [place] [address] 22 Apr, 2012 [facility] [address] [id number] [address] [place] [address], [place] [address] 22 Apr, 2012 [facility] [address] [id number] [address] [place] [address], [place] [address] 17 Apr, 2012 [facility] [address] [id number] [address] [place] [address], [place] [address] 14 Apr, 2012 [facility] [address] [id number] [address] [place] [address], [place] [address] 14 Apr, 2012 [facility] [address] [id number] [address] [place] [address], [place] [address] 30 Mar, 2012 [facility] [address] [id number] [address] [place] [address], [place] [address] 30 Mar, 2012 [facility] [address] [id number] [address] [place] [address], [place] [address] 27 Mar, 2012 [facility] [address] [id number] [address] [place] [address], [place] [address] 27 Mar, 2012 [facility] [address] [id number] [address] [place] [address], [place] [address] 16 Mar, 2012 [facility] [address] [id number] [address] [place] [address], [place] [address] 16 Mar, 2012 [facility] [address] [id number] [address] [place] [address], [place] [address] 16 Mar, 2012 [facility] [address] [id number] [address] [place] [address], [place] [address] 16 Mar, 2012 [facility] [address] [id number] [address] [place] [address], [place] [address] 16 Mar, 2012 [facility] [address] [id number] [address] [place] [address], [place] [address] 16 Mar, 2012 [facility] [address] [id number] [address] [place] [address], [place] [address] 14 Mar, 2012 [facility] [address] [id number] [address] [place] [address], [place] [address] 14 Mar, 2012 [facility] [address] [id number] [address] [place] [address], [place] [address] 13 Mar, 2012 [facility] [address] [id number] [address] [place] [address], [place] [address] Mar, [facility] [address] [id number] [address] [place] [address], [place] [address] Mar, [facility] [address] [id number] [address] [place] [address], [place] [address] Mar, [facility] [address] [id number] [address] [place] [address], [place] [address] Mar, [facility] [address] [id number] [address] [place] [address], [place] [address] Mar, [facility] [address] [id number] [address] [place] [address], [place] [address] Mar, [facility] [address] [id number] [address] [place] [address], [place] [address] Feb, [facility] [address] [id number] [address] [place] [address], [place] [address] Feb, [facility] [address] [id number] [address] [place] [address], [place] [address] Feb, [facility] [address] [id number] [address] [place] [address], [place] [address] Feb, [facility] [address] [id number] [address] [place] [address], [place] [address] Jan, [facility] [address] [id number] [address] [place] [address], [place] [address] Jan, [facility] [address] [id number] [address] [place] [address], [place] [address] Dec, [facility] [address] [id number] [address] [place] [address], [place] [address] Dec, [facility] [address] [id number] [address] [place] [address], [place] [address] Dec, [facility] [address] [id number] [address] [place] [address], [place] [address] Nov, [facility] [address] [id number] [address] [place] [address], [place] [address] Nov, [facility] [address] [id number] [address] [place] [address], [place] [address] Oct, [facility] [address] [id number] [address] [place] [address], [place] [address] Oct, [facility] [address] [id number] [address] [place] [address], [place] [address] September, [facility] [address] [id number] [address] [place] [address], [place] [address] September, [facility] [address] [id number] [address] [place] [address], [place] [address] September, [facility] [address] [id number] [address] [place] [address], [place] [address] September, [facility] [address] [id number] [address] [place] [address], [place] [address] Aug, [facility] [address] [id number] [address] [place] [address], [place] [address] Jul, [facility] [address] [id number] [address] [place] [address], [place] [address] Jul, [facility] [address] [id number] [address] [place] [address], [place] [address] Jun, [facility] [address] [id number] [address] [place] [address], [place] [address] Jun, [facility] [address] [id number] [address] [place] [address], [place] [address] Jun, [facility] [address] [id number] [address] [place] [id number] May, [facility] [address] [id number] [address] [place] [address], [place] [address] May, [facility] [address] [id number] [address] [place] [address], [place] [address] May, [facility] [address] [id number] [address] [place] [address], [place] [address] May, [facility] [address] [id number] [address] [place] [address], [place] [address] Apr, [facility] [address] [id number] [address] [place] [address], [place] [address] Apr, [facility] [address] [id number] [address] [place] [address], [place] [address] Apr, [facility] [address] [id number] [address] [place] [address], [place] [address] Mar, [facility] [address] [id number] [address] [place] [address], [place] [address] Mar, [facility] [address] [id number] 16 [place] [phone] Mar, [facility] [address] [id number] [address] [place] [address], [place] [id number] Mar, [facility] [address] [id number] [address] [place] [phone] Mar, [facility] [address] [id number] [address] [place] [phone] Feb, [facility] [address] [id number] [address] [place] [address], [place] [id number] Feb, [facility] [address] [id number] [address] [place] [address], [place] [phone] Feb, [facility] [address] [id number] [address] [place] [address], [place] [phone] Feb, [facility] [address] [id number] [address] [place] [address], [place] [id number] 12 Feb, 2011 [facility] [address] [id number] [address] [place] [address], [place] [id number] 12 Feb, 2011 [facility] [address] [id number] [address] [place] [address], [place] [id number] 11 Feb, 2011 [facility] [address] [id number] [address] [place] [address], [place] [id number] 28 Apr, 2010 [facility] [address] [id number] [address] [place] [address], [place] [id number] 23 Apr, 2010 [facility] [address] [id number] [address] [place] [address], [place] [phone] 15 Apr, 2010 [facility] [address] [id number] [address] [place] [address], [place] [id number] 15 Apr, 2010 [facility] [address] [id number] [address] [place] [address], [place] [id number] 02 Apr, 2010 [facility] [address] [id number] [address] [place] [address], [place] [phone] 02 Apr, 2010 [facility] [address] [id number] [address] [place] [address], [place] [id number] 18 Mar, 2010 [facility] [address] [id number] [address] [place] [address], [place] [phone] 18 Mar, 2010 [facility] [address] [id number] [address] [place] [address], [place] [id number] 17 Mar, 2010 [facility] [address] [id number] [address] [place] [address], [place] [id number] 16 Mar, 2010 [facility] [address] [id number] [address] [place] [address], [place] [id number] 10 Mar, 2010 [facility] [address] [id number] [address] [place] [address], [place] [id number] 10 Mar, 2010 [facility] [address] [id number] [address] [place] [address], [place] [id number] Mar, [facility] [address] [id number] [address] [place] [address], [place] [id number] 04 Mar, 2010 [facility] [address] [id number] [address] [place] [address], [place] [id number] Feb, [facility] [address] [id number] [address] [place] [address], [place] [id number] Feb, [facility] [address] [id number] [address] [place] [address], [place] [id number] Dec, [facility] [address] [id number] [address] [place] [address], [place] [phone] Jun, [facility] [address] [id number] [address] [place] [phone] Jun, [facility] [address] [id number] [address] [place] [address], [place] [id number] May, [facility] [address] [id number] [address] [place] [phone] Feb, [facility] [address] [id number] [address] [place] [phone] 19 Feb, 2009 [facility] [address] [id number] [address] [place] [phone] 19 Feb, 2009 [facility] [address] [id number] [address] [place] [phone] 15 Feb, 2009 [facility] [address] [id number] [address] [place] [phone] 15 Feb, 2009 [facility] [address] [id number] [address] [place] [phone] 13 Feb, 2009 [facility] [address] [id number] [address] [place] [phone] 13 Feb, 2009 [facility] [address] [id number] [address] [place] [id number] 17 Jul, 2008 [facility] [address] [id number] [facility] [place] [address] Jun, IMMUNIZATIONS No Known Immunizations SOCIAL HISTORY [...] 08/2014 Hospitalization History Rt hand post op infection-[facility] 7 Hospitalization History cellulitus Right elbow-[facility] 12/09/16
--- OUTSIDE RECORDS SUMMARY | 2019-10-27 22:07 | XMS REPORT ---
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 [id number] [address] [place] [phone] 17 Dec, 2014 Chronic pain disorder 338.4 [facility] [address] [place] [id number] [place] [phone] 14 Dec, 2014 Toenail avulsion 893.0 [facility] [address] [place] [id number] [address] [place] [phone] Dec, Generalized anxiety disorder 300.02 and Posttraumatic stress disorder 309.81 [facility] [address] [place] [id number] [address] [place] [id number] 07 Dec, 2014 Foot pain, right 729.5 ; Hyp ertension 401.9 and Chronic pain 338.29 [facility] [id number] [place] [phone] Nov, [facility] [address] [place] [id number] [address] [place] [phone] Nov, [facility] [address] [place] [id number] [address] [place] [id number] Oct, [facility] [address] [place] [id number] [address] [place] [phone] Oct, [facility] [address] [place] [id number] [address] [place] [phone] Oct, [facility] [address] [place] [id number] [address] [place] [id number] Oct, [facility] [address] [place] [id number] [address] [place] [phone] Oct, [facility] [address] [place] [id number] [address] [place] [phone] 10 Oct, 2014 Major depressive disorder, r ecurrent episode, unspecified 296.30 and Anxiety state 300.00 [facility] [address] [facility] [id number] [address] [place] [phone] 10 Oct, 2014 Spider bite 989.5 [facility] [address] [facility] [id number] [address] [place] [phone] Oct, [facility] [address] [place] [id number] [address] [place] [phone] September, Contact dermatitis 692.9 and Sciatica 724.3 [facility] [address] [facility] [id number] [address] [place] [phone] September, [facility] [address] [place] [id number] [address] [place] [id number] September, Generalized anxiety disorder 300.02 ; Posttraumatic stress disorder 309.81 and Depression, major, recurrent, in partial remission 296.35 [facility] [address] [place] [id number] [address] [place] [id number] September, Cellulitis 682.9 [facility] [address] [facility] [id number] [address] [place] [id number] September, [facility] [address] [place] [id number] [address] [place] [id number] September, [facility] [address] [place] [id number] [address] [place] [phone] Aug, [facility] [address] [place] [id number] [address] [place] [id number] Aug, [facility] [address] [facility] [id number] [address] [place] [phone] Aug, [facility] [address] [facility] [id number] [address] [place] [id number] Aug, [facility] [address] [facility] [id number] [address] [place] [phone] Jul, [facility] [address] [facility] [id number] [address] [place] [phone] Jul, [facility] [address] [id number] [facility] [place] [address] Jul, [facility] [address] [id number] [address] [place] [address], [place] [address] Jul, [facility] [address] [id number] [address] [place] [address], [place] [address] Jul, [facility] [address] [id number] [address] [place] [address], [place] [address] Jul, [facility] [address] [id number] [address] [place] [address], [place] [address] Jul, [facility] [address] [id number] [address] [place] [address], [place] [address] Jul, [facility] [address] [id number] [address] [place] [address], [place] [address] Jul, [facility] [address] [id number] [address] [place] [address], [place] [address] Jul, [facility] [address] [id number] [address] [place] [address], [place] [address] Jul, [facility] [address] [id number] [address] [place] [address], [place] [address] Jul, [facility] [address] [id number] [address] [place] [address], [place] [address] Jul, [facility] [address] [id number] [address] [place] [address], [place] [address] Jul, [facility] [address] [id number] [address] [place] [address], [place] [address] Jul, [facility] [address] [id number] [address] [place] [address], [place] [address] Jun, [facility] [address] [id number] [address] [place] [address], [place] [address] Jun, [facility] [address] [id number] [address] [place] [address], [place] [address] Jun, 2014 [facility] [address] [id number] [address] [place] [address], [place] [address] Jun, 2014 [facility] [address] [id number] [address] [place] [address], [place] [address] Jun, 2014 [facility] [address] [id number] [address] [place] [address], [place] [address] 24 Jun, 2014 [facility] [address] [id number] [address] [place] [address], [place] [address] Jun, 2014 [facility] [address] [id number] [address] [place] [address], [place] [address] Jun, 2014 [facility] [address] [id number] [address] [place] [address], [place] [address] Jun, 2014 [facility] [address] [id number] [address] [place] [address], [place] [address] 20 Jun, 2014 [facility] [address] [id number] [address] [place] [address], [place] [address] 20 Jun, 2014 [facility] [address] [id number] [address] [place] [address], [place] [address] 17 Jun, 2014 [facility] [address] [id number] [address] [place] [phone] 17 Jun, 2014 [facility] [address] [id number] [address] [place] [address], [place] [address] 12 Jun, 2014 [facility] [address] [id number] [address] [place] [id number] 12 Jun, 2014 [facility] [address] [id number] [address] [place] [address], [place] [address] 10 Jun, 2014 [facility] [address] [id number] [address] [place] [id number] 10 Jun, 2014 [facility] [address] [id number] [address] [place] [id number] Jun, 2014 [facility] [address] [id number] [address] [place] [address], [place] [address] Jun, 2014 [facility] [address] [id number] [address] [place] [address], [place] [address] Jun, 2014 [facility] [address] [id number] [address] [place] [address], [place] [address] Jun, 2014 [facility] [address] [id number] [address] [place] [phone] Jun, 2014 [facility] [address] [id number] [address] [place] [address], [place] [address] Jun, 2014 [facility] [address] [id number] [address] [place] [address], [place] [address] Jun, [facility] [address] [id number] [address] [place] [id number] Jun, [facility] [address] [id number] [address] [place] [phone] May, [facility] [address] [id number] [address] [place] [phone] May, [facility] [address] [id number] [address] [place] [phone] May, [facility] [address] [id number] [address] [place] [phone] May, [facility] [address] [id number] [address] [place] [phone] May, [facility] [address] [id number] [address] [place] [phone] May, [facility] [address] [id number] [address] [place] [id number] May, [facility] [address] [id number] [address] [place] [phone] May, [facility] [address] [id number] [address] [place] [address], [place] [address] May, [facility] [address] [id number] [address] [place] [address], [place] [address] May, [facility] [address] [id number] [address] [place] [address], [place] [address] May, [facility] [address] [id number] [address] [place] [address], [place] [address] May, [facility] [address] [id number] [address] [place] [address], [place] [address] May, [facility] [address] [id number] [address] [place] [address], [place] [address] May, [facility] [address] [id number] [address] [place] [address], [place] [address] May, [facility] [address] [id number] [address] [place] [address], [place] [address] May, [facility] [address] [id number] [address] [place] [address], [place] [address] May, [facility] [address] [id number] [address] [place] [address], [place] [address] Apr, [facility] [address] [id number] [address] [place] [address], [place] [address] Apr, [facility] [address] [id number] [address] [place] [address], [place] [address] Apr, [facility] [address] [id number] [address] [place] [address], [place] [address] Apr, [facility] [address] [id number] [address] [place] [address], [place] [address] Mar, [facility] [address] [id number] [address] [place] [address], [place] [address] Mar, [facility] [address] [id number] [address] [place] [address], [place] [address] 17 Mar, 2014 [facility] [address] [id number] [address] [place] [address], [place] [address] 17 Mar, 2014 [facility] [address] [id number] [address] [place] [address], [place] [address] Mar, [facility] [address] [id number] [address] [place] [address], [place] [address] Mar, [facility] [address] [id number] [address] [place] [address], [place] [address] 16 Feb, 2014 [facility] [address] [id number] [address] [place] [address], [place] [address] 16 Feb, 2014 [facility] [address] [id number] [address] [place] [address], [place] [address] 18 Jan, 2014 [facility] [address] [id number] [address] [place] [address], [place] [address] 18 Jan, 2014 [facility] [address] [id number] [address] [place] [address] 18 Jan, 2013 [facility] [address] [id number] [address] [place] [address] 18 Jan, 2014 [facility] [address] [id number] [address] [place] [address] 12 Jan, 2014 [facility] [address] [id number] [address] [place] [address] 12 Jan, 2013 [facility] [address] [id number] [address] [place] [id number] 09 Jan, 2013 [facility] [address] [id number] [address] [place] [address], [place] [address] 09 Jan, 2013 [facility] [address] [id number] [address] [place] [address] 02 Jan, 2013 [facility] [address] [id number] [address] [place] [address] 02 Jan, 2013 [facility] [address] [id number] [facility] [place] [address] Dec, [facility] [address] [id number] [address] [place] [address], [place] [address] Dec, [facility] [address] [id number] [address] [place] [address], [place] [address] Dec, [facility] [address] [id number] [address] [place] [address], [place] [address] Dec, [facility] [address] [id number] [address] [place] [address], [place] [address] Dec, [facility] [address] [id number] [address] [place] [address], [place] [address] Dec, [facility] [address] [id number] [address] [place] [address], [place] [address] Dec, [facility] [address] [id number] [address] [place] [address], [place] [address] Dec, [facility] [address] [id number] [address] [place] [address], [place] [address] Dec, [facility] [address] [id number] [address] [place] [address], [place] [address] Nov, [facility] [address] [id number] [address] [place] [address], [place] [address] Nov, [facility] [address] [id number] [address] [place] [address], [place] [address] Nov, [facility] [address] [id number] [address] [place] [address], [place] [address] Nov, [facility] [address] [id number] [address] [place] [address], [place] [address] Nov, [facility] [address] [id number] [address] [place] [address], [place] [address] Nov, [facility] [address] [id number] [address] [place] [address], [place] [address] Nov, [facility] [address] [id number] [address] [place] [address], [place] [address] Nov, 2013 [facility] [address] [id number] [address] [place] [address], [place] [address] Nov, 2013 [facility] [address] [id number] [address] [place] [address], [place] [address] Nov, 2013 [facility] [address] [id number] [address] [place] [address], [place] [address] Nov, 2013 [facility] [address] [id number] [address] [place] [address], [place] [address] Nov, [facility] [address] [id number] [address] [place] [address], [place] [address] Nov, [facility] [address] [id number] [address] [place] [address], [place] [address] Nov, [facility] [address] [id number] [address] [place] [address], [place] [address] Nov, [facility] [address] [id number] [address] [place] [address], [place] [address] Oct, [facility] [address] [id number] [address] [place] [address], [place] [address] Oct, [facility] [address] [id number] [address] [place] [address], [place] [address] Oct, [facility] [address] [id number] [address] [place] [address], [place] [address] Oct, [facility] [address] [id number] [address] [place] [address], [place] [address] Oct, [facility] [address] [id number] [address] [place] [address], [place] [address] Oct, [facility] [address] [id number] [address] [place] [address], [place] [address] Oct, [facility] [address] [id number] [address] [place] [address], [place] [address] Oct, [facility] [address] [id number] [facility] [place] [address] Oct, [facility] [address] [id number] [address] [place] [address], [place] [address] Oct, [facility] [address] [id number] [address] [place] [address], [place] [address] Oct, [facility] [address] [id number] [address] [place] [address], [place] [address] Oct, [facility] [address] [id number] [address] [place] [address], [place] [address] Oct, [facility] [address] [id number] [address] [place] [address], [place] [address] Oct, [facility] [address] [id number] [address] [place] [address], [place] [address] September, [facility] [address] [id number] [address] [place] [address], [place] [address] September, [facility] [address] [id number] [address] [place] [address], [place] [address] September, [facility] [address] [id number] [address] [place] [address], [place] [address] September, [facility] [address] [id number] [address] [place] [address], [place] [address] September, [facility] [address] [id number] [address] [place] [address], [place] [address] September, [facility] [address] [id number] [address] [place] [address], [place] [address] September, [facility] [address] [id number] [address] [place] [address], [place] [address] September, [facility] [address] [id number] [address] [place] [address], [place] [address] September, [facility] [address] [id number] [address] [place] [address], [place] [address] September, [facility] [address] [id number] [address] [place] [address], [place] [address] September, [facility] [address] [id number] [address] [place] [address], [place] [address] September, [facility] [address] [id number] [address] [place] [address], [place] [address] September, [facility] [address] [id number] [address] [place] [address], [place] [address] Aug, [facility] [address] [id number] [address] [place] [address], [place] [address] Aug, [facility] [address] [id number] [address] [place] [address], [place] [address] Aug, [facility] [address] [id number] [address] [place] [address], [place] [address] Aug, [facility] [address] [id number] [address] [place] [address], [place] [address] Aug, [facility] [address] [id number] [address] [place] [address], [place] [address] Aug, [facility] [address] [id number] [address] [place] [address], [place] [address] Aug, [facility] [address] [id number] [address] [place] [address], [place] [address] Aug, [facility] [address] [id number] [address] [place] [address], [place] [address] Aug, [facility] [address] [id number] [address] [place] [address], [place] [address] Aug, [facility] [address] [id number] [address] [place] [address], [place] [address] Jul, [facility] [address] [id number] [address] [place] [address], [place] [address] Jul, [facility] [address] [id number] [facility] [place] [address] Jul, [facility] [address] [id number] [address] [place] [address], [place] [address] Jul, [facility] [address] [id number] [address] [place] [address], [place] [address] Jul, [facility] [address] [id number] [address] [place] [address], [place] [address] Jul, [facility] [address] [id number] [address] [place] [address], [place] [address] Jul, [facility] [address] [id number] [address] [place] [address], [place] [address] Jul, [facility] [address] [id number] [address] [place] [address], [place] [address] Jun, [facility] [address] [id number] [address] [place] [address], [place] [address] 27 Jun, 2013 [facility] [address] [id number] [address] [place] [address], [place] [address] 14 Jun, 2013 [facility] [address] [id number] [address] [place] [address], [place] [address] 14 Jun, 2013 [facility] [address] [id number] [address] [place] [address], [place] [address] Jun, [facility] [address] [id number] [address] [place] [address], [place] [address] Jun, [facility] [address] [id number] [address] [place] [address], [place] [address] 06 Jun, 2013 [facility] [address] [id number] [address] [place] [address], [place] [address] 06 Jun, 2013 [facility] [address] [id number] [address] [place] [address], [place] [address] 04 Jun, 2013 [facility] [address] [id number] [address] [place] [address], [place] [address] 04 Jun, 2013 [facility] [address] [id number] [address] [place] [address], [place] [address] Jun, [facility] [address] [id number] [address] [place] [address], [place] [address] Jun, [facility] [address] [id number] [address] [place] [address], [place] [address] Jun, [facility] [address] [id number] [address] [place] [address], [place] [address] Jun, [facility] [address] [id number] [address] [place] [address], [place] [address] May, [facility] [address] [id number] [address] [place] [address], [place] [address] May, [facility] [address] [id number] [address] [place] [address], [place] [address] May, [facility] [address] [id number] [address] [place] [address], [place] [address] May, [facility] [address] [id number] [address] [place] [address], [place] [address] May, [facility] [address] [id number] [address] [place] [address], [place] [address] May, [facility] [address] [id number] [address] [place] [address], [place] [address] May, [facility] [address] [id number] [address] [place] [address], [place] [address] May, [facility] [address] [id number] [address] [place] [address], [place] [address] May, [facility] [address] [id number] [address] [place] [address], [place] [address] May, [facility] [address] [id number] [address] [place] [address], [place] [address] May, [facility] [address] [id number] [address] [place] [address], [place] [address] May, [facility] [address] [id number] [address] [place] [address], [place] [address] May, [facility] [address] [id number] [address] [place] [address], [place] [address] May, [facility] [address] [id number] [address] [place] [address], [place] [address] May, [facility] [address] [id number] [address] [place] [address], [place] [address] May, [facility] [address] [id number] [address] [place] [address], [place] [address] May, [facility] [address] [id number] [address] [place] [address], [place] [address] May, [facility] [address] [id number] [address] [place] [address], [place] [address] May, [facility] [address] [id number] [address] [place] [address], [place] [address] May, [facility] [address] [id number] [address] [place] [address], [place] [address] Apr, [facility] [address] [id number] [address] [place] [address], [place] [address] Apr, [facility] [address] [id number] [address] [place] [address], [place] [address] Apr, [facility] [address] [id number] [address] [place] [address], [place] [address] Apr, [facility] [address] [id number] [address] [place] [address], [place] [address] Apr, [facility] [address] [id number] [address] [place] [address], [place] [address] Apr, [facility] [address] [id number] [address] [place] [address], [place] [address] 18 Apr, 2013 [facility] [place] [address] [id number] [address] [place] [address], [place] [address] 18 Apr, 2013 [facility] [address] [id number] [address] [place] [address], [place] [address] 17 Apr, 2013 [facility] [address] [id number] [address] [place] [address], [place] [address] 17 Apr, 2013 [facility] [place] [address] [id number] [address] [place] [address], [place] [address] 12 Apr, 2013 [facility] [address] [id number] [address] [place] [address], [place] [address] 12 Apr, 2013 [facility] [address] [id number] [address] [place] [address], [place] [address] Apr, [facility] [address] [id number] [address] [place] [address], [place] [address] Apr, [facility] [address] [id number] [address] [place] [address], [place] [address] 05 Apr, 2013 [facility] [address] [id number] [address] [place] [address], [place] [address] 05 Apr, 2013 [facility] [address] [id number] [address] [place] [address], [place] [address] 04 Apr, 2013 [facility] [address] [id number] [address] [place] [address], [place] [address] 04 Apr, 2013 [facility] [address] [id number] [address] [place] [address], [place] [address] 27 Mar, 2013 [facility] [place] [address] [id number] [address] [place] [address], [place] [address] 27 Mar, 2013 [facility] [address] [id number] [address] [place] [address], [place] [address] 14 Mar, 2013 [facility] [address] [id number] [address] [place] [address], [place] [address] Mar, [facility] [address] [id number] [address] [place] [address], [place] [address] Mar, [facility] [address] [id number] [address] [place] [address], [place] [address] Mar, [facility] [address] [id number] [address] [place] [address], [place] [address] Mar, [facility] [address] [id number] [address] [place] [address], [place] [address] Mar, [facility] [address] [id number] [address] [place] [address], [place] [address] Mar, [facility] [address] [id number] [address] [place] [address], [place] [address] Mar, [facility] [address] [id number] [address] [place] [address], [place] [address] Mar, [facility] [address] [id number] [address] [place] [address], [place] [address] Feb, [facility] [address] [id number] [address] [place] [address], [place] [address] Feb, [facility] [address] [id number] [address] [place] [address], [place] [address] Feb, [facility] [address] [id number] [address] [place] [id number] Feb, [facility] [address] [id number] [address] [place] [address] Feb, [facility] [address] [id number] [address] [place] [address], [place] [address] Dec, [facility] [address] [id number] [address] [place] [address], [place] [address] Dec, [facility] [address] [id number] [address] [place] [id number] Dec, [facility] [address] [id number] [address] [place] [id number] Dec, [facility] [address] [id number] [address] [place] [address], [place] [address] Nov, [facility] [address] [id number] [address] [place] [address], [place] [address] Nov, [facility] [address] [id number] [address] [place] [address], [place] [address] Nov, [facility] [address] [id number] [address] [place] [address], [place] [address] Nov, [facility] [address] [id number] [address] [place] [address], [place] [address] Nov, [facility] [address] [id number] [address] [place] [address], [place] [address] Nov, [facility] [place] [address] [id number] [address] [place] [address], [place] [address] Oct, [facility] [address] [id number] [address] [place] [address], [place] [address] Oct, [facility] [place] [address] [id number] [address] [place] [address], [place] [address] Oct, [facility] [address] [id number] [address] [place] [address], [place] [address] Oct, [facility] [place] [address] [id number] [address] [place] [address], [place] [address] September, [facility] [address] [id number] [address] [place] [address], [place] [address] September, [facility] [address] [id number] [address] [place] [address], [place] [address] September, [facility] [address] [id number] [address] [place] [address], [place] [address] September, [facility] [address] [id number] [address] [place] [address], [place] [address] September, [facility] [address] [id number] [address] [place] [address], [place] [address] September, [facility] [address] [id number] [address] [place] [address], [place] [address] September, [facility] [address] [id number] [address] [place] [address], [place] [address] September, [facility] [address] [id number] [address] [place] [address], [place] [address] Aug, [facility] [address] [id number] [address] [place] [address], [place] [address] Aug, [facility] [address] [id number] [address] [place] [address], [place] [address] Jul, [facility] [address] [id number] [address] [place] [address], [place] [address] Jun, [facility] [address] [id number] [address] [place] [address], [place] [address] May, [facility] [address] [id number] [address] [place] [address], [place] [address] May, [facility] [address] [id number] [address] [place] [address], [place] [address] May, [facility] [address] [id number] [address] [place] [address], [place] [address] May, [facility] [address] [address] [id number] [address] [place] [address], [place] [address] Apr, [facility] [address] [id number] [address] [place] [address], [place] [address] Apr, [facility] [address] [id number] [address] [place] [address], [place] [address] Apr, [facility] [address] [id number] [address] [place] [address], [place] [address] Apr, [facility] [address] [id number] [address] [place] [address], [place] [address] 22 Apr, 2012 [facility] [address] [id number] [address] [place] [address], [place] [address] 22 Apr, 2012 [facility] [address] [id number] [address] [place] [address], [place] [address] 17 Apr, 2012 [facility] [address] [id number] [address] [place] [address], [place] [address] 14 Apr, 2012 [facility] [address] [id number] [address] [place] [address], [place] [address] 14 Apr, 2012 [facility] [address] [id number] [address] [place] [address], [place] [address] 30 Mar, 2012 [facility] [address] [id number] [address] [place] [address], [place] [address] 30 Mar, 2012 [facility] [address] [id number] [address] [place] [address], [place] [address] 27 Mar, 2012 [facility] [address] [id number] [address] [place] [address], [place] [address] 27 Mar, 2012 [facility] [address] [id number] [address] [place] [address], [place] [address] 16 Mar, 2012 [facility] [address] [id number] [address] [place] [address], [place] [address] 16 Mar, 2012 [facility] [address] [id number] [address] [place] [address], [place] [address] 16 Mar, 2012 [facility] [address] [id number] [address] [place] [address], [place] [address] 16 Mar, 2012 [facility] [address] [id number] [address] [place] [address], [place] [address] 16 Mar, 2012 [facility] [address] [id number] [address] [place] [address], [place] [address] 16 Mar, 2012 [facility] [address] [id number] [address] [place] [address], [place] [address] 14 Mar, 2012 [facility] [address] [id number] [address] [place] [address], [place] [address] 14 Mar, 2012 [facility] [address] [id number] [address] [place] [address], [place] [address] 13 Mar, 2012 [facility] [address] [id number] [address] [place] [address], [place] [address] Mar, [facility] [address] [id number] [address] [place] [address], [place] [address] Mar, [facility] [address] [id number] [address] [place] [address], [place] [address] Mar, [facility] [address] [id number] [address] [place] [address], [place] [address] Mar, [facility] [address] [id number] [address] [place] [address], [place] [address] Mar, [facility] [address] [id number] [address] [place] [address], [place] [address] Mar, [facility] [address] [id number] [address] [place] [address], [place] [address] Feb, [facility] [address] [id number] [address] [place] [address], [place] [address] Feb, [facility] [address] [id number] [address] [place] [address], [place] [address] Feb, [facility] [address] [id number] [address] [place] [address], [place] [address] Feb, [facility] [address] [id number] [address] [place] [address], [place] [address] Jan, [facility] [address] [id number] [address] [place] [address], [place] [address] Jan, [facility] [address] [id number] [address] [place] [address], [place] [address] Dec, [facility] [address] [id number] [address] [place] [address], [place] [address] Dec, [facility] [address] [id number] [address] [place] [address], [place] [address] Dec, [facility] [address] [id number] [address] [place] [address], [place] [address] Nov, [facility] [address] [id number] [address] [place] [address], [place] [address] Nov, [facility] [address] [id number] [address] [place] [address], [place] [address] Oct, [facility] [address] [id number] [address] [place] [address], [place] [address] Oct, [facility] [address] [id number] [address] [place] [address], [place] [address] September, [facility] [address] [id number] [address] [place] [address], [place] [address] September, [facility] [address] [id number] [address] [place] [address], [place] [address] September, [facility] [address] [id number] [address] [place] [address], [place] [address] September, [facility] [address] [id number] [address] [place] [address], [place] [address] Aug, [facility] [address] [id number] [address] [place] [address], [place] [address] Jul, [facility] [address] [id number] [address] [place] [address], [place] [address] Jul, [facility] [address] [id number] [address] [place] [address], [place] [address] Jun, [facility] [address] [id number] [address] [place] [address], [place] [address] Jun, [facility] [address] [id number] [address] [place] [address], [place] [address] Jun, [facility] [address] [id number] [address] [place] [address] May, [facility] [address] [id number] [address] [place] [address], [place] [address] May, [facility] [address] [id number] [address] [place] [address], [place] [address] May, [facility] [address] [id number] [address] [place] [address], [place] [address] May, [facility] [address] [id number] [address] [place] [address], [place] [address] Apr, [facility] [address] [id number] [address] [place] [address], [place] [address] Apr, [facility] [address] [id number] [address] [place] [address], [place] [address] Apr, [facility] [address] [id number] [address] [place] [address], [place] [address] Mar, [facility] [address] [id number] [address] [place] [address], [place] [address] Mar, [facility] [address] [id number] [address] [place] [address] Mar, [facility] [address] [id number] [address] [place] [address], [place] [address] Mar, [facility] [address] [id number] [address] [place] [address] Mar, [facility] [address] [id number] [address] [place] [address] Feb, [facility] [address] [id number] [address] [place] [address], [place] [address] Feb, [facility] [address] [id number] [address] [place] [address], [place] [address] Feb, [facility] [address] [id number] [address] [place] [address], [place] [address] Feb, [facility] [address] [id number] [address] [place] [address], [place] [address] 12 Feb, 2011 [facility] [address] [id number] [address] [place] [address], [place] [address] 12 Feb, 2011 [facility] [address] [id number] [address] [place] [address], [place] [address] 11 Feb, 2011 [facility] [address] [id number] [address] [place] [address], [place] [address] 28 Apr, 2010 [facility] [address] [id number] [address] [place] [address], [place] [address] 23 Apr, 2010 [facility] [address] [id number] [address] [place] [address], [place] [address] 15 Apr, 2010 [facility] [address] [id number] [address] [place] [address], [place] [address] 15 Apr, 2010 [facility] [address] [id number] [address] [place] [address], [place] [address] 02 Apr, 2010 [facility] [address] [id number] [address] [place] [address], [place] [address] 02 Apr, 2010 [facility] [address] [id number] [address] [place] [address], [place] [address] 18 Mar, 2010 [facility] [address] [id number] [address] [place] [address], [place] [address] 18 Mar, 2010 [facility] [address] [id number] [address] [place] [address], [place] [address] 17 Mar, 2010 [facility] [address] [id number] [address] [place] [address], [place] [address] 16 Mar, 2010 [facility] [address] [id number] [address] [place] [address], [place] [address] 10 Mar, 2010 [facility] [address] [id number] [address] [place] [address], [place] [address] 10 Mar, 2010 [facility] [address] [id number] [address] [place] [address], [place] [address] Mar, [facility] [address] [id number] [address] [place] [address], [place] [address] 04 Mar, 2010 [facility] [address] [id number] [address] [place] [address], [place] [address] Feb, [facility] [address] [id number] [address] [place] [address], [place] [address] Feb, [facility] [address] [id number] [address] [place] [address], [place] [address] Dec, [facility] [address] [id number] [address] [place] [address], [place] [address] Jun, [facility] [address] [id number] [address] [place] [address] Jun, [facility] [address] [id number] [address] [place] [address], [place] [address] May, [facility] [address] [id number] [address] [place] [address] Feb, [facility] [address] [id number] [address] [place] [address] 19 Feb, 2009 [facility] [address] [id number] [address] [place] [address] 19 Feb, 2009 [facility] [address] [id number] [address] [place] [address] 15 Feb, 2009 [facility] [address] [id number] [address] [place] [address] 15 Feb, 2009 [facility] [address] [id number] [address] [place] [address] 13 Feb, 2009 [facility] [address] [id number] [address] [place] [address] 13 Feb, 2009 [facility] [address] [id number] [address] [place] [address] 17 Jul, 2008 [facility] [address] [id number] [place] [address] Jun, IMMUNIZATIONS No Known Immunizations SOCIAL HISTORY [...] 08/2014 Hospitalization History Rt hand post op infection-[facility] 7 Hospitalization History cellulitus Right elbow-[facility] 12/09/16
[2019-10-27 22:08] LABS: ALKALINE PHOSPHATASE 107 U/L (40-136)
--- OUTSIDE RECORDS SUMMARY | 2019-10-27 22:08 | XMS REPORT ---
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 disorder F39 and Anxiety disorder, unspecified F41.9 [place] [address] [place] [id number] [address] [place] [phone] Mar, [place] [address] [place] [id number] [address] [place] [phone] Feb, Essential (primary) hyperten danny I10 and Bilateral low back pain without sciatica M54.5 [place] [address] [place] [id number] [address] [place] [id number] Feb, Essential (primary) hyperten danny I10 ; Spider bite T63.301A and Headache R51 [place] [address] [place] [id number] [address] [place] [id number] Feb, [place] [address] [place] [id number] [address] [place] [id number] Feb, [place] [address] [place] [id number] [address] [place] [phone] Feb, Essential (primary) hyperten danny I10 and Spider bite T63.301A [place] [address] [place] [id number] [address] [place] [address] Jan, [place] [address] [place] [id number] [address] [place] [phone] Jan, 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 [id number] [address] [place] [phone] 14 Dec, 2014 Toenail avulsion 893.0 [facility] [place] [address] [facility] [id number] [address] [place] [address] Dec, Generalized anxiety disorder 300.02 and Posttraumatic stress disorder 309.81 [facility], [place] [address] [address] Dec, Foot pain, right 729.5 ; Hyp ertension 401.9 and Chronic pain 338.29 [facility], [place] [address] [place] [id number] [address] [place] [address] Nov, [facility], [place] [address] [place] [id number] [place] [address] Nov, [facility], [place] [address] [id number] Oct, [facility], [place] [address] [place] [id number] [address] [place] [address] Oct, [facility], [place] [address] [phone] Oct, [facility], [place] [address] [place] [id number] [address] [place] [address] Oct, [facility], [place] [address] [address] Oct, [facility], [place] [address] [place] [id number] [address] [place] [address] Oct, Major depressive disorder, r ecurrent episode, unspecified 296.30 and Anxiety state 300.00 [facility], [place] [address] [place] [id number] [address] [place] [id number] 10 Oct, 2014 Spider bite 989.5 [facility], [place] [address] [place] [id number] [address] [place] [id number] 09 Oct, 2014 [facility], [place] [address] [id number] [address] [place] [address] September, Contact dermatitis 692.9 and Sciatica 724.3 [facility], [place] [address] [id number] [address] [place] [phone] September, [facility] [place] [address] [facility] [id number] [address] [place] [address] September, Generalized anxiety disorder 300.02 ; Posttraumatic stress disorder 309.81 and Depression, major, recurrent, in partial remission 296.35 [facility], [place] [address] [id number] [address] [place] [address] September, Cellulitis 682.9 [facility], [place] [address] [id number] [address] [place] [id number] September, [facility] [place] [address] [id number] [address] [place] [id number] September, [facility] [place] [address] [id number] [address] [place] [phone] Aug, [facility] [place] [address] [id number] [address] [place] [id number] Aug, [facility] [place] [address] [facility] [id number] [address] [place] [id number] Aug, [facility], [place] [address] [id number] [address] [place] [id number] Aug, [facility], [place] [address] [id number] [address] [place] [id number] Jul, [facility], [place] [address] [id number] [address] [place] [id number] Jul, [facility], [place] [address] [id number] [address] [place] [id number] Jul, [facility], [place] [address] [id number] [address] [place] [id number] Jul, [facility], [place] [address] [id number] [address] [place] [address], [place] [id number] 24 Jul, 2014 [facility] [address] [id number] [address] [place] [address], [place] [address] Jul, [facility] [address] [id number] [address] [place] [address], [place] [id number] Jul, [facility] [address] [id number] [address] [place] [address], [place] [address] Jul, 2014 [facility] [address] [id number] [address] [place] [address], [place] [address] Jul, [facility] [address] [id number] [address] [place] [address], [place] [id number] Jul, [facility] [address] [id number] [address] [place] [address], [place] [address] Jul, [facility] [address] [id number] [address] [place] [address], [place] [address] Jul, [facility] [address] [id number] [address] [place] [address], [place] [address] Jul, [facility] [address] [id number] [address] [place] [address], [place] [address] Jul, [facility] [address] [id number] [address] [place] [address], [place] [address] Jul, [facility] [address] [id number] [address] [place] [address], [place] [address] Jun, 2014 [facility] [address] [id number] [address] [place] [address], [place] [address] Jun, 2014 [facility] [address] [id number] [address] [place] [address], [place] [address] Jun, 2014 [facility] [address] [id number] [address] [place] [address], [place] [address] Jun, 2014 [facility] [address] [id number] [address] [place] [address], [place] [address] Jun, 2014 [facility] [address] [id number] [address] [place] [address], [place] [address] Jun, 2014 [facility] [address] [id number] [address] [place] [address], [place] [address] Jun, 2014 [facility] [address] [id number] [address] [place] [address], [place] [address] Jun, 2014 [facility] [address] [id number] [address] [place] [address], [place] [address] Jun, 2014 [facility] [address] [id number] [address] [place] [address], [place] [address] Jun, 2014 [facility] [address] [id number] [address] [place] [address], [place] [address] Jun, 2014 [facility] [address] [address] [id number] [address] [place] [address], [place] [address] Jun, 2014 [facility] [address] [id number] [address] [place] [address], [place] [address] Jun, 2014 [facility] [address] [id number] [address] [place] [address], [place] [address] Jun, 2014 [facility] [address] [id number] [address] [place] [address], [place] [address] Jun, 2014 [facility] [address] [id number] [address] [place] [address], [place] [address] Jun, 2014 [facility] [address] [id number] [address] [place] [address], [place] [address] Jun, 2014 [facility] [address] [id number] [address] [place] [address], [place] [address] Jun, 2014 [facility] [address] [id number] [address] [place] [address], [place] [address] Jun, 2014 [facility] [address] [id number] [address] [place] [address], [place] [address] Jun, 2014 [facility] [address] [id number] [address] [place] [address], [place] [address] Jun, [facility] [address] [id number] [address] [place] [address], [place] [address] Jun, [facility] [address] [id number] [address] [place] [address], [place] [address] Jun, [facility] [address] [id number] [address] [place] [address], [place] [address] Jun, [facility] [address] [id number] [address] [place] [address], [place] [address] Jun, [facility] [address] [id number] [address] [place] [address], [place] [address] May, [facility] [address] [id number] [address] [place] [address], [place] [address] May, [facility] [address] [id number] [address] [place] [address], [place] [address] May, [facility] [address] [id number] [address] [place] [address], [place] [address] May, [facility] [address] [id number] [address] [place] [address] May, [facility] [address] [id number] [address] [place] [address] May, [facility] [address] [id number] [address] [place] [address] May, [facility] [address] [id number] [address] [place] [address], [place] [address] May, [facility] [address] [id number] [address] [place] [address] May, [facility] [address] [id number] [address] [place] [address] May, [facility] [address] [id number] [address] [place] [address] May, [facility] [address] [id number] [address] [place] [address], [place] [address] May, [facility] [address] [id number] [address] [place] [address], [place] [address] May, [facility] [address] [id number] [address] [place] [address], [place] [address] May, [facility] [address] [id number] [address] [place] [address], [place] [address] May, [facility] [address] [id number] [address] [place] [address], [place] [address] May, [facility] [address] [id number] [address] [place] [address], [place] [address] May, [facility] [address] [id number] [address] [place] [address], [place] [address] Apr, [facility] [address] [id number] [address] [place] [address], [place] [address] Apr, [facility] [address] [id number] [address] [place] [address], [place] [address] Apr, [facility] [address] [id number] [address] [place] [address], [place] [address] Apr, [facility] [address] [id number] [address] [place] [address], [place] [address] Mar, [facility] [address] [id number] [address] [place] [address], [place] [address] Mar, [facility] [address] [id number] [address] [place] [address], [place] [address] Mar, [facility] [address] [id number] [address] [place] [address], [place] [address] Mar, [facility] [address] [id number] [address] [place] [address], [place] [address] Mar, [facility] [address] [id number] [address] [place] [address], [place] [address] 13 Mar, 2014 [facility] [address] [id number] [address] [place] [address], [place] [address] 16 Feb, 2014 [facility] [address] [id number] [address] [place] [address], [place] [address] 16 Feb, 2014 [facility] [address] [id number] [address] [place] [address], [place] [address] 18 Jan, 2013 [facility] [address] [id number] [address] [place] [address], [place] [address] 18 Jan, 2013 [facility] [address] [id number] [address] [place] [address], [place] [address] 18 Jan, 2013 [facility] [address] [id number] [address] [place] [address], [place] [address] 18 Jan, 2013 [facility] [address] [id number] [address] [place] [address], [place] [address] 12 Jan, 2013 [facility] [address] [id number] [address] [place] [address], [place] [address] 12 Jan, 2013 [facility] [address] [id number] [address] [place] [address], [place] [id number] Jan, [facility] [address] [id number] [address] [place] [address], [place] [address] Jan, [facility] [address] [id number] [address] [place] [address], [place] [address] Jan, [facility] [address] [id number] [address] [place] [address], [place] [address] Jan, [facility] [address] [id number] [address] [place] [address], [place] [address] Dec, [facility] [address] [id number] [address] [place] [address], [place] [address] Dec, [facility] [address] [id number] [address] [place] [address], [place] [address] Dec, [facility] [address] [id number] [facility] [place] [address] Dec, [facility] [address] [id number] [facility] [place] [address] Dec, [facility] [address] [id number] [facility] [place] [address] Dec, [facility] [address] [id number] [address] [place] [address], [place] [address] Dec, [facility] [address] [id number] [address] [place] [address], [place] [address] Dec, [facility] [address] [id number] [address] [place] [address], [place] [address] Dec, [facility] [address] [id number] [address] [place] [address], [place] [address] Nov, [facility] [address] [id number] [address] [place] [address], [place] [address] Nov, [facility] [address] [id number] [address] [place] [address], [place] [address] Nov, [facility] [address] [id number] [address] [place] [address], [place] [address] Nov, [facility] [address] [id number] [address] [place] [address], [place] [address] Nov, [facility] [address] [id number] [address] [place] [address], [place] [address] Nov, [facility] [address] [id number] [address] [place] [address], [place] [address] Nov, [facility] [address] [id number] [address] [place] [address], [place] [address] Nov, [facility] [address] [id number] [address] [place] [address], [place] [address] Nov, [facility] [address] [id number] [facility] [place] [address] Nov, 2013 [facility] [address] [id number] [address] [place] [address], [place] [address] Nov, 2013 [facility] [address] [id number] [address] [place] [address], [place] [address] Nov, 2013 [facility] [address] [id number] [address] [place] [address], [place] [address] Nov, 2013 [facility] [address] [id number] [address] [place] [address], [place] [address] Nov, [facility] [address] [id number] [address] [place] [address], [place] [address] Nov, [facility] [address] [id number] [address] [place] [address], [place] [address] Oct, [facility] [address] [id number] [address] [place] [address], [place] [address] Oct, [facility] [address] [id number] [address] [place] [address], [place] [address] Oct, [facility] [address] [id number] [address] [place] [address], [place] [address] Oct, [facility] [address] [id number] [address] [place] [address], [place] [address] Oct, [facility] [address] [id number] [address] [place] [address], [place] [address] Oct, [facility] [address] [id number] [address] [place] [address], [place] [address] Oct, [facility] [address] [id number] [address] [place] [address], [place] [address] Oct, [facility] [address] [id number] [address] [place] [address], [place] [address] Oct, [facility] [address] [id number] [address] [place] [address], [place] [address] Oct, [facility] [address] [id number] [facility] [place] [address] Oct, [facility] [address] [id number] [facility] [place] [address] Oct[facility] [address] [id number] [facility] [place] [address] Oct, [facility] [address] [id number] [address] [place] [address], [place] [address] Oct, [facility] [address] [id number] [address] [place] [address], [place] [address] September, [facility] [address] [id number] [address] [place] [address], [place] [address] September, [facility] [address] [id number] [address] [place] [address], [place] [address] September, [facility] [address] [id number] [address] [place] [address], [place] [address] September, [facility] [address] [id number] [address] [place] [address], [place] [address] September, [facility] [address] [id number] [address] [place] [address], [place] [address] September, [facility] [address] [id number] [address] [place] [address], [place] [address] September, [facility] [address] [id number] [address] [place] [address], [place] [address] September, [facility] [address] [id number] [address] [place] [address], [place] [address] September, [facility] [address] [id number] [address] [place] [address], [place] [address] September, [facility] [address] [id number] [address] [place] [address], [place] [address] September, [facility] [address] [id number] [address] [place] [address], [place] [address] September, [facility] [address] [id number] [address] [place] [address], [place] [address] September, [facility] [address] [id number] [address] [place] [address], [place] [address] Aug, [facility] [address] [id number] [address] [place] [address], [place] [address] Aug, [facility] [address] [id number] [address] [place] [address], [place] [address] Aug, [facility] [address] [id number] [address] [place] [address], [place] [address] Aug, [facility] [address] [id number] [address] [place] [address], [place] [address] Aug, [facility] [address] [id number] [address] [place] [address], [place] [address] Aug, [facility] [address] [id number] [address] [place] [address], [place] [address] Aug, [facility] [address] [id number] [address] [place] [address], [place] [address] Aug, [facility] [address] [id number] [address] [place] [address], [place] [address] Aug, [facility] [address] [id number] [address] [place] [address], [place] [address] Aug, [facility] [address] [id number] [address] [place] [address], [place] [address] Jul, [facility] [address] [id number] [address] [place] [address], [place] [address] Jul, [facility] [address] [id number] [address] [place] [address], [place] [address] Jul, [facility] [address] [id number] [address] [place] [address], [place] [address] Jul, [facility] [address] [id number] [facility] [place] [address] 13 Jul, 2013 [facility] [address] [id number] [address] [place] [address], [place] [address] Jul, [facility] [address] [id number] [address] [place] [address], [place] [address] Jul, [facility] [address] [id number] [address] [place] [address], [place] [address] Jul, [facility] [address] [id number] [address] [place] [address], [place] [address] Jun, [facility] [address] [id number] [address] [place] [address], [place] [address] Jun, [facility] [address] [id number] [address] [place] [address], [place] [address] 14 Jun, 2013 [facility] [address] [id number] [address] [place] [address], [place] [address] 14 Jun, 2013 [facility] [address] [id number] [address] [place] [address], [place] [address] Jun, [facility] [address] [id number] [address] [place] [address], [place] [address] Jun, [facility] [address] [id number] [address] [place] [address], [place] [address] Jun, [facility] [address] [id number] [address] [place] [address], [place] [address] Jun, [facility] [address] [id number] [address] [place] [address], [place] [address] 04 Jun, 2013 [facility] [address] [id number] [address] [place] [address], [place] [address] 04 Jun, 2013 [facility] [address] [id number] [address] [place] [address], [place] [address] 03 Jun, 2013 [facility] [address] [id number] [address] [place] [address], [place] [address] Jun, [facility] [address] [id number] [address] [place] [address], [place] [address] Jun, [facility] [address] [id number] [address] [place] [address], [place] [address] Jun, [facility] [address] [id number] [address] [place] [address], [place] [address] May, [facility] [address] [id number] [address] [place] [address], [place] [address] May, [facility] [address] [id number] [address] [place] [address], [place] [address] May, [facility] [address] [id number] [address] [place] [address], [place] [address] May, [facility] [address] [id number] [address] [place] [address], [place] [address] May, [facility] [address] [id number] [address] [place] [address], [place] [address] May, [facility] [address] [id number] [address] [place] [address], [place] [address] May, [facility] [address] [id number] [address] [place] [address], [place] [address] May, [facility] [address] [id number] [address] [place] [address], [place] [address] May, [facility] [address] [id number] [address] [place] [address], [place] [address] May, [facility] [address] [id number] [address] [place] [address], [place] [address] May, [facility] [address] [id number] [address] [place] [address], [place] [address] May, [facility] [address] [id number] [address] [place] [address], [place] [address] May, [facility] [address] [id number] [address] [place] [address], [place] [address] May, [facility] [address] [id number] [address] [place] [address], [place] [address] May, [facility] [address] [id number] [address] [place] [address], [place] [address] May, [facility] [address] [id number] [address] [place] [address], [place] [address] May, [facility] [address] [id number] [address] [place] [address], [place] [address] May, [facility] [address] [id number] [address] [place] [address], [place] [address] May, [facility] [address] [id number] [address] [place] [address], [place] [address] May, [facility] [address] [id number] [address] [place] [address], [place] [address] Apr, [facility] [address] [id number] [address] [place] [address], [place] [address] Apr, [facility] [address] [id number] [address] [place] [address], [place] [address] Apr, [facility] [address] [id number] [address] [place] [address], [place] [address] Apr, [facility] [address] [id number] [address] [place] [address], [place] [address] Apr, [facility] [address] [id number] [address] [place] [address], [place] [address] 19 Apr, 2013 [facility] [address] [id number] [address] [place] [address], [place] [address] 18 Apr, 2013 [facility] [address] [id number] [address] [place] [address], [place] [address] 18 Apr, 2013 [facility] [address] [id number] [address] [place] [address], [place] [address] 17 Apr, 2013 [facility] [address] [id number] [address] [place] [address], [place] [address] 17 Apr, 2013 [facility] [address] [id number] [address] [place] [address], [place] [address] Apr, [facility] [address] [id number] [address] [place] [address], [place] [address] Apr, [facility] [address] [id number] [address] [place] [address], [place] [address] Apr, [facility] [address] [id number] [address] [place] [address], [place] [address] Apr, [facility] [address] [id number] [address] [place] [address], [place] [address] Apr, [facility] [address] [id number] [address] [place] [address], [place] [address] Apr, [facility] [address] [id number] [address] [place] [address], [place] [address] Apr, [facility] [address] [id number] [address] [place] [address], [place] [address] Apr, [facility] [address] [id number] [address] [place] [address], [place] [address] Mar, [facility] [address] [id number] [address] [place] [address] 27 Mar, 2013 [facility] [address] [id number] [address] [place] [address] 14 Mar, 2013 [facility] [address] [id number] [address] [place] [address], [place] [address] 14 Mar, 2013 [facility] [address] [id number] [address] [place] [address], [place] [address] 11 Mar, 2013 [facility] [address] [id number] [address] [place] [address], [place] [address] Mar, [facility] [address] [id number] [address] [place] [address], [place] [address] Mar, [facility] [address] [id number] [address] [place] [address], [place] [address] Mar, [facility] [address] [id number] [address] [place] [address], [place] [address] Mar, [facility] [address] [id number] [address] [place] [address], [place] [address] Mar, [facility] [address] [id number] [address] [place] [address], [place] [address] Mar, [facility] [address] [id number] [address] [place] [address], [place] [address] Feb, [facility] [address] [id number] [address] [place] [address], [place] [address] Feb, [facility] [address] [id number] [address] [place] [address], [place] [address] Feb, [facility] [address] [id number] [address] [place] [address], [place] [address] Feb, [facility] [address] [id number] [address] [place] [address], [place] [address] Feb, [facility] [address] [id number] [address] [place] [address], [place] [address] Dec, [facility] [address] [id number] [address] [place] [address], [place] [address] Dec, [facility] [address] [id number] [address] [place] [address], [place] [address] Dec, [facility] [address] [id number] [address] [place] [address], [place] [address] Dec, [facility] [address] [id number] [address] [place] [address], [place] [address] Nov, [facility] [address] [id number] [address] [place] [address], [place] [address] Nov, [facility] [address] [id number] [address] [place] [address], [place] [address] Nov, [facility] [address] [id number] [address] [place] [address], [place] [address] Nov, [facility] [address] [id number] [address] [place] [address], [place] [address] Nov, [facility] [address] [id number] [address] [place] [address], [place] [address] Nov, [facility] [address] [id number] [address] [place] [address], [place] [address] Oct, [facility] [address] [id number] [address] [place] [address], [place] [address] Oct, [facility] [address] [id number] [address] [place] [address], [place] [address] Oct, [facility] [address] [id number] [address] [place] [address], [place] [address] Oct, [facility] [address] [id number] [address] [place] [address], [place] [address] September, [facility] [address] [id number] [address] [place] [address], [place] [address] September, [facility] [address] [id number] [address] [place] [address], [place] [address] September, [facility] [address] [id number] [address] [place] [address], [place] [address] September, [facility] [address] [id number] [address] [place] [address], [place] [address] September, [facility] [address] [id number] [address] [place] [address], [place] [address] September, [facility] [address] [id number] [address] [place] [address], [place] [address] September, [facility] [address] [id number] [address] [place] [address], [place] [address] September, [facility] [address] [id number] [address] [place] [address], [place] [address] Aug, [facility] [address] [id number] [address] [place] [address], [place] [address] Aug, [facility] [address] [id number] [address] [place] [address], [place] [address] Jul, [facility] [address] [id number] [address] [place] [address], [place] [address] Jun, [facility] [address] [id number] [address] [place] [address], [place] [address] May, [facility] [address] [id number] [address] [place] [address], [place] [address] May, [facility] [address] [id number] [address] [place] [address], [place] [address] May, [facility] [address] [id number] [address] [place] [address], [place] [address] May, [facility] [address] [id number] [address] [place] [address], [place] [address] Apr, [facility] [address] [id number] [address] [place] [address], [place] [address] Apr, [facility] [address] [id number] [address] [place] [address], [place] [address] Apr, [facility] [address] [id number] [address] [place] [address], [place] [address] Apr, [facility] [address] [id number] [address] [place] [address], [place] [address] Apr, [facility] [address] [id number] [address] [place] [address], [place] [address] Apr, [facility] [address] [id number] [address] [place] [address], [place] [address] 17 Apr, 2012 [facility] [address] [id number] [address] [place] [address], [place] [address] 14 Apr, 2012 [facility] [address] [id number] [address] [place] [address], [place] [address] 14 Apr, 2012 [facility] [address] [id number] [address] [place] [address], [place] [address] 30 Mar, 2012 [facility] [address] [id number] [address] [place] [address], [place] [address] 30 Mar, 2012 [facility] [address] [id number] [address] [place] [address], [place] [address] 27 Mar, 2012 [facility] [address] [id number] [address] [place] [address], [place] [address] 27 Mar, 2012 [facility] [address] [id number] [address] [place] [address], [place] [address] 16 Mar, 2012 [facility] [address] [id number] [address] [place] [address], [place] [address] 16 Mar, 2012 [facility] [address] [id number] [address] [place] [address], [place] [address] 16 Mar, 2012 [facility] [address] [id number] [address] [place] [address], [place] [address] 16 Mar, 2012 [facility] [address] [id number] [address] [place] [address], [place] [address] 16 Mar, 2012 [facility] [address] [id number] [address] [place] [address], [place] [address] 16 Mar, 2012 [facility] [address] [id number] [address] [place] [address], [place] [address] 14 Mar, 2012 [facility] [address] [id number] [address] [place] [address], [place] [address] 14 Mar, 2012 [facility] [address] [id number] [address] [place] [address], [place] [address] 13 Mar, 2012 [facility] [address] [id number] [address] [place] [address], [place] [address] Mar, [facility] [address] [id number] [address] [place] [address], [place] [address] Mar, [facility] [address] [id number] [address] [place] [address], [place] [address] Mar, [facility] [address] [id number] [address] [place] [address], [place] [address] Mar, [facility] [address] [id number] [address] [place] [address], [place] [address] Mar, [facility] [address] [id number] [address] [place] [address], [place] [address] Mar, [facility] [address] [id number] [address] [place] [address], [place] [address] Feb, [facility] [address] [id number] [address] [place] [address], [place] [address] Feb, [facility] [address] [id number] [address] [place] [address], [place] [address] Feb, [facility] [address] [id number] [address] [place] [address], [place] [address] Feb, [facility] [address] [id number] [address] [place] [address], [place] [address] Jan, [facility] [address] [id number] [address] [place] [address], [place] [address] Jan, [facility] [address] [id number] [address] [place] [address] Dec, [facility] [address] [id number] [address] [place] [address], [place] [address] Dec, [facility] [address] [id number] [address] [place] [address], [place] [address] Dec, [facility] [address] [id number] [address] [place] [address], [place] [address] Nov, [facility] [address] [id number] [address] [place] [address], [place] [address] Nov, [facility] [address] [id number] [address] [place] [address], [place] [address] Oct, [facility] [address] [id number] [address] [place] [address], [place] [address] Oct, [facility] [address] [id number] [address] [place] [address], [place] [address] September, [facility] [address] [id number] [address] [place] [address], [place] [address] September, [facility] [address] [id number] [address] [place] [address], [place] [address] September, [facility] [address] [id number] [address] [place] [address], [place] [address] September, [facility] [address] [id number] [address] [place] [address], [place] [address] Aug, [facility] [address] [id number] [address] [place] [address], [place] [address] Jul, [facility] [address] [id number] [address] [place] [address], [place] [address] Jul, [facility] [address] [id number] [address] [place] [address], [place] [address] Jun, [facility] [address] [id number] [address] [place] [address], [place] [address] Jun, [facility] [address] [id number] [address] [place] [address], [place] [address] Jun, [facility] [address] [id number] [address] [place] [address], [place] [address] May, [facility] [address] [id number] [address] [place] [address], [place] [address] May, [facility] [address] [id number] [address] [place] [address], [place] [address] May, [facility] [address] [id number] [address] [place] [address], [place] [address] May, [facility] [address] [id number] [address] [place] [address], [place] [address] Apr, [facility] [address] [id number] [address] [place] [address], [place] [address] Apr, [facility] [address] [id number] [address] [place] [address], [place] [address] Apr, [facility] [address] [id number] [address] [place] [address], [place] [address] Mar, [facility] [address] [id number] [address] [place] [address], [place] [address] Mar, [facility] [address] [id number] [address] [place] [address], [place] [address] Mar, [facility] [address] [id number] [address] [place] [address], [place] [address] Mar, [facility] [address] [id number] [address] [place] [address], [place] [address] Mar, [facility] [address] [id number] [address] [place] [address], [place] [address] Feb, [facility] [address] [id number] [address] [place] [address], [place] [address] Feb, [facility] [address] [id number] [address] [place] [address], [place] [address] Feb, [facility] [address] [id number] [address] [place] [address], [place] [address] Feb, [facility] [address] [id number] [address] [place] [address], [place] [address] Feb, [facility] [address] [id number] [address] [place] [address], [place] [address] Feb, [facility] [address] [id number] [address] [place] [address] 11 Feb, 2011 [facility] [address] [id number] [address] [place] [address], [place] [address] 28 Apr, 2010 [facility] [address] [id number] [address] [place] [address], [place] [address] 23 Apr, 2010 [facility] [address] [id number] [address] [place] [address], [place] [address] 15 Apr, 2010 [facility] [address] [id number] [address] [place] [address], [place] [address] 15 Apr, 2010 [facility] [address] [id number] [address] [place] [address], [place] [address] Apr, [facility] [address] [id number] [address] [place] [address], [place] [address] 02 Apr, 2010 [facility] [address] [id number] [address] [place] [address], [place] [address] 18 Mar, 2010 [facility] [address] [id number] [address] [place] [address], [place] [address] 18 Mar, 2010 [facility] [address] [id number] [address] [place] [address] 17 Mar, 2010 [facility] [address] [id number] [address] [place] [address], [place] [address] 16 Mar, 2010 [facility] [address] [id number] [address] [place] [address] 10 Mar, 2010 [facility] [address] [id number] [address] [place] [address] 10 Mar, 2010 [facility] [address] [id number] [address] [place] [address] 04 Mar, 2010 [facility] [address] [id number] [address] [place] [address] 04 Mar, 2010 [facility] [address] [id number] [address] [place] [address], [place] [address] 22 Feb, 2010 [facility] [address] [id number] [address] [place] [address] Feb, [facility] [place] [address] [id number] [address] [place] [address] Dec, [facility] [place] [address] [id number] [address] [place] [address] Jun, [facility] [place] [address] [id number] [address] [place] [address] Jun, [facility] [place] [address] [id number] [address] [place] [address] May, [facility] [place] [address] [id number] [address] [place] [address] Feb, [facility] [place] [address] [id number] [address] [place] [address] Feb, [facility] [place] [address] [id number] [address] [place] [address] Feb, [facility] [place] [address] [id number] [address] [place] [address] Feb, [facility] [place] [address] [id number] [address] [place] [address] Feb, [facility] [place] [address] [id number] [address] [place] [address] Feb, [facility] [place] [address] [id number] [address] [place] [address] Feb, [facility] [place] [address] [id number] [address] [place] [address] Jul, [facility] [place] [address] [id number] [address] [place] [address] Jun, IMMUNIZATIONS No Known Immunizations SOCIAL HISTORY [...] 08/2014 Hospitalization History Rt hand post op infection-[facility] 7 Hospitalization History cellulitus Right elbow-[facility] 12/09/16
[2019-10-27 22:09] LABS: CREATININE SERUM 0.89 MG/DL (0.60-1.30); GFR ESTIMATED > 60
--- OUTSIDE RECORDS SUMMARY | 2019-10-27 22:09 | XMS REPORT ---
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 [address] [place] [address] September, Cellulitis 682.9 [facility] [address] [id number] [address] [place] [address] September, [facility] [address] [id number] [address] [place] [phone] September, [facility] [address] [id number] [address] [place] [phone] Aug, [facility] [address] [id number] [address] [place] [phone] Aug, [facility] [address] [id number] [address] [place] [id number] Aug, [facility] [address] [id number] [address] [place] [phone] Aug, [facility] [address] [id number] [address] [place] [address] Jul, [facility] [address] [id number] [address] [place] [phone] Jul, [facility] [address] [id number] [address] [place] [phone] Jul, [facility] [address] [id number] [address] [place] [address] Jul, [facility] [address] [id number] [address] [place] [address] Jul, [facility] [address] [id number] [address] [place] [address], [place] [address] Jul, [facility] [address] [id number] [address] [place] [address], [place] [address] Jul, [facility] [address] [id number] [address] [place] [address], [place] [address] Jul, [facility] [address] [id number] [address] [place] [address], [place] [address] Jul, [facility] [address] [id number] [address] [place] [address], [place] [address] Jul, [facility] [address] [id number] [address] [place] [address], [place] [address] 05 Jul, 2014 [facility] [address] [id number] [address] [place] [address], [place] [address] Jul, [facility] [address] [id number] [address] [place] [address], [place] [address] Jul, [facility] [address] [id number] [address] [place] [address], [place] [address] Jul, [facility] [address] [id number] [address] [place] [address], [place] [address] Jul, [facility] [address] [id number] [address] [place] [address], [place] [address] Jun, [facility] [address] [id number] [address] [place] [address], [place] [address] Jun, 2014 [facility] [address] [id number] [address] [place] [address], [place] [address] Jun, 2014 [facility] [address] [id number] [address] [place] [address], [place] [address] Jun, 2014 [facility] [address] [id number] [address] [place] [address], [place] [address] Jun, 2014 [facility] [address] [id number] [address] [place] [address], [place] [address] Jun, 2014 [facility] [address] [id number] [address] [place] [address], [place] [address] Jun, 2014 [facility] [address] [id number] [address] [place] [address], [place] [address] Jun, 2014 [facility] [address] [id number] [address] [place] [address], [place] [address] Jun, 2014 [facility] [address] [id number] [address] [place] [address], [place] [address] Jun, 2014 [facility] [address] [id number] [address] [place] [address], [place] [address] Jun, 2014 [facility] [address] [id number] [address] [place] [address], [place] [address] 17 Jun, 2014 [facility] [address] [id number] [address] [place] [address], [place] [address] Jun, 2014 [facility] [address] [id number] [address] [place] [address], [place] [address] Jun, 2014 [facility] [address] [id number] [address] [place] [address], [place] [address] Jun, 2014 [facility] [address] [id number] [address] [place] [address], [place] [address] 10 Jun, 2014 [facility] [address] [id number] [address] [place] [address], [place] [address] Jun, 2014 [facility] [address] [id number] [address] [place] [address], [place] [address] Jun, 2014 [facility] [address] [id number] [address] [place] [address], [place] [address] Jun, 2014 [facility] [address] [id number] [address] [place] [address], [place] [address] 06 Jun, 2014 [facility] [address] [id number] [address] [place] [address], [place] [address] Jun, [facility] [address] [id number] [address] [place] [address], [place] [address] Jun, [facility] [address] [id number] [address] [place] [address], [place] [address] Jun, [facility] [address] [id number] [address] [place] [address], [place] [address] Jun, [facility] [address] [id number] [address] [place] [address], [place] [address] Jun, [facility] [address] [id number] [address] [place] [address], [place] [address] May, [facility] [address] [id number] [address] [place] [address], [place] [address] May, [facility] [address] [id number] [address] [place] [address], [place] [address] May, [facility] [address] [id number] [address] [place] [address], [place] [address] May, [facility] [address] [id number] [address] [place] [address], [place] [address] May, [facility] [address] [id number] [address] [place] [address], [place] [address] May, [facility] [address] [id number] [address] [place] [address], [place] [address] May, [facility] [address] [id number] [address] [place] [id number] May, [facility] [address] [id number] [address] [place] [address], [place] [address] May, [facility] [address] [id number] [address] [place] [address], [place] [address] May, [facility] [address] [id number] [address] [place] [address], [place] [address] May, [facility] [address] [id number] [address] [place] [address], [place] [address] May, [facility] [address] [id number] [address] [place] [address], [place] [address] May, [facility] [address] [id number] [address] [place] [address], [place] [address] May, [facility] [address] [id number] [address] [place] [address], [place] [address] May, [facility] [address] [id number] [address] [place] [address], [place] [address] May, [facility] [address] [id number] [address] [place] [address], [place] [address] May, [facility] [address] [id number] [address] [place] [address], [place] [address] Apr, [facility] [address] [id number] [address] [place] [address], [place] [address] Apr, [facility] [address] [id number] [address] [place] [address], [place] [address] Apr, [facility] [address] [id number] [address] [place] [address], [place] [address] Apr, [facility] [address] [id number] [address] [place] [address], [place] [address] Mar, [facility] [address] [id number] [address] [place] [address], [place] [address] Mar, [facility] [address] [id number] [address] [place] [address], [place] [address] Mar, [facility] [address] [id number] [address] [place] [address], [place] [address] Mar, [facility] [address] [id number] [address] [place] [address], [place] [address] Mar, [facility] [address] [id number] [address] [place] [address], [place] [address] Mar, [facility] [address] [id number] [address] [place] [address], [place] [address] Feb, [facility] [address] [id number] [address] [place] [address], [place] [address] Feb, [facility] [address] [id number] [address] [place] [address], [place] [address] 18 Jan, 2014 [facility] [address] [id number] [address] [place] [address], [place] [address] Jan, [facility] [address] [id number] [address] [place] [address], [place] [address] Jan, [facility] [address] [id number] [address] [place] [address], [place] [address] Jan, [facility] [address] [id number] [address] [place] [address], [place] [address] Jan, [facility] [address] [id number] [address] [place] [address], [place] [address] Jan, [facility] [address] [id number] [address] [place] [address], [place] [id number] Jan, [facility] [address] [id number] [address] [place] [address], [place] [address] Jan, [facility] [address] [id number] [address] [place] [address], [place] [address] Jan, [facility] [address] [id number] [address] [place] [address], [place] [address] Jan, [facility] [address] [id number] [address] [place] [address], [place] [address] Dec, [facility] [address] [id number] [address] [place] [address], [place] [address] Dec, [facility] [address] [id number] [address] [place] [address], [place] [address] Dec, [facility] [address] [id number] [address] [place] [address], [place] [address] Dec, [facility] [address] [id number] [address] [place] [address], [place] [address] Dec, [facility] [address] [id number] [address] [place] [address], [place] [address] Dec, [facility] [address] [id number] [address] [place] [address], [place] [address] Dec, [facility] [address] [id number] [address] [place] [address], [place] [address] Dec, [facility] [address] [id number] [address] [place] [address], [place] [address] Dec, [facility] [address] [id number] [address] [place] [address], [place] [address] Nov, [facility] [address] [id number] [address] [place] [address], [place] [address] Nov, [facility] [address] [id number] [address] [place] [address], [place] [address] Nov, [facility] [address] [id number] [address] [place] [address], [place] [address] Nov, [facility] [address] [id number] [address] [place] [address], [place] [address] Nov, [facility] [address] [id number] [address] [place] [address], [place] [address] Nov, [facility] [address] [id number] [address] [place] [address], [place] [address] Nov, [facility] [address] [id number] [address] [place] [address], [place] [address] Nov, [facility] [address] [id number] [address] [place] [address], [place] [address] Nov, [facility] [address] [id number] [address] [place] [address], [place] [address] Nov, [facility] [address] [id number] [facility] [place] [address] Nov, 2013 [facility] [address] [id number] [facility] [place] [address] Nov, 2013 [facility] [address] [id number] [facility] [place] [address] Nov, 2013 [facility] [address] [id number] [address] [place] [address], [place] [address] Nov, [facility] [address] [id number] [address] [place] [address], [place] [address] Nov, [facility] [address] [id number] [address] [place] [address], [place] [address] Oct, [facility] [address] [id number] [address] [place] [address], [place] [address] Oct, [facility] [address] [id number] [address] [place] [address], [place] [address] Oct, [facility] [address] [id number] [address] [place] [address], [place] [address] Oct, [facility] [address] [id number] [address] [place] [address], [place] [address] Oct, [facility] [address] [id number] [address] [place] [address], [place] [address] Oct, [facility] [address] [id number] [address] [place] [address], [place] [address] Oct, [facility] [address] [id number] [address] [place] [address], [place] [address] Oct, [facility] [address] [id number] [address] [place] [address], [place] [address] Oct, [facility] [address] [id number] [address] [place] [address], [place] [address] Oct, [facility] [address] [id number] [address] [place] [address], [place] [address] Oct, [facility] [address] [id number] [address] [place] [address], [place] [address] Oct, [facility] [address] [id number] [address] [place] [address], [place] [address] Oct, [facility] [address] [id number] [address] [place] [address], [place] [address] Oct, [facility] [address] [id number] [address] [place] [address], [place] [address] September, [facility] [address] [id number] [address] [place] [address], [place] [address] September, [facility] [address] [id number] [address] [place] [address], [place] [address] September, [facility] [address] [id number] [address] [place] [address], [place] [address] September, [facility] [address] [id number] [address] [place] [address], [place] [address] September, [facility] [address] [id number] [address] [place] [address], [place] [address] September, [facility] [address] [id number] [address] [place] [address], [place] [address] September, [facility] [address] [id number] [address] [place] [address], [place] [address] September, [facility] [address] [id number] [address] [place] [address], [place] [address] September, [facility] [address] [id number] [address] [place] [address], [place] [address] September, [facility] [address] [id number] [address] [place] [address], [place] [address] September, [facility] [address] [id number] [address] [place] [address], [place] [address] September, [facility] [address] [id number] [address] [place] [address], [place] [address] September, [facility] [address] [id number] [facility] [place] [address] Aug, [facility] [address] [id number] [address] [place] [address], [place] [address] Aug, [facility] [address] [id number] [address] [place] [address], [place] [address] Aug, [facility] [address] [id number] [address] [place] [address], [place] [address] Aug, [facility] [address] [id number] [address] [place] [address], [place] [address] Aug, [facility] [address] [id number] [address] [place] [address], [place] [address] Aug, [facility] [address] [id number] [address] [place] [address], [place] [address] Aug, [facility] [address] [id number] [address] [place] [address], [place] [address] Aug, [facility] [address] [id number] [address] [place] [address], [place] [address] Aug, [facility] [address] [id number] [address] [place] [address], [place] [address] Aug, [facility] [address] [id number] [address] [place] [address], [place] [address] Jul, [facility] [address] [id number] [address] [place] [address], [place] [address] Jul, [facility] [address] [id number] [address] [place] [address], [place] [address] Jul, [facility] [address] [id number] [address] [place] [address], [place] [address] Jul, [facility] [address] [id number] [address] [place] [address], [place] [address] 13 Jul, 2013 [facility] [address] [id number] [facility] [place] [address] 13 Jul, 2013 [facility] [address] [id number] [address] [place] [address], [place] [address] Jul, [facility] [address] [id number] [facility] [place] [address] Jul, [facility] [address] [id number] [address] [place] [address], [place] [address] Jun, [facility] [address] [id number] [address] [place] [address], [place] [address] Jun, [facility] [address] [id number] [address] [place] [address], [place] [address] 14 Jun, 2013 [facility] [address] [id number] [address] [place] [address], [place] [address] Jun, [facility] [address] [id number] [address] [place] [address], [place] [address] Jun, [facility] [address] [id number] [address] [place] [address], [place] [address] Jun, [facility] [address] [id number] [address] [place] [address], [place] [address] Jun, [facility] [address] [id number] [address] [place] [address], [place] [address] Jun, [facility] [address] [id number] [address] [place] [address], [place] [address] Jun, 2013 [facility] [address] [id number] [address] [place] [address], [place] [address] Jun, [facility] [address] [id number] [address] [place] [address], [place] [address] Jun, [facility] [address] [id number] [address] [place] [address], [place] [address] Jun, 2013 [facility] [address] [id number] [address] [place] [address], [place] [address] 02 Jun, 2013 [facility] [address] [id number] [address] [place] [address], [place] [address] Jun, [facility] [address] [id number] [address] [place] [address], [place] [address] May, [facility] [address] [id number] [address] [place] [address], [place] [address] May, [facility] [address] [id number] [address] [place] [address], [place] [address] May, [facility] [address] [id number] [address] [place] [address], [place] [address] May, [facility] [address] [id number] [address] [place] [address], [place] [address] May, [facility] [address] [id number] [address] [place] [address], [place] [address] May, [facility] [address] [id number] [address] [place] [address], [place] [address] May, [facility] [address] [id number] [address] [place] [address], [place] [address] May, [facility] [address] [id number] [address] [place] [address], [place] [address] May, [facility] [address] [id number] [address] [place] [address], [place] [address] May, [facility] [address] [id number] [address] [place] [address], [place] [address] May, [facility] [address] [id number] [address] [place] [address], [place] [address] May, [facility] [address] [id number] [address] [place] [address], [place] [address] May, [facility] [address] [id number] [address] [place] [address], [place] [address] 15 May, 2013 [facility] [address] [id number] [address] [place] [address], [place] [address] May, [facility] [address] [id number] [address] [place] [address], [place] [address] May, [facility] [address] [id number] [address] [place] [address], [place] [address] May, [facility] [address] [id number] [address] [place] [address], [place] [address] May, [facility] [address] [id number] [address] [place] [address], [place] [address] May, [facility] [address] [id number] [address] [place] [address], [place] [address] May, [facility] [address] [id number] [address] [place] [address], [place] [address] Apr, [facility] [address] [id number] [address] [place] [address], [place] [address] 31 Apr, 2013 [facility] [address] [id number] [address] [place] [address], [place] [address] Apr, [facility] [address] [id number] [address] [place] [address], [place] [address] Apr, [facility] [address] [id number] [address] [place] [address], [place] [address] 19 Apr, 2013 [facility] [address] [id number] [address] [place] [address], [place] [address] 19 Apr, 2013 [facility] [address] [id number] [address] [place] [address], [place] [address] 18 Apr, 2013 [facility] [address] [id number] [address] [place] [address], [place] [address] 18 Apr, 2013 [facility] [address] [id number] [address] [place] [address], [place] [address] 17 Apr, 2013 [facility] [address] [id number] [address] [place] [address] 17 Apr, 2013 [facility] [address] [id number] [address] [place] [address], [place] [address] Apr, [facility] [address] [id number] [address] [place] [address], [place] [address] Apr, [facility] [address] [id number] [address] [place] [address], [place] [address] Apr, [facility] [address] [id number] [address] [place] [address], [place] [address] Apr, [facility] [address] [id number] [address] [place] [address], [place] [address] Apr, [facility] [address] [id number] [address] [place] [address], [place] [address] Apr, [facility] [address] [id number] [address] [place] [address], [place] [address] Apr, [facility] [address] [id number] [address] [place] [address], [place] [address] Apr, [facility] [address] [id number] [address] [place] [address], [place] [address] Mar, [facility] [address] [id number] [address] [place] [address], [place] [address] 27 Mar, 2013 [facility] [address] [id number] [address] [place] [address] 14 Mar, 2013 [facility] [address] [id number] [address] [place] [address] 14 Mar, 2013 [facility] [address] [id number] [address] [place] [address], [place] [address] 11 Mar, 2013 [facility] [address] [id number] [address] [place] [address], [place] [address] Mar, [facility] [address] [id number] [address] [place] [address], [place] [address] Mar, [facility] [address] [id number] [address] [place] [address], [place] [address] Mar, [facility] [address] [id number] [address] [place] [address], [place] [address] Mar, [facility] [address] [id number] [address] [place] [address], [place] [address] Mar, [facility] [address] [id number] [address] [place] [address], [place] [address] Mar, [facility] [address] [id number] [address] [place] [address], [place] [address] Feb, [facility] [address] [id number] [address] [place] [address], [place] [address] Feb, [facility] [address] [id number] [address] [place] [address], [place] [address] Feb, [facility] [address] [id number] [address] [place] [address], [place] [address] Feb, [facility] [address] [id number] [address] [place] [address], [place] [address] Feb, [facility] [address] [id number] [address] [place] [address], [place] [address] Dec, [facility] [address] [id number] [address] [place] [address], [place] [address] Dec, [facility] [address] [id number] [address] [place] [address], [place] [address] Dec, [facility] [address] [id number] [address] [place] [address], [place] [address] Dec, [facility] [address] [id number] [address] [place] [address], [place] [address] Nov, [facility] [address] [id number] [address] [place] [address], [place] [address] Nov, [facility] [address] [id number] [address] [place] [address], [place] [address] Nov, [facility] [address] [id number] [address] [place] [address], [place] [address] Nov, [facility] [address] [id number] [address] [place] [address], [place] [address] Nov, [facility] [address] [id number] [address] [place] [address], [place] [address] Nov, [facility] [address] [id number] [address] [place] [address], [place] [address] Oct, [facility] [address] [id number] [address] [place] [address], [place] [address] Oct, [facility] [address] [id number] [address] [place] [address], [place] [address] Oct, [facility] [address] [id number] [address] [place] [address], [place] [address] Oct, [facility] [address] [id number] [address] [place] [address], [place] [address] September, [facility] [address] [id number] [address] [place] [address], [place] [address] September, [facility] [address] [id number] [address] [place] [address], [place] [address] September, [facility] [address] [id number] [address] [place] [address], [place] [address] September, [facility] [address] [id number] [address] [place] [address], [place] [address] September, [facility] [address] [id number] [address] [place] [address], [place] [address] September, [facility] [address] [id number] [address] [place] [address], [place] [address] September, [facility] [address] [id number] [address] [place] [address], [place] [address] September, [facility] [address] [id number] [address] [place] [address], [place] [address] Aug, [facility] [address] [id number] [address] [place] [address], [place] [address] 08 Aug, 2012 [facility] [address] [id number] [address] [place] [address], [place] [address] Jul, [facility] [address] [id number] [address] [place] [address], [place] [address] Jun, [facility] [address] [id number] [address] [place] [address], [place] [address] 24 May, 2012 [facility] [address] [id number] [address] [place] [address], [place] [address] May, [facility] [address] [id number] [address] [place] [address], [place] [address] 14 May, 2012 [facility] [address] [id number] [address] [place] [address], [place] [address] May, [facility] [address] [id number] [address] [place] [address], [place] [address] 28 Apr, 2012 [facility] [address] [id number] [address] [place] [address], [place] [address] 28 Apr, 2012 [facility] [address] [id number] [address] [place] [address], [place] [address] 28 Apr, 2012 [facility] [address] [id number] [address] [place] [address], [place] [address] 28 Apr, 2012 [facility] [address] [id number] [address] [place] [address], [place] [address] 22 Apr, 2012 [facility] [address] [id number] [address] [place] [address], [place] [address] 22 Apr, 2012 [facility] [address] [id number] [address] [place] [address], [place] [id number] 17 Apr, 2012 [facility] [address] [id number] [address] [place] [address], [place] [id number] 14 Apr, 2012 [facility] [address] [id number] [address] [place] [address], [place] [address] 14 Apr, 2012 [facility] [address] [id number] [address] [place] [address], [place] [address] 30 Mar, 2012 [facility] [address] [id number] [address] [place] [address], [place] [id number] 30 Mar, 2012 [facility] [address] [id number] [address] [place] [address], [place] [id number] 27 Mar, 2012 [facility] [address] [id number] [address] [place] [address], [place] [address] 27 Mar, 2012 [facility] [address] [id number] [address] [place] [address], [place] [id number] 16 Mar, 2012 [facility] [address] [id number] [address] [place] [address], [place] [address] 16 Mar, 2012 [facility] [address] [id number] [address] [place] [address], [place] [address] 16 Mar, 2012 [facility] [address] [id number] [address] [place] [address], [place] [address] 16 Mar, 2012 [facility] [address] [id number] [address] [place] [address], [place] [address] 16 Mar, 2012 [facility] [address] [id number] [address] [place] [address], [place] [id number] 16 Mar, 2012 [facility] [address] [id number] [address] [place] [address], [place] [address] 14 Mar, 2012 [facility] [address] [id number] [address] [place] [address], [place] [id number] 14 Mar, 2012 [facility] [address] [id number] [address] [place] [address], [place] [address] 13 Mar, 2012 [facility] [address] [id number] [address] [place] [address], [place] [address] 13 Mar, 2012 [facility] [address] [id number] [address] [place] [address], [place] [address] Mar, [facility] [address] [id number] [address] [place] [address], [place] [address] Mar, [facility] [address] [id number] [address] [place] [address], [place] [address] Mar, [facility] [address] [id number] [address] [place] [address], [place] [address] Mar, [facility] [address] [id number] [address] [place] [address], [place] [address] Mar, [facility] [address] [id number] [address] [place] [address], [place] [address] Feb, [facility] [address] [id number] [address] [place] [address], [place] [address] Feb, [facility] [address] [id number] [address] [place] [address], [place] [address] Feb, [facility] [address] [id number] [address] [place] [address], [place] [address] Feb, [facility] [address] [id number] [address] [place] [address], [place] [address] Jan, [facility] [address] [id number] [address] [place] [address], [place] [address] Jan, [facility] [address] [id number] [address] [place] [address], [place] [address] Dec, [facility] [address] [id number] [address] [place] [address], [place] [address] Dec, [facility] [address] [id number] [address] [place] [address], [place] [address] Dec, [facility] [address] [id number] [address] [place] [address], [place] [address] Nov, [facility] [address] [id number] [address] [place] [address], [place] [address] Nov, [facility] [address] [id number] [address] [place] [address], [place] [address] Oct, [facility] [address] [id number] [address] [place] [address], [place] [address] Oct, [facility] [address] [id number] [address] [place] [address], [place] [address] September, [facility] [facility] [address] [id number] [address] [place] [address], [place] [address] September, [facility] [address] [id number] [address] [place] [address], [place] [address] September, [facility] [address] [id number] [address] [place] [address], [place] [address] September, [facility] [address] [id number] [address] [place] [address], [place] [address] Aug, [facility] [address] [id number] [address] [place] [address], [place] [address] Jul, [facility] [address] [id number] [address] [place] [address], [place] [address] Jul, [facility] [address] [id number] [address] [place] [address], [place] [address] Jun, [facility] [address] [id number] [address] [place] [address], [place] [address] Jun, [facility] [address] [id number] [address] [place] [address], [place] [address] Jun, [facility] [address] [id number] [address] [place] [address], [place] [address] May, [facility] [address] [id number] [address] [place] [address], [place] [address] May, [facility] [address] [id number] [address] [place] [address], [place] [address] May, [facility] [address] [id number] [address] [place] [address], [place] [address] May, [facility] [address] [id number] [address] [place] [address], [place] [address] Apr, [facility] [address] [id number] [address] [place] [address], [place] [address] Apr, [facility] [address] [id number] [address] [place] [address], [place] [address] Apr, [facility] [address] [id number] [address] [place] [address], [place] [address] Mar, [facility] [address] [id number] [address] [place] [address], [place] [address] Mar, [facility] [address] [id number] [address] [place] [address], [place] [address] Mar, [facility] [address] [id number] [address] [place] [address], [place] [address] Mar, [facility] [address] [id number] [address] [place] [address], [place] [id number] Mar, [facility] [address] [id number] [address] [place] [address], [place] [address] Feb, [facility] [address] [id number] [address] [place] [address], [place] [address] Feb, [facility] [address] [id number] [address] [place] [address], [place] [address] Feb, [facility] [address] [id number] [address] [place] [id number] Feb, [facility] [address] [id number] [address] [place] [address], [place] [address] Feb, [facility] [address] [id number] [address] [place] [address], [place] [address] Feb, [facility] [address] [id number] [address] [place] [address], [place] [address] Feb, [facility] [address] [id number] [address] [place] [address] [place] [address] 28 Apr, 2010 [facility] [address] [id number] [address] [place] [address], [place] [address] 23 Apr, 2010 [facility] [address] [id number] [address] [place] [address], [place] [address] 15 Apr, 2010 [facility] [address] [id number] [address] [place] [address], [place] [id number] 15 Apr, 2010 [facility] [address] [id number] [address] [place] [address], [place] [address] 02 Apr, 2010 [facility] [address] [id number] [address] [place] [address], [place] [address] 02 Apr, 2010 [facility] [address] [id number] [address] [place] [address], [place] [id number] 18 Mar, 2010 [facility] [address] [id number] [address] [place] [address], [place] [address] 18 Mar, 2010 [facility] [address] [id number] [address] [place] [address], [place] [address] 17 Mar, 2010 [facility] [address] [id number] [address] [place] [address], [place] [address] 16 Mar, 2010 [facility] [address] [id number] [address] [place] [address], [place] [address] 10 Mar, 2010 [facility] [address] [id number] [address] [place] [address], [place] [address] 10 Mar, 2010 [facility] [address] [id number] [address] [place] [address], [place] [address] Mar, [facility] [address] [id number] [address] [place] [address], [place] [address] Mar, [facility] [address] [id number] [address] [place] [address], [place] [id number] 22 Feb, 2010 [facility] [address] [id number] [address] [place] [id number] Feb, [facility] [address] [id number] [address] [place] [id number] Dec, [facility] [address] [id number] [address] [place] [id number] Jun, [facility] [address] [id number] [address] [place] [id number] Jun, [facility] [address] [id number] [address] [place] [id number] May, [facility] [address] [id number] [address] [place] [id number] Feb, [facility] [address] [id number] [address] [place] [id number] Feb, [facility] [address] [id number] [address] [place] [id number] Feb, [facility] [address] [id number] [address] [place] [id number] Feb, [facility] [address] [id number] [address] [place] [id number] Feb, [facility] [address] [id number] [address] [place] [phone] Feb, [facility] [address] [id number] [address] [place] [id number] Feb, [facility] [address] [id number] [address] [place] [id number] Jul, [facility] [address] [id number] [address] [place] [id number] Jun, IMMUNIZATIONS No Known Immunizations SOCIAL HISTORY Never Assessed REASON FOR VISIT PLAN OF CARE VITAL SIGNS Height 66 in 2014-05-17 Weight 286.01 lbs 2014-05-17 Temperature 97.9 degrees Fahrenheit 2014-05-17 Heart Rate 90 bpm 2014-05-17 Respiratory Rate 22 2014-05-17 Blood pressure systolic 160 mmHg 2014-05-17 Blood pressure diastolic 98 mmHg 2014-05-17 MEDICATIONS Unknown Medications RESULTS No Results PROCEDURES Procedure Date Ordered Result Body Site MRI LUMBAR SPINE W/O DYE May 17, 2014 INSTRUCTIONS MEDICATIONS ADMINISTERED No Known Medications MEDICAL [...] Hospitalization History Rt hand post op infection-[facility] 7 Hospitalization History cellulitus Right elbow-[facility] 12/09/16
--- OUTSIDE RECORDS SUMMARY | 2019-10-27 22:09 | XMS REPORT ---
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 [place] [address] Dec, Chronic pain disorder 338.4 [place] [address] [place] [id number] [address] [place] [phone] Dec, Toenail avulsion 893.0 [facility] [address] [facility] [id number] [address] [place] [phone] Dec, Generalized anxiety disorder 300.02 and Posttraumatic stress disorder 309.81 [facility] [address] [facility] [id number] [address] [place] [id number] 07 Dec, 2014 Foot pain, right 729.5 ; Hyp ertension 401.9 and Chronic pain 338.29 [facility] [address] [place] [id number] [address] [place] [phone] Nov, [facility] [address] [place] [id number] [address] [place] [phone] Nov, [facility] [address] [place] [id number] [address] [place] [id number] Oct, [facility] [address] [place] [id number] [address] [place] [phone] Oct, [facility] [address] [place] [id number] [address] [place] [id number] Oct, [facility] [address] [place] [id number] [address] [place] [id number] Oct, [facility] [address] [place] [id number] [address] [place] [id number] Oct, [facility] [address] [place] [id number] [address] [place] [id number] Oct, Major depressive disorder, r ecurrent episode, unspecified 296.30 and Anxiety state 300.00 [facility] [address] [facility] [id number] [address] [place] [id number] Oct, Spider bite 989.5 [facility] [address] [place] [id number] [address] [place] [id number] Oct, [facility] [address] [place] [id number] [address] [place] [id number] September, Contact dermatitis 692.9 and Sciatica 724.3 [facility] [address] [id number] [address] [place] [id number] September, [facility] [address] [id number] [address] [place] [phone] September, Generalized anxiety disorder 300.02 ; Posttraumatic stress disorder 309.81 and Depression, major, recurrent, in partial remission 296.35 [facility] [address] [id number] [address] [place] [id number] September, Cellulitis 682.9 [facility] [address] [id number] [address] [place] [phone] September, [facility] [address] [id number] [address] [place] [phone] September, [facility] [address] [id number] [address] [place] [id number] Aug, [facility] [address] [id number] [address] [place] [phone] Aug, [facility] [address] [id number] [address] [place] [phone] Aug, [facility] [address] [id number] [address] [place] [id number] Aug, [facility] [address] [id number] [address] [place] [phone] Jul, [facility] [address] [id number] [address] [place] [id number] Jul, [facility] [address] [id number] [address] [place] [id number] Jul, [facility] [address] [id number] [address] [place] [phone] Jul, [facility] [address] [id number] [address] [place] [id number] Jul, [facility] [address] [id number] [address] [place] [phone] Jul, [facility] [address] [id number] [address] [place] [address], [place] [address] Jul, [facility] [address] [id number] [address] [place] [address], [place] [id number] Jul, [facility] [address] [id number] [address] [place] [address], [place] [address] Jul, [facility] [address] [id number] [address] [place] [address], [place] [address] Jul, [facility] [address] [id number] [address] [place] [address], [place] [address] Jul, [facility] [address] [id number] [address] [place] [address], [place] [address] Jul, [facility] [address] [id number] [address] [place] [address], [place] [address] Jul, [facility] [address] [id number] [address] [place] [address], [place] [address] Jul, [facility] [address] [id number] [address] [place] [address], [place] [address] Jul, [facility] [address] [id number] [address] [place] [address], [place] [address] Jun, [facility] [address] [id number] [address] [place] [address], [place] [address] Jun, 2014 [facility] [address] [id number] [address] [place] [address], [place] [address] Jun, 2014 [facility] [address] [id number] [address] [place] [address], [place] [address] Jun, 2014 [facility] [address] [id number] [address] [place] [address], [place] [address] Jun, 2014 [facility] [address] [id number] [address] [place] [id number] Jun, 2014 [facility] [address] [id number] [address] [place] [address], [place] [address] Jun, 2014 [facility] [address] [id number] [address] [place] [address], [place] [address] Jun, 2014 [facility] [address] [id number] [address] [place] [address], [place] [address] Jun, 2014 [facility] [address] [id number] [address] [place] [address], [place] [address] Jun, 2014 [facility] [address] [id number] [address] [place] [address], [place] [address] Jun, 2014 [facility] [address] [id number] [address] [place] [address], [place] [address] Jun, 2014 [facility] [address] [id number] [address] [place] [address], [place] [address] Jun, 2014 [facility] [address] [id number] [address] [place] [address], [place] [address] Jun, 2014 [facility] [address] [id number] [address] [place] [address], [place] [address] Jun, 2014 [facility] [address] [id number] [address] [place] [address], [place] [address] Jun, 2014 [facility] [address] [id number] [address] [place] [address], [place] [address] Jun, 2014 [facility] [address] [id number] [address] [place] [address], [place] [address] Jun, 2014 [facility] [address] [id number] [address] [place] [address], [place] [address] Jun, 2014 [facility] [address] [id number] [address] [place] [address], [place] [address] Jun, 2014 [facility] [address] [id number] [address] [place] [address], [place] [address] Jun, 2014 [facility] [address] [id number] [address] [place] [address], [place] [address] Jun, [facility] [address] [id number] [address] [place] [address], [place] [address] Jun, [facility] [address] [id number] [address] [place] [address], [place] [address] Jun, [facility] [address] [id number] [address] [place] [address], [place] [address] Jun, [facility] [address] [id number] [address] [place] [address], [place] [address] May, [facility] [address] [id number] [address] [place] [address], [place] [address] May, [facility] [address] [id number] [address] [place] [address], [place] [address] May, [facility] [address] [id number] [address] [place] [address], [place] [address] May, [facility] [address] [id number] [address] [place] [address], [place] [address] May, [facility] [address] [id number] [address] [place] [address], [place] [address] May, [facility] [address] [id number] [address] [place] [address], [place] [address] May, [facility] [address] [id number] [address] [place] [address], [place] [address] May, [facility] [address] [id number] [address] [place] [address], [place] [address] May, [facility] [address] [id number] [address] [place] [address], [place] [address] May, [facility] [address] [id number] [address] [place] [address], [place] [address] 14 May, 2014 [facility] [address] [id number] [address] [place] [address], [place] [address] May, [facility] [address] [id number] [address] [place] [address], [place] [address] May, [facility] [address] [id number] [address] [place] [address], [place] [address] May, [facility] [address] [id number] [address] [place] [address], [place] [address] May, [facility] [address] [id number] [address] [place] [address], [place] [address] May, [facility] [address] [id number] [address] [place] [address], [place] [address] May, [facility] [address] [id number] [address] [place] [address], [place] [address] Apr, [facility] [address] [id number] [address] [place] [address], [place] [address] Apr, [facility] [address] [id number] [address] [place] [address], [place] [address] Apr, [facility] [address] [id number] [address] [place] [address], [place] [address] Apr, [facility] [address] [id number] [address] [place] [address], [place] [address] Mar, [facility] [address] [id number] [address] [place] [address], [place] [address] Mar, [facility] [address] [id number] [address] [place] [address], [place] [address] Mar, [facility] [address] [id number] [address] [place] [address], [place] [address] Mar, [facility] [address] [id number] [address] [place] [address], [place] [address] Mar, [facility] [address] [id number] [address] [place] [address], [place] [address] Mar, [facility] [address] [id number] [address] [place] [address], [place] [address] 16 Feb, 2014 [facility] [address] [id number] [address] [place] [address], [place] [address] 16 Feb, 2014 [facility] [address] [id number] [address] [place] [address], [place] [address] 18 Jan, 2013 [facility] [address] [id number] [address] [place] [address], [place] [address] 18 Jan, 2013 [facility] [address] [id number] [address] [place] [address], [place] [address] 18 Jan, 2013 [facility] [address] [id number] [address] [place] [address], [place] [address] 18 Jan, 2014 [facility] [address] [id number] [address] [place] [address], [place] [address] Jan, [facility] [address] [id number] [address] [place] [address], [place] [address] Jan, 2013 [facility] [address] [id number] [address] [place] [address], [place] [id number] Jan, [facility] [address] [id number] [address] [place] [address], [place] [address] Jan, [facility] [address] [id number] [address] [place] [address], [place] [address] Jan, [facility] [address] [id number] [address] [place] [address], [place] [address] Jan, [facility] [address] [id number] [address] [place] [address], [place] [address] Dec, [facility] [address] [id number] [address] [place] [address], [place] [address] Dec, [facility] [address] [id number] [address] [place] [address], [place] [address] Dec, [facility] [address] [id number] [address] [place] [address], [place] [address] Dec, [facility] [address] [id number] [address] [place] [address], [place] [address] Dec, [facility] [address] [id number] [address] [place] [address], [place] [address] Dec, [facility] [address] [id number] [address] [place] [address], [place] [address] Dec, [facility] [address] [id number] [address] [place] [address], [place] [address] Dec, [facility] [address] [id number] [address] [place] [address], [place] [address] Dec, [facility] [address] [id number] [address] [place] [address], [place] [address] Nov, [facility] [address] [id number] [address] [place] [address], [place] [address] Nov, [facility] [address] [id number] [address] [place] [address], [place] [address] Nov, [facility] [address] [id number] [address] [place] [address], [place] [address] Nov, [facility] [address] [id number] [address] [place] [address], [place] [address] Nov, [facility] [address] [id number] [address] [place] [address], [place] [address] Nov, [facility] [address] [id number] [address] [place] [address], [place] [address] Nov, [facility] [address] [id number] [address] [place] [address], [place] [address] Nov, [facility] [address] [id number] [address] [place] [address], [place] [address] Nov, [facility] [address] [id number] [address] [place] [address], [place] [address] Nov, [facility] [address] [id number] [address] [place] [address], [place] [address] Nov, [facility] [address] [id number] [address] [place] [address], [place] [address] Nov, [facility] [address] [id number] [address] [place] [address], [place] [address] Nov, [facility] [address] [id number] [address] [place] [address], [place] [address] Nov, [facility] [address] [id number] [address] [place] [address], [place] [address] Nov, [facility] [address] [id number] [address] [place] [address], [place] [address] Oct, [facility] [address] [id number] [address] [place] [address], [place] [address] Oct, [facility] [address] [id number] [address] [place] [address], [place] [address] Oct, [facility] [address] [id number] [address] [place] [address], [place] [address] Oct, [facility] [address] [id number] [address] [place] [address], [place] [address] Oct, [facility] [address] [id number] [address] [place] [address], [place] [address] Oct, [facility] [address] [id number] [address] [place] [address], [place] [address] Oct, [facility] [address] [id number] [address] [place] [address], [place] [address] Oct, [facility] [address] [id number] [address] [place] [address], [place] [address] Oct, [facility] [address] [id number] [address] [place] [address], [place] [address] Oct, [facility] [address] [id number] [address] [place] [address], [place] [address] Oct, [facility] [address] [id number] [facility] [place] [address] Oct, [facility] [address] [id number] [facility] [place] [address] Oct, [facility] [address] [id number] [facility] [place] [address] Oct, [facility] [address] [id number] [address] [place] [address], [place] [address] September, [facility] [address] [id number] [facility] [place] [address] September, [facility] [address] [id number] [address] [place] [address], [place] [address] September, [facility] [address] [id number] [address] [place] [address], [place] [address] September, [facility] [address] [id number] [address] [place] [address], [place] [address] September, [facility] [address] [id number] [address] [place] [address], [place] [address] September, [facility] [address] [id number] [address] [place] [address], [place] [address] September, [facility] [address] [id number] [address] [place] [address], [place] [address] September, [facility] [address] [id number] [address] [place] [address], [place] [address] September, [facility] [address] [id number] [address] [place] [address], [place] [address] September, [facility] [address] [id number] [address] [place] [address], [place] [address] September, [facility] [address] [id number] [address] [place] [address], [place] [address] September, [facility] [address] [id number] [address] [place] [address], [place] [address] September, [facility] [address] [id number] [facility] [place] [address] Aug, [facility] [address] [id number] [facility] [place] [address] Aug, [facility] [address] [id number] [facility] [place] [address] Aug, [facility] [address] [id number] [address] [place] [address], [place] [address] Aug, [facility] [address] [id number] [address] [place] [address], [place] [address] Aug, [facility] [address] [id number] [address] [place] [address], [place] [address] Aug, [facility] [address] [id number] [address] [place] [address], [place] [address] Aug, [facility] [address] [id number] [address] [place] [address], [place] [address] Aug, [facility] [address] [id number] [address] [place] [address], [place] [address] Aug, [facility] [address] [id number] [address] [place] [address], [place] [address] Aug, [facility] [address] [id number] [address] [place] [address], [place] [address] Jul, [facility] [address] [id number] [address] [place] [address], [place] [address] Jul, [facility] [address] [id number] [address] [place] [address], [place] [address] Jul, [facility] [address] [id number] [address] [place] [address], [place] [address] Jul, [facility] [address] [id number] [address] [place] [address], [place] [address] Jul, [facility] [address] [id number] [facility] [place] [address] 13 Jul, 2013 [facility] [address] [id number] [address] [place] [address], [place] [address] Jul, [facility] [address] [id number] [address] [place] [address], [place] [address] Jul, [facility] [address] [id number] [address] [place] [address], [place] [address] Jun, 2013 [facility] [address] [id number] [address] [place] [address], [place] [address] Jun, 2013 [facility] [address] [id number] [address] [place] [address], [place] [address] 14 Jun, 2013 [facility] [address] [id number] [address] [place] [address], [place] [address] 14 Jun, 2013 [facility] [address] [id number] [address] [place] [address], [place] [address] Jun, 2013 [facility] [address] [id number] [address] [place] [address], [place] [address] Jun, [facility] [address] [id number] [address] [place] [address], [place] [address] 06 Jun, 2013 [facility] [address] [id number] [address] [place] [address], [place] [address] 06 Jun, 2013 [facility] [address] [id number] [address] [place] [address], [place] [address] 04 Jun, 2013 [facility] [address] [id number] [address] [place] [address], [place] [address] 04 Jun, 2013 [facility] [address] [id number] [address] [place] [address], [place] [address] Jun, 2013 [facility] [address] [id number] [address] [place] [address], [place] [address] 03 Jun, 2013 [facility] [address] [id number] [address] [place] [address], [place] [address] Jun, [facility] [address] [id number] [address] [place] [address], [place] [address] Jun, [facility] [address] [id number] [address] [place] [address], [place] [address] May, [facility] [address] [id number] [address] [place] [address], [place] [address] May, [facility] [address] [id number] [address] [place] [address], [place] [address] May, [facility] [address] [id number] [address] [place] [address], [place] [address] May, [facility] [address] [id number] [address] [place] [address], [place] [address] May, [facility] [address] [id number] [address] [place] [address], [place] [address] May, [facility] [address] [id number] [address] [place] [address], [place] [address] May, [facility] [address] [id number] [address] [place] [address], [place] [address] May, [facility] [address] [id number] [address] [place] [address], [place] [address] May, [facility] [address] [id number] [address] [place] [address], [place] [address] May, [facility] [address] [id number] [address] [place] [address], [place] [address] May, [facility] [address] [id number] [address] [place] [address], [place] [address] May, [facility] [address] [id number] [address] [place] [address], [place] [address] May, [facility] [address] [id number] [address] [place] [address], [place] [address] May, [facility] [address] [id number] [address] [place] [address], [place] [address] May, [facility] [address] [id number] [address] [place] [address], [place] [address] May, [facility] [address] [id number] [address] [place] [address], [place] [address] May, [facility] [address] [id number] [address] [place] [address], [place] [address] May, [facility] [address] [id number] [address] [place] [address], [place] [address] May, [facility] [address] [id number] [address] [place] [address], [place] [address] May, [facility] [address] [id number] [address] [place] [address], [place] [address] Apr, [facility] [address] [id number] [address] [place] [address], [place] [address] Apr, [facility] [address] [id number] [address] [place] [address], [place] [address] Apr, [facility] [address] [id number] [address] [place] [address], [place] [address] Apr, [facility] [address] [id number] [address] [place] [address], [place] [address] Apr, [facility] [address] [id number] [address] [place] [address], [place] [address] 19 Apr, 2013 [facility] [address] [id number] [address] [place] [address], [place] [address] 18 Apr, 2013 [facility] [address] [id number] [address] [place] [address], [place] [address] 18 Apr, 2013 [facility] [address] [id number] [address] [place] [address], [place] [address] 17 Apr, 2013 [facility] [address] [id number] [address] [place] [address], [place] [address] Apr, [facility] [address] [id number] [address] [place] [address], [place] [address] Apr, [facility] [address] [id number] [address] [place] [address], [place] [address] Apr, [facility] [address] [id number] [address] [place] [address], [place] [address] Apr, [facility] [address] [id number] [address] [place] [address], [place] [address] Apr, [facility] [address] [id number] [address] [place] [address], [place] [address] Apr, [facility] [address] [id number] [address] [place] [address], [place] [address] Apr, [facility] [address] [id number] [address] [place] [address], [place] [address] Apr, [facility] [address] [id number] [address] [place] [address], [place] [address] Apr, [facility] [address] [id number] [address] [place] [address], [place] [address] Mar, [facility] [address] [id number] [address] [place] [address], [place] [address] 27 Mar, 2013 [facility] [address] [id number] [address] [place] [address], [place] [address] 14 Mar, 2013 [facility] [address] [id number] [address] [place] [address], [place] [address] 14 Mar, 2013 [facility] [address] [id number] [address] [place] [address], [place] [address] Mar, [facility] [address] [id number] [address] [place] [address], [place] [address] Mar, [facility] [address] [id number] [address] [place] [address], [place] [address] Mar, [facility] [address] [id number] [address] [place] [address] [place] [address] Mar, [facility] [address] [id number] [address] [place] [address], [place] [address] Mar, [facility] [address] [id number] [address] [place] [address], [place] [address] Mar, [facility] [address] [id number] [address] [place] [address], [place] [address] Mar, [facility] [address] [id number] [address] [place] [address], [place] [address] Feb, [facility] [address] [id number] [address] [place] [address], [place] [address] Feb, [facility] [address] [id number] [address] [place] [address], [place] [address] Feb, [facility] [address] [id number] [address] [place] [address], [place] [address] Feb, [facility] [address] [id number] [address] [place] [address], [place] [address] Feb, [facility] [address] [id number] [address] [place] [address], [place] [address] Dec, [facility] [address] [id number] [address] [place] [address], [place] [address] Dec, [facility] [address] [id number] [address] [place] [address], [place] [address] Dec, [facility] [address] [id number] [address] [place] [address], [place] [address] Dec, [facility] [address] [id number] [address] [place] [address], [place] [address] Nov, [facility] [address] [id number] [address] [place] [address], [place] [address] Nov, [facility] [address] [id number] [address] [place] [address], [place] [address] Nov, [facility] [address] [id number] [address] [place] [address], [place] [address] Nov, [facility] [address] [id number] [address] [place] [address], [place] [address] Nov, [facility] [address] [id number] [address] [place] [address], [place] [address] Nov, [facility] [address] [id number] [address] [place] [address], [place] [address] Oct, [facility] [address] [id number] [address] [place] [address], [place] [address] Oct, [facility] [address] [id number] [address] [place] [address], [place] [address] Oct, [facility] [address] [id number] [address] [place] [address], [place] [address] Oct, [facility] [address] [id number] [address] [place] [address], [place] [address] September, [facility] [address] [id number] [address] [place] [address], [place] [address] September, [facility] [address] [id number] [address] [place] [address], [place] [address] September, [facility] [address] [id number] [address] [place] [address], [place] [address] September, [facility] [address] [id number] [address] [place] [address], [place] [address] September, [facility] [address] [id number] [address] [place] [address], [place] [address] September, [facility] [address] [id number] [address] [place] [address], [place] [address] September, [facility] [address] [id number] [address] [place] [address], [place] [address] September, [facility] [address] [id number] [address] [place] [address], [place] [address] Aug, [facility] [address] [id number] [address] [place] [address], [place] [address] 08 Aug, 2012 [facility] [address] [id number] [address] [place] [address], [place] [address] Jul, [facility] [address] [id number] [address] [place] [address], [place] [address] Jun, [facility] [address] [id number] [address] [place] [address], [place] [address] May, [facility] [address] [id number] [address] [place] [address], [place] [address] May, [facility] [address] [id number] [address] [place] [address], [place] [address] May, [facility] [address] [id number] [address] [place] [address], [place] [address] May, [facility] [address] [id number] [address] [place] [address], [place] [address] 28 Apr, 2012 [facility] [address] [id number] [address] [place] [address], [place] [address] Apr, [facility] [address] [id number] [address] [place] [address], [place] [address] 28 Apr, 2012 [facility] [address] [id number] [address] [place] [address], [place] [address] 28 Apr, 2012 [facility] [address] [id number] [address] [place] [address], [place] [address] 22 Apr, 2012 [facility] [address] [id number] [address] [place] [address], [place] [address] 22 Apr, 2012 [facility] [address] [id number] [address] [place] [address], [place] [address] 17 Apr, 2012 [facility] [address] [id number] [address] [place] [address], [place] [address] 14 Apr, 2012 [facility] [address] [id number] [address] [place] [address], [place] [address] 14 Apr, 2012 [facility] [address] [id number] [address] [place] [address], [place] [address] 30 Mar, 2012 [facility] [address] [id number] [address] [place] [address], [place] [address] 30 Mar, 2012 [facility] [address] [id number] [address] [place] [address], [place] [address] 27 Mar, 2012 [facility] [address] [id number] [address] [place] [address], [place] [address] 27 Mar, 2012 [facility] [address] [id number] [address] [place] [address], [place] [address] 16 Mar, 2012 [facility] [address] [id number] [address] [place] [address], [place] [address] 16 Mar, 2012 [facility] [address] [id number] [address] [place] [address], [place] [address] 16 Mar, 2012 [facility] [address] [id number] [address] [place] [address], [place] [address] 16 Mar, 2012 [facility] [address] [id number] [address] [place] [address], [place] [address] 16 Mar, 2012 [facility] [address] [id number] [address] [place] [address], [place] [address] 16 Mar, 2012 [facility] [address] [id number] [address] [place] [address], [place] [address] 14 Mar, 2012 [facility] [address] [id number] [address] [place] [address], [place] [address] 14 Mar, 2012 [facility] [address] [id number] [address] [place] [address], [place] [address] 13 Mar, 2012 [facility] [address] [id number] [address] [place] [address], [place] [address] 13 Mar, 2012 [facility] [address] [id number] [address] [place] [address], [place] [address] Mar, [facility] [address] [id number] [address] [place] [address], [place] [address] Mar, [facility] [address] [id number] [address] [place] [address], [place] [address] Mar, [facility] [address] [id number] [address] [place] [address], [place] [address] Mar, [facility] [address] [id number] [address] [place] [address], [place] [address] Mar, [facility] [address] [id number] [address] [place] [address], [place] [address] Feb, [facility] [address] [id number] [address] [place] [address], [place] [address] Feb, [facility] [address] [id number] [address] [place] [address], [place] [address] Feb, [facility] [address] [id number] [address] [place] [address], [place] [address] Feb, [facility] [address] [id number] [address] [place] [address], [place] [address] Jan, [facility] [address] [id number] [address] [place] [address], [place] [address] Jan, [facility] [address] [id number] [address] [place] [address], [place] [address] Dec, [facility] [address] [id number] [address] [place] [address] Dec, [facility] [address] [id number] [address] [place] [address], [place] [address] Dec, [facility] [address] [id number] [address] [place] [address], [place] [address] Nov, [facility] [address] [id number] [address] [place] [address], [place] [address] Nov, [facility] [address] [id number] [address] [place] [id number] Oct, [facility] [address] [id number] [address] [place] [address], [place] [id number] Oct, [facility] [address] [id number] [address] [place] [address], [place] [id number] September, [facility] [address] [id number] [address] [place] [address], [place] [address] September, [facility] [address] [id number] [address] [place] [address], [place] [address] September, [facility] [address] [id number] [address] [place] [address], [place] [address] September, [facility] [address] [id number] [address] [place] [address], [place] [id number] Aug, [facility] [address] [id number] [address] [place] [address], [place] [address] Jul, [facility] [address] [id number] [address] [place] [address], [place] [address] Jul, [facility] [address] [id number] [address] [place] [address], [place] [address] Jun, [facility] [address] [id number] [address] [place] [address], [place] [id number] Jun, [facility] [address] [id number] [address] [place] [address], [place] [id number] Jun, [facility] [address] [id number] [address] [place] [address], [place] [address] May, [facility] [address] [id number] [address] [place] [address], [place] [id number] May, [facility] [address] [id number] [address] [place] [address], [place] [address] May, [facility] [address] [id number] [address] [place] [address], [place] [address] May, [facility] [address] [id number] [address] [place] [address], [place] [address] Apr, [facility] [address] [id number] [address] [place] [address], [place] [address] Apr, [facility] [address] [id number] [address] [place] [address], [place] [id number] Apr, [facility] [address] [id number] [address] [place] [address], [place] [address] Mar, [facility] [address] [id number] [address] [place] [address], [place] [address] Mar, [facility] [address] [id number] [address] [place] [address], [place] [address] Mar, [facility] [address] [id number] [address] [place] [address], [place] [address] Mar, [facility] [address] [id number] [address] [place] [address], [place] [address] Mar, [facility] [address] [id number] [address] [place] [address], [place] [address] Feb, [facility] [address] [id number] [address] [place] [address], [place] [address] Feb, [facility] [address] [id number] [address] [place] [address], [place] [address] Feb, [facility] [address] [id number] [address] [place] [address], [place] [address] Feb, [facility] [address] [id number] [address] [place] [address], [place] [address] Feb, [facility] [address] [id number] [address] [place] [address], [place] [address] Feb, [facility] [address] [id number] [address] [place] [address], [place] [address] Feb, [facility] [address] [id number] [address] [place] [address], [place] [address] Apr, 2010 [facility] [address] [id number] [address] [place] [address], [place] [address] 23 Apr, 2010 [facility] [address] [id number] [address] [place] [address], [place] [address] 15 Apr, 2010 [facility] [address] [id number] [address] [place] [address], [place] [address] 15 Apr, 2010 [facility] [address] [id number] [address] [place] [address], [place] [address] Apr, [facility] [address] [id number] [address] [place] [address], [place] [address] Apr, [facility] [address] [id number] [address] [place] [id number] 18 Mar, 2010 [facility] [address] [id number] [address] [place] [address], [place] [address] 18 Mar, 2010 [facility] [address] [id number] [address] [place] [id number] 17 Mar, 2010 [facility] [address] [id number] [address] [place] [id number] 16 Mar, 2010 [facility] [address] [id number] [address] [place] [id number] 10 Mar, 2010 [facility] [address] [id number] [address] [place] [id number] 10 Mar, 2010 [facility] [address] [id number] [address] [place] [id number] 04 Mar, 2010 [facility] [address] [id number] [address] [place] [address], [place] [address] Mar, [facility] [address] [id number] [address] [place] [id number] Feb, [facility] [address] [id number] [address] [place] [id number] Feb, [facility] [address] [id number] [address] [place] [id number] Dec, [facility] [address] [id number] [address] [place] [id number] Jun, [facility] [address] [id number] [address] [place] [id number] Jun, [facility] [address] [id number] [address] [place] [id number] May, [facility] [address] [id number] [address] [place] [id number] Feb, [facility] [address] [id number] [address] [place] [id number] Feb, [facility] [address] [id number] [address] [place] [id number] Feb, [facility] [address] [id number] [address] [place] [id number] Feb, [facility] [address] [address] [id number] [address] [place] [id number] Feb, [facility] [address] [id number] [address] [place] [id number] Feb, [facility] [address] [id number] [address] [place] [id number] Feb, [facility] [address] [id number] [address] [place] [id number] Jul, [facility] [address] [id number] [address] [place] [phone] Jun, IMMUNIZATIONS No Known Immunizations SOCIAL HISTORY Never Assessed REASON FOR VISIT PLAN OF CARE VITAL SIGNS Height 66 in 2014-06-24 Weight 280.12 lbs 2014-06-24 Temperature 97.2 degrees Fahrenheit 2014-06-24 Heart Rate 80 bpm 2014-06-24 Respiratory Rate 26 2014-06-24 Blood pressure systolic 150 mmHg 2014-06-24 Blood pressure diastolic 110 mmHg 2014-06-24 MEDICATIONS Unknown Medications RESULTS No Results PROCEDURES [...] 08/2014 Hospitalization History Rt hand post op infection-[facility] 7 Hospitalization History cellulitus Right elbow-[facility] 12/09/16
[2019-10-27 22:10] LABS: BUN/CREATININE RATIO 7
--- OUTSIDE RECORDS SUMMARY | 2019-10-27 22:10 | XMS REPORT ---
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 [address] [place] [id number] Oct, [facility] [address] [facility] [id number] [address] [place] [phone] Oct, [facility] [address] [place] [id number] [address] [place] [phone] Oct, Major depressive disorder, r ecurrent episode, unspecified 296.30 and Anxiety state 300.00 [facility] [address] [facility] [id number] [address] [place] [phone] Oct, Spider bite 989.5 [facility] [address] [facility] [id number] [address] [place] [phone] Oct, [facility] [address] [facility] [id number] [address] [place] [address] September, Contact dermatitis 692.9 and Sciatica 724.3 [facility] [address] [id number] [address] [place] [phone] September, [facility] [address] [id number] [address] [place] [address] September, Generalized anxiety disorder 300.02 ; Posttraumatic stress disorder 309.81 and Depression, major, recurrent, in partial remission 296.35 [facility] [address] [id number] [address] [place] [phone] September, Cellulitis 682.9 [facility] [address] [id number] [address] [place] [address] September, [facility] [address] [id number] [address] [place] [phone] September, [facility] [address] [id number] [address] [place] [address] Aug, [facility] [address] [id number] [address] [place] [address] Aug, [facility] [address] [id number] [address] [place] [phone] Aug, [facility] [address] [id number] [address] [place] [phone] Aug, [facility] [address] [id number] [address] [place] [phone] Jul, [facility] [address] [id number] [address] [place] [phone] Jul, [facility] [address] [id number] [address] [place] [phone] Jul, [facility] [address] [id number] [address] [place] [phone] Jul, [facility] [address] [id number] [address] [place] [phone] Jul, [facility] [address] [id number] [address] [place] [address], [place] [address] Jul, [facility] [address] [id number] [address] [place] [address], [place] [address] Jul, [facility] [address] [id number] [address] [place] [address], [place] [address] Jul, [facility] [address] [id number] [address] [place] [address], [place] [address] Jul, [facility] [address] [id number] [address] [place] [address], [place] [address] Jul, [facility] [address] [id number] [address] [place] [address], [place] [phone] 05 Jul, 2014 [facility] [address] [id number] [address] [place] [address], [place] [address] Jul, [facility] [address] [id number] [address] [place] [address], [place] [address] Jul, [facility] [address] [id number] [address] [place] [address], [place] [address] Jul, [facility] [address] [id number] [address] [place] [address], [place] [address] Jul, [facility] [address] [id number] [address] [place] [address], [place] [address] Jun, [facility] [address] [id number] [address] [place] [address], [place] [address] Jun, 2014 [facility] [address] [id number] [address] [place] [address], [place] [address] Jun, 2014 [facility] [address] [id number] [address] [place] [address], [place] [address] Jun, 2014 [facility] [address] [id number] [address] [place] [address], [place] [address] Jun, 2014 [facility] [address] [id number] [address] [place] [address], [place] [address] Jun, 2014 [facility] [address] [id number] [address] [place] [address], [place] [address] Jun, 2014 [facility] [address] [id number] [address] [place] [address], [place] [address] Jun, 2014 [facility] [address] [id number] [address] [place] [address], [place] [address] Jun, 2014 [facility] [address] [id number] [address] [place] [address], [place] [address] Jun, 2014 [facility] [address] [id number] [address] [place] [address], [place] [address] Jun, 2014 [facility] [address] [id number] [address] [place] [address], [place] [address] 17 Jun, 2014 [facility] [address] [id number] [address] [place] [address], [place] [address] Jun, 2014 [facility] [address] [id number] [address] [place] [address], [place] [address] Jun, 2014 [facility] [address] [id number] [address] [place] [address], [place] [address] Jun, 2014 [facility] [address] [id number] [address] [place] [address], [place] [address] 10 Jun, 2014 [facility] [address] [id number] [address] [place] [address], [place] [address] Jun, 2014 [facility] [address] [id number] [address] [place] [address], [place] [address] Jun, 2014 [facility] [address] [id number] [address] [place] [address], [place] [address] Jun, 2014 [facility] [address] [id number] [address] [place] [address], [place] [address] 06 Jun, 2014 [facility] [address] [id number] [address] [place] [address], [place] [address] Jun, [facility] [address] [id number] [address] [place] [address], [place] [address] Jun, [facility] [address] [id number] [address] [place] [address], [place] [address] Jun, [facility] [address] [id number] [address] [place] [address], [place] [address] Jun, [facility] [address] [id number] [address] [place] [address], [place] [address] Jun, [facility] [address] [id number] [address] [place] [address], [place] [address] May, [facility] [address] [id number] [address] [place] [address], [place] [address] May, [facility] [address] [id number] [address] [place] [address], [place] [address] May, [facility] [address] [id number] [address] [place] [address], [place] [address] May, [facility] [address] [id number] [address] [place] [address], [place] [address] May, [facility] [address] [id number] [address] [place] [address], [place] [address] May, [facility] [address] [id number] [address] [place] [address], [place] [address] May, [facility] [address] [id number] [address] [place] [address] May, [facility] [address] [id number] [address] [place] [address], [place] [address] May, [facility] [address] [id number] [address] [place] [address], [place] [address] May, [facility] [address] [id number] [address] [place] [address], [place] [address] May, [facility] [address] [id number] [address] [place] [address], [place] [address] May, [facility] [address] [id number] [address] [place] [address], [place] [address] May, [facility] [address] [id number] [address] [place] [address], [place] [address] May, [facility] [address] [id number] [address] [place] [address], [place] [address] May, [facility] [address] [id number] [address] [place] [address], [place] [address] May, [facility] [address] [id number] [address] [place] [address], [place] [address] May, [facility] [address] [id number] [address] [place] [address], [place] [address] Apr, [facility] [address] [id number] [address] [place] [address], [place] [address] Apr, [facility] [address] [id number] [address] [place] [address], [place] [address] Apr, [facility] [address] [id number] [address] [place] [address], [place] [address] Apr, [facility] [address] [id number] [address] [place] [address], [place] [address] Mar, [facility] [address] [id number] [address] [place] [address], [place] [address] Mar, [facility] [address] [id number] [address] [place] [address], [place] [address] Mar, [facility] [address] [id number] [address] [place] [address], [place] [address] Mar, [facility] [address] [id number] [address] [place] [address], [place] [address] Mar, [facility] [address] [id number] [address] [place] [address], [place] [address] Mar, [facility] [address] [id number] [address] [place] [address], [place] [address] Feb, [facility] [address] [id number] [address] [place] [address], [place] [address] Feb, [facility] [address] [id number] [address] [place] [address], [place] [address] 18 Jan, 2014 [facility] [address] [id number] [address] [place] [address], [place] [address] Jan, [facility] [address] [id number] [address] [place] [address], [place] [address] Jan, [facility] [address] [id number] [address] [place] [address], [place] [address] Jan, [facility] [address] [id number] [address] [place] [address], [place] [address] Jan, [facility] [address] [id number] [address] [place] [address], [place] [address] Jan, [facility] [address] [id number] [address] [place] [address], [place] [id number] Jan, [facility] [address] [id number] [address] [place] [address], [place] [address] Jan, [facility] [address] [id number] [address] [place] [address], [place] [address] Jan, [facility] [address] [id number] [address] [place] [address], [place] [address] Jan, [facility] [address] [id number] [address] [place] [address], [place] [address] Dec, [facility] [address] [id number] [address] [place] [address], [place] [address] Dec, [facility] [address] [id number] [address] [place] [address], [place] [address] Dec, [facility] [address] [id number] [address] [place] [address], [place] [address] Dec, [facility] [address] [id number] [address] [place] [address], [place] [address] Dec, [facility] [address] [id number] [address] [place] [address], [place] [address] Dec, [facility] [address] [id number] [address] [place] [address], [place] [address] Dec, [facility] [address] [id number] [address] [place] [address], [place] [address] Dec, [facility] [address] [id number] [address] [place] [address], [place] [address] Dec, [facility] [address] [id number] [address] [place] [address], [place] [address] Nov, [facility] [address] [id number] [address] [place] [address], [place] [address] Nov, [facility] [address] [id number] [address] [place] [address], [place] [address] Nov, [facility] [address] [id number] [address] [place] [address], [place] [address] Nov, [facility] [address] [id number] [address] [place] [address], [place] [address] Nov, [facility] [address] [id number] [address] [place] [address], [place] [address] Nov, [facility] [address] [id number] [address] [place] [address], [place] [address] Nov, [facility] [address] [id number] [address] [place] [address], [place] [address] Nov, [facility] [address] [id number] [address] [place] [address], [place] [address] Nov, [facility] [address] [id number] [address] [place] [address], [place] [address] Nov, [facility] [address] [id number] [facility] [place] [address] Nov, 2013 [facility] [address] [id number] [facility] [place] [address] Nov, 2013 [facility] [address] [id number] [facility] [place] [address] Nov, 2013 [facility] [address] [id number] [address] [place] [address], [place] [address] Nov, [facility] [address] [id number] [address] [place] [address], [place] [address] Nov, [facility] [address] [id number] [address] [place] [address], [place] [address] Oct, [facility] [address] [id number] [address] [place] [address], [place] [address] Oct, [facility] [address] [id number] [address] [place] [address], [place] [address] Oct, [facility] [address] [id number] [address] [place] [address], [place] [address] Oct, [facility] [address] [id number] [address] [place] [address], [place] [address] Oct, [facility] [address] [id number] [address] [place] [address], [place] [address] Oct, [facility] [address] [id number] [address] [place] [address], [place] [address] Oct, [facility] [address] [id number] [address] [place] [address], [place] [address] Oct, [facility] [address] [id number] [address] [place] [address], [place] [address] Oct, [facility] [address] [id number] [address] [place] [address], [place] [address] Oct, [facility] [address] [id number] [address] [place] [address], [place] [address] Oct, [facility] [address] [id number] [address] [place] [address], [place] [address] Oct, [facility] [address] [id number] [address] [place] [address], [place] [address] Oct, [facility] [address] [id number] [address] [place] [address], [place] [address] Oct, [facility] [address] [id number] [address] [place] [address], [place] [address] September, [facility] [address] [id number] [address] [place] [address], [place] [address] September, [facility] [address] [id number] [address] [place] [address], [place] [address] September, [facility] [address] [id number] [address] [place] [address], [place] [address] September, [facility] [address] [id number] [address] [place] [address], [place] [address] September, [facility] [address] [id number] [address] [place] [address], [place] [address] September, [facility] [address] [id number] [address] [place] [address], [place] [address] September, [facility] [address] [id number] [address] [place] [address], [place] [address] September, [facility] [address] [id number] [address] [place] [address], [place] [address] September, [facility] [address] [id number] [address] [place] [address], [place] [address] September, [facility] [address] [id number] [address] [place] [address], [place] [address] September, [facility] [address] [id number] [address] [place] [address], [place] [address] September, [facility] [address] [id number] [address] [place] [address], [place] [address] September, [facility] [address] [id number] [facility] [place] [address] Aug, [facility] [address] [id number] [address] [place] [address], [place] [address] Aug, [facility] [address] [id number] [address] [place] [address], [place] [address] Aug, [facility] [address] [id number] [address] [place] [address], [place] [address] Aug, [facility] [address] [id number] [address] [place] [address], [place] [address] Aug, [facility] [address] [id number] [address] [place] [address], [place] [address] Aug, [facility] [address] [id number] [address] [place] [address], [place] [address] Aug, [facility] [address] [id number] [address] [place] [address], [place] [address] Aug, [facility] [address] [id number] [address] [place] [address], [place] [address] Aug, [facility] [address] [id number] [address] [place] [address], [place] [address] Aug, [facility] [address] [id number] [address] [place] [address], [place] [address] Jul, [facility] [address] [id number] [address] [place] [address], [place] [address] Jul, [facility] [address] [id number] [address] [place] [address], [place] [address] Jul, [facility] [address] [id number] [address] [place] [address], [place] [address] Jul, [facility] [address] [id number] [address] [place] [address], [place] [address] 13 Jul, 2013 [facility] [address] [id number] [facility] [place] [address] 13 Jul, 2013 [facility] [address] [id number] [address] [place] [address], [place] [address] Jul, [facility] [address] [id number] [facility] [place] [address] Jul, [facility] [address] [id number] [address] [place] [address], [place] [address] Jun, [facility] [address] [id number] [address] [place] [address], [place] [address] Jun, [facility] [address] [id number] [address] [place] [address], [place] [address] 14 Jun, 2013 [facility] [address] [id number] [address] [place] [address], [place] [address] Jun, [facility] [address] [id number] [address] [place] [address], [place] [address] Jun, [facility] [address] [id number] [address] [place] [address], [place] [address] Jun, [facility] [address] [id number] [address] [place] [address], [place] [address] Jun, [facility] [address] [id number] [address] [place] [address], [place] [address] Jun, [facility] [address] [id number] [address] [place] [address], [place] [address] Jun, 2013 [facility] [address] [id number] [address] [place] [address], [place] [address] Jun, [facility] [address] [id number] [address] [place] [address], [place] [address] Jun, [facility] [address] [id number] [address] [place] [address], [place] [address] Jun, 2013 [facility] [address] [id number] [address] [place] [address], [place] [address] 02 Jun, 2013 [facility] [address] [id number] [address] [place] [address], [place] [address] Jun, [facility] [address] [id number] [address] [place] [address], [place] [address] May, [facility] [address] [id number] [address] [place] [address], [place] [address] May, [facility] [address] [id number] [address] [place] [address], [place] [address] May, [facility] [address] [id number] [address] [place] [address], [place] [address] May, [facility] [address] [id number] [address] [place] [address], [place] [address] May, [facility] [address] [id number] [address] [place] [address], [place] [address] May, [facility] [address] [id number] [address] [place] [address], [place] [address] May, [facility] [address] [id number] [address] [place] [address], [place] [address] May, [facility] [address] [id number] [address] [place] [address], [place] [address] May, [facility] [address] [id number] [address] [place] [address], [place] [address] May, [facility] [address] [id number] [address] [place] [address], [place] [address] May, [facility] [address] [id number] [address] [place] [address], [place] [address] May, [facility] [address] [id number] [address] [place] [address], [place] [address] May, [facility] [address] [id number] [address] [place] [address], [place] [address] 15 May, 2013 [facility] [address] [id number] [address] [place] [address], [place] [address] May, [facility] [address] [id number] [address] [place] [address], [place] [address] May, [facility] [address] [id number] [address] [place] [address], [place] [address] May, [facility] [address] [id number] [address] [place] [address], [place] [address] May, [facility] [address] [id number] [address] [place] [address], [place] [address] May, [facility] [address] [id number] [address] [place] [address], [place] [address] May, [facility] [address] [id number] [address] [place] [address], [place] [address] Apr, [facility] [address] [id number] [address] [place] [address], [place] [address] 31 Apr, 2013 [facility] [address] [id number] [address] [place] [address], [place] [address] Apr, [facility] [address] [id number] [address] [place] [address], [place] [address] Apr, [facility] [address] [id number] [address] [place] [address], [place] [address] 19 Apr, 2013 [facility] [address] [id number] [address] [place] [address], [place] [address] 19 Apr, 2013 [facility] [address] [id number] [address] [place] [address], [place] [address] 18 Apr, 2013 [facility] [address] [id number] [address] [place] [address], [place] [address] 18 Apr, 2013 [facility] [address] [id number] [address] [place] [address], [place] [address] 17 Apr, 2013 [facility] [address] [id number] [address] [place] [address] 17 Apr, 2013 [facility] [address] [id number] [address] [place] [address], [place] [address] Apr, [facility] [address] [id number] [address] [place] [address], [place] [address] Apr, [facility] [address] [id number] [address] [place] [address], [place] [address] Apr, [facility] [address] [id number] [address] [place] [address], [place] [address] Apr, [facility] [address] [id number] [address] [place] [address], [place] [address] Apr, [facility] [address] [id number] [address] [place] [address], [place] [address] Apr, [facility] [address] [id number] [address] [place] [address], [place] [address] Apr, [facility] [address] [id number] [address] [place] [address], [place] [address] Apr, [facility] [address] [id number] [address] [place] [address], [place] [address] Mar, [facility] [address] [id number] [address] [place] [address], [place] [address] 27 Mar, 2013 [facility] [address] [id number] [address] [place] [address] 14 Mar, 2013 [facility] [address] [id number] [address] [place] [address] 14 Mar, 2013 [facility] [address] [id number] [address] [place] [address], [place] [address] 11 Mar, 2013 [facility] [address] [id number] [address] [place] [address], [place] [address] Mar, [facility] [address] [id number] [address] [place] [address], [place] [address] Mar, [facility] [address] [id number] [address] [place] [address], [place] [address] Mar, [facility] [address] [id number] [address] [place] [address], [place] [address] Mar, [facility] [address] [id number] [address] [place] [address], [place] [address] Mar, [facility] [address] [id number] [address] [place] [address], [place] [address] Mar, [facility] [address] [id number] [address] [place] [address], [place] [address] Feb, [facility] [address] [id number] [address] [place] [address], [place] [address] Feb, [facility] [address] [id number] [address] [place] [address], [place] [address] Feb, [facility] [address] [id number] [address] [place] [address], [place] [address] Feb, [facility] [address] [id number] [address] [place] [address], [place] [address] Feb, [facility] [address] [id number] [address] [place] [address], [place] [address] Dec, [facility] [address] [id number] [address] [place] [address], [place] [address] Dec, [facility] [address] [id number] [address] [place] [address], [place] [address] Dec, [facility] [address] [id number] [address] [place] [address], [place] [address] Dec, [facility] [address] [id number] [address] [place] [address], [place] [address] Nov, [facility] [address] [id number] [address] [place] [address], [place] [address] Nov, [facility] [address] [id number] [address] [place] [address], [place] [address] Nov, [facility] [address] [id number] [address] [place] [address], [place] [address] Nov, [facility] [address] [id number] [address] [place] [address], [place] [address] Nov, [facility] [address] [id number] [address] [place] [address], [place] [address] Nov, [facility] [address] [id number] [address] [place] [address], [place] [address] Oct, [facility] [address] [id number] [address] [place] [address], [place] [address] Oct, [facility] [address] [id number] [address] [place] [address], [place] [address] Oct, [facility] [address] [id number] [address] [place] [address], [place] [address] Oct, [facility] [address] [id number] [address] [place] [address], [place] [address] September, [facility] [address] [id number] [address] [place] [address], [place] [address] September, [facility] [address] [id number] [address] [place] [address], [place] [address] September, [facility] [address] [id number] [address] [place] [address], [place] [address] September, [facility] [address] [id number] [address] [place] [address], [place] [address] September, [facility] [address] [id number] [address] [place] [address], [place] [address] September, [facility] [address] [id number] [address] [place] [address], [place] [address] September, [facility] [address] [id number] [address] [place] [address], [place] [address] September, [facility] [address] [id number] [address] [place] [address], [place] [address] Aug, [facility] [address] [id number] [address] [place] [address], [place] [address] 08 Aug, 2012 [facility] [address] [id number] [address] [place] [address], [place] [address] Jul, [facility] [address] [id number] [address] [place] [address], [place] [address] Jun, [facility] [address] [id number] [address] [place] [address], [place] [address] 24 May, 2012 [facility] [address] [id number] [address] [place] [address], [place] [address] May, [facility] [address] [id number] [address] [place] [address], [place] [address] 14 May, 2012 [facility] [address] [id number] [address] [place] [address], [place] [address] May, [facility] [address] [id number] [address] [place] [address], [place] [address] 28 Apr, 2012 [facility] [address] [id number] [address] [place] [address], [place] [address] 28 Apr, 2012 [facility] [address] [id number] [address] [place] [address], [place] [address] 28 Apr, 2012 [facility] [address] [id number] [address] [place] [address], [place] [address] 28 Apr, 2012 [facility] [address] [id number] [address] [place] [address], [place] [address] 22 Apr, 2012 [facility] [address] [id number] [address] [place] [address], [place] [address] 22 Apr, 2012 [facility] [address] [id number] [address] [place] [address], [place] [address] 17 Apr, 2012 [facility] [address] [id number] [address] [place] [address], [place] [address] 14 Apr, 2012 [facility] [address] [id number] [address] [place] [address], [place] [address] 14 Apr, 2012 [facility] [address] [id number] [address] [place] [address], [place] [address] 30 Mar, 2012 [facility] [address] [id number] [address] [place] [address], [place] [address] 30 Mar, 2012 [facility] [address] [id number] [address] [place] [address], [place] [address] 27 Mar, 2012 [facility] [address] [id number] [address] [place] [address], [place] [address] 27 Mar, 2012 [facility] [address] [id number] [address] [place] [address], [place] [address] 16 Mar, 2012 [facility] [address] [id number] [address] [place] [address], [place] [address] 16 Mar, 2012 [facility] [address] [id number] [address] [place] [address], [place] [address] 16 Mar, 2012 [facility] [address] [id number] [address] [place] [address], [place] [address] 16 Mar, 2012 [facility] [address] [id number] [address] [place] [address], [place] [address] 16 Mar, 2012 [facility] [address] [id number] [address] [place] [address], [place] [address] 16 Mar, 2012 [facility] [address] [id number] [address] [place] [address], [place] [address] 14 Mar, 2012 [facility] [address] [id number] [address] [place] [address], [place] [address] 14 Mar, 2012 [facility] [address] [id number] [address] [place] [address], [place] [address] 13 Mar, 2012 [facility] [address] [id number] [address] [place] [address], [place] [address] 13 Mar, 2012 [facility] [address] [id number] [address] [place] [address], [place] [address] Mar, [facility] [address] [id number] [address] [place] [address], [place] [address] Mar, [facility] [address] [id number] [address] [place] [address], [place] [address] Mar, [facility] [address] [id number] [address] [place] [address], [place] [address] Mar, [facility] [address] [id number] [address] [place] [address], [place] [address] Mar, [facility] [address] [id number] [address] [place] [address], [place] [address] Feb, [facility] [address] [id number] [address] [place] [address], [place] [address] Feb, [facility] [address] [id number] [address] [place] [address], [place] [address] Feb, [facility] [address] [id number] [address] [place] [address], [place] [address] Feb, [facility] [address] [id number] [address] [place] [address], [place] [address] Jan, [facility] [address] [id number] [address] [place] [address], [place] [address] Jan, [facility] [address] [id number] [address] [place] [address], [place] [address] Dec, [facility] [address] [id number] [address] [place] [address], [place] [address] Dec, [facility] [address] [id number] [address] [place] [address], [place] [address] Dec, [facility] [address] [id number] [address] [place] [address], [place] [address] Nov, [facility] [address] [id number] [address] [place] [address], [place] [address] Nov, [facility] [address] [id number] [address] [place] [address], [place] [address] Oct, [facility] [address] [id number] [address] [place] [address], [place] [address] Oct, [facility] [address] [id number] [address] [place] [address], [place] [address] September, [facility] [address] [id number] [address] [place] [address], [place] [address] September, [facility] [address] [id number] [address] [place] [address], [place] [address] September, [facility] [address] [id number] [address] [place] [address], [place] [address] September, [facility] [address] [id number] [address] [place] [address], [place] [address] Aug, [facility] [address] [id number] [address] [place] [address], [place] [address] Jul, [facility] [address] [id number] [address] [place] [address], [place] [address] Jul, [facility] [address] [id number] [address] [place] [address], [place] [address] Jun, [facility] [address] [id number] [address] [place] [address], [place] [address] Jun, [facility] [address] [id number] [address] [place] [address], [place] [address] Jun, [facility] [address] [id number] [address] [place] [address], [place] [address] May, [facility] [address] [id number] [address] [place] [address], [place] [address] May, [facility] [address] [id number] [address] [place] [address], [place] [address] May, [facility] [address] [id number] [address] [place] [address], [place] [address] May, [facility] [address] [id number] [address] [place] [address], [place] [address] Apr, [facility] [address] [id number] [address] [place] [address], [place] [address] Apr, [facility] [address] [id number] [address] [place] [address], [place] [address] Apr, [facility] [address] [id number] [address] [place] [address], [place] [address] Mar, [facility] [address] [id number] [address] [place] [address], [place] [address] Mar, [facility] [address] [id number] [address] [place] [address], [place] [address] Mar, [facility] [address] [id number] [address] [place] [address], [place] [address] Mar, [facility] [address] [id number] [address] [place] [address], [place] [address] Mar, [facility] [address] [id number] [address] [place] [address], [place] [address] Feb, [facility] [address] [id number] [address] [place] [address], [place] [address] Feb, [facility] [address] [id number] [address] [place] [address], [place] [address] Feb, [facility] [address] [id number] [address] [place] [address] Feb, [facility] [address] [id number] [address] [place] [address], [place] [address] Feb, [facility] [address] [id number] [address] [place] [address], [place] [address] Feb, [facility] [address] [id number] [address] [place] [address], [place] [address] Feb, [facility] [address] [id number] [address] [place] [address] [place] [address] 28 Apr, 2010 [facility] [address] [id number] [address] [place] [address], [place] [address] 23 Apr, 2010 [facility] [address] [id number] [address] [place] [address], [place] [address] 15 Apr, 2010 [facility] [address] [id number] [address] [place] [address], [place] [address] 15 Apr, 2010 [facility] [address] [id number] [address] [place] [address], [place] [address] 02 Apr, 2010 [facility] [address] [id number] [address] [place] [address], [place] [address] 02 Apr, 2010 [facility] [address] [id number] [address] [place] [address], [place] [address] 18 Mar, 2010 [facility] [address] [id number] [address] [place] [address], [place] [address] 18 Mar, 2010 [facility] [address] [id number] [address] [place] [address], [place] [address] 17 Mar, 2010 [facility] [address] [id number] [address] [place] [address], [place] [address] 16 Mar, 2010 [facility] [address] [id number] [address] [place] [address], [place] [address] 10 Mar, 2010 [facility] [address] [id number] [address] [place] [address], [place] [address] 10 Mar, 2010 [facility] [address] [id number] [address] [place] [address], [place] [address] Mar, [facility] [address] [id number] [address] [place] [address], [place] [address] Mar, [facility] [address] [id number] [address] [place] [address], [place] [address] 22 Feb, 2010 [facility] [address] [id number] [address] [place] [address] Feb, [facility] [address] [id number] [address] [place] [address] Dec, [facility] [address] [id number] [address] [place] [address] Jun, [facility] [address] [id number] [address] [place] [address] Jun, [facility] [address] [id number] [address] [place] [address] May, [facility] [address] [id number] [address] [place] [address] Feb, [facility] [address] [id number] [address] [place] [address] Feb, [facility] [address] [id number] [address] [place] [address] Feb, [facility] [address] [id number] [address] [place] [address] Feb, [facility] [address] [id number] [address] [place] [address] Feb, [facility] [address] [id number] [address] [place] [address] Feb, [facility] [address] [id number] [address] [place] [address] Feb, [facility] [address] [id number] [address] [place] [address] Jul, [facility] [address] [id number] [address] [place] [address] Jun, IMMUNIZATIONS No Known Immunizations SOCIAL HISTORY [...] 08/2014 Hospitalization History Rt hand post op infection-[facility] 7 Hospitalization History cellulitus Right elbow-[facility] 12/09/16
--- OUTSIDE RECORDS SUMMARY | 2019-10-27 22:11 | XMS REPORT ---
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 [id number] [address] [place] [id number] Oct, [facility] [address] [facility] [id number] [address] [place] [phone] Oct, [facility] [address] [place] [id number] [address] [place] [id number] Oct, Major depressive disorder, r ecurrent episode, unspecified 296.30 and Anxiety state 300.00 [facility] [address] [facility] [id number] [address] [place] [id number] Oct, Spider bite 989.5 [facility] [address] [facility] [id number] [address] [place] [phone] Oct, [facility] [address] [facility] [id number] [address] [place] [phone] September, Contact dermatitis 692.9 and Sciatica 724.3 [facility] [address] [id number] [address] [place] [id number] September, [facility] [address] [id number] [address] [place] [phone] September, Generalized anxiety disorder 300.02 ; Posttraumatic stress disorder 309.81 and Depression, major, recurrent, in partial remission 296.35 [facility] [address] [id number] [address] [place] [id number] September, Cellulitis 682.9 [facility] [address] [id number] [address] [place] [phone] September, [facility] [address] [id number] [address] [place] [phone] September, [facility] [address] [id number] [address] [place] [id number] Aug, [facility] [address] [id number] [address] [place] [id number] Aug, [facility] [address] [id number] [address] [place] [id number] Aug, [facility] [address] [id number] [address] [place] [phone] Aug, [facility] [address] [id number] [address] [place] [id number] Jul, [facility] [address] [id number] [address] [place] [phone] Jul, [facility] [address] [id number] [address] [place] [phone] Jul, [facility] [address] [id number] [address] [place] [phone] Jul, [facility] [address] [id number] [address] [place] [phone] Jul, [facility] [address] [id number] [address] [place] [address], [place] [id number] Jul, [facility] [address] [id number] [address] [place] [address], [place] [address] Jul, [facility] [address] [id number] [address] [place] [address], [place] [id number] Jul, [facility] [address] [id number] [address] [place] [address], [place] [id number] Jul, [facility] [address] [id number] [address] [place] [address], [place] [id number] Jul, [facility] [address] [id number] [address] [place] [address], [place] [phone] 05 Jul, 2014 [facility] [address] [id number] [address] [place] [address], [place] [id number] Jul, [facility] [address] [id number] [address] [place] [address], [place] [id number] Jul, [facility] [address] [id number] [address] [place] [address], [place] [id number] Jul, [facility] [address] [id number] [address] [place] [address], [place] [id number] Jul, [facility] [address] [id number] [address] [place] [address], [place] [id number] Jun, [facility] [address] [id number] [address] [place] [address], [place] [id number] Jun, 2014 [facility] [address] [id number] [address] [place] [address], [place] [id number] Jun, 2014 [facility] [address] [id number] [address] [place] [address], [place] [address] Jun, 2014 [facility] [address] [id number] [address] [place] [address], [place] [id number] Jun, 2014 [facility] [address] [id number] [address] [place] [address], [place] [id number] Jun, 2014 [facility] [address] [id number] [address] [place] [address], [place] [id number] Jun, 2014 [facility] [address] [id number] [address] [place] [address], [place] [address] Jun, 2014 [facility] [address] [id number] [address] [place] [address], [place] [id number] Jun, 2014 [facility] [address] [id number] [address] [place] [address], [place] [address] Jun, 2014 [facility] [address] [id number] [address] [place] [address], [place] [address] Jun, 2014 [facility] [address] [id number] [address] [place] [address], [place] [id number] 17 Jun, 2014 [facility] [address] [id number] [address] [place] [address], [place] [id number] Jun, 2014 [facility] [address] [id number] [address] [place] [address], [place] [address] Jun, 2014 [facility] [address] [id number] [address] [place] [address], [place] [address] Jun, 2014 [facility] [address] [id number] [address] [place] [address], [place] [address] 10 Jun, 2014 [facility] [address] [id number] [address] [place] [address], [place] [address] Jun, 2014 [facility] [address] [id number] [address] [place] [address], [place] [address] Jun, 2014 [facility] [address] [id number] [address] [place] [address], [place] [address] Jun, 2014 [facility] [address] [id number] [address] [place] [address], [place] [address] 06 Jun, 2014 [facility] [address] [id number] [address] [place] [address], [place] [address] Jun, [facility] [address] [id number] [address] [place] [address], [place] [address] Jun, [facility] [address] [id number] [address] [place] [address], [place] [address] Jun, [facility] [address] [id number] [address] [place] [address], [place] [address] Jun, [facility] [address] [id number] [address] [place] [address], [place] [address] Jun, [facility] [address] [id number] [address] [place] [address], [place] [address] May, [facility] [address] [id number] [address] [place] [address], [place] [address] May, [facility] [address] [id number] [address] [place] [address], [place] [address] May, [facility] [address] [id number] [address] [place] [address], [place] [address] May, [facility] [address] [id number] [address] [place] [address], [place] [address] May, [facility] [address] [id number] [address] [place] [address], [place] [address] May, [facility] [address] [id number] [address] [place] [address], [place] [address] May, [facility] [address] [id number] [address] [place] [id number] May, [facility] [address] [id number] [address] [place] [address], [place] [address] May, [facility] [address] [id number] [address] [place] [address], [place] [address] May, [facility] [address] [id number] [address] [place] [address], [place] [address] May, [facility] [address] [id number] [address] [place] [address], [place] [address] May, [facility] [address] [id number] [address] [place] [address], [place] [address] May, [facility] [address] [id number] [address] [place] [address], [place] [address] May, [facility] [address] [id number] [address] [place] [address], [place] [address] May, [facility] [address] [id number] [address] [place] [address], [place] [address] May, [facility] [address] [id number] [address] [place] [address], [place] [address] May, [facility] [address] [id number] [address] [place] [address], [place] [address] Apr, [facility] [address] [id number] [address] [place] [address], [place] [address] Apr, [facility] [address] [id number] [address] [place] [address], [place] [address] Apr, [facility] [address] [id number] [address] [place] [address], [place] [address] Apr, [facility] [address] [id number] [address] [place] [address], [place] [address] Mar, [facility] [address] [id number] [address] [place] [address], [place] [address] Mar, [facility] [address] [id number] [address] [place] [address], [place] [address] Mar, [facility] [address] [id number] [address] [place] [address], [place] [address] Mar, [facility] [address] [id number] [address] [place] [address], [place] [address] Mar, [facility] [facility] [address] [id number] [address] [place] [address], [place] [address] Mar, [facility] [address] [id number] [address] [place] [address], [place] [address] Feb, [facility] [address] [id number] [address] [place] [address], [place] [address] Feb, [facility] [address] [id number] [address] [place] [address], [place] [address] 18 Jan, 2014 [facility] [address] [id number] [address] [place] [address], [place] [address] Jan, [facility] [address] [id number] [address] [place] [address], [place] [address] Jan, [facility] [address] [id number] [address] [place] [address], [place] [address] Jan, [facility] [address] [id number] [address] [place] [address], [place] [address] Jan, [facility] [address] [id number] [address] [place] [address], [place] [address] Jan, [facility] [address] [id number] [address] [place] [address], [place] [id number] Jan, [facility] [address] [id number] [address] [place] [address], [place] [address] Jan, [facility] [address] [id number] [address] [place] [address], [place] [address] Jan, [facility] [address] [id number] [address] [place] [address], [place] [address] Jan, [facility] [address] [id number] [address] [place] [address], [place] [address] Dec, [facility] [address] [id number] [address] [place] [address], [place] [address] Dec, [facility] [address] [id number] [address] [place] [address], [place] [address] Dec, [facility] [address] [id number] [address] [place] [address], [place] [address] Dec, [facility] [address] [id number] [address] [place] [address], [place] [address] Dec, [facility] [address] [id number] [address] [place] [address], [place] [address] Dec, [facility] [address] [id number] [address] [place] [address], [place] [address] Dec, [facility] [address] [id number] [address] [place] [address], [place] [address] Dec, [facility] [address] [id number] [address] [place] [address], [place] [address] Dec, [facility] [address] [id number] [address] [place] [address], [place] [address] Nov, [facility] [address] [id number] [address] [place] [address], [place] [address] Nov, [facility] [address] [id number] [address] [place] [address], [place] [address] Nov, [facility] [address] [id number] [address] [place] [address], [place] [address] Nov, [facility] [address] [id number] [address] [place] [address], [place] [address] Nov, [facility] [address] [id number] [address] [place] [address], [place] [address] Nov, [facility] [address] [id number] [address] [place] [address], [place] [address] Nov, [facility] [address] [id number] [address] [place] [address], [place] [address] Nov, [facility] [address] [id number] [address] [place] [address], [place] [address] Nov, [facility] [address] [id number] [address] [place] [address], [place] [address] Nov, [facility] [address] [id number] [facility] [place] [address] Nov, 2013 [facility] [address] [id number] [facility] [place] [address] Nov, 2013 [facility] [address] [id number] [facility] [place] [address] Nov, 2013 [facility] [address] [id number] [address] [place] [address], [place] [address] Nov, [facility] [address] [id number] [address] [place] [address], [place] [address] Nov, [facility] [address] [id number] [address] [place] [address], [place] [address] Oct, [facility] [address] [id number] [address] [place] [address], [place] [address] Oct, [facility] [address] [id number] [address] [place] [address], [place] [address] Oct, [facility] [address] [id number] [address] [place] [address], [place] [address] Oct, [facility] [address] [id number] [address] [place] [address], [place] [address] Oct, [facility] [address] [id number] [address] [place] [address], [place] [address] Oct, [facility] [address] [id number] [address] [place] [address], [place] [address] Oct, [facility] [address] [id number] [address] [place] [address], [place] [address] Oct, [facility] [address] [id number] [address] [place] [address], [place] [address] Oct, [facility] [address] [id number] [address] [place] [address], [place] [address] Oct, [facility] [address] [id number] [address] [place] [address], [place] [address] Oct, [facility] [address] [id number] [address] [place] [address], [place] [address] Oct, [facility] [address] [id number] [address] [place] [address], [place] [address] Oct, [facility] [address] [id number] [address] [place] [address], [place] [address] Oct, [facility] [address] [id number] [address] [place] [address], [place] [address] September, [facility] [address] [id number] [address] [place] [address], [place] [address] September, [facility] [address] [id number] [address] [place] [address], [place] [address] September, [facility] [address] [id number] [address] [place] [address], [place] [address] September, [facility] [address] [id number] [address] [place] [address], [place] [address] September, [facility] [address] [id number] [address] [place] [address], [place] [address] September, [facility] [address] [id number] [address] [place] [address], [place] [address] September, [facility] [address] [id number] [address] [place] [address], [place] [address] September, [facility] [address] [id number] [address] [place] [address], [place] [address] September, [facility] [address] [id number] [address] [place] [address], [place] [address] September, [facility] [address] [id number] [address] [place] [address], [place] [address] September, [facility] [address] [id number] [address] [place] [address], [place] [address] September, [facility] [address] [id number] [address] [place] [address], [place] [address] September, [facility] [address] [id number] [facility] [place] [place] [address] Aug, [facility] [address] [id number] [address] [place] [address], [place] [address] Aug, [facility] [address] [id number] [address] [place] [address], [place] [address] Aug, [facility] [address] [id number] [address] [place] [address], [place] [address] Aug, [facility] [address] [id number] [address] [place] [address], [place] [address] Aug, [facility] [address] [id number] [address] [place] [address], [place] [address] Aug, [facility] [address] [id number] [address] [place] [address], [place] [address] Aug, [facility] [address] [id number] [address] [place] [address], [place] [address] Aug, [facility] [address] [id number] [address] [place] [address], [place] [address] Aug, [facility] [address] [id number] [address] [place] [address], [place] [address] Aug, [facility] [address] [id number] [address] [place] [address], [place] [address] Jul, [facility] [address] [id number] [address] [place] [address], [place] [address] Jul, [facility] [address] [id number] [address] [place] [address], [place] [address] Jul, [facility] [address] [id number] [address] [place] [address], [place] [address] Jul, [facility] [address] [id number] [address] [place] [address], [place] [address] 13 Jul, 2013 [facility] [address] [id number] [facility] [place] [place] [address] 13 Jul, 2013 [facility] [address] [id number] [address] [place] [address], [place] [address] Jul, [facility] [address] [id number] [facility] [place] [address] Jul, [facility] [address] [id number] [address] [place] [address], [place] [address] Jun, [facility] [address] [id number] [address] [place] [address], [place] [address] Jun, [facility] [address] [id number] [address] [place] [address], [place] [address] 14 Jun, 2013 [facility] [address] [id number] [address] [place] [address], [place] [address] Jun, [facility] [address] [id number] [address] [place] [address], [place] [address] Jun, [facility] [address] [id number] [address] [place] [address], [place] [address] Jun, [facility] [address] [id number] [address] [place] [address], [place] [address] Jun, [facility] [address] [id number] [address] [place] [address], [place] [address] Jun, [facility] [address] [id number] [address] [place] [address], [place] [address] Jun, 2013 [facility] [address] [id number] [address] [place] [address], [place] [address] Jun, [facility] [address] [id number] [address] [place] [address], [place] [address] Jun, [facility] [address] [id number] [address] [place] [address], [place] [address] Jun, 2013 [facility] [address] [id number] [address] [place] [address], [place] [address] 02 Jun, 2013 [facility] [address] [id number] [address] [place] [address], [place] [address] Jun, [facility] [address] [id number] [address] [place] [address], [place] [address] May, [facility] [address] [id number] [address] [place] [address], [place] [address] May, [facility] [address] [id number] [address] [place] [address], [place] [address] May, [facility] [address] [id number] [address] [place] [address], [place] [address] May, [facility] [address] [id number] [address] [place] [address], [place] [address] May, [facility] [address] [id number] [address] [place] [address], [place] [address] May, [facility] [address] [id number] [address] [place] [address], [place] [address] May, [facility] [address] [id number] [address] [place] [address], [place] [address] May, [facility] [address] [id number] [address] [place] [address], [place] [address] May, [facility] [address] [id number] [address] [place] [address], [place] [address] May, [facility] [address] [id number] [address] [place] [address], [place] [address] May, [facility] [address] [id number] [address] [place] [address], [place] [address] May, [facility] [address] [id number] [address] [place] [address], [place] [address] May, [facility] [address] [id number] [address] [place] [address], [place] [address] 15 May, 2013 [facility] [address] [id number] [address] [place] [address], [place] [address] May, [facility] [address] [id number] [address] [place] [address], [place] [address] May, [facility] [address] [id number] [address] [place] [address], [place] [address] May, [facility] [address] [id number] [address] [place] [address], [place] [address] May, [facility] [address] [id number] [address] [place] [address], [place] [address] May, [facility] [address] [id number] [address] [place] [address], [place] [address] May, [facility] [address] [id number] [address] [place] [address], [place] [address] Apr, [facility] [address] [id number] [address] [place] [address], [place] [address] 31 Apr, 2013 [facility] [address] [id number] [address] [place] [address], [place] [address] Apr, [facility] [address] [id number] [address] [place] [address], [place] [address] Apr, [facility] [address] [id number] [address] [place] [address], [place] [address] 19 Apr, 2013 [facility] [address] [id number] [address] [place] [address], [place] [address] 19 Apr, 2013 [facility] [address] [id number] [address] [place] [address], [place] [address] 18 Apr, 2013 [facility] [address] [id number] [address] [place] [address], [place] [address] 18 Apr, 2013 [facility] [address] [id number] [address] [place] [address], [place] [address] 17 Apr, 2013 [facility] [address] [id number] [address] [place] [address] 17 Apr, 2013 [facility] [address] [id number] [address] [place] [address], [place] [address] Apr, [facility] [address] [id number] [address] [place] [address], [place] [address] Apr, [facility] [address] [id number] [address] [place] [address], [place] [address] Apr, [facility] [address] [id number] [address] [place] [address], [place] [address] Apr, [facility] [address] [id number] [address] [place] [address], [place] [address] Apr, [facility] [address] [id number] [address] [place] [address], [place] [address] Apr, [facility] [address] [id number] [address] [place] [address], [place] [address] Apr, [facility] [address] [id number] [address] [place] [address], [place] [address] Apr, [facility] [address] [id number] [address] [place] [address], [place] [address] Mar, [facility] [address] [id number] [address] [place] [address], [place] [address] 27 Mar, 2013 [facility] [address] [id number] [address] [place] [id number] 14 Mar, 2013 [facility] [address] [id number] [address] [place] [address] 14 Mar, 2013 [facility] [address] [id number] [address] [place] [address], [place] [address] 11 Mar, 2013 [facility] [address] [id number] [address] [place] [address], [place] [address] Mar, [facility] [address] [id number] [address] [place] [address], [place] [address] Mar, [facility] [address] [id number] [address] [place] [address], [place] [address] Mar, [facility] [address] [id number] [address] [place] [address], [place] [address] Mar, [facility] [address] [id number] [address] [place] [address], [place] [address] Mar, [facility] [address] [id number] [address] [place] [address], [place] [address] Mar, [facility] [address] [id number] [address] [place] [address], [place] [address] Feb, [facility] [address] [id number] [address] [place] [address], [place] [address] Feb, [facility] [address] [id number] [address] [place] [address], [place] [address] Feb, [facility] [address] [id number] [address] [place] [address], [place] [address] Feb, [facility] [address] [id number] [address] [place] [address], [place] [address] Feb, [facility] [address] [id number] [address] [place] [address], [place] [address] Dec, [facility] [address] [id number] [address] [place] [address], [place] [address] Dec, [facility] [address] [id number] [address] [place] [address], [place] [address] Dec, [facility] [address] [id number] [address] [place] [address], [place] [address] Dec, [facility] [address] [id number] [address] [place] [address], [place] [address] Nov, [facility] [address] [id number] [address] [place] [address], [place] [address] Nov, [facility] [address] [id number] [address] [place] [address], [place] [address] Nov, [facility] [address] [id number] [address] [place] [address], [place] [address] Nov, [facility] [address] [id number] [address] [place] [address], [place] [address] Nov, [facility] [address] [id number] [address] [place] [address], [place] [address] Nov, [facility] [address] [id number] [address] [place] [address], [place] [address] Oct, [facility] [address] [id number] [address] [place] [address], [place] [address] Oct, [facility] [address] [id number] [address] [place] [address], [place] [address] Oct, [facility] [address] [id number] [address] [place] [address], [place] [address] Oct, [facility] [address] [id number] [address] [place] [address], [place] [address] September, [facility] [address] [id number] [address] [place] [address], [place] [address] September, [facility] [address] [id number] [address] [place] [address], [place] [address] September, [facility] [address] [id number] [address] [place] [address], [place] [address] September, [facility] [address] [id number] [address] [place] [address], [place] [address] September, [facility] [address] [id number] [address] [place] [address], [place] [address] September, [facility] [address] [id number] [address] [place] [address], [place] [address] September, [facility] [address] [id number] [address] [place] [address], [place] [address] September, [facility] [address] [id number] [address] [place] [address], [place] [address] Aug, [facility] [address] [id number] [address] [place] [address], [place] [address] 08 Aug, 2012 [facility] [address] [id number] [address] [place] [address], [place] [address] Jul, [facility] [address] [id number] [address] [place] [address], [place] [address] Jun, [facility] [address] [id number] [address] [place] [address], [place] [address] 24 May, 2012 [facility] [address] [id number] [address] [place] [address], [place] [address] May, [facility] [address] [id number] [address] [place] [address], [place] [address] 14 May, 2012 [facility] [address] [id number] [address] [place] [address], [place] [address] May, [facility] [address] [id number] [address] [place] [address], [place] [address] 28 Apr, 2012 [facility] [address] [id number] [address] [place] [address], [place] [address] 28 Apr, 2012 [facility] [address] [id number] [address] [place] [address], [place] [address] 28 Apr, 2012 [facility] [address] [id number] [address] [place] [address], [place] [address] 28 Apr, 2012 [facility] [address] [id number] [address] [place] [address], [place] [address] 22 Apr, 2012 [facility] [address] [id number] [address] [place] [address], [place] [address] 22 Apr, 2012 [facility] [address] [id number] [address] [place] [address], [place] [address] 17 Apr, 2012 [facility] [address] [id number] [address] [place] [address], [place] [address] 14 Apr, 2012 [facility] [address] [id number] [address] [place] [address], [place] [address] 14 Apr, 2012 [facility] [address] [id number] [address] [place] [address], [place] [address] 30 Mar, 2012 [facility] [address] [id number] [address] [place] [address], [place] [address] 30 Mar, 2012 [facility] [address] [id number] [address] [place] [address], [place] [address] 27 Mar, 2012 [facility] [address] [id number] [address] [place] [address], [place] [address] 27 Mar, 2012 [facility] [address] [id number] [address] [place] [address], [place] [address] 16 Mar, 2012 [facility] [address] [id number] [address] [place] [address], [place] [address] 16 Mar, 2012 [facility] [address] [id number] [address] [place] [address], [place] [address] 16 Mar, 2012 [facility] [address] [id number] [address] [place] [address], [place] [address] 16 Mar, 2012 [facility] [address] [id number] [address] [place] [address], [place] [address] 16 Mar, 2012 [facility] [address] [id number] [address] [place] [address], [place] [address] 16 Mar, 2012 [facility] [address] [id number] [address] [place] [address], [place] [address] 14 Mar, 2012 [facility] [address] [id number] [address] [place] [address], [place] [address] 14 Mar, 2012 [facility] [address] [id number] [address] [place] [address], [place] [address] 13 Mar, 2012 [facility] [address] [id number] [address] [place] [address], [place] [address] 13 Mar, 2012 [facility] [address] [id number] [address] [place] [address], [place] [address] Mar, [facility] [address] [id number] [address] [place] [address], [place] [address] Mar, [facility] [address] [address] [id number] [address] [place] [address], [place] [address] Mar, [facility] [address] [id number] [address] [place] [address], [place] [address] Mar, [facility] [address] [id number] [address] [place] [address], [place] [address] Mar, [facility] [address] [id number] [address] [place] [address], [place] [address] Feb, [facility] [address] [id number] [address] [place] [address], [place] [address] Feb, [facility] [address] [id number] [address] [place] [address], [place] [address] Feb, [facility] [address] [id number] [address] [place] [address], [place] [address] Feb, [facility] [address] [id number] [address] [place] [address], [place] [address] Jan, [facility] [address] [id number] [address] [place] [address], [place] [address] Jan, [facility] [address] [id number] [address] [place] [address], [place] [address] Dec, [facility] [address] [id number] [address] [place] [address], [place] [address] Dec, [facility] [address] [id number] [address] [place] [address], [place] [address] Dec, [facility] [address] [id number] [address] [place] [address], [place] [address] Nov, [facility] [address] [id number] [address] [place] [address], [place] [address] Nov, [facility] [address] [id number] [address] [place] [address], [place] [address] Oct, [facility] [address] [id number] [address] [place] [address], [place] [address] Oct, [facility] [address] [id number] [address] [place] [address], [place] [address] September, [facility] [address] [id number] [address] [place] [address], [place] [address] September, [facility] [address] [id number] [address] [place] [address], [place] [address] September, [facility] [address] [id number] [address] [place] [address], [place] [address] September, [facility] [address] [id number] [address] [place] [address], [place] [address] Aug, [facility] [address] [id number] [address] [place] [address], [place] [address] Jul, [facility] [address] [id number] [address] [place] [address], [place] [address] Jul, [facility] [address] [id number] [address] [place] [address], [place] [address] Jun, [facility] [address] [id number] [address] [place] [address], [place] [address] Jun, [facility] [address] [id number] [address] [place] [address], [place] [address] Jun, [facility] [address] [id number] [address] [place] [address], [place] [address] May, [facility] [address] [id number] [address] [place] [address], [place] [address] May, [facility] [address] [id number] [address] [place] [address], [place] [address] May, [facility] [address] [id number] [address] [place] [address], [place] [address] May, [facility] [address] [id number] [address] [place] [address], [place] [address] Apr, [facility] [address] [id number] [address] [place] [address], [place] [address] Apr, [facility] [address] [id number] [address] [place] [address], [place] [address] Apr, [facility] [address] [id number] [address] [place] [address], [place] [address] Mar, [facility] [address] [id number] [address] [place] [address], [place] [address] Mar, [facility] [address] [id number] [address] [place] [address], [place] [address] Mar, [facility] [address] [id number] [address] [place] [address], [place] [address] Mar, [facility] [address] [id number] [address] [place] [address], [place] [address] Mar, [facility] [address] [id number] [address] [place] [address], [place] [address] Feb, [facility] [address] [id number] [address] [place] [address], [place] [address] Feb, [facility] [address] [id number] [address] [place] [address], [place] [address] Feb, [facility] [address] [id number] [address] [place] [id number] Feb, [facility] [address] [id number] [address] [place] [address], [place] [address] Feb, [facility] [address] [id number] [address] [place] [address], [place] [address] Feb, [facility] [address] [id number] [address] [place] [address], [place] [address] Feb, [facility] [address] [id number] [address] [place] [address] [place] [address] 28 Apr, 2010 [facility] [address] [id number] [address] [place] [address], [place] [address] 23 Apr, 2010 [facility] [address] [id number] [address] [place] [address], [place] [address] 15 Apr, 2010 [facility] [address] [id number] [address] [place] [address], [place] [address] 15 Apr, 2010 [facility] [address] [id number] [address] [place] [address], [place] [address] 02 Apr, 2010 [facility] [address] [id number] [address] [place] [address], [place] [address] 02 Apr, 2010 [facility] [address] [id number] [address] [place] [address], [place] [address] 18 Mar, 2010 [facility] [address] [id number] [address] [place] [address], [place] [address] 18 Mar, 2010 [facility] [address] [id number] [address] [place] [address], [place] [address] 17 Mar, 2010 [facility] [address] [id number] [address] [place] [address], [place] [address] 16 Mar, 2010 [facility] [address] [id number] [address] [place] [address], [place] [address] 10 Mar, 2010 [facility] [address] [id number] [address] [place] [address], [place] [address] 10 Mar, 2010 [facility] [address] [id number] [address] [place] [address], [place] [address] Mar, [facility] [address] [id number] [address] [place] [address], [place] [address] Mar, [facility] [address] [id number] [address] [place] [address], [place] [address] 22 Feb, 2010 [facility] [address] [id number] [address] [place] [id number] Feb, [facility] [address] [id number] [address] [place] [id number] Dec, [facility] [address] [id number] [address] [place] [id number] Jun, [facility] [address] [id number] [address] [place] [id number] Jun, [facility] [address] [id number] [address] [place] [id number] May, [facility] [address] [id number] [address] [place] [id number] Feb, [facility] [address] [id number] [address] [place] [id number] Feb, [facility] [address] [id number] [address] [place] [id number] Feb, [facility] [address] [id number] [address] [place] [id number] Feb, [facility] [address] [id number] [address] [place] [phone] Feb, [facility] [address] [id number] [address] [place] [id number] Feb, [facility] [address] [id number] [address] [place] [phone] Feb, [facility] [address] [id number] [address] [place] [id number] Jul, [facility] [address] [id number] [address] [place] [id number] Jun, IMMUNIZATIONS No Known Immunizations SOCIAL HISTORY [...] 08/2014 Hospitalization History Rt hand post op infection-[facility] 7 Hospitalization History cellulitus Right elbow-[facility] 12/09/16
--- OUTSIDE RECORDS SUMMARY | 2019-10-27 22:11 | XMS REPORT ---
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 [facility] [id number] [address] [place] [address] Oct, [facility] [address] [place] [id number] [address] [place] [phone] Oct, Major depressive disorder, r ecurrent episode, unspecified 296.30 and Anxiety state 300.00 [facility] [address] [facility] [id number] [address] [place] [address] Oct, Spider bite 989.5 [facility] [address] [facility] [id number] [address] [place] [phone] Oct, [facility] [address] 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.35 [facility] [address] [id number] [address] [place] [phone] September, Cellulitis 682.9 [facility] [address] [id number] [address] [place] [phone] September, [facility] [address] [id number] [address] [place] [phone] September, [facility] [address] [id number] [address] [place] [phone] Aug, [facility] [address] [id number] [address] [place] [phone] Aug, [facility] [address] [id number] [address] [place] [phone] Aug, [facility] [address] [id number] [address] [place] [phone] Aug, [facility] [address] [id number] [address] [place] [phone] Jul, [facility] [address] [id number] [address] [place] [phone] Jul, [facility] [address] [id number] [address] [place] [phone] Jul, [facility] [address] [id number] [address] [place] [phone] Jul, [facility] [address] [id number] [address] [place] [phone] Jul, [facility] [address] [id number] [address] [place] [address], [place] [address] Jul, [facility] [address] [id number] [address] [place] [address], [place] [address] Jul, [facility] [address] [id number] [address] [place] [address], [place] [address] Jul, [facility] [address] [id number] [address] [place] [address], [place] [address] Jul, [facility] [address] [id number] [address] [place] [address], [place] [address] Jul, [facility] [address] [id number] [address] [place] [address], [place] [address] 05 Jul, 2014 [facility] [address] [id number] [address] [place] [address], [place] [address] Jul, [facility] [address] [id number] [address] [place] [address], [place] [address] Jul, [facility] [address] [id number] [address] [place] [address], [place] [address] Jul, [facility] [address] [id number] [address] [place] [address], [place] [address] Jul, [facility] [address] [id number] [address] [place] [address], [place] [address] Jun, [facility] [address] [id number] [address] [place] [address], [place] [address] Jun, 2014 [facility] [address] [id number] [address] [place] [address], [place] [address] Jun, 2014 [facility] [address] [id number] [address] [place] [address], [place] [address] Jun, 2014 [facility] [address] [id number] [address] [place] [address], [place] [address] Jun, 2014 [facility] [address] [id number] [address] [place] [address], [place] [address] Jun, 2014 [facility] [address] [id number] [address] [place] [address], [place] [address] Jun, 2014 [facility] [address] [id number] [address] [place] [address], [place] [address] Jun, 2014 [facility] [address] [id number] [address] [place] [address], [place] [address] Jun, 2014 [facility] [address] [id number] [address] [place] [address], [place] [address] Jun, 2014 [facility] [address] [id number] [address] [place] [address], [place] [address] Jun, 2014 [facility] [address] [id number] [address] [place] [address], [place] [address] 17 Jun, 2014 [facility] [address] [id number] [address] [place] [address], [place] [address] Jun, 2014 [facility] [address] [id number] [address] [place] [address], [place] [address] Jun, 2014 [facility] [address] [id number] [address] [place] [address], [place] [address] Jun, 2014 [facility] [address] [id number] [address] [place] [address], [place] [address] 10 Jun, 2014 [facility] [address] [id number] [address] [place] [address], [place] [address] Jun, 2014 [facility] [address] [id number] [address] [place] [address], [place] [address] Jun, 2014 [facility] [address] [id number] [address] [place] [address], [place] [address] Jun, 2014 [facility] [address] [id number] [address] [place] [address], [place] [address] 06 Jun, 2014 [facility] [address] [id number] [address] [place] [address], [place] [address] Jun, [facility] [address] [id number] [address] [place] [address], [place] [address] Jun, [facility] [address] [id number] [address] [place] [address], [place] [address] Jun, [facility] [address] [id number] [address] [place] [address], [place] [address] Jun, [facility] [address] [id number] [address] [place] [address], [place] [address] Jun, [facility] [address] [id number] [address] [place] [address], [place] [address] May, [facility] [address] [id number] [address] [place] [address], [place] [address] May, [facility] [address] [id number] [address] [place] [address], [place] [address] May, [facility] [address] [id number] [address] [place] [address], [place] [address] May, [facility] [address] [id number] [address] [place] [address], [place] [address] May, [facility] [address] [id number] [address] [place] [address], [place] [address] May, [facility] [address] [id number] [address] [place] [address], [place] [address] May, [facility] [address] [id number] [address] [place] [address] May, [facility] [address] [id number] [address] [place] [address], [place] [address] May, [facility] [address] [id number] [address] [place] [address], [place] [address] May, [facility] [address] [id number] [address] [place] [address], [place] [address] May, [facility] [address] [id number] [address] [place] [address], [place] [address] May, [facility] [address] [id number] [address] [place] [address], [place] [address] May, [facility] [address] [id number] [address] [place] [address], [place] [address] May, [facility] [address] [id number] [address] [place] [address], [place] [address] May, [facility] [address] [id number] [address] [place] [address], [place] [address] May, [facility] [address] [id number] [address] [place] [address], [place] [address] May, [facility] [address] [id number] [address] [place] [address], [place] [address] Apr, [facility] [address] [id number] [address] [place] [address], [place] [address] Apr, [facility] [address] [id number] [address] [place] [address], [place] [address] Apr, [facility] [address] [id number] [address] [place] [address], [place] [address] Apr, [facility] [address] [id number] [address] [place] [address], [place] [address] Mar, [facility] [address] [id number] [address] [place] [address], [place] [address] Mar, [facility] [address] [id number] [address] [place] [address], [place] [address] Mar, [facility] [address] [id number] [address] [place] [address], [place] [address] Mar, [facility] [address] [id number] [address] [place] [address], [place] [address] Mar, [facility] [address] [id number] [address] [place] [address], [place] [address] Mar, [facility] [address] [id number] [address] [place] [address], [place] [address] Feb, [facility] [address] [id number] [address] [place] [address], [place] [address] Feb, [facility] [address] [id number] [address] [place] [address], [place] [address] 18 Jan, 2014 [facility] [address] [id number] [address] [place] [address], [place] [address] Jan, [facility] [address] [id number] [address] [place] [address], [place] [address] Jan, [facility] [address] [id number] [address] [place] [address], [place] [address] Jan, [facility] [address] [id number] [address] [place] [address], [place] [address] Jan, [facility] [address] [id number] [address] [place] [address], [place] [address] Jan, [facility] [address] [id number] [address] [place] [address], [place] [id number] Jan, [facility] [address] [id number] [address] [place] [address], [place] [address] Jan, [facility] [address] [id number] [address] [place] [address], [place] [address] Jan, [facility] [address] [id number] [address] [place] [address], [place] [address] Jan, [facility] [address] [id number] [address] [place] [address], [place] [address] Dec, [facility] [address] [id number] [address] [place] [address], [place] [address] Dec, [facility] [address] [id number] [address] [place] [address], [place] [address] Dec, [facility] [address] [id number] [address] [place] [address], [place] [address] Dec, [facility] [address] [id number] [address] [place] [address], [place] [address] Dec, [facility] [address] [id number] [address] [place] [address], [place] [address] Dec, [facility] [address] [id number] [address] [place] [address], [place] [address] Dec, [facility] [address] [id number] [address] [place] [address], [place] [address] Dec, [facility] [address] [id number] [address] [place] [address], [place] [address] Dec, [facility] [address] [id number] [address] [place] [address], [place] [address] Nov, [facility] [address] [id number] [address] [place] [address], [place] [address] Nov, [facility] [address] [id number] [address] [place] [address], [place] [address] Nov, [facility] [address] [id number] [address] [place] [address], [place] [address] Nov, [facility] [address] [id number] [address] [place] [address], [place] [address] Nov, [facility] [address] [id number] [address] [place] [address], [place] [address] Nov, [facility] [address] [id number] [address] [place] [address], [place] [address] Nov, [facility] [address] [id number] [address] [place] [address], [place] [address] Nov, [facility] [address] [id number] [address] [place] [address], [place] [address] Nov, [facility] [address] [id number] [address] [place] [address], [place] [address] Nov, [facility] [address] [id number] [facility] [address] Nov, 2013 [facility] [address] [id number] [facility] [address] Nov, 2013 [facility] [address] [id number] [facility] [address] Nov, 2013 [facility] [address] [id number] [address] [place] [address], [place] [address] Nov, [facility] [address] [id number] [address] [place] [address], [place] [address] Nov, [facility] [address] [id number] [address] [place] [address], [place] [address] Oct, [facility] [address] [id number] [address] [place] [address], [place] [address] Oct, [facility] [address] [id number] [address] [place] [address], [place] [address] Oct, [facility] [address] [id number] [address] [place] [address], [place] [address] Oct, [facility] [address] [id number] [address] [place] [address], [place] [address] Oct, [facility] [address] [id number] [address] [place] [address], [place] [address] Oct, [facility] [address] [id number] [address] [place] [address], [place] [address] Oct, [facility] [address] [id number] [address] [place] [address], [place] [address] Oct, [facility] [address] [id number] [address] [place] [address], [place] [address] Oct, [facility] [address] [id number] [address] [place] [address], [place] [address] Oct, [facility] [address] [id number] [address] [place] [address], [place] [address] Oct, [facility] [address] [id number] [address] [place] [address], [place] [address] Oct, [facility] [address] [id number] [address] [place] [address], [place] [address] Oct, [facility] [address] [id number] [address] [place] [address], [place] [address] Oct, [facility] [address] [id number] [address] [place] [address], [place] [address] September, [facility] [address] [id number] [address] [place] [address], [place] [address] September, [facility] [address] [id number] [address] [place] [address], [place] [address] September, [facility] [address] [id number] [address] [place] [address], [place] [address] September, [facility] [address] [id number] [address] [place] [address], [place] [address] September, [facility] [address] [id number] [address] [place] [address], [place] [address] September, [facility] [address] [id number] [address] [place] [address], [place] [address] September, [facility] [address] [id number] [address] [place] [address], [place] [address] September, [facility] [address] [id number] [address] [place] [address], [place] [address] September, [facility] [address] [id number] [address] [place] [address], [place] [address] September, [facility] [address] [id number] [address] [place] [address], [place] [address] September, [facility] [address] [id number] [address] [place] [address], [place] [address] September, [facility] [address] [id number] [address] [place] [address], [place] [address] September, [facility] [address] [id number] [facility] [address] Aug, [facility] [address] [id number] [address] [place] [address], [place] [address] Aug, [facility] [address] [id number] [address] [place] [address], [place] [address] Aug, [facility] [address] [id number] [address] [place] [address], [place] [address] Aug, [facility] [address] [id number] [address] [place] [address], [place] [address] Aug, [facility] [address] [id number] [address] [place] [address], [place] [address] Aug, [facility] [address] [id number] [address] [place] [address], [place] [address] Aug, [facility] [address] [id number] [address] [place] [address], [place] [address] Aug, [facility] [address] [id number] [address] [place] [address], [place] [address] Aug, [facility] [address] [id number] [address] [place] [address], [place] [address] Aug, [facility] [address] [id number] [address] [place] [address], [place] [address] Jul, [facility] [address] [id number] [address] [place] [address], [place] [address] Jul, [facility] [address] [id number] [address] [place] [address], [place] [address] Jul, [facility] [address] [id number] [address] [place] [address], [place] [address] Jul, [facility] [address] [id number] [address] [place] [address], [place] [address] 13 Jul, 2013 [facility] [address] [id number] [facility] [address] 13 Jul, 2013 [facility] [address] [id number] [address] [place] [address], [place] [address] Jul, [facility] [address] [id number] [facility] [address] Jul, [facility] [address] [id number] [address] [place] [address], [place] [address] Jun, [facility] [address] [id number] [address] [place] [address], [place] [address] Jun, [facility] [address] [id number] [address] [place] [address], [place] [address] 14 Jun, 2013 [facility] [address] [id number] [address] [place] [address], [place] [address] Jun, [facility] [address] [id number] [address] [place] [address], [place] [address] Jun, [facility] [address] [id number] [address] [place] [address], [place] [address] Jun, [facility] [address] [id number] [address] [place] [address], [place] [address] Jun, [facility] [address] [id number] [address] [place] [address], [place] [address] Jun, [facility] [address] [id number] [address] [place] [address], [place] [address] Jun, 2013 [facility] [address] [id number] [address] [place] [address], [place] [address] Jun, [facility] [address] [id number] [address] [place] [address], [place] [address] Jun, [facility] [address] [id number] [address] [place] [address], [place] [address] Jun, 2013 [facility] [address] [id number] [address] [place] [address], [place] [address] 02 Jun, 2013 [facility] [address] [id number] [address] [place] [address], [place] [address] Jun, [facility] [address] [id number] [address] [place] [address], [place] [address] May, [facility] [address] [id number] [address] [place] [address], [place] [address] May, [facility] [address] [id number] [address] [place] [address], [place] [address] May, [facility] [address] [id number] [address] [place] [address], [place] [address] May, [facility] [address] [id number] [address] [place] [address], [place] [address] May, [facility] [address] [id number] [address] [place] [address], [place] [address] May, [facility] [address] [id number] [address] [place] [address], [place] [address] May, [facility] [address] [id number] [address] [place] [address], [place] [address] May, [facility] [address] [id number] [address] [place] [address], [place] [address] May, [facility] [address] [id number] [address] [place] [address], [place] [address] May, [facility] [address] [id number] [address] [place] [address], [place] [address] May, [facility] [address] [id number] [address] [place] [address], [place] [address] May, [facility] [address] [id number] [address] [place] [address], [place] [address] May, [facility] [address] [id number] [address] [place] [address], [place] [address] 15 May, 2013 [facility] [address] [id number] [address] [place] [address], [place] [address] May, [facility] [address] [id number] [address] [place] [address], [place] [address] May, [facility] [address] [id number] [address] [place] [address], [place] [address] May, [facility] [address] [id number] [address] [place] [address], [place] [address] May, [facility] [address] [id number] [address] [place] [address], [place] [address] May, [facility] [address] [id number] [address] [place] [address], [place] [address] May, [facility] [address] [id number] [address] [place] [address], [place] [address] Apr, [facility] [address] [id number] [address] [place] [address], [place] [address] 31 Apr, 2013 [facility] [address] [id number] [address] [place] [address], [place] [address] Apr, [facility] [address] [id number] [address] [place] [address], [place] [address] Apr, [facility] [address] [id number] [address] [place] [address], [place] [address] 19 Apr, 2013 [facility] [address] [id number] [address] [place] [address], [place] [address] 19 Apr, 2013 [facility] [address] [id number] [address] [place] [address], [place] [address] 18 Apr, 2013 [facility] [address] [id number] [address] [place] [address], [place] [address] 18 Apr, 2013 [facility] [address] [id number] [address] [place] [address], [place] [address] 17 Apr, 2013 [facility] [address] [id number] [address] [place] [address] 17 Apr, 2013 [facility] [address] [id number] [address] [place] [address], [place] [address] Apr, [facility] [address] [id number] [address] [place] [address], [place] [address] Apr, [facility] [address] [id number] [address] [place] [address], [place] [address] Apr, [facility] [address] [id number] [address] [place] [address], [place] [address] Apr, [facility] [address] [id number] [address] [place] [address], [place] [address] Apr, [facility] [address] [id number] [address] [place] [address], [place] [address] Apr, [facility] [address] [id number] [address] [place] [address], [place] [address] Apr, [facility] [address] [id number] [address] [place] [address], [place] [address] Apr, [facility] [address] [id number] [address] [place] [address], [place] [address] Mar, [facility] [address] [id number] [address] [place] [address], [place] [address] 27 Mar, 2013 [facility] [address] [id number] [address] [place] [address] 14 Mar, 2013 [facility] [address] [id number] [address] [place] [address] 14 Mar, 2013 [facility] [address] [id number] [address] [place] [address], [place] [address] 11 Mar, 2013 [facility] [address] [id number] [address] [place] [address], [place] [address] Mar, [facility] [address] [id number] [address] [place] [address], [place] [address] Mar, [facility] [address] [id number] [address] [place] [address], [place] [address] Mar, [facility] [address] [id number] [address] [place] [address], [place] [address] Mar, [facility] [address] [id number] [address] [place] [address], [place] [address] Mar, [facility] [address] [id number] [address] [place] [address], [place] [address] Mar, [facility] [address] [id number] [address] [place] [address], [place] [address] Feb, [facility] [address] [id number] [address] [place] [address], [place] [address] Feb, [facility] [address] [id number] [address] [place] [address], [place] [address] Feb, [facility] [address] [id number] [address] [place] [address], [place] [address] Feb, [facility] [address] [id number] [address] [place] [address], [place] [address] Feb, [facility] [address] [id number] [address] [place] [address], [place] [address] Dec, [facility] [address] [id number] [address] [place] [address], [place] [address] Dec, [facility] [address] [id number] [address] [place] [address], [place] [address] Dec, [facility] [address] [id number] [address] [place] [address], [place] [address] Dec, [facility] [address] [id number] [address] [place] [address], [place] [address] Nov, [facility] [address] [id number] [address] [place] [address], [place] [address] Nov, [facility] [address] [id number] [address] [place] [address], [place] [address] Nov, [facility] [address] [id number] [address] [place] [address], [place] [address] Nov, [facility] [address] [id number] [address] [place] [address], [place] [address] Nov, [facility] [address] [id number] [address] [place] [address], [place] [address] Nov, [facility] [address] [id number] [address] [place] [address], [place] [address] Oct, [facility] [address] [id number] [address] [place] [address], [place] [address] Oct, [facility] [address] [id number] [address] [place] [address], [place] [address] Oct, [facility] [address] [id number] [address] [place] [address], [place] [address] Oct, [facility] [address] [id number] [address] [place] [address], [place] [address] September, [facility] [address] [id number] [address] [place] [address], [place] [address] September, [facility] [address] [id number] [address] [place] [address], [place] [address] September, [facility] [address] [id number] [address] [place] [address], [place] [address] September, [facility] [address] [id number] [address] [place] [address], [place] [address] September, [facility] [address] [id number] [address] [place] [address], [place] [address] September, [facility] [address] [id number] [address] [place] [address], [place] [address] September, [facility] [address] [id number] [address] [place] [address], [place] [address] September, [facility] [address] [id number] [address] [place] [address], [place] [address] Aug, [facility] [address] [id number] [address] [place] [address], [place] [address] 08 Aug, 2012 [facility] [address] [id number] [address] [place] [address], [place] [address] Jul, [facility] [address] [id number] [address] [place] [address], [place] [address] Jun, [facility] [address] [id number] [address] [place] [address], [place] [address] 24 May, 2012 [facility] [address] [id number] [address] [place] [address], [place] [address] May, [facility] [address] [id number] [address] [place] [address], [place] [address] 14 May, 2012 [facility] [address] [id number] [address] [place] [address], [place] [address] May, [facility] [address] [id number] [address] [place] [address], [place] [address] 28 Apr, 2012 [facility] [address] [id number] [address] [place] [address], [place] [address] 28 Apr, 2012 [facility] [address] [id number] [address] [place] [address], [place] [address] 28 Apr, 2012 [facility] [address] [id number] [address] [place] [address], [place] [address] 28 Apr, 2012 [facility] [address] [id number] [address] [place] [address], [place] [address] 22 Apr, 2012 [facility] [address] [id number] [address] [place] [address], [place] [address] 22 Apr, 2012 [facility] [address] [id number] [address] [place] [address], [place] [address] 17 Apr, 2012 [facility] [address] [id number] [address] [place] [address], [place] [address] 14 Apr, 2012 [facility] [address] [id number] [address] [place] [address], [place] [address] 14 Apr, 2012 [facility] [address] [id number] [address] [place] [address], [place] [address] 30 Mar, 2012 [facility] [address] [id number] [address] [place] [address], [place] [address] 30 Mar, 2012 [facility] [address] [id number] [address] [place] [address], [place] [address] 27 Mar, 2012 [facility] [address] [id number] [address] [place] [address], [place] [address] 27 Mar, 2012 [facility] [address] [id number] [address] [place] [address], [place] [address] 16 Mar, 2012 [facility] [address] [id number] [address] [place] [address], [place] [address] 16 Mar, 2012 [facility] [address] [id number] [address] [place] [address], [place] [address] 16 Mar, 2012 [facility] [address] [id number] [address] [place] [address], [place] [address] 16 Mar, 2012 [facility] [address] [id number] [address] [place] [address], [place] [address] 16 Mar, 2012 [facility] [address] [id number] [address] [place] [address], [place] [address] 16 Mar, 2012 [facility] [address] [id number] [address] [place] [address], [place] [address] 14 Mar, 2012 [facility] [address] [id number] [address] [place] [address], [place] [address] 14 Mar, 2012 [facility] [address] [id number] [address] [place] [address], [place] [address] 13 Mar, 2012 [facility] [address] [id number] [address] [place] [address], [place] [address] 13 Mar, 2012 [facility] [address] [id number] [address] [place] [address], [place] [address] Mar, [facility] [address] [id number] [address] [place] [address], [place] [address] Mar, [facility] [address] [id number] [address] [place] [address], [place] [address] Mar, [facility] [address] [id number] [address] [place] [address], [place] [address] Mar, [facility] [address] [id number] [address] [place] [address], [place] [address] Mar, [facility] [address] [id number] [address] [place] [address], [place] [address] Feb, [facility] [address] [id number] [address] [place] [address], [place] [address] Feb, [facility] [address] [id number] [address] [place] [address], [place] [address] Feb, [facility] [address] [id number] [address] [place] [address], [place] [address] Feb, [facility] [address] [id number] [address] [place] [address], [place] [address] Jan, [facility] [address] [id number] [address] [place] [address], [place] [address] Jan, [facility] [address] [id number] [address] [place] [address], [place] [address] Dec, [facility] [address] [id number] [address] [place] [address], [place] [address] Dec, [facility] [address] [id number] [address] [place] [address], [place] [address] Dec, [facility] [address] [id number] [address] [place] [address], [place] [address] Nov, [facility] [address] [id number] [address] [place] [address], [place] [address] Nov, [facility] [address] [id number] [address] [place] [address], [place] [address] Oct, [facility] [address] [id number] [address] [place] [address], [place] [address] Oct, [facility] [address] [id number] [address] [place] [address], [place] [address] September, [facility] [address] [id number] [address] [place] [address] [address] September, [facility] [address] [id number] [address] [place] [address], [place] [address] September, [facility] [address] [id number] [address] [place] [address], [place] [address] September, [facility] [address] [id number] [address] [place] [address], [place] [address] Aug, [facility] [address] [id number] [address] [place] [address], [place] [address] Jul, [facility] [address] [id number] [address] [place] [address], [place] [address] Jul, [facility] [address] [id number] [address] [place] [address], [place] [address] Jun, [facility] [address] [id number] [address] [place] [address], [place] [address] Jun, [facility] [address] [id number] [address] [place] [address], [place] [address] Jun, [facility] [address] [id number] [address] [place] [address], [place] [address] May, [facility] [address] [id number] [address] [place] [address], [place] [address] May, [facility] [address] [id number] [address] [place] [address], [place] [address] May, [facility] [address] [id number] [address] [place] [address], [place] [address] May, [facility] [address] [id number] [address] [place] [address], [place] [address] Apr, [facility] [address] [id number] [address] [place] [address], [place] [address] Apr, [facility] [address] [id number] [address] [place] [address], [place] [address] Apr, [facility] [address] [id number] [address] [place] [address], [place] [address] Mar, [facility] [address] [id number] [address] [place] [address], [place] [address] Mar, [facility] [address] [id number] [address] [place] [address], [place] [address] Mar, [facility] [address] [id number] [address] [place] [address], [place] [address] Mar, [facility] [address] [id number] [address] [place] [address], [place] [address] Mar, [facility] [address] [id number] [address] [place] [address], [place] [address] Feb, [facility] [address] [id number] [address] [place] [address], [place] [address] Feb, [facility] [address] [id number] [address] [place] [address], [place] [address] Feb, [facility] [address] [id number] [address] [place] [address] Feb, [facility] [address] [id number] [address] [place] [address], [place] [address] Feb, [facility] [address] [id number] [address] [place] [address], [place] [address] Feb, [facility] [address] [id number] [address] [place] [address], [place] [address] Feb, [facility] [address] [id number] [address] [place] [address] [place] [address] 28 Apr, 2010 [facility] [address] [id number] [address] [place] [address], [place] [address] 23 Apr, 2010 [facility] [address] [id number] [address] [place] [address], [place] [address] 15 Apr, 2010 [facility] [address] [id number] [address] [place] [address], [place] [address] 15 Apr, 2010 [facility] [address] [id number] [address] [place] [address], [place] [address] 02 Apr, 2010 [facility] [address] [id number] [address] [place] [address], [place] [address] 02 Apr, 2010 [facility] [address] [id number] [address] [place] [address], [place] [address] 18 Mar, 2010 [facility] [address] [id number] [address] [place] [address], [place] [address] 18 Mar, 2010 [facility] [address] [id number] [address] [place] [address], [place] [address] 17 Mar, 2010 [facility] [address] [id number] [address] [place] [address], [place] [address] 16 Mar, 2010 [facility] [address] [id number] [address] [place] [address], [place] [address] 10 Mar, 2010 [facility] [address] [id number] [address] [place] [address], [place] [address] 10 Mar, 2010 [facility] [address] [id number] [address] [place] [address], [place] [address] Mar, [facility] [address] [id number] [address] [place] [address], [place] [address] Mar, [facility] [address] [id number] [address] [place] [address], [place] [address] 22 Feb, 2010 [facility] [address] [id number] [address] [place] [address] Feb, [facility] [address] [id number] [address] [place] [id number] Dec, [facility] [address] [id number] [address] [place] [id number] Jun, [facility] [address] [id number] [address] [place] [id number] Jun, [facility] [address] [id number] [address] [place] [id number] May, [facility] [address] [id number] [address] [place] [address] Feb, [facility] [address] [id number] [address] [place] [address] Feb, [facility] [address] [id number] [address] [place] [id number] Feb, [facility] [address] [id number] [address] [place] [id number] Feb, [facility] [address] [id number] [address] [place] [id number] Feb, [facility] [address] [id number] [address] [place] [id number] Feb, [facility] [address] [id number] [address] [place] [id number] Feb, [facility] [address] [id number] [address] [place] [id number] Jul, [facility] [address] [id number] [address] [place] [id number] Jun, IMMUNIZATIONS No Known Immunizations SOCIAL HISTORY Never Assessed REASON FOR VISIT PLAN OF CARE VITAL SIGNS MEDICATIONS Unknown Medications RESULTS No Results PROCEDURES Procedure Date Ordered Result Body Site COMPUTER DX MAMMOGRAM ADD-ON Jun 11, 2014 INSTRUCTIONS MEDICATIONS ADMINISTERED No Known Medications [...] History Rt hand post op infection-[facility] 7 Hospitalization History cellulitus Right elbow-[facility] 12/09/16
[2019-10-27 22:12] LABS: ALANINE AMINOTRANSFERASE 38 U/L (0-55)
--- OUTSIDE RECORDS SUMMARY | 2019-10-27 22:12 | XMS REPORT ---
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 ecurrent episode, unspecified 296.30 and Anxiety state 300.00 [facility] [address] [id number] [address] [place] [address] Oct, Spider bite 989.5 [facility] [address] [id number] [address] [place] [address] Oct, [facility] [address] [id number] [address] [place] [address] September, Contact dermatitis 692.9 and Sciatica 724.3 [facility] [address] [facility] [id number] [address] [place] [address] September, [facility] [address] [id number] [address] [place] [address] September, Generalized anxiety disorder 300.02 ; Posttraumatic stress disorder 309.81 and Depression, major, recurrent, in partial remission 296.35 [facility] [address] [id number] [address] [place] [address] September, Cellulitis 682.9 [facility] [address] [id number] [address] [place] [address], [place] [address] September, [facility] [address] [id number] [address] [place] [address], [place] [address] September, [facility] [address] [id number] [address] [place] [address], [place] [address] Aug, [facility] [address] [id number] [address] [place] [address], [place] [address] Aug, [facility] [address] [id number] [address] [place] [address], [place] [address] Aug, [facility] [address] [id number] [address] [place] [address], [place] [address] Aug, [facility] [address] [id number] [address] [place] [address], [place] [address] Jul, [facility] [address] [id number] [address] [place] [address], [place] [address] Jul, [facility] [address] [id number] [address] [place] [address], [place] [address] Jul, [facility] [address] [id number] [address] [place] [address], [place] [address] Jul, [facility] [address] [id number] [address] [place] [address], [place] [address] 24 Jul, 2014 [facility] [address] [id number] [address] [place] [address] Jul, [facility] [address] [id number] [address] [place] [address], [place] [address] Jul, [facility] [address] [id number] [address] [place] [address], [place] [address] 19 Jul, 2014 [facility] [address] [id number] [address] [place] [address] Jul, [facility] [address] [id number] [address] [place] [address] 05 Jul, 2014 [facility] [address] [id number] [address] [place] [address], [place] [address] Jul, 2014 [facility] [address] [id number] [address] [place] [address], [place] [address] Jul, 2014 [facility] [address] [id number] [address] [place] [address], [place] [address] Jul, 2014 [facility] [address] [id number] [address] [place] [address], [place] [address] Jul, 2014 [facility] [address] [id number] [address] [place] [address], [place] [address] Jul, [facility] [address] [id number] [address] [place] [address], [place] [address] Jun, [facility] [address] [id number] [address] [place] [address], [place] [address] Jun, 2014 [facility] [address] [id number] [address] [place] [address], [place] [address] Jun, 2014 [facility] [address] [id number] [address] [place] [address], [place] [address] Jun, 2014 [facility] [address] [id number] [address] [place] [address], [place] [address] Jun, [facility] [address] [id number] [address] [place] [address], [place] [address] 24 Jun, 2014 [facility] [address] [id number] [address] [place] [address] Jun, 2014 [facility] [address] [id number] [address] [place] [address], [place] [address] Jun, 2014 [facility] [address] [id number] [address] [place] [address] Jun, 2014 [facility] [address] [id number] [address] [place] [address] Jun, 2014 [facility] [address] [id number] [address] [place] [address], [place] [address] Jun, 2014 [facility] [address] [id number] [address] [place] [address], [place] [address] Jun, 2014 [facility] [address] [id number] [address] [place] [address], [place] [address] Jun, 2014 [facility] [address] [id number] [address] [place] [address], [place] [address] Jun, 2014 [facility] [address] [id number] [address] [place] [address], [place] [address] Jun, 2014 [facility] [address] [id number] [address] [place] [address], [place] [address] Jun, 2014 [facility] [address] [id number] [address] [place] [address], [place] [address] Jun, 2014 [facility] [address] [id number] [address] [place] [address], [place] [address] Jun, 2014 [facility] [address] [id number] [address] [place] [address], [place] [address] Jun, 2014 [facility] [address] [id number] [address] [place] [address], [place] [address] Jun, 2014 [facility] [address] [id number] [address] [place] [address], [place] [address] Jun, 2014 [facility] [address] [id number] [address] [place] [address], [place] [address] Jun, 2014 [facility] [address] [id number] [address] [place] [address], [place] [address] Jun, 2014 [facility] [address] [id number] [address] [place] [address], [place] [address] Jun, 2014 [facility] [address] [id number] [address] [place] [address], [place] [address] 03 Fe2014 [facility] [address] [id number] [address] [place] [address], [place] [address] May, [facility] [address] [id number] [address] [place] [address], [place] [address] May, [facility] [address] [id number] [address] [place] [address], [place] [address] May, [facility] [address] [id number] [address] [place] [address], [place] [address] May, [facility] [address] [id number] [address] [place] [address], [place] [address] May, [facility] [address] [id number] [address] [place] [address], [place] [address] May, [facility] [address] [id number] [address] [place] [address], [place] [address] May, [facility] [address] [id number] [address] [place] [address], [place] [address] May, [facility] [address] [id number] [address] [place] [address], [place] [address] May, [facility] [address] [id number] [address] [place] [address], [place] [address] May, [facility] [address] [id number] [address] [place] [address], [place] [address] May, [facility] [address] [id number] [address] [place] [address], [place] [address] May, [facility] [address] [id number] [address] [place] [address], [place] [address] May, [facility] [address] [id number] [address] [place] [address], [place] [address] May, [facility] [address] [id number] [address] [place] [address], [place] [address] May, [facility] [address] [id number] [address] [place] [address], [place] [address] May, [facility] [address] [id number] [address] [place] [address], [place] [address] May, [facility] [address] [id number] [address] [place] [address], [place] [address] Apr, [facility] [address] [id number] [address] [place] [address], [place] [address] Apr, [facility] [address] [id number] [address] [place] [address], [place] [address] Apr, [facility] [address] [id number] [address] [place] [address], [place] [address] Apr, [facility] [address] [id number] [address] [place] [address], [place] [address] Mar, [facility] [address] [id number] [address] [place] [address], [place] [address] Mar, [facility] [address] [id number] [address] [place] [address], [place] [address] Mar, [facility] [address] [id number] [address] [place] [address], [place] [address] Mar, [facility] [address] [id number] [address] [place] [address], [place] [address] Mar, [facility] [address] [id number] [address] [place] [address], [place] [address] Mar, [facility] [address] [id number] [address] [place] [address], [place] [address] 16 Feb, 2014 [facility] [address] [id number] [address] [place] [address], [place] [address] Feb, [facility] [address] [id number] [address] [place] [address], [place] [address] 18 Jan, 2014 [facility] [address] [id number] [address] [place] [address], [place] [address] 18 Jan, 2014 [facility] [address] [id number] [address] [place] [address], [place] [address] 18 Jan, 2013 [facility] [address] [id number] [address] [place] [address], [place] [address] 18 Jan, 2013 [facility] [address] [id number] [address] [place] [address], [place] [address] Jan, 2013 [facility] [address] [id number] [address] [place] [address], [place] [address] Jan, 2013 [facility] [address] [id number] [address] [place] [address], [place] [id number] Jan, 2013 [facility] [address] [id number] [address] [place] [address], [place] [address] Jan, [facility] [address] [id number] [address] [place] [address], [place] [address] Jan, [facility] [address] [id number] [address] [place] [address], [place] [address] Jan, [facility] [address] [id number] [address] [place] [address], [place] [address] Dec, [facility] [address] [id number] [address] [place] [address], [place] [address] Dec, [facility] [address] [id number] [address] [place] [address], [place] [address] Dec, [facility] [address] [id number] [address] [place] [address], [place] [address] Dec, [facility] [address] [id number] [address] [place] [address], [place] [address] Dec, [facility] [address] [id number] [address] [place] [address], [place] [address] Dec, [facility] [address] [id number] [address] [place] [address], [place] [address] Dec, [facility] [address] [id number] [address] [place] [address], [place] [address] Dec, [facility] [address] [id number] [address] [place] [address], [place] [address] Dec, [facility] [address] [id number] [address] [place] [address], [place] [address] Nov, [facility] [address] [id number] [address] [place] [address], [place] [address] Nov, [facility] [address] [id number] [address] [place] [address], [place] [address] Nov, [facility] [address] [id number] [address] [place] [address], [place] [address] Nov, [facility] [address] [id number] [address] [place] [address], [place] [address] Nov, [facility] [address] [id number] [address] [place] [address], [place] [address] Nov, [facility] [address] [id number] [address] [place] [address], [place] [address] Nov, [facility] [address] [id number] [address] [place] [address], [place] [address] Nov, [facility] [address] [id number] [address] [place] [address], [place] [address] Nov, [facility] [address] [id number] [address] [place] [address], [place] [address] Nov, [facility] [address] [id number] [address] [place] [address], [place] [address] Nov, [facility] [address] [id number] [address] [place] [address], [place] [address] Nov, [facility] [address] [id number] [address] [place] [address], [place] [address] Nov, [facility] [address] [id number] [address] [place] [address], [place] [address] Nov, [facility] [address] [id number] [address] [place] [address], [place] [address] Nov, [facility] [address] [id number] [facility] [place] [address] Oct, [facility] [address] [id number] [address] [place] [address], [place] [address] Oct, [facility] [address] [id number] [address] [place] [address], [place] [address] Oct, [facility] [address] [id number] [address] [place] [address], [place] [address] Oct, [facility] [address] [id number] [address] [place] [address], [place] [address] Oct, [facility] [address] [id number] [address] [place] [address], [place] [address] Oct, [facility] [address] [id number] [address] [place] [address], [place] [address] Oct, [facility] [address] [id number] [address] [place] [address], [place] [address] Oct, [facility] [address] [id number] [address] [place] [address], [place] [address] Oct, [facility] [address] [id number] [address] [place] [address], [place] [address] Oct, [facility] [address] [id number] [address] [place] [address], [place] [address] Oct, [facility] [address] [id number] [address] [place] [address], [place] [address] Oct, [facility] [address] [id number] [address] [place] [address], [place] [address] Oct, [facility] [address] [id number] [address] [place] [address], [place] [address] Oct, [facility] [address] [id number] [address] [place] [address], [place] [address] September, [facility] [address] [id number] [address] [place] [address], [place] [address] September, [facility] [address] [id number] [address] [place] [address], [place] [address] September, [facility] [address] [id number] [address] [place] [address], [place] [address] September, [facility] [address] [id number] [address] [place] [address], [place] [address] September, [facility] [address] [id number] [address] [place] [address], [place] [address] September, [facility] [address] [id number] [address] [place] [address], [place] [address] September, [facility] [address] [id number] [address] [place] [address], [place] [address] September, [facility] [address] [id number] [address] [place] [address], [place] [address] September, [facility] [address] [id number] [address] [place] [address], [place] [address] September, [facility] [address] [id number] [address] [place] [address], [place] [address] September, [facility] [address] [id number] [address] [place] [address], [place] [address] September, [facility] [address] [id number] [address] [place] [address], [place] [address] September, [facility] [address] [id number] [address] [place] [address], [place] [address] Aug, [facility] [address] [id number] [address] [place] [address], [place] [address] Aug, [facility] [address] [id number] [address] [place] [address], [place] [address] Aug, [facility] [address] [id number] [address] [place] [address], [place] [address] Aug, [facility] [address] [id number] [facility] [place] [address] Aug, [facility] [address] [id number] [facility] [place] [address] Aug, [facility] [address] [id number] [address] [place] [address], [place] [address] Aug, [facility] [address] [id number] [address] [place] [address], [place] [address] Aug, [facility] [address] [id number] [address] [place] [address], [place] [address] Aug, [facility] [address] [id number] [address] [place] [address], [place] [address] Aug, [facility] [address] [id number] [address] [place] [address], [place] [address] Jul, [facility] [address] [id number] [address] [place] [address], [place] [address] Jul, [facility] [address] [id number] [address] [place] [address], [place] [address] Jul, [facility] [address] [id number] [address] [place] [address], [place] [address] Jul, [facility] [address] [id number] [address] [place] [address], [place] [address] Jul, [facility] [address] [id number] [address] [place] [address], [place] [address] Jul, [facility] [address] [id number] [address] [place] [address], [place] [address] Jul, [facility] [address] [id number] [address] [place] [address], [place] [address] Jul, [facility] [address] [id number] [address] [place] [address], [place] [address] Jun, [facility] [address] [id number] [address] [place] [address], [place] [address] 27 Jun, 2013 [facility] [address] [id number] [address] [place] [address], [place] [address] 14 Jun, 2013 [facility] [address] [id number] [address] [place] [address], [place] [address] 14 Jun, 2013 [facility] [address] [id number] [address] [place] [address], [place] [address] 13 Jun, 2013 [facility] [address] [id number] [address] [place] [address], [place] [address] 13 Jun, 2013 [facility] [address] [id number] [address] [place] [address], [place] [address] 06 Jun, 2013 [facility] [address] [id number] [address] [place] [address], [place] [address] 06 Jun, 2013 [facility] [address] [id number] [address] [place] [address], [place] [address] 04 Jun, 2013 [facility] [address] [id number] [address] [place] [address], [place] [address] Jun, [facility] [address] [id number] [address] [place] [address], [place] [address] Jun, [facility] [address] [id number] [address] [place] [address], [place] [address] Jun, [facility] [address] [id number] [address] [place] [address], [place] [address] Jun, [facility] [address] [id number] [address] [place] [address], [place] [address] Jun, [facility] [address] [id number] [address] [place] [address], [place] [address] May, [facility] [address] [id number] [address] [place] [address], [place] [address] May, [facility] [address] [id number] [address] [place] [address], [place] [address] May, [facility] [address] [id number] [address] [place] [address], [place] [address] May, [facility] [address] [id number] [address] [place] [address], [place] [address] May, [facility] [address] [id number] [address] [place] [address], [place] [address] May, [facility] [address] [id number] [address] [place] [address], [place] [address] May, [facility] [address] [id number] [address] [place] [address], [place] [address] May, [facility] [address] [id number] [address] [place] [address], [place] [address] May, [facility] [address] [id number] [address] [place] [address], [place] [address] May, [facility] [address] [id number] [address] [place] [address], [place] [address] May, [facility] [address] [id number] [address] [place] [address], [place] [address] May, [facility] [address] [id number] [address] [place] [address], [place] [address] May, [facility] [address] [id number] [address] [place] [address], [place] [address] May, [facility] [address] [id number] [address] [place] [address], [place] [address] May, [facility] [address] [id number] [address] [place] [address], [place] [address] May, [facility] [address] [id number] [address] [place] [address], [place] [address] May, [facility] [address] [id number] [address] [place] [address], [place] [address] May, [facility] [address] [id number] [address] [place] [address], [place] [address] May, [facility] [address] [id number] [address] [place] [address], [place] [address] May, [facility] [address] [id number] [address] [place] [address], [place] [address] Apr, [facility] [address] [id number] [address] [place] [address], [place] [address] Apr, [facility] [address] [id number] [address] [place] [address], [place] [address] Apr, [facility] [address] [id number] [address] [place] [address], [place] [address] Apr, [facility] [address] [id number] [address] [place] [address], [place] [address] Apr, [facility] [address] [id number] [address] [place] [address], [place] [address] Apr, [facility] [address] [id number] [address] [place] [address], [place] [address] Apr, [facility] [address] [id number] [address] [place] [address], [place] [address] Apr, [facility] [address] [id number] [address] [place] [address], [place] [address] Apr, [facility] [address] [id number] [address] [place] [address], [place] [address] Apr, [facility] [address] [id number] [address] [place] [address], [place] [address] Apr, [facility] [address] [id number] [address] [place] [address], [place] [address] Apr, [facility] [address] [id number] [address] [place] [address], [place] [address] Apr, [facility] [address] [id number] [address] [place] [address], [place] [address] Apr, [facility] [address] [id number] [address] [place] [address], [place] [address] Apr, [facility] [address] [id number] [address] [place] [address], [place] [address] Apr, [facility] [address] [id number] [address] [place] [address], [place] [address] Apr, [facility] [address] [id number] [address] [place] [address], [place] [address] Apr, [facility] [address] [id number] [address] [place] [address], [place] [address] Mar, [facility] [address] [id number] [address] [place] [address], [place] [address] Mar, [facility] [address] [id number] [address] [place] [address], [place] [address] Mar, [facility] [address] [id number] [address] [place] [address] Mar, [facility] [address] [id number] [address] [place] [address], [place] [address] Mar, [facility] [address] [id number] [address] [place] [address] Mar, [facility] [address] [id number] [address] [place] [address] Mar, [facility] [address] [id number] [address] [place] [address] Mar, [facility] [address] [id number] [address] [place] [address], [place] [address] Mar, [facility] [address] [id number] [address] [place] [address] Mar, [facility] [address] [id number] [address] [place] [address] Mar, [facility] [address] [id number] [address] [place] [address] Feb, [facility] [address] [id number] [address] [place] [address], [place] [address] Feb, [facility] [address] [id number] [address] [place] [address], [place] [address] Feb, [facility] [address] [id number] [address] [place] [address], [place] [address] Feb, [facility] [address] [id number] [address] [place] [address], [place] [address] Feb, [facility] [address] [id number] [address] [place] [address], [place] [address] Dec, [facility] [address] [id number] [address] [place] [address], [place] [address] Dec, [facility] [address] [id number] [address] [place] [address], [place] [address] Dec, [facility] [address] [id number] [address] [place] [address], [place] [address] Dec, [facility] [address] [id number] [address] [place] [address], [place] [address] Nov, [facility] [address] [id number] [address] [place] [address], [place] [address] Nov, [facility] [address] [id number] [address] [place] [address], [place] [address] Nov, [facility] [address] [id number] [address] [place] [address], [place] [address] Nov, [facility] [address] [id number] [address] [place] [address], [place] [address] Nov, [facility] [address] [id number] [address] [place] [address], [place] [address] Nov, [facility] [address] [id number] [address] [place] [address], [place] [address] Oct, [facility] [address] [id number] [address] [place] [address], [place] [address] Oct, [facility] [address] [id number] [address] [place] [address], [place] [address] Oct, [facility] [address] [id number] [address] [place] [address], [place] [address] Oct, [facility] [address] [id number] [address] [place] [address], [place] [address] September, [facility] [address] [id number] [address] [place] [address], [place] [address] September, [facility] [address] [id number] [address] [place] [address], [place] [address] September, [facility] [address] [id number] [address] [place] [address], [place] [address] September, [facility] [address] [id number] [address] [place] [address], [place] [address] September, [facility] [address] [id number] [address] [place] [address], [place] [address] September, [facility] [address] [id number] [address] [place] [address], [place] [address] September, [facility] [address] [id number] [address] [place] [address], [place] [address] September, [facility] [address] [id number] [address] [place] [address], [place] [address] Aug, [facility] [address] [id number] [address] [place] [address], [place] [address] Aug, [facility] [address] [id number] [address] [place] [address], [place] [address] Jul, [facility] [address] [id number] [address] [place] [address], [place] [address] Jun, [facility] [address] [id number] [address] [place] [address], [place] [address] May, [facility] [address] [id number] [address] [place] [address], [place] [address] May, [facility] [address] [id number] [address] [place] [address], [place] [address] May, [facility] [address] [id number] [address] [place] [address], [place] [address] May, [facility] [address] [id number] [address] [place] [address], [place] [address] Apr, [facility] [address] [id number] [address] [place] [address], [place] [address] Apr, [facility] [address] [id number] [address] [place] [address], [place] [address] Apr, [facility] [address] [id number] [address] [place] [address], [place] [address] Apr, [facility] [address] [id number] [address] [place] [address], [place] [address] Apr, [facility] [address] [id number] [address] [place] [address], [place] [address] Apr, [facility] [address] [id number] [address] [place] [address], [place] [address] Apr, [facility] [address] [id number] [address] [place] [address], [place] [address] Apr, [facility] [address] [id number] [address] [place] [address], [place] [address] Apr, [facility] [address] [id number] [address] [place] [address], [place] [address] Mar, [facility] [address] [id number] [address] [place] [address], [place] [address] 30 Mar, 2012 [facility] [address] [id number] [address] [place] [address], [place] [address] Mar, [facility] [address] [id number] [address] [place] [address], [place] [address] 27 Mar, 2012 [facility] [address] [id number] [address] [place] [address], [place] [address] 16 Mar, 2012 [facility] [address] [id number] [address] [place] [address], [place] [address] 16 Mar, 2012 [facility] [address] [id number] [address] [place] [address], [place] [address] 16 Mar, 2012 [facility] [address] [id number] [address] [place] [address], [place] [address] 16 Mar, 2012 [facility] [address] [id number] [address] [place] [address], [place] [address] 16 Mar, 2012 [facility] [address] [id number] [address] [place] [address], [place] [address] 16 Mar, 2012 [facility] [address] [id number] [address] [place] [address], [place] [address] 14 Mar, 2012 [facility] [address] [id number] [address] [place] [address], [place] [address] 14 Mar, 2012 [facility] [address] [id number] [address] [place] [address], [place] [address] 13 Mar, 2012 [facility] [address] [id number] [address] [place] [address], [place] [address] 13 Mar, 2012 [facility] [address] [id number] [address] [place] [address], [place] [address] 06 Mar, 2012 [facility] [address] [id number] [address] [place] [address], [place] [address] Mar, [facility] [address] [id number] [address] [place] [address], [place] [address] 02 Mar, 2012 [facility] [address] [id number] [address] [place] [address], [place] [address] Mar, [facility] [address] [id number] [address] [place] [address], [place] [address] Mar, [facility] [address] [id number] [address] [place] [address], [place] [address] Feb, [facility] [address] [id number] [address] [place] [address], [place] [address] Feb, [facility] [address] [id number] [address] [place] [address], [place] [address] Feb, [facility] [address] [id number] [address] [place] [address], [place] [address] Feb, [facility] [address] [id number] [address] [place] [address], [place] [address] Jan, [facility] [address] [id number] [address] [place] [address], [place] [address] Jan, [facility] [address] [id number] [address] [place] [address], [place] [address] Dec, [facility] [address] [id number] [address] [place] [address], [place] [address] Dec, [facility] [address] [id number] [address] [place] [address], [place] [address] Dec, [facility] [address] [id number] [address] [place] [address], [place] [address] Nov, [facility] [address] [id number] [address] [place] [address], [place] [address] Nov, [facility] [address] [id number] [address] [place] [address], [place] [address] Oct, [facility] [address] [id number] [address] [place] [address], [place] [address] Oct, [facility] [address] [id number] [address] [place] [address], [place] [address] September, [facility] [address] [id number] [address] [place] [address], [place] [address] September, [facility] [address] [id number] [address] [place] [address], [place] [address] September, [facility] [address] [id number] [address] [place] [address], [place] [address] September, [facility] [address] [id number] [address] [place] [address], [place] [address] Aug, [facility] [address] [id number] [address] [place] [address], [place] [address] Jul, [facility] [address] [id number] [address] [place] [address], [place] [address] Jul, [facility] [address] [id number] [address] [place] [address], [place] [address] Jun, [facility] [address] [id number] [address] [place] [address], [place] [address] Jun, [facility] [address] [id number] [address] [place] [address], [place] [address] Jun, [facility] [address] [id number] [address] [place] [address], [place] [address] May, [facility] [address] [id number] [address] [place] [address], [place] [address] May, [facility] [address] [id number] [address] [place] [address], [place] [address] May, [facility] [address] [id number] [address] [place] [address], [place] [address] May, [facility] [address] [id number] [address] [place] [address], [place] [address] Apr, [facility] [address] [id number] [address] [place] [address], [place] [address] Apr, [facility] [address] [id number] [address] [place] [address], [place] [address] Apr, [facility] [address] [id number] [address] [place] [address], [place] [address] Mar, [facility] [address] [id number] [address] [place] [address], [place] [address] Mar, [facility] [address] [id number] [address] [place] [address], [place] [address] Mar, [facility] [address] [id number] [address] [place] [address], [place] [address] Mar, [facility] [address] [id number] [address] [place] [address], [place] [address] Mar, [facility] [address] [id number] [address] [place] [address], [place] [address] Feb, [facility] [address] [id number] [address] [place] [address], [place] [address] Feb, [facility] [address] [id number] [address] [place] [address], [place] [address] Feb, [facility] [address] [id number] [address] [place] [address], [place] [address] Feb, [facility] [address] [id number] [address] [place] [address], [place] [address] Feb, [facility] [address] [id number] [address] [place] [address], [place] [address] Feb, [facility] [address] [id number] [address] [place] [address], [place] [address] Feb, [facility] [address] [id number] [address] [place] [address], [place] [address] Apr, [facility] [address] [id number] [address] [place] [address], [place] [address] Apr, [facility] [address] [id number] 12 [place] [address], [place] [address] 15 Apr, 2010 [facility] [address] [id number] [address] [place] [address], [place] [address] 15 Apr, 2010 [facility] [address] [id number] [address] [place] [address] [address] Apr, [facility] [address] [id number] [address] [place] [address], [place] [address] Apr, [facility] [address] [id number] [address] [place] [address], [place] [address] Mar, [facility] [address] [id number] [address] [place] [address], [place] [address] Mar, [facility] [address] [id number] [address] [place] [address], [place] [address] 17 Mar, 2010 [facility] [address] [id number] [address] [place] [address], [place] [address] 16 Mar, 2010 [facility] [address] [id number] [address] [place] [address], [place] [address] Mar, [facility] [address] [id number] [address] [place] [address], [place] [address] Mar, [facility] [address] [id number] [address] [place] [id number] Mar, [facility] [address] [id number] [address] [place] [address], [place] [address] Mar, [facility] [address] [id number] [address] [place] [id number] Feb, [facility] [address] [id number] [address] [place] [address] Feb, [facility] [address] [id number] [address] [place] [id number] Dec, [facility] [address] [id number] [address] [place] [id number] Jun, [facility] [address] [id number] [address] [place] [address] Jun, [facility] [address] [id number] [address] [place] [address] May, [facility] [address] [id number] [address] [place] [id number] Feb, [facility] [address] [facility] [id number] [address] [place] [id number] Feb, [facility] [address] [id number] [address] [place] [id number] Feb, [facility] [address] [facility] [id number] [address] [place] [address] Feb, [facility] [address] [facility] [id number] [address] [place] [address] Feb, [facility] [address] [facility] [id number] [address] [place] [phone] Feb, [facility] [address] [facility] [id number] [address] [place] [address] Feb, [facility] [address] [facility] [id number] [address] [place] [id number] Jul, [facility] [address] [facility] [id number] [address] [place] [id number] Jun, IMMUNIZATIONS No Known Immunizations SOCIAL HISTORY Never Assessed REASON FOR VISIT PLAN OF CARE VITAL SIGNS MEDICATIONS Unknown Medications RESULTS No Results PROCEDURES Procedure Date Ordered Result Body Site PSYTX PT&/FAMILY 45 MINUTES May 24, 2013 INSTRUCTIONS MEDICATIONS ADMINISTERED No Known Medications [...]
--- OUTSIDE RECORDS SUMMARY | 2019-10-27 22:12 | XMS REPORT ---
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 [address] Aug, [facility] [address] [id number] [address] [place] [address], [place] [address] Aug, [facility] [address] [id number] [address] [place] [address], [place] [address] Jul, [facility] [address] [id number] [address] [place] [address], [place] [address] Jul, [facility] [address] [id number] [address] [place] [address], [place] [address] Jul, [facility] [address] [id number] [address] [place] [address], [place] [address] Jul, [facility] [address] [id number] [address] [place] [id number] 24 Jul, 2014 [facility] [address] [id number] [address] [place] [address], [place] [address] Jul, [facility] [address] [id number] [address] [place] [address], [place] [address] Jul, [facility] [address] [id number] [address] [place] [address], [place] [address] 19 Jul, 2014 [facility] [address] [id number] [address] [place] [address], [place] [address] Jul, [facility] [address] [id number] [address] [place] [address], [place] [address] Jul, 2014 [facility] [address] [id number] [address] [place] [address], [place] [address] Jul, 2014 [facility] [address] [id number] [address] [place] [address], [place] [address] Jul, 2014 [facility] [address] [id number] [address] [place] [address], [place] [address] Jul, 2014 [facility] [address] [id number] [address] [place] [address], [place] [address] Jul, [facility] [address] [id number] [address] [place] [address], [place] [address] Jul, [facility] [address] [id number] [address] [place] [address], [place] [address] Jun, [facility] [address] [id number] [address] [place] [address], [place] [address] Jun, [facility] [address] [id number] [address] [place] [address], [place] [address] Jun, [facility] [address] [id number] [address] [place] [address], [place] [address] Jun, [facility] [address] [id number] [address] [place] [address], [place] [address] Jun, [facility] [address] [id number] [address] [place] [address], [place] [address] Jun, [facility] [address] [id number] [address] [place] [address], [place] [address] Jun, 2014 [facility] [address] [id number] [address] [place] [address], [place] [address] Jun, 2014 [facility] [address] [id number] [address] [place] [address], [place] [address] Jun, 2014 [facility] [address] [id number] [address] [place] [address], [place] [address] Jun, 2014 [facility] [address] [id number] [address] [place] [address], [place] [address] Jun, 2014 [facility] [address] [id number] [address] [place] [address], [place] [address] Jun, 2014 [facility] [address] [id number] [address] [place] [address], [place] [address] Jun, 2014 [facility] [address] [id number] [address] [place] [address], [place] [address] Jun, 2014 [facility] [address] [id number] [address] [place] [address], [place] [address] Jun, 2014 [facility] [address] [id number] [address] [place] [address], [place] [address] Jun, 2014 [facility] [address] [id number] [address] [place] [address], [place] [address] Jun, 2014 [facility] [address] [id number] [address] [place] [address], [place] [address] Jun, 2014 [facility] [address] [id number] [address] [place] [address], [place] [address] Jun, 2014 [facility] [address] [id number] [address] [place] [address], [place] [address] Jun, 2014 [facility] [address] [id number] [address] [place] [address], [place] [address] Jun, 2014 [facility] [address] [id number] [address] [place] [address], [place] [address] Jun, 2014 [facility] [address] [id number] [address] [place] [address], [place] [address] Jun, 2014 [facility] [address] [id number] [address] [place] [address], [place] [address] Jun, [facility] [address] [id number] [address] [place] [address], [place] [address] Jun, [facility] [address] [id number] [address] [place] [address], [place] [address] May, [facility] [address] [id number] [address] [place] [address], [place] [address] May, [facility] [address] [id number] [address] [place] [address], [place] [address] May, [facility] [address] [id number] [address] [place] [address], [place] [address] May, [facility] [address] [id number] [address] [place] [address], [place] [address] May, [facility] [address] [id number] [address] [place] [address], [place] [address] May, [facility] [address] [id number] [address] [place] [address], [place] [address] May, [facility] [address] [id number] [address] [place] [address], [place] [address] May, [facility] [address] [id number] [address] [place] [address], [place] [address] May, [facility] [address] [id number] [address] [place] [address], [place] [address] May, [facility] [address] [id number] [address] [place] [address], [place] [address] May, [facility] [address] [id number] [address] [place] [address], [place] [address] May, [facility] [address] [id number] [address] [place] [address], [place] [address] May, [facility] [address] [id number] [address] [place] [address], [place] [address] May, [facility] [address] [id number] [address] [place] [address] [place] [address] May, [facility] [address] [id number] [address] [place] [address], [place] [address] May, [facility] [address] [id number] [address] [place] [address], [place] [address] May, [facility] [address] [id number] [address] [place] [address], [place] [address] Apr, [facility] [address] [id number] [address] [place] [address], [place] [address] Apr, [facility] [address] [id number] [address] [place] [address], [place] [address] Apr, [facility] [address] [id number] [address] [place] [address], [place] [address] Apr, [facility] [address] [id number] [address] [place] [address], [place] [address] Mar, [facility] [address] [id number] [address] [place] [address], [place] [address] Mar, [facility] [address] [id number] [address] [place] [address], [place] [address] Mar, [facility] [address] [id number] [address] [place] [address], [place] [address] Mar, [facility] [address] [id number] [address] [place] [address], [place] [address] Mar, [facility] [address] [id number] [address] [place] [address], [place] [address] Mar, [facility] [address] [id number] [address] [place] [address], [place] [address] 16 Feb, 2014 [facility] [address] [id number] [address] [place] [address], [place] [address] Feb, [facility] [address] [id number] [address] [place] [address], [place] [address] 18 Jan, 2014 [facility] [address] [id number] [facility] [place] [address] 18 Jan, 2013 [facility] [address] [id number] [address] [place] [address], [place] [address] Jan, 2013 [facility] [address] [id number] [address] [place] [address], [place] [address] Jan, 2013 [facility] [address] [id number] [address] [place] [address], [place] [address] Jan, 2013 [facility] [address] [id number] [address] [place] [address], [place] [address] Jan, 2013 [facility] [address] [id number] [address] [place] [address], [place] [id number] Jan, [facility] [address] [id number] [address] [place] [address], [place] [address] Jan, [facility] [address] [id number] [address] [place] [address], [place] [address] Jan, [facility] [address] [id number] [address] [place] [address], [place] [address] Jan, [facility] [address] [id number] [address] [place] [address], [place] [address] Dec, [facility] [address] [id number] [address] [place] [address], [place] [address] Dec, [facility] [address] [id number] [address] [place] [address], [place] [address] Dec, [facility] [address] [id number] [address] [place] [address], [place] [address] Dec, [facility] [address] [id number] [address] [place] [address], [place] [address] Dec, [facility] [address] [id number] [address] [place] [address], [place] [address] Dec, [facility] [address] [id number] [address] [place] [address], [place] [address] Dec, [facility] [address] [id number] [facility] [place] [address] Dec, [facility] [address] [id number] [address] [place] [address], [place] [address] Dec, [facility] [address] [id number] [address] [place] [address], [place] [address] Nov, [facility] [address] [id number] [address] [place] [address], [place] [address] Nov, [facility] [address] [id number] [address] [place] [address], [place] [address] Nov, [facility] [address] [id number] [address] [place] [address], [place] [address] Nov, [facility] [address] [id number] [address] [place] [address], [place] [address] Nov, [facility] [address] [id number] [address] [place] [address], [place] [address] Nov, [facility] [address] [id number] [address] [place] [address], [place] [address] Nov, [facility] [address] [id number] [address] [place] [address], [place] [address] Nov, [facility] [address] [id number] [address] [place] [address], [place] [address] Nov, [facility] [address] [id number] [address] [place] [address], [place] [address] Nov, [facility] [address] [id number] [address] [place] [address], [place] [address] Nov, [facility] [address] [id number] [address] [place] [address], [place] [address] Nov, [facility] [address] [id number] [address] [place] [address], [place] [address] Nov, [facility] [address] [id number] [facility] [place] [address] Nov, [facility] [address] [id number] [address] [place] [address], [place] [address] Nov, [facility] [address] [id number] [address] [place] [address], [place] [address] Oct, [facility] [address] [id number] [address] [place] [address], [place] [address] Oct, [facility] [address] [id number] [address] [place] [address], [place] [address] Oct, [facility] [address] [id number] [address] [place] [address], [place] [address] Oct, [facility] [address] [id number] [address] [place] [address], [place] [address] Oct, [facility] [address] [id number] [address] [place] [address], [place] [address] Oct, [facility] [address] [id number] [address] [place] [address], [place] [address] Oct, [facility] [address] [id number] [address] [place] [address], [place] [address] Oct, [facility] [address] [id number] [address] [place] [address], [place] [address] Oct, [facility] [address] [id number] [address] [place] [address], [place] [address] Oct, [facility] [address] [id number] [address] [place] [address], [place] [address] Oct, [facility] [address] [id number] [address] [place] [address], [place] [address] Oct, [facility] [address] [id number] [address] [place] [address], [place] [address] Oct, [facility] [address] [id number] [address] [place] [address], [place] [address] Oct, [facility] [address] [id number] [address] [place] [address], [place] [address] September, [facility] [address] [id number] [address] [place] [address], [place] [address] September, [facility] [address] [id number] [address] [place] [address], [place] [address] September, [facility] [address] [id number] [address] [place] [address], [place] [address] September, [facility] [address] [id number] [address] [place] [address], [place] [address] September, [facility] [address] [id number] [address] [place] [address], [place] [address] September, [facility] [address] [id number] [address] [place] [address], [place] [address] September, [facility] [address] [id number] [address] [place] [address], [place] [address] September, [facility] [address] [id number] [address] [place] [address], [place] [address] September, [facility] [address] [id number] [address] [place] [address], [place] [address] September, [facility] [address] [id number] [address] [place] [address], [place] [address] September, [facility] [address] [id number] [address] [place] [address], [place] [address] September, [facility] [address] [id number] [address] [place] [address], [place] [address] September, [facility] [address] [id number] [address] [place] [address], [place] [address] Aug, [facility] [address] [id number] [address] [place] [address], [place] [address] Aug, [facility] [address] [id number] [address] [place] [address], [place] [address] Aug, [facility] [address] [id number] [facility] [address] Aug, [facility] [address] [id number] [address] [place] [address], [place] [address] Aug, [facility] [address] [id number] [address] [place] [address], [place] [address] Aug, [facility] [address] [id number] [address] [place] [address], [place] [address] Aug, [facility] [address] [id number] [address] [place] [address], [place] [address] Aug, [facility] [address] [id number] [address] [place] [address], [place] [address] Aug, [facility] [address] [id number] [address] [place] [address], [place] [address] Aug, [facility] [address] [id number] [address] [place] [address], [place] [address] Jul, [facility] [address] [id number] [address] [place] [address], [place] [address] Jul, [facility] [address] [id number] [address] [place] [address], [place] [address] Jul, [facility] [address] [id number] [address] [place] [address], [place] [address] Jul, [facility] [address] [id number] [address] [place] [address], [place] [address] Jul, [facility] [address] [id number] [address] [place] [address], [place] [address] Jul, [facility] [address] [id number] [address] [place] [address], [place] [address] Jul, [facility] [address] [id number] [address] [place] [address], [place] [address] Jul, [facility] [address] [id number] [address] [place] [address], [place] [address] Jun, 2013 [facility] [address] [id number] [address] [place] [address], [place] [address] Jun, 2013 [facility] [address] [id number] [address] [place] [address], [place] [address] 14 Jun, 2013 [facility] [address] [id number] [address] [place] [address], [place] [address] 14 Jun, 2013 [facility] [address] [id number] [address] [place] [address], [place] [address] Jun, [facility] [address] [id number] [address] [place] [address], [place] [address] Jun, 2013 [facility] [address] [id number] [address] [place] [address], [place] [address] 06 Jun, 2013 [facility] [address] [id number] [address] [place] [address], [place] [address] 06 Jun, 2013 [facility] [address] [id number] [address] [place] [address], [place] [address] 04 Jun, 2013 [facility] [address] [id number] [address] [place] [address], [place] [address] 04 Jun, 2013 [facility] [address] [id number] [address] [place] [address], [place] [address] Jun, [facility] [address] [id number] [address] [place] [address], [place] [address] Jun, [facility] [address] [id number] [address] [place] [address], [place] [address] Jun, [facility] [address] [id number] [address] [place] [address], [place] [address] Jun, [facility] [address] [id number] [address] [place] [address], [place] [address] May, [facility] [address] [id number] [address] [place] [address], [place] [address] May, [facility] [address] [id number] [address] [place] [address], [place] [address] May, [facility] [address] [id number] [address] [place] [address], [place] [address] May, [facility] [address] [id number] [address] [place] [address], [place] [address] May, [facility] [address] [id number] [address] [place] [address], [place] [address] May, [facility] [address] [id number] [address] [place] [address], [place] [address] May, [facility] [address] [id number] [address] [place] [address], [place] [address] May, [facility] [address] [id number] [address] [place] [address], [place] [address] May, [facility] [address] [id number] [address] [place] [address], [place] [address] May, [facility] [address] [id number] [address] [place] [address], [place] [address] May, [facility] [address] [id number] [address] [place] [address], [place] [address] May, [facility] [address] [id number] [address] [place] [address], [place] [address] May, [facility] [address] [id number] [address] [place] [address], [place] [address] May, [facility] [address] [id number] [address] [place] [address], [place] [address] May, [facility] [address] [id number] [address] [place] [address], [place] [address] May, [facility] [address] [id number] [address] [place] [address], [place] [address] May, [facility] [address] [id number] [address] [place] [address], [place] [address] May, [facility] [address] [id number] [address] [place] [address], [place] [address] May, [facility] [address] [id number] [address] [place] [address], [place] [address] May, [facility] [address] [id number] [address] [place] [address], [place] [address] Apr, [facility] [address] [id number] [address] [place] [address], [place] [address] Apr, [facility] [address] [id number] [address] [place] [address], [place] [address] Apr, [facility] [address] [id number] [address] [place] [address], [place] [address] Apr, [facility] [address] [id number] [address] [place] [address], [place] [address] Apr, [facility] [address] [id number] [address] [place] [address], [place] [address] Apr, [facility] [address] [id number] [address] [place] [address], [place] [address] Apr, [facility] [address] [id number] [address] [place] [address], [place] [address] Apr, [facility] [address] [id number] [address] [place] [address], [place] [address] Apr, [facility] [address] [id number] [address] [place] [address], [place] [address] Apr, [facility] [address] [id number] [address] [place] [address], [place] [address] Apr, [facility] [address] [id number] [address] [place] [address], [place] [address] Apr, [facility] [address] [id number] [address] [place] [address], [place] [address] Apr, [facility] [address] [id number] [address] [place] [address], [place] [address] Apr, [facility] [address] [id number] [address] [place] [address], [place] [address] Apr, [facility] [address] [id number] [address] [place] [address], [place] [address] Apr, [facility] [address] [id number] [address] [place] [address] Apr, [facility] [address] [id number] [address] [place] [address], [place] [address] Apr, [facility] [address] [id number] [address] [place] [address] Mar, [facility] [address] [id number] [address] [place] [address], [place] [address] Mar, [facility] [address] [id number] [address] [place] [address] Mar, [facility] [address] [id number] [address] [place] [address] Mar, [facility] [address] [id number] [address] [place] [address] Mar, [facility] [address] [id number] [address] [place] [address] Mar, [facility] [address] [id number] [address] [place] [address] Mar, [facility] [address] [id number] [address] [place] [address] Mar, [facility] [address] [id number] [address] [place] [address] Mar, [facility] [address] [id number] [address] [place] [address] Mar, [facility] [address] [id number] [address] [place] [address], [place] [address] Mar, [facility] [address] [id number] [address] [place] [address], [place] [address] Feb, [facility] [address] [id number] [address] [place] [address], [place] [address] Feb, [facility] [address] [id number] [address] [place] [address], [place] [address] Feb, [facility] [address] [id number] [address] [place] [address], [place] [address] Feb, [facility] [address] [id number] [address] [place] [address], [place] [address] Feb, [facility] [address] [id number] [address] [place] [address], [place] [address] Dec, [facility] [address] [id number] [address] [place] [address], [place] [address] Dec, [facility] [address] [id number] [address] [place] [address], [place] [address] Dec, [facility] [address] [id number] [address] [place] [address], [place] [address] Dec, [facility] [address] [id number] [address] [place] [address], [place] [address] Nov, [facility] [address] [id number] [address] [place] [address], [place] [address] Nov, [facility] [address] [id number] [address] [place] [address], [place] [address] Nov, [facility] [address] [id number] [address] [place] [address], [place] [address] Nov, [facility] [address] [id number] [address] [place] [address], [place] [address] Nov, [facility] [address] [id number] [address] [place] [address], [place] [address] Nov, [facility] [address] [id number] [address] [place] [address], [place] [address] Oct, [facility] [address] [id number] [address] [place] [address], [place] [address] Oct, [facility] [address] [id number] [address] [place] [address], [place] [address] Oct, [facility] [address] [id number] [address] [place] [address], [place] [address] Oct, [facility] [address] [id number] [address] [place] [address], [place] [address] September, [facility] [address] [id number] [address] [place] [address], [place] [address] September, [facility] [address] [id number] [address] [place] [address], [place] [address] September, [facility] [address] [id number] [address] [place] [address], [place] [address] September, [facility] [address] [id number] [address] [place] [address], [place] [address] September, [facility] [address] [id number] [address] [place] [address], [place] [address] September, [facility] [address] [id number] [address] [place] [address], [place] [address] September, [facility] [address] [id number] [address] [place] [address], [place] [address] September, [facility] [address] [id number] [address] [place] [address], [place] [address] Aug, [facility] [address] [id number] [address] [place] [address], [place] [address] Aug, [facility] [address] [id number] [address] [place] [address], [place] [address] Jul, [facility] [address] [id number] [address] [place] [address], [place] [address] Jun, [facility] [address] [id number] [address] [place] [address], [place] [address] May, [facility] [address] [id number] [address] [place] [address], [place] [address] May, [facility] [address] [id number] [address] [place] [address], [place] [address] May, [facility] [address] [id number] [address] [place] [address], [place] [address] May, [facility] [address] [id number] [address] [place] [address], [place] [address] Apr, [facility] [address] [id number] [address] [place] [address], [place] [address] Apr, [facility] [address] [id number] [address] [place] [address], [place] [address] Apr, [facility] [address] [id number] [address] [place] [address], [place] [address] Apr, [facility] [address] [id number] [address] [place] [address], [place] [address] Apr, [facility] [address] [id number] [address] [place] [address], [place] [address] Apr, [facility] [address] [id number] [address] [place] [address], [place] [address] 17 Apr, 2012 [facility] [address] [id number] [address] [place] [address], [place] [address] 14 Apr, 2012 [facility] [address] [id number] [address] [place] [address], [place] [address] Apr, [facility] [address] [id number] [address] [place] [address], [place] [address] 30 Mar, 2012 [facility] [address] [id number] [address] [place] [address], [place] [address] 30 Mar, 2012 [facility] [address] [id number] [facility] [place] [address] 27 Mar, 2012 [facility] [address] [id number] [address] [place] [address], [place] [address] 27 Mar, 2012 [facility] [address] [id number] [address] [place] [address], [place] [address] 16 Mar, 2012 [facility] [address] [id number] [address] [place] [address], [place] [address] 16 Mar, 2012 [facility] [address] [id number] [address] [place] [address], [place] [address] 16 Mar, 2012 [facility] [address] [id number] [address] [place] [address], [place] [address] 16 Mar, 2012 [facility] [address] [id number] [address] [place] [address], [place] [address] 16 Mar, 2012 [facility] [address] [id number] [address] [place] [address], [place] [address] 16 Mar, 2012 [facility] [address] [id number] [address] [place] [address], [place] [address] 14 Mar, 2012 [facility] [address] [id number] [address] [place] [address], [place] [address] 14 Mar, 2012 [facility] [address] [id number] [address] [place] [address], [place] [address] 13 Mar, 2012 [facility] [address] [id number] [address] [place] [address], [place] [address] 13 Mar, 2012 [facility] [address] [id number] [address] [place] [address], [place] [address] 06 Mar, 2012 [facility] [address] [id number] [address] [place] [address], [place] [address] 02 Mar, 2012 [facility] [address] [id number] [address] [place] [address], [place] [address] 02 Mar, 2012 [facility] [address] [id number] [address] [place] [address], [place] [address] Mar, [facility] [address] [id number] [address] [place] [address], [place] [address] Mar, [facility] [address] [id number] [address] [place] [address], [place] [address] Feb, [facility] [address] [id number] [address] [place] [address], [place] [address] Feb, [facility] [address] [id number] [address] [place] [address], [place] [address] Feb, [facility] [address] [id number] [address] [place] [address], [place] [address] Feb, [facility] [address] [id number] [address] [place] [address], [place] [address] Jan, [facility] [address] [id number] [address] [place] [address], [place] [address] Jan, [facility] [address] [id number] [address] [place] [address], [place] [address] Dec, [facility] [address] [id number] [address] [place] [address], [place] [address] Dec, [facility] [address] [id number] [address] [place] [address], [place] [address] Dec, [facility] [address] [id number] [address] [place] [address], [place] [address] Nov, [facility] [address] [id number] [address] [place] [address], [place] [address] Nov, [facility] [address] [id number] [address] [place] [address], [place] [address] Oct, [facility] [address] [id number] [address] [place] [address], [place] [address] Oct, [facility] [address] [id number] [address] [place] [address], [place] [address] September, [facility] [address] [id number] [address] [place] [address], [place] [address] September, [facility] [address] [id number] [address] [place] [address], [place] [address] September, [facility] [address] [id number] [address] [place] [address], [place] [address] September, [facility] [address] [id number] [address] [place] [address], [place] [address] Aug, [facility] [address] [id number] [address] [place] [address], [place] [address] Jul, [facility] [address] [id number] [address] [place] [address], [place] [address] Jul, [facility] [address] [id number] [address] [place] [address], [place] [address] Jun, [facility] [address] [id number] [address] [place] [address], [place] [address] Jun, [facility] [address] [id number] [address] [place] [address], [place] [address] Jun, [facility] [address] [id number] [address] [place] [address], [place] [address] May, [facility] [address] [id number] [address] [place] [address], [place] [address] 16 May, 2011 [facility] [address] [id number] [address] [place] [address], [place] [address] May, [facility] [address] [id number] [address] [place] [address], [place] [address] May, [facility] [address] [id number] [address] [place] [address], [place] [address] Apr, [facility] [address] [id number] [address] [place] [address], [place] [address] Apr, [facility] [address] [id number] [address] [place] [address], [place] [address] Apr, [facility] [address] [id number] [address] [place] [address], [place] [address] Mar, [facility] [address] [id number] [address] [place] [address], [place] [address] Mar, [facility] [address] [id number] [address] [place] [address], [place] [address] Mar, [facility] [address] [id number] [address] [place] [address], [place] [address] Mar, [facility] [address] [id number] [address] [place] [address], [place] [address] Mar, [facility] [address] [id number] [address] [place] [address], [place] [address] Feb, [facility] [address] [id number] [address] [place] [address], [place] [address] Feb, [facility] [address] [id number] [address] [place] [address], [place] [address] Feb, [facility] [address] [id number] [address] [place] [address], [place] [address] Feb, [facility] [address] [id number] [address] [place] [id number] Feb, [facility] [address] [id number] [address] [place] [id number] Feb, [facility] [address] [id number] [address] [place] [phone] Feb, [facility] [address] [id number] [address] [place] [address], [place] [address] Apr, [facility] [address] [id number] [address] [place] [address], [place] [address] Apr, [facility] [address] [id number] [address] [place] [address], [place] [address] 15 Apr, 2010 [facility] [address] [id number] [address] [place] [id number] 15 Apr, 2010 [facility] [address] [id number] [address] [place] [address], [place] [address] 02 Apr, 2010 [facility] [address] [id number] [address] [place] [id number] 02 Apr, 2010 [facility] [address] [id number] [address] [place] [address], [place] [address] 18 Mar, 2010 [facility] [address] [id number] [address] [place] [id number] 18 Mar, 2010 [facility] [address] [id number] [address] [place] [address], [place] [address] 17 Mar, 2010 [facility] [address] [id number] [address] [place] [id number] 16 Mar, 2010 [facility] [address] [id number] [address] [place] [id number] Mar, [facility] [address] [id number] [address] [place] [id number] Mar, [facility] [address] [id number] [address] [place] [id number] Mar, [facility] [address] [id number] [address] [place] [id number] Mar, [facility] [address] [id number] [address] [place] [id number] Feb, [facility] [address] [id number] [address] [place] [phone] Feb, [facility] [address] [id number] [address] [place] [id number] Dec, [facility] [address] [id number] [address] [place] [id number] Jun, [facility] [address] [id number] [address] [place] [id number] Jun, [facility] [address] [id number] [address] [place] [id number] May, [facility] [address] [id number] [address] [place] [id number] Feb, [facility] [address] [id number] [address] [place] [id number] Feb, [facility] [address] [id number] [address] [place] [id number] Feb, [facility] [address] [id number] [address] [place] [id number] Feb, [facility] [address] [id number] [address] [place] [id number] Feb, [facility] [address] [id number] [address] [place] [id number] Feb, [facility] [address] [id number] [address] [place] [id number] Feb, [facility] [address] [id number] [address] [place] [id number] Jul, [facility] [address] [id number] [address] [place] [id number] Jun, IMMUNIZATIONS No Known Immunizations SOCIAL HISTORY [...] 08/2014 Hospitalization History Rt hand post op infection-[facility] 7 Hospitalization History cellulitus Right elbow-[facility] 12/09/16
--- OUTSIDE RECORDS SUMMARY | 2019-10-27 22:13 | XMS REPORT ---
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 bite 989.5 [facility] [address] [place] [id number] [address] [place] [address] Oct, [facility] [address] [place] [id number] [address] [place] [address] September, Contact dermatitis 692.9 and Sciatica 724.3 [facility] [address] [facility] [id number] [address] [place] [address] September, [facility] [address] [place] [id number] [address] [place] [address] September, Generalized anxiety disorder 300.02 ; Posttraumatic stress disorder 309.81 and Depression, major, recurrent, in partial remission 296.35 [facility] [address] [place] [id number] [address] [place] [address] September, Cellulitis 682.9 [facility] [address] [id number] [address] [place] [address], [place] [address] September, [facility] [address] [id number] [address] [place] [address], [place] [address] September, [facility] [address] [id number] [address] [place] [address], [place] [address] Aug, [facility] [address] [id number] [address] [place] [address], [place] [address] Aug, [facility] [address] [id number] [address] [place] [address], [place] [address] Aug, [facility] [address] [id number] [address] [place] [address], [place] [address] Aug, [facility] [address] [id number] [address] [place] [address], [place] [address] Jul, [facility] [address] [id number] [address] [place] [address], [place] [address] Jul, [facility] [address] [id number] [address] [place] [address], [place] [address] Jul, [facility] [address] [id number] [address] [place] [address], [place] [address] Jul, [facility] [address] [id number] [address] [place] [address], [place] [address] 24 Jul, 2014 [facility] [address] [id number] [address] [place] [address] Jul, [facility] [address] [id number] [address] [place] [address], [place] [address] Jul, [facility] [address] [id number] [address] [place] [address], [place] [address] 19 Jul, 2014 [facility] [address] [id number] [address] [place] [address] Jul, [facility] [address] [id number] [address] [place] [id number] 05 Jul, 2014 [facility] [address] [id number] [address] [place] [address], [place] [address] Jul, 2014 [facility] [address] [id number] [address] [place] [address], [place] [address] Jul, 2014 [facility] [address] [id number] [address] [place] [address], [place] [address] Jul, 2014 [facility] [address] [id number] [address] [place] [address], [place] [address] Jul, 2014 [facility] [address] [id number] [address] [place] [address], [place] [address] Jul, [facility] [address] [id number] [address] [place] [address], [place] [address] Jun, [facility] [address] [id number] [address] [place] [address], [place] [address] Jun, 2014 [facility] [address] [id number] [address] [place] [address], [place] [address] Jun, 2014 [facility] [address] [id number] [address] [place] [address], [place] [address] Jun, 2014 [facility] [address] [id number] [address] [place] [address], [place] [address] Jun, [facility] [address] [id number] [address] [place] [address], [place] [address] 24 Jun, 2014 [facility] [address] [id number] [address] [place] [address] Jun, 2014 [facility] [address] [id number] [address] [place] [address], [place] [address] Jun, 2014 [facility] [address] [id number] [address] [place] [address] Jun, 2014 [facility] [address] [id number] [address] [place] [address] Jun, 2014 [facility] [address] [id number] [address] [place] [address], [place] [address] Jun, 2014 [facility] [address] [id number] [address] [place] [address], [place] [address] Jun, 2014 [facility] [address] [id number] [address] [place] [address], [place] [address] Jun, 2014 [facility] [address] [id number] [address] [place] [address], [place] [address] Jun, 2014 [facility] [address] [id number] [address] [place] [address], [place] [address] Jun, 2014 [facility] [address] [id number] [address] [place] [address], [place] [address] Jun, 2014 [facility] [address] [id number] [address] [place] [address], [place] [address] Jun, 2014 [facility] [address] [id number] [address] [place] [address], [place] [address] Jun, 2014 [facility] [address] [id number] [address] [place] [address], [place] [address] Jun, 2014 [facility] [address] [id number] [address] [place] [address], [place] [address] Jun, 2014 [facility] [address] [id number] [address] [place] [address], [place] [address] Jun, 2014 [facility] [address] [id number] [address] [place] [address], [place] [address] Jun, 2014 [facility] [address] [id number] [address] [place] [address], [place] [address] Jun, 2014 [facility] [address] [id number] [address] [place] [address], [place] [address] Jun, 2014 [facility] [address] [id number] [address] [place] [address], [place] [address] 03 Fe2014 [facility] [address] [id number] [address] [place] [address], [place] [address] May, [facility] [address] [id number] [address] [place] [address], [place] [address] May, [facility] [address] [id number] [address] [place] [address], [place] [address] May, [facility] [address] [id number] [address] [place] [address], [place] [address] May, [facility] [address] [id number] [address] [place] [address], [place] [address] May, [facility] [address] [id number] [address] [place] [address], [place] [address] May, [facility] [address] [id number] [address] [place] [address], [place] [address] May, [facility] [address] [id number] [address] [place] [address], [place] [address] May, [facility] [address] [id number] [address] [place] [address], [place] [address] May, [facility] [address] [id number] [address] [place] [address], [place] [address] May, [facility] [address] [id number] [address] [place] [address], [place] [address] May, [facility] [address] [id number] [address] [place] [address], [place] [address] May, [facility] [address] [id number] [address] [place] [address], [place] [address] May, [facility] [address] [id number] [address] [place] [address], [place] [address] May, [facility] [address] [id number] [address] [place] [address], [place] [address] May, [facility] [address] [id number] [address] [place] [address], [place] [address] May, [facility] [address] [id number] [address] [place] [address], [place] [address] May, [facility] [address] [id number] [address] [place] [address], [place] [address] Apr, [facility] [address] [id number] [address] [place] [address], [place] [address] Apr, [facility] [address] [id number] [address] [place] [address], [place] [address] Apr, [facility] [address] [id number] [address] [place] [address], [place] [address] Apr, [facility] [address] [id number] [address] [place] [address], [place] [address] Mar, [facility] [address] [id number] [address] [place] [address], [place] [address] Mar, [facility] [address] [id number] [address] [place] [address], [place] [address] Mar, [facility] [address] [id number] [address] [place] [address], [place] [address] Mar, [facility] [address] [id number] [address] [place] [address], [place] [address] Mar, [facility] [address] [id number] [address] [place] [address], [place] [address] Mar, [facility] [address] [id number] [address] [place] [address], [place] [address] 16 Feb, 2014 [facility] [address] [id number] [address] [place] [address], [place] [address] Feb, [facility] [address] [id number] [address] [place] [address], [place] [address] 18 Jan, 2014 [facility] [address] [id number] [address] [place] [address], [place] [address] 18 Jan, 2014 [facility] [address] [id number] [address] [place] [address], [place] [address] 18 Jan, 2013 [facility] [address] [id number] [address] [place] [address], [place] [address] 18 Jan, 2013 [facility] [address] [id number] [address] [place] [address], [place] [address] Jan, 2013 [facility] [address] [id number] [address] [place] [address], [place] [address] Jan, 2013 [facility] [address] [id number] [address] [place] [address], [place] [id number] Jan, 2013 [facility] [address] [id number] [address] [place] [address], [place] [address] Jan, [facility] [address] [id number] [address] [place] [address], [place] [address] Jan, [facility] [address] [id number] [address] [place] [address], [place] [address] Jan, [facility] [address] [id number] [address] [place] [address], [place] [address] Dec, [facility] [address] [id number] [address] [place] [address], [place] [address] Dec, [facility] [address] [id number] [address] [place] [address], [place] [address] Dec, [facility] [address] [id number] [address] [place] [address], [place] [address] Dec, [facility] [address] [id number] [address] [place] [address], [place] [address] Dec, [facility] [address] [id number] [address] [place] [address], [place] [address] Dec, [facility] [address] [id number] [address] [place] [address], [place] [address] Dec, [facility] [address] [id number] [address] [place] [address], [place] [address] Dec, [facility] [address] [id number] [address] [place] [address], [place] [address] Dec, [facility] [address] [id number] [address] [place] [address], [place] [address] Nov, [facility] [address] [id number] [address] [place] [address], [place] [address] Nov, [facility] [address] [id number] [address] [place] [address], [place] [address] Nov, [facility] [address] [id number] [address] [place] [address], [place] [address] Nov, [facility] [address] [id number] [address] [place] [address], [place] [address] Nov, [facility] [address] [id number] [address] [place] [address], [place] [address] Nov, [facility] [address] [id number] [address] [place] [address], [place] [address] Nov, [facility] [address] [id number] [address] [place] [address], [place] [address] Nov, [facility] [address] [id number] [address] [place] [address], [place] [address] Nov, [facility] [address] [id number] [address] [place] [address], [place] [address] Nov, [facility] [address] [id number] [address] [place] [address], [place] [address] Nov, [facility] [address] [id number] [address] [place] [address], [place] [address] Nov, [facility] [address] [id number] [address] [place] [address], [place] [address] Nov, [facility] [address] [id number] [address] [place] [address], [place] [address] Nov, [facility] [address] [id number] [address] [place] [address], [place] [address] Nov, [facility] [address] [id number] [facility] [place] [address] Oct, [facility] [address] [id number] [address] [place] [address], [place] [address] Oct, [facility] [address] [id number] [address] [place] [address], [place] [address] Oct, [facility] [address] [id number] [address] [place] [address], [place] [address] Oct, [facility] [address] [id number] [address] [place] [address], [place] [address] Oct, [facility] [address] [id number] [address] [place] [address], [place] [address] Oct, [facility] [address] [id number] [address] [place] [address], [place] [address] Oct, [facility] [address] [id number] [address] [place] [address], [place] [address] Oct, [facility] [address] [id number] [address] [place] [address], [place] [address] Oct, [facility] [address] [id number] [address] [place] [address], [place] [address] Oct, [facility] [address] [id number] [address] [place] [address], [place] [address] Oct, [facility] [address] [id number] [address] [place] [address], [place] [address] Oct, [facility] [address] [id number] [address] [place] [address], [place] [address] Oct, [facility] [address] [id number] [address] [place] [address], [place] [address] Oct, [facility] [address] [id number] [address] [place] [address], [place] [address] September, [facility] [address] [id number] [address] [place] [address], [place] [address] September, [facility] [address] [id number] [address] [place] [address], [place] [address] September, [facility] [address] [id number] [address] [place] [address], [place] [address] September, [facility] [address] [id number] [address] [place] [address], [place] [address] September, [facility] [address] [id number] [address] [place] [address], [place] [address] September, [facility] [address] [id number] [address] [place] [address], [place] [address] September, [facility] [address] [id number] [address] [place] [address], [place] [address] September, [facility] [address] [id number] [address] [place] [address], [place] [address] September, [facility] [address] [id number] [address] [place] [address], [place] [address] September, [facility] [address] [id number] [address] [place] [address], [place] [address] September, [facility] [address] [id number] [address] [place] [address], [place] [address] September, [facility] [address] [id number] [address] [place] [address], [place] [address] September, [facility] [address] [id number] [address] [place] [address], [place] [address] Aug, [facility] [address] [id number] [address] [place] [address], [place] [address] Aug, [facility] [address] [id number] [address] [place] [address], [place] [address] Aug, [facility] [address] [id number] [address] [place] [address], [place] [address] Aug, [facility] [address] [id number] [facility] [place] [address] Aug, [facility] [address] [id number] [facility] [place] [address] Aug, [facility] [address] [id number] [address] [place] [address], [place] [address] Aug, [facility] [address] [id number] [address] [place] [address], [place] [address] Aug, [facility] [address] [id number] [address] [place] [address], [place] [address] Aug, [facility] [address] [id number] [address] [place] [address], [place] [address] Aug, [facility] [address] [id number] [address] [place] [address], [place] [address] Jul, [facility] [address] [id number] [address] [place] [address], [place] [address] Jul, [facility] [address] [id number] [address] [place] [address], [place] [address] Jul, [facility] [address] [id number] [address] [place] [address], [place] [address] Jul, [facility] [address] [id number] [address] [place] [address], [place] [address] Jul, [facility] [address] [id number] [address] [place] [address], [place] [address] Jul, [facility] [address] [id number] [address] [place] [address], [place] [address] Jul, [facility] [address] [id number] [address] [place] [address], [place] [address] Jul, [facility] [address] [id number] [address] [place] [address], [place] [address] Jun, [facility] [address] [id number] [address] [place] [address], [place] [address] 27 Jun, 2013 [facility] [address] [id number] [address] [place] [address], [place] [address] 14 Jun, 2013 [facility] [address] [id number] [address] [place] [address], [place] [address] 14 Jun, 2013 [facility] [address] [id number] [address] [place] [address], [place] [address] 13 Jun, 2013 [facility] [address] [id number] [address] [place] [address], [place] [address] 13 Jun, 2013 [facility] [address] [id number] [address] [place] [address], [place] [address] 06 Jun, 2013 [facility] [address] [id number] [address] [place] [address], [place] [address] 06 Jun, 2013 [facility] [address] [id number] [address] [place] [address], [place] [address] 04 Jun, 2013 [facility] [address] [id number] [address] [place] [address], [place] [address] Jun, [facility] [address] [id number] [address] [place] [address], [place] [address] Jun, [facility] [address] [id number] [address] [place] [address], [place] [address] Jun, [facility] [address] [id number] [address] [place] [address], [place] [address] Jun, [facility] [address] [id number] [address] [place] [address], [place] [address] Jun, [facility] [address] [id number] [address] [place] [address], [place] [address] May, [facility] [address] [id number] [address] [place] [address], [place] [address] May, [facility] [address] [id number] [address] [place] [address], [place] [address] May, [facility] [address] [id number] [address] [place] [address], [place] [address] May, [facility] [address] [id number] [address] [place] [address], [place] [address] May, [facility] [address] [id number] [address] [place] [address], [place] [address] May, [facility] [address] [id number] [address] [place] [address], [place] [address] May, [facility] [address] [id number] [address] [place] [address], [place] [address] May, [facility] [address] [id number] [address] [place] [address], [place] [address] May, [facility] [address] [id number] [address] [place] [address], [place] [address] May, [facility] [address] [id number] [address] [place] [address], [place] [address] May, [facility] [address] [id number] [address] [place] [address], [place] [address] May, [facility] [address] [id number] [address] [place] [address], [place] [address] May, [facility] [address] [id number] [address] [place] [address], [place] [address] May, [facility] [address] [id number] [address] [place] [address], [place] [address] May, [facility] [address] [id number] [address] [place] [address], [place] [address] May, [facility] [address] [id number] [address] [place] [address], [place] [address] May, [facility] [address] [id number] [address] [place] [address], [place] [address] May, [facility] [address] [id number] [address] [place] [address], [place] [address] May, [facility] [address] [id number] [address] [place] [address], [place] [address] May, [facility] [address] [id number] [address] [place] [address], [place] [address] Apr, [facility] [address] [id number] [address] [place] [address], [place] [address] Apr, [facility] [address] [id number] [address] [place] [address], [place] [address] Apr, [facility] [address] [id number] [address] [place] [address], [place] [address] Apr, [facility] [address] [id number] [address] [place] [address], [place] [address] Apr, [facility] [address] [id number] [address] [place] [address], [place] [address] Apr, [facility] [address] [id number] [address] [place] [address], [place] [address] Apr, [facility] [address] [id number] [address] [place] [address], [place] [address] Apr, [facility] [address] [id number] [address] [place] [address], [place] [address] Apr, [facility] [address] [id number] [address] [place] [address], [place] [address] Apr, [facility] [address] [id number] [address] [place] [address], [place] [address] Apr, [facility] [address] [id number] [address] [place] [address], [place] [address] Apr, [facility] [address] [id number] [address] [place] [address], [place] [address] Apr, [facility] [address] [id number] [address] [place] [address], [place] [address] Apr, [facility] [address] [id number] [address] [place] [address], [place] [address] Apr, [facility] [address] [id number] [address] [place] [address], [place] [address] Apr, [facility] [address] [id number] [address] [place] [address], [place] [address] Apr, [facility] [address] [id number] [address] [place] [address], [place] [address] Apr, [facility] [address] [id number] [address] [place] [address], [place] [address] Mar, [facility] [address] [id number] [address] [place] [address], [place] [address] Mar, [facility] [address] [id number] [address] [place] [address], [place] [address] Mar, [facility] [address] [id number] [address] [place] [address] Mar, [facility] [address] [id number] [address] [place] [address], [place] [address] Mar, [facility] [address] [id number] [address] [place] [address] Mar, [facility] [address] [id number] [address] [place] [address] Mar, [facility] [address] [id number] [address] [place] [address] Mar, [facility] [address] [id number] [address] [place] [address], [place] [address] Mar, [facility] [address] [id number] [address] [place] [address] Mar, [facility] [address] [id number] [address] [place] [address] Mar, [facility] [address] [id number] [address] [place] [address] Feb, [facility] [address] [id number] [address] [place] [address], [place] [address] Feb, [facility] [address] [id number] [address] [place] [address], [place] [address] Feb, [facility] [address] [id number] [address] [place] [address], [place] [address] Feb, [facility] [address] [id number] [address] [place] [address], [place] [address] Feb, [facility] [address] [id number] [address] [place] [address], [place] [address] Dec, [facility] [address] [id number] [address] [place] [address], [place] [address] Dec, [facility] [address] [id number] [address] [place] [address], [place] [address] Dec, [facility] [address] [id number] [address] [place] [address], [place] [address] Dec, [facility] [address] [id number] [address] [place] [address], [place] [address] Nov, [facility] [address] [id number] [address] [place] [address], [place] [address] Nov, [facility] [address] [id number] [address] [place] [address], [place] [address] Nov, [facility] [address] [id number] [address] [place] [address], [place] [address] Nov, [facility] [address] [id number] [address] [place] [address], [place] [address] Nov, [facility] [address] [id number] [address] [place] [address], [place] [address] Nov, [facility] [address] [id number] [address] [place] [address], [place] [address] Oct, [facility] [address] [id number] [address] [place] [address], [place] [address] Oct, [facility] [address] [id number] [address] [place] [address], [place] [address] Oct, [facility] [address] [id number] [address] [place] [address], [place] [address] Oct, [facility] [address] [id number] [address] [place] [address], [place] [address] September, [facility] [address] [id number] [address] [place] [address], [place] [address] September, [facility] [address] [id number] [address] [place] [address], [place] [address] September, [facility] [address] [id number] [address] [place] [address], [place] [address] September, [facility] [address] [id number] [address] [place] [address], [place] [address] September, [facility] [address] [id number] [address] [place] [address], [place] [address] September, [facility] [address] [id number] [address] [place] [address], [place] [address] September, [facility] [address] [id number] [address] [place] [address], [place] [address] September, [facility] [address] [id number] [address] [place] [address], [place] [address] Aug, [facility] [address] [id number] [address] [place] [address], [place] [address] Aug, [facility] [address] [id number] [address] [place] [address], [place] [address] Jul, [facility] [address] [id number] [address] [place] [address], [place] [address] Jun, [facility] [address] [id number] [address] [place] [address], [place] [address] May, [facility] [address] [id number] [address] [place] [address], [place] [address] May, [facility] [address] [id number] [address] [place] [address], [place] [address] May, [facility] [address] [id number] [address] [place] [address], [place] [address] May, [facility] [address] [id number] [address] [place] [address], [place] [address] Apr, [facility] [address] [id number] [address] [place] [address], [place] [address] Apr, [facility] [address] [id number] [address] [place] [address], [place] [address] Apr, [facility] [address] [id number] [address] [place] [address], [place] [address] Apr, [facility] [address] [id number] [address] [place] [address], [place] [address] Apr, [facility] [address] [id number] [address] [place] [address], [place] [address] Apr, [facility] [address] [id number] [address] [place] [address], [place] [address] Apr, [facility] [address] [id number] [address] [place] [address], [place] [address] Apr, [facility] [address] [id number] [address] [place] [address], [place] [address] Apr, [facility] [address] [id number] [address] [place] [address], [place] [address] Mar, [facility] [address] [id number] [address] [place] [address], [place] [address] 30 Mar, 2012 [facility] [address] [id number] [address] [place] [address], [place] [address] Mar, [facility] [address] [id number] [address] [place] [address], [place] [address] 27 Mar, 2012 [facility] [address] [id number] [address] [place] [address], [place] [address] 16 Mar, 2012 [facility] [address] [id number] [address] [place] [address], [place] [address] 16 Mar, 2012 [facility] [address] [id number] [address] [place] [address], [place] [address] 16 Mar, 2012 [facility] [address] [id number] [address] [place] [address], [place] [address] 16 Mar, 2012 [facility] [address] [id number] [address] [place] [address], [place] [address] 16 Mar, 2012 [facility] [address] [id number] [address] [place] [address], [place] [address] 16 Mar, 2012 [facility] [address] [id number] [address] [place] [address], [place] [address] 14 Mar, 2012 [facility] [address] [id number] [address] [place] [address], [place] [address] 14 Mar, 2012 [facility] [address] [id number] [address] [place] [address], [place] [address] 13 Mar, 2012 [facility] [address] [id number] [address] [place] [address], [place] [address] 13 Mar, 2012 [facility] [address] [id number] [address] [place] [address], [place] [address] 06 Mar, 2012 [facility] [address] [id number] [address] [place] [address], [place] [address] Mar, [facility] [address] [id number] [address] [place] [address], [place] [address] 02 Mar, 2012 [facility] [address] [id number] [address] [place] [address], [place] [address] Mar, [facility] [address] [id number] [address] [place] [address], [place] [address] Mar, [facility] [address] [id number] [address] [place] [address], [place] [address] Feb, [facility] [address] [id number] [address] [place] [address], [place] [address] Feb, [facility] [address] [id number] [address] [place] [address], [place] [address] Feb, [facility] [address] [id number] [address] [place] [address], [place] [address] Feb, [facility] [address] [id number] [address] [place] [address], [place] [address] Jan, [facility] [address] [id number] [address] [place] [address], [place] [address] Jan, [facility] [address] [id number] [address] [place] [address], [place] [address] Dec, [facility] [address] [id number] [address] [place] [address], [place] [address] Dec, [facility] [address] [id number] [address] [place] [address], [place] [address] Dec, [facility] [address] [id number] [address] [place] [address], [place] [address] Nov, [facility] [address] [id number] [address] [place] [address], [place] [address] Nov, [facility] [address] [id number] [address] [place] [address], [place] [address] Oct, [facility] [address] [id number] [address] [place] [address], [place] [address] Oct, [facility] [address] [id number] [address] [place] [address], [place] [address] September, [facility] [address] [id number] [address] [place] [address], [place] [address] September, [facility] [address] [id number] [address] [place] [address], [place] [address] September, [facility] [address] [id number] [address] [place] [address], [place] [address] September, [facility] [address] [id number] [address] [place] [address], [place] [address] Aug, [facility] [address] [id number] [address] [place] [address], [place] [address] Jul, [facility] [address] [id number] [address] [place] [address], [place] [address] Jul, [facility] [address] [id number] [address] [place] [address], [place] [address] Jun, [facility] [address] [id number] [address] [place] [address], [place] [address] Jun, [facility] [address] [id number] [address] [place] [address], [place] [address] Jun, [facility] [address] [id number] [address] [place] [address], [place] [address] May, [facility] [address] [id number] [address] [place] [address], [place] [address] May, [facility] [address] [id number] [address] [place] [address], [place] [address] May, [facility] [address] [id number] [address] [place] [address], [place] [address] May, [facility] [address] [id number] [address] [place] [address], [place] [address] Apr, [facility] [address] [id number] [address] [place] [address], [place] [address] Apr, [facility] [address] [id number] [address] [place] [address], [place] [address] Apr, [facility] [address] [id number] [address] [place] [address], [place] [address] Mar, [facility] [address] [id number] [address] [place] [address], [place] [address] Mar, [facility] [address] [id number] [address] [place] [address], [place] [address] Mar, [facility] [address] [id number] [address] [place] [address], [place] [address] Mar, [facility] [address] [id number] [address] [place] [address], [place] [address] Mar, [facility] [address] [id number] [address] [place] [address], [place] [address] Feb, [facility] [address] [id number] [address] [place] [address], [place] [address] Feb, [facility] [address] [id number] [address] [place] [address], [place] [address] Feb, [facility] [address] [id number] [address] [place] [address], [place] [address] Feb, [facility] [address] [id number] [address] [place] [address], [place] [address] Feb, [facility] [address] [id number] [address] [place] [address], [place] [address] Feb, [facility] [address] [address] [id number] [address] [place] [address], [place] [address] Feb, [facility] [address] [id number] [address] [place] [address], [place] [address] Apr, [facility] [address] [id number] [address] [place] [address], [place] [address] Apr, [facility] [address] [id number] [address] [place] [address], [place] [address] 15 Apr, 2010 [facility] [address] [id number] [address] [place] [address], [place] [address] 15 Apr, 2010 [facility] [address] [id number] [address] [place] [address] [address] Apr, [facility] [address] [id number] [address] [place] [address], [place] [address] Apr, [facility] [address] [id number] [address] [place] [address], [place] [address] Mar, [facility] [address] [id number] [address] [place] [address], [place] [address] Mar, [facility] [address] [id number] [address] [place] [address], [place] [address] 17 Mar, 2010 [facility] [address] [id number] [address] [place] [address], [place] [address] 16 Mar, 2010 [facility] [address] [id number] [address] [place] [address], [place] [address] Mar, [facility] [address] [id number] [address] [place] [address], [place] [address] Mar, [facility] [address] [id number] [address] [place] [id number] Mar, [facility] [address] [id number] [address] [place] [address], [place] [address] Mar, [facility] [address] [id number] [address] [place] [id number] Feb, [facility] [address] [id number] [address] [place] [id number] Feb, [facility] [address] [id number] [address] [place] [address] Dec, [facility] [address] [id number] [address] [place] [id number] Jun, [facility] [address] [id number] [address] [place] [id number] Jun, [facility] [address] [id number] [address] [place] [id number] May, [facility] [address] [id number] [address] [place] [id number] Feb, [facility] [address] [id number] [address] [place] [id number] Feb, [facility] [address] [id number] [address] [place] [id number] Feb, [facility] [address] [facility] [id number] [address] [place] [id number] Feb, [facility] [address] [facility] [id number] [address] [place] [address] Feb, [facility] [address] [facility] [id number] [address] [place] [id number] Feb, [facility] [address] [facility] [id number] [address] [place] [phone] Feb, [facility] [address] [facility] [id number] [address] [place] [id number] Jul, [facility] [address] [facility] [id number] [address] [place] [id number] Jun, IMMUNIZATIONS No Known Immunizations SOCIAL HISTORY [...] 08/2014 Hospitalization History Rt hand post op infection-[facility] 7 Hospitalization History cellulitus Right elbow-[facility] 12/09/16
--- OUTSIDE RECORDS SUMMARY | 2019-10-27 22:14 | XMS REPORT ---
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 depressive disorder, r ecurrent episode, unspecified 296.30 and Anxiety state 300.00 [facility] [address] [place] [id number] [address] [place] [address] Oct, Spider bite 989.5 [facility] [address] [place] [id number] [address] [place] [address] Oct, [facility] [address] [place] [id number] [address] [place] [address] September, Contact dermatitis 692.9 and Sciatica 724.3 [facility] [address] [facility] [id number] [address] [place] [address] September, [facility] [address] [place] [id number] [address] [place] [phone] September, Generalized anxiety disorder 300.02 ; Posttraumatic stress disorder 309.81 and Depression, major, recurrent, in partial remission 296.35 [facility] [address] [place] [id number] [address] [place] [address] 05 May, 2015 Cellulitis 682.9 [facility] [address] [id number] [address] [place] [address], [place] [address] September, [facility] [address] [id number] [address] [place] [address], [place] [address] September, [facility] [address] [id number] [address] [place] [address], [place] [address] Aug, [facility] [address] [id number] [address] [place] [address], [place] [address] 29 Aug, 2014 [facility] [address] [id number] [address] [place] [address], [place] [address] Aug, [facility] [address] [id number] [address] [place] [address], [place] [address] Aug, [facility] [address] [id number] [address] [place] [address], [place] [address] Jul, [facility] [address] [id number] [address] [place] [address], [place] [address] Jul, [facility] [address] [id number] [address] [place] [address], [place] [address] Jul, [facility] [address] [id number] [address] [place] [phone] Jul, [facility] [address] [id number] [address] [place] [address], [place] [address] 24 Jul, 2014 [facility] [address] [id number] [address] [place] [address] Jul, [facility] [address] [id number] [address] [place] [address], [place] [address] Jul, [facility] [address] [id number] [address] [place] [address], [place] [address] Jul, [facility] [address] [id number] [address] [place] [address] Jul, [facility] [address] [id number] [address] [place] [id number] 05 Jul, 2014 [facility] [address] [id number] [address] [place] [address], [place] [address] 05 Jul, 2014 [facility] [address] [id number] [address] [place] [address], [place] [address] Jul, [facility] [address] [id number] [address] [place] [address], [place] [address] Jul, 2014 [facility] [address] [id number] [address] [place] [address], [place] [address] Jul, [facility] [address] [id number] [address] [place] [address], [place] [address] Jul, [facility] [address] [id number] [address] [place] [address], [place] [address] Jun, [facility] [address] [id number] [address] [place] [address], [place] [address] Jun, 2014 [facility] [address] [id number] [address] [place] [address], [place] [address] Jun, 2014 [facility] [address] [id number] [address] [place] [address], [place] [address] Jun, [facility] [address] [id number] [address] [place] [address], [place] [address] Jun, [facility] [address] [id number] [address] [place] [address], [place] [address] 24 Jun, 2014 [facility] [address] [id number] [address] [place] [address], [place] [address] 23 Jun, 2014 [facility] [address] [id number] [address] [place] [address], [place] [address] Jun, 2014 [facility] [address] [id number] [address] [place] [address], [place] [address] Jun, 2014 [facility] [address] [id number] [address] [place] [address], [place] [address] Jun, [facility] [address] [id number] [address] [place] [address], [place] [address] Jun, 2014 [facility] [address] [id number] [address] [place] [address], [place] [address] Jun, 2014 [facility] [address] [id number] [address] [place] [address], [place] [address] Jun, 2014 [facility] [address] [id number] [address] [place] [address], [place] [address] Jun, 2014 [facility] [address] [id number] [address] [place] [address], [place] [address] Jun, 2014 [facility] [address] [id number] [address] [place] [address], [place] [address] Jun, 2014 [facility] [address] [id number] [address] [place] [address], [place] [address] Jun, 2014 [facility] [address] [id number] [address] [place] [address], [place] [address] Jun, 2014 [facility] [address] [id number] [address] [place] [address], [place] [address] Jun, 2014 [facility] [address] [id number] [address] [place] [address], [place] [address] Jun, 2014 [facility] [address] [id number] [address] [place] [address], [place] [address] Jun, 2014 [facility] [address] [id number] [address] [place] [address], [place] [address] Jun, 2014 [facility] [address] [id number] [address] [place] [address], [place] [address] Jun, 2014 [facility] [address] [id number] [address] [place] [address], [place] [address] Jun, 2014 [facility] [address] [id number] [address] [place] [address] Jun, [facility] [address] [id number] [address] [place] [address], [place] [address] May, [facility] [address] [id number] [address] [place] [address], [place] [address] May, [facility] [address] [id number] [address] [place] [address], [place] [address] May, [facility] [address] [id number] [address] [place] [address], [place] [address] May, [facility] [address] [id number] [address] [place] [address], [place] [address] May, [facility] [address] [id number] [address] [place] [address], [place] [address] May, [facility] [address] [id number] [address] [address], [place] [address] May, [facility] [address] [id number] [address] [place] [address], [place] [address] May, [facility] [address] [id number] [address] [place] [address], [place] [address] May, [facility] [address] [id number] [address] [place] [address], [place] [address] May, [facility] [address] [id number] [address] [place] [address], [place] [address] May, [facility] [address] [id number] [address] [place] [address] May, [facility] [address] [id number] [address] [place] [address], [place] [address] May, [facility] [address] [id number] [address] [place] [address], [place] [address] May, [facility] [address] [id number] [address] [place] [address], [place] [address] May, [facility] [address] [id number] [address] [place] [address] May, [facility] [address] [id number] [address] [place] [address], [place] [address] May, [facility] [address] [id number] [address] [place] [address], [place] [address] Apr, [facility] [address] [id number] [address] [address], [place] [address] Apr, [facility] [address] [id number] [address] [place] [address], [place] [address] Apr, [facility] [address] [id number] [address] [place] [address], [place] [address] Apr, [facility] [address] [id number] [address] [address], [place] [address] Mar, [facility] [address] [id number] [address] [place] [address], [place] [address] Mar, [facility] [address] [id number] [address] [place] [address], [place] [address] Mar, [facility] [address] [id number] [address] [place] [address], [place] [address] Mar, [facility] [address] [id number] [address] [place] [address], [place] [address] Mar, [facility] [address] [id number] [address] [address], [place] [address] Mar, [facility] [address] [id number] [address] [address], [place] [address] 16 Feb, 2014 [facility] [address] [id number] [address] [address], [place] [address] Feb, [facility] [address] [id number] [address] [place] [address], [place] [address] 18 Jan, 2014 [facility] [address] [id number] [address] [place] [address], [place] [address] 18 Jan, 2014 [facility] [address] [id number] [address] [place] [address], [place] [address] 18 Jan, 2013 [facility] [address] [id number] [address] [address], [place] [address] 18 Jan, 2013 [facility] [address] [id number] [address] [place] [address], [place] [address] Jan, 2013 [facility] [address] [id number] [address] [place] [address], [place] [address] Jan, 2013 [facility] [address] [id number] [address] [place] [address], [place] [id number] Jan, 2013 [facility] [address] [id number] [address] [place] [address], [place] [address] Jan, 2013 [facility] [address] [id number] [address] [place] [address], [place] [address] Jan, 2013 [facility] [address] [id number] [address] [place] [address], [place] [address] Jan, 2013 [facility] [address] [id number] [address] [place] [address], [place] [address] Dec, [facility] [address] [id number] [address] [place] [address], [place] [address] Dec, [facility] [address] [id number] [address] [place] [address], [place] [address] Dec, [facility] [address] [id number] [address] [place] [address], [place] [address] Dec, [facility] [address] [id number] [address] [place] [address], [place] [address] Dec, [facility] [address] [id number] [address] [place] [address], [place] [address] Dec, [facility] [address] [id number] [address] [place] [address], [place] [address] Dec, [facility] [address] [id number] [address] [place] [address], [place] [address] Dec, [facility] [address] [id number] [address] [place] [address], [place] [address] Dec, [facility] [address] [id number] [address] [place] [address], [place] [address] Nov, [facility] [address] [id number] [address] [place] [address], [place] [address] Nov, [facility] [address] [id number] [address] [place] [address], [place] [address] Nov, [facility] [address] [id number] [address] [address], [place] [address] Nov, [facility] [address] [id number] [address] [address], [place] [address] Nov, [facility] [address] [id number] [address] [place] [address], [place] [address] Nov, [facility] [address] [id number] [address] [address], [place] [address] Nov, [facility] [address] [id number] [address] [address], [place] [address] Nov, [facility] [address] [id number] [address] [place] [address], [place] [address] Nov, [facility] [address] [id number] [address] [address], [place] [address] Nov, [facility] [address] [id number] [address] [place] [address], [place] [address] Nov, [facility] [address] [id number] [address] [place] [address], [place] [address] Nov, [facility] [address] [id number] [address] [address], [place] [address] Nov, [facility] [address] [id number] [address] [place] [address], [place] [address] Nov, [facility] [address] [id number] [address] [place] [address], [place] [address] Nov, [facility] [address] [id number] [facility] [place] [address] Oct, [facility] [address] [id number] [address] [place] [address], [place] [address] Oct, [facility] [address] [id number] [address] [place] [address], [place] [address] Oct, [facility] [address] [id number] [address] [place] [address], [place] [address] Oct, [facility] [address] [id number] [address] [place] [address], [place] [address] Oct, [facility] [address] [id number] [address] [place] [address], [place] [address] Oct, [facility] [address] [id number] [address] [place] [address], [place] [address] Oct, [facility] [address] [id number] [address] [place] [address], [place] [address] Oct, [facility] [address] [id number] [address] [place] [address], [place] [address] Oct, [facility] [address] [address] [id number] [address] [place] [address], [place] [address] Oct, [facility] [place] [facility] [address] [id number] [address] [place] [address], [place] [address] Oct, [facility] [place] [facility] [address] [id number] [address] [place] [address], [place] [address] Oct, [facility] [place] [facility] [address] [id number] [address] [place] [address], [place] [address] Oct, [facility] [place] [facility] [address] [id number] [address] [place] [address], [place] [address] Oct, [facility] [place] [facility] [address] [id number] [address] [place] [address], [place] [address] September, [facility] [place] [facility] [address] [id number] [facility] [place] [address] September, [facility] [address] [id number] [address] [place] [address], [place] [address] September, [facility] [address] [id number] [address] [place] [address], [place] [address] September, [facility] [address] [id number] [address] [place] [address], [place] [address] September, [facility] [address] [id number] [address] [place] [address], [place] [address] September, [facility] [address] [id number] [address] [place] [address], [place] [address] September, [facility] [address] [id number] [address] [place] [address], [place] [address] September, [facility] [address] [id number] [address] [place] [address], [place] [address] September, [facility] [address] [id number] [address] [place] [address], [place] [address] September, [facility] [address] [id number] [address] [place] [address], [place] [address] September, [facility] [address] [id number] [address] [place] [address], [place] [address] September, [facility] [address] [id number] [address] [place] [address], [place] [address] September, [facility] [address] [id number] [address] [place] [address], [place] [address] Aug, [facility] [place] [facility] [address] [id number] [address] [place] [address], [place] [address] Aug, [facility] [address] [id number] [address] [place] [address], [place] [address] Aug, [facility] [place] [facility] [address] [id number] [address] [place] [address], [place] [address] Aug, [facility] [address] [id number] [facility] [place] [address] Aug, [facility] [address] [id number] [facility] [place] [address] Aug, [facility] [address] [id number] [address] [place] [address], [place] [address] Aug, [facility] [address] [id number] [address] [place] [address], [place] [address] Aug, [facility] [address] [id number] [address] [place] [address], [place] [address] Aug, [facility] [address] [id number] [address] [place] [address], [place] [address] Aug, [facility] [address] [id number] [address] [place] [address], [place] [address] Jul, [facility] [address] [id number] [address] [place] [address], [place] [address] Jul, [facility] [address] [id number] [address] [place] [address], [place] [address] Jul, [facility] [address] [id number] [address] [place] [address], [place] [address] Jul, [facility] [address] [id number] [address] [place] [address], [place] [address] Jul, [facility] [place] [facility] [address] [id number] [address] [place] [address], [place] [address] Jul, [facility] [place] [facility] [address] [id number] [address] [place] [address], [place] [address] Jul, [facility] [place] [facility] [address] [id number] [address] [place] [address], [place] [address] Jul, [facility] [place] [address] [id number] [address] [place] [address], [place] [address] Jun, [facility] [place] [facility] [address] [id number] [address] [address] 27 Jun, 2013 [facility] [address] [id number] [address] [place] [address], [place] [address] 14 Jun, 2013 [facility] [place] [address] [id number] [address] [place] [address], [place] [address] 14 Jun, 2013 [facility] [place] [facility] [address] [id number] [address] [place] [address], [place] [address] Jun, 2013 [facility] [place] [facility] [address] [id number] [address] [place] [address], [place] [address] Jun, [facility] [place] [facility] [address] [id number] [address] [place] [address], [place] [address] Jun, [facility] [place] [address] [id number] [address] [place] [address], [place] [address] 06 Jun, 2013 [facility] [place] [facility] [address] [id number] [address] [place] [address], [place] [address] Jun, [facility] [place] [facility] [address] [id number] [address] [place] [address], [place] [address] Jun, [facility] [place] [facility] [address] [id number] [address] [place] [address], [place] [address] Jun, [facility] [place] [facility] [address] [id number] [address] [place] [address], [place] [address] Jun, [facility] [place] [address] [id number] [address] [place] [address] Jun, [facility] [place] [facility] [address] [id number] [address] [place] [address], [place] [address] Jun, [facility] [place] [facility] [address] [id number] [address] [place] [address], [place] [address] May, [facility] [place] [address] [id number] [address] [place] [address], [place] [address] May, [facility] [place] [facility] [address] [id number] [address] [place] [address] May, [facility] [address] [id number] [address] [place] [address], [place] [address] May, [facility] [address] [id number] [address] [place] [address], [place] [address] May, [facility] [address] [id number] [address] [place] [address], [place] [address] May, [facility] [address] [id number] [address] [place] [address], [place] [address] May, [facility] [address] [id number] [address] [place] [address], [place] [address] May, [facility] [address] [id number] [address] [place] [address], [place] [address] May, [facility] [address] [id number] [address] [place] [address], [place] [address] May, [facility] [address] [id number] [address] [place] [address], [place] [address] May, [facility] [address] [id number] [address] [place] [address], [place] [address] May, [facility] [address] [id number] [address] [place] [address], [place] [address] May, [facility] [address] [id number] [address] [place] [address], [place] [address] May, [facility] [address] [id number] [address] [place] [address], [place] [address] May, [facility] [address] [id number] [address] [place] [address], [place] [address] May, [facility] [address] [id number] [address] [place] [address], [place] [address] May, [facility] [address] [id number] [address] [place] [address], [place] [address] May, [facility] [place] [facility] [address] [id number] [address] [place] [address], [place] [address] May, [facility] [address] [id number] [address] [place] [address], [place] [address] May, [facility] [address] [id number] [address] [place] [address], [place] [address] Apr, [facility] [address] [id number] [address] [place] [address], [place] [address] Apr, [facility] [address] [id number] [address] [place] [address], [place] [address] Apr, [facility] [address] [id number] [address] [place] [address], [place] [address] Apr, [facility] [address] [id number] [address] [place] [address], [place] [address] Apr, [facility] [address] [id number] [address] [place] [address], [place] [address] Apr, [facility] [address] [id number] [address] [place] [address], [place] [address] Apr, [facility] [address] [id number] [address] [place] [address], [place] [address] Apr, [facility] [address] [id number] [address] [place] [address], [place] [address] Apr, [facility] [address] [id number] [address] [place] [address], [place] [address] Apr, [facility] [address] [id number] [address] [place] [address], [place] [address] Apr, [facility] [address] [id number] [address] [place] [address], [place] [address] Apr, [facility] [address] [id number] [address] [place] [address], [place] [address] Apr, [facility] [address] [id number] [address] [place] [address], [place] [address] Apr, [facility] [address] [id number] [address] [place] [address], [place] [address] Apr, [facility] [address] [id number] [address] [place] [address], [place] [address] Apr, [facility] [address] [id number] [address] [place] [address], [place] [address] Apr, [facility] [address] [id number] [address] [place] [address], [place] [address] Apr, [facility] [address] [id number] [address] [place] [address], [place] [address] Mar, [facility] [address] [id number] [address] [place] [address], [place] [address] Mar, [facility] [address] [id number] [address] [place] [address], [place] [address] Mar, [facility] [address] [id number] [address] [place] [address], [place] [address] Mar, [facility] [address] [id number] [address] [place] [address], [place] [address] Mar, [facility] [address] [id number] [address] [place] [address] Mar, [facility] [address] [id number] [address] [place] [address], [place] [address] Mar, [facility] [address] [id number] [address] [place] [address] Mar, [facility] [place] [facility] [address] [id number] [address] [place] [address], [place] [address] Mar, [facility] [place] [facility] [address] [id number] [address] [place] [address], [place] [address] Mar, [facility] [place] [facility] [address] [id number] [address] [place] [address], [place] [address] Mar, [facility] [place] [address] [id number] [address] [place] [address], [place] [address] Feb, [facility] [address] [id number] [address] [place] [address], [place] [address] Feb, [facility] [address] [id number] [address] [place] [address], [place] [address] Feb, [facility] [address] [id number] [address] [place] [address], [place] [address] Feb, [facility] [address] [id number] [address] [place] [address], [place] [address] Feb, [facility] [address] [id number] [address] [place] [address], [place] [address] Dec, [facility] [address] [id number] [address] [place] [address], [place] [address] Dec, [facility] [address] [id number] [address] [place] [address], [place] [address] Dec, [facility] [address] [id number] [address] [place] [address], [place] [address] Dec, [facility] [address] [id number] [address] [place] [address], [place] [address] Nov, [facility] [address] [id number] [address] [place] [address], [place] [address] Nov, [facility] [address] [id number] [address] [place] [address], [place] [address] Nov, [facility] [address] [id number] [address] [place] [address], [place] [address] Nov, [facility] [address] [id number] [address] [place] [address], [place] [address] Nov, [facility] [address] [id number] [address] [place] [address], [place] [address] Nov, [facility] [address] [id number] [address] [place] [address], [place] [address] Oct, [facility] [address] [id number] [address] [place] [address], [place] [address] Oct, [facility] [address] [id number] [address] [place] [address], [place] [address] Oct, [facility] [address] [id number] [address] [place] [address], [place] [address] Oct, [facility] [address] [id number] [address] [place] [address], [place] [address] September, [facility] [address] [id number] [address] [place] [address], [place] [address] September, [facility] [address] [id number] [address] [place] [address], [place] [address] September, [facility] [address] [id number] [address] [place] [address], [place] [address] September, [facility] [address] [id number] [address] [place] [address], [place] [address] September, [facility] [address] [id number] [address] [place] [address], [place] [address] September, [facility] [address] [id number] [address] [place] [address], [place] [address] September, [facility] [address] [id number] [address] [place] [address], [place] [address] September, [facility] [address] [id number] [address] [place] [address], [place] [address] Aug, [facility] [address] [id number] [address] [place] [address], [place] [address] Aug, [facility] [address] [id number] [address] [place] [address], [place] [address] Jul, [facility] [address] [id number] [address] [place] [address], [place] [address] Jun, [facility] [address] [id number] [address] [place] [address], [place] [address] May, [facility] [address] [id number] [address] [place] [address], [place] [address] May, [facility] [address] [id number] [address] [place] [address], [place] [address] May, [facility] [address] [id number] [address] [place] [address], [place] [address] May, [facility] [address] [id number] [address] [place] [address], [place] [address] Apr, [facility] [address] [id number] [address] [place] [address], [place] [address] Apr, [facility] [address] [id number] [address] [address], [place] [address] Apr, [facility] [address] [id number] [address] [address], [place] [address] Apr, [facility] [address] [id number] [address] [address], [place] [address] Apr, [facility] [address] [id number] [address] [address], [place] [address] Apr, [facility] [address] [id number] [address] [address], [place] [address] Apr, [facility] [address] [id number] [address] [place] [address], [place] [address] Apr, [facility] [address] [id number] [address] [address], [place] [address] Apr, [facility] [address] [id number] [address] [address], [place] [address] 30 Mar, 2012 [facility] [address] [id number] [address] [address], [place] [address] 30 Mar, 2012 [facility] [address] [id number] [address] [address], [place] [address] Mar, [facility] [address] [id number] [address] [address], [place] [address] 27 Mar, 2012 [facility] [address] [id number] [address] [place] [address], [place] [address] 16 Mar, 2012 [facility] [address] [id number] [address] [place] [address], [place] [address] 16 Mar, 2012 [facility] [address] [id number] [address] [address], [place] [address] 16 Mar, 2012 [facility] [address] [id number] [address] [place] [address], [place] [address] 16 Mar, 2012 [facility] [address] [id number] [address] [place] [address], [place] [address] 16 Mar, 2012 [facility] [address] [id number] [address] [place] [address], [place] [address] 16 Mar, 2012 [facility] [address] [id number] [address] [place] [address], [place] [address] 14 Mar, 2012 [facility] [address] [id number] [address] [address], [place] [address] 14 Mar, 2012 [facility] [address] [id number] [address] [place] [address], [place] [address] 13 Mar, 2012 [facility] [address] [id number] [address] [address], [place] [address] 13 Mar, 2012 [facility] [address] [id number] [address] [place] [address], [place] [address] 06 Mar, 2012 [facility] [address] [id number] [address] [place] [address], [place] [address] 02 Mar, 2012 [facility] [address] [id number] [address] [place] [address], [place] [address] 02 Mar, 2012 [facility] [address] [id number] [address] [place] [address], [place] [address] 02 Mar, 2012 [facility] [address] [id number] [address] [place] [address], [place] [address] Mar, [facility] [address] [id number] [address] [place] [address], [place] [address] Feb, [facility] [address] [id number] [address] [address], [place] [address] Feb, [facility] [address] [id number] [address] [place] [address], [place] [address] Feb, [facility] [address] [id number] [address] [address], [place] [address] Feb, [facility] [address] [id number] [address] [address], [place] [address] Jan, [facility] [address] [id number] [address] [address], [place] [address] Jan, [facility] [address] [id number] [address] [address], [place] [address] Dec, [facility] [address] [id number] [address] [address], [place] [address] Dec, [facility] [address] [id number] [address] [address], [place] [address] Dec, [facility] [address] [id number] [address] [place] [address], [place] [address] Nov, [facility] [address] [id number] [address] [place] [address], [place] [address] Nov, [facility] [address] [id number] [address] [place] [address] Oct, [facility] [address] [id number] [address] [address], [place] [address] Oct, [facility] [address] [id number] [address] [place] [address], [place] [address] September, [facility] [address] [id number] [address] [place] [address], [place] [address] September, [facility] [address] [id number] [address] [address], [place] [address] September, [facility] [address] [id number] [address] [address], [place] [address] September, [facility] [address] [id number] [address] [place] [address], [place] [address] Aug, [facility] [address] [id number] [address] [place] [address], [place] [address] Jul, [facility] [address] [id number] [address] [place] [address], [place] [address] Jul, [facility] [address] [id number] [address] [address], [place] [address] Jun, [facility] [address] [id number] [address] [address], [place] [address] Jun, [facility] [address] [id number] [address] [place] [address], [place] [address] Jun, [facility] [address] [id number] [address] [place] [address], [place] [address] May, [facility] [address] [id number] [address] [place] [address], [place] [address] May, [facility] [address] [id number] [address] [place] [address], [place] [address] May, [facility] [address] [id number] [address] [place] [address], [place] [address] May, [facility] [address] [id number] [address] [address], [place] [address] Apr, [facility] [address] [id number] [address] [place] [place] [address], [place] [address] Apr, [facility] [address] [id number] [address] [address], [place] [address] Apr, [facility] [address] [id number] [address] [place] [address], [place] [address] Mar, [facility] [address] [id number] [address] [place] [address], [place] [address] Mar, [facility] [address] [id number] [address] [place] [address], [place] [address] Mar, [facility] [address] [id number] [address] [place] [address], [place] [address] Mar, [facility] [address] [id number] [address] [place] [address], [place] [address] Mar, [facility] [address] [id number] [address] [place] [address], [place] [address] Feb, [facility] [address] [id number] [address] [place] [address], [place] [address] Feb, [facility] [address] [id number] [address] [place] [address], [place] [address] Feb, [facility] [address] [id number] [address] [address], [place] [address] Feb, [facility] [address] [id number] [address] [address], [place] [address] Feb, [facility] [address] [id number] [address] [place] [address], [place] [address] Feb, [facility] [address] [id number] [address] [place] [address], [place] [address] Feb, [facility] [address] [id number] [address] [place] [address], [place] [address] Apr, [facility] [address] [id number] [address] [place] [address], [place] [address] Apr, [facility] [address] [id number] [address] [address], [place] [address] 15 Apr, 2010 [facility] [address] [id number] [address] [address], [place] [address] 15 Apr, 2010 [facility] [address] [id number] [address] [address], [place] [address] Apr, [facility] [address] [id number] [address] [address], [place] [address] Apr, [facility] [address] [id number] [address] [address], [place] [address] Mar, [facility] [address] [id number] [address] [address], [place] [address] Mar, [facility] [address] [id number] [address] [address], [place] [address] 17 Mar, 2010 [facility] [address] [id number] [address] [address], [place] [address] 16 Mar, 2010 [facility] [address] [id number] [address] [place] [address], [place] [address] Mar, [facility] [address] [id number] [address] [place] [address], [place] [address] Mar, [facility] [address] [id number] [address] [address], [place] [address] Mar, [facility] [address] [id number] [address] [address], [place] [address] Mar, [facility] [address] [id number] [address] [address], [place] [address] Feb, [facility] [address] [id number] [address] [place] [id number] Feb, [facility] [address] [id number] [address] [place] [id number] Dec, [facility] [address] [id number] [address] [address], [place] [address] Jun, [facility] [address] [id number] [address] [place] [id number] Jun, [facility] [address] [id number] [address] [address], [place] [address] May, [facility] [address] [id number] [address] [place] [address] Feb, [facility] [address] [id number] [address] [place] [id number] Feb, [facility] [address] [id number] [address] [place] [id number] Feb, [facility] [address] [id number] [address] [place] [id number] Feb, [facility] [address] [id number] [address] [place] [id number] Feb, [facility] [address] [id number] [address] [place] [id number] Feb, [facility] [address] [id number] [address] [place] [id number] Feb, [facility] [address] [facility] [id number] [address] [place] [id number] Jul, [facility] [address] [id number] [address] [place] [id number] Jun, IMMUNIZATIONS No Known Immunizations SOCIAL HISTORY Never Assessed REASON FOR VISIT PLAN OF CARE VITAL SIGNS Height 66 in 2012-05-29 Weight 304.19 lbs 2012-05-29 Temperature 98 degrees Fahrenheit 2012-05-29 Heart Rate 100 bpm 2012-05-29 Respiratory Rate 18 2012-05-29 MEDICATIONS Unknown Medications RESULTS No Results PROCEDURES Procedure Date Ordered Result Body Site TB INTRADERMAL TEST May 29, 2012 INSTRUCTIONS MEDICATIONS ADMINISTERED No Known Medications MEDICAL [...] 08/2014 Hospitalization History Rt hand post op infection-[facility] 7 Hospitalization History cellulitus Right elbow-[facility] 12/09/16
--- OUTSIDE RECORDS SUMMARY | 2019-10-27 22:14 | XMS REPORT ---
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 [facility] [address] [place] [id number] [address] [place] [id number] September, Contact dermatitis 692.9 and Sciatica 724.3 [facility] [address] [facility] [id number] [address] [place] [id number] September, [facility] [address] [place] [id number] [address] [place] [id number] September, Generalized anxiety disorder 300.02 ; Posttraumatic stress disorder 309.81 and Depression, major, recurrent, in partial remission 296.35 [facility] [address] [place] [id number] [address] [place] [id number] September, Cellulitis 682.9 [facility] [address] [id number] [address] [place] [address], [place] [address] September, [facility] [address] [id number] [address] [place] [address], [place] [address] September, [facility] [address] [id number] [address] [place] [address], [place] [address] Aug, [facility] [address] [id number] [address] [place] [address], [place] [address] Aug, [facility] [address] [id number] [address] [place] [address], [place] [address] Aug, [facility] [address] [id number] [address] [place] [address], [place] [address] Aug, [facility] [address] [id number] [address] [place] [address], [place] [address] Jul, [facility] [address] [id number] [address] [place] [address], [place] [address] Jul, [facility] [address] [id number] [address] [place] [address], [place] [address] Jul, [facility] [address] [id number] [address] [place] [address], [place] [address] Jul, [facility] [address] [id number] [address] [place] [address], [place] [address] 24 Jul, 2014 [facility] [address] [id number] [address] [place] [address], [place] [address] Jul, [facility] [address] [id number] [address] [place] [address], [place] [address] Jul, [facility] [address] [id number] [address] [place] [address], [place] [address] Jul, [facility] [address] [id number] [address] [place] [address], [place] [address] 19 Jul, 2014 [facility] [address] [id number] [address] [place] [address], [place] [address] 05 Jul, 2014 [facility] [address] [id number] [address] [place] [address], [place] [address] 05 Jul, 2014 [facility] [address] [id number] [address] [place] [address], [place] [address] Jul, 2014 [facility] [address] [id number] [address] [place] [address], [place] [address] Jul, 2014 [facility] [address] [id number] [address] [place] [address], [place] [address] Jul, [facility] [address] [id number] [address] [place] [address], [place] [address] Jul, [facility] [address] [id number] [address] [place] [address], [place] [address] Jun, [facility] [address] [id number] [address] [place] [address], [place] [address] Jun, [facility] [address] [id number] [address] [place] [address], [place] [address] Jun, [facility] [address] [id number] [address] [place] [address], [place] [address] Jun, [facility] [address] [id number] [address] [place] [address], [place] [address] Jun, [facility] [address] [id number] [address] [place] [address], [place] [address] Jun, [facility] [address] [id number] [address] [place] [address], [place] [address] Jun, [facility] [address] [id number] [address] [place] [address], [place] [address] Jun, [facility] [address] [id number] [address] [place] [address] Jun, 2014 [facility] [address] [id number] [address] [place] [id number] Jun, 2014 [facility] [address] [id number] [address] [place] [address], [place] [address] Jun, 2014 [facility] [address] [id number] [address] [place] [address], [place] [address] Jun, 2014 [facility] [address] [id number] [address] [place] [address], [place] [address] Jun, 2014 [facility] [address] [id number] [address] [place] [address], [place] [address] Jun, 2014 [facility] [address] [id number] [address] [place] [address], [place] [address] Jun, 2014 [facility] [address] [id number] [address] [place] [address], [place] [address] 10 Jun, 2014 [facility] [address] [id number] [address] [place] [address], [place] [address] Jun, 2014 [facility] [address] [id number] [address] [place] [address], [place] [address] Jun, 2014 [facility] [address] [id number] [address] [place] [address], [place] [address] Jun, 2014 [facility] [address] [id number] [address] [place] [address], [place] [address] Jun, 2014 [facility] [address] [id number] [address] [place] [address], [place] [address] Jun, 2014 [facility] [address] [id number] [address] [place] [address], [place] [address] Jun, 2014 [facility] [address] [id number] [address] [place] [address], [place] [address] Jun, 2014 [facility] [address] [id number] [address] [place] [id number] Jun, 2014 [facility] [address] [id number] [address] [place] [address], [place] [address] Jun, [facility] [address] [id number] [address] [place] [address], [place] [address] May, [facility] [address] [id number] [address] [place] [address], [place] [address] May, [facility] [address] [id number] [address] [place] [address], [place] [address] May, [facility] [address] [id number] [address] [place] [address], [place] [address] May, [facility] [address] [id number] [address] [place] [address], [place] [address] May, [facility] [address] [id number] [address] [place] [address], [place] [address] May, [facility] [address] [id number] [address] [place] [address], [place] [address] May, [facility] [address] [id number] [address] [place] [address], [place] [address] May, [facility] [address] [id number] [address] [place] [address], [place] [address] May, [facility] [address] [id number] [address] [place] [address], [place] [address] May, [facility] [address] [id number] [address] [place] [address], [place] [address] May, [facility] [address] [id number] [address] [place] [address], [place] [address] May, [facility] [address] [id number] [address] [place] [address], [place] [address] May, [facility] [address] [id number] [address] [place] [address], [place] [address] May, [facility] [address] [id number] [address] [place] [address], [place] [address] May, [facility] [address] [id number] [address] [place] [address] [place] [address] May, [facility] [address] [id number] [address] [place] [address], [place] [address] May, [facility] [address] [id number] [address] [place] [address], [place] [address] Apr, [facility] [address] [id number] [address] [place] [address], [place] [address] Apr, [facility] [address] [id number] [address] [place] [address], [place] [address] Apr, [facility] [address] [id number] [address] [place] [address], [place] [address] Apr, [facility] [address] [id number] [address] [place] [address], [place] [address] Mar, [facility] [address] [id number] [address] [place] [address], [place] [address] Mar, [facility] [address] [id number] [address] [place] [address], [place] [address] Mar, [facility] [address] [id number] [address] [place] [address], [place] [address] Mar, [facility] [address] [id number] [address] [place] [address], [place] [address] Mar, [facility] [address] [id number] [address] [place] [address], [place] [address] Mar, [facility] [address] [id number] [address] [place] [address], [place] [address] Feb, [facility] [address] [id number] [address] [place] [address], [place] [address] Feb, [facility] [address] [id number] [address] [place] [address], [place] [address] 18 Jan, 2014 [facility] [address] [id number] [address] [place] [address], [place] [address] 18 Jan, 2014 [facility] [address] [id number] [address] [place] [address], [place] [address] 18 Jan, 2013 [facility] [address] [id number] [address] [place] [address], [place] [address] 18 Jan, 2013 [facility] [address] [id number] [address] [place] [address], [place] [address] Jan, 2013 [facility] [address] [id number] [address] [place] [address], [place] [address] Jan, 2013 [facility] [address] [id number] [address] [place] [address], [place] [id number] Jan, 2013 [facility] [address] [id number] [address] [place] [address], [place] [address] Jan, [facility] [address] [id number] [address] [place] [address], [place] [address] Jan, [facility] [address] [id number] [address] [place] [address], [place] [address] Jan, [facility] [address] [id number] [address] [place] [address], [place] [address] Dec, [facility] [address] [id number] [address] [place] [address], [place] [address] Dec, [facility] [address] [id number] [address] [place] [address], [place] [address] Dec, [facility] [address] [id number] [address] [place] [address], [place] [address] Dec, [facility] [address] [id number] [address] [place] [address], [place] [address] Dec, [facility] [address] [id number] [address] [place] [address], [place] [address] Dec, [facility] [address] [id number] [address] [place] [address], [place] [address] Dec, [facility] [address] [id number] [address] [place] [address], [place] [address] Dec, [facility] [address] [id number] [facility] [place] [address] Dec, [facility] [address] [id number] [address] [place] [address], [place] [address] Nov, [facility] [address] [id number] [address] [place] [address], [place] [address] Nov, [facility] [address] [id number] [address] [place] [address], [place] [address] Nov, [facility] [address] [id number] [address] [place] [address], [place] [address] Nov, [facility] [address] [id number] [address] [place] [address], [place] [address] Nov, [facility] [address] [id number] [address] [place] [address], [place] [address] Nov, [facility] [address] [id number] [address] [place] [address], [place] [address] Nov, [facility] [address] [id number] [address] [place] [address], [place] [address] Nov, [facility] [address] [id number] [address] [place] [address], [place] [address] Nov, [facility] [address] [id number] [address] [place] [address], [place] [address] Nov, [facility] [address] [id number] [address] [place] [address], [place] [address] Nov, [facility] [address] [id number] [address] [place] [address], [place] [address] Nov, [facility] [address] [id number] [address] [place] [address], [place] [address] Nov, [facility] [address] [id number] [address] [place] [address], [place] [address] Nov, [facility] [address] [id number] [address] [place] [address], [place] [address] Nov, [facility] [address] [id number] [address] [place] [address], [place] [address] Oct, [facility] [address] [id number] [address] [place] [address], [place] [address] Oct, [facility] [address] [id number] [address] [place] [address], [place] [address] Oct, [facility] [address] [id number] [address] [place] [address], [place] [address] Oct, [facility] [address] [id number] [address] [place] [address], [place] [address] Oct, [facility] [address] [id number] [address] [place] [address], [place] [address] Oct, [facility] [address] [id number] [address] [place] [address], [place] [address] Oct, [facility] [facility] [address] [id number] [address] [place] [address], [place] [address] Oct, [facility] [address] [id number] [address] [place] [address], [place] [address] Oct, [facility] [address] [id number] [address] [place] [address], [place] [address] Oct, [facility] [address] [id number] [address] [place] [address], [place] [address] Oct, [facility] [address] [id number] [address] [place] [address], [place] [address] Oct, [facility] [address] [id number] [address] [place] [address], [place] [address] Oct, [facility] [address] [id number] [address] [place] [address], [place] [address] Oct, [facility] [address] [id number] [address] [place] [address], [place] [address] September, [facility] [address] [id number] [address] [place] [address], [place] [address] September, [facility] [address] [id number] [address] [place] [address], [place] [address] September, [facility] [address] [id number] [address] [place] [address], [place] [address] September, [facility] [address] [id number] [address] [place] [address], [place] [address] September, [facility] [address] [id number] [address] [place] [address], [place] [address] September, [facility] [address] [id number] [address] [place] [address], [place] [address] September, [facility] [address] [id number] [address] [place] [address], [place] [address] September, [facility] [address] [id number] [address] [place] [address], [place] [address] September, [facility] [address] [id number] [address] [place] [address], [place] [address] September, [facility] [address] [id number] [address] [place] [address], [place] [address] September, [facility] [address] [id number] [address] [place] [address], [place] [address] September, [facility] [address] [id number] [address] [place] [address], [place] [address] September, [facility] [address] [id number] [address] [place] [address], [place] [address] Aug, [facility] [address] [id number] [address] [place] [address], [place] [address] Aug, [facility] [address] [id number] [address] [place] [address], [place] [address] Aug, [facility] [address] [id number] [address] [place] [address], [place] [address] Aug, [facility] [address] [id number] [facility] [place] [address] Aug, [facility] [address] [id number] [address] [place] [address], [place] [address] Aug, [facility] [address] [id number] [address] [place] [address], [place] [address] Aug, [facility] [address] [id number] [address] [place] [address], [place] [address] Aug, [facility] [address] [id number] [address] [place] [address], [place] [address] Aug, [facility] [address] [id number] [address] [place] [address], [place] [address] Aug, [facility] [address] [id number] [address] [place] [address], [place] [address] Jul, [facility] [address] [id number] [address] [place] [address], [place] [address] Jul, [facility] [address] [id number] [address] [place] [address], [place] [address] Jul, [facility] [address] [id number] [address] [place] [address], [place] [address] Jul, [facility] [address] [id number] [address] [place] [address], [place] [address] Jul, [facility] [address] [id number] [address] [place] [address], [place] [address] Jul, [facility] [address] [id number] [address] [place] [address], [place] [address] Jul, [facility] [address] [id number] [address] [place] [address], [place] [address] Jul, [facility] [address] [id number] [address] [place] [address], [place] [address] Jun, [facility] [address] [id number] [address] [place] [address], [place] [address] 27 Jun, 2013 [facility] [address] [id number] [address] [place] [address], [place] [address] 14 Jun, 2013 [facility] [address] [id number] [address] [place] [address], [place] [address] 14 Jun, 2013 [facility] [address] [id number] [address] [place] [address], [place] [address] Jun, 2013 [facility] [address] [id number] [address] [place] [address], [place] [address] Jun, [facility] [address] [id number] [address] [place] [address], [place] [address] Jun, [facility] [address] [id number] [address] [place] [address], [place] [address] Jun, [facility] [address] [id number] [address] [place] [address], [place] [address] Jun, [facility] [address] [id number] [address] [place] [address], [place] [address] Jun, [facility] [address] [id number] [address] [place] [address], [place] [address] Jun, [facility] [address] [id number] [address] [place] [address], [place] [address] Jun, [facility] [address] [id number] [address] [place] [address], [place] [address] Jun, [facility] [address] [id number] [address] [place] [address], [place] [address] Jun, [facility] [address] [id number] [address] [place] [address], [place] [address] May, [facility] [address] [id number] [address] [place] [address], [place] [address] May, [facility] [address] [id number] [address] [place] [address], [place] [address] May, [facility] [address] [id number] [address] [place] [address], [place] [address] May, [facility] [address] [id number] [address] [place] [address], [place] [address] May, [facility] [address] [id number] [address] [place] [address], [place] [address] May, [facility] [address] [id number] [address] [place] [address], [place] [address] May, [facility] [address] [id number] [address] [place] [address], [place] [address] May, [facility] [address] [id number] [address] [place] [address], [place] [address] May, [facility] [address] [id number] [address] [place] [address], [place] [address] May, [facility] [address] [id number] [address] [place] [address], [place] [address] May, [facility] [address] [id number] [address] [place] [address], [place] [address] May, [facility] [address] [id number] [address] [place] [address], [place] [address] May, [facility] [address] [id number] [address] [place] [address], [place] [address] May, [facility] [address] [id number] [address] [place] [address], [place] [address] May, [facility] [address] [id number] [address] [place] [address], [place] [address] May, [facility] [address] [id number] [address] [place] [address], [place] [address] May, [facility] [address] [id number] [address] [place] [address], [place] [address] May, [facility] [address] [id number] [address] [place] [address], [place] [address] May, [facility] [address] [id number] [address] [place] [address], [place] [address] May, [facility] [address] [id number] [address] [place] [address], [place] [address] Apr, [facility] [address] [id number] [address] [place] [address], [place] [address] Apr, [facility] [address] [id number] [address] [place] [address], [place] [address] Apr, [facility] [address] [id number] [address] [place] [address], [place] [address] Apr, [facility] [address] [id number] [address] [place] [address], [place] [address] Apr, [facility] [address] [id number] [address] [place] [address], [place] [address] Apr, [facility] [address] [id number] [address] [place] [address], [place] [address] Apr, [facility] [address] [id number] [address] [place] [address], [place] [address] Apr, [facility] [address] [id number] [address] [place] [address], [place] [address] 17 Apr, 2013 [facility] [address] [id number] [address] [place] [address], [place] [address] Apr, [facility] [address] [id number] [address] [place] [address], [place] [address] Apr, [facility] [address] [id number] [address] [place] [address], [place] [address] Apr, [facility] [address] [id number] [address] [place] [address], [place] [address] 09 Apr, 2013 [facility] [address] [id number] [address] [place] [address], [place] [address] Apr, [facility] [address] [id number] [address] [place] [address], [place] [address] Apr, [facility] [address] [id number] [address] [place] [address], [place] [address] Apr, [facility] [address] [id number] [address] [place] [address], [place] [address] Apr, [facility] [address] [id number] [address] [place] [address], [place] [address] Apr, [facility] [address] [id number] [address] [place] [address], [place] [address] Mar, [facility] [address] [id number] [address] [place] [address] Mar, [facility] [address] [id number] [address] [place] [address], [place] [address] Mar, [facility] [address] [id number] [address] [place] [address] Mar, [facility] [address] [id number] [address] [place] [address] Mar, [facility] [address] [id number] [address] [place] [address] Mar, [facility] [address] [id number] [address] [place] [address] Mar, [facility] [address] [id number] [address] [place] [address] Mar, [facility] [address] [id number] [address] [place] [address], [place] [address] Mar, [facility] [address] [id number] [address] [place] [address] Mar, [facility] [address] [id number] [address] [place] [address] Mar, [facility] [address] [id number] [address] [place] [address], [place] [address] Feb, [facility] [address] [id number] [address] [place] [address], [place] [address] Feb, [facility] [address] [id number] [address] [place] [address], [place] [address] Feb, [facility] [address] [id number] [address] [place] [address], [place] [address] Feb, [facility] [address] [id number] [address] [place] [address], [place] [address] Feb, [facility] [address] [id number] [address] [place] [address], [place] [address] Dec, [facility] [address] [id number] [address] [place] [address], [place] [address] Dec, [facility] [address] [id number] [address] [place] [address], [place] [address] Dec, [facility] [address] [id number] [address] [place] [address], [place] [address] Dec, [facility] [address] [id number] [address] [place] [address], [place] [address] Nov, [facility] [address] [id number] [address] [place] [address], [place] [address] Nov, [facility] [address] [id number] [address] [place] [address], [place] [address] Nov, [facility] [address] [id number] [address] [place] [address], [place] [address] Nov, [facility] [address] [id number] [address] [place] [address], [place] [address] Nov, [facility] [address] [id number] [address] [place] [address], [place] [address] Nov, [facility] [address] [id number] [address] [place] [address], [place] [address] Oct, [facility] [address] [id number] [address] [place] [address], [place] [address] Oct, [facility] [address] [id number] [address] [place] [address], [place] [address] Oct, [facility] [address] [id number] [address] [place] [address], [place] [address] Oct, [facility] [address] [id number] [address] [place] [address], [place] [address] September, [facility] [address] [id number] [address] [place] [address], [place] [address] September, [facility] [address] [id number] [address] [place] [address], [place] [address] September, [facility] [address] [id number] [address] [place] [address], [place] [address] September, [facility] [address] [id number] [address] [place] [address], [place] [address] September, [facility] [address] [id number] [address] [place] [address], [place] [address] September, [facility] [address] [id number] [address] [place] [address], [place] [address] September, [facility] [address] [id number] [address] [place] [address], [place] [address] September, [facility] [address] [id number] [address] [place] [address], [place] [address] Aug, [facility] [address] [id number] [address] [place] [address], [place] [address] Aug, [facility] [address] [id number] [address] [place] [address], [place] [address] Jul, [facility] [address] [id number] [address] [place] [address], [place] [address] Jun, [facility] [address] [id number] [address] [place] [address], [place] [address] May, [facility] [address] [id number] [address] [place] [address], [place] [address] May, [facility] [address] [id number] [address] [place] [address], [place] [address] May, [facility] [address] [id number] [address] [place] [address], [place] [address] May, [facility] [address] [id number] [address] [place] [address], [place] [address] 28 Apr, 2012 [facility] [address] [id number] [address] [place] [address], [place] [address] Apr, [facility] [address] [id number] [address] [place] [address], [place] [address] Apr, [facility] [address] [id number] [address] [place] [address], [place] [address] Apr, [facility] [address] [id number] [address] [place] [address], [place] [address] Apr, [facility] [address] [id number] [address] [place] [address], [place] [address] Apr, [facility] [address] [id number] [address] [place] [address], [place] [address] 17 Apr, 2012 [facility] [address] [id number] [address] [place] [address], [place] [address] Apr, [facility] [address] [id number] [address] [place] [address], [place] [address] Apr, [facility] [address] [id number] [address] [place] [address], [place] [address] 30 Mar, 2012 [facility] [address] [id number] [address] [place] [address], [place] [address] 30 Mar, 2012 [facility] [address] [id number] [address] [place] [address], [place] [address] Mar, [facility] [address] [id number] [facility] [place] [address] 27 Mar, 2012 [facility] [address] [id number] [address] [place] [address], [place] [address] 16 Mar, 2012 [facility] [address] [id number] [address] [place] [address], [place] [address] 16 Mar, 2012 [facility] [address] [id number] [address] [place] [address], [place] [address] 16 Mar, 2012 [facility] [address] [id number] [address] [place] [address], [place] [address] 16 Mar, 2012 [facility] [address] [id number] [address] [place] [address], [place] [address] 16 Mar, 2012 [facility] [address] [id number] [address] [place] [address], [place] [address] 16 Mar, 2012 [facility] [address] [id number] [address] [place] [address], [place] [address] 14 Mar, 2012 [facility] [address] [id number] [address] [place] [address], [place] [address] 14 Mar, 2012 [facility] [address] [id number] [address] [place] [address], [place] [address] 13 Mar, 2012 [facility] [address] [id number] [address] [place] [address], [place] [address] 13 Mar, 2012 [facility] [address] [id number] [address] [place] [address], [place] [address] 06 Mar, 2012 [facility] [address] [id number] [address] [place] [address], [place] [address] 02 Mar, 2012 [facility] [address] [id number] [address] [place] [address], [place] [address] 02 Mar, 2012 [facility] [address] [id number] [address] [place] [address], [place] [address] 02 Mar, 2012 [facility] [address] [id number] [address] [place] [address], [place] [address] Mar, [facility] [address] [id number] [address] [place] [address], [place] [address] Feb, [facility] [address] [id number] [address] [place] [address], [place] [address] Feb, [facility] [address] [id number] [address] [place] [address], [place] [address] Feb, [facility] [address] [id number] [address] [place] [address], [place] [address] Feb, [facility] [address] [id number] [address] [place] [address], [place] [address] Jan, [facility] [address] [id number] [address] [place] [address], [place] [address] Jan, [facility] [address] [id number] [address] [place] [address], [place] [address] Dec, [facility] [address] [id number] [address] [place] [address], [place] [address] Dec, [facility] [address] [id number] [address] [place] [address], [place] [address] Dec, [facility] [address] [id number] [address] [place] [address], [place] [address] Nov, [facility] [address] [id number] [address] [place] [address], [place] [address] Nov, [facility] [address] [id number] [address] [place] [address], [place] [address] Oct, [facility] [address] [id number] [address] [place] [address], [place] [address] Oct, [facility] [address] [id number] [address] [place] [address], [place] [address] September, [facility] [address] [id number] [address] [place] [address], [place] [address] September, [facility] [address] [id number] [address] [place] [address], [place] [address] September, [facility] [address] [id number] [address] [place] [address], [place] [address] September, [facility] [address] [id number] [address] [place] [address], [place] [address] Aug, [facility] [address] [id number] [address] [place] [address], [place] [address] Jul, [facility] [address] [id number] [address] [place] [address], [place] [address] Jul, [facility] [address] [id number] [address] [place] [address], [place] [address] Jun, [facility] [address] [id number] [address] [place] [address], [place] [address] Jun, [facility] [address] [id number] [address] [place] [address], [place] [address] Jun, [facility] [address] [id number] [address] [place] [address], [place] [address] May, [facility] [address] [id number] [address] [place] [address], [place] [address] May, [facility] [address] [id number] [address] [place] [address], [place] [address] May, [facility] [address] [id number] [address] [place] [address], [place] [address] May, [facility] [address] [id number] [address] [place] [address], [place] [address] Apr, [facility] [address] [id number] [address] [place] [address], [place] [address] Apr, [facility] [address] [id number] [address] [place] [address], [place] [address] Apr, [facility] [address] [id number] [address] [place] [address], [place] [address] Mar, [facility] [address] [id number] [address] [place] [address], [place] [address] Mar, [facility] [address] [id number] [address] [place] [address], [place] [address] Mar, [facility] [address] [id number] [address] [place] [address], [place] [address] Mar, [facility] [address] [id number] [address] [place] [address], [place] [address] Mar, [facility] [address] [id number] [address] [place] [address], [place] [address] Feb, [facility] [address] [id number] [address] [place] [address], [place] [address] Feb, [facility] [address] [id number] [address] [place] [address], [place] [address] Feb, [facility] [address] [id number] [address] [place] [address], [place] [address] Feb, [facility] [address] [id number] [address] [place] [address], [place] [address] Feb, [facility] [address] [id number] [address] [place] [address] Feb, [facility] [address] [id number] [address] [place] [address] Feb, [facility] [address] [id number] [address] [place] [address] Apr, [facility] [address] [id number] [address] [place] [address], [place] [address] Apr, [facility] [address] [id number] [address] [place] [address], [place] [address] 15 Apr, 2010 [facility] [address] [id number] [address] [place] [id number] 15 Apr, 2010 [facility] [address] [id number] [address] [place] [address] Apr, [facility] [address] [id number] [address] [place] [address], [place] [address] Apr, [facility] [address] [id number] [address] [place] [address] Mar, [facility] [address] [id number] [address] [place] [address], [place] [address] Mar, [facility] [address] [id number] [address] [place] [id number] 17 Mar, 2010 [facility] [address] [id number] [address] [place] [address], [place] [address] 16 Mar, 2010 [facility] [address] [id number] [address] [place] [address] Mar, [facility] [address] [id number] [address] [place] [id number] Mar, [facility] [address] [id number] [address] [place] [id number] Mar, [facility] [address] [id number] [address] [place] [id number] Mar, [facility] [address] [id number] [address] [place] [id number] Feb, [facility] [address] [id number] [address] [place] [id number] Feb, [facility] [address] [id number] [address] [place] [id number] Dec, [facility] [address] [id number] [address] [place] [id number] Jun, [facility] [address] [id number] [address] [place] [id number] Jun, [facility] [address] [id number] [address] [place] [id number] May, [facility] [address] [id number] [address] [place] [id number] Feb, [facility] [address] [id number] [address] [place] [id number] Feb, [facility] [address] [id number] [address] [place] [id number] Feb, [facility] [address] [id number] [address] [place] [id number] Feb, [facility] [address] [id number] [address] [place] [id number] Feb, [facility] [address] [id number] [address] [place] [id number] Feb, [facility] [address] [id number] [address] [place] [id number] Feb, [facility] [address] [id number] [address] [place] [id number] Jul, [facility] [address] [facility] [id number] [address] [place] [id number] Jun, IMMUNIZATIONS No Known Immunizations SOCIAL HISTORY [...]
--- OUTSIDE RECORDS SUMMARY | 2019-10-27 22:15 | XMS REPORT ---
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 [facility] [address] [place] [id number] [address] [place] [id number] Oct, [facility] [address] [place] [id number] [place] [address] Oct, Major depressive disorder, r ecurrent episode, unspecified 296.30 and Anxiety state 300.00 [facility] [address] [place] [id number] [address] [place] [address] Oct, Spider bite 989.5 [facility] [address] [place] [id number] [address] [place] [address] Oct, [facility] [address] [place] [id number] [address] [place] [phone] September, Contact dermatitis 692.9 and Sciatica 724.3 [facility] [address] [place] [id number] [address] [place] [id number] September, [facility] [address] [place] [id number] [address] [place] [id number] September, Generalized anxiety disorder 300.02 ; Posttraumatic stress disorder 309.81 and Depression, major, recurrent, in partial remission 296.35 [facility] [address] [place] [id number] [address] [place] [address] September, Cellulitis 682.9 [facility] [address] [place] [id number] [address] [place] [phone] September, [facility] [address] [id number] [address] [place] [address], [place] [address] September, [facility] [address] [id number] [address] [place] [address], [place] [address] 30 Aug, 2014 [facility] [address] [id number] [address] [place] [address], [place] [address] 29 Aug, 2014 [facility] [address] [id number] [address] [place] [address], [place] [address] 14 Aug, 2014 [facility] [address] [id number] [address] [place] [address], [place] [address] Aug, [facility] [address] [id number] [address] [place] [address], [place] [address] 27 Jul, 2014 [facility] [address] [id number] [address] [place] [address], [place] [address] Jul, [facility] [address] [id number] [address] [place] [address], [place] [address] Jul, [facility] [address] [id number] [address] [place] [address], [place] [address] Jul, [facility] [address] [id number] [address] [place] [address], [place] [address] 24 Jul, 2014 [facility] [address] [id number] [address] [place] [address], [place] [address] Jul, [facility] [address] [id number] [address] [place] [address], [place] [address] Jul, [facility] [address] [id number] [address] [place] [address], [place] [address] Jul, [facility] [address] [id number] [address] [place] [address], [place] [address] Jul, [facility] [address] [id number] [address] [place] [address], [place] [address] 05 Jul, 2014 [facility] [address] [id number] [address] [place] [address], [place] [address] 05 Jul, 2014 [facility] [address] [id number] [address] [place] [address], [place] [address] Jul, 2014 [facility] [address] [id number] [address] [place] [address], [place] [address] Jul, [facility] [address] [id number] [address] [place] [address], [place] [address] Jul, [facility] [address] [id number] [address] [place] [address], [place] [address] Jul, [facility] [address] [id number] [address] [place] [address], [place] [address] Jun, [facility] [address] [id number] [address] [place] [address], [place] [address] Jun, [facility] [address] [id number] [address] [place] [address], [place] [address] Jun, 2014 [facility] [address] [id number] [address] [place] [address], [place] [address] Jun, 2014 [facility] [address] [id number] [address] [place] [address], [place] [address] Jun, [facility] [address] [id number] [address] [place] [address], [place] [address] Jun, [facility] [address] [id number] [address] [place] [address], [place] [address] Jun, 2014 [facility] [address] [id number] [address] [place] [address], [place] [address] Jun, 2014 [facility] [address] [id number] [address] [place] [address], [place] [address] Jun, 2014 [facility] [address] [id number] [address] [place] [address], [place] [address] Jun, 2014 [facility] [address] [id number] [address] [place] [address], [place] [address] Jun, 2014 [facility] [address] [id number] [address] [place] [address], [place] [address] Jun, 2014 [facility] [address] [id number] [address] [place] [address], [place] [address] Jun, 2014 [facility] [address] [id number] [address] [place] [address], [place] [address] Jun, 2014 [facility] [address] [id number] [address] [place] [address], [place] [address] Jun, 2014 [facility] [address] [id number] [address] [place] [address], [place] [address] Jun, 2014 [facility] [address] [id number] [address] [place] [address], [place] [address] Jun, 2014 [facility] [address] [id number] [address] [place] [address], [place] [address] Jun, 2014 [facility] [address] [id number] [address] [place] [address], [place] [address] Jun, 2014 [facility] [address] [id number] [address] [place] [address], [place] [address] Jun, 2014 [facility] [address] [id number] [address] [place] [address], [place] [address] Jun, 2014 [facility] [address] [id number] [address] [place] [address], [place] [address] Jun, 2014 [facility] [address] [id number] [address] [place] [address] Jun, 2014 [facility] [address] [id number] [address] [place] [address], [place] [address] Jun, 2014 [facility] [address] [id number] [address] [place] [address], [place] [address] Jun, 2014 [facility] [address] [id number] [address] [place] [address], [place] [address] May, [facility] [address] [id number] [address] [place] [address] [place] [address] May, [facility] [address] [id number] [address] [place] [address], [place] [address] May, [facility] [address] [id number] [address] [place] [address], [place] [address] May, [facility] [address] [id number] [address] [place] [address], [place] [address] May, [facility] [address] [id number] [address] [place] [address], [place] [address] May, [facility] [address] [id number] [address] [place] [address], [place] [address] May, [facility] [address] [id number] [address] [place] [address], [place] [address] May, [facility] [address] [id number] [address] [place] [address], [place] [address] May, [facility] [address] [id number] [address] [place] [address], [place] [address] May, [facility] [address] [id number] [address] [place] [address], [place] [address] May, [facility] [address] [id number] [address] [place] [address], [place] [address] May, [facility] [address] [id number] [address] [place] [address], [place] [address] May, [facility] [address] [id number] [address] [place] [address], [place] [address] May, [facility] [address] [id number] [address] [place] [address], [place] [address] May, [facility] [address] [id number] [address] [place] [address], [place] [address] May, [facility] [address] [id number] [address] [place] [address], [place] [address] May, [facility] [address] [id number] [address] [place] [address], [place] [address] Apr, [facility] [address] [id number] [address] [place] [address], [place] [address] Apr, [facility] [address] [id number] [address] [place] [address], [place] [address] Apr, [facility] [address] [id number] [address] [place] [address], [place] [address] Apr, [facility] [address] [id number] [address] [place] [address], [place] [address] Mar, [facility] [address] [id number] [address] [place] [address], [place] [address] Mar, [facility] [address] [id number] [address] [place] [address], [place] [address] Mar, [facility] [address] [id number] [address] [place] [address], [place] [address] Mar, [facility] [address] [id number] [address] [place] [address], [place] [address] Mar, [facility] [address] [id number] [address] [place] [address], [place] [address] Mar, [facility] [address] [id number] [address] [place] [address], [place] [address] 16 Feb, 2014 [facility] [address] [id number] [address] [place] [address], [place] [address] 16 Feb, 2014 [facility] [address] [id number] [address] [place] [address], [place] [address] 18 Jan, 2014 [facility] [address] [id number] [address] [place] [address], [place] [address] 18 Jan, 2014 [facility] [address] [id number] [address] [place] [address], [place] [address] 18 Jan, 2014 [facility] [address] [id number] [address] [place] [address], [place] [address] Jan, [facility] [address] [id number] [address] [place] [address], [place] [address] Jan, [facility] [address] [id number] [address] [place] [address], [place] [address] Jan, [facility] [address] [id number] [facility] [id number] Jan, [facility] [address] [id number] [address] [place] [address], [place] [address] Jan, [facility] [address] [id number] [address] [place] [address], [place] [address] Jan, [facility] [address] [id number] [address] [place] [address], [place] [address] Jan, [facility] [address] [id number] [address] [place] [address], [place] [address] Dec, [facility] [address] [id number] [address] [place] [address], [place] [address] Dec, [facility] [address] [id number] [address] [place] [address], [place] [address] Dec, [facility] [address] [id number] [address] [place] [address], [place] [address] Dec, [facility] [address] [id number] [address] [place] [address], [place] [address] Dec, [facility] [address] [id number] [address] [place] [address], [place] [address] Dec, [facility] [address] [id number] [address] [place] [address], [place] [address] Dec, [facility] [address] [id number] [address] [place] [address], [place] [address] Dec, [facility] [address] [id number] [address] [place] [address], [place] [address] Dec, [facility] [address] [id number] [facility] [place] [address] Nov, 2013 [facility] [address] [id number] [address] [place] [address], [place] [address] Nov, 2013 [facility] [address] [id number] [address] [place] [address], [place] [address] Nov, 2013 [facility] [address] [id number] [address] [place] [address], [place] [address] Nov, 2013 [facility] [address] [id number] [address] [place] [address], [place] [address] Nov, 2013 [facility] [address] [id number] [address] [place] [address], [place] [address] Nov, 2013 [facility] [address] [id number] [address] [place] [address], [place] [address] Nov, 2013 [facility] [address] [id number] [address] [place] [address], [place] [address] Nov, 2013 [facility] [address] [id number] [address] [place] [address], [place] [address] Nov, 2013 [facility] [address] [id number] [address] [place] [address], [place] [address] Nov, 2013 [facility] [address] [id number] [address] [place] [address], [place] [address] Nov, [facility] [address] [id number] [address] [place] [address], [place] [address] Nov, 2013 [facility] [address] [id number] [address] [place] [address], [place] [address] Nov, 2013 [facility] [address] [id number] [address] [place] [address], [place] [address] Nov, [facility] [address] [id number] [address] [place] [address], [place] [address] Nov, 2013 [facility] [address] [id number] [address] [place] [address], [place] [address] Oct, [facility] [address] [id number] [address] [place] [address], [place] [address] Oct, [facility] [address] [id number] [address] [place] [address], [place] [address] Oct, [facility] [address] [id number] [address] [place] [address], [place] [address] Oct, [facility] [address] [id number] [address] [place] [address], [place] [address] Oct, [facility] [address] [id number] [address] [place] [address], [place] [address] Oct, [facility] [address] [id number] [address] [place] [address], [place] [address] Oct, [facility] [address] [id number] [address] [place] [address], [place] [address] Oct, [facility] [address] [id number] [address] [place] [address], [place] [address] Oct, [facility] [address] [id number] [address] [place] [address], [place] [address] Oct, [facility] [address] [id number] [address] [place] [address], [place] [address] Oct, [facility] [address] [id number] [address] [place] [address], [place] [address] Oct, [facility] [address] [id number] [address] [place] [address], [place] [address] Oct, [facility] [facility] [address] [id number] [address] [place] [address], [place] [address] Oct, [facility] [address] [id number] [address] [place] [address], [place] [address] September, [facility] [address] [id number] [address] [place] [address], [place] [address] September, [facility] [address] [id number] [address] [place] [address], [place] [address] September, [facility] [address] [id number] [address] [place] [address], [place] [address] September, [facility] [address] [id number] [address] [place] [address], [place] [address] September, [facility] [address] [id number] [address] [place] [address], [place] [address] September, [facility] [address] [id number] [address] [place] [address], [place] [address] September, [facility] [address] [id number] [address] [place] [address], [place] [address] September, [facility] [address] [id number] [address] [place] [address], [place] [address] September, [facility] [address] [id number] [address] [place] [address], [place] [address] September, [facility] [address] [id number] [address] [place] [address], [place] [address] September, [facility] [address] [id number] [address] [place] [address], [place] [address] September, [facility] [address] [id number] [address] [place] [address], [place] [address] September, [facility] [address] [id number] [address] [place] [address], [place] [address] Aug, [facility] [address] [id number] [address] [place] [address], [place] [address] Aug, [facility] [address] [id number] [address] [place] [address], [place] [address] Aug, [facility] [address] [id number] [address] [place] [address], [place] [address] Aug, [facility] [address] [id number] [address] [place] [address], [place] [address] Aug, [facility] [address] [id number] [facility] [place] [address] Aug, [facility] [address] [id number] [facility] [place] [address] Aug, [facility] [address] [id number] [facility] [place] [address] Aug, [facility] [address] [id number] [address] [place] [address], [place] [address] Aug, [facility] [address] [id number] [address] [place] [address], [place] [address] Aug, [facility] [address] [id number] [address] [place] [address], [place] [address] Jul, [facility] [address] [id number] [address] [place] [address], [place] [address] Jul, [facility] [address] [id number] [address] [place] [address], [place] [address] Jul, [facility] [address] [id number] [address] [place] [address], [place] [address] Jul, [facility] [address] [id number] [address] [place] [address], [place] [address] Jul, [facility] [address] [id number] [address] [place] [address], [place] [address] Jul, [facility] [address] [id number] [address] [place] [address], [place] [address] Jul, [facility] [address] [id number] [address] [place] [address], [place] [address] Jul, [facility] [address] [id number] [address] [place] [address], [place] [address] Jun, [facility] [address] [id number] [address] [place] [address], [place] [address] Jun, [facility] [address] [id number] [address] [place] [address], [place] [address] 14 Jun, 2013 [facility] [address] [id number] [address] [place] [address], [place] [address] 14 Jun, 2013 [facility] [address] [id number] [address] [place] [address], [place] [address] 13 Jun, 2013 [facility] [address] [id number] [address] [place] [address], [place] [address] Jun, [facility] [address] [id number] [address] [place] [address], [place] [address] 06 Jun, 2013 [facility] [address] [id number] [address] [place] [address], [place] [address] 06 Jun, 2013 [facility] [address] [id number] [address] [place] [address], [place] [address] 04 Jun, 2013 [facility] [address] [id number] [address] [place] [address], [place] [address] 04 Jun, 2013 [facility] [address] [id number] [address] [place] [address], [place] [address] 03 Jun, 2013 [facility] [address] [id number] [address] [place] [address], [place] [address] 03 Jun, 2013 [facility] [address] [id number] [address] [place] [address], [place] [address] 02 Jun, 2013 [facility] [address] [id number] [address] [place] [address], [place] [address] Jun, [facility] [address] [id number] [address] [place] [address], [place] [address] May, [facility] [address] [id number] [address] [place] [address], [place] [address] May, [facility] [address] [id number] [address] [place] [address], [place] [address] May, [facility] [address] [id number] [address] [place] [address], [place] [address] May, [facility] [address] [id number] [address] [place] [address], [place] [address] May, [facility] [address] [id number] [address] [place] [address], [place] [address] May, [facility] [address] [id number] [address] [place] [address], [place] [address] May, [facility] [address] [id number] [address] [place] [address], [place] [address] May, [facility] [address] [id number] [address] [place] [address], [place] [address] May, [facility] [address] [id number] [address] [place] [address], [place] [address] May, [facility] [address] [id number] [address] [place] [address], [place] [address] May, [facility] [address] [id number] [address] [place] [address], [place] [address] May, [facility] [address] [id number] [address] [place] [address], [place] [address] May, [facility] [address] [id number] [address] [place] [address], [place] [address] May, [facility] [address] [id number] [address] [place] [address], [place] [address] May, [facility] [address] [id number] [address] [place] [address], [place] [address] May, [facility] [address] [id number] [address] [place] [address], [place] [address] May, [facility] [address] [id number] [address] [place] [address], [place] [address] May, [facility] [address] [id number] [address] [place] [address], [place] [address] May, [facility] [address] [id number] [address] [place] [address], [place] [address] May, [facility] [address] [id number] [address] [place] [address], [place] [address] Apr, [facility] [address] [id number] [address] [place] [address], [place] [address] Apr, [facility] [address] [id number] [address] [place] [address], [place] [address] Apr, [facility] [address] [id number] [address] [place] [address], [place] [address] Apr, [facility] [address] [id number] [address] [place] [address], [place] [address] Apr, [facility] [address] [id number] [address] [place] [address], [place] [address] Apr, [facility] [address] [id number] [address] [place] [address], [place] [address] Apr, [facility] [address] [id number] [address] [place] [address], [place] [address] Apr, [facility] [address] [id number] [address] [place] [address], [place] [address] Apr, [facility] [address] [id number] [address] [place] [address], [place] [address] Apr, [facility] [address] [id number] [address] [place] [address], [place] [address] Apr, [facility] [address] [id number] [address] [place] [address], [place] [address] Apr, [facility] [address] [id number] [address] [place] [address], [place] [address] Apr, [facility] [address] [id number] [address] [place] [address], [place] [address] Apr, [facility] [address] [id number] [address] [place] [address], [place] [address] Apr, [facility] [address] [id number] [address] [place] [address], [place] [address] 05 Apr, 2013 [facility] [address] [id number] [address] [place] [address], [place] [address] Apr, [facility] [address] [id number] [address] [place] [address], [place] [address] Apr, [facility] [address] [id number] [address] [place] [address], [place] [address] Mar, [facility] [address] [id number] [address] [place] [address], [place] [address] Mar, [facility] [address] [id number] [address] [place] [address], [place] [address] Mar, [facility] [address] [id number] [address] [place] [address], [place] [address] Mar, [facility] [address] [id number] [address] [place] [address], [place] [address] Mar, [facility] [address] [id number] [address] [place] [address], [place] [address] Mar, [facility] [address] [id number] [address] [place] [address], [place] [address] Mar, [facility] [address] [id number] [address] [place] [address], [place] [address] Mar, [facility] [address] [id number] [address] [place] [address], [place] [address] Mar, [facility] [address] [id number] [address] [place] [address], [place] [address] Mar, [facility] [address] [id number] [address] [place] [address], [place] [address] Mar, [facility] [address] [id number] [address] [place] [address], [place] [address] Feb, [facility] [address] [id number] [address] [place] [address], [place] [address] Feb, [facility] [address] [id number] [address] [place] [address], [place] [address] Feb, [facility] [address] [id number] [address] [place] [address], [place] [address] Feb, [facility] [address] [id number] [address] [place] [address], [place] [address] Feb, [facility] [address] [id number] [address] [place] [address], [place] [address] Dec, [facility] [address] [id number] [address] [place] [address], [place] [address] Dec, [facility] [address] [id number] [address] [place] [address], [place] [address] Dec, [facility] [address] [id number] [address] [place] [address], [place] [address] Dec, [facility] [address] [id number] [address] [place] [address], [place] [address] Nov, [facility] [address] [id number] [address] [place] [address], [place] [address] Nov, [facility] [address] [id number] [address] [place] [address], [place] [address] Nov, [facility] [address] [id number] [address] [place] [address], [place] [address] Nov, [facility] [address] [id number] [address] [place] [address], [place] [address] Nov, [facility] [address] [id number] [address] [place] [address], [place] [address] Nov, [facility] [address] [id number] [address] [place] [address], [place] [address] Oct, [facility] [address] [id number] [address] [place] [address], [place] [address] Oct, [facility] [address] [id number] [address] [place] [address], [place] [address] Oct, [facility] [address] [id number] [address] [place] [address], [place] [address] Oct, [facility] [address] [id number] [address] [place] [address], [place] [address] September, [facility] [address] [id number] [address] [place] [address], [place] [address] September, [facility] [address] [id number] [address] [place] [address], [place] [address] September, [facility] [address] [id number] [address] [place] [address], [place] [address] September, [facility] [address] [id number] [address] [place] [address], [place] [address] September, [facility] [address] [id number] [address] [place] [address], [place] [address] September, [facility] [address] [id number] [address] [place] [address], [place] [address] September, [facility] [address] [id number] [address] [place] [address], [place] [address] September, [facility] [address] [id number] [address] [place] [address], [place] [address] Aug, [facility] [address] [id number] [address] [place] [address], [place] [address] Aug, [facility] [address] [id number] [address] [place] [address], [place] [address] Jul, [facility] [address] [id number] [address] [place] [address], [place] [address] Jun, [facility] [address] [id number] [address] [place] [address], [place] [address] May, [facility] [address] [id number] [address] [place] [address], [place] [address] May, [facility] [address] [id number] [address] [place] [address], [place] [address] 14 May, 2012 [facility] [address] [id number] [address] [place] [address], [place] [address] 14 May, 2012 [facility] [address] [id number] [address] [place] [address], [place] [address] 28 Apr, 2012 [facility] [address] [id number] [address] [place] [address], [place] [address] Apr, [facility] [address] [id number] [address] [place] [address], [place] [address] Apr, [facility] [address] [id number] [address] [place] [address], [place] [address] Apr, [facility] [address] [id number] [address] [place] [address], [place] [address] Apr, [facility] [address] [id number] [address] [place] [address], [place] [address] Apr, [facility] [address] [id number] [address] [place] [address], [place] [address] 17 Apr, 2012 [facility] [address] [id number] [address] [place] [address], [place] [address] Apr, [facility] [address] [id number] [address] [place] [address], [place] [address] Apr, [facility] [address] [id number] [address] [place] [address], [place] [address] 30 Mar, 2012 [facility] [address] [id number] [address] [place] [address], [place] [address] 30 Mar, 2012 [facility] [address] [id number] [address] [place] [address], [place] [address] Mar, [facility] [address] [id number] [address] [place] [address], [place] [address] Mar, [facility] [address] [id number] [address] [place] [address], [place] [address] 16 Mar, 2012 [facility] [address] [id number] [address] [place] [address], [place] [address] 16 Mar, 2012 [facility] [address] [id number] [address] [place] [address], [place] [address] 16 Mar, 2012 [facility] [address] [id number] [address] [place] [address], [place] [address] 16 Mar, 2012 [facility] [address] [id number] [address] [place] [address], [place] [address] 16 Mar, 2012 [facility] [address] [id number] [address] [place] [address], [place] [address] 16 Mar, 2012 [facility] [address] [id number] [address] [place] [address], [place] [address] 14 Mar, 2012 [facility] [address] [id number] [address] [place] [address], [place] [address] 14 Mar, 2012 [facility] [address] [id number] [address] [place] [address], [place] [address] 13 Mar, 2012 [facility] [address] [id number] [address] [place] [address], [place] [address] 13 Mar, 2012 [facility] [address] [id number] [address] [place] [address], [place] [address] 06 Mar, 2012 [facility] [address] [id number] [address] [place] [address], [place] [address] Mar, [facility] [address] [id number] [address] [place] [id number] Mar, [facility] [address] [id number] [address] [place] [address], [place] [address] Mar, [facility] [address] [id number] [address] [place] [address], [place] [address] Mar, [facility] [address] [id number] [address] [place] [address], [place] [address] Feb, [facility] [address] [id number] [address] [place] [address], [place] [address] 31 Feb, 2012 [facility] [address] [id number] [address] [place] [address], [place] [address] Feb, [facility] [address] [id number] [address] [place] [address], [place] [address] Feb, [facility] [address] [id number] [address] [place] [address], [place] [address] Jan, [facility] [address] [id number] [address] [place] [address], [place] [address] Jan, [facility] [address] [id number] [address] [place] [address], [place] [address] Dec, [facility] [address] [id number] [address] [place] [address], [place] [address] Dec, [facility] [address] [id number] [address] [place] [address], [place] [address] Dec, [facility] [address] [id number] [address] [place] [address], [place] [address] Nov, [facility] [address] [id number] [address] [place] [address], [place] [address] Nov, [facility] [address] [id number] [address] [place] [address], [place] [address] Oct, [facility] [address] [id number] [address] [place] [address], [place] [address] Oct, [facility] [address] [id number] [address] [place] [address], [place] [address] September, [facility] [address] [id number] [address] [place] [address], [place] [address] September, [facility] [address] [id number] [address] [place] [address], [place] [address] September, [facility] [address] [id number] [address] [place] [address], [place] [address] September, [facility] [address] [id number] [address] [place] [address], [place] [address] Aug, [facility] [address] [id number] [address] [place] [address], [place] [address] Jul, [facility] [address] [id number] [address] [place] [address], [place] [address] Jul, [facility] [address] [id number] [address] [place] [address], [place] [address] Jun, [facility] [address] [id number] [address] [place] [address], [place] [address] Jun, [facility] [address] [id number] [address] [place] [address], [place] [address] Jun, [facility] [address] [id number] [address] [place] [address], [place] [address] May, [facility] [address] [id number] [address] [place] [address], [place] [address] May, [facility] [address] [id number] [address] [place] [address], [place] [address] May, [facility] [address] [id number] [address] [place] [address], [place] [address] May, [facility] [address] [id number] [address] [place] [address], [place] [address] Apr, [facility] [address] [id number] [address] [place] [address], [place] [address] Apr, [facility] [address] [id number] [address] [place] [address], [place] [address] Apr, [facility] [address] [id number] [address] [place] [address], [place] [address] Mar, [facility] [address] [id number] [address] [place] [address], [place] [address] 17 Mar, 2011 [facility] [address] [id number] [address] [place] [id number] Mar, [facility] [address] [id number] [address] [place] [address], [place] [address] Mar, [facility] [address] [id number] [address] [place] [id number] Mar, [facility] [address] [id number] [address] [place] [address], [place] [address] Feb, [facility] [address] [id number] [address] [place] [address], [place] [address] Feb, [facility] [address] [id number] [address] [place] [address], [place] [address] Feb, [facility] [address] [id number] [address] [place] [address], [place] [address] Feb, [facility] [address] [id number] [address] [place] [address] Feb, [facility] [address] [id number] [address] [place] [address], [place] [address] Feb, [facility] [address] [id number] [address] [place] [id number] Feb, [facility] [address] [id number] [address] [place] [address], [place] [address] Apr, [facility] [address] [id number] [address] [place] [address] Apr, [facility] [address] [id number] [address] [place] [id number] Apr, [facility] [address] [id number] [address] [place] [address], [place] [address] Apr, [facility] [address] [id number] [address] [place] [address], [place] [address] Apr, [facility] [address] [id number] [address] [place] [address], [place] [address] Apr, [facility] [address] [id number] [address] [place] [address], [place] [address] 18 Mar, 2010 [facility] [address] [id number] [address] [place] [address], [place] [id number] 18 Mar, 2010 [facility] [address] [id number] [address] [place] [address], [place] [id number] 17 Mar, 2010 [facility] [address] [id number] [address] [place] [address], [place] [id number] 16 Mar, 2010 [facility] [address] [id number] [address] [place] [address], [place] [id number] 10 Mar, 2010 [facility] [address] [id number] [address] [place] [address], [place] [id number] 10 Mar, 2010 [facility] [address] [id number] [address] [place] [address], [place] [address] Mar, [facility] [address] [id number] [address] [place] [address], [place] [id number] Mar, [facility] [address] [id number] [address] [place] [address], [place] [address] Feb, [facility] [address] [id number] [address] [place] [address], [place] [address] Feb, [facility] [address] [id number] [address] [place] [address], [place] [address] Dec, [facility] [address] [id number] [address] [place] [address], [place] [address] Jun, [facility] [address] [id number] [address] [place] [address], [place] [address] Jun, [facility] [address] [id number] [address] [place] [address], [place] [address] May, [facility] [address] [id number] [address] [place] [id number] Feb, [facility] [address] [id number] [address] [place] [id number] Feb, [facility] [address] [id number] [address] [place] [id number] Feb, [facility] [address] [id number] [address] [place] [id number] Feb, [facility] [address] [id number] [address] [place] [id number] Feb, [facility] [address] [id number] [address] [place] [id number] Feb, [facility] [address] [id number] [address] [place] [id number] Feb, [facility] [address] [id number] [address] [place] [id number] Jul, [facility] [address] [facility] [id number] [address] [place] [id number] Jun, IMMUNIZATIONS No Known Immunizations SOCIAL HISTORY [...] 08/2014 Hospitalization History Rt hand post op infection-[facility] 7 Hospitalization History cellulitus Right elbow-[facility] 12/09/16
--- OUTSIDE RECORDS SUMMARY | 2019-10-27 22:15 | XMS REPORT ---
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 [address] [id number] [place] [address] Nov, [facility] [address] [id number] [place] [address] Nov, [facility] [address] [id number] [facility] [place] [address] Nov, 2013 [facility] [address] [facility] [id number] [facility] [address] Nov, 2013 [facility] [address] [facility] [id number] [facility] [address] Nov, 2013 [facility] [address] [id number] [place] [address] Nov, 2013 [facility] [address] [facility] [id number] [place] [address] Nov, 2013 [facility] [address] [facility] [id number] [facility] [address] Nov, 2013 [facility] [address] [id number] [place] [address] Nov, 2013 [facility] [address] [id number] [place] [address] Nov, 2013 [facility] [address] [id number] [place] [address] Nov, 2013 [facility] [address] [facility] [id number] [place] [address] Nov, 2013 [facility] [address] [id number] [place] [address] Nov, [facility] [address] [id number] [place] [address] Nov, [facility] [address] [id number] [place] [address] Oct, [facility] [address] [facility] [id number] [facility] [place] [address] Oct, [facility] [address] [id number] [place] [address] Oct, [facility] [address] [id number] [place] [address] Oct, [facility] [address] [id number] [place] [address] Oct, [facility] [address] [id number] [facility] [address] Oct, [facility] [address] [facility] [id number] [place] [address] Oct, [facility] [address] [facility] [id number] [place] [address] Oct, [facility] [address] [id number] [place] [address] Oct, [facility] [address] [facility] [id number] [place] [address] Oct, [facility] [address] [facility] [id number] [place] [address] Oct, [facility] [address] [id number] [place] [address] Oct, [facility] [address] [id number] [place] [address] Oct, [facility] [address] [id number] [place] [address] Oct, [facility] [address] [id number] [place] [address] September, [facility] [address] [id number] [place] [address] September, [facility] [address] [id number] [place] [address] September, [facility] [address] [id number] [place] [address] September, [facility] [address] [facility] [id number] [place] [address] September, [facility] [address] [id number] [place] [address] September, [facility] [address] [facility] [id number] [place] [address] September, [facility] [address] [id number] [place] [address] September, [facility] [address] [id number] [place] [address] September, [facility] [address] [id number] [place] [address] September, [facility] [address] [id number] [place] [address] September, [facility] [address] [id number] [place] [address] September, [facility] [address] [facility] [id number] [place] [address] September, [facility] [address] [id number] [place] [address] Aug, [facility] [address] [id number] [place] [address] Aug, [facility] [address] [id number] [place] [address] Aug, [facility] [address] [id number] [place] [address] Aug, [facility] [address] [id number] [place] [address] Aug, [facility] [address] [id number] [place] [address] Aug, [facility] [address] [id number] [place] [address] Aug, [facility] [address] [id number] [place] [address] Aug, [facility] [address] [id number] [place] [address] Aug, [facility] [address] [id number] [place] [address] Aug, [facility] [address] [id number] [place] [address] Jul, [facility] [address] [id number] [place] [address] Jul, [facility] [address] [facility] [id number] [facility] [place] [address] Jul, [facility] [address] [facility] [id number] [place] [address] Jul, [facility] [address] [id number] [place] [address] Jul, [facility] [address] [id number] [place] [address] Jul, [facility] [address] [facility] [id number] [place] [address] Jul, [facility] [address] [id number] [place] [address] Jul, [facility] [address] [id number] [place] [address] Jun, [facility] [address] [id number] [place] [address] Jun, [facility] [address] [id number] [place] [address] 14 Jun, 2013 [facility] [address] [id number] [place] [address] 14 Jun, 2013 [facility] [address] [id number] [place] [address] Jun, [facility] [address] [id number] [place] [address] Jun, [facility] [address] [id number] [place] [address] Jun, [facility] [address] [id number] [place] [address] Jun, [facility] [address] [id number] [place] [address] 04 Jun, 2013 [facility] [address] [id number] [place] [address] Jun, [facility] [address] [facility] [id number] [place] [address] Jun, [facility] [address] [id number] [place] [address] Jun, [facility] [address] [id number] [place] [address] Jun, [facility] [address] [id number] [place] [address] Jun, [facility] [address] [facility] [id number] [place] [address] May, [facility] [address] [id number] [place] [address] May, [facility] [address] [id number] [place] [address] May, [facility] [place] [facility] [address] [id number] [place] [address] May, [facility] [place] [facility] [address] [id number] [place] [address] May, [facility] [place] [facility] [address] [id number] [place] [address] May, [facility] [place] [facility] [address] [id number] [place] [address] May, [facility] [place] [facility] [address] [id number] [place] [address] May, [facility] [place] [facility] [address] [id number] [place] [address] May, [facility] [place] [facility] [address] [id number] [place] [address] May, [facility] [place] [facility] [address] [id number] [place] [address] May, [facility] [place] [facility] [address] [id number] [place] [address] May, [facility] [place] [facility] [address] [id number] [place] [address] 16 May, 2013 [facility] [place] [facility] [address] [id number] [place] [address] May, [facility] [place] [facility] [address] [id number] [place] [address] May, [facility] [place] [facility] [address] [id number] [place] [address] May, [facility] [place] [facility] [address] [id number] [place] [address] May, [facility] [place] [facility] [address] [id number] [place] [address] May, [facility] [place] [facility] [address] [id number] [place] [address] May, [facility] [place] [facility] [address] [id number] [place] [address] May, [facility] [place] [facility] [address] [id number] [place] [address] Apr, [facility] [place] [facility] [address] [id number] [place] [address] 31 Apr, 2013 [facility] [place] [facility] [address] [id number] [place] [address] Apr, [facility] [place] [facility] [address] [id number] [place] [address] Apr, [facility] [place] [facility] [address] [id number] [place] [address] 19 Apr, 2013 [facility] [place] [facility] [address] [id number] [place] [address] 19 Apr, 2013 [facility] [place] [facility] [id number] [place] [address] 18 Apr, 2013 [facility] [place] [facility] [address] [id number] [place] [address] 18 Apr, 2013 [facility] [place] [facility] [address] [id number] [place] [address] 17 Apr, 2013 [facility] [place] [facility] [address] [id number] [place] [address] 17 Apr, 2013 [facility] [place] [facility] [address] [id number] [place] [address] Apr, [facility] [place] [facility] [address] [id number] [place] [address] Apr, [facility] [place] [facility] [address] [id number] [place] [address] Apr, [facility] [place] [facility] [address] [id number] [place] [address] Apr, [facility] [place] [facility] [address] [id number] [place] [address] Apr, [facility] [place] [facility] [address] [id number] [place] [address] Apr, [facility] [place] [facility] [address] [id number] [place] [address] Apr, [facility] [place] [facility] [address] [id number] [place] [address] Apr, [facility] [place] [facility] [address] [id number] [place] [address] 27 Mar, 2013 [facility] [place] [facility] [address] [id number] [place] [address] 27 Mar, 2013 [facility] [place] [facility] [address] [id number] [place] [address] 14 Mar, 2013 [facility] [place] [facility] [address] [id number] [place] [address] 14 Mar, 2013 [facility] [place] [facility] [address] [id number] [place] [address] 11 Mar, 2013 [facility] [place] [facility] [address] [id number] [place] [address] 11 Mar, 2013 [facility] [place] [facility] [address] [id number] [place] [address] 11 Mar, 2013 [facility] [place] [facility] [address] [id number] [place] [address] Mar, [facility] [place] [facility] [address] [facility] [id number] [place] [address] Mar, [facility] [place] [facility] [address] [facility] [id number] [place] [address] Mar, [facility] [place] [facility] [address] [id number] [place] [address] Mar, [facility] [place] [facility] [address] [id number] [place] [address] Feb, [facility] [place] [facility] [address] [facility] [id number] [facility] [place] [address] Feb, [facility] [place] [facility] [address] [id number] [place] [address] Feb, [facility] [place] [facility] [address] [id number] [place] [address] Feb, [facility] [place] [facility] [address] [id number] [place] [address] Feb, [facility] [place] [facility] [address] [id number] [place] [address] Dec, [facility] [place] [facility] [address] [id number] [place] [address] Dec, [facility] [place] [facility] [address] [id number] [place] [address] Dec, [facility] [place] [facility] [address] [id number] [place] [address] Dec, [facility] [place] [facility] [address] [facility] [id number] [place] [address] Nov, [facility] [place] [facility] [address] [facility] [id number] [place] [address] Nov, [facility] [place] [facility] [address] [id number] [place] [address] Nov, [facility] [place] [facility] [address] [id number] [place] [address] Nov, [facility] [place] [facility] [address] [id number] [place] [address] Nov, [facility] [place] [facility] [address] [id number] [place] [address] Nov, [facility] [place] [facility] [address] [id number] [place] [address] Oct, [facility] [place] [facility] [address] [id number] [place] [address] Oct, [facility] [place] [facility] [address] [id number] [place] [address] Oct, [facility] [place] [facility] [address] [id number] [place] [address] Oct, [facility] [place] [facility] [address] [id number] [place] [address] September, [facility] [place] [facility] [address] [id number] [place] [address] September, [facility] [place] [facility] [address] [id number] [place] [address] September, [facility] [address] [id number] [place] [address] September, [facility] [address] [id number] [place] [address] September, [facility] [address] [id number] [place] [address] September, [facility] [address] [id number] [place] [address] September, [facility] [address] [id number] [place] [address] September, [facility] [address] [id number] [place] [address] Aug, [facility] [address] [id number] [place] [address] Aug, [facility] [address] [id number] [place] [address] Jul, [facility] [address] [id number] [place] [address] Jun, [facility] [address] [id number] [place] [address] May, [facility] [address] [id number] [place] [address] May, [facility] [address] [id number] [place] [address] May, [facility] [address] [id number] [place] [address] May, [facility] [address] [id number] [place] [address] Apr, [facility] [address] [id number] [place] [address] Apr, [facility] [address] [id number] [place] [address] Apr, [facility] [address] [id number] [place] [address] Apr, [facility] [address] [id number] [place] [address] Apr, [facility] [address] [id number] [place] [address] Apr, [facility] [address] [id number] [place] [address] 17 Apr, 2012 [facility] [address] [id number] [place] [address] 14 Apr, 2012 [facility] [address] [id number] [place] [address] 14 Apr, 2012 [facility] [address] [id number] [place] [address] 30 Mar, 2012 [facility] [address] [id number] [place] [address] 30 Mar, 2012 [facility] [address] [id number] [place] [address] 27 Mar, 2012 [facility] [address] [id number] [place] [address] 27 Mar, 2012 [facility] [address] [id number] [place] [address] 16 Mar, 2012 [facility] [address] [id number] [place] [address] 16 Mar, 2012 [facility] [address] [id number] [place] [address] 16 Mar, 2012 [facility] [address] [id number] [place] [address] 16 Mar, 2012 [facility] [address] [id number] [place] [address] 16 Mar, 2012 [facility] [address] [id number] [place] [address] 16 Mar, 2012 [facility] [address] [id number] [place] [address] 14 Mar, 2012 [facility] [address] [id number] [place] [address] 14 Mar, 2012 [facility] [address] [id number] [place] [address] Mar, [facility] [address] [id number] [place] [address] 13 Mar, 2012 [facility] [address] [id number] [place] [address] 06 Mar, 2012 [facility] [address] [id number] [place] [address] Mar, [facility] [address] [id number] [place] [address] Mar, [facility] [address] [id number] [place] [address] Mar, [facility] [address] [id number] [place] [address] Mar, [facility] [address] [id number] [place] [address] Feb, [facility] [address] [id number] [place] [address] Feb, [facility] [address] [id number] [place] [address] Feb, [facility] [address] [id number] [place] [address] Feb, [facility] [address] [id number] [place] [address] Jan, [facility] [address] [id number] [place] [address] Jan, [facility] [address] [id number] [place] [address] Dec, [facility] [address] [id number] [place] [address] Dec, [facility] [address] [id number] [place] [address] Dec, [facility] [address] [id number] [place] [address] Nov, [facility] [address] [id number] [place] [address] Nov, [facility] [address] [id number] [place] [address] Oct, [facility] [address] [id number] [place] [address] Oct, [facility] [address] [id number] [place] [address] September, [facility] [id number] [place] [address] September, [facility] [address] [id number] [place] [address] September, [facility] [address] [id number] [place] [address] September, [facility] [address] [id number] [place] [address] Aug, [facility] [address] [id number] [place] [address] Jul, [facility] [address] [id number] [place] [address] Jul, [facility] [address] [id number] [place] [address] Jun, [facility] [address] [id number] [place] [address] Jun, [facility] [address] [id number] [place] [address] Jun, [facility] [address] [id number] [place] [address] May, [facility] [id number] [place] [address] May, [facility] [address] [id number] [place] [address] May, [facility] [address] [id number] [place] [address] May, [facility] [address] [id number] [place] [address] Apr, [facility] [address] [id number] [place] [address] Apr, [facility] [address] [id number] [place] [address] Apr, [facility] [address] [id number] [place] [address] Mar, [facility] [address] [id number] [place] [address] Mar, [facility] [address] [id number] [place] [address] Mar, [facility] [address] [id number] [place] [address] Mar, [facility] [address] [id number] [place] [address] Mar, [facility] [address] [id number] [facility] [place] [address] Feb, [facility] [address] [id number] [place] [address] Feb, [facility] [address] [id number] [place] [address] Feb, [facility] [address] [id number] [facility] [place] [address] Feb, [facility] [address] [id number] [place] [address] Feb, [facility] [address] [id number] [place] [address] Feb, [facility] [address] [id number] [place] [address] Feb, [facility] [address] [id number] [place] [address] Apr, [facility] [address] [id number] [place] [address] Apr, [facility] [address] [id number] [place] [address] 15 Apr, 2010 [facility] [address] [id number] [place] [address] 15 Apr, 2010 [facility] [address] [id number] [place] [address] Apr, [facility] [address] [id number] [place] [address] Apr, [facility] [address] [id number] [place] [address] Mar, [facility] [address] [id number] [place] [address] Mar, [facility] [address] [id number] [place] [address] 17 Mar, 2010 [facility] [address] [facility] [id number] [place] [address] 16 Mar, 2010 [facility] [address] [id number] [place] [address] Mar, [facility] [address] [id number] [place] [address] Mar, [facility] [address] [id number] [place] [address] Mar, [facility] [address] [id number] [place] [address] Mar, [facility] [address] [id number] [place] [address] Feb, [facility] [address] [id number] [place] [address] Feb, [facility] [address] [id number] [place] [address] Dec, [facility] [address] [id number] [place] [address] Jun, [facility] [address] [id number] [place] [address] Jun, [facility] [address] [id number] [place] [address] May, [facility] [address] [id number] [place] [address] Feb, [facility] [address] [id number] [place] [address] Feb, [facility] [address] [id number] [place] [address] Feb, [facility] [address] [id number] [place] [address] 15 Feb, 2009 [facility] [address] [id number] [place] [address] 15 Feb, 2009 [facility] [address] [id number] [place] [address] Feb, [facility] [address] [id number] [place] [address] Feb, [facility] [address] [id number] [place] [address] Jul, [facility] [address] [id number] [place] [address] Jun, IMMUNIZATIONS No Known Immunizations SOCIAL HISTORY [...] op infection-[facility] 7 Hospitalization History cellulitus Right elbow-[facility] 12/09/16
--- OUTSIDE RECORDS SUMMARY | 2019-10-27 22:16 | XMS REPORT ---
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 [id number] [place] [address] Mar, [facility] [place] [facility] [address] [id number] [place] [address] Mar, [facility] [place] [facility] [address] [id number] [place] [address] 16 Feb, 2014 [facility] [place] [facility] [address] [id number] [place] [address] 16 Feb, 2014 [facility] [place] [facility] [address] [id number] [place] [address] 18 Jan, 2014 [facility] [place] [facility] [address] [id number] [place] [address] 18 Jan, 2014 [facility] [place] [facility] [address] [id number] [place] [address] 18 Jan, 2014 [facility] [place] [facility] [id number] [place] [address] 18 Jan, 2014 [facility] [place] [facility] [address] [id number] [place] [address] 12 Jan, 2014 [facility] [place] [facility] [address] [id number] [place] [address] Jan, [facility] [place] [facility] [address] [id number] [place] [id number] Jan, [facility] [place] [facility] [address] [facility] [id number] [place] [address] Jan, [facility] [place] [facility] [address] [id number] [place] [address] Jan, [facility] [place] [facility] [address] [id number] [place] [address] Jan, [facility] [place] [facility] [address] [id number] [place] [address] Dec, [facility] [place] [facility] [address] [id number] [place] [address] Dec, [facility] [place] [facility] [address] [id number] [place] [address] Dec, [facility] [place] [facility] [address] [id number] [place] [address] Dec, [facility] [place] [facility] [address] [id number] [place] [address] Dec, [facility] [place] [facility] [address] [id number] [place] [address] Dec, [facility] [place] [facility] [address] [id number] [place] [address] Dec, [facility] [place] [facility] [address] [id number] [place] [address] Dec, [facility] [place] [facility] [address] [id number] [place] [address] Dec, [facility] [place] [facility] [address] [id number] [place] [address] Nov, [facility] [place] [facility] [address] [id number] [place] [address] Nov, [facility] [place] [facility] [address] [id number] [place] [address] Nov, [facility] [place] [facility] [address] [id number] [place] [address] Nov, 2013 [facility] [place] [facility] [address] [facility] [id number] [place] [address] Nov, 2013 [facility] [place] [facility] [address] [facility] [id number] [facility] [place] [address] Nov, 2013 [facility] [place] [facility] [address] [facility] [id number] [place] [address] Nov, 2013 [facility] [place] [facility] [address] [facility] [id number] [facility] [place] [address] Nov, 2013 [facility] [place] [facility] [address] [facility] [id number] [facility] [place] [address] Nov, 2013 [facility] [place] [facility] [address] [id number] [place] [address] Nov, 2013 [facility] [place] [facility] [address] [id number] [place] [address] Nov, 2013 [facility] [place] [facility] [address] [id number] [place] [address] Nov, 2013 [facility] [place] [facility] [address] [facility] [id number] [place] [address] Nov, 2013 [facility] [place] [facility] [address] [id number] [place] [address] Nov, 2013 [facility] [place] [facility] [address] [id number] [place] [address] Nov, 2013 [facility] [place] [facility] [address] [id number] [place] [address] Oct, [facility] [place] [facility] [address] [facility] [id number] [place] [address] Oct, [facility] [place] [facility] [address] [facility] [id number] [place] [address] Oct, [facility] [place] [facility] [address] [facility] [id number] [place] [address] Oct, [facility] [place] [facility] [address] [id number] [place] [address] Oct, 2013 [facility] [place] [facility] [address] [facility] [id number] [place] [address] Oct, [facility] [place] [facility] [address] [id number] [place] [address] Oct, [facility] [place] [facility] [address] [facility] [id number] [place] [address] Oct, [facility] [place] [facility] [address] [id number] [place] [address] Oct, [facility] [place] [facility] [address] [facility] [id number] [place] [address] Oct, [facility] [place] [facility] [address] [id number] [place] [address] Oct, [facility] [place] [facility] [address] [id number] [place] [address] Oct, [facility] [place] [facility] [address] [id number] [place] [address] Oct, [facility] [place] [facility] [address] [id number] [place] [address] Oct, [facility] [place] [facility] [address] [id number] [place] [address] September, [facility] [place] [facility] [address] [id number] [place] [address] September, [facility] [place] [facility] [address] [id number] [place] [address] September, [facility] [place] [facility] [address] [id number] [place] [address] September, [facility] [place] [facility] [address] [id number] [place] [address] September, [facility] [place] [facility] [address] [id number] [place] [address] September, [facility] [place] [facility] [address] [id number] [place] [address] September, [facility] [place] [facility] [address] [id number] [place] [address] September, [facility] [place] [facility] [address] [id number] [place] [address] September, [facility] [place] [facility] [address] [id number] [place] [address] September, [facility] [place] [facility] [address] [id number] [place] [address] September, [facility] [place] [facility] [address] [id number] [place] [address] September, [facility] [place] [facility] [address] [id number] [place] [address] September, [facility] [place] [facility] [address] [id number] [place] [address] Aug, [facility] [place] [facility] [address] [id number] [place] [address] Aug, [facility] [place] [facility] [address] [id number] [place] [address] Aug, [facility] [place] [facility] [address] [id number] [place] [address] Aug, [facility] [place] [facility] [address] [id number] [place] [address] Aug, [facility] [place] [facility] [address] [id number] [place] [address] Aug, [facility] [place] [facility] [address] [id number] [place] [address] Aug, [facility] [place] [facility] [address] [id number] [place] [address] Aug, [facility] [place] [facility] [address] [id number] [place] [address] Aug, [facility] [place] [facility] [address] [id number] [place] [address] Aug, [facility] [place] [facility] [address] [id number] [place] [address] Jul, [facility] [place] [facility] [address] [id number] [place] [address] Jul, [facility] [place] [facility] [address] [facility] [id number] [place] [address] Jul, [facility] [place] [facility] [address] [facility] [id number] [facility] [place] [address] Jul, [facility] [place] [facility] [address] [id number] [place] [address] Jul, [facility] [place] [facility] [address] [id number] [place] [address] Jul, [facility] [place] [facility] [address] [facility] [id number] [facility] [place] [address] Jul, [facility] [place] [facility] [address] [id number] [place] [address] Jul, [facility] [place] [facility] [address] [id number] [place] [address] Jun, [facility] [place] [facility] [address] [id number] [place] [address] Jun, [facility] [place] [facility] [address] [id number] [place] [address] Jun, [facility] [place] [facility] [address] [id number] [place] [address] 14 Jun, 2013 [facility] [place] [facility] [address] [id number] [place] [address] Jun, [facility] [place] [facility] [address] [id number] [place] [address] Jun, [facility] [place] [facility] [address] [id number] [place] [address] Jun, [facility] [place] [facility] [address] [id number] [place] [address] Jun, [facility] [place] [facility] [address] [id number] [place] [address] Jun, [facility] [place] [facility] [address] [id number] [place] [address] Jun, [facility] [place] [facility] [address] [id number] [place] [address] Jun, [facility] [place] [facility] [address] [id number] [place] [address] Jun, [facility] [place] [facility] [address] [id number] [place] [address] Jun, [facility] [place] [facility] [address] [id number] [place] [address] Jun, [facility] [place] [facility] [address] [id number] [place] [address] May, [facility] [place] [facility] [address] [id number] [place] [address] May, [facility] [place] [facility] [address] [id number] [place] [address] May, [facility] [place] [facility] [address] [id number] [place] [address] May, [facility] [place] [facility] [address] [id number] [place] [address] May, [facility] [address] [id number] [place] [address] May, [facility] [address] [id number] [place] [address] May, [facility] [address] [id number] [place] [address] May, [facility] [address] [id number] [place] [address] May, [facility] [address] [id number] [place] [address] May, [facility] [address] [id number] [place] [address] May, [facility] [address] [id number] [place] [address] May, [facility] [address] [id number] [place] [address] 16 May, 2013 [facility] [address] [id number] [place] [address] May, [facility] [address] [id number] [place] [address] May, [facility] [address] [id number] [place] [address] May, [facility] [address] [id number] [place] [address] May, [facility] [address] [id number] [place] [address] May, [facility] [address] [id number] [place] [address] May, [facility] [address] [id number] [place] [address] May, [facility] [address] [id number] [place] [address] Apr, [facility] [address] [id number] [place] [address] 31 Apr, 2013 [facility] [address] [id number] [place] [address] Apr, [facility] [address] [id number] [place] [address] 26 Apr, 2013 [facility] [address] [id number] [place] [address] Apr, [facility] [address] [id number] [place] [address] 19 Apr, 2013 [facility] [address] [id number] [place] [address] 18 Apr, 2013 [facility] [address] [id number] [place] [address] 18 Apr, 2013 [facility] [address] [id number] [place] [address] 17 Apr, 2013 [facility] [address] [id number] [place] [address] 17 Apr, 2012 [facility] [address] [id number] [place] [address] Apr, [facility] [address] [id number] [place] [address] Apr, [facility] [address] [id number] [place] [address] Apr, [facility] [address] [id number] [place] [address] Apr, [facility] [address] [id number] [place] [address] Apr, [facility] [address] [id number] [place] [address] Apr, [facility] [address] [id number] [place] [address] Apr, [facility] [address] [id number] [place] [address] Apr, [facility] [address] [id number] [place] [address] Mar, [facility] [address] [id number] [place] [address] 27 Mar, 2013 [facility] [address] [id number] [place] [address] 14 Mar, 2013 [facility] [address] [id number] [place] [address] 14 Mar, 2013 [facility] [address] [id number] [place] [address] 11 Mar, 2013 [facility] [address] [id number] [place] [address] 11 Mar, 2013 [facility] [address] [id number] [place] [address] 11 Mar, 2013 [facility] [address] [id number] [place] [address] Mar, [facility] [address] [id number] [place] [address] Mar, [facility] [address] [id number] [place] [address] Mar, [facility] [address] [id number] [place] [address] Mar, [facility] [address] [id number] [place] [address] Feb, [facility] [address] [id number] [place] [address] Feb, [facility] [address] [id number] [place] [address] Feb, [facility] [address] [id number] [place] [address] Feb, [facility] [address] [id number] [place] [address] Feb, [facility] [address] [id number] [place] [address] Dec, [facility] [address] [id number] [place] [address] Dec, [facility] [address] [id number] [place] [address] Dec, [facility] [address] [id number] [place] [address] Dec, [facility] [address] [id number] [place] [address] Nov, [facility] [address] [id number] [place] [address] Nov, [facility] [address] [id number] [place] [address] Nov, [facility] [address] [id number] [place] [address] Nov, [facility] [address] [id number] [place] [address] Nov, [facility] [address] [id number] [facility] [place] [address] Nov, [facility] [address] [id number] [facility] [place] [address] Oct, [facility] [address] [id number] [facility] [place] [address] Oct, [facility] [address] [id number] [facility] [place] [address] Oct, [facility] [address] [id number] [facility] [place] [address] Oct, [facility] [address] [id number] [place] [address] September, [facility] [address] [id number] [facility] [place] [address] September, [facility] [address] [id number] [place] [address] September, [facility] [address] [id number] [facility] [place] [address] September, [facility] [address] [id number] [place] [address] September, [facility] [address] [id number] [place] [address] September, [facility] [address] [id number] [place] [address] September, [facility] [address] [id number] [facility] [place] [address] September, [facility] [address] [id number] [place] [address] Aug, [facility] [address] [id number] [place] [address] Aug, [facility] [address] [id number] [facility] [place] [address] Jul, [facility] [address] [id number] [place] [address] Jun, [facility] [address] [id number] [place] [address] May, [facility] [address] [id number] [place] [address] May, [facility] [address] [id number] [place] [address] May, [facility] [address] [id number] [place] [address] May, [facility] [address] [id number] [place] [address] Apr, [facility] [address] [id number] [place] [address] Apr, [facility] [address] [id number] [place] [address] Apr, [facility] [address] [id number] [place] [address] Apr, [facility] [address] [id number] [place] [address] Apr, [facility] [address] [id number] [place] [address] Apr, [facility] [address] [id number] [place] [address] 17 Apr, 2012 [facility] [address] [id number] [place] [address] 14 Apr, 2012 [facility] [address] [id number] [place] [address] 14 Apr, 2012 [facility] [address] [id number] [place] [address] 30 Mar, 2012 [facility] [address] [id number] [place] [address] 30 Mar, 2012 [facility] [address] [id number] [place] [address] Mar, [facility] [address] [id number] [place] [address] 27 Mar, 2012 [facility] [address] [id number] [place] [address] 16 Mar, 2012 [facility] [address] [id number] [place] [address] 16 Mar, 2012 [facility] [address] [id number] [place] [address] 16 Mar, 2012 [facility] [address] [id number] [place] [address] 16 Mar, 2012 [facility] [address] [id number] [place] [address] 16 Mar, 2012 [facility] [address] [id number] [place] [address] 16 Mar, 2012 [facility] [address] [id number] [place] [address] 14 Mar, 2012 [facility] [address] [id number] [place] [address] 14 Mar, 2012 [facility] [address] [id number] [place] [address] 13 Mar, 2012 [facility] [address] [id number] [place] [address] 13 Mar, 2012 [facility] [address] [id number] [place] [address] 06 Mar, 2012 [facility] [address] [id number] [place] [address] Mar, [facility] [address] [id number] [place] [address] Mar, [facility] [address] [id number] [place] [address] Mar, [facility] [address] [id number] [place] [address] Mar, [facility] [address] [id number] [place] [address] Feb, [facility] [address] [facility] [id number] [facility] [place] [address] Feb, [facility] [address] [facility] [id number] [place] [address] Feb, [facility] [address] [id number] [place] [address] Feb, [facility] [address] [id number] [place] [address] Jan, [facility] [address] [facility] [id number] [facility] [place] [address] Jan, [facility] [address] [id number] [place] [address] Dec, [facility] [address] [id number] [place] [address] Dec, [facility] [address] [id number] [place] [address] Dec, [facility] [address] [id number] [place] [address] Nov, [facility] [address] [id number] [place] [address] Nov, [facility] [address] [id number] [place] [address] Oct, [facility] [address] [id number] [place] [address] Oct, [facility] [address] [id number] [place] [address] September, [facility] [address] [id number] [place] [address] September, [facility] [address] [id number] [place] [address] September, [facility] [address] [id number] [place] [address] September, [facility] [address] [id number] [place] [address] 05 Aug, 2011 [facility] [address] [id number] [place] [address] Jul, [facility] [address] [id number] [place] [address] Jul, [facility] [address] [id number] [place] [address] Jun, [facility] [address] [id number] [place] [address] Jun, [facility] [address] [id number] [place] [address] Jun, [facility] [address] [id number] [place] [address] May, [facility] [address] [id number] [place] [address] May, [facility] [address] [id number] [place] [address] May, [facility] [address] [id number] [place] [address] May, [facility] [address] [id number] [place] [address] Apr, [facility] [address] [id number] [place] [address] Apr, [facility] [address] [id number] [place] [address] Apr, [facility] [address] [id number] [place] [address] Mar, [facility] [id number] [place] [address] Mar, [facility] [address] [id number] [place] [address] Mar, [facility] [address] [id number] [place] [address] Mar, [facility] [address] [facility] [id number] [facility] [place] [address] Mar, [facility] [address] [facility] [id number] [facility] [place] [address] Feb, [facility] [address] [id number] [place] [address] Feb, [facility] [address] [id number] [facility] [place] [address] Feb, [facility] [address] [facility] [id number] [facility] [place] [address] Feb, [facility] [address] [id number] [place] [address] Feb, [facility] [address] [id number] [place] [address] Feb, [facility] [address] [id number] [place] [address] Feb, [facility] [address] [id number] [place] [address] Apr, [facility] [address] [id number] [place] [address] Apr, [facility] [address] [id number] [place] [address] 15 Apr, 2010 [facility] [address] [id number] [place] [address] Apr, [facility] [address] [id number] [place] [address] Apr, [facility] [address] [id number] [place] [address] Apr, [facility] [address] [id number] [place] [address] Mar, [facility] [address] [id number] [place] [address] Mar, [facility] [address] [id number] [place] [address] 17 Mar, 2010 [facility] [address] [facility] [id number] [place] [address] 16 Mar, 2010 [facility] [address] [id number] [place] [address] Mar, [facility] [address] [id number] [place] [address] Mar, [facility] [address] [id number] [place] [address] Mar, [facility] [address] [id number] [place] [address] Mar, [facility] [address] [id number] [place] [address] Feb, [facility] [address] [id number] [place] [address] Feb, [facility] [address] [id number] [place] [address] Dec, [facility] [address] [id number] [place] [address] Jun, [facility] [address] [id number] [place] [address] Jun, [facility] [address] [id number] [place] [address] May, [facility] [address] [id number] [place] [address] Feb, [facility] [address] [id number] [place] [address] Feb, [facility] [address] [id number] [place] [address] Feb, [facility] [address] [id number] [place] [address] Feb, [facility] [address] [id number] [place] [address] 15 Feb, 2009 [facility] [address] [id number] [place] [address] Feb, [facility] [address] [id number] [place] [address] Feb, [facility] [address] [id number] [place] [address] Jul, [facility] [address] [id number] [place] [address] Jun, IMMUNIZATIONS No Known Immunizations SOCIAL HISTORY [...] 08/2014 Hospitalization History Rt hand post op infection-[facility] 7 Hospitalization History cellulitus Right elbow-[facility] 12/09/16
[2019-10-27] MEDS ORDERED: LIDOCAINE 2% VISCOUS 15 ML UDC ONE (22:23)
--- OUTSIDE RECORDS SUMMARY | 2019-10-27 22:44 | XMS REPORT | Continuity of Care Document ---
Author Organization Unknown Address Unknown Phone Unavailable Allergies Active Description Code Type Severity Reaction Onset Reported/Identified Relationship to Patient Clinical Status Yes COMPAZINE UNKNOWN UNKNOWN Yes PENICILLINS UNKNOWN UNKNOWN Yes ANTI-EMETICS ANTI-EMETICS Mild N/A 03/26/2008 Yes [...] Drug Allergy N/A N/A 01/22/2014 Yes morphine [id number] Drug Allergy Mild RASH 07/01/2017 Yes Penicillins [id number] Drug Aller gy Mild N/A 07/01/2017 Yes oxycodone [id number] Drug Allergy Unknown N/A 07/01/[id number] francie Allergy Mild N/A 07/22/2019 Yes Penicillins [id number] Drug Aller gy Mild Has had Ancef w 07/22/2019 Yes prochlorperazine [id number] Drug Allergy Mild N/A 07/22/2019 Medications Medication Packaging Start Date St op Date Route Dosage Sig MORPHINE SYRINGE INJ 2 MG/CC MG 11/25/2016 11/25/2016 ONCE&2013 Problems Date Dx Coded Attending Type Code Diagnosis Diagnosed By 12/15/2007 BEAR YOUNG DO 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 12/15/2007 BEAR YOUNG DO 309.9 Ad Adj D/o Nos 12/15/2007 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 12/15/2007 309.9 Ad A dj D/o Nos 12/15/2007 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 12/15/2007 309.9 Ad A dj D/o Nos 12/15/2007 BEAR YOUNG DO 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 12/15/2007 BEAR YOUNG DO 309.9 Ad Adj D/o Nos 12/15/2007 ALICJA GARCIA APRNRICIA R 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 12/15/2007 ALICJA GARCIA APRNRICIA R 309.9 Ad Adj D/o Nos 12/15/2007 [...] 309.9 Ad A dj D/o Nos 12/15/2007 RANJAN NEW ACCOUNTS REPRESENTATIVE, NENO S 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 12/15/2007 RANJAN MURILLON, NENO S 309.9 Ad Adj D/o Nos 12/15/2007 DOUGLAS LEAL MD 307.4 7 Si Dyssomnia Nos 12/15/2007 DOUGLAS LEAL MD 309.9 Ad Adj D/o Nos 12/15/2007 OMAR ADORNO APRN 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 12/15/2007 OMAR ADORNO APRN T 30 9.9 Ad Adj D/o Nos 12/15/2007 RANJANELOISA MURILLON, NENO S 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 12/15/2007 RANJAN FRAGOSO, NENO S 309.9 Ad Adj D/o Nos 12/15/2007 OMAR ADORNO APRN 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 12/15/2007 OMAR ADORNO APRN T 30 9.9 Ad Adj D/o Nos 12/15/2007 DOUGLAS LEAL MD 307.4 7 Si Dyssomnia Nos 12/15/2007 DOUGLAS LEAL MD 309.9 Ad Adj D/o Nos 12/15/2007 AREN BAZAN LCPC B 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 12/15/2007 AREN BAZAN LCPC B 30 9.9 Ad Adj D/o Nos 12/15/2007 RANJAN FRAGOSO, NENO S 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 12/15/2007 RANJAN FRAGOSO, NENO S 309.9 Ad Adj D/o Nos 12/15/2007 BRENDA PHD, KAREN Quinn 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 12/15/2007 BRENDA PHD, KAREN Quinn 309.9 Ad Adj D/o Nos 12/15/2007 BRENDA PBALO, KAREN Quinn 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 12/15/2007 BRENDA PHD, KAREN Quinn 309.9 Ad Adj D/o Nos 12/15/2007 RANJAN MURILLON, NENO S 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 12/15/2007 RANJAN MURILLON, NENO S 309.9 Ad Adj D/o Nos 12/15/2007 RANJAN MURILLON, NENO S 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 12/15/2007 RANJAN NEW ACCOUNTS REPRESENTATIVE, NENO S 309.9 Ad Adj D/o Nos 12/15/2007 DALY CASHERO NEW ACCOUNTS REPRESENTATIVE, ROBERTO N 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 12/15/2007 DALY CASHERO NEW ACCOUNTS REPRESENTATIVE, ROBERTO N 309.9 Ad Adj D/o Nos 12/15/2007 RANJAN NEW ACCOUNTS REPRESENTATIVE, NENO S 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 12/15/2007 RANJAN NEW ACCOUNTS REPRESENTATIVE, NENO S 309.9 Ad Adj D/o Nos 12/15/2007 BRENDA PHD, KAREN Quinn 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 12/15/2007 BRENDA PHD, KAREN Quinn 309.9 Ad Adj D/o Nos 12/15/2007 MARIAN NEW ACCOUNTS REPRESENTATIVE, PRIETO R 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 12/15/2007 MARIAN NEW ACCOUNTS REPRESENTATIVE, PRIETO R 309.9 Ad Adj D/o Nos 12/15/2007 DOUGLAS LEAL MD 307.4 7 Si Dyssomnia Nos 12/15/2007 DOUGLAS LEAL MD 309.9 Ad Adj D/o Nos 12/15/2007 BRENDA PHD, KAREN Quinn 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 12/15/2007 BRENDA PHD, KAREN Quinn 309.9 Ad Adj D/o Nos 12/15/2007 DIONNA NEW ACCOUNTS REPRESENTATIVE, LAURIE 307 .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 12/15/2007 DIONNA NEW ACCOUNTS REPRESENTATIVE, LAURIE 309 .9 Ad Adj D/o Nos 12/15/2007 RANJAN NEW ACCOUNTS REPRESENTATIVE, NENO S 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 12/15/2007 RANJAN NEW ACCOUNTS REPRESENTATIVE, NENO S 309.9 Ad Adj D/o Nos 12/15/2007 DIONNA NEW ACCOUNTS REPRESENTATIVE, LAURIE 307 .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 12/15/2007 DIONNA NEW ACCOUNTS REPRESENTATIVE, LAURIE 309 .9 Ad Adj D/o Nos 12/15/2007 DIONNA NEW ACCOUNTS REPRESENTATIVE, LAURIE 307 .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 12/15/2007 DIONNA NEW ACCOUNTS REPRESENTATIVE, LAURIE 309 .9 Ad Adj D/o Nos 12/15/2007 DIONNA NEW ACCOUNTS REPRESENTATIVE, LAURIE 307 .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 12/15/2007 DIONNA NEW ACCOUNTS REPRESENTATIVE, LAURIE 309 .9 Ad Adj D/o Nos 12/15/2007 OMAR ADORNO APRN 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 12/15/2007 OMAR ADORNO APRN 30 9.9 Ad Adj D/o Nos 12/15/2007 DIONNA NEW ACCOUNTS REPRESENTATIVE, LAURIE 307 .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 12/15/2007 DIONNA NEW ACCOUNTS REPRESENTATIVE, LAURIE 309 .9 Ad Adj D/o Nos [...] 9.9 Ad Adj D/o Nos 12/15/2007 DIONNA NEW ACCOUNTS REPRESENTATIVE, LAURIE 307 .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 12/15/2007 DIONNA NEW ACCOUNTS REPRESENTATIVE, LAURIE 309 .9 Ad Adj D/o Nos 12/15/2007 YOUNG DO, BEAR K 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 12/15/2007 YOUNG DO, BEAR K 309.9 Ad Adj D/o Nos 12/15/2007 MARIAN FRAGOSO, PRIETO R 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 12/15/2007 MARIAN FRAGOSO, PRIETO R 309.9 Ad Adj D/o Nos 12/15/2007 DIONNA NEW ACCOUNTS REPRESENTATIVE, LAURIE 307 .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 12/15/2007 DIONNA NEW ACCOUNTS REPRESENTATIVE, LAURIE 309 .9 Ad Adj D/o Nos 12/15/2007 MARIAN NEW ACCOUNTS REPRESENTATIVE, PRIETO R 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9 Cell ulitis 01/02/2008 682.9 Cell ulitis 01/02/2008 682.9 Cell ulitis 01/02/2008 682.9 Cell ulitis 01/02/2008 682.9 Cell ulitis 01/02/2008 682.9 Cell ulitis 01/02/2008 682.9 Cell ulitis 01/02/2008 682.9 Cell ulitis 01/02/2008 682.9 Cell ulitis 01/02/2008 682.9 Cell ulitis 01/02/2008 RANJAN FRAGOSO, NENO S 682.9 Cellulitis 01/02/2008 DOUGLAS LEAL MD 682.9 Cellulitis 01/02/2008 OMAR ADORNO APRN 68 2.9 Cellulitis 01/02/2008 RANJAN FRAGOSO, NENO S 682.9 Cellulitis 01/02/2008 OMAR ADORNO APRN 68 2.9 Cellulitis 01/02/2008 DOUGLAS LEAL MD 682.9 Cellulitis 01/02/2008 BENI STEEL ENGRAVER, AREN [place] 68 2.9 Cellulitis 01/02/2008 RANJAN FRAGOSO, NENO S 682.9 Cellulitis 01/02/2008 BRENDA PHD, KAREN Quinn 682.9 Cellulitis 01/02/2008 BRENDA PHD, KAREN Quinn 682.9 Cellulitis 01/02/2008 RANJAN FRAGOSO, NENO S 682.9 Cellulitis 01/02/2008 RANJAN FRAGOSO, NENO S 682.9 Cellulitis 01/02/2008 ROBERTO YATES APRN 682.9 Cellulitis 01/02/2008 RANJAN FRAGOSO, NENO S 682.9 Cellulitis 01/02/2008 BRENDA PABLO, KAREN Quinn 682.9 Cellulitis 01/02/2008 MARIAN FRAGOSO, PRIETO R 682.9 Cellulitis 01/02/2008 DOUGLAS LEAL MD 682.9 Cellulitis 01/02/2008 BRENDA PABLO, KAREN Quinn 682.9 Cellulitis 01/02/2008 DIONNA NEW ACCOUNTS REPRESENTATIVE, LAURIE 682 .9 Cellulitis 01/02/2008 RANJAN NEW ACCOUNTS REPRESENTATIVE, NENO S 682.9 Cellulitis 01/02/2008 DIONNA NEW ACCOUNTS REPRESENTATIVE, LAURIE 682 .9 Cellulitis 01/02/2008 DIONNA NEW ACCOUNTS REPRESENTATIVE, LAURIE 682 .9 Cellulitis 01/02/2008 DIONNA NEW ACCOUNTS REPRESENTATIVE, LAURIE 682 .9 Cellulitis 01/02/2008 OMAR ADORNO APRN 68 2.9 Cellulitis 01/02/2008 DIONNA NEW ACCOUNTS REPRESENTATIVE, LAURIE 682 .9 Cellulitis 01/02/2008 ROSHAN DDS, KAITLIN Cortez 68 2.9 Cellulitis 01/02/2008 ESPINOZA DDSJULI 68 2.9 Cellulitis 01/02/2008 ESPINOZA JOSE MIGUELS, JULI 68 2.9 Cellulitis 01/02/2008 DIONNA NEW ACCOUNTS REPRESENTATIVE, LAURIE 682 .9 Cellulitis 01/02/2008 BEAR YOUNG DO K 682.9 Cellulitis 01/02/2008 MARIAN NEW ACCOUNTS REPRESENTATIVE, PRIETO R 682.9 Cellulitis 01/02/2008 DIONNA NEW ACCOUNTS REPRESENTATIVE, LAURIE 682 .9 Cellulitis 01/02/2008 MARIAN FRAGOSO, PRIETO R 682.9 Cellulitis 01/02/2008 MARIAN NEW ACCOUNTS REPRESENTATIVE, PRIETO R 682.9 Cellulitis 01/02/2008 DOUGLAS LEAL MD 682.9 Cellulitis 01/02/2008 BEAR YOUNG DO 682.9 Cellulitis 01/03/2008 BEAR YOUNG DO 300.00 [...] Ad A dj D/o W Depressed 01/03/2008 YUKI WOODRUFF APRNA S 300.00 An Anxiety Unspec 01/03/2008 KATIE WOODRUFF APRNNDA S 301.83 PD BORDERLINE 01/03/2008 KATIE WOODRUFF APRNNDA S 309.0 Ad Adj D/o W Depressed [...] WOODRUFF APRNA S 301.83 PD BORDERLINE 01/03/2008 RANJAN NEW ACCOUNTS REPRESENTATIVE, NENO S 309.0 Ad Adj D/o W [...] 309.0 Ad Adj D/o W Depressed 01/03/2008 KATIE WOODRUFF APRNNDA S 300.00 An Anxiety Unspec 01/03/2008 KATIE WOODRUFF APRNNDA S 301.83 PD BORDERLINE 01/03/2008 KATIE WOODRUFF APRNNDA S 309.0 Ad Adj D/o W Depressed 01/03/2008 KATIE WOODRUFF APRNNDA S 300.00 An Anxiety Unspec 01/03/2008 KATIE WOODRUFF APRNNDA S 301.83 PD BORDERLINE 01/03/2008 KATIE WOODRUFF APRNNDA S 309.0 Ad Adj D/o W Depressed 01/03/2008 ROBERTO YATES APRN N 300.00 An Anxiety Unspec 01/03/2008 ROBERTO YATES APRN N 301.83 PD BORDERLINE 01/03/2008 ROBERTO YTAES APRN N 309.0 Ad Adj D/o W Depressed 01/03/2008 KATIE WOODRUFF APRNNDA S 300.00 An Anxiety Unspec 01/03/2008 KATIE WOODRUFF APRNNDA S 301.83 PD BORDERLINE 01/03/2008 KATIE WOODRUFF APRNNDA S 309.0 Ad Adj D/o W Depressed 01/03/2008 KAREN GUTIERREZ PHD 300.00 An Anxiety Unspec 01/03/2008 BRENDA PABLO, KAREN Quinn 301.83 PD BORDERLINE 01/03/2008 KAREN GUTIERREZ PHD 309.0 Ad Adj D/o W Depressed 01/03/2008 MARIAN FRAGOSO PRIETO R 300.00 An Anxiety Unspec 01/03/2008 MARIAN FRAGOSO PRIETO R 301.83 PD BORDERLINE 01/03/2008 MARIAN RFAGOSO PRIETO R 309.0 Ad Adj D/o W [...] Ad Adj D/o W Depressed 01/03/2008 DIONNA NEW ACCOUNTS REPRESENTATIVE, LAURIE 300 .00 An Anxiety Unspec 01/03/2008 DIONNA NEW ACCOUNTS REPRESENTATIVE, LAURIE 301 .83 PD BORDERLINE 01/03/2008 DIONNA NEW ACCOUNTS REPRESENTATIVE, LAURIE 309 .0 Ad Adj D/o W Depressed 01/03/2008 KATIE WOODRUFF APRNNDA S 300.00 An Anxiety Unspec 01/03/2008 KATIE WOODRUFF APRNNDA S 301.83 PD BORDERLINE 01/03/2008 KATIE WOODRUFF APRNNDA S 309.0 Ad Adj D/o W Depressed 01/03/2008 DIONNA NEW ACCOUNTS REPRESENTATIVE, LAURIE 300 .00 An Anxiety Unspec 01/03/2008 DIONNA NEW ACCOUNTS REPRESENTATIVE, LAURIE 301 .83 PD BORDERLINE 01/03/2008 DIONNA NEW ACCOUNTS REPRESENTATIVE, LAURIE 309 .0 Ad Adj D/o W Depressed 01/03/2008 DIONNA NEW ACCOUNTS REPRESENTATIVE, LAURIE 300 .00 An Anxiety Unspec 01/03/2008 DIONNA NEW ACCOUNTS REPRESENTATIVE, LAURIE 301 .83 PD BORDERLINE 01/03/2008 DIONNA NEW ACCOUNTS REPRESENTATIVE, LAURIE 309 .0 Ad Adj D/o W Depressed 01/03/2008 DIONNA NEW ACCOUNTS REPRESENTATIVE, LAURIE 300 .00 An Anxiety Unspec 01/03/2008 DIONNA NEW ACCOUNTS REPRESENTATIVE, LAURIE 301 .83 PD BORDERLINE 01/03/2008 DIONNA NEW ACCOUNTS REPRESENTATIVE, LAURIE 309 .0 Ad Adj D/o W Depressed 01/03/2008 OMAR ADORNO APRN 300.00 An Anxiety Unspec 01/03/2008 OMAR ADORNO APRN 301.83 PD BORDERLINE 01/03/2008 OMAR ADORNO APRN 30 9.0 Ad Adj D/o W Depressed 01/03/2008 DIONNA NEW ACCOUNTS REPRESENTATIVE, LAURIE 300 .00 An Anxiety Unspec 01/03/2008 DIONNA NEW ACCOUNTS REPRESENTATIVE, LAURIE 301 .83 PD BORDERLINE 01/03/2008 DIONNA NEW ACCOUNTS REPRESENTATIVE, LAURIE 309 .0 Ad Adj D/o W Depressed 01/03/2008 WHITE DDS, KAITLIN J 300.00 An Anxiety Unspec 01/03/2008 WHITE DDS, KAITLIN J 301.83 PD BORDERLINE 01/03/2008 WHITE DDS, KAITLIN J 30 9.0 Ad Adj D/o W Depressed 01/03/2008 OLGA DDSJULI 300.00 An Anxiety Unspec 01/03/2008 OLGA DDS, JULI 301.83 PD BORDERLINE 01/03/2008 ESPINOZA DDS, JULI 30 9.0 Ad Adj D/o W Depressed 01/03/2008 OLGA GILLESPIESNAKULW 300.00 An Anxiety Unspec 01/03/2008 OLGA GILLESPIESJULI 301.83 PD BORDERLINE 01/03/2008 OLGA GILLESPIES, JULI 30 9.0 Ad Adj D/o W Depressed 01/03/2008 LAURIE VILLAREAL APRN 300 .00 An Anxiety Unspec 01/03/2008 LAURIE VILLAREAL APRN 301 .83 PD BORDERLINE 01/03/2008 RAMEZ VILLAREAL APRNETTE 309 .0 Ad Adj D/o W Depressed 01/03/2008 YOUNG DO BEAR K 300.00 An Anxiety Unspec 01/03/2008 YOUNG DO BEAR K 301.83 PD BORDERLINE 01/03/2008 HANNAH COFFMAN BEAR K 309.0 Ad Adj D/o W Depressed 01/03/2008 MARIAN FRAGOSO RPIETO R 300.00 An Anxiety Unspec 01/03/2008 MARIAN FRAGOSO PRIETO R 301.83 PD BORDERLINE 01/03/2008 MARIAN FRAGOSO PRIETO R 309.0 Ad Adj D/o W Depressed 01/03/2008 DIONNA FRAGOSO LAURIE 300 .00 An Anxiety Unspec 01/03/2008 DIONNA FRAGOSO LAURIE 301 .83 PD BORDERLINE 01/03/2008 DIONNA FRAGOSO LAURIE 309 .0 Ad Adj D/o W Depressed 01/03/2008 MARIAN FRAGOSO PRIETO R 300.00 An Anxiety Unspec 01/03/2008 MARIAN FRAGOSO PRIETO R 301.83 PD BORDERLINE 01/03/2008 MARIAN FRAGOSO PRIETO R 309.0 Ad Adj D/o W Depressed 01/03/2008 MARIAN FRAGOSO PRIETO R 300.00 An Anxiety Unspec 01/03/2008 MARIAN FRAGOSO, PRIETO R 301.83 PD BORDERLINE 01/03/2008 MARIAN FRAGOSO, PRIETO R 309.0 Ad Adj D/o W Depressed 01/03/2008 DOUGLAS LEAL MD 300.0 0 An Anxiety Unspec 01/03/2008 DOUGLAS LEAL MD 301.8 3 PD BORDERLINE 01/03/2008 DOUGLAS LEAL MD 309.0 Ad Adj D/o W Depressed 01/03/2008 HANNAH COFFMAN BEAR K 300.00 An Anxiety Unspec 01/03/2008 HANNAH COFFMAN, BEAR K 301.83 PD BORDERLINE 01/03/2008 HANNAH COFFMAN, BEAR K 309.0 Ad Adj D/o W Depressed 02/22/2008 HANNAH COFFMAN, BEAR K 620.0 Follicular Cyst Of Ovary 02/22/2008 620.0 Foll icular Cyst Of Ovary 02/22/2008 620.0 Foll icular Cyst Of Ovary 02/22/2008 HANNAH COFFMAN BEAR K 620.0 Follicular Cyst Of Ovary 02/22/2008 PAU GARCIA APRN R 620.0 Follicular Cyst Of Ovary 02/22/2008 620.0 [...] S 620.0 Follicular Cyst Of Ovary 02/22/2008 DOUGLAS LEAL MD 620.0 Follicular Cyst Of Ovary 02/22/2008 OMAR ADORNO APRN 62 0.0 Follicular Cyst Of Ovary 02/22/2008 NENO WOODRUFF APRN S 620.0 Follicular Cyst Of Ovary 02/22/2008 OMAR ADORNO APRN 62 0.0 Follicular Cyst Of Ovary 02/22/2008 DOUGLAS LEAL MD 620.0 Follicular Cyst Of Ovary 02/22/2008 BENI LYNCH, AREN [place] 62 0.0 Follicular Cyst Of Ovary 02/22/2008 RANJANELOISA MURILLON, NENO S 620.0 Follicular Cyst Of Ovary 02/22/2008 BRENDA PHD, KAREN Quinn 620.0 Follicular Cyst Of Ovary 02/22/2008 BRENDA PHD, KAREN Quinn 620.0 Follicular Cyst Of Ovary 02/22/2008 RANJAN NEW ACCOUNTS REPRESENTATIVE, NENO S 620.0 Follicular Cyst Of Ovary 02/22/2008 RANJANELOISA MURILLON, NENO S 620.0 Follicular Cyst Of Ovary 02/22/2008 MALIKA GUILLEN NEW ACCOUNTS REPRESENTATIVE, ROBERTO N 620.0 Follicular Cyst Of Ovary 02/22/2008 RANJAN MURILLON, NENO S 620.0 Follicular Cyst Of Ovary 02/22/2008 BRENDA PHD, KAREN Quinn 620.0 Follicular Cyst Of Ovary 02/22/2008 MARIAN MURILLON, PRIETO R 620.0 Follicular Cyst Of Ovary 02/22/2008 MEL JOYCE, DOUGLAS 620.0 Follicular Cyst Of Ovary 02/22/2008 BRENDA PHD, KAREN Quinn 620.0 Follicular Cyst Of Ovary 02/22/2008 DIONNA NEW ACCOUNTS REPRESENTATIVE, LAURIE 620 .0 Follicular Cyst Of Ovary 02/22/2008 RANJAN NEW ACCOUNTS REPRESENTATIVE, NENO S 620.0 Follicular Cyst Of Ovary 02/22/2008 DIONNA NEW ACCOUNTS REPRESENTATIVE, LAURIE 620 .0 Follicular Cyst Of Ovary 02/22/2008 DIONNA NEW ACCOUNTS REPRESENTATIVE, LAURIE 620 .0 Follicular Cyst Of Ovary 02/22/2008 DIONNA NEW ACCOUNTS REPRESENTATIVE, LAURIE 620 .0 Follicular Cyst Of Ovary 02/22/2008 OMAR ADORNO APRN 62 0.0 Follicular Cyst Of Ovary 02/22/2008 DIONNA NEW ACCOUNTS REPRESENTATIVE, LAURIE 620 .0 Follicular Cyst Of Ovary 02/22/2008 KAITLIN ISLAS DDS 62 0.0 Follicular Cyst Of Ovary 02/22/2008 JULI ESPINOZA DDS 62 0.0 Follicular Cyst Of Ovary 02/22/2008 JULI ESPINOZA DDS 62 0.0 Follicular Cyst Of Ovary 02/22/2008 DIONNA NEW ACCOUNTS REPRESENTATIVE, LAURIE 620 .0 Follicular Cyst Of Ovary 02/22/2008 BEAR YOUNG DO 620.0 Follicular Cyst Of Ovary 02/22/2008 MARIAN NEW ACCOUNTS REPRESENTATIVE, PRIETO R 620.0 Follicular Cyst Of Ovary 02/22/2008 LAURIE VILLAREAL APRN 620 .0 Follicular Cyst Of Ovary 02/22/2008 PRIETO FONSECA APRN 620.0 Follicular Cyst Of Ovary 02/22/2008 PRIETO FONSECA APRN R 620.0 Follicular Cyst Of Ovary 02/22/2008 DOUGLAS LEAL MD 620.0 Follicular Cyst Of Ovary 02/22/2008 HANNAH COFFMAN BEAR K 620.0 Follicular Cyst Of Ovary 07/05/2008 HANNAH COFFMAN BEAR K 462 Acute Pharyngitis 07/05/2008 HANNAH COFFMANBEAR K 466.0 Acute Bronchitis 07/05/2008 462 Acute Pharyngitis 07/05/2008 466.0 Acut e Bronchitis 07/05/2008 462 Acute Pharyngitis 07/05/2008 466.0 Acut e Bronchitis 07/05/2008 YOUNG BEAR COFFMAN K 462 Acute Pharyngitis 07/05/2008 HANNAH COFFMANBEAR K 466.0 Acute Bronchitis 07/05/2008 PAU GARCIA APRN 462 Acute Pharyngitis 07/05/2008 PAU GARCIA APRN [...] Pharyngitis 07/05/2008 466.0 Acut e Bronchitis 07/05/2008 RANJAN NEW ACCOUNTS REPRESENTATIVE, NENO S 462 Acute Pharyngitis 07/05/2008 RANJAN NEW ACCOUNTS REPRESENTATIVE, NENO S 466.0 Acute Bronchitis 07/05/2008 DOUGLAS LEAL MD 462 Acute Pharyngitis 07/05/2008 MEL JOYCE, DOUGLAS 466.0 Acute Bronchitis 07/05/2008 TILA NEW ACCOUNTS REPRESENTATIVE, OMAR T 46 2 Acute Pharyngitis 07/05/2008 TILA NEW ACCOUNTS REPRESENTATIVE, OMAR T 46 6.0 Acute Bronchitis 07/05/2008 RANJAN NEW ACCOUNTS REPRESENTATIVE, NENO S 462 Acute Pharyngitis 07/05/2008 RANJAN NEW ACCOUNTS REPRESENTATIVE, NENO S 466.0 Acute Bronchitis 07/05/2008 TILA FRAGOSO, OMAR T 46 2 Acute Pharyngitis 07/05/2008 OMAR ADORNO APRN T 46 6.0 Acute Bronchitis 07/05/2008 DOUGLAS LEAL MD 462 Acute Pharyngitis 07/05/2008 MEL JOYCE, DOUGLAS 466.0 Acute Bronchitis 07/05/2008 BENI STEEL ENGRAVER, AREN B 46 2 Acute Pharyngitis 07/05/2008 BENI STEEL ENGRAVER, AREN B 46 6.0 Acute Bronchitis 07/05/2008 RANJAN NEW ACCOUNTS REPRESENTATIVE, NENO S 462 Acute Pharyngitis 07/05/2008 RANJAN NEW ACCOUNTS REPRESENTATIVE, NENO S 466.0 Acute Bronchitis 07/05/2008 BRENDA PHD, KAREN Quinn 462 Acute Pharyngitis 07/05/2008 BRENDA PHD, KAREN Quinn 466.0 Acute Bronchitis 07/05/2008 BRENDA PHD, KAREN Quinn 462 Acute Pharyngitis 07/05/2008 BRENDA PHD, KAREN Quinn 466.0 Acute Bronchitis 07/05/2008 RANJAN NEW ACCOUNTS REPRESENTATIVE, NENO S 462 Acute Pharyngitis 07/05/2008 RNAJAN NEW ACCOUNTS REPRESENTATIVE, NENO S 466.0 Acute Bronchitis 07/05/2008 RANJAN NEW ACCOUNTS REPRESENTATIVE, NENO S 462 Acute Pharyngitis 07/05/2008 RANJAN NEW ACCOUNTS REPRESENTATIVE, NENO S 466.0 Acute Bronchitis 07/05/2008 DALY CASHERO NEW ACCOUNTS REPRESENTATIVE, ROBERTO N 462 Acute Pharyngitis 07/05/2008 DALY CASHERO NEW ACCOUNTS REPRESENTATIVE, ROBERTO N 466.0 Acute Bronchitis 07/05/2008 RANJAN NEW ACCOUNTS REPRESENTATIVE, ENNO S 462 Acute Pharyngitis 07/05/2008 RANJAN NEW ACCOUNTS REPRESENTATIVE, NENO S 466.0 Acute Bronchitis 07/05/2008 BRENDA PHD, KAREN Quinn 462 Acute Pharyngitis 07/05/2008 BRENDA PHD, KAREN Quinn 466.0 Acute Bronchitis 07/05/2008 MARIAN NEW ACCOUNTS REPRESENTATIVE, PRIETO R 4 62 Acute Pharyngitis 07/05/2008 MARIAN NEW ACCOUNTS REPRESENTATIVE, PRIETO R 466.0 Acute Bronchitis 07/05/2008 DOUGLAS LEAL MD 462 Acute Pharyngitis 07/05/2008 DOUGLAS LEAL MD 466.0 Acute Bronchitis 07/05/2008 BRENDA PHD, KAREN Quinn 462 Acute Pharyngitis 07/05/2008 BRENDA PHD, KAREN Quinn 466.0 Acute Bronchitis 07/05/2008 DIONNA NEW ACCOUNTS REPRESENTATIVE, LAURIE 462 Acute Pharyngitis 07/05/2008 DIONNA NEW ACCOUNTS REPRESENTATIVE, LAURIE 466 .0 Acute Bronchitis 07/05/2008 RANJAN NEW ACCOUNTS REPRESENTATIVE, NENO S 462 Acute Pharyngitis 07/05/2008 RANJAN NEW ACCOUNTS REPRESENTATIVE, NENO S 466.0 Acute Bronchitis 07/05/2008 DIONNA NEW ACCOUNTS REPRESENTATIVE, LAURIE 462 Acute Pharyngitis 07/05/2008 DIONNA NEW ACCOUNTS REPRESENTATIVE, LAURIE 466 .0 Acute Bronchitis 07/05/2008 DIONNA NEW ACCOUNTS REPRESENTATIVE, LAURIE 462 Acute Pharyngitis 07/05/2008 DIONNA NEW ACCOUNTS REPRESENTATIVE, LAURIE 466 .0 Acute Bronchitis 07/05/2008 DIONNA NEW ACCOUNTS REPRESENTATIVE, LAURIE 462 Acute Pharyngitis 07/05/2008 DIONNA NEW ACCOUNTS REPRESENTATIVE, LAURIE 466 .0 Acute Bronchitis 07/05/2008 OMAR ADORNO APRN 46 2 Acute Pharyngitis 07/05/2008 OMAR ADORNO APRN 46 6.0 Acute Bronchitis 07/05/2008 DIONNA NEW ACCOUNTS REPRESENTATIVE, LAURIE 462 Acute Pharyngitis 07/05/2008 DIONNA NEW ACCOUNTS REPRESENTATIVE, LAURIE 466 .0 Acute Bronchitis 07/05/2008 KAITLIN ISLAS DDS 46 2 Acute Pharyngitis 07/05/2008 KAITLIN ISLAS DDS 46 6.0 Acute Bronchitis 07/05/2008 ESPINOZAJULI CROSS DDS 46 2 Acute Pharyngitis 07/05/2008 JULI ESPINOZA DDS 46 6.0 Acute Bronchitis 07/05/2008 ESPINOZA DDS, JULI 46 2 Acute Pharyngitis 07/05/2008 ESPINOZA DDS, JULI 46 6.0 Acute Bronchitis 07/05/2008 DIONNA NEW ACCOUNTS REPRESENTATIVE, LAURIE 462 Acute Pharyngitis 07/05/2008 DIONNA NEW ACCOUNTS REPRESENTATIVE, LAURIE 466 .0 Acute Bronchitis 07/05/2008 BEAR YOUNG DO K 462 Acute Pharyngitis 07/05/2008 BEAR YOUNG DO K 466.0 Acute Bronchitis 07/05/2008 MARIAN NEW ACCOUNTS REPRESENTATIVE, PRIETO R 4 62 Acute Pharyngitis 07/05/2008 MARIAN NEW ACCOUNTS REPRESENTATIVE, PRIETO R 466.0 Acute Bronchitis 07/05/2008 DIONNA NEW ACCOUNTS REPRESENTATIVE, LAURIE 462 Acute Pharyngitis 07/05/2008 DIONNA NEW ACCOUNTS REPRESENTATIVE, LAURIE 466 .0 Acute Bronchitis 07/05/2008 MARIAN NEW ACCOUNTS REPRESENTATIVE, PRIETO R 4 62 Acute Pharyngitis 07/05/2008 MARIAN NEW ACCOUNTS REPRESENTATIVE, PRIETO R 466.0 Acute Bronchitis 07/05/2008 MARIAN NEW ACCOUNTS REPRESENTATIVE, PRIETO R 4 62 Acute Pharyngitis 07/05/2008 MARIAN NEW ACCOUNTS REPRESENTATIVE, PRIETO R 466.0 Acute Bronchitis 07/05/2008 DOUGLAS LEAL MD 462 Acute Pharyngitis 07/05/2008 DOUGLAS LEAL MD 466.0 Acute Bronchitis 07/05/2008 BEAR YOUNG DO K 462 Acute Pharyngitis 07/05/2008 BEAR YOUNG DO K 466.0 Acute Bronchitis 07/30/2008 BEAR YOUNG DO K 29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 07/30/2008 BEAR YOUNG DO K 511.0 Pleurisy 07/30/2008 BEAR YOUNG DO K 786.2 Cough 07/30/2008 292.9 Unsp ecified Drug- induced Mental Disorder 07/30/2008 511.0 Pleurisy 07/30/2008 786.2 Cough 07/30/2008 292.9 Unsp ecified Drug- induced Mental Disorder 07/30/2008 511.0 Pleurisy 07/30/2008 786.2 Cough 07/30/2008 BEAR YOUNG DO K 29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 07/30/2008 BEAR YOUNG DO K 511.0 Pleurisy 07/30/2008 BEAR YOUNG DO K 786.2 Cough 07/30/2008 JOSE MURILLON, PAU R 29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 07/30/2008 JOSE NEW ACCOUNTS REPRESENTATIVE, PAU R 511.0 Pleurisy 07/30/2008 JOSE MURILLON, PAU R 786.2 Cough 07/30/2008 292.9 Unsp ecified Drug- [...] 07/30/2008 511.0 Pleurisy 07/30/2008 786.2 cough 07/30/2008 NENO WOODRUFF APRN S 29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 07/30/2008 NENO WOODRUFF APRN S 511.0 Pleurisy 07/30/2008 NENO WOODRUFF APRN S 786.2 cough 07/30/2008 DOUGLAS LEAL MD 29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 07/30/2008 DOUGLAS LEAL MD 511.0 Pleurisy 07/30/2008 DOUGLAS LEAL MD 786.2 cough 07/30/2008 TILA FRAGOSO OMAR T 29 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 07/30/2008 TILA FRAGOSO OMAR T 51 1.0 Pleurisy 07/30/2008 TILA FRAGOSO OMAR T 78 6.2 cough 07/30/2008 RANJAN FRAGOSO NENO S 29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 07/30/2008 RANJAN FRAGOSO, NENO S 511.0 Pleurisy 07/30/2008 RANJAN FRAGOSO, NENO S 786.2 cough 07/30/2008 OMAR ADORNO APRN T 29 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 07/30/2008 OMAR ADORNO APRN T 51 1.0 Pleurisy 07/30/2008 TILA FRAGOSO OMAR T 78 6.2 COUGH 07/30/2008 DOUGLAS LEAL MD 29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 07/30/2008 DOUGLAS LEAL MD 511.0 Pleurisy 07/30/2008 DOUGLAS LEAL MD 786.2 COUGH 07/30/2008 BENI STEEL ENGRAVER, AREN B 29 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 07/30/2008 BENI STEEL ENGRAVER, AREN B 51 1.0 Pleurisy 07/30/2008 BENI STEEL ENGRAVER, AREN B 78 6.2 COUGH 07/30/2008 RANJAN FRAGOSO NENO S 29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 07/30/2008 RANJAN FRAGOSO, NENO S 511.0 Pleurisy 07/30/2008 RANJAN FRAGOSO, NENO S 786.2 COUGH 07/30/2008 BRENDA PHD, KAREN Quinn 29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 07/30/2008 BRENDA PHD, KAREN Quinn 511.0 Pleurisy 07/30/2008 BRENDA PHD, KAREN Quinn 786.2 COUGH 07/30/2008 BRENDA PHD, KAREN Quinn 29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 07/30/2008 BRENDA PHD, KAREN Quinn 511.0 Pleurisy 07/30/2008 BRENDA PABLO, KAREN Quinn 786.2 COUGH 07/30/2008 RANJAN NEW ACCOUNTS REPRESENTATIVE, NENO S 29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 07/30/2008 RANJAN NEW ACCOUNTS REPRESENTATIVE, NENO S 511.0 Pleurisy 07/30/2008 RANJAN NEW ACCOUNTS REPRESENTATIVE, NENO S 786.2 COUGH 07/30/2008 RANJAN NEW ACCOUNTS REPRESENTATIVE, NENO S 29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 07/30/2008 RANJAN NEW ACCOUNTS REPRESENTATIVE, NENO S 511.0 Pleurisy 07/30/2008 RANJAN NEW ACCOUNTS REPRESENTATIVE, NENO S 786.2 COUGH 07/30/2008 DALY CASHERO NEW ACCOUNTS REPRESENTATIVE, ROBERTO N 29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 07/30/2008 DALY CASHERO NEW ACCOUNTS REPRESENTATIVE, ROBERTO N 511.0 Pleurisy 07/30/2008 DALY CASHERO NEW ACCOUNTS REPRESENTATIVE, ROBERTO N 786.2 COUGH 07/30/2008 RANJAN NEW ACCOUNTS REPRESENTATIVE, NENO S 29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 07/30/2008 RANJAN NEW ACCOUNTS REPRESENTATIVE, NENO S 511.0 Pleurisy 07/30/2008 RANJAN NEW ACCOUNTS REPRESENTATIVE, NENO S 786.2 COUGH 07/30/2008 BRENDA PABLO, KAREN Quinn 29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 07/30/2008 BRENDA PABLO, KAREN Quinn 511.0 Pleurisy 07/30/2008 BRENDA PABLO, KAREN Quinn 786.2 COUGH 07/30/2008 MARIAN NEW ACCOUNTS REPRESENTATIVE, PRIETO R 29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 07/30/2008 MARIAN MURILLON, PRIETO R 511.0 Pleurisy 07/30/2008 MARIAN MURILLON, PRIETO R 786.2 COUGH 07/30/2008 DOUGLAS LEAL MD 29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 07/30/2008 DOUGLAS LEAL MD 511.0 Pleurisy 07/30/2008 DOUGLAS LEAL MD 786.2 COUGH 07/30/2008 BRENDA PABLO, KAREN Quinn 29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 07/30/2008 BRENDA PABLO, KAREN Quinn 511.0 Pleurisy 07/30/2008 BRENDA PABLO, KAREN Quinn 786.2 COUGH 07/30/2008 DIONNA NEW ACCOUNTS REPRESENTATIVE, LAURIE 292 .9 Unspecified Drug-induced Mental Disorder 07/30/2008 DIONNA NEW ACCOUNTS REPRESENTATIVE, LAURIE 511 .0 Pleurisy 07/30/2008 DIONNA NEW ACCOUNTS REPRESENTATIVE, LAURIE 786 .2 COUGH 07/30/2008 RANJAN NEW ACCOUNTS REPRESENTATIVE, NENO S 29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 07/30/2008 RANJAN NEW ACCOUNTS REPRESENTATIVE, NENO S 511.0 Pleurisy 07/30/2008 RANJAN NEW ACCOUNTS REPRESENTATIVE, NENO S 786.2 COUGH 07/30/2008 DIONNA NEW ACCOUNTS REPRESENTATIVE, LAURIE 292 .9 Unspecified Drug-induced Mental Disorder 07/30/2008 DIONNA NEW ACCOUNTS REPRESENTATIVE, LAURIE 511 .0 Pleurisy 07/30/2008 DIONNA NEW ACCOUNTS REPRESENTATIVE, LAURIE 786 .2 COUGH 07/30/2008 DIONNA NEW ACCOUNTS REPRESENTATIVE, LAURIE 292 .9 Unspecified Drug-induced Mental Disorder 07/30/2008 DIONNA NEW ACCOUNTS REPRESENTATIVE, LAURIE 511 .0 Pleurisy 07/30/2008 DIONNA NEW ACCOUNTS REPRESENTATIVE, LAURIE 786 .2 COUGH 07/30/2008 DIONNA NEW ACCOUNTS REPRESENTATIVE, LAURIE 292 .9 Unspecified Drug-induced Mental Disorder 07/30/2008 DIONNA NEW ACCOUNTS REPRESENTATIVE, LAURIE 511 .0 Pleurisy 07/30/2008 DIONNA NEW ACCOUNTS REPRESENTATIVE, LAURIE 786 .2 COUGH 07/30/2008 OMAR ADORNO APRN 29 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 07/30/2008 OMAR ADORNO APRN T 51 1.0 Pleurisy 07/30/2008 OMAR ADORNO APRN 78 6.2 COUGH 07/30/2008 DIONNA NEW ACCOUNTS REPRESENTATIVE, LAURIE 292 .9 Unspecified Drug-induced Mental Disorder 07/30/2008 DIONNA NEW ACCOUNTS REPRESENTATIVE, LAURIE 511 .0 Pleurisy 07/30/2008 DIONNA NEW ACCOUNTS REPRESENTATIVE, LAURIE 786 .2 COUGH 07/30/2008 WHITE DDS, KAITLIN J 29 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 07/30/2008 WHITE DDS, KAITLIN J 51 1.0 Pleurisy 07/30/2008 WHITE DDS, KAITLIN J 78 6.2 COUGH 07/30/2008 ESPINOZA DDS, JULI 29 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 07/30/2008 ESPINOZA DDS, JULI 51 1.0 Pleurisy 07/30/2008 ESPINOZA DDS, JULI 78 6.2 COUGH 07/30/2008 ESPINOZA DDS, JULI 29 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 07/30/2008 ESPINOZA DDS, JULI 51 1.0 Pleurisy 07/30/2008 ESPINOZA DDS, JULI 78 6.2 COUGH 07/30/2008 DIONNA NEW ACCOUNTS REPRESENTATIVE, LAURIE 292 .9 Unspecified Drug-induced Mental Disorder 07/30/2008 DIONNA NEW ACCOUNTS REPRESENTATIVE, LAURIE 511 .0 Pleurisy 07/30/2008 DIONNA NEW ACCOUNTS REPRESENTATIVE, LAURIE 786 .2 COUGH 07/30/2008 YOUNG DO, BEAR K 29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 07/30/2008 YOUNG DO, BEAR K 511.0 Pleurisy 07/30/2008 YOUNG DO, BEAR K 786.2 COUGH 07/30/2008 MARIAN NEW ACCOUNTS REPRESENTATIVE, PRIETO R 29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 07/30/2008 MARIAN NEW ACCOUNTS REPRESENTATIVE, PRIETO R 511.0 Pleurisy 07/30/2008 MARIAN NEW ACCOUNTS REPRESENTATIVE, PRIETO R 786.2 COUGH 07/30/2008 DIONNA NEW ACCOUNTS REPRESENTATIVE, LAURIE 292 .9 Unspecified Drug-induced Mental Disorder 07/30/2008 DIONNA NEW ACCOUNTS REPRESENTATIVE, LAURIE 511 .0 Pleurisy 07/30/2008 DIONNA NEW ACCOUNTS REPRESENTATIVE, LAUIRE 786 .2 COUGH 07/30/2008 MARIAN NEW ACCOUNTS REPRESENTATIVE, PRIETO R 29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 07/30/2008 MARIAN NEW ACCOUNTS REPRESENTATIVE, PRIETO R 511.0 Pleurisy 07/30/2008 MARIAN NEW ACCOUNTS REPRESENTATIVE, PRIETO R 786.2 COUGH 07/30/2008 MARIAN NEW ACCOUNTS REPRESENTATIVE, PRIETO R 29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 07/30/2008 MARIAN NEW ACCOUNTS REPRESENTATIVE, PRIETO R 511.0 Pleurisy 07/30/2008 MARIAN NEW ACCOUNTS REPRESENTATIVE, PRIETO R 786.2 COUGH 07/30/2008 DOUGLAS LEAL MD 29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 07/30/2008 DOUGLAS LEAL MD 511.0 Pleurisy 07/30/2008 DOUGLAS LEAL MD 786.2 COUGH 07/30/2008 YOUNG DO, BEAR K 29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 07/30/2008 YOUNG DO, BEAR K 511.0 Pleurisy 07/30/2008 OYUNG DO BEAR K 786.2 COUGH 12/12/2008 BEAR YOUNG DO K 682.4 Cellulitis And Abscess Of Hand Except Fingers And Thumb 12/12/2008 682.4 Cell ulitis And Abscess Of Hand Except Fingers And Thumb 12/12/2008 682.4 Cell ulitis And Abscess Of Hand Except Fingers And Thumb 12/12/2008 BEAR YOUNG DO K 682.4 Cellulitis And Abscess Of Hand [...] Fingers And Thumb 12/12/2008 NENO WOODRUFF APRN 682.4 Cellulitis And Abscess Of Hand Except Fingers And Thum b 12/12/2008 DOUGLAS LEAL MD 682.4 Cellulitis And Abscess Of Hand Except Fingers And Thumb 12/12/2008 OMAR ADORNO APRN 68 2.4 Cellulitis And Abscess Of Hand Except Fingers And Thumb 12/12/2008 NENO WOODRUFF APRN 682.4 Cellulitis And Abscess Of Hand Except Fingers And Thum b 12/12/2008 OMAR ADORNO APRN 68 2.4 Cellulitis And Abscess Of Hand Except Fingers And Thumb 12/12/2008 DOUGLAS LEAL MD 682.4 Cellulitis And Abscess Of Hand Except Fingers And Thumb 12/12/2008 AREN BAZAN LCPC B 68 2.4 Cellulitis And Abscess Of Hand Except Fingers And Thumb 12/12/2008 RANJAN NEW ACCOUNTS REPRESENTATIVE, NENO S 682.4 Cellulitis And Abscess Of Hand Except Fingers And Thum b 12/12/2008 BRENDA PHD, KAREN Quinn 682.4 Cellulitis And Abscess Of Hand Except Fingers And Thum b 12/12/2008 BRENDA PABLO, KAREN Quinn 682.4 Cellulitis And Abscess Of Hand Except Fingers And Thum b 12/12/2008 RANJAN NEW ACCOUNTS REPRESENTATIVE, NENO S 682.4 Cellulitis And Abscess Of Hand Except Fingers And Thum b 12/12/2008 RANJAN NEW ACCOUNTS REPRESENTATIVE, NENO S 682.4 Cellulitis And Abscess Of Hand Except Fingers And Thum b 12/12/2008 MALIKA GUILLEN NEW ACCOUNTS REPRESENTATIVE, ROBERTO N 682.4 Cellulitis And Abscess Of Hand Except Fingers And Thum b 12/12/2008 RANJAN MURILLON, NENO S 682.4 Cellulitis And Abscess Of Hand Except Fingers And Thum b 12/12/2008 BRENDA PABLO, KAREN Quinn 682.4 Cellulitis And Abscess Of Hand Except Fingers And Thum b 12/12/2008 MARIAN NEW ACCOUNTS REPRESENTATIVE, PRIETO Betancourt 682.4 Cellulitis And Abscess Of Hand Except Fingers And Thum b 12/12/2008 DOUGLAS LEAL MD 682.4 Cellulitis And Abscess Of Hand Except Fingers And Thumb 12/12/2008 BRENDA PABLO, KAREN Quinn 682.4 Cellulitis And Abscess Of Hand Except Fingers And Thum b 12/12/2008 DIONNA NEW ACCOUNTS REPRESENTATIVE, LAURIE 682 .4 Cellulitis And Abscess Of Hand Except Fingers And Thumb 12/12/2008 RANJAN NEW ACCOUNTS REPRESENTATIVE, NENO S 682.4 Cellulitis And Abscess Of Hand Except Fingers And Thum b 12/12/2008 DIONNA NEW ACCOUNTS REPRESENTATIVE, LAURIE 682 .4 Cellulitis And Abscess Of Hand Except Fingers And Thumb 12/12/2008 DIONNA NEW ACCOUNTS REPRESENTATIVE, LAURIE 682 .4 Cellulitis And Abscess Of Hand Except Fingers And Thumb 12/12/2008 DIONNA NEW ACCOUNTS REPRESENTATIVE, LAURIE 682 .4 Cellulitis And Abscess Of Hand Except Fingers And Thumb 12/12/2008 OMAR ADORNO APRN 68 2.4 Cellulitis And Abscess Of Hand Except Fingers And Thumb 12/12/2008 LAURIE VILLAREAL APRN 682 .4 Cellulitis And Abscess Of Hand Except Fingers And Thumb 12/12/2008 ROSHAN DDS, KAITLIN Cortez 68 2.4 Cellulitis And Abscess Of Hand Except Fingers And Thumb 12/12/2008 JULI ESPINOZA DDS 68 2.4 Cellulitis And Abscess Of Hand Except Fingers And Thumb 12/12/2008 OLGA GILLESPIESJULI 68 2.4 Cellulitis And Abscess Of Hand Except Fingers And Thumb 12/12/2008 LAURIE VILLAREAL APRN 682 .4 Cellulitis And Abscess Of Hand Except Fingers And Thumb 12/12/2008 BEAR YOUNG DO 682.4 Cellulitis And Abscess Of Hand Except Fingers And Thumb 12/12/2008 ENOCH FONSECA APRNINA R 682.4 Cellulitis And Abscess Of Hand Except Fingers And Thum b 12/12/2008 LAURIE VILLAREAL APRN 682 .4 Cellulitis And Abscess Of Hand Except Fingers And Thumb 12/12/2008 ENOCH FONSECA APRNINA R 682.4 Cellulitis And Abscess Of Hand Except Fingers And Thum b 12/12/2008 MARIAN FRAGOSO PRIETO R 682.4 Cellulitis And Abscess Of [...] Pain 01/17/[address] Pain 01/17/2009 RANJAN NEW ACCOUNTS REPRESENTATIVE, NENO S 786.50 Chest Pain 01/17/2009 DOUGLAS LEAL MD 786.5 0 Chest Pain 01/17/2009 TILA FRAGOSO, OMAR T 786.50 Chest Pain 01/17/2009 RANJAN NEW ACCOUNTS REPRESENTATIVE, NENO S 786.50 Chest Pain 01/17/2009 TILA FRAGOSO, OMAR T 786.50 Chest Pain 01/17/2009 DOUGLAS LEAL MD 786.5 0 Chest Pain 01/17/2009 BENI [facility], AREN B 786.50 Chest Pain 01/17/2009 RANJAN NEW ACCOUNTS REPRESENTATIVE, NENO S 786.50 Chest Pain 01/17/2009 BRENDA PHD, KAREN Quinn 786.50 Chest Pain 01/17/2009 BRENDA PHD, KAREN Quinn 786.50 Chest Pain 01/17/2009 RANJAN NEW ACCOUNTS REPRESENTATIVE, NENO S 786.50 Chest Pain 01/17/2009 RANJAN NEW ACCOUNTS REPRESENTATIVE, NENO S 786.50 Chest Pain 01/17/2009 MALIKA GUILLEN NEW ACCOUNTS REPRESENTATIVE, ROBERTO N 786.50 Chest Pain 01/17/2009 RANJAN NEW ACCOUNTS REPRESENTATIVE, NENO S 786.50 Chest Pain 01/17/2009 BRENDA PHD, KAREN Quinn 786.50 Chest Pain 01/17/2009 MARIAN FRAGOSO, PRIETO R 786.50 Chest Pain 01/17/2009 DOUGLAS LEAL MD 786.5 0 Chest Pain 01/17/2009 BRENDA PHD, KAREN Quinn 786.50 Chest Pain 01/17/2009 DIONNA NEW ACCOUNTS REPRESENTATIVE, LAURIE 786 .50 Chest Pain 01/17/2009 RANJAN NEW ACCOUNTS REPRESENTATIVE, NENO S 786.50 Chest Pain 01/17/2009 DIONNA NEW ACCOUNTS REPRESENTATIVE, LAURIE 786 .50 Chest Pain 01/17/2009 DIONNA NEW ACCOUNTS REPRESENTATIVE, LAURIE 786 .50 Chest Pain 01/17/2009 DIONNA NEW ACCOUNTS REPRESENTATIVE, LAURIE 786 .50 Chest Pain 01/17/2009 OMAR ADORNO APRN 786.50 Chest Pain 01/17/2009 DIONNA NEW ACCOUNTS REPRESENTATIVE, LAURIE 786 .50 Chest Pain 01/17/2009 ROSHAN DDS, KAITLIN Cortez 786.50 Chest Pain 01/17/2009 ESPINOZA DDS, JULI 786.50 Chest Pain 01/17/2009 ESPINOZA DDSJULI 786.50 Chest Pain 01/17/2009 DIONNA NEW ACCOUNTS REPRESENTATIVE, LAURIE 786 .50 Chest Pain 01/17/2009 YOUNG DO, BEAR K 786.50 Chest Pain 01/17/2009 MARIAN NEW ACCOUNTS REPRESENTATIVE, PRIETO R 786.50 Chest Pain 01/17/2009 DIONNA NEW ACCOUNTS REPRESENTATIVE, LAURIE 786 .50 Chest Pain 01/17/2009 MARIAN NEW ACCOUNTS REPRESENTATIVE, PRIETO R 786.50 Chest Pain 01/17/2009 MARIAN NEW ACCOUNTS REPRESENTATIVE, PRIETO R 786.50 Chest Pain 01/17/2009 DOUGLAS LEAL MD 786.5 0 Chest Pain 01/17/2009 YOUNG DO, BEAR K 786.50 Chest Pain 02/25/2009 YOUNG DO, BEAR K 724.5 Backache, Unspecified 02/25/2009 724.5 Back ache, Unspecified 02/25/2009 724.5 Back ache, Unspecified 02/25/2009 YOUNG DO, BEAR K 724.5 Backache, Unspecified 02/25/2009 PAU GARCIA APRN R 724.5 Backache, Unspecified 02/25/2009 724.5 Back ache, Unspecified 02/25/2009 724.5 Back ache, Unspecified 02/25/2009 724.5 Back ache, Unspecified 02/25/2009 724.5 Back ache, Unspecified 02/25/2009 724.5 Back ache, Unspecified 02/25/2009 724.5 Back ache, Unspecified 02/25/2009 724.5 Back ache, Unspecified 02/25/2009 724.5 Back ache, Unspecified 02/25/2009 724.5 Back ache, Unspecified 02/25/2009 724.5 Back ache, Unspecified 02/25/2009 NENO WOODRUFF APRN S 724.5 Backache, Unspecified 02/25/2009 DOUGLAS LEAL MD 724.5 Backache, Unspecified 02/25/2009 OMAR ADORNO APRN 72 4.5 Backache, Unspecified 02/25/2009 NENO WOODRUFF APRN S 724.5 Backache, Unspecified 02/25/2009 OMAR ADORNO APRN 72 4.5 Backache, Unspecified 02/25/2009 DOUGLAS LEAL MD 724.5 Backache, Unspecified 02/25/2009 BENI LYNCH, AREN B 72 4.5 Backache, Unspecified 02/25/2009 RANJAN NEW ACCOUNTS REPRESENTATIVE, NENO S 724.5 Backache, Unspecified 02/25/2009 BRENDA PHD, KAREN Quinn 724.5 Backache, Unspecified 02/25/2009 BRENDA PABLO, KAREN Quinn 724.5 Backache, Unspecified 02/25/2009 RANJAN NEW ACCOUNTS REPRESENTATIVE, NENO S 724.5 Backache, Unspecified 02/25/2009 RANJAN NEW ACCOUNTS REPRESENTATIVE, NENO S 724.5 Backache, Unspecified 02/25/2009 MALIKA GUILLEN NEW ACCOUNTS REPRESENTATIVE, ROBERTO N 724.5 Backache, Unspecified 02/25/2009 RANJAN NEW ACCOUNTS REPRESENTATIVE, NENO S 724.5 Backache, Unspecified 02/25/2009 BRENDA PHD, KAREN Quinn 724.5 Backache, Unspecified 02/25/2009 MARIAN NEW ACCOUNTS REPRESENTATIVE, PRIETO R 724.5 Backache, Unspecified 02/25/2009 MEL JOYCE, DOUGLAS 724.5 Backache, Unspecified 02/25/2009 BRENDA PABLO, KAREN Quinn 724.5 Backache, Unspecified 02/25/2009 DIONNA NEW ACCOUNTS REPRESENTATIVE, LAURIE 724 .5 Backache, Unspecified 02/25/2009 RANJAN NEW ACCOUNTS REPRESENTATIVE, NENO S 724.5 Backache, Unspecified 02/25/2009 DIONNA NEW ACCOUNTS REPRESENTATIVE, LAURIE 724 .5 Backache, Unspecified 02/25/2009 DIONNA NEW ACCOUNTS REPRESENTATIVE, LAURIE 724 .5 Backache, Unspecified 02/25/2009 DIONNA NEW ACCOUNTS REPRESENTATIVE, LAURIE 724 .5 Backache, Unspecified 02/25/2009 TILA NEW ACCOUNTS REPRESENTATIVE, OMAR Mcgowan 72 4.5 Backache, Unspecified 02/25/2009 DIONNA NEW ACCOUNTS REPRESENTATIVE, LAURIE 724 .5 Backache, Unspecified 02/25/2009 ROSHAN GILLESPIESKAITLIN 72 4.5 Backache, Unspecified 02/25/2009 ESPINOZA DDSJULI 72 4.5 Backache, Unspecified 02/25/2009 ESPINOZA DDSJULI 72 4.5 Backache, Unspecified 02/25/2009 DIONNA NEW ACCOUNTS REPRESENTATIVE, LAURIE 724 .5 Backache, Unspecified 02/25/2009 YOUNG DO, BEAR K 724.5 Backache, Unspecified 02/25/2009 MARIAN MURILLON, PRIETO R 724.5 Backache, Unspecified 02/25/2009 LAURIE VILLAREAL APRN 724 .5 Backache, Unspecified 02/25/2009 MARIAN NEW ACCOUNTS REPRESENTATIVE, PRIETO R 724.5 Backache, Unspecified 02/25/2009 MARIAN NEW ACCOUNTS REPRESENTATIVE, PRIETO R 724.5 Backache, Unspecified 02/25/2009 DOUGLAS LEAL MD 724.5 Backache, Unspecified 02/25/2009 YOUNG DO, BEAR K 724.5 Backache, Unspecified 02/27/2009 YOUNG DO, BEAR K 698.9 Unspecified Pruritic Disorder 02/27/2009 698.9 Unsp ecified Pruritic Disorder 02/27/2009 698.9 Unsp ecified Pruritic Disorder 02/27/2009 YOUNG DO BEAR K 698.9 Unspecified Pruritic Disorder 02/27/2009 [...] 02/27/2009 698.9 Unsp ecified Pruritic Disorder 02/27/2009 YUKI WOODRUFF APRNA S 698.9 Unspecified Pruritic Disorder 02/27/2009 DOUGLAS LEAL MD 698.9 Unspecified Pruritic Disorder 02/27/2009 OMAR ADORNO APRN 69 8.9 Unspecified Pruritic Disorder 02/27/2009 NENO WOODRUFF APRN S 698.9 Unspecified Pruritic Disorder 02/27/2009 OMAR ADORNO APRN 69 8.9 Unspecified Pruritic Disorder 02/27/2009 DOUGLAS LEAL MD 698.9 Unspecified Pruritic Disorder 02/27/2009 BENI LYNCH, AREN Merida 69 8.9 Unspecified Pruritic Disorder 02/27/2009 RANJAN MURILLON, NENO S 698.9 Unspecified Pruritic Disorder 02/27/2009 BRENDA PHD, KAREN Quinn 698.9 Unspecified Pruritic Disorder 02/27/2009 BRENDA PHD, KAREN Quinn 698.9 Unspecified Pruritic Disorder 02/27/2009 RANJAN NEW ACCOUNTS REPRESENTATIVE, NENO S 698.9 Unspecified Pruritic Disorder 02/27/2009 RANJAN NEW ACCOUNTS REPRESENTATIVE, NENO S 698.9 Unspecified Pruritic Disorder 02/27/2009 MALIKA GUILLEN NEW ACCOUNTS REPRESENTATIVE, ROBERTO Ybarra 698.9 Unspecified Pruritic Disorder 02/27/2009 RANJAN MURILLON, NENO S 698.9 Unspecified Pruritic Disorder 02/27/2009 BRENDA PHD, KAREN Quinn 698.9 Unspecified Pruritic Disorder 02/27/2009 MARIAN FRAGOSO, PRIETO R 698.9 Unspecified Pruritic Disorder 02/27/2009 DOUGLAS LEAL MD 698.9 Unspecified Pruritic Disorder 02/27/2009 BRENDA PHD, KAREN Quinn 698.9 Unspecified Pruritic Disorder 02/27/2009 DIONNA NEW ACCOUNTS REPRESENTATIVE, LAURIE 698 .9 Unspecified Pruritic Disorder 02/27/2009 RANJAN MURILLON, NENO S 698.9 Unspecified Pruritic Disorder 02/27/2009 DIONNA NEW ACCOUNTS REPRESENTATIVE, LAURIE 698 .9 Unspecified Pruritic Disorder 02/27/2009 DIONNA NEW ACCOUNTS REPRESENTATIVE, LAURIE 698 .9 Unspecified Pruritic Disorder 02/27/2009 DIONNA NEW ACCOUNTS REPRESENTATIVE, LAURIE 698 .9 Unspecified Pruritic Disorder 02/27/2009 OMAR ADORNO APRN 69 8.9 Unspecified Pruritic Disorder 02/27/2009 DIONNA NEW ACCOUNTS REPRESENTATIVE, LAURIE 698 .9 Unspecified Pruritic Disorder 02/27/2009 ROSHAN DDS, KAITLIN Cortez 69 8.9 Unspecified Pruritic Disorder 02/27/2009 OLGA GILLESPIESJULI 69 8.9 Unspecified Pruritic Disorder 02/27/2009 OLGA DDSJULI 69 8.9 Unspecified Pruritic Disorder 02/27/2009 DIONNA NEW ACCOUNTS REPRESENTATIVE, LAURIE 698 .9 Unspecified Pruritic Disorder 02/27/2009 YOUNG DO, BAER K 698.9 Unspecified Pruritic Disorder 02/27/2009 MARIAN NEW ACCOUNTS REPRESENTATIVE, PRIETO R 698.9 Unspecified Pruritic Disorder 02/27/2009 DIONNA NEW ACCOUNTS REPRESENTATIVE, LAURIE 698 .9 Unspecified Pruritic Disorder 02/27/2009 MARIAN NEW ACCOUNTS REPRESENTATIVE, PRIETO R 698.9 Unspecified Pruritic Disorder 02/27/2009 MARIAN NEW ACCOUNTS REPRESENTATIVE, PRIETO R 698.9 Unspecified Pruritic Disorder 02/27/2009 DOUGLAS LEAL MD 698.9 Unspecified Pruritic Disorder 02/27/2009 YOUNG DO, BERA K 698.9 Unspecified Pruritic Disorder 03/10/2009 YOUNG DO, BEAR K 785.6 Lymph Nodes Enlargement 03/10/2009 785.6 Lymp h Nodes Enlargement 03/10/2009 785.6 Lymp h Nodes Enlargement 03/10/2009 HANNAH COFFMAN BEAR K 785.6 Lymph Nodes Enlargement 03/10/2009 JOSE MURILLONKIRANIA R 785.6 Lymph Nodes Enlargement 03/10/2009 785.6 [...] 03/10/2009 785.6 Lymp h Nodes Enlargement 03/10/2009 RANJAN FRAGOSO, NENO S 785.6 Lymph Nodes Enlargement 03/10/2009 DOUGLAS LEAL MD 785.6 Lymph Nodes Enlargement 03/10/2009 OMAR ADORNO APRN 78 5.6 Lymph Nodes Enlargement 03/10/2009 NENO WOODRUFF APRN S 785.6 Lymph Nodes Enlargement 03/10/2009 OMAR ADORNO APRN 78 5.6 Lymph Nodes Enlargement 03/10/2009 DOUGLAS LEAL MD 785.6 Lymph Nodes Enlargement 03/10/2009 BENI STEEL ENGRAVER, AREN B 78 5.6 Lymph Nodes Enlargement 03/10/2009 RANJAN NEW ACCOUNTS REPRESENTATIVE, NENO S 785.6 Lymph Nodes Enlargement 03/10/2009 BRENDA PHD, KAREN Quinn 785.6 Lymph Nodes Enlargement 03/10/2009 BRENDA PHD, KAREN Quinn 785.6 Lymph Nodes Enlargement 03/10/2009 RANJAN NEW ACCOUNTS REPRESENTATIVE, NENO S 785.6 Lymph Nodes Enlargement 03/10/2009 RANJAN NEW ACCOUNTS REPRESENTATIVE, NENO S 785.6 Lymph Nodes Enlargement 03/10/2009 [facility] NEW ACCOUNTS REPRESENTATIVE, ROBERTO N 785.6 Lymph Nodes Enlargement 03/10/2009 RANJAN NEW ACCOUNTS REPRESENTATIVE, NENO S 785.6 Lymph Nodes Enlargement 03/10/2009 BRENDA PHD, KAREN Quinn 785.6 Lymph Nodes Enlargement 03/10/2009 MARIAN NEW ACCOUNTS REPRESENTATIVE, PRIETO R 785.6 Lymph Nodes Enlargement 03/10/2009 DOUGLAS LEAL MD 785.6 Lymph Nodes Enlargement 03/10/2009 BRENDA PABLO, KAREN Quinn 785.6 Lymph Nodes Enlargement 03/10/2009 DIONNA NEW ACCOUNTS REPRESENTATIVE, LAURIE 785 .6 Lymph Nodes Enlargement 03/10/2009 RANJAN NEW ACCOUNTS REPRESENTATIVE, NENO S 785.6 Lymph Nodes Enlargement 03/10/2009 DIONNA NEW ACCOUNTS REPRESENTATIVE, LAURIE 785 .6 Lymph Nodes Enlargement 03/10/2009 DIONNA NEW ACCOUNTS REPRESENTATIVE, LAURIE 785 .6 Lymph Nodes Enlargement 03/10/2009 DIONNA NEW ACCOUNTS REPRESENTATIVE, LAURIE 785 .6 Lymph Nodes Enlargement 03/10/2009 OMAR ADORNO APRN 78 5.6 Lymph Nodes Enlargement 03/10/2009 DIONNA NEW ACCOUNTS REPRESENTATIVE, LAURIE 785 .6 Lymph Nodes Enlargement 03/10/2009 KAITLIN ISLAS DDS 78 5.6 Lymph Nodes Enlargement 03/10/2009 ESPINOZAJULI PLUMMER DDS 78 5.6 Lymph Nodes Enlargement 03/10/2009 JULI ESPINOZA DDS 78 5.6 Lymph Nodes Enlargement 03/10/2009 DIONNA NEW ACCOUNTS REPRESENTATIVE, LAURIE 785 .6 Lymph Nodes Enlargement 03/10/2009 BEAR YOUNG DO 785.6 Lymph Nodes Enlargement 03/10/2009 MARIAN NEW ACCOUNTS REPRESENTATIVE, PRIETO R 785.6 Lymph Nodes Enlargement 03/10/2009 DIONNA NEW ACCOUNTS REPRESENTATIVE, LAURIE 785 .6 Lymph Nodes Enlargement 03/10/2009 MARIAN FRAGOSO, PRIETO R 785.6 Lymph Nodes Enlargement 03/10/2009 MARIAN FRAGOSO, PRIETO R 785.6 Lymph Nodes Enlargement 03/10/2009 DOUGLAS LEAL MD 785.6 Lymph Nodes Enlargement 03/10/2009 BEAR YOUNG DO K 785.6 Lymph Nodes Enlargement 05/27/2009 HANNAH COFFMAN BEAR K 724.2 lower back pain 05/27/2009 HANNAH COFFMAN BEAR K 724.3 Neuritis Sciatic 05/27/2009 HANNAH COFFMAN BEAR K 785.1 Palpitations 05/27/2009 724.2 lowe r back pain 05/27/2009 724.3 Neur itis Sciatic 05/27/2009 785.1 Palp itations 05/27/2009 724.2 lowe r back pain 05/27/2009 724.3 Neur itis Sciatic 05/27/2009 785.1 Palp itations 05/27/2009 KENDY YOUNG DOA K 724.2 lower back pain 05/27/2009 KENDY YOUNG DOA K 724.3 Neuritis Sciatic 05/27/2009 KENDY YOUNG DOA K 785.1 Palpitations 05/27/2009 JOSE FRAGOSO PAU R 724.2 lower back pain 05/27/2009 JOSE FRAGOSO PAU R 724.3 Neuritis Sciatic 05/27/2009 JOSE FRAGOSO PAU R 785.1 Palpitations 05/27/2009 724.2 lowe [...] WOODRUFF APRN S 724.3 Neuritis Sciatic 05/27/2009 YUKI WOODRUFF APRNA S 785.1 Palpitations 05/27/2009 DOUGLAS LEAL MD 724.2 lower back pain 05/27/2009 DOUGLAS LEAL MD 724.3 Neuritis Sciatic 05/27/2009 DOUGLAS LEAL MD 785.1 Palpitations 05/27/2009 OMAR ADORNO APRN T 72 4.2 lower back pain 05/27/2009 OMAR ADORNO APRN T 72 4.3 Neuritis Sciatic 05/27/2009 OMAR ADORNO APRN T 78 5.1 Palpitations 05/27/2009 YUKI WOODRUFF APRNA S 724.2 lower back pain 05/27/2009 YUKI WOODRUFF APRNA S 724.3 Neuritis Sciatic 05/27/2009 YUKI WOODRUFF APRNA S 785.1 Palpitations 05/27/2009 OMAR ADORNO APRN T 72 4.2 lower back pain 05/27/2009 OMAR ADORNO APRN T 72 4.3 Neuritis Sciatic 05/27/2009 OMAR ADORNO APRN T 78 5.1 Palpitations 05/27/2009 MEL JOYCE, DOUGLAS 724.2 lower back pain 05/27/2009 DOUGLAS LEAL MD 724.3 Neuritis Sciatic 05/27/2009 MEL JOYCE, DOUGLAS 785.1 Palpitations 05/27/2009 BENI STEEL ENGRAVER, AREN B 72 4.2 lower back pain 05/27/2009 BENI STEEL ENGRAVER, AREN B 72 4.3 Neuritis Sciatic 05/27/2009 BENI STEEL ENGRAVER, AREN B 78 5.1 Palpitations 05/27/2009 RANJAN NEW ACCOUNTS REPRESENTATIVE, NENO S 724.2 lower back pain 05/27/2009 RANJAN NEW ACCOUNTS REPRESENTATIVE, NENO S 724.3 Neuritis Sciatic 05/27/2009 RANJAN NEW ACCOUNTS REPRESENTATIVE, NENO S 785.1 Palpitations 05/27/2009 BRENDA PHD, KAREN Quinn 724.2 lower back pain 05/27/2009 BRENDA PHD, KAREN Quinn 724.3 Neuritis Sciatic 05/27/2009 BRENDA PHD, KAREN Quinn 785.1 Palpitations 05/27/2009 BRENDA PHD, KAREN D 724.2 lower back pain 05/27/2009 BRENDA PHD, KAREN Quinn 724.3 Neuritis Sciatic 05/27/2009 BRENDA PHD, KAREN D 785.1 Palpitations 05/27/2009 RANJAN NEW ACCOUNTS REPRESENTATIVE, NENO S 724.2 lower back pain 05/27/2009 RANJAN NEW ACCOUNTS REPRESENTATIVE, NENO S 724.3 Neuritis Sciatic 05/27/2009 RANJAN NEW ACCOUNTS REPRESENTATIVE, NENO S 785.1 Palpitations 05/27/2009 RANJAN NEW ACCOUNTS REPRESENTATIVE, NENO S 724.2 lower back pain 05/27/2009 RANJAN NEW ACCOUNTS REPRESENTATIVE, NENO S 724.3 Neuritis Sciatic 05/27/2009 RANJAN NEW ACCOUNTS REPRESENTATIVE, NENO S 785.1 Palpitations 05/27/2009 DALY CASHERO NEW ACCOUNTS REPRESENTATIVE, ROBERTO N 724.2 lower back pain 05/27/2009 DALY CASHERO NEW ACCOUNTS REPRESENTATIVE, ROBERTO N 724.3 Neuritis Sciatic 05/27/2009 DALY CASHERO NEW ACCOUNTS REPRESENTATIVE, ROBERTO N 785.1 Palpitations 05/27/2009 RANJAN NEW ACCOUNTS REPRESENTATIVE, NENO S 724.2 lower back pain 05/27/2009 RANJAN NEW ACCOUNTS REPRESENTATIVE, NENO S 724.3 Neuritis Sciatic 05/27/2009 RANJAN NEW ACCOUNTS REPRESENTATIVE, NENO S 785.1 Palpitations 05/27/2009 BRENDA PHD, KAREN Quinn 724.2 lower back pain 05/27/2009 BRENDA PHD, KAREN Quinn 724.3 Neuritis Sciatic 05/27/2009 BRENDA PHD, KAREN Quinn 785.1 Palpitations 05/27/2009 MARIAN NEW ACCOUNTS REPRESENTATIVE, PRIETO R 724.2 lower back pain 05/27/2009 MARIAN NEW ACCOUNTS REPRESENTATIVE, PRIETO R 724.3 Neuritis Sciatic 05/27/2009 MARIAN NEW ACCOUNTS REPRESENTATIVE, PRIETO R 785.1 Palpitations 05/27/2009 DOUGLAS LEAL MD 724.2 lower back pain 05/27/2009 MEL JOYCE, DOUGLAS 724.3 Neuritis Sciatic 05/27/2009 MEL JOYCE, DOUGLAS 785.1 Palpitations 05/27/2009 BRENDA PABLO, KAREN Quinn 724.2 lower back pain 05/27/2009 BRENDA PABLO, KAREN Quinn 724.3 Neuritis Sciatic 05/27/2009 BRENDA PHD, KAREN Quinn 785.1 Palpitations 05/27/2009 DIONNA NEW ACCOUNTS REPRESENTATIVE, LAURIE 724 .2 lower back pain 05/27/2009 DIONNA NEW ACCOUNTS REPRESENTATIVE, LAURIE 724 .3 Neuritis Sciatic 05/27/2009 DIONNA NEW ACCOUNTS REPRESENTATIVE, LAURIE 785 .1 Palpitations 05/27/2009 RANJAN NEW ACCOUNTS REPRESENTATIVE, NENO S 724.2 lower back pain 05/27/2009 RANJAN NEW ACCOUNTS REPRESENTATIVE, NENO S 724.3 Neuritis Sciatic 05/27/2009 RANJAN NEW ACCOUNTS REPRESENTATIVE, NENO S 785.1 Palpitations 05/27/2009 DIONNA NEW ACCOUNTS REPRESENTATIVE, LAURIE 724 .2 lower back pain 05/27/2009 DIONNA NEW ACCOUNTS REPRESENTATIVE, LAURIE 724 .3 Neuritis Sciatic 05/27/2009 DIONNA NEW ACCOUNTS REPRESENTATIVE, LAURIE 785 .1 Palpitations 05/27/2009 DIONNA NEW ACCOUNTS REPRESENTATIVE, LAURIE 724 .2 lower back pain 05/27/2009 DIONNA NEW ACCOUNTS REPRESENTATIVE, LAURIE 724 .3 Neuritis Sciatic 05/27/2009 DIONNA NEW ACCOUNTS REPRESENTATIVE, LAURIE 785 .1 Palpitations 05/27/2009 DIONNA NEW ACCOUNTS REPRESENTATIVE, LAURIE 724 .2 lower back pain 05/27/2009 DIONNA NEW ACCOUNTS REPRESENTATIVE, LAURIE 724 .3 Neuritis Sciatic 05/27/2009 DIONNA NEW ACCOUNTS REPRESENTATIVE, LAURIE 785 .1 Palpitations 05/27/2009 TILA MURILLON, OMAR T 72 4.2 lower back pain 05/27/2009 TILA NEW ACCOUNTS REPRESENTATIVE, OMAR T 72 4.3 Neuritis Sciatic 05/27/2009 TILA NEW ACCOUNTS REPRESENTATIVE, OMAR T 78 5.1 Palpitations 05/27/2009 DIONNA NEW ACCOUNTS REPRESENTATIVE, LAURIE 724 .2 lower back pain 05/27/2009 DIONNA NEW ACCOUNTS REPRESENTATIVE, LAURIE 724 .3 Neuritis Sciatic 05/27/2009 DIONNA NEW ACCOUNTS REPRESENTATIVE, LAURIE 785 .1 Palpitations 05/27/2009 WHITE DDS, [...] DDS, JULI 78 5.1 Palpitations 05/27/2009 DIONNA NEW ACCOUNTS REPRESENTATIVE, LAURIE 724 .2 lower back pain 05/27/2009 DIONNA NEW ACCOUNTS REPRESENTATIVE, LAURIE 724 .3 Neuritis Sciatic 05/27/2009 DIONNA NEW ACCOUNTS REPRESENTATIVE, LAURIE 785 .1 Palpitations 05/27/2009 YOUNG DO, BEAR K 724.2 lower back pain 05/27/2009 YOUNG DO BEAR K 724.3 Neuritis Sciatic 05/27/2009 YOUNG DO, BEAR K 785.1 Palpitations 05/27/2009 MARIAN NEW ACCOUNTS REPRESENTATIVE, PRIETO R 724.2 lower back pain 05/27/2009 MARIAN NEW ACCOUNTS REPRESENTATIVE, PRIETO R 724.3 Neuritis Sciatic 05/27/2009 MARIAN NEW ACCOUNTS REPRESENTATIVE, PRIETO R 785.1 Palpitations 05/27/2009 DIONNA NEW ACCOUNTS REPRESENTATIVE, LAURIE 724 .2 lower back pain 05/27/2009 DIONNA NEW ACCOUNTS REPRESENTATIVE, LAURIE 724 .3 Neuritis Sciatic 05/27/2009 DIONNA NEW ACCOUNTS REPRESENTATIVE, LAURIE 785 .1 Palpitations 05/27/2009 MARIAN NEW ACCOUNTS REPRESENTATIVE, PRIETO R 724.2 lower back pain 05/27/2009 MARIAN NEW ACCOUNTS REPRESENTATIVE, PRIETO R 724.3 Neuritis Sciatic 05/27/2009 MARIAN NEW ACCOUNTS REPRESENTATIVE, PRIETO R 785.1 Palpitations 05/27/2009 MARIAN NEW ACCOUNTS REPRESENTATIVE, PRIETO R 724.2 lower back pain 05/27/2009 MARIAN NEW ACCOUNTS REPRESENTATIVE, PRIETO R 724.3 Neuritis Sciatic 05/27/2009 MARIAN NEW ACCOUNTS REPRESENTATIVE, PRIETO R 785.1 Palpitations 05/27/2009 DOUGLAS LEAL [...] 46 0 Acute Nasopharyngitis [common Cold] 06/26/2009 RANJAN NEW ACCOUNTS REPRESENTATIVE, NENO S 278.01 MORBID OBESITY 06/26/2009 RANJAN FRAGOSO, NENO S 460 Acute Nasopharyngitis [common Cold] 06/26/2009 BRENDA PHD, KAREN Quinn 278.01 MORBID OBESITY 06/26/2009 BRENDA PABLO, KAREN Quinn 460 Acute Nasopharyngitis [common Cold] 06/26/2009 BRENDA PABLO, KAREN Quinn 278.01 MORBID OBESITY 06/26/2009 BRENDA PABLO, KAREN Quinn 460 Acute Nasopharyngitis [common Cold] 06/26/2009 KATIE WOODRUFF APRNNDA S 278.01 MORBID OBESITY 06/26/2009 YUKI WOODRUFF APRNA S 460 Acute Nasopharyngitis [common Cold] 06/26/2009 YUKI WOODRUFF APRNA S 278.01 MORBID OBESITY 06/26/2009 YUKI WOODRUFF APRNA S 460 Acute Nasopharyngitis [common Cold] 06/26/2009 ALONDRA YATES APRNCY N 278.01 MORBID OBESITY 06/26/2009 MALIKA GUILLEN APRN, ROBERTO N 460 Acute Nasopharyngitis [common Cold] 06/26/2009 YUKI WOODRUFF APRNA S 278.01 MORBID OBESITY 06/26/2009 YUKI WOODRUFF APRNA S 460 Acute Nasopharyngitis [common Cold] 06/26/2009 BRENDA PABLO, KAREN Quinn 278.01 MORBID OBESITY 06/26/2009 KAREN GUTIERREZ PHD 460 Acute Nasopharyngitis [common Cold] 06/26/2009 MARIAN FRAGOSO, PRIETO R 278.01 MORBID OBESITY 06/26/2009 MARIAN FRAGOSO, PRIETO R 4 60 Acute Nasopharyngitis [common Cold] 06/26/2009 DOUGLAS LEAL MD 278.0 1 MORBID OBESITY 06/26/2009 DOUGLAS LEAL MD 460 Acute Nasopharyngitis [common Cold] 06/26/2009 BRENDA PHD, KAREN Quinn 278.01 MORBID OBESITY 06/26/2009 KAREN GUTIERREZ PHD 460 Acute Nasopharyngitis [common Cold] 06/26/2009 LAURIE VILLAREAL APRN 278 .01 MORBID OBESITY 06/26/2009 LAURIE VILLAREAL APRN 460 Acute Nasopharyngitis [common Cold] 06/26/2009 YUKI WOODRUFF APRNA S 278.01 MORBID OBESITY 06/26/2009 NENO WOODRUFF APRN 460 Acute Nasopharyngitis [common Cold] 06/26/2009 LAURIE VILLAREAL APRN 278 .01 MORBID OBESITY 06/26/2009 LAURIE VILLAREAL APRN 460 Acute Nasopharyngitis [common Cold] 06/26/2009 RAMEZ VILLAREAL APRNETTE 278 .01 MORBID OBESITY 06/26/2009 LAURIE VILLAREAL [...] APRN 460 Acute Nasopharyngitis [common Cold] 06/26/2009 KAITLIN ISLAS DDS 278.01 MORBID OBESITY 06/26/2009 KAITLIN ISLAS DDS 46 0 Acute Nasopharyngitis [common Cold] 06/26/2009 JULI ESPINOZA DDS 278.01 MORBID OBESITY 06/26/2009 JULI ESPINOZA DDS 46 0 Acute Nasopharyngitis [common Cold] 06/26/2009 JULI ESPINOZA DDS 278.01 MORBID OBESITY 06/26/2009 JULI ESPINOZA DDS 46 0 Acute Nasopharyngitis [common Cold] 06/26/2009 LAURIE VILLAREAL APRN 278 .01 MORBID OBESITY 06/26/2009 LAURIE VILLAREAL APRN 460 Acute Nasopharyngitis [common Cold] 06/26/2009 BEAR YOUNG DO K 278.01 MORBID OBESITY 06/26/2009 BEAR YOUNG DO K 460 Acute Nasopharyngitis [common Cold] 06/26/2009 PRIETO FONSECA APRN R 278.01 MORBID OBESITY 06/26/2009 PRIETO FONSECA APRN R 4 60 Acute Nasopharyngitis [common Cold] 06/26/2009 RAMEZ VILLAREAL APRNETTE 278 .01 MORBID OBESITY 06/26/2009 LAURIE VILLAREAL APRN 460 Acute Nasopharyngitis [common Cold] 06/26/2009 MARIAN FRAGOSO, PRIETO R 278.01 MORBID OBESITY 06/26/2009 PRIETO FONSECA APRN R 4 60 Acute Nasopharyngitis [common Cold] 06/26/2009 PRIETO FONSECA APRN R 278.01 MORBID OBESITY 06/26/2009 PRIETO FONSECA APRN R 4 60 Acute Nasopharyngitis [common Cold] 06/26/2009 DOUGLAS LEAL MD 278.0 1 MORBID OBESITY 06/26/2009 DOUGLAS LEAL MD 460 Acute Nasopharyngitis [common Cold] 06/26/2009 BEAR YOUNG DO K 278.01 MORBID OBESITY 06/26/2009 BEAR YOUNG DO K 460 Acute Nasopharyngitis [common Cold] 07/04/2009 BEAR YOUNG DO K 682.6 Cellulitis Of The Left Thigh 07/04/2009 682.6 Cell ulitis Of The Left Thigh 07/04/2009 682.6 Cell ulitis Of The Left Thigh 07/04/2009 BEAR YOUNG DO K 682.6 Cellulitis Of The Left Thigh 07/04/2009 PAU GARCIA APRN R 682.6 Cellulitis Of The Left Thigh [...] Cellulitis Of The Left Thigh 07/04/2009 RANJAN NEW ACCOUNTS REPRESENTATIVE, NENO S 682.6 Cellulitis Of The Left Thigh 07/04/2009 OMAR ADORNO APRN 68 2.6 Cellulitis Of The Left Thigh 07/04/2009 DOUGLAS LEAL MD 682.6 Cellulitis Of The Left Thigh 07/04/2009 BENI LYNCH, AREN [place] 68 2.6 Cellulitis Of The Left Thigh 07/04/2009 RANJAN NEW ACCOUNTS REPRESENTATIVE, NENO S 682.6 Cellulitis Of The Left Thigh 07/04/2009 BRENDA PABLO, KAREN Quinn 682.6 Cellulitis Of The Left Thigh 07/04/2009 BRENDA PABLO, KAREN Quinn 682.6 Cellulitis Of The Left Thigh 07/04/2009 RANJAN NEW ACCOUNTS REPRESENTATIVE, NENO S 682.6 Cellulitis Of The Left Thigh 07/04/2009 RANJAN NEW ACCOUNTS REPRESENTATIVE, NENO S 682.6 Cellulitis Of The Left Thigh 07/04/2009 MALIKA GUILLEN NEW ACCOUNTS REPRESENTATIVE, ROBERTO N 682.6 Cellulitis Of The Left Thigh 07/04/2009 RANJAN NEW ACCOUNTS REPRESENTATIVE, NENO S 682.6 Cellulitis Of The Left Thigh 07/04/2009 BRENDA PABLO, KAREN Quinn 682.6 Cellulitis Of The Left Thigh 07/04/2009 MARIAN NEW ACCOUNTS REPRESENTATIVE, PRIETO R 682.6 Cellulitis Of The Left Thigh 07/04/2009 DOUGLAS LEAL MD 682.6 Cellulitis Of The Left Thigh 07/04/2009 BRENDA PABLO, KAREN Quinn 682.6 Cellulitis Of The Left Thigh 07/04/2009 DIONNA NEW ACCOUNTS REPRESENTATIVE, LAURIE 682 .6 Cellulitis Of The Left Thigh 07/04/2009 RANJAN NEW ACCOUNTS REPRESENTATIVE, NENO S 682.6 Cellulitis Of The Left Thigh 07/04/2009 DIONNA NEW ACCOUNTS REPRESENTATIVE, LAURIE 682 .6 Cellulitis Of The Left Thigh 07/04/2009 DIONNA NEW ACCOUNTS REPRESENTATIVE, LAURIE 682 .6 Cellulitis Of The Left Thigh 07/04/2009 DIONNA NEW ACCOUNTS REPRESENTATIVE, LAURIE 682 .6 Cellulitis Of The Left Thigh 07/04/2009 OMAR ADORNO APRN 68 2.6 Cellulitis Of The Left Thigh 07/04/2009 DIONNA NEW ACCOUNTS REPRESENTATIVE, LAURIE 682 .6 Cellulitis Of The Left Thigh 07/04/2009 ROSHAN LUCERO, KAITLIN Cortez 68 2.6 Cellulitis Of The Left Thigh 07/04/2009 OLGA DDS, JULI 68 2.6 Cellulitis Of The Left Thigh 07/04/2009 OLGA DDS, JULI 68 2.6 Cellulitis Of The Left Thigh [...] 787.91 Valentina rrhea 08/07/2009 BEAR YOUNG DO K 787.91 Diarrhea 08/07/2009 PAU GARCIA APRN 787.91 [...] 08/07/2009 OMAR ADORNO APRN 787.91 Diarrhea 08/07/2009 MEL JOYCE, DOUGLAS 787.9 1 Diarrhea 08/07/2009 BENI LYNCH, AREN B 787.91 Diarrhea 08/07/2009 RANJAN FRAGOSO, NENO S 787.91 Diarrhea 08/07/2009 BRENDA PHD, KAREN Quinn 787.91 Diarrhea 08/07/2009 BRENDA PHD, KAREN Quinn 787.91 Diarrhea 08/07/2009 RANJAN NEW ACCOUNTS REPRESENTATIVE, NENO S 787.91 Diarrhea 08/07/2009 RANJAN NEW ACCOUNTS REPRESENTATIVE, NENO S 787.91 Diarrhea 08/07/2009 MALIKA GUILLEN NEW ACCOUNTS REPRESENTATIVE, ROBERTO Ybarra 787.91 Diarrhea 08/07/2009 RANJAN MURILLON, NENO S 787.91 Diarrhea 08/07/2009 BRENDA PHD, KAREN Quinn 787.91 Diarrhea 08/07/2009 MARIAN NEW ACCOUNTS REPRESENTATIVE, PRIETO R 787.91 Diarrhea 08/07/2009 DOUGLAS LEAL MD 787.9 1 Diarrhea 08/07/2009 BRENDA PHD, KAREN Quinn 787.91 Diarrhea 08/07/2009 DIONNA NEW ACCOUNTS REPRESENTATIVE, LAURIE 787 .91 Diarrhea 08/07/2009 RANJAN NEW ACCOUNTS REPRESENTATIVE, NENO S 787.91 Diarrhea 08/07/2009 DIONNA NEW ACCOUNTS REPRESENTATIVE, LAURIE 787 .91 Diarrhea 08/07/2009 DIONNA NEW ACCOUNTS REPRESENTATIVE, LAURIE 787 .91 Diarrhea 08/07/2009 DIONNA NEW ACCOUNTS REPRESENTATIVE, LAURIE 787 .91 Diarrhea 08/07/2009 OMAR ADORNO APRN 787.91 Diarrhea 08/07/2009 DIONNA NEW ACCOUNTS REPRESENTATIVE, LAURIE 787 .91 Diarrhea 08/07/2009 ROSHAN DDS, KAITLIN Cortez 787.91 Diarrhea 08/07/2009 ESPINOZA DDS, JULI 787.91 Diarrhea 08/07/2009 ESPINOZA DDS, JULI 787.91 Diarrhea 08/07/2009 DIONNA NEW ACCOUNTS REPRESENTATIVE, LAURIE 787 .91 Diarrhea 08/07/2009 BEAR YOUNG DO 787.91 Diarrhea 08/07/2009 MARIAN NEW ACCOUNTS REPRESENTATIVE, PRIETO R 787.91 Diarrhea 08/07/2009 DIONNA NEW ACCOUNTS REPRESENTATIVE, LAURIE 787 .91 Diarrhea 08/07/2009 MARINA NEW ACCOUNTS REPRESENTATIVE, PRIETO R 787.91 Diarrhea 08/07/2009 MARIAN FRAGOSO PRIETO R 787.91 Diarrhea 08/07/2009 DOUGLAS LEAL MD 787.9 1 Diarrhea 08/07/2009 YOUNG BEAR COFFMAN K 787.91 Diarrhea 09/18/2009 YOUNG DO, BEAR [...] Plants [except Food] 09/18/2009 NENO WOODRUFF APRN 692.6 Contact Dermatitis And Other Eczema, Due To Plants [ex cept Food] 09/18/2009 DOUGLAS LEAL MD 692.6 Contact Dermatitis And Other Eczema, Due To Plants [except Food] 09/18/2009 OMAR ADORNO APRN 69 2.6 Contact Dermatitis And Other Eczema, Due To Plants [except Food] 09/18/2009 RANJAN MURILLON, NENO S 692.6 Contact Dermatitis And Other Eczema, Due To Plants [ex cept Food] 09/18/2009 OMAR ADORNO APRN 69 2.6 Contact Dermatitis And Other Eczema, Due To Plants [except Food] 09/18/2009 DOUGLAS LEAL MD 692.6 Contact Dermatitis And Other Eczema, Due To Plants [except Food] 09/18/2009 BENI LYNCH, AREN B 69 2.6 Contact Dermatitis And Other Eczema, Due To Plants [except Food] 09/18/2009 RANJAN MURILLON, NENO S 692.6 Contact Dermatitis And Other Eczema, Due To Plants [ex cept Food] 09/18/2009 KAREN GUTIERREZ PHD 692.6 Contact Dermatitis And Other Eczema, Due To Plants [ex cept Food] 09/18/2009 KAREN GUTIERREZ PHD 692.6 Contact Dermatitis And Other Eczema, Due To Plants [ex cept Food] 09/18/2009 RANJAN FRAGOSO, NENO S 692.6 Contact Dermatitis And Other Eczema, Due To Plants [ex cept Food] 09/18/2009 RANJAN MURILLON, NENO S 692.6 Contact Dermatitis And Other Eczema, Due To Plants [ex cept Food] 09/18/2009 MALIKA GUILLEN APRN, ROBERTO N 692.6 Contact Dermatitis And Other Eczema, Due To Plants [except Food] 09/18/2009 RANJAN FRAGOSO, NENO S 692.6 Contact Dermatitis And Other Eczema, Due To Plants [ex cept Food] 09/18/2009 KAREN GUTIERREZ PHD 692.6 Contact Dermatitis And Other Eczema, Due To Plants [ex cept Food] 09/18/2009 MARIAN FRAGOSO, PRIETO R 692.6 Contact Dermatitis And Other Eczema, Due To Plants [ex cept Food] 09/18/2009 DOUGLAS LEAL MD 692.6 Contact Dermatitis And Other Eczema, Due To Plants [except Food] 09/18/2009 KAREN GUTIERREZ PHD 692.6 Contact Dermatitis And Other Eczema, Due To Plants [ex cept Food] 09/18/2009 LAURIE VILLAREAL APRN 692 .6 Contact Dermatitis And Other Eczema, Due To Plants [except Food] 09/18/2009 RANJAN NEW ACCOUNTS REPRESENTATIVE, NENO S 692.6 Contact Dermatitis And Other Eczema, Due To Plants [ex cept Food] 09/18/2009 DIONNA NEW ACCOUNTS REPRESENTATIVE, LAURIE 692 .6 Contact Dermatitis And Other Eczema, Due To Plants [except Food] 09/18/2009 DIONNA NEW ACCOUNTS REPRESENTATIVE, LAURIE 692 .6 Contact Dermatitis And Other Eczema, Due To Plants [except Food] 09/18/2009 DIONNA NEW ACCOUNTS REPRESENTATIVE, LAURIE 692 .6 Contact Dermatitis And Other Eczema, Due To Plants [except Food] 09/18/2009 OMAR ADORNO APRN 69 2.6 Contact Dermatitis And Other Eczema, Due To Plants [except Food] 09/18/2009 DIONNA NEW ACCOUNTS REPRESENTATIVE, LAURIE 692 .6 Contact Dermatitis And Other Eczema, Due To Plants [except Food] 09/18/2009 ROSHAN DDS, KAITLIN J 69 2.6 Contact Dermatitis And Other Eczema, Due To Plants [except Food] 09/18/2009 OLGA DDS, JULI 69 2.6 Contact Dermatitis And Other Eczema, Due To Plants [except Food] 09/18/2009 ESPINOZA DDS, JULI 69 2.6 Contact Dermatitis And Other Eczema, Due To Plants [except Food] 09/18/2009 DIONNA NEW ACCOUNTS REPRESENTATIVE, LAURIE 692 .6 Contact Dermatitis And Other Eczema, Due To Plants [except Food] 09/18/2009 KENDY YOUNG DOA K 692.6 Contact Dermatitis And Other Eczema, Due To Plants [except Food] 09/18/2009 MARIAN MURILLON, PRIETO R 692.6 Contact Dermatitis And Other Eczema, Due To Plants [ex cept Food] 09/18/2009 DIONNA NEW ACCOUNTS REPRESENTATIVE, LAURIE 692 .6 Contact Dermatitis And Other Eczema, Due To Plants [except Food] 09/18/2009 MARIAN NEW ACCOUNTS REPRESENTATIVE, PRIETO R 692.6 Contact Dermatitis And Other Eczema, Due To Plants [ex cept Food] 09/18/2009 MARIAN NEW ACCOUNTS REPRESENTATIVE, PRIETO R 692.6 Contact Dermatitis And Other [...] 02/26/2010 Ot 724.3 02/26/2010 Ot V57.1 03/25/2010 YOUNG DO, BEAR K 354.0 Carpal Tunnel Syndrome 03/25/2010 YOUNG DO, BEAR K 727.41 Ganglion Of Joint 03/25/2010 YOUNG DO, BEAR K 782.62 Flushing 03/25/2010 354.0 Carp al Tunnel Syndrome 03/25/2010 727.41 Arthur glion Of Joint 03/25/2010 782.62 Flu shing 03/25/2010 354.0 Carp al Tunnel Syndrome 03/25/2010 727.41 Arthur glion Of Joint 03/25/2010 782.62 Flu shing 03/25/2010 YOUNG DO, BEAR K 354.0 Carpal Tunnel Syndrome 03/25/2010 YOUNG DO, BEAR K 727.41 Ganglion Of Joint 03/25/2010 YOUNG DO, BEAR K 782.62 Flushing 03/25/2010 GARCIA NEW ACCOUNTS REPRESENTATIVE, PAU R 354.0 Carpal Tunnel Syndrome 03/25/2010 GARCIA NEW ACCOUNTS REPRESENTATIVE, PAU R 727.41 Ganglion Of Joint 03/25/2010 GARCIA NEW ACCOUNTS REPRESENTATIVE, PAU R 782.62 Flushing 03/25/2010 354.0 Carp [...] Of Joint 03/25/2010 782.62 Flu shing 03/25/2010 YUKI WOODRUFF APRNA S 354.0 Carpal Tunnel Syndrome 03/25/2010 YUKI WOODRUFF APRNA S 727.41 Ganglion Of Joint 03/25/2010 YUKI WOODRUFF APRNA S 782.62 Flushing 03/25/2010 DOUGLAS LEAL MD 354.0 Carpal Tunnel Syndrome 03/25/2010 DOUGLAS LEAL MD 727.4 1 Ganglion Of Joint 03/25/2010 DOUGLAS LEAL MD 782.6 2 Flushing 03/25/2010 OMAR ADORNO APRN 35 4.0 Carpal Tunnel Syndrome 03/25/2010 OMAR ADORNO APRN 727.41 Ganglion Of Joint 03/25/2010 OMAR ADORNO APRN T 782.62 Flushing 03/25/2010 KATIE WOODRUFF APRNNDA S 354.0 Carpal Tunnel Syndrome 03/25/2010 KATIE WOODRUFF APRNNDA S 727.41 Ganglion Of Joint 03/25/2010 KATIE WOODRUFF APRNNDA S 782.62 Flushing 03/25/2010 OMAR ADORNO APRN 35 4.0 Carpal Tunnel Syndrome 03/25/2010 OMAR ADORNO APRN 727.41 Ganglion Of Joint 03/25/2010 OMAR ADORNO APRN T 782.62 Flushing 03/25/2010 DOUGLAS LEAL MD 354.0 Carpal Tunnel Syndrome 03/25/2010 DOUGLAS LEAL MD 727.4 1 Ganglion Of Joint 03/25/2010 DOUGLAS LEAL MD 782.6 2 Flushing 03/25/2010 BENI STEEL ENGRAVER, AREN B 35 4.0 Carpal Tunnel Syndrome 03/25/2010 BENI STEEL ENGRAVER, AREN B 727.41 Ganglion Of Joint 03/25/2010 BENI STEEL ENGRAVER, AREN B 782.62 Flushing 03/25/2010 RANJAN MURILLON, NENO S 354.0 Carpal Tunnel Syndrome 03/25/2010 RANJAN MURILLON, NENO S 727.41 Ganglion Of Joint 03/25/2010 RANJAN MURILLON, NENO S 782.62 Flushing 03/25/2010 BRENDA PABLO, KAREN Quinn 354.0 Carpal Tunnel Syndrome 03/25/2010 BRENDA PABLO, KAREN Quinn 727.41 Ganglion Of Joint 03/25/2010 BRENDA PABLO, KAREN Quinn 782.62 Flushing 03/25/2010 BRENDA PABLO, KAREN Quinn 354.0 Carpal Tunnel Syndrome 03/25/2010 BRENDA PABLO, KAREN Quinn 727.41 Ganglion Of Joint 03/25/2010 BRENDA PABLO, KAREN Quinn 782.62 Flushing 03/25/2010 RANJAN MURILLON, NENO S 354.0 Carpal Tunnel Syndrome 03/25/2010 RANJAN MURILLON, NENO S 727.41 Ganglion Of Joint 03/25/2010 RANJAN NEW ACCOUNTS REPRESENTATIVE, NENO S 782.62 Flushing 03/25/2010 RANJAN NEW ACCOUNTS REPRESENTATIVE, NENO S 354.0 Carpal Tunnel Syndrome 03/25/2010 RANJAN NEW ACCOUNTS REPRESENTATIVE, NENO S 727.41 Ganglion Of Joint 03/25/2010 RANJAN NEW ACCOUNTS REPRESENTATIVE, NENO S 782.62 Flushing 03/25/2010 ROBERTO YATES APRN N 354.0 Carpal Tunnel Syndrome 03/25/2010 ROBERTO YATES APRN N 727.41 Ganglion Of Joint 03/25/2010 MALIKA GUILLEN NEW ACCOUNTS REPRESENTATIVE, ROBERTO N 782.62 Flushing 03/25/2010 RANJAN NEW ACCOUNTS REPRESENTATIVE, NENO S 354.0 Carpal Tunnel Syndrome 03/25/2010 RANJAN NEW ACCOUNTS REPRESENTATIVE, NENO S 727.41 Ganglion Of Joint 03/25/2010 RANJAN NEW ACCOUNTS REPRESENTATIVE, NENO S 782.62 Flushing 03/25/2010 KAREN GUTIERREZ PHD 354.0 Carpal Tunnel Syndrome 03/25/2010 KAREN GUTIERREZ PHD 727.41 Ganglion Of Joint 03/25/2010 KAREN GUTIERREZ PHD 782.62 Flushing 03/25/2010 MARIAN NEW ACCOUNTS REPRESENTATIVE, PRIETO R 354.0 Carpal Tunnel Syndrome 03/25/2010 MARIAN NEW ACCOUNTS REPRESENTATIVE, PRIETO R 727.41 Ganglion Of Joint 03/25/2010 MARIAN NEW ACCOUNTS REPRESENTATIVE, PRIETO R 782.62 Flushing 03/25/2010 DOUGLAS LEAL MD 354.0 Carpal Tunnel Syndrome 03/25/2010 DOUGLAS LEAL MD 727.4 1 Ganglion Of Joint 03/25/2010 DOUGLAS LEAL MD 782.6 2 Flushing 03/25/2010 KAREN GUTIERREZ PHD 354.0 Carpal Tunnel Syndrome 03/25/2010 KAREN GUTIERREZ PHD 727.41 Ganglion Of Joint 03/25/2010 KAREN GUTIERREZ PHD 782.62 Flushing 03/25/2010 DIONNA NEW ACCOUNTS REPRESENTATIVE, LAURIE 354 .0 Carpal Tunnel Syndrome 03/25/2010 DIONNA NEW ACCOUNTS REPRESENTATIVE, LAURIE 727 .41 Ganglion Of Joint 03/25/2010 DIONNA NEW ACCOUNTS REPRESENTATIVE, LAURIE 782 .62 Flushing 03/25/2010 RANJAN NEW ACCOUNTS REPRESENTATIVE, NENO S 354.0 Carpal Tunnel Syndrome 03/25/2010 RANJAN NEW ACCOUNTS REPRESENTATIVE, NENO S 727.41 Ganglion Of Joint 03/25/2010 RANJAN NEW ACCOUNTS REPRESENTATIVE, NENO S 782.62 Flushing 03/25/2010 DIONNA NEW ACCOUNTS REPRESENTATIVE, LAURIE 354 .0 Carpal Tunnel Syndrome 03/25/2010 DIONNA NEW ACCOUNTS REPRESENTATIVE, LAURIE 727 .41 Ganglion Of Joint 03/25/2010 DIONNA NEW ACCOUNTS REPRESENTATIVE, LAURIE 782 .62 Flushing 03/25/2010 DIONNA NEW ACCOUNTS REPRESENTATIVE, LAURIE 354 .0 Carpal Tunnel Syndrome 03/25/2010 DIONNA NEW ACCOUNTS REPRESENTATIVE, LAURIE 727 .41 Ganglion Of Joint 03/25/2010 DIONNA NEW ACCOUNTS REPRESENTATIVE, LAURIE 782 .62 Flushing 03/25/2010 DIONNA NEW ACCOUNTS REPRESENTATIVE, LAURIE 354 .0 Carpal Tunnel Syndrome 03/25/2010 DIONNA NEW ACCOUNTS REPRESENTATIVE, LAURIE 727 .41 Ganglion Of Joint 03/25/2010 DIONNA NEW ACCOUNTS REPRESENTATIVE, LAURIE 782 .62 Flushing 03/25/2010 OMAR ADORNO APRN T 35 4.0 Carpal Tunnel Syndrome 03/25/2010 TILA NEW ACCOUNTS REPRESENTATIVE OMAR T 727.41 Ganglion Of Joint 03/25/2010 TILA NEW ACCOUNTS REPRESENTATIVE OMAR T 782.62 Flushing 03/25/2010 DIONNA NEW ACCOUNTS REPRESENTATIVE, LAURIE 354 .0 Carpal Tunnel Syndrome 03/25/2010 DIONNA NEW ACCOUNTS REPRESENTATIVE, LAURIE 727 .41 Ganglion Of Joint 03/25/2010 DIONNA NEW ACCOUNTS REPRESENTATIVE, LAURIE 782 .62 Flushing 03/25/2010 WHITE DDS, KAITLIN J 35 4.0 Carpal Tunnel Syndrome 03/25/2010 WHITE DDS, KAITLIN J 727.41 Ganglion Of Joint 03/25/2010 WHITE DDS, KAITLIN J 782.62 Flushing 03/25/2010 ESPINOZA DDS, JULI 35 4.0 Carpal Tunnel Syndrome 03/25/2010 ESPINOZA DDS, JULI 727.41 Ganglion Of Joint 03/25/2010 ESPINOZA DDS, JULI 782.62 Flushing 03/25/2010 ESPINOZA DDS, JULI 35 4.0 Carpal Tunnel Syndrome 03/25/2010 ESPINOZA DDS, JULI 727.41 Ganglion Of Joint 03/25/2010 ESPINOZA DDS, JULI 782.62 Flushing 03/25/2010 DIONNA NEW ACCOUNTS REPRESENTATIVE, LAURIE 354 .0 Carpal Tunnel Syndrome 03/25/2010 DIONNA NEW ACCOUNTS REPRESENTATIVE, LAURIE 727 .41 Ganglion Of Joint 03/25/2010 DIONNA NEW ACCOUNTS REPRESENTATIVE, LAURIE 782 .62 Flushing 03/25/2010 YOUNG DO, BEAR K 354.0 Carpal Tunnel Syndrome 03/25/2010 YOUNG DO, BEAR K 727.41 Ganglion Of Joint 03/25/2010 YOUNG DO, BEAR K 782.62 Flushing 03/25/2010 MARIAN NEW ACCOUNTS REPRESENTATIVE, PRIETO R 354.0 Carpal Tunnel Syndrome 03/25/2010 MARIAN NEW ACCOUNTS REPRESENTATIVE, PRIETO R 727.41 Ganglion Of Joint 03/25/2010 MARIAN NEW ACCOUNTS REPRESENTATIVE, PRIETO R 782.62 Flushing 03/25/2010 DIONNA NEW ACCOUNTS REPRESENTATIVE, LAURIE 354 .0 Carpal Tunnel Syndrome 03/25/2010 DIONNA NEW ACCOUNTS REPRESENTATIVE, LAURIE 727 .41 Ganglion Of Joint 03/25/2010 DIONNA NEW ACCOUNTS REPRESENTATIVE, LAURIE 782 .62 Flushing 03/25/2010 MARIAN NEW ACCOUNTS REPRESENTATIVE, PRIETO R 354.0 Carpal Tunnel Syndrome 03/25/2010 MARINA NEW ACCOUNTS REPRESENTATIVE, PRIETO R 727.41 Ganglion Of Joint 03/25/2010 MARIAN NEW ACCOUNTS REPRESENTATIVE, PRIETO R 782.62 Flushing 03/25/2010 MARIAN NEW ACCOUNTS REPRESENTATIVE, PRIETO R 354.0 Carpal Tunnel Syndrome 03/25/2010 MARIAN NEW ACCOUNTS REPRESENTATIVE, PRIETO R 727.41 Ganglion Of Joint 03/25/2010 MARIAN NEW ACCOUNTS REPRESENTATIVE, PRIETO R 782.62 Flushing 03/25/2010 DOUGLAS LEAL MD 354.0 Carpal Tunnel Syndrome 03/25/2010 DOUGLAS LEAL MD 727.4 1 Ganglion Of Joint 03/25/2010 DOUGLAS LEAL MD 782.6 2 Flushing 03/25/2010 EBAR YOUNG DO K 354.0 Carpal Tunnel Syndrome 03/25/2010 BEAR YOUNG DO K 727.41 Ganglion Of Joint 03/25/2010 BEAR YOUNG DO K 782.62 Flushing 03/30/2010 Ot 729.5 04/16/2010 BEAR YOUNG DO 305.1 Nondependent Tobacco Use Disorder 04/16/2010 BEAR YOUNG DO 465.9 Acute Upper Respiratory Infections Of Unspecified [...] Upper Respiratory Infections Of Unspecified Site 04/16/2010 JOSE FRAGOSO, PAU R 305.1 Nondependent Tobacco Use Disorder 04/16/2010 KIRAN GARCIA APRNIA R 465.9 Acute Upper Respiratory Infections Of [...] Respiratory Infections Of Unspecified Site 04/16/2010 RANJAN FRAGOSO, NENO S 305.1 Nondependent Tobacco Use Disorder 04/16/2010 RANJAN FRAGOSO, NENO S 465.9 Acute Upper Respiratory Infections Of Unspecified Site 04/16/2010 TILA FRAGOSO OMAR T 30 5.1 Nondependent Tobacco Use Disorder 04/16/2010 TILA FRAGOSO OMAR T 46 5.9 Acute Upper Respiratory Infections Of Unspecified Site 04/16/2010 DOUGLAS LEAL MD 305.1 Nondependent Tobacco Use Disorder 04/16/2010 DOUGLAS LEAL MD 465.9 Acute Upper Respiratory Infections Of Unspecified Site 04/16/2010 BENI STEEL ENGRAVER, AREN B 30 5.1 Nondependent Tobacco Use Disorder 04/16/2010 BENI STEEL ENGRAVER, AREN B 46 5.9 Acute Upper Respiratory [...] 305.1 Nondependent Tobacco Use Disorder 04/16/2010 RANJAN FRAGOSO, NENO S 465.9 Acute Upper Respiratory Infections Of Unspecified Site 04/16/2010 RANJAN FRAGOSO, NENO S 305.1 Nondependent Tobacco Use Disorder 04/16/2010 RANJAN FRAGOSO, NENO S 465.9 Acute Upper Respiratory Infections Of Unspecified Site 04/16/2010 DALY CASHERO NEW ACCOUNTS REPRESENTATIVE, ROBERTO N 305.1 Nondependent Tobacco Use Disorder 04/16/2010 DALY CASHERO NEW ACCOUNTS REPRESENTATIVE, ROBERTO N 465.9 Acute Upper Respiratory Infections Of Unspecified Site 04/16/2010 RANJAN FRAGOSO NENO S 305.1 Nondependent Tobacco Use Disorder 04/16/2010 RANJAN FRAGOSO, NENO S 465.9 Acute Upper Respiratory Infections Of Unspecified Site 04/16/2010 BRENDA PHD, KAREN Quinn 305.1 Nondependent Tobacco Use Disorder 04/16/2010 BRENDA PABLO, KAREN Quinn 465.9 Acute Upper Respiratory Infections Of Unspecified Site 04/16/2010 MARIAN NEW ACCOUNTS REPRESENTATIVE, PRIETO R 305.1 Nondependent Tobacco Use Disorder 04/16/2010 MARIAN NEW ACCOUNTS REPRESENTATIVE, PRIETO R 465.9 Acute Upper Respiratory Infections Of Unspecified Site 04/16/2010 DOUGLAS LEAL MD 305.1 Nondependent Tobacco Use Disorder 04/16/2010 DOUGLAS LEAL MD 465.9 Acute Upper Respiratory Infections Of Unspecified Site 04/16/2010 BRENDA PHD, KAREN Quinn 305.1 Nondependent Tobacco Use Disorder 04/16/2010 BRENDA PABLO, KAREN Quinn 465.9 Acute Upper Respiratory Infections Of Unspecified Site 04/16/2010 DIONNA NEW ACCOUNTS REPRESENTATIVE, LAURIE 305 .1 Nondependent Tobacco Use Disorder 04/16/2010 DIONNA FRAGOSO, LAURIE 465 .9 Acute Upper Respiratory Infections Of Unspecified Site 04/16/2010 RANJAN FRAGOSO, NENO S 305.1 Nondependent Tobacco Use Disorder 04/16/2010 RANJAN FRAGOSO, NENO S 465.9 Acute Upper Respiratory Infections Of Unspecified Site 04/16/2010 DIONNA NEW ACCOUNTS REPRESENTATIVE, LAURIE 305 .1 Nondependent Tobacco Use Disorder 04/16/2010 DIONNA NEW ACCOUNTS REPRESENTATIVE, LAURIE 465 .9 Acute Upper Respiratory Infections Of Unspecified Site 04/16/2010 DIONNA NEW ACCOUNTS REPRESENTATIVE, LAURIE 305 .1 Nondependent Tobacco Use Disorder 04/16/2010 DIONNA NEW ACCOUNTS REPRESENTATIVE, LAURIE 465 .9 Acute Upper Respiratory Infections Of Unspecified Site 04/16/2010 DIONNA NEW ACCOUNTS REPRESENTATIVE, LAURIE 305 .1 Nondependent Tobacco Use Disorder 04/16/2010 DIONNA NEW ACCOUNTS REPRESENTATIVE, LAURIE 465 .9 Acute Upper Respiratory Infections Of Unspecified Site 04/16/2010 OMAR ADORNO APRN T 30 5.1 Nondependent Tobacco Use Disorder 04/16/2010 OMAR ADORNO APRN 46 5.9 Acute Upper Respiratory Infections Of Unspecified Site 04/16/2010 DIONNA NEW ACCOUNTS REPRESENTATIVE, LAURIE 305 .1 Nondependent Tobacco Use Disorder 04/16/2010 DIONNA NEW ACCOUNTS REPRESENTATIVE, LAURIE 465 .9 Acute Upper Respiratory Infections Of Unspecified Site 04/16/2010 WHITE DDS, KAITLIN J 30 5.1 Nondependent Tobacco Use Disorder [...] Upper Respiratory Infections Of Unspecified Site 04/16/2010 YOUNG DO BEAR K 305.1 Nondependent Tobacco Use Disorder 04/16/2010 KENDY YOUNG DOA K 465.9 Acute Upper Respiratory Infections Of Unspecified Site 04/16/2010 MARIAN FRAGOSO, PRIETO R 305.1 Nondependent Tobacco Use Disorder [...] Upper Respiratory Infections Of Unspecified Site 04/16/2010 YOUNG DO BEAR K 305.1 Nondependent Tobacco Use Disorder 04/16/2010 KENDY YOUNG DOA K 465.9 Acute Upper Respiratory Infections Of [...] Ankle And Foot 06/18/2010 OMAR ADORNO APRN T 95 9.7 Other And Unspecified Injury To Knee Leg Ankle And Foot 06/18/2010 RANJAN NEW ACCOUNTS REPRESENTATIVE, NENO S 959.7 Other And Unspecified Injury To Knee Leg Ankle And Kika t 06/18/2010 TILA NEW ACCOUNTS REPRESENTATIVE, OMAR T 95 9.7 Other And Unspecified [...] Leg Ankle And Kika t 06/18/2010 RANJAN NEW ACCOUNTS REPRESENTATIVE, NENO S 959.7 Other And Unspecified Injury To Knee Leg Ankle And Kika t 06/18/2010 RANJAN MURILLON, NENO S 959.7 Other And Unspecified Injury To Knee Leg Ankle And Kika t 06/18/2010 MALIKA GUILLEN NEW ACCOUNTS REPRESENTATIVE, ROBERTO N 959.7 Other And Unspecified Injury To Knee Leg Ankle And Kika t 06/18/2010 RANJAN MURILLON, NENO S 959.7 Other And Unspecified Injury To Knee Leg Ankle And Kika t 06/18/2010 BRENDA PABLO, KAREN Quinn 959.7 Other And Unspecified Injury To Knee Leg Ankle And Kika t 06/18/2010 MARIAN NEW ACCOUNTS REPRESENTATIVE, PRIETO R 959.7 Other And Unspecified Injury To Knee Leg Ankle And Kika t 06/18/2010 DOUGLAS LEAL MD 959.7 Other And Unspecified Injury To Knee Leg Ankle And Foot 06/18/2010 BRENDA PABLO, KAREN Quinn 959.7 Other And Unspecified Injury To Knee Leg Ankle And Kika t 06/18/2010 DIONNA NEW ACCOUNTS REPRESENTATIVE, LAURIE 959 .7 Other And Unspecified Injury To Knee Leg Ankle And Foot 06/18/2010 RANJAN MURILLON, NENO S 959.7 Other And Unspecified Injury To Knee Leg Ankle And Kika t 06/18/2010 DIONNA NEW ACCOUNTS REPRESENTATIVE, LAURIE 959 .7 Other And Unspecified Injury To Knee Leg Ankle And Foot 06/18/2010 DIONNA NEW ACCOUNTS REPRESENTATIVE, LAURIE 959 .7 Other And Unspecified Injury To Knee Leg Ankle And Foot 06/18/2010 DIONNA NEW ACCOUNTS REPRESENTATIVE, LAURIE 959 .7 Other And Unspecified Injury To Knee Leg Ankle And Foot 06/18/2010 TILA NEW ACCOUNTS REPRESENTATIVEOMAR T 95 9.7 Other And Unspecified Injury To Knee Leg Ankle And Foot 06/18/2010 DIONNA NEW ACCOUNTS REPRESENTATIVE, LAURIE 959 .7 Other And Unspecified Injury To Knee Leg Ankle And Foot 06/18/2010 ROSHAN DDS, KAITLIN Cortez 95 9.7 Other And Unspecified Injury To Knee Leg Ankle And Foot 06/18/2010 ESPINOZA DDS, JULI 95 9.7 Other And Unspecified Injury To Knee Leg Ankle And Foot 06/18/2010 ESPINOZA DDS, JULI 95 9.7 Other And Unspecified Injury To Knee Leg Ankle And Foot 06/18/2010 DIONNA NEW ACCOUNTS REPRESENTATIVE, LAURIE 959 .7 Other And Unspecified Injury To Knee Leg Ankle And Foot 06/18/2010 BEAR YOUNG DO 959.7 Other And Unspecified Injury To Knee Leg Ankle And Foot 06/18/2010 MARIAN NEW ACCOUNTS REPRESENTATIVE, PRIETO R 959.7 Other And Unspecified Injury To Knee Leg Ankle And Kika t 06/18/2010 DIONNA NEW ACCOUNTS REPRESENTATIVE, LAURIE 959 .7 Other And Unspecified Injury To Knee Leg Ankle And Foot 06/18/2010 MARIAN NEW ACCOUNTS REPRESENTATIVE, PRIETO R 959.7 Other And Unspecified Injury To Knee Leg Ankle And Kika t 06/18/2010 MARIAN NEW ACCOUNTS REPRESENTATIVE, PRIETO R 959.7 Other And Unspecified Injury To Knee Leg Ankle And Kika t 06/18/2010 MEL JOYCE, DOUGLAS 959.7 Other And Unspecified Injury To Knee Leg Ankle And Foot 06/18/2010 BEAR YOUNG DO 959.7 Other And Unspecified Injury To Knee Leg Ankle And Foot 08/11/2010 BEAR YOUNG DO 300.4 DYSTHYMIC DISORDER 08/11/2010 BEAR YOUNG DO 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 08/11/2010 KENDY YOUNG DOA K 401.9 UNSPECIFIED ESSENTIAL HYPERTENSION 08/11/2010 HANNAH KENDY COFFMANA K 788.1 Dysuria 08/11/2010 HANNAH BEAR COFFMAN K V17.49 FAM HX ASCVD (DISEASE) 08/11/2010 HANNAH COFFMANKENDYA K V18.0 FAM HX DIABETES MELLITUS 08/11/2010 [...] BEAR COFFMAN K 300.4 DYSTHYMIC DISORDER 08/11/2010 HANNAH BEAR COFFMAN K 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 08/11/2010 YOUNG BEAR COFFMAN K 401.9 UNSPECIFIED ESSENTIAL HYPERTENSION 08/11/2010 HANNAH BEAR COFFMAN K 788.1 Dysuria 08/11/2010 HANNAH BEAR COFFMAN K V17.49 FAM HX ASCVD (DISEASE) 08/11/2010 YOUNG BEAR COFFMAN K V18.0 FAM HX DIABETES MELLITUS 08/11/2010 KIRAN GARCIA APRNIA R 300.4 DYSTHYMIC DISORDER 08/11/2010 KIRAN GARCIA APRNIA R 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 08/11/2010 KIRAN GARCIA APRNIA R 401.9 UNSPECIFIED ESSENTIAL HYPERTENSION 08/11/2010 KIRAN GARCIA APRNIA R 788.1 Dysuria 08/11/2010 KIRAN GARCIA APRNIA [...] 08/11/2010 V18.0 FAM HX DIABETES MELLITUS 08/11/2010 NENO WOODRUFF APRN S 300.4 DYSTHYMIC DISORDER 08/11/2010 NENO WOODRUFF APRN S 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 08/11/2010 KATIE WOODRUFF APRNNDA S 401.9 Unspecified Essential Hypertension 08/11/2010 KATIE WOODRUFF APRNNDA S 788.1 Dysuria 08/11/2010 NENO WOODRUFF APRN [...] Disorder Of Initiating Or Maintaining Sleep 08/11/2010 NENO WOODRUFF APRN S 401.9 Unspecified Essential Hypertension 08/11/2010 KATIE WOODRUFF APRNNDA S 788.1 Dysuria 08/11/2010 NENO WOODRUFF APRN S V17.49 FAM HX ASCVD (DISEASE) 08/11/2010 NENO WOODRUFF APRN S V18.0 FAM HX DIABETES MELLITUS 08/11/2010 [...] MD V18.0 FAM HX DIABETES MELLITUS 08/11/2010 BENI LYNCH AREN B 30 0.4 DYSTHYMIC DISORDER 08/11/2010 BENI LYNCH AREN B 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 08/11/2010 BENI STEEL ENGRAVER AREN B 40 1.9 Unspecified Essential Hypertension 08/11/2010 BENI STEEL ENGRAVER, AREN B 78 8.1 Dysuria 08/11/2010 BENI LYNCH AREN B V17.49 FAM HX ASCVD (DISEASE) 08/11/2010 BENI LYNCH AREN B V1 8.0 FAM HX DIABETES MELLITUS 08/11/2010 RANJAN FRAGOSO NENO S 300.4 DYSTHYMIC DISORDER 08/11/2010 KATIE WOODRUFF APRNNDA S 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1 Dysuria 08/11/2010 KATIE WOODRUFF APRNNDA S V17.49 FAM HX ASCVD (DISEASE) 08/11/2010 YUKI WOODRUFF APRNA S V18.0 FAM HX DIABETES MELLITUS 08/11/2010 YUKI WOODRUFF APRNA S 300.4 DYSTHYMIC DISORDER 08/11/2010 RANJAN FRAGOSO NENO S 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 08/11/2010 KATIE WOODRUFF APRNNDA S 401.9 Unspecified Essential Hypertension 08/11/2010 KATIE WOODRUFF APRNNDA S 788.1 Dysuria 08/11/2010 KATIE WOODRUFF APRNNDA S V17.49 FAM HX ASCVD (DISEASE) 08/11/2010 KATIE WOODRUFF APRNNDA S V18.0 FAM HX DIABETES MELLITUS 08/11/2010 ALONDRA YATES APRNCY N 300.4 DYSTHYMIC DISORDER 08/11/2010 DALY CASHERO FOUZIA ROBERTO N 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 08/11/2010 DALY CASHERO ALONDRA FRAGOSOCY N 401.9 Unspecified Essential Hypertension 08/11/2010 DALY CASHERO ALONDRA FRAGOSOCY N 788.1 Dysuria 08/11/2010 DALY CASHERO ALONDRA FRAGOSOCY N V17.49 FAM HX ASCVD (DISEASE) 08/11/2010 DALY CASHERO FOUZIA ROBERTO N V18.0 FAM HX DIABETES MELLITUS 08/11/2010 KATIE WOODRUFF APRNNDA S 300.4 DYSTHYMIC DISORDER 08/11/2010 RANJAN FRAGOSO NENO S 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 08/11/2010 KATIE WOODRUFF APRNNDA S 401.9 Unspecified Essential Hypertension 08/11/2010 RANJAN NEW ACCOUNTS REPRESENTATIVE, NENO S 788.1 Dysuria 08/11/2010 KATIE WOODRUFF [...] PHD V18.0 FAM HX DIABETES MELLITUS 08/11/2010 DIONNA NEW ACCOUNTS REPRESENTATIVE, LAURIE 300 .4 DYSTHYMIC DISORDER 08/11/2010 DIONNA NEW ACCOUNTS REPRESENTATIVE, LAURIE 307 .42 Persistent Disorder Of Initiating Or Maintaining Sleep 08/11/2010 DIONNA NEW ACCOUNTS REPRESENTATIVE, LAURIE 401 .9 Unspecified Essential Hypertension 08/11/2010 DIONNA NEW ACCOUNTS REPRESENTATIVE, LAURIE 788 .1 Dysuria 08/11/2010 DIONNA NEW ACCOUNTS REPRESENTATIVE, LAURIE V17 .49 FAM HX ASCVD (DISEASE) 08/11/2010 DIONNA NEW ACCOUNTS REPRESENTATIVE, LAURIE V18 .0 FAM HX DIABETES MELLITUS 08/11/2010 RANJAN FRAGOSO NENO S 300.4 DYSTHYMIC DISORDER 08/11/2010 RANJAN NEW ACCOUNTS REPRESENTATIVE, NENO S 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 08/11/2010 RANJAN FRAGOSO, NENO S 401.9 Unspecified Essential Hypertension 08/11/2010 RANJAN FRAGOSO, NENO S 788.1 Dysuria 08/11/2010 RANJAN NEW ACCOUNTS REPRESENTATIVE, NENO S V17.49 FAM HX ASCVD (DISEASE) 08/11/2010 RANJAN NEW ACCOUNTS REPRESENTATIVE, NENO S V18.0 FAM HX DIABETES MELLITUS 08/11/2010 DIONNA NEW ACCOUNTS REPRESENTATIVE, LAURIE 300 .4 DYSTHYMIC DISORDER 08/11/2010 DIONNA NEW ACCOUNTS REPRESENTATIVE, LAURIE 307 .42 Persistent Disorder Of Initiating Or Maintaining Sleep 08/11/2010 DIONNA NEW ACCOUNTS REPRESENTATIVE, LAURIE 401 .9 Unspecified Essential Hypertension 08/11/2010 DIONNA NEW ACCOUNTS REPRESENTATIVE, LAURIE 788 .1 Dysuria 08/11/2010 DIONNA NEW ACCOUNTS REPRESENTATIVE, LAURIE V17 .49 FAM HX ASCVD (DISEASE) 08/11/2010 DIONNA NEW ACCOUNTS REPRESENTATIVE, LAURIE V18 .0 FAM HX DIABETES MELLITUS 08/11/2010 DIONNA NEW ACCOUNTS REPRESENTATIVE, LAURIE 300 .4 DYSTHYMIC DISORDER 08/11/2010 DIONNA NEW ACCOUNTS REPRESENTATIVE, LAURIE 307 .42 Persistent Disorder Of Initiating Or Maintaining Sleep 08/11/2010 DIONNA MURILLON, LAURIE 401 .9 Unspecified Essential Hypertension 08/11/2010 DIONNA NEW ACCOUNTS REPRESENTATIVE, LAURIE 788 .1 Dysuria 08/11/2010 DIONNA MURILLON, LAURIE V17 .49 FAM HX ASCVD (DISEASE) 08/11/2010 DIONNA MURILLOTate LAURIE V18 .0 FAM HX DIABETES MELLITUS 08/11/2010 DIONNA MURILLOTate LAURIE 300 .4 DYSTHYMIC DISORDER 08/11/2010 DIONNA NEW ACCOUNTS REPRESENTATIVE, LAURIE 307 .42 Persistent Disorder Of Initiating Or Maintaining Sleep 08/11/2010 DIONNA MURILLON, LAURIE 401 .9 Unspecified Essential Hypertension 08/11/2010 DIONNA MURILLOTate LAURIE 788 .1 Dysuria 08/11/2010 DIONNA NEW ACCOUNTS REPRESENTATIVE, LAURIE V17 .49 FAM HX ASCVD (DISEASE) 08/11/2010 DIONNA MURILLOTate LAURIE V18 .0 FAM HX DIABETES MELLITUS [...] 8.0 FAM HX DIABETES MELLITUS 08/11/2010 DIONNA NEW ACCOUNTS REPRESENTATIVE, LAURIE 300 .4 DYSTHYMIC DISORDER 08/11/2010 DIONNA FRAGOSO LAURIE 307 .42 Persistent Disorder Of Initiating Or Maintaining Sleep 08/11/2010 DIONNA NEW ACCOUNTS REPRESENTATIVE, LAURIE 401 .9 Unspecified Essential Hypertension 08/11/2010 DIONNA MURILLOTate LAURIE 788 .1 Dysuria 08/11/2010 DIONNA FRAGOSO LAURIE V17 .49 FAM HX ASCVD (DISEASE) 08/11/2010 DIONNA MURILLOTate LAURIE V18 .0 FAM HX DIABETES MELLITUS 08/11/2010 ROSHAN GILLESPIESKAITLIN 30 0.4 DYSTHYMIC DISORDER 08/11/2010 ROSHAN GILLESPIESKAITLIN 307.42 Persistent Disorder Of Initiating Or Maintaining [...] V1 8.0 FAM HX DIABETES MELLITUS 08/11/2010 DIONNAMYESHA FRAGOSO LAURIE 300 .4 DYSTHYMIC DISORDER 08/11/2010 DIONNAMYESHA FRAGOSO LAURIE 307 .42 Persistent Disorder Of Initiating Or Maintaining Sleep 08/11/2010 DIONNA NEW ACCOUNTS REPRESENTATIVE, LAURIE 401 .9 Unspecified Essential Hypertension 08/11/2010 DIONNAMYESHA FRAGOSO LAURIE 788 .1 Dysuria 08/11/2010 DIONNAMYESHA FRAGOSO LAURIE V17 .49 FAM HX ASCVD (DISEASE) 08/11/2010 DIONNA NEW ACCOUNTS REPRESENTATIVE, LAURIE V18 .0 FAM HX DIABETES MELLITUS 08/11/2010 BEAR YOUNG DO 300.4 DYSTHYMIC DISORDER 08/11/2010 BEAR YOUNG DO 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 08/11/2010 YOUNG DO, BEAR K 401.9 Unspecified Essential Hypertension 08/11/2010 YOUNG DO, BEAR K 788.1 Dysuria 08/11/2010 YOUNG DO, BEAR [...] V17.49 FAM HX ASCVD (DISEASE) 08/11/2010 MARIAN FARGOSO PRIETO R V18.0 FAM HX DIABETES MELLITUS 08/11/2010 DIONNA FRAGOSO, LAURIE 300 .4 DYSTHYMIC DISORDER 08/11/2010 DIONNA FRAGOSO LAURIE 307 .42 Persistent Disorder Of Initiating Or Maintaining Sleep 08/11/2010 DIONNA FRAGOSO, LAURIE 401 .9 Unspecified Essential Hypertension 08/11/2010 DIONNA FRAGOSO, LAURIE 788 .1 Dysuria 08/11/2010 DIONNA FRAGOSO LAURIE V17 .49 FAM HX ASCVD (DISEASE) 08/11/2010 DIONNA FRAGOSO, LAURIE V18 .0 FAM HX DIABETES MELLITUS 08/11/2010 MARIAN FRAGOSO [...] PRIETO R 401.9 Unspecified Essential Hypertension 08/11/2010 PRIETO FONSECA APRN R 788.1 Dysuria 08/11/2010 PRIETO FONSECA APRN R V17.49 FAM HX ASCVD (DISEASE) 08/11/2010 [...] 01/06/2011 Ot 682.6 01/06/2011 Ot 729.5 02/13/2011 HANNAH BEAR COFFMAN 522.5 Periapical Abscess Without Sinus 02/13/2011 YOUNG BEAR COFFMAN V65.42 Counseling - Smoking Cessation 02/13/2011 522.5 Leidy apical Abscess Without Sinus 02/13/2011 V65.42 Cou nseling - Smoking Cessation 02/13/2011 522.5 Leidy apical Abscess Without Sinus 02/13/2011 V65.42 Cou nseling - Smoking Cessation 02/13/2011 HANNAH BEAR COFFMAN 522.5 Periapical Abscess Without Sinus 02/13/2011 BEAR YOUNG DO V65.42 Counseling - Smoking Cessation 02/13/2011 PAU GARCIA APRN 522.5 Periapical Abscess Without Sinus 02/13/2011 PAU GARCIA APRN V65.42 Counseling - Smoking Cessation 02/13/2011 522.5 [...] V65.42 Cou nseling - Smoking Cessation 02/13/2011 RANJAN FRAGOSO, NENO S 522.5 Periapical Abscess Without Sinus 02/13/2011 RANJAN FRAGOSO NENO S V65.42 Counseling - Smoking Cessation 02/13/2011 DOUGLAS LEAL MD 522.5 Periapical Abscess Without Sinus 02/13/2011 DOUGLAS LEAL MD V65.4 2 Counseling - Smoking Cessation 02/13/2011 OMAR ADORNO APRN 52 2.5 Periapical Abscess Without Sinus 02/13/2011 OMAR ADORNO APRN V65.42 Counseling - Smoking Cessation 02/13/2011 RANJAN FRAGOSO, NENO S 522.5 Periapical Abscess Without Sinus 02/13/2011 RANJAN FRAGOSO NENO S V65.42 Counseling - Smoking Cessation 02/13/2011 OMAR ADORNO APRN 52 2.5 Periapical Abscess Without Sinus 02/13/2011 OMAR ADORNO APRN V65.42 Counseling - Smoking Cessation 02/13/2011 DOUGLAS LEAL MD 522.5 Periapical Abscess Without Sinus 02/13/2011 DOUGLAS LEAL MD V65.4 2 Counseling - Smoking Cessation 02/13/2011 AREN BAZAN LCPC 52 2.5 Periapical Abscess Without Sinus 02/13/2011 AREN BAZAN LCPC V65.42 Counseling - Smoking Cessation 02/13/2011 RANJAN FRAGOSO NENO S 522.5 Periapical Abscess Without Sinus 02/13/2011 RANJAN FRAGOSO NENO S V65.42 Counseling - [...] 522.5 Periapical Abscess Without Sinus 02/13/2011 RANJAN NEW ACCOUNTS REPRESENTATIVE, NENO S V65.42 Counseling - Smoking Cessation 02/13/2011 DALY CASHERO NEW ACCOUNTS REPRESENTATIVE, ROBERTO N 522.5 Periapical Abscess Without Sinus 02/13/2011 DALY CASHERO NEW ACCOUNTS REPRESENTATIVE, ROBERTO N V65.42 Counseling - Smoking Cessation 02/13/2011 RANJAN NEW ACCOUNTS REPRESENTATIVE, NENO S 522.5 Periapical Abscess Without Sinus 02/13/2011 RANJAN NEW ACCOUNTS REPRESENTATIVE, NENO S V65.42 Counseling - Smoking Cessation 02/13/2011 BRENDA PABLO, KAREN Quinn 522.5 Periapical Abscess Without Sinus 02/13/2011 KAREN GUTIERREZ PHD V65.42 Counseling - Smoking Cessation 02/13/2011 MARIAN FRAGOSO, PRIETO R 522.5 Periapical Abscess Without Sinus 02/13/2011 MARIAN NEW ACCOUNTS REPRESENTATIVE, PRIETO R V65.42 Counseling - Smoking Cessation 02/13/2011 DOUGLAS LEAL MD 522.5 Periapical Abscess Without Sinus 02/13/2011 DOUGLAS LEAL MD V65.4 2 Counseling - Smoking Cessation 02/13/2011 BRENDA PABLO, KAREN Quinn 522.5 Periapical Abscess Without Sinus 02/13/2011 KAREN GUTIERREZ PHD V65.42 Counseling - Smoking Cessation 02/13/2011 DIONNA NEW ACCOUNTS REPRESENTATIVE, LAURIE 522 .5 Periapical Abscess Without Sinus 02/13/2011 DIONNA NEW ACCOUNTS REPRESENTATIVE, LAURIE V65 .42 Counseling - Smoking Cessation 02/13/2011 RANJAN FRAGOSO, NENO S 522.5 Periapical Abscess Without Sinus 02/13/2011 RANJAN FRAGOSO, NENO S V65.42 Counseling - Smoking Cessation 02/13/2011 DIONNA NEW ACCOUNTS REPRESENTATIVE, LAURIE 522 .5 Periapical Abscess Without Sinus 02/13/2011 DIONNA NEW ACCOUNTS REPRESENTATIVE, LAUREI V65 .42 Counseling - Smoking Cessation 02/13/2011 DIONNA NEW ACCOUNTS REPRESENTATIVE, LAURIE 522 .5 Periapical Abscess Without Sinus 02/13/2011 DIONNA NEW ACCOUNTS REPRESENTATIVE, LAURIE V65 .42 Counseling - Smoking Cessation 02/13/2011 DIONNA NEW ACCOUNTS REPRESENTATIVE, LAURIE 522 .5 Periapical Abscess Without Sinus 02/13/2011 DIONNA NEW ACCOUNTS REPRESENTATIVE, LAURIE V65 .42 Counseling - Smoking Cessation 02/13/2011 OMAR ADORNO APRN 52 2.5 Periapical Abscess Without Sinus 02/13/2011 OMAR ADORNO APRN V65.42 Counseling - Smoking Cessation 02/13/2011 DIONNA NEW ACCOUNTS REPRESENTATIVE, LAURIE 522 .5 Periapical Abscess Without Sinus 02/13/2011 DIONNA NEW ACCOUNTS REPRESENTATIVE, LAURIE V65 .42 Counseling - Smoking Cessation [...] JULI V65.42 Counseling - Smoking Cessation 02/13/2011 DIONNA FRAGOSO, LAURIE 522 .5 Periapical Abscess Without Sinus 02/13/2011 DIONNA FRAGOSO, LAURIE V65 .42 Counseling - Smoking Cessation 02/13/2011 YOUNG DO BEAR K 522.5 Periapical Abscess Without Sinus 02/13/2011 YOUNG DO BEAR K V65.42 Counseling - Smoking Cessation 02/13/2011 MARIAN FRAGOSO PRIETO R 522.5 Periapical Abscess Without Sinus 02/13/2011 MARIAN FRAGOSO, PRIETO R V65.42 Counseling - Smoking Cessation 02/13/2011 DIONNA FRAGOSO, LAURIE 522 .5 Periapical Abscess Without Sinus 02/13/2011 DIONNA FRAGOSO LAURIE V65 .42 Counseling - Smoking Cessation 02/13/2011 MARIAN NEW ACCOUNTS REPRESENTATIVE, PRIETO R 522.5 Periapical Abscess Without Sinus 02/13/2011 MARIAN NEW ACCOUNTS REPRESENTATIVE, PRIETO R V65.42 Counseling - Smoking Cessation 02/13/2011 MARIAN FRAGOSO, PRIETO R 522.5 Periapical Abscess Without Sinus 02/13/2011 MARIAN NEW ACCOUNTS REPRESENTATIVE, PRIETO R V65.42 Counseling - Smoking Cessation 02/13/2011 DOUGLAS LEAL MD 522.5 Periapical Abscess Without Sinus 02/13/2011 DOUGLAS LEAL MD V65.4 2 Counseling - Smoking Cessation 02/13/2011 YOUNG DO BEAR K 522.5 Periapical Abscess Without Sinus 02/13/2011 [...] Dx (3 Yrs And Above, Im) 02/24/2011 BENI LYNCH, AREN [place] V04.81 Flu Dx (3 Yrs And Above, [...] Above, Im) 02/24/2011 MALIKA GUILLEN APRN, ROBERTO Yabrra V04.81 Flu Dx (3 Yrs And Above, [...] (3 Yrs And Above, Im) 02/24/2011 DIONNA NEW ACCOUNTS REPRESENTATIVE, LAURIE V04 .81 Flu Dx (3 Yrs And Above, Im) 02/24/2011 RANJAN FRAGOSO, NENO S V04.81 Flu Dx (3 Yrs And Above, Im) 02/24/2011 DIONNA NEW ACCOUNTS REPRESENTATIVE, LAURIE V04 .81 Flu Dx (3 Yrs And Above, Im) 02/24/2011 DIONNA NEW ACCOUNTS REPRESENTATIVE, LAURIE V04 .81 Flu Dx (3 Yrs And Above, Im) 02/24/2011 DIONNA NEW ACCOUNTS REPRESENTATIVE, LAURIE V04 .81 Flu Dx (3 Yrs And Above, Im) 02/24/2011 OMAR ADORNO APRN V04.81 Flu Dx (3 Yrs And Above, Im) 02/24/2011 DIONNA NEW ACCOUNTS REPRESENTATIVE, LAURIE V04 .81 Flu Dx (3 Yrs And Above, Im) 02/24/2011 WHITE DDS, KAITLIN Cortez V04.81 Flu Dx (3 Yrs And Above, Im) 02/24/2011 OLGA DDS, JULI V04.81 Flu Dx (3 Yrs And Above, Im) 02/24/2011 ESPINOZA DDS, JULI V04.81 Flu Dx (3 Yrs And Above, Im) 02/24/2011 DIONNA FRAGOSO, LAURIE V04 .81 Flu Dx (3 Yrs And Above, Im) 02/24/2011 BEAR YOUNG DO V04.81 Flu Dx (3 Yrs And Above, Im) 02/24/2011 MARIAN FRAGOSO, PRIETO R V04.81 Flu Dx (3 Yrs And Above, Im) 02/24/2011 DIONNA FRAGOSO, LAURIE V04 .81 Flu Dx (3 Yrs And Above, Im) 02/24/2011 MARIAN FRAGOSO, PRIETO R V04.81 Flu Dx (3 Yrs And Above, Im) 02/24/2011 MARIAN FRAGOSO, PRIETO R V04.81 Flu Dx (3 Yrs And Above, Im) 02/24/2011 DOUGLAS LAEL MD V04.8 1 Flu Dx (3 Yrs [...] Acute 03/09/2011 461.9 Sinu sitis Acute 03/09/2011 RANJAN NEW ACCOUNTS REPRESENTATIVE, NENO S 461.9 Sinusitis Acute 03/09/2011 DOUGLAS LEAL MD 461.9 Sinusitis Acute 03/09/2011 TILA FRAGOSO, OMAR T 46 1.9 Sinusitis Acute 03/09/2011 RANJAN NEW ACCOUNTS REPRESENTATIVE, NENO S 461.9 Sinusitis Acute 03/09/2011 TILA FRAGOSO, OMAR T 46 1.9 Sinusitis Acute 03/09/2011 DOUGLAS LEAL MD 461.9 Sinusitis Acute 03/09/2011 BENI STEEL ENGRAVERAREN GOEL 46 1.9 Sinusitis Acute 03/09/2011 RANJAN MURILLON, NENO S 461.9 Sinusitis Acute 03/09/2011 BRENDA PABLO, KAREN Quinn 461.9 Sinusitis Acute 03/09/2011 BRENDA PABLO, KAREN Quinn 461.9 Sinusitis Acute 03/09/2011 RANJAN NEW ACCOUNTS REPRESENTATIVE, NENO S 461.9 Sinusitis Acute 03/09/2011 RANJAN MURILLON, NENO S 461.9 Sinusitis Acute 03/09/2011 MALIKA GUILLEN NEW ACCOUNTS REPRESENTATIVE, ROBERTO N 461.9 Sinusitis Acute 03/09/2011 RANJAN NEW ACCOUNTS REPRESENTATIVE, NENO S 461.9 Sinusitis Acute 03/09/2011 BRENDA PABLO, KAREN Quinn 461.9 Sinusitis Acute 03/09/2011 MARIAN FRAGOSO, PRIETO R 461.9 Sinusitis Acute 03/09/2011 DOUGLAS LEAL MD 461.9 Sinusitis Acute 03/09/2011 BRENDA PABLO, KAREN Quinn 461.9 Sinusitis Acute 03/09/2011 DIONNA NEW ACCOUNTS REPRESENTATIVE, LAURIE 461 .9 Sinusitis Acute 03/09/2011 RANJAN NEW ACCOUNTS REPRESENTATIVE, NENO S 461.9 Sinusitis Acute 03/09/2011 DIONNA NEW ACCOUNTS REPRESENTATIVE, LAURIE 461 .9 Sinusitis Acute 03/09/2011 DIONNA NEW ACCOUNTS REPRESENTATIVE, LAURIE 461 .9 Sinusitis Acute 03/09/2011 DIONNA NEW ACCOUNTS REPRESENTATIVE, LAURIE 461 .9 Sinusitis Acute 03/09/2011 OMAR ADORNO APRN T 46 1.9 Sinusitis Acute 03/09/2011 DIONNA NEW ACCOUNTS REPRESENTATIVE, LAURIE 461 .9 Sinusitis Acute 03/09/2011 ROSHAN DDS, KAITLIN J 46 1.9 Sinusitis Acute 03/09/2011 ESPINOZA DDS, JULI 46 1.9 Sinusitis Acute 03/09/2011 ESPINOZA DDS, JULI 46 1.9 Sinusitis Acute 03/09/2011 DIONNA NEW ACCOUNTS REPRESENTATIVE, LAURIE 461 .9 Sinusitis Acute 03/09/2011 KENDY YOUNG DOA K 461.9 Sinusitis Acute 03/09/2011 MARIAN FRAGOSO, PRIETO R 461.9 Sinusitis Acute 03/09/2011 DIONNA NEW ACCOUNTS REPRESENTATIVE, LAURIE 461 .9 Sinusitis Acute 03/09/2011 MARIAN NEW ACCOUNTS REPRESENTATIVE, PRIETO R 461.9 Sinusitis Acute 03/09/2011 MARIAN FOUZIA, PRIETO R 461.9 Sinusitis Acute 03/09/2011 DOUGLAS LEAL MD 461.9 Sinusitis Acute 03/09/2011 BEAR YOUNG DO K 461.9 Sinusitis Acute 03/16/2011 BEAR YOUNG DO K 729.5 PAIN IN LIMB 03/16/2011 729.5 PAIN IN LIMB 03/16/2011 729.5 PAIN IN LIMB 03/16/2011 BEAR YOUNG DO K 729.5 PAIN IN LIMB 03/16/2011 PAU GARCIA [...] (below The Knee) 03/16/2011 OMAR ADORNO APRN T 72 9.5 Pain In The Leg (below The Knee) 03/16/2011 RANJAN FRAGOSO, NENO S 729.5 Pain In The Leg (below The Knee) 03/16/2011 OMAR ADORNO APRN T 72 9.5 Pain In The Leg (below The Knee) 03/16/2011 DOUGLAS LEAL MD 729.5 Pain In The Leg (below The Knee) 03/16/2011 AREN BAZAN LCPC B 72 9.5 Pain In The Leg [...] (below The Knee) 03/16/2011 ROBERTO YATES APRN 729.5 Pain In The Leg (below [...] The Leg (below The Knee) 03/16/2011 DIONNA NEW ACCOUNTS REPRESENTATIVE, LAURIE 729 .5 Pain In The Leg (below The Knee) 03/16/2011 NENO WOODRUFF APRN 729.5 Pain In The Leg (below The Knee) 03/16/2011 DIONNA NEW ACCOUNTS REPRESENTATIVE, LAURIE 729 .5 Pain In The Leg (below The Knee) 03/16/2011 DIONNA NEW ACCOUNTS REPRESENTATIVE, LAURIE 729 .5 Pain In The Leg (below The Knee) 03/16/2011 DIONNA NEW ACCOUNTS REPRESENTATIVE, LAURIE 729 .5 Pain In The Leg (below The Knee) 03/16/2011 OMAR ADORNO APRN 72 9.5 Pain In The Leg (below The Knee) 03/16/2011 DIONNA NEW ACCOUNTS REPRESENTATIVE, LAURIE 729 .5 Pain In The Leg (below The Knee) 03/16/2011 KAITLIN ISLAS DDS 72 9.5 Pain In The Leg (below The Knee) 03/16/2011 JULI ESPINOZA DDS 72 9.5 Pain In The Leg (below The Knee) 03/16/2011 JULI ESPINOZA DDS 72 9.5 Pain In The Leg (below The Knee) 03/16/2011 DIONNA NEW ACCOUNTS REPRESENTATIVE, LAURIE 729 .5 Pain In The Leg (below The Knee) 03/16/2011 BEAR YOUNG DO 729.5 Pain In The Leg (below The Knee) 03/16/2011 ENOCH FONSECA APRNINA R 729.5 Pain In The Leg (below The Knee) 03/16/2011 DIONNA NEW ACCOUNTS REPRESENTATIVE, LAURIE 729 .5 Pain In The Leg (below The Knee) 03/16/2011 MARIAN FRAGOSO PRIETO R 729.5 Pain In The Leg (below The Knee) 03/16/2011 MARIAN FRAGOSO PRIETO R 729.5 Pain In The Leg (below The Knee) 03/16/2011 DOUGLAS LEAL MD 729.5 Pain In The Leg (below The Knee) 03/16/2011 BEAR YOUNG DO 729.5 Pain In The Leg (below The Knee) 05/05/2011 BEAR YOUNG DO 289.3 LYMPHADENITIS UNSPECIFIED EXCEPT MESENTERIC 05/05/2011 289.3 LYMP HADENITIS UNSPECIFIED EXCEPT MESENTERIC 05/05/2011 289.3 LYMP HADENITIS UNSPECIFIED EXCEPT MESENTERIC 05/05/2011 KENDY YOUNG DOA K 289.3 LYMPHADENITIS UNSPECIFIED EXCEPT MESENTERIC 05/05/2011 PAU GARCIA APRN R 289.3 LYMPHADENITIS UNSPECIFIED EXCEPT MESENTERIC 05/05/2011 289.3 [...] Lymp hadenitis Unspecified Except Mesenteric 05/05/2011 RANJAN NEW ACCOUNTS REPRESENTATIVE, NENO S 289.3 Lymphadenitis Unspecified Except Mesenteric 05/05/2011 DOUGLAS LEAL MD 289.3 Lymphadenitis Unspecified Except Mesenteric 05/05/2011 OMAR ADORNO APRN T 28 9.3 Lymphadenitis Unspecified Except Mesenteric 05/05/2011 RANJAN NEW ACCOUNTS REPRESENTATIVE, NENO S 289.3 Lymphadenitis Unspecified Except Mesenteric 05/05/2011 OMAR ADORNO APRN T 28 9.3 Lymphadenitis Unspecified Except Mesenteric 05/05/2011 DOUGLAS LEAL MD 289.3 Lymphadenitis Unspecified Except Mesenteric 05/05/2011 BENI LYNCH, AREN B 28 9.3 Lymphadenitis Unspecified Except Mesenteric 05/05/2011 RANJAN NEW ACCOUNTS REPRESENTATIVE, NENO S 289.3 Lymphadenitis Unspecified Except Mesenteric 05/05/2011 BRENDA PHD, KAREN Quinn 289.3 Lymphadenitis Unspecified Except Mesenteric 05/05/2011 BRENDA PHD, KAREN Quinn 289.3 Lymphadenitis Unspecified Except Mesenteric 05/05/2011 RANJAN NEW ACCOUNTS REPRESENTATIVE, NENO S 289.3 Lymphadenitis Unspecified Except Mesenteric 05/05/2011 RANJAN NEW ACCOUNTS REPRESENTATIVE, NENO S 289.3 Lymphadenitis Unspecified Except Mesenteric 05/05/2011 ROBERTO YATES APRN 289.3 Lymphadenitis Unspecified Except Mesenteric 05/05/2011 RAJNAN NEW ACCOUNTS REPRESENTATIVE, NENO S 289.3 Lymphadenitis Unspecified Except Mesenteric 05/05/2011 BRENDA PHD, KAREN Quinn 289.3 Lymphadenitis Unspecified Except Mesenteric 05/05/2011 MARIAN NEW ACCOUNTS REPRESENTATIVE, PRIETO R 289.3 Lymphadenitis Unspecified Except Mesenteric 05/05/2011 DOUGLAS LEAL MD 289.3 Lymphadenitis Unspecified Except Mesenteric 05/05/2011 BRENDA PHD, KAREN Quinn 289.3 Lymphadenitis Unspecified Except Mesenteric 05/05/2011 DIONNA NEW ACCOUNTS REPRESENTATIVE, LAURIE 289 .3 Lymphadenitis Unspecified Except Mesenteric 05/05/2011 RANJAN NEW ACCOUNTS REPRESENTATIVE, NENO S 289.3 Lymphadenitis Unspecified Except Mesenteric 05/05/2011 DIONNA NEW ACCOUNTS REPRESENTATIVE, LAURIE 289 .3 Lymphadenitis Unspecified Except Mesenteric 05/05/2011 DIONNA NEW ACCOUNTS REPRESENTATIVE, LAURIE 289 .3 Lymphadenitis Unspecified Except Mesenteric 05/05/2011 DIONNA NEW ACCOUNTS REPRESENTATIVE, LAURIE 289 .3 Lymphadenitis Unspecified Except Mesenteric 05/05/2011 TILA NEW ACCOUNTS REPRESENTATIVE, OMAR T 28 9.3 Lymphadenitis Unspecified Except Mesenteric 05/05/2011 DIONNA NEW ACCOUNTS REPRESENTATIVE, LAURIE 289 .3 Lymphadenitis Unspecified Except Mesenteric 05/05/2011 WHITE DDS, KAITLIN J 28 9.3 Lymphadenitis Unspecified Except Mesenteric 05/05/2011 ESPINOZA DDS, JULI 28 9.3 Lymphadenitis Unspecified Except Mesenteric 05/05/2011 ESPINOZA DDS, JULI 28 9.3 Lymphadenitis Unspecified Except Mesenteric 05/05/2011 DIONNA NEW ACCOUNTS REPRESENTATIVE, LAURIE 289 .3 Lymphadenitis Unspecified Except Mesenteric 05/05/2011 BEAR YOUNG DO K 289.3 Lymphadenitis Unspecified Except Mesenteric 05/05/2011 MARIAN NEW ACCOUNTS REPRESENTATIVE, PRIETO R 289.3 Lymphadenitis Unspecified Except Mesenteric 05/05/2011 DIONNA NEW ACCOUNTS REPRESENTATIVE, LAURIE 289 .3 Lymphadenitis Unspecified Except Mesenteric 05/05/2011 MARIAN NEW ACCOUNTS REPRESENTATIVE, PRIETO R 289.3 Lymphadenitis Unspecified Except Mesenteric 05/05/2011 MARIAN NEW ACCOUNTS REPRESENTATIVE, PRIETO R 289.3 Lymphadenitis Unspecified Except Mesenteric [...] Disorder Of Initiating Or Maintaining Sleep 05/12/2011 AREN BAZAN LCPC 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 05/12/2011 NENO WOODRUFF APRN S 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 05/12/2011 BRENDA PABLO, KAREN Quinn 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 05/12/2011 BRENDA PABLO, KAREN Quinn 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 05/12/2011 KATIE WOODRUFF APRNNDA S 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 05/12/2011 YUKI WOODRUFF APRNA S 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 05/12/2011 ROBERTO YATES APRN 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 05/12/2011 RANJAN FRAGOSO, NENO S 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 05/12/2011 BRENDA PABLO, KAREN Quinn 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 05/12/2011 MARIAN FRAGOSO PRIETO R 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 05/12/2011 MEL JOYCE, DOUGLAS 307.4 2 Persistent Disorder Of Initiating Or Maintaining Sleep 05/12/2011 BRENDA PABLO, KAREN Quinn 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 05/12/2011 DIONNA FOUZIA LAURIE 307 .42 Persistent Disorder Of Initiating Or Maintaining Sleep 05/12/2011 NENO WOODRUFF APRN S 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 05/12/2011 DIONNA FRAGOSO LAURIE 307 .42 Persistent Disorder Of Initiating Or Maintaining Sleep 05/12/2011 DIONNAMYESHA FRAGOSO LAURIE 307 .42 Persistent Disorder Of [...] Of Initiating Or Maintaining Sleep 05/12/2011 DIONNA NEW ACCOUNTS REPRESENTATIVE, LAURIE 307 .42 Persistent Disorder Of Initiating Or Maintaining Sleep 05/12/2011 BEAR YOUNG DO 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 05/12/2011 ENOCH FONSECA APRNINA R 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 05/12/2011 DIONNA NEW ACCOUNTS REPRESENTATIVE, LAURIE 307 .42 Persistent Disorder Of Initiating Or Maintaining Sleep 05/12/2011 RPIETO FONSECA APRN R 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 05/12/2011 PRIETO FONSECA APRN R 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 05/12/2011 DOUGLAS LEAL MD 307.4 2 Persistent Disorder Of Initiating Or Maintaining Sleep 05/12/2011 BEAR YOUNG DO K 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 05/25/2011 BEAR YOUNG DO K 535.00 ACUTE GASTRITIS (WITHOUT HEMORRHAGE) 05/25/2011 535.00 ACU TE GASTRITIS (WITHOUT HEMORRHAGE) 05/25/2011 535.00 ACU TE GASTRITIS (WITHOUT HEMORRHAGE) 05/25/2011 BEAR YOUNG DO K 535.00 ACUTE GASTRITIS (WITHOUT HEMORRHAGE) 05/25/2011 PAU [...] LCPC 535.00 Acute Gastritis (without Hemorrhage) 05/25/2011 RANJAN NEW ACCOUNTS REPRESENTATIVE, NENO S 535.00 Acute Gastritis (without Hemorrhage) 05/25/2011 BRENDA PABLO, KAREN Quinn 535.00 Acute Gastritis (without Hemorrhage) 05/25/2011 BRENDA PABLO, KAREN Quinn 535.00 Acute Gastritis (without Hemorrhage) 05/25/2011 RANJAN MURILLON, NENO S 535.00 Acute Gastritis (without Hemorrhage) 05/25/2011 RANJAN MURILLON, NENO S 535.00 Acute Gastritis (without Hemorrhage) 05/25/2011 ROBERTO YATES APRN 535.00 Acute Gastritis (without Hemorrhage) 05/25/2011 RANJAN FRAGOSO, NENO S 535.00 Acute Gastritis (without Hemorrhage) 05/25/2011 BRENDA PABLO, KAREN Quinn 535.00 Acute Gastritis (without Hemorrhage) 05/25/2011 PRIETO FONSECA APRN R 535.00 Acute Gastritis (without Hemorrhage) 05/25/2011 MEL JOYCE, DOUGLAS 535.0 0 Acute Gastritis (without Hemorrhage) 05/25/2011 BRENDA PABLO, KAREN Quinn 535.00 Acute Gastritis (without Hemorrhage) 05/25/2011 DIONNA NEW ACCOUNTS REPRESENTATIVE, LAURIE 535 .00 Acute Gastritis (without Hemorrhage) 05/25/2011 RANJAN FRAGOSO, NENO S 535.00 Acute Gastritis (without Hemorrhage) 05/25/2011 DIONNA FRAGOSO, LAURIE 535 .00 Acute Gastritis (without Hemorrhage) 05/25/2011 DIONNA NEW ACCOUNTS REPRESENTATIVE, LAURIE 535 .00 Acute Gastritis (without Hemorrhage) 05/25/2011 DIONNA NEW ACCOUNTS REPRESENTATIVE, LAURIE 535 .00 Acute Gastritis (without Hemorrhage) 05/25/2011 OMAR ADORNO APRN 535.00 Acute Gastritis (without Hemorrhage) 05/25/2011 DIONNA FRAGOSO LAURIE 535 .00 Acute Gastritis (without Hemorrhage) 05/25/2011 KAITLIN ISLAS DDS 535.00 Acute Gastritis (without Hemorrhage) 05/25/2011 OLGA GILLESPIESJULI 535.00 Acute Gastritis (without Hemorrhage) 05/25/2011 OLGA GILLESPIESJULI 535.00 Acute Gastritis (without Hemorrhage) 05/25/2011 DIONNA FRAGOSO LAURIE 535 .00 Acute Gastritis (without Hemorrhage) 05/25/2011 BEAR YOUNG DO 535.00 Acute Gastritis (without Hemorrhage) 05/25/2011 PRIETO FONSECA APRN R 535.00 Acute Gastritis (without Hemorrhage) 05/25/2011 LAURIE VILLAREAL APRN 535 .00 Acute Gastritis (without Hemorrhage) 05/25/2011 [...] V65.42 Cou nseling - Smoking Cessation 07/05/2011 NENO WOODRUFF APRN S 466.0 Bronchitis, Acute 07/05/2011 YUKI WOODRUFF APRNA S V65.42 Counseling - Smoking Cessation 07/05/2011 DOUGLAS LEAL MD 466.0 Bronchitis, Acute 07/05/2011 DOUGLAS LEAL MD V65.4 2 Counseling - Smoking Cessation 07/05/2011 OMAR ADORNO APRN 46 6.0 Bronchitis, Acute 07/05/2011 OMAR ADORNO APRN V65.42 Counseling - Smoking Cessation 07/05/2011 NENO WOODRUFF APRN S 466.0 Bronchitis, Acute 07/05/2011 NENO WOODRUFF APRN S V65.42 Counseling - Smoking Cessation 07/05/2011 OMAR ADORNO APRN 46 6.0 Bronchitis, Acute 07/05/2011 OMAR ADORNO APRN V65.42 Counseling - Smoking Cessation 07/05/2011 DOUGLAS LEAL MD 466.0 Bronchitis, Acute 07/05/2011 DOUGLAS LEAL MD V65.4 2 Counseling - Smoking Cessation 07/05/2011 AREN BAZAN LCPC 46 6.0 Bronchitis, Acute 07/05/2011 AREN BAZAN LCPC V65.42 Counseling - Smoking Cessation 07/05/2011 NENO WOODRUFF APRN S 466.0 Bronchitis, Acute 07/05/2011 NENO WOODRUFF APRN S V65.42 Counseling - Smoking Cessation 07/05/2011 KAREN GUTIERREZ PHD 466.0 Bronchitis, Acute 07/05/2011 KAREN GUTIERREZ PHD V65.42 Counseling - Smoking Cessation 07/05/2011 BRENDA PABLO, KAREN Quinn 466.0 Bronchitis, Acute 07/05/2011 KAREN GUTIERREZ PHD V65.42 Counseling - Smoking Cessation 07/05/2011 RANJAN NEW ACCOUNTS REPRESENTATIVE, NENO S 466.0 Bronchitis, Acute 07/05/2011 RANJAN NEW ACCOUNTS REPRESENTATIVE, NENO S V65.42 Counseling - Smoking Cessation 07/05/2011 RANJAN NEW ACCOUNTS REPRESENTATIVE, NENO S 466.0 Bronchitis, Acute 07/05/2011 RANJAN NEW ACCOUNTS REPRESENTATIVE, NENO S V65.42 Counseling - Smoking Cessation 07/05/2011 MALIKA CASHERO NEW ACCOUNTS REPRESENTATIVE, ROBERTO N 466.0 Bronchitis, Acute 07/05/2011 DALY CASHERO NEW ACCOUNTS REPRESENTATIVE, ROBERTO N V65.42 Counseling - Smoking Cessation 07/05/2011 RANJAN NEW ACCOUNTS REPRESENTATIVE, NENO S 466.0 Bronchitis, Acute 07/05/2011 RANJAN MURILLON, NENO S V65.42 Counseling - Smoking Cessation 07/05/2011 BRENDA PABLO, KAREN Quinn 466.0 Bronchitis, Acute 07/05/2011 KAREN GUTIERREZ PHD V65.42 Counseling - Smoking Cessation 07/05/2011 MARIAN FRAGOSO, PRIETO R 466.0 Bronchitis, Acute 07/05/2011 MARIAN FOUZIA, PRIETO R V65.42 Counseling - Smoking Cessation 07/05/2011 DOUGLAS LEAL MD 466.0 Bronchitis, Acute 07/05/2011 DOUGLAS LEAL MD V65.4 2 Counseling - Smoking Cessation 07/05/2011 KAREN GUTIERREZ PHD 466.0 Bronchitis, Acute 07/05/2011 KAREN GUTIERREZ PHD V65.42 Counseling - Smoking Cessation 07/05/2011 DIONNA NEW ACCOUNTS REPRESENTATIVE, LAURIE 466 .0 Bronchitis, Acute 07/05/2011 DIONNA NEW ACCOUNTS REPRESENTATIVE, LAURIE V65 .42 Counseling - Smoking Cessation 07/05/2011 RANJAN NEW ACCOUNTS REPRESENTATIVE, NENO S 466.0 Bronchitis, Acute 07/05/2011 RANJAN NEW ACCOUNTS REPRESENTATIVE, NENO S V65.42 Counseling - Smoking Cessation 07/05/2011 DIONNA NEW ACCOUNTS REPRESENTATIVE, LAURIE 466 .0 Bronchitis, Acute 07/05/2011 DIONNA NEW ACCOUNTS REPRESENTATIVE, LAURIE V65 .42 Counseling - Smoking Cessation 07/05/2011 DIONNA NEW ACCOUNTS REPRESENTATIVE, LAURIE 466 .0 Bronchitis, Acute 07/05/2011 DIONNA NEW ACCOUNTS REPRESENTATIVE, LAURIE V65 .42 Counseling - Smoking Cessation 07/05/2011 DIONNA NEW ACCOUNTS REPRESENTATIVE, LAURIE 466 .0 Bronchitis, Acute 07/05/2011 DIONNA NEW ACCOUNTS REPRESENTATIVE, LAURIE V65 .42 Counseling - Smoking Cessation 07/05/2011 TILA MURILLON OMAR T 46 6.0 Bronchitis, Acute 07/05/2011 TILA NEW ACCOUNTS REPRESENTATIVE OMAR T V65.42 Counseling - Smoking Cessation 07/05/2011 DIONNA NEW ACCOUNTS REPRESENTATIVE, LAURIE 466 .0 Bronchitis, Acute 07/05/2011 DIONNA NEW ACCOUNTS REPRESENTATIVE, LAURIE V65 .42 Counseling - Smoking Cessation 07/05/2011 WHITE DDS, KAITLIN J 46 6.0 Bronchitis, Acute 07/05/2011 WHITE DDS, KAITLIN J V65.42 Counseling - Smoking Cessation 07/05/2011 ESPINOZA DDS, JULI 46 6.0 Bronchitis, Acute 07/05/2011 ESPINOZA DDS, JULI V65.42 Counseling - Smoking Cessation 07/05/2011 ESPINOZA DDS, JULI 46 6.0 Bronchitis, Acute 07/05/2011 ESPINOZA DDS, JULI V65.42 Counseling - Smoking Cessation 07/05/2011DIONNA NEW ACCOUNTS REPRESENTATIVE, LAURIE 466 .0 Bronchitis, Acute 07/05/2011 DIONNA NEW ACCOUNTS REPRESENTATIVE, LAURIE V65 .42 Counseling - Smoking Cessation 07/05/2011 YOUNG DO, BEAR K 466.0 Bronchitis, Acute 07/05/2011 YOUNG DO, BEAR K V65.42 Counseling - Smoking Cessation 07/05/2011 MARIAN NEW ACCOUNTS REPRESENTATIVE, PRIETO R 466.0 Bronchitis, Acute 07/05/2011 MARIAN NEW ACCOUNTS REPRESENTATIVE, PRIETO R V65.42 Counseling - Smoking Cessation 07/05/2011 DIONNA NEW ACCOUNTS REPRESENTATIVE, LAURIE 466 .0 Bronchitis, Acute 07/05/2011 DIONNA NEW ACCOUNTS REPRESENTATIVE, LAURIE V65 .42 Counseling - Smoking Cessation 07/05/2011 MARIAN NEW ACCOUNTS REPRESENTATIVE, PRIETO R 466.0 Bronchitis, Acute 07/05/2011 MARIAN NEW ACCOUNTS REPRESENTATIVE, PRIETO R V65.42 Counseling - Smoking Cessation 07/05/2011 MARIAN NEW ACCOUNTS REPRESENTATIVE, PRIETO R 466.0 Bronchitis, Acute 07/05/2011 MARIAN NEW ACCOUNTS REPRESENTATIVE, PRIETO R V65.42 Counseling - Smoking Cessation 07/05/2011 DOUGLAS LEAL MD 466.0 Bronchitis, Acute 07/05/2011 DOUGLAS LEAL MD V65.4 2 Counseling - Smoking Cessation 07/05/2011 KENDY YOUNG DOA K 466.0 Bronchitis, Acute 07/05/2011 HANNAH COFFMAN BEAR K V65.42 Counseling - Smoking Cessation 10/05/2011 HANNAH COFFMAN BEAR K 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 10/05/2011 726.32 LAT ERAL EPICONDYLITIS ELBOW REGION 10/05/2011 726.32 LAT ERAL EPICONDYLITIS ELBOW REGION 10/05/2011 HANNAH COFFMANKENDYA K 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 10/05/2011 [...] Epicondylitis Elbow Region 10/05/2011 NENO WOODRUFF APRN 726.32 Lateral Epicondylitis Elbow Region 10/05/2011 DOUGLAS LEAL MD 726.3 2 Lateral Epicondylitis Elbow Region 10/05/2011 OMAR ADORNO APRN 726.32 Lateral Epicondylitis Elbow Region 10/05/2011 NENO WOODRUFF APRN 726.32 Lateral Epicondylitis Elbow Region 10/05/2011 OMAR ADORNO APRN 726.32 Lateral Epicondylitis Elbow Region 10/05/2011 DOUGLAS LEAL MD 726.3 2 Lateral Epicondylitis Elbow Region 10/05/2011 AREN BAZAN LCPC 726.32 Lateral Epicondylitis Elbow Region 10/05/2011 RANJAN FRAGOSO, NENO S 726.32 Lateral Epicondylitis Elbow Region 10/05/2011 BRENDA PABLO, KAREN Quinn 726.32 Lateral Epicondylitis Elbow Region 10/05/2011 BRENDA PABLO, KAREN Quinn 726.32 Lateral Epicondylitis Elbow Region 10/05/2011 RANJAN FRAGOSO, NENO S 726.32 Lateral Epicondylitis Elbow Region 10/05/2011 RANJAN MURILLON, NENO S 726.32 Lateral Epicondylitis Elbow Region 10/05/2011 DALY HOUSTONDIAMOND MURILLON, ROBERTO N 726.32 Lateral Epicondylitis Elbow Region 10/05/2011 RANJAN FRAGOSO, NENO S 726.32 Lateral Epicondylitis Elbow Region 10/05/2011 BRENDA PABLO, KAREN Qunin 726.32 Lateral Epicondylitis Elbow Region 10/05/2011 MARIAN FRAGOSO, PRIETO Betancourt 726.32 Lateral Epicondylitis Elbow Region 10/05/2011 MEL JOYCE, DOUGLAS 726.3 2 Lateral Epicondylitis Elbow Region 10/05/2011 BRENDA PABLO, KAREN Quinn 726.32 Lateral Epicondylitis Elbow Region 10/05/2011 DIONNA NEW ACCOUNTS REPRESENTATIVE, LAURIE 726 .32 Lateral Epicondylitis Elbow Region 10/05/2011 RANJAN FRAGOSO, NENO S 726.32 Lateral Epicondylitis Elbow Region 10/05/2011 DIONNA NEW ACCOUNTS REPRESENTATIVE, LAURIE 726 .32 Lateral Epicondylitis Elbow Region 10/05/2011 DIONNA MURILLON, LAURIE 726 .32 Lateral Epicondylitis Elbow Region 10/05/2011 DIONNA NEW ACCOUNTS REPRESENTATIVE, LAURIE 726 .32 Lateral Epicondylitis Elbow Region 10/05/2011 OMAR ADORNO APRN 726.32 Lateral Epicondylitis Elbow Region 10/05/2011 DIONNA NEW ACCOUNTS REPRESENTATIVE, LAURIE 726 .32 Lateral Epicondylitis Elbow Region 10/05/2011 KAITLIN ISLAS DDS 726.32 Lateral Epicondylitis Elbow Region 10/05/2011 JULI ESPINOZA DDS 726.32 Lateral Epicondylitis Elbow Region 10/05/2011 JULI ESPINOZA DDS 726.32 Lateral Epicondylitis Elbow Region 10/05/2011 DIONNAMYESHA FRAGOSO, LAURIE 726 .32 Lateral Epicondylitis Elbow Region 10/05/2011 YOUNG BEAR COFFMAN K 726.32 Lateral Epicondylitis Elbow Region 10/05/2011 MARIAN FRAGOSO, PRIETO R 726.32 Lateral Epicondylitis Elbow Region 10/05/2011 DIONNA FRAGOSO, LAURIE 726 .32 Lateral Epicondylitis Elbow Region 10/05/2011 MARIAN FRAGOSO, PRIETO R 726.32 Lateral Epicondylitis Elbow Region 10/05/2011 MARIAN MURILLON, PRIETO R 726.32 Lateral Epicondylitis Elbow Region 10/05/2011 DOUGLAS LEAL MD 726.3 2 Lateral Epicondylitis Elbow Region 10/05/2011 HANNAH COFFMANBEAR K 726.32 Lateral Epicondylitis Elbow Region 12/16/2011 YOUNG BEAR COFFMAN K 782.1 RASH 12/16/2011 782.1 RASH 12/16/2011 782.1 RASH 12/16/2011 BEAR YOUNG DO K 782.1 RASH 12/16/2011 PAU GARCIA APRN 782.1 RASH 12/16/2011 782.1 RASH 12/16/2011 782.1 [...] 12/16/2011 DOUGLAS LEAL MD 782.1 Rash 12/16/2011 AREN BAZAN LCPC 78 2.1 Rash 12/16/2011 NENO WOODRUFF APRN S 782.1 Rash 12/16/2011 BRENDA PHD, KAREN Quinn 782.1 Rash 12/16/2011 BRENDA PHD, KAREN Quinn 782.1 Rash 12/16/2011 RANJAN FRAGOSO, NENO S 782.1 Rash 12/16/2011 RANJAN FRAGOSO, NENO S 782.1 Rash 12/16/2011 MALIKA GUILLEN APRN ROBERTO N 782.1 Rash 12/16/2011 RANJAN FRAGOSO, NENO S 782.1 Rash 12/16/2011 BRENDA PHD, KAREN Quinn 782.1 Rash 12/16/2011 MARIAN FRAGOSO, PRIETO R 782.1 Rash 12/16/2011 DOUGLAS LEAL MD 782.1 Rash 12/16/2011 BRENDA PHD, KAREN Quinn 782.1 Rash 12/16/2011 DIONNA NEW ACCOUNTS REPRESENTATIVE, LAURIE 782 .1 Rash 12/16/2011 RANJAN FRAGOSO, NENO S 782.1 Rash 12/16/2011 DIONNA NEW ACCOUNTS REPRESENTATIVE, LAURIE 782 .1 Rash 12/16/2011 DIONNA NEW ACCOUNTS REPRESENTATIVE, LAURIE 782 .1 Rash 12/16/2011 DIONNA NEW ACCOUNTS REPRESENTATIVE, LAURIE 782 .1 Rash 12/16/2011 OMAR ADORNO APRN 78 2.1 Rash 12/16/2011 DIONNA NEW ACCOUNTS REPRESENTATIVE, LAURIE 782 .1 Rash 12/16/2011 WHITE DDS, KAITLIN Cortez 78 2.1 Rash 12/16/2011 ESPINOZA DDS, JULI 78 2.1 Rash 12/16/2011 ESPINOZA DDS, JULI 78 2.1 Rash 12/16/2011 DIONNA NEW ACCOUNTS REPRESENTATIVE, LAURIE 782 .1 Rash 12/16/2011 BEAR YOUNG DO 782.1 Rash 12/16/2011 MARIAN NEW ACCOUNTS REPRESENTATIVE, PRIETO R 782.1 Rash 12/16/2011 DIONNA NEW ACCOUNTS REPRESENTATIVE, LAURIE 782 .1 Rash 12/16/2011 MARIAN NEW ACCOUNTS REPRESENTATIVE, PRIETO R 782.1 Rash 12/16/2011 MARIAN NEW ACCOUNTS REPRESENTATIVE, PRIETO R 782.1 Rash 12/16/2011 DOUGLAS LEAL MD 782.1 Rash 12/16/2011 BEAR YOUNG DO 782.1 Rash 03/03/2012 BEAR YOUNG DO 462 PHARYNGITIS 03/03/2012 BEAR YOUNG DO 784.49 HOARSENESS 03/03/2012 YOUNG DO, BEAR K 786.2 cough 03/03/2012 YOUNG DO, BEAR K 788.41 URINARY FREQUENCY 03/03/2012 462 PHARYN [...] BEAR K 788.41 URINARY FREQUENCY 03/03/2012 JOSE FRAGOSO, PAU R 462 PHARYNGITIS 03/03/2012 JOSE FRAGOSO, PAU R 784.49 HOARSENESS 03/03/2012 JOSE FRAGOSO, PAU R 786.2 cough 03/03/2012 JOSE FRAGOSO, PAU R 788.41 URINARY FREQUENCY 03/03/2012 462 [...] Cough 03/03/2012 788.41 Uri nary Frequency 03/03/2012 YUKI WOODRUFF APRNA S 462 Pharyngitis 03/03/2012 YUKI WOODRUFF APRNA S 784.49 Hoarseness 03/03/2012 KATIE WOODRUFF APRNNDA [...] OMAR ADORNO APRN 788.41 Urinary Frequency 03/03/2012 YUKI WOODRUFF APRNA S 462 Pharyngitis 03/03/2012 RANJAN NEW ACCOUNTS REPRESENTATIVE, NENO S 784.49 Hoarseness 03/03/2012 RANJAN NEW ACCOUNTS REPRESENTATIVE, NENO S 786.2 Cough 03/03/2012 RANJAN NEW ACCOUNTS REPRESENTATIVE, NENO S 788.41 Urinary Frequency 03/03/2012 TILA FRAGOSO, OMAR T 46 2 Pharyngitis 03/03/2012 TILA NEW ACCOUNTS REPRESENTATIVE, OMAR T 784.49 Hoarseness 03/03/2012 TILA NEW ACCOUNTS REPRESENTATIVE, OMAR T 78 6.2 Cough 03/03/2012 TILA NEW ACCOUNTS REPRESENTATIVE, OMAR T 788.41 Urinary Frequency 03/03/2012 DOUGLAS LEAL MD 462 Pharyngitis 03/03/2012 DOUGLAS LEAL MD 784.4 9 Hoarseness 03/03/2012 DOUGLAS LEAL MD 786.2 Cough 03/03/2012 DOUGLAS LEAL MD 788.4 1 Urinary Frequency 03/03/2012 BENI STEEL ENGRAVER, AREN B 46 2 Pharyngitis 03/03/2012 BENI STEEL ENGRAVER, AREN B 784.49 Hoarseness 03/03/2012 BENI STEEL ENGRAVER, AREN B 78 6.2 Cough 03/03/2012 BENI STEEL ENGRAVER, AREN B 788.41 Urinary Frequency 03/03/2012 RANJAN MURILLON, NENO S 462 Pharyngitis 03/03/2012 RANJAN MURILLON, NENO S 784.49 Hoarseness 03/03/2012 RANJAN NEW ACCOUNTS REPRESENTATIVE, NENO S 786.2 Cough 03/03/2012 RANJAN NEW ACCOUNTS REPRESENTATIVE, NENO S 788.41 Urinary Frequency 03/03/2012 KAREN GUTIERREZ PHD 462 Pharyngitis 03/03/2012 BRENDA PABLO, KAREN Quinn 784.49 Hoarseness 03/03/2012 BRENDA PABLO, KAREN Quinn 786.2 Cough 03/03/2012 BRENDA PABLO, KAREN Quinn 788.41 Urinary Frequency 03/03/2012 KAREN GUTIERREZ PHD 462 Pharyngitis 03/03/2012 BRENDA PABLO, KAREN Quinn 784.49 Hoarseness 03/03/2012 BRENDA PABLO, KAREN Quinn 786.2 Cough 03/03/2012 BRENDA PABLO, KAREN Quinn 788.41 Urinary Frequency 03/03/2012 RANJAN FRAGOSO, NENO S 462 Pharyngitis 03/03/2012 RANJAN NEW ACCOUNTS REPRESENTATIVE, NENO S 784.49 Hoarseness 03/03/2012 RANJAN NEW ACCOUNTS REPRESENTATIVE, NENO S 786.2 Cough 03/03/2012 RANJAN NEW ACCOUNTS REPRESENTATIVE, NENO S 788.41 Urinary Frequency 03/03/2012 RANJAN NEW ACCOUNTS REPRESENTATIVE, NENO S 462 Pharyngitis 03/03/2012 RANJAN NEW ACCOUNTS REPRESENTATIVE, NENO S 784.49 Hoarseness 03/03/2012 RANJAN NEW ACCOUNTS REPRESENTATIVE, NENO S 786.2 Cough 03/03/2012 RANJAN NEW ACCOUNTS REPRESENTATIVE, NENO S 788.41 Urinary Frequency 03/03/2012 DALY CASHERO NEW ACCOUNTS REPRESENTATIVE, ROBERTO N 462 Pharyngitis 03/03/2012 DALY CASHERO NEW ACCOUNTS REPRESENTATIVE, ROBERTO N 784.49 Hoarseness 03/03/2012 DALY CASHERO NEW ACCOUNTS REPRESENTATIVE, ROBERTO N 786.2 Cough 03/03/2012 DALY CASHERO NEW ACCOUNTS REPRESENTATIVE, ROBERTO N 788.41 Urinary Frequency 03/03/2012 RANJAN NEW ACCOUNTS REPRESENTATIVE, NENO S 462 Pharyngitis 03/03/2012 RANJAN NEW ACCOUNTS REPRESENTATIVE, NENO S 784.49 Hoarseness 03/03/2012 RANJAN NEW ACCOUNTS REPRESENTATIVE, ENNO S 786.2 Cough 03/03/2012 RANJAN NEW ACCOUNTS REPRESENTATIVE, NENO S 788.41 Urinary Frequency 03/03/2012 BRENDA PHD, KAREN Quinn 462 Pharyngitis 03/03/2012 BRENDA PHD, KAREN Quinn 784.49 Hoarseness 03/03/2012 BRENDA PHD, KAREN Quinn 786.2 Cough 03/03/2012 BRENDA PHD, KAREN Quinn 788.41 Urinary Frequency 03/03/2012 MARIAN NEW ACCOUNTS REPRESENTATIVE, PRIETO R 4 62 Pharyngitis 03/03/2012 MARIAN NEW ACCOUNTS REPRESENTATIVE, PRIETO R 784.49 Hoarseness 03/03/2012 MARIAN NEW ACCOUNTS REPRESENTATIVE, PRIETO R 786.2 Cough 03/03/2012 MARIAN NEW ACCOUNTS REPRESENTATIVE, PRIETO R 788.41 Urinary Frequency 03/03/2012 DOUGLAS LEAL MD 462 Pharyngitis 03/03/2012 DOUGLAS LEAL MD 784.4 9 Hoarseness 03/03/2012 DOUGLAS LEAL MD 786.2 Cough 03/03/2012 MEL JOYCE, DOUGLAS 788.4 1 Urinary Frequency 03/03/2012 BRENDA PHD, KAREN Quinn 462 Pharyngitis 03/03/2012 BRENDA PHD, KAREN Quinn 784.49 Hoarseness 03/03/2012 BRENDA PHD, KAREN Quinn 786.2 Cough 03/03/2012 BRENDA PHD, KAREN Quinn 788.41 Urinary Frequency 03/03/2012 DIONNA NEW ACCOUNTS REPRESENTATIVE, LAURIE 462 Pharyngitis 03/03/2012 DIONNA NEW ACCOUNTS REPRESENTATIVE, LAURIE 784 .49 Hoarseness 03/03/2012 DIONNA NEW ACCOUNTS REPRESENTATIVE, LAURIE 786 .2 Cough 03/03/2012 DIONNA NEW ACCOUNTS REPRESENTATIVE, LAURIE 788 .41 Urinary Frequency 03/03/2012 RANJAN NEW ACCOUNTS REPRESENTATIVE, NENO S 462 Pharyngitis 03/03/2012 RANJAN NEW ACCOUNTS REPRESENTATIVE, NENO S 784.49 Hoarseness 03/03/2012 RANJAN NEW ACCOUNTS REPRESENTATIVE, NENO S 786.2 Cough 03/03/2012 RANJAN NEW ACCOUNTS REPRESENTATIVE, NENO S 788.41 Urinary Frequency 03/03/2012 DIONNA NEW ACCOUNTS REPRESENTATIVE, LAURIE 462 Pharyngitis 03/03/2012 DIONNA NEW ACCOUNTS REPRESENTATIVE, LAURIE 784 .49 Hoarseness 03/03/2012 DIONNA NEW ACCOUNTS REPRESENTATIVE, LAURIE 786 .2 Cough 03/03/2012 DIONNA NEW ACCOUNTS REPRESENTATIVE, LAURIE 788 .41 Urinary Frequency 03/03/2012 DIONNA NEW ACCOUNTS REPRESENTATIVE, LAURIE 462 Pharyngitis 03/03/2012 DIONNA NEW ACCOUNTS REPRESENTATIVE, LAURIE 784 .49 Hoarseness 03/03/2012 DIONNA NEW ACCOUNTS REPRESENTATIVE, LAURIE 786 .2 Cough 03/03/2012 DIONNA NEW ACCOUNTS REPRESENTATIVE, LAURIE 788 .41 Urinary Frequency 03/03/2012 DIONNA NEW ACCOUNTS REPRESENTATIVE, LAURIE 462 Pharyngitis 03/03/2012 DIONNA NEW ACCOUNTS REPRESENTATIVE, LAURIE 784 .49 Hoarseness 03/03/2012 DIONNA NEW ACCOUNTS REPRESENTATIVE, LAURIE 786 .2 Cough 03/03/2012 DIONNA NEW ACCOUNTS REPRESENTATIVE, LAURIE 788 .41 Urinary Frequency 03/03/2012 OMAR ADORNO APRN 46 2 Pharyngitis 03/03/2012 OMAR ADORNO APRN 784.49 Hoarseness 03/03/2012 OMAR ADORNO APRN 78 6.2 Cough 03/03/2012 OMAR ADORNO APRN 788.41 Urinary Frequency 03/03/2012 DIONNA NEW ACCOUNTS REPRESENTATIVE, LAURIE 462 Pharyngitis 03/03/2012 DIONNA NEW ACCOUNTS REPRESENTATIVE, LAURIE 784 .49 Hoarseness 03/03/2012 DIONNA NEW ACCOUNTS REPRESENTATIVE, LAURIE 786 .2 Cough 03/03/2012 DIONNA NEW ACCOUNTS REPRESENTATIVE, LAURIE 788 .41 Urinary Frequency 03/03/2012 WHITE [...] DDS, JULI 788.41 Urinary Frequency 03/03/2012 DIONNA NEW ACCOUNTS REPRESENTATIVE, LAURIE 462 Pharyngitis 03/03/2012 DIONNA NEW ACCOUNTS REPRESENTATIVE, LAURIE 784 .49 Hoarseness 03/03/2012 DIONNA NEW ACCOUNTS REPRESENTATIVE, LAURIE 786 .2 Cough 03/03/2012 DIONNA NEW ACCOUNTS REPRESENTATIVE, LAURIE 788 .41 Urinary Frequency 03/03/2012 YOUNG DO, BEAR K 462 Pharyngitis 03/03/2012 YOUNG DO, BEAR K 784.49 Hoarseness 03/03/2012 YOUNG DO, BEAR K 786.2 Cough 03/03/2012 YOUNG DO, BEAR K 788.41 Urinary Frequency 03/03/2012 MARIAN NEW ACCOUNTS REPRESENTATIVE, PRIETO R 4 62 Pharyngitis 03/03/2012 MARIAN MURILLON PRIETO R 784.49 Hoarseness 03/03/2012 MARIAN NEW ACCOUNTS REPRESENTATIVE, PRIETO R 786.2 Cough 03/03/2012 MARIAN NEW ACCOUNTS REPRESENTATIVE, PRIETO R 788.41 Urinary Frequency 03/03/2012 DIONNA NEW ACCOUNTS REPRESENTATIVE, LAURIE 462 Pharyngitis 03/03/2012 DIONNA NEW ACCOUNTS REPRESENTATIVE, LAURIE 784 .49 Hoarseness 03/03/2012 DIONNA NEW ACCOUNTS REPRESENTATIVE, LAURIE 786 .2 Cough 03/03/2012 DIONNA NEW ACCOUNTS REPRESENTATIVE, LAURIE 788 .41 Urinary Frequency 03/03/2012 MARIAN NEW ACCOUNTS REPRESENTATIVE, PRIETO R 4 62 Pharyngitis 03/03/2012 MARIAN NEW ACCOUNTS REPRESENTATIVE, PRIETO R 784.49 Hoarseness 03/03/2012 MARIAN NEW ACCOUNTS REPRESENTATIVE, PRIETO R 786.2 Cough 03/03/2012 MARIAN NEW ACCOUNTS REPRESENTATIVE, PRIETO R 788.41 Urinary Frequency 03/03/2012 MARIAN NEW ACCOUNTS REPRESENTATIVE, PRIETO R 4 62 Pharyngitis 03/03/2012 MARIAN NEW ACCOUNTS REPRESENTATIVE, PRIETO R 784.49 Hoarseness 03/03/2012 MARIAN NEW ACCOUNTS REPRESENTATIVE, PRIETO R 786.2 Cough 03/03/2012 MARIAN NEW ACCOUNTS REPRESENTATIVE, PRIETO R 788.41 Urinary Frequency 03/03/2012 DOUGLAS LEAL MD 462 Pharyngitis 03/03/2012 DOUGLAS LEAL MD 784.4 9 Hoarseness 03/03/2012 DOUGLAS LEAL MD 786.2 Cough 03/03/2012 DOUGLAS LEAL MD 788.4 1 Urinary Frequency 03/03/2012 KENDY YOUNG DOA K 462 Pharyngitis 03/03/2012 BEAR YOUNG DO K 784.49 Hoarseness 03/03/2012 KENDY YOUNG DOA K 786.2 Cough 03/03/2012 YOUNG DO BEAR K 788.41 Urinary Frequency 03/17/2012 HANNAH COFFMAN BEAR K 464.00 LARYNGITIS ACUTE W/O OBSTRUCTION 03/17/2012 464.00 LAR YNGITIS ACUTE W/O OBSTRUCTION 03/17/2012 464.00 LAR YNGITIS ACUTE W/O OBSTRUCTION 03/17/2012 KENDY YOUNG DOA K 464.00 LARYNGITIS ACUTE W/O OBSTRUCTION 03/17/2012 [...] 464.00 Lar yngitis Acute W/o Obstruction 03/17/2012 NENO WOODRUFF APRN S 464.00 Laryngitis Acute W/o Obstruction 03/17/2012 DOUGLAS LEAL MD 464.0 0 Laryngitis Acute W/o Obstruction 03/17/2012 OMAR ADORNO APRN 464.00 Laryngitis Acute W/o Obstruction 03/17/2012 NENO WOODRUFF APRN S 464.00 Laryngitis Acute W/o Obstruction 03/17/2012 OMAR ADORNO APRN 464.00 Laryngitis Acute W/o Obstruction 03/17/2012 DOUGLAS LEAL MD 464.0 0 Laryngitis Acute W/o Obstruction 03/17/2012 BENI STEEL ENGRAVER, AREN B 464.00 Laryngitis Acute W/o Obstruction 03/17/2012 NENO WOODRUFF APRN S 464.00 Laryngitis Acute W/o Obstruction 03/17/2012 BRENDA PABLO, KAREN Quinn 464.00 Laryngitis Acute W/o Obstruction 03/17/2012 BRENDA PABLO, KAREN Quinn 464.00 Laryngitis Acute W/o Obstruction 03/17/2012 NENO WOODRUFF APRN S 464.00 Laryngitis Acute W/o Obstruction 03/17/2012 NENO [...] 0 Laryngitis Acute W/o Obstruction 03/17/2012 BRENDA PABLO, KAREN Quinn 464.00 Laryngitis Acute W/o Obstruction 03/17/2012 DIONNA FRAGOSO LAURIE 464 .00 Laryngitis Acute W/o Obstruction 03/17/2012 NENO WOODRUFF APRN 464.00 Laryngitis Acute W/o Obstruction 03/17/2012 DIONNA FRAGOSO LAURIE 464 .00 Laryngitis Acute W/o Obstruction 03/17/2012 DIONNA FRAGOSO LAURIE 464 .00 Laryngitis Acute W/o Obstruction 03/17/2012 DIONNA FRAGOSO LAURIE 464 .00 Laryngitis Acute W/o Obstruction 03/17/2012 OMAR ADORNO APRN 464.00 Laryngitis Acute W/o Obstruction 03/17/2012 DIONNA FRAGOSO LAURIE 464 .00 Laryngitis Acute W/o Obstruction 03/17/2012 ROSHAN DDS, KAITLIN J 464.00 Laryngitis Acute W/o Obstruction 03/17/2012 ESPINOZA DDS, JULI 464.00 Laryngitis Acute W/o Obstruction 03/17/2012 ESPINOZA DDS, JULI 464.00 Laryngitis Acute W/o Obstruction 03/17/2012 DIONNA FRAGOSO LAURIE 464 .00 Laryngitis Acute W/o Obstruction 03/17/2012 BEAR YOUNG DO 464.00 Laryngitis Acute W/o Obstruction 03/17/2012 ENOCH FONSECA APRNINA R 464.00 Laryngitis Acute W/o Obstruction 03/17/2012 [...] ND FOR PROPHYLACTIC VACCIN AND INOCULATI 03/31/2012 BEAR YOUNG DO 527.5 CALCULUS, ANUJA GLAND/DUCT 03/31/2012 BEAR YOUNG DO 530.81 GERD 03/31/2012 527.5 CALC ULUS, ANUJA GLAND/DUCT 03/31/2012 530.81 GERD 03/31/2012 527.5 CALC ULUS, ANUJA GLAND/DUCT 03/31/2012 530.81 GERD 03/31/2012 BEAR YOUNG DO 527.5 CALCULUS, ANUJA GLAND/DUCT 03/31/2012 BEAR YOUNG DO 530.81 GERD 03/31/2012 ALICJA GARCIA APRNRICIA R 527.5 CALCULUS, ANUJA GLAND/DUCT 03/31/2012 JOSE FRAGOSO PAU R 530.81 GERD 03/31/2012 527.5 CALC ULUS, ANUJA [...] ulus, Anuja Gland/duct 03/31/2012 530.81 GERD 03/31/2012 RANJAN FRAGOSO, NENO S 527.5 Calculus, Anuja Gland/duct 03/31/2012 RANJAN FRAGOSO, NENO S 530.81 GERD 03/31/2012 DOUGLAS LEAL MD 527.5 Calculus, Anuja Gland/duct 03/31/2012 DOUGLAS LEAL MD 530.8 1 GERD 03/31/2012 OMAR ADORNO APRN T 52 7.5 Calculus, Anuja Gland/duct 03/31/2012 TILA FRAGOSO, OMAR T 530.81 GERD 03/31/2012 RANJAN FRAGOSO, NENO S 527.5 Calculus, Anuja Gland/duct 03/31/2012 RANJAN FRAGOSO, NENO S 530.81 GERD 03/31/2012 OMAR ADORNO APRN T 52 7.5 Calculus, Anuja Gland/duct 03/31/2012 TILA FRAGOSO OMAR T 530.81 GERD 03/31/2012 DOUGLAS LEAL MD 527.5 Calculus, Anuja Gland/duct 03/31/2012 DOUGLAS LEAL MD 530.8 1 GERD 03/31/2012 AREN BAZAN LCPC B 52 7.5 Calculus, Anuja Gland/duct 03/31/2012 AREN BAZAN LCPC B 530.81 GERD 03/31/2012 RANJAN FRAGOSO, NENO S 527.5 Calculus, Anuja Gland/duct 03/31/2012 RANJAN FRAGOSO, NENO S 530.81 GERD 03/31/2012 BRENDA PHD, KAREN Quinn 527.5 Calculus, Anuja Gland/duct 03/31/2012 BRENDA PHD, KAREN Quinn 530.81 GERD 03/31/2012 BRENDA PHD, KAREN Quinn 527.5 Calculus, Anuja Gland/duct 03/31/2012 BRENDA PHD, KAREN Quinn 530.81 GERD 03/31/2012 RANJAN MURILLON, NENO S 527.5 Calculus, Anuja Gland/duct 03/31/2012 RANJAN MURILLON, NENO S 530.81 GERD 03/31/2012 RANJAN MURILLON, NENO S 527.5 Calculus, Anuja Gland/duct 03/31/2012 RANJAN MURILLON, NENO S 530.81 GERD 03/31/2012 MALIKA GUILLEN NEW ACCOUNTS REPRESENTATIVE, ROBERTO N 527.5 Calculus, Anuja Gland/duct 03/31/2012 MALIKA GUILLEN NEW ACCOUNTS REPRESENTATIVE, ROBERTO N 530.81 GERD 03/31/2012 RANJAN NEW ACCOUNTS REPRESENTATIVE, NENO S 527.5 Calculus, Anuja Gland/duct 03/31/2012 RANJAN MURILLON, NENO S 530.81 GERD 03/31/2012 BRENDA PHD, KAREN Quinn 527.5 Calculus, Anuja Gland/duct 03/31/2012 BRENDA PHD, KAREN Quinn 530.81 GERD 03/31/2012 MARIAN NEW ACCOUNTS REPRESENTATIVE, PRIETO R 527.5 Calculus, Anuja Gland/duct 03/31/2012 MARIAN NEW ACCOUNTS REPRESENTATIVE, PRIETO R 530.81 GERD 03/31/2012 MEL JOYCE, DOUGLAS 527.5 Calculus, Anuja Gland/duct 03/31/2012 MEL JOYCE, DOUGLAS 530.8 1 GERD 03/31/2012 BRENDA PHD, KAREN Quinn 527.5 Calculus, Anuja Gland/duct 03/31/2012 BRENDA PABLO, KAREN Quinn 530.81 GERD 03/31/2012 DIONNA NEW ACCOUNTS REPRESENTATIVE, LAURIE 527 .5 Calculus, Anuja Gland/duct 03/31/2012 DIONNA NEW ACCOUNTS REPRESENTATIVE, LAURIE 530 .81 GERD 03/31/2012 RANJAN FRAGOSO, NENO S 527.5 Calculus, Anuja Gland/duct 03/31/2012 RANJAN FRAGOSO, NENO S 530.81 GERD 03/31/2012 DIONNA NEW ACCOUNTS REPRESENTATIVE, LAURIE 527 .5 Calculus, Anuja Gland/duct 03/31/2012 DIONNA NEW ACCOUNTS REPRESENTATIVE, LAURIE 530 .81 GERD 03/31/2012 DIONNA NEW ACCOUNTS REPRESENTATIVE, LAURIE 527 .5 Calculus, Anuja Gland/duct 03/31/2012 DIONNA NEW ACCOUNTS REPRESENTATIVE, LAURIE 530 .81 GERD 03/31/2012 DIONNA NEW ACCOUNTS REPRESENTATIVE, LAURIE 527 .5 Calculus, Anuja Gland/duct 03/31/2012 DIONNA NEW ACCOUNTS REPRESENTATIVE, LAURIE 530 .81 GERD 03/31/2012 OMAR ADORNO APRN 52 7.5 Calculus, Anuja Gland/duct 03/31/2012 OMAR ADORNO APRN 530.81 GERD 03/31/2012 DIONNA NEW ACCOUNTS REPRESENTATIVE, LAURIE 527 .5 Calculus, Anuja Gland/duct 03/31/2012 DIONNA NEW ACCOUNTS REPRESENTATIVE, LAURIE 530 .81 GERD 03/31/2012 WHITE DDS, KAITLIN J 52 7.5 Calculus, Anuja Gland/duct 03/31/2012 WHITE DDS, KAITLIN J 530.81 GERD 03/31/2012 ESPINOZA DDS, JULI 52 7.5 Calculus, Anuja Gland/duct 03/31/2012 ESPINOZA DDS, JULI 530.81 GERD 03/31/2012 ESPINOZA DDS, JULI 52 7.5 Calculus, Anuja Gland/duct 03/31/2012 ESPINOZA DDS, JULI 530.81 GERD 03/31/2012 DIONNA NEW ACCOUNTS REPRESENTATIVE, LAURIE 527 .5 Calculus, Anuja Gland/duct 03/31/2012 DIONNA NEW ACCOUNTS REPRESENTATIVE, LAURIE 530 .81 GERD 03/31/2012 BEAR YOUNG DO K 527.5 Calculus, Anuja Gland/duct 03/31/2012 KENDY YOUNG DOA K 530.81 GERD 03/31/2012 MARIAN FRAGOSO, PRIETO R 527.5 Calculus, Anuja Gland/duct 03/31/2012 MARIAN NEW ACCOUNTS REPRESENTATIVE, PRIETO R 530.81 GERD 03/31/2012 DIONNA NEW ACCOUNTS REPRESENTATIVE, LAURIE 527 .5 Calculus, Anuja Gland/duct 03/31/2012 DIONNA NEW ACCOUNTS REPRESENTATIVE, LAURIE 530 .81 GERD 03/31/2012 MARIAN NEW ACCOUNTS REPRESENTATIVE, PRIETO R 527.5 Calculus, Anuja Gland/duct 03/31/2012 MARIAN NEW ACCOUNTS REPRESENTATIVE, PRIETO R 530.81 GERD 03/31/2012 MARIAN NEW ACCOUNTS REPRESENTATIVE, PRIETO R 527.5 Calculus, Anuja Gland/duct 03/31/2012 MARIAN NEW ACCOUNTS REPRESENTATIVE, PRIETO R 530.81 GERD 03/31/2012 DOUGLAS LEAL MD 527.5 Calculus, Anuja Gland/duct 03/31/2012 DOUGLAS LEAL MD 530.8 1 GERD 03/31/2012 BEAR YOUNG DO K 527.5 Calculus, Anuja Gland/duct 03/31/2012 KENDY YOUNG DOA K 530.81 GERD 04/11/2012 KENDY YOUNG DOA K 719.47 FOOT PAIN 04/11/2012 KENDY YOUNG DOA K 917.6 SUPERFICIAL FOREIGN BODY (SPLINTER) OF [...] MAJOR OPEN WOUND AND WITHOUT INFECTION 04/11/2012 YOUNG DO, BEAR K 719.47 FOOT PAIN 04/11/2012 YOUNG DO, BEAR K 917.6 SUPERFICIAL FOREIGN BODY (SPLINTER) OF FOOT AND TOE(S) WITHOUT MAJOR OPEN WOUND AND WITHOUT INFECTION 04/11/2012 JOSE NEW ACCOUNTS REPRESENTATIVE, PAU R 719.47 FOOT PAIN 04/11/2012 JOSE NEW ACCOUNTS REPRESENTATIVE, PAU R 917.6 SUPERFICIAL FOREIGN BODY (SPLINTER) [...] And Without Infection 04/11/2012 DOUGLAS LEAL MD 71Montse.4 7 Foot Pain 04/11/2012 DOUGLAS LEAL MD 917.6 Superficial Foreign Body (splinter) Of Foot And Toe(s) Without Major Open Wound And Without Infection 04/11/2012 OMAR ADORNO APRN T 719.47 Foot Pain 04/11/2012 OMAR ADORNO APRN T 91 7.6 Superficial Foreign Body (splinter) Of Foot And Toe(s) Without Major Open Wound And Without Infection 04/11/2012 NENO WOODRUFF APRN S 719.47 Foot Pain 04/11/2012 NENO WOODRUFF APRN S 917.6 Superficial Foreign Body (splinter) Of F oot And Toe(s) Without Major Open Wound And Without Infection 04/11/2012 OMAR ADORNO APRN T 719.47 Foot Pain 04/11/2012 OMAR ADORNO APRN T 91 7.6 Superficial Foreign Body (splinter) Of Foot And Toe(s) Without Major Open Wound And Without Infection 04/11/2012 DOUGLAS LEAL MD 719.4 7 Foot Pain 04/11/2012 DOUGLAS LEAL MD 917.6 Superficial Foreign Body (splinter) Of Foot And Toe(s) Without Major Open Wound And Without Infection 04/11/2012 BENI LYNCH, AREN B 719.47 Foot Pain 04/11/2012 BENI STEEL ENGRAVER, AREN B 91 7.6 Superficial Foreign Body (splinter) Of Foot And Toe(s) Without Major Open Wound And Without Infection 04/11/2012 RANJAN FRAGOSO, NENO S 719.47 Foot Pain 04/11/2012 RANJAN MURILLON, NENO S 917.6 Superficial Foreign Body (splinter) [...] APRN, ROBERTO N 719.47 Foot Pain 04/11/2012 MALIKA GUILLEN APRN, ROBERTO N 917.6 Superficial Foreign Body (splinter) Of F oot And Toe(s) Without Major Open Wound And Without Infection 04/11/2012 RANJAN FRAGOSO, NENO S 719.47 Foot Pain 04/11/2012 RANJAN MURILLON, NENO S 917.6 Superficial Foreign Body (splinter) Of F oot And Toe(s) Without Major Open Wound And Without Infection 04/11/2012 KAREN GUTIERREZ PHD 71.47 Foot Pain 04/11/2012 KAREN GUTIERREZ PHD 917.6 Superficial Foreign Body (splinter) Of F oot And Toe(s) Without Major Open Wound And Without Infection 04/11/2012 MARIAN FRAGOSO, PRIETO R 719.47 Foot Pain 04/11/2012 ENOCH FONSECA [...] Open Wound And Without Infection 04/11/2012 DIONNA NEW ACCOUNTS REPRESENTATIVE, LAUIRE 719 .47 Foot Pain 04/11/2012 DIONNA FRAGOSO, LAURIE 917 .6 Superficial Foreign Body (splinter) Of Foot And Toe(s) Without Major Open Wound And Without Infection 04/11/2012 RANJAN FRAGOSO NENO S 719.47 Foot Pain 04/11/2012 NENO WOODRUFF APRN S 917.6 Superficial Foreign Body (splinter) Of F oot And Toe(s) Without Major Open Wound And Without Infection 04/11/2012 DIONNA NEW ACCOUNTS REPRESENTATIVE, LAURIE 719 .47 Foot Pain 04/11/2012 DIONNA NEW ACCOUNTS REPRESENTATIVE, LAURIE 917 .6 Superficial Foreign Body (splinter) Of Foot And Toe(s) Without Major Open Wound And Without Infection 04/11/2012 DIONNA NEW ACCOUNTS REPRESENTATIVE, LAURIE 719 .47 Foot Pain 04/11/2012 DIONNA NEW ACCOUNTS REPRESENTATIVE, LAURIE 917 .6 Superficial Foreign Body (splinter) Of Foot And Toe(s) Without Major Open Wound And Without Infection 04/11/2012 DIONNA NEW ACCOUNTS REPRESENTATIVE, LAURIE 719 .47 Foot Pain 04/11/2012 DIONNA NEW ACCOUNTS REPRESENTATIVE, LAURIE 917 .6 Superficial Foreign Body (splinter) [...] Major Open Wound And Without Infection 04/11/2012 ROSHAN GILLESPIESKAITLIN 719.47 Foot Pain 04/11/2012 WHITE JOSE MIGUELSKAITLIN 91 7.6 Superficial Foreign Body (splinter) Of Foot And Toe(s) Without Major Open Wound And Without Infection 04/11/2012 JULI ESPINOZA DDS 719.47 Foot Pain 04/11/2012 JULI ESPINOZA DDS 91 7.6 Superficial Foreign Body (splinter) Of Foot And Toe(s) Without Major Open Wound And Without Infection 04/11/2012 JULI ESPINOZA DDS 719.47 Foot Pain 04/11/2012 JULI ESPINOZA DDS 91 7.6 Superficial Foreign Body (splinter) Of [...] FONSECA APRNINA R 719.47 Foot Pain 04/11/2012 MARIAN FRAGOSO, PRIETO R 917.6 Superficial Foreign Body (splinter) Of F oot And Toe(s) Without Major Open Wound And Without Infection 04/11/2012 DIONNA FRAGOSO LAURIE 719 .47 Foot Pain 04/11/2012 DIONNA FRAGOSO LAURIE 917 .6 Superficial Foreign Body (splinter) Of Foot And Toe(s) Without Major Open Wound And Without Infection 04/11/2012 ENOCH FONSECA APRNINA R 719.47 Foot Pain 04/11/2012 PRIETO FONSECA [...] Major Open Wound And Without Infection 04/11/2012 BEAR YOUNG DO 719.47 Foot Pain 04/11/2012 BEAR YOUNG DO 917.6 Superficial Foreign Body (splinter) Of Foot And Toe(s) Without Major Open Wound And Without Infection 05/06/2012 V70.5 PREEMPLOYMENT/PRESCHOOL EXAM 05/06/2012 BEAR YOUNG DO V70.5 PREEMPLOYMENT/PRESCHOOL EXAM 05/06/2012 PAU GARCIA APRN [...] DOUGLAS LEAL MD V70.5 Preemployment/preschool Exam 05/06/2012 TILA NEW ACCOUNTS REPRESENTATIVE, OMAR T V7 0.5 Preemployment/preschool Exam 05/06/2012 RANJAN FRAGOSO, NENO S V70.5 Preemployment/preschool Exam 05/06/2012 OMAR ADORNO APRN [...] V70.5 Preemployment/preschool Exam 05/06/2012 ROBERTO YATES APRN N V70.5 Preemployment/preschool Exam 05/06/2012 RANJAN FRAGOSO, NENO S V70.5 Preemployment/preschool Exam 05/06/2012 BRENDA PHD, KAREN Quinn V70.5 Preemployment/preschool Exam 05/06/2012 PRIETO FONSECA APRN R V70.5 Preemployment/preschool Exam 05/06/2012 DOUGLAS LEAL MD V70.5 Preemployment/preschool Exam 05/06/2012 BRENDA PHD, KAREN Quinn V70.5 Preemployment/preschool Exam 05/06/2012 DIONNA FRAGOSO, LAURIE V70 .5 Preemployment/preschool Exam 05/06/2012 KATIE WOODRUFF APRNNDA S V70.5 Preemployment/preschool Exam 05/06/2012 DIONNA NEW ACCOUNTS REPRESENTATIVE, LAURIE V70 .5 Preemployment/preschool Exam 05/06/2012 DIONNA FRAGOSO, LAURIE V70 .5 Preemployment/preschool Exam 05/06/2012 DIONNA FRAGOSO LAURIE V70 .5 Preemployment/preschool Exam 05/06/2012 OMAR ADORNO APRN V7 0.5 Preemployment/preschool Exam 05/06/2012 LAURIE VILLAREAL APRN V70 .5 Preemployment/preschool Exam 05/06/2012 WHITE DDS, KAITLIN J V7 0.5 Preemployment/preschool Exam 05/06/2012 ESPINOZA DDS, JULI V7 0.5 Preemployment/preschool Exam 05/06/2012 ESPINOZA DDS, JULI V7 0.5 Preemployment/preschool Exam 05/06/2012 LAURIE VILLAREAL APRN V70 .5 Preemployment/preschool Exam 05/06/2012 BAER YOUNG DO V70.5 Preemployment/preschool Exam 05/06/2012 PRIETO FONSECA APRN V70.5 Preemployment/preschool Exam 05/06/2012 LAURIE VILLAREAL APRN [...] APRN V7 4.1 Tb Screening 05/12/2012 RANJAN FRAGOSO, NENO S V74.1 Tb Screening 05/12/2012 OMAR ADORNO APRN V7 4.1 Tb Screening 05/12/2012 DOUGLAS LEAL MD V74.1 Tb Screening 05/12/2012 BENI LYNCH, AREN Merida V7 4.1 Tb Screening 05/12/2012 RANJAN FRAGOSO, NENO S V74.1 Tb Screening 05/12/2012 BRENDA PHD, KAREN Quinn V74.1 Tb Screening 05/12/2012 BRENDA PHD, KAREN Quinn V74.1 Tb Screening 05/12/2012 RANJAN FRAGOSO, NENO S V74.1 Tb Screening 05/12/2012 RANJAN FRAGOSO, NENO S V74.1 Tb Screening 05/12/2012 MALIKA GUILLEN APRN, ROBERTO N V74.1 Tb Screening 05/12/2012 RANJAN FRAGOSO, NENO S V74.1 Tb Screening 05/12/2012 BRENDA PHD, KAREN Quinn V74.1 Tb Screening 05/12/2012 MARIAN FRAGOSO PRIETO R V74.1 Tb Screening 05/12/2012 DOUGLAS LEAL MD V74.1 Tb Screening 05/12/2012 BRENDA PHD, KAREN Quinn V74.1 Tb Screening 05/12/2012 DIONNA NEW ACCOUNTS REPRESENTATIVE, LAURIE V74 .1 Tb Screening 05/12/2012 RANJAN FRAGOSO, NENO S V74.1 Tb Screening 05/12/2012 DIONNA NEW ACCOUNTS REPRESENTATIVE, LAURIE V74 .1 Tb Screening 05/12/2012 DIONNA NEW ACCOUNTS REPRESENTATIVE, LAURIE V74 .1 Tb Screening 05/12/2012 DIONNA FRAGOSO, LAURIE V74 .1 Tb Screening 05/12/2012 OMAR ADORNO APRN V7 4.1 Tb Screening 05/12/2012 DIONNA NEW ACCOUNTS REPRESENTATIVE, LAURIE V74 .1 Tb Screening 05/12/2012 ROSHAN DDS, KAITLIN Cortez V7 4.1 Tb Screening 05/12/2012 ESPINOZA DDS, JULI V7 4.1 Tb Screening 05/12/2012 ESPINOZA DDSJULI V7 4.1 Tb Screening 05/12/2012 DIONNA NEW ACCOUNTS REPRESENTATIVE, LAURIE V74 .1 Tb Screening 05/12/2012 YOUNG BEAR COFFMAN K V74.1 Tb Screening 05/12/2012 MARIAN NEW ACCOUNTS REPRESENTATIVE, PRIETO R V74.1 Tb Screening 05/12/2012 DIONNA NEW ACCOUNTS REPRESENTATIVE, LAURIE V74 .1 Tb Screening 05/12/2012 MARIAN NEW ACCOUNTS REPRESENTATIVE, PRIETO R V74.1 Tb Screening 05/12/2012 MARIAN NEW ACCOUNTS REPRESENTATIVE, PRIETO R V74.1 Tb Screening 05/12/2012 DOUGLAS LEAL MD V74.1 Tb Screening 05/12/2012 YOUNG DO, BEAR K V74.1 Tb Screening 07/04/2012 300.00 ANX IETY [...] 07/04/2012 300.00 ANX IETY STATE UNSPECIFIED 07/04/2012 NENO WOODRUFF APRN 300.00 ANXIETY STATE UNSPECIFIED 07/04/2012 DOUGLAS LEAL MD 300.0 0 ANXIETY STATE UNSPECIFIED 07/04/2012 OMAR ADORNO APRN 300.00 ANXIETY STATE UNSPECIFIED 07/04/2012 NENO WOODRUFF APRN 300.00 ANXIETY STATE UNSPECIFIED 07/04/2012 OMAR ADORNO APRN 300.00 ANXIETY STATE UNSPECIFIED 07/04/2012 DOUGLAS LEAL MD 300.0 0 ANXIETY STATE UNSPECIFIED 07/04/2012 BENI LYNCH, AREN [place] 300.00 ANXIETY STATE UNSPECIFIED 07/04/2012 NENO WOODRUFF APRN S 300.00 ANXIETY STATE UNSPECIFIED 07/04/2012 BRENDA PHD, KAREN Quinn 300.00 ANXIETY STATE UNSPECIFIED 07/04/2012 BRENDA PABLO, KAREN Quinn 300.00 ANXIETY STATE UNSPECIFIED 07/04/2012 RANJAN NEW ACCOUNTS REPRESENTATIVE, NENO S 300.00 ANXIETY STATE UNSPECIFIED 07/04/2012 RANJAN FRAGOSO NENO S 300.00 ANXIETY STATE UNSPECIFIED 07/04/2012 MALIKA GUILLEN FOUZIAROBERTO Tate 300.00 ANXIETY STATE UNSPECIFIED 07/04/2012 KATIE WOODRUFF APRNNDA S 300.00 ANXIETY STATE UNSPECIFIED 07/04/2012 BRENDA PHD, KAREN Quinn 300.00 ANXIETY STATE UNSPECIFIED 07/04/2012 MARIAN FRAGOSO, PRIETO R 300.00 ANXIETY STATE UNSPECIFIED 07/04/2012 DOUGLAS LEAL MD 300.0 0 ANXIETY STATE UNSPECIFIED 07/04/2012 BRENDA PABLO, KAREN Quinn 300.00 ANXIETY STATE UNSPECIFIED 07/04/2012 DIONNA NEW ACCOUNTS REPRESENTATIVE, LAURIE 300 .00 ANXIETY STATE UNSPECIFIED 07/04/2012 YUKI WOODRUFF APRNA S 300.00 ANXIETY STATE UNSPECIFIED 07/04/2012 DIONNA NEW ACCOUNTS REPRESENTATIVE, LAURIE 300 .00 ANXIETY STATE UNSPECIFIED 07/04/2012 DIONNA FRAGOSO LAURIE 300 .00 ANXIETY STATE UNSPECIFIED 07/04/2012 DIONNA FRAGOSO LAURIE 300 .00 ANXIETY STATE UNSPECIFIED 07/04/2012 OMAR ADORNO APRN 300.00 ANXIETY STATE UNSPECIFIED 07/04/2012 DIONNA NEW ACCOUNTS REPRESENTATIVE, LAURIE 300 .00 ANXIETY STATE UNSPECIFIED 07/04/2012 ROSHAN GILLESPIES, KAITLIN J 300.00 ANXIETY STATE UNSPECIFIED 07/04/2012 OLGA DDSNAKULW 300.00 ANXIETY STATE UNSPECIFIED 07/04/2012 ESPINOZA DDS, JULI 300.00 ANXIETY STATE UNSPECIFIED 07/04/2012 DIONNA NEW ACCOUNTS REPRESENTATIVE, LAURIE 300 .00 ANXIETY STATE UNSPECIFIED 07/04/2012 YOUNG DO, BEAR K 300.00 ANXIETY STATE UNSPECIFIED 07/04/2012 MARIAN NEW ACCOUNTS REPRESENTATIVE, PRIEOT R 300.00 ANXIETY STATE UNSPECIFIED 07/04/2012 DIONNA NEW ACCOUNTS REPRESENTATIVE, LAURIE 300 .00 ANXIETY STATE UNSPECIFIED 07/04/2012 MARIAN NEW ACCOUNTS REPRESENTATIVE, PRIETO R 300.00 ANXIETY STATE UNSPECIFIED 07/04/2012 MARIAN NEW ACCOUNTS REPRESENTATIVE, PRIETO R 300.00 ANXIETY STATE UNSPECIFIED 07/04/2012 DOUGLAS LEAL MD 300.0 0 ANXIETY STATE UNSPECIFIED 07/04/2012 YOUNG DO, BEAR K 300.00 ANXIETY STATE UNSPECIFIED 07/17/2012 Ot 923.3 CONT USION OF FINGER 07/17/2012 Ot 959.5 FING ER INJURY NOS 07/17/2012 Ot E000.8 OT ER EXTERNAL CAUSE STATUS 07/17/2012 Ot E029.2 [...] 0 ENTHESOPATHY OF KNEE UNSPECIFIED 08/21/2012 BENI STEEL ENGRAVER, AREN [place] 726.60 ENTHESOPATHY OF KNEE UNSPECIFIED 08/21/2012 NENO WOODRUFF APRN S 726.60 ENTHESOPATHY OF KNEE UNSPECIFIED 08/21/2012 BRENDA PHD, KAREN Quinn 726.60 ENTHESOPATHY OF KNEE UNSPECIFIED 08/21/2012 BRENDA PABLO, KAREN Quinn 726.60 ENTHESOPATHY OF KNEE UNSPECIFIED 08/21/2012 NENO WOODRUFF APRN S 726.60 ENTHESOPATHY OF KNEE UNSPECIFIED 08/21/2012 NENO WOODRUFF APRN S 726.60 ENTHESOPATHY OF KNEE UNSPECIFIED 08/21/2012 MALIKA GUILLEN APRN, ROBERTO Ybarra 726.60 ENTHESOPATHY OF KNEE UNSPECIFIED 08/21/2012 RANJAN FRAGOSO, NENO S 726.60 ENTHESOPATHY OF KNEE UNSPECIFIED 08/21/2012 BRENDA PHD, KAREN Quinn 726.60 ENTHESOPATHY OF KNEE UNSPECIFIED 08/21/2012 MARIAN FRAGOSO, PRIETO R 726.60 ENTHESOPATHY OF KNEE UNSPECIFIED 08/21/2012 MEL JOYCE, DOUGLAS 726.6 0 ENTHESOPATHY OF KNEE UNSPECIFIED 08/21/2012 BRENDA PHD, KAREN Quinn 726.60 ENTHESOPATHY OF KNEE UNSPECIFIED 08/21/2012 DIONNA NEW ACCOUNTS REPRESENTATIVE, LAURIE 726 .60 ENTHESOPATHY OF KNEE UNSPECIFIED 08/21/2012 RANJAN FRAGOSO, NENO S 726.60 ENTHESOPATHY OF KNEE UNSPECIFIED 08/21/2012 DIONNA NEW ACCOUNTS REPRESENTATIVE, LAURIE 726 .60 ENTHESOPATHY OF KNEE UNSPECIFIED 08/21/2012 DIONNA NEW ACCOUNTS REPRESENTATIVE, LAURIE 726 .60 ENTHESOPATHY OF KNEE UNSPECIFIED 08/21/2012 DIONNA NEW ACCOUNTS REPRESENTATIVE, LAURIE 726 .60 ENTHESOPATHY OF KNEE UNSPECIFIED 08/21/2012 OMAR ADORNO APRN 726.60 ENTHESOPATHY OF KNEE UNSPECIFIED 08/21/2012 DIONNA NEW ACCOUNTS REPRESENTATIVE, LAURIE 726 .60 ENTHESOPATHY OF KNEE UNSPECIFIED 08/21/2012 ROSHAN LUCERO, KAITLIN Cortez 726.60 ENTHESOPATHY OF KNEE UNSPECIFIED 08/21/2012 JULI ESPINOZA DDS 726.60 ENTHESOPATHY OF KNEE UNSPECIFIED 08/21/2012 JULI ESPINOZA DDS 726.60 ENTHESOPATHY OF KNEE UNSPECIFIED 08/21/2012 DIONNA NEW ACCOUNTS REPRESENTATIVE, LAURIE 726 .60 ENTHESOPATHY OF KNEE UNSPECIFIED 08/21/2012 BEAR YOUNG DO 726.60 ENTHESOPATHY OF KNEE UNSPECIFIED 08/21/2012 MARIAN NEW ACCOUNTS REPRESENTATIVE, PRIETO R 726.60 ENTHESOPATHY OF KNEE UNSPECIFIED 08/21/2012 DIONNA NEW ACCOUNTS REPRESENTATIVE, LAURIE 726 .60 ENTHESOPATHY OF KNEE UNSPECIFIED 08/21/2012 MARIAN FRAGOSO, PRIETO R 726.60 ENTHESOPATHY OF KNEE UNSPECIFIED 08/21/2012 MARIAN MURILLON, PRIETO R 726.60 ENTHESOPATHY OF KNEE UNSPECIFIED 08/21/2012 MEL JOYCE, DOUGLAS 726.6 0 ENTHESOPATHY OF KNEE UNSPECIFIED 08/21/2012 YOUNG BEAR COFFMAN Masoud 726.60 ENTHESOPATHY OF KNEE UNSPECIFIED 10/12/2012 682.0 CELL ULITIS, FACE 10/12/2012 682.0 CELL ULITIS, FACE 10/12/2012 682.0 CELL ULITIS, FACE 10/12/2012 682.0 CELL ULITIS, FACE 10/12/2012 682.0 CELL ULITIS, FACE 10/12/2012 RANJAN FRAGOSO, NENO S 682.0 CELLULITIS, FACE 10/12/2012 DOUGLAS LEAL MD 682.0 CELLULITIS, FACE 10/12/2012 OMAR ADORNO APRN 68 2.0 CELLULITIS, FACE 10/12/2012 RANJAN FRAGOSO, NENO S 682.0 CELLULITIS, FACE 10/12/2012 OMAR ADORNO APRN 68 2.0 CELLULITIS, FACE 10/12/2012 DOUGLAS LEAL MD 682.0 CELLULITIS, FACE 10/12/2012 BENI STEEL ENGRAVER, AREN B 68 2.0 CELLULITIS, FACE 10/12/2012 RANJAN FRAGOSO, NENO S 682.0 CELLULITIS, FACE 10/12/2012 BRENDA PABLO, KAREN Quinn 682.0 CELLULITIS, FACE 10/12/2012 BRENDA PABLO, KAREN Quinn 682.0 CELLULITIS, FACE 10/12/2012 RANJAN MURILLON, NENO S 682.0 CELLULITIS, FACE 10/12/2012 RANJAN MURILLON, NENO S 682.0 CELLULITIS, FACE 10/12/2012 MALIKA GUILLEN APRN, ROBERTO N 682.0 CELLULITIS, FACE 10/12/2012 RANJAN FRAGOSO, NENO S 682.0 CELLULITIS, FACE 10/12/2012 BRENDA PABLO, KAREN Quinn 682.0 CELLULITIS, FACE 10/12/2012 MARIAN FRAGOSO, PRIETO R 682.0 CELLULITIS, FACE 10/12/2012 DOUGLAS LEAL MD 682.0 CELLULITIS, FACE 10/12/2012 BRENDA PABLO, KAREN Quinn 682.0 CELLULITIS, FACE 10/12/2012 DIONNA NEW ACCOUNTS REPRESENTATIVE, LAURIE 682 .0 CELLULITIS, FACE 10/12/2012 RANJAN FRAGOSO, NENO Trejo 682.0 CELLULITIS, FACE 10/12/2012 DIONNA NEW ACCOUNTS REPRESENTATIVE, LAURIE 682 .0 CELLULITIS, FACE 10/12/2012 DIONNA NEW ACCOUNTS REPRESENTATIVE, LAURIE 682 .0 CELLULITIS, FACE 10/12/2012 DIONNA NEW ACCOUNTS REPRESENTATIVE, LAURIE 682 .0 CELLULITIS, FACE 10/12/2012 TILA MURILLON, OMAR Mcgowan 68 2.0 CELLULITIS, FACE 10/12/2012 DIONNA NEW ACCOUNTS REPRESENTATIVE, LAURIE 682 .0 CELLULITIS, FACE 10/12/2012 ROSHAN DDS, KAITLIN Cortez 68 2.0 CELLULITIS, FACE 10/12/2012 ESPINOZA DDS, JULI 68 2.0 CELLULITIS, FACE 10/12/2012 ESPINOZA DDS, JULI 68 2.0 CELLULITIS, FACE 10/12/2012 DIONNA NEW ACCOUNTS REPRESENTATIVE, LAURIE 682 .0 CELLULITIS, FACE 10/12/2012 BEAR YOUNG DO 682.0 CELLULITIS, FACE 10/12/2012 MARIAN NEW ACCOUNTS REPRESENTATIVE, PRIETO R 682.0 CELLULITIS, FACE 10/12/2012 DIONNA NEW ACCOUNTS REPRESENTATIVE, LAURIE 682 .0 CELLULITIS, FACE 10/12/2012 MARIAN NEW ACCOUNTS REPRESENTATIVE, PRIETO R 682.0 CELLULITIS, FACE 10/12/2012 MARIAN NEW ACCOUNTS REPRESENTATIVE, PRIETO R 682.0 CELLULITIS, FACE 10/12/2012 MEL JOYCE, DOUGLAS 682.0 CELLULITIS, FACE 10/12/2012 BEAR YOUNG DO K 682.0 CELLULITIS, FACE 10/25/2012 MARTHA CHASE DO [...] WOUND OF FINGERS WITHOUT COMPLICATION 11/03/2012 RANJAN NEW ACCOUNTS REPRESENTATIVE, NENO S 883.0 OPEN WOUND OF FINGERS WITHOUT COMPLICATION 11/03/2012 DOUGLAS LEAL MD 883.0 OPEN WOUND OF FINGERS WITHOUT COMPLICATION 11/03/2012 OMAR ADORNO APRN 88 3.0 OPEN WOUND OF FINGERS WITHOUT COMPLICATION 11/03/2012 RANJAN MURILLON, NENO S 883.0 OPEN WOUND OF FINGERS WITHOUT COMPLICATION 11/03/2012 OMAR ADORNO APRN 88 3.0 OPEN WOUND OF FINGERS WITHOUT COMPLICATION 11/03/2012 DOUGLAS LEAL MD 883.0 OPEN WOUND OF FINGERS WITHOUT COMPLICATION 11/03/2012 BENI LYNCH, AREN Merida 88 3.0 OPEN WOUND OF FINGERS WITHOUT COMPLICATION 11/03/2012 RANJAN MURILLON, NENO S 883.0 OPEN WOUND OF FINGERS WITHOUT COMPLICATION 11/03/2012 BRENDA PABLO, KAREN Quinn 883.0 OPEN WOUND OF FINGERS WITHOUT COMPLICATION 11/03/2012 BRENDA PABLO, KAREN Quinn 883.0 OPEN WOUND OF FINGERS WITHOUT COMPLICATION 11/03/2012 RAJNAN NEW ACCOUNTS REPRESENTATIVE, NENO S 883.0 OPEN WOUND OF FINGERS WITHOUT COMPLICATION 11/03/2012 RANJAN MURILLON, NENO S 883.0 OPEN WOUND OF FINGERS WITHOUT COMPLICATION 11/03/2012 MALIKA GUILLEN NEW ACCOUNTS REPRESENTATIVE, ROBERTO N 883.0 OPEN WOUND OF FINGERS WITHOUT COMPLICATION 11/03/2012 RANJAN MURILLON, NENO S 883.0 OPEN WOUND OF FINGERS WITHOUT COMPLICATION 11/03/2012 BRENDA PABLO, KAREN Quinn 883.0 OPEN WOUND OF FINGERS WITHOUT COMPLICATION 11/03/2012 MARIAN MURILLONPRIETO 883.0 OPEN WOUND OF FINGERS WITHOUT COMPLICATION 11/03/2012 DOUGLAS LEAL MD 883.0 OPEN WOUND OF FINGERS WITHOUT COMPLICATION 11/03/2012 BRENDA PABLO, KAREN Quinn 883.0 OPEN WOUND OF FINGERS WITHOUT COMPLICATION 11/03/2012 DIONNA NEW ACCOUNTS REPRESENTATIVE, LAURIE 883 .0 OPEN WOUND OF FINGERS WITHOUT COMPLICATION 11/03/2012 RANJAN NEW ACCOUNTS REPRESENTATIVE, NENO S 883.0 OPEN WOUND OF FINGERS WITHOUT COMPLICATION 11/03/2012 DIONNA NEW ACCOUNTS REPRESENTATIVE, LAURIE 883 .0 OPEN WOUND OF FINGERS WITHOUT COMPLICATION 11/03/2012 DIONNA NEW ACCOUNTS REPRESENTATIVE, LAURIE 883 .0 OPEN WOUND OF FINGERS WITHOUT COMPLICATION 11/03/2012 DIONNA NEW ACCOUNTS REPRESENTATIVE, LAURIE 883 .0 OPEN WOUND OF FINGERS WITHOUT COMPLICATION 11/03/2012 TILA NEW ACCOUNTS REPRESENTATIVE, OMAR Mcgowan 88 3.0 OPEN WOUND OF FINGERS WITHOUT COMPLICATION 11/03/2012 DIONNA NEW ACCOUNTS REPRESENTATIVE, LAURIE 883 .0 OPEN WOUND OF FINGERS WITHOUT COMPLICATION 11/03/2012 ROSHAN DDS, KAITLIN Cortez 88 3.0 OPEN WOUND OF FINGERS WITHOUT COMPLICATION 11/03/2012 ESPINOZA DDS, JULI 88 3.0 OPEN WOUND OF FINGERS WITHOUT COMPLICATION 11/03/2012 ESPINOZA DDS, JULI 88 3.0 OPEN WOUND OF FINGERS WITHOUT COMPLICATION 11/03/2012 DIONNA NEW ACCOUNTS REPRESENTATIVE, LAURIE 883 .0 OPEN WOUND OF FINGERS WITHOUT COMPLICATION 11/03/2012 BEAR YOUNG DO K 883.0 OPEN WOUND OF FINGERS WITHOUT COMPLICATION 11/03/2012 MARIAN NEW ACCOUNTS REPRESENTATIVE, PRIETO R 883.0 OPEN WOUND OF FINGERS WITHOUT COMPLICATION 11/03/2012 DIONNA NEW ACCOUNTS REPRESENTATIVE, LAURIE 883 .0 OPEN WOUND OF FINGERS WITHOUT COMPLICATION 11/03/2012 MARIAN NEW ACCOUNTS REPRESENTATIVE, PRIETO R 883.0 OPEN WOUND OF FINGERS WITHOUT COMPLICATION 11/03/2012 MARIAN NEW ACCOUNTS REPRESENTATIVE, PRIETO R 883.0 OPEN WOUND OF FINGERS WITHOUT COMPLICATION 11/03/2012 DOUGLAS LEAL MD 883.0 OPEN WOUND OF FINGERS WITHOUT COMPLICATION 11/03/2012 BEAR YOUNG DO 883.0 OPEN WOUND OF FINGERS WITHOUT COMPLICATION 11/06/2012 ADAN JOYCE, RAN Hughes Ot 530.81 ESOPHAGEAL REFLUX 11/06/2012 ADAN JOYCE, RAN Hughes Ot 535.40 OTH SPECIFIED GASTRITIS,W/O MENTION OF H 11/06/2012 RAN ARELLANO MD Ot 535.60 DUODENITIS, WITHOUT MENTION OF HEMORRHAG [...] FOR CHANGE OR REMOVAL OF NONSU 01/10/2013 NENO WOODRUFF APRN S V15.82 Nicotine abuse 01/10/2013 DOUGLAS LEAL MD V15.8 2 Nicotine abuse 01/10/2013 OMAR ADORNO APRN V15.82 Nicotine abuse 01/10/2013 NENO WOODRUFF APRN S V15.82 Nicotine abuse 01/10/2013 OMAR ADORNO APRN V15.82 Nicotine abuse 01/10/2013 DOUGLAS LEAL MD V15.8 2 Nicotine abuse 01/10/2013 BENI LYNCH, AREN B V15.82 Nicotine abuse 01/10/2013 YUKI WOODRUFF APRNA S V15.82 Nicotine abuse 01/10/2013 BRENDA PHD, KAREN Quinn V15.82 Nicotine abuse 01/10/2013 BRENDA PABLO, KAREN Quinn V15.82 Nicotine abuse 01/10/2013 YUKI WOODRUFF APRNA S V15.82 Nicotine abuse 01/10/2013 YUKI WOODRUFF APRNA S V15.82 Nicotine abuse 01/10/2013 ROBERTO YATES APRN N V15.82 Nicotine abuse 01/10/2013 YUKI WOODRUFF APRNA S V15.82 Nicotine abuse 01/10/2013 BRENDA PHD, KAREN Quinn V15.82 Nicotine abuse 01/10/2013 MARIAN FRAGOSO PRIETO R V15.82 Nicotine abuse 01/10/2013 DOUGLAS LEAL MD V15.8 2 Nicotine abuse 01/10/2013 BRENDA PHD, KAREN Quinn V15.82 Nicotine abuse 01/10/2013 DIONNA NEW ACCOUNTS REPRESENTATIVE, LAURIE V15 .82 Nicotine abuse 01/10/2013 NENO WOODRUFF APRN S V15.82 Nicotine abuse 01/10/2013 DIONNA NEW ACCOUNTS REPRESENTATIVE, LAURIE V15 .82 Nicotine abuse 01/10/2013 DIONNA NEW ACCOUNTS REPRESENTATIVE, LAURIE V15 .82 Nicotine abuse 01/10/2013 DIONNA NEW ACCOUNTS REPRESENTATIVE, LAURIE V15 .82 Nicotine abuse 01/10/2013 OMAR ADORNO APRN T V15.82 Nicotine abuse 01/10/2013 DIONNAMYESHA FRAGOSO, LAURIE V15 .82 Nicotine abuse 01/10/2013 WHITE DDS, KAITLIN J V15.82 Nicotine abuse 01/10/2013 ESPINOZA DDS, JULI V15.82 Nicotine abuse 01/10/2013 ESPINOZA DDS, JULI V15.82 Nicotine abuse 01/10/2013 DIONNA NEW ACCOUNTS REPRESENTATIVE, LAURIE V15 .82 Nicotine abuse 01/10/2013 HANNAH COFFMAN, BEAR K V15.82 Nicotine abuse 01/10/2013 MARIAN FRAGOSO, PRIETO R V15.82 Nicotine abuse 01/10/2013 DIONNA FRAGOSO, LAURIE V15 .82 Nicotine abuse 01/10/2013 MARIAN NEW ACCOUNTS REPRESENTATIVE, PRIETO R V15.82 Nicotine abuse 01/10/2013 MARIAN NEW ACCOUNTS REPRESENTATIVE, PRIETO R V15.82 Nicotine abuse 01/10/2013 DOUGLAS LEAL MD V15.8 2 Nicotine abuse 01/10/2013 HANNAH COFFMAN, BEAR K V15.82 Nicotine abuse 03/18/2013 SOMMER [...] EFFECT OF BURN OF OTHER EXTREMITIES 03/20/2013 TILA NEW ACCOUNTS REPRESENTATIVE, OMAR T 90 6.7 LATE EFFECT OF BURN OF OTHER EXTREMITIES 03/20/2013 DOUGLAS LEAL MD 906.7 LATE EFFECT OF BURN OF OTHER EXTREMITIES 03/20/2013 BENI LYNCH, AREN Merida 90 6.7 LATE EFFECT OF BURN OF OTHER EXTREMITIES 03/20/2013 RANJAN NEW ACCOUNTS REPRESENTATIVE, NENO S 906.7 LATE EFFECT OF BURN OF OTHER EXTREMITIES 03/20/2013 BRENDA PABLO, KAREN Quinn 906.7 LATE EFFECT OF BURN OF OTHER EXTREMITIES 03/20/2013 BRENDA PABLO, KAREN Quinn 906.7 LATE EFFECT OF BURN OF OTHER EXTREMITIES 03/20/2013 RANJAN NEW ACCOUNTS REPRESENTATIVE, NENO S 906.7 LATE EFFECT OF BURN OF OTHER EXTREMITIES 03/20/2013 RANJAN NEW ACCOUNTS REPRESENTATIVE, NENO S 906.7 LATE EFFECT OF BURN OF OTHER EXTREMITIES 03/20/2013 MALIKA GUILLEN NEW ACCOUNTS REPRESENTATIVE, ROBERTO N 906.7 LATE EFFECT OF BURN OF OTHER EXTREMITIES 03/20/2013 RANJAN NEW ACCOUNTS REPRESENTATIVE, NENO S 906.7 LATE EFFECT OF BURN OF OTHER EXTREMITIES 03/20/2013 BRENDA PABLO, KAREN Quinn 906.7 LATE EFFECT OF BURN OF OTHER EXTREMITIES 03/20/2013 MARIAN NEW ACCOUNTS REPRESENTATIVE, PRIETO R 906.7 LATE EFFECT OF BURN OF OTHER EXTREMITIES 03/20/2013 DOUGLAS LEAL MD 906.7 LATE EFFECT OF BURN OF OTHER EXTREMITIES 03/20/2013 BRENDA PABLO, KAREN Quinn 906.7 LATE EFFECT OF BURN OF OTHER EXTREMITIES 03/20/2013 DIONNA NEW ACCOUNTS REPRESENTATIVE, LAURIE 906 .7 LATE EFFECT OF BURN OF OTHER EXTREMITIES 03/20/2013 RANJAN NEW ACCOUNTS REPRESENTATIVE, NENO S 906.7 LATE EFFECT OF BURN OF OTHER EXTREMITIES 03/20/2013 DIONNA NEW ACCOUNTS REPRESENTATIVE, LAURIE 906 .7 LATE EFFECT OF BURN OF OTHER EXTREMITIES 03/20/2013 DIONNA NEW ACCOUNTS REPRESENTATIVE, LAURIE 906 .7 LATE EFFECT OF BURN OF OTHER EXTREMITIES 03/20/2013 DIONNA NEW ACCOUNTS REPRESENTATIVE, LAURIE 906 .7 LATE EFFECT OF BURN OF OTHER EXTREMITIES 03/20/2013 OMAR ADORNO APRN 90 6.7 LATE EFFECT OF BURN OF OTHER EXTREMITIES 03/20/2013 DIONNA NEW ACCOUNTS REPRESENTATIVE, LAURIE 906 .7 LATE EFFECT OF BURN OF OTHER EXTREMITIES 03/20/2013 ROSHAN LUCERO, KAITLIN Cortez 90 6.7 LATE EFFECT OF BURN OF OTHER EXTREMITIES 03/20/2013 ESPINOZA DDS, JULI 90 6.7 LATE EFFECT OF BURN OF OTHER EXTREMITIES 03/20/2013 ESPINOZA DDS, JULI 90 6.7 LATE EFFECT OF BURN OF OTHER EXTREMITIES 03/20/2013 DIONNA NEW ACCOUNTS REPRESENTATIVE, LAURIE 906 .7 LATE EFFECT OF BURN OF OTHER EXTREMITIES 03/20/2013 YOUNG DO, BEAR K 906.7 LATE EFFECT OF BURN OF OTHER EXTREMITIES 03/20/2013 MARIAN NEW ACCOUNTS REPRESENTATIVE, PRIETO R 906.7 LATE EFFECT OF BURN OF OTHER EXTREMITIES 03/20/2013 DIONNA NEW ACCOUNTS REPRESENTATIVE, LAURIE 906 .7 LATE EFFECT OF BURN OF OTHER EXTREMITIES 03/20/2013 MARIAN NEW ACCOUNTS REPRESENTATIVE, PRIETO R 906.7 LATE EFFECT OF BURN OF OTHER EXTREMITIES 03/20/2013 MARIAN NEW ACCOUNTS REPRESENTATIVE, PRIETO R 906.7 LATE EFFECT OF BURN OF OTHER EXTREMITIES 03/20/2013 DOUGLAS LEAL MD 906.7 LATE EFFECT OF BURN OF OTHER EXTREMITIES 03/20/2013 YOUNG DO, BEAR K 906.7 LATE EFFECT OF BURN OF OTHER EXTREMITIES 03/26/2013 OMAR ADORNO APRN T 943.01 BURN OF UNSPECIFIED DEGREE OF FOREARM 03/26/2013 OMAR ADORNO APRN T E013.1 LAUNDRY 03/26/2013 YUKI WOODRUFF APRNA S [...] AREN BAZAN LCPC B E013.1 LAUNDRY 03/26/2013 NENO WOODRUFF APRN S 943.01 BURN OF UNSPECIFIED DEGREE OF FOREARM 03/26/2013 YUKI WOODRUFF APRNA S E013.1 LAUNDRY 03/26/2013 KAREN GUTIERREZ PHD 943.01 BURN OF UNSPECIFIED DEGREE OF FOREARM 03/26/2013 KAREN GUTIERREZ PHD E013.1 LAUNDRY 03/26/2013 KAREN GUTIERREZ PHD 943.01 BURN OF UNSPECIFIED DEGREE OF FOREARM 03/26/2013 KAREN GUTIERREZ PHD E013.1 LAUNDRY 03/26/2013 RANJAN NEW ACCOUNTS REPRESENTATIVE, NENO S 943.01 BURN OF UNSPECIFIED DEGREE OF FOREARM 03/26/2013 RANJAN NEW ACCOUNTS REPRESENTATIVE, NENO S E013.1 LAUNDRY 03/26/2013 RANJAN NEW ACCOUNTS REPRESENTATIVE, NENO S 943.01 BURN OF UNSPECIFIED DEGREE OF FOREARM 03/26/2013 RANJAN NEW ACCOUNTS REPRESENTATIVE, NENO S E013.1 LAUNDRY 03/26/2013 DALY CASHERO NEW ACCOUNTS REPRESENTATIVE, ROBERTO N 943.01 BURN OF UNSPECIFIED DEGREE OF FOREARM 03/26/2013 DALY CASHERO NEW ACCOUNTS REPRESENTATIVE, ROBERTO N E013.1 LAUNDRY 03/26/2013 RANJAN NEW ACCOUNTS REPRESENTATIVE, NENO S 943.01 BURN OF UNSPECIFIED DEGREE OF FOREARM 03/26/2013 RANJAN NEW ACCOUNTS REPRESENTATIVE, NENO S E013.1 LAUNDRY 03/26/2013 KAREN GUTIERREZ PHD 943.01 BURN OF UNSPECIFIED DEGREE OF FOREARM 03/26/2013 KAREN GUTIERREZ PHD E013.1 LAUNDRY 03/26/2013 MARIAN FRAGOSO, PRIETO R 943.01 BURN OF UNSPECIFIED DEGREE OF FOREARM 03/26/2013 MARIAN FRAGOSO, PRIETO R E013.1 LAUNDRY 03/26/2013 DOUGLAS LEAL MD 943.0 1 BURN OF UNSPECIFIED DEGREE OF FOREARM 03/26/2013 DOUGLAS LEAL MD E013. 1 LAUNDRY 03/26/2013 KAREN GUTIERREZ PHD 943.01 BURN OF UNSPECIFIED DEGREE OF FOREARM 03/26/2013 KAREN GUTIERREZ PHD E013.1 LAUNDRY 03/26/2013 DIONNA FRAGOSO, LAURIE 943 .01 BURN OF UNSPECIFIED DEGREE OF FOREARM 03/26/2013 DIONNA NEW ACCOUNTS REPRESENTATIVE, LAURIE E01 3.1 LAUNDRY 03/26/2013 RANJAN NEW ACCOUNTS REPRESENTATIVE, NENO S 943.01 BURN OF UNSPECIFIED DEGREE OF FOREARM 03/26/2013 NENO WOODRUFF APRN E013.1 LAUNDRY 03/26/2013 DIONNA NEW ACCOUNTS REPRESENTATIVE, LAURIE 943 .01 BURN OF UNSPECIFIED DEGREE OF FOREARM 03/26/2013 DIONNA NEW ACCOUNTS REPRESENTATIVE, LAURIE E01 3.1 LAUNDRY 03/26/2013 DIONNA NEW ACCOUNTS REPRESENTATIVE, LAURIE 943 .01 BURN OF UNSPECIFIED DEGREE OF FOREARM 03/26/2013 DIONNA NEW ACCOUNTS REPRESENTATIVE, LAURIE E01 3.1 LAUNDRY 03/26/2013 DIONNA NEW ACCOUNTS REPRESENTATIVE, LAURIE 943 .01 BURN OF UNSPECIFIED DEGREE OF FOREARM 03/26/2013 DIONNA NEW ACCOUNTS REPRESENTATIVE, LAURIE E01 3.1 LAUNDRY 03/26/2013 OMAR ADORNO APRN 943.01 BURN OF UNSPECIFIED DEGREE OF FOREARM 03/26/2013 OMAR ADORNO APRN E013.1 LAUNDRY 03/26/2013 DIONNA NEW ACCOUNTS REPRESENTATIVE, LAURIE 943 .01 BURN OF UNSPECIFIED DEGREE OF FOREARM 03/26/2013 DIONNA NEW ACCOUNTS REPRESENTATIVE, LAURIE E01 3.1 LAUNDRY 03/26/2013 ROSHAN DDS, KAITLIN Cortez 943.01 BURN OF UNSPECIFIED DEGREE OF FOREARM 03/26/2013 WHITE DDS, KAITLIN J E013.1 LAUNDRY 03/26/2013 OLGA GILLESPIES, JULI 943.01 BURN OF UNSPECIFIED DEGREE OF FOREARM 03/26/2013 OLGA DDS, JULI E013.1 LAUNDRY 03/26/2013 OLGA DDS, JUIL 943.01 BURN OF UNSPECIFIED DEGREE OF FOREARM 03/26/2013 OLGA DDS, JULI E013.1 LAUNDRY 03/26/2013 DIONNA NEW ACCOUNTS REPRESENTATIVE, LAURIE 943 .01 BURN OF UNSPECIFIED DEGREE OF FOREARM 03/26/2013 DIONNA NEW ACCOUNTS REPRESENTATIVE, LAURIE E01 3.1 LAUNDRY 03/26/2013 YOUNG DO BEAR K 943.01 BURN OF UNSPECIFIED DEGREE OF FOREARM 03/26/2013 YOUNG DO, BEAR K E013.1 LAUNDRY 03/26/2013 MARIAN NEW ACCOUNTS REPRESENTATIVE, PRIETO R 943.01 BURN OF UNSPECIFIED DEGREE OF FOREARM 03/26/2013 MARIAN NEW ACCOUNTS REPRESENTATIVE, PRIETO R E013.1 LAUNDRY 03/26/2013 DIONNA NEW ACCOUNTS REPRESENTATIVE, LAURIE 943 .01 BURN OF UNSPECIFIED DEGREE OF FOREARM 03/26/2013 DIONNA FRAGOSO, LAURIE E01 3.1 LAUNDRY 03/26/2013 MARIAN FRAGOSO, PRIETO R 943.01 [...] MD 787.0 1 NAUSEA WITH VOMITING 04/11/2013 BENI STEEL ENGRAVER, AREN Merida 787.01 NAUSEA WITH VOMITING 04/11/2013 NENO WOODRUFF APRN S 787.01 NAUSEA WITH VOMITING 04/11/2013 BRENDA PABLO, KAREN Quinn 787.01 NAUSEA WITH VOMITING 04/11/2013 BRENDA PABLO, KAREN Quinn 787.01 NAUSEA WITH VOMITING 04/11/2013 NENO WOODRUFF [...] APRN S 787.01 NAUSEA WITH VOMITING 04/11/2013 DIONNA FRAGOSO LAURIE 787 .01 NAUSEA WITH VOMITING 04/11/2013 DIONNA FRAGOSO LAURIE 787 .01 NAUSEA WITH VOMITING 04/11/2013 DIONNA FRAGOSO, LAURIE 787 .01 NAUSEA WITH VOMITING 04/11/2013 OMAR ADORNO APRN 787.01 NAUSEA WITH VOMITING 04/11/2013 DIONNA FRAGOSO LAURIE 787 .01 NAUSEA WITH VOMITING 04/11/2013 ROSHAN GILLESPIESKAITLIN 787.01 NAUSEA WITH VOMITING 04/11/2013 OLGA GILLESPIESJULI 787.01 NAUSEA WITH VOMITING 04/11/2013 OLGA GILLESPIESJULI 787.01 NAUSEA WITH VOMITING 04/11/2013 DIONNA FRAGOSO LAURIE 787 .01 NAUSEA WITH VOMITING 04/11/2013 BEAR YOUNG DO K 787.01 NAUSEA WITH VOMITING 04/11/2013 MARIAN FRAGOSO, PRIETO R 787.01 NAUSEA WITH VOMITING 04/11/2013 DIONNA FRAGOSO LAURIE 787 .01 NAUSEA WITH VOMITING 04/11/2013 MARIAN FRAGOSO PRIETO R 787.01 NAUSEA WITH VOMITING 04/11/2013 MARIAN FRAGOSO PRIETO R 787.01 NAUSEA WITH VOMITING 04/11/2013 MEL JOYCE, DOUGLAS 787.0 1 NAUSEA WITH VOMITING 04/11/2013 BEAR YOUNG DO K 787.01 NAUSEA WITH VOMITING 04/23/2013 AREN BAZAN LCPC 296.32 MO DEPRESSIVE RECURRENT MODERATE 04/23/2013 AREN BAZAN LCPC 300.02 AN GEN ANXIETY 04/23/2013 NENO WOODRUFF APRN S 296.32 MO DEPRESSIVE RECURRENT MODERATE 04/23/2013 NENO OWODRUFF APRN S 300.02 AN GEN ANXIETY 04/23/2013 BRENDA PABLO, KAREN Quinn 296.32 MO DEPRESSIVE RECURRENT MODERATE 04/23/2013 KAREN GUTIERREZ PHD 300.02 AN GEN ANXIETY 04/23/2013 BRENDA PABLO, KAREN Quinn 296.32 MO DEPRESSIVE RECURRENT MODERATE 04/23/2013 KAREN GUTIERREZ PHD 300.02 AN GEN ANXIETY 04/23/2013 NENO WOODRUFF APRN S 296.32 MO DEPRESSIVE RECURRENT MODERATE 04/23/2013 RANJAN FRAGOSO, NENO S 300.02 AN GEN ANXIETY 04/23/2013 RANJAN FRAGOSO, NENO S 296.32 MO DEPRESSIVE RECURRENT MODERATE 04/23/2013 RANJAN FRAGOSO, NENO S 300.02 AN GEN ANXIETY 04/23/2013 MALIKA GUILLEN APRN, ROBERTO N 296.32 MO DEPRESSIVE RECURRENT MODERATE 04/23/2013 MALIKA GUILLEN APRN, ROBERTO N 300.02 AN GEN ANXIETY 04/23/2013 RANJAN FRAGOSO, NENO S 296.32 MO DEPRESSIVE RECURRENT MODERATE 04/23/2013 RANJAN FRAGOSO, NENO S 300.02 AN GEN ANXIETY 04/23/2013 BRENDA PHD, KAREN Quinn 296.32 MO DEPRESSIVE RECURRENT MODERATE 04/23/2013 BRENDA PHD, KAREN Quinn 300.02 AN GEN ANXIETY 04/23/2013 MARIAN FRAGOSO, PRIETO R 296.32 MO DEPRESSIVE RECURRENT MODERATE 04/23/2013 MARIAN FRAGOSO, PRIETO R 300.02 AN GEN ANXIETY 04/23/2013 DOUGLAS LEAL MD 296.3 2 MO DEPRESSIVE RECURRENT MODERATE 04/23/2013 DOUGLAS LEAL MD 300.0 2 AN GEN ANXIETY 04/23/2013 BRENDA PHD, KAREN Quinn 296.32 MO DEPRESSIVE RECURRENT MODERATE 04/23/2013 BRENDA PHD, KAREN Quinn 300.02 AN GEN ANXIETY 04/23/2013 DIONNA NEW ACCOUNTS REPRESENTATIVE, LAURIE 296 .32 MO DEPRESSIVE RECURRENT MODERATE 04/23/2013 DIONNA NEW ACCOUNTS REPRESENTATIVE, LAURIE 300 .02 AN GEN ANXIETY 04/23/2013 KATIE WOODRUFF APRNNDA S 296.32 MO DEPRESSIVE RECURRENT MODERATE 04/23/2013 KATIE WOODRUFF APRNNDA S 300.02 AN GEN ANXIETY 04/23/2013 DIONNA NEW ACCOUNTS REPRESENTATIVE, LAURIE 296 .32 MO DEPRESSIVE RECURRENT MODERATE 04/23/2013 DIONNA NEW ACCOUNTS REPRESENTATIVE, LAURIE 300 .02 AN GEN ANXIETY 04/23/2013 DIONNA NEW ACCOUNTS REPRESENTATIVE, LAURIE 296 .32 MO DEPRESSIVE RECURRENT MODERATE 04/23/2013 DIONNA NEW ACCOUNTS REPRESENTATIVE, LAURIE 300 .02 AN GEN ANXIETY 04/23/2013 DIONNA NEW ACCOUNTS REPRESENTATIVE, LAURIE 296 .32 MO DEPRESSIVE RECURRENT MODERATE 04/23/2013 DIONNA NEW ACCOUNTS REPRESENTATIVE, LAURIE 300 .02 AN GEN ANXIETY 04/23/2013 OMAR ADORNO APRN 296.32 MO DEPRESSIVE RECURRENT MODERATE 04/23/2013 OMAR ADORNO APRN 300.02 AN GEN ANXIETY 04/23/2013 DIONNA NEW ACCOUNTS REPRESENTATIVE, LAURIE 296 .32 MO DEPRESSIVE RECURRENT MODERATE 04/23/2013 DIONNAMYESHA MURILLON, LAURIE 300 .02 AN GEN ANXIETY 04/23/2013 WHITE DDS, KAITLIN J 296.32 MO DEPRESSIVE RECURRENT MODERATE 04/23/2013 WHITE DDS, KAITLIN J 300.02 AN GEN ANXIETY 04/23/2013 ESPINOZA DDS, JULI 296.32 MO DEPRESSIVE RECURRENT MODERATE 04/23/2013 ESPINOZA DDS, JULI 300.02 AN GEN ANXIETY 04/23/2013 ESPINOZA DDS, JULI 296.32 MO DEPRESSIVE RECURRENT MODERATE 04/23/2013 ESPINOZA DDS, JULI 300.02 AN GEN ANXIETY 04/23/2013 DIONNA NEW ACCOUNTS REPRESENTATIVE, LAURIE 296 .32 MO DEPRESSIVE RECURRENT MODERATE 04/23/2013 DOINNA FRAGOSO LAURIE 300 .02 AN GEN ANXIETY 04/23/2013 KENDY YOUNG DOA K 296.32 MO DEPRESSIVE RECURRENT MODERATE 04/23/2013 KENDY YOUNG DOA K 300.02 AN GEN ANXIETY 04/23/2013 MARIAN FRAGOSO, PRIETO R 296.32 MO DEPRESSIVE RECURRENT MODERATE 04/23/2013 MARIAN FRAGOSO, PRIETO R 300.02 AN GEN ANXIETY 04/23/2013 DIONNA FRAGOSO LAURIE 296 .32 MO DEPRESSIVE RECURRENT MODERATE 04/23/2013 DIONNA FRAGOSO, LAURIE 300 .02 AN GEN ANXIETY 04/23/2013 MARIAN FRAGOSO, PRIETO R 296.32 MO DEPRESSIVE RECURRENT MODERATE 04/23/2013 MARIAN FRAGOSO, PRIETO R 300.02 AN GEN ANXIETY 04/23/2013 MARIAN FRAGOSO, PRIETO R 296.32 MO DEPRESSIVE RECURRENT MODERATE 04/23/2013 MARIAN FRAGOSO, PRIETO R 300.02 AN GEN ANXIETY 04/23/2013 DOUGLAS LEAL MD 296.3 2 MO DEPRESSIVE RECURRENT MODERATE 04/23/2013 DOUGLAS LEAL MD 300.0 2 AN GEN ANXIETY 04/23/2013 KENDY YOUNG DOA K 296.32 MO DEPRESSIVE RECURRENT MODERATE 04/23/2013 HANNAH COFFMAN BEAR K 300.02 AN GEN ANXIETY 05/01/2013 RANJAN FRAGOSO, NENO Trejo 736.79 FOOT DROP 05/01/2013 BRENDA PABLO, KAREN D 736.79 FOOT DROP 05/01/2013 BRENDA PABLO, KAREN Quinn 736.79 FOOT DROP 05/01/2013 RANJANELOISA FRAGOSO, NENO S 736.79 FOOT DROP 05/01/2013 RANJAN FRAGOSO, NENO S 736.79 FOOT DROP 05/01/2013 MALIKA GUILLEN FOUZIA ROBERTO N 736.79 FOOT DROP 05/01/2013 RANJAN FRAGOSO, NENO S 736.79 FOOT DROP 05/01/2013 BRENDA PHD, KAREN Quinn 736.79 FOOT DROP 05/01/2013 MARIAN NEW ACCOUNTS REPRESENTATIVE, PRIETO R 736.79 FOOT DROP 05/01/2013 DOUGLAS LEAL MD 736.7 9 FOOT DROP 05/01/2013 BRENDA PABLO, KAREN Quinn 736.79 FOOT DROP 05/01/2013 DIONNA NEW ACCOUNTS REPRESENTATIVE, LAURIE 736 .79 FOOT DROP 05/01/2013 RANJAN FRAGOSO, NENO S 736.79 FOOT DROP 05/01/2013 DIONNA NEW ACCOUNTS REPRESENTATIVE, LAURIE 736 .79 FOOT DROP 05/01/2013 DIONNA NEW ACCOUNTS REPRESENTATIVE, LAURIE 736 .79 FOOT DROP 05/01/2013 DIONNA NEW ACCOUNTS REPRESENTATIVE, LAURIE 736 .79 FOOT DROP 05/01/2013 OMAR ADORNO APRN 736.79 FOOT DROP 05/01/2013 DIONNA NEW ACCOUNTS REPRESENTATIVE, LAURIE 736 .79 FOOT DROP 05/01/2013 KAITLIN ISLAS DDS 736.79 FOOT DROP 05/01/2013 ESPINOZA DDJULI Trejo 736.79 FOOT DROP 05/01/2013 ESPINOZA JOSE MIGUELSJULI 736.79 FOOT DROP 05/01/2013 DIONNA NEW ACCOUNTS REPRESENTATIVE, LAURIE 736 .79 FOOT DROP 05/01/2013 YOUNG DOKENDYA K 736.79 FOOT DROP 05/01/2013 MARIAN NEW ACCOUNTS REPRESENTATIVE, PRIETO R 736.79 FOOT DROP 05/01/2013 DIONNA NEW ACCOUNTS REPRESENTATIVE, LAURIE 736 .79 FOOT DROP 05/01/2013 MARIAN NEW ACCOUNTS REPRESENTATIVE, PRIETO R 736.79 FOOT DROP 05/01/2013 MARIAN NEW ACCOUNTS REPRESENTATIVE, PRIETO R 736.79 FOOT DROP 05/01/2013 DOUGLAS LEAL MD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 CASANDRA BRENNON LOCAL DELIVERY DRIVER Ot J45.909 UNSPECIFIED ASTHMA, UNCOMPLICATED 07/23/2017 CASANDRA BRENNON LOCAL DELIVERY DRIVER Ot K21.9 GASTRO-ESOPHAGEAL REFLUX DISEASE WITHOUT 07/23/2017 CASANDRA, BRENNON LOCAL DELIVERY DRIVER Ot T81.89XA OTH COMPLICATIONS OF PROCEDURES, NEC, IN 07/23/2017 CASANDRA BRENNON LOCAL DELIVERY DRIVER Ot Z68.35 BODY MASS INDEX (BMI) 35.0-35.9, ADULT 07/23/2017 CASANDRABRENNON RiggsP Ot Z79.82 OPERATING ROOM COORDINATOR (CURRENT) USE OF ASPIRIN 07/23/2017 BRENNON GUAJARDOP Ot Z86.19 PERSONAL HISTORY OF OTHER INFECTIOUS AND 07/23/2017 BRENNON GUAJARDOP Ot Z87.42 PERSONAL HISTORY OF OTH DISEASES OF THE 07/23/2017 CASANDRABRENNON RiggsP Ot Z88.0 ALLERGY STATUS TO PENICILLIN 07/23/2017 BRENNON GUAJARDOP Ot Z88.5 ALLERGY STATUS TO NARCOTIC AGENT STATUS 07/23/2017 CASANDRABRENNON RiggsP Ot Z88.8 ALLERGY STATUS TO OTH DRUG/MEDS/BIOL SUB 07/23/2017 BRENNON GUAJARDOP Ot Z90.49 ACQUIRED ABSENCE OF OTHER SPECIFIED PART 07/23/2017 BRENNON GUAJARDOP Ot Z90.710 ACQUIRED ABSENCE OF BOTH CERVIX AND UTER 07/23/2017 BRENNON GUAJARDOP Ot 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 OTHER ORGANS 07/29/2017 BRENNON GUAJARDOP Ot E66.01 MORBID (SEVERE) OBESITY DUE TO EXCESS CA 07/29/2017 BRENNON GUAJARDOP Ot F32.9 MAJOR DEPRESSIVE DISORDER, SINGLE EPISOD 07/29/2017 BRENNON GUAJARDO LOCAL DELIVERY DRIVER Ot F41.9 ANXIETY DISORDER, UNSPECIFIED 07/29/2017 BRENNON GUAJARDO LOCAL DELIVERY DRIVER Ot G40.909 EPILEPSY, UNSP, NOT INTRACTABLE, WITHOUT 07/29/2017 CASANDRA BRENNON LOCAL DELIVERY DRIVER Ot G47.9 SLEEP DISORDER, UNSPECIFIED 07/29/2017 CASANDRA BRENNON LOCAL DELIVERY DRIVER Ot I10 ESSENTIAL (PRIMARY) HYPERTENSION 07/29/2017 BRENNON GUAJARDOP Ot J45.909 UNSPECIFIED ASTHMA, UNCOMPLICATED 07/29/2017 BRENNON GUAJARDO LOCAL DELIVERY DRIVER Ot K21.9 GASTRO-ESOPHAGEAL REFLUX DISEASE WITHOUT 07/29/2017 BRENNON GUAJARDO LOCAL DELIVERY DRIVER Ot T81.89XA OTH COMPLICATIONS OF PROCEDURES, NEC, IN 07/29/2017 BRENNON GUAJARDOP Ot Z68.35 BODY MASS INDEX (BMI) 35.0-35.9, ADULT 07/29/2017 BRENNON GUAJARDO LOCAL DELIVERY DRIVER Ot Z79.82 SHELTER (CURRENT) USE OF ASPIRIN 07/29/2017 BRENNON GUAJARDOP Ot Z86.19 PERSONAL HISTORY OF OTHER INFECTIOUS AND 07/29/2017 BRENNON GUAJARDOP Ot Z87.42 PERSONAL HISTORY OF OTH DISEASES OF THE 07/29/2017 BRENNON GUAJARDOP Ot Z88.0 ALLERGY STATUS TO PENICILLIN 07/29/2017 BRENNON GUAJARDO CONNOR Ot Z88.5 ALLERGY STATUS TO NARCOTIC AGENT STATUS 07/29/2017 BRENNON GUAJARDOP Ot Z88.8 ALLERGY STATUS TO OTH DRUG/MEDS/BIOL SUB 07/29/2017 CASANDRABRENNON Ot Z90.49 ACQUIRED ABSENCE OF OTHER SPECIFIED PART 07/29/2017 CASANDRABRENNON Riggs Ot Z90.710 ACQUIRED ABSENCE OF BOTH CERVIX AND UTER 07/29/2017 CASANDRABRENNON Riggs Ot 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 OTHER ORGANS [...] I10 ESSENTIAL (PRIMARY) HYPERTENSION 02/27/2018 MARCELLA FARRELL MD Ot J45.909 UNSPECIFIED ASTHMA, UNCOMPLICATED 02/27/2018 MARCELLA FARRELL MD Ot K21. 9 GASTRO-ESOPHAGEAL REFLUX DISEASE WITHOUT 02/27/2018 MARCELLA FARRELL MD Ot R07. 1 CHEST PAIN ON BREATHING 02/27/2018 MARCELLA FARRELL MD Ot R07. 81 PLEURODYNIA 02/27/2018 MARCELLA FARRELL MD Ot Z68. 41 BODY MASS INDEX (BMI) 40.0-44.9, ADULT 02/27/2018 MARCELLA FARRELL MD Ot Z79. 51 OPERATING ROOM COORDINATOR (CURRENT) USE OF INHALED STERO 02/27/2018 MARCELLA FARRELL MD Ot Z79. 82 OPERATING ROOM COORDINATOR (CURRENT) USE OF ASPIRIN 02/27/2018 MARCELLA FARRELL [...] 03/01/2018 MARCELLA FARRELL MD Ot Z79. 51 SHELTER (CURRENT) USE OF INHALED STERO 03/01/2018 MARCELLA FARRELL MD Ot Z79. 82 SHELTER (CURRENT) USE OF ASPIRIN 03/01/2018 MARCELLA FARRELL [...] 03/05/2018 MARCELLA FARRELL MD Ot Z79. 51 SHELTER (CURRENT) USE OF INHALED STERO 03/05/2018 MARCELLA FARRELL MD Ot Z79. 82 OPERATING ROOM COORDINATOR (CURRENT) USE OF ASPIRIN 03/05/2018 MARCELLA FARRELL [...] DUE TO EXCESS CA 03/05/2018 BRENNON GUAJARDO LOCAL DELIVERY DRIVER Ot F12.10 CANNABIS ABUSE, UNCOMPLICATED 03/05/2018 BRENNON GUAJARDO LOCAL DELIVERY DRIVER Ot F17.210 NICOTINE DEPENDENCE, CIGARETTES, UNCOMPL 03/05/2018 BRENNON GUAJARDO LOCAL DELIVERY DRIVER Ot F32.9 MAJOR DEPRESSIVE DISORDER, SINGLE EPISOD 03/05/2018 BRENNON GUAJARDO LOCAL DELIVERY DRIVER Ot F41.9 ANXIETY DISORDER, UNSPECIFIED 03/05/2018 BRENNON GUAJARDO LOCAL DELIVERY DRIVER Ot G40.909 EPILEPSY, UNSP, NOT INTRACTABLE, WITHOUT 03/05/2018 CASANDRA, BRENNON LOCAL DELIVERY DRIVER Ot I10 ESSENTIAL (PRIMARY) HYPERTENSION 03/05/2018 BRENNON GUAJARDO LOCAL DELIVERY DRIVER Ot J45.909 UNSPECIFIED ASTHMA, UNCOMPLICATED 03/05/2018 CASANDRA BRENNON LOCAL DELIVERY DRIVER Ot K21.9 GASTRO-ESOPHAGEAL REFLUX DISEASE WITHOUT 03/05/2018 BRENNON GUAJARDO LOCAL DELIVERY DRIVER Ot M25.551 PAIN IN RIGHT HIP 03/05/2018 BRENNON GUAJARDO LOCAL DELIVERY DRIVER Ot M54.41 LUMBAGO WITH SCIATICA, RIGHT SIDE 03/05/2018 BRENNON GUAJARDO LOCAL DELIVERY DRIVER Ot Z68.41 BODY MASS INDEX (BMI) 40.0-44.9, ADULT 03/05/2018 BRENNON GUAJARDOP Ot Z79.51 OPERATING ROOM COORDINATOR (CURRENT) USE OF INHALED STERO 03/05/2018 BRENNON GUAJARDO LOCAL DELIVERY DRIVER Ot Z79.52 OPERATING ROOM COORDINATOR (CURRENT) USE OF SYSTEMIC STER 03/05/2018 BRENNON GUAJARDOP Ot Z79.82 OPERATING ROOM COORDINATOR (CURRENT) USE OF ASPIRIN 03/05/2018 BRENNON GUAJARDO LOCAL DELIVERY DRIVER Ot Z82.49 FAMILY HX OF ISCHEM HEART DIS AND OTH DI 03/05/2018 BRENNON GUAJARDO LOCAL DELIVERY DRIVER Ot Z87.19 PERSONAL HISTORY OF OTHER DISEASES OF TH 03/05/2018 BRENNON GUAJARDOP Ot Z87.448 PERSONAL HISTORY OF OTHER DISEASES OF UR 03/05/2018 BRENNON GUAJARDO LOCAL DELIVERY DRIVER Ot Z88.0 ALLERGY STATUS TO PENICILLIN 03/05/2018 CASANDRA BRENNON LOCAL DELIVERY DRIVER Ot Z88.5 ALLERGY STATUS TO NARCOTIC AGENT STATUS 03/05/2018 BRENNON GUAJARDO LOCAL DELIVERY DRIVER Ot Z88.8 ALLERGY STATUS TO OTH DRUG/MEDS/BIOL SUB 03/05/2018 CASANDRA BRENNON LOCAL DELIVERY DRIVER Ot Z90.710 ACQUIRED ABSENCE OF BOTH CERVIX AND UTER 03/05/2018 CASANDRA BRENNON LOCAL DELIVERY DRIVER Ot 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 OTHER ORGANS 03/05/2018 CASANDRA BRENNON LOCAL DELIVERY DRIVER Ot Z98.890 OTHER SPECIFIED POSTPROCEDURAL STATES 03/08/2018 BRENNON GUAJARDO LOCAL DELIVERY DRIVER Ot E66.01 MORBID (SEVERE) OBESITY DUE TO EXCESS CA 03/08/2018 CASANDRA BRENNON LOCAL DELIVERY DRIVER Ot F12.10 CANNABIS ABUSE, UNCOMPLICATED 03/08/2018 CASANDRA BRENNON LOCAL DELIVERY DRIVER Ot F17.210 NICOTINE DEPENDENCE, CIGARETTES, UNCOMPL 03/08/2018 CASANDRA BRENNON LOCAL DELIVERY DRIVER Ot F32.9 MAJOR DEPRESSIVE DISORDER, SINGLE EPISOD 03/08/2018 CASANDRA BRENNON LOCAL DELIVERY DRIVER Ot F41.9 ANXIETY DISORDER, UNSPECIFIED 03/08/2018 CASANDRA BRENNON LOCAL DELIVERY DRIVER Ot G40.909 EPILEPSY, UNSP, NOT INTRACTABLE, WITHOUT 03/08/2018 CASANDRA BRENNON LOCAL DELIVERY DRIVER Ot I10 ESSENTIAL (PRIMARY) HYPERTENSION 03/08/2018 CASANDRA BRENNON LOCAL DELIVERY DRIVER Ot J45.909 UNSPECIFIED ASTHMA, UNCOMPLICATED 03/08/2018 BRENNON GUAJARDOP Ot K21.9 GASTRO-ESOPHAGEAL REFLUX DISEASE WITHOUT 03/08/2018 BRENNON GUAJARDOP Ot M25.551 PAIN IN RIGHT HIP 03/08/2018 BRENNON GUAJARDOP Ot M54.41 LUMBAGO WITH SCIATICA, RIGHT SIDE 03/08/2018 BRENNON GUAJARDOP Ot Z68.41 BODY MASS INDEX (BMI) 40.0-44.9, ADULT 03/08/2018 BRENNON GUAJARDOP Ot Z79.51 SHELTER (CURRENT) USE OF INHALED STERO 03/08/2018 BRENNON GUAJARDOP Ot Z79.52 SHELTER (CURRENT) USE OF SYSTEMIC STER 03/08/2018 BRENNON GUAJARDOP Ot Z79.82 OPERATING ROOM COORDINATOR (CURRENT) USE OF ASPIRIN 03/08/2018 BRENNON GUAJARDOP Ot Z82.49 FAMILY HX OF ISCHEM HEART DIS AND OTH DI 03/08/2018 BRENNON GUAJARDOP Ot Z87.19 PERSONAL HISTORY OF OTHER DISEASES OF TH 03/08/2018 BRENNON GUAJARDOP Ot Z87.448 PERSONAL HISTORY OF OTHER DISEASES OF UR 03/08/2018 BRENNON GUAJARDO LOCAL DELIVERY DRIVER Ot Z88.0 ALLERGY STATUS TO PENICILLIN 03/08/2018 BRENNON GUAJARDO LOCAL DELIVERY DRIVER Ot Z88.5 ALLERGY STATUS TO NARCOTIC AGENT STATUS 03/08/2018 BRENNON GUAJARDOP Ot Z88.8 ALLERGY STATUS TO OTH DRUG/MEDS/BIOL SUB 03/08/2018 BRENNON GUAJARDO LOCAL DELIVERY DRIVER Ot Z90.710 ACQUIRED ABSENCE OF BOTH CERVIX AND UTER 03/08/2018 BRENNON GUAJARDO LOCAL DELIVERY DRIVER Ot 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 OTHER ORGANS 03/08/2018 BRENNON GUAJARDO LOCAL DELIVERY DRIVER Ot Z98.890 OTHER SPECIFIED POSTPROCEDURAL STATES 03/12/2018 BRENNON GUAJARDO LOCAL DELIVERY DRIVER Ot E66.01 MORBID (SEVERE) OBESITY DUE TO EXCESS CA 03/12/2018 BRENNON GUAJARDOP Ot F12.10 CANNABIS ABUSE, UNCOMPLICATED 03/12/2018 BRENNON GUAJARDO LOCAL DELIVERY DRIVER Ot F17.210 NICOTINE DEPENDENCE, CIGARETTES, UNCOMPL 03/12/2018 BRENNON GUAJARDO LOCAL DELIVERY DRIVER Ot F32.9 MAJOR DEPRESSIVE DISORDER, SINGLE EPISOD 03/12/2018 BRENNON GUAJARDOP Ot F41.9 ANXIETY DISORDER, UNSPECIFIED 03/12/2018 BRENNON GUAJARDOP Ot G40.909 EPILEPSY, UNSP, NOT INTRACTABLE, WITHOUT 03/12/2018 BRENNON GUAJARDOP Ot I10 ESSENTIAL (PRIMARY) HYPERTENSION 03/12/2018 BRENNON GUAJARDOP Ot J45.909 UNSPECIFIED ASTHMA, UNCOMPLICATED 03/12/2018 BRENNON GUAJARDOP Ot K21.9 GASTRO-ESOPHAGEAL REFLUX DISEASE WITHOUT 03/12/2018 BRENNON GUAJARDOP Ot M25.551 PAIN IN RIGHT HIP 03/12/2018 BRENNON GUAJARDOP Ot M54.41 LUMBAGO WITH SCIATICA, RIGHT SIDE 03/12/2018 BRENNON GUAJARDOP Ot Z68.41 BODY MASS INDEX (BMI) 40.0-44.9, ADULT 03/12/2018 BRENNON GUAJARDOP Ot Z79.51 OPERATING ROOM COORDINATOR (CURRENT) USE OF INHALED STERO 03/12/2018 BRENNON GUAJARDOP Ot Z79.52 OPERATING ROOM COORDINATOR (CURRENT) USE OF SYSTEMIC STER 03/12/2018 BRENNON GUAJARDOP Ot Z79.82 OPERATING ROOM COORDINATOR (CURRENT) USE OF ASPIRIN 03/12/2018 BRENNON GUAJARDO LOCAL DELIVERY DRIVER Ot Z82.49 FAMILY HX OF ISCHEM HEART DIS AND OTH DI 03/12/2018 BRENNON GUAJARDOP Ot Z87.19 PERSONAL HISTORY OF OTHER DISEASES OF TH 03/12/2018 BRENNON GUAJARDOP Ot Z87.448 PERSONAL HISTORY OF OTHER DISEASES OF UR 03/12/2018 BRENNON GUAJARDO LOCAL DELIVERY DRIVER Ot Z88.0 ALLERGY STATUS TO PENICILLIN 03/12/2018 BRENNON GUAJARDO LOCAL DELIVERY DRIVER Ot Z88.5 ALLERGY STATUS TO NARCOTIC AGENT STATUS 03/12/2018 BRENNON GUAJARDO LOCAL DELIVERY DRIVER Ot Z88.8 ALLERGY STATUS TO OTH DRUG/MEDS/BIOL SUB 03/12/2018 BRENNON GUAJARDO LOCAL DELIVERY DRIVER Ot Z90.710 ACQUIRED ABSENCE OF BOTH CERVIX AND UTER 03/12/2018 BRENNON GUAJARDO LOCAL DELIVERY DRIVER Ot 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 OTHER ORGANS 03/12/2018 BRENNON GUAJARDO LOCAL DELIVERY DRIVER Ot Z98.890 OTHER SPECIFIED POSTPROCEDURAL STATES 03/17/2018 BRENNON GUAJARDOP Ot E66.01 MORBID (SEVERE) OBESITY DUE TO EXCESS CA 03/17/2018 BRENNON GUAJARDOP Ot F32.9 MAJOR DEPRESSIVE DISORDER, SINGLE EPISOD 03/17/2018 BRENNON GUAJARDO LOCAL DELIVERY DRIVER Ot F41.9 ANXIETY DISORDER, UNSPECIFIED 03/17/2018 CASANDRA BRENNON LOCAL DELIVERY DRIVER Ot G40.909 EPILEPSY, UNSP, NOT INTRACTABLE, WITHOUT 03/17/2018 CASANDRABRENNON Riggs LOCAL DELIVERY DRIVER Ot G47.9 SLEEP DISORDER, UNSPECIFIED 03/17/2018 CASANDRA, BRENNON LOCAL DELIVERY DRIVER Ot I10 ESSENTIAL (PRIMARY) HYPERTENSION 03/17/2018 CASANDRABRENNON Riggs LOCAL DELIVERY DRIVER Ot J45.909 UNSPECIFIED ASTHMA, UNCOMPLICATED 03/17/2018 CASANDRA, BRENNON LEEP Ot K21.9 GASTRO-ESOPHAGEAL REFLUX DISEASE WITHOUT 03/17/2018 CASANDRA, BRENNON LOCAL DELIVERY DRIVER Ot T81.89XA OTH COMPLICATIONS OF PROCEDURES, NEC, IN 03/17/2018 CASANDRABRENNON Riggs LOCAL DELIVERY DRIVER Ot Z68.35 BODY MASS INDEX (BMI) 35.0-35.9, ADULT 03/17/2018 CASANDRA, BRENNON LOCAL DELIVERY DRIVER Ot Z79.82 SHELTER (CURRENT) USE OF ASPIRIN 03/17/2018 CASANDRABRENNON Riggs LOCAL DELIVERY DRIVER Ot Z86.19 PERSONAL HISTORY OF OTHER INFECTIOUS AND 03/17/2018 CASANDRA, BRENNON LOCAL DELIVERY DRIVER Ot Z87.42 PERSONAL HISTORY OF OTH DISEASES OF THE 03/17/2018 CASANDRA, BRENNON LOCAL DELIVERY DRIVER Ot Z88.0 ALLERGY STATUS TO PENICILLIN 03/17/2018 CASANDRABRENNON Riggs LOCAL DELIVERY DRIVER Ot Z88.5 ALLERGY STATUS TO NARCOTIC AGENT STATUS 03/17/2018 CASANDRABRENNON Riggs LOCAL DELIVERY DRIVER Ot Z88.8 ALLERGY STATUS TO OTH DRUG/MEDS/BIOL SUB 03/17/2018 CASANDRA, BRENNON LOCAL DELIVERY DRIVER Ot Z90.49 ACQUIRED ABSENCE OF OTHER SPECIFIED PART 03/17/2018 BRENNON GUAJARDO LOCAL DELIVERY DRIVER Ot Z90.710 ACQUIRED ABSENCE OF BOTH CERVIX AND UTER 03/17/2018 CASANDRABRENNON Riggs LOCAL DELIVERY DRIVER Ot 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 OTHER ORGANS [...] I10 ESSENTIAL (PRIMARY) HYPERTENSION 05/08/2018 MARCELLA FARRELL MD, Ot J43. 9 EMPHYSEMA, UNSPECIFIED 05/08/2018 MARCELLA FARRELL MD Ot K21. 9 GASTRO-ESOPHAGEAL REFLUX DISEASE WITHOUT 05/08/2018 MARCELLA FARRELL MD Ot R40.2142 COMA SCALE, EYES OPEN, SPONTANEOUS, EMR 05/08/2018 MARCELLA FARRELL MD Ot R40.2252 COMA SCALE, BEST VERBAL RESPONSE, ORIENT 05/08/2018 MARCELLA FARRELL MD Ot R40.2362 COMA SCALE, [...] OTHER STAIRS AND STEPS, 05/08/2018 MARCELLA FARRELL MD Ot Z79. 51 OPERATING ROOM COORDINATOR (CURRENT) USE OF INHALED STERO 05/08/2018 MARCELLA FARRELL MD Ot Z79. 52 SHELTER (CURRENT) USE OF SYSTEMIC STER 05/08/2018 MARCELLA FARRELL MD Ot Z79. 82 SHELTER (CURRENT) USE OF ASPIRIN 05/08/2018 MARCELLA FARRELL MD Ot Z82. 49 FAMILY HX OF ISCHEM HEART DIS AND OTH DI 05/08/2018 MARCELLA FARRELL MD, Ot Z86. 19 PERSONAL HISTORY OF OTHER INFECTIOUS AND 05/08/2018 MARCELLA FARRELL MD, Ot Z87. 19 PERSONAL HISTORY OF OTHER DISEASES OF TH 05/08/2018 MARCELLA FARRELL MD Ot Z87.448 PERSONAL HISTORY OF OTHER DISEASES OF UR 05/08/2018 MARCELLA FARRELL MD Ot Z88. 0 ALLERGY STATUS TO PENICILLIN 05/08/2018 MARCELLA FARRELL MD, Ot Z88. 5 ALLERGY STATUS TO NARCOTIC AGENT STATUS 05/08/2018 MARCELLA FARRELL MD Ot Z88. 6 ALLERGY [...] 05/11/2018 MARCELLA FARRELL MD Ot Z79. 51 OPERATING ROOM COORDINATOR (CURRENT) USE OF INHALED STERO 05/11/2018 MARCELLA FARRELL MD Ot Z79. 52 OPERATING ROOM COORDINATOR (CURRENT) USE OF SYSTEMIC STER 05/11/2018 MARCELLA FARRELL MD Ot Z79. 82 OPERATING ROOM COORDINATOR (CURRENT) USE OF ASPIRIN 05/11/2018 MARCELLA FARRELL [...] Z98.890 OTHER SPECIFIED POSTPROCEDURAL STATES 07/05/2018 BRENNON GUAJARDO Ot E66.01 MORBID (SEVERE) OBESITY DUE TO EXCESS CA 07/05/2018 BRENNON GUAJARDO Ot F12.10 CANNABIS ABUSE, UNCOMPLICATED 07/05/2018 BRENNON GUAJARDO Ot F17.210 NICOTINE DEPENDENCE, CIGARETTES, UNCOMPL 07/05/2018 BRENNON GUAJARDO Ot F32.9 MAJOR DEPRESSIVE DISORDER, SINGLE EPISOD 07/05/2018 BRENNON GUAJARDO Ot F41.9 ANXIETY DISORDER, UNSPECIFIED 07/05/2018 BRENNON GUAJARDO Ot G40.909 EPILEPSY, UNSP, NOT INTRACTABLE, WITHOUT 07/05/2018 CASANDRABRENNON RiggsP Ot I10 ESSENTIAL (PRIMARY) HYPERTENSION 07/05/2018 BRENNON GUAJARDO Ot J45.909 UNSPECIFIED ASTHMA, UNCOMPLICATED 07/05/2018 CASANDRABRENNON RiggsP Ot K21.9 GASTRO-ESOPHAGEAL REFLUX DISEASE WITHOUT 07/05/2018 BRENNON GUAJARDO Ot M25.551 PAIN IN RIGHT HIP 07/05/2018 BRENNON GUAJARDO Ot M54.41 LUMBAGO WITH SCIATICA, RIGHT SIDE 07/05/2018 CASANDRABRENNON RiggsP Ot Z68.41 BODY MASS INDEX (BMI) 40.0-44.9, ADULT 07/05/2018 BRENNON GUAJARDO Ot Z79.51 SHELTER (CURRENT) USE OF INHALED STERO 07/05/2018 BRENNON GUAJARDOP Ot Z79.52 OPERATING ROOM COORDINATOR (CURRENT) USE OF SYSTEMIC STER 07/05/2018 BRENNON GUAJARDOP Ot Z79.82 SHELTER (CURRENT) USE OF ASPIRIN 07/05/2018 BRENNON GUAJARDOP Ot Z82.49 FAMILY HX OF ISCHEM HEART DIS AND OTH DI 07/05/2018 BRENNON GUAJARDOP Ot Z87.19 PERSONAL HISTORY OF OTHER DISEASES OF TH 07/05/2018 BRENNON GUAJARDO Ot Z87.448 PERSONAL HISTORY OF OTHER DISEASES OF UR 07/05/2018 BRENNON GUAJARDO LOCAL DELIVERY DRIVER Ot Z88.0 ALLERGY STATUS TO PENICILLIN 07/05/2018 BRENNON GUAJARDOP Ot Z88.5 ALLERGY STATUS TO NARCOTIC AGENT STATUS 07/05/2018 BRENNON GUAJARDOP Ot Z88.8 ALLERGY STATUS TO [facility] DRUG/MEDS/BIOL SUB 07/05/2018 BRENNON GUAJARDO LOCAL DELIVERY DRIVER Ot Z90.710 ACQUIRED ABSENCE OF BOTH CERVIX AND UTER 07/05/2018 BRENNON GUAJARDOP Ot 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 OTHER ORGANS 07/05/2018 BRENNON GUAJARDOP Ot Z98.890 OTHER SPECIFIED POSTPROCEDURAL STATES 07/07/2018 [...] 40.0-44.9, ADULT 07/07/2018 CAIO DENTON Ot Z79.51 OPERATING ROOM COORDINATOR (CURRENT) USE OF INHALED STERO 07/07/2018 CAIO [...] 40.0-44.9, ADULT 07/10/2018 CAIO DENTON Ot Z79.51 SHELTER (CURRENT) USE OF INHALED STERO 07/10/2018 CAIO [...] Ot F17.210 NICOTINE DEPENDENCE, CIGARETTES, UNCOMPL 12/29/2018 SALVATORE MARTHA COFFMAN Ot F32.9 MAJOR DEPRESSIVE DISORDER, SINGLE EPISOD 12/29/2018 SALVATORE MARTHA COFFMAN Ot F41.9 ANXIETY DISORDER, UNSPECIFIED 12/29/2018 SALVATORE MARTHA COFFMAN Ot G40.909 EPILEPSY, UNSP, NOT INTRACTABLE, WITHOUT 12/29/2018 SALVATORE MARTHA COFFMAN Ot I10 ESSENTIAL (PRIMARY) HYPERTENSION 12/29/2018 MARTHA CHASE DO Ot J43.9 EMPHYSEMA, UNSPECIFIED 12/29/2018 SALVATORE MARTHA COFFMAN Ot J45.909 UNSPECIFIED ASTHMA, UNCOMPLICATED 12/29/2018 MARTHA CHASE DO Ot K21.9 GASTRO-ESOPHAGEAL REFLUX DISEASE WITHOUT 12/29/2018 MARTHA CHASE DO Ot K58.9 IRRITABLE BOWEL SYNDROME WITHOUT DIARRHE 12/29/2018 SALVATORE MARTHA COFFMAN Ot S51.811 A LACERATION W/O FOREIGN BODY OF RIGHT FOR 12/29/2018 MARTHA CHASE DO Ot W25.XXX A CONTACT WITH [place], INITIAL ENCOUN 12/29/2018 MARTHA CHASE DO Ot Z23 ENCOUNTER FOR IMMUNIZATION 12/29/2018 MARTHA CHASE DO Ot Z88.0 ALLERGY STATUS TO PENICILLIN 12/29/2018 MARTHA CHSAE DO Ot Z88.6 ALLERGY STATUS TO ANALGESIC AGENT STATUS 12/29/2018 SALVATORE MARTHA COFFMAN Ot Z90.49 ACQUIRED ABSENCE OF OTHER SPECIFIED PART 12/29/2018 MARTHA CHASE DO Ot Z90.710 ACQUIRED ABSENCE OF BOTH CERVIX AND UTER 12/29/2018 MARTHA CHASE DO Ot 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 OTHER ORGANS 01/01/2019 MARTHA CHASE DO Ot E66.01 MORBID (SEVERE) OBESITY DUE TO EXCESS CA 01/01/2019 MARTHA CHASE DO Ot F17.210 NICOTINE DEPENDENCE, CIGARETTES, UNCOMPL 01/01/2019 MARTHA CHASE DO Ot F32.9 MAJOR DEPRESSIVE DISORDER, SINGLE EPISOD 01/01/2019 SALVATORE MARTHA K Ot F41.9 ANXIETY DISORDER, UNSPECIFIED 01/01/2019 SALVATORE MARTHA K Ot G40.909 EPILEPSY, UNSP, NOT INTRACTABLE, WITHOUT 01/01/2019 MARTHA CHASE DO Ot I10 ESSENTIAL (PRIMARY) HYPERTENSION 01/01/2019 SALVATORE MARTHA COFFMAN Ot J43.9 EMPHYSEMA, UNSPECIFIED 01/01/2019 SALVATORE MARTHA COFFMAN Ot J45.909 UNSPECIFIED ASTHMA, UNCOMPLICATED 01/01/2019 SALVATORE MARTHA COFFMAN Ot K21.9 GASTRO-ESOPHAGEAL REFLUX DISEASE WITHOUT 01/01/2019 SALVATORE MARTHA COFFMAN Ot K58.9 IRRITABLE BOWEL SYNDROME WITHOUT DIARRHE 01/01/2019 SALVATORE MARTHA COFFMAN Ot S51.811 A LACERATION W/O FOREIGN BODY OF RIGHT FOR 01/01/2019 MARTHA CHASE DO Ot W25.XXX A CONTACT WITH [place], INITIAL ENCOUN 01/01/2019 MARTHA CHASE DO Ot Z23 ENCOUNTER FOR IMMUNIZATION 01/01/2019 MARTHA CHASE DO Ot Z88.0 ALLERGY STATUS TO PENICILLIN 01/01/2019 SALVATORE MARTHA COFFMAN Ot Z88.6 ALLERGY STATUS TO ANALGESIC AGENT [...] 05/24/2019 SHAHNAZ ARAIZA MD, Ot Z79.899 OTHER OPERATING ROOM COORDINATOR (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 THERAPY 05/24/2019 SHAHNAZ ARAIZA MD, [...] BOTH CERVIX AND UTER 05/24/2019 SHAHNAZ ARAIZA MD Ot 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 OTHER ORGANS [...] MD, Ot J45.909 UNSPECIFIED ASTHMA, UNCOMPLICATED 05/24/2019 HSAHNAZ ARAIZA MD, Ot K21 .9 GASTRO-ESOPHAGEAL REFLUX DISEASE WITHOUT 05/24/2019 SHAHNAZ ARAIZA MD, Ot L02.818 CUTANEOUS ABSCESS OF OTHER SITES 05/24/2019 SHAHNAZ ARAIZA MD Ot L03.116 CELLULITIS OF LEFT LOWER LIMB 05/24/2019 SHAHNAZ ARAIZA MD, Ot M54 .9 DORSALGIA, UNSPECIFIED 05/24/2019 SHAHNAZ ARAIZA MD Ot M79.89 OTHER SPECIFIED SOFT TISSUE DISORDERS 05/24/2019 SHAHNAZ ARAIZA MD, Ot Z68.41 BODY MASS INDEX (BMI) 40.0-44.9, ADULT 05/24/2019 SHAHNAZ ARAIZA MD, Ot Z79.899 OTHER OPERATING ROOM COORDINATOR (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 THERAPY 05/24/2019 SHAHNAZ ARAIZA MD, [...] ABSENCE OF OTHER ORGANS 05/30/2019 PRIETO FONSECA NEW ACCOUNTS REPRESENTATIVE Ot 724.2 LUMBAGO 05/30/2019 PRIETO FONSECA NEW ACCOUNTS REPRESENTATIVE Ot 724.3 SCIATICA 05/30/2019 PAPITO JACOBS MD Ot 790.29 OTHER ABNORMAL GLUCOSE 05/30/2019 PAPITO [...] UNSP, NOT INTRACTABLE, WITHOUT 06/07/2019 SHAHNAZ ARAIZA MD, Ot G47 .8 OTHER SLEEP DISORDERS 06/07/2019 SHAHNAZ ARAIZA MD Ot G89.29 OTHER CHRONIC PAIN 06/07/2019 SHAHNAZ ARAIZA MD Ot I10 ESSENTIAL (PRIMARY) HYPERTENSION 06/07/2019 SHAHNAZ ARAIZA MD Ot J45.909 UNSPECIFIED ASTHMA, UNCOMPLICATED 06/07/2019 SHAHNAZ ARAIZA MD Ot K21 .9 GASTRO-ESOPHAGEAL REFLUX DISEASE WITHOUT 06/07/2019 SHAHNAZ ARAIZA MD, Ot L02.818 CUTANEOUS ABSCESS OF OTHER SITES 06/07/2019 SHAHNAZ ARAIZA MD, Ot L03.116 CELLULITIS OF LEFT LOWER LIMB 06/07/2019 SHAHNAZ ARAIZA MD, Ot M54 .9 DORSALGIA, UNSPECIFIED 06/07/2019 SHAHNAZ ARAIZA MD, Ot M79.89 OTHER SPECIFIED SOFT TISSUE DISORDERS 06/07/2019 SHAHNAZ ARAIZA MD, Ot Z68.41 BODY MASS INDEX (BMI) 40.0-44.9, ADULT 06/07/2019 SHAHNAZ ARAIZA MD, Ot Z79.899 OTHER SHELTER (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 THERAPY 06/07/2019 SHAHNAZ ARAIZA MD, [...] TO OTH DRUG/MEDS/BIOL SUB 06/07/2019 SHAHNAZ ARAIZA MD Ot Z90.710 ACQUIRED ABSENCE OF BOTH CERVIX AND UTER 06/07/2019 SHAHNAZ ARAIZA MD, Ot 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 OTHER ORGANS 06/11/2019 SHAHNAZ ARAIZA MD Ot E66.01 MORBID (SEVERE) OBESITY DUE TO EXCESS CA 06/11/2019 SHAHNAZ ARAIZA MD, Ot F17.210 NICOTINE DEPENDENCE, CIGARETTES, UNCOMPL 06/11/2019 SHAHNAZ ARAIZA MD, Ot F32 .9 MAJOR DEPRESSIVE DISORDER, SINGLE EPISOD 06/11/2019 SHAHNAZ ARAIZA MD, Ot F41 .9 ANXIETY DISORDER, UNSPECIFIED 06/11/2019 SHAHNAZ ARAIZA MD Ot G40.909 EPILEPSY, UNSP, NOT INTRACTABLE, WITHOUT 06/11/2019 SHAHNAZ ARAIZA MD, Ot G47 .8 OTHER SLEEP DISORDERS 06/11/2019 SHAHNAZ ARAIZA MD, Ot G89.29 OTHER CHRONIC PAIN 06/11/2019 SHAHNAZ ARAIZA MD, Ot I10 ESSENTIAL (PRIMARY) HYPERTENSION 06/11/2019 SHAHNAZ ARAIZA MD, Ot J45.909 UNSPECIFIED ASTHMA, UNCOMPLICATED 06/11/2019 SHAHNAZ ARAIZA MD, Ot K21 .9 GASTRO-ESOPHAGEAL REFLUX DISEASE WITHOUT 06/11/2019 SHAHNAZ ARAIZA MD Ot L02.818 CUTANEOUS ABSCESS OF OTHER SITES 06/11/2019 SHAHNAZ ARAIZA MD, Ot L03.116 CELLULITIS OF LEFT LOWER LIMB 06/11/2019 SHAHNAZ ARAIZA MD, Ot M54 .9 DORSALGIA, UNSPECIFIED 06/11/2019 SHAHNAZ ARAIZA MD, Ot M79.89 OTHER SPECIFIED SOFT TISSUE DISORDERS 06/11/2019 SHAHNAZ ARAIZA MD, Ot Z68.41 BODY MASS INDEX (BMI) 40.0-44.9, ADULT 06/11/2019 SHAHNAZ ARAIZA MD, Ot Z79.899 OTHER OPERATING ROOM COORDINATOR (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 THERAPY 06/11/2019 SHAHNAZ ARAIZA MD, [...] BOTH CERVIX AND UTER 06/11/2019 SHAHNAZ ARAIZA MD Ot 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 OTHER ORGANS 06/18/2019 ONESIMO MOHAN DO Ot M25.562 PAIN IN LEFT KNEE 06/18/2019 ONESIMO MOHAN DO Ot M79.662 PAIN IN LEFT LOWER LEG 06/18/2019 [facility]818 ENCOUNTER FOR OTHER PREPROCEDURAL EXAMIN 06/19/2019 JOSE G JOYCE, SHAHNAZ Ybarra Ot L03.313 CELLULITIS OF CHEST WALL 06/19/2019 MOHAN DOONESIMO Ot E66. 9 OBESITY, UNSPECIFIED 06/19/2019 MOHAN ONESIMO COFFMAN Ot E78. 00 PURE HYPERCHOLESTEROLEMIA, UNSPECIFIED 06/19/2019 MOHAN DOONESIMO Ot F17.210 NICOTINE DEPENDENCE, CIGARETTES, UNCOMPL 06/19/2019 MOHAN DOONESIMO Ot F32. 9 MAJOR DEPRESSIVE DISORDER, SINGLE EPISOD 06/19/2019 MOHAN DOONESIMO Ot F41. 9 ANXIETY DISORDER, UNSPECIFIED 06/19/2019 [facility] G62. 9 POLYNEUROPATHY, UNSPECIFIED 06/19/2019 MOHAN DOONESIMO Ot I10 ESSENTIAL (PRIMARY) HYPERTENSION 06/19/2019 MOHAN DOONESIMO Ot J43. 9 EMPHYSEMA, UNSPECIFIED 06/19/2019 MOHAN DOONESIMO Ot K21. 9 GASTRO-ESOPHAGEAL REFLUX DISEASE WITHOUT 06/19/2019 MOHAN DOONESIMO Ot L02.818 CUTANEOUS ABSCESS OF OTHER SITES 06/19/2019 MOHAN DOONESIMO Ot M19. 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 32 SCIATICA, LEFT SIDE 06/19/2019 MOHAN DOONESIMO Ot Z68. 37 BODY MASS INDEX (BMI) 37.0-37.9, ADULT 06/19/2019 MOHAN ONESIMO COFFMAN Ot Z79.899 OTHER SHELTER (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 THERAPY 06/19/2019 MOHAN ONESIMO COFFMAN Ot Z80. 9 FAMILY HISTORY OF MALIGNANT NEOPLASM, UN 06/19/2019 MOHAN ONESIMO COFFMAN Ot Z83. 3 FAMILY HISTORY OF DIABETES MELLITUS 06/19/2019 MOHAN DOONESIMO Ot Z86. 73 PRSNL HX OF TIA (TIA), AND CEREB INFRC W 06/19/2019 [facility] Z88. 0 ALLERGY STATUS TO PENICILLIN 06/19/2019 [facility] Z88. 5 ALLERGY STATUS TO NARCOTIC AGENT STATUS 06/19/2019 MOHAN DOONESIMO Ot Z88. 8 ALLERGY STATUS TO OTH DRUG/MEDS/BIOL SUB 06/19/2019 MOHAN DOONESIMO Ot Z90.710 ACQUIRED ABSENCE OF BOTH CERVIX AND UTER 06/19/2019 MOHAN DOONESIMO Ot Z90. 89 ACQUIRED ABSENCE OF OTHER ORGANS 06/21/2019 MOHAN DOONESIMO Ot E66. 9 OBESITY, UNSPECIFIED 06/21/2019 MOHAN DOONESIMO Ot E78. 00 PURE HYPERCHOLESTEROLEMIA, UNSPECIFIED 06/21/2019 MOHAN DOONESIMO Ot F17.210 NICOTINE DEPENDENCE, CIGARETTES, UNCOMPL 06/21/2019 MOHAN ONESIMO COFFMAN Ot F32. 9 MAJOR DEPRESSIVE DISORDER, SINGLE EPISOD 06/21/2019 MOHAN DOONESIMO Ot F41. 9 ANXIETY DISORDER, UNSPECIFIED 06/21/2019 [facility] 9 POLYNEUROPATHY, UNSPECIFIED 06/21/2019 MOHAN ONESIMO COFFMAN Ot I10 ESSENTIAL (PRIMARY) HYPERTENSION 06/21/2019 MOHAN ONESIMO COFFMAN Ot J43. 9 EMPHYSEMA, UNSPECIFIED 06/21/2019 MOHAN ONESIMO COFFMAN Ot K21. 9 GASTRO-ESOPHAGEAL REFLUX DISEASE WITHOUT 06/21/2019 ONESIMO MOHAN DO Ot L02.818 CUTANEOUS ABSCESS OF OTHER SITES 06/21/2019 MOHAN ONESIMO COFFMAN Ot M19. 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 32 SCIATICA, LEFT SIDE 06/21/2019 MOHAN ONESIMO COFFMAN Ot Z68. 37 BODY MASS INDEX (BMI) 37.0-37.9, ADULT 06/21/2019 ONESIMO MOHAN DO Ot Z79.899 OTHER SHELTER (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 THERAPY 06/21/2019 ONESIMO MOHAN DO Ot Z80. 9 FAMILY HISTORY OF MALIGNANT NEOPLASM, UN 06/21/2019 ONESIMO MOHAN DO Ot Z83. 3 FAMILY HISTORY OF DIABETES MELLITUS 06/21/2019 ONESIMO MOHAN DO Ot Z86. 73 PRSNL HX OF TIA (TIA), AND CEREB INFRC W 06/21/2019 ONESIMO MOHAN DO Ot Z88. 0 ALLERGY STATUS TO PENICILLIN 06/21/2019 ONESIMO MOHAN DO Ot Z88. 5 ALLERGY STATUS TO NARCOTIC AGENT STATUS 06/21/2019 MOHAN ONESIMO COFFMAN Ot Z88. 8 ALLERGY STATUS TO OTH DRUG/MEDS/BIOL SUB 06/21/2019 ONESIMO MOHAN DO Ot Z90.710 ACQUIRED ABSENCE OF BOTH CERVIX AND UTER 06/21/2019 ONESIMO MOHAN DO Ot Z90. 89 ACQUIRED ABSENCE OF OTHER ORGANS 06/21/2019 ONESIMO MOHAN DO Ot Z01.818 ENCOUNTER FOR OTHER PREPROCEDURAL EXAMIN 06/22/2019 ONESIMO MOHAN DO Ot E66. 9 OBESITY, UNSPECIFIED 06/22/2019 ONESIMO MOHAN DO Ot E78. 00 PURE HYPERCHOLESTEROLEMIA, UNSPECIFIED 06/22/2019 ONESIMO MOHAN DO Ot F17.210 NICOTINE DEPENDENCE, CIGARETTES, UNCOMPL 06/22/2019 ONESIMO MOHAN DO Ot F32. 9 MAJOR DEPRESSIVE DISORDER, SINGLE EPISOD 06/22/2019 ONESIMO MOHAN DO Ot F41. 9 ANXIETY DISORDER, UNSPECIFIED 06/22/2019 ONESIMO MOHAN DO Ot G62. 9 POLYNEUROPATHY, UNSPECIFIED 06/22/2019 ONESIMO MOHAN DO Ot I10 ESSENTIAL (PRIMARY) HYPERTENSION 06/22/2019 ONESIMO MOHAN DO Ot J43. 9 EMPHYSEMA, UNSPECIFIED 06/22/2019 ONESIMO MOHAN DO Ot K21. 9 GASTRO-ESOPHAGEAL REFLUX DISEASE WITHOUT 06/22/2019 ONESIMO MOHAN DO Ot L02.818 CUTANEOUS ABSCESS OF OTHER SITES 06/22/2019 ONESIMO MOHAN DO Ot M19. 90 UNSPECIFIED OSTEOARTHRITIS, UNSPECIFIED 06/22/2019 ONESIMO MOHAN DO Ot M47.896 OTHER SPONDYLOSIS, LUMBAR REGION 06/22/2019 ONESIMO MOHAN DO Ot M51. 36 OTHER INTERVERTEBRAL DISC DEGENERATION, 06/22/2019 [facility] M54. 32 SCIATICA, LEFT SIDE 06/22/2019 MOHAN DOONESIMO Ot Z68. 37 BODY MASS INDEX (BMI) 37.0-37.9, ADULT 06/22/2019 [facility] Z79.899 OTHER SHELTER (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 THERAPY 06/22/2019 [facility] Z80. 9 FAMILY HISTORY OF MALIGNANT NEOPLASM, UN 06/22/2019 [facility] Z83. 3 FAMILY HISTORY OF DIABETES MELLITUS 06/22/2019 [facility] Z86. 73 PRSNL HX OF TIA (TIA), AND CEREB INFRC W 06/22/2019 [facility] Z88. 0 ALLERGY STATUS TO PENICILLIN 06/22/2019 [facility] Z88. 5 ALLERGY STATUS TO NARCOTIC AGENT STATUS 06/22/2019 [facility] Z88. 8 ALLERGY STATUS TO OT DRUG/MEDS/BIOL SUB 06/22/2019 [facility] Z90.710 ACQUIRED ABSENCE OF BOTH CERVIX AND UTER 06/22/2019 [facility] Z90. 89 ACQUIRED ABSENCE OF OTHER ORGANS 06/24/2019 [facility] Z01.818 ENCOUNTER FOR OTHER PREPROCEDURAL EXAMIN 06/27/2019 PRIETO FONSECA NEW ACCOUNTS REPRESENTATIVE Ot 724.2 LUMBAGO 06/27/2019 PRIETO FONSECA NEW ACCOUNTS REPRESENTATIVE Ot 724.3 SCIATICA 06/27/2019 REYNALDO JOYCE, PAPITO [...] Ot L03.313 CELLULITIS OF CHEST WALL 06/27/2019 [facility] M25.562 PAIN IN LEFT KNEE 06/27/2019 [facility], ONESIMO Quinn Ot M79.662 PAIN IN LEFT LOWER LEG 06/27/2019 [facility] M25.562 PAIN IN LEFT KNEE 06/27/2019 [facility], ONESIMO Quinn Ot M79.662 PAIN IN LEFT LOWER LEG 06/28/2019 SHAHNAZ ARAIZA MD Ot E66.01 MORBID (SEVERE) OBESITY DUE TO EXCESS CA 06/28/2019 SHAHNAZ ARAIZA MD Ot F17.210 NICOTINE DEPENDENCE, CIGARETTES, UNCOMPL 06/28/2019 SHAHNAZ ARAIZA MD Ot F32 .9 MAJOR DEPRESSIVE DISORDER, SINGLE EPISOD 06/28/2019 SHAHNAZ ARAIZA MD Ot F41 .9 ANXIETY DISORDER, UNSPECIFIED 06/28/2019 SHAHNAZ ARAIZA MD Ot G40.909 EPILEPSY, UNSP, NOT INTRACTABLE, WITHOUT 06/28/2019 SHAHNAZ ARIAZA MD Ot G47 .8 OTHER SLEEP DISORDERS 06/28/2019 SHAHNAZ ARAIZA MD Ot G89.29 OTHER CHRONIC PAIN 06/28/2019 SHAHNAZ ARAIZA MD Ot I10 ESSENTIAL (PRIMARY) HYPERTENSION 06/28/2019 SHAHNAZ ARAIZA MD Ot J45.909 UNSPECIFIED ASTHMA, UNCOMPLICATED 06/28/2019 SHAHNAZ ARAIZA MD Ot K21 .9 GASTRO-ESOPHAGEAL REFLUX DISEASE WITHOUT 06/28/2019 SHAHNAZ ARAIZA MD Ot L02.818 CUTANEOUS ABSCESS OF OTHER SITES 06/28/2019 SHAHNAZ ARAIZA MD Ot L03.116 CELLULITIS OF LEFT LOWER LIMB 06/28/2019 SHAHNAZ ARAIZA MD Ot M54 .9 DORSALGIA, UNSPECIFIED 06/28/2019 SHAHNAZ ARAIZA MD Ot M79.89 OTHER SPECIFIED SOFT TISSUE DISORDERS 06/28/2019 SHAHNAZ ARAIZA MD Ot Z68.41 BODY MASS INDEX (BMI) 40.0-44.9, ADULT 06/28/2019 SHAHNAZ ARAIZA MD Ot Z79.899 OTHER SHELTER (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 THERAPY 06/28/2019 SHAHNAZ ARAIZA MD Ot Z82 .3 FAMILY HISTORY OF STROKE 06/28/2019 SHAHNAZ ARAIZA MD, Ot Z82.49 FAMILY HX OF ISCHEM HEART DIS AND OTH DI 06/28/2019 SHAHNAZ ARAIZA MD, Ot Z83 .3 FAMILY HISTORY OF DIABETES MELLITUS 06/28/2019 SHAHNAZ ARAIZA MD, Ot Z86.73 PRSNL HX OF TIA (TIA), AND CEREB INFRC W 06/28/2019 SHAHNAZ ARAIZA MD, Ot Z88 .0 ALLERGY STATUS TO PENICILLIN 06/28/2019 SHAHNAZ ARAIZA MD, Ot Z88 .8 ALLERGY STATUS TO OTH DRUG/MEDS/BIOL SUB 06/28/2019 SHAHNAZ ARAIZA MD, Ot Z90.710 ACQUIRED ABSENCE OF BOTH CERVIX AND UTER 06/28/2019 SHAHNAZ ARAIZA MD, Ot 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 OTHER ORGANS 07/22/2019 SHAHNAZ ARAIZA MD, Ot L03.313 CELLULITIS OF CHEST WALL 07/23/2019 MARK COFFMAN LEWIS Ot A41.89 OTHER SPECIFIED SEPSIS 07/23/2019 SUMIT FLORES DOI Ot D70.3 NEUTROPENIA DUE TO INFECTION 07/23/2019 MARK COFFMAN LEWIS Ot E66.01 MORBID (SEVERE) OBESITY DUE TO EXCESS CA 07/23/2019 MARK COFFMAN LEWIS Ot E86.0 DEHYDRATION 07/23/2019 MARK COFFMAN LEWIS Ot F12.90 CANNABIS USE, UNSPECIFIED, UNCOMPLICATED 07/23/2019 MARK COFFMAN LEWIS Ot F17.21 0 NICOTINE DEPENDENCE, CIGARETTES, UNCOMPL 07/23/2019 MARK COFFMAN LEWIS Ot F32.9 MAJOR DEPRESSIVE DISORDER, SINGLE EPISOD 07/23/2019 MARK COFFMAN LEWIS Ot F41.9 ANXIETY DISORDER, UNSPECIFIED 07/23/2019 MARK COFFMAN LEWIS Ot 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, UNSP, NOT INTRACTABLE, WITHOUT 07/23/2019 MARK COFFMAN LEWIS Ot I10 ESSENTIAL (PRIMARY) HYPERTENSION 07/23/2019 MARK COFFMAN LEWIS Ot I21.A1 MYOCARDIAL INFARCTION TYPE 2 07/23/2019 MARK COFFMAN LEWIS Ot J18.9 PNEUMONIA, UNSPECIFIED ORGANISM 07/23/2019 MARK COFFMAN LEIWS Ot K21.9 GASTRO-ESOPHAGEAL REFLUX DISEASE WITHOUT 07/23/2019 MARK COFFMAN LEWIS Ot K58.9 IRRITABLE BOWEL SYNDROME WITHOUT DIARRHE 07/23/2019 FLORES DO, LEWIS Ot N32.81 OVERACTIVE BLADDER 07/23/2019 FLORES DO, LEWIS Ot R65.21 SEVERE SEPSIS WITH SEPTIC SHOCK 07/23/2019 FLORES DO, LEWIS Ot Z68.41 BODY MASS INDEX (BMI) 40.0-44.9, ADULT 07/23/2019 FLORES DO, LEWIS Ot Z90.71 0 ACQUIRED ABSENCE OF BOTH CERVIX AND UTER 07/23/2019 FLORES DO, LEWIS Ot Z90.72 2 ACQUIRED ABSENCE OF OVARIES, BILATERAL 07/23/2019 FLORES DO, LEWIS Ot 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 OTHER ORGANS 08/07/2019 FLORES DO, LEWIS Ot A41.89 OTHER SPECIFIED SEPSIS 08/07/2019 FLORES DO, LEWIS Ot D70.3 NEUTROPENIA DUE TO INFECTION 08/07/2019 FLORES DO, LEWIS Ot E66.01 MORBID (SEVERE) OBESITY DUE TO EXCESS CA 08/07/2019 FLORES DO, LEWIS Ot E86.0 DEHYDRATION 08/07/2019 FLORES DO, LEWIS Ot F12.90 CANNABIS USE, UNSPECIFIED, UNCOMPLICATED 08/07/2019 FLORES DO, LEWIS Ot F17.21 0 NICOTINE DEPENDENCE, CIGARETTES, UNCOMPL 08/07/2019 FLORES DO, LEWIS Ot F32.9 MAJOR DEPRESSIVE DISORDER, SINGLE EPISOD 08/07/2019 FLORES DO, LEWIS Ot F41.9 ANXIETY DISORDER, UNSPECIFIED 08/07/2019 FLORES DO, LEWIS Ot 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, UNSP, NOT INTRACTABLE, WITHOUT 08/07/2019 FLORES DO, LEWIS Ot I10 ESSENTIAL (PRIMARY) HYPERTENSION 08/07/2019 FLORES DO, LEWIS Ot I21.A1 MYOCARDIAL INFARCTION TYPE 2 08/07/2019 FLORES DO, LEWIS Ot J18.9 PNEUMONIA, UNSPECIFIED ORGANISM 08/07/2019 FLORES DO, LEWIS Ot K21.9 GASTRO-ESOPHAGEAL REFLUX DISEASE WITHOUT 08/07/2019 FLORES DO, LEWIS Ot K58.9 IRRITABLE BOWEL SYNDROME WITHOUT DIARRHE 08/07/2019 FLORES DO, LEWIS Ot N32.81 OVERACTIVE BLADDER 08/07/2019 FLORES DO, LEWIS Ot R65.21 SEVERE SEPSIS WITH SEPTIC SHOCK 08/07/2019 FLORES DO, LEWIS Ot Z68.41 BODY MASS INDEX (BMI) 40.0-44.9, ADULT 08/07/2019 FLORES DO, LEWIS Ot Z90.71 0 ACQUIRED ABSENCE OF BOTH CERVIX AND UTER 08/07/2019 FLORES DO, LEWIS Ot Z90.72 2 ACQUIRED ABSENCE OF OVARIES, BILATERAL 08/07/2019 FLORES DO, LEWIS Ot 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 OTHER ORGANS 08/07/2019 FLORES DO, LEWIS Ot A41.89 OTHER SPECIFIED SEPSIS 08/07/2019 FLORES DO, LEWIS Ot D70.3 NEUTROPENIA DUE TO INFECTION 08/07/2019 FLORES DO, LEWIS Ot E66.01 MORBID (SEVERE) OBESITY DUE TO EXCESS CA 08/07/2019 FLORES DO, LEWIS Ot E86.0 DEHYDRATION 08/07/2019 FLORES DO, LEWIS Ot F12.90 CANNABIS USE, UNSPECIFIED, UNCOMPLICATED 08/07/2019 FLORES DO, LEWIS Ot F17.21 0 NICOTINE DEPENDENCE, CIGARETTES, UNCOMPL 08/07/2019 FLORES DO, LEWIS Ot F32.9 MAJOR DEPRESSIVE DISORDER, SINGLE EPISOD 08/07/2019 FLORES DO, LEWIS Ot F41.9 ANXIETY DISORDER, UNSPECIFIED 08/07/2019 FLORES DO, LEWIS Ot 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, UNSP, NOT INTRACTABLE, WITHOUT 08/07/2019 FLORES DO, LEWIS Ot I10 ESSENTIAL (PRIMARY) HYPERTENSION 08/07/2019 FLORES DO, LEWIS Ot I21.A1 MYOCARDIAL INFARCTION TYPE 2 08/07/2019 FLORES DO, LEWIS Ot J18.9 PNEUMONIA, UNSPECIFIED ORGANISM 08/07/2019 FLORES DO, LEWIS Ot K21.9 GASTRO-ESOPHAGEAL REFLUX DISEASE WITHOUT 08/07/2019 FLORES DO, LEWIS Ot K58.9 IRRITABLE BOWEL SYNDROME WITHOUT DIARRHE 08/07/2019 FLORES DO, LEWIS Ot N32.81 OVERACTIVE BLADDER 08/07/2019 FLORES DO, LEWIS Ot R65.21 SEVERE SEPSIS WITH SEPTIC SHOCK 08/07/2019 FLORES DO, LEWIS Ot Z68.41 BODY MASS INDEX (BMI) 40.0-44.9, ADULT 08/07/2019 FLORES DO, LEWIS Ot Z90.71 0 ACQUIRED ABSENCE OF BOTH CERVIX AND UTER 08/07/2019 FLORES DO, LEWIS Ot Z90.72 2 ACQUIRED ABSENCE OF OVARIES, BILATERAL 08/07/2019 FLORES DO, LEWIS Ot 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 OTHER ORGANS 08/07/2019 FLORES DO, LEWIS Ot A41.89 OTHER SPECIFIED SEPSIS 08/07/2019 FLORES DO, LEWIS Ot D70.3 NEUTROPENIA DUE TO INFECTION 08/07/2019 FLORES DO, LEWIS Ot E66.01 MORBID (SEVERE) OBESITY DUE TO EXCESS CA 08/07/2019 FLORES DO, LEWIS Ot E86.0 DEHYDRATION 08/07/2019 FLORES DO, LEWIS Ot F12.90 CANNABIS USE, UNSPECIFIED, UNCOMPLICATED 08/07/2019 FLORES DO, LEWIS Ot F17.21 0 NICOTINE DEPENDENCE, CIGARETTES, UNCOMPL 08/07/2019 FLORES DO, LEWIS Ot F32.9 MAJOR DEPRESSIVE DISORDER, SINGLE EPISOD 08/07/2019 FLORES DO, LEWIS Ot F41.9 ANXIETY DISORDER, UNSPECIFIED 08/07/2019 FLORES DO, LEWIS Ot 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, UNSP, NOT INTRACTABLE, WITHOUT 08/07/2019 FLORES DO, LEWIS Ot I10 ESSENTIAL (PRIMARY) HYPERTENSION 08/07/2019 FLORES DO, LEWIS Ot I21.A1 MYOCARDIAL INFARCTION TYPE 2 08/07/2019 FLORES DO, LEWIS Ot J18.9 PNEUMONIA, UNSPECIFIED ORGANISM 08/07/2019 FLORES DO, LEWIS Ot K21.9 GASTRO-ESOPHAGEAL REFLUX DISEASE WITHOUT 08/07/2019 FLORES DO, LEWIS Ot K58.9 IRRITABLE BOWEL SYNDROME WITHOUT DIARRHE 08/07/2019 FLORES DO, LEWIS Ot N32.81 OVERACTIVE BLADDER 08/07/2019 FLORES DO, LEWIS Ot R65.21 SEVERE SEPSIS WITH SEPTIC SHOCK 08/07/2019 FLORES DO, LEWIS Ot Z68.41 BODY MASS INDEX (BMI) 40.0-44.9, ADULT 08/07/2019 FLORES DO, LEWIS Ot Z90.71 0 ACQUIRED ABSENCE OF BOTH CERVIX AND UTER 08/07/2019 FLORES DO, LEWIS Ot Z90.72 2 ACQUIRED ABSENCE OF OVARIES, BILATERAL 08/07/2019 FLORES DO, LEWIS Ot 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 OTHER ORGANS 08/07/2019 FLORES DO, LEWIS Ot A41.89 OTHER SPECIFIED SEPSIS 08/07/2019 FLORES DO, LEWIS Ot D70.3 NEUTROPENIA DUE TO INFECTION 08/07/2019 FLORES DO, LEWIS Ot E66.01 MORBID (SEVERE) OBESITY DUE TO EXCESS CA 08/07/2019 FLORES DO, LEWIS Ot E86.0 DEHYDRATION 08/07/2019 FLORES DO, LEWIS Ot F12.90 CANNABIS USE, UNSPECIFIED, UNCOMPLICATED 08/07/2019 FLORES DO, LEWIS Ot F17.21 0 NICOTINE DEPENDENCE, CIGARETTES, UNCOMPL 08/07/2019 FLORES DO, LEWIS Ot F32.9 MAJOR DEPRESSIVE DISORDER, SINGLE EPISOD 08/07/2019 FLORES DO, LEWIS Ot F41.9 ANXIETY DISORDER, UNSPECIFIED 08/07/2019 FLORES DO, LEWIS Ot 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, UNSP, NOT INTRACTABLE, WITHOUT 08/07/2019 FLORES DO, LEWIS Ot I10 ESSENTIAL (PRIMARY) HYPERTENSION 08/07/2019 FLORES DO, LEWIS Ot I21.A1 MYOCARDIAL INFARCTION TYPE 2 08/07/2019 FLORES DO, LEWIS Ot J18.9 PNEUMONIA, UNSPECIFIED ORGANISM 08/07/2019 FLORES DO, LEWIS Ot K21.9 GASTRO-ESOPHAGEAL REFLUX DISEASE WITHOUT 08/07/2019 FLORES DO, LEWIS Ot K58.9 IRRITABLE BOWEL SYNDROME WITHOUT DIARRHE 08/07/2019 FLORES DO, LEWIS Ot N32.81 OVERACTIVE BLADDER 08/07/2019 FLORES DO, LEWIS Ot R65.21 SEVERE SEPSIS WITH SEPTIC SHOCK 08/07/2019 FLORES DO, LEWIS Ot Z68.41 BODY MASS INDEX (BMI) 40.0-44.9, ADULT 08/07/2019 FLORES DO, LEWIS Ot Z90.71 0 ACQUIRED ABSENCE OF BOTH CERVIX AND UTER 08/07/2019 FLORES DO, LEWIS Ot Z90.72 2 ACQUIRED ABSENCE OF OVARIES, BILATERAL 08/07/2019 FLORES DO, LEWIS Ot 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 OTHER ORGANS 08/07/2019 FLORES DO, LEWIS Ot A41.89 OTHER SPECIFIED SEPSIS 08/07/2019 FLORES DO, LEWIS Ot D70.3 NEUTROPENIA DUE TO INFECTION 08/07/2019 FLORES DO, LEWIS Ot E66.01 MORBID (SEVERE) OBESITY DUE TO EXCESS CA 08/07/2019 FLORES DO, LEWIS Ot E86.0 DEHYDRATION 08/07/2019 FLORES DO, LEWIS Ot F12.90 CANNABIS USE, UNSPECIFIED, UNCOMPLICATED 08/07/2019 FLORES DO, LEWIS Ot F17.21 0 NICOTINE DEPENDENCE, CIGARETTES, UNCOMPL 08/07/2019 FLORES DO, LEWIS Ot F32.9 MAJOR DEPRESSIVE DISORDER, SINGLE EPISOD 08/07/2019 FLORES DO, LEWIS Ot F41.9 ANXIETY DISORDER, UNSPECIFIED 08/07/2019 FLORES DO, LEWIS Ot 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, UNSP, NOT INTRACTABLE, WITHOUT 08/07/2019 FLORES DO, LEWIS Ot I10 ESSENTIAL (PRIMARY) HYPERTENSION 08/07/2019 FLORES DO, LEWIS Ot I21.A1 MYOCARDIAL INFARCTION TYPE 2 08/07/2019 FLORES DO, LEWIS Ot J18.9 PNEUMONIA, UNSPECIFIED ORGANISM 08/07/2019 FLORES DO, LEWIS Ot K21.9 GASTRO-ESOPHAGEAL REFLUX DISEASE WITHOUT 08/07/2019 FLORES DO, LEWIS Ot K58.9 IRRITABLE BOWEL SYNDROME WITHOUT DIARRHE 08/07/2019 FLORES DO, LEWIS Ot N32.81 OVERACTIVE BLADDER 08/07/2019 FLORES DO, LEWIS Ot R65.21 SEVERE SEPSIS WITH SEPTIC SHOCK 08/07/2019 FLORES DO, LEWIS Ot Z68.41 BODY MASS INDEX (BMI) 40.0-44.9, ADULT 08/07/2019 FLORES DO, LEWIS Ot Z90.71 0 ACQUIRED ABSENCE OF BOTH CERVIX AND UTER 08/07/2019 FLORES DO, LEWIS Ot Z90.72 2 ACQUIRED ABSENCE OF OVARIES, BILATERAL 08/07/2019 FLORES DO, LEWIS Ot 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 OTHER ORGANS 08/07/2019 FLORES DO, LEWIS Ot A41.89 OTHER SPECIFIED SEPSIS 08/07/2019 FLORES DO, LEWIS Ot D70.3 NEUTROPENIA DUE TO INFECTION 08/07/2019 FLORES DO, LEWIS Ot E66.01 MORBID (SEVERE) OBESITY DUE TO EXCESS CA 08/07/2019 FLORES DO, LEWIS Ot E86.0 DEHYDRATION 08/07/2019 FLORES DO, LEWIS Ot F12.90 CANNABIS USE, UNSPECIFIED, UNCOMPLICATED 08/07/2019 FLORES DO, LEWIS Ot F17.21 0 NICOTINE DEPENDENCE, CIGARETTES, UNCOMPL 08/07/2019 FLORES DO, LEWIS Ot F32.9 MAJOR DEPRESSIVE DISORDER, SINGLE EPISOD 08/07/2019 FLORES DO, LEWIS Ot F41.9 ANXIETY DISORDER, UNSPECIFIED 08/07/2019 FLORES DO, LEWIS Ot 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, UNSP, NOT INTRACTABLE, WITHOUT 08/07/2019 FLORES DO, LEWIS Ot I10 ESSENTIAL (PRIMARY) HYPERTENSION 08/07/2019 FLORES DO, LEWIS Ot I21.A1 MYOCARDIAL INFARCTION TYPE 2 08/07/2019 FLORES DO, LEWIS Ot J18.9 PNEUMONIA, UNSPECIFIED ORGANISM 08/07/2019 FLORES DO, LEWIS Ot K21.9 GASTRO-ESOPHAGEAL REFLUX DISEASE WITHOUT 08/07/2019 FLORES DO, LEWIS Ot K58.9 IRRITABLE BOWEL SYNDROME WITHOUT DIARRHE 08/07/2019 FLORES DO, LEWIS Ot N32.81 OVERACTIVE BLADDER 08/07/2019 FLORES DO, LEWIS Ot R65.21 SEVERE SEPSIS WITH SEPTIC SHOCK 08/07/2019 FLORES DO, LEWIS Ot Z68.41 BODY MASS INDEX (BMI) 40.0-44.9, ADULT 08/07/2019 FLORES DO, LEWIS Ot Z90.71 0 ACQUIRED ABSENCE OF BOTH CERVIX AND UTER 08/07/2019 FLORES DO, LEWIS Ot Z90.72 2 ACQUIRED ABSENCE OF OVARIES, BILATERAL 08/07/2019 FLORES DO, LEWIS Ot 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 OTHER ORGANS 08/07/2019 FLORES DO, LEWIS Ot A41.89 OTHER SPECIFIED SEPSIS 08/07/2019 FLORES DO, LEWIS Ot D70.3 NEUTROPENIA DUE TO INFECTION 08/07/2019 FLORES DO, LEWIS Ot E66.01 MORBID (SEVERE) OBESITY DUE TO EXCESS CA 08/07/2019 FLORES DO, LEWIS Ot E86.0 DEHYDRATION 08/07/2019 FLORES DO, LEWIS Ot F12.90 CANNABIS USE, UNSPECIFIED, UNCOMPLICATED 08/07/2019 FLORES DO, LEWIS Ot F17.21 0 NICOTINE DEPENDENCE, CIGARETTES, UNCOMPL 08/07/2019 FLORES DO, LEWIS Ot F32.9 MAJOR DEPRESSIVE DISORDER, SINGLE EPISOD 08/07/2019 FLORES DO, LEWIS Ot F41.9 ANXIETY DISORDER, UNSPECIFIED 08/07/2019 FLORES DO, LEWIS Ot 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, UNSP, NOT INTRACTABLE, WITHOUT 08/07/2019 FLORES DO, LEWIS Ot I10 ESSENTIAL (PRIMARY) HYPERTENSION 08/07/2019 FLORES DO, LEWIS Ot I21.A1 MYOCARDIAL INFARCTION TYPE 2 08/07/2019 FLORES DO, LEWIS Ot J18.9 PNEUMONIA, UNSPECIFIED ORGANISM 08/07/2019 FLORES DO, LEWIS Ot K21.9 GASTRO-ESOPHAGEAL REFLUX DISEASE WITHOUT 08/07/2019 FLORES DO, LEWIS Ot K58.9 IRRITABLE BOWEL SYNDROME WITHOUT DIARRHE 08/07/2019 FLORES DO, LEWIS Ot N32.81 OVERACTIVE BLADDER 08/07/2019 FLORES DO, LEWIS Ot R65.21 SEVERE SEPSIS WITH SEPTIC SHOCK 08/07/2019 FLORES DO, LEWIS Ot Z68.41 BODY MASS INDEX (BMI) 40.0-44.9, ADULT 08/07/2019 FLORES DO, LEWIS Ot Z90.71 0 ACQUIRED ABSENCE OF BOTH CERVIX AND UTER 08/07/2019 FLORES DO, LEWIS Ot Z90.72 2 ACQUIRED ABSENCE OF OVARIES, BILATERAL 08/07/2019 FLORES DO, LEWIS Ot 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 OTHER ORGANS 08/07/2019 FLORES DO, LEWIS Ot A41.89 OTHER SPECIFIED SEPSIS 08/07/2019 FLORES DO, LEWIS Ot D70.3 NEUTROPENIA DUE TO INFECTION 08/07/2019 FLORES DO, LEWIS Ot E66.01 MORBID (SEVERE) OBESITY DUE TO EXCESS CA 08/07/2019 FLORES DO, LEWIS Ot E86.0 DEHYDRATION 08/07/2019 FLORES DO, LEWIS Ot F12.90 CANNABIS USE, UNSPECIFIED, UNCOMPLICATED 08/07/2019 FLORES DO, LEWIS Ot F17.21 0 NICOTINE DEPENDENCE, CIGARETTES, UNCOMPL 08/07/2019 FLORES DO, LEWIS Ot F32.9 MAJOR DEPRESSIVE DISORDER, SINGLE EPISOD 08/07/2019 FLORES DO, LEWIS Ot F41.9 ANXIETY DISORDER, UNSPECIFIED 08/07/2019 FLORES DO, LEWIS Ot 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, UNSP, NOT INTRACTABLE, WITHOUT 08/07/2019 FLORES DO, LEWIS Ot I10 ESSENTIAL (PRIMARY) HYPERTENSION 08/07/2019 FLORES DO, LEWIS Ot I21.A1 MYOCARDIAL INFARCTION TYPE 2 08/07/2019 FLORES DO, LEWIS Ot J18.9 PNEUMONIA, UNSPECIFIED ORGANISM 08/07/2019 FLORES DO, LEWIS Ot K21.9 GASTRO-ESOPHAGEAL REFLUX DISEASE WITHOUT 08/07/2019 FLORES DO, LEWIS Ot K58.9 IRRITABLE BOWEL SYNDROME WITHOUT DIARRHE 08/07/2019 FLORES DO, LEWIS Ot N32.81 OVERACTIVE BLADDER 08/07/2019 FLORES DO, LEWIS Ot R65.21 SEVERE SEPSIS WITH SEPTIC SHOCK 08/07/2019 FLORES DO, LEWIS Ot Z68.41 BODY MASS INDEX (BMI) 40.0-44.9, ADULT 08/07/2019 FLORES DO, LEWIS Ot Z90.71 0 ACQUIRED ABSENCE OF BOTH CERVIX AND UTER 08/07/2019 FLORES DO, LEWIS Ot Z90.72 2 ACQUIRED ABSENCE OF OVARIES, BILATERAL 08/07/2019 FLORES DO, LEWIS Ot 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 OTHER ORGANS 08/07/2019 FLORES DO, LEWIS Ot A41.89 OTHER SPECIFIED SEPSIS 08/07/2019 FLORES DO, LEWIS Ot D70.3 NEUTROPENIA DUE TO INFECTION 08/07/2019 FLORES DO, LEWIS Ot E66.01 MORBID (SEVERE) OBESITY DUE TO EXCESS CA 08/07/2019 FLORES DO, LEWIS Ot E86.0 DEHYDRATION 08/07/2019 FLORES DO, LEWIS Ot F12.90 CANNABIS USE, UNSPECIFIED, UNCOMPLICATED 08/07/2019 FLORES DO, LEWIS Ot F17.21 0 NICOTINE DEPENDENCE, CIGARETTES, UNCOMPL 08/07/2019 FLORES DO, LEWIS Ot F32.9 MAJOR DEPRESSIVE DISORDER, SINGLE EPISOD 08/07/2019 FLORES DO, LEWIS Ot F41.9 ANXIETY DISORDER, UNSPECIFIED 08/07/2019 FLORES DO, LEWIS Ot 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, UNSP, NOT INTRACTABLE, WITHOUT 08/07/2019 FLORES DO, LEWIS Ot I10 ESSENTIAL (PRIMARY) HYPERTENSION 08/07/2019 FLORES DO, LEWIS Ot I21.A1 MYOCARDIAL INFARCTION TYPE 2 08/07/2019 FLORES DO, LEWIS Ot J18.9 PNEUMONIA, UNSPECIFIED ORGANISM 08/07/2019 FLORES DO, LEWIS Ot K21.9 GASTRO-ESOPHAGEAL REFLUX DISEASE WITHOUT 08/07/2019 FLORES DO, LEWIS Ot K58.9 IRRITABLE BOWEL SYNDROME WITHOUT DIARRHE 08/07/2019 FLORES DO, LEWIS Ot N32.81 OVERACTIVE BLADDER 08/07/2019 FLORES DO, LEWIS Ot R65.21 SEVERE SEPSIS WITH SEPTIC SHOCK 08/07/2019 FLORES DO, LEWIS Ot Z68.41 BODY MASS INDEX (BMI) 40.0-44.9, ADULT 08/07/2019 FLORES DO, LEWIS Ot Z90.71 0 ACQUIRED ABSENCE OF BOTH CERVIX AND UTER 08/07/2019 FLORES DO, LEWIS Ot Z90.72 2 ACQUIRED ABSENCE OF OVARIES, BILATERAL 08/07/2019 FLORES DO, LEWIS Ot 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 OTHER ORGANS 08/07/2019 FLORES DO, LEWIS Ot A41.89 OTHER SPECIFIED SEPSIS 08/07/2019 FLORES DO, LEWIS Ot D70.3 NEUTROPENIA DUE TO INFECTION 08/07/2019 FLORES DO, LEWIS Ot E66.01 MORBID (SEVERE) OBESITY DUE TO EXCESS CA 08/07/2019 FLORES DO, LEWIS Ot E86.0 DEHYDRATION 08/07/2019 FLORES DO, LEWIS Ot F12.90 CANNABIS USE, UNSPECIFIED, UNCOMPLICATED 08/07/2019 FLORES DO, LEWIS Ot F17.21 0 NICOTINE DEPENDENCE, CIGARETTES, UNCOMPL 08/07/2019 FLORES DO, LEWIS Ot F32.9 MAJOR DEPRESSIVE DISORDER, SINGLE EPISOD 08/07/2019 FLORES DO, LEWIS Ot F41.9 ANXIETY DISORDER, UNSPECIFIED 08/07/2019 FLORES DO, LEWIS Ot 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, UNSP, NOT INTRACTABLE, WITHOUT 08/07/2019 FLORES DO, LEWIS Ot I10 ESSENTIAL (PRIMARY) HYPERTENSION 08/07/2019 FLORES DO, LEWIS Ot I21.A1 MYOCARDIAL INFARCTION TYPE 2 08/07/2019 FLORES DO, LEWIS Ot J18.9 PNEUMONIA, UNSPECIFIED ORGANISM 08/07/2019 FLORES DO, LEWIS Ot K21.9 GASTRO-ESOPHAGEAL REFLUX DISEASE WITHOUT 08/07/2019 FLORES DO, LEWIS Ot K58.9 IRRITABLE BOWEL SYNDROME WITHOUT DIARRHE 08/07/2019 FLORES DO, LEWIS Ot N32.81 OVERACTIVE BLADDER 08/07/2019 FLORES DO, LEWIS Ot R65.21 SEVERE SEPSIS WITH SEPTIC SHOCK 08/07/2019 FLORES DO, LEWIS Ot Z68.41 BODY MASS INDEX (BMI) 40.0-44.9, ADULT 08/07/2019 FLORES DO, LEWIS Ot Z90.71 0 ACQUIRED ABSENCE OF BOTH CERVIX AND UTER 08/07/2019 FLOERS LEWIS Ot Z90.72 2 ACQUIRED ABSENCE OF OVARIES, BILATERAL 08/07/2019 LEWIS FLORES DO Ot 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 OTHER ORGANS Procedures Code [place] [id number] STRE P A (IN-HOUSE) 03/15/2012 44154 FORE IGN BODY REMOVAL/SIMPLE 04/11/2012 85304 TB T EST INTRADERMAL 05/06/2012 00312 TB T EST INTRADERMAL 05/12/2012 03121 TB T EST INTRADERMAL 05/29/2012 GENERAL S RAN ARELLANO 08/23/2012 50378 US R ENAL ULTRASOUND, COMP 09/01/2012 60579 OXIMETRY 09/18/2012 11527 XRAY CHEST 2 VIEW 09/28/2012 20327 URIN E DRUG SCREEN (IN-HOUSE) 01/10/2013 77010 PSYC H DIAGNOSTIC EVALUATION 04/25/2013 74643 PSYT X PT&/FAMILY 45 MINUTES 05/10/2013 69397 PSYT X PT&/FAMILY 45 MINUTES 05/25/2013 45510 ROUT INE VENIPUNCTURE 06/14/2013 84288 A1C (IN-HOUSE) 06/14/2013 04506 ESR/ SED RATE 06/14/2013 88736 GLUC OSE SHAUN 2 HOUR 06/14/2013 68489 CBC 06/15/2013 2480417 GF R CALC (RESULT ONLY) 06/15/2013 81062 CMP 06/15/2013 28754 VIT B 12 06/15/2013 53318 FOLATE 06/15/2013 55422 ROUT INE VENIPUNCTURE 06/29/2013 91189 XRAY CHEST 2 VIEW 06/29/2013 26483 MYCO PLASMA ANTIBODY 06/29/2013 10448 OXIMETRY 06/29/2013 J7613 ALBU TEROL UNIT DOSE FORM INHALED 06/29/2013 11781 CBC 06/29/2013 46450 PSYT X PT&/FAMILY 45 MINUTES 09/05/2013 76546 PSYT X PT&/FAMILY 45 MINUTES 09/28/2013 00754 PSYT X PT&/FAMILY 45 MINUTES 10/26/2013 42887 [employer] 11/13/2013 83202 PSYT X PT&/FAMILY 45 MINUTES 11/22/2013 87373 [employer] 12/06/2013 60043 [employer] 12/06/2013 09856 [employer] 12/06/2013 55054 PSYT X PT&/FAMILY 30 MINUTES 12/07/2013 36828 SKIN TAG REM 1-15 01/01/2014 07511 EXCI RIO BENIGN LESION 0.6-1 cm (spcify location in [facility] description) 01/01/2014 25907 [employer] 01/17/2014 98164 MAMM OGRAM, SCREENING 01/22/2014 25152 THER APUTIC INJ SQ/IM 04/26/2014 J0696 ROCE PHIN INJ 1 g 04/26/2014 43139 MRI SPINE (LUMBAR) W/O CONTRAST 05/17/2014 16064 A1C (IN-HOUSE) 05/31/2014 96419 ROUT INE VENIPUNCTURE 06/18/2014 74339 CBC 06/18/2014 35339 CMP 06/18/2014 71142 LIPI D PANEL 06/18/2014 [id number] GF R CALC (RESULT ONLY) 06/18/2014 74506 TSH 06/18/2014 10554 MAMM OGRAM DX, ANNA 06/20/2014 51559 EKG, TRACING (IN-HOUSE) 08/02/[id number] MANSFIELD OF RIGHT HAND, OPEN APPROACH 07/13/[id number] ELIZALDE OF R UP ARM SUBCU/FASCIA WITH LESLIE 12/08/2016 [id number] EX CISION OF R UP ARM SUBCU/FASCIA, OPEN 12/08/2016 [id number] IN SERTION OF INFUSION DEV INTO SUP VENA 07/22/2019 Results Test Result Range CBC With Differential/Platelet - 6 15:44 WBC 8.9 x10E3/uL 3.4-10.8 RBC 4.49 x10E6/uL 3.77-5.28 Hemoglobin 11.1 g/dL 11.1-15.9 Hematocrit 36.5 % 34.0-46.6 MCV 81 fL 79-97 MCH 24.7 pg 26.6-33.0 MCHC 30.4 g/dL 31.5-35.7 RDW 17.3 % 12.3-15.4 Platelets 300 x10E3/uL 150-379 Neutrophils 57 % Lymphs 28 % Monocytes 10 % Eos 3 % Basos 1 % Neutrophils (Absolute) 5.2 x10E3/uL 1.4- 7.0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
[2019-10-27] MEDS ORDERED: IOHEXOL 350 MG/ML 100 ML (OMNIPAQUE 350) VIAL IV ONE (22:45)
[2019-10-27] MEDS ORDERED: fentaNYL INJECTION 100 MCG/2 ML AMP IVP PRN (22:45)
[2019-10-27] MEDS ORDERED: ORPHENADRINE 60 MG/2 ML (NORFLEX) AMP (ED ONLY) IV ONE (22:45)
[2019-10-27] MEDS ORDERED: TRANEXAMIC ACID INJECTION 1,000 MG in NS (IVPB) 100 ML IV ONE (22:45)
[2019-10-27] MEDS ORDERED: NS 100 ML (IVPB) BAG IV ONE (22:45)
[2019-10-27] MEDS ORDERED: TRANEXAMIC ACID INJECTION 1,000 MG in NS (IVPB) 250 ML IV SCH (22:45)
[2019-10-27] MEDS ORDERED: HOLD METFORMIN - RECEIVED CONTRAST 20 ML VIAL IV SCH (22:45)
[2019-10-28] MEDS ORDERED: morphine INJ 10 MG/ML 1ML (SYR OR VIAL) IVP STA (00:45)
[2019-10-28] MEDS ORDERED: TRANEXAMIC ACID 100 MG/ML 10 ML INJECTION IV ONE (00:45)
[2019-10-28] MEDS ORDERED: LIDOCAINE 2% VISCOUS 15 ML UDC MM ONE (00:45)
[2019-10-28] MEDS ORDERED: LORazepam INJ 2 MG/ML (ATIVAN) VIAL IVP ONE (00:45)
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
[2019-10-28 03:40] VITALS: BP 112/64
--- NOTE | 2019-10-28 06:50 | Diagnostic Imaging Report ---
PROCEDURE: CT abdomen and pelvis with contrast. TECHNIQUE: Multiple contiguous axial images were obtained through the abdomen and pelvis after administration of intravenous contrast. Auto Exposure Controls were utilized during the CT exam to meet ALARA standards for radiation dose reduction. INDICATION: Suprapubic pain and vaginal bleeding after intercourse. COMPARISON is made with prior CT from 02/25/2015. FINDINGS: The lung bases are clear. Liver and gallbladder are unremarkable. No biliary ductal dilatation is detected. The pancreas and spleen are unremarkable. No adrenal mass is detected. Kidneys are unremarkable. No hydronephrosis is seen. Aorta is non-aneurysmal. Bowel loops appear nonobstructed. There is moderate stool in the right colon and transverse colon. No free fluid or fluid collection is identified. Bladder is unremarkable. Uterus appears to be surgically absent. IMPRESSION: 1. Moderate stool suggestive of constipation. 2. No acute feature detected. Dictated by: Dictated on workstation # [id number]
== END 2019-10-28 03:40 | disposition home or self-care (01) ==
LOC: ER 21:37
DX: R10.2 Pelvic and perineal pain (principal); N93.9 Abnormal uterine and vaginal bleeding, unspecified; F15.90 Other stimulant use, unspecified, uncomplicated; I10 Essential (primary) hypertension; K21.9 Gastro-esophageal reflux disease without esophagitis; F41.9 Anxiety disorder, unspecified; F32.9 Major depressive disorder, single episode, unspecified; E66.01 Morbid (severe) obesity due to excess calories; Z88.0 Allergy status to penicillin; Z88.8 Allergy status to other drugs, medicaments and biological substances; Z68.41 Body mass index [BMI] 40.0-44.9, adult; Z82.49 Family history of ischemic heart disease and other diseases of the circulatory system
CPT/HCPCS: 36415; 74177; 80053; 85025; 85610; 85730; 86850; 86900; 86901

== ENCOUNTER 2021-02-15 12:14 | Emergency (ER) | payer SELFPAY ==
[~2021-02-15] VITALS: Ht 167 cm; Wt 111.0 kg
[~2021-02-15 12:14] MED LIST changes: +AMLO-250 PO; -AMLO5TAB9 PO; -CLIN300C11 PO; +CLIN300C12 PO; +CLN.1T PO; -CLON0.1T PO; +ERYT-109 PO; -OMEP40CA27 PO; +OMEP40CA6 PO; -OXYC-471 PO; +OXYC1TAB11 PO; +QUET300T19 PO; -QUET300T44 PO; -[UNRECOGNIZED DRUG - CODE] PO
[2021-02-15] MEDS ORDERED: morphine INJ 10 MG/ML 1ML (SYR OR VIAL) IM STA (12:37)
[2021-02-15] MEDS ORDERED: DOXYCYCLINE 100 MG (VIBRAMYCIN) TABLET PO SCH (12:45)
[2021-02-15] MEDS ORDERED: metroNIDAZOLE 500 MG (FLAGYL) TAB PO ONE (12:45)
[2021-02-15] MEDS ORDERED: TETANUS,DIPTH,PERTUSS P/F (BOOSTRIX) 0.5 ML VIAL IM ONE (12:45)
--- NOTE | 2021-02-15 12:55 | ED Upper Extremity ---
General Chief Complaint: Bite-Animal/Human/Insect Stated Complaint: R WRIST DOG BITE Source: patient Exam Limitations: no limitations History of Present Illness Date Seen by Provider: Feb 15, 2021 Time Seen by Provider: 12:49 Initial Comments To ER by private vehicle with reports of a dog bite to the right hand. She states this was a pitbull near her house. Onset: just prior to arrival Severity: moderate Pain/Injury Location: right hand Method of Injury: unknown Modifying Factors: Worse With Movement Allergies and Home Medications Allergies Coded Allergies: Penicillins (Unverified Allergy, Mild, Has had Ancef w/o issue, 07/22/19) dimenhydrinate (Verified Allergy, Mild, 07/22/19) prochlorperazine (Unverified Allergy, Mild, 07/22/19) Uncoded Allergies: ANTI-EMETICS (Allergy, Mild, 03/26/08) ANTI-NAUSEA MEDICATIONS EXCEPT DRAMAMINE (Allergy, Mild, MAKE HER HAVE ANXIETY ATTACKS, 08/29/08) ANTIEMETICS (Allergy, Mild, 12/09/08) NAUSEA MEDS (Allergy, Mild, 12/01/08) Patient Home Medication List Home Medication List Reviewed: Yes Buspirone HCl (Buspirone HCl) 15 Mg Tablet, 15 MG PO BID, (Reported) Entered as Reported by: ROSE CISSE on 05/23/19 1316 Clindamycin HCl (Clindamycin HCl) 300 Mg Capsule, 600 MG PO TID Prescribed by: ONESIMO MOHAN on 06/19/19 1151 Clonidine HCl (Clonidine HCl) 0.1 Mg Tablet, 0.1 MG PO TID, (Reported) Entered as Reported by: ROSE CISSE on 05/23/19 1316 Cyclobenzaprine HCl (Cyclobenzaprine HCl) 10 Mg Tablet, 10 MG PO TID PRN for MUSCLE SPASMS, (Reported) Entered as Reported by: ROSE CISSE on 05/23/19 1316 Diphenhydramine HCl (Benadryl) 25 Mg Capsule, 25 MG PO Q8H PRN for ITCHING, (Reported) Entered as Reported by: ROSE CISSE on 05/23/19 1455 Doxycycline Hyclate (Doxycycline Hyclate) 100 Mg Tablet, 100 MG PO BID Prescribed by: TAE CUNHA on 02/15/21 1259 Famotidine (Acid Grave Cleaner (FAMOTIDINE)) 20 Mg Tablet, 20 MG PO DAILY PRN for HEARTBURN, (Reported) Entered as Reported by: ROSE CISSE on 05/23/19 1455 Gabapentin (Gabapentin) 800 Mg Tablet, 800 MG PO TID, (Reported) Entered as Reported by: ROSE CISSE on 05/23/19 1316 Hydrocodone Bit/Acetaminophen (Lortab 5 Mg Tablet) 1 Tab Tab, 1 TAB PO Q4-6HR Prescribed by: ONESIMO MOHAN on 06/19/19 1151 Hydrocodone/Acetaminophen (Hydrocodone-Acetamin 5-325 mg) 1 Each Tablet, 1 TAB PO Q4H PRN for PAIN-MODERATE (5-7) Prescribed by: TAE CUNHA on 02/15/21 1300 Hydroxyzine Pamoate (Hydroxyzine Pamoate) 25 Mg Capsule, 25 MG PO TID PRN for ANXIETY, (Reported) Entered as Reported by: ROSE CISSE on 05/23/19 1316 Metronidazole (Flagyl) 500 Mg Tablet, 500 MG PO TID Prescribed by: TAE CUNHA on 02/15/21 1259 Oxybutynin Chloride (Oxybutynin Chloride) 5 Mg Tablet, 5 MG PO BID, (Reported) Entered as Reported by: ROSE CISSE on 05/23/19 1316 Paroxetine HCl (Paroxetine HCl) 40 Mg Tablet, 40 MG PO DAILY, (Reported) Entered as Reported by: ROSE CISSE on 05/23/19 1450 Trazodone HCl (Trazodone HCl) 100 Mg Tablet, 200 MG PO HS, (Reported) Entered as Reported by: ROSE CISSE on 05/23/19 1316 Review of Systems Constitutional: see HPI EENTM: see HPI Respiratory: no symptoms reported Cardiovascular: no symptoms reported Genitourinary: no symptoms reported Musculoskeletal: see HPI Skin: no symptoms reported Psychiatric/Neurological: No Symptoms Reported Past Tdadifv-Nhxcbd-Sowuam Hx Immunizations Up To Date Tetanus Booster (TDap): Less than 5yrs PED Vaccines UTD: Yes Seasonal Allergies Seasonal Allergies: Yes Past Medical History Surgeries: Yes (I&D) Appendectomy, Section, Hysterectomy, Oophorectomy, Orthopedic, Tonsillectomy Respiratory: Yes (EMPYEMA--S/P LUNG SURGERY FOR REMOVAL) Asthma, Chronic Bronchitis Currently Using CPAP: No Currently Using BIPAP: No Cardiac: Yes Hypertension Neurological: Yes Seizure Disorder Reproductive Disorders: Yes (MULTIPLE OVARIAN CYSTS. 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 Sexually Transmitted Disease: Yes (HPV, GONORRHEA) HIV/AIDS: No Genitourinary: No Gastrointestinal: Yes Gastroesophageal Reflux, Irritable Bowel Musculoskeletal: Yes Degenerate Disk Disease, Chronic Back Pain Endocrine: Yes (MORBID OBESITY) HEENT: No Loss of Vision: Denies Hearing Impairment: Denies Cancer: No Psychosocial: Yes Sleep Difficulties, Anxiety, Depression Integumentary: Yes (spider bite) Blood Disorders: No Family Medical History Blood clots G8 BROTHER G8 SISTER Diabetes mellitus 19 MOTHER Headache disorder G8 SISTER Myocardial infarction 19 MOTHER STROKE 19 MOTHER G8 BROTHER CAD Over 55 Years Old, DVT/PE, Diabetes, Stroke, Other Conditions/Hx Physical Exam Vital Signs Vital Signs - First Documented 02/15/21 12:36 Temp 37.0 Pulse 97 Resp 18 B/P (MAP) 147/97 (114) Pulse Ox 99 Capillary Refill : Height, Weight, BMI Height: 5'6.00" Weight: 235lbs. 0oz. 106.893333pg; 40.28 BMI Method:Stated General Appearance: WD/WN, no apparent distress HEENT: PERRL/EOMI, normal ENT inspection Neck: non-tender, full range of motion Respiratory: no respiratory distress, no accessory muscle use Shoulder: normal inspection, non-tender Elbow/Forearm: normal inspection, non-tender Wrist: Yes normal inspection, Yes non-tender Hand: Right, laceration (Nonbleeding puncture wound over the radial side of the right wrist volar aspect. Puncture wounds over the dorsal aspect of the right wrist midline. These are also nonbleeding.) Neurologic/Tendon: normal sensation, normal motor functions Neurologic/Psychiatric: alert, normal mood/affect, oriented x 3 Skin: normal color, warm/dry Procedures/Interventions Suture Size: 4-0 Progress/Results/Core Measures Results/Orders My Orders Orders - TAE CUNHA APRN DiphMicah bruno(Acell),Tet Adult (Boostrix (02/15/21 12:45) Doxycycline Hyclate Tablet (Vibramycin T (02/15/21 12:45) Metronidazole Tablet (Flagyl Tablet) (02/15/21 12:45) Morphine Injection (Morphine Injection (02/15/21 12:37) Hand, Right, 3 Views (02/15/21 12:37) Medications Given in ED Current Medications Medications Dose Ordered Sig/Jesus Route Start Time Stop Time Status Last Admin Dose Admin Diphtheria/ Tetanus/Acell Pertussis 0.5 ml ONCE ONCE IM 02/15/21 12:45 02/15/21 12:46 DC 02/15/21 12:56 0.5 ML Metronidazole 500 mg ONCE ONCE PO 02/15/21 12:45 02/15/21 12:46 DC 02/15/21 12:58 500 MG Vital Signs/I&O 02/15/21 12:36 Temp 37.0 Pulse 97 Resp 18 B/P (MAP) 147/97 (114) Pulse Ox 99 Departure Communication (Admissions) Family Conversation NAME: PAULA SALAZAR [facility] REC#: [id number] PT STATUS: REG ER : 1970 PHYSICIAN: TAE CUNHA APRN ADMIT DATE: 02/15/21/ER Draft Date of Exam:02/15/21 HAND, RIGHT, 3 VIEWS Indication: Right hand pain and swelling after dog bite. Comparison: 12/10/2016. Discussion: Three views of the right hand were obtained. Soft tissue gas noted about the right wrist. No radiopaque foreign body. No fracture or dislocation. Alignment is anatomic. Joint spaces are maintained. Impression: 1. Right wrist soft tissue gas. No fracture or foreign body. Dictated on workstation # [id number] Dict: 02/15/21 1306 Trans: 02/15/21 1308 [facility] [id number] Interpreted by: DOUGLAS FERRIS MD Electronically signed by: Recommend to her that she should get the rabies vaccine here since she does not know the rabies vaccine status of the dog. She refuses and states that she wants to try to find the dogs college or university department head and determine its vaccine status. Impression Primary Impression: Dog bite Disposition: HOME, SELF-CARE Condition: Stable Departure-Patient Inst. Decision time for Depature: 12:50 Referrals: [facility] (PCP/Family) Primary Care Physician Patient Instructions: Animal Bites (DC) Add. Discharge Instructions: 1. Take the antibiotics as directed. Return to ER for any worsening follow-up with your doctor next week. If you are unable to identify the dog and determine rabies vaccine status All discharge instructions reviewed with patient and/or family. Voiced understanding. Scripts Metronidazole (Flagyl) 500 Mg Tablet 500 MG PO TID, #21 TAB Prov: TAE CUNHA APRN 02/15/21 Doxycycline Hyclate (Doxycycline Hyclate) 100 Mg Tablet 100 MG PO BID, #20 TAB 0 Refills Prov: TAE CUNHA APRN 02/15/21 Hydrocodone/Acetaminophen (Hydrocodone-Acetamin 5-325 mg) 1 Each Tablet 1 TAB PO Q4H PRN for PAIN-MODERATE (5-7), #10 TAB Prov: TAE CUNHA APRN 02/15/21 TAE CUNHA APRN Feb 15, 2021 12:55
[2021-02-15] MEDS ORDERED: METR500T PO (12:59)
[2021-02-15] MEDS ORDERED: DOXY100T2 PO (12:59)
[2021-02-15] MEDS ORDERED: ACHD5005 PO (12:59)
--- NOTE | 2021-02-15 13:08 | Diagnostic Imaging Report ---
Indication: Right hand pain and swelling after dog bite. Comparison: 12/10/2016. Discussion: Three views of the right hand were obtained. Soft tissue gas noted about the right wrist. No radiopaque foreign body. No fracture or dislocation. Alignment is anatomic. Joint spaces are maintained. Impression: 1. Right wrist soft tissue gas. No fracture or foreign body. Dictated by: Dictated on workstation # [id number]
[2021-02-15 13:42] VITALS: BP 120/67
== END 2021-02-15 13:42 | disposition home or self-care (01) ==
LOC: EDUNIT# 12:14 → ER 12:16
DX: S61.551A Open bite of right wrist, initial encounter (principal); I10 Essential (primary) hypertension; F41.9 Anxiety disorder, unspecified; F32.9 Major depressive disorder, single episode, unspecified; E66.01 Morbid (severe) obesity due to excess calories; K21.9 Gastro-esophageal reflux disease without esophagitis; G89.29 Other chronic pain; M54.9 Dorsalgia, unspecified; Z68.41 Body mass index [BMI] 40.0-44.9, adult; Z23 Encounter for immunization; Z79.899 Other long term (current) drug therapy; Z79.891 Long term (current) use of opiate analgesic; W54.0XXA Bitten by dog, initial encounter
CPT/HCPCS: 73130; 90715

== ENCOUNTER 2022-07-06 07:19 | Emergency (ER) | payer MEDICAID ==
[~2022-07-06] VITALS: Ht 167.7 cm; Wt 111.0 kg
[~2022-07-06 07:19] MED LIST changes: +ACET-11 PO; -ACET1TAB43 PO; -ASPI-789 PO; +ASPI1TAB23 PO; -CETI10TA23 PO; +CETI10TA24 PO; +CLIN-144 PO; -CLIN300C12 PO; +CYCL10TA25 PO; -ERYT-96 PO; -FLUC150T2 PO; +FLUC150T41 PO; +LEVO750T PO; -LEVO750T39 PO; +PARO-134 PO; -PARO10TA81 PO; +TIZA-186 PO; -TIZA4TAB4 PO; +[UNRECOGNIZED DRUG - CODE] PO
[2022-07-06] MEDS ORDERED: LORazepam 0.5 MG (ATIVAN) TABLET BC STA (07:29)
[2022-07-06] MEDS ORDERED: LACTATED RINGERS 1,000 ML IV ONE ×2 (07:30→09:30)
[2022-07-06] MEDS ORDERED: ONDANSETRON 4 MG/2 ML (SDV) Z0FRAN IVP ONE (07:30)
[2022-07-06 07:38] LABS: BASOPHILS # (AUTO) 0.1 10^3/uL (0.0-0.1); BASOPHILS % (AUTO) 1 % (0-10); EOSINOPHILS % (AUTO) 0 % (0-10); HEMATOCRIT 47 % (35-52); HEMOGLOBIN 14.8 g/dL (11.5-16.0); LYMPHOCYTES % (AUTO) 21 % (12-44); MEAN CORPUSCULAR HEMOGLOBIN 27 pg (25-34); MEAN CORPUSCULAR HGB CONC 32 g/dL (32-36); MEAN CORPUSCULAR VOLUME 85 fL (80-99); MEAN PLATELET VOLUME 10.3 fL (9.0-12.2); MONOCYTES # (AUTO) 0.8 10^3/uL (0.0-1.0); MONOCYTES % (AUTO) 8 % (0-12); NEUTROPHILS # (AUTO) 6.6 10^3/uL (1.8-7.8); NEUTROPHILS % (AUTO) 69 % (42-75); PLATELET COUNT 315 10^3/uL (130-400); WHITE BLOOD COUNT 9.5 10^3/uL (4.3-11.0)
[2022-07-06 07:56] LABS: ALBUMIN 4.2 GM/DL (3.2-4.5); CHLORIDE 104 MMOL/L (98-107); POTASSIUM 4.7 MMOL/L (3.6-5.0); SODIUM 139 MMOL/L (135-145)
[2022-07-06 07:57] LABS: CALCIUM 9.8 MG/DL (8.5-10.1)
[2022-07-06 07:58] LABS: GLUCOSE 102 MG/DL (70-105); TOTAL PROTEIN 7.2 GM/DL (6.4-8.2)
[2022-07-06 07:59] LABS: CARBON DIOXIDE 23 MMOL/L (21-32)
[2022-07-06 08:00] LABS: BILIRUBIN,TOTAL 0.6 MG/DL (0.1-1.0)
[2022-07-06 08:01] LABS: ALKALINE PHOSPHATASE 103 U/L (40-136)
[2022-07-06 08:02] LABS: CREATININE SERUM 0.75 MG/DL (0.60-1.30); GFR ESTIMATED 97
[2022-07-06 08:03] LABS: BUN/CREATININE RATIO 17
[2022-07-06 08:05] LABS: ALANINE AMINOTRANSFERASE 16 U/L (0-55); CREATINE KINASE 190 U/L (29-168); MAGNESIUM 1.9 MG/DL (1.6-2.4)
--- NOTE | 2022-07-06 09:27 | ED Psychosocial ---
General Chief Complaint: Detox Stated Complaint: METH Nursing Triage Note: ARRIVES VIA EMS TO ROOM 07 WITH [facility]OPE TO GET HELP FOR HER METHAMPHETEMINE USAGE PROBLEMS. PATIENT STATES SHE WISHES TO SEEK TREATMENT FOR HER METH USE. DENIES ILLNESS OF ALL BODY SYSTEMS. Source: patient, EMS Exam Limitations: no limitations History of Present Illness Date Seen by Provider: Jul 06, 2022 Time Seen by Provider: 07:20 Initial Comments This 52-year-old woman presents to the emergency room via EMS with agitation and dystonia from methamphetamine use. She last smoked methamphetamine yesterday. Police found her rummaging through a trash can. Patient states she was thrown out of the home she was living in along with her possessions which were thrown in the trash. She complains of nausea and agitation. She is alert and coopera tive. Allergies and Home Medications Allergies Coded Allergies: Penicillins (Unverified Allergy, Mild, Has had Ancef w/o issue, 07/22/19) dimenhydrinate (Verified Allergy, Mild, 07/22/19) prochlorperazine (Unverified Allergy, Mild, 07/22/19) Uncoded Allergies: ANTI-EMETICS (Allergy, Mild, 03/26/08) ANTI-NAUSEA MEDICATIONS EXCEPT DRAMAMINE (Allergy, Mild, MAKE HER HAVE ANXIETY ATTACKS, 08/29/08) ANTIEMETICS (Allergy, Mild, 12/09/08) NAUSEA MEDS (Allergy, Mild, 12/01/08) Patient Home Medication List Home Medication List Reviewed: Yes Buspirone HCl (Buspirone HCl) 15 Mg Tablet, 15 MG PO BID, (Reported) Entered as Reported by: ROSE CISSE on 05/23/19 1316 Clindamycin HCl (Clindamycin HCl) 300 Mg Capsule, 600 MG PO TID Prescribed by: ONESIMO MOHAN on 06/19/19 1151 Clonidine HCl (Clonidine HCl) 0.1 Mg Tablet, 0.1 MG PO TID, (Reported) Entered as Reported by: ROSE CISSE on 05/23/19 1316 Cyclobenzaprine HCl (Cyclobenzaprine HCl) 10 Mg Tablet, 10 MG PO TID PRN for MUSCLE SPASMS, (Reported) Entered as Reported by: ROSE CISSE on 05/23/19 1316 Diphenhydramine HCl (Benadryl) 25 Mg Capsule, 25 MG PO Q8H PRN for ITCHING, (Reported) Entered as Reported by: ROSE CISSE on 05/23/19 1455 Doxycycline Hyclate (Doxycycline Hyclate) 100 Mg Tablet, 100 MG PO BID Prescribed by: TAE CUNHA on 02/15/21 1259 Famotidine (Acid Operations Developer (FAMOTIDINE)) 20 Mg Tablet, 20 MG PO DAILY PRN for HEARTBURN, (Reported) Entered as Reported by: ROSE CISSE on 05/23/19 1455 Gabapentin (Gabapentin) 800 Mg Tablet, 800 MG PO TID, (Reported) Entered as Reported by: ROSE CISSE on 05/23/19 1316 Hydrocodone Bit/Acetaminophen (Lortab 5 Mg Tablet) 1 Tab Tab, 1 TAB PO Q4-6HR Prescribed by: ONESIMO MOHAN on 06/19/19 1151 Hydrocodone/Acetaminophen (Hydrocodone-Acetamin 5-325 mg) 1 Each Tablet, 1 TAB PO Q4H PRN for PAIN-MODERATE (5-7) Prescribed by: TAE CUNHA on 02/15/21 1300 Hydroxyzine Pamoate (Hydroxyzine Pamoate) 25 Mg Capsule, 25 MG PO TID PRN for ANXIETY, (Reported) Entered as Reported by: ROSE CISSE on 05/23/19 1316 Metronidazole (Flagyl) 500 Mg Tablet, 500 MG PO TID Prescribed by: TAE CUNHA on 02/15/21 1259 Oxybutynin Chloride (Oxybutynin Chloride) 5 Mg Tablet, 5 MG PO BID, (Reported) Entered as Reported by: ROSE CISSE on 05/23/19 1316 Paroxetine HCl (Paroxetine HCl) 40 Mg Tablet, 40 MG PO DAILY, (Reported) Entered as Reported by: ROSE CISSE on 05/23/19 1450 Trazodone HCl (Trazodone HCl) 100 Mg Tablet, 200 MG PO HS, (Reported) Entered as Reported by: ROSE CISSE on 05/23/19 1316 Review of Systems Constitutional: see HPI EENTM: no symptoms reported Respiratory: no symptoms reported Gastrointestinal: see HPI Genitourinary: no symptoms reported : No Musculoskeletal: no symptoms reported Skin: no symptoms reported Psychiatric/Neurological: See HPI Past Ljllbai-Enrlwo-Aonyem Hx Patient Social History Tobacco Use?: Yes Tobacco type used: Cigarettes Smoking Status: Current Everyday Smoker Use of E-Cig and/or Vaping dev: No Substance use?: Yes Substance type: Amphetamines, Methamphetamine, Nicotine Substance frequency: Daily Alcohol Use?: No Pt feels they are or have been: No Immunizations Up To Date Tetanus Booster (TDap): Less than 5yrs PED Vaccines UTD: Yes First/Initial COVID19 Vaccinat: 2021 Second COVID19 Vaccination Zak: 2021 COVID19 Vaccine 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 Sexually Transmitted Disease: Yes (HPV, GONORRHEA) HIV/AIDS: No Genitourinary: No Gastrointestinal: Yes Gastroesophageal Reflux, Irritable Bowel Musculoskeletal: Yes Degenerate Disk Disease, Chronic Back Pain Endocrine: Yes (MORBID OBESITY) HEENT: No Loss of Vision: Denies Hearing Impairment: Denies Cancer: No Psychosocial: Yes Sleep Difficulties, Anxiety, Depression Integumentary: Yes (spider bite) Blood Disorders: No Family Medical History Blood clots G8 BROTHER G8 SISTER Diabetes mellitus 19 MOTHER Headache disorder G8 SISTER Myocardial infarction 19 MOTHER STROKE 19 MOTHER G8 BROTHER CAD Over 55 Years Old, DVT/PE, Diabetes, Stroke, Other Conditions/Hx Physical Exam Vital Signs - First Documented Capillary Refill : Less Than 3 Seconds Height, Weight, BMI Height: 5'6.00" Weight: 235lbs. 0oz. 106.479651rr; 39.00 BMI Method:Stated General Appearance: WD/WN, moderate distress, obese HEENT: PERRL/EOMI, normal ENT inspection Neck: normal inspection Respiratory: lungs clear, normal breath sounds, no respiratory distress Cardiovascular: no edema, no murmur, tachycardia Gastrointestinal: non tender, soft; No distended Extremities: normal inspection, no pedal edema Neurologic/Psychiatric: alert, other (Agitated, generalized dystonia consistent with methamphetamine use) Appearance/Memory: appropriate insight, disheveled Behavior/Eye Contact: cooperative, avoids eye contact Thoughts/Hallucinations: other (Does not express any suicidal or homicidal i deation) Skin: normal color, warm/dry, other (Numerous superficial skin sores) Procedures/Interventions Suture Size: 4-0 Progress/Results/Core Measures Results/Orders Lab Results My Orders Orders - JERROD NUGENT MD Lactated Ringers (Lr 1000 Ml Iv Solution (07/06/22 09:30) Lorazepam Tablet (Ativan Tablet) (07/06/22 09:30) Medications Given in ED Vital Signs/I&O Blood Pressure Mean: 128 Progress Progress Note #1: Time: :21 Progress Note Patient was given IV Zofran, a liter of IV fluid, and oral Ativan. She is now resting calmly but easily wakes. Social work will discuss options for her reg arding community resources. We will infuse a second liter of IV fluids and treat any other agitation as needed. Progress Note #2: Progress Note Patient received a second dose of ativan. registered nurse surgical services helped provide her with resources and transportation. Care was complicated by homelessness and substance abuse necessitating my consultation with child protective services social worker. Departure Impression Primary Impression: Methamphetamine-induced mental disorder Additional Impressions: Acute dystonia due to drugs Agitation Nausea Homeless Disposition: 01 HOME, SELF-CARE Condition: Improved Departure-Patient Inst. Decision time for Depature: :23 Referrals: [facility] (PCP/Family) Primary Care Physician Patient Instructions: ALCOHOL AND SUBSTANCE ABUSE, OUTPT SUBSTANCE ABUSE RESOU RCE Add. Discharge Instructions: Seek resources as directed by social work. Avoid use of any illicit substances including marijuana, alcohol, and methamphetamine as any of these substances may make your symptoms worse. Drink plenty of clear liquids to stay well-hydrated. Seek assistance with substance abuse via a qualified treatment center. Some good places to start in the [facility] include the [facility] of [facility] which can be contacted at [phone] or [facility] which can be contacted at [phone]. The [facility] crisis line is [phone]. Return to the emergency room if you have worsening symptoms that require urgent attention. All discharge instructions reviewed with patient and/or family. Voiced understanding. Copy Copies To 1: [facility]/JERROD WALKER MD Jul 06, 2022 09:27
[2022-07-06] MEDS ORDERED: LORazepam 0.5 MG (ATIVAN) TABLET PO STA (09:30)
[2022-07-06 10:05] VITALS: BP 159/103
== END 2022-07-06 10:05 | disposition home or self-care (01) ==
LOC: EDUNIT# 07:19 → ER 07:20
DX: F15.980 Other stimulant use, unspecified with stimulant-induced anxiety disorder (principal); F15.94 Other stimulant use, unspecified with stimulant-induced mood disorder; G24.02 Drug induced acute dystonia; T43.625A Adverse effect of amphetamines, initial encounter; R11.0 Nausea; F17.210 Nicotine dependence, cigarettes, uncomplicated; E66.01 Morbid (severe) obesity due to excess calories; Z59.00 Homelessness unspecified; Z68.39 Body mass index [BMI] 39.0-39.9, adult
CPT/HCPCS: 80053; 82550; 83735; 85025; 86141; 99283; G0480; 36415; 80320

== ENCOUNTER 2022-08-12 14:51 | Emergency (ER) | payer MEDICAID ==
[~2022-08-12] VITALS: Ht 167.7 cm; Wt 111.0 kg
--- NOTE | 2022-08-12 14:58 | ED Respiratory ---
General Stated Complaint: SOB Source: patient Exam Limitations: no limitations History of Present Illness Date Seen by Provider: Aug 12, 2022 Time Seen by Provider: 14:58 Initial Comments This is a well-appearing 52-year-old female with a history of methamphetamine abuse, chronic bronchitis, and asthma. She is currently homeless. Presented to the ER from [facility] walk-in for concerns of shortness of breath and cough for past two weeks. She just established with PCP at [facility] and states she only takes Paxil for her anxiety and depression. Is a 1 PPD smoker. No known ill contacts. Reports no fever, chills, chest pain, abdominal pain, vomiting, diarrhea. Allergies and Home Medications Allergies Coded Allergies: Penicillins (Unverified Allergy, Mild, Has had Ancef w/o issue, 07/22/19) dimenhydrinate (Verified Allergy, Mild, 07/22/19) prochlorperazine (Unverified Allergy, Mild, 07/22/19) Uncoded Allergies: ANTI-EMETICS (Allergy, Mild, 03/26/08) ANTI-NAUSEA MEDICATIONS EXCEPT DRAMAMINE (Allergy, Mild, MAKE HER HAVE ANXIETY ATTACKS, 08/29/08) ANTIEMETICS (Allergy, Mild, 12/09/08) NAUSEA MEDS (Allergy, Mild, 12/01/08) Patient Home Medication List Home Medication List Reviewed: Yes Albuterol Sulfate (Ventolin Hfa) 1 Puff Puff, 2 PUFF INH Q4H Prescribed by: IMELDA ROBLEDO on 08/12/22 1536 Benzonatate (Tessalon Perles) 100 Mg Capsule, 200 MG PO Q8H PRN for COUGH Prescribed by: IMELDA ROBLEDO on 08/12/22 1543 Buspirone HCl (Buspirone HCl) 15 Mg Tablet, 15 MG PO BID, (Reported) Entered as Reported by: ROSE CISSE on 05/23/19 1316 Clindamycin HCl (Clindamycin HCl) 300 Mg Capsule, 600 MG PO TID Prescribed by: ONESIMO MOHAN on 06/19/19 1151 Clonidine HCl (Clonidine HCl) 0.1 Mg Tablet, 0.1 MG PO TID, (Reported) Entered as Reported by: ROSE CISSE on 05/23/19 1316 Cyclobenzaprine HCl (Cyclobenzaprine HCl) 10 Mg Tablet, 10 MG PO TID PRN for MUSCLE SPASMS, (Reported) Entered as Reported by: ROSE CISSE on 05/23/19 1316 Diphenhydramine HCl (Benadryl) 25 Mg Capsule, 25 MG PO Q8H PRN for ITCHING, (Reported) Entered as Reported by: ROSE CISSE on 05/23/19 1455 Doxycycline Hyclate (Doxycycline Hyclate) 100 Mg Tablet, 100 MG PO BID Prescribed by: TAE CUNHA on 02/15/21 1259 Doxycycline Hyclate (Doxycycline Hyclate) 100 Mg Tablet, 100 MG PO BID Prescribed by: IMELDA ROBLEDO on 08/12/22 1536 Famotidine (Acid Diploma Dental Assistant (FAMOTIDINE)) 20 Mg Tablet, 20 MG PO DAILY PRN for HEARTBURN, (Reported) Entered as Reported by: ROSE CISSE on 05/23/19 1455 Gabapentin (Gabapentin) 800 Mg Tablet, 800 MG PO TID, (Reported) Entered as Reported by: ROSE CISSE on 05/23/19 1316 Hydrocodone Bit/Acetaminophen (Lortab 5 Mg Tablet) 1 Tab Tab, 1 TAB PO Q4-6HR Prescribed by: ONESIMO MOHAN on 06/19/19 1151 Hydrocodone/Acetaminophen (Hydrocodone-Acetamin 5-325 mg) 1 Each Tablet, 1 TAB PO Q4H PRN for PAIN-MODERATE (5-7) Prescribed by: TAE CUNHA on 02/15/21 1300 Hydroxyzine Pamoate (Hydroxyzine Pamoate) 25 Mg Capsule, 25 MG PO TID PRN for ANXIETY, (Reported) Entered as Reported by: ROSE CISSE on 05/23/19 1316 Metronidazole (Flagyl) 500 Mg Tablet, 500 MG PO TID Prescribed by: TAE CUNHA on 02/15/21 1259 Oxybutynin Chloride (Oxybutynin Chloride) 5 Mg Tablet, 5 MG PO BID, (Reported) Entered as Reported by: ROSE CISSE on 05/23/19 1316 Paroxetine HCl (Paroxetine HCl) 40 Mg Tablet, 40 MG PO DAILY, (Reported) Entered as Reported by: ROSE CISSE on 05/23/19 1450 Prednisone (Prednisone) 50 Mg Tab, 50 MG PO DAILY Prescribed by: IMELDA ROBLEDO on 08/12/22 1536 Trazodone HCl (Trazodone HCl) 100 Mg Tablet, 200 MG PO HS, (Reported) Entered as Reported by: ROSE CISSE on 05/23/19 1316 Review of Systems Review of Systems Constitutional: see HPI Past Orhcjmr-Eeoorx-Zxmhmf Hx Immunizations Up To Date Tetanus Booster (TDap): Less than 5yrs PED Vaccines UTD: Yes First/Initial COVID19 Vaccinat: 2021 Second COVID19 Vaccination Zak: 2021 Seasonal Allergies Seasonal Allergies: Yes Past Medical History Surgery/Hospitalization HX: ANXIETY AND DEPRESSION, HYSTERECTOMY /C OVARY REMOVAL AND LUNG SURGERY FOR "EMPYEMA", TONSILS, APPENDIX REMOVAL Surgeries: Yes (I&D) Appendectomy, Section, Hysterectomy, Oophorectomy, Orthopedic, Tonsillectomy Respiratory: Yes (EMPYEMA--S/P LUNG SURGERY FOR REMOVAL) Asthma, Chronic Bronchitis Currently Using CPAP: No Currently Using BIPAP: No Cardiac: Yes Hypertension Neurological: Yes Seizure Disorder Reproductive Disorders: Yes (MULTIPLE OVARIAN CYSTS. 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 Sexually Transmitted Disease: Yes (HPV, GONORRHEA) HIV/AIDS: No Genitourinary: No Gastrointestinal: Yes Gastroesophageal Reflux, Irritable Bowel Musculoskeletal: Yes Degenerate Disk Disease, Chronic Back Pain Endocrine: Yes (MORBID OBESITY) HEENT: No Loss of Vision: Denies Hearing Impairment: Denies Cancer: No Psychosocial: Yes Sleep Difficulties, Anxiety, Depression Integumentary: Yes (spider bite) Blood Disorders: No Family Medical History Blood clots G8 BROTHER G8 SISTER Diabetes mellitus 19 MOTHER Headache disorder G8 SISTER Myocardial infarction 19 MOTHER STROKE 19 MOTHER G8 BROTHER CAD Over 55 Years Old, DVT/PE, Diabetes, Stroke, Other Conditions/Hx Physical Exam Vital Signs - First Documented 08/12/22 14:54 Temp 36.5 Pulse 79 Resp 20 B/P (MAP) 123/92 (102) Pulse Ox 97 O2 Delivery Room Air Capillary Refill : Height: 5'6.00" Weight: 235lbs. 0oz. 106.909714cs; 39.00 BMI Method:Stated General Appearance: WD/WN, no apparent distress Eyes: Bilateral Eye Normal Inspection, Bilateral Eye PERRL, Bilateral Eye EOMI HEENT: PERRL/EOMI, normal ENT inspection, pharynx normal Neck: full range of motion, normal inspection Respiratory: no respiratory distress, no accessory muscle use, decreased breath sounds (coarse breath sound, increased effort ) Cardiovascular: regular rate, rhythm, no murmur Gastrointestinal: normal bowel sounds, non tender, soft Extremities: normal range of motion, non-tender, normal inspection Neurologic/Psychiatric: no motor/sensory deficits, alert, normal mood/affect, oriented x 3 Skin: normal color, warm/dry Progress/Results/Core Measures Suspected Sepsis SIRS Temperature: Pulse: Respiratory Rate: Laboratory Tests 08/12/22 15:08: White Blood Count 11.3H Blood Pressure / Mean: Laboratory Tests 08/12/22 15:08: Creatinine 0.73, Platelet Count 246, Total Bilirubin 0.4 Results/Orders Lab Results Laboratory Tests Test 08/12/22 15:00 08/12/22 15:08 Range/Units SARS-CoV-2 RNA (RT-PCR) Not Detected Not Detecte White Blood Count 11.3 H 4.3-11.0 10^3/uL Red Blood Count 5.00 3.80-5.11 10^6/uL Hemoglobin 13.8 11.5-16.0 g/dL Hematocrit 43 35-52 % Mean Corpuscular Volume 87 80-99 fL Mean Corpuscular Hemoglobin 28 25-34 pg Mean Corpuscular Hemoglobin Concent 32 32-36 g/dL Red Cell Distribution Width 14.2 10.0-14.5 % Platelet Count 246 130-400 10^3/uL Mean Platelet Volume 10.0 9.0-12.2 fL Immature Granulocyte % (Auto) 0 % Neutrophils (%) (Auto) 70 42-75 % Lymphocytes (%) (Auto) 19 12-44 % Monocytes (%) (Auto) 10 0-12 % Eosinophils (%) (Auto) 1 0-10 % Basophils (%) (Auto) 1 0-10 % Neutrophils # (Auto) 7.9 H 1.8-7.8 X 10^3 Lymphocytes # (Auto) 2.1 1.0-4.0 X 10^3 Monocytes # (Auto) 1.1 H 0.0-1.0 X 10^3 Eosinophils # (Auto) 0.1 0.0-0.3 10^3/uL Basophils # (Auto) 0.1 0.0-0.1 10^3/uL Immature Granulocyte # (Auto) 0.0 0.0-0.1 10^3/uL Sodium Level 137 135-145 MMOL/L Potassium Level 3.8 3.6-5.0 MMOL/L Chloride Level 106 98-107 MMOL/L Carbon Dioxide Level 24 21-32 MMOL/L Anion Gap 7 5-14 MMOL/L Blood Urea Nitrogen 9 7-18 MG/DL Creatinine 0.73 0.60-1.30 MG/DL Estimat Glomerular Filtration Rate 100 BUN/Creatinine Ratio 12 Glucose Level 102 70-105 MG/DL Calcium Level 9.4 8.5-10.1 MG/DL Corrected Calcium 9.6 8.5-10.1 MG/DL Total Bilirubin 0.4 0.1-1.0 MG/DL Aspartate Amino Transf (AST/SGOT) 17 5-34 U/L Alanine Aminotransferase (ALT/SGPT) 14 0-55 U/L Alkaline Phosphatase 104 40-136 U/L C-Reactive Protein High Sensitivity 2.13 H 0.00-0.50 MG/DL B-Type Natriuretic Peptide 26.2 <100.0 PG/ML Total Protein 7.1 6.4-8.2 GM/DL Albumin 3.8 3.2-4.5 GM/DL My Orders Orders - IMELDA ROBLEDO MOTOR POOL CLERK Cbc With Automated Diff (08/12/22 14:55) Comprehensive Metabolic Panel (08/12/22 14:55) Hs C Reactive Protein (08/12/22 14:55) Chest Pa/Lat (2 View) (08/12/22 14:55) Covid 19 Inhouse Test (08/12/22 14:55) Albuterol/Ipra Inhalation Soln (Duoneb I (08/12/22 15:15) Svn Small Volume Nebulizer (08/12/22 15:04) Bnp [place] (08/12/22 15:37) Medications Given in ED Current Medications Medications Dose Ordered Sig/Jesus Route Start Time Stop Time Status Last Admin Dose Admin Albuterol/ Ipratropium 3 ml ONCE ONCE INH 08/12/22 15:15 08/12/22 15:16 DC 08/12/22 15:09 3 ML Vital Signs/I&O 3/30/23 3/30/23 3/30/23 3/30/23 14:54 14:54 15:27 15:53 Temp 36.5 Pulse 79 82 Resp 20 20 B/P (MAP) 123/92 (102) 123/90 Pulse Ox 97 97 95 O2 Delivery Room Air Room Air Room Air Room Air Capillary Refill : Progress Note : Progress Note Patient examined in no acute distress. She does have increased effort but is in no acute distress. No accessory muscle use. Her oxygen saturation is 97% on room air. Remaining VSS. No complaints of ACS symptoms. Will obtain chest x-ray and basic labs to evaluate for pneumonia. Discussed that this is likely acute episode of her chronic bronchitis. Orders placed for DuoNeb treatment, will reevaluate lungs after treatment. Reported minimal improvement of symptoms. Chest x-ray negative for acute pathology, mild pulmonary congestion. We will treat with steroids and cover with doxycycline for chronic bronchitis with acute exacerbation. Prescription sent for albuterol 2 puffs every 4 hours as needed and can use Tessalon Perles every 8 hours as needed for cough. Treatment plan reviewed with patient and she is agreeable with plan. Instructed to return to the emergency department if she has any increased shortness of breath, fever, nausea or vomiting. Return for any new or concerning symptoms, verbalized understanding. Diagnostic Imaging Diagonstic Imaging: Xray Plain Films/CT/US/NM/MRI: chest Comments [facility] [place] NAME: PAULA SALAZAR [facility] REC#: [id number] PT STATUS: REG ER : 1970 PHYSICIAN: IMELDA ROBLEDO MOTOR POOL CLERK ADMIT DATE: 08/12/22/ER Draft Date of Exam:08/12/22 CHEST PA/LAT (2 VIEW) INDICATION: Shortness of breath. COMPARISON is made with prior exam of 07/23/2019. FINDINGS: The heart size is normal. There is mild venous congestion. No pleural effusion or pneumothorax. The mediastinum is unremarkable. IMPRESSION: Mild central pulmonary venous congestion. Dictated on workstation # [id number] Dict: 08/12/22 1531 Trans: 08/12/[address] [facility] [place] [id number] Interpreted by: ALY KELLOGG MD Electronically signed by: Departure Impression Primary Impression: Chronic bronchitis with acute exacerbation Disposition: HOME, SELF-CARE Condition: Improved Departure-Patient Inst. Decision time for Depature: 15:28 Referrals: [facility] (PCP/Family) Primary Care Physician Patient Instructions: Chronic Bronchitis (DC) Add. Discharge Instructions: Plan: 1. Take antibiotics and steroids as prescribed and complete full course even if you begin to feel better. Make sure you take steroids with food to prevent GI upset. 2. Use albuterol inhaler 2 puffs every 4 hours as needed for shortness of breath and wheezing. 3. Schedule follow-up with your primary care provider next week. 4. Return to the ER for any new, concerning, worsening symptoms. 5. Drink plenty of fluids to stay hydrated. Take cough medication as directed. Scripts Benzonatate (TESSALON PERLES) 100 Mg Capsule 200 MG PO Q8H PRN for COUGH, #20 CAP 0 Refills Prov: IMELDA ROBLEDO MOTOR POOL CLERK 08/12/22 Doxycycline Hyclate (Doxycycline Hyclate) 100 Mg Tablet 100 MG PO BID for 10 Days, #20 TAB 0 Refills Prov: IMELDA ROBLEDO MOTOR POOL CLERK 08/12/22 Prednisone (Prednisone) 50 Mg Tab 50 MG PO DAILY for 5 Days, #5 TAB 0 Refills Prov: IMELDA ROBLEDO MOTOR POOL CLERK 08/12/22 Albuterol Sulfate (VENTOLIN HFA) 1 Puff Puff 2 PUFF INH Q4H for 30 Days, #1 EA 0 Refills 1 PUFF = 90 MCG Prov: IMELDA ROBLEDO MOTOR POOL CLERK 08/12/22 IMELDA ROBLEDO MOTOR POOL CLERK Aug 12, 2022 14:58
[2022-08-12 15:15] LABS: BASOPHILS # (AUTO) 0.1 10^3/uL (0.0-0.1); BASOPHILS % (AUTO) 1 % (0-10); EOSINOPHILS # (AUTO) 0.1 10^3/uL (0.0-0.3); EOSINOPHILS % (AUTO) 1 % (0-10); HEMATOCRIT 43 % (35-52); HEMOGLOBIN 13.8 g/dL (11.5-16.0); LYMPHOCYTES # (AUTO) 2.1 X 10^3 (1.0-4.0); LYMPHOCYTES % (AUTO) 19 % (12-44); MEAN CORPUSCULAR HEMOGLOBIN 28 pg (25-34); MEAN CORPUSCULAR HGB CONC 32 g/dL (32-36); MEAN CORPUSCULAR VOLUME 87 fL (80-99); MONOCYTES # (AUTO) 1.1 X 10^3 (0.0-1.0); MONOCYTES % (AUTO) 10 % (0-12); NEUTROPHILS # (AUTO) 7.9 X 10^3 (1.8-7.8); NEUTROPHILS % (AUTO) 70 % (42-75); PLATELET COUNT 246 10^3/uL (130-400); WHITE BLOOD COUNT 11.3 10^3/uL (4.3-11.0)
[2022-08-12] MEDS ORDERED: RT-ALBUTEROL/IPRATROPIUM 3 ML (DUONEB) VIAL INH ONE (15:15)
[2022-08-12 15:24] LABS: ALBUMIN 3.8 GM/DL (3.2-4.5); POTASSIUM 3.8 MMOL/L (3.6-5.0)
[2022-08-12 15:25] LABS: CALCIUM 9.4 MG/DL (8.5-10.1)
[2022-08-12 15:26] LABS: TOTAL PROTEIN 7.1 GM/DL (6.4-8.2)
[2022-08-12 15:28] LABS: BILIRUBIN,TOTAL 0.4 MG/DL (0.1-1.0)
[2022-08-12 15:30] LABS: CREATININE SERUM 0.73 MG/DL (0.60-1.30)
--- NOTE | 2022-08-12 15:34 | Diagnostic Imaging Report ---
INDICATION: Shortness of breath. COMPARISON is made with prior exam of 07/23/2019. FINDINGS: The heart size is normal. There is mild venous congestion. No pleural effusion or pneumothorax. The mediastinum is unremarkable. IMPRESSION: Mild central pulmonary venous congestion. Dictated by: Dictated on workstation # [id number]
[2022-08-12] MEDS ORDERED: PRD50T PO (15:36)
[2022-08-12] MEDS ORDERED: RT-ALBUINH INH (15:36)
[2022-08-12] MEDS ORDERED: DOXY100T2 PO (15:36)
[2022-08-12] MEDS ORDERED: BENZ100C18 PO (15:43)
[2022-08-12 15:53] VITALS: BP 123/90
== END 2022-08-12 15:53 | disposition home or self-care (01) ==
LOC: EDUNIT# 14:51 → ER 14:53
DX: J44.1 Chronic obstructive pulmonary disease with (acute) exacerbation (principal); F41.9 Anxiety disorder, unspecified; F32.A Depression, unspecified; E66.01 Morbid (severe) obesity due to excess calories; F17.210 Nicotine dependence, cigarettes, uncomplicated; Z68.39 Body mass index [BMI] 39.0-39.9, adult; Z88.0 Allergy status to penicillin; Z79.899 Other long term (current) drug therapy; Z20.822 Contact with and (suspected) exposure to COVID-19
CPT/HCPCS: 36415; 71046; 80053; 83880; 85025; 86141; 87636; 94640

== ENCOUNTER 2022-08-24 15:21 | Emergency (ER) | payer MEDICAID ==
[~2022-08-24] VITALS: Ht 168 cm; Wt 104.0 kg
[~2022-08-24 15:21] MED LIST changes: +PRD50T PO
--- NOTE | 2022-08-24 16:16 | ED General ---
General Chief Complaint: General Problems/Pain Stated Complaint: GENERAL PAIN Nursing Triage Note: PT STATES PAIN IN UPPER RT BACK "WHERE SHE HAD LUNG SURGERY." SURGERY WAS 25 YRS AGO, PT WAS HERE LAST WEEK AND DX WITH BRONCHITIS Source of Information: Patient, Other ([facility] staff) Exam Limitations: No Limitations History of Present Illness Date Seen by Provider: Aug 24, 2022 Time Seen by Provider: 15:23 Initial Comments 52-year-old female with methamphetamine use disorder coming in with [facility] staff. She is currently homeless, they found her outside "tweaking". They wanted to bring her to the ER to make sure things were okay, she has been using methamphetamines. She has had chronic "lung pain". Labs are okay with plate today which has not changed in months to years Allergies and Home Medications Allergies Coded Allergies: Penicillins (Unverified Allergy, Mild, Has had Ancef w/o issue, 07/22/19) dimenhydrinate (Verified Allergy, Mild, 07/22/19) prochlorperazine (Unverified Allergy, Mild, 07/22/19) Uncoded Allergies: ANTI-EMETICS (Allergy, Mild, 03/26/08) ANTI-NAUSEA MEDICATIONS EXCEPT DRAMAMINE (Allergy, Mild, MAKE HER HAVE ANXIETY ATTACKS, 08/29/08) ANTIEMETICS (Allergy, Mild, 12/09/08) NAUSEA MEDS (Allergy, Mild, 12/01/08) Patient Home Medication List Home Medication List Reviewed: Yes Albuterol Sulfate (Ventolin Hfa) 1 Puff Puff, 2 PUFF INH Q4H Prescribed by: IMELDA ROBLEDO on 08/12/22 1536 Benzonatate (Tessalon Perles) 100 Mg Capsule, 200 MG PO Q8H PRN for COUGH Prescribed by: IMELDA ROBLEDO on 08/12/22 1543 Buspirone HCl (Buspirone HCl) 15 Mg Tablet, 15 MG PO BID, (Reported) Entered as Reported by: ROSE CISSE on 05/23/19 1316 Clindamycin HCl (Clindamycin HCl) 300 Mg Capsule, 600 MG PO TID Prescribed by: ONESIMO MOHAN on 06/19/19 1151 Clonidine HCl (Clonidine HCl) 0.1 Mg Tablet, 0.1 MG PO TID, (Reported) Entered as Reported by: ROSE CISSE on 05/23/19 1316 Cyclobenzaprine HCl (Cyclobenzaprine HCl) 10 Mg Tablet, 10 MG PO TID PRN for MUSCLE SPASMS, (Reported) Entered as Reported by: ROSE CISSE on 05/23/19 1316 Diphenhydramine HCl (Benadryl) 25 Mg Capsule, 25 MG PO Q8H PRN for ITCHING, (Reported) Entered as Reported by: ROSE CISSE on 05/23/19 1455 Doxycycline Hyclate (Doxycycline Hyclate) 100 Mg Tablet, 100 MG PO BID Prescribed by: TAE CUNHA on 02/15/21 1259 Doxycycline Hyclate (Doxycycline Hyclate) 100 Mg Tablet, 100 MG PO BID Prescribed by: IMELDA ROBLEDO on 08/12/22 1536 Famotidine (Acid Preanalytics Team Lead (FAMOTIDINE)) 20 Mg Tablet, 20 MG PO DAILY PRN for HEARTBURN, (Reported) Entered as Reported by: ROSE CISSE on 05/23/19 1455 Gabapentin (Gabapentin) 800 Mg Tablet, 800 MG PO TID, (Reported) Entered as Reported by: ROSE CISSE on 05/23/19 1316 Hydrocodone Bit/Acetaminophen (Lortab 5 Mg Tablet) 1 Tab Tab, 1 TAB PO Q4-6HR Prescribed by: ONESIMO MOHAN on 06/19/19 1151 Hydrocodone/Acetaminophen (Hydrocodone-Acetamin 5-325 mg) 1 Each Tablet, 1 TAB PO Q4H PRN for PAIN-MODERATE (5-7) Prescribed by: TAE CUNHA on 02/15/21 1300 Hydroxyzine Pamoate (Hydroxyzine Pamoate) 25 Mg Capsule, 25 MG PO TID PRN for ANXIETY, (Reported) Entered as Reported by: ROSE CISSE on 05/23/19 1316 Metronidazole (Flagyl) 500 Mg Tablet, 500 MG PO TID Prescribed by: TAE CUNHA on 02/15/21 1259 Oxybutynin Chloride (Oxybutynin Chloride) 5 Mg Tablet, 5 MG PO BID, (Reported) Entered as Reported by: ROSE CISSE on 05/23/19 1316 Paroxetine HCl (Paroxetine HCl) 40 Mg Tablet, 40 MG PO DAILY, (Reported) Entered as Reported by: ROSE CISSE on 05/23/19 1450 Prednisone (Prednisone) 50 Mg Tab, 50 MG PO DAILY Prescribed by: IMELDA ROBLEDO on 08/12/22 1536 Trazodone HCl (Trazodone HCl) 100 Mg Tablet, 200 MG PO HS, (Reported) Entered as Reported by: ROSE CISSE on 05/23/19 1316 Review of Systems Review of Systems Constitutional: No fever EENTM: no symptoms reported Respiratory: see HPI Cardiovascular: see HPI Gastrointestinal: no symptoms reported Genitourinary: no symptoms reported Musculoskeletal: no symptoms reported Past Pucyubh-Hmrpji-Ntowwf Hx Patient Social History Tobacco Use?: Yes Tobacco type used: Cigarettes Smoking Status: Current Everyday Smoker Substance use?: Yes Substance type: Methamphetamine Additional substance use comme: "METH YESTERDAY," 08/24/22 Substance frequency: Couple times a week Alcohol Use?: No Immunizations Up To Date Tetanus Booster (TDap): Less than 5yrs PED Vaccines UTD: Yes First/Initial COVID19 Vaccinat: "TWO SHOTS" Second COVID19 Vaccination Zak: "TWO SHOTS" Third COVID19 Vaccination Date: "TWO SHOTS" Seasonal Allergies Seasonal Allergies: Yes Past Medical History Surgery/Hospitalization HX: TOTAL HYSTER, APPENDECTOMY, TONSILS AND ADNOIDS, LUNG SURGERY Surgeries: Yes (I&D) Appendectomy, Section, Hysterectomy, Oophorectomy, Orthopedic, Tonsillectomy Respiratory: Yes (EMPYEMA--S/P LUNG SURGERY FOR REMOVAL) Asthma, Chronic Bronchitis Currently Using CPAP: No Currently Using BIPAP: No Cardiac: Yes Hypertension Neurological: Yes Seizure Disorder Reproductive Disorders: Yes (MULTIPLE OVARIAN CYSTS. 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 Sexually Transmitted Disease: Yes (HPV, GONORRHEA) HIV/AIDS: No Genitourinary: No Gastrointestinal: Yes Gastroesophageal Reflux, Irritable Bowel Musculoskeletal: Yes Degenerate Disk Disease, Chronic Back Pain Endocrine: Yes (MORBID OBESITY) HEENT: No Loss of Vision: Denies Hearing Impairment: Denies Cancer: No Psychosocial: Yes Sleep Difficulties, Anxiety, Depression Integumentary: Yes (spider bite) Blood Disorders: No Family Medical History Blood clots G8 BROTHER G8 SISTER Diabetes mellitus 19 MOTHER Headache disorder G8 SISTER Myocardial infarction 19 MOTHER STROKE 19 MOTHER G8 BROTHER CAD Over 55 Years Old, DVT/PE, Diabetes, Stroke, Other Conditions/Hx Physical Exam Vital Signs Vital Signs - First Documented 08/24/22 15:41 Temp 36.9 Pulse 90 Resp 24 B/P (MAP) 135/77 (96) Pulse Ox 96 O2 Delivery Room Air Capillary Refill : Less Than 3 Seconds Height, Weight, BMI Height: 5'6.00" Weight: 235lbs. 0oz. [id number]; 36.00 BMI Method:Stated General Appearance: WD/WN, Other (Patient mildly agitated, constantly moving and twitching around) Eyes: Bilateral Eye Normal Inspection, Bilateral Eye PERRL, Bilateral Eye EOMI HEENT: PERRL/EOMI, Normal ENT Inspection, Pharynx Normal Neck: Full Range of Motion, Normal Inspection, Non Tender, Supple Respiratory: Chest Non Tender, Lungs Clear, Normal Breath Sounds, No Accessory Muscle Use, No Respiratory Distress Cardiovascular: Regular Rate, Rhythm, No Edema, Normal Peripheral Pulses Gastrointestinal: Normal Bowel Sounds, Non Tender, Soft; No Distended, No Guarding Back: Normal Inspection, No CVA Tenderness, No Vertebral Tenderness Extremity: Normal Capillary Refill, Normal Inspection, Normal Range of Motion, Non Tender, No Calf Tenderness, No Pedal Edema Neurologic/Psychiatric: Alert, Oriented x3, No Motor/Sensory Deficits, Normal Mood/Affect Skin: Normal Color, Warm/Dry Progress/Results/Core Measures Suspected Sepsis SIRS Temperature: Pulse: 90 Respiratory Rate: 24 Blood Pressure 135 /77 Mean: 96 Results/Orders My Orders Orders - CURTIS AYOUB MD Chest Pa/Lat (2 View) (08/24/22 16:09) Vital Signs/I&O 08/24/22 15:41 Temp 36.9 Pulse 90 Resp 24 B/P (MAP) 135/77 (96) Pulse Ox 96 O2 Delivery Room Air Capillary Refill : Less Than 3 Seconds Blood Pressure Mean: 96 Progress Note : Progress Note 52-year-old female with above history coming in due to not acting normally. ABCs were intact and vitals were stable on presentation. Patient clinically appears like she is intoxicated on methamphetamines. Chest x-ray ordered due to the "lung pain" that is been going on for so long. On my interpretation no obvious pneumonia or pneumothorax. Appears similar to prior chest x-ray. Symptoms consistent with methamphetamine intoxication. She is otherwise able to take care of herself and ambulating. I believe she is stable for discharge with outpatient follow-up. She was sent home with strict return precautions. She was discharged with the [facility] worker Departure Impression Primary Impression: Methamphetamine use Disposition: 01 HOME, SELF-CARE Condition: Stable Departure-Patient Inst. Decision time for Depature: 16:28 Referrals: [facility] (PCP/Family) Primary Care Physician Patient Instructions: Chronic Pain (DC), Drug Misuse and Addiction (DC) Add. Discharge Instructions: The symptoms you are exhibiting are consistent with methamphetamine use. Your chest x-ray is clear, were not seeing any evidence of empyema or other concerns that you have had previously. Please follow back up with your regular doctor, drink plenty of fluids, and get rest. CURTIS AYOUB MD Aug 24, 2022 16:16
--- NOTE | 2022-08-24 16:31 | Diagnostic Imaging Report ---
CLINICAL INDICATION: Patient with chest pain. EXAM: Chest x-ray, PA and lateral views. COMPARISON: Chest x-ray dated 08/12/2022. FINDINGS: Again seen is mild cardiomegaly. There is no significant pulmonary vascular congestion. Increased lung markings throughout both lungs are again seen. There are patchy airspace opacities in both lung bases, which have slightly decreased in the interim, which may represent atelectasis versus infiltrates. There is no pleural effusion or pneumothorax. There are small degenerative spurs involving the thoracic spine. IMPRESSION: 1: There is mild bibasilar atelectasis versus infiltrates which have slightly improved in the interim. 2: There is cardiomegaly with no significant pulmonary vascular congestion. Dictated by: Dictated on workstation # [id number]
[2022-08-24 16:42] VITALS: BP 137/74
[2022-08-24] MEDS ORDERED: IBUPROFEN 600 MG (MOTRIN) TAB PO ONE (16:45)
== END 2022-08-24 16:42 | disposition home or self-care (01) ==
LOC: EDUNIT# 15:21 → ER 15:24
DX: F15.90 Other stimulant use, unspecified, uncomplicated (principal); E66.01 Morbid (severe) obesity due to excess calories; F17.210 Nicotine dependence, cigarettes, uncomplicated; Z68.36 Body mass index [BMI] 36.0-36.9, adult
CPT/HCPCS: 71046